=== PATIENT | female | born 1955 | race Caucasian/White ===

== ENCOUNTER → 2020-04-14 12:07 | Outpatient (BNVA) | payer MEDICAID, SELFPAY | PROVIDERS: PCP Internal Medicine; Visit Provider Physician Assistant ==

== ENCOUNTER → 2020-07-09 13:02 | Outpatient (BNVA) | payer MEDICARE, MEDICAID, SELFPAY | PROVIDERS: PCP Internal Medicine; Visit Provider Internal Medicine | DX: Z13.89 Encounter for screening for other disorder (principal) | CPT/HCPCS: Q3014 ==

== ENCOUNTER 2021-01-27 10:02 | Outpatient (REF) | payer MEDICARE, MEDICAID, SELFPAY ==
[2021-01-27 12:25] LABS: Alanine Aminotransferase 24 U/L (0-31); Albumin Level 4.4 g/dL (3.5-5.0); Alkaline Phosphatase 113 U/L (39-117); Anion Gap 15 (12-20); Aspartate Amino Transferase 24 U/L (5-31); Bilirubin Total 0.3 mg/dL (0.0-1.0); Blood Urea Nitrogen 36 mg/dL (9-16); Calcium 9.6 mg/dL (8.4-10.2); Carbon Dioxide 24 mmol/L (22-29); Chloride 108 mmol/L (96-108); Cholesterol 185 mg/dL; Estimated Glomerular Filt Rate 30; Gamma Glutamyl Transpeptidase 78 U/L (7-33); Glucose Random 281 mg/dL (60-115); HDL Cholesterol 47 mg/dL; LDL Cholesterol Calculated 108 mg/dl; Phosphorus 3.1 mg/dL (2.7-4.5); Potassium 4.8 mmol/L (3.3-5.1); Sodium 142 mmol/L (135-145); Total Protein 7.1 g/dL (6.5-8.0); Triglycerides 152 mg/dL
[2021-01-27 12:40] LABS: Estimated Average Glucose 146 mg/dL; Hemoglobin A1C 148.4518 umol/L; Hemoglobin A1c % 6.7 %
[2021-01-27 12:45] LABS: Vitamin D 25-OH Total 26.2 ng/mL (>30)
[2021-01-27 12:46] LABS: Ferritin 1089 ng/mL (10-250); Thyroid Stimulating Hormone 1.17 uIU/mL (0.32-4.0)
[2021-01-29 13:30] LABS: LDL Cholesterol Direct 119 mg/dL (<100)
[2021-01-29 13:41] LABS: Calcium (PTHI) 9.8 mg/dL (8.6-10.4); PTHI 146 pg/mL (14-64)
[2021-01-31 20:03] LABS: Prot Elec - Alpha1 0.3 g/dL (0.2-0.3); Prot Elec - Alpha2 0.9 g/dL (0.5-0.9); Prot Elec - Beta 1 0.4 g/dL (0.4-0.6); Prot Elec - Beta 2 0.4 g/dL (0.2-0.5); Prot Elec - Gamma 0.9 g/dL (0.8-1.7); Prot Elec - Total Protein 6.9 g/dL (6.1-8.1)
[2021-02-01 16:25] LABS: Transglutaminase IgA <1.0 U/mL
== END 2021-01-27 10:03 | disposition home or self-care (01) ==
LOC: HO.LAB 10:02
PROVIDERS: Physician Assistant; PCP Internal Medicine; Visit Provider Internal Medicine
DX: E11.65 Type 2 diabetes mellitus with hyperglycemia (principal); E78.5 Hyperlipidemia, unspecified; E83.52 Hypercalcemia; E55.9 Vitamin D deficiency, unspecified; D64.9 Anemia, unspecified; K59.09 Other constipation; I10 Essential (primary) hypertension; R19.7 Diarrhea, unspecified; Z79.899 Other long term (current) drug therapy; Z79.4 Long term (current) use of insulin
CPT/HCPCS: 36415; 80053; 80061; 82043; 82306; 82728; 82947; 82977; 83036; 83516; 83721; 83970; 84100; 84165; 84443; 99212

== ENCOUNTER 2021-01-29 10:08 | Outpatient (REF) | payer MEDICARE, MEDICAID, SELFPAY ==
--- NOTE | ~2021-01-29 | MM_ITS ---
EXAMINATION: MM SCREENING DIGITAL BREAST TOMOSYNTHESIS, BILATERAL CLINICAL INFORMATION: Screening. Asymptomatic. The lifetime risk of breast cancer based on the Tyrer-Cuzick Model is 4%. COMPARISON: Mammography: 01/08/2019, 12/26/2017, 11/18/2016 TECHNIQUE: Digital breast tomosynthesis is performed in both the craniocaudal and mediolateral oblique views along with computer-aided detection (CAD). Synthesized 2D images are generated from the tomosynthesis. Additional right CC view is provided. FINDINGS: There are scattered areas of fibroglandular density (ACR BI-RADS breast composition Category b). There are no significant masses, abnormal calcifications, or other abnormalities. Parenchymal pattern is similar to prior studies. No developing density. No significant changes. The axilla and skin contours are unremarkable. MM/MM tomosynthesis screening BI IMPRESSION: No mammographic evidence of malignancy. ASSESSMENT: BI-RADS 1: Negative RECOMMENDATION: Routine annual mammography screening. This patient's information was entered into a reminder system with a target due date for their next mammogram.
== END 2021-01-29 10:09 | disposition home or self-care (01) ==
LOC: HO.MAMMO 10:08
PROVIDERS: Visit Provider Internal Medicine
DX: Z12.31 Encounter for screening mammogram for malignant neoplasm of breast (principal)
CPT/HCPCS: 77063; 77067

== ENCOUNTER 2021-04-28 07:12 | Outpatient (REF) | payer MEDICARE, MEDICAID, SELFPAY ==
[2021-04-28 08:58] LABS: Estimated Average Glucose 137 mg/dL; Hemoglobin A1c % 6.4 %
[2021-04-28 09:06] LABS: Alanine Aminotransferase 14 U/L (0-31); Albumin Level 4.3 g/dL (3.5-5.0); Alkaline Phosphatase 120 U/L (39-117); Anion Gap 13 (12-20); Aspartate Amino Transferase 17 U/L (5-31); Blood Urea Nitrogen 36 mg/dL (9-16); Calcium 9.8 mg/dL (8.4-10.2); Carbon Dioxide 26 mmol/L (22-29); Chloride 109 mmol/L (96-108); Cholesterol 183 mg/dL; Estimated Glomerular Filt Rate 35; Glucose Random 148 mg/dL (60-115); HDL Cholesterol 42 mg/dL; LDL Cholesterol Calculated 105 mg/dl; Phosphorus 3.7 mg/dL (2.7-4.5); Potassium 5.2 mmol/L (3.3-5.1); Sodium 143 mmol/L (135-145); Total Protein 6.9 g/dL (6.5-8.0); Triglycerides 184 mg/dL
[2021-04-28 09:14] LABS: Bilirubin Total 0.4 mg/dL (0.0-1.0)
[2021-04-28 09:38] LABS: Vitamin D 25-OH Total 28.5 ng/mL (>30)
[2021-04-28 09:41] LABS: Microalbum/Creatinine Ratio Ur 74.3 ug/mg cr
[2021-04-29 15:07] LABS: Calcium (PTHI) 9.8 mg/dL (8.6-10.4); PTHI 172 pg/mL (14-64)
[2021-04-30 08:27] LABS: LDL Cholesterol Direct 109 mg/dL (<100)
== END 2021-04-28 07:13 | disposition home or self-care (01) ==
LOC: HO.LAB 07:12
PROVIDERS: PCP Internal Medicine; Visit Provider Internal Medicine
DX: E11.65 Type 2 diabetes mellitus with hyperglycemia (principal); E83.52 Hypercalcemia; Z79.4 Long term (current) use of insulin
CPT/HCPCS: 36415; 80053; 80061; 82043; 82306; 83036; 83721; 83970; 84100

== ENCOUNTER 2021-05-01 09:13 | Outpatient (REF) | payer MEDICARE, MEDICAID, SELFPAY ==
[2021-05-01 10:44] LABS: Creatinine Urine 72.48 mg/dL
[2021-05-01 10:45] LABS: Anion Gap 12 (12-20); Blood Urea Nitrogen 28 mg/dL (9-16); Calcium 10.3 mg/dL (8.4-10.2); Carbon Dioxide 29 mmol/L (22-29); Chloride 108 mmol/L (96-108); Estimated Glomerular Filt Rate 39; Glucose Random 142 mg/dL (60-115); Potassium 5.6 mmol/L (3.3-5.1); Sodium 143 mmol/L (135-145)
== END 2021-05-01 09:14 | disposition home or self-care (01) ==
LOC: HO.LAB 09:13
PROVIDERS: PCP Internal Medicine; Visit Provider Internal Medicine
DX: E11.65 Type 2 diabetes mellitus with hyperglycemia (principal); Z79.4 Long term (current) use of insulin
CPT/HCPCS: 36415; 80048

== ENCOUNTER 2021-05-06 12:01 | Emergency (ER) | payer MEDICARE, MEDICAID, SELFPAY ==
[2021-05-06 12:26] VITALS: BP 159/66; PULSE 85; RESP 17; TEMP 36.4; O2SAT 99; BMI 41.9
--- NOTE | 2021-05-06 12:33 | ECG_ITS ---
Test Reason : HIGH POTASSIUM Blood Pressure : / mmHG Vent. Rate : 078 BPM Atrial Rate : 078 BPM P-R Int : 158 ms QRS Dur : 072 ms QT Int : 364 ms P-R-T Axes : 025 054 027 degrees QTc Int : 414 ms Normal sinus rhythm Normal ECG When compared with ECG of 01-JUL-2018 11:43, No significant change was found Referred By: Generic ED Physician Electronically Signed By:VU MALLOY
[2021-05-06 13:02] LABS: Anion Gap 12 (12-20); Blood Urea Nitrogen 36 mg/dL (9-16); Calcium 9.8 mg/dL (8.4-10.2); Carbon Dioxide 26 mmol/L (22-29); Chloride 109 mmol/L (96-108); Creatinine Clr Calc Pharmacy 32.6; Estimated Glomerular Filt Rate 31; Glucose Random 152 mg/dL (60-115); Potassium 5.4 mmol/L (3.3-5.1); Sodium 142 mmol/L (135-145)
[2021-05-06 17:21] VITALS: BP 150/64; PULSE 72; RESP 16; O2SAT 96
--- NOTE | 2021-05-06 17:22 | ED_ITS ---
HPI - Recheck/Abnormal Lab/Rx General Chief Complaint: Recheck/Abnormal Lab/Rx Stated Complaint: abnormal labs Time Seen by Provider: 05/06/21 15:35 Source: patient Mode of arrival: ambulatory Limitations: no limitations History of Present Illness HPI narrative: Patient diabetic with CKD creatinine in the range of 1.5 been drinking lemon juice every day noticed to have potassium of 5.4 by diabetic specialist hence came to the ER patient denies any complain little constipated last bowel movement was 2 days ago Related Data Home Medications Medication Instructions Recorded Confirmed albuterol sulfate 90 mcg/actuation 2 puff INHALATION Q4-6H PRN 12/24/19 01/27/21 aerosol inhaler (Ventolin HFA) aspirin 81 mg tablet 81 mg PO DAILY 12/24/19 01/27/21 atorvastatin 80 mg tablet 80 mg PO BEDTIME 12/24/19 01/27/21 ferrous sulfate 325 mg (65 mg 325 mg PO TID 12/24/19 01/27/21 iron) tablet furosemide 20 mg tablet 20 mg PO QAM 12/24/19 01/27/21 metoprolol tartrate 25 mg tablet 25 mg PO BID 12/24/19 01/27/21 omeprazole 20 mg tablet,delayed 20 mg PO DAILY 12/24/19 01/27/21 release alcohol swabs 1 pad TOPICAL TID 07/09/20 01/27/21 fluticasone propionate 110 1 puff INHALATION BID PRN 07/09/20 01/27/21 mcg/actuation HFA aerosol inhaler (Flovent HFA) loratadine 10 mg tablet 10 mg PO QAM 07/09/20 01/27/21 pen needle, diabetic 32 gauge x #50 ea 07/09/20 01/27/21/32 sodium zirconium cyclosilicate 5 5 g PO 2XW 07/09/20 01/27/21 gram oral powder packet clopidogrel 75 mg tablet 75 mg PO DAILY 01/27/21 01/27/21 insulin glargine 100 unit/mL (3 60 unit SUBCUT DAILY 01/27/21 01/27/21 mL) subcutaneous pen (Lantus Solostar U-100 Insulin) insulin lispro 100 unit/mL See Rx Instructions SUBCUT 01/27/21 01/27/21 subcutaneous pen (Humalog KwikPen .COMPLEX ml (U-100) Insulin) Previous Rx's Medication Instructions Recorded bisacodyl 5 mg tablet,delayed 10 mg PO ONCE 1 Days #2 tab 04/14/20 release (Dulcolax (bisacodyl)) pioglitazone 15 mg tablet 15 mg PO DAILY 30 Days #30 tab 09/07/20 docusate sodium 100 mg capsule 200 mg PO BEDTIME #60 cap 10/08/20 (Colace) blood-glucose meter (FreeStyle #1 ea 01/04/21 Gifford Lite) cholecalciferol (vitamin D3) 25 25 mcg PO DAILY 30 Days #30 cap 02/01/21 mcg (1,000 unit) capsule dulaglutide 1.5 mg/0.5 mL 1.5 mg (0.5 mL) SUBCUT QWEEK 30 02/09/21 subcutaneous pen injector Days #2.5 ml (Trulicity) blood sugar diagnostic (FreeStyle #100 ea 02/16/21 Lite Strips) lancets 33 gauge (TRUEplus Lancets) #100 ea 02/16/21 Allergies Allergy/AdvReac Type Severity Reaction Status Date / Time morphine [Morphine] Allergy Intermediate TACHYCARDIA, Verified 01/27/21 10:12 ANXIETY oxycodone [Percocet] Allergy Intermediate Palpitation Verified 01/27/21 10:12 s prednisone [PREDNISONE] AdvReac Intermediate ANXIETY Verified 01/27/21 10:12 Review of Systems Review of Systems: Yes all other systems are reviewed and are negative [facility] Past Medical History Medical History Anemia Angina pectoris Asthma CAD (coronary artery disease) Chronic constipation Diabetes GERD (gastroesophageal reflux disease) HLD (hyperlipidemia) HTN (hypertension) HTN (hypertension) Hypercalcemia On beta anurag at home Sleep apnea T2DM (type 2 diabetes mellitus) Vitamin D deficiency Surgical History H/O colonoscopy History of esophagogastroduodenoscopy (EGD) Hx of cholecystectomy Hx of heart artery stent Family History Family History Father Liver problem Mother Diabetes Obesity Social History Social History Household Members Other:: With Alcohol intake: never Patient Tobacco Use Status: Never used Tobacco Advance Directives: No Advance Directives Information Provided: No Current occupational status: disabled Physical Exam Vital Signs: Vital Signs: Last Vital Signs Temp 97.6 F 05/06/21 12:26 Pulse 72 05/06/21 17:21 Resp 16 05/06/21 17:21 BP 150/64 H 05/06/21 17:21 Pulse Ox 96 05/06/21 17:21 BMI result Body Mass Index 41.9 Appearance: Alert. Oriented X3. No acute distress. ENT: Pharynx normal. Oral Mucosa moist Neck: Normal inspection. Neck supple. CVS: Normal heart rate and rhythm. Pulses normal. Respiratory: No respiratory distress. Equal air entry bilateral, no wheezing/rales/rhonchi Abdomen: Soft and nontender. Bowel sounds are present, no mass palpable, no CVA tenderness Skin: Skin warm and dry. Normal skin color. Normal skin turgor. Extremities: No lower extremity edema. No calf tenderness Neuro: Oriented X 3. No motor deficit. No sensory deficit.No cerebellar signs , cranial nerves II-XII intact MDM - Recheck/Abnormal Lab/Rx MDM Narrative Medical decision making narrative: Patient with CKD drinking lemon juice every day likely the cause of hyperkalemia without any EKG changes will give her Kayexalate advised not to eat or drink any food containing high potassium Lab Data Attestation: I reviewed the patient's lab results. Result diagrams: 05/06/21 12:36 Labs: Lab Results 05/06/21 Range/Units 12:36 Sodium 142 (135-145) mmol/L Potassium 5.4 H (3.3-5.1) mmol/L Chloride 109 H (96-108) mmol/L Carbon Dioxide 26 (22-29) mmol/L Anion Gap 12 (12-20) BUN 36 H (9-16) mg/dL Creatinine 1.65 H (0.5-1.4) mg/dL Estim Creat Clear Calc 32.6 Estimated GFR 31 Random Glucose 152 H (60-115) mg/dL Calcium 9.8 (8.4-10.2) mg/dL ECG Data Attestation: I personally reviewed and interpreted this ECG as follows: Interpretation: Normal sinus rhythm heart rate 78 beats per minute normal intervals normal axis impression normal EKG Discharge Plan Discharge Clinical Impression: Acute hyperkalemia Patient Disposition: Home, Self-Care Instructions: Potassium Content of Foods List (ED), Hyperkalemia (ED) Additional Instructions: Stop drinking Lemon juice and food containing high potassium And follow up with your PCP on 05/10 for repeat potassium check Prescriptions: No Action pioglitazone 15 mg tablet 15 mg PO DAILY 30 Days Qty: 30 11RF docusate sodium [Colace] 100 mg capsule 200 mg PO BEDTIME Qty: 60 5RF (DME) blood-glucose meter [FreeStyle Gifford Lite] Kit See Rx Instructions .Route Qty: 1 0RF Rx Instructions: As directed cholecalciferol (vitamin D3) 25 mcg (1,000 unit) capsule 25 mcg PO DAILY 30 Days Qty: 30 11RF Trulicity 1.5 mg/0.5 mL pen injector 1.5 mg subcut QWEEK 30 Days Qty: 2.5 11RF (DME) FreeStyle Lite Strips Strip See Rx Instructions .Route Qty: 100 11RF Rx Instructions: As directed to test blood sugar 3-4 times a day (DME) lancets [TRUEplus Lancets] 33 gauge misc See Rx Instructions .Route Qty: 100 11RF Rx Instructions: As directed to test blood sugar 3-4 times a day atorvastatin 80 mg Tablet 80 mg PO BEDTIME 0RF ferrous sulfate 325 mg (65 mg iron) Tablet 325 mg PO TID 0RF aspirin 81 mg Tablet 81 mg PO DAILY 0RF furosemide 20 mg Tablet 20 mg PO QAM 0RF albuterol sulfate [Ventolin HFA] 90 mcg/actuation Hfa Aerosol Inhaler 2 puff INHALATION Q4-6H PRN (Reason: Shortness Of Breath) 0RF metoprolol tartrate 25 mg Tablet 25 mg PO BID 0RF omeprazole 20 mg Tablet,Delayed Release (Dr/Ec) 20 mg PO DAILY 0RF Flovent HFA 110 mcg/actuation HFA aerosol inhaler 1 puff INHALATION BID PRN0RF (DME) pen needle, diabetic 32 gauge x 5/32 needle See Rx Instructions ea .ROUTE QID Qty: 50 0RF Rx Instructions: As directed alcohol swabs Pads, Medicated 1 pad topical TID 0RF Lokelma 5 gram powder in packet 5 g PO 2XW 0RF loratadine 10 mg tablet 10 mg PO QAM 0RF bisacodyl [Dulcolax (bisacodyl)] 5 mg tablet,delayed release (DR/EC) 10 mg PO ONCE 1 Days Qty: 2 0RF Rx Instructions: Take 2 tablets by mouth at 12:00pm the day before your procedure. clopidogrel 75 mg tablet 75 mg PO DAILY 0RF Lantus Solostar U-100 Insulin 100 unit/mL (3 mL) insulin pen 60 unit subcut DAILY 0RF insulin lispro [Humalog KwikPen Insulin] 100 unit/mL insulin pen See Rx Instructions subcut .COMPLEX 0RF Rx Instructions: 12 Units subcut before meals; Interventions: ED Discharge Assessment Last Done: 05/06/21 18:04 Discharge Date/Time: 05/06/21 18:04
--- NOTE | 2021-05-06 17:23 | PC.NURSE ---
20 ga iv est r ac pt is in nsr in lead 2
[2021-05-06] MEDS: Sodium Polystyrene Sulfon/Sorb 15 GM/60 ML ORAL.SUSP 30 GM PO (17:51)
== END 2021-05-06 18:04 | disposition home or self-care (01) ==
PROVIDERS: Emergency Provider Internal Medicine; PCP Internal Medicine
DX: E87.5 Hyperkalemia (principal); E11.22 Type 2 diabetes mellitus with diabetic chronic kidney disease; I12.9 Hypertensive chronic kidney disease with stage 1 through stage 4 chronic kidney disease, or unspecified chronic kidney disease; N18.9 Chronic kidney disease, unspecified; E78.5 Hyperlipidemia, unspecified; Z79.02 Long term (current) use of antithrombotics/antiplatelets; Z79.4 Long term (current) use of insulin
CPT/HCPCS: 36415; 80048; 93005; 99283; 99284

== ENCOUNTER 2021-08-19 14:34 | Outpatient (REF) | payer OTHER, MEDICAID, SELFPAY ==
[2021-08-19 15:24] LABS: Hematocrit 35.6 % (37.0-47.0); Hemoglobin 11.4 g/dl (12.0-16.0); Mean Corpuscular Hemoglobin 29.6 pg (27.0-33.0); Mean Corpuscular Volume 92.5 fL (80.0-98.0); Mean Platelet Volume 11.1 fL (9.4-12.3); Platelet Count 231 X10*3/uL (160-400); Red Blood Count 3.85 X10*6/uL (4.20-5.50); Red Cell Distribution Width 12.8 % (11.0-16.0); White Blood Count 7.1 X10*3/uL (4.8-10.8)
[2021-08-19 15:50] LABS: Alanine Aminotransferase 21 U/L (0-31); Albumin Level 4.3 g/dL (3.5-5.0); Alkaline Phosphatase 123 U/L (39-117); Anion Gap 14 (12-20); Aspartate Amino Transferase 22 U/L (5-31); Bilirubin Total 0.2 mg/dL (0.0-1.0); Blood Urea Nitrogen 38 mg/dL (9-16); Calcium 9.6 mg/dL (8.4-10.2); Carbon Dioxide 27 mmol/L (22-29); Chloride 109 mmol/L (96-108); Estimated Glomerular Filt Rate 29; Glucose Random 76 mg/dL (60-115); Potassium 4.7 mmol/L (3.3-5.1); Sodium 145 mmol/L (135-145)
[2021-08-19 15:51] LABS: Creatinine Urine 67.84 mg/dL; Total Protein Urine Random < 7 mg/dL (<12)
[2021-08-20 13:56] LABS: Calcium (PTHI) 9.9 mg/dL (8.6-10.4); PTHI 191 pg/mL (16-77)
== END 2021-08-19 14:35 | disposition home or self-care (01) ==
LOC: HO.LAB 14:34
PROVIDERS: PCP Internal Medicine; Visit Provider Internal Medicine Hypertension Specialist
DX: N18.32 Chronic kidney disease, stage 3b (principal); E11.22 Type 2 diabetes mellitus with diabetic chronic kidney disease
CPT/HCPCS: 36415; 80053; 83970; 84156; 85027

== ENCOUNTER → 2021-08-23 14:21 | Outpatient (BNVA) | payer MEDICARE, MEDICAID, SELFPAY | PROVIDERS: PCP Internal Medicine; Visit Provider Internal Medicine | DX: E11.65 Type 2 diabetes mellitus with hyperglycemia (principal); E78.5 Hyperlipidemia, unspecified; I10 Essential (primary) hypertension; E21.3 Hyperparathyroidism, unspecified; E55.9 Vitamin D deficiency, unspecified; Z79.4 Long term (current) use of insulin | CPT/HCPCS: Q3014 ==

== ENCOUNTER 2021-08-25 14:28 | Outpatient (REF) | payer MEDICARE, SELFPAY ==
[2021-08-25 15:48] LABS: Estimated Average Glucose 151 mg/dL; Hemoglobin A1c % 6.9 %
[2021-08-25 15:50] LABS: Alanine Aminotransferase 19 U/L (0-31); Albumin Level 4.6 g/dL (3.5-5.0); Alkaline Phosphatase 132 U/L (39-117); Anion Gap 11 (12-20); Aspartate Amino Transferase 20 U/L (5-31); Bilirubin Total 0.3 mg/dL (0.0-1.0); Blood Urea Nitrogen 43 mg/dL (9-16); Calcium 10.1 mg/dL (8.4-10.2); Carbon Dioxide 30 mmol/L (22-29); Chloride 109 mmol/L (96-108); Cholesterol 191 mg/dL; Estimated Glomerular Filt Rate 31; HDL Cholesterol 47 mg/dL; LDL Cholesterol Calculated 102 mg/dl; Phosphorus 3.7 mg/dL (2.7-4.5); Sodium 145 mmol/L (135-145); Total Protein 7.3 g/dL (6.5-8.0); Triglycerides 211 mg/dL
[2021-08-25 16:03] LABS: Microalbum/Creatinine Ratio Ur 61.6 ug/mg cr
[2021-08-25 16:04] LABS: Vitamin D 25-OH Total 32.5 ng/mL (>30)
[2021-08-25 16:06] LABS: Glucose Random 58 mg/dL (60-115)
[2021-08-26 15:36] LABS: Calcium (PTHI) 10.3 mg/dL (8.6-10.4); PTHI 136 pg/mL (16-77)
[2021-08-27 08:17] LABS: LDL Cholesterol Direct 108 mg/dL (<100)
[2021-08-31 05:47] LABS: Fructosamine 266 umol/L (205-285)
== END 2021-08-25 14:29 | disposition home or self-care (01) ==
LOC: HO.LAB 14:28
PROVIDERS: PCP Internal Medicine; Visit Provider Internal Medicine
DX: E21.3 Hyperparathyroidism, unspecified (principal); E11.65 Type 2 diabetes mellitus with hyperglycemia; E55.9 Vitamin D deficiency, unspecified; Z79.4 Long term (current) use of insulin
CPT/HCPCS: 36415; 80053; 80061; 82043; 82306; 82985; 83036; 83721; 83970; 84100

== ENCOUNTER 2021-08-30 17:42 | Outpatient (REF) | payer MEDICARE, SELFPAY ==
[2021-09-01 17:41] LABS: Calcium, 24 Hr Urine 7 mg/24 h; Calcium/Creatinine Ratio 13 mg/g creat (30-275); Creatinine 24Hr Urine 0.56 g/24 h (0.50-2.15)
== END 2021-08-30 17:43 | disposition home or self-care (01) ==
LOC: HO.LNP 17:42
PROVIDERS: Visit Provider Internal Medicine
DX: E21.3 Hyperparathyroidism, unspecified (principal)
CPT/HCPCS: 82340

== ENCOUNTER 2021-09-29 14:20 | Outpatient (REF) | payer MEDICARE, SELFPAY ==
--- NOTE | ~2021-09-29 | XR_ITS ---
EXAMINATION: XR SHOULDER, LEFT CLINICAL INFORMATION: Pain COMPARISON: None TECHNIQUE: AP external rotation, Grashey, scapular Y, and axillary views of the left shoulder. FINDINGS: There is no visible acute fracture or dislocation. The glenohumeral and AC joint space is maintained; however, there is periarticular spurring along the left AC joint. The soft tissues are normal. XR/XR shoulder LT min 2V IMPRESSION: Mild degenerative changes left AC joint. No visible acute fracture or dislocation seen.
== END 2021-09-29 14:21 | disposition home or self-care (01) ==
LOC: HO.XRAY 14:20
PROVIDERS: Absent Provider Internal Medicine; PCP Internal Medicine; Visit Provider Family Medicine
DX: M25.512 Pain in left shoulder (principal)
CPT/HCPCS: 73030

== ENCOUNTER → 2021-10-06 15:05 | Outpatient (BNVA) | payer MEDICARE, SELFPAY | PROVIDERS: PCP Internal Medicine; Visit Provider Registered Nurse Diabetes Educator | DX: E11.65 Type 2 diabetes mellitus with hyperglycemia (principal); Z79.4 Long term (current) use of insulin | CPT/HCPCS: 99211 ==

== ENCOUNTER → 2021-11-01 08:21 | Outpatient (BNVA) | payer MEDICARE, SELFPAY | PROVIDERS: PCP Internal Medicine; Referring Provider Internal Medicine; Visit Provider Physician Assistant | DX: K59.09 Other constipation (principal); R19.5 Other fecal abnormalities; K21.9 Gastro-esophageal reflux disease without esophagitis; E66.3 Overweight; I25.2 Old myocardial infarction; Z68.39 Body mass index [BMI] 39.0-39.9, adult; Z78.9 Other specified health status; Z90.49 Acquired absence of other specified parts of digestive tract; Z95.5 Presence of coronary angioplasty implant and graft | CPT/HCPCS: 99212; Q3014 ==

== ENCOUNTER → 2021-11-03 14:02 | Outpatient (BNVA) | payer MEDICARE, MEDICAID, SELFPAY | PROVIDERS: PCP Internal Medicine; Referring Provider Internal Medicine; Visit Provider Internal Medicine | DX: I25.10 Atherosclerotic heart disease of native coronary artery without angina pectoris (principal); I35.0 Nonrheumatic aortic (valve) stenosis; I10 Essential (primary) hypertension; E11.65 Type 2 diabetes mellitus with hyperglycemia; Z79.4 Long term (current) use of insulin | CPT/HCPCS: 93005; 99202 ==

== ENCOUNTER → 2021-11-29 14:05 | Outpatient (BNVA) | payer MEDICARE, MEDICAID, SELFPAY | PROVIDERS: PCP Internal Medicine; Visit Provider Internal Medicine | DX: E11.65 Type 2 diabetes mellitus with hyperglycemia (principal); Z79.4 Long term (current) use of insulin; E78.5 Hyperlipidemia, unspecified; I10 Essential (primary) hypertension; E21.3 Hyperparathyroidism, unspecified; E55.9 Vitamin D deficiency, unspecified | CPT/HCPCS: Q3014 ==

== ENCOUNTER → 2022-01-04 12:22 | Outpatient (REF) | payer OTHER, MEDICAID, SELFPAY ==
--- NOTE | 2022-01-04 12:35 | CA_ITS ---
Transthoracic Echocardiogram Patient (Last, First, Middle): Jayne Lane, Gender: Female Date of : 1955 Age: 66 Procedure Date: 01/04/2022 Procedure Type: Transthoracic Echocardiogram Location: OP Height: 152.4 cm Weight: 81.65 kg BSA: 1.78 m2 Heart Rate: bpm BP: 138 / 85 mmHg Well Treatment Offsider: TO Referring MD: Rohan Singh MD Industrial/Organizational Psychologist: Ger Anderson MD Symptoms: I35.0 - Nonrheumatic aortic (valve) stenosis Study Quality: Technically Difficult/Contrast ECG Rhythm: Sinus Conclusions: - 1. Normal LV systolic function with LVEF of 60-65%, with impaired relaxation pattern 2. Mild aortic stenosis Findings Procedure Information Contrast agent, definity, is being given per protocol without apparent complications. Left Ventricle Normal left ventricular size, thickness, and systolic function. The visually estimated ejection fraction is between 60-65%. Spectral Doppler is indicative of an impaired relaxation filling pattern. E/E prime ratio is between 8 and 15 consistent with indeterminate filling pressures. Right Ventricle The right ventricle was not well visualized. Atria The left atrium is normal in size. Interatrial shunt cannot be excluded. The right atrium was not well visualized. Aortic Valve The aortic valve was not well visualized. There is mild aortic valve stenosis. The peak aortic gradient is 18 mmHg.The mean gradient is 10 mmHg. The aortic valve area is 1.53 cm2. Mitral Valve The mitral valve was not well visualized. There is trace mitral valve regurgitation. There is no mitral valve stenosis. Pulmonic Valve The pulmonic valve was not well visualized. Tricuspid Valve The tricuspid valve was not well visualized. Normal right atrial pressure. Great Vessels The aorta was not well visualized. The pulmonary artery was not well visualized. Venous The inferior vena cava is normal in size and collapses greater than 50% with inspiration. Pericardium/Pleural The pericardium was not well visualized. Prior Study Comparison No significant change compared to prior study dated: 11/23/2018. Measurements 2D Linear Measurements IVSd: 1.05 0.6-0.9/0.6-1.0 cm LVIDd: 3.65 3.9-5.3/4.2-5.9 cm LVIDd Index: 2.05 2.4-3.2/2.2-3.1 cm/m2 LVIDs: 2.68 2.0-3.6 cm LVPWd: 0.93 0.7-1.1 cm LA Diam: 2.80 2.7-3.8/3.0-4.0 cm LAIDs Index: 1.57 1.5-2.3 cm/m2 LV Mass: 135.22 67-162/88-224 g LV Mass Index: 75.96 43-95/49-115 g/m2 LVOT Diam: 2.00 3.0+(-)1.3 cm 2D Systolic Function EF 4C: 65.90 >55% Mitral Valve MV Pk E: 0.84 MV PK A: 1.00 MV Decel Time: 248.00 E/A: 0.80 E'Lateral: 7.94 E'Medial: 4.46 E/E' Med: 18.90 E/E' Lat: 10.60 PHT: 73.00 MVA PHT: 3.01 Decel Runnels: 3.40 Aortic Valve AoV Pk Fausto: 2.14 AoV Mn Fausto: 1.44 AoV VTI: 0.46 AoV Pk Grad: 18.00 Aov Mn Grad: 10.00 DAV Cont.VTI: 1.53 LVOT LVOT Pk Fausto: 0.89 LVOT Mn Fausto: 0.65 LVOT VTI: 0.22 LVOT Pk Grad: 3.00 LVOT Mn Grad: 2.00 LVOT Diam: 2.00 LVOT Area: 3.14 Diastolic Function MV Pk E: 0.84 MV Pk A: 1.00 E/A: 0.80 E'Medial: 4.46 E/E' Med: 18.90 E' Laterial: 7.94 E/E' Lat: 10.60 Right Ventricle TAPSE (mm): 20.30 TVS' Fausto: 9.57 Tricuspid Valve RA Press: 3.00 Great Vessels Aorta Sinus of Valsalva: 2.78 2.0-3.5 cm Ao Asc: 2.50 2.1-3.4 cm Updated in Other Vendor System with Status of Final Ger Anderson MD electronically signed on 01/05/2022 9:04:21 AM with status of Final
== END ==
LOC: HO.CARD 12:22
PROVIDERS: PCP Internal Medicine; Visit Provider Internal Medicine
DX: I35.0 Nonrheumatic aortic (valve) stenosis (principal)
CPT/HCPCS: 93306; Q9957

== ENCOUNTER 2022-01-17 14:43 | Outpatient (REF) | payer OTHER, SELFPAY ==
[2022-01-17 16:00] LABS: Anion Gap 18 (12-20); Blood Urea Nitrogen 34 mg/dL (9-16); Calcium 10.1 mg/dL (8.4-10.2); Carbon Dioxide 25 mmol/L (22-29); Chloride 106 mmol/L (96-108); Estimated Glomerular Filt Rate 34; Glucose Random 61 mg/dL (60-115); Sodium 144 mmol/L (135-145)
[2022-01-17 18:43] LABS: CT PCR NOT DETECTED (Not Detect.); NG PCR NOT DETECTED (Not Detect.)
== END 2022-01-17 14:44 | disposition home or self-care (01) ==
LOC: HO.LAB 14:43
PROVIDERS: Advanced Practice Midwife; PCP Internal Medicine; Visit Provider Internal Medicine Hypertension Specialist
DX: E87.5 Hyperkalemia (principal); N18.30 Chronic kidney disease, stage 3 unspecified; Z11.3 Encounter for screening for infections with a predominantly sexual mode of transmission
CPT/HCPCS: 36415; 80048; 87491; 87591

== ENCOUNTER 2022-01-17 16:22 | Outpatient (REF) | payer OTHER, SELFPAY ==
[2022-01-20 07:31] LABS: HPV mRNA E6/E7 rflx Not Detected (Not Detected)
== END 2022-01-17 16:23 | disposition home or self-care (01) ==
LOC: HO.LNP 16:22
PROVIDERS: Visit Provider Advanced Practice Midwife
DX: Z01.419 Encounter for gynecological examination (general) (routine) without abnormal findings (principal)
CPT/HCPCS: 87624; 88142

== ENCOUNTER → 2022-01-27 14:27 | Outpatient (BNVA) | payer OTHER, SELFPAY | PROVIDERS: PCP Internal Medicine; Referring Provider Internal Medicine; Visit Provider Internal Medicine | DX: I25.10 Atherosclerotic heart disease of native coronary artery without angina pectoris (principal); I35.0 Nonrheumatic aortic (valve) stenosis; I10 Essential (primary) hypertension; E11.65 Type 2 diabetes mellitus with hyperglycemia; Z79.4 Long term (current) use of insulin | CPT/HCPCS: 99212 ==

== ENCOUNTER 2022-02-08 14:25 | Emergency (ER) | payer OTHER, SELFPAY ==
--- NOTE | ~2022-02-08 | XR_ITS ---
EXAMINATION: XR SHOULDER, LEFT CLINICAL INFORMATION: Pain. COMPARISON: None TECHNIQUE: Three views of the left shoulder. FINDINGS: The bones and soft tissues are normal. No fracture. Glenohumeral and acromioclavicular alignment is anatomic with normal joint space. No abnormal soft tissue calcifications. XR/XR shoulder LT min 2V IMPRESSION: Normal left shoulder.
[2022-02-08 16:22] VITALS: BP 182/92; PULSE 76; RESP 20; TEMP 35.8; O2SAT 98; BMI 42.2
--- NOTE | 2022-02-08 17:31 | ECG_ITS ---
Test Reason : CHEST PAIN Blood Pressure : / mmHG Vent. Rate : 077 BPM Atrial Rate : 077 BPM P-R Int : 146 ms QRS Dur : 070 ms QT Int : 366 ms P-R-T Axes : 055 048 023 degrees QTc Int : 414 ms Normal sinus rhythm Normal ECG When compared with ECG of 06-MAY-2021 12:38, No significant change was found Referred By: Megan Vora Electronically Signed By:MALORIE SIEGEL MD
[2022-02-08 18:13] LABS: MANUAL DIFF FLAG NO
[2022-02-08 18:30] LABS: Anion Gap 12 (12-20); Blood Urea Nitrogen 38 mg/dL (9-16); Calcium 10.6 mg/dL (8.4-10.2); Carbon Dioxide 29 mmol/L (22-29); Chloride 105 mmol/L (96-108); Creatinine Clr Calc Pharmacy 30.3; Estimated Glomerular Filt Rate 30; Glucose Random 130 mg/dL (60-115); Potassium 5.2 mmol/L (3.3-5.1); Sodium 141 mmol/L (135-145)
[2022-02-08 18:40] LABS: Troponin-I High Sensitivity < 3.5 ng/L (<3.5-17.0)
[2022-02-08 18:49] LABS: Basophils Percent Auto 0.4 % (0-2); Eosinophils Absolute Auto 0.1 X10*3/uL (0.0-0.4); Hemoglobin 12.3 g/dl (12.0-16.0); Imm Gran Abs Auto 0.02 X10*3/uL (0.00-0.03); Imm Gran Pct Auto 0.3 % (0.0-0.4); Lymphocytes Absolute Auto 2.9 X10*3/uL (1.2-4.9); Lymphocytes Percent Auto 41.2 % (20-40); Mean Corpuscular HGB Conc 32.4 g/dl (31.0-35.0); Mean Corpuscular Hemoglobin 29.9 pg (27.0-33.0); Mean Corpuscular Volume 92.2 fL (80.0-98.0); Monocytes Absolute Auto 0.4 X10*3/uL (0.1-1.2); Monocytes Percent Auto 5.7 % (2-11); Neutrophils Absolute Auto 3.5 x10*3/uL (2.0-8.3); Neutrophils Percent Auto 50.4 % (45-73); Platelet Count 250 X10*3/uL (160-400); Red Blood Count 4.12 X10*6/uL (4.20-5.50); Red Cell Distribution Width 12.4 % (11.0-16.0)
--- NOTE | 2022-02-08 20:38 | ED_ITS ---
HPI - Extremity Problem General Chief complaint: Extremity Injury, Upper Stated complaint: Back & Left Arm Pain No Injury Time Seen by Provider: 02/08/22 20:31 Source: patient Mode of arrival: ambulatory Limitations: no limitations History of Present Illness HPI Narrative: 66-year-old female with history of atherosclerotic cardiovascular disease, hypercalcemia, hyperparathyroidism, hypertension, type 2 diabetes, chronic constipation, presents to the emergency department today with a chief complaint of lower back pain and left arm pain X few days . No known triggering event or traumatic injury or blunt trauma. Patient describes as a lower lumbar back pain and pain to neck that radiates to left shoulder that radiates down her arm to her wrist. Denies numbness or tingling. She tells me she has been dealing with these complaints for years and tells me they come and go often. Has not taken any medications at home for this. This is never happened to her before. Denies chest pain, shortness breath, nausea, vomiting, diarrhea, dysuria, hematuria, headache, vision changes, weakness, imbalance, urinary or fecal incontinence, saddle paresthesia, numbness or tingling of the extremities. Has never seen a specialist for back pain before. No hx of back surgeries or IV drug use. Related Data Home Medications Medication Instructions Recorded Confirmed albuterol sulfate 90 mcg/actuation 2 puff inhalation Q4-6H PRN 12/24/19 01/27/22 aerosol inhaler (Ventolin HFA) Shortness Of Breath alcohol swabs 1 pad topical TID 07/09/20 01/27/22 fluticasone propionate 110 1 puff inhalation BID PRN 07/09/20 01/27/22 mcg/actuation HFA aerosol inhaler (Flovent HFA) loratadine 10 mg tablet 10 mg PO QAM 07/09/20 01/27/22 pen needle, diabetic 32 gauge x #50 ea 07/09/20 01/27/2232 sodium zirconium cyclosilicate 5 5 g PO 2XW 07/09/20 01/27/22 gram oral powder packet clopidogrel 75 mg tablet 75 mg PO DAILY 01/27/21 01/27/22 atorvastatin 80 mg tablet (Lipitor) 80 mg PO DAILY 11/01/21 01/27/22 amlodipine 5 mg tablet 5 mg PO DAILY 11/03/21 01/27/22 furosemide 20 mg tablet 20 mg PO DAILY 11/03/21 01/27/22 metoprolol tartrate 50 mg tablet 50 mg PO BID 11/03/21 01/27/22 omeprazole 20 mg capsule,delayed 20 mg PO DAILY 11/03/21 01/27/22 release insulin glargine 100 unit/mL (3 34 unit subcut DAILY 11/29/21 01/27/22 mL) subcutaneous pen (Lantus Solostar U-100 Insulin) insulin lispro 100 unit/mL 12 unit subcut TID 11/29/21 01/27/22 subcutaneous pen (Humalog KwikPen (U-100) Insulin) acetaminophen 500 mg tablet 500 mg PO Q12H PRN 01/28/22 budesonide 90 mcg/actuation breath 2 inh inhalation BID 01/28/22 activated powder inhaler (Pulmicort Flexhaler) cyclobenzaprine 5 mg tablet 5 mg PO TID PRN 01/28/22 ferrous sulfate 325 mg (65 mg 325 mg PO TID 01/28/22 iron) tablet Previous Rx's Medication Instructions Recorded pioglitazone 15 mg tablet 15 mg PO DAILY 30 days #30 tabs 09/07/20 lancets 33 gauge (TRUEplus Lancets) #100 ea 02/16/21 blood-glucose meter (OneTouch #1 ea 06/30/21 Verio Flex Meter) lancets (OneTouch UltraSoft #200 ea 06/30/21 Lancets) docusate sodium 100 mg capsule 200 mg PO BEDTIME #60 caps 11/01/21 (Colace) peg 3350 240 gram-electrolytes 240 ml PO Q10M #4,000 mL 11/01/21 22.72 gram-6.72 g-5.84 g powdr for soln polyethylene glycol 3350 17 17 g PO DAILY #510 grams 11/01/21 gram/dose oral powder (Miralax) blood sugar diagnostic (OneTouch #100 ea 01/05/22 Verio test strips) cholecalciferol (vitamin D3) 25 25 mcg PO DAILY 30 days #30 caps 01/12/22 mcg (1,000 unit) capsule ezetimibe 10 mg tablet (Zetia) 10 mg PO DAILY #90 tabs 01/30/22 dulaglutide 1.5 mg/0.5 mL 1.5 mg (0.5 mL) subcut QWEEK 30 02/07/22 subcutaneous pen injector days #2.5 mL (Trulicity) diclofenac sodium 1 % topical gel 2 g topical QID #100 grams 02/08/22 (Voltaren Arthritis Pain) lidocaine 5 % topical patch 1 patch topical DAILY PRN pain #15 02/08/22 ea Allergies Allergy/AdvReac Type Severity Reaction Status Date / Time morphine [Morphine] Allergy Intermediate TACHYCARDIA, Verified 01/27/22 14:30 ANXIETY oxycodone [Percocet] Allergy Intermediate Palpitation Verified 01/27/22 14:30 s prednisone [PREDNISONE] AdvReac Intermediate ANXIETY Verified 01/27/22 14:30 Review of Systems Review of Systems: Constitutional : No Weight loss, No Fever, No Chills, No Fatigue, No Malaise ENT/Mouth : No sore throat, No Rhinorrhea Eyes: No Eye Pain, No Swelling, No Redness Cardiovascular : No Chest Pain, No SOB, No Dyspnea on Exertion, No Orthopnea, No Edema, No Palpitations Respiratory : No Cough, No Sputum, No Wheezing Gastrointestinal : No Nausea, No Vomiting, No Diarrhea, No Constipation, No abdominal Pain, No Hematochezia, No Melena Genitourinary : No Dysuria, No Urinary Frequency, No Hematuria, Musculoskeletal : No joint pain, No Myalgias, No Joint Swelling + lumbar back pain + left shoulder pain, - parasethesias, - tingling Skin : No Skin Lesions, No rash Neuro : No Weakness, No Numbness, No Dizziness, No Headache Psych : No Anxiety/Panic, No Depression All other systems reviewed and are negative PMFSH Past Medical History Attestation statement: The following information was validated with the patient. Source: old records reviewed and nursing notes reviewed Medical History Anemia Angina pectoris Asthma CAD (coronary artery disease) Chronic constipation Diabetes GERD (gastroesophageal reflux disease) HLD (hyperlipidemia) HTN (hypertension) HTN (hypertension) Hypercalcemia Hyperparathyroidism On beta anurag at home Sleep apnea T2DM (type 2 diabetes mellitus) Vitamin D deficiency Surgical History H/O colonoscopy History of esophagogastroduodenoscopy (EGD) Hx of cholecystectomy Hx of heart artery stent Family History Family History Father Liver problem Mother Diabetes Obesity Social History Social History Household Members Other:: With Housing: House Alcohol intake: never Patient Tobacco Use Status: Never used Tobacco Advance Directives: No Current occupational status: disabled Sexual orientation: Straight/Heterosexual Gender identity: Female Physical Exam Vital Signs: Vital Signs: Last Vital Signs Temp 96.5 F L 02/08/22 16:22 Pulse 77 02/08/22 20:52 Resp 16 02/08/22 20:52 BP 150/89 H 02/08/22 20:52 Pulse Ox 98 02/08/22 20:52 O2 Del Method 02/08/22 20:52 BMI result Body Mass Index 42.2 vss Appearance: Alert.? Oriented X3.? No acute distress.? Head: Normocephalic, atraumatic, no step-offs or deformities Eyes: Pupils equal, round and reactive to light.? CVS: Normal heart rate and rhythm.? Pulses normal.? Respiratory: No respiratory distress.? Breath sounds normal.? Abdomen: Soft and nontender.? Active bowel sounds all 4 quadrants. Skin: Skin warm and dry.? Normal skin color.? Normal skin turgor.? Extremities: No lower extremity edema.? No calf ttp. 5/5 strength to bilateral upper and lower extremities. Full rom pain free to b/l shoulders no step offs or deformities. Normal handgrip b/l. Back: Bilateral lumbar paraspinous muscle tenderness. No midline tenderness, no C-spine tenderness, full range of motion, no CVA tenderness bilaterally. Neuro: Oriented X 3.? No motor deficit.? No sensory deficit. CN 2-12 intact. Heel to valente, nose to finger, intact. DTRs intact to patella b/l. No saddle paresthesias. Normal coordination. Gait with no abnormalities. NIHSS-0 Course Reevaluation(s) Reevaluation #1: CBC appears to be within normal limits. Chemistry with slightly elevated potassium, patient has had elevated potassium in the past, will give 5 mg of low, at this time. Ca high likely secondary to hyperparathyroidism. Patient also noted to have elevated BUN and creatinine however appears to be around her baseline. Troponin negative, EKG nonischemic unlikely that this is ACS. X-ray of the shoulder with no acute findings. No need for imaging of back as pain was atraumatic appears to be chronic in nature. Patient ambulating without difficulties around the room, appears well, tells me she feels fine and does wanted to come in to get checked out. Patient nontoxic appearing educated on worrisome signs and symptoms and when to return. Will give her Tylenol for pain, Lidoderm patches. Will discharge her home on prednisone for inflammatory arthritis. Advised to return with new or worsening symptoms educated on these comfortable discharge home with prompt PCP follow-up. Time: 21:11 Medications Administered Discontinued Medications Generic Name Dose Route Start Last Admin Trade Name Freq PRN Reason Stop Dose Admin Sodium Zirconium Cyclosilicate 5 gm 02/08/22 20:37 02/08/22 20:49 Sodium Zirconium Cyclosilicate 5 Gm Powd.Pack PO 02/08/22 20:38 5 gm ONCE ONE Administration MDM - Extremity (Nontraumatic) MDM Narrative Medical decision making narrative: 2042 66-year-old female presents with lower lumbar paraspinous back pain and left ne ck pain w/ radiation to left upper extremitiy x1 day however, patient has frequent episodes of this that come and go throughout the year. No known trauma or injury. PE remarkable for tenderness to lower lumbar paraspinous muscles bilaterally with, no midline tenderness. Normal B/l shoulders with painless ROM. Neurovascularly intact. Heel to valnete, nose to finger, intact. DTRs intact. NIHSS-0. Gait with no abnormalities. Likely strain, sprain, cervical radiculopathy or arthritis. Unlikely spinal abscess, epidural abscess, stroke, posterior stroke, nephrolithiasis, cord compression or cauda equina. No midline tenderness unlikely fractures or dislocations. Plan at this time is imaging, labs, urine. Medical Records Attestation: I reviewed the patient's medical records. Lab Data Attestation: I reviewed the patient's lab results. Result diagrams: 02/08/22 18:08 02/08/22 18:08 Labs: Lab Results 02/08/22 02/08/22 02/08/22 Range/Units 18:08 18:08 18:08 WBC 7.0 (4.8-10.8) X10*3/uL RBC 4.12 L (4.20-5.50) X10*6/uL Hgb 12.3 (12.0-16.0) g/dl Hct 38.0 (37.0-47.0) % MCV 92.2 (80.0-98.0) fL MCH 29.9 (27.0-33.0) pg MCHC 32.4 (31.0-35.0) g/dl RDW 12.4 (11.0-16.0) % Plt Count 250 (160-400) X10*3/uL MPV 11.0 (9.4-12.3) fL Immature Gran % (Auto) 0.3 (0.0-0.4) % Neut % (Auto) 50.4 (45-73) % Lymph % (Auto) 41.2 H (20-40) % [place] % (Auto) 5.7 (2-11) % Eos % (Auto) 2.0 (0-4) % Baso % (Auto) 0.4 (0-2) % Lymph # (Auto) 2.9 (1.2-4.9) X10*3/uL [place] # (Auto) 0.4 (0.1-1.2) X10*3/uL Eos # (Auto) 0.1 (0.0-0.4) X10*3/uL Baso # (Auto) 0.0 (0.0-0.2) X10*3/uL Abs Immat Gran (auto) 0.02 (0.00-0.03) X10*3/uL Absolute Neuts (auto) 3.5 (2.0-8.3) x10*3/uL Absolute Nucleated RBC 0.000 (0.0-0.012) X10*3/uL Nucleated RBC % (auto) 0.0 (0.0-0.2) /100WBC Sodium 141 (135-145) mmol/L Potassium 5.2 H (3.3-5.1) mmol/L Chloride 105 (96-108) mmol/L Carbon Dioxide 29 (22-29) mmol/L Anion Gap 12 (12-20) BUN 38 H (9-16) mg/dL Creatinine 1.69 H (0.5-1.4) mg/dL Estim Creat Clear Calc 30.3 Estimated GFR 30 Random Glucose 130 H (60-115) mg/dL Calcium 10.6 H (8.4-10.2) mg/dL Troponin I High Sens < 3.5 (<3.5-17.0) ng/L ECG Data Attestation EKG: I personally reviewed and interpreted this ECG as follows: ECG interpretation date: 02/08/22 ECG interpretation time: 21:27 Prior ECG tracings: available for review Interpretation: Ventricular rate of 77, RI normal, QRS normal, QT/QTC normal. EKG normal sinus rhythm no signs of ischemia. No significant changes from previous Critical Care Time Critical Care Time Critical Care Time: No Discharge Plan Discharge Clinical Impression: Back pain, Left shoulder pain, Acute hyperkalemia, BEBO (acute kidney injury) Patient Disposition: Home, Self-Care Instructions: Acute Kidney Injury (DC), Hyperkalemia (ED), Back Pain (ED), Shoulder Pain (ED) Additional Instructions: Take your medications as prescribed. If you were prescribed antibiotics today, it is important that you take your medication to their entirety, do not skip any doses, do not finish them early. Follow-up with your primary care provider this week. Follow-up with orthopedics if needed Return to the emergency department with new or worsening symptoms. Such as fevers, chills, chest pain, shortness of breath, nausea, vomiting, dizziness, headache, vision changes, lethargy, numbness or tingling of extremities, loss of control of urine or feces. In case of emergency call 911 Your potassium was noted to be high please follow up with your primary care doctor for reevaluation of potassium within 2-3 days. You can take ibuprofen every 6 hours, Tylenol every 4 as needed for pain or discomfort Kila jignesh medicamentos seg?n lo prescrito. Si le recetaron antibi?ticos hoy, es importante que tome riddle medicamento en riddle totalidad, no se salte ninguna dosis, no los termine antes de tiempo. Seguimiento con riddle proveedor de atenci?n primaria esta semana. Seguimiento con ortopedia si es necesario Regrese al departamento de emergencias con s?ntomas nuevos o que empeoran. Tales jany fiebre, escalofr?os, dolor en el pecho, dificultad para respirar, n?useas, v?mitos, mareos, dolor de ariadna, cambios en la visi?n, letargo, entumecimiento u hormigueo en las extremidades, p?rdida del control de la orina o las heces. En wil de emergencia llama al 911 Se not? que riddle nivel de potasio era alto, marcos un seguimiento con riddle m?dico de atenci?n primaria para stephany reevaluaci?n de potasio dentro de 2 a 3 d?as. Puede sara ibuprofeno cada 6 horas, Tylenol cada 4 seg?n sea necesario para el dolor o la incomodidad Prescriptions: New lidocaine 5 % adhesive patch,medicated 1 patch topical DAILY PRN (Reason: pain) Qty: 15 0RF Rx Instructions: leave on most painful area for up to 12 hrs diclofenac sodium [Voltaren Arthritis Pain] 1 % gel 2 g topical QID Qty: 100 0RF Rx Instructions: apply to single elbow, wrist or hand; for hand includes palm/fingers/back of hand No Action pioglitazone 15 mg tablet 15 mg PO DAILY 30 Days Qty: 30 11RF (DME) lancets [TRUEplus Lancets] 33 gauge misc See Rx Instructions .Route Qty: 100 11RF Rx Instructions: As directed to test blood sugar 3-4 times a day (DME) blood-glucose meter [OneTouch Verio Flex meter] Misc See Rx Instructions .Route Qty: 1 0RF Rx Instructions: As directed (DME) lancets [OneTouch UltraSoft Lancets] Misc See Rx Instructions .Route Qty: 200 5RF Rx Instructions: As directed (DME) OneTouch Verio test strips Strip See Rx Instructions .Route Qty: 100 11RF Rx Instructions: As directed cholecalciferol (vitamin D3) 25 mcg (1,000 unit) capsule 25 mcg PO DAILY 30 Days Qty: 30 6RF acetaminophen 500 mg tablet 500 mg PO Q12H PRN cyclobenzaprine 5 mg tablet 5 mg PO TID PRN ferrous sulfate 325 mg (65 mg iron) tablet 325 mg PO TID Pulmicort Flexhaler 90 mcg/actuation aerosol powdr breath activated 2 inh inhalation BID Trulicity 1.5 mg/0.5 mL pen injector 1.5 mg subcut QWEEK 30 Days Qty: 2.5 11RF albuterol sulfate [Ventolin HFA] 90 mcg/actuation Hfa Aerosol Inhaler 2 puff INHALATION Q4-6H PRN (Reason: Shortness Of Breath) Flovent HFA 110 mcg/actuation HFA aerosol inhaler 1 puff INHALATION BID PRN (DME) pen needle, diabetic 32 gauge x 5/32 needle See Rx Instructions .ROUTE QID Qty: 50 Rx Instructions: As directed alcohol swabs Pads, Medicated 1 pad topical TID Lokelma 5 gram powder in packet 5 g PO 2XW loratadine 10 mg tablet 10 mg PO QAM clopidogrel 75 mg tablet 75 mg PO DAILY Lantus Solostar U-100 Insulin 100 unit/mL (3 mL) insulin pen 34 unit subcut DAILY insulin lispro [Humalog KwikPen Insulin] 100 unit/mL insulin pen 12 unit subcut TID metoprolol tartrate 50 mg tablet 50 mg PO BID amlodipine 5 mg tablet 5 mg PO DAILY omeprazole 20 mg capsule,delayed release(DR/EC) 20 mg PO DAILY furosemide 20 mg tablet 20 mg PO DAILY atorvastatin [Lipitor] 80 mg tablet 80 mg PO DAILY docusate sodium [Colace] 100 mg capsule 200 mg PO BEDTIME Qty: 60 5RF polyethylene glycol 3350 [Miralax] 17 gram/dose powder 17 g PO DAILY Qty: 510 2RF peg 3350-electrolytes 240-22.72-6.72 -5.84 gram recon soln 240 ml PO Q10M Qty: 4000 0RF Rx Instructions: until fecal effluent is clear ezetimibe [Zetia] 10 mg tablet 10 mg PO DAILY Qty: 90 3RF Referrals: [facility] [Provider Group] - 2 weeks James Trimble MD [Primary Care Provider] - 2 days [facility] [Provider Group] - 2 weeks Stand Alone Forms: Work/School Release
[2022-02-08] MEDS: Sodium Zirconium Cyclosilicate 5 GM POWD.PACK PO (20:49)
[2022-02-08 20:52] VITALS: BP 150/89; PULSE 77; RESP 16; O2SAT 98
[2022-02-08] MEDS: Acetaminophen 325 MG TABLET 975 MG PO (21:26)
[2022-02-08] MEDS: Lidocaine 4 % Patch ADH..PATCH 2 PATCH TRANSDERMA (21:29)
== END 2022-02-08 21:52 | disposition home or self-care (01) ==
PROVIDERS: Emergency Provider Emergency Medicine; PCP Internal Medicine
DX: M54.50 Low back pain, unspecified (principal); M79.602 Pain in left arm; E87.5 Hyperkalemia; Z79.899 Other long term (current) drug therapy
CPT/HCPCS: 36415; 73030; 80048; 84484; 85025; 93005; 99283; 99284

== ENCOUNTER 2022-02-16 08:17 | Outpatient (REF) | payer OTHER, SELFPAY ==
--- NOTE | ~2022-02-16 | MM_ITS ---
EXAMINATION: MM SCREENING DIGITAL BREAST TOMOSYNTHESIS, BILATERAL CLINICAL INFORMATION: Screening. Asymptomatic. The lifetime risk of breast cancer based on the Tyrer-Cuzick Model is 4%. COMPARISON: Mammography: 01/29/2021, 01/08/2019, 12/26/2017 TECHNIQUE: Digital breast tomosynthesis is performed in both the craniocaudal and mediolateral oblique views along with computer-aided detection (CAD). Synthesized 2D images are generated from the tomosynthesis. Additional bilateral MLO views and right cleavage view are provided. FINDINGS: There are scattered areas of fibroglandular density (ACR BI-RADS breast composition Category b). There are no significant masses, abnormal calcifications, or other abnormalities. Parenchymal pattern is similar to prior studies. There is no developing density or architectural abnormality. The axilla and skin contours are unremarkable. No significant changes. MM/MM tomosynthesis screening BI IMPRESSION: No mammographic evidence of malignancy. ASSESSMENT: BI-RADS 1: Negative RECOMMENDATION: Routine annual mammography screening. This patient's information was entered into a reminder system with a target due date for their next mammogram.
== END 2022-02-16 08:18 | disposition home or self-care (01) ==
LOC: HO.MAMMO 08:17
PROVIDERS: PCP Internal Medicine; Visit Provider Advanced Practice Midwife
DX: Z12.31 Encounter for screening mammogram for malignant neoplasm of breast (principal)
CPT/HCPCS: 77063; 77067

== ENCOUNTER 2022-03-01 12:48 | Outpatient (REF) | payer OTHER, SELFPAY ==
--- NOTE | ~2022-03-01 | MM_ITS ---
EXAMINATION: BONE DENSITOMETRY CLINICAL INDICATION: Hyperparathyroidism, unspecified. COMPARISON: Previous BD dated 08/03/2018 and baseline BD dated 09/18/2008, spine and left hip; 08/03/2018, forearm radius 33%. TECHNIQUE: Using a [employer] DXA System (software version: 13.1) manufactured by [employer], dual-energy x-ray absorptiometry was performed of the lumbar spine, left hip and left forearm radius 33%. The images are of good technical quality. Summary results are attached. FINDINGS: AP SPINE L1-L4: Current: BMD 0.984 g/cm2, Z-score -0.8, T-score -1.6, osteopenia, 2.3% increase from previous, 2.9% decrease from baseline (<5% change is not significant). Prior: BMD 0.962 g/cm2. Baseline: BMD 1.013 g/cm2. LEFT FEMUR, NECK: Current: BMD 0.820 g/cm2, Z-score -0.5, T-score -1.6, osteopenia. Prior: BMD 0.779 g/cm2. Baseline: BMD 0.921 g/cm2. LEFT FEMUR, TOTAL: Current: BMD 0.839 g/cm2, Z-score -0.6, T-score -1.3, osteopenia, 3.1% decrease from previous, 17.5% decrease from baseline (<5% change is not significant). Prior: BMD 0.866 g/cm2. Baseline: BMD 1.017 g/cm2. LEFT FOREARM RADIUS 33%: BMD 0.618 g/cm2, Z-score -1.4, T-score -2.9, osteoporosis, 9.5% decrease from baseline (<5% change is not significant). IDENTIFIED RISK FACTORS: Hyperparathyroidism, low calcium intake, menopause, secondary osteoporosis. HISTORY OF FRACTURE: None listed. MEDICATIONS: Vitamin D. MM/XR DEXA appendicular skeleton IMPRESSION: 1. DIAGNOSIS: Osteoporosis based on the lowest T-score value of -2.9 in the left forearm radius 33% applying World Health Organization criteria. 2. 10-YEAR FRACTURE RISK PREDICTION, FRAX: According to the guidelines, FRAX calculation should only be performed on patients in the osteopenia bone density category. Therefore, FRAX was not performed on this patient. 3. Treatment Recommendations: NOF guidelines recommend consideration for treatment in postmenopausal women and men age 50 and older presenting with the following: -A hip or vertebral (clinical or morphometric) fracture. -T-score less than or equal to -2.5 at the femoral neck or spine after appropriate evaluation to exclude secondary causes. -Low bone mass at the hip or spine and a 10-year fracture probability by FRAX of greater than or equal to 3% for hip fracture or greater than or equal to 20% for major osteoporotic fracture based on the [place] adapted WHO algorithm. 4. Other Recommendations: All treatment decisions require clinical judgment and consideration of individual patient factors, including patient preferences, comorbidities, previous drug use, risk factors not captured in the FRAX model (e.g. frailty, falls, vitamin D deficiency, increased bone turnover, interval significant decline in bone density) and possible under or overestimation of fracture risk by FRAX. Additional medical evaluation for secondary cause of low bone mineral density may be appropriate. FUTURE SCAN RECOMMENDATION: People with diagnosed cases of osteoporosis or at high risk for fracture should have regular bone mineral density tests. For patients eligible for Medicare, routine testing is allowed once every 2 years. The testing frequency can be increased to one year for patients who have rapidly progressing disease, those who are receiving or discontinuing medical therapy to restore bone mass, or have additional risk factors.
== END 2022-03-01 12:49 | disposition home or self-care (01) ==
LOC: HO.MAMMO 12:48
PROVIDERS: PCP Internal Medicine; Visit Provider Internal Medicine
DX: Z13.820 Encounter for screening for osteoporosis (principal); E21.3 Hyperparathyroidism, unspecified; Z78.0 Asymptomatic menopausal state
CPT/HCPCS: 77081

== ENCOUNTER 2022-06-09 14:17 | Outpatient (REF) | payer OTHER, SELFPAY ==
[2022-06-09 15:05] LABS: Creatinine Urine 39.11 mg/dL; Microalbum/Creatinine Ratio Ur 17.8 ug/mg cr
[2022-06-09 15:09] LABS: Estimated Average Glucose 160 mg/dL; Hemoglobin A1c % 7.2 %
[2022-06-09 15:21] LABS: Alanine Aminotransferase 26 U/L (0-31); Albumin Level 4.4 g/dL (3.5-5.0); Alkaline Phosphatase 114 U/L (39-117); Anion Gap 14 (12-20); Aspartate Amino Transferase 25 U/L (5-31); Bilirubin Total 0.3 mg/dL (0.0-1.0); Blood Urea Nitrogen 38 mg/dL (9-16); Calcium 9.9 mg/dL (8.4-10.2); Carbon Dioxide 26 mmol/L (22-29); Chloride 110 mmol/L (96-108); Cholesterol 147 mg/dL; Estimated Glomerular Filt Rate 35; Glucose Random 100 mg/dL (60-115); HDL Cholesterol 44 mg/dL; LDL Cholesterol Calculated 68 mg/dl; Phosphorus 3.7 mg/dL (2.7-4.5); Sodium 145 mmol/L (135-145); Triglycerides 178 mg/dL
[2022-06-09 15:24] LABS: Vitamin D 25-OH Total 44.3 ng/mL (>30)
[2022-06-10 14:04] LABS: Calcium (PTHI) 9.9 mg/dL (8.6-10.4); PTHI 115 pg/mL (16-77)
[2022-06-10 15:34] LABS: LDL Cholesterol Direct 72 mg/dL (<100)
== END 2022-06-09 14:18 | disposition home or self-care (01) ==
LOC: HO.LAB 14:17
PROVIDERS: PCP Internal Medicine; Visit Provider Internal Medicine
DX: E55.9 Vitamin D deficiency, unspecified (principal); E21.3 Hyperparathyroidism, unspecified; E11.65 Type 2 diabetes mellitus with hyperglycemia; Z79.4 Long term (current) use of insulin
CPT/HCPCS: 36415; 80053; 80061; 82043; 82306; 83036; 83721; 83970; 84100

== ENCOUNTER → 2022-06-13 14:11 | Outpatient (BNVA) | payer OTHER, SELFPAY | PROVIDERS: PCP Internal Medicine; Visit Provider Internal Medicine | DX: E11.65 Type 2 diabetes mellitus with hyperglycemia (principal); E78.5 Hyperlipidemia, unspecified; I10 Essential (primary) hypertension; E21.3 Hyperparathyroidism, unspecified; E55.9 Vitamin D deficiency, unspecified; E04.9 Nontoxic goiter, unspecified; Z79.4 Long term (current) use of insulin | CPT/HCPCS: 82947; 99212 ==

== ENCOUNTER 2022-06-20 14:37 | Outpatient (REF) | payer OTHER, SELFPAY ==
[2022-06-20 17:39] LABS: Creatinine, mg/dL 71.18
[2022-06-20 18:00] LABS: Total Volume 24 Hour Urine 1350 mL
[2022-06-22 18:19] LABS: Calcium, 24 Hr Urine 18 mg/24 h; Calcium/Creatinine Ratio 20 mg/g creat (30-275); Creatinine 24Hr Urine 0.89 g/24 h (0.50-2.15)
== END 2022-06-20 14:38 | disposition home or self-care (01) ==
LOC: HO.LNP 14:37
PROVIDERS: Visit Provider Internal Medicine
DX: E21.3 Hyperparathyroidism, unspecified (principal)
CPT/HCPCS: 82340; 82570

== ENCOUNTER 2022-07-11 07:07 | Day surgery (SDC) | payer OTHER, SELFPAY ==
[2022-07-06 19:38] VITALS: BMI 39.0
[2022-07-07 10:51] VITALS: BMI 40.7
--- NOTE | 2022-07-08 11:52 | HO.ANESPROP2 ---
Documented by User: Christina Paitño NP 07/08/22 11:57 HPI - Anesthesia Eval Consult details Narrative: 67yo F for Upper Endoscopy and Colonoscopy Cardiac cleared CAD with stent 2005 - plavix PMFSH Active Problems Active Problems: All Active Problems (Updated 07/07/22 @ 10:28 by Adeola Hutchinson RN) Poor historian (Acute) Non-rheumatic aortic stenosis (Acute) Atherosclerotic cardiovascular disease (Acute) Osteoporosis (Acute) Goiter (Acute) Hyperparathyroidism (Acute) Hypercalcemia (Acute) Vitamin D deficiency (Acute) HLD (hyperlipidemia) (Acute) HTN (hypertension) (Acute) T2DM (type 2 diabetes mellitus) (Acute) Chronic constipation (Acute) Past Medical History Medical History Anemia Angina pectoris Asthma CAD (coronary artery disease) Chronic constipation Diabetes GERD (gastroesophageal reflux disease) Goiter HLD (hyperlipidemia) HTN (hypertension) HTN (hypertension) Hypercalcemia Hyperparathyroidism On beta anurag at home Osteoporosis Sleep apnea T2DM (type 2 diabetes mellitus) Vitamin D deficiency Family History Family History Father Liver problem Mother Diabetes Obesity Surgical History Surgical History H/O colonoscopy History of esophagogastroduodenoscopy (EGD) Hx of cholecystectomy Hx of heart artery stent Social History Social History Household Members Other:: With Housing: House Alcohol intake: never Patient Tobacco Use Status: Never used Tobacco Current occupational status: disabled Sexual orientation: Straight/Heterosexual Gender identity: Female Meds Allergies Allergy/AdvReac Type Severity Reaction Status Date / Time morphine [Morphine] Allergy Intermediate TACHYCARDIA, Verified 06/13/22 14:30 ANXIETY oxycodone [Percocet] Allergy Intermediate Palpitation Verified 06/13/22 14:30 s prednisone [PREDNISONE] AdvReac Intermediate ANXIETY Verified 06/13/22 14:30 Home Medications Medication Instructions Recorded Confirmed Last Taken Type albuterol sulfate 90 mcg/actuation 2 puff inhalation Q4-6H PRN 12/24/19 07/07/22 Unknown History aerosol inhaler (Ventolin HFA) Shortness Of Breath fluticasone propionate 110 1 puff inhalation BID 07/09/20 07/07/22 Unknown History mcg/actuation HFA aerosol inhaler (Flovent HFA) loratadine 10 mg tablet 10 mg PO QAM 07/09/20 07/07/22 Unknown History pen needle, diabetic 32 gauge x #50 ea 07/09/20 06/13/22 Unknown History sodium zirconium cyclosilicate 5 5 g PO 2XW 07/09/20 07/07/22 Unknown History gram oral powder packet clopidogrel 75 mg tablet 75 mg PO DAILY 01/27/21 07/07/22 Unknown History atorvastatin 80 mg tablet (Lipitor) 80 mg PO DAILY 11/01/21 07/07/22 Unknown History amlodipine 5 mg tablet 5 mg PO DAILY 11/03/21 07/07/22 Unknown History furosemide 20 mg tablet 20 mg PO DAILY 11/03/21 07/07/22 Unknown History metoprolol tartrate 50 mg tablet 50 mg PO BID 11/03/21 07/07/22 Unknown History omeprazole 20 mg capsule,delayed 20 mg PO DAILY 11/03/21 07/07/22 Unknown History release insulin glargine 100 unit/mL (3 34 unit subcut BEDTIME 11/29/21 07/07/22 Unknown History mL) subcutaneous pen (Lantus Solostar U-100 Insulin) insulin lispro 100 unit/mL 12 unit subcut TID 11/29/21 07/07/22 Unknown History subcutaneous pen (Humalog KwikPen (U-100) Insulin) acetaminophen 500 mg tablet 500 mg PO Q12H PRN Pain 01/28/22 07/07/22 Unknown History budesonide 90 mcg/actuation breath 2 inh inhalation BID 01/28/22 07/07/22 Unknown History activated powder inhaler (Pulmicort Flexhaler) cyclobenzaprine 5 mg tablet 5 mg PO TID PRN Pain 01/28/22 07/07/22 Unknown History ferrous sulfate 325 mg (65 mg 325 mg PO TID 01/28/22 07/07/22 Unknown History iron) tablet Exam Exam Date and Time: July 08, 2022 1152 Height,Weight and Vital Signs: Height 4 ft 9 in Weight 85.397 kg Pertinent Lab Results Pertinent Lab Results: Laboratory Tests 02/08/22 06/09/22 18:08 14:26 WBC 7.0 Hgb 12.3 Hct 38.0 Plt Count 250 Potassium 5.0 Chloride 110 H Carbon Dioxide 26 BUN 38 H Creatinine 1.49 H Narrative Narrative: EKG 01/2022 Vent. Rate : 077 BPM ? ? Atrial Rate : 077 BPM ?? P-R Int : 146 ms? QRS Dur : 070 ms ? ? QT Int : 366 ms ? ? ? P-R-T Axes : 055 048 023 degrees ?? QTc Int : 414 ms ? Normal sinus rhythm Normal ECG When compared with ECG of -APR-2021 12:38, No significant change was found ECHO 12/2021 Conclusions: - 1. Normal LV systolic function with LVEF of 60-65%, with ? ? ? impaired relaxation pattern? 2. Mild aortic stenosis? Assessment and Plan Assessment Anesthesia Assessment: Chart Reviewed Documented by User: Velma Brock MD 07/11/22 10:37 HPI - Anesthesia Eval Consult details Narrative: 67yo F for Upper Endoscopy and Colonoscopy Cardiac cleared CAD with stent 2005 - plavix. Last dose 07/09/22 PMFSH Active Problems Active Problems: All Active Problems (Updated 07/11/22 @ 08:28 by Velma Brock MD) Poor historian (Acute) Non-rheumatic aortic stenosis (Acute) Atherosclerotic cardiovascular disease (Acute) Osteoporosis (Acute) Goiter (Acute) Hyperparathyroidism (Acute) Hypercalcemia (Acute) Vitamin D deficiency (Acute) HLD (hyperlipidemia) (Acute) HTN (hypertension) (Acute) T2DM (type 2 diabetes mellitus) (Acute) Chronic constipation (Acute) CAD. Denies recent chest pain Past Medical History Medical History Anemia Angina pectoris Asthma CAD (coronary artery disease) Chronic constipation Diabetes GERD (gastroesophageal reflux disease) Goiter HLD (hyperlipidemia) HTN (hypertension) HTN (hypertension) Hypercalcemia Hyperparathyroidism On beta anurag at home Osteoporosis Sleep apnea T2DM (type 2 diabetes mellitus) Vitamin D deficiency Family History Family History Father Liver problem Mother Diabetes Obesity Family history of problems with anesthesia: No Surgical History Surgical History H/O colonoscopy History of esophagogastroduodenoscopy (EGD) Hx of cholecystectomy Hx of heart artery stent History of Problems with Anesthesia: No Social History Social History Household Members Other:: With Housing: House Alcohol intake: never Patient Tobacco Use Status: Never used Tobacco Current occupational status: disabled Sexual orientation: Straight/Heterosexual Gender identity: Female Meds Allergies Allergy/AdvReac Type Severity Reaction Status Date / Time morphine [Morphine] Allergy Intermediate TACHYCARDIA, Verified 06/13/22 14:30 ANXIETY oxycodone [Percocet] Allergy Intermediate Palpitation Verified 06/13/22 14:30 s prednisone [PREDNISONE] AdvReac Intermediate ANXIETY Verified 06/13/22 14:30 Home Medications Medication Instructions Recorded Confirmed Last Taken Type albuterol sulfate 90 mcg/actuation 2 puff inhalation Q4-6H PRN 12/24/19 07/07/22 Unknown History aerosol inhaler (Ventolin HFA) Shortness Of Breath fluticasone propionate 110 1 puff inhalation BID 07/09/20 07/07/22 Unknown History mcg/actuation HFA aerosol inhaler (Flovent HFA) loratadine 10 mg tablet 10 mg PO QAM 07/09/20 07/07/22 Unknown History pen needle, diabetic 32 gauge x #50 ea 07/09/20 06/13/22 Unknown History sodium zirconium cyclosilicate 5 5 g PO 2XW 07/09/20 07/07/22 Unknown History gram oral powder packet clopidogrel 75 mg tablet 75 mg PO DAILY 01/27/21 07/07/22 Unknown History atorvastatin 80 mg tablet (Lipitor) 80 mg PO DAILY 11/01/21 07/07/22 Unknown History amlodipine 5 mg tablet 5 mg PO DAILY 11/03/21 07/07/22 Unknown History furosemide 20 mg tablet 20 mg PO DAILY 11/03/21 07/07/22 Unknown History metoprolol tartrate 50 mg tablet 50 mg PO BID 11/03/21 07/07/22 Unknown History omeprazole 20 mg capsule,delayed 20 mg PO DAILY 11/03/21 07/07/22 Unknown History release insulin glargine 100 unit/mL (3 34 unit subcut BEDTIME 11/29/21 07/07/22 Unknown History mL) subcutaneous pen (Lantus Solostar U-100 Insulin) insulin lispro 100 unit/mL 12 unit subcut TID 11/29/21 07/07/22 Unknown History subcutaneous pen (Humalog KwikPen (U-100) Insulin) acetaminophen 500 mg tablet 500 mg PO Q12H PRN Pain 01/28/22 07/07/22 Unknown History budesonide 90 mcg/actuation breath 2 inh inhalation BID 01/28/22 07/07/22 Unknown History activated powder inhaler (Pulmicort Flexhaler) cyclobenzaprine 5 mg tablet 5 mg PO TID PRN Pain 01/28/22 07/07/22 Unknown History ferrous sulfate 325 mg (65 mg 325 mg PO TID 01/28/22 07/07/22 Unknown History iron) tablet Exam Height,Weight and Vital Signs: Height 4 ft 9 in Weight 85.397 kg Vital Signs Temp Pulse Resp BP Pulse Ox O2 Del Method 97.1 F 83 16 128/77 96 Room Air 07/11/22 08:25 07/11/22 08:25 07/11/22 08:25 07/11/22 08:25 07/11/22 08:25 07/11/22 08:25 Pertinent Lab Results Pertinent Lab Results: Laboratory Tests 02/08/22 06/09/22 18:08 14:26 WBC 7.0 Hgb 12.3 Hct 38.0 Plt Count 250 Potassium 5.0 Chloride 110 H Carbon Dioxide 26 BUN 38 H Creatinine 1.49 H Lab Results 07/11/22 Range/Units 08:02 POC Glucose 144 H (60-115) mg/dL Airway Mallampati Class: II TM Dist: >3cm Neck ROM: Full Loose/Missing/Broken Teeth: Yes (1 missing top left) Heart: RRR + systolic murmur Lungs: CTAB Assessment and Plan Assessment Anesthesia Assessment: Anesthesia Plan Discussed Final Anesthetic Review Family History of Problems with Anesthesia: No History of Problems with Anesthesia: No NPO: Yes ASA Class: III Final Preanesthetic Review: No Changes in Pt Med Stat, Meds/Allgs Chart Reviewed, Consent Obtained/Reviewed and Anes Risks/Benef Reviewed Patient Risk: Intermediate Procedure Risk: Low Assessment/Block/Sedation in SS: Assess/Block/Sedation-SS Anesthetic Plan Anesthetic Plan: MAC: Disposition: Standard PACU
[2022-07-11 08:06] LABS: Glucose, Whole Blood 144 mg/dL (60-115)
[2022-07-11 08:25] VITALS: BP 128/77; PULSE 83; RESP 16; TEMP 36.2; O2SAT 96
[2022-07-11] MEDS: Lactated Ringers 1,000 ML 100 ML IVCONT (08:34)
--- NOTE | 2022-07-11 09:30 | MHC.SHP ---
Pre-Procedural Eval Section A Date of Service: 07/11/22 The patient is an INPATIENT: No The History & Physical has been completed within 30 days and I have reviewed it.: No Section B Chief Complaint: screen, anemia, constipation,reflux disease Relevant Family History (Specify if Yes): No Relevant Social History: None Present Medications: see Short Stay Collaborative assessment Medical History: Significant History (Anemia Angina pectoris Asthma CAD (coronary artery disease) Chronic constipation Diabetes GERD (gastroesophageal reflux disease) HLD (hyperlipidemia) HTN (hypertension) HTN (hypertension) Hypercalcemia Hyperparathyroidism On beta anurag at home Sleep apnea T2DM (type 2 diabetes mellitus) Vitamin D ) History of Previous Operations: Relevant previous surgery/procedure and date(s) (H/O colonoscopy History of esophagogastroduodenoscopy (EGD) Hx of cholecystectomy Hx of heart artery stent) Allergies: Allergies Allergy/AdvReac Type Severity Reaction Status Date / Time morphine [Morphine] Allergy Intermediate TACHYCARDIA, Verified 06/13/22 14:30 ANXIETY oxycodone [Percocet] Allergy Intermediate Palpitation Verified 06/13/22 14:30 s prednisone [PREDNISONE] AdvReac Intermediate ANXIETY Verified 06/13/22 14:30 Review of Systems Sugical H&P ROS: Negative: Constitution, Cardiovascular, Respiratory and Gastrointestinal Exam Surgical H&P Exam: Normal: Heart, Normal: Lungs, Normal: Extremities and Normal: Abdomen Plan Diagnosis/Plan: Unchanged I have reviewed the history and physical and performed a pertinent physical examination on my patient. No changes have occurred unless specified. Time Spent With Patient Time: Total time managing care of this patient today ____ minutes.
--- NOTE | 2022-07-11 09:32 | W.PM.OPN ---
Operative Note Operative Note Date of Service: 07/11/22 Narrative: FLEXIBLE TRANSORAL UPPER GASTROINTESTINAL ENDOSCOPY WITH BIOPSIES AND COLONOSCOPY TILL CECUM WITH BIOPSIES, SNARE POLYPECTOMY AND HEMOCLIP PLACEMENT Pre-op diagnosis: Colon cancer screening, anemia, chronic constipation, GERD Post-op diagnosis:? GERD, GASTRITIS, GASTRIC POLYPS, COLON POLYPS, DIVERTICULOSIS, HEMORRHOIDS Endoscopist:? Jose Mazariegos MD Anesthesia:?MAC UPPER ENDOSCOPY Consent: Indications for the procedure and potential complications of bleeding, perforation, reaction to medications and missed diagnosis were discussed with the patient and informed consent was obtained. Instrument: Olympus GIF H 190 mid size upper endoscope Monitoring: Vital signs and clinical assessment, continuous EKG monitoring, Pulse oximetry, Carbon Dioxide monitoring and blood pressure monitoring were done throughout the procedure. Procedure: The patient was placed in the left lateral decubitis position and pre-procedure medications were administered and a bite block was placed. The endoscope was inserted into the mouth and advanced under direct vision to the third part of duodenum. A careful inspection was made as the upper endoscope was withdrawn including a retroflexed examination of the proximal stomach; Findings and interventions are described below. Findings: Larynx: Normal Esophagus: GE junction at 35 cms. No esophagitis or Landin's. Stomach: Mild gastric erythema with nodular appearing mucosa in the gastric body. Biopsies were obtained from the gastric body and antrum. A few 5-8 mm sessile polyps in the gastric body - biopsied. Grade 2 flap valve on retroflexed examination of the cardia. Duodenum: Normal bulb and descending duodenum. Biopsies were obtained from 3rd part of the duodenum to check for celiac sprue. Intervention: Biopsies as noted above COLONOSCOPY PROCEDURE NOTE Consent: Indications for the procedure and potential complications of bleeding, perforation, reaction to medications and missed diagnosis were discussed with the patient and informed consent was obtained. Instrument: Olympus PCF H 190 L variable stiffness pediatric colonoscope Monitoring: Vital signs and clinical assessment, intermittent blood pressure monitoring, continuous EKG monitoring, Pulse oximetry and Carbon Dioxide monitoring were done throughout the procedure. Colon withdrawl time was 15 minutes. Procedure: The patient was placed in the left lateral decubitis position and pre-procedure medications were administered. After a digital rectal examination of the ano-rectum, the video colonoscope was inserted into the rectum and advanced through the colon to the cecum. The colonoscope was slowly withdrawn in a retrograde panoramic fashion and the colon mucosa was carefully examined including a retroflexed view of the rectum. Findings and interventions are described below. Procedure Difficulty: : Without difficulty Findings: Terminal Ileum: Not evaluated Cecum: Normal Ascending Colon: A 7-8 mm sessile polyp in the proximal AC - removed with a cold snare. Two 3-5 mm sessile polyps - removed with a cold bx Transverse Colon: A 10-12 mm sessile polyp in the proximal TC - removed with a hot snare. A 12 to 15 mm sessile polyp in the distal TC at 50 cms. Polyp was removed with a hot snare and polypectomy site was closed with 1 hemoclip. Descending Colon: Moderate diverticulosis Sigmoid Colon: A 12- to 15 mm sessile polyp - removed with a hot snare. Moderate diverticulosis Rectum: Normal Ano-rectum: Large internal hemorrhoids Colon preparation: Excellent Impression and Post Procedure Diagnosis: Endoscopy Findings: STOMACH: Mild gastric erythema with nodular appearing mucosa in the gastric body. Biopsies were obtained from the gastric body and antrum. A few 5-8 mm sessile polyps in the gastric body - biopsied. DUODENUM: Normal - biopsied to check for celiac sprue Colonoscopy Findings: Three small and three medium sized polyps removed Moderate diverticulosis seen in the left colon Large hemorrhoids on retroflexed exam. Plan: Await pathology results Patient has an appointment on 07/25/22 in the [facility] with [facility]. Repeat Colonoscopy interval based on path results - in 2-3 years if multiple polyps are adenomatous and 10 years if polyps are hyperplastic. Gastric polyps, colon polyps and diverticulosis handouts were given in the discharge area
[2022-07-11 10:23] VITALS: BP 99/52; PULSE 79; RESP 19; TEMP 36.1; O2SAT 95
[2022-07-11 10:38] VITALS: BP 130/75; PULSE 75; RESP 19; O2SAT 98
[2022-07-11 10:50] VITALS: BP 139/72; PULSE 80; RESP 18; TEMP 36.7; O2SAT 98
== END 2022-07-11 11:35 ==
PROVIDERS: PCP Internal Medicine; Visit Provider Internal Medicine Gastroenterology
PROC: (CPT 45385; principal; 2022-07-11 09:20)
DX: Z12.11 Encounter for screening for malignant neoplasm of colon (principal); D12.2 Benign neoplasm of ascending colon; K63.5 Polyp of colon; K57.30 Diverticulosis of large intestine without perforation or abscess without bleeding; K64.8 Other hemorrhoids; K59.09 Other constipation; D64.9 Anemia, unspecified; K29.70 Gastritis, unspecified, without bleeding; K31.7 Polyp of stomach and duodenum; K21.9 Gastro-esophageal reflux disease without esophagitis; I10 Essential (primary) hypertension; E11.9 Type 2 diabetes mellitus without complications; I25.10 Atherosclerotic heart disease of native coronary artery without angina pectoris; Z79.02 Long term (current) use of antithrombotics/antiplatelets; Z79.4 Long term (current) use of insulin; Z79.899 Other long term (current) drug therapy
CPT/HCPCS: 45385; 45380; 43239; 82947; 88305; 88342

== ENCOUNTER → 2022-07-25 14:08 | Outpatient (BNVA) | payer MEDICARE, SELFPAY | PROVIDERS: PCP Internal Medicine; Referring Provider Internal Medicine; Visit Provider Physician Assistant | DX: K64.9 Unspecified hemorrhoids (principal); K57.30 Diverticulosis of large intestine without perforation or abscess without bleeding; K21.9 Gastro-esophageal reflux disease without esophagitis; D36.9 Benign neoplasm, unspecified site | CPT/HCPCS: 99212 ==

== ENCOUNTER → 2022-08-04 13:53 | Outpatient (BNVA) | payer MEDICARE, SELFPAY | PROVIDERS: PCP Internal Medicine; Referring Provider Internal Medicine; Visit Provider Internal Medicine | DX: I25.119 Atherosclerotic heart disease of native coronary artery with unspecified angina pectoris (principal); I35.0 Nonrheumatic aortic (valve) stenosis; I10 Essential (primary) hypertension; E11.65 Type 2 diabetes mellitus with hyperglycemia; E78.5 Hyperlipidemia, unspecified; Z95.5 Presence of coronary angioplasty implant and graft; Z79.4 Long term (current) use of insulin; Z79.899 Other long term (current) drug therapy | CPT/HCPCS: 99212 ==

== ENCOUNTER 2022-08-08 17:02 | Emergency (ER) | payer OTHER, SELFPAY ==
[2022-08-08 17:22] VITALS: BP 178/75; PULSE 65; RESP 18; TEMP 35.9; O2SAT 99; BMI 38.0
--- NOTE | 2022-08-08 18:55 | ED.GENADULT ---
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 She reports that she has this pain on all and was seen here in the past for similar. She states that on this occasion it has been present for at least the last 4 or 5 days She has not taken any medications to help alleviate her symptoms Denies any trauma to the head or neck pain Denies any dizziness, blurry vision or weakness Patient also states that for the last 3 days she has had ?some bumps in my mouth that are painful. ? No other complaints or concerns at this time Related Data Home Medications Medication Instructions Recorded Confirmed albuterol sulfate 90 mcg/actuation 2 puff inhalation Q4-6H PRN 12/24/19 08/04/22 aerosol inhaler (Ventolin HFA) Shortness Of Breath fluticasone propionate 110 1 puff inhalation BID 07/09/20 08/04/22 mcg/actuation HFA aerosol inhaler (Flovent HFA) loratadine 10 mg tablet 10 mg PO QAM 07/09/20 08/04/22 pen needle, diabetic 32 gauge x #50 ea 07/09/20 08/04/22 sodium zirconium cyclosilicate 5 5 g PO 2XW 07/09/20 08/04/22 gram oral powder packet clopidogrel 75 mg tablet 75 mg PO DAILY 01/27/21 08/04/22 atorvastatin 80 mg tablet (Lipitor) 80 mg PO DAILY 11/01/21 08/04/22 amlodipine 5 mg tablet 5 mg PO DAILY 11/03/21 08/04/22 furosemide 20 mg tablet 20 mg PO DAILY 11/03/21 08/04/22 metoprolol tartrate 50 mg tablet 50 mg PO BID 11/03/21 08/04/22 omeprazole 20 mg capsule,delayed 20 mg PO DAILY 11/03/21 08/04/22 release insulin glargine 100 unit/mL (3 34 unit subcut BEDTIME 11/29/21 08/04/22 mL) subcutaneous pen (Lantus Solostar U-100 Insulin) insulin lispro 100 unit/mL 12 unit subcut TID 11/29/21 08/04/22 subcutaneous pen (Humalog KwikPen (U-100) Insulin) acetaminophen 500 mg tablet 500 mg PO Q12H PRN Pain 01/28/22 08/04/22 budesonide 90 mcg/actuation breath 2 inh inhalation BID 01/28/22 08/04/22 activated powder inhaler (Pulmicort Flexhaler) cyclobenzaprine 5 mg tablet 5 mg PO TID PRN Pain 01/28/22 08/04/22 ferrous sulfate 325 mg (65 mg 325 mg PO TID 01/28/22 08/04/22 iron) tablet Previous Rx's Medication Instructions Recorded pioglitazone 15 mg tablet 15 mg PO DAILY 30 days #30 tabs 09/07/20 lancets 33 gauge (TRUEplus Lancets) #100 ea 02/16/21 blood-glucose meter (OneTouch #1 ea 06/30/21 Verio Flex Meter) lancets (OneTouch UltraSoft #200 ea 06/30/21 Lancets) cholecalciferol (vitamin D3) 25 25 mcg PO DAILY 30 days #30 caps 01/12/22 mcg (1,000 unit) capsule ezetimibe 10 mg tablet (Zetia) 10 mg PO DAILY #90 tabs 01/30/22 lidocaine 5 % topical patch 1 patch topical DAILY PRN pain #15 02/08/22 ea docusate sodium 100 mg capsule 200 mg PO BEDTIME #60 caps 05/12/22 (Colace) blood sugar diagnostic (OneTouch #100 ea 06/02/22 Verio test strips) semaglutide 0.25 mg or 0.5 mg (2 0.25 mg (0.4 mL) subcut QWEEK 30 06/13/22 mg/3 mL) subcutaneous pen injector days #2 mL (Ozempic) calcium citrate 200 mg 2 tab PO BID 30 days #120 tabs 07/07/22 calcium-vitamin D3 6.25 mcg (250 unit) tablet (Citracal-D3 Petites) baclofen 10 mg tablet 10 mg PO BID muscle spasms #10 tabs 08/08/22 penicillin V potassium 500 mg 500 mg PO TID #21 tabs 08/08/22 tablet Allergies Allergy/AdvReac Type Severity Reaction Status Date / Time morphine [Morphine] Allergy Intermediate TACHYCARDIA, Verified 05/29/23 17:22 ANXIETY oxycodone [Percocet] Allergy Intermediate Palpitation Verified 08/08/22 17:22 s prednisone [PREDNISONE] AdvReac Intermediate ANXIETY Verified 08/08/22 17:22 Review of Systems Constitutional: Constitutional: Denies body ache(s), Denies chills, Denies fever(s) and Denies headache(s) ENT: Denies headache(s), Reports mouth lesions, Reports mouth pain and Reports neck pain Cardiovascular: Cardiovascular: Denies chest pain, Denies chest pain at rest and Denies dyspnea Respiratory: Respiratory: Denies cough and Denies dyspnea Gastrointestinal: Gastrointestinal: Denies abdominal pain, Denies nausea and Denies vomiting Musculoskeletal: Musculoskeletal: Reports back pain, Reports neck pain and Denies numbness Integumentary/Breasts: Skin/Breast: Denies rash Neurologic: Denies headache(s) and Denies numbness PMFSH Past Medical History Medical History (Updated 08/08/22 @ 19:03 by Patrick Borrego) Anemia Angina pectoris Asthma CAD (coronary artery disease) Chronic constipation Diabetes GERD (gastroesophageal reflux disease) Goiter HLD (hyperlipidemia) HTN (hypertension) HTN (hypertension) Hypercalcemia Hyperparathyroidism On beta anurag at home Osteoporosis Sleep apnea T2DM (type 2 diabetes mellitus) Vitamin D deficiency Surgical History H/O colonoscopy History of esophagogastroduodenoscopy (EGD) Hx of cholecystectomy Hx of heart artery stent Family History Family History Father Liver problem Mother Diabetes Obesity Social History Social History Household Members Other:: With Housing: House Alcohol intake: never Patient Tobacco Use Status: Never used Tobacco Advance Directives: No Advance Directives Information Provided: Yes Current occupational status: disabled Sexual orientation: Straight/Heterosexual Gender identity: Female Physical Exam ED Vital Signs: Vital Signs - 24 hr 08/08/22 17:22 Temperature 96.7 F L Pulse Rate 65 Respiratory Rate 18 Blood Pressure 178/75 H Pulse Oximetry 99 Oxygen Delivery Method Room Air BMI result Body Mass Index 38.0 Const General: healthy appearing, comfortable, no acute distress, alert and awake Nutritional Appearance: well nourished Orientation/consciousness: patient oriented x3 HENMT Other: Patient has small amount of erythema with edema in the area where tooth no 10 would be, but this has been removed. No significant drainable abscess noted. No lesions of the time. Head: Yes normocephalic and Yes atraumatic Throat: Yes posterior oropharynx normal Eyes Eyelids: Yes eyelids normal Conjunctivae: conjunctivae normal Sclerae: sclerae normal Corneas: corneas normal Pupils: Equal, round and reactive pupils present EOM: EOMs intact bilaterally Neck Other: Patient has bilateral cervical paraspinous muscle tenderness that extends down to the thoracic and lumbar spine bilaterally. No vertebral step-offs or deformities. Patient to move bilateral upper and lower extremities without any difficulty Neck: Yes full ROM, Yes no meningeal signs and No anterior neck swelling Resp Effort & Inspection: normal respiratory effort, able to speak in complete sentences and not labored Skin General skin exam: no rashes or lesions noted and elasticity normal Neuro General: patient oriented x3 and no meningeal signs Cranial nerves: Yes CN's II-XII intact bilaterally, Yes Equal, round and reactive pupils present and Yes Bilaterally intact EOM present Cognition (Neuro): normal cognition Extrem Other: Moving all extremities well without any obvious deformities Medical Decision Making Medical Decision Making MDM Narrative: Patient has chronic neck and back pain which is reproducible on exam, she has no significant deformities, no trauma. Will treat with baclofen and she will continue using Tylenol. Patient has mild gingival edema along the area of a broken tooth. Will treat with penicillin and she will follow-up with her primary doctor Differential Diagnosis Muscle strain Chronic back pain Arthritis Muscle strain Gingivitis Dental infection Facial pain Discharge Plan Discharge Clinical Impression: Chronic neck and back pain, Atypical facial pain Patient Disposition: Home, Self-Care Instructions: Chronic Pain (ED) Additional Instructions: Take baclofen has needed for muscle spasms, neck and back pain Take penicillin 3 times daily for next 7 days to treat a likely developing infection in your mouth Follow-up with your primary doctor Prescriptions: New baclofen 10 mg tablet 10 mg PO BID Qty: 10 0RF penicillin V potassium 500 mg tablet 500 mg PO TID Qty: 21 0RF No Action pioglitazone 15 mg tablet 15 mg PO DAILY 30 Days Qty: 30 11RF (DME) lancets [TRUEplus Lancets] 33 gauge misc See Rx Instructions .Route Qty: 100 11RF Rx Instructions: As directed to test blood sugar 3-4 times a day (DME) blood-glucose meter [OneTouch Verio Flex meter] Mis See Rx Instructions .Route Qty: 1 0RF Rx Instructions: As directed (DME) lancets [OneTouch UltraSoft Lancets] [facility] [place] See Rx Instructions .Route Qty: 200 5RF Rx Instructions: As directed cholecalciferol (vitamin D3) 25 mcg (1,000 unit) capsule 25 mcg PO DAILY 30 Days Qty: 30 6RF acetaminophen 500 mg tablet 500 mg PO Q12H PRN (Reason: Pain) cyclobenzaprine 5 mg tablet 5 mg PO TID PRN (Reason: Pain) ferrous sulfate 325 mg (65 mg iron) tablet 325 mg PO TID Pulmicort Flexhaler 90 mcg/actuation aerosol powdr breath activated 2 inh inhalation BID docusate sodium [Colace] 100 mg capsule 200 mg PO BEDTIME Qty: 60 5RF (DME) OneTouch Verio test strips Strip See Rx Instructions .Route Qty: 100 11RF Rx Instructions: As directed calcium citrate-vitamin D3 [Citracal-D3 Petites] 200 mg-6.25 mcg (250 unit) tablet 2 tab PO BID 30 Days Qty: 120 3RF albuterol sulfate [Ventolin HFA] 90 mcg/actuation Hfa Aerosol Inhaler 2 puff INHALATION Q4-6H PRN (Reason: Shortness Of Breath) Flovent HFA 110 mcg/actuation HFA aerosol inhaler 1 puff INHALATION BID lidocaine 5 % adhesive patch,medicated 1 patch topical DAILY PRN (Reason: pain) Qty: 15 0RF Rx Instructions: leave on most painful area for up to 12 hrs (DME) pen needle, diabetic 32 gauge x 5/32 needle See Rx Instructions .ROUTE QID Qty: 50 Rx Instructions: As directed sodium zirconium cyclosilicate 5 gram powder in packet 5 g PO 2XW loratadine 10 mg tablet 10 mg PO QAM clopidogrel 75 mg tablet 75 mg PO DAILY Lantus Solostar U-100 Insulin 100 unit/mL (3 mL) insulin pen 34 unit subcut BEDTIME insulin lispro [Humalog KwikPen Insulin] 100 unit/mL insulin pen 12 unit subcut TID metoprolol tartrate 50 mg tablet 50 mg PO BID amlodipine 5 mg tablet 5 mg PO DAILY omeprazole 20 mg capsule,delayed release(DR/EC) 20 mg PO DAILY furosemide 20 mg tablet 20 mg PO DAILY atorvastatin [Lipitor] 80 mg tablet 80 mg PO DAILY ezetimibe [Zetia] 10 mg tablet 10 mg PO DAILY Qty: 90 3RF Ozempic 0.25 mg or 0.5 mg (2 mg/3 mL) pen injector 0.25 mg subcut QWEEK 30 Days Qty: 2 11RF Rx Instructions: for 4 weeks
== END 2022-08-08 19:33 | disposition home or self-care (01) ==
PROVIDERS: Emergency Provider Emergency Medicine; PCP Internal Medicine
DX: M54.2 Cervicalgia (principal); M54.50 Low back pain, unspecified; R51.9 Headache, unspecified
CPT/HCPCS: 99282; 99283

== ENCOUNTER 2022-10-24 13:56 | Outpatient (REF) | payer OTHER, SELFPAY ==
[2022-10-25 02:16] LABS: Alanine Aminotransferase 21 U/L (0-31); Albumin Level 4.3 g/dL (3.5-5.0); Alkaline Phosphatase 79 U/L (39-117); Anion Gap 12 (12-20); Aspartate Amino Transferase 20 U/L (5-31); Bilirubin Total 0.2 mg/dL (0.0-1.0); Blood Urea Nitrogen 36 mg/dL (9-16); Calcium 10.6 mg/dL (8.4-10.2); Carbon Dioxide 29 mmol/L (22-29); Chloride 108 mmol/L (96-108); Estimated Glomerular Filt Rate 32; Glucose Random 96 mg/dL (60-115); Phosphorus 3.4 mg/dL (2.7-4.5); Potassium 5.2 mmol/L (3.3-5.1); Sodium 144 mmol/L (135-145); Total Protein 7.4 g/dL (6.5-8.0); Vitamin D 25-OH Total 45.5 ng/mL (>30)
[2022-10-25 05:26] LABS: Estimated Average Glucose 197 mg/dL; Hemoglobin A1c % 8.5 %
[2022-10-25 13:59] LABS: Calcium (PTHI) 10.7 mg/dL (8.6-10.4); PTHI 49 pg/mL (16-77)
== END 2022-10-24 13:57 | disposition home or self-care (01) ==
LOC: HO.LAB 13:56
PROVIDERS: PCP Internal Medicine; Visit Provider Internal Medicine
DX: M81.0 Age-related osteoporosis without current pathological fracture (principal); E21.3 Hyperparathyroidism, unspecified; E55.9 Vitamin D deficiency, unspecified; E11.65 Type 2 diabetes mellitus with hyperglycemia; Z79.4 Long term (current) use of insulin
CPT/HCPCS: 36415; 80053; 82306; 83036; 83970; 84100

== ENCOUNTER 2022-10-26 12:05 | Outpatient (REF) | payer OTHER, SELFPAY ==
--- NOTE | ~2022-10-26 | US_ITS ---
EXAMINATION: US THYROID CLINICAL INFORMATION: Nontoxic goiter, unspecified. COMPARISON: None available. TECHNIQUE: Linear transducer grayscale and color Doppler examination with attention to the region of the thyroid. FINDINGS: SIZE: Measurements of the thyroid lobes and nodules are given in sagittal, anteroposterior and transverse dimensions respectively. Right Thyroid Lobe: 4.0 x 1.6 x 1.5 cm, volume 5.0 mL. Parenchyma: The gland echotexture is homogeneous. Thyroid vascularity is normal. Left Thyroid Lobe: 3.3 x 1.3 x 1.5 cm, volume 3.5 mL. Parenchyma: The gland echotexture is homogeneous. Thyroid vascularity is normal. Isthmus: 0.4 cm in maximum AP dimension. Estimated total number of nodules greater than or equal to 1 cm: 0. Pet Caretaker nodules are described as follows: 1. Location: Right inferior. Size: 0.3 x 0.2 x 0.2 cm, volume 0.006 mL. Nodule characteristics: Composition: Cystic(0). ACR TI-RADS total points: 0 ACR TI-RADS category: 1 NODES: No lymphadenopathy is seen in the tissue surrounding the thyroid gland. US/US thyroid IMPRESSION: Normal size homogeneous thyroid gland with a 0.3 cm cystic nodule in the lower pole of the right lobe, TR 1. Based on ACR TI-RADS recommendations, no further follow-up recommended. ACR TI-RADS RECOMMENDATION REFERENCE: Ultrasound-guided fine-needle aspiration, followup ultrasound, no further follow up. * TR1 (0 point) and TR2 (2 points): No FNA or follow up. * TR3 (3 points): FNA if more than or equal to 2.5 cm in maximum dimension, followup ultrasound in 1, 3 and 5 years if 1.5 to 2.4 cm in maximum dimension. * TR4 (4-6 points): FNA if more than or equal to 1.5 cm in maximum dimension, followup ultrasound in 1, 2, 3 and 5 years if 1 to 1.4 cm in maximum dimension. * TR5 (more than or equal to 7 points): FNA if more than or equal to 1 cm in maximum dimension, followup ultrasound every year for 5 years if 0.5 to 0.9 cm in maximum dimension. * TR3, TR4 or TR5 nodules that are below the size threshold for followup receive no follow up.
== END 2022-10-26 12:06 | disposition home or self-care (01) ==
LOC: HO.US 12:05
PROVIDERS: Visit Provider Internal Medicine
DX: E04.9 Nontoxic goiter, unspecified (principal)
CPT/HCPCS: 76536

== ENCOUNTER 2022-11-07 14:21 | Outpatient (REF) | payer OTHER, SELFPAY ==
[2022-11-07 16:32] LABS: Alanine Aminotransferase 20 U/L (0-31); Albumin Level 4.4 g/dL (3.5-5.0); Alkaline Phosphatase 80 U/L (39-117); Anion Gap 12 (12-20); Aspartate Amino Transferase 20 U/L (5-31); Bilirubin Total 0.2 mg/dL (0.0-1.0); Blood Urea Nitrogen 34 mg/dL (9-16); Calcium 10.5 mg/dL (8.4-10.2); Carbon Dioxide 29 mmol/L (22-29); Chloride 108 mmol/L (96-108); Estimated Glomerular Filt Rate 37; Glucose Random 134 mg/dL (60-115); Potassium 4.9 mmol/L (3.3-5.1); Sodium 144 mmol/L (135-145); Total Protein 7.4 g/dL (6.5-8.0)
== END 2022-11-07 14:22 | disposition home or self-care (01) ==
LOC: HO.HHCL 14:21
PROVIDERS: Visit Provider Internal Medicine
DX: E87.5 Hyperkalemia (principal)
CPT/HCPCS: 36415; 80053

== ENCOUNTER 2022-12-14 14:05 | Outpatient (AMB) | payer OTHER, MEDICAID, SELFPAY ==
--- NOTE | 2022-12-14 14:07 | A.OFFVIS_ITS ---
Intake Vital Signs 12/14/22 14:11 Height 4 ft 11 in Weight 191 lb 12.835 oz BMI 38.7 BP 110/62 Blood Pressure Location Rt brachial Position Sitting Pulse 78 Pulse Source Pulse Oximeter Intake Visit Reasons: DM/ CONFIRMED Intake Note: New patient to Dr. Phan present today for Diabetes Mellitus. Previously followed by Dr. Gaines. 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: Yes Gear Tooth Lapping Machine Operator Language: Business Analyst Sales Operations Name: Flora, Medical Staff Information Interpreted: non-clinical & clinical Accompanied by: Self / Same As Patient Allergies morphine [Morphine] Allergy (Intermediate, Verified 12/14/22 14:12) TACHYCARDIA, ANXIETY oxycodone [Percocet] Allergy (Intermediate, Verified 12/14/22 14:12) Palpitations prednisone [PREDNISONE] Adverse Reaction (Intermediate, Verified 12/14/22 14:12) ANXIETY Medication List - Last Reconciled 12/14/22 by Zev Phan MD acetaminophen 500 mg PO Q12H PRN albuterol sulfate 90 mcg/actuation (Ventolin HFA) 2 puffs inhalation Q4-6H PRN alcohol swabs (Easy Touch Alcohol Prep Pads) pad topical BID amlodipine 5 mg PO DAILY atorvastatin (Lipitor) 80 mg PO DAILY baclofen 10 mg PO BID blood sugar diagnostic (OneTouch Verio test strips) As directed blood-glucose meter (OneTouch Verio Flex Meter) As directed budesonide 90 mcg/actuation (Pulmicort Flexhaler) 2 inhalations inhalation BID calcium citrate-vitamin D3 200 mg-6.25 mcg (250 unit) (Citracal-D3 Petites) 2 tabs PO BID 30 days cholecalciferol (vitamin D3) (Vitamin D3) 25 mcg PO QAM clopidogrel 75 mg PO DAILY cyclobenzaprine 5 mg PO TID PRN docusate sodium (Colace) 200 mg (2 x 100 mg) PO BEDTIME ezetimibe (Zetia) 10 mg PO DAILY ferrous sulfate 325 mg PO TID fluticasone propionate 110 mcg/actuation (Flovent HFA) 1 puff inhalation BID furosemide 20 mg PO DAILY insulin glargine (Lantus Solostar U-100 Insulin) 45 units subcut BEDTIME insulin lispro (Humalog KwikPen (U-100) Insulin) 14 units subcut TID lancets (TRUEplus Lancets) As directed to test blood sugar 3-4 times a day lancets (OneTouch UltraSoft Lancets) As directed lidocaine 5% 1 patch topical DAILY PRN loratadine 10 mg PO QAM metoprolol tartrate 50 mg PO BID omeprazole 20 mg PO DAILY pen needle, diabetic As directed penicillin V potassium 500 mg PO TID pioglitazone 15 mg PO DAILY 30 days semaglutide (Ozempic) 0.25 mg (0.368 mL) subcut QWEEK 30 days sodium zirconium cyclosilicate 5 grams PO 2XW HPI HPI Comments History of Present Illness Details 67 YO F with PMHx T2DM, HTN, HLD, Vitamin D deficiency who is seen in F/U for T2DM and and Hypercalcemia. The patient last saw Dr. Gaines on 06/13/2022 1) T2DM: Initially diagnosed with T2DM in 1999 during a routine screening physical. Was initially started on treatment with orals, and has been requiring insulin since 2013. Current regimen Lantus 34 units qHS, Humalog 12 units AC, Actos 15 mg PO daily and Ozempic 0.25 mg mg once a week. She reports good compliance with this regimen. Checking sugars 1 times per day. Average sugar 180 with range 108-239. Most recent A1C: 8.5% 10/24/2022, up from 6.9% 08/25/2021. . Has not had any recent episodes of hypoglycemia. Treats lows with juice or a cookie, but does not check sugar after. Family history of T2DM in her mother, daughter and her siblings. Last eye exam , saw optho 1 yr ago needs to make appt Denies neuropathy, does not see podiatry. Has Nephropathy, not on ROMI/ARB. UAC 17.8 06/09/2022. Has CKD with GFR of 35. Sees nephro. Has HLD, on Atorvastatin 80 mg PO daily and Zetia 10 mg PO daily. LDL 72 06/09/2022. Has CAD. Has never had diabetes education. 2) Hypercalcemia: Has a history of hypercalcemia with elevated PTH. Did not complete full workup for this. 24 hour urine for calcium was low but collection was inadequate with low 24 hour urinary creatinine DXA: 03/01/2022 FINDINGS: AP SPINE L1-L4: Current: BMD 0.984 g/cm2, Z-score -0.8, T-score -1.6, osteopenia, 2.3% increase from previous, 2.9% decrease from baseline (<5% change is not significant). Prior: BMD 0.962 g/cm2. Baseline: BMD 1.013 g/cm2. LEFT FEMUR, NECK: Current: BMD 0.820 g/cm2, Z-score -0.5, T-score -1.6, osteopenia. Prior: BMD 0.779 g/cm2. Baseline: BMD 0.921 g/cm2. LEFT FEMUR, TOTAL: Current: BMD 0.839 g/cm2, Z-score -0.6, T-score -1.3, osteopenia, 3.1% decrease from previous, 17.5% decrease from baseline (<5% change is not significant). Prior: BMD 0.866 g/cm2. Baseline: BMD 1.017 g/cm2. LEFT FOREARM RADIUS 33%: BMD 0.618 g/cm2, Z-score -1.4, T-score -2.9, osteoporosis, 9.5% decrease from baseline (<5% change is not significant). Labs: Laboratory Tests 04/28/21 04/28/21 04/28/21 07:25 07:25 07:25 Sodium Potassium Creatinine Estimated GFR Hemoglobin A1c % 6.4 LDL Cholesterol Di rect 109 H 25-OH Vitamin D To benigno 28.5 PTH Intact Calcium (PTH Intac t) Microalb/Creat Rat io Ur Calcium 24 Hr 08/19/21 08/19/21 08/25/21 14:45 14:45 14:41 Sodium 145 Potassium 4.7 Creatinine 1.74 H 1.64 H Estimated GFR 29 31 Hemoglobin A1c % LDL Cholesterol Di rect 25-OH Vitamin D To benigno 32.5 PTH Intact 191 H Calcium (PTH Intac t) 9.9 Microalb/Creat Rat io Ur Calcium 24 Hr 08/25/21 08/25/21 08/30/21 14:41 14:41 06:00 Sodium Potassium Creatinine Estimated GFR Hemoglobin A1c % 6.9 LDL Cholesterol Di rect 108 H 25-OH Vitamin D To benigno PTH Intact 136 H Calcium (PTH Intac t) 10.3 Microalb/Creat Rat io Ur Calcium 24 Hr 7 L 06/09/22 06/09/22 06/09/22 14:26 14:26 14:26 Sodium 145 Potassium 5.0 Creatinine 1.49 H Estimated GFR 35 Hemoglobin A1c % 7.2 LDL Cholesterol Di rect 72 25-OH Vitamin D To benigno 44.3 PTH Intact 115 H Calcium (PTH Intac t) 9.9 Microalb/Creat Rat io Ur Calcium 24 Hr 06/09/22 14:28 Sodium Potassium Creatinine Estimated GFR Hemoglobin A1c % LDL Cholesterol Di rect 25-OH Vitamin D To benigno PTH Intact Calcium (PTH Intac t) Microalb/Creat Rat io 17.8 Ur Calcium 24 Hr PFSH Medical History (Updated 08/09/22 @ 00:01 by Derick Bartlett) Osteoporosis Goiter Hyperparathyroidism Hypercalcemia Vitamin D deficiency HLD (hyperlipidemia) HTN (hypertension) T2DM (type 2 diabetes mellitus) On beta anurag at home Chronic constipation Diabetes Anemia GERD (gastroesophageal reflux disease) Sleep apnea Asthma CAD (coronary artery disease) Angina pectoris HTN (hypertension) Surgical History Hx of heart artery stent Hx of cholecystectomy History of esophagogastroduodenoscopy (EGD) H/O colonoscopy Family History Father Liver problem Mother Diabetes Obesity Social History Household Members Other:: With Housing: House Alcohol intake: never Patient Tobacco Use Status: Never used Tobacco Current occupational status: disabled Sexual orientation: Straight/Heterosexual Gender identity: Female Physical Exam Vital Signs: Last Vital Signs Pulse 78 12/14/22 14:11 BP 110/62 12/14/22 14:11 BMI result Body Mass Index 38.7 Absence of Cushingoid features. Absence of acromegalic features. Neck exam reveals nl size thyroid about 15 gms. No thyroid nodules palpable. No carotid bruits present. Lungs CTA. Heart S1 S2, Reg R/R. No M/R/ G. Skin exam reveals absence of vitiligo or acanthosis nigricans. Abdominal exam reveals Soft NT/ND with NA BS. No organomegaly present. Neck Other: . Extrem Other: Visual exam of foot performed. No ulcerations or open lesions. No onchomycosis, no callouses.Pulses 2 + distally Sensation intact to monofilament exam. 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 Plan is that the patient check her point cares pre and post meals. Will offer to start sensor either Collin or Dexcom. Cannot make any changes the insulin regimen today because of lack of data. Will have patient follow up with lay out and detail drafter. One sensors in place, could consider switching Ozempic to Mounjaro for better glycemic control. Could also consider adding an SGlT 2 inhibitor like Farxiga or Jardiance for renal protection. (2) Hypercalcemia: Code(s): E83.52 - Hypercalcemia Plan: Most likely consistent with mild primary hyperparathyroidism will urine collection was inadequate to assess for FHH. No clear indication for surgery. Will get renal ultrasound to rule out nephrocalcinosis and nephrolithiasis Orders: Orders US renal BI 12/14/22 E83.52 - Hypercalcemia Coding Level of Care Code Est Pt Level 4 (07000) Diagnoses Type 2 diabetes mellitus with hyperglycemia, with long-term current use of insulin E11.65; Z79.4 Diabetes mellitus complication status: with hyperglycemia Diabetes mellitus nursing home insulin use: with predatory animal exterminator use Hypercalcemia E83.52
[2022-12-14 14:11] VITALS: BP 110/62; PULSE 78; BMI 38.7
[2022-12-14 14:24] LABS: Glucose, Whole Blood 82 mg/dL (60-115)
== END 2022-12-14 14:53 | disposition home or self-care (01) ==
PROVIDERS: PCP Internal Medicine; Referring Provider Internal Medicine; Visit Provider Internal Medicine Endocrinology, Diabetes & Metabolism
DX: E11.65 Type 2 diabetes mellitus with hyperglycemia (principal); Z79.4 Long term (current) use of insulin; E83.52 Hypercalcemia
CPT/HCPCS: 99214

== ENCOUNTER → 2022-12-14 14:05 | Outpatient (BNVA) | payer OTHER, MEDICAID, SELFPAY | PROVIDERS: Visit Provider Internal Medicine Endocrinology, Diabetes & Metabolism | DX: E11.65 Type 2 diabetes mellitus with hyperglycemia (principal); E83.52 Hypercalcemia; Z79.4 Long term (current) use of insulin | CPT/HCPCS: 82947; 99212 ==

== ENCOUNTER 2023-01-19 14:08 | Outpatient (REF) | payer OTHER, MEDICAID, SELFPAY ==
[2023-01-19 16:31] LABS: Alanine Aminotransferase 25 U/L (0-31); Albumin Level 4.3 g/dL (3.5-5.0); Alkaline Phosphatase 88 U/L (39-117); Anion Gap 14 (12-20); Aspartate Amino Transferase 26 U/L (5-31); Bilirubin Direct < 0.2 mg/dL (0.0-0.5); Bilirubin Total 0.2 mg/dL (0.0-1.0); Blood Urea Nitrogen 31 mg/dL (9-16); Calcium 10.6 mg/dL (8.4-10.2); Carbon Dioxide 30 mmol/L (22-29); Chloride 103 mmol/L (96-108); Estimated Glomerular Filt Rate 32; Glucose Random 265 mg/dL (60-115); Sodium 142 mmol/L (135-145); Total Protein 7.5 g/dL (6.5-8.0)
[2023-01-19 16:41] LABS: Cholesterol 152 mg/dL (<200); HDL Cholesterol 46 mg/dL (>40); LDL Cholesterol Calculated 71 mg/dL (<100); Triglycerides 178 mg/dL (<150)
[2023-01-19 16:56] LABS: Reflex LDLD? No
== END 2023-01-19 14:09 | disposition home or self-care (01) ==
LOC: HO.HHCL 14:08
PROVIDERS: Visit Provider Internal Medicine
DX: E11.22 Type 2 diabetes mellitus with diabetic chronic kidney disease (principal); N18.31 Chronic kidney disease, stage 3a; E78.2 Mixed hyperlipidemia; Z79.4 Long term (current) use of insulin
CPT/HCPCS: 36415; 80048; 80061; 80076

== ENCOUNTER 2023-02-22 07:42 | Outpatient (REF) | payer OTHER, SELFPAY | END 2023-02-22 07:43 | disposition home or self-care (01) | LOC: HO.MAMMO 07:42 | PROVIDERS: PCP Internal Medicine; Visit Provider Internal Medicine | DX: Z12.31 Encounter for screening mammogram for malignant neoplasm of breast (principal) | CPT/HCPCS: 77063; 77067 ==

== ENCOUNTER → 2023-02-22 08:15 | Outpatient (BNV) | payer OTHER, SELFPAY | PROVIDERS: PCP Internal Medicine; Visit Provider Radiology Diagnostic Radiology | DX: Z12.31 Encounter for screening mammogram for malignant neoplasm of breast (principal) | CPT/HCPCS: 77063; 77067 ==

== ENCOUNTER 2023-03-21 12:36 | Outpatient (AMB) | payer OTHER, SELFPAY ==
--- NOTE | 2023-03-21 12:44 | A.OFFVIS_ITS ---
Intake Vital Signs 03/21/23 12:45 Height 4 ft 11 in Weight 187 lb BMI 37.8 BP 148/71 H Blood Pressure Location Lt brachial Position Sitting Pulse 80 Intake Visit Reasons: follow up req by patient Intake Note: Patient follow up for constipation. Patient cc: constipation and acid reflex. Sap Basis Consultant Required: Yes Sap Basis Consultant Name: [facility] [place] [facility] Allergies morphine [Morphine] Allergy (Intermediate, Verified 03/21/23 12:43) TACHYCARDIA, ANXIETY oxycodone [Percocet] Allergy (Intermediate, Verified 03/21/23 12:43) Palpitations prednisone [PREDNISONE] Adverse Reaction (Intermediate, Verified 03/21/23 12:43) ANXIETY Medication List - Last Reconciled 03/21/23 by Deepti Moss PA-C acetaminophen 500 mg PO Q12H PRN albuterol sulfate 90 mcg/actuation (Ventolin HFA) 2 puffs inhalation Q4-6H PRN alcohol swabs (Easy Touch Alcohol Prep Pads) pad topical BID amlodipine 5 mg PO DAILY atorvastatin (Lipitor) 80 mg PO DAILY baclofen 10 mg PO BID blood sugar diagnostic (Nefsisuch Verio test strips) As directed blood-glucose meter (AppMyDayTouch Verio Flex Meter) As directed budesonide 90 mcg/actuation (Pulmicort Flexhaler) 2 inhalations inhalation BID calcium citrate-vitamin D3 200 mg-6.25 mcg (250 unit) ([place] Calcium-Vitamin D3) 2 tabs PO BID cholecalciferol (vitamin D3) (Vitamin D3) 25 mcg PO QAM clopidogrel 75 mg PO DAILY cyclobenzaprine 5 mg PO TID PRN docusate sodium 200 mg (2 x 100 mg) PO BEDTIME ezetimibe 10 mg PO QAM ferrous sulfate 325 mg PO TID fluticasone propionate 110 mcg/actuation (Flovent HFA) 1 puff inhalation BID furosemide 20 mg PO DAILY insulin glargine (Lantus Solostar U-100 Insulin) 45 units subcut BEDTIME insulin lispro (Humalog KwikPen (U-100) Insulin) 14 units subcut TID lancets (TRUEplus Lancets) As directed to test blood sugar 3-4 times a day lancets (AppMyDayTouch UltraSoft Lancets) As directed lidocaine 5% 1 patch topical DAILY PRN loratadine 10 mg PO QAM metoprolol tartrate 50 mg PO BID omeprazole 20 mg PO DAILY pen needle, diabetic As directed penicillin V potassium 500 mg PO TID pioglitazone 15 mg PO DAILY 30 days semaglutide (Ozempic) 0.25 mg (0.368 mL) subcut QWEEK 30 days sodium zirconium cyclosilicate 5 grams PO 2XW HPI HPI Comments History of Present Illness Details 67-year-old female here for [id number] patricia is unsure why she is here. She cannot name medications she is taking Last seen July of this year after EGD and colonoscopy She continues to have constipation however she does not follow a consistent bowel regimen-BM every couple days no rectal bleeding Appetite is very good she has acid reflux dependent on what she eats she does no t follow any specific elimination diet. She does not smoke or drink She is diabetic, her blood sugars fluctuate. She has no nausea, vomiting, abdominal pain, hematemesis, hematochezia fever or chills [facility] Medical History (Updated 03/21/23 @ 13:57 by Deepti Moss PA-C) Osteoporosis Goiter Hyperparathyroidism Hypercalcemia Vitamin D deficiency HLD (hyperlipidemia) HTN (hypertension) T2DM (type 2 diabetes mellitus) On beta anurag at home Chronic constipation Diabetes Anemia GERD (gastroesophageal reflux disease) Sleep apnea Asthma CAD (coronary artery disease) Angina pectoris HTN (hypertension) Surgical History Hx of heart artery stent Hx of cholecystectomy History of esophagogastroduodenoscopy (EGD) H/O colonoscopy Family History Father Liver problem Mother Diabetes Obesity Social History Household Members Other:: With Housing: House Alcohol intake: never Patient Tobacco Use Status: Never used Tobacco Current occupational status: disabled Sexual orientation: Straight/Heterosexual Gender identity: Female Review of Systems Const All systems reviewed & are unremarkable except as noted in HPI and below Card Denies chest pain and Denies dyspnea Resp Denies dyspnea GI Denies abdominal pain, Denies hematochezia, Reports constipation, Reports heartburn, Denies nausea and Denies vomiting Musc Reports back pain Physical Exam Vital Signs: Last Vital Signs Pulse 80 03/21/23 12:45 BP 148/71 H 03/21/23 12:45 BMI result Body Mass Index 37.8 Const General: comfortable and no acute distress Nutritional Appearance: overweight Orientation/consciousness: patient oriented x3 Limitations: language barrier Eyes Sclerae: sclerae normal Resp Effort & Inspection: normal respiratory effort and able to speak in complete sentences Auscultation: clear to auscultation bilaterally and no wheezes Cardio Rate: regular rate Rhythm: regular rhythm Heart sounds: S1 normal heart sound present and S2 normal heart sound present GI Palpation (GI): Soft to palpation and nontender Auscultation: normal bowel sounds Skin General skin exam: no rashes or lesions noted Neuro General: patient oriented x3 Extrem General: Yes full ROM Psych Speech and movement: Clear speech present Affect: normal affect Attitude: cooperative Thought process: Normal thought process present Thought content: Normal thought content present Assessment & Plan Assessment & Plan (1) Diverticulosis of colon: Comment: High-fiber, fiber supplement Code(s): K57.30 - Diverticulosis of large intestine without perforation or abscess without bleeding Plan: Maintain high-fiber diet (2) Chronic constipation: Comment: Reinforced importance of consistent bowel regimen Colace 200 mg and MiraLax q.h.s., maintain high-fiber diet. Likely due to iron supplement-as well as diabetes not well controlled per her report. Medication list reviewed Code(s): K59.09 - Other constipation Plan: Consistent bowel regimen Maintain high-fiber diet (3) Poor historian: Comment: She sees a telephone lineworker ( hx [place]- ) and a supervisor fabrication and assembly ( asthma) Code(s): Z78.9 - Other specified health status Plan: Reinforced importance accurate medication list (4) GERD (gastroesophageal reflux disease): Code(s): K21.9 - Gastro-esophageal reflux disease without esophagitis Plan: Reflux precautions reviewed Continue PPI Try to identify and avoid culprits Medications: New polyethylene glycol 3350 (Miralax) Take QHS 17 grams PO DAILY 30 days 510 grams 6RF docusate sodium (Colace) 200 mg (2 x 100 mg) PO BEDTIME 30 days 60 caps 5RF calcium polycarbophil (Fiber Laxative (calcium polycarbophil)) 1,250 mg (2 x 625 mg) PO DAILY 30 days 60 tabs 3RF bisacodyl (Dulcolax (bisacodyl)) 10 mg [place] DAILY PRN 20 ea 0RF constipation Patient Instructions: Pleasant 67-year-old female follows up -for progress chronic constipation and reflux. She is accompanied - reservations specialist Reinforced plan of care-importance of knowing medications and action HFD- literature given, avoid straining with hemorrhoids Diverticulosis/ Diverticulitis- ER protocol Encouraged to call questions or concerns Appreciate the opportunity assist in the care the patient Coding Level of Care Code Est Pt Level 3 (02731) Diagnoses Diverticulosis of colon K57.30 Chronic constipation K59.09 Poor historian Z78.9 GERD (gastroesophageal reflux disease) K21.9 Time Spent (min) 30 Comment Sap Basis Consultant,
[2023-03-21 12:45] VITALS: BP 148/71; PULSE 80; BMI 37.8
== END 2023-03-21 13:21 | disposition home or self-care (01) ==
PROVIDERS: PCP Internal Medicine; Visit Provider Physician Assistant
DX: K57.30 Diverticulosis of large intestine without perforation or abscess without bleeding (principal); K59.09 Other constipation; Z78.9 Other specified health status; K21.9 Gastro-esophageal reflux disease without esophagitis
CPT/HCPCS: 99213

== ENCOUNTER → 2023-03-21 12:36 | Outpatient (BNVA) | payer OTHER, SELFPAY | PROVIDERS: PCP Internal Medicine; Visit Provider Physician Assistant | DX: K57.30 Diverticulosis of large intestine without perforation or abscess without bleeding (principal); K59.09 Other constipation; K21.9 Gastro-esophageal reflux disease without esophagitis; Z78.9 Other specified health status | CPT/HCPCS: 99212 ==

== ENCOUNTER 2023-06-16 12:52 | Outpatient (REF) | payer OTHER, SELFPAY ==
--- NOTE | ~2023-06-16 | US_ITS ---
EXAMINATION: US RETROPERITONEAL LIMITED (RENAL ONLY) CLINICAL INFORMATION: Hypercalcemia. History of primary hyperparathyroidism. Rule out nephrolithiasis, nephrocalcinosis. COMPARISON: Renal ultrasound 01/18/2016. TECHNIQUE: Real-time imaging of the kidneys. FINDINGS: RIGHT KIDNEY: 9.8 x 3.9 x 4.3 cm (SAG x AP x TRV). The kidney is normal in size and echogenicity. Renal cortical thickness is normal with a lobulated contour. No renal calculi or hydronephrosis. Two benign Bosniak class I renal cysts are noted, the largest measuring 1.2 cm which require no additional imaging or follow-up. No solid renal masses are seen. LEFT KIDNEY: 10.4 x 4.4 x 3.9 cm (SAG x AP x TRV). The kidney is normal in size and echogenicity. Renal cortical thickness is normal with a lobulated contour. No calculi or focal parenchymal lesions. No hydronephrosis. US/US renal BI IMPRESSION: Negative exam.
== END 2023-06-16 12:53 | disposition home or self-care (01) ==
LOC: HO.US 12:52
PROVIDERS: PCP Internal Medicine; Visit Provider Internal Medicine Endocrinology, Diabetes & Metabolism
DX: E83.52 Hypercalcemia (principal); Z86.39 Personal history of other endocrine, nutritional and metabolic disease
CPT/HCPCS: 76775

== ENCOUNTER 2023-06-20 13:20 | Outpatient (AMB) | payer OTHER, SELFPAY ==
[2023-06-20 13:25] VITALS: BP 148/74; PULSE 76; BMI 38.6
--- NOTE | 2023-06-20 13:25 | MHC.OFFVIS ---
Intake Vital Signs 06/20/23 13:25 Height 4 ft 11 in Weight 191 lb 2.252 oz BMI 38.6 BP 148/74 H Blood Pressure Location Lt brachial Position Sitting Pulse 76 Pulse Source Pulse Oximeter Intake Visit Reasons: DM-confirmed Intake Note: Patient present today to follow up on Type 2 Diabetes Mellitus. Last Diabetic Eye exam: 2022 Last Podiatry Visit: Doesn't have Random Glucose: 156 mg/dl HgA1C: 7.4% Tipple Engineer Required: Yes Tipple Engineer Language: Laminator [employer] Boards Name: Carla staff Information Interpreted: non-clinical & clinical Accompanied by: Self / Same As Patient Allergies morphine [Morphine] Allergy (Intermediate, Verified 06/20/23 13:31) TACHYCARDIA, ANXIETY oxycodone [Percocet] Allergy (Intermediate, Verified 06/20/23 13:31) Palpitations prednisone [PREDNISONE] Adverse Reaction (Intermediate, Verified 06/20/23 13:31) ANXIETY HPI HPI Comments History of Present Illness Details 67 YO F with PMHx T2DM, HTN, HLD, Vitamin D deficiency who is seen in F/U for T2DM and and Hypercalcemia. 1) T2DM: Initially diagnosed with T2DM in 1999 during a routine screening physical. Was initially started on treatment with orals, and has been requiring insulin since 2014. Current regimen Lantus 34 units qHS, Humalog 12 units AC, Actos 15 mg PO daily and Ozempic 0.25 mg mg once a week. She reports good compliance with this regimen. Glucometer download shows POCs once a day. Average glucose is 210 with range of 114-325. 28% range with 72% hyperglycemia and no hypoglycemia Has, not had any recent episodes of hypoglycemia. Treats lows with juice or a cookie, but does not check sugar after. Family history of T2DM in her mother, daughter and her siblings. Last eye exam , saw optho last appt needs to make appt Denies neuropathy, does not see podiatry. Has Nephropathy, not on ROMI/ARB. UAC 17.8 06/09/2022. Has CKD with GFR of 35. Sees nephro. Has HLD, on Atorvastatin 80 mg PO daily and Zetia 10 mg PO daily. LDL 72 06/09/2022. Has CAD. Has never had diabetes education. 2) Hypercalcemia: Has a history of hypercalcemia with elevated PTH. Did not complete full workup for this. 24 hour urine for calcium was low but collection was inadequate with low 24 hour urinary creatinine DXA: 03/01/2022 FINDINGS: AP SPINE L1-L4: Current: BMD 0.984 g/cm2, Z-score -0.8, T-score -1.6, osteopenia, 2.3% increase from previous, 2.9% decrease from baseline (<5% change is not significant). Prior: BMD 0.962 g/cm2. Baseline: BMD 1.013 g/cm2. LEFT FEMUR, NECK: Current: BMD 0.820 g/cm2, Z-score -0.5, T-score -1.6, osteopenia. Prior: BMD 0.779 g/cm2. Baseline: BMD 0.921 g/cm2. LEFT FEMUR, TOTAL: Current: BMD 0.839 g/cm2, Z-score -0.6, T-score -1.3, osteopenia, 3.1% decrease from previous, 17.5% decrease from baseline (<5% change is not significant). Prior: BMD 0.866 g/cm2. Baseline: BMD 1.017 g/cm2. LEFT FOREARM RADIUS 33%: BMD 0.618 g/cm2, Z-score -1.4, T-score -2.9, osteoporosis, 9.5% decrease from baseline (<5% change is not significant). Labs: Laboratory Tests 04/28/21 04/28/21 04/28/21 07:25 07:25 07:25 Sodium Potassium Creatinine Estimated GFR Hemoglobin A1c % 6.4 LDL Cholesterol Di rect 109 H 25-OH Vitamin D To benigno 28.5 PTH Intact Calcium (PTH Intac t) Microalb/Creat Rat io Ur Calcium 24 Hr 08/19/21 08/19/21 08/25/21 14:45 14:45 14:41 Sodium 145 Potassium 4.7 Creatinine 1.74 H 1.64 H Estimated GFR 29 31 Hemoglobin A1c % LDL Cholesterol Di rect 25-OH Vitamin D To benigno 32.5 PTH Intact 191 H Calcium (PTH Intac t) 9.9 Microalb/Creat Rat io Ur Calcium 24 Hr 08/25/21 08/25/21 08/30/21 14:41 14:41 06:00 Sodium Potassium Creatinine Estimated GFR Hemoglobin A1c % 6.9 LDL Cholesterol Di rect 108 H 25-OH Vitamin D To benigno PTH Intact 136 H Calcium (PTH Intac t) 10.3 Microalb/Creat Rat io Ur Calcium 24 Hr 7 L 06/09/22 06/09/22 06/09/22 14:26 14:26 14:26 Sodium 145 Potassium 5.0 Creatinine 1.49 H Estimated GFR 35 Hemoglobin A1c % 7.2 LDL Cholesterol Di rect 72 25-OH Vitamin D To benigno 44.3 PTH Intact 115 H Calcium (PTH Intac t) 9.9 Microalb/Creat Rat io Ur Calcium 24 Hr 06/09/22 14:28 Sodium Potassium Creatinine Estimated GFR Hemoglobin A1c % LDL Cholesterol Di rect 25-OH Vitamin D To benigno PTH Intact Calcium (PTH Intac t) Microalb/Creat Rat io 17.8 Ur Calcium 24 Hr PFSH Medical History Osteoporosis Goiter Hyperparathyroidism Hypercalcemia Vitamin D deficiency HLD (hyperlipidemia) HTN (hypertension) T2DM (type 2 diabetes mellitus) On beta anurag at home Chronic constipation Diabetes Anemia GERD (gastroesophageal reflux disease) Sleep apnea Asthma CAD (coronary artery disease) Angina pectoris HTN (hypertension) Surgical History Hx of heart artery stent Hx of cholecystectomy History of esophagogastroduodenoscopy (EGD) H/O colonoscopy Family History Father Liver problem Mother Diabetes Obesity Social History Household Members Other:: With Housing: House Alcohol intake: never Patient Tobacco Use Status: Never used Tobacco Current occupational status: disabled Sexual orientation: Straight/Heterosexual Gender identity: Female Physical Exam Vital Signs: Last Vital Signs Pulse 76 06/20/23 13:25 BP 148/74 H 06/20/23 13:25 BMI result Body Mass Index 38.6 Absence of Cushingoid features. Absence of acromegalic features. Neck exam reveals nl size thyroid about 15 gms. No thyroid nodules palpable. No carotid bruits present. Lungs CTA. Heart S1 S2, Reg R/R. No M/R/ G. Skin exam reveals absence of vitiligo or acanthosis nigricans. Abdominal exam reveals Soft NT/ND with NA BS. No organomegaly present. Neck Other: . Extrem Other: Visual exam of foot performed. No ulcerations or open lesions. No onchomycosis, no callouses.Pulses 2 + distally Sensation intact to monofilament exam. Vibratory sensation sensed is intact with 128 Hz tuning fork Results AMB Hemoglobin A1c AMB Hemoglobin A1c 7.4 % Last Edit by SHAHEED Titus on 06/20/23 13:44 Results Reviewed Results Reviewed: Laboratory Last Values Glucose (Clinic) 156 mg/dL (60-115) H 06/20/23 13:33 Hgb A1c (Clinic) 7.4 % (4.0-6.0) H 06/20/23 13:39 Assessment & Plan Assessment & Plan (1) T2DM (type 2 diabetes mellitus): Code(s): E11.9 - Type 2 diabetes mellitus without complications Qualifiers: Diabetes mellitus complication status: with hyperglycemia Diabetes mellitus middle or intermediate school principal insulin use: with middle or intermediate school principal use Qualified Code(s): E11.65 - Type 2 diabetes mellitus with hyperglycemia; Z79.4 - middle or intermediate school principal (current) use of insulin Plan: 67-year-old female with history of type 2 diabetes being treated with Actos, Ozempic and basal-bolus insult with good but not optimal glycemic and known microvascular complications namely CKD stage IIIB. Plan is that the patient check her point cares pre and post meals. Will offer to start sensor either Collin or Dexcom. Prescribed Collin 3 with electrical installation inspector Cannot make any changes the insulin regimen today because of lack of data. Will have patient follow up with informatics educator to learn how to use the Collin. One sensors in place, could consider switching Ozempic to Mounjaro for better glycemic control. Could also consider adding an SGlT 2 inhibitor like Farxiga or Jardiance for renal protection. (2) Hypercalcemia: Code(s): E83.52 - Hypercalcemia Plan: Most likely consistent with mild primary hyperparathyroidism will urine collection was inadequate to assess for FHH. No clear indication for surgery. Renal ultrasound results are pending Orders: Orders AMB Hemoglobin A1c Today E11.65 - Type 2 diabetes mellitus with hyperglycemia, Z13.9 - Encounter for screening, unspecified, Z79.4 - penitentiary (current) use of insulin Microalbumin, Random (w Creat) Today E11.65 - Type 2 diabetes mellitus with hyperglycemia, Z79.4 - penitentiary (current) use of insulin Medications: New blood-glucose sensor (FreeStyle Collin 3 Sensor device) As directed- change every 14 days 2 ea 4RF blood-glucose meter,continuous (FreeStyle Collin 3 [place]) As directed 1 ea 0RF Coding Level of Care Code Est Pt Level 4 (74461) Diagnoses Type 2 diabetes mellitus with hyperglycemia, with long-term current use of insulin E11.65; Z79.4 Diabetes mellitus complication status: with hyperglycemia Diabetes mellitus middle or intermediate school principal insulin use: with group home use Hypercalcemia E83.52
[2023-06-20 13:38] LABS: Glucose, Whole Blood 156 mg/dL (60-115)
== END 2023-06-20 14:17 | disposition home or self-care (01) ==
PROVIDERS: PCP Internal Medicine; Visit Provider Internal Medicine Endocrinology, Diabetes & Metabolism
DX: Z13.9 Encounter for screening, unspecified (principal); E11.65 Type 2 diabetes mellitus with hyperglycemia; Z79.4 Long term (current) use of insulin; E83.52 Hypercalcemia
CPT/HCPCS: 99214

== ENCOUNTER → 2023-06-20 13:20 | Outpatient (BNVA) | payer OTHER, SELFPAY | PROVIDERS: PCP Internal Medicine; Visit Provider Internal Medicine Endocrinology, Diabetes & Metabolism | DX: E11.65 Type 2 diabetes mellitus with hyperglycemia (principal); E83.52 Hypercalcemia; Z79.4 Long term (current) use of insulin | CPT/HCPCS: 82947; 83036; 99212 ==

== ENCOUNTER 2023-06-21 14:33 | Outpatient (REF) | payer OTHER, SELFPAY ==
[2023-06-21 18:04] LABS: Creatinine Urine 131.64 mg/dL
== END 2023-06-21 14:34 | disposition home or self-care (01) ==
LOC: HO.LAB 14:33
PROVIDERS: PCP Internal Medicine; Visit Provider Internal Medicine Endocrinology, Diabetes & Metabolism
DX: E11.65 Type 2 diabetes mellitus with hyperglycemia (principal); Z79.4 Long term (current) use of insulin
CPT/HCPCS: 82043; 82570

== ENCOUNTER 2023-06-22 14:44 | Outpatient (REF) | payer OTHER, SELFPAY ==
[2023-06-29 23:29] LABS: HPV mRNA E6/E7 rflx Not Detected (Not Detected)
== END 2023-06-22 14:45 | disposition home or self-care (01) ==
LOC: HO.LNP 14:44
PROVIDERS: PCP Internal Medicine; Visit Provider Advanced Practice Midwife
DX: Z01.419 Encounter for gynecological examination (general) (routine) without abnormal findings (principal); R87.619 Unspecified abnormal cytological findings in specimens from cervix uteri
CPT/HCPCS: 87624; 88142

== ENCOUNTER 2023-06-22 14:44 | Outpatient (AMB) | payer OTHER, SELFPAY ==
--- NOTE | 2023-06-22 14:45 | MHC.OFFVIS ---
Intake Vital Signs 06/22/23 14:46 Height 4 ft 11 in Weight 190 lb BMI 38.4 BP 122/86 Intake Visit Reasons: CASE SUPERVISOR annual exam/30 mins Comic Writer Required: Yes Comic Writer Language: Business Services Tech Name: Raheel [id number] Information Interpreted: non-clinical & clinical Radar Operator: Radar Operator Present (Fanny) Allergies morphine [Morphine] Allergy (Intermediate, Verified 06/22/23 14:46) TACHYCARDIA, ANXIETY oxycodone [Percocet] Allergy (Intermediate, Verified 06/22/23 14:46) Palpitations prednisone [PREDNISONE] Adverse Reaction (Intermediate, Verified 06/22/23 14:46) ANXIETY HPI HPI Comments History of Present Illness Details She is a postmenopausal woman 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 She is doing well with no concerns. Attempting to eat a healthy diet with calcium and vitamin D and stays active with exercise. Currently sexually active. Denies any vaginal dryness or irritation. Last pap smear; Hx CINI/HPV+ 2017, Pap 2018 HPV+, 2021-neg/neg. Last mammogram; 2022. Colonoscopy is UTD. Denies any family history of breast, ovarian or colon cancer. [facility] Medical History (Updated 06/22/23 @ 15:23 by Opal Carranza CNM) Abnormal Pap smear of cervix Osteoporosis Goiter Hyperparathyroidism Hypercalcemia Vitamin D deficiency HLD (hyperlipidemia) HTN (hypertension) T2DM (type 2 diabetes mellitus) On beta anurag at home Chronic constipation Diabetes Anemia GERD (gastroesophageal reflux disease) Sleep apnea Asthma CAD (coronary artery disease) Angina pectoris HTN (hypertension) Surgical History Hx of heart artery stent Hx of cholecystectomy History of esophagogastroduodenoscopy (EGD) H/O colonoscopy Family History Father Liver problem Mother Diabetes Obesity Social History Household Members Other:: With Housing: House Alcohol intake: never Patient Tobacco Use Status: Never used Tobacco Current occupational status: disabled Sexual orientation: Straight/Heterosexual Gender identity: Female Female Reproductive History Menstrual Total pregnancies: 3 Full term: 3 Number of Living Children: 3 Date of last pap smear: 11/07/22 (neg pap and hpv) History of abnormal pap smear: Yes (2016 +hpv 2017 ascus 03/30 colpo cin1 07/29 +hpv) Date of Mammogram: 02/22/23 (Birad 1) Review of Systems Const All systems reviewed & are unremarkable except as noted in HPI and below Reports as per HPI Eyes Reports no additional complaints ENT Reports no additional complaints Card Reports no additional complaints Resp Reports no additional complaints GI Reports as per HPI and Reports no additional complaints Reports as per HPI Musc Reports no additional complaints Skin/Breast Reports as per HPI Neuro Reports no additional complaints Psych Reports no additional complaints Endo Reports no additional complaints Gal/Lymph Reports no additional complaints Aller/Immun Reports no additional complaints Physical Exam Vital Signs: Last Vital Signs BP 122/86 06/22/23 14:46 BMI result Body Mass Index 38.4 Const General: cooperative, healthy appearing, no acute distress, well developed and alert Orientation/consciousness: patient oriented x3 HEENT Head: Yes normal to inspection Eyes General: appearance normal, both eyes and all related structures Neck Neck: Yes normal visual inspection Thyroid: Thyroid normal Chest Chest palpation & inspection: normal inspection of the chest and other (no puckering, dimpling, peau de orange, retraction, discharge, masses) Breast/axilla inspection: normal inspection of the breasts Breast/axilla palpation: normal palpation of the breasts Resp Effort & Inspection: normal respiratory effort GI Inspection: Yes normal to inspection, Yes obesity and Yes scar Palpation (GI): Soft to palpation Rectal Exam - Female: deferred General: Yes bladder normal to palpation External Female Exam: normal external appearance and normal appearance of the urethra Speculum Exam - Vagina: normal appearance of the vagina, normal palpation, normal vaginal discharge and vagina atrophic Speculum Exam - Cervix: normal appearance of the cervix, normal palpation and Other cervical findings present (Slight capillary bleeding with Pap) Bimanual exam- vagina & uterus: normal bimanual exam, normal palpation, uterine size normal, bladder normal to palpation, normal palpation and non-tender Bimanual Exam- Adnexa, other: no masses Skin General skin exam: no rashes or lesions noted Rashes: no rashes Neuro General: patient oriented x3 Cognition (Neuro): normal cognition Extrem General: Yes normal to inspection Psych Attitude: cooperative Thought process: Normal thought process present Assessment & Plan Assessment & Plan (1) Encounter for well woman exam with routine gynecological exam: Code(s): Z01.419 - Encounter for gynecological examination (general) (routine) without abnormal findings (2) Abnormal Pap smear of cervix: Code(s): R87.619 - Unspecified abnormal cytological findings in specimens from cervix uteri Qualifiers: Abnormal Pap type: unspecified Qualified Code(s): R87.619 - Unspecified abnormal cytological findings in specimens from cervix uteri Plan Discussed: Current recommendations for pap smears per ASCCP guidelines. Pap obtained today wait for the results for plan of care. Breast awareness, periodic self breast exams and yearly mammogram. Maintain a healthy lifestyle, well balanced diet including Calcium 1,200 mg and Vitamin D 600 IU daily, and routine exercise. Contact the office with any postmenopausal bleeding. Patient verbalizes understanding and agrees to the plan of care. She was given opportunity to ask questions and all questions were answered to the best of my ability. RTO in 1 year for annual battery assembler plastic exam. This note is constructed using voice recognition software. While every effort has been made to ensure accuracy, records management coordinator errors may have been included. Coding Level of Care Code Est Pt Prev Care >65y(06527) Diagnoses Encounter for well woman exam with routine gynecological exam Z01.419 Abnormal cervical Papanicolaou smear, unspecified abnormal pap finding R87.619 Abnormal Pap type: unspecified
[2023-06-22 14:46] VITALS: BP 122/86; BMI 38.4
== END 2023-06-22 15:26 | disposition home or self-care (01) ==
LOC: HO.HWS 14:44
PROVIDERS: PCP Internal Medicine; Visit Provider Advanced Practice Midwife
DX: Z01.419 Encounter for gynecological examination (general) (routine) without abnormal findings (principal); R87.619 Unspecified abnormal cytological findings in specimens from cervix uteri
CPT/HCPCS: 99397

== ENCOUNTER 2023-06-29 14:24 | Outpatient (AMB) | payer OTHER, SELFPAY ==
--- NOTE | 2023-06-29 14:40 | MHC.OFFVIS ---
Vital Signs 06/29/23 14:42 Height 4 ft 11 in Weight 187 lb 6.287 oz BMI 37.8 BP 154/75 H Blood Pressure Location Lt brachial Position Sitting Pulse 79 Intake Visit Reasons: Follow up BA Swallow Intake Note: Jayne presents in the office as a follow up to her barium swallow. CC: She states that she is here today for the results to her recent test results. she is feeling so-so. Photogrammetric Compilation Specialist Required: Yes Photogrammetric Compilation Specialist Name: [id number] Carol Allergies morphine [Morphine] Allergy (Intermediate, Verified 06/29/23 14:43) TACHYCARDIA, ANXIETY oxycodone [Percocet] Allergy (Intermediate, Verified 06/29/23 14:43) Palpitations prednisone [PREDNISONE] Adverse Reaction (Intermediate, Verified 06/29/23 14:43) ANXIETY Medication List - Last Reconciled 06/29/23 by Deepti Moss PA-C acetaminophen 500 mg PO Q12H PRN albuterol sulfate 90 mcg/actuation (Ventolin HFA) 2 puffs inhalation Q4-6H PRN alcohol swabs (Easy Touch Alcohol Prep Pads) pad topical BID amlodipine 5 mg PO DAILY atorvastatin (Lipitor) 80 mg PO DAILY baclofen 10 mg PO BID bisacodyl (Dulcolax (bisacodyl)) 10 mg MT DAILY PRN blood sugar diagnostic (OneTouch Verio test strips) As directed blood-glucose meter (OneTouch Verio Flex Meter) As directed blood-glucose meter,continuous (FreeStyle [place] 3 [place]) As directed blood-glucose sensor (FreeStyle Collin 3 Sensor device) As directed- change every 14 days budesonide 90 mcg/actuation (Pulmicort Flexhaler) 2 inhalations inhalation BID calcium citrate-vitamin D3 200 mg-6.25 mcg (250 unit) ([place] Calcium-Vitamin D3) 2 tabs PO BID calcium polycarbophil (Fiber Laxative (calcium polycarbophil)) 1,250 mg (2 x 625 mg) PO DAILY 30 days cholecalciferol (vitamin D3) (Vitamin D3) 25 mcg PO QAM clopidogrel 75 mg PO DAILY cyclobenzaprine 5 mg PO TID PRN docusate sodium (Colace) 200 mg (2 x 100 mg) PO BEDTIME 30 days ezetimibe 10 mg PO QAM ferrous sulfate 325 mg PO TID fluticasone propionate 110 mcg/actuation (Flovent HFA) 1 puff inhalation BID furosemide 20 mg PO DAILY insulin glargine (Lantus Solostar U-100 Insulin) 45 units subcut BEDTIME insulin lispro (Humalog KwikPen (U-100) Insulin) 14 units subcut TID lancets (TRUEplus Lancets) As directed to test blood sugar 3-4 times a day lancets (OneTouch UltraSoft Lancets) As directed loratadine 10 mg PO QAM metoprolol tartrate 50 mg PO BID omeprazole 20 mg PO DAILY pen needle, diabetic As directed pioglitazone 15 mg PO DAILY 30 days polyethylene glycol 3350 (Miralax) 17 grams PO DAILY 30 days semaglutide (Ozempic) 0.25 mg (0.368 mL) subcut QWEEK 30 days sodium zirconium cyclosilicate 5 grams PO 2XW HPI Comments Details: A 60-year-old female follows up with chronic constipation. She has no specific complaints- She is not consistent bowel regimen Reviewed diet she does not improve fiber. BM to 3 days -she has her glucose is typically elevated Appetite is very good She has no nausea, vomiting hematemesis, hematochezia fever chills Colonoscopy 2022- repeat 3 years- 2025 [facility] Medical History Abnormal Pap smear of cervix Osteoporosis Goiter Hyperparathyroidism Hypercalcemia Vitamin D deficiency HLD (hyperlipidemia) HTN (hypertension) T2DM (type 2 diabetes mellitus) On beta anurag at home Chronic constipation Diabetes Anemia GERD (gastroesophageal reflux disease) Sleep apnea Asthma CAD (coronary artery disease) Angina pectoris HTN (hypertension) Surgical History Hx of heart artery stent Hx of cholecystectomy History of esophagogastroduodenoscopy (EGD) H/O colonoscopy Family History Father Liver problem Mother Diabetes Obesity Social History Household Members Other:: With Housing: House Alcohol intake: never Patient Tobacco Use Status: Never used Tobacco Current occupational status: disabled Sexual orientation: Straight/Heterosexual Gender identity: Female Review of Systems Const All systems reviewed & are unremarkable except as noted in HPI and below Card Denies chest pain, Denies rapid heart rate and Denies dyspnea Resp Denies dyspnea GI Denies abdominal pain, Denies hematochezia, Reports constipation and Denies heartburn Physical Exam Vital Signs: Last Vital Signs Pulse 79 06/29/23 14:42 BP 154/75 H 06/29/23 14:42 BMI result Body Mass Index 37.8 Const General: cooperative, comfortable and no acute distress Nutritional Appearance: overweight Orientation/consciousness: patient oriented x3 Limitations: language barrier Eyes Sclerae: sclerae normal Resp Effort & Inspection: normal respiratory effort and able to speak in complete sentences Auscultation: clear to auscultation bilaterally, no rhonchi and no wheezes Cardio Rate: regular rate Rhythm: regular rhythm GI Inspection: Yes obesity Palpation (GI): Soft to palpation and nontender Auscultation: normal bowel sounds Neuro General: patient oriented x3 Psych Mental Status: mental status grossly normal Speech and movement: Clear speech present Affect: normal affect Attitude: cooperative Thought content: Normal thought content present Results Reviewed Results Reviewed: Findings: Terminal Ileum: Not evaluated Cecum: Normal Ascending Colon: A 7-8 mm sessile polyp in the proximal AC - removed with a cold snare. Two 3-5 mm sessile polyps - removed with a cold bx Transverse Colon: A 10-12 mm sessile polyp in the proximal TC - removed with a hot snare. A 12 to 15 mm sessile polyp in the distal TC at 50 cms. Polyp was removed with a hot snare and polypectomy site was closed with 1 hemoclip. Descending Colon: Moderate diverticulosis Sigmoid Colon: A 12- to 15 mm sessile polyp - removed with a hot snare. Moderate diverticulosis Rectum: Normal Ano-rectum: Large internal hemorrhoids Colon preparation: Excellent Impression and Post Procedure Diagnosis: Endoscopy Findings: STOMACH: Mild gastric erythema with nodular appearing mucosa in the gastric body. Biopsies were obtained from the gastric body and antrum. A few 5-8 mm sessile polyps in the gastric body - biopsied. DUODENUM: Normal - biopsied to check for celiac sprue Colonoscopy Findings: Three small and three medium sized polyps removed Moderate diverticulosis seen in the left colon Large hemorrhoids on retroflexed exam. Plan: Await pathology results Patient has an appointment on 07/25/22 in the GI Clinic with EST[facility]. Repeat Colonoscopy interval based on path results - in 2-3 years if multiple polyps are adenomatous and 10 years if polyps are hyperplastic. Gastric polyps, colon polyps and diverticulosis handouts were given in the discharge area Name: Jayne Lane Age/Sex: 67/F Attending: Jose Mazariegos MD : 1955 Submitted by: Jose Mazariegos MD Copies to: James Trimble MD MR #: [id number] Status: [facility] Collected: 07/11/22 Location: [facility] Received: 07/11/22 Diagnosis A. Small bowel, biopsy: Small intestinal mucosa with lamina propria hemosiderin deposition and mildly increased intraepithelial lymphocytes; otherwise within normal limits. See comment. B. Stomach, antrum, biopsy: Antral-type mucosa with mild chronic inactive inflammation; no Helicobacter organisms seen. C. Stomach, body, biopsy: Oxyntic mucosa with mild chronic inactive inflammation; no Helicobacter organisms seen. D. Stomach, polyp: Hyperplastic mucosal polyp with background mild chronic inactive inflammation; no Helicobacter organisms seen. E. Colon, ascending, polypectomies (2): Tubular adenomata; negative for high-grade dysplasia or carcinoma. F. Colon, transverse, polypectomies (2): Hyperplastic mucosal polyps. G. Colon, sigmoid, polypectomy: Hyperplastic mucosal polyp. COMMENT: The hemosiderin is present in the superficial aspects of the mucosa and may represent sequelae from a prior bleed or secondary to iron pills (though no hemosiderin deposition is present in the stomach samples). The mildly increased intraepithelial lymphocytes are of uncertain significance; the differential is broad and includes both immune-mediated processes (for example celiac or other), drug and infection. Please correlate with clinical history. Clinical History Pre-Op Dx: Colon cancer screening, anemia, reflux disease, constipation Post-Op Dx: Gastritis, gastric polyp, colon polyps, diverticulosis, hemorrhoids, r/o celiac, r/o H. pylori Microscopic Description A-G. Microscopic sections reviewed. Special studies ordered and performed: immunostain for H. pylori on B-D. Material Received A. Small bowel bx's, r/o celiac B. Gastric antrum bx's, r/o H. pylori C. Gastric body bx's Patient: Jayne Lane Age/Sex: 67/F MR#: [id number] Page 1 of 3 Assessment & Plan Assessment & Plan (1) Chronic constipation: Comment: Reinforced importance of consistent bowel regimen Colace 200 mg and MiraLax q.h.s., maintain high-fiber diet. Likely due to iron supplement-as well as diabetes not well controlled per her report. Medication list reviewed Code(s): K59.09 - Other constipation Category: Medical (2) Hemorrhoids: Code(s): K64.9 - Unspecified hemorrhoids Category: Medical Plan: Maintain high-fiber diet Avoid straining (3) Diverticulosis of colon: Comment: High-fiber, fiber supplement Code(s): K57.30 - Diverticulosis of large intestine without perforation or abscess without bleeding Category: Medical Plan: foods to avoid er protocol (4) GERD (gastroesophageal reflux disease): Code(s): K21.9 - Gastro-esophageal reflux disease without esophagitis Category: Medical Plan: Continue to avoid culprits PPI Plan colonoscopy 2025 ER protocol- bowel regimen- consistent Medications: New sennosides (senna) 8.6 mg PO DAILY 30 days PRN 30 caps 1RF constipation Patient Instructions: Will add senna to bowel regimen continue with colace miralx hydrate HFD ER protocol reviewed diverticulosis/diverticulitis Avoid straining hemorrhoids Encouraged to call questions or concerns A follow-up PCP Repeat asymptomatic colonoscopy 2025
[2023-06-29 14:42] VITALS: BP 154/75; PULSE 79; BMI 37.8
== END 2023-06-29 15:11 | disposition home or self-care (01) ==
PROVIDERS: PCP Internal Medicine; Visit Provider Physician Assistant
DX: K59.09 Other constipation (principal); K64.9 Unspecified hemorrhoids; K57.30 Diverticulosis of large intestine without perforation or abscess without bleeding; K21.9 Gastro-esophageal reflux disease without esophagitis
CPT/HCPCS: 99213

== ENCOUNTER → 2023-06-29 14:24 | Outpatient (BNVA) | payer OTHER, SELFPAY | PROVIDERS: PCP Internal Medicine; Visit Provider Physician Assistant | DX: K59.09 Other constipation (principal); K64.9 Unspecified hemorrhoids; K57.30 Diverticulosis of large intestine without perforation or abscess without bleeding; K21.9 Gastro-esophageal reflux disease without esophagitis | CPT/HCPCS: 99212 ==

== ENCOUNTER 2023-07-05 14:59 | Emergency (ER) | payer OTHER, SELFPAY ==
[2023-07-05] VITALS (9 sets, daily range): BP systolic 123–161; BP diastolic 56–83; PULSE 77–98; RESP 14–24; TEMP 36.5–36.8; O2SAT 94–98; BMI 33.1
--- NOTE | 2023-07-05 15:24 | ECG_ITS ---
Test Reason : DIZZINESS Blood Pressure : / mmHG Vent. Rate : 077 BPM Atrial Rate : 077 BPM P-R Int : 140 ms QRS Dur : 076 ms QT Int : 370 ms P-R-T Axes : 054 050 019 degrees QTc Int : 418 ms Normal sinus rhythm Normal ECG When compared with ECG of 08-FEB-2022 18:02, No significant change was found Referred By: Megan Vora Electronically Signed By:KAVITA MANZO MD
[2023-07-05 15:30] LABS: Glucose, Whole Blood 478 mg/dL (60-115)
--- NOTE | 2023-07-05 15:37 | ED_ITS ---
HPI - General Adult General Chief complaint: General Medical Stated complaint: DIZZY,HIGH BS 670 PER EMS Time Seen by Provider: 07/05/23 15:22 Source: patient Mode of arrival: ambulatory Limitations: no limitations History of Present Illness HPI narrative: Patient comes to emergency room complaining of high blood sugar. Patient states that usually her blood sugar runs between 100 and 120. Today, it was greater than 570. Patient states that 3 days ago she was diagnosed with influenza, patient does have asthma and her primary care physician started her on prednisone. Patient states that today in the morning, patient woke up with a high blood sugar, called EMS because she was feeling a bit weird, EMS reported a blood glucose of 670. When patient came in, patient states that she has been feeling dizzy, described as feeling different. Denies chest pain or shortness of breath, no room spinning, no lightheadedness. Related Data Home Medications ?Medication ?Instructions ?Recorded ?Confirmed albuterol sulfate 90 mcg/actuation 2 puff inhalation Q4-6H PRN 12/24/19 03/21/23 aerosol inhaler (Ventolin HFA) Shortness Of Breath fluticasone propionate 110 1 puff inhalation BID 07/09/20 03/21/23 mcg/actuation HFA aerosol inhaler (Flovent HFA) loratadine 10 mg tablet 10 mg PO QAM 07/09/20 03/21/23 pen needle, diabetic 32 gauge x #50 ea 07/09/20 03/21/23 sodium zirconium cyclosilicate 5 5 g PO 2XW 07/09/20 03/21/23 gram oral powder packet clopidogrel 75 mg tablet 75 mg PO DAILY 01/27/21 03/21/23 atorvastatin 80 mg tablet (Lipitor) 80 mg PO DAILY 11/01/21 03/21/23 amlodipine 5 mg tablet 5 mg PO DAILY 11/03/21 03/21/23 furosemide 20 mg tablet 20 mg PO DAILY 11/03/21 03/21/23 metoprolol tartrate 50 mg tablet 50 mg PO BID 11/03/21 03/21/23 omeprazole 20 mg capsule,delayed 20 mg PO DAILY 11/03/21 03/21/23 release acetaminophen 500 mg tablet 500 mg PO Q12H PRN Pain 01/28/22 03/21/23 budesonide 90 mcg/actuation breath 2 inh inhalation BID 01/28/22 03/21/23 activated powder inhaler (Pulmicort Flexhaler) cyclobenzaprine 5 mg tablet 5 mg PO TID PRN Pain 01/28/22 03/21/23 ferrous sulfate 325 mg (65 mg 325 mg PO TID 01/28/22 03/21/23 iron) tablet alcohol swabs (Easy Touch Alcohol pad topical BID 12/14/22 03/21/23 Prep Pads) insulin glargine 100 unit/mL (3 45 unit subcut BEDTIME 12/14/22 03/21/23 mL) subcutaneous pen (Lantus Solostar U-100 Insulin) insulin lispro 100 unit/mL 14 unit subcut TID 12/14/22 03/21/23 subcutaneous pen (Humalog KwikPen (U-100) Insulin) Previous Rx's ?Medication ?Instructions ?Recorded pioglitazone 15 mg tablet 15 mg PO DAILY 30 days #30 tabs 09/07/20 lancets 33 gauge (TRUEplus Lancets) #100 ea 02/16/21 blood-glucose meter (OneTouch #1 ea 06/30/21 Verio Flex Meter) lancets (OneTouch UltraSoft #200 ea 06/30/21 Lancets) baclofen 10 mg tablet 10 mg PO BID muscle spasms #10 tabs 08/08/22 blood sugar diagnostic (OneTouch #100 ea 01/02/23 Verio test strips) ezetimibe 10 mg tablet 10 mg PO QAM #90 tabs 01/16/23 bisacodyl 10 mg rectal suppository 10 mg [place] DAILY PRN constipation 03/21/23 (Dulcolax (bisacodyl)) #20 ea calcium polycarbophil 625 mg 1,250 mg (2 x 625 mg) PO DAILY 30 03/21/23 tablet (Fiber Laxative (calcium days #60 tabs polycarbophil)) docusate sodium 100 mg capsule 200 mg (2 x 100 mg) PO BEDTIME 30 03/21/23 (Colace) days #60 caps polyethylene glycol 3350 17 17 g PO DAILY 30 days #510 grams 03/21/23 gram/dose oral powder (Miralax) semaglutide 0.25 mg or 0.5 mg (2 0.25 mg (0.368 mL) subcut QWEEK 30 05/31/23 mg/3 mL) subcutaneous pen injector days #2 mL (Ozempic) calcium citrate 200 mg 2 tab PO BID #120 tabs 06/10/23 calcium-vitamin D3 6.25 mcg (250 unit) tablet ([place] Calcium-Vitamin D3) cholecalciferol (vitamin D3) 25 25 mcg PO QAM #30 caps 06/10/23 mcg (1,000 unit) capsule (Vitamin D3) blood-glucose meter,continuous #1 ea 06/22/23 (FreeStyle [place] 3 [place]) blood-glucose sensor (FreeStyle #2 ea 06/22/23 Collin 3 Sensor device) sennosides 8.6 mg capsule (senna) 8.6 mg PO DAILY PRN constipation 06/29/23 30 days #30 caps Allergies Allergy/AdvReac Type Severity Reaction Status Date / Time morphine [Morphine] Allergy Intermediate TACHYCARDIA, Verified 07/05/23 15:10 ANXIETY oxycodone [Percocet] Allergy Intermediate Palpitation Verified 07/05/23 15:10 s prednisone [PREDNISONE] AdvReac Intermediate ANXIETY Verified 07/05/23 15:10 Review of Systems 2 Review of Systems: Constitutional : No Weight loss, No Fever, No Chills, No Night Sweats, No Fatigue, No Malaise ENT/Mouth : No Hearing loss, No Ear Pain, No Nasal Congestion, No Sinus Pain, No Hoarseness, No sore throat, No Rhinorrhea, No Swallowing Difficulty Eyes: No Eye Pain, No Swelling, No Redness, No Foreign Body, No Discharge, No Vision Changes Cardiovascular : No Chest Pain, No SOB, No Dyspnea on Exertion, No Orthopnea, No Edema, No Palpitations Respiratory : No Cough, No Sputum, No Wheezing, No Smoke Exposure, No Dyspnea Gastrointestinal : No Nausea, No Vomiting, No Diarrhea, No Constipation, No abdominal Pain, No Hematochezia, No Melena Genitourinary : no irregular bleeding, No Dysuria, No Urinary Frequency, No Hematuria, No Urinary Incontinence, No Urgency, No Flank Pain, No Urinary Flow Changes, No Hesitancy Musculoskeletal : No joint pain, No Myalgias, No Joint Swelling Skin : No Skin Lesions, No rash Neuro : No Weakness, No Numbness, No Paresthesias, No Loss of Consciousness, No Dizziness, No Headache Psych : No Anxiety/Panic, No Depression, No SI/HI/AH/VH, No Social Issues, Heme/Lymph: No Bruising, No Bleeding,No Lymphadenopathy Endocrine : No Polyuria, No Polydipsia, No Temperature Intolerance, complaining of high blood sugar. [facility] Past Medical History Medical History Abnormal Pap smear of cervix Osteoporosis Goiter Hyperparathyroidism Hypercalcemia Vitamin D deficiency HLD (hyperlipidemia) HTN (hypertension) T2DM (type 2 diabetes mellitus) On beta anurag at home Chronic constipation Diabetes Anemia GERD (gastroesophageal reflux disease) Sleep apnea Asthma CAD (coronary artery disease) Angina pectoris HTN (hypertension) Surgical History Hx of heart artery stent Hx of cholecystectomy History of esophagogastroduodenoscopy (EGD) H/O colonoscopy Family History Family History Father Liver problem Mother Diabetes Obesity Social History Social History Household Members Other:: With Housing: House Alcohol intake: never Patient Tobacco Use Status: Never used Tobacco Advance Directives: No Advance Directives Information Provided: No Current occupational status: disabled Sexual orientation: Straight/Heterosexual Gender identity: Female Physical Exam ED Vital Signs: Vital Signs - 24 hr 07/05/23 15:03 07/05/23 16:02 07/05/23 17:08 Temperature 98.2 F Pulse Rate 77 79 91 Respiratory Rate 17 24 H Blood Pressure 150/76 H 136/65 Pulse Oximetry 94 Oxygen Delivery Method Room Air 07/05/23 17:10 07/05/23 17:10 07/05/23 17:12 Temperature 98.0 F Pulse Rate 97 98 95 Respiratory Rate 16 Blood Pressure 134/77 127/74 135/73 Pulse Oximetry 97 Oxygen Delivery Method Room Air 07/05/23 18:35 07/05/23 20:22 Temperature 97.7 F 97.9 F Pulse Rate 89 90 Respiratory Rate 16 14 Blood Pressure 142/78 H 144/67 H Pulse Oximetry 96 94 Oxygen Delivery Method Room Air Room Air BMI result Body Mass Index 33.1 Const Other: Appearance: Alert. Oriented X3. No acute distress. Eyes: Pupils equal, round and reactive to light. ENT: Pharynx normal. Neck: Normal inspection. Neck supple. No lymph nodes noted. No crepitus CVS: Normal heart rate and rhythm. Pulses normal. Normal S1 and S2 Respiratory: No respiratory distress. Bilateral wheezing, No rales Abdomen: Soft and nontender. No rigidity. No distention. Skin: Skin warm and dry. Normal skin color. Normal skin turgor. Extremities: No lower extremity edema. No Lacerations. No Rash Neuro: Oriented X 3. No motor deficit. No sensory deficit. Moving all extremities. No slurred speech. CN 2 through 12 grossly intact Psych: calm, cooperative, normal affect Course Course Course Narrative: Point of care 478. All of patient's labs pending. -patient receiving IV fluids, insulin. Medications Administered Discontinued Medications Generic Name Dose Route Start Last Admin Trade Name Freq PRN Reason Stop Dose Admin Albuterol Sulfate 2.5 mg/ 0 mg 07/05/23 16:01 07/05/23 16:04 Albuterol/Ipratropium 3 ml INHALE 07/05/23 16:02 5 dose ONCE ONE Administration Sodium Chloride 1,000 mls @ 999 mls/hr 07/05/23 15:36 07/05/23 15:55 Ns IVCONT 07/05/23 16:36 999 mls/hr .Q1H1M ONE Administration Insulin Human Regular 10 unit 07/05/23 15:36 07/05/23 15:56 Insulin Regular, Human 100 Unit/Ml 3 Ml Vial IVPUSH 07/05/23 15:37 10 unit ONCE ONE Administration Insulin Human Regular 10 unit 07/05/23 20:41 07/05/23 20:49 Insulin Regular, Human 100 Unit/Ml 3 Ml Vial IVPUSH 07/05/23 20:42 10 unit ONCE ONE Administration Medical Decision Making Medical Decision Making [facility] Narrative: -my interpretation of labs, hematology and chemistry at baseline other than the glucose. Initial glucose 478, improved to 308. Beta hydroxybutyrate negative, creatinine 1.55 which is chronic, close anion gap -patient received IV fluids and IV insulin. -hyperglycemia likely secondary to prednisone use. -here in the ED on physical exam patient was a bit wheezy, patient received a nebulization treatment, patient is still testing positive for influenza Differential Diagnosis Differential Diagnoses: The differential diagnosis associated with the presentation includes (Hyperglycemia due to diabetes, due to prednisone, URI, asthma) Admission/Observation Consideration of admission/observation: Escalation of care including admission/observation considered (Given patient's presentation labs, admission considered) Lab Data MDM Lab Attestation statement: I reviewed the patient's lab results. 07/05/23 16:15 07/05/23 16:15 Labs: Lab Results 07/05/23 07/05/23 07/05/23 Range/Units 15:25 16:15 16:17 WBC 7.9 (4.8-10.8) X10*3/uL RBC 3.59 L (4.20-5.50) X10*6/uL Hgb 10.8 L (12.0-16.0) g/dl Hct 31.6 L (37.0-47.0) % MCV 88.0 (80.0-98.0) fL MCH 30.1 (27.0-33.0) pg MCHC 34.2 (31.0-35.0) g/dl RDW 12.1 (11.0-16.0) % Plt Count 203 (160-400) X10*3/uL MPV 11.0 (9.4-12.3) fL Immature Gran % (Auto) 0.4 (0.0-0.4) % Neut % (Auto) 91.6 H (45-73) % Lymph % (Auto) 7.5 L (20-40) % [place] % (Auto) 0.5 L (2-11) % Eos % (Auto) 0.0 (0-4) % Baso % (Auto) 0.0 (0-2) % Lymph # (Auto) 0.6 L (1.2-4.9) X10*3/uL [place] # (Auto) 0.0 L (0.1-1.2) X10*3/uL Eos # (Auto) 0.0 (0.0-0.4) X10*3/uL Baso # (Auto) 0.0 (0.0-0.2) X10*3/uL Abs Immat Gran (auto) 0.03 (0.00-0.03) X10*3/uL Absolute Neuts (auto) 7.2 (2.0-8.3) x10*3/uL Absolute Nucleated RBC 0.000 (0.0-0.012) X10*3/uL Nucleated RBC % (auto) 0.0 (0.0-0.2) /100WBC Smear Tech's Comments VERIFIED Sodium 136 (135-145) mmol/L Potassium 3.8 (3.3-5.1) mmol/L Chloride 103 (96-108) mmol/L Carbon Dioxide 22 (22-29) mmol/L Anion Gap 15 (12-20) BUN 28 H (9-16) mg/dL Creatinine 1.55 H (0.5-1.4) mg/dL Estim Creat Clear Calc 38.5 Estimated GFR 33 POC Glucose 478 H* (60-115) mg/dL Random Glucose 478 H* (60-115) mg/dL Calcium 9.1 D (8.4-10.2) mg/dL Magnesium 1.7 (1.6-2.6) mg/dL Total Bilirubin 0.2 (0.0-1.0) mg/dL AST 22 (5-31) U/L ALT 22 (0-31) U/L Alkaline Phosphatase 65 (39-117) U/L Troponin I High Sens < 2.7 (<3.5-17.0) ng/L Total Protein 6.9 (6.5-8.0) g/dL Albumin 3.8 (3.5-5.0) g/dL Beta-Hydroxybutyrate 0.12 (0.02-0.27) mmol/L Urine Color Yellow Urine Appearance Clear Urine pH 6.0 (5.0-9.0) Ur Specific [place] 1.015 (1.005-1.025) Urine Protein 30 (1+) H (Neg-Trace) mg/dL Urine Glucose (UA) >=1000 H (Negative) mg/dL Urine Ketones Negative (Negative) mg/dL Urine Blood Trace H (Negative) Urine Nitrite Negative (Negative) Ur Leukocyte Esterase Negative (Negative) Urine RBC 0-2 (0-2) /HPF Urine WBC 0-5 (0-5) /HPF Ur Squamous Epith Cells 0-2 (0-2) /HPF Urine Bacteria None Seen (None Seen) Hyaline Casts 0-2 (0-2) /LPF Urine Opiates Screen Not Detected (Not Detect) Ur Buprenorphine Scrn Not Detected (Not Detect) ng/mL Ur Oxycodone Screen Not Detected (Not Detect) ng/mL Urine Methadone Screen Not Detected (Not Detect) ng/mL Urine Fentanyl Screen Not Detected (Not Detect) Ur Barbiturates Screen Not Detected (Not Detect) Ur Phencyclidine Scrn Not Detected (Not Detect) Ur Amphetamines Screen Not Detected (Not Detect) U Benzodiazepines Scrn Not Detected (Not Detect) Urine Cocaine Screen Not Detected (Not Detect) U Marijuana (THC) Screen Not Detected (Not Detect) Ethyl Alcohol < 10 mg/dL COVID-19 ([place]) Negative (Negative) COVID-19 Clin Com See Note Influenza Type A ([facility]) Positive A (Negative) Influenza Type B ([place]) Negative (Negative) Influenza A & B Note See Note 07/05/23 07/05/23 07/05/23 Range/Units 19:08 20:39 21:06 WBC (4.8-10.8) X10*3/uL RBC (4.20-5.50) X10*6/uL Hgb (12.0-16.0) g/dl Hct (37.0-47.0) % MCV (80.0-98.0) fL MCH (27.0-33.0) pg MCHC (31.0-35.0) g/dl RDW (11.0-16.0) % Plt Count (160-400) X10*3/uL MPV (9.4-12.3) fL Immature Gran % (Auto) (0.0-0.4) % Neut % (Auto) (45-73) % Lymph % (Auto) (20-40) % [place] % (Auto) (2-11) % Eos % (Auto) (0-4) % Baso % (Auto) (0-2) % Lymph # (Auto) (1.2-4.9) X10*3/uL [place] # (Auto) (0.1-1.2) X10*3/uL Eos # (Auto) (0.0-0.4) X10*3/uL Baso # (Auto) (0.0-0.2) X10*3/uL Abs Immat Gran (auto) (0.00-0.03) X10*3/uL Absolute Neuts (auto) (2.0-8.3) x10*3/uL Absolute Nucleated RBC (0.0-0.012) X10*3/uL Nucleated RBC % (auto) (0.0-0.2) /100WBC Smear Tech's Comments Sodium (135-145) mmol/L Potassium (3.3-5.1) mmol/L Chloride (96-108) mmol/L Carbon Dioxide (22-29) mmol/L Anion Gap (12-20) BUN (9-16) mg/dL Creatinine (0.5-1.4) mg/dL Estim Creat Clear Calc Estimated GFR POC Glucose 413 H* 425 H* 382 H* (60-115) mg/dL Random Glucose (60-115) mg/dL Calcium (8.4-10.2) mg/dL Magnesium (1.6-2.6) mg/dL Total Bilirubin (0.0-1.0) mg/dL AST (5-31) U/L ALT (0-31) U/L Alkaline Phosphatase (39-117) U/L Troponin I High Sens (<3.5-17.0) ng/L Total Protein (6.5-8.0) g/dL Albumin (3.5-5.0) g/dL Beta-Hydroxybutyrate (0.02-0.27) mmol/L Urine Color Urine Appearance Urine pH (5.0-9.0) Ur Specific [place] (1.005-1.025) Urine Protein (Neg-Trace) mg/dL Urine Glucose (UA) (Negative) mg/dL Urine Ketones (Negative) mg/dL Urine Blood (Negative) Urine Nitrite (Negative) Ur Leukocyte Esterase (Negative) Urine RBC (0-2) /HPF Urine WBC (0-5) /HPF Ur Squamous Epith Cells (0-2) /HPF Urine Bacteria (None Seen) Hyaline Casts (0-2) /LPF Urine Opiates Screen (Not Detect) Ur Buprenorphine Scrn (Not Detect) ng/mL Ur Oxycodone Screen (Not Detect) ng/mL Urine Methadone Screen (Not Detect) ng/mL Urine Fentanyl Screen (Not Detect) Ur Barbiturates Screen (Not Detect) Ur Phencyclidine Scrn (Not Detect) Ur Amphetamines Screen (Not Detect) U Benzodiazepines Scrn (Not Detect) Urine Cocaine Screen (Not Detect) U Marijuana (THC) Screen (Not Detect) Ethyl Alcohol mg/dL COVID-19 ([place]) (Negative) COVID-19 Clin Com Influenza Type A ([facility]) (Negative) Influenza Type B ([place]) (Negative) Influenza A & B Note 07/05/23 07/05/23 07/05/23 Range/Units 21:25 21:46 22:03 WBC (4.8-10.8) X10*3/uL RBC (4.20-5.50) X10*6/uL Hgb (12.0-16.0) g/dl Hct (37.0-47.0) % MCV (80.0-98.0) fL MCH (27.0-33.0) pg MCHC (31.0-35.0) g/dl RDW (11.0-16.0) % Plt Count (160-400) X10*3/uL MPV (9.4-12.3) fL Immature Gran % (Auto) (0.0-0.4) % Neut % (Auto) (45-73) % Lymph % (Auto) (20-40) % [place] % (Auto) (2-11) % Eos % (Auto) (0-4) % Baso % (Auto) (0-2) % Lymph # (Auto) (1.2-4.9) X10*3/uL [place] # (Auto) (0.1-1.2) X10*3/uL Eos # (Auto) (0.0-0.4) X10*3/uL Baso # (Auto) (0.0-0.2) X10*3/uL Abs Immat Gran (auto) (0.00-0.03) X10*3/uL Absolute Neuts (auto) (2.0-8.3) x10*3/uL Absolute Nucleated RBC (0.0-0.012) X10*3/uL Nucleated RBC % (auto) (0.0-0.2) /100WBC Smear Tech's Comments Sodium (135-145) mmol/L Potassium (3.3-5.1) mmol/L Chloride (96-108) mmol/L Carbon Dioxide (22-29) mmol/L Anion Gap (12-20) BUN (9-16) mg/dL Creatinine (0.5-1.4) mg/dL Estim Creat Clear Calc Estimated GFR POC Glucose 374 H* 308 H 317 H (60-115) mg/dL Random Glucose (60-115) mg/dL Calcium (8.4-10.2) mg/dL Magnesium (1.6-2.6) mg/dL Total Bilirubin (0.0-1.0) mg/dL AST (5-31) U/L ALT (0-31) U/L Alkaline Phosphatase (39-117) U/L Troponin I High Sens (<3.5-17.0) ng/L Total Protein (6.5-8.0) g/dL Albumin (3.5-5.0) g/dL Beta-Hydroxybutyrate (0.02-0.27) mmol/L Urine Color Urine Appearance Urine pH (5.0-9.0) Ur Specific [place] (1.005-1.025) Urine Protein (Neg-Trace) mg/dL Urine Glucose (UA) (Negative) mg/dL Urine Ketones (Negative) mg/dL Urine Blood (Negative) Urine Nitrite (Negative) Ur Leukocyte Esterase (Negative) Urine RBC (0-2) /HPF Urine WBC (0-5) /HPF Ur Squamous Epith Cells (0-2) /HPF Urine Bacteria (None Seen) Hyaline Casts (0-2) /LPF Urine Opiates Screen (Not Detect) Ur Buprenorphine Scrn (Not Detect) ng/mL Ur Oxycodone Screen (Not Detect) ng/mL Urine Methadone Screen (Not Detect) ng/mL Urine Fentanyl Screen (Not Detect) Ur Barbiturates Screen (Not Detect) Ur Phencyclidine Scrn (Not Detect) Ur Amphetamines Screen (Not Detect) U Benzodiazepines Scrn (Not Detect) Urine Cocaine Screen (Not Detect) U Marijuana (THC) Screen (Not Detect) Ethyl Alcohol mg/dL COVID-19 ([place]) (Negative) COVID-19 Clin Com Influenza Type A ([place]) (Negative) Influenza Type B ([place]) (Negative) Influenza A & B Note Critical Care Time Critical Care Time Critical Care Time: Yes Total Critical Care Time: 75 Attestation: I have personally provided critical care time. Time includes review of lab data, radiology results, discussion with consultants, and monitoring for potential decompensation. Intervention performed as documented. Discharge Plan Discharge Clinical Impression: Asthma, Acute hyperglycemia Patient Disposition: Home, Self-Care Instructions: Asthma (ED), Diabetic Hyperglycemia (ED) Additional Instructions: Your glucose levels will be elevated for the next few days while urine prednisone. Please follow-up with your primary care physician tomorrow. If you have any worsening or new symptoms, please return to the emergency room or call 911 Prescriptions: No Action pioglitazone 15 mg tablet 15 mg PO DAILY 30 Days Qty: 30 11RF (DME) lancets [TRUEplus Lancets] 33 gauge misc See Rx Instructions .Route Qty: 100 11RF Rx Instructions: As directed to test blood sugar 3-4 times a day (DME) blood-glucose meter [OneTouch Verio Flex meter] Misc See Rx Instructions .Route Qty: 1 0RF Rx Instructions: As directed (DME) lancets [OneTouch UltraSoft Lancets] Misc See Rx Instructions .Route Qty: 200 5RF Rx Instructions: As directed acetaminophen 500 mg tablet 500 mg PO Q12H PRN (Reason: Pain) cyclobenzaprine 5 mg tablet 5 mg PO TID PRN (Reason: Pain) ferrous sulfate 325 mg (65 mg iron) tablet 325 mg PO TID Pulmicort Flexhaler 90 mcg/actuation aerosol powdr breath activated 2 inh inhalation BID (DME) OneTouch Verio test strips Strip See Rx Instructions .Route Qty: 100 11RF Rx Instructions: As directed ezetimibe 10 mg tablet 10 mg PO QAM Qty: 90 3RF Ozempic 0.25 mg or 0.5 mg (2 mg/3 mL) pen injector 0.25 mg subcut QWEEK 30 Days Qty: 2 5RF Rx Instructions: for 4 weeks cholecalciferol (vitamin D3) [Vitamin D3] 25 mcg (1,000 unit) capsule 25 mcg PO QAM Qty: 30 3RF calcium citrate-vitamin D3 [[place] Calcium-Vitamin D3] 200 mg-6.25 mcg (250 unit) tablet 2 tab PO BID Qty: 120 3RF albuterol sulfate [Ventolin HFA] 90 mcg/actuation Hfa Aerosol Inhaler 2 puff INHALATION Q4-6H PRN (Reason: Shortness Of Breath) Flovent HFA 110 mcg/actuation HFA aerosol inhaler 1 puff INHALATION BID baclofen 10 mg tablet 10 mg PO BID Qty: 10 0RF (DME) pen needle, diabetic 32 gauge x 5/32 needle See Rx Instructions .ROUTE QID Qty: 50 Rx Instructions: As directed sodium zirconium cyclosilicate 5 gram powder in packet 5 g PO 2XW loratadine 10 mg tablet 10 mg PO QAM clopidogrel 75 mg tablet 75 mg PO DAILY Lantus Solostar U-100 Insulin 100 unit/mL (3 mL) insulin pen 45 unit subcut BEDTIME insulin lispro [Humalog KwikPen Insulin] 100 unit/mL insulin pen 14 unit subcut TID metoprolol tartrate 50 mg tablet 50 mg PO BID amlodipine 5 mg tablet 5 mg PO DAILY omeprazole 20 mg capsule,delayed release(DR/EC) 20 mg PO DAILY furosemide 20 mg tablet 20 mg PO DAILY atorvastatin [Lipitor] 80 mg tablet 80 mg PO DAILY polyethylene glycol 3350 [Miralax] 17 gram/dose powder 17 g PO DAILY 30 Days Qty: 510 6RF Rx Instructions: Take QHS docusate sodium [Colace] 100 mg capsule 200 mg PO BEDTIME 30 Days Qty: 60 5RF bisacodyl [Dulcolax (bisacodyl)] 10 mg suppository 10 mg [place] DAILY PRN (Reason: constipation) Qty: 20 0RF calcium polycarbophil [Fiber Laxative (ca polycarbo)] 625 mg tablet 1,250 mg PO DAILY 30 Days Qty: 60 3RF (DME) FreeStyle Collin 3 [place] Misc See Rx Instructions .Route Qty: 1 0RF Rx Instructions: As directed (DME) FreeStyle Collin 3 Sensor Device See Rx Instructions .Route Qty: 2 4RF Rx Instructions: As directed- change every 14 days senna 8.6 mg capsule 8.6 mg PO DAILY PRN (Reason: constipation) 30 Days Qty: 30 1RF alcohol swabs [Easy Touch Alcohol Prep Pads] Pads, Medicated topical BID Print Language: Romansh
[2023-07-05] MEDS: 0.9 % Sodium Chloride 1,000 ML 999 ML IVCONT (15:55)
[2023-07-05] MEDS: Insulin Regular, Human 100 UNIT/ML 3 ML VIAL 10 UNIT IVPUSH ×2 (15:56→20:49)
[2023-07-05] MEDS: Albuterol Sulfate 2.5 MG, Albuterol/Iprat 2.5/0.5MG 3 ML 3 ML INHALE (16:04)
[2023-07-05 16:27] LABS: Appearance Urine Clear; Color Urine Yellow; Glucose Urine UA >=1000 mg/dL (Negative); Leukocyte Esterase Urine Negative (Negative); Nitrite Urine Negative (Negative); Specific Gravity - Urine 1.015 (1.005-1.025); UMIC TRIGGER UACC YES; Urine Blood Trace (Negative); Urine Ketones Negative (Negative); Urine Protein 30 (1+) mg/dL (Neg-Trace)
[2023-07-05 16:27] LABS: Hematocrit 31.6 % (37.0-47.0); Hemoglobin 10.8 g/dl (12.0-16.0); Imm Gran Abs Auto 0.03 X10*3/uL (0.00-0.03); Imm Gran Pct Auto 0.4 % (0.0-0.4); Lymphocytes Absolute Auto 0.6 X10*3/uL (1.2-4.9); Lymphocytes Percent Auto 7.5 % (20-40); MANUAL DIFF FLAG SCAN; Mean Corpuscular HGB Conc 34.2 g/dl (31.0-35.0); Mean Corpuscular Hemoglobin 30.1 pg (27.0-33.0); Monocytes Percent Auto 0.5 % (2-11); Neutrophils Absolute Auto 7.2 x10*3/uL (2.0-8.3); Neutrophils Percent Auto 91.6 % (45-73); Platelet Count 203 X10*3/uL (160-400); Red Blood Count 3.59 X10*6/uL (4.20-5.50); Red Cell Distribution Width 12.1 % (11.0-16.0); SCAN SMEAR FLAG 1; White Blood Count 7.9 X10*3/uL (4.8-10.8)
[2023-07-05 16:30] LABS: Bacteria Urine None Seen (None Seen); Hyaline Casts Urine 0-2 /LPF (0-2); RBC Urine 0-2 /HPF (0-2); Squamous Epithelial Cell Urine 0-2 /HPF (0-2); WBC Urine 0-5 /HPF (0-5)
[2023-07-05 16:36] LABS: Amphetamine Screen Urine Not Detected (Not Detect); Barbiturates, Urine Not Detected (Not Detect); Benzodiazepines Screen Urine Not Detected (Not Detect); Buprenorphine Scr Not Detected (Not Detect); Cannabinoid Screen Urine Not Detected (Not Detect); Cocaine Screen Urine Not Detected (Not Detect); Fentanyl, urine Not Detected (Not Detect); Methadone Screen, Urine Not Detected (Not Detect); Opiate Screen Urine Not Detected (Not Detect); Oxycodone Screen Urine Not Detected (Not Detect); Phencyclidine Screen Urine Not Detected (Not Detect)
[2023-07-05 16:39] LABS: Beta-Hydroxybutyrate 0.12 mmol/L (0.02-0.27)
[2023-07-05 16:46] LABS: Troponin-I High Sensitivity < 2.7 ng/L (<3.5-17.0)
[2023-07-05 16:49] LABS: COVID-19 Test Negative (Negative); IDNOW Serial# 152EDE1D
[2023-07-05 16:50] LABS: IDNOW Serial# 08D9AD1C; Influenza A Positive (Negative); Influenza B2 Negative (Negative)
[2023-07-05 17:30] LABS: SLIDE REVIEW VERIFIED
[2023-07-05 18:21] LABS: Ethanol < 10 mg/dL
[2023-07-05 18:32] LABS: Alanine Aminotransferase 22 U/L (0-31); Albumin Level 3.8 g/dL (3.5-5.0); Alkaline Phosphatase 65 U/L (39-117); Anion Gap 15 (12-20); Aspartate Amino Transferase 22 U/L (5-31); Bilirubin Total 0.2 mg/dL (0.0-1.0); Blood Urea Nitrogen 28 mg/dL (9-16); Calcium 9.1 mg/dL (8.4-10.2); Carbon Dioxide 22 mmol/L (22-29); Chloride 103 mmol/L (96-108); Creatinine Clr Calc Pharmacy 38.5; Estimated Glomerular Filt Rate 33; Glucose Random 478 mg/dL (60-115); Magnesium 1.7 mg/dL (1.6-2.6); Potassium 3.8 mmol/L (3.3-5.1); Sodium 136 mmol/L (135-145); Total Protein 6.9 g/dL (6.5-8.0)
[2023-07-05 19:12] LABS: Glucose, Whole Blood 413 mg/dL (60-115)
[2023-07-05 20:42] LABS: Glucose, Whole Blood 425 mg/dL (60-115)
[2023-07-05 21:11] LABS: Glucose, Whole Blood 382 mg/dL (60-115)
[2023-07-05 21:29] LABS: Glucose, Whole Blood 374 mg/dL (60-115)
[2023-07-05 21:52] LABS: Glucose, Whole Blood 308 mg/dL (60-115)
[2023-07-05 22:08] LABS: Glucose, Whole Blood 317 mg/dL (60-115)
--- NOTE | 2023-07-05 23:09 | PC.NURSE ---
this rn assumed care of pt @ [address]. per dr schneider poc checked q15 mins goal of 300 dr schneider made aware of poc 308 dr schneider made aware of poc [address] schneider discontinue poc checks plan to discharge
== END 2023-07-05 23:18 | disposition home or self-care (01) ==
PROVIDERS: Physician Assistant Medical; Emergency Provider Emergency Medicine; PCP Internal Medicine
DX: E11.65 Type 2 diabetes mellitus with hyperglycemia (principal); J45.909 Unspecified asthma, uncomplicated; I10 Essential (primary) hypertension; Z11.52 Encounter for screening for COVID-19
CPT/HCPCS: 36415; 80053; 80307; 81001; 82010; 82947; 83735; 84484; 85025; 87502; 87635; 93005; 94640; 96374; 96376; 99284; 99285

== ENCOUNTER → 2023-07-05 15:24 | Outpatient (BNV) | payer OTHER, SELFPAY | PROVIDERS: Emergency Provider Emergency Medicine; PCP Internal Medicine; Visit Provider Internal Medicine Cardiovascular Disease | DX: R42 Dizziness and giddiness (principal) | CPT/HCPCS: 93010 ==

== ENCOUNTER 2023-07-10 13:50 | Outpatient (AMB) | payer OTHER, SELFPAY ==
--- NOTE | 2023-07-10 14:20 | A.OFFVIS_ITS ---
Intake Intake Visit Reasons: T2DM World Geography Teacher Required: Yes World Geography Teacher Language: Deburrer Machine Name: Valeri [facility] [place] Information Interpreted: non-clinical & clinical Accompanied by: Daughter Allergies morphine [Morphine] Allergy (Intermediate, Verified 07/05/23 15:10) TACHYCARDIA, ANXIETY oxycodone [Percocet] Allergy (Intermediate, Verified 07/05/23 15:10) Palpitations prednisone [PREDNISONE] Adverse Reaction (Intermediate, Verified 07/05/23 15:10) ANXIETY HPI Comprehensive Diabetes Asmnt Most Recent Diabetes Results: Microalb/Creat Ratio 164.0 ug/mg cr (<30) H 06/21/23 Creatinine 1.55 mg/dL (0.5-1.4) H 07/05/23 Blood Urea Nitrogen 28 mg/dL (9-16) H 07/05/23 Sodium 136 mmol/L (135-145) 07/05/23 Potassium 3.8 mmol/L (3.3-5.1) 07/05/23 Chloride 103 mmol/L (96-108) 07/05/23 Carbon Dioxide 22 mmol/L (22-29) 07/05/23 Calcium 9.1 mg/dL (8.4-10.2) 07/05/23 AST 22 U/L (5-31) 07/05/23 ALT 22 U/L (0-31) 07/05/23 Total Protein 6.9 g/dL (6.5-8.0) 07/05/23 Albumin 3.8 g/dL (3.5-5.0) 07/05/23 [facility] Medical History Abnormal Pap smear of cervix Osteoporosis Goiter Hyperparathyroidism Hypercalcemia Vitamin D deficiency HLD (hyperlipidemia) HTN (hypertension) T2DM (type 2 diabetes mellitus) On beta anurag at home Chronic constipation Diabetes Anemia GERD (gastroesophageal reflux disease) Sleep apnea Asthma CAD (coronary artery disease) Angina pectoris HTN (hypertension) Surgical History Hx of heart artery stent Hx of cholecystectomy History of esophagogastroduodenoscopy (EGD) H/O colonoscopy Family History Father Liver problem Mother Diabetes Obesity Social History Household Members Other:: With Housing: House Alcohol intake: never Patient Tobacco Use Status: Never used Tobacco Current occupational status: disabled Sexual orientation: Straight/Heterosexual Gender identity: Female Assessment & Plan Assessment & Plan (1) T2DM (type 2 diabetes mellitus): Code(s): E11.9 - Type 2 diabetes mellitus without complications Qualifiers: Diabetes mellitus penitentiary insulin use: with penitentiary use Diabetes mellitus complication status: with hyperglycemia Qualified Code(s): E11.65 - Type 2 diabetes mellitus with hyperglycemia; Z79.4 - detention (current) use of insulin Plan: Learning objectives: The patient was provided with verbal and written education on the following topics as outlined below. The patient met all learning objectives and was able to verbalize understanding and provide teach back of education topics discussed . The patient was provided with the opportunity to ask questions and all questions were answered. Patient Assessment Assess patient education level/literacy/barriers Patient questions/concerns, patient waiting on prescription for Collin 3 sensors, and reader patient's last A1c on 06/20/23 was 7.4% Instructed patient when she picks up Collin 3 sensors to bring to Diabetes Education for set up What is Diabetes? Pathophysiology How the body produces and uses insulin Identify type of DM Risk factors Signs of Diabetes Brief overview of Diabetes Management Monitoring blood sugar Following a meal plan Regular exercise Maintaining a healthy weight Taking medication as needed Members of the care team (PCP, RN, MA, RD, CDE, electrical transmission engineer) Blood glucose monitoring When/how often to test Target blood sugar ranges Patient using OneTouch Verio meter, time in meter was incorrect Patient's upload was not attached patient's chart Introduction to Nutrition Importance of healthy diet in managing DM Diet is personalized to individual preference Review patient?s regular diet/food preferences Who prepares meals/does food shopping/ Dining out?/ Barriers? How diet effects glucose Eating 3 balanced meals a day with small, healthy snacks between meals Review food groups Carbohydrates: What is a carbohydrate/Which food/food groups are considered carbohydrates Effect of carbohydrates on blood glucose Portion sizes Reading food labels Basic carb counting (if applicable per nursing assessment) Plate method Meal planning Recommendations: Follow plate method, consistent carbs and read nutritional labels. Smart Goal: Patient will keep meals to 45 g of carbohydrate Educational Materials: The patient was provided with the following written educational materials: Planning Healthy Meals Handout Patient Response to instructions: Comprehension of Instructions: Fair Readiness to make changes: Contemplation How confident they feel about making changes: Fair Patient Instructions: Incluir actividad diaria regular. ADA recomienda 30 minutos de ejercicio 5 d?as a la semana. P?rdida de peso, hable con el PCP o el cardi?logo antes de comenzar un nuevo plan. Mida el nivel de az?car en la jc seg?n las indicaciones; Ayuno y comida m?s savita de 2hpp. Observe las tendencias en los resultados. Utilice los resultados y eval?e c?mo los alimentos, la actividad f?beth y los medicamentos afectan los resultados de az?car en la jc. Lleve el gluc?metro o CGM a la pr?xima visita. Conocer los medicamentos para la diabetes, riddle acci?n, los efectos secundarios, la eficacia, la toxicidad, la dosis prescrita, el momento y la frecuencia de administraci?n apropiados, el efecto de las dosis olvidadas y retrasadas y las instrucciones de almacenamiento, viaje y seguridad. T?cnicas de resoluci?n de problemas para el seguimiento de episodios de hipo/hiperglucemia y tratamientos. Reducir los comportamientos de reducci?n de riesgos, dejar de fumar, ex?menes regulares de ojos, pies y dentales. Coding Level of Care Code Est Pt Level 1 (62446) Diagnoses Type 2 diabetes mellitus with hyperglycemia, with long-term current use of insulin E11.65; Z79.4 Diabetes mellitus terminal operator insulin use: with terminal operator use Diabetes mellitus complication status: with hyperglycemia
== END 2023-07-10 14:23 | disposition home or self-care (01) ==
PROVIDERS: PCP Internal Medicine; Visit Provider Registered Nurse Diabetes Educator
DX: E11.65 Type 2 diabetes mellitus with hyperglycemia (principal); Z79.4 Long term (current) use of insulin

== ENCOUNTER → 2023-07-10 13:50 | Outpatient (BNVA) | payer OTHER, SELFPAY | PROVIDERS: PCP Internal Medicine; Visit Provider Registered Nurse Diabetes Educator | DX: E11.65 Type 2 diabetes mellitus with hyperglycemia (principal); Z79.4 Long term (current) use of insulin; Z71.89 Other specified counseling | CPT/HCPCS: 99211 ==

== ENCOUNTER 2023-07-18 16:34 | Emergency (ER) | payer OTHER, SELFPAY ==
--- NOTE | ~2023-07-18 | XR_ITS ---
EXAMINATION: XR CHEST 2 VIEWS CLINICAL INFORMATION: Rib pain. COMPARISON: Chest radiograph dated 06/13/2018. TECHNIQUE: Frontal and lateral views of the chest were obtained. FINDINGS: The heart, great vessels, pulmonary vasculature and mediastinum are normal. The lungs show no focal infiltrate, effusion or pneumothorax. There is no acute osseous abnormality. There is a mild thoracic dextroscoliosis. XR/XR chest 2V IMPRESSION: No active cardiopulmonary disease.
[2023-07-18 17:18] VITALS: BP 150/90; BP 153/78; PULSE 77; PULSE 88; RESP 16; TEMP 36.9; O2SAT 92; O2SAT 97; BMI 48.4
--- NOTE | 2023-07-18 17:25 | ED_ITS ---
HPI - Abdominal Pain General Chief Complaint: Abdominal Pain Stated Complaint: abd pain,constipation Time Seen by Provider: 07/18/23 17:17 Source: patient and EMS Mode of arrival: EMS Limitations: no limitations History of Present Illness HPI narrative: Patient is a 68-year-old female who presents emergency department via EMS for evaluation of abdominal pain. Patient reports that she was recently diagnosed with influenza over the past week and she has been coughing. Last night after an episode of coughing she began experiencing pain diffusely across the upper abdomen, pointing primarily to the left upper quadrant and along the left lateral ribs. She reports having very mild pain when not coughing 1/10, but exacerbates with deep inspiration or cough. Admits to mild shortness of breath with exertion. She denies fevers, chills, nasal congestion, sore throat, neck pain, chest pain, nausea, vomiting, diarrhea, genitourinary symptoms, numbness or tingling of the extremities. Related Data Home Medications ?Medication ?Instructions ?Recorded ?Confirmed albuterol sulfate 90 mcg/actuation 2 puff inhalation Q4-6H PRN 12/24/19 03/21/23 aerosol inhaler (Ventolin HFA) Shortness Of Breath fluticasone propionate 110 1 puff inhalation BID 07/09/20 03/21/23 mcg/actuation HFA aerosol inhaler (Flovent HFA) loratadine 10 mg tablet 10 mg PO QAM 07/09/20 03/21/23 pen needle, diabetic 32 gauge x #50 ea 07/09/20 03/21/23/32 sodium zirconium cyclosilicate 5 5 g PO 2XW 07/09/20 03/21/23 gram oral powder packet clopidogrel 75 mg tablet 75 mg PO DAILY 01/27/21 03/21/23 atorvastatin 80 mg tablet (Lipitor) 80 mg PO DAILY 11/01/21 03/21/23 amlodipine 5 mg tablet 5 mg PO DAILY 11/03/21 03/21/23 furosemide 20 mg tablet 20 mg PO DAILY 11/03/21 03/21/23 metoprolol tartrate 50 mg tablet 50 mg PO BID 11/03/21 03/21/23 omeprazole 20 mg capsule,delayed 20 mg PO DAILY 11/03/21 03/21/23 release acetaminophen 500 mg tablet 500 mg PO Q12H PRN Pain 01/28/22 03/21/23 budesonide 90 mcg/actuation breath 2 inh inhalation BID 01/28/22 03/21/23 activated powder inhaler (Pulmicort Flexhaler) cyclobenzaprine 5 mg tablet 5 mg PO TID PRN Pain 01/28/22 03/21/23 ferrous sulfate 325 mg (65 mg 325 mg PO TID 01/28/22 03/21/23 iron) tablet alcohol swabs (Easy Touch Alcohol pad topical BID 12/14/22 03/21/23 Prep Pads) insulin glargine 100 unit/mL (3 45 unit subcut BEDTIME 12/14/22 03/21/23 mL) subcutaneous pen (Lantus Solostar U-100 Insulin) insulin lispro 100 unit/mL 14 unit subcut TID 12/14/22 03/21/23 subcutaneous pen (Humalog KwikPen (U-100) Insulin) Previous Rx's ?Medication ?Instructions ?Recorded pioglitazone 15 mg tablet 15 mg PO DAILY 30 days #30 tabs 09/07/20 lancets 33 gauge (TRUEplus Lancets) #100 ea 02/16/21 blood-glucose meter (OneTouch #1 ea 06/30/21 Verio Flex Meter) lancets (OneTouch UltraSoft #200 ea 06/30/21 Lancets) baclofen 10 mg tablet 10 mg PO BID muscle spasms #10 tabs 08/08/22 blood sugar diagnostic (OneTouch #100 ea 01/02/23 Verio test strips) ezetimibe 10 mg tablet 10 mg PO QAM #90 tabs 01/16/23 bisacodyl 10 mg rectal suppository 10 mg UT DAILY PRN constipation 03/21/23 (Dulcolax (bisacodyl)) #20 ea docusate sodium 100 mg capsule 200 mg (2 x 100 mg) PO BEDTIME 30 03/21/23 (Colace) days #60 caps polyethylene glycol 3350 17 17 g PO DAILY 30 days #510 grams 03/21/23 gram/dose oral powder (Miralax) semaglutide 0.25 mg or 0.5 mg (2 0.25 mg (0.368 mL) subcut QWEEK 30 05/31/23 mg/3 mL) subcutaneous pen injector days #2 mL (Ozempic) calcium citrate 200 mg 2 tab PO BID #120 tabs 06/10/23 calcium-vitamin D3 6.25 mcg (250 unit) tablet ([place] Calcium-Vitamin D3) cholecalciferol (vitamin D3) 25 25 mcg PO QAM #30 caps 06/10/23 mcg (1,000 unit) capsule (Vitamin D3) sennosides 8.6 mg capsule (senna) 8.6 mg PO DAILY PRN constipation 06/29/23 30 days #30 caps calcium polycarbophil 625 mg 1,250 mg (2 x 625 mg) PO QAM #60 07/07/23 tablet (Fiber-Lax) tabs blood-glucose meter,continuous #1 ea 07/10/23 (FreeStyle Collin 3 [place]) blood-glucose sensor (FreeStyle #2 ea 07/10/23 Collin 3 Sensor device) Allergies Allergy/AdvReac Type Severity Reaction Status Date / Time morphine [Morphine] Allergy Intermediate TACHYCARDIA, Verified 07/18/23 17:21 ANXIETY oxycodone [Percocet] Allergy Intermediate Palpitation Verified 07/18/23 17:21 s prednisone [PREDNISONE] AdvReac Intermediate ANXIETY Verified 07/18/23 17:21 Review of Systems Review of Systems Yes all other systems are reviewed and are negative PMFSH Past Medical History Attestation statement: The following information was validated with the patient. Source: old records reviewed Medical History Abnormal Pap smear of cervix Osteoporosis Goiter Hyperparathyroidism Hypercalcemia Vitamin D deficiency HLD (hyperlipidemia) HTN (hypertension) T2DM (type 2 diabetes mellitus) On beta anurag at home Chronic constipation Diabetes Anemia GERD (gastroesophageal reflux disease) Sleep apnea Asthma CAD (coronary artery disease) Angina pectoris HTN (hypertension) Surgical History Hx of heart artery stent Hx of cholecystectomy History of esophagogastroduodenoscopy (EGD) H/O colonoscopy Family History Family History Father Liver problem Mother Diabetes Obesity Social History Social History Household Members Other:: With Housing: House Alcohol intake: never Patient Tobacco Use Status: Never used Tobacco Advance Directives: No Advance Directives Information Provided: No Do you have a plan to hurt others: No Plan Current occupational status: disabled Sexual orientation: Straight/Heterosexual Gender identity: Female Physical Exam ED Vital Signs: Vital Signs - 24 hr 07/18/23 17:18 07/18/23 17:55 07/18/23 19:36 Temperature 98.5 F 98.6 F Pulse Rate 77 87 Respiratory Rate 16 16 Blood Pressure 153/78 H 151/67 H Pulse Oximetry 92 96 Oxygen Delivery Method Room Air Room Air Oxygen Flow Rate 100 07/18/23 22:09 Temperature Pulse Rate 81 Respiratory Rate 16 Blood Pressure 167/86 H Pulse Oximetry 94 Oxygen Delivery Method Room Air Oxygen Flow Rate BMI result Body Mass Index 48.4 Appearance: Alert.?Oriented to person, place and time. No acute distress.?Normal affect. Eyes: Pupils equal, round and reactive to light.? ENT: Pharynx normal.?? Neck: Normal inspection.? Neck supple.?? CVS: Heart sounds normal. Normal heart rate and rhythm.? Pulses normal.?? Respiratory: No respiratory distress.? Lung sounds clear to auscultation bilateral upper lobes and right lower lobe, left lower lobe with mild rhonchi?? Abdomen: Soft with mild tenderness upon palpation in the upper quadrants just below costal margin, predominantly on the left. Normoactive bowel sounds. Skin: Skin warm and dry.? Normal skin color.? Extremities: No lower extremity edema.? No calf ttp? Neuro: Moves all extremities spontaneously. Sensation intact bilaterally. Ambulates with normal steady gait. Course Reevaluation(s) Reevaluation #1: Viral panel is negative. CBC is without leukocytosis, normocytic anemia that does not meet transfusion criteria, no thrombocytopenia. No electrolyte derangement. No BEBO, in fact renal function is improved when compared to prior. Hypercalcemia as seen in prior labs. Very mild elevation of AST/ALT, prior cholecystectomy, lipase within normal range, suspect likely fatty liver disease versus acute hepatic pathology or CBD stone. High sensitive troponin is in normal range, EKG is without acute ischemic findings, given duration of symptoms do not suspect pain secondary to ACS. Medical Decision Making Medical Decision Making MDM Narrative: Patient is a 68-year-old female with past medical history of osteoporosis, hyperparathyroidism, hypercalcemia, vitamin-D deficiency, hyperlipidemia, hypertension, CKD, type 2 diabetes, CAD with stenting in 2005, chronic constipation, anemia, GERD, asthma, history of cholecystectomy presenting to emergency department for evaluation of reproducible upper abdominal pain with cough and deep inspiration with onset last night. Admits to recent diagnosis of influenza and persistent nonproductive cough since then. No additional gastrointestinal symptoms related to this aside from constipation which is chronic for her in nature, reports a very small bowel movement last night without hematochezia or melena. On exam she does have mild tenderness across the upper abdomen predominantly along the left costal margin, made worse when attempting to sit up on the stretcher and with deep inspiration. I suspect that this is likely muscular/pleuritic pain in the setting of recent viral illness with cough. However, Will obtain CBC to evaluate for leukocytosis/ anemia, CMP and lipase to evaluate for abnormal electrolytes /abnormal renal function/ abnormal hepatic/biliary function, EKG and troponin to evaluate for ischemia/ACS. Chest x-ray to evaluate for consolidation/ infiltrate/ mass/ pulmonary congestion. Will trial acetaminophen for pain management as she has history of CKD would avoid NSAIDs. Improvement in pain with acetaminophen, serum labs EKG troponin CXR overall unremarkable as noted below. Stable for discharge home. Outpatient follow-up with primary care provider. Discussed strict return precautions. Differential Diagnosis Differential Diagnoses: The differential diagnosis associated with the presentation includes (See narrative above) Admission/Observation Consideration of admission/observation: Escalation of care including admission/observation considered (See narrative above and course narrative for further detail) Lab Data MDM Lab Attestation statement: I reviewed the patient's lab results. (See course narrative) 07/18/23 19:12 07/18/23 19:12 Labs: Lab Results 07/18/23 Range/Units 19:12 WBC 8.1 (4.8-10.8) X10*3/uL RBC 3.86 L (4.20-5.50) X10*6/uL Hgb 11.6 L (12.0-16.0) g/dl Hct 35.3 L (37.0-47.0) % MCV 91.5 (80.0-98.0) fL MCH 30.1 (27.0-33.0) pg MCHC 32.9 (31.0-35.0) g/dl RDW 12.7 (11.0-16.0) % Plt Count 301 D (160-400) X10*3/uL MPV 9.8 (9.4-12.3) fL Immature Gran % (Auto) 0.7 H (0.0-0.4) % Neut % (Auto) 67.5 (45-73) % Lymph % (Auto) 24.7 (20-40) % [place] % (Auto) 5.4 (2-11) % Eos % (Auto) 1.7 (0-4) % Baso % (Auto) 0.0 (0-2) % Lymph # (Auto) 2.0 (1.2-4.9) X10*3/uL [place] # (Auto) 0.4 (0.1-1.2) X10*3/uL Eos # (Auto) 0.1 (0.0-0.4) X10*3/uL Baso # (Auto) 0.0 (0.0-0.2) X10*3/uL Abs Immat Gran (auto) 0.06 H (0.00-0.03) X10*3/uL Absolute Neuts (auto) 5.5 (2.0-8.3) x10*3/uL Absolute Nucleated RBC 0.000 (0.0-0.012) X10*3/uL Nucleated RBC % (auto) 0.0 (0.0-0.2) /100WBC Sodium 143 (135-145) mmol/L Potassium 4.8 D (3.3-5.1) mmol/L Chloride 102 (96-108) mmol/L Carbon Dioxide 29 (22-29) mmol/L Anion Gap 17 (12-20) BUN 21 H (9-16) mg/dL Creatinine 1.24 (0.5-1.4) mg/dL Estim Creat Clear Calc 32.5 Estimated GFR 43 Random Glucose 220 H (60-115) mg/dL Calcium 11.0 H D (8.4-10.2) mg/dL Total Bilirubin 0.3 (0.0-1.0) mg/dL AST 34 H (5-31) U/L ALT 50 H (0-31) U/L Alkaline Phosphatase 71 (39-117) U/L Troponin I High Sens 10.1 D (<3.5-17.0) ng/L Total Protein 7.0 (6.5-8.0) g/dL Albumin 3.6 (3.5-5.0) g/dL Lipase 37 (8-78) U/L Influenza Type A (PCR) NEGATIVE (Negative) Influenza Type B (PCR) NEGATIVE (Negative) RSV RNA Qual (PCR) NEGATIVE (Negative) SARS-CoV-2 RNA (RT-PCR) NEGATIVE (Negative) Independent Interpretation I performed an independent interpretation of an: EKG and Plain X-Ray (No infiltrates or pleural effusions) Interpretation: Rate: 81 Rhythm:? Normal sinus rhythm Normal P waves.? Normal ANNMARIE.?? Normal QRS complex.?? ST T wave :??No ST elevation, no ST depression, qTC: 418 prior studies:? June 2023 The study has been interpreted contemporaneously by me. Radiology Impression Discussion of test interpretation with radiology: I have reviewed the radiologist's reading. Radiologist Impression: XR/XR chest 2V IMPRESSION: No active cardiopulmonary disease. Independent Historian Clinical information obtained from an independent historian. History obtained from or confirmed by: EMS External Record Review External record reviewed: Outpatient record Prescription Management I considered prescription management with: Pain Medication Chronic Conditions Patient?s care impacted by: Diabetes, Hypertension and Other (CKD) Medications Administered Discontinued Medications Generic Name Dose Route Start Last Admin Trade Name Freq PRN Reason Stop Dose Admin Acetaminophen 975 mg 07/18/23 17:40 07/18/23 17:54 Acetaminophen 325 Mg Tablet PO 07/18/23 17:41 975 mg ONCE ONE Administration Discharge Plan Discharge Clinical Impression: Abdominal pain Patient Disposition: Home, Self-Care Instructions: Abdominal Pain (ED) Additional Instructions: The pain that you are experiencing is likely due to inflammation in the setting of cough with recently being ill. Your x-ray today does not show any evidence of pneumonia. Your EKG looking at your heart and blood work does not show any evidence of a heart attack. You can take Tylenol 500 mg, 2 tablets (1,000mg) every 4-6 hours as needed for pain, but not to exceed 3 doses daily (3,000mg).? Please contact your primary care provider to arrange for a follow-up visit. You can return back to emergency department with any new or worsening symptoms or concerns. Prescriptions: No Action pioglitazone 15 mg tablet 15 mg PO DAILY 30 Days Qty: 30 11RF (DME) lancets [TRUEplus Lancets] 33 gauge misc See Rx Instructions .Route Qty: 100 11RF Rx Instructions: As directed to test blood sugar 3-4 times a day (DME) blood-glucose meter [OneTouch Verio Flex meter] Misc See Rx Instructions .Route Qty: 1 0RF Rx Instructions: As directed (DME) lancets [OneTouch UltraSoft Lancets] Misc See Rx Instructions .Route Qty: 200 5RF Rx Instructions: As directed acetaminophen 500 mg tablet 500 mg PO Q12H PRN (Reason: Pain) cyclobenzaprine 5 mg tablet 5 mg PO TID PRN (Reason: Pain) ferrous sulfate 325 mg (65 mg iron) tablet 325 mg PO TID Pulmicort Flexhaler 90 mcg/actuation aerosol powdr breath activated 2 inh inhalation BID (DME) OneTouch Verio test strips Strip See Rx Instructions .Route Qty: 100 11RF Rx Instructions: As directed ezetimibe 10 mg tablet 10 mg PO QAM Qty: 90 3RF Ozempic 0.25 mg or 0.5 mg (2 mg/3 mL) pen injector 0.25 mg subcut QWEEK 30 Days Qty: 2 5RF Rx Instructions: for 4 weeks cholecalciferol (vitamin D3) [Vitamin D3] 25 mcg (1,000 unit) capsule 25 mcg PO QAM Qty: 30 3RF calcium citrate-vitamin D3 [[place] Calcium-Vitamin D3] 200 mg-6.25 mcg (250 unit) tablet 2 tab PO BID Qty: 120 3RF Fiber-Lax 625 mg tablet 1,250 mg PO QAM Qty: 60 3RF (DME) FreeStyle Collin 3 Sensor Device See Rx Instructions .Route Qty: 2 4RF Rx Instructions: As directed- change every 14 days (DME) FreeStyle Collin 3 [place] Misc See Rx Instructions .Route Qty: 1 0RF Rx Instructions: As directed albuterol sulfate [Ventolin HFA] 90 mcg/actuation Hfa Aerosol Inhaler 2 puff INHALATION Q4-6H PRN (Reason: Shortness Of Breath) Flovent HFA 110 mcg/actuation HFA aerosol inhaler 1 puff INHALATION BID baclofen 10 mg tablet 10 mg PO BID Qty: 10 0RF (DME) pen needle, diabetic 32 gauge x 5/32 needle See Rx Instructions .ROUTE QID Qty: 50 Rx Instructions: As directed sodium zirconium cyclosilicate 5 gram powder in packet 5 g PO 2XW loratadine 10 mg tablet 10 mg PO QAM clopidogrel 75 mg tablet 75 mg PO DAILY Lantus Solostar U-100 Insulin 100 unit/mL (3 mL) insulin pen 45 unit subcut BEDTIME insulin lispro [Humalog KwikPen Insulin] 100 unit/mL insulin pen 14 unit subcut TID metoprolol tartrate 50 mg tablet 50 mg PO BID amlodipine 5 mg tablet 5 mg PO DAILY omeprazole 20 mg capsule,delayed release(DR/EC) 20 mg PO DAILY furosemide 20 mg tablet 20 mg PO DAILY atorvastatin [Lipitor] 80 mg tablet 80 mg PO DAILY polyethylene glycol 3350 [Miralax] 17 gram/dose powder 17 g PO DAILY 30 Days Qty: 510 6RF Rx Instructions: Take QHS docusate sodium [Colace] 100 mg capsule 200 mg PO BEDTIME 30 Days Qty: 60 5RF bisacodyl [Dulcolax (bisacodyl)] 10 mg suppository 10 mg UT DAILY PRN (Reason: constipation) Qty: 20 0RF senna 8.6 mg capsule 8.6 mg PO DAILY PRN (Reason: constipation) 30 Days Qty: 30 1RF alcohol swabs [Easy Touch Alcohol Prep Pads] Pads, Medicated topical BID Referrals: James Trimble MD [Primary Care Provider] - Print Language: Bengali
--- NOTE | 2023-07-18 17:39 | ECG_ITS ---
Test Reason : ABD PAIN Blood Pressure : / mmHG Vent. Rate : 081 BPM Atrial Rate : 081 BPM P-R Int : 126 ms QRS Dur : 072 ms QT Int : 360 ms P-R-T Axes : 054 055 008 degrees QTc Int : 418 ms Normal sinus rhythm Nonspecific T wave abnormality Abnormal ECG When compared with ECG of 05-JUL-2023 15:36, Nonspecific T wave abnormality now evident in Anterior leads Referred By: Renee Regan Electronically Signed By:Lenny Carrillo
[2023-07-18] MEDS: Acetaminophen 325 MG TABLET 975 MG PO (17:54)
[2023-07-18 19:16] LABS: MANUAL DIFF FLAG NO
[2023-07-18 19:18] LABS: Eosinophils Absolute Auto 0.1 X10*3/uL (0.0-0.4); Eosinophils Percent Auto 1.7 % (0-4); Hematocrit 35.3 % (37.0-47.0); Hemoglobin 11.6 g/dl (12.0-16.0); Imm Gran Abs Auto 0.06 X10*3/uL (0.00-0.03); Imm Gran Pct Auto 0.7 % (0.0-0.4); Lymphocytes Percent Auto 24.7 % (20-40); Mean Corpuscular HGB Conc 32.9 g/dl (31.0-35.0); Mean Corpuscular Hemoglobin 30.1 pg (27.0-33.0); Mean Corpuscular Volume 91.5 fL (80.0-98.0); Mean Platelet Volume 9.8 fL (9.4-12.3); Monocytes Absolute Auto 0.4 X10*3/uL (0.1-1.2); Monocytes Percent Auto 5.4 % (2-11); Neutrophils Absolute Auto 5.5 x10*3/uL (2.0-8.3); Neutrophils Percent Auto 67.5 % (45-73); Platelet Count 301 X10*3/uL (160-400); Red Blood Count 3.86 X10*6/uL (4.20-5.50); Red Cell Distribution Width 12.7 % (11.0-16.0); White Blood Count 8.1 X10*3/uL (4.8-10.8)
[2023-07-18 19:36] VITALS: BP 151/67; PULSE 87; RESP 16; TEMP 37; O2SAT 96
[2023-07-18 19:36] LABS: Alanine Aminotransferase 50 U/L (0-31); Albumin Level 3.6 g/dL (3.5-5.0); Alkaline Phosphatase 71 U/L (39-117); Anion Gap 17 (12-20); Aspartate Amino Transferase 34 U/L (5-31); Bilirubin Total 0.3 mg/dL (0.0-1.0); Blood Urea Nitrogen 21 mg/dL (9-16); Carbon Dioxide 29 mmol/L (22-29); Chloride 102 mmol/L (96-108); Creatinine Clr Calc Pharmacy 32.5; Estimated Glomerular Filt Rate 43; Glucose Random 220 mg/dL (60-115); Lipase 37 U/L (8-78); Potassium 4.8 mmol/L (3.3-5.1); Sodium 143 mmol/L (135-145)
[2023-07-18 19:41] LABS: Troponin-I High Sensitivity 10.1 ng/L (<3.5-17.0)
[2023-07-18 19:58] LABS: Influenza A PCR NEGATIVE (Negative); Influenza B PCR NEGATIVE (Negative); Resp Syncy Virus RNA Qual PCR NEGATIVE (Negative); SARS COV2 PCR INHOUSE NEGATIVE (Negative)
[2023-07-18 22:09] VITALS: BP 167/86; PULSE 81; RESP 16; O2SAT 94
--- NOTE | 2023-07-18 23:09 | PC.NURSE ---
at bedside to d/c pt with staff certified nurse midwife pt denies questions/concerns regarding discharge however pt states she thinks she has pink eye to R. 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
[2023-07-18 23:30] VITALS: BP 167/85; PULSE 83; RESP 16; TEMP 36.6; O2SAT 95
== END 2023-07-19 | disposition home or self-care (01) ==
PROVIDERS: Nurse Practitioner Family; Emergency Provider Emergency Medicine; PCP Internal Medicine
DX: R10.9 Unspecified abdominal pain (principal); E11.22 Type 2 diabetes mellitus with diabetic chronic kidney disease; I12.9 Hypertensive chronic kidney disease with stage 1 through stage 4 chronic kidney disease, or unspecified chronic kidney disease; N18.9 Chronic kidney disease, unspecified; Z90.49 Acquired absence of other specified parts of digestive tract; Z03.818 Encounter for observation for suspected exposure to other biological agents ruled out
CPT/HCPCS: 0241U; 71046; 80053; 83690; 84484; 85025; 93005; 99283; 99284

== ENCOUNTER → 2023-07-18 17:39 | Outpatient (BNV) | payer OTHER, SELFPAY | PROVIDERS: Emergency Provider Emergency Medicine; PCP Internal Medicine; Visit Provider Internal Medicine Cardiovascular Disease | DX: R94.31 Abnormal electrocardiogram [ECG] [EKG] (principal) | CPT/HCPCS: 93010 ==

== ENCOUNTER 2023-08-08 13:33 | Outpatient (AMB) | payer MEDICARE, SELFPAY ==
[2023-08-08 14:02] VITALS: BP 126/70; PULSE 71; BMI 47.7
--- NOTE | 2023-08-08 14:02 | MHC.OFFVIS ---
Vital Signs 08/08/23 14:02 Height 4 ft 3 in Weight 176 lb 5.917 oz BMI 47.7 BP 126/70 Blood Pressure Location Lt brachial Position Sitting Pulse 71 Intake Visit Reasons: 1 yr f/u Intake Note: 1 year follow-up patient had ekg 07/18/23 was having chest pain Security Police Officer Required: Yes Security Police Officer Name: [facility] – [place] Desk Top Publisher: Desk Top Publisher Present Accompanied by: Daughter Allergies morphine [Morphine] Allergy (Intermediate, Verified 07/18/23 17:21) TACHYCARDIA, ANXIETY oxycodone [Percocet] Allergy (Intermediate, Verified 07/18/23 17:21) Palpitations prednisone [PREDNISONE] Adverse Reaction (Intermediate, Verified 07/18/23 17:21) ANXIETY Medication List - Last Reconciled 08/08/23 by Rohan Singh MD acetaminophen 500 mg PO Q12H PRN albuterol sulfate 90 mcg/actuation (Ventolin HFA) 2 puffs inhalation Q4-6H PRN alcohol swabs (Easy Touch Alcohol Prep Pads) pad topical BID amlodipine 5 mg PO DAILY atorvastatin (Lipitor) 80 mg PO DAILY baclofen 10 mg PO BID bisacodyl (Dulcolax (bisacodyl)) 10 mg [place] DAILY PRN blood sugar diagnostic (OneTouch Verio test strips) As directed blood-glucose meter (OneTouch Verio Flex Meter) As directed blood-glucose meter,continuous (FreeStyle Collin 3 [place]) As directed blood-glucose sensor (FreeStyle [place] 3 Sensor device) As directed- change every 14 days budesonide 90 mcg/actuation (Pulmicort Flexhaler) 2 inhalations inhalation BID calcium citrate-vitamin D3 200 mg-6.25 mcg (250 unit) ([place] Calcium-Vitamin D3) 2 tabs PO BID calcium polycarbophil (Fiber-Lax) 1,250 mg (2 x 625 mg) PO QAM cholecalciferol (vitamin D3) (Vitamin D3) 25 mcg PO QAM clopidogrel 75 mg PO DAILY cyclobenzaprine 5 mg PO TID PRN docusate sodium (Col[place]) 200 mg (2 x 100 mg) PO BEDTIME 30 days ezetimibe 10 mg PO QAM ferrous sulfate 325 mg PO TID fluticasone propionate 110 mcg/actuation (Flovent HFA) 1 puff inhalation BID furosemide 20 mg PO DAILY insulin glargine (Lantus Solostar U-100 Insulin) 45 units subcut BEDTIME insulin lispro (Humalog KwikPen (U-100) Insulin) 14 units subcut TID lancets (TRUEplus Lancets) As directed to test blood sugar 3-4 times a day lancets (OneTouch UltraSoft Lancets) As directed loratadine 10 mg PO QAM metoprolol tartrate 50 mg PO BID omeprazole 20 mg PO DAILY pen needle, diabetic As directed pioglitazone 15 mg PO DAILY 30 days polyethylene glycol 3350 (Miralax) 17 grams PO DAILY 30 days semaglutide (Ozempic) 0.25 mg (0.368 mL) subcut QWEEK 30 days sennosides (senna) 8.6 mg PO DAILY PRN 30 days sodium zirconium cyclosilicate 5 grams PO 2XW HPI Comments Details: Jayne returns for follow up regarding coronary artery disease. Previously going to [place]. She had PTCA/stenting of the mid LAD in 2005. At that time, she had 90% stenosis of small OM and otherwise noncritical diffuse disease of large OM; 60-70% stenosis in the mid right coronary artery. Subsequently, had a nuclear stress test in 2010 which was apparently unremarkable. Multiple cardiovascular risk factors including diabetes, hypertension, dyslipidemia, among others. She states that she is mostly doing well. Recent with some chest pain on ER presentation but that was following influenza infection. Seems possible pleuritic in nature. Otherwise, no clear exertional pattern since she is mostly doing well. She does get some shortness of breath at times when she is extremely active but otherwise for the most part she is okay. They do not know the medications as apparently they come in a pillbox. Discussed with patient using spanish interpreter/translator. Daughter was also present. [facility] Medical History Abnormal Pap smear of cervix Osteoporosis Goiter Hyperparathyroidism Hypercalcemia Vitamin D deficiency HLD (hyperlipidemia) HTN (hypertension) T2DM (type 2 diabetes mellitus) On beta anurag at home Chronic constipation Diabetes Anemia GERD (gastroesophageal reflux disease) Sleep apnea Asthma CAD (coronary artery disease) Angina pectoris HTN (hypertension) Surgical History Hx of heart artery stent Hx of cholecystectomy History of esophagogastroduodenoscopy (EGD) H/O colonoscopy Family History Father Liver problem Mother Diabetes Obesity Social History Household Members Other:: With Housing: House Alcohol intake: never Patient Tobacco Use Status: Never used Tobacco Current occupational status: disabled Sexual orientation: Straight/Heterosexual Gender identity: Female Review of Systems Const Denies chills, Denies fatigue, Denies fever(s), Denies frequent falls, Denies weakness, Denies weight gain and Denies weight loss ENT Denies dizziness Card Denies chest pain, Denies leg edema, Denies lightheadedness, Denies palpitations, Denies dyspnea, Denies dyspnea on exertion, Denies orthopnea and Denies other (loss of consciousness) Resp Denies cough, Denies dyspnea and Denies dyspnea on exertion GI Denies hematochezia and Denies change in stool character Musc Denies abnormal gait, Denies muscle weakness, Denies numbness, Denies radiating pain into limb and Denies tingling Neuro Denies abnormal gait, Denies dizziness, Denies frequent falls, Denies numbness, Denies tingling and Denies weakness Endo Denies fatigue and Denies palpitations Physical Exam Vital Signs: Last Vital Signs Pulse 71 08/08/23 14:02 BP 126/70 08/08/23 14:02 BMI result Body Mass Index 47.7 Const General: comfortable and no acute distress Orientation/consciousness: patient oriented x3 HEENT Other: Unremarkable Head: Yes normal to inspection Neck Neck: Yes normal visual inspection Chest Chest palpation & inspection: normal inspection of the chest Resp Auscultation: clear to auscultation bilaterally Cardio Palpation: normal PMI Heart sounds: S1 normal heart sound present, S2 normal heart sound present, no gallops, no murmurs and no rubs GI Palpation (GI): Soft to palpation Back/Spine/Pelvis Other: unremarkable Skin General skin exam: no rashes or lesions noted Neuro General: patient oriented x3 Extrem General: Yes normal to inspection Psych Mental Status: mental status grossly normal Assessment & Plan Assessment & Plan (1) Atherosclerotic cardiovascular disease: Code(s): I25.10 - Atherosclerotic heart disease of [place] coronary artery without angina pectoris Category: Medical Plan: In the recent EKG, underlying rhythm is sinus with nonspecific ST-T changes. Based on review of prior records, PTCA/stenting mid LAD 2005; other findings at that time include 90% stenosis of small OM branch and noncritical diffuse disease in the large OM; intermediate grade disease in mid RCA. Nuclear stress from 2011 unremarkable. Based on our extensive risk factor profile, repeat myocardial perfusion imaging study. (2) Non-rheumatic aortic stenosis: Code(s): I35.0 - Nonrheumatic aortic (valve) stenosis Category: Medical Plan: Mild aortic stenosis on prior echocardiogram. Can be followed on echos. (3) HTN (hypertension): Code(s): I10 - Essential (primary) hypertension Category: Medical Qualifiers: Hypertension type: unspecified Qualified Code(s): I10 - Essential (primary) hypertension Plan: Stable. 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 On insulin, pioglitazone, Ozempic. Orders: Orders NM cardiolite stress test Today I25.10 - Atherosclerotic heart disease of [place] coronary artery without angina pectoris, R07.2 - Precordial pain CA echo transthoracic complete Today I25.10 - Atherosclerotic heart disease of [place] coronary artery without angina pectoris, I35.0 - Nonrheumatic aortic (valve) stenosis CA lexiscan stress w mata Today I20.9 - Angina pectoris, unspecified, I25.10 - Atherosclerotic heart disease of [place] coronary artery without angina pectoris Coding Level of Care Code Est Pt Level 4 (60217) Diagnoses Atherosclerotic cardiovascular disease I25.10 Non-rheumatic aortic stenosis I35.0 Hypertension, unspecified type I10 Hypertension type: unspecified Type 2 diabetes mellitus with hyperglycemia, with long-term current use of insulin E11.65; Z79.4 Diabetes mellitus complication status: with hyperglycemia Diabetes mellitus halfway insulin use: with halfway use
== END 2023-08-08 14:53 | disposition home or self-care (01) ==
PROVIDERS: Visit Provider Internal Medicine
DX: I25.10 Atherosclerotic heart disease of native coronary artery without angina pectoris (principal); I35.0 Nonrheumatic aortic (valve) stenosis; I10 Essential (primary) hypertension; E11.65 Type 2 diabetes mellitus with hyperglycemia; Z79.4 Long term (current) use of insulin
CPT/HCPCS: 99214

== ENCOUNTER → 2023-08-08 13:33 | Outpatient (BNVA) | payer MEDICARE, SELFPAY | PROVIDERS: Visit Provider Internal Medicine | DX: I25.10 Atherosclerotic heart disease of native coronary artery without angina pectoris (principal); I35.0 Nonrheumatic aortic (valve) stenosis; I10 Essential (primary) hypertension; E11.65 Type 2 diabetes mellitus with hyperglycemia; Z79.4 Long term (current) use of insulin | CPT/HCPCS: 99212 ==

== ENCOUNTER 2023-10-19 14:24 | Outpatient (AMB) | payer MEDICARE, SELFPAY ==
--- NOTE | 2023-10-19 14:30 | A.OFFVIS_ITS ---
Vital Signs 10/19/23 14:35 Height 4 ft 3 in Weight 174 lb 2.643 oz BMI 47.1 BP 138/84 Blood Pressure Location Rt brachial Position Sitting Pulse 77 Pulse Source Pulse Oximeter Intake Visit Reasons: DM/CONFIRMED Intake Note: New Patient presents today to establish treatment for Type 2 Diabetes Mellitus: Last Diabetic Eye exam: 10/2023, HAS Cataracts, needs surgery Last Podiatry Exam: Does not see a Surgical Garment Inspector Most recent HbA1c: 9.8% Random Glucose- 392 mg/dL, Today Rolfer Required: Yes Rolfer Language: It Application Administrator Services: Rolfer Offered & Declined (Pt signed the the refusal form) Accompanied by: Self / Same As Patient Allergies morphine [Morphine] Allergy (Intermediate, Verified 10/19/23 14:32) TACHYCARDIA, ANXIETY oxycodone [Percocet] Allergy (Intermediate, Verified 10/19/23 14:32) Palpitations prednisone [PREDNISONE] Adverse Reaction (Intermediate, Verified 10/19/23 14:32) ANXIETY Medication List - Last Reconciled 10/19/23 by Lina Jason MD acetaminophen 500 mg PO Q12H PRN albuterol sulfate 90 mcg/actuation (Ventolin HFA) 2 puffs inhalation Q4-6H PRN alcohol swabs (Easy Touch Alcohol Prep Pads) pad topical BID amlodipine 5 mg PO DAILY atorvastatin (Lipitor) 80 mg PO DAILY baclofen 10 mg PO BID bisacodyl (Dulcolax (bisacodyl)) 10 mg [place] DAILY PRN blood sugar diagnostic (OneTouch Verio test strips) As directed blood-glucose meter (OneTouch Verio Flex Meter) As directed blood-glucose meter,continuous (FreeStyle Collin 3 [place]) As directed blood-glucose sensor (FreeStyle Collin 3 Sensor device) As directed- change every 14 days budesonide 90 mcg/actuation (Pulmicort Flexhaler) 2 inhalations inhalation BID calcium citrate-vitamin D3 200 mg-6.25 mcg (250 unit) ([place] Calcium) 2 tabs PO BID calcium polycarbophil (Fiber-Lax) 1,250 mg (2 x 625 mg) PO QAM cholecalciferol (vitamin D3) (Vitamin D3) 25 mcg PO QAM clopidogrel 75 mg PO DAILY cyclobenzaprine 5 mg PO TID PRN docusate sodium (Stool Softener) 200 mg (2 x 100 mg) PO BEDTIME ezetimibe 10 mg PO QAM ferrous sulfate 325 mg PO TID fluticasone propionate 110 mcg/actuation (Flovent HFA) 1 puff inhalation BID furosemide 20 mg PO DAILY insulin glargine (Lantus Solostar U-100 Insulin) 35 units subcut BEDTIME insulin lispro (Humalog KwikPen (U-100) Insulin) Sliding Scale 6-16 subcutaneously 3 times a day; lancets (TRUEplus Lancets) As directed to test blood sugar 3-4 times a day lancets As directed loratadine 10 mg PO QAM metoprolol tartrate 50 mg PO BID omeprazole 20 mg PO DAILY pen needle, diabetic As directed pioglitazone 15 mg PO DAILY 30 days polyethylene glycol 3350 (Miralax) 17 grams PO DAILY 30 days semaglutide (Ozempic) 0.25 mg (0.368 mL) subcut QWEEK 30 days sennosides (senna) 8.6 mg PO DAILY PRN sodium zirconium cyclosilicate 5 grams PO 2XW HPI Comments Details: 68 year old female presenting for diabetic follow up Medical history: HTN, HLD, Vitamin D deficiency, hypercalcemia T2DM: Initially diagnosed with T2DM in 1999 during a routine screening physical. Was initially started on treatment with orals, and has been requiring insulin since 2014. Current regimen Lantus 34 units qHS, Humalog 12 units AC, Actos 15 mg PO daily and Ozempic 0.25 mg mg once a week. She reports missing doses of insulin Glucometer download shows POCs once a day. Average glucose is 246 with range of 135-334. A1C 07/04 7.4% however A1C today 9.8% no recent hypoglycemia Family history of T2DM in her mother, daughter and her siblings. Last eye exam 10/2023, cataracts Denies neuropathy, does not see podiatry. Has Nephropathy, CKD-follows with renal Has HLD, on Atorvastatin 80 mg PO daily and Zetia 10 mg PO daily. Has CAD-follows with cardiology 2) Hypercalcemia:Has a history of hypercalcemia with elevated PTH. Did not complete full workup for this. 24 hour urine for calcium was low but collection was inadequate with low 24 hour urinary creatinine DXA: 03/01/2022 FINDINGS: AP SPINE L1-L4: Current: BMD 0.984 g/cm2, Z-score -0.8, T-score -1.6, osteopenia, 2.3% increase from previous, 2.9% decrease from baseline (<5% change is not significant). Prior: BMD 0.962 g/cm2. Baseline: BMD 1.013 g/cm2. LEFT FEMUR, NECK: Current: BMD 0.820 g/cm2, Z-score -0.5, T-score -1.6, osteopenia. Prior: BMD 0.779 g/cm2. Baseline: BMD 0.921 g/cm2. LEFT FEMUR, TOTAL: Current: BMD 0.839 g/cm2, Z-score -0.6, T-score -1.3, osteopenia, 3.1% decrease from previous, 17.5% decrease from baseline (<5% change is not significant). Prior: BMD 0.866 g/cm2. Baseline: BMD 1.017 g/cm2. LEFT FOREARM RADIUS 33%: BMD 0.618 g/cm2, Z-score -1.4, T-score -2.9, osteoporosis, 9.5% decrease from baseline (<5% change is not significant). [facility] Medical History Abnormal Pap smear of cervix Osteoporosis Goiter Hyperparathyroidism Hypercalcemia Vitamin D deficiency HLD (hyperlipidemia) HTN (hypertension) T2DM (type 2 diabetes mellitus) On beta anurag at home Chronic constipation Diabetes Anemia GERD (gastroesophageal reflux disease) Sleep apnea Asthma CAD (coronary artery disease) Angina pectoris HTN (hypertension) Surgical History Hx of heart artery stent Hx of cholecystectomy History of esophagogastroduodenoscopy (EGD) H/O colonoscopy Family History Father Liver problem Mother Diabetes Obesity Social History Household Members Other:: With Housing: House Alcohol intake: never Patient Tobacco Use Status: Never used Tobacco Current occupational status: disabled Sexual orientation: Straight/Heterosexual Gender identity: Female Physical Exam Vital Signs: Last Vital Signs Pulse 77 10/19/23 14:35 BP 138/84 10/19/23 14:35 BMI result Body Mass Index 47.1 Results AMB Hemoglobin A1c AMB Hemoglobin A1c 9.8 % Last Edit by SHAHEED Titus on 10/19/23 14:56 Results Reviewed Results Reviewed: Laboratory Last Values Glucose (Clinic) 392 mg/dL (60-115) H* 10/19/23 14:46 Hgb A1c (Clinic) 9.8 % (4.0-6.0) H 10/19/23 14:34 Assessment & Plan Assessment & Plan (1) Hyperparathyroidism: Code(s): E21.3 - Hyperparathyroidism, unspecified Category: Medical Plan: Do labs as ordered. 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 Poor glycemic control at present. compliance discussed As such increase Actos to 30 units, increase ozempic to 0.5mg weekly consumer educator for CGM training (3) Atherosclerotic cardiovascular disease: Code(s): I25.10 - Atherosclerotic heart disease of [place] coronary artery without angina pectoris Category: Medical Plan: continue cardiology follow up Orders: Orders 2 AMB Hemoglobin A1c 10/19/23 E11.9 - Type 2 diabetes mellitus without complications Medications: New pioglitazone (Actos) 30 mg PO DAILY 90 tabs 3RF Changed From semaglutide for 4 weeks 0.25 mg (0.368 mL) subcut QWEEK 30 days 2 mL 5RF To semaglutide (Ozempic) for 4 weeks 0.5 mg (0.736 mL) subcut QWEEK 3 mL 5RF 4 weeks Discontinued pioglitazone Discontinued Reason: Doctor's Order 15 mg PO DAILY 30 days 30 tabs 11RF Coding Level of Care Code Est Pt Level 5 (97176) Diagnoses Hyperparathyroidism E21.3 Type 2 diabetes mellitus with hyperglycemia, with long-term current use of insulin E11.65; Z79.4 Diabetes mellitus complication status: with hyperglycemia Diabetes mellitus fci insulin use: with long term care pharmacist use Atherosclerotic cardiovascular disease I25.10
[2023-10-19 14:35] VITALS: BP 138/84; PULSE 77; BMI 47.1
[2023-10-19 14:56] LABS: Glucose, Whole Blood 392 mg/dL (60-115)
== END 2023-10-19 15:22 | disposition home or self-care (01) ==
PROVIDERS: PCP Internal Medicine; Visit Provider Internal Medicine
DX: E21.3 Hyperparathyroidism, unspecified (principal); E11.65 Type 2 diabetes mellitus with hyperglycemia; Z79.4 Long term (current) use of insulin; I25.10 Atherosclerotic heart disease of native coronary artery without angina pectoris
CPT/HCPCS: 99214

== ENCOUNTER → 2023-10-19 14:24 | Outpatient (BNVA) | payer MEDICARE, SELFPAY | PROVIDERS: PCP Internal Medicine; Visit Provider Internal Medicine | DX: E21.3 Hyperparathyroidism, unspecified (principal); E11.65 Type 2 diabetes mellitus with hyperglycemia; I25.10 Atherosclerotic heart disease of native coronary artery without angina pectoris; Z79.4 Long term (current) use of insulin | CPT/HCPCS: 82947; 83036; 99212 ==

== ENCOUNTER 2023-11-22 14:29 | Outpatient (AMB) | payer MEDICARE, SELFPAY ==
--- NOTE | 2023-11-22 14:34 | A.OFFVIS_ITS ---
Vital Signs 11/22/23 14:41 Height 4 ft 3 in Weight 176 lb 5.917 oz BMI 47.7 BP 120/70 Blood Pressure Location Rt brachial Position Sitting Pulse 79 Pulse Source Pulse Oximeter Intake Visit Reasons: DM/CONFIRMED Intake Note: Patient presents today for a follow-up for Type 2 Diabetes Mellitus: Last Diabetic Eye exam: 10/2023, Pt has cataracts, pending surgery. Last Podiatry Exam: Does not see a Crew Leader Most recent HbA1c: 9.8%, 10/19/2023 Random Glucose- 135mg/dL, Today Narcotics And Vice Detective Required: Yes Narcotics And Vice Detective Language: Quality Assistant Services: Narcotics And Vice Detective Offered & Declined Accompanied by: Self / Same As Patient Allergies morphine [Morphine] Allergy (Intermediate, Verified 10/19/23 14:32) TACHYCARDIA, ANXIETY oxycodone [Percocet] Allergy (Intermediate, Verified 10/19/23 14:32) Palpitations prednisone [PREDNISONE] Adverse Reaction (Intermediate, Verified 10/19/23 14:32) ANXIETY Medication List - Last Reconciled 11/22/23 by Lina Jason MD acetaminophen 500 mg PO Q12H PRN albuterol sulfate 90 mcg/actuation (Ventolin HFA) 2 puffs inhalation Q4-6H PRN alcohol swabs (Easy Touch Alcohol Prep Pads) pad topical BID amlodipine 5 mg PO DAILY atorvastatin (Lipitor) 80 mg PO DAILY baclofen 10 mg PO BID bisacodyl (Dulcolax (bisacodyl)) 10 mg ND DAILY PRN blood sugar diagnostic (OneTouch Verio test strips) TEST BLOOD SUGAR THREE OR FOUR TIMES DAILY blood-glucose meter (OneTouch Verio Flex Meter) As directed blood-glucose meter,continuous (FreeStyle Collin 3 Needles) As directed blood-glucose sensor (FreeStyle Collin 3 Sensor device) As directed- change every 14 days budesonide 90 mcg/actuation (Pulmicort Flexhaler) 2 inhalations inhalation BID calcium citrate-vitamin D3 200 mg-6.25 mcg (250 unit) ([place] Calcium) 2 tabs PO BID calcium polycarbophil (Fiber-Lax) 1,250 mg (2 x 625 mg) PO QAM cholecalciferol (vitamin D3) (Vitamin D3) 25 mcg PO QAM clopidogrel 75 mg PO DAILY cyclobenzaprine 5 mg PO TID PRN docusate sodium (Stool Softener) 200 mg (2 x 100 mg) PO BEDTIME ezetimibe 10 mg PO QAM ferrous sulfate 325 mg PO TID fluticasone propionate 110 mcg/actuation (Flovent HFA) 1 puff inhalation BID furosemide 20 mg PO DAILY insulin glargine (Lantus Solostar U-100 Insulin) 35 units subcut BEDTIME insulin lispro (Humalog KwikPen (U-100) Insulin) Sliding Scale 6-16 subcutaneously 3 times a day; lancets As directed lancets (TRUEplus Lancets) As directed to test blood sugar 3-4 times a day loratadine 10 mg PO QAM metoprolol tartrate 50 mg PO BID omeprazole 20 mg PO DAILY pen needle, diabetic As directed pioglitazone (Actos) 30 mg PO DAILY polyethylene glycol 3350 (Miralax) 17 grams PO DAILY 30 days semaglutide (Ozempic) 0.5 mg (0.736 mL) subcut QWEEK 4 weeks sennosides (senna) 8.6 mg PO DAILY PRN sodium zirconium cyclosilicate 5 grams PO 2XW HPI Comments Details: 68 year old female presenting for diabetic follow up Medical history: HTN, HLD, Vitamin D deficiency, hypercalcemia T2DM: Initially diagnosed with T2DM in 1999 during a routine screening physical. Was initially started on treatment with orals, and has been requiring insulin since 2014. Current regimen Lantus 34 units qHS, Humalog 12 units AC, Actos 30 mg PO daily (increased from 15mg daily wks ago) and Ozempic 0.5 mg ( increase 4wks ago to 0.25 mg mg once a week). She reports missing doses of insulin Glucometer download shows POCs once a day. Average glucose is 170 from 246 with range of 119-227 (from 135-334). A1C four weeks ago 9.8% no recent hypoglycemia Family history of T2DM in her mother, daughter and her siblings. Last eye exam 10/2023, cataracts Denies neuropathy, does not see podiatry. Has Nephropathy, CKD-follows with renal Has HLD, on Atorvastatin 80 mg PO daily and Zetia 10 mg PO daily. Has CAD-follows with cardiology 2) Hypercalcemia:Has a history of hypercalcemia with elevated PTH. Did not complete full workup for this. 24 hour urine for calcium was low but collection was inadequate with low 24 hour urinary creatinine DXA: 03/01/2022 FINDINGS: AP SPINE L1-L4: Current: BMD 0.984 g/cm2, Z-score -0.8, T-score -1.6, osteopenia, 2.3% increase from previous, 2.9% decrease from baseline (<5% change is not significant). Prior: BMD 0.962 g/cm2. Baseline: BMD 1.013 g/cm2. LEFT FEMUR, NECK: Current: BMD 0.820 g/cm2, Z-score -0.5, T-score -1.6, osteopenia. Prior: BMD 0.779 g/cm2. Baseline: BMD 0.921 g/cm2. LEFT FEMUR, TOTAL: Current: BMD 0.839 g/cm2, Z-score -0.6, T-score -1.3, osteopenia, 3.1% decrease from previous, 17.5% decrease from baseline (<5% change is not significant). Prior: BMD 0.866 g/cm2. Baseline: BMD 1.017 g/cm2. LEFT FOREARM RADIUS 33%: BMD 0.618 g/cm2, Z-score -1.4, T-score -2.9, osteoporosis, 9.5% decrease from baseline (<5% change is not significant). ROS CONSTITUTIONAL: Denies weight loss, fever and chills. HEENT: Denies changes in vision and hearing. RESPIRATORY: Denies SOB and cough. CV: Denies palpitations and CP GI: Denies abdominal pain, nausea, vomiting and diarrhea. : Denies dysuria and urinary frequency. MSK: Denies new myalgia and joint pain. SKIN: Denies rash and pruritus. NEUROLOGICAL: Denies headache PSYCHIATRIC: Denies recent changes in mood. PHYSICAL EXAM: GENERAL: Alert and oriented x 3. NAD EYES: EOMI. Anicteric. HENT: Moist mucous membranes. No scleral icterus. No cervical lymphadenopathy. LUNGS: Clear to auscultation bilaterally. CARDIOVASCULAR: Regular rate and rhythm. No murmur. No JVD. ABDOMEN: Soft, non-tender +bs EXTREMITIES: No edema. Non-tender. SKIN: No rashes or lesions. Warm. NEUROLOGIC: No focal neurological deficits. CN II-XII grossly intact PSYCHIATRIC: Cooperative. Appropriate mood and affect [facility] Medical History Abnormal Pap smear of cervix Osteoporosis Goiter Hyperparathyroidism Hypercalcemia Vitamin D deficiency HLD (hyperlipidemia) HTN (hypertension) T2DM (type 2 diabetes mellitus) On beta anurag at home Chronic constipation Diabetes Anemia GERD (gastroesophageal reflux disease) Sleep apnea Asthma CAD (coronary artery disease) Angina pectoris HTN (hypertension) Surgical History Hx of heart artery stent Hx of cholecystectomy History of esophagogastroduodenoscopy (EGD) H/O colonoscopy Family History Father Liver problem Mother Diabetes Obesity Social History Household Members Other:: With Housing: House Alcohol intake: never Patient Tobacco Use Status: Never used Tobacco Current occupational status: disabled Sexual orientation: Straight/Heterosexual Gender identity: Female Physical Exam Vital Signs: Last Vital Signs Pulse 79 11/22/23 14:41 BP 120/70 11/22/23 14:41 BMI result Body Mass Index 47.7 Results Reviewed Results Reviewed: Laboratory Last Values Glucose (Clinic) 135 mg/dL (60-115) H 11/22/23 14:45 Assessment & Plan Assessment & Plan (1) T2DM (type 2 diabetes mellitus): Code(s): E11.9 - Type 2 diabetes mellitus without complications Category: Medical Qualifiers: Diabetes mellitus complication status: with hyperglycemia Diabetes mellitus correction insulin use: with terminal operations manager use Qualified Code(s): E11.65 - Type 2 diabetes mellitus with hyperglycemia; Z79.4 - long term care administrator (current) use of insulin Plan: Improving but still suboptimal control Will increase lantus slightly to 38 units continue current humalog and actos dose She is still adjust to the new ozempic dose hopefuly we can up to 1mg at next visit (2) Osteoporosis: Code(s): M81.0 - Age-related osteoporosis without current pathological fracture Category: Medical Qualifiers: Osteoporosis type: age-related Presence of current pathological fracture: without current pathological fracture Qualified Code(s): M81.0 - Age- related osteoporosis without current pathological fracture Plan: She will schedule follow up for hypercalcemia, osteoporosis in 5-6 months Medications: Changed From semaglutide (Ozempic) for 4 weeks 0.5 mg (0.736 mL) subcut QWEEK 4 weeks 3 mL 5RF To semaglutide (Ozempic) 0.5 mg (0.736 mL) subcut QWEEK 3 mL 5RF 4 weeks From insulin glargine (Lantus Solostar U-100 Insulin) 35 units subcut BEDTIME To insulin glargine (Lantus Solostar U-100 Insulin) 38 units subcut BEDTIME Coding Level of Care Code Est Pt Level 5 (82583) Diagnoses Type 2 diabetes mellitus with hyperglycemia, with long-term current use of insulin E11.65; Z79.4 Diabetes mellitus complication status: with hyperglycemia Diabetes mellitus terminal operations manager insulin use: with correction use Age-related osteoporosis without current pathological fracture M81.0 Osteoporosis type: age-related Presence of current pathological fracture: without current pathological fracture Time Spent (min) 43
[2023-11-22 14:41] VITALS: BP 120/70; PULSE 79; BMI 47.7
[2023-11-22 14:49] LABS: Glucose, Whole Blood 135 mg/dL (60-115)
== END 2023-11-22 15:10 | disposition home or self-care (01) ==
PROVIDERS: PCP Internal Medicine; Visit Provider Internal Medicine
DX: E11.65 Type 2 diabetes mellitus with hyperglycemia (principal); Z79.4 Long term (current) use of insulin; M81.0 Age-related osteoporosis without current pathological fracture
CPT/HCPCS: 99215

== ENCOUNTER → 2023-11-22 14:29 | Outpatient (BNVA) | payer MEDICARE, SELFPAY | PROVIDERS: PCP Internal Medicine; Visit Provider Internal Medicine | DX: E11.65 Type 2 diabetes mellitus with hyperglycemia (principal); M81.0 Age-related osteoporosis without current pathological fracture; Z79.4 Long term (current) use of insulin | CPT/HCPCS: 82947; 99212 ==

== ENCOUNTER 2024-01-24 10:24 | Outpatient (AMB) | payer MEDICARE, SELFPAY ==
[2024-01-24 10:33] VITALS: BP 124/66; PULSE 74; BMI 48.9
--- NOTE | 2024-01-24 10:33 | A.OFFVIS_ITS ---
Vital Signs 01/24/24 10:33 Height 4 ft 3 in Weight 180 lb 12.465 oz BMI 48.9 BP 124/66 Blood Pressure Location Rt brachial Position Sitting Pulse 74 Pulse Source Pulse Oximeter Intake Visit Reasons: DM/CONFIRMED Intake Note: Patient presents today for a follow-up for Type 2 Diabetes Mellitus: Last Diabetic Eye exam: 10/2023, Pt has cataracts, pending surgery. Last Podiatry Exam: Does not see a Basin Cleaner Most recent HbA1c: 8.3%, 01/24/2024 Random Glucose- 192 mg/dL, Today Rf Engineer Required: Yes Rf Engineer Language: Combustion Analyst Services: Rf Engineer Offered & Declined Accompanied by: INDUSTRIAL SPRAYPAINTER Allergies morphine [Morphine] Allergy (Intermediate, Verified 01/24/24 10:40) TACHYCARDIA, ANXIETY oxycodone [Percocet] Allergy (Intermediate, Verified 01/24/24 10:40) Palpitations prednisone [PREDNISONE] Adverse Reaction (Intermediate, Verified 01/24/24 10:40) ANXIETY HPI Comments Details: 68 year old female presenting for diabetic follow up Medical history: HTN, HLD, Vitamin D deficiency, hypercalcemia T2DM: Initially diagnosed with T2DM in 1999 during a routine screening physical. Was initially started on treatment with orals, and has been requiring insulin since 2014. Current regimen Lantus 38 units qHS, Humalog 12 units AC, Actos 30 mg PO daily and Ozempic 0.5 mg. POC A1C today is 8.2%. Last A1C was 9.8%. Glucometer download shows POCs once a day. Average glucose is 114 with range of 72-165. No recent hypoglycemia Family history of T2DM in her mother, daughter and her siblings. Last eye exam 10/2023, cataracts Denies neuropathy, does not see podiatry. Has nephropathy, CKD-follows with renal Has HLD, on Atorvastatin 80 mg PO daily and Zetia 10 mg PO daily. Has CAD-follows with cardiology 2) Hypercalcemia:Has a history of hypercalcemia with elevated PTH. Did not complete full workup for this. 24 hour urine for calcium was low but collection was inadequate with low 24 hour urinary creatinine DXA: 03/01/2022-repeat ordered FINDINGS: AP SPINE L1-L4: Current: BMD 0.984 g/cm2, Z-score -0.8, T-score -1.6, osteopenia, 2.3% increase from previous, 2.9% decrease from baseline (<5% change is not significant). Prior: BMD 0.962 g/cm2. Baseline: BMD 1.013 g/cm2. LEFT FEMUR, NECK: Current: BMD 0.820 g/cm2, Z-score -0.5, T-score -1.6, osteopenia. Prior: BMD 0.779 g/cm2. Baseline: BMD 0.921 g/cm2. LEFT FEMUR, TOTAL: Current: BMD 0.839 g/cm2, Z-score -0.6, T-score -1.3, osteopenia, 3.1% decrease from previous, 17.5% decrease from baseline (<5% change is not significant). Prior: BMD 0.866 g/cm2. Baseline: BMD 1.017 g/cm2. LEFT FOREARM RADIUS 33%: BMD 0.618 g/cm2, Z-score -1.4, T-score -2.9, osteoporosis, 9.5% decrease from baseline (<5% change is not significant). ROS CONSTITUTIONAL: Denies weight loss, fever and chills. HEENT: Denies changes in vision and hearing. RESPIRATORY: Denies SOB and cough. CV: Denies palpitations and CP GI: Denies abdominal pain, nausea, vomiting and diarrhea. : Denies dysuria and urinary frequency. MSK: Denies new myalgia and joint pain. SKIN: Denies rash and pruritus. NEUROLOGICAL: Denies headache PSYCHIATRIC: Denies recent changes in mood. PHYSICAL EXAM: GENERAL: Alert and oriented x 3. NAD EYES: EOMI. Anicteric. HENT: Moist mucous membranes. No scleral icterus. No cervical lymphadenopathy. LUNGS: Clear to auscultation bilaterally. CARDIOVASCULAR: Regular rate and rhythm. No murmur. No JVD. ABDOMEN: Soft, non-tender +bs EXTREMITIES: No edema. Non-tender. SKIN: No rashes or lesions. Warm. NEUROLOGIC: No focal neurological deficits. CN II-XII grossly intact PSYCHIATRIC: Cooperative. Appropriate mood and affect [facility] Medical History Abnormal Pap smear of cervix Osteoporosis Goiter Hyperparathyroidism Hypercalcemia Vitamin D deficiency HLD (hyperlipidemia) HTN (hypertension) T2DM (type 2 diabetes mellitus) On beta anurag at home Chronic constipation Diabetes Anemia GERD (gastroesophageal reflux disease) Sleep apnea Asthma CAD (coronary artery disease) Angina pectoris HTN (hypertension) Surgical History Hx of heart artery stent Hx of cholecystectomy History of esophagogastroduodenoscopy (EGD) H/O colonoscopy Family History Father Liver problem Mother Diabetes Obesity Social History Household Members Other:: With Housing: House Alcohol intake: never Patient Tobacco Use Status: Never used Tobacco Current occupational status: disabled Sexual orientation: Straight/Heterosexual Gender identity: Female Physical Exam Vital Signs: Last Vital Signs Pulse 74 01/24/24 10:33 BP 124/66 01/24/24 10:33 BMI result Body Mass Index 48.9 Results AMB Hemoglobin A1c AMB Hemoglobin A1c 8.3 % Last Edit by SHAHEED Dalton on 01/24/24 10:46 Results Reviewed Results Reviewed: Laboratory Last Values Glucose (Clinic) 192 mg/dL (60-115) H 01/24/24 10:36 Hgb A1c (Clinic) 8.3 % (4.0-6.0) H 01/24/24 10:44 Assessment & Plan Assessment & Plan (1) T2DM (type 2 diabetes mellitus): Code(s): E11.9 - Type 2 diabetes mellitus without complications Category: Medical Qualifiers: Diabetes mellitus care home insulin use: with long term care administrator use Diabetes mellitus complication status: with hyperglycemia Qualified Code(s): E11.65 - Type 2 diabetes mellitus with hyperglycemia; Z79.4 - long term care administrator (current) use of insulin Plan: Improving glycemic control, within goal over past two weeks Will follow up 3 months or sooner as needed Orders: Orders AMB Hemoglobin A1c Today E11.65 - Type 2 diabetes mellitus with hyperglycemia, Z79.4 - snf (current) use of insulin XR DEXA axial skeleton Today E21.3 - Hyperparathyroidism, unspecified, M81.0 - Age-related osteoporosis without current pathological fracture Coding Level of Care Code Est Pt Level 4 (33934) Diagnoses Type 2 diabetes mellitus with hyperglycemia, with long-term current use of insulin E11.65; Z79.4 Diabetes mellitus long term care administrator insulin use: with long term care administrator use Diabetes mellitus complication status: with hyperglycemia
[2024-01-24 10:42] LABS: Glucose, Whole Blood 192 mg/dL (60-115)
== END 2024-01-24 10:57 | disposition home or self-care (01) ==
PROVIDERS: PCP Internal Medicine; Visit Provider Internal Medicine
DX: E11.65 Type 2 diabetes mellitus with hyperglycemia (principal); Z79.4 Long term (current) use of insulin

== ENCOUNTER → 2024-01-24 10:24 | Outpatient (BNVA) | payer MEDICARE, SELFPAY | PROVIDERS: PCP Internal Medicine; Visit Provider Internal Medicine | DX: E11.65 Type 2 diabetes mellitus with hyperglycemia (principal); E11.21 Type 2 diabetes mellitus with diabetic nephropathy; E78.5 Hyperlipidemia, unspecified; E83.52 Hypercalcemia; Z83.3 Family history of diabetes mellitus; Z79.4 Long term (current) use of insulin; Z79.84 Long term (current) use of oral hypoglycemic drugs | CPT/HCPCS: 82947; 83036; 99212 ==

== ENCOUNTER 2024-02-01 08:30 | Outpatient (AMB) | payer MEDICARE, SELFPAY ==
--- NOTE | 2024-02-01 08:38 | A.OFFVIS_ITS ---
Vital Signs 02/01/24 08:42 Height 4 ft 11 in Weight 180 lb BMI 36.4 BP 146/72 H Blood Pressure Location Lt brachial Position Sitting Pulse 76 Intake Visit Reasons: chronic constipation Intake Note: Patient follow up for chronic Constipation/Deepti former pt. Patient cc: Airport Operations Coordinator Required: No Accompanied by: Daughter Allergies morphine [Morphine] Allergy (Intermediate, Verified 01/24/24 10:40) TACHYCARDIA, ANXIETY oxycodone [Percocet] Allergy (Intermediate, Verified 01/24/24 10:40) Palpitations prednisone [PREDNISONE] Adverse Reaction (Intermediate, Verified 01/24/24 10:40) ANXIETY Medication List - Last Reconciled 02/01/24 by Jose Mazariegos MD acetaminophen 500 mg PO Q12H PRN albuterol sulfate 90 mcg/actuation (Ventolin HFA) 2 puffs inhalation Q4-6H PRN alcohol swabs (Easy Touch Alcohol Prep Pads) pad topical BID amlodipine 5 mg PO DAILY atorvastatin (Lipitor) 80 mg PO DAILY baclofen 10 mg PO BID bisacodyl (Dulcolax (bisacodyl)) 10 mg OR DAILY PRN blood sugar diagnostic (OneTouch Verio test strips) TEST BLOOD SUGAR THREE OR FOUR TIMES DAILY blood-glucose meter ([place] Verio Flex Meter) As directed blood-glucose meter,continuous (FreeStyle Collin 3 [place]) As directed blood-glucose sensor (FreeStyle Collin 3 Sensor device) USE DIRECTED. CHANGE EVERY 14 DAYS budesonide 90 mcg/actuation (Pulmicort Flexhaler) 2 inhalations inhalation BID calcium citrate-vitamin D3 200 mg-6.25 mcg (250 unit) 2 tabs PO DAILY calcium polycarbophil (Fiber-Lax) 1,250 mg (2 x 625 mg) PO QAM cholecalciferol (vitamin D3) (Vitamin D3) 25 mcg PO QAM clopidogrel 75 mg PO DAILY cyclobenzaprine 5 mg PO TID PRN docusate sodium (Stool Softener) 200 mg (2 x 100 mg) PO BEDTIME ezetimibe 10 mg PO QAM ferrous sulfate 325 mg PO TID fluticasone propionate 110 mcg/actuation (Flovent HFA) 1 puff inhalation BID furosemide 20 mg PO DAILY insulin glargine (Lantus Solostar U-100 Insulin) 38 units subcut BEDTIME insulin lispro (Humalog KwikPen (U-100) Insulin) Sliding Scale 6-16 subcutaneously 3 times a day; lancets As directed lancets (TRUEplus Lancets) As directed to test blood sugar 3-4 times a day loratadine 10 mg PO QAM metoprolol tartrate 50 mg PO BID omeprazole 20 mg PO DAILY pen needle, diabetic As directed pioglitazone (Actos) 30 mg PO DAILY polyethylene glycol 3350 (Miralax) 17 grams PO DAILY 30 days semaglutide (Ozempic) 0.5 mg (0.736 mL) subcut QWEEK 4 weeks sennosides (senna) 8.6 mg PO DAILY PRN sodium zirconium cyclosilicate 5 grams PO 2XW HPI HPI chronic constipation: Details: GI clinic visit for this 68 year old Kiswahili speaking female for FU of GERD, constipation and gastric and colon polyps. TODAY'S VISIT: Pt is accompanied by Joyce, her daughter and FILLER SPREADER Per daughter, pt is not having any abd pain and going to the bathroom OK - 1-2 times a day. Takes Senna only when she is constipated - gets diarrhea if not constipated. Patient denies symptoms of heartburn, dysphagia, nausea, vomiting, change in appetite or weight. Denies recent change in bowel habits, black stools or rectal bleeding. Patient denies major cardiac or pulmonary problems, loud snoring or sleep apnea Denies problems with anesthesia in the past. Pt is on Plavix. Patient denies known family history of colon polyps, colon cancer or other GI malignancies. LABS IN [facility] : REVIEWED IMAGING STUDIES: REVIEWED ENDOSCOPIC STUDIES: 07/2022 EGD AND COLON SHOWED: Endoscopy Findings: STOMACH: Mild gastric erythema with nodular appearing mucosa in the gastric body. Biopsies were obtained from the gastric body and antrum. A few 5-8 mm sessile polyps in the gastric body - biopsied. DUODENUM: Normal - biopsied to check for celiac sprue Colonoscopy Findings: Three small and three medium sized polyps removed Moderate diverticulosis seen in the left colon Large hemorrhoids on retroflexed exam. Plan: Repeat Colonoscopy interval based on path results - in 2-3 years if multiple polyps are adenomatous and 10 years if polyps are hyperplastic. BIOPSIES SHOWED: A. Small bowel, biopsy: Small intestinal mucosa with lamina propria hemosiderin deposition and mildly increased intraepithelial lymphocytes; otherwise within normal limits. See comment. B. Stomach, antrum, biopsy: Antral-type mucosa with mild chronic inactive inflammation; no Helicobacter organisms seen. C. Stomach, body, biopsy: Oxyntic mucosa with mild chronic inactive inflammation; no Helicobacter organisms seen. D. Stomach, polyp: Hyperplastic mucosal polyp with background mild chronic inactive inflammation; no Helicobacter organisms seen. E. Colon, ascending, polypectomies (2): Tubular adenomata; negative for high- grade dysplasia or carcinoma. F. Colon, transverse, polypectomies (2): Hyperplastic mucosal polyps. G. Colon, sigmoid, polypectomy: Hyperplastic mucosal polyp PAST GI HISTORY BY REVIEW OF MEDICAL RECORDS: 06/2023 PT WAS SEEN BY DEEPTI Palacios: A 60-year-old female follows up with chronic constipation. She has no specific complaints- She is not consistent bowel regimen Reviewed diet she does not improve fiber. BM to 3 days -she has her glucose is typically elevated Appetite is very good She has no nausea, vomiting hematemesis, hematochezia fever chills Colonoscopy 2022- repeat 3 years- 2025 Plan colonoscopy 2025 ER protocol- bowel regimen- consistent Medications: New sennosides (senna) 8.6 mg PO DAILY 30 days PRN 30 caps 1RF constipation Patient Instructions: Will add senna to bowel regimen continue with colace miralx hydrate HFD ER protocol reviewed diverticulosis/diverticulitis Avoid straining hemorrhoids Encouraged to call questions or concerns A follow-up PCP Repeat asymptomatic colonoscopy 2025 [facility] Medical History Abnormal Pap smear of cervix Osteoporosis Goiter Hyperparathyroidism Hypercalcemia Vitamin D deficiency HLD (hyperlipidemia) HTN (hypertension) T2DM (type 2 diabetes mellitus) On beta anurag at home Chronic constipation Diabetes Anemia GERD (gastroesophageal reflux disease) Sleep apnea Asthma CAD (coronary artery disease) Angina pectoris HTN (hypertension) Surgical History Hx of heart artery stent Hx of cholecystectomy History of esophagogastroduodenoscopy (EGD) H/O colonoscopy Family History Father Liver problem Mother Diabetes Obesity Social History Household Members Other:: With Housing: House Alcohol intake: never Patient Tobacco Use Status: Never used Tobacco Current occupational status: disabled Sexual orientation: Straight/Heterosexual Gender identity: Female Review of Systems Const All systems reviewed & are unremarkable except as noted in HPI and below Physical Exam Vital Signs: Last Vital Signs Pulse 76 02/01/24 08:42 BP 146/72 H 02/01/24 08:42 BMI result Body Mass Index 36.4 Const General: healthy appearing and no acute distress Nutritional Appearance: obese Orientation/consciousness: patient oriented x3 Limitations: language barrier HEENT Head: Yes normal to inspection Ears: hearing grossly normal bilaterally Eyes Sclerae: sclerae normal Pupils: Equal, round and reactive pupils present Neck Neck: Yes normal visual inspection Chest Chest palpation & inspection: normal inspection of the chest Resp Effort & Inspection: normal respiratory effort Auscultation: clear to auscultation bilaterally Cardio Palpation: normal PMI Rate: regular rate Rhythm: regular rhythm Heart sounds: S1 normal heart sound present, S2 normal heart sound present and no murmurs GI Inspection: Yes scar (RUQ scar of past cholecystectomy) Palpation (GI): Soft to palpation, nontender and No hepatosplenomegaly present Auscultation: normal bowel sounds Rectal Exam - Female: deferred Skin General skin exam: no rashes or lesions noted Neuro General: patient oriented x3, gait normal and moves all extremities Cranial nerves: Yes Equal, round and reactive pupils present Psych Appearance: grossly normal Mental Status: mental status grossly normal Assessment & Plan Assessment & Plan (1) GERD (gastroesophageal reflux disease): Code(s): K21.9 - Gastro-esophageal reflux disease without esophagitis Category: Medical (2) Chronic constipation: Comment: Reinforced importance of consistent bowel regimen Colace 200 mg and MiraLax q.h.s., maintain high-fiber diet. Likely due to iron supplement-as well as diabetes not well controlled per her report. Medication list reviewed Code(s): K59.09 - Other constipation Category: Medical (3) Tubular adenoma: Code(s): D36.9 - Benign neoplasm, unspecified site Category: Medical (4) Hemorrhoids: Code(s): K64.9 - Unspecified hemorrhoids Category: Medical (5) Diverticulosis of colon: Comment: High-fiber, fiber supplement Code(s): K57.30 - Diverticulosis of large intestine without perforation or abscess without bleeding Category: Medical (6) History of colon polyps: Comment: Colonoscopy Findings: Three small and three medium sized polyps removed Moderate diverticulosis seen in the left colon Large hemorrhoids on retroflexed exam. Plan: Repeat Colonoscopy interval based on path results - in 2-3 years if multiple polyps are adenomatous (Due 07/2025) Code(s): Z86.0100 - Personal history of colon polyps, unspecified Category: Medical Plan 68 year old Kiswahili speaking female with GERD, constipation and gastric and colon polyps. Pt takes Senna prn when she is constipated Patient denies major cardiac or pulmonary problems, loud snoring or sleep apnea Denies problems with anesthesia in the past. Pt is on Plavix. Patient denies known family history of colon polyps, colon cancer or other GI malignancies. ENDOSCOPIC STUDIES: 07/2022 EGD AND COLON SHOWED: Endoscopy Findings: STOMACH: Mild gastric erythema with nodular appearing mucosa in the gastric body. Biopsies were obtained from the gastric body and antrum. A few 5-8 mm sessile polyps in the gastric body - biopsied. DUODENUM: Normal - biopsied to check for celiac sprue Colonoscopy Findings: Three small and three medium sized polyps removed Moderate diverticulosis seen in the left colon Large hemorrhoids on retroflexed exam. Plan: Repeat Colonoscopy interval based on path results - in 2-3 years if multiple polyps are adenomatous Pt will be scheduled for an EGD (FU of hyperplastic gastric polyps) and a colon in 07/2025 (surveillance for colon polyps) FU in 6 months - scheduled 08/01/24 Coding Level of Care Code Est Pt Level 4 (34956) Diagnoses GERD (gastroesophageal reflux disease) K21.9 Chronic constipation K59.09 Tubular adenoma D36.9 Hemorrhoids K64.9 Diverticulosis of colon K57.30 History of colon polyps Z86.0100 Time Spent (min) 19
[2024-02-01 08:42] VITALS: BP 146/72; PULSE 76; BMI 36.4
== END 2024-02-01 09:18 | disposition home or self-care (01) ==
PROVIDERS: PCP Internal Medicine; Visit Provider Internal Medicine Gastroenterology
DX: K21.9 Gastro-esophageal reflux disease without esophagitis (principal); K59.09 Other constipation; D36.9 Benign neoplasm, unspecified site; K64.9 Unspecified hemorrhoids; K57.30 Diverticulosis of large intestine without perforation or abscess without bleeding; Z86.0100 Personal history of colon polyps, unspecified
CPT/HCPCS: 99214

== ENCOUNTER → 2024-02-01 08:30 | Outpatient (BNVA) | payer MEDICARE, SELFPAY | PROVIDERS: PCP Internal Medicine; Visit Provider Internal Medicine Gastroenterology | DX: K59.09 Other constipation (principal); K21.9 Gastro-esophageal reflux disease without esophagitis; K64.9 Unspecified hemorrhoids; K57.30 Diverticulosis of large intestine without perforation or abscess without bleeding; D36.9 Benign neoplasm, unspecified site; Z86.0100 Personal history of colon polyps, unspecified | CPT/HCPCS: 99212 ==

== ENCOUNTER 2024-02-05 07:50 | Outpatient (REF) | payer MEDICARE, SELFPAY ==
[2024-02-05 11:15] LABS: MANUAL DIFF FLAG NO
[2024-02-05 11:41] LABS: Basophils Percent Auto 0.3 % (0-2); Eosinophils Absolute Auto 0.1 X10*3/uL (0.0-0.4); Eosinophils Percent Auto 2.2 % (0-4); Hematocrit 34.4 % (37.0-47.0); Hemoglobin 11.1 g/dl (12.0-16.0); Imm Gran Abs Auto 0.02 X10*3/uL (0.00-0.03); Imm Gran Pct Auto 0.3 % (0.0-0.4); Lymphocytes Absolute Auto 2.7 X10*3/uL (1.2-4.9); Lymphocytes Percent Auto 46.6 % (20-40); Mean Corpuscular HGB Conc 32.3 g/dl (31.0-35.0); Mean Corpuscular Hemoglobin 30.9 pg (27.0-33.0); Mean Corpuscular Volume 95.8 fL (80.0-98.0); Mean Platelet Volume 11.1 fL (9.4-12.3); Monocytes Absolute Auto 0.4 X10*3/uL (0.1-1.2); Monocytes Percent Auto 7.1 % (2-11); Neutrophils Absolute Auto 2.6 x10*3/uL (2.0-8.3); Neutrophils Percent Auto 43.5 % (45-73); Platelet Count 220 X10*3/uL (160-400); Red Blood Count 3.59 X10*6/uL (4.20-5.50); Red Cell Distribution Width 13.1 % (11.0-16.0); White Blood Count 5.9 X10*3/uL (4.8-10.8)
[2024-02-05 12:11] LABS: Alanine Aminotransferase 21 U/L (0-31); Albumin Level 3.9 g/dL (3.5-5.0); Alkaline Phosphatase 54 U/L (39-117); Anion Gap 14 (12-20); Aspartate Amino Transferase 34 U/L (5-31); Bilirubin Total 0.3 mg/dL (0.0-1.0); Blood Urea Nitrogen 33 mg/dL (9-16); Calcium 10.2 mg/dL (8.4-10.2); Carbon Dioxide 27 mmol/L (22-29); Chloride 105 mmol/L (96-108); Cholesterol 123 mg/dL (<200); Estimated Glomerular Filt Rate 32; Glucose Random 93 mg/dL (60-115); HDL Cholesterol 41 mg/dL (>40); LDL Cholesterol Calculated 62 mg/dL (<100); Potassium 4.7 mmol/L (3.3-5.1); Sodium 141 mmol/L (135-145); Total Protein 6.7 g/dL (6.5-8.0); Triglycerides 104 mg/dL (<150)
== END 2024-02-05 07:51 | disposition home or self-care (01) ==
LOC: HO.HHCL 07:50
PROVIDERS: Visit Provider Internal Medicine
DX: E11.22 Type 2 diabetes mellitus with diabetic chronic kidney disease (principal); N18.31 Chronic kidney disease, stage 3a; Z79.4 Long term (current) use of insulin; D64.9 Anemia, unspecified
CPT/HCPCS: 36415; 80053; 80061; 85025

== ENCOUNTER 2024-05-01 09:01 | Outpatient (AMB) | payer MEDICARE, SELFPAY ==
--- NOTE | 2024-05-01 09:03 | A.OFFVIS_ITS ---
Vital Signs 05/01/24 09:05 Height 4 ft 11 in Weight 183 lb BMI 37.0 BP 122/72 Blood Pressure Location Rt brachial Position Sitting Pulse 73 Pulse Source Pulse Oximeter Intake Visit Reasons: DM Intake Note: Patient presents today for a follow-up for Type 2 Diabetes Mellitus: Last Diabetic Eye exam: 10/2023, Pt has cataracts, pending surgery. Last Podiatry Exam: Does not see a Data Processing Supervisor Most recent HbA1c: 9.1%, 05/01/2024 Random Glucose- 150 mg/dL, Today Test Hole Driller Required: Yes Test Hole Driller Language: Aitchbone Breaker Services: Test Hole Driller Offered & Declined Accompanied by: SPRAY GUNNER Allergies morphine [Morphine] Allergy (Intermediate, Verified 05/01/24 09:04) TACHYCARDIA, ANXIETY oxycodone [Percocet] Allergy (Intermediate, Verified 05/01/24 09:04) Palpitations prednisone [PREDNISONE] Adverse Reaction (Intermediate, Verified 05/01/24 09:04) ANXIETY Medication List - Last Reconciled 05/01/24 by Lina Jason MD acetaminophen 500 mg PO Q12H PRN albuterol sulfate 90 mcg/actuation (Ventolin HFA) 2 puffs inhalation Q4-6H PRN alcohol swabs (Easy Touch Alcohol Prep Pads) pad topical BID amlodipine 5 mg PO DAILY atorvastatin (Lipitor) 80 mg PO DAILY baclofen 10 mg PO BID bisacodyl (Dulcolax (bisacodyl)) 10 mg [place] DAILY PRN blood sugar diagnostic (OneTouch Verio test strips) TEST BLOOD SUGAR THREE OR FOUR TIMES DAILY blood-glucose meter (OneTouch Verio Flex Meter) As directed blood-glucose meter,continuous (FreeStyle Collin 3 [place]) As directed blood-glucose sensor (FreeStyle Collin 3 Sensor device) USE DIRECTED. CHANGE EVERY 14 DAYS budesonide 90 mcg/actuation (Pulmicort Flexhaler) 2 inhalations inhalation BID calcium citrate-vitamin D3 200 mg-6.25 mcg (250 unit) 2 tabs PO DAILY calcium polycarbophil (Fiber-Lax) 1,250 mg (2 x 625 mg) PO QAM cholecalciferol (vitamin D3) (Vitamin D3) 25 mcg PO QAM clopidogrel 75 mg PO DAILY cyclobenzaprine 5 mg PO TID PRN docusate sodium 200 mg (2 x 100 mg) PO BEDTIME ezetimibe 10 mg PO QAM ferrous sulfate 325 mg PO TID fluticasone propionate 110 mcg/actuation (Flovent HFA) 1 puff inhalation BID furosemide 20 mg PO DAILY insulin glargine (Lantus Solostar U-100 Insulin) 38 units subcut BEDTIME insulin lispro (Humalog KwikPen (U-100) Insulin) Sliding Scale 6-16 subcutaneously 3 times a day; lancets As directed lancets (TRUEplus Lancets) As directed to test blood sugar 3-4 times a day loratadine 10 mg PO QAM metoprolol tartrate 50 mg PO BID omeprazole 20 mg PO DAILY pen needle, diabetic As directed pioglitazone (Actos) 30 mg PO DAILY polyethylene glycol 3350 (Miralax) 17 grams PO DAILY 30 days semaglutide (Ozempic) 0.5 mg (0.736 mL) subcut QWEEK 4 weeks sennosides (senna) 8.6 mg PO DAILY PRN sodium zirconium cyclosilicate 5 grams PO 2XW HPI Comments Details: 68 year old female presenting for diabetic follow up Medical history: HTN, HLD, Vitamin D deficiency, hypercalcemia T2DM: Initially diagnosed with T2DM in 1999 during a routine screening physical. Was initially started on treatment with orals, and has been requiring insulin since 2014. Current regimen Lantus 38 units qHS, Humalog 12 units AC, Actos 30 mg PO daily and Ozempic 0.5 mg-she has been mistakenly only taking 0.25. POC A1C today is 9.1 which seems incongruent with her one touch meter. Glucometer download shows POCs once a day. Average glucose is 125 with range 77-199 TGT 93%. No recent hypoglycemia Family history of T2DM in her mother, daughter and her siblings. Last eye exam 10/2023, cataracts Denies neuropathy, does not see podiatry. Has nephropathy, CKD-follows with renal Has HLD, on Atorvastatin 80 mg PO daily and Zetia 10 mg PO daily. Has CAD-follows with cardiology 2) Hypercalcemia:Has a history of hypercalcemia with elevated PTH. Did not complete full workup for this. 24 hour urine for calcium was low but collection was inadequate with low 24 hour urinary creatinine DXA: 03/01/2022-repeat ordered FINDINGS: AP SPINE L1-L4: Current: BMD 0.984 g/cm2, Z-score -0.8, T-score -1.6, osteopenia, 2.3% increase from previous, 2.9% decrease from baseline (<5% change is not significant). Prior: BMD 0.962 g/cm2. Baseline: BMD 1.013 g/cm2. LEFT FEMUR, NECK: Current: BMD 0.820 g/cm2, Z-score -0.5, T-score -1.6, osteopenia. Prior: BMD 0.779 g/cm2. Baseline: BMD 0.921 g/cm2. LEFT FEMUR, TOTAL: Current: BMD 0.839 g/cm2, Z-score -0.6, T-score -1.3, osteopenia, 3.1% decrease from previous, 17.5% decrease from baseline (<5% change is not significant). Prior: BMD 0.866 g/cm2. Baseline: BMD 1.017 g/cm2. LEFT FOREARM RADIUS 33%: BMD 0.618 g/cm2, Z-score -1.4, T-score -2.9, osteoporosis, 9.5% decrease from baseline (<5% change is not significant). ROS CONSTITUTIONAL: Denies weight loss, fever and chills. HEENT: Denies changes in vision and hearing. RESPIRATORY: Denies SOB and cough. CV: Denies palpitations and CP GI: Denies abdominal pain, nausea, vomiting and diarrhea. : Denies dysuria and urinary frequency. MSK: Denies new myalgia and joint pain. SKIN: Denies rash and pruritus. NEUROLOGICAL: Denies headache PSYCHIATRIC: Denies recent changes in mood. PHYSICAL EXAM: GENERAL: Alert and oriented x 3. NAD EYES: EOMI. Anicteric. HENT: Moist mucous membranes. No scleral icterus. No cervical lymphadenopathy. LUNGS: Clear to auscultation bilaterally. CARDIOVASCULAR: Regular rate and rhythm. No murmur. No JVD. ABDOMEN: Soft, non-tender +bs EXTREMITIES: No edema. Non-tender. SKIN: No rashes or lesions. Warm. NEUROLOGIC: No focal neurological deficits. CN II-XII grossly intact PSYCHIATRIC: Cooperative. Appropriate mood and affect [facility] Medical History Abnormal Pap smear of cervix Osteoporosis Goiter Hyperparathyroidism Hypercalcemia Vitamin D deficiency HLD (hyperlipidemia) HTN (hypertension) T2DM (type 2 diabetes mellitus) On beta anurag at home Chronic constipation Diabetes Anemia GERD (gastroesophageal reflux disease) Sleep apnea Asthma CAD (coronary artery disease) Angina pectoris HTN (hypertension) Surgical History Hx of heart artery stent Hx of cholecystectomy History of esophagogastroduodenoscopy (EGD) H/O colonoscopy Family History Father Liver problem Mother Diabetes Obesity Social History Household Members Other:: With Housing: House Alcohol intake: never Patient Tobacco Use Status: Never used Tobacco Current occupational status: disabled Sexual orientation: Straight/Heterosexual Gender identity: Female Physical Exam Vital Signs: Last Vital Signs Pulse 73 05/01/24 09:05 BP 122/72 05/01/24 09:05 BMI result Body Mass Index 37.0 Results AMB Hemoglobin A1c AMB Hemoglobin A1c 9.1 % Last Edit by SHAHEED Dalton on 05/01/24 09:24 Results Reviewed Results Reviewed: Laboratory Last Values Glucose (Clinic) 150 mg/dL (60-115) H 05/01/24 09:11 Assessment & Plan Assessment & Plan (1) T2DM (type 2 diabetes mellitus): Code(s): E11.9 - Type 2 diabetes mellitus without complications Category: Medical Qualifiers: Diabetes mellitus correction insulin use: with correction use Diabetes mellitus complication status: with hyperglycemia Qualified Code(s): E11.65 - Type 2 diabetes mellitus with hyperglycemia; Z79.4 - [facility] (current) use of insulin Plan: suboptimal control, some small interval weight gain. Increase to 0.5 weekly on ozempic. continue doses of other diabetic medications Check serum A1C Orders: Orders Hemoglobin A1c Today E11.65 - Type 2 diabetes mellitus with hyperglycemia, Z79.4 - [facility] (current) use of insulin AMB Hemoglobin A1c Today E11.65 - Type 2 diabetes mellitus with hyperglycemia, Z79.4 - [facility] (current) use of insulin Medications: Refilled semaglutide (Ozempic) 0.5 mg (0.736 mL) subcut QWEEK 4 weeks 3 mL 5RF Coding Level of Care Code Est Pt Level 4 (81733) Diagnoses Type 2 diabetes mellitus with hyperglycemia, with long-term current use of insulin E11.65; Z79.4 Diabetes mellitus correction insulin use: with correction use Diabetes mellitus complication status: with hyperglycemia
[2024-05-01 09:05] VITALS: BP 122/72; PULSE 73; BMI 37.0
--- OUTSIDE RECORDS SUMMARY | 2024-05-01 09:12 | XMS_ITS | Encounter Summary ---
Author Organization [id number] Address [address] [facility] [address] [place] [address] Care Team Providers Care Chief Substation Operator Name Role Phone James Flores MD Primary Care Provide r Encounter Details Date Type Department Care Team (Late st Contact Info) Description 04/13/2022 Orders Only [facility] [address] [place] [address] [phone] April Olsen LPN Social History Tobacco Use Types Packs/Day Years Used Date Smoking Tobacco: Never Assessed Depression Answer Date Recorded Patient Health Questionnaire-2 Score 0 02/21/2022 Comments Unknown Sex and Gender Information Value Date Recorded Sex Assigned at Female 01/10/2022 10:14 AM EDT Legal Sex Female 10:14 AM EDT Gender Identity Female 01/10/2022 10:14 AM EDT Sexual Orientation Straight 01/10/2022 10 :14 AM EDT COVID-19 Exposure Response Date Recorded In the last 10 days, have yo u been in contact with someone who was confirmed or suspected to have Coronavirus/COVID-19? No / Unsure 03/17/2022 3:37 PM EST documented as of this encounter Plan of Treatment Upcoming Encounters Date Type Department Care Team (Late st Contact Info) Description 05/30/2024 9:15 AM EDT Office Visit [facility] [address] [place], [place] [phone] James Flores MD [address] [place], [place] [phone] documented as of this encounter Visit Diagnoses Not on filedocumented in this encounter Care Teams Chief Substation Operator Relationship Specialty Start Date End Date James Flores MD [address] [place] [id number] PCP - General Internal Medicine 02/04/14 documented as of this encounter
--- OUTSIDE RECORDS SUMMARY | 2024-05-01 09:12 | XMS_ITS | Encounter Summary ---
Author Organization [employer] Address [address] [facility] [address] [place] [address] Care Team Providers Care Field Attendant Name Role Phone James Flores MD Primary Care Provide r Encounter Details Date Type Department Care Team ([facility] st Contact Info) Description 01/09/2023 Orders Only [facility] [address] [place], [place] [phone] Jaja Hammond LPN Social History Tobacco Use Types Packs/Day Years Used Date Smoking Tobacco: Never Assessed Housing Stability Answer Date Recorded What is your housing situation today? Not on dnaiel e 12/28/[address] you li ve. Do you have problems with any of the following? None of the above 12/28/2022 Food Insecurity Answer Date Recorded Within the past 12 months, y ou worried that your food would run out before you got money to buy more: Never True 12/28/2022 Within the past 12 months,th e food you bought just didn't last and you didn't have enough money to get more: Never True Transportation Answer Date Recorded In the past 12 months, has l ack of transportation kept you from medical appts, meetings, work or from getting things needed for daily living? No 12/28/2022 Utilities Answer Date Recorded In the past 12 months, has t he electric, gas,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 threatened to shut off services in your home? No 12/28/2022 Depression Answer Date Recorded Patient Health Questionnaire-2 Score 0 02/21/2022 Comments Unknown Sex and Gender Information Value Date Recorded Sex Assigned at Female 01/10/2022 10:14 AM EDT Legal Sex Female 10:14 AM EDT Gender Identity Female 01/10/2022 10:14 AM EDT Sexual Orientation Straight 01/10/2022 10 :14 AM EDT documented as of this encounter Plan of Treatment Upcoming Encounters Date Type Department Care Team (Late st Contact Info) Description 05/30/2024 9:15 AM EDT Office Visit [facility] [address] [place] [address] James Flores MD [address] [place] [address] documented as of this encounter Visit Diagnoses Not on filedocumented in this encounter Care Teams Field Attendant Relationship Specialty Start Date End Date James Flores MD [address] [place] [id number] PCP - General Internal Medicine 02/04/14 documented as of this encounter
--- OUTSIDE RECORDS SUMMARY | 2024-05-01 09:12 | XMS_ITS | Encounter Summary ---
Author Organization [employer] Address [address] [facility] [address] [place] [address] Care Team Providers Care Network Designer Name Role Phone James Flores MD Primary Care Provide r Encounter Details Date Type Department Care Team (Late st Contact Info) Description 06/14/2022 Orders Only [facility] PEDS [address] [place], [place] [phone] Jaja Hammond LPN Social History Tobacco Use [...] Description 05/30/2024 9:15 AM EDT Office Visit [facility] [address] [place], [place] [phone] James Flores MD [address] [place], [place] [phone] documented as of this encounter Visit Diagnoses Not on filedocumented in this encounter Care Teams Network Designer Relationship Specialty Start Date End Date James Flores MD [address] [place], [place] [phone] PCP - General Internal Medicine 02/04/14 documented as of this encounter
--- OUTSIDE RECORDS SUMMARY | 2024-05-01 09:12 | XMS_ITS | Encounter Summary ---
Author Organization [facility] Address [address] [place] [address] Phone Care Team Providers Care Upstream Biomanufacturing Technician Name Role Phone James Grant MD Primary Care Provider Unav ailable Reason for Visit * Reason Comments Med Refill Encounter Details Date Type Department Care Team (Late st Contact Info) Description 12/14/2022 Refill [facility] [address] [place] [address] Osmany Leung MD Social History Tobacco Use Types Packs/Day Years Used Date Smoking Tobacco: Never Smokeless Tobacco: Never Alcohol Use Standard Drinks/Week Comments No 0 (1 standard drink = 0.6 oz pur e alcohol) Comments Unknown Sex and Gender Information Value Date Recorded Sex Assigned at Not on file Legal Sex Female 4:39 PM EST Gender Identity Not on file Sexual Orientation Not on file documented as of this encounter Plan of Treatment Not on file documented as of this encounter Visit Diagnoses Not on filedocumented in this encounter Care Teams Upstream Biomanufacturing Technician Relationship Specialty Start Date End Date James Grant MD PCP - General 03/23/20 documented as of this encounter
--- OUTSIDE RECORDS SUMMARY | 2024-05-01 09:12 | XMS_ITS | Encounter Summary ---
Author Organization [employer] Address [address] [facility] 7t [place] [address] Care Team Providers Care Slabbing Machine Operator Name Role Phone James Flores MD Primary Care Provide r Encounter Details Date Type Department Care Team (Late Contact Info) Description 02/21/[address] [facility] MEDICINE [address] [place] [address] [phone] James Flores MD [address] [place] [address] [phone] Social History Tobacco Use Types Packs/Day Years [...] suspected to have Coronavirus/COVID-19? No / Unsure 02/21/2022 10:46 AM EST documented as of this encounter Plan of Treatment Upcoming Encounters Date Type Department Care Team (Late Contact Info) Description 05/30/2024 9:15 AM EDT Office Visit [facility] MEDICINE [address] [place] [address] [phone] James Flores MD [address] [place] [address] documented as of this encounter Procedures Procedure Name Priority Date/Time Associated Diagnosis Comments PAP/HPV Routine 01/17/2022 MAMMOGRAPHY Routine 01/29/2021 documented in this encounter Results * Pap Smear (01/17/2022) Pap smear NIL HPV mRNA E6/E7 not detected Comment:Opal NOONAN Historical Provider HEALTH MAINTENANCE Final Result * Mammography (01/29/2021) Mammogram BI-RADS 1 Anatomical Region Laterality Modality Other us Historical Provider HEALTH MAINTENANCE Final Result documented in this encounter Visit Diagnoses Not on filedocumented in this encounter Care Teams Slabbing Machine Operator Relationship Specialty Start Date End Date James Flores MD [address] [place] [id number] PCP - General Internal Medicine 02/04/14 documented as of this encounter
--- OUTSIDE RECORDS SUMMARY | 2024-05-01 09:12 | XMS_ITS | Encounter Summary ---
Author Organization [employer] Address [address] [facility] 7t [place] [address] Care Team Providers Care Forex Trader Name Role Phone James Flores MD Primary Care Provide r Encounter Details Date Type Department Care Team ([facility] st Contact Info) Description 01/11/2024 Telephone [facility] MEDICINE [address] [place], [place] [phone] James Flores MD [address] [place], [place] [phone] Social History Tobacco Use Types Packs/Day Years Used Date Smoking Tobacco: Never Passive Smoke Exposure: Never Smokeless Tobacco: Never Housing Stability Answer Date Recorded What is your housing situation today? I have maríatania noriega 01/19/[address] you li ve. Do you have problems with any of the following? None of the above 01/19/2023 Food Insecurity Answer Date Recorded Within the [...] Description 05/30/2024 9:15 AM EDT Office Visit [facility] [address] [place] [address] James Flores MD [address] [place] [address] documented as of this encounter Visit Diagnoses Not on filedocumented in this encounter Care Teams Forex Trader Relationship Specialty Start Date End Date James Flores MD [address] [place] [address] PCP - General Internal Medicine 02/04/14 documented as of this encounter
--- OUTSIDE RECORDS SUMMARY | 2024-05-01 09:12 | XMS_ITS | Encounter Summary ---
Author Organization [employer] Address [address] [facility] 7t [place] [address] Care Team Providers Care Cd Storage And Materials Make Up Helper Name Role Phone James Flores MD Primary Care Provide r Reason for Visit * Reason Onset Date Comments Nurse Triage 03/18/2024 Encounter Details Date Type Department Care Team ([facility] st Contact Info) Description 03/18/2024 Telephone [facility] MEDICINE [address] [place], [place] [phone] James Flores MD [address] [place], [place] [phone] Nurse Triage Social History Tobacco Use Types Packs/Day Years Used Date Smoking Tobacco: Never Passive Smoke Exposure: Never Smokeless Tobacco: Never Depression Answer Date Recorded Patient Health Questionnaire-9 Score 0 01/30/2024 Patient Health Questionnaire-9 Score 0 01/30/2024 Last PHQ-9: Questionnaire Data Not on file 1 03/31/2023 Housing Stability Answer Date Recorded What is your housing situation today? I have maría noriega 01/19/[address] you [...] Date Recorded Patient Health Questionnaire-2 Score 0 01/30/2024 Internet Access Answer Date Recorded Internet Access Q1 No 01/19/2024 Internet Access Q2 I do not want or need it 10/2023 Comments Unknown Sex and Gender Information Value Date Recorded Sex Assigned at Female 01/10/2022 10:14 AM EDT Legal Sex Female 10:14 AM EDT Gender Identity Female 01/10/2022 10:14 AM EDT Sexual Orientation Straight 01/10/2022 10 :14 AM EDT documented as of this encounter Miscellaneous Notes * Telephone Encounter - Meghan Chandler RN - 03/18/2024 11:50 AM EST Triage call with [facility] [place] [id number]. Pt reports continual coughing with cold symptoms. Pt was seen in [facility] 02/29/24 for cough and exacerbation of asthma. Pt reports has been using inhaler and nebulizer as prescribed though not every day.Pt denies having difficulty breathing. Pt requests to see provider again due to continuation of cough and cold symptoms neg for fever. Pt is advised to return to [facility] today open till 8pm and Pt agreeswith this disposition. Pt is requesting what medication could be taken for cough , Pt is taking BP medications and is advised to ask provider when seen in [facility] and Pt agrees. Insurance is verified as active. Protocol Used: Cough (Adult) Protocol-Based Disposition: See in Office or Video Visit Today or Tomorrow Video visit not offered Positive Triage Questions: * Continuous (nonstop) coughing interferes with work or school and no improvement using cough treatment per Care Advice * Patient wants to be seen * All higher-acuity triage questions were negative Care Advice Discussed: * Reassurance and Education - Cough * Cough Medicines * Coughing Spells * Prevent Dehydration * Reasons To Call Back - Difficulty breathing - Cough lasts more than 3 weeks - Fever lasts more than 3 days - You become worse * Telephone Encounter - Ya Sam - 03/18/2024 9:55 AM EST Symptom: Cough Outcome: Schedule an appointment to be seen within 24 hours Reason: Caller denied all higher acuity questions The caller accepted this outcome. documented in this encounter Plan of Treatment Upcoming Encounters Date Type Department Care Team (Late st Contact Info) Description 05/30/2024 9:15 AM EDT Office Visit [facility] MEDICINE [address] [place] [address] James Flores MD [address] [place] [address] documented as of this encounter Visit Diagnoses Not on filedocumented in this encounter Additional Health Concerns Assessment Noted Time PHQ-9 Depression Total Score: 0 01/30/20 24 10:37 AM EST documented as of this encounter Care Teams Cd Storage And Materials Make Up Helper Relationship Specialty Start Date End Date James Flores MD [address] [place] [address] PCP - General Internal Medicine 02/04/14 documented as of this encounter
--- OUTSIDE RECORDS SUMMARY | 2024-05-01 09:12 | XMS_ITS | Encounter Summary ---
Author Organization [employer] Address [address] [facility] 7t [place] [address] Care Team Providers Care Counter Top Assembler Name Role Phone James Flores MD Primary Care Provide r Reason for Visit * Reason Onset Date Comments Durable Medical Equipment 09/27/2023 Encounter Details Date Type Department Care Team ([facility] st Contact Info) Description 09/27/2023 Telephone [facility] MEDICINE [address] [place] [address] James Flores MD [address] [place], [place] [phone] Durable Medical Equipment Social History Tobacco Use Types Packs/Day Years [...] t he electric, gas, oil or water [employer] threatened to shut off services in your [...] encounter Miscellaneous Notes * Telephone Encounter - Charis Kwon - 10/05/2023 3:48 PM EDT Tc from Jayne and daughter requesting status on message below, about 10 in 1 flip pillow DME Please contact at [phone] * Telephone Encounter - Fernando Christie - 09/27/2023 2:40 PM EDT Tc from pt 10 in 1 flip pillow due to issues sleeping. Pt would like script to be faxed to [facility]. If any questions you can contact pt at [phone]. documented in this encounter Plan of Treatment Upcoming Encounters Date Type Department Care Team (Late st Contact Info) Description 05/30/2024 9:15 AM EDT Office Visit [facility] MEDICINE [address] [place] [address] James Flores MD [address] [place] [address] documented as of this encounter Visit Diagnoses Not on filedocumented in this encounter Care Teams Counter Top Assembler Relationship Specialty Start Date End Date James Flores MD [address] [place] [id number] PCP - General Internal Medicine 02/04/14 documented as of this encounter
--- OUTSIDE RECORDS SUMMARY | 2024-05-01 09:12 | XMS_ITS ---
Author Name Mr. Arlen Márquez Address [address] [place] [address] Phone [phone] [facility] Care Team Providers Care School Superintendent Name Role Phone Micah Judge Unavailable [phone] Unavailable Unavailable Unavailable Reason for Referral Not Available Allergies, adverse reactions, alerts Allergen Type Reaction Severity Status Onset Date Percocet Allergy to substance (disorder) palpitations Sever e Active N/A Morphine Allergy to substance (disorder) Unknown Active N/A History of medication use Medication Class Instructions Start Date End Date Alcohol Prep 70 % Pad USE DIRECTED 2021-12-31 No Data Available Loratadine 10 mg Tab TAKE 1 TABLET BY MO UTH EVERY MORNING 2021-12-13 No Data Available amLODIPine Besylate 5 mg Tab TAKE 1 TABL ET BY MOUTH EVERY EVENING 2022-01-11 No Data Available Atorvastatin Calcium 80 mg Tab TAKE 1 TABLET BY MOUTH EVERY EVENING 2021-09-15 No Data Available Clopidogrel Bisulfate 75 mg Tab TAKE 1 TABLET BY MOUTH EVERY EVENING 2021-08-25 No Data Available Docusate Sodium 100 mg Cap TAKE 2 CAPSUL ES BY MOUTH EVERY DAY AT BEDTIME 2021-11-01 No Data Available FeroSul 325 (65 Fe) MG Tab TAKE 1 TABLET BY MOUTH THREE TIMES DAILY IN THE MORNING, AT NOON, AND IN THE EVENING 2021-12-13 No Data Available Furosemide 20 mg Tab TAKE 1 TABLET BY MO UTH EVERY MORNING 2021-09-14 No Data Available HumaLOG KwikPen 100 UNIT/ML Solution Pen-injector INJECT 4 TO 12 UNITS SUBCUTANEOUSLY DIRECTED PER SLIDING SCALE (150-200 = 6 UNITS, 201-250 = 10 UNITS, 251-300 = 12 UNITS, 301-350 = 14 UNITS, >351 = 16 UNITS 2021-11-03 No Data Available Omeprazole 20 mg Cap delayed rel TAKE 1 CAPSULE BY MOUTH EVERY MORNING 2021-09-15 No Data Available OneTouch Verio Strip USE THREE OR FOUR T IMES DAILY 2022-01-05 No Data Available Trulicity 1.5 mg/0.5ML Solution Pen-injector INJECT ONE PEN (=1.5MG) SUBCUTANEOUSLY ONCE A WEEK DIRECTED 2021-02-07 2022-07-12 UltiCare Pen Needle 32 gauge x 5/32 USE FOUR TIMES DAILY 2021-08-06 No Data Available Vitamin D3 25 mcg (1,000 unit) capsule TAKE 1 CAPSULE BY MOUTH EVERY MORNING 2022-01-12 No Data Available Metoprolol Tartrate 50 mg Tab TAKE 1 TABLET BY MOUTH TWICE DAILY IN THE MORNING AND IN THE EVENING WITH FOOD 2022-01-21 No Data Available Ezetimibe 10 mg Tab TAKE 1 TABLET BY LISA TH EVERY MORNING 2022-01-30 No Data Available Acetaminophen Extra Strength 500 mg Tab TAKE 2 TABLETS BY MOUTH EVERY 8 HOURS NEEDED FOR PAIN. NO MORE THAN 6 TABLETS PER 24 HOURS 2021-12-07 No Data Available Albuterol Sulfate HFA 108 (90 Base) MCG/ACT Aerosol Solution INHALE 2 PUFFS BY MOUTH EVERY 4 TO 6 HOURS NEEDED 2021-07-20 No Data Available Diclofenac Sodium 1 % Gel APPLY 2 GRAMS TOPICALLY FOUR TIMES DAILY TO ELBOW, WRIST, OR HAND (PALM/FINGERS/BACK OF HAND) 2022-02-08 No Data Available Lantus SoloStar 100 UNIT/ML Solution Pen-injector INJECT 35 UNITS SUBCUTANEOUSLY SUBCUTANEOUSLY ONCE DAILY 2021-11-04 No Data Available OneTouch Delica Plus [id number] Miscellaneous TEST BLOOD SUGAR THREE OR FOUR TIMES DAILY 2021-06-30 No Data Available Pentips 32 gauge x 5/32 needle USE DIRECTED FOUR TIMES DAILY 2022-03-15 No Data Available Medbox Status USE DIRECTED 2022-02-22 No Data Swathi ilable Ozempic (0.25 or 0.5 mg/DOSE) 2 mg/1.5ML Solution Pen-injector INJECT 0.25 MG SUBCUTANEOUSLY ONCE PER WEEK FOR 28 DAYS 2022-06-13 No Data Available Bisacodyl EC 5 mg Tab delayed rel TAKE 2 TABLETS BY MOUTH FOR 1 DAY DIRECTED 2022-07-07 2022-07-12 Polyethylene Glycol 3350 17 GM/SCOOP Powder MIX 17 GRAMS WITH WATER ONCE DAILY AND DRINK DIRECTED 2022-07-07 2022-07-12 Problem List Problem Status Onset Date Resolved Date Type 2 diabetes mellitus wit h stage 3b chronic kidney disease Active 2022-07-15 N/A Severe obesity (BMI >= 40) Active 2022-07-15 N /A Poor historian Active 2022-07-15 N/A History of CVA (cerebrovascular accident) Active 2022-07-15 N/A Constipation Active 2022-07-12 N/A Difficulty demonstrating health literacy Active 2022-07-12 N/A Encounters Encounters Type Facility Date of Service Diagnosis/Co mplaint No Data Available [facility]/2022 Type 2 diabetes mellitus wit h diabetic chronic kidney diseaseChronic kidney disease, stage 3bLong term (current) use of insulinMorbid (severe) obesity due to excess caloriesBody mass index (BMI) 40.0-44.9, adultOther specified health statusConstipation, unspecifiedProblems related to health literacyPrsnl hx of TIA (TIA), and cereb infrc w/o resid deficits No Data Available [facility], [facility]) 07/12/2022 No Data Available [facility], [facility]) 07/12/2022 No Data Available [facility], [facility]) 07/12/2022 No Data Available [facility] [place] 07/12/2022 No Data Available [facility] [place] 07/[place]/2022 No Data Available [facility] [place] 07/[place]/2022 Morbid (severe) obesity due to excess caloriesBody mass index (BMI) 40.0-44.9, adultType 2 diabetes mellitus with diabetic chronic kidney diseaseChronic kidney disease, stage 3bPrsnl hx of TIA (TIA), and cereb infrc w/o resid deficitsOther specified health status No Data Available [facility] [place] 07/22/2022 Vital Signs Date of Collection Vitals 2022-07-12 11:38:39 Height - 147.32 cmWe ight - 87.09 kgBody Mass Index (BMI) - 40.13 kg/m2 Social History Sex Female History of Procedures Procedures Service Procedure code Service date Servicing provider Phone# No Data Available [id number] 2022-07-12 No Data Available No Data Available Medication List Documented (1159F) 1159F 2022-07-12 No Data Available No Data Swathi ilable Medication Review by prescribing provider or pharmacist documented (1160F) 1160F 2022-07-12 No Data Available No Data Swathi ilable Pain Assessment - NO pain present (1126F) 1126F 2022-07-12 No Data Available No Data A vailable Advance Care Directive Advance care planning discussion documented in the medical record (1158F) 1158F 2022-07-12 No Data Available No Data Availa ble BMI obtained (3008F) 3008F 2022-07-12 No Data Availab le No Data Available No Data Available [id number] 2022-07-22 No Data Available No Data Available Medication List Documented (1159F) 1159F 2022-07-22 No Data Available No Data Swathi ilable Functional Status Functional Category Effective Dates ADL: Bathing: Needs assistan ceDressing: Needs assistanceEating: IndependentAmbulation: Needs assistanceTransferring: Needs assistanceToileting: Needs assistanceIADL: Medication: Needs AssistanceMeal Prep: Needs AssistanceShopping: Needs AssistanceHousekeeping: Needs AssistanceFalls in last 6 Months: No 2022-07-12 Mental Status No Information Assessments Date of Service Assessments 2022-07-12 11:38:39 ConstipationDifficul ty demonstrating health literacyType 2 diabetes mellitus with stage 3b chronic kidney diseaseSevere obesity (BMI >= 40)Poor historianHistory of CVA (cerebrovascular accident)It was difficult to get a good idea of patient's situation due to her health illitracy and ?low register. We will FU w a caregiver present and get a better sense. 2022-07-22 11:03:57 <Fully document all Diagnosis>Poor historianSevere obesity (BMI >= 40)History of CVA (cerebrovascular accident)Poor historianType 2 diabetes mellitus with stage 3b chronic kidney disease Plan of Care Date of Service Plans 2022-07-12 11:38:39 Pain Assessment - NO pain documented (1126F)Medication Review by prescribing provider or pharmacist documented (1160F)Medication List Documented (1159F)Functional Status Assessed (1170F)BMI obtained (3008F)Televideo new patient,40-59min; chronic exacerbation, 2 stable chronic or 1 acute illness add modifier 95Continue to see PCP. Follow-up with [facility] as needed for any acute or disease education needs that may arise.2/2 ironOn docusateOnFU will suggest use every other day.does not know what her medications are forGFR 35 on 06/09/2022HumalogLantusOzempicEd on healthy diet, activity. Avoid nephrotoxic drugs, but patient cannot handle this request due toher health illiteracy.BMI 40.13Ed re weight reduction.Will have to focus more on this at future FU appt as pt was not understanding much of the conversation.Member not able to accurately describe her medical situation, and seemed to have a very poor understanding of it.Sequelae unclearPt unable to describe though unclear if tis was an intellectual problem or 2/2 stroke.Will discuss further 2022-07-22 11:03:57 Televideo 20-29min; 1 stable chronic or 2 minor; add modifier 95Phone (patient, parent, or guardian); 5-10 minutes of medical discussion (no modifier 95)Continue to see PCP. Follow-up with [facility] as needed for any acute or disease education needs that may arise 03/10.Member not able to accurately describe her medical situation, and seemed to have a very poor understanding of it.BMI 40.13Ed re weight reduction.Will have to focus more on this at future FU appt as pt was not understanding much of the conversation.Sequelae unclearPt unable to describe though unclear if tis was an intellectual problem or 2/2 stroke.Will discuss furtherMember not able to accurately describe her medical situation, and seemed to have a very poor understanding of it.GFR 35 on 06/09/2022HumalogLantusOzempicEd on healthy diet, activity. Avoid nephrotoxic drugs, but patient cannot handle this request due toher health illiteracy. Health Concerns Date Concern 2022-07-22 HEDIS review: 2022-07-22 Visit completed via audio by telephone. Patient/Guardian agreed to visit via telehealth.Time spent: 0:26:00 2022-07-22 HEDIS review: 2022-07-22 TRIED TO DO VIDEOCAL L AGAIN - despite deliberate plans to have someone there to help her, she did o and we could notall well, stable, no changes
--- OUTSIDE RECORDS SUMMARY | 2024-05-01 09:12 | XMS_ITS | Clinical Summary ---
Author Organization [facility] Address [address] [place] [address] Phone Care Team Providers Care Home Health Caregiver Name Role Phone James Grant MD Primary Care Provider Unav ailable Allergies Active Allergy Reactions Criticality Noted Date Comments Morphine Other (see comments) 07/09/2017 Oxycodone-Acetaminophen Other (see comments) Medications ALBUTEROL SULFATE IN Active amLODIPine (NORVASC) 5 MG tablet Take 5 mg by mouth at bed time 2 Active Pulmicort Flexhaler 90 MCG/ACT inhaler INHALE 2 PUFFS BY MOUTH TWICE DAILY RINSE MOUTH AFTER USING. 2 Active atorvastatin (LIPITOR) 80 MG tablet Take 80 mg by mouth at bed time 2 Active Vitamin D High Potency 25 MCG (1000 UT) capsule Take 1,000 Units by mouth 2 Active Trulicity 1.5 MG/0.5ML solution pen-injector INJECT ONE PEN (=1.5MG) SUBCUTANEOUSLY ONCE A WEEK DIRECTED 2 Active FeroSul 325 (65 Fe) MG tablet TAKE 1 TABLET BY MOUTH THREE TIMES DAILY IN THE MORNING, AT NOON, AND IN THE EVENING 2 Active loratadine (CLARITIN) 10 MG tablet Take 10 mg by mouth 2 Active metoprolol tartrate 25 MG tablet Take 25 mg by mouth every morning and evening 2 Active omeprazole (PriLOSEC) [address] capsule Take 20 mg by mouth 2 Active fluticasone (FLONASE) 50 MCG/ACT nasal spray Administer 2 sprays into affected nostril(s) daily 2 Active Lokelma 5 g pack MIX 1 PACKET WITH WATER AND DRINK TWICE A WEEK DIRECTED 30 each 1 2 Active clopidogrel (PLAVIX) 75 MG tablet Take 75 mg by mouth at bed time 2 Active furosemide (LASIX) 20 MG tablet TAKE 1 TABLET BY MOUTH EVERY MORNING 30 tablet 4 3 Active Active Problems Problem Noted Date Diagnosed Date Asthma 07/08/2020 Chronic anemia 07/08/2020 Chronic kidney disease stage 3 07/08/2020 Diabetes mellitus 07/08/2020 Essential hypertension 07/08/2020 Hyperkalemia 07/08/2020 Obstructive sleep apnea syndrome 07/08/2020 Family History Medical History Relation Comments Diabetes Sibling 1 brothers Hypertension Sibling 2 brothers Heart disease Sibling 3 brothers Relation Status Comments Father Mother Sibling 1 Sibling 2 Sibling 3 Social History Tobacco Use Types Packs/Day Years Used Date Smoking Tobacco: Never Smokeless Tobacco: Never Tobacco Cessation:Counseling Given: Not Answered Alcohol Use Standard Drinks/Week Comments No 0 (1 standard drink = 0.6 oz pur e alcohol) Comments Unknown Sex and Gender Information Value Date Recorded Sex Assigned at Not on file Legal Sex Female 4:39 PM EST Gender Identity Not on file Sexual Orientation Not on file Last Filed Vital Signs Vital Sign Reading Time Taken Comments Blood Pressure 118/62 12/30/2021 2:09 PM EDT Pulse 80 12/30/2021 2:09 PM EDT Temperature - - Respiratory Rate - - Oxygen Saturation 96% 12/30/2021 2:09 PM EDT Inhaled Oxygen Concentration - - Weight 90.4 kg (199 lb 3.2 oz) 12/30/2021 2:09 P M EDT Height 160 cm (5' 3 ) 05/13/2019 12:00 PM EST Body Mass Index 35.29 05/13/2019 12:00 PM EST Plan of Treatment Health Maintenance Due Date Last Done Comments Breast Cancer Screening 1955 Pneumococcal Vaccine: 65+ Years (1 of 2 - PCV) 05/18/1961 Colorectal Cancer Screening: Annual FOBT 05/18/2004 Colorectal Cancer Screening: Colonoscopy 05/18/2004 Colorectal Cancer Screening: Sigmoidoscopy 05/18/2004 Diabetes: Ophthalmology Exam 04/13/2020 Diabetes: Pedal Pulse Checked 04/13/2020 Diabetes: Sensory Foot Exam 04/13/2020 Diabetes: Visual Foot Exam 04/13/2020 Diabetes: Hemoglobin A1C 05/01/2024 01/30/2024 Influenza Vaccine Completed 01/30/2024, , 12/09/2021, Additional history exists Hepatitis B Vaccine Aged Out No longe r eligible based on patient's age to complete this topic Insurance [employer] [place] [id number] [employer] Care Teams Home Health Caregiver Relationship Specialty Start Date End Date James Grant MD PCP - General 03/23/20
--- OUTSIDE RECORDS SUMMARY | 2024-05-01 09:12 | XMS_ITS | Clinical Summary ---
Author Organization [employer] Address [address] [facility] [address] [place] [address] Care Team Providers Care Manager Nuclear Name Role Phone James Flores MD Primary Care Provide r Allergies Active Allergy Reactions Criticality Noted Date Comments Acetaminophen 04/12/2013 Amoxicillin 05/10/2012 Chlorothiazide 05/10/2012 Ciprofloxacin 05/10/2012 Codeine 05/10/2012 Diphenhydramine 05/10/2012 Fosinopril Other reaction(s): elevated potassium Morphine Palpitations Low 04/12/2013 Nitrofurantoin 05/10/2012 Oxycodone 04/12/2013 Oxycodone-Acetaminophen 02/07/2024 Prednisone Anxiety High 06/13/2022 Sulfa Antibiotics 05/10/2012 Vancomycin 05/10/2012 Medications Lancets mis Active Ozempic, 0.25 or 0.5 MG/DOSE, 2 MG/3ML solution pen-injector INJECT 0.25 MG SUBCUTANEOUSLY ONCE PER WEEK FOR 28 DAYS 12/30/19 23 Active OneTouch Verio test strip USE DIRECTED 01/20/20 23 Active ezetimibe (Zetia) 10 MG tablet Take 10 mg by mouth in the morning. 01/20/20 23 Active docusate sodium (Colace) 100 MG capsule TAKE 2 CAPSULES BY MOUTH EVERY DAY AT BEDTIME 01/20/20 23 Active Vitamin D High Potency 25 MCG (1000 UT) capsule Take 25 mcg by mouth in the morning. 01/20/20 23 Active Calcium Citrate-Vitamin D (Cochran Calcium/Vitamin D) 200-6.25 MG-MCG tablet TAKE 2 TABLETS BY MOUTH TWICE DAILY IN THE MORNING AND EVENING 01/20/20 23 Active clopidogrel (Plavix) 75 MG tablet TAKE 1 TABLET BY MOUTH EVERY EVENING 90 tablet 3 08/03/19 24 Active Pentips 32G X 4 MM miscIndications:Ty pe 2 diabetes mellitus without complication, with long-term current use of insulin (CMS/[facility]) USE DIRECTED FOUR TIMES DAILY 100 each 6 11/24/19 24 Active metoprolol tartrate (Lopressor) 50 MG tablet TAKE 1 TABLET BY MOUTH TWICE DAILY IN THE MORNING AND IN THE EVENING WITH FOOD 180 tablet 1 11/28/19 24 Active Alcohol Swabs (Alcohol Prep) 70 % pads USE DIRECTED 100 each 11 12/26/19 24 Active amLODIPine (Norvasc) 5 MG tablet TAKE 1 TABLET BY MOUTH EVERY EVENING 30 tablet 5 01/02/20 24 Active loratadine (Claritin) 10 MG tabletIndications: Seasonal allergies TAKE 1 TABLET BY MOUTH EVERY MORNING 30 tablet 5 01/02/20 24 Active polycarbophil (Fiber-Lax) 625 MG tablet Take 1,250 mg by mouth. 07/11/19 24 Active pioglitazone (Actos) 30 MG tablet Take 30 mg by mouth in the morning. 01/04/20 24 Active senna (Senokot) 8.6 MG tablet Take 1 tablet by mouth if needed at bedtime. 01/04/20 24 Active sodium zirconium cyclosilicate (Lokelma) 5 g packet MIX 1 PACKET WITH WATER AND DRINK TWICE A WEEK DIRECTED 06/20/19 Active predniSONE (Deltasone) 20 MG tablet Take 40 mg by mouth at bedtime. 07/03/19 24 Active polyethylene glycol, PEG, 3350 (Glycolax) 17 GM/SCOOP powder TAKE 17 GM MIXED IN 8 OUNCES OF WATER, COFFEE OR TEA ONCE DAILY TAKE AT BEDTIME 09/04/19 24 Active ketorolac (Acular) 0.5 % ophthalmic solution INSTILL 1 DROP TO AFFECTED EYE(S) TWICE DAILY START 2 DAYS BEFORE SURGERY 01/08/20 24 Active Continuous Glucose Sensor (FreeStyle Collin 3 Sensor) misc USE DIRECTED. CHANGE EVERY 14 DAYS 01/04/20 24 Active Continuous Glucose Project Safety Manager (FreeStyle Collin 3 [place]) device USE DIRECTED 09/11/19 24 Active bisacodyl (Dulcolax) 10 MG suppository INSERT 1 SUPPOSITORY RECTALLY ONCE DAILY NEEDED FOR CONSTIPATION 03/21/19 24 Active atorvastatin (Lipitor) 80 MG tabletIndications: Mixed hyperlipidemia TAKE 1 TABLET BY MOUTH AT BEDTIME 30 tablet 5 02/27/20 24 Active Albuterol Sulfate 108 (90 Base) MCG/ACT aerosol powderIndications: Mild intermittent asthma without complication Inhale 2 puffs by mouth every 4 to 6 hours as needed 8.5 each 3 02/29/20 24 Active albuterol (2.5 MG/3ML) 0.083% nebulizer solutionIndication s:Mild intermittent asthma without complication Take 3 mL by nebulization if needed in the morning, at noon, in the evening, and at bedtime (use 4-6 times a day as needed). 90 mL 3 02/29/20 24 Active insulin glargine (Lantus SoloStar) 100 UNIT/ML penIndications:Typ e 2 diabetes mellitus without complication, with long-term current use of insulin (CMS/HCC) INJECT 35 UNITS SUBCUTANEOUSLY ONCE DAILY 15 mL 2 03/12/20 24 Active HumaLOG KWIKPEN 100 UNIT/ML injectionIndicatio ns:Type 2 diabetes mellitus without complication, with long-term current use of insulin (CMS/HCC) INJECT 6 TO 16 UNITS SUBCUTANEOUSLY DIRECTED PER SLIDING SCALE BLOOD SUGAR 150-200 = 6 UNITS, 201-250 = 10U, 251-300 = 12U, 301-350 = 14U, > 351 = 16U 15 mL 3 03/19/19 25 Active Ferrous Sulfate (iron) 325 (65 Fe) MG tabletIndications: Chronic anemia TAKE 1 TABLET BY MOUTH THREE TIMES DAILY IN THE MORNING, AT NOON, AND IN THE EVENING 90 tablet 1 03/21/19 25 Active nystatin (Mycostatin) 886416 UNIT/GM powderIndications: Tinea corporis Apply topically 2 times daily. 30 g 3 03/21/19 25 026 Active Active Problems Problem Noted Date Diagnosed Date Cough in adult patient 03/26/2024 Tinea corporis 03/21/2024 Assessment & Plan (03/21/2024 9:28 AM EST): Erythematous pruritic rash underneath her breast x 2 weeks Plan: keep area dry at all times, Nystatin powder Acute cough 03/21/2024 Assessment & Plan (03/21/2024 9:39 AM EST): Patient with mild cough, worse at night, non productive, lungs CTA B Rapid Covid and Flu: neg Plan: supportive measures , Guaifenesin PRN ER precautions discussed Follow up if worsening or no improvement Diverticulosis of colon 02/07/2024 GERD (gastroesophageal reflux disease) Goiter 02/07/2024 Hemorrhoids 02/07/2024 Hypercalcemia 02/07/2024 Hyperparathyroidism 02/07/2024 Non-rheumatic aortic stenosis 02/07/2024 Osteoporosis 02/07/2024 Poor historian 02/07/2024 Tubular adenoma 02/07/2024 Vitamin D deficiency 02/07/2024 Pre-op exam 02/07/2024 Sore throat 01/31/2023 Assessment & Plan (01/31/2023 3:40 PM EST): Likely viral pharyngitis, neg strep, neg covid, neg flu. Nothing to suggest [place] infection Prescribed conservative measures and chloraseptic lozenges for symptomatic relief, asked to come back if symptoms do not improve or worsen Chronic constipation 01/31/2023 Assessment & Plan (01/30/2024 10:42 AM EST): Pt with chronic constipation that is not responding to high dose stool softners, laxatives and dietary modification Under the care of Gastroenterology, last seen 06/2023 Last colonoscopy 07/2022 showed tubular adenomas Assessment & Plan (01/31/2023 3:48 PM EST): Pt with chronic constipation that is not responding to high dose stool softners, laxatives and dietary modification Will refer to Gastroenterology for further evaluation Last colonoscopy 07/2022 showed tubular adenomas Preventative health care 06/21/2022 Assessment & Plan (03/21/2024 9:20 AM EST): Routine physical exam today: within normal limits Mammogram: NL : 02/22/2023 Pap Smear: 06/27/2023: Normal In 11/24/2016 ASCUS with positive HPV. Pt underwent Colpo with biopsies & ECC per [facility] notes from 04/2017 Colonoscopy: 07/2022 Tubular adenoma repeat 3 years Vaccines: Flu shot: tdap: 05/31/2013 Dexa scan:. 04/28/2015 showed osteopenia Assessment & Plan (01/30/2024 11:02 AM EST): Routine physical exam today: within normal limits Mammogram: NL : 02/22/2023 Pap Smear: 06/27/2023: Normal In 11/24/2016 ASCUS with positive HPV. Pt underwent Colpo with biopsies & ECC per [facility] notes from 04/2017 Colonoscopy: 07/2022 Tubular adenoma repeat 3-5 years Vaccines: Flu shot: tdap: 05/31/2013 Dexa scan:. 04/28/2015 showed osteopenia Assessment & Plan (01/19/2023 1:43 PM EST): Mammogram: NL : 01/29/2021 Pap Smear: 11/24/2016 ASCUS with positive HPV. Pt underwent Colpo with biopsies & ECC per [facility] [employer] notes from 04/2017 she was supposed to have a repeat with co test 04/2018 and if both neg then would f/u in 3 years records requested Colonoscopy: 07/2022 Tubular adenoma repeat 3-5 years Vaccines: Flu shot: tdap: 05/31/2013 Dexa scan:. 04/28/2015 showed osteopenia History of CVA (cerebrovascular accident) 2021 Assessment & Plan (01/19/2023 1:44 PM EST): Hx of this Pt was admitted to [facility] from 10:12/31-12/22/2020 Patient presented to ED with 2 weeks of intermittent left arm paresthesias, associated with headache and dizziness. Patient did not have focal neurologic deficits on exam. At admission patient had only residual minor sensory loss of the fingertips on the left hand. No motor deficit. MRI showed a thalamic/ capsular stroke on the right. Echo was negative. Labs were significant for SCr 1.7 mg/dL and potassium 5.4 mEq/L on 12.22.20. Recommendations were patient to be treated with dual antiplatelet therapy for 21 days followed by continuation of clopidogrel and d/c of aspirin ( Aspirin to be discontinue in January 11, per d/c docs). Sshe still has some residual numbness on her left hand. Patient was d/c with a 30-day event monitor and had a f/u with Cardiology ( Dr Dhaliwal) 01/26/2021 She was seen by Neurology 02/08/2021 he did not address her recent CVA on his note other than on the Chief complaint for the visit Asthma exacerbation 07/08/2020 Hyperkalemia 07/08/2020 Type 2 diabetes mellitus wit h stage 3a chronic kidney disease 01/31/2017 Assessment & Plan (03/21/2024 9:40 AM EST): Pt here for follow up in terms of her Diabetes Under the care of endocrinology, last seen 01/24/2024 She is on a regimen of: Lantus 38 units sc q pm, Humalog Kwik pen and Ozempic 02 mg q week She is off Actos due to interaction with medications and off Victoza Pt off Metformin due to CKD. Hgb A1c 03/21/2024 : 8.4 Eye exam was last done 10/11/2019 at our eye care program Microalbumin checked on:06/21/2023 was: 216 Pt not on an ROMI inhibitor due to Hx of hyperkalemia associated with ROMI inhibitors. Plan: continue to follow with Endocrinology. Foot check risk of zero Pt reports compliance with Plavix 4 months f/u with me Pt advised to: adhere to diabetic diet check your blood sugars regularly check your feet on a daily basis Assessment & Plan (01/30/2024 10:44 AM EST): Pt here for follow up in terms of her Diabetes Under the care of endocrinology, last seen 01/2024 She is on a regimen of: Lantus 38 units sc q pm, Humalog Kwik pen and Ozempic 02 mg q week She is off Actos due to interaction with medications and off Victoza Pt off Metformin due to CKD. Hgb A1c 01/30/2024 : 8.2 Eye exam was last done 10/11/2019 at our eye care program Microalbumin checked on:06/21/2023 was: 216 Pt not on an ROMI inhibitor due to Hx of hyperkalemia associated with ROMI inhibitors. Plan: continue to follow with Endocrinology. Foot check risk of zero Pt reports compliance with Plavix 4 months f/u with me Pt advised to: adhere to diabetic diet check your blood sugars regularly check your feet on a daily basis Assessment & Plan (01/31/2023 11:36 AM EST): Pt here for follow up in terms of her Diabetes She is on a regimen of: Lantus 34 units sc q pm, Humalog Kwik pen and Ozempic 02 mg q week She is off Actos due to interaction with medications and off Victoza Pt off Metformin due to CKD. Hgb A1c 01/19/2023: 8.2 Eye exam was last done 10/11/2019 at our eye care program Microalbumin checked on:01/11/2021 0 was: 8.6 Pt not on an ROMI inhibitor due to Hx of hyperkalemia associated with ROMI inhibitors. Plan: continue to follow with Endocrinology, Dr. Phan I stressed the need to adhere to a diabetic diet Foot check risk of zero Pt reports compliance with Plavix 4 months f/u with me Pt advised to: adhere to diabetic diet check your blood sugars regularly check your feet on a daily basis Assessment & Plan (01/19/2023 1:45 PM EST): Pt here for follow up in terms of her Diabetes She is on a regimen of: Lantus 34 units sc q pm and Humalog Kwik pen and Trulicity 1.5 q week She is off Actos due to interaction with medications and off Victoza Pt off Metformin due to CKD. Hgb A1c 01/19/2023: 8.2 Eye exam was last done 10/11/2019 at our eye care program Microalbumin checked on:01/11/2021 0 was: 8.6 Pt not on an ROMI inhibitor due to Hx of hyperkalemia associated with ROMI inhibitors. Plan: continue to follow with Endocrinology, last seen 10/06/2021 I stressed the need to adhere to a diabetic diet Foot check risk of zero Pt reports compliance with Plavix 4 months f/u with me Pt advised to: adhere to diabetic diet check your blood sugars regularly check your feet on a daily basis Mild persistent asthma 10/20/2016 Assessment & Plan (01/31/2023 11:27 AM EST): Seen at [facility] 01/28/2023 with an asthma exacerbation Doing better now CKD stage 3 secondary to diabetes 11/26/2015 Assessment & Plan (01/30/2024 10:42 AM EST): Under the care of Nephrology, Avoid nephrotoxic agents, On Lokelma and lasix Assessment & Plan (01/19/2023 1:43 PM EST): Under the care of Nephrology, Avoid nephrotoxic agents, On Lokelma and lasix Cobalamin deficiency 05/31/2013 Chronic anemia 11/24/2011 Assessment & Plan (01/19/2023 1:36 PM EST): Used to be under the care of Dr Muna Buenrostro (hematology). Her assessment was that pt had B12 deficiency anemia, Repeat CBC 08/19/2021 showed Hgb 11.4 Will repeat Hyperlipidemia 11/24/2011 Assessment & Plan (01/31/2023 11:25 AM EST): Patient with elevated lipids. Most recent lipid profile from: 01/19/2023 showed: Component Ref Range & Units 12 d ago 7 mo ago 2 yr ago Triglycerides <150 mg/dL 178??High?? 178 R, CM 200??High?? CM Comment: Desirable Triglyceride: ? less than 150 mg/dLBorderline High Triglyceride ??150-199 mg/dLHigh Triglyceride: ?200-499 mg/dLVery High Triglyceride: ? greater than or equal to ?5OO mg/dL Cholesterol <200 mg/dL 152 147 R, CM Comment: Desirable Cholesterol: ?less than 200 mg/dLBorderline High Cholesterol: ??200-239 mg/dLHigh Cholesterol: ? greater than 239 mg/dL LDL Cholesterol Calculated <100 mg/dL 71 68 R, CM Comment: Desirable LDL: ? less than 100 mg/dLNear Optimal/Above Optimal LDL: ??110-129 mg/dLBorderline High LDL: ? 130-159 mg/dLHigh LDL: ?160-189 mg/dLVery High LDL: ? greater than or equal to ? 190 mg/dL HDL Cholesterol >40 mg/dL 46 44 R, CM 46??Low?? R Currently on a regimen of: Lipitor 80 mg po daily. For now will continue with current regimen. advised to try to adhere to a low cholesterol diet, counseled and educated about diet and exercise, Patient encouraged to come up with a personal goal for weight loss. Assessment & Plan (01/19/2023 1:37 PM EST): Patient with elevated lipids. Most recent lipid profile from: 08/25/2021 shows a total cholesterol of: 191 triglycerides of: 211 HDL of: 47 and LDL of: 102 Currently on a regimen of: Lipitor 80 mg po daily. For now will continue with current regimen. advised to try to adhere to a low cholesterol diet, counseled and educated about diet and exercise, Patient encouraged to come up with a personal goal for weight loss. Repeat Lipid profile Hypertension 11/24/2011 Assessment & Plan (03/21/2024 9:27 AM EST): Patient with Hypertension currently controlled on a regimen of: Metoprolol 50 mg. BID and Amlodipine 5 mg po daily Unable to tolerate ACEs due to hyperkalemia Most recent electrolytes, Bun and Creatinine done on: Lab Results Component Value Date NA 141 02/05/2024 NA 142 01/19/2023 K 4.7 02/05/2024 K 5.0 01/19/2023 CL 105 02/05/2024 CL 103 01/19/2023 BUN 33 (H) 02/05/2024 BUN 31 (H) 01/19/2023 CREATININE 1.62 (H) 02/05/2024 CREATININE 1.59 (H) 01/19/2023 Plan: Continue current regimen Pt followed by Nephrology, although she has not been seen in a while, will schedule a follow up patient advised to adhere to a low sodium diet, encouraged about medication compliance, counseled about weight loss 4 month f/u Assessment & Plan (01/30/2024 11:03 AM EST): Patient with Hypertension currently controlled on a regimen of: Metoprolol 50 mg. BID and Amlodipine 5 mg po daily Unable to tolerate ACEs due to hyperkalemia Most recent electrolytes, Bun and Creatinine done on: Lab Results Component Value Date NA 142 01/19/2023 NA 144 11/07/2022 K 5.0 01/19/2023 K 4.9 11/07/2022 CL 103 01/19/2023 CL 108 11/07/2022 BUN 31 (H) 01/19/2023 BUN 34 (H) 11/07/2022 CREATININE 1.59 (H) 01/19/2023 CREATININE 1.43 (H) 11/07/2022 Pt followed by Nephrology patient advised to adhere to a low sodium diet, encouraged about medication compliance, counseled about weight loss 4 month f/u Assessment & Plan (01/19/2023 1:39 PM EST): Patient with Hypertension currently controlled on a regimen of: Metoprolol 50 mg. BIDFurosemide 20 mg po daily and Amlodipine 5 mg po daily Unable to tolerate ACEs due to hyperkalemia Most recent electrolytes, Bun and Creatinine done on: 11/07/2022 showed Cr up to 1.43. Pt followed by Nephrology patient advised to adhere to a low sodium diet, encouraged about medication compliance, counseled about weight loss 4 month f/u Severe obesity 11/24/2011 Assessment & Plan (03/21/2024 9:15 AM EST): Patient has been counseled and educated about diet and exercise. Personal goal of weight loss discussedPatient has comorbidity of: DM Dietary Recommendations: Fruits, vegetables, whole grains, protein foods, and fat-free or low-fat dairy products are healthy choices. Eat different types of protein foods in your diet. This can include seafood, lean meats, poultry, beans, peas, lentils, nuts, seeds, soy products, and eggs. Limit foods and beverages higher in added sugars, saturated fat, and sodium. Exercise Recommendations: At least 150 minutes of moderate-intensity physical activity per week, or an equivalent combination of moderate- and vigorous-intensity activity Assessment & Plan (01/30/2024 10:45 AM EST): Patient has been counseled and educated about diet and exercise. Personal goal of weight loss discussedPatient has comorbidity of: DM Obstructive sleep apnea syndrome 11/24/2011 Assessment & Plan (01/19/2023 1:38 PM EST): Pt unfortunately was unable to tolerate Cpap machine she was seen by ENT specialist Dr Ambriz who diagnosed her with septal deviation, at some point he had entertained the idea of surgical intervention. Pt did not f/u with him. Pt was referred to Dr Burgess Coronary artery disease 03/13/2005 Overview (02/07/2024): s/p myocardial infarction as well as stent placement 2005 Assessment & Plan (03/21/2024 9:13 AM EST): Pt is here for a f/u Known Hx of CAD s/p cardiac cath 02/21/2006 E.F 60 % [address] Melchor Weber put a ESTEPHANIE. she was under the care of Dr Dhaliwal, last seen on: 03/25/2015 His impression was that pt had CAD with 3 vessel disease and negative nuclear stress test at [facility] . Due to her recent CVA she is now back on Plavix, she is now being followed by Dr Singh last seen 07/2022 Assessment & Plan (01/19/2023 1:40 PM EST): Pt is here for a f/u Known Hx of CAD s/p cardiac cath 02/21/2006 E.F 60 % [address] Melchor Weber put a ESTEPHANIE. she is was under the care of Dr Dhaliwal, last seen on: 03/25/2015 His impression was that pt had CAD with 3 vessel disease and negative nuclear stress test at [facility] . Due to her recent CVA she is now back on Plavix, she is now being followed by Dr Singh last seen 07/2022 Encounters Date Type Department Care Team Description 03/26/2024 1:40 PM EST Office Visit [facility] [address] [place] [address] Sarah Mehta MD Acute URI (Primary Dx); Cough in adult patient 03/21/2024 9:15 AM EST Office Visit [facility] [address] [place] [address] James Flores MD Acute cough (Primary Dx); Primary hypertension; Coronary artery disease involving [place] coronary artery of [place] heart without angina pectoris; Type 2 diabetes mellitus with stage 3a chronic kidney disease, with long-term current use of insulin (CMS/[facility]); Severe obesity (CMS/[facility]); Tinea corporis; Preventative health care 03/21/2024 Travel 03/21/2024 Refill [facility] [address] [place] [address] James Flores MD Chronic anemia 03/19/2024 Refill [facility] [address] [place] [address] James Flores MD Type 2 diabetes mellitus without complication, with long-term current use of insulin (CMS/HCC) 03/18/2024 Telephone [facility] [address] [place] [address] James Flores MD Nurse Triage 03/10/2024 Refill [facility] [address] [place], [place] [phone] Ruchi Nolan MD Type 2 diabetes mellitus without complication, with long-term current use of insulin (CMS/HCC) 03/04/2024 Telephone [facility] [address] [place] [id number] Coco Montiel NP 02/29/2024 3:20 PM EST Office Visit [facility] [address] [place] [address] [id number] Coco Montiel NP Cough in adult patient (Primary Dx); Mild intermittent asthma without complication; Heart murmur, systolic; Elevated blood pressure reading in office with diagnosis of hypertension 02/29/2024 Telephone [facility] [address] [place] [address] James Flores MD Nurse Triage 02/23/2024 Refill [facility] [address] [place], [place] [phone] James Flores MD Mixed hyperlipidemia 02/12/2024 Telephone [facility] [address] [place] [address] Meghan Bailey, LISA 02/07/2024 10:30 AM EST Office Visit [facility] [address] [place] [address] Jaye Montana NP Type 2 diabetes mellitus with stage 3a chronic kidney disease, with long-term current use of insulin ([facility]) (Primary Dx); Mixed hyperlipidemia; Primary hypertension; Obstructive sleep apnea syndrome; Mild persistent asthma with acute exacerbation; Pre-op exam 02/02/2024 Telephone [facility] [address] [place] [address] James Flores MD DME Orthotics & Prosthetics 01/30/2024 10:30 AM EST Office Visit [facility] [address] [place] [address] James Flores MD Primary hypertension (Primary Dx); Type 2 diabetes mellitus with stage 3a chronic kidney disease, with long-term current use of insulin ([facility]); Chronic constipation; CKD stage 3 secondary to diabetes ([facility]); Class 2 severe obesity due to excess calories with serious comorbidity and body mass index (BMI) of 36.0 to 36.9 in adult ([facility]); Preventative health care; Chronic anemia; Encounter for immunization 01/30/2024 Travel from Last 3 Months Immunizations Name Administration Dates Next Due Influenza Injectable Quadriv alant Preservative Free IIV4 MDCK 01/13/2021 Influenza Quadrivalent Adjuvanted 11/23/2022, Influenza injectable quadriv alent IIV4 with preservative 12/19/2017,12/01/2016,12/08/2014 Influenza injectable quadriv alent preservative free 12/04/2019 Influenza, High Dose Seasona l, Preservative Free 01/30/2024 Influenza, IIV3, injectable 11/23/2022,0 12/09/2021,01/13/2021,2019,12/19/2017,12/01/2016,12/08/2014,1 ,03/15/2012,01/12/2011 Influenza, Split (incl. christina fied surface antigen) 12/07/2012 Influenza, seasonal, injecta ble, preservative free 12/25/2017,03/15/2012 Influenza, trivalent, adjuvanted 03/15/2012 Moderna Covid-19 Vaccine 12+ 08/31/2020,08/02/19 21 TD (adult), 2 Lf tetanus tox oid, preservative free, adsorbed 11/27/2002 Td (adult), unspecified 11/27/2002 Tdap 05/31/2013 Zoster, Recombinant 07/20/2021 Zoster, live 10/20/2015 Social History Tobacco Use Types Packs/Day Years Used Date Smoking Tobacco: Never Passive Smoke Exposure: Never Smokeless Tobacco: Never Tobacco Cessation:Counseling Given: Not Answered Depression Answer Date Recorded Patient Health Questionnaire-9 [...] Orientation Straight 01/10/2022 10 :14 AM EDT Last Filed Vital Signs Vital Sign Reading Time Taken Comments Blood Pressure 157/87 03/26/2024 1:34 PM EST Pulse 76 03/26/2024 1:34 PM EST Temperature 36.7 ??C (98 ??F) 03/26/2024 1:34 PM EST Respiratory Rate 16 03/26/2024 1:34 PM EST Oxygen Saturation 97% 03/26/2024 1:34 PM EST Inhaled Oxygen Concentration - - Weight 80.3 kg (177 lb) 03/26/2024 1:34 PM EST Height 147.8 cm (4' 10.19 ) 02/07/2024 10:26 AM EST Body Mass Index 36.75 02/07/2024 10:26 AM EST Plan of Treatment Upcoming Encounters Date Type Department Care Team (Late st Contact Info) Description 05/30/2024 9:15 AM EDT [facility] Visit [facility] [facility] [address] [place] [address] James Flores MD [address] [place] [address] Health Maintenance Due Date Last Done Comments CT Colonography 1955 FIT DNA/Cologuard 1955 FIT 1955 FOBT 1955 Sigmoidoscopy 1955 Eye Exam 05/18/1965 Hepatitis C Screening 05/18/1973 Pneumococcal Vaccine: 50+ Years (1 of 2 - PCV) 05/18/1974 RSV Patients and Patients Aged 60 years or older (1 - Risk 60-74 years 1-dose series) 2015 Zoster Vaccines (3 of 3) 09/14/2021 07/20/2021, 11/2015 DTaP/Tdap/Td Vaccines (2 - Td or Tdap) 06/01/2023 05/31/2013, 11/27/2002, 11/27/2002 COVID-19 Vaccine (3 - season) 2023 08/31/2020, 08/01/2020 SDOH Screening 05/29/2024 05/30/2023 Diabetes: Hemoglobin A1C 06/19/2024 025, 01/30/2024, 01/19/2023, Additional history exists Alcohol/Substance Use Screening 01/29/2025 01/30/2024 Depression Screening 01/29/2025 01/30/2024, 01/30/20 24 Tobacco Screening 01/29/2025 01/30/2024 Lipid Panel 02/04/2025 02/05/2024, 11/2022, 06/09/2022, Additional history exists Diabetes: Foot Exam 02/06/2025 02/07/2024, 02/07/2024, 02/07/2024, Additional history exists Mammogram 02/22/2025 02/22/2023, 01/11, 01/29/2021, Additional history exists Colonoscopy 07/11/2025 07/11/2022 Colorectal Cancer Screening 07/11/2025 HPV/Cotest 01/17/2027 01/17/2022, 09/2021, 11/24/2016 Pap Smear 06/21/2028 06/22/2023, 01/17/2022 Influenza Vaccine Completed 01/30/2024, , 11/23/2022, Additional history exists HIB Vaccines Aged Out No longer eligi ble based on patient's age to complete this topic HPV Vaccines Aged Out No longer eligi ble based on patient's age to complete this topic Hepatitis A Vaccines Aged Out No long er eligible based on patient's age to complete this topic Hepatitis B Vaccines Aged Out No long er eligible based on patient's age to complete this topic IPV Vaccines Aged Out No longer eligi ble based on patient's age to complete this topic Meningococcal Vaccine Aged Out No nneka dori eligible based on patient's age to complete this topic RSV under 20 months Aged Out No longe r eligible based on patient's age to complete this topic Rotavirus Vaccines Aged Out No longer eligible based on patient's age to complete this topic Procedures Procedure Name Priority Date/Time Associated Diagnosis Comments POCT INFLUENZA B (ID NOW RAPID MOLECULAR) Routine 03/26/2024 1:48 PM EST Cough in adult patient POCT INFLUENZA A (ID NOW RAPID MOLECULAR) Routine 03/26/2024 1:47 PM EST Cough in adult patient POCT RAPID COVID ANTIGEN Routine 03/26/2024 1:39 PM EST Cough in adult patient POCT INFLUENZA B (ID NOW RAPID MOLECULAR) Routine 03/21/2024 10:00 AM EST Acute cough POCT INFLUENZA A (ID NOW RAPID MOLECULAR) Routine 03/21/2024 10:00 AM EST Acute cough POCT RAPID COVID ANTIGEN Routine 03/21/2024 10:00 AM EST Acute cough POCT GLYCATED HEMOGLOBIN, TOTAL Routine 03/21/2024 9:51 AM EST Type 2 diabetes mellitus with stage 3a chronic kidney disease, with long-term current use of insulin ([facility]) POCT GLUCOSE Routine 03/21/2024 9:50 AM EST Type 2 diabetes mellitus with stage 3a chronic kidney disease, with long-term current use of insulin ([facility]) POCT INFLUENZA B (ID NOW RAPID MOLECULAR) Routine 02/29/2024 3:30 PM EST Cough in adult patient POCT INFLUENZA A (ID NOW RAPID MOLECULAR) Routine 02/29/2024 3:30 PM EST Cough in adult patient POCT RAPID COVID ANTIGEN Routine 02/29/2024 3:06 PM EST Cough in adult patient POCT GLUCOSE Routine 02/07/2024 10:38 AM EST Type 2 diabetes mellitus with stage 3a chronic kidney disease, with long-term current use of insulin ([facility]) CBC WITH AUTO DIFFERENTIAL Routine 02/05/2024 7:55 AM EST Chronic anemia LIPID PANEL, STANDARD Routine 02/05/2024 7:55 AM EST Type 2 diabetes mellitus with stage 3a chronic kidney disease, with long-term current use of insulin ([facility]) COMPREHENSIVE METABOLIC PANEL Routine 02/05/2024 7:55 AM EST Type 2 diabetes mellitus with stage 3a chronic kidney disease, with long-term current use of insulin ([facility]) POCT GLYCATED HEMOGLOBIN, TOTAL Routine 01/30/2024 10:41 AM EST Type 2 diabetes mellitus with stage 3a chronic kidney disease, with long-term current use of insulin ([facility]) POCT GLUCOSE Routine 01/30/2024 10:37 AM EST Type 2 diabetes mellitus with stage 3a chronic kidney disease, with long-term current use of insulin ([facility]) PAP SMEAR Routine 06/22/2023 3:20 PM EDT BI MAMMOGRAM SCREENING TOMOSYNTHESIS BILATERAL Routine 02/22/2023 8:20 AM EST HM COLONOSCOPY Routine 07/11/2022 3:53 PM EDT ZZZ HISTORICAL HPV E6/E7 RFLX DANIAL 16 18/45 Routine 01/17/2022 4:22 PM EST from Last 3 Months or Most Recently Relevant to Health Maintenance Results * Influenza B (ID NOW Rapid Molecular) (03/26/2024 1:48 PM EST) Only the most recent of3 resultswithin the time period is included. Influenza B Negative Negative, Indeterminate [facility] Swab 03/26/2024 1:48 PM EST Sarah Mehta MD POINT OF CARE TEST ENTER/E DIT ORDERABLES Final Result Performing Organization Address City/[facility]/ZIP Co de Phone Number [facility] [address] [place] [phone] * Influenza A (ID NOW Rapid Molecular) (03/26/2024 1:47 PM EST) Only the most recent of3 resultswithin the time period is included. Influenza A Negative Negative, Indeterminate [facility] Swab 03/26/2024 1:47 PM EST Sarah Mehta MD POINT OF CARE TEST ENTER/E DIT ORDERABLES Final Result Performing Organization Address [facility]/ZIP Co de Phone Number [facility] [address] [place] [phone] * POCT Rapid COVID Ag (03/26/2024 1:39 PM EST) Only the most recent of3 resultswithin the time period is included. Rapid COVID Ag Negative Swab 03/26/2024 1:39 PM EST Result [facility] Sarah Mehta MD POINT OF CARE TEST ENTER/E DIT ORDERABLES Final Result * (ABNORMAL) POCT HGB A1C (03/21/2024 9:51 AM EST) Only the most recent of2 resultswithin the time period is included. Hemoglobin A1C 8.4(A) 4.0 - 6.0 % QC Media Lot # [id number] Lot# Expiration Date Blood 03/21/2024 9:51 AM EST James Ashraf MD POINT OF CARE TEST EN TER/EDIT ORDERABLES Final Result * POCT Glucose (03/21/2024 9:50 AM EST) Only the most recent of3 resultswithin the time period is included. Pathologist [facility] Glucose Blood, POC 118 60 - 200 mg/dL QC Media Lot # [id number] Lot# Expiration Date [id number] Blood Capillary blood specimen / Unknown 03/21/2024 9:50 AM EST James Ashraf MD POINT OF CARE TEST EN TER/EDIT ORDERABLES Final Result * (ABNORMAL) CBC auto differential (02/05/2024 7:55 AM EST) [facility] White Blood Count 5.9 4.8 - 10.8 X10*3/uL [facility] Red Blood Count 3.59(L) 4.20 - 5.50 X10*6/uL [facility] Hemoglobin 11.1(L) 12.0 - 16.0 g/dl [facility] Hematocrit 34.4(L) 37.0 - 47.0 % [facility] Mean Corpuscular Volume 95.8 80.0 - 98.0 fL [facility] Mean Corpuscular Hemoglobin 30.9 27.0 - 33.0 pg [facility] Mean Corpuscular HGB Conc 32.3 31.0 - 35.0 g/dl [facility] Red Cell Distribution Width 13.1 11.0 - 16.0 % [facility] Platelet Count 220 160 - 400 X10*3/uL [facility] Mean Platelet Volume 11.1 9.4 - 12.3 fL [facility] Neutrophils Percent Auto 43.5(L) 45 - 73 % [facility] Imm Gran Pct Auto 0.3 0.0 - 0.4 % [facility] Lymphocytes Percent Auto 46.6(H) 20 - 40 % [facility] Monocytes Percent Auto 7.1 2 - 11 % [facility] Eosinophils Percent Auto 2.2 0 - 4 % [facility] Basophils Percent Auto 0.3 0 - 2 % [facility] NRBC Pct Auto 0.0 0.0 - 0.2 /100WBC [facility] Neutrophils Absolute Auto 2.6 2.0 - 8.3 x10*3/uL [facility] Imm Gran Abs Auto 0.02 0.00 - 0.03 X10*3/uL [facility] Lymphocytes Absolute Auto 2.7 1.2 - 4.9 X10*3/uL [facility] Monocytes Absolute Auto 0.4 0.1 - 1.2 X10*3/uL [facility] Eosinophils Absolute Auto 0.1 0.0 - 0.4 X10*3/uL [facility] Basophils Absolute Auto 0.0 0.0 - 0.2 X10*3/uL [facility] NRBC Abs Auto 0.000 0.0 - 0.012 X10*3/uL [facility] Blood Venous blood specimen / Unknown 02/05/2024 7:55 AM EST 02/05/2024 11:12 AM EST us James Ashraf MD LAB BLOOD ORDERABLES Final Result [facility] [address] [place] [phone] * Lipid Panel, Standard (02/05/2024 7:55 AM EST) Triglycerides 104 <150 mg/dL [facility] Comment:Desirable Triglyceri de: less than 150 mg/dLBorderline High Triglyceride 150-199 mg/dLHigh Triglyceride: 200-499 mg/dLVery High Triglyceride: greater than or equal to 5OO mg/dL Cholesterol 123 <200 mg/dL [facility] Comment:Desirable Cholestero l: less than 200 mg/dLBorderline High Cholesterol: 200-239 mg/dLHigh Cholesterol: greater than 239 mg/dL LDL Cholesterol Calculated 62 <100 mg/dL [facility] Comment:Desirable LDL: less than 100 mg/dLNear Optimal/Above Optimal LDL: 110- 129 mg/dLBorderline High LDL: 130-159 mg/dLHigh LDL: 160-189 mg/dLVery High LDL: greater than or equal to 190 mg/dL HDL Cholesterol 41 >40 mg/dL [facility] Comment:Desirable HDL: great er than 40 mg/dL Note: This HDL assay may give artificially low results in patients with liver disease. Blood Venous blood specimen / Unknown 02/05/2024 7:55 AM EST 02/05/2024 11:17 AM EST us James Ashraf MD LAB BLOOD ORDERABLES Final Result [facility] [address] [place], [place] [phone] * (ABNORMAL) Comprehensive Metabolic Panel (02/05/2024 7:55 AM EST) Sodium 141 135 - 145 mmol/L [facility] Potassium 4.7 3.3 - 5.1 mmol/L [facility] Chloride 105 96 - 108 mmol/L [facility] Carbon Dioxide 27 22 - 29 mmol/L [facility] Anion Gap 14 12 - 20 [facility] Urea Nitrogen (BUN) 33(H) 9 - 16 mg/dL [facility] Creatinine, Serum 1.62(H) 0.5 - 1.4 mg/dL [facility] Estimated Glomerular Filt Rate 32 [facility] Comment:Chronic Kidney Disea se: Estimated GFR < 60 mL/min/1.08n1Dpbsgv Kidney Disease: Estimated GFR < 15 mL/min/1.73m2 Glucose 93 60 - 115 mg/dL [facility] Calcium 10.2 8.4 - 10.2 mg/dL [facility] Bilirubin, Total 0.3 0.0 - 1.0 mg/dL [facility] Aspartate Amino Transferase 34(H) 5 - 31 U/L [facility] Alanine Aminotransferase 21 0 - 31 U/L [facility] Total Protein 6.7 6.5 - 8.0 g/dL [facility] Albumin Level 3.9 3.5 - 5.0 g/dL [facility] Alkaline Phosphatase 54 39 - 117 U/L [facility] Blood Venous blood specimen / Unknown 02/05/2024 7:55 AM EST 02/05/2024 11:17 AM EST us James Ashraf MD LAB BLOOD ORDERABLES Final Result Performing Organization Address City/State/[facility] Co de Phone Number [facility] [address] [place] [phone] * Pap Smear (06/22/2023 3:20 PM EDT) 06/22/2023 3:20 PM EDT 06/27/2023 11:15 AM EDT Narrative [facility] - 07/11/2023 2:16 PM EDT ----- ------- Name: Jayne Lane ?Age/Sex: 68/F ? : 1955 Unit#: [id number] ?? Attend Dr: Opal Carranza CNM ?Re06/22/23 ?Status: DEP REF ? Location: HO.LNP ?Disch: ? ----- ------- SPEC : [id number] ? RECD: 06/27/23-1115 ? STATUS: ??SOUT ? REQ NUM: [id number] ? CYRUS: 06/22/23-1520 ? SUBM DR: Opal Carranza CNM ? ENTERED: ??06/27/23-2 ?SP TYPE: Pap Smr ?OTHR DR: James Trimble MD ?? ORDERED: ??Pap Smear, PAP path review ? Interpretation ?? General Category: ? Negative for intraepithelial lesion/malignancy. ?? Adequacy: ? Endocervical component present. ?? Interpretation: ? Inflammation, atrophy and reactive cellular changes. ? HPV mRNA E6/E7: ?Not Detected ? This assay detects E6/E7 viral messenger RNA (mRNA) from 14 high-risk HPV types (16, 18, ?? 31, 33, 35, 39, 45, 51, 52, 56, 58, 59, 66, 68) ? HPV testing performed by [facility], [place], [place]. ??See reference laboratory ?? portion of the EMR for entire report. 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 Material Received ?? ThinPrep-Cervical Copies To: ?? James Trimble MD ?? [address] ?? [place] [address] ?? [phone] ?? Opal Carranza CNM ?? [address] [facility] ?? [place] [address] ?? [phone] ----- ------- Signed (signature on file) Ev Chatham 07/11/23 1416 ? ----- ------- ? END OF REPORT ? us Generic External Data Provider LAB CYTOLOGY RELL SALAZAR Final Result [facility] [address] [place] [phone] * BI Mammogram Screening Tomosynthesis Bilateral (02/22/2023 8:20 AM EST) Anatomical Region Laterality Modality Breast Bilateral Mammography 02/22/2023 8:20 AM EST Narrative 03/07/2023 9:08 PM EST ? [facility] ? [address] ?[place] [address] ? Mammography Report ? Signed ? Patient: Cappa,Jayne ?MR#: [id number] ? : 1955 ?Acct:[id number] ? Age/Sex: 67 / F ?ADM Date: 02/22/23 ? Loc: HO.MAMMO ? Attending Dr: James Trimble MD ? Ordering Physician: Loraine Yadav MD ?Results: 1Ne ?? gative ? Date of Service: 02/22/23 ?Follow Up: 1 Year From Orig ?? inal Mammogram ? Procedure(s): MM tomosynthesis screening BI ?? Accession Number(s): [id number] ? cc: James Trimble MD; Loraine Yadav MD ? EXAMINATION: ?? MM SCREENING DIGITAL BREAST TOMOSYNTHESIS, BILATERAL ? CLINICAL INFORMATION: ? Screening. Asymptomatic. ? COMPARISON: ?? Mammography: This study is compared with prior exams dating back to ?? 2018. ? TECHNIQUE: ?? Digital breast tomosynthesis is performed in both the craniocaudal and ?? mediolateral oblique views along with computer-aided detection (CAD). ?? Synthesized 2D images are generated from the tomosynthesis. ? FINDINGS: ?? There are scattered areas of fibroglandular density (ACR BI-RADS breast ?? composition Category b). ? There are no significant masses, abnormal calcifications, or other ?? abnormalities. ? MM/MM tomosynthesis screening BI ?? IMPRESSION: ?? No mammographic evidence of malignancy. ? ASSESSMENT: ? BI-RADS BI-RADS 1 - Negative ? RECOMMENDATION: ?? Routine annual mammography screening. ? 1 year F/U ? This examination should not preclude the clinical evaluation of a ?? suspicious palpable abnormality. ? This patient's information was entered into a reminder system with a ?? target due date for their next mammogram. ? Dictated By: ?Nakita Matthew MD ? Signed By: ?<Electronically signed by Nakita Matthew MD in OV> ? 03/07/232103 ? DD/ 0820 ? TD/TT: ? Cake Batter Mixer: ? Procedure Note Ofelia, Image - 03/07/2023 [facility] [address] [place] [address] Mammography Report Signed Patient: Jayne LaneMR#: [id number] : 6Acct:[id number] Age/Sex: 67 / FADM Date: 02/22/23 Loc: HO.MAMMO Attending Dr: James Trimble MD Ordering Physician: Loraine Yadav MDResults: 1Ne gative Date of Service: 02/22/23Follow Up: 1 Year From Orig inal Mammogram Procedure(s): MM tomosynthesis screening BI Accession Number(s): [id number] cc: James Trimble MD; Loraine Yadav MD EXAMINATION: MM SCREENING DIGITAL BREAST TOMOSYNTHESIS, BILATERAL CLINICAL INFORMATION: Screening. Asymptomatic. COMPARISON: Mammography: This study is compared with prior exams dating back to 2018. TECHNIQUE: Digital breast tomosynthesis is performed in both the craniocaudal and mediolateral oblique views along with computer-aided detection (CAD). Synthesized 2D images are generated from the tomosynthesis. FINDINGS: There are scattered areas of fibroglandular density (ACR BI-RADS breast composition Category b). There are no significant masses, abnormal calcifications, or other abnormalities. MM/MM tomosynthesis screening BI IMPRESSION: No mammographic evidence of malignancy. ASSESSMENT: BI-RADS BI-RADS 1 - Negative RECOMMENDATION: Routine annual mammography screening. 1 year F/U This examination should not preclude the clinical evaluation of a suspicious palpable abnormality. This patient's information was entered into a reminder system with a target due date for their next mammogram. Dictated By: Nakita Matthew MD Signed By: <Electronically signed by Nakita Matthew MD in OV> 03/07/232103 DD/ 9 TD/TT: Cake Batter Mixer: [facility] External Provider IMG BI PROCEDURES Final Result * Colonoscopy (07/11/2022 3:53 PM EDT) Colonoscopy Normal Normal Comment:Tubular adenoma Historical Provider HEALTH MAINTENANCE Final Result * HPV E6/E7 RFLX DANIAL 16 18/45 (01/17/2022 4:22 PM EST) HPV 16 RNA TNP CONVERTED [facility] HPV 18/45 RNA TNP CONVER [email or web address] HPV E6 E7 ADD TNP [facility]VER [email or web address] HPV mRNA E6/E7 rflx Not Detected Not Detected CONVERTED [facility] Comment: Methodology: Cafe Team Member-Mediated Amplification This assay detects E6/E7 viral messenger RNA (mRNA) from 14 high-risk HPV types (16,18,31,33,35,39,45,51,52,56,58,59,66,68). Cervical sources are required for HPV testing. If a vaginal source from a patient who has had a total hysterectomy with removal of cervix was submitted, please contact the testing laboratory for alternative testing options. For additional information, please refer to http://education.Musicane/faq/ZDP463j4 (This link if provided for information/ educational purposes only.) THIS TEST WAS PERFORMED AT: [facility] [address] [place] [address],[address] [place], [place] ??[phone] KEVEN CHAND MD 01/17/2022 4:22 PM EST Opal Carranza HISTORICAL/NON ORDERABLE LABS Fi nal Result [facility] from Last 3 Months or Most Recently Relevant to Health Maintenance Insurance [facility] Care Teams Manager Nuclear Relationship Specialty Start Date End Date James Flores MD [address] [place] [phone] PCP - General Internal Medicine 02/04/14
--- OUTSIDE RECORDS SUMMARY | 2024-05-01 09:12 | XMS_ITS | Patient Health Record ---
Author Organization [facility] Address [address] [place] [address] Care Team Providers Care Tooth Cutter Spur Name Role Phone Rudy Ashraf MD, Jamse Primary Care Provide r Unavailable Moris Duron Jr Unavailable REASON FOR REFERRAL No Information SOCIAL HISTORY Sex Assigned At : Social History Observation Description Sex Assigned At Unknown PLAN OF TREATMENT No Information Insurance Providers Payer Name Payer Address Payer Phone Subscriber Number Group Number Insured Name Patient Relationship to Insured Coverage Start Date Coverage End Date MED[place]ARE OF [place] [address] [place] [address] [phone] [id number] STEPHANI JOE Self - patient is the insured [facility] OF [facility] [address] [place] [address] [id number] STEPHANI JOE Self - patient is the insured
--- OUTSIDE RECORDS SUMMARY | 2024-05-01 09:12 | XMS_ITS | Encounter Summary ---
Author Organization [employer] Address [address] [facility] [address] [place] [address] Care Team Providers Care Publication Manager Name Role Phone James Flores MD Primary Care Provide r Reason for Visit * Reason Onset Date Comments Pre op 01/11/2024 Encounter Details Date Type Department Care Team ([facility] st Contact Info) Description 01/11/2024 Telephone [facility] [address] [place], [place] [phone] James Flores MD [address] [place], [place] [phone] Pre op Social History Tobacco Use Types Packs/Day Years [...] encounter Miscellaneous Notes * Telephone Encounter - Ping Brady - 01/11/2024 10:17 AM EDT Date of Surgery: 02/13/24 Surgical procedure being done: Cataract right eye 02/12 left eye 02/25 Type of anesthesia: IV sedation Lab needed: No EKG: No Surgeon's name: Dr. Berger Facility name[facility] Surgeon's office number: [phone] Surgeon's office fax number: [phone] Contact name (person you spoke with): Marcelo Last office note from surgeon requested: No Pt scheduled for Pre op on 02/07/24 with [place] documented in this encounter Plan of Treatment Upcoming Encounters Date Type Department Care Team (Late st Contact Info) Description 05/30/2024 9:15 AM EDT Office Visit [facility] [address] [place] [phone] James Flores MD [address] [place] [phone] documented as of this encounter Visit Diagnoses Not on filedocumented in this encounter Care Teams Publication Manager Relationship Specialty Start Date End Date James Floers MD [address] [place] [phone] PCP - General Internal Medicine 02/04/14 documented as of this encounter
--- OUTSIDE RECORDS SUMMARY | 2024-05-01 09:12 | XMS_ITS | Encounter Summary ---
Author Organization [employer] [facility] Address [address] [place] [address] [address]t [place] [address] Care Team Providers Care Surgical Nurse Name Role Phone James Flores MD Primary Care Provide r Reason for Visit * Reason Comments Med Refill Encounter Details Date Type Department Care Team (Late st Contact Info) Description 08/21/2022 Refill [facility] [address] [place], [place] [phone] James Flores MD [address] [place], [place] [phone] Social History Tobacco Use Types Packs/Day Years [...] Description 05/30/2024 9:15 AM EDT Office Visit [facility] [address] [place], [place] [phone] James Flores MD [address] [place], [place] [phone] documented as of this encounter Visit Diagnoses Not on filedocumented in this encounter Care Teams Surgical Nurse Relationship Specialty Start Date End Date James Flores MD [address] [place] [address] PCP - General Internal Medicine 02/04/14 documented as of this encounter
--- OUTSIDE RECORDS SUMMARY | 2024-05-01 09:12 | XMS_ITS | Encounter Summary ---
Author Organization [employer] Address [address] [facility] [address] [place] [address] Care Team Providers Care Packaging Designer Name Role Phone James Flores MD Primary Care Provide r Encounter Details Date Type Department Care Team ([facility] Contact Info) Description 03/14/2023 Telephone [facility] [address] [place], [place] [phone] Adriana Odell [place] Social History Tobacco Use Types Packs/Day Years [...] Description 05/30/2024 9:15 AM EDT Office Visit [facility] [address] [place] [phone] James Flores MD [address] [place] [address] documented as of this encounter Visit Diagnoses Not on filedocumented in this encounter Care Teams Packaging Designer Relationship Specialty Start Date End Date James Flores MD [address] [place] [address] PCP - General Internal Medicine 02/04/14 documented as of this encounter
--- OUTSIDE RECORDS SUMMARY | 2024-05-01 09:12 | XMS_ITS | Encounter Summary ---
Author Organization [employer] Address [address] [facility] 7t [place] [address] Care Team Providers Care Legal Administrative Assistant Name Role Phone James Flores MD Primary Care Provide r Reason for Visit * Reason Comments Med Refill Encounter Details Date Type Department Care Team ([facility] st Contact Info) Description 03/12/2023 Refill [facility] MEDICINE 230 [place], [place] [phone] James Flores MD [address] [place], [place] [phone] Chronic anemia Social History Tobacco Use Types Packs/Day Years [...] Description 05/30/2024 9:15 AM EDT Office Visit [facility] MED[facility]INE 230 [place] [address] James Flores MD [address] [place] [address] documented as of this encounter Visit Diagnoses Diagnosis Chronic anemia Unspecified anemia documented in this encounter Care Teams Legal Administrative Assistant Relationship Specialty Start Date End Date James Flores MD [address] [place] [address] PCP - General Internal Medicine 02/04/14 documented as of this encounter
--- OUTSIDE RECORDS SUMMARY | 2024-05-01 09:12 | XMS_ITS | Encounter Summary ---
Author Organization [employer] Address [address] [facility] 7t [place] [address] Care Team Providers Care Credit Administration Officer Name Role Phone James Flores MD Primary Care Provide r Reason for Visit * Reason Comments Med Refill Encounter Details Date Type Department Care Team ([facility] st Contact Info) Description 09/04/[address] [facility] MEDICINE 230 [place], [place] [phone] Name, MD Loki 230 [place] [address] Gastroesophageal reflux disease without esophagitis Social History Tobacco Use Types Packs/Day Years [...] Description 05/30/2024 9:15 AM EDT Office [facility] MEDICINE 230 [place] [address] James Flores MD [address] [place] [address] documented as of this encounter Visit Diagnoses Diagnosis Gastroesophageal reflux disease without esophagitis Esophageal reflux documented in this encounter Care Teams Credit Administration Officer Relationship Specialty Start Date End Date James Flores MD [address] [place] [address] PCP - General Internal Medicine 02/04/14 documented as of this encounter
--- OUTSIDE RECORDS SUMMARY | 2024-05-01 09:12 | XMS_ITS | Encounter Summary ---
Author Organization [employer] Address [address] [facility] 7t [place] [address] Care Team Providers Care Weed Inspector Name Role Phone James Flores MD Primary Care Provide r Encounter Details Date Type Department Care Team (Late st Contact Info) Description 05/11/2022 Telephone [facility] MEDICINE 230 [place], [place] [phone] James Flores MD 230 [place], [place] [phone] Social History Tobacco Use Types Packs/Day Years [...] 05/30/2024 9:15 AM EDT Office Visit [facility] MEDICINE [address] [place] [address] [phone] James Flores MD 230 [place], [place] [phone] documented as of this encounter Visit Diagnoses Not on filedocumented in this encounter Care Teams Weed Inspector Relationship Specialty Start Date End Date James Flores MD 230 [place] [address] PCP - General Internal Medicine 02/04/14 documented as of this encounter
--- OUTSIDE RECORDS SUMMARY | 2024-05-01 09:12 | XMS_ITS | Encounter Summary ---
Author Organization [employer] Address 75 [facility] 7t [place] [address] Care Team Providers Care M1A1 Tank Crewman Name Role Phone James Flores MD Primary Care Provide r Encounter Details Date Type Department Care Team (Late Contact Info) Description 03/17/2022 Orders Only [facility] MED & PEDS [address] [place], [place] [phone] Jaja Hammond LPN Social History Tobacco Use [...] Description 05/30/2024 9:15 AM EDT Office Visit [facility] MEDICINE 230 [place], [place] [phone] James Flores MD 230 [place], [place] [phone] documented as of this encounter Visit Diagnoses Not on filedocumented in this encounter Care Teams M1A1 Tank Crewman Relationship Specialty Start Date End Date James Flores MD [address] [place] [address] PCP - General Internal Medicine 02/04/14 documented as of this encounter
--- OUTSIDE RECORDS SUMMARY | 2024-05-01 09:12 | XMS_ITS | Encounter Summary ---
Author Organization [employer] Address [address] [facility] 7t [place] [address] Care Team Providers Care Intermediate Accountant Name Role Phone James Flores MD Primary Care Provide r Encounter Details Date Type Department Care Team (Late st Contact Info) Description 08/22/2022 Orders Only [facility] CHC MED & PEDS 505 [place], [place] [phone] Jaja Hammond LPN Social History Tobacco Use [...] Description 05/30/2024 9:15 AM EDT Office Visit [facility] MEDICINE 230 [place] [address] James Flores MD 230 [place], [place] [phone] documented as of this encounter Visit Diagnoses Not on filedocumented in this encounter Care Teams Intermediate Accountant Relationship Specialty Start Date End Date James Flores MD 230 [place], [place] [phone] PCP - General Internal Medicine 02/04/14 documented as of this encounter
--- OUTSIDE RECORDS SUMMARY | 2024-05-01 09:12 | XMS_ITS | Encounter Summary ---
Author Organization [employer] Address 75 [facility] 7t [place] [address] Care Team Providers Care Plant Breeder Scientist Name Role Phone James Flores MD Primary Care Provide r Reason for Visit * Reason Comments Med Refill Encounter Details Date Type Department Care Team ([facility] st Contact Info) Description 08/27/2023 Refill [facility] MEDICINE 230 [place], [place] [phone] Name, MD Loki 230 [place] [address] Gastroesophageal reflux disease without esophagitis Social History [...] Description 05/30/2024 9:15 AM EDT Office Visit [facility] MEDICINE 230 [place] [address] James Flores MD [address] [place] [address] documented as of this encounter Visit Diagnoses Diagnosis Gastroesophageal reflux disease without esophagitis Esophageal reflux documented in this encounter Care Teams Plant Breeder Scientist Relationship Specialty Start Date End Date James Flores MD [address] [place] [address] PCP - General Internal Medicine 02/04/14 documented as of this encounter
[2024-05-01 09:15] LABS: Glucose, Whole Blood 150 mg/dL (60-115)
== END 2024-05-01 09:29 | disposition home or self-care (01) ==
PROVIDERS: PCP Internal Medicine; Visit Provider Internal Medicine
DX: E11.65 Type 2 diabetes mellitus with hyperglycemia (principal); Z79.4 Long term (current) use of insulin

== ENCOUNTER 2024-05-01 09:40 | Outpatient (REF) | payer MEDICARE, SELFPAY ==
--- OUTSIDE RECORDS SUMMARY | 2024-05-01 09:59 | XMS_ITS | Encounter Summary ---
Author Organization [employer] Address 75 [facility] 7t [place] [address] Care Team Providers Care Diabetes Trainer Name Role Phone James Flores MD Primary Care Provide r Encounter Details Date Type Department Care Team (Late st Contact Info) Description 08/22/2022 Orders Only [facility] CHC MED & PEDS 505 [place], [place] [phone] Jaja Hammond LPN Social History Tobacco Use [...] Description 05/30/2024 9:15 AM EDT Office Visit [facility] MEDICINE 230 [place] [address] James Flores MD 230 [place], [place] [phone] documented as of this encounter Visit Diagnoses Not on filedocumented in this encounter Care Teams Diabetes Trainer Relationship Specialty Start Date End Date James Flores MD 230 [place], [place] [phone] PCP - General Internal Medicine 02/04/14 documented as of this encounter
--- OUTSIDE RECORDS SUMMARY | 2024-05-01 10:00 | XMS_ITS | Encounter Summary ---
Author Organization [employer] Address 75 [facility] 7t [place] [address] Care Team Providers Care Manager Facility Name Role Phone James Flores MD Primary Care Provide r Reason for Visit * Reason Onset Date Comments Nurse Triage 03/18/2024 Encounter Details Date Type Department Care Team ([facility] st Contact Info) Description 03/18/[address] [facility] MEDICINE 230 [place], [place] [phone] James Flores MD 230 [place], [place] [phone] Nurse Triage Social History Tobacco Use Types [...] 03/18/2024 11:50 AM EST Triage call with [facility] [place] [id number]. Pt reports continual coughing with cold symptoms. Pt was seen in [facility] 02/29/24 for cough and exacerbation of asthma. Pt reports has been using inhaler and nebulizer as prescribed though not every day.Pt denies having difficulty breathing. Pt requests to see provider again due to continuation of cough and cold symptoms neg for fever. Pt is advised to return to [facility] today open till 8pm and Pt agreeswith this disposition. Pt is requesting what medication could be taken for cough , Pt is taking BP medications and is advised to ask provider when seen in [facility] and Pt agrees. Insurance is verified [...] AM EDT Office Visit [facility] MEDICINE 230 [place] [address] James Flores MD 230 [place] [address] documented as of this encounter Visit Diagnoses Not on filedocumented in this encounter Additional Health Concerns Assessment Noted Time PHQ-9 Depression Total Score: 0 01/30/20 24 10:37 AM EST documented as of this encounter Care Teams Manager Facility Relationship Specialty Start Date End Date James Flores MD 230 [place] [address] PCP - General Internal Medicine 02/04/14 documented as of this encounter
--- OUTSIDE RECORDS SUMMARY | 2024-05-01 10:00 | XMS_ITS | Encounter Summary ---
Author Organization [employer] Address 75 [facility] 7t [place] [address] Care Team Providers Care Buncher Hand Name Role Phone James Flores MD Primary Care Provide r Encounter Details Date Type Department Care Team ([facility] Contact Info) Description 03/14/2023 Telephone [facility] 230 [place], [place] [phone] Adriana Odell [place] Social History Tobacco Use [...] Description 05/30/2024 9:15 AM EDT Office Visit [facility] MEDICINE 230 [place] [address] James Flores MD 230 [place] [address] documented as of this encounter Visit Diagnoses Not on filedocumented in this encounter Care Teams Buncher Hand Relationship Specialty Start Date End Date James Flores MD 230 [place] [address] PCP - General Internal Medicine 02/04/14 documented as of this encounter
--- OUTSIDE RECORDS SUMMARY | 2024-05-01 10:00 | XMS_ITS | Encounter Summary ---
Author Organization [employer] Address [address] [facility] 7t [place] [address] Care Team Providers Care Critical Care Physician Assistant Name Role Phone James Flores MD Primary Care Provide r Encounter Details Date Type Department Care Team ([facility] st Contact Info) Description 01/11/2024 Telephone [facility] MEDICINE 230 [place], [place] [phone] James Flores MD 230 [place], [place] [phone] Social History Tobacco Use Types Packs/Day Years [...] Description 05/30/2024 9:15 AM EDT Office Visit [facility] MEDICINE 230 [place] [address] James Flores MD 230 [place] [address] documented as of this encounter Visit Diagnoses Not on filedocumented in this encounter Care Teams Critical Care Physician Assistant Relationship Specialty Start Date End Date James Flores MD 230 [place] [address] PCP - General Internal Medicine 02/04/14 documented as of this encounter
--- OUTSIDE RECORDS SUMMARY | 2024-05-01 10:00 | XMS_ITS | Encounter Summary ---
Author Organization [employer] Address [address] [facility] 7t [place] [address] Care Team Providers Care License Inspector Name Role Phone James Flores MD Primary Care Provide r Encounter Details Date Type Department Care Team ([facility] st Contact Info) Description 01/09/2023 Orders Only [facility] CHC MED & PEDS 505 [place], [place] [phone] Jaja Hammond LPN Social History Tobacco Use Types Packs/Day Years Used Date Smoking Tobacco: Never Assessed Housing Stability Answer Date Recorded What is your housing situation today? Not on daniel e 12/28/[address] you [...] EDT Office Visit [facility] MEDICINE 230 [place] [address] James Flores MD 230 [place] [address] documented as of this encounter Visit Diagnoses Not on filedocumented in this encounter Care Teams License Inspector Relationship Specialty Start Date End Date James Flores MD [address] [place] [address] PCP - General Internal Medicine 02/04/14 documented as of this encounter
--- OUTSIDE RECORDS SUMMARY | 2024-05-01 10:00 | XMS_ITS | Encounter Summary ---
Author Organization [employer] Address 75 [facility] 7t [place] [address] Care Team Providers Care Novelty Worker Name Role Phone James Flores MD Primary Care Provide r Reason for Visit * Reason Onset Date Comments Pre op 01/11/2024 Encounter Details Date Type Department Care Team ([facility] st Contact Info) Description 01/11/2024 Telephone [facility] MEDICINE 230 [place], [place] [phone] James Flores MD 230 [place], [place] [phone] Pre op Social History Tobacco Use Types [...] [facility] Surgeon's office number: [phone] Surgeon's office fax number: [phone] Contact name (person you spoke with): Marcelo Last office note from surgeon requested: No Pt scheduled for Pre op on 02/07/24 with [place] documented in this encounter Plan of Treatment Upcoming Encounters Date Type Department Care Team (Late st Contact Info) Description 05/30/2024 9:15 AM EDT Office Visit [facility] MEDICINE [address] [place] [address] James Flores MD [address] [place] [address] documented as of this encounter Visit Diagnoses Not on filedocumented in this encounter Care Teams Novelty Worker Relationship Specialty Start Date End Date James Flores MD [address] [place] [address] PCP - General Internal Medicine 02/04/14 documented as of this encounter
--- OUTSIDE RECORDS SUMMARY | 2024-05-01 10:00 | XMS_ITS | Encounter Summary ---
Author Organization [employer] Address [address] [facility] 7t [place] [address] Care Team Providers Care Field Clerk Name Role Phone James Flores MD Primary Care Provide r Encounter Details Date Type Department Care Team (Late st Contact Info) Description 05/11/2022 Telephone [facility] MEDICINE 230 [place], [place] [phone] James Flores MD 230 [place], [place] [phone] Social History Tobacco Use Types Packs/Day Years [...] 9:15 AM EDT Office Visit [facility] MEDICINE [address] [place] [address] [phone] James Flores MD 230 [place], [place] [phone] documented as of this encounter Visit Diagnoses Not on filedocumented in this encounter Care Teams Field Clerk Relationship Specialty Start Date End Date James Flores MD 230 [place] [address] PCP - General Internal Medicine 02/04/14 documented as of this encounter
--- OUTSIDE RECORDS SUMMARY | 2024-05-01 10:00 | XMS_ITS | Encounter Summary ---
Author Organization [employer] Address 75 [facility] 7t [place] [address] Care Team Providers Care Regional Sales Consultant Name Role Phone James Flores MD Primary Care Provide r Encounter Details Date Type Department Care Team (Late st Contact Info) Description 04/13/2022 Orders Only [facility] MEDICINE [address] [place] [address] [phone] April Olsen LPN Social History Tobacco Use [...] Description 05/30/2024 9:15 AM EDT Office Visit [facility] MEDICINE 230 [place], [place] [phone] James Flores MD 230 [place], [place] [phone] documented as of this encounter Visit Diagnoses Not on filedocumented in this encounter Care Teams Regional Sales Consultant Relationship Specialty Start Date End Date James Flores MD [address] [place] [address] PCP - General Internal Medicine 02/04/14 documented as of this encounter
--- OUTSIDE RECORDS SUMMARY | 2024-05-01 10:00 | XMS_ITS | Encounter Summary ---
Author Organization [employer] Address [address] [facility] 7t [place] [address] Care Team Providers Care Steel Chipper Name Role Phone James Flores MD Primary Care Provide r Reason for Visit * Reason Onset Date Comments Durable Medical Equipment 09/27/2023 Encounter Details Date Type Department Care Team ([facility] st Contact Info) Description 09/27/2023 Telephone [facility] MEDICINE 230 [place] [address] James Flores MD 230 [place], [place] [phone] Durable Medical Equipment Social History Tobacco Use [...] t he electric, gas, oil or water Urban Gentleman threatened to shut off services in your [...] 1 flip pillow DME Please contact at [phone] * Telephone Encounter - Fernando Christie - 09/27/2023 2:40 PM EDT Tc from pt 10 in 1 flip pillow due to issues sleeping. Pt would like script to be faxed to [facility] If any questions you can contact pt at [phone]. documented in this encounter Plan of Treatment Upcoming Encounters Date Type Department Care Team (Late st Contact Info) Description 05/30/2024 9:15 AM EDT Office Visit [facility] MEDICINE 230 [place] [address] James Flores MD 230 [place] [address] documented as of this encounter Visit Diagnoses Not on filedocumented in this encounter Care Teams Steel Chipper Relationship Specialty Start Date End Date James Flores MD [address] [place] [address] PCP - General Internal Medicine 02/04/14 documented as of this encounter
--- OUTSIDE RECORDS SUMMARY | 2024-05-01 10:00 | XMS_ITS | Encounter Summary ---
Author Organization [employer] Address [address] [facility] 7t [place] [address] Care Team Providers Care Level Designer Name Role Phone James Flores MD Primary Care Provide r Encounter Details Date Type Department Care Team (Late st Contact Info) Description 05/01/2024 Orders Only GENERIC EXTERNAL DATA DEPARTMENT Provider, Generic External Data Social History Tobacco Use Types Packs/Day Years [...] Description 05/30/2024 9:15 AM EDT Office Visit [facility] MEDICINE 230 [place] [address] James Flores MD 230 [place] [address] documented as of this encounter Procedures Procedure Name Priority Date/Time Associated Diagnosis Comments GLUCOSE, WHOLE BLOOD Routine 05/01/2024 9:11 AM EST documented in this encounter Results * (ABNORMAL) Glucose, Whole Blood (05/01/2024 9:11 AM EST) Glucose, Whole Blood 150(H) 60 - 115 mg/dL [facility] Comment:METER #: [id number] 5Testing performed in the Endocrinology Department [address], [address], [facility]. 05/01/2024 9:11 AM EST 05/01/2024 9:15 AM EST us Generic External Data Provider LAB BLOOD ORDERAB LES Final Result [facility] [address] [place] [phone] documented in this encounter Visit Diagnoses Not on filedocumented in this encounter Additional Health Concerns Assessment Noted Time PHQ-9 Depression Total Score: 0 01/30/20 24 10:37 AM EST documented as of this encounter Care Teams Level Designer Relationship Specialty Start Date End Date James Flores MD 230 [place] [address] PCP - General Internal Medicine 02/04/14 documented as of this encounter
--- OUTSIDE RECORDS SUMMARY | 2024-05-01 10:00 | XMS_ITS | Encounter Summary ---
Author Organization [employer] [facility] Address [address] [place] [address] 7t [place] [address] Care Team Providers Care Leach Cell Operator Name Role Phone James Flores MD Primary Care Provide r Reason for Visit * Reason Comments Med Refill Encounter Details Date Type Department Care Team (Late st Contact Info) Description 08/21/2022 Refill [facility] MEDICINE 230 [place], [place] [phone] James Flores MD 230 [place], [place] [phone] Social History Tobacco Use Types Packs/Day Years [...] Description 05/30/2024 9:15 AM EDT Office Visit [facility] MEDICINE 230 [place], [place] [phone] James Flores MD 230 [place], [place] [phone] documented as of this encounter Visit Diagnoses Not on filedocumented in this encounter Care Teams Leach Cell Operator Relationship Specialty Start Date End Date James Flores MD 230 [place] [address] PCP - General Internal Medicine 02/04/14 documented as of this encounter
--- OUTSIDE RECORDS SUMMARY | 2024-05-01 10:00 | XMS_ITS | Encounter Summary ---
Author Organization [employer] Address 75 [facility] 7t [place] [address] Care Team Providers Care Mission Planner Name Role Phone James Flores MD Primary Care Provide r Encounter Details Date Type Department Care Team (Late st Contact Info) Description 06/14/2022 Orders Only [facility] MED & PEDS 505 [place], [place] [phone] Jaja Hammond LPN Social History Tobacco Use [...] 9:15 AM EDT Office Visit [facility] MEDICINE 230 [place], [place] [phone] James Flores MD 230 [place], [place] [phone] documented as of this encounter Visit Diagnoses Not on filedocumented in this encounter Care Teams Mission Planner Relationship Specialty Start Date End Date James Flores MD 230 [place], [place] [phone] PCP - General Internal Medicine 02/04/14 documented as of this encounter
--- OUTSIDE RECORDS SUMMARY | 2024-05-01 10:00 | XMS_ITS | Clinical Summary ---
Author Organization [employer] Address [address] [place] [address] Care Team Providers Care Process Architect Name Role Phone James Floers MD Primary Care Provide r Allergies Active [...] morning. 01/20/20 23 Active Calcium Citrate-Vitamin D (Adair Calcium/Vitamin D) 200-6.25 MG-MCG tablet TAKE 2 TABLETS BY MOUTH TWICE DAILY IN THE MORNING AND EVENING 01/20/20 23 Active clopidogrel (Plavix) 75 MG tablet TAKE 1 TABLET BY MOUTH EVERY EVENING 90 tablet 3 08/03/19 24 Active Pentips 32G X 4 MM miscIndications:Ty pe 2 diabetes mellitus without complication, with long-term current use of insulin (CMS/[facility]) USE DIRECTED FOUR TIMES DAILY [...] 14 DAYS 01/04/20 24 Active Continuous Glucose Coal Sampler (FreeStyle Collin 3 [place]) device USE DIRECTED 09/11/19 24 Active bisacodyl [...] tablet 1 03/21/19 25 Active nystatin (Mycostatin) 092700 UNIT/GM powderIndications: Tinea corporis Apply topically 2 [...] underwent Colpo with biopsies & ECC per REPAIRER GENERAL notes from 04/2017 Colonoscopy: 07/2022 Tubular adenoma repeat 3 years Vaccines: Flu shot: tdap: 05/31/2013 Dexa scan:. 04/28/2015 showed osteopenia Assessment & Plan (01/30/2024 11:02 AM EST): Routine physical exam today: within normal limits Mammogram: NL : 02/22/2023 Pap Smear: 06/27/2023: Normal In 11/24/2016 ASCUS with positive HPV. Pt underwent Colpo with biopsies & ECC per REPAIRER GENERAL notes from 04/2017 Colonoscopy: 07/2022 Tubular adenoma repeat 3-5 years Vaccines: Flu shot: tdap: 05/31/2013 Dexa scan:. 04/28/2015 showed osteopenia Assessment & Plan (01/19/2023 1:43 PM EST): Mammogram: NL : 01/29/2021 Pap Smear: 11/24/2016 ASCUS with positive HPV. Pt underwent Colpo with biopsies & ECC per REPAIRER GENERAL notes from 04/2017 she was supposed to have a repeat with co test 04/2018 and if both neg then would f/u in 3 years records requested Colonoscopy: 07/2022 Tubular adenoma repeat 3-5 years Vaccines: Flu shot: tdap: 05/31/2013 Dexa scan:. 04/28/2015 showed osteopenia History of CVA (cerebrovascular accident) 2021 Assessment & Plan (01/19/2023 1:44 PM EST): Hx of this Pt was admitted to [facility] from 10:12/31-12/22/2020 Patient presented to ED with [...] Plan (01/31/2023 11:27 AM EST): Seen at [facility] 01/28/2023 with an asthma exacerbation Doing better [...] disease and negative nuclear stress test at [facility] . Due to her recent CVA she [...] disease and negative nuclear stress test at [facility] . Due to her recent CVA she is now back on Plavix, she is now being followed by Dr Singh last seen 07/2022 Encounters Date Type Department Care Team Description 05/01/2024 Orders Only GENERIC EXTERNAL DATA DEPARTMENT Provider, Generic External Data 03/26/2024 1:40 PM EST Office Visit [facility] [address] [place] [address] Sarah Mehta MD Acute URI (Primary Dx); Cough in adult patient 03/21/2024 9:15 AM EST Office Visit [facility] [address] [place] [address] James Flores MD Acute cough (Primary Dx); Primary hypertension; Coronary artery disease involving [place] coronary artery of [place] heart without angina pectoris; Type 2 diabetes mellitus with stage 3a chronic kidney disease, with long-term current use of insulin ([facility]); Severe obesity (CMS/[facility]); Tinea corporis; Preventative health care 03/21/2024 Travel 03/21/2024 Refill [facility] [address] [place] [address] James Flores MD Chronic anemia 03/19/2024 Refill [facility] [address] [place] [address] James Flores MD Type 2 diabetes mellitus without complication, with long-term current use of insulin (CMS/[facility]) 03/18/2024 Telephone [facility] [address] [place] [address] James Flores MD Nurse Triage 03/10/2024 Refill [facility] [address] [place], [place] [phone] Ruchi Nolan MD Type 2 diabetes mellitus without complication, with long-term current use of insulin (CMS/HCC) 03/04/2024 Telephone [facility] [address] [place], [place] [phone] Coco Montiel NP 02/29/2024 3:20 PM EST Office Visit [facility] [address] [place] [phone] Coco Montiel NP Cough in adult patient (Primary Dx); Mild intermittent asthma without complication; Heart murmur, systolic; Elevated blood pressure reading in office with diagnosis of hypertension 02/29/2024 Telephone [facility] [address] [place] [address] James Flores MD Nurse Triage 02/23/2024 Refill [facility] [address] [place], [place] [phone] James Flores MD Mixed hyperlipidemia 02/12/2024 Telephone [facility] [address] [place] [address] Meghan Bailey RN 02/07/2024 10:30 AM EST Office Visit [facility] [address] [place] [phone] Jaye Montana NP Type 2 diabetes mellitus with stage 3a chronic kidney disease, with long-term current use of insulin ([facility]) (Primary Dx); Mixed hyperlipidemia; Primary hypertension; Obstructive sleep apnea syndrome; Mild persistent asthma with acute exacerbation; Pre-op exam 02/02/[address] [address] James Flores MD DME Orthotics & Prosthetics 01/30/2024 10:30 AM EST Office Visit [address] [address] James Flores MD Primary hypertension (Primary Dx); Type 2 diabetes mellitus with stage 3a chronic kidney disease, with long-term current use of insulin ([facility]/HCC); Chronic constipation; CKD stage 3 secondary to diabetes ([facility]); Class 2 severe obesity due to excess calories with serious comorbidity and body mass index (BMI) of 36.0 to 36.9 in adult ([facility]); Preventative health care; Chronic anemia; [...] [facility] [address] [place] [address] James Flores MD [address] [place] [address] Health Maintenance Due Date Last Done Comments [...] WHOLE BLOOD Routine 05/01/2024 9:11 AM EST POCT INFLUENZA B (ID NOW RAPID MOLECULAR) [...] disease, with long-term current use of insulin ([facility]) POCT GLUCOSE Routine 03/21/2024 9:50 AM EST Type 2 diabetes mellitus with stage 3a chronic kidney disease, with long-term current use of insulin ([facility]) POCT INFLUENZA B (ID NOW [...] disease, with long-term current use of insulin ([facility]/HCC) CBC WITH AUTO DIFFERENTIAL Routine 02/05/2024 7:55 AM EST Chronic anemia LIPID PANEL, STANDARD Routine 02/05/2024 7:55 AM EST Type 2 diabetes mellitus with stage 3a chronic kidney disease, with long-term current use of insulin ([facility]/HCC) COMPREHENSIVE METABOLIC PANEL Routine 02/05/2024 7:55 AM EST Type 2 diabetes mellitus with stage 3a chronic kidney disease, with long-term current use of insulin ([facility]/HCC) POCT GLYCATED HEMOGLOBIN, TOTAL Routine 01/30/2024 10:41 AM EST Type 2 diabetes mellitus with stage 3a chronic kidney disease, with long-term current use of insulin ([facility]/HCC) POCT GLUCOSE Routine 01/30/2024 10:37 AM EST Type 2 diabetes mellitus with stage 3a chronic kidney disease, with long-term current use of insulin ([facility]/HCC) PAP SMEAR Routine 06/22/2023 3:20 PM EDT BI MAMMOGRAM SCREENING TOMOSYNTHESIS BILATERAL Routine 02/22/2023 8:20 AM EST HM COLONOSCOPY Routine 07/11/2022 3:53 PM EDT ZZZ HISTORICAL HPV E6/E7 RFLX DANIAL 16 18/45 Routine 01/17/2022 4:22 PM EST from Last 3 Months or Most Recently Relevant to Health Maintenance Results * (ABNORMAL) Glucose, Whole Blood (05/01/2024 9:11 AM EST) Glucose, Whole Blood 150(H) 60 - 115 mg/dL [facility] Comment:METER #: [id number] 5Testing performed in the Endocrinology Department [address] , [address], [facility]. 05/01/2024 9:11 AM EST 05/01/2024 9:15 AM EST Generic External Data Provider LAB BLOOD ORDERAB LES Final Result Performing Organization Address [facility]/ZIP Co de Phone Number [facility] [address] [place] [phone] * Influenza B (ID NOW Rapid Molecular) (03/26/2024 1:48 PM EST) Only the most recent of3 resultswithin the time period is included. Influenza B Negative Negative, Indeterminate [facility] Swab 03/26/2024 1:48 PM EST Sarah Mehta MD POINT OF CARE TEST ENTER/E DIT ORDERABLES Final Result Performing Organization Address [facility] Co de Phone Number [facility] [address] [place] [phone] * Influenza A (ID NOW Rapid Molecular) (03/26/2024 1:47 PM EST) Only the most recent of3 resultswithin the time period is included. Influenza A Negative Negative, Indeterminate [facility] Swab 03/26/2024 1:47 PM EST Sarah Mehta MD POINT OF CARE TEST ENTER/E DIT ORDERABLES Final Result Performing Organization Address [facility] Co de Phone Number [facility] [address] [place] [phone] * POCT Rapid COVID Ag (03/26/2024 1:39 PM EST) Only the most recent of3 resultswithin the time period is included. Pathologist [facility] Rapid COVID Ag Negative Swab 03/26/2024 1:39 PM EST Sarah Mehta MD POINT OF CARE TEST ENTER/E DIT ORDERABLES Final Result * (ABNORMAL) POCT HGB A1C (03/21/2024 9:51 AM EST) Only the most recent of2 resultswithin the time period is included. Pathologist [facility] Hemoglobin A1C 8.4(A) 4.0 - 6.0 % QC Media Lot # [id number] Lot# Expiration Date Blood 03/21/2024 9:51 AM EST James Ashraf MD POINT OF CARE TEST EN TER/EDIT ORDERABLES Final Result * POCT Glucose (03/21/2024 9:50 AM EST) Only the most recent of3 resultswithin the time period is included. Pathologist [facility] Glucose Blood, POC 118 60 - 200 mg/dL QC Media Lot # [id number] Lot# Expiration Date Blood Capillary blood specimen / Unknown 03/21/2024 9:50 AM EST James Ashraf MD POINT OF CARE TEST EN TER/EDIT ORDERABLES Final Result * (ABNORMAL) CBC auto differential (02/05/2024 7:55 AM EST) Pathologist [facility] White Blood Count 5.9 4.8 - 10.8 X10*3/uL [facility] Red Blood Count 3.59(L) 4.20 - 5.50 X10*6/uL [facility] Hemoglobin 11.1(L) 12.0 - 16.0 g/dl [facility] Hematocrit 34.4(L) 37.0 - 47.0 % [facility] Mean Corpuscular Volume 95.8 80.0 - 98.0 fL [facility] Mean Corpuscular Hemoglobin 30.9 27.0 - 33.0 pg [facility] Mean Corpuscular HGB Conc 32.3 31.0 - 35.0 g/dl [facility] Red Cell Distribution Width 13.1 11.0 - 16.0 % [facility] Platelet Count 220 160 - 400 X10*3/uL [facility] Mean Platelet Volume 11.1 9.4 - 12.3 fL [facility] Neutrophils Percent Auto 43.5(L) 45 - 73 % [facility] Imm Gran Pct Auto 0.3 0.0 - 0.4 % [facility] Lymphocytes Percent Auto 46.6(H) 20 - 40 % [facility] Monocytes Percent Auto 7.1 2 - 11 % [facility] Eosinophils Percent Auto 2.2 0 - 4 % [facility] Basophils Percent Auto 0.3 0 - 2 % [facility] NRBC Pct Auto 0.0 0.0 - 0.2 /100WBC [facility] Neutrophils Absolute Auto 2.6 2.0 - 8.3 x10*3/uL [facility] Imm Gran Abs Auto 0.02 0.00 - 0.03 X10*3/uL [facility] Lymphocytes Absolute Auto 2.7 1.2 - 4.9 X10*3/uL [facility] Monocytes Absolute Auto 0.4 0.1 - 1.2 X10*3/uL [facility] Eosinophils Absolute Auto 0.1 0.0 - 0.4 X10*3/uL [facility] Basophils Absolute Auto 0.0 0.0 - 0.2 X10*3/uL [facility] NRBC Abs Auto 0.000 0.0 - 0.012 X10*3/uL [facility] Blood Venous blood specimen / Unknown 02/05/2024 7:55 AM EST 02/05/2024 11:12 AM EST us James Ashraf MD LAB BLOOD ORDERABLES Final Result Performing Organization Address [facility]/ZIP Co de Phone Number [facility] [address] [place] [phone] * Lipid Panel, Standard (02/05/2024 7:55 AM EST) Triglycerides 104 <150 mg/dL [facility] Comment:Desirable Triglyceri de: less than 150 mg/dLBorderline High Triglyceride 150-199 mg/dLHigh Triglyceride: 200-499 mg/dLVery High Triglyceride: greater than or equal to 5OO mg/dL Cholesterol 123 <200 mg/dL [facility] Comment:Desirable Cholestero l: less than 200 mg/dLBorderline High Cholesterol: 200-239 mg/dLHigh Cholesterol: greater than 239 mg/dL LDL Cholesterol Calculated 62 <100 mg/dL [facility] Comment:Desirable LDL: less than 100 mg/dLNear Optimal/Above Optimal LDL: 110- 129 mg/dLBorderline High LDL: 130-159 mg/dLHigh LDL: 160-189 mg/dLVery High LDL: greater than or equal to 190 mg/dL HDL Cholesterol 41 >40 mg/dL [facility] Comment:Desirable HDL: great er than 40 mg/dL Note: This HDL assay may give artificially low results in patients with liver disease. Blood Venous blood specimen / Unknown 02/05/2024 7:55 AM EST 02/05/2024 11:17 AM EST us James Ashraf MD LAB BLOOD ORDERABLES Final Result Performing Organization Address City/[facility]/ZIP Co de Phone Number [facility] [address] [place] [phone] * (ABNORMAL) Comprehensive Metabolic Panel (02/05/2024 7:55 AM EST) Sodium 141 135 - 145 mmol/L [facility] Potassium 4.7 3.3 - 5.1 mmol/L [facility] Chloride 105 96 - 108 mmol/L [facility] Carbon Dioxide 27 22 - 29 mmol/L [facility] Anion Gap 14 12 - 20 [facility] Urea Nitrogen (BUN) 33(H) 9 - 16 mg/dL [facility] Creatinine, Serum 1.62(H) 0.5 - 1.4 mg/dL [facility] Estimated Glomerular Filt Rate 32 [facility] Comment:Chronic Kidney Disea se: Estimated GFR < 60 mL/min/1.15b8Vkgrbz Kidney Disease: Estimated GFR < 15 mL/min/1.73m2 Glucose 93 60 - 115 mg/dL [facility] Calcium 10.2 8.4 - 10.2 mg/dL [facility] Bilirubin, Total 0.3 0.0 - 1.0 mg/dL [facility] Aspartate Amino Transferase 34(H) 5 - 31 U/L [facility] Alanine Aminotransferase 21 0 - 31 U/L [facility] Total Protein 6.7 6.5 - 8.0 g/dL [facility] Albumin Level 3.9 3.5 - 5.0 g/dL [facility] Alkaline Phosphatase 54 39 - 117 U/L [facility] Blood Venous blood specimen / Unknown 02/05/2024 7:55 AM EST 02/05/2024 11:17 AM EST us James Ashraf MD LAB BLOOD ORDERABLES Final Result [facility] [address] [place] [phone] * Pap Smear (06/22/2023 3:20 PM EDT) 06/22/2023 3:20 PM EDT 06/27/2023 11:15 AM EDT Narrative [facility] - 07/11/2023 2:16 PM EDT ----- ------- Name: Jayne Lane ?Age/Sex: 68/F ? : 1955 Unit#: [id number] ?? Attend Dr: Opal Carranza CNTwan ?Re06/22/23 ?Status: DEP REF ? Location: HO.LNP ?Disch: ? ----- ------- SPEC : [id number] ? RECD: 06/27/23-1115 ? STATUS: ??SOUT ? REQ NUM: [id number] ? CYRUS: 06/22/23-1520 ? SUBM DR: Opal Carranza CNM ? ENTERED: ??06/27/23-1232 ?SP TYPE: Pap Smr ?OTHR DR: James [...] 66, 68) ? HPV testing performed by [facility], [place], [place]. ??See reference laboratory ?? portion of the EMR for entire report. 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 Material Received ?? ThinPrep-Cervical Copies To: ?? James Trimble MD ?? [address] ?? [place] [address] ?? [phone] ?? Opal Carranza CNM ?? [address] [facility] ?? [place] [address] ?? [phone] ----- ------- Signed (signature on file) Ev Lumberton 07/11/23 1416 ? ----- ------- ? END OF REPORT ? us Generic External Data Provider LAB CYTOLOGY ORDE RABLES Final Result [facility] [address] [place] [address] [phone] * BI Mammogram Screening Tomosynthesis Bilateral (02/22/2023 8:20 AM EST) Anatomical Region Laterality Modality Breast Bilateral Mammography 02/22/2023 8:20 AM EST Narrative 03/07/2023 9:08 PM EST ? [facility] ? [address] ?[place] [address] ? Mammography Report ? Signed ? Patient: Cappa,Jayne ?MR#: [id number] ? : 1955 ?Acct:[id number] ? Age/Sex: 67 / F ?ADM Date: 12/13/23 ? Loc: HO.MAMMO ? Attending Dr: James Trimble MD ? Ordering Physician: Loraine Yadav MD ?Results: 1Ne ?? gative ? Date of Service: 02/22/ ?Follow Up: 1 Year From Orig ?? inal Mammogram ? Procedure(s): MM tomosynthesis screening BI ?? Accession Number(s): [id number] ? cc: James Trimble MD; Loraine Yadav [...] MD in OV> ? 03/07/232103 ? DD/ 1120 ? TD/TT: ? Hand Rug Cleaner: ? Procedure Note Ofelia, Image - 03/07/2023 [facility] [address] [place] [address] Dr. [place], [place] [address] Mammography Report Signed Patient: Jayne LaneMR#: [id number] : 6Acct:[id number] Age/Sex: 67 / FADM Date: 02/22/23 Loc: DURGACarlosMAMMO Attending Dr: James Trimble MD Ordering Physician: Loraine Yadav MDResults: 1Ne gative Date of Service: 02/22/23Follow Up: 1 Year From Orig inal Mammogram Procedure(s): MM tomosynthesis screening BI Accession Number(s): [id number] cc: James Trimble MD; oLraine Yadav MD EXAMINATION: MM SCREENING DIGITAL BREAST [...] Nakita Matthew MD in OV> 03/07/232103 DD/ 0820 TD/TT: Hand Rug Cleaner: [facility] External Provider IMG BI PROCEDURES Final Result * Hm Colonoscopy (07/11/2022 3:53 PM EDT) Colonoscopy Normal Normal Comment:Tubular adenoma Historical Provider HEALTH MAINTENANCE Final Result * HPV E6/E7 RFLX DANIAL 16 18/45 (01/17/2022 4:22 PM EST) HPV 16 RNA TNP [facility] HPV 18/45 RNA TNP [facility] HPV E6 E7 ADD TNP [facility] HPV mRNA E6/E7 rflx Not Detected Not Detected [facility] Comment: Methodology: Correctional Lieutenant-Mediated Amplification This assay detects E6/E7 viral messenger RNA (mRNA) from 14 high-risk HPV types (16,18,31,33,35,39,45,51,52,56,58,59,66,68). Cervical sources are required for HPV testing. If a vaginal source from a patient who has had a total hysterectomy with removal of cervix was submitted, please contact the testing laboratory for alternative testing options. For additional information, please refer to http://education.ReplyBuy/faq/VAA147f3 (This link if provided for information/ educational purposes only.) THIS TEST WAS PERFORMED AT: [facility] [address] [place] [address],[address] [place], [place] ??[phone] KEVEN CHAND MD 01/17/2022 4:22 PM EST us Opal Carranza HISTORICAL/NON ORDERABLE LABS Fi nal Result [facility] from Last 3 Months or Most Recently Relevant to Health Maintenance Insurance [facility] Care Teams Process Architect Relationship Specialty Start Date End Date James Flores MD [address] [place] [phone] PCP - General Internal Medicine 02/04/14
--- OUTSIDE RECORDS SUMMARY | 2024-05-01 10:00 | XMS_ITS | Encounter Summary ---
Author Organization [employer] Address [address] [facility] 7t [place] [address] Care Team Providers Care Head Men'S Golf Coach Name Role Phone James Flores MD Primary Care Provide r Reason for Visit * Reason Comments Med Refill Encounter Details Date Type Department Care Team ([facility] st Contact Info) Description 03/12/2023 Refill [facility] [address] [place], [place] [phone] James Flores MD [address] [place], [place] [phone] Chronic anemia Social History Tobacco Use Types [...] Description 05/30/2024 9:15 AM EDT Office Visit [facility] [address] [place] [address] James Flores MD [address] [place] [address] documented as of this encounter Visit Diagnoses Diagnosis Chronic anemia Unspecified anemia documented in this encounter Care Teams Head Men'S Golf Coach Relationship Specialty Start Date End Date James Flores MD [address] [place] [address] PCP - General Internal Medicine 02/04/14 documented as of this encounter
--- OUTSIDE RECORDS SUMMARY | 2024-05-01 10:00 | XMS_ITS | Clinical Summary ---
Author Organization [facility] Address [address] [place] [address] Phone Care Team Providers Care Rn Case Management Name Role Phone James Grant MD Primary [...] patient's age to complete this topic Insurance [employer] [place] [id number] [employer] Care Teams Rn Case Management Relationship Specialty Start Date End Date aJmes Grant MD PCP - General 03/23/20
--- OUTSIDE RECORDS SUMMARY | 2024-05-01 10:00 | XMS_ITS | Encounter Summary ---
Author Organization [employer] Address [address] [facility] 7t [place] [address] Care Team Providers Care Job Molder Name Role Phone James Flores MD Primary Care Provide r Encounter Details Date Type Department Care Team (Late Contact Info) Description 02/21/2022 Abstract [facility] [address] [place] [address] [phone] James Flores MD [address] [place] [address] [phone] Social History Tobacco Use Types Packs/Day Years [...] 9:15 AM EDT Office Visit [facility] [address] [place] [address] [phone] James Flores MD [address] [place] [phone] documented as of this encounter Procedures Procedure [...] on filedocumented in this encounter Care Teams Job Molder Relationship Specialty Start Date End Date James Flores MD [address] [place] [phone] PCP - General Internal Medicine 02/04/14 documented as of this encounter
--- OUTSIDE RECORDS SUMMARY | 2024-05-01 10:00 | XMS_ITS | Encounter Summary ---
Author Organization [employer] Address [address] [facility] 7t [place] [address] Care Team Providers Care Clinical Team Manager Name Role Phone James Flores MD Primary Care Provide r Reason for Visit * Reason Comments Med Refill Encounter Details Date Type Department Care Team ([facility] st Contact Info) Description 09/04/2023 Refill [facility] [address] [place], [place] [phone] Name, MD Loki [address] [place] [address] Gastroesophageal reflux disease without esophagitis Social History [...] 9:15 AM EDT Office Visit [facility] [address] [place] [address] James Flores MD [address] [place] [phone] documented as of this encounter Visit Diagnoses Diagnosis Gastroesophageal reflux disease without esophagitis Esophageal reflux documented in this encounter Care Teams Clinical Team Manager Relationship Specialty Start Date End Date James Flores MD [address] [place] [phone] PCP - General Internal Medicine 02/04/14 documented as of this encounter
--- OUTSIDE RECORDS SUMMARY | 2024-05-01 10:00 | XMS_ITS | Encounter Summary ---
Author Organization [facility] Address [address] [place] [address] Phone Care Team Providers Care Speech Language Pathology Assistant Name Role Phone James Grant MD Primary Care Provider Unav ailable Reason for Visit * Reason Comments Med Refill Encounter Details Date Type Department Care Team (Late st Contact Info) Description 12/14/2022 Refill [facility] [address] [place] [address] Osmany Leung MD Social History [...] on filedocumented in this encounter Care Teams Speech Language Pathology Assistant Relationship Specialty Start Date End Date James Grant MD PCP - General 03/23/20 documented as of this encounter
--- OUTSIDE RECORDS SUMMARY | 2024-05-01 10:00 | XMS_ITS | Encounter Summary ---
Author Organization [employer] Address [address] [facility] 7t [place] [address] Care Team Providers Care Clay Plant Treater Name Role Phone James Flores MD Primary Care Provide r Reason for Visit * Reason Comments Med Refill Encounter Details Date Type Department Care Team ([facility] st Contact Info) Description 08/27/2023 Refill [facility] [address] [place], [place] [phone] Name, MD Loki [address] [place] [address] Gastroesophageal reflux disease without esophagitis Social History [...] 9:15 AM EDT Office Visit [facility] [address] [place] [address] James Flores MD [address] [place] [phone] documented as of this encounter Visit Diagnoses Diagnosis Gastroesophageal reflux disease without esophagitis Esophageal reflux documented in this encounter Care Teams Clay Plant Treater Relationship Specialty Start Date End Date James Flores MD [address] [place] [address] PCP - General Internal Medicine 02/04/14 documented as of this encounter
--- OUTSIDE RECORDS SUMMARY | 2024-05-01 10:00 | XMS_ITS | Encounter Summary ---
Author Organization [employer] Address [address] [facility] 7[address] [place] [address] Care Team Providers Care Mathematics Teacher Name Role Phone James Flores MD Primary Care Provide r Encounter Details Date Type Department Care Team (Late Contact Info) Description 03/17/2022 Orders Only [facility] [address] [place], [place] [phone] Jaja Hammond LPN Social History Tobacco Use [...] Description 05/30/2024 9:15 AM EDT Office Visit [facility] [address] [place], [place] [phone] James Flores MD [address] [place], [place] [phone] documented as of this encounter Visit Diagnoses Not on filedocumented in this encounter Care Teams Mathematics Teacher Relationship Specialty Start Date End Date James Flores MD [address] [place] [id number] PCP - General Internal Medicine 02/04/14 documented as of this encounter
--- OUTSIDE RECORDS SUMMARY | 2024-05-01 10:00 | XMS_ITS ---
Author Name Mr. Arlen Márquez Address [address] [place] [address] Phone [phone] [facility] Care Team Providers Care Diplomatic Interpreter Name Role Phone Micah Judge Unavailable [phone] Unavailable Unavailable Unavailable Reason for Referral Not [...] 2021-11-04 No Data Available OneTouch Delica Plus [id number] Miscellaneous TEST BLOOD SUGAR THREE OR FOUR [...] of Service Diagnosis/Co mplaint No Data Available [facility], ([place]) 07/12/2022 Type 2 diabetes mellitus wit h diabetic chronic kidney diseaseChronic kidney disease, stage 3bLong term (current) use of insulinMorbid (severe) obesity due to excess caloriesBody mass index (BMI) 40.0-44.9, adultOther specified health statusConstipation, unspecifiedProblems related to health literacyPrsnl hx of TIA (TIA), and cereb infrc w/o resid deficits No Data Available [facility], [facility]) 07/12/2022 No Data Available [facility], [facility]) 07/12/2022 No Data Available [facility], [facility]) 07/12/2022 No Data Available [facility] [place] 07/[place]/2022 No Data Available [facility] [place]20[place] No Data Available [facility] 07/[place]/2022 Morbid (severe) obesity due to excess caloriesBody mass index (BMI) 40.0-44.9, adultType 2 diabetes mellitus with diabetic chronic kidney diseaseChronic kidney disease, stage 3bPrsnl hx of TIA (TIA), and cereb infrc w/o resid deficitsOther specified health status No Data Available [facility] 07/22/2022 Vital Signs Date of Collection Vitals 2022-07-12 11:38:39 Height - 147.32 cmWe ight - 87.09 kgBody Mass Index (BMI) - 40.13 kg/m2 Social History Sex Female History of Procedures Procedures Service Procedure code Service date Servicing provider Phone# No Data Available [id number] 2022-07-12 No Data Available No Data Available [...] le No Data Available No Data Available [id number] 2022-07-22 No Data Available No Data Available [...] modifier 95Continue to see PCP. Follow-up with [facility] as needed for any acute or disease [...] modifier 95)Continue to see PCP. Follow-up with [facility] as needed for any acute or disease [...]
[2024-05-01 10:27] LABS: Estimated Average Glucose 203 mg/dL; Hemoglobin A1C 195.9372 umol/L; Hemoglobin A1c % 8.7 % (<6.0); Total Hemoglobin (HGBA1C) 2742.9903 umol/L
== END 2024-05-01 09:41 | disposition home or self-care (01) ==
LOC: HO.10HDL 09:40
PROVIDERS: Visit Provider Internal Medicine
DX: E11.65 Type 2 diabetes mellitus with hyperglycemia (principal); Z79.4 Long term (current) use of insulin
CPT/HCPCS: 36415; 82947; 83036; 99212

== ENCOUNTER 2024-05-15 08:02 | Outpatient (REF) | payer OTHER, SELFPAY ==
--- NOTE | ~2024-05-15 | MM_ITS ---
EXAMINATION: DXA BONE DENSITY EXTREMITY HISTORY: Estrogen deficiency TECHNIQUE: MoPals Dual energy absorptiometry (DEXA) of the lumbar spine, total left hip, femoral neck, and distal radius was performed. COMPARISON: Comparison is made with the prior examination dated 03/01/2022. FINDINGS: The bone mineral density of the lumbar spine is 0.957 with a T-score of -1.9, and a Z-score of -1.0. This represents a BMD change of -27% compared to the prior exam. This is not statistically significant. The bone mineral density of the left total hip is 0.871 with a T-score of -1.1, and a Z-score of -0.2. This represents BMD change of 3.8% compared to the prior exam. This is not statistically significant. The bone mineral density of the left femoral neck is 0.809 with a T-score of -1.6, and a Z-score of -0.5. This represents BMD change of -1.3% compared to the prior exam. The bone mineral density of the distal radius is 0.604 with a T-score of -3.1, and a Z-score of -1.4. This represents BMD change of -2.3% compared to the prior exam. This is not statistically significant. MM/XR DEXA appendicular skeleton IMPRESSION: Based on bone mineral density, and according to World Health Organization (WHO) criteria, the diagnosis is consistent with osteoporosis. All bone density values are in grams per centimeter squared (g/cm2). Statistically, 68% of repeat scans fall within 1 SD (+/- 0.010 g/cm2 for AP spine L1-L4) and 1 SD (+/- 0.012 g/cm2 for femur total) FRAX is a trademark of the [employer]'s [place] [facility] Met[employer] Disease, a World Health Organization (WHO) Collaborating Center. Electronically signed by: Zev Mukherjee MD 05/17/2024 07:34 AM [facility]
--- OUTSIDE RECORDS SUMMARY | 2024-05-15 08:11 | XMS_ITS | Patient Health Record ---
Author Organization [facility] Address [address] [place] [address] Care Team Providers Care Weigh And Charge Worker Name Role Phone Rudy Ashraf MD, James Primary Care Provide r Unavailable Moris Duron Jr Unavailable Reason For Referral No Information Plan Of Treatment No Information Insurance Providers Payer Name Payer Address Payer Phone Subscriber Number Group Number Insured Name Patient Relationship to Insured Coverage Start Date Coverage End Date MEDICARE OF [place] [address] [place] [id number] STEPHANI JOE Self - patient is the insured MEDICAID OF [facility] [address] [place] [address] [id number] STEPHANI JOE Self - patient is the insured
--- OUTSIDE RECORDS SUMMARY | 2024-05-15 08:11 | XMS_ITS | Encounter Summary ---
Author Organization [facility] Address [address] [place] [address] Phone Care Team Providers Care Plant Specialist Name Role Phone James Grant MD Primary Care Provider Unav ailable Reason for Visit * Reason Comments Med Refill Encounter Details Date Type Department Care Team (Late st Contact Info) Description 12/14/2022 Refill [facility] [address] [place] [address] Osmany Leung MD Social History [...] on filedocumented in this encounter Care Teams Plant Specialist Relationship Specialty Start Date End Date James Grant MD PCP - General 03/23/20 documented as of this encounter
--- OUTSIDE RECORDS SUMMARY | 2024-05-15 08:11 | XMS_ITS ---
Author Name Mr. Arlen Márquez Address [address] [place] [address] Phone [phone] [facility] Care Team Providers Care Golf Instructor Name Role Phone Micah Judge Unavailable [phone] Reason for Referral Not Available Allergies, adverse [...] 2021-11-04 No Data Available OneTouch Delica Plus [id number] Miscellaneous TEST BLOOD SUGAR THREE OR FOUR [...] of Service Diagnosis/Co mplaint No Data Available [facility], ([place]) 07/12/2022 Type 2 diabetes mellitus wit h diabetic chronic kidney diseaseChronic kidney disease, stage 3bLong term (current) use of insulinMorbid (severe) obesity due to excess caloriesBody mass index (BMI) 40.0-44.9, adultOther specified health statusConstipation, unspecifiedProblems related to health literacyPrsnl hx of TIA (TIA), and cereb infrc w/o resid deficits No Data Available [facility], [facility]) 07/12/2022 No Data Available [facility], [facility]) 07/12/2022 No Data Available [facility], [facility]) 07/12/2022 No Data Available [facility], [facility]) 07/12/2022 No Data Available [facility] 07/[place]20[place] No Data Available [facility] [place] 07[place]2022 Morbid (severe) obesity due to excess caloriesBody mass index (BMI) 40.0-44.9, adultType 2 diabetes mellitus with diabetic chronic kidney diseaseChronic kidney disease, stage 3bPrsnl hx of TIA (TIA), and cereb infrc w/o resid deficitsOther specified health status No Data Available [facility] 07/[place]2022 Vital Signs Date of Collection Vitals 2022-07-12 11:38:39 Height - 147.32 cmWe ight - 87.09 kgBody Mass Index (BMI) - 40.13 kg/m2 Social History Sex Female History of Procedures Procedures Service Procedure code Service date Servicing provider Phone# No Data Available [id number] 2022-07-12 No Data Available No Data Available [...] le No Data Available No Data Available [id number] 2022-07-22 No Data Available No Data Available [...] modifier 95Continue to see PCP. Follow-up with [facility] as needed for any acute or disease [...] modifier 95)Continue to see PCP. Follow-up with [facility] as needed for any acute or [...]
--- OUTSIDE RECORDS SUMMARY | 2024-05-15 08:12 | XMS_ITS | Clinical Summary ---
Author Organization [facility] Address [address] [place] [address] Phone Care Team Providers Care Catering Driver Name Role Phone James Grant MD Primary [...] patient's age to complete this topic Insurance [employer] [place] [id number] [employer] Care Teams Catering Driver Relationship Specialty Start Date End Date James Grant MD PCP - General 03/23/20
== END 2024-05-15 08:03 | disposition home or self-care (01) ==
LOC: HO.MAMMO 08:02
PROVIDERS: PCP Internal Medicine; Visit Provider Internal Medicine
DX: M81.0 Age-related osteoporosis without current pathological fracture (principal); E21.3 Hyperparathyroidism, unspecified; I25.10 Atherosclerotic heart disease of native coronary artery without angina pectoris; I35.0 Nonrheumatic aortic (valve) stenosis; I10 Essential (primary) hypertension; E11.65 Type 2 diabetes mellitus with hyperglycemia; Z79.4 Long term (current) use of insulin
CPT/HCPCS: 77081; 93005; 99212

== ENCOUNTER → 2024-05-15 08:15 | Outpatient (BNV) | payer OTHER, SELFPAY | PROVIDERS: PCP Internal Medicine; Visit Provider Radiology Diagnostic Radiology | DX: E28.39 Other primary ovarian failure (principal) | CPT/HCPCS: 77081 ==

== ENCOUNTER 2024-05-15 10:47 | Outpatient (AMB) | payer MEDICARE, SELFPAY ==
--- NOTE | 2024-05-15 11:13 | A.OFFVIS_ITS ---
Vital Signs 05/15/24 11:14 Height 4 ft 11 in Weight 176 lb 5.917 oz BMI 35.6 BP 126/68 Blood Pressure Location Lt brachial Position Sitting Pulse 77 Pulse Source Monitor Intake Visit Reasons: followup req by dr. turner Leaf Conditioner Required: Yes Leaf Conditioner Services: Leaf Conditioner Offered & Declined Accompanied by: Daughter Allergies morphine [Morphine] Allergy (Intermediate, Verified 05/01/24 09:04) TACHYCARDIA, ANXIETY oxycodone [Percocet] Allergy (Intermediate, Verified 05/01/24 09:04) Palpitations prednisone [PREDNISONE] Adverse Reaction (Intermediate, Verified 05/01/24 09:04) ANXIETY Medication List - Last Reconciled 05/15/24 by Rohan Singh MD acetaminophen 500 mg PO Q12H PRN albuterol sulfate 90 mcg/actuation (Ventolin HFA) 2 puffs inhalation Q4-6H PRN amlodipine 5 mg PO DAILY atorvastatin (Lipitor) 80 mg PO DAILY baclofen 10 mg PO BID bisacodyl (Dulcolax (bisacodyl)) 10 mg ID DAILY PRN blood sugar diagnostic (OneTouch Verio test strips) TEST BLOOD SUGAR THREE OR FOUR TIMES DAILY blood-glucose meter (OneTouch Verio Flex Meter) As directed blood-glucose meter,continuous (FreeStyle Collin 3 Theresa) As directed blood-glucose sensor (FreeStyle Collin 3 Sensor device) USE DIRECTED. CHANGE EVERY 14 DAYS budesonide 90 mcg/actuation (Pulmicort Flexhaler) 2 inhalations inhalation BID calcium citrate-vitamin D3 200 mg-6.25 mcg (250 unit) 2 tabs PO DAILY calcium polycarbophil (Fiber-Lax) 1,250 mg (2 x 625 mg) PO QAM cholecalciferol (vitamin D3) (Vitamin D3) 25 mcg PO QAM clopidogrel 75 mg PO DAILY cyclobenzaprine 5 mg PO TID PRN docusate sodium 200 mg (2 x 100 mg) PO BEDTIME ezetimibe 10 mg PO QAM ferrous sulfate 325 mg PO TID fluticasone propionate 110 mcg/actuation (Flovent HFA) 1 puff inhalation BID furosemide 20 mg PO DAILY insulin glargine (Lantus Solostar U-100 Insulin) 38 units subcut BEDTIME insulin lispro (Humalog KwikPen (U-100) Insulin) Sliding Scale 6-16 subcutaneously 3 times a day; lancets As directed lancets (TRUEplus Lancets) As directed to test blood sugar 3-4 times a day loratadine 10 mg PO QAM metoprolol tartrate 50 mg PO BID omeprazole 20 mg PO DAILY pen needle, diabetic As directed pioglitazone (Actos) 30 mg PO DAILY polyethylene glycol 3350 (Miralax) 17 grams PO DAILY 30 days semaglutide (Ozempic) 0.5 mg (0.736 mL) subcut QWEEK 4 weeks sennosides (senna) 8.6 mg PO DAILY PRN HPI Comments Details: Jayne returns for follow up regarding coronary artery disease. Previously going to [place]. She had PTCA/stenting of the mid LAD in 2005. At that time, she had 90% stenosis of small OM and otherwise noncritical diffuse disease of large OM; 60- 70% stenosis in the mid right coronary artery. Subsequently, had a nuclear stress test in 2010 which was apparently unremarkable. Multiple cardiovascular risk factors including diabetes, hypertension, dyslipidemia, among others. If said she is doing well. No new concerns. No cardiac symptoms. They do not know the medications as apparently they come in a pillbox. [facility] Medical History Abnormal Pap smear of cervix Osteoporosis Goiter Hyperparathyroidism Hypercalcemia Vitamin D deficiency HLD (hyperlipidemia) HTN (hypertension) T2DM (type 2 diabetes mellitus) On beta anurag at home Chronic constipation Diabetes Anemia GERD (gastroesophageal reflux disease) Sleep apnea Asthma CAD (coronary artery disease) Angina pectoris HTN (hypertension) Surgical History Hx of heart artery stent Hx of cholecystectomy History of esophagogastroduodenoscopy (EGD) H/O colonoscopy Family History Father Liver problem Mother Diabetes Obesity Social History Household Members Other:: With Housing: House Alcohol intake: never Patient Tobacco Use Status: Never used Tobacco Current occupational status: disabled Sexual orientation: Straight/Heterosexual Gender identity: Female Review of Systems Const Denies weakness ENT Denies dizziness Card Denies chest pain, Denies chest pain with activity, Denies syncope, Denies rapid heart rate, Denies pedal edema, Denies edema, Denies leg edema, Denies lightheadedness, Denies palpitations, Denies dyspnea, Denies dyspnea on exertion and Denies orthopnea Resp Denies cough, Denies dyspnea and Denies dyspnea on exertion GI Denies hematochezia and Denies change in stool character Musc Denies abnormal gait, Denies muscle cramps, Denies muscle weakness, Denies numbness, Denies radiating pain into limb and Denies tingling Neuro Denies abnormal gait, Denies dizziness, Denies syncope, Denies numbness, Denies tingling and Denies weakness Endo Denies palpitations Physical Exam Vital Signs: Last Vital Signs Pulse 77 05/15/24 11:14 BP 126/68 05/15/24 11:14 BMI result Body Mass Index 35.6 Const General: comfortable and no acute distress Orientation/consciousness: patient oriented x3 HEENT Other: Unremarkable Head: Yes normal to inspection Neck Neck: Yes normal visual inspection Chest Chest palpation & inspection: normal inspection of the chest Resp Auscultation: clear to auscultation bilaterally Cardio Palpation: normal PMI Heart sounds: S1 normal heart sound present, S2 normal heart sound present, no gallops, Murmur heart sound present systolic III/ and at the right sternal border and no rubs GI Palpation (GI): Soft to palpation Back/Spine/Pelvis Other: unremarkable Skin General skin exam: no rashes or lesions noted Neuro General: patient oriented x3 Extrem General: Yes normal to inspection Psych Mental Status: mental status grossly normal Office Procedures EKG Details: EKG with underlying sinus rhythm at 77/Min; no significant ST-[place]. [id number], Complete Assessment & Plan Assessment & Plan (1) Atherosclerotic cardiovascular disease: Code(s): I25.10 - Atherosclerotic heart disease of [place] coronary artery without angina pectoris Category: Medical Plan: Based on review of prior records, PTCA/stenting mid LAD 2005; other findings at that time include 90% stenosis of small OM branch and noncritical diffuse disease in the large OM; intermediate grade disease in mid RCA. Nuclear stress from 2010 unremarkable. Based on the extensive risk factor profile, myocardial perfusion imaging study ordered last year but not completed. Clinically however, she has got no symptom s at this time. Continue optimal medical therapy for stable coronary disease. (2) Non-rheumatic aortic stenosis: Code(s): I35.0 - Nonrheumatic aortic (valve) stenosis Category: Medical Plan: Mild aortic stenosis on last echocardiogram. We can repeat an echocardiogram to look for progression. (3) HTN (hypertension): Code(s): I10 - Essential (primary) hypertension Category: Medical Qualifiers: Hypertension type: unspecified Qualified Code(s): I10 - Essential (primary) hypertension Plan: Stable. (4) T2DM (type 2 diabetes mellitus): Code(s): E11.9 - Type 2 diabetes mellitus without complications Category: Medical Qualifiers: Diabetes mellitus complication status: with hyperglycemia Diabetes mellitus intermediate frame tender insulin use: with intermediate frame tender use Qualified Code(s): E11.65 - Type 2 diabetes mellitus with hyperglycemia; Z79.4 - intermediate (current) use of insulin Plan: Last hemoglobin A1c is 9.1 %. On insulin, pioglitazone, Ozempic. Coding Level of Care Code Est Pt Level 4 (38409) Complex EM visit Add On G2211 Diagnoses Atherosclerotic cardiovascular disease I25.10 Non-rheumatic aortic stenosis I35.0 Hypertension, unspecified type I10 Hypertension type: unspecified Type 2 diabetes mellitus with hyperglycemia, with long-term current use of insulin E11.65; Z79.4 Diabetes mellitus complication status: with hyperglycemia Diabetes mellitus intermediate frame tender insulin use: with intermediate frame tender use CPT Codes EKG - CPT: 92185-[id number], Complete ([id number])
[2024-05-15 11:14] VITALS: BP 126/68; PULSE 77; BMI 35.6
--- OUTSIDE RECORDS SUMMARY | 2024-05-15 12:55 | XMS_ITS ---
Author Name Mr. Arlen Márquez Address [address] [place] [address] Phone [phone] [facility] Care Team Providers Care Clinical Staff Rn Name Role Phone Micah Judge Unavailable [phone] Reason for Referral Not Available Allergies, adverse [...] 2021-11-04 No Data Available OneTouch Delica Plus [id number] Miscellaneous TEST BLOOD SUGAR THREE OR FOUR [...] of Service Diagnosis/Co mplaint No Data Available [facility], ([place]) 07/12/2022 Type 2 diabetes mellitus wit h diabetic chronic kidney diseaseChronic kidney disease, stage 3bLong term (current) use of insulinMorbid (severe) obesity due to excess caloriesBody mass index (BMI) 40.0-44.9, adultOther specified health statusConstipation, unspecifiedProblems related to health literacyPrsnl hx of TIA (TIA), and cereb infrc w/o resid deficits No Data Available [facility], [facility]) 07/12/2022 No Data Available [facility], [facility]) 07/12/2022 No Data Available [facility], [facility]) 07/12/2022 No Data Available [facility], [facility]) 07/12/2022 No Data Available [facility] [place] 07/12/2022 No Data Available [facility] [place] 07/[place]/2022 Morbid (severe) obesity due to excess caloriesBody mass index (BMI) 40.0-44.9, adultType 2 diabetes mellitus with diabetic chronic kidney diseaseChronic kidney disease, stage 3bPrsnl hx of TIA (TIA), and cereb infrc w/o resid deficitsOther specified health status No Data Available [facility] [place] 07/22/2022 Vital Signs Date of Collection Vitals 2022-07-12 11:38:39 Height - 147.32 cmWe ight - 87.09 kgBody Mass Index (BMI) - 40.13 kg/m2 Social History Sex Female History of Procedures Procedures Service Procedure code Service date Servicing provider Phone# No Data Available [id number] 2022-07-12 No Data Available No Data Available [...] le No Data Available No Data Available [id number] 2022-07-22 No Data Available No Data Available [...] modifier 95)Continue to see PCP. Follow-up with [facility] as needed for any acute [...]
--- OUTSIDE RECORDS SUMMARY | 2024-05-15 12:55 | XMS_ITS | Encounter Summary ---
Author Organization [facility] Address [address] [place] [address] Phone Care Team Providers Care Traffic Court Referee Name Role Phone James Grant MD Primary Care Provider Unav ailable Reason for Visit * Reason Comments Med Refill Encounter Details Date Type Department Care Team (Late st Contact Info) Description 12/14/2022 Refill [facility] [address] [place] [address] Osmany Leung MD Social History [...] on filedocumented in this encounter Care Teams Traffic Court Referee Relationship Specialty Start Date End Date James Grant MD PCP - General 03/23/20 documented as of this encounter
--- OUTSIDE RECORDS SUMMARY | 2024-05-15 12:56 | XMS_ITS | Clinical Summary ---
Author Organization [facility] Address [address] [place] [address] Phone Care Team Providers Care Veteran Appeals Reviewer Name Role Phone James Grant MD Primary [...] patient's age to complete this topic Insurance [employer] [place] [id number] [employer] Care Teams Veteran Appeals Reviewer Relationship Specialty Start Date End Date James Grant MD PCP - General 03/23/20
== END 2024-05-15 11:47 | disposition home or self-care (01) ==
PROVIDERS: PCP Internal Medicine; Visit Provider Internal Medicine
DX: I25.10 Atherosclerotic heart disease of native coronary artery without angina pectoris (principal); I35.0 Nonrheumatic aortic (valve) stenosis; I10 Essential (primary) hypertension; E11.65 Type 2 diabetes mellitus with hyperglycemia; Z79.4 Long term (current) use of insulin
CPT/HCPCS: 93010; 99214; G2211

== ENCOUNTER 2024-05-30 10:25 | Outpatient (REF) | payer OTHER, SELFPAY ==
--- NOTE | ~2024-05-30 | XR_ITS ---
EXAMINATION: XR KNEE, LEFT CLINICAL INFORMATION: knee pain COMPARISON: None available. TECHNIQUE: Four views of the left knee. FINDINGS: Is mild loss of medial and patellofemoral compartment joint space. There is superior patellar spurring. No visible acute fracture, dislocation seen. There is no abnormal joint effusion. No loose bodies. The soft tissues are normal. XR/XR knee LT 4V IMPRESSION: Degenerative arthritic changes medial and patellar compartments. No visible acute fracture or dislocation seen Electronically signed by: Winston Villagran MD 05/30/2024 12:30 PM EDT
--- NOTE | ~2024-05-30 | XR_ITS ---
EXAMINATION: XR KNEE, RIGHT CLINICAL INFORMATION: knee pain COMPARISON: None available. TECHNIQUE: Four views of the right knee. FINDINGS: Joint space narrowing involving the lateral compartment. Marginal osteophyte formation and lateral tibial plateau. Mild sclerosis of the articular surface in the lateral tibial plateau. No acute cortical disruption or malalignment. No suprapatellar bursa joint effusion. Vascular complications. XR/XR knee RT 4V IMPRESSION: Moderate lateral compartment osteoarthrosis. Atherosclerosis disease, peripheral Electronically signed by: Brian Witt MD 05/30/2024 12:29 PM EDT
--- OUTSIDE RECORDS SUMMARY | 2024-05-30 11:54 | XMS_ITS | Patient Health Record ---
Author Organization [facility] Address [address] [place] [address] Care Team Providers Care Physical Testing Supervisor Name Role Phone Rudy Ashraf MD, James Primary Care Provide r Unavailable Moris Duron Jr Unavailable Reason For Referral No Information Plan Of Treatment No Information Insurance Providers Payer Name Payer Address Payer Phone Subscriber Number Group Number Insured Name Patient Relationship to Insured Coverage Start Date Coverage End Date MEDICARE OF [place] [address] [place] [id number] STEPHANI JOE Self - patient is the insured MEDICAID OF [facility] [address] [place] [address] [id number] STEPHANI JOE Self - patient is the insured
--- OUTSIDE RECORDS SUMMARY | 2024-05-30 11:54 | XMS_ITS | Clinical Summary ---
Author Organization [facility] Address [address] [place] [address] Phone Care Team Providers Care Testboard Operator Name Role Phone James Grant MD Primary [...] patient's age to complete this topic Insurance [employer] [place] [id number] [employer] Care Teams Testboard Operator Relationship Specialty Start Date End Date James Grant MD PCP - General 03/23/20
--- OUTSIDE RECORDS SUMMARY | 2024-05-30 11:54 | XMS_ITS ---
Author Name Mr. Arlen Márquez Address [address] [place] [address] Phone [phone] [facility] Care Team Providers Care [employer] Name Role Phone Micah Judge Unavailable [phone] Reason for Referral Not Available Allergies, adverse [...] 2021-11-04 No Data Available OneTouch Delica Plus [id number] Miscellaneous TEST BLOOD SUGAR THREE OR FOUR [...] of Service Diagnosis/Co mplaint No Data Available [facility], [place] 07/12/2022 Type 2 diabetes mellitus wit h diabetic chronic kidney diseaseChronic kidney disease, stage 3bLong term (current) use of insulinMorbid (severe) obesity due to excess caloriesBody mass index (BMI) 40.0-44.9, adultOther specified health statusConstipation, unspecifiedProblems related to health literacyPrsnl hx of TIA (TIA), and cereb infrc w/o resid deficits No Data Available [facility], [facility]) 07/12/2022 No Data Available [facility], [facility]) 07/12/2022 No Data Available [facility], [facility]) 07/12/2022 No Data Available [facility], [facility]) 07/12/2022 No Data Available [facility] [place] 07/12/2022 No Data Available [facility] [place] 07/22/2022 Morbid (severe) obesity due to excess caloriesBody mass index (BMI) 40.0-44.9, adultType 2 diabetes mellitus with diabetic chronic kidney diseaseChronic kidney disease, stage 3bPrsnl hx of TIA (TIA), and cereb infrc w/o resid deficitsOther specified health status No Data Available [facility], [place] 07/22/2022 Vital Signs Date of Collection Vitals 2022-07-12 11:38:39 Height - 147.32 cmWe ight - 87.09 kgBody Mass Index (BMI) - 40.13 kg/m2 Social History Sex Female History of Procedures Procedures Service Procedure code Service date Servicing provider Phone# No Data Available [id number] 2022-07-12 No Data Available No Data Available [...] le No Data Available No Data Available [id number] 2022-07-22 No Data Available No Data Available [...] modifier 95)Continue to see PCP. Follow-up with [facility] as needed for any acute or disease [...]
--- OUTSIDE RECORDS SUMMARY | 2024-05-30 11:54 | XMS_ITS | Encounter Summary ---
Author Organization [facility] Address [address] [place] [address] Phone Care Team Providers Care Director Of Restaurant Operations Name Role Phone James Grant MD Primary Care Provider Unav ailable Reason for Visit * Reason Comments Med Refill Encounter Details Date Type Department Care Team (Late st Contact Info) Description 12/14/2022 Refill [facility] [address] [place] [address] Osmany Leung MD Social History [...] on filedocumented in this encounter Care Teams Director Of Restaurant Operations Relationship Specialty Start Date End Date James Grant MD PCP - General 03/23/20 documented as of this encounter
== END 2024-05-30 10:26 | disposition home or self-care (01) ==
LOC: HO.HHCX 10:25
PROVIDERS: Visit Provider Internal Medicine
DX: M25.562 Pain in left knee (principal); M25.561 Pain in right knee
CPT/HCPCS: 73564

== ENCOUNTER → 2024-05-30 10:25 | Outpatient (BNV) | payer OTHER, SELFPAY | PROVIDERS: Visit Provider Radiology Diagnostic Radiology | DX: M25.562 Pain in left knee (principal); M25.561 Pain in right knee | CPT/HCPCS: 73564 ==

== ENCOUNTER 2024-06-05 10:19 | Outpatient (AMB) | payer OTHER, SELFPAY ==
--- NOTE | 2024-06-05 10:25 | A.OFFVIS_ITS ---
Vital Signs 06/05/24 10:27 Height 4 ft 11.06 in Weight 178 lb 9.191 oz BMI 36.0 BP 124/58 L Blood Pressure Location Lt brachial Position Sitting Pulse 75 Pulse Source Pulse Oximeter Pulse Oximetry (%) 97 Oxygen Delivery Method Room Air Intake Visit Reasons: Osteoporosis Intake Note: Patient present today for Osteoporosis follow up Blind Installer Required: Yes Blind Installer Language: Vp Of [employer] Marketing Services: Blind Installer Offered & Declined Accompanied by: Daughter Allergies morphine [Morphine] Allergy (Intermediate, Verified 06/05/24 10:28) TACHYCARDIA, ANXIETY oxycodone [Percocet] Allergy (Intermediate, Verified 06/05/24 10:28) Palpitations prednisone [PREDNISONE] Adverse Reaction (Intermediate, Verified 06/05/24 10:28) ANXIETY Medication List - Last Reconciled 06/05/24 by Zev Phan MD acetaminophen 500 mg PO Q12H PRN albuterol sulfate 90 mcg/actuation (Ventolin HFA) 2 puffs inhalation Q4-6H PRN amlodipine 5 mg PO DAILY atorvastatin (Lipitor) 80 mg PO DAILY baclofen 10 mg PO BID bisacodyl (Dulcolax (bisacodyl)) 10 mg MS DAILY PRN blood sugar diagnostic (OneTouch Verio test strips) TEST BLOOD SUGAR THREE OR FOUR TIMES DAILY blood-glucose meter (OneTouch Verio Flex Meter) As directed blood-glucose meter,continuous (FreeStyle Collin 3 [place]) As directed blood-glucose sensor (FreeStyle Collin 3 Sensor device) USE DIRECTED. CHANGE EVERY 14 DAYS budesonide 90 mcg/actuation (Pulmicort Flexhaler) 2 inhalations inhalation BID calcium citrate-vitamin D3 200 mg-6.25 mcg (250 unit) 2 tabs PO DAILY calcium polycarbophil (Fiber-Lax) 1,250 mg (2 x 625 mg) PO QAM cholecalciferol (vitamin D3) (Vitamin D3) 25 mcg PO QAM clopidogrel 75 mg PO DAILY cyclobenzaprine 5 mg PO TID PRN docusate sodium 200 mg (2 x 100 mg) PO BEDTIME ezetimibe 10 mg PO QAM ferrous sulfate 325 mg PO TID fluticasone propionate 110 mcg/actuation (Flovent HFA) 1 puff inhalation BID furosemide 20 mg PO DAILY insulin glargine (Lantus Solostar U-100 Insulin) 38 units subcut BEDTIME insulin lispro (Humalog KwikPen (U-100) Insulin) Sliding Scale 6-16 subc utaneously 3 times a day; lancets As directed lancets (TRUEplus Lancets) As directed to test blood sugar 3-4 times a day loratadine 10 mg PO QAM metoprolol tartrate 50 mg PO BID omeprazole 20 mg PO DAILY pen needle, diabetic As directed pioglitazone (Actos) 30 mg PO DAILY polyethylene glycol 3350 (Miralax) 17 grams PO DAILY 30 days semaglutide (Ozempic) 0.5 mg (0.736 mL) subcut QWEEK 4 weeks sennosides (senna) 8.6 mg PO DAILY PRN HPI Comments Details: This is a 69-year-old female followed by endocrinology for management of diabetes. Today's visit focus is around hypercalcemia. In the past, patient had elevated calcium levels with elevation in PTH. Further workup revealed low bone mass but isolated forearm osteoporosis which has been stable. 24 hour urine collection was quite low suggesting the possibility of FHH. However, there is no family history and calcium levels have fluctuated from normal since 2021 making the diagnosis of FHH unlikely No additional symptoms linked to hyperparathyroidism, such as kidney stones or neuropsychiatric changes, have been reported. PFSH Medical History Abnormal Pap smear of cervix Osteoporosis Goiter Hyperparathyroidism Hypercalcemia Vitamin D deficiency HLD (hyperlipidemia) HTN (hypertension) T2DM (type 2 diabetes mellitus) On beta anurag at home Chronic constipation Diabetes Anemia GERD (gastroesophageal reflux disease) Sleep apnea Asthma CAD (coronary artery disease) Angina pectoris HTN (hypertension) Surgical History Hx of heart artery stent Hx of cholecystectomy History of esophagogastroduodenoscopy (EGD) H/O colonoscopy Family History Father Liver problem Mother Diabetes Obesity Social History Household Members Other:: With Housing: House Alcohol intake: never Patient Tobacco Use Status: Never used Tobacco Current occupational status: disabled Sexual orientation: Straight/Heterosexual Gender identity: Female Physical Exam Vital Signs: Last Vital Signs Pulse 75 06/05/24 10:27 BP 124/58 L 06/05/24 10:27 Pulse Ox 97 06/05/24 10:27 Oxygen Delivery Method Room Air 06/05/24 10:27 BMI result Body Mass Index 36.0 Assessment & Plan Assessment & Plan (1) Hypercalcemia: Code(s): E83.52 - Hypercalcemia Category: Medical Plan: This 69-year-old female with chronically elevated mild hypercalcemia as well as intermittently elevated PTH levels. Possible etiologies include spurious elevation due to lab error, mild primary hyperparathyroidism with cortical bone involvement in the wrist or less likely FHH. Plan is to repeat calcium, albumin, 25 hydroxy vitamin-D, PTH at lab [facility] ( [facility] ) to verify. If results continue to show PTH mediated hypercalcemia, may repeat 24 hour urine for calcium and creatinine. If results are consistent with primary hyperparathyroidism, patient may be a candidate for surgical exploration considering the very low bone density in the forearm 1. Primary Hyperparathyroidism: The elevation in calcium and parathyroid hormone levels points towards primary hyperparathyroidism. The plan includes repeating tests in a more controlled setting to verify these findings. Continuous monitoring will ensue, with potential surgical intervention discussed should levels remain elevated. Genetic implications were considered, and the need for further testing will depend on subsequent lab outcomes. The patient had an opportunity to ask questions regarding treatment plan. The patient expressed understanding and agreement with the above treatment plan. I discussed with the patient the possibility of primary hyperparathyroidism and its implications. We reviewed the physiological role of the parathyroid glands and how abnormalities may affect calcium levels. I explained the potential necessity and benefits of parathyroid surgery if the elevated levels persist to prevent bone density complications. Genetic testing was mentioned but determined to be non-urgent owing to financial considerations. We considered [facility] reference labs for repeat tests and reviewed procedures related to specimen collection. The timeline for follow-up was established, and instructions for lab visits were provided. Patient was informed and verbally consented to the use of an ambient scribe for clinic note documentation during this visit. Orders: Orders Vitamin D 25-OH Total Today E83.52 - Hypercalcemia Parathyroid Hormone Intact Today E83.52 - Hypercalcemia Calcium Today E83.52 - Hypercalcemia Albumin Level Today E83.52 - Hypercalcemia Coding Level of Care Code Est Pt Level 3 (93915) Diagnoses Hypercalcemia E83.52
[2024-06-05 10:27] VITALS: BP 124/58; PULSE 75; O2SAT 97; BMI 36.0
--- OUTSIDE RECORDS SUMMARY | 2024-06-05 12:03 | XMS_ITS | Encounter Summary ---
Author Organization [employer] [facility] Address [address] [place] [address] Care Team Providers Care Bung Remover Name Role Phone James Flores MD Primary Care Provide r Reason for Visit * Reason Comments Med Refill Encounter Details Date Type Department Care Team (Late st Contact Info) Description 05/20/2024 Refill [facility] MEDICINE [address] [place] [address] James Flores MD [address] [place] [address] Social History Tobacco Use Types Packs/Day Years [...] Care Team (Late st Contact Info) Description 09/03/2024 11:15 AM EDT Office Visit [facility] MEDICINE [address] [place] [address] James Flores MD [address] [place] [address] documented as of this encounter Visit Diagnoses Not on filedocumented in this encounter Additional Health Concerns Assessment Noted Time PHQ-9 Depression Total Score: 0 01/30/20 24 10:37 AM EST documented as of this encounter Care Teams Bung Remover Relationship Specialty Start Date End Date James Flores MD [address] [place] [address] PCP - General Internal Medicine 02/04/14 documented as of this encounter
--- OUTSIDE RECORDS SUMMARY | 2024-06-05 12:03 | XMS_ITS | Encounter Summary ---
Author Organization [employer] Address [address] [place] [address] Care Team Providers Care Cooking Teacher Name Role Phone James Flores MD Primary Care Provide r Encounter Details Date Type Department Care Team (Late st Contact Info) Description 01/09/2023 Orders Only [facility] MED & PEDS [address] [place] [address] Jaja Hammond LPN Social History Tobacco Use [...] Description 09/03/2024 11:15 AM EDT Office Visit [facility] MEDICINE [address] [place] [address] James Flores MD [address] [place] [address] documented as of this encounter Visit Diagnoses Not on filedocumented in this encounter Care Teams Cooking Teacher Relationship Specialty Start Date End Date James Flores MD [address] [place], [place] [phone] PCP - General Internal Medicine 02/04/14 documented as of this encounter
--- OUTSIDE RECORDS SUMMARY | 2024-06-05 12:03 | XMS_ITS | Encounter Summary ---
Author Organization [employer] [facility] Address [address] [facility] [address] 7t [place] [address] Care Team Providers Care Tallier Name Role Phone James Flores MD Primary Care Provide r Reason for Visit * Reason Onset Date Comments Durable Medical Equipment 09/27/2023 Encounter Details Date Type Department Care Team (Late st Contact Info) Description 09/27/2023 Telephone [facility] MEDICINE [address] [place] [address] James Flores MD [address] [place], [place] [phone] Durable Medical Equipment Social History Tobacco Use [...] 1 flip pillow DME Please contact at [phone] * Telephone Encounter - Fernando Christie - 09/27/2023 2:40 PM EDT Tc from pt 10 in 1 flip pillow due to issues sleeping. Pt would like script to be faxed to [facility]. If any questions you can contact pt at [phone]. documented in this encounter Plan of Treatment Upcoming Encounters Date Type Department Care Team (Late st Contact Info) Description 09/03/2024 11:15 AM EDT Office Visit [facility] MEDICINE [address] [place] [phone] James Flores MD [address] [place] [address] documented as of this encounter Visit Diagnoses Not on filedocumented in this encounter Care Teams Tallier Relationship Specialty Start Date End Date James Flores MD [address] [place] [address] PCP - General Internal Medicine 02/04/14 documented as of this encounter
--- OUTSIDE RECORDS SUMMARY | 2024-06-05 12:03 | XMS_ITS | Encounter Summary ---
Author Organization [employer] [facility] Address [address] [place] [address] 7t [place] [address] Care Team Providers Care Optometric Technician Name Role Phone James Flores MD Primary Care Provide r Reason for Visit * Reason Comments Med Refill Encounter Details Date Type Department Care Team (Late st Contact Info) Description 08/21/2022 Refill [facility] MEDICINE [address] [place] [address] James lFores MD [address] [place], [place] [phone] Social History Tobacco Use Types Packs/Day Years [...] Description 09/03/2024 11:15 AM EDT Office Visit [facility] MEDICINE [address] [place], [place] [phone] James Flores MD [address] [place], [place] [phone] documented as of this encounter Visit Diagnoses Not on filedocumented in this encounter Care Teams Optometric Technician Relationship Specialty Start Date End Date James Flores MD [address] [place] [address] PCP - General Internal Medicine 02/04/14 documented as of this encounter
--- OUTSIDE RECORDS SUMMARY | 2024-06-05 12:03 | XMS_ITS | Encounter Summary ---
Author Organization [facility] Address [address] [facility] [address] 7t [place] [address] Care Team Providers Care Eligibility Counselor Name Role Phone James Flores MD Primary Care Provide r Reason for Visit * Reason Onset Date Comments Nurse Triage 03/18/2024 Encounter Details Date Type Department Care Team (Late st Contact Info) Description 03/18/2024 Telephone [facility] MEDICINE [address] [place] [address] James Flores MD [address] [place] [address] Nurse Triage Social History Tobacco Use Types [...] 03/18/2024 11:50 AM EST Triage call with [facility] [place] [id number]. Pt reports continual coughing with cold symptoms. Pt was seen in [facility] 02/29/24 for cough and exacerbation of asthma. Pt reports has been using inhaler and nebulizer as prescribed though not every day.Pt denies having difficulty breathing. Pt requests to see provider again due to continuation of cough and cold symptoms neg for fever. Pt is advised to return to [facility] today open till 8pm and Pt agreeswith this disposition. Pt is requesting what medication could be taken for cough , Pt is taking BP medications and is advised to ask provider when seen in [facility] and Pt agrees. Insurance is verified [...] 11:15 AM EDT Office Visit [facility] MEDICINE [address] [place] [address] James Flores MD [address] [place] [address] documented as of this encounter Visit Diagnoses Not on filedocumented in this encounter Additional Health Concerns Assessment Noted Time PHQ-9 Depression Total Score: 0 01/30/20 24 10:37 AM EST documented as of this encounter Care Teams Eligibility Counselor Relationship Specialty Start Date End Date James Flores MD [address] [place] [address] PCP - General Internal Medicine 02/04/14 documented as of this encounter
--- OUTSIDE RECORDS SUMMARY | 2024-06-05 12:03 | XMS_ITS | Encounter Summary ---
Author Organization [employer] [facility] Address [address] [facility] [address]t [place] [address] Care Team Providers Care Manuscript Reader Name Role Phone James Flores MD Primary Care Provide r Reason for Visit * Reason Comments Med Refill Encounter Details Date Type Department Care Team (Late st Contact Info) Description 09/04/2023 Refill [facility] MEDICINE [address] [place] [address] Name, MD Loki [address] [place] [address] Gastroesophageal reflux disease without esophagitis Social History [...] Description 09/03/2024 11:15 AM EDT Office Visit [facility] MEDICINE [address] [place] [address] James Flores MD [address] [place] [address] documented as of this encounter Visit Diagnoses Diagnosis Gastroesophageal reflux disease without esophagitis Esophageal reflux documented in this encounter Care Teams Manuscript Reader Relationship Specialty Start Date End Date James Flores MD [address] [place] [address] PCP - General Internal Medicine 02/04/14 documented as of this encounter
--- OUTSIDE RECORDS SUMMARY | 2024-06-05 12:03 | XMS_ITS | Encounter Summary ---
Author Organization [employer] Address [address] [facility] [address]t [place] [address] Care Team Providers Care Sales Support Representative Name Role Phone James Flores MD Primary Care Provide r Reason for Visit * Reason Comments Med Refill Encounter Details Date Type Department Care Team (Late st Contact Info) Description 05/10/2024 Refill [facility] [address] [place] [address] Coco Montiel NP [address] [place] [address] Mild intermittent asthma without complication Social History Tobacco Use Types Packs/Day Years [...] Description 09/03/2024 11:15 AM EDT Office Visit [facility] [address] [place] [address] James Flores MD [address] [place] [address] documented as of this encounter Visit Diagnoses Diagnosis Mild intermittent asthma without complication documented in this encounter Additional Health Concerns Assessment Noted Time PHQ-9 Depression Total Score: 0 01/30/20 24 10:37 AM EST documented as of this encounter Care Teams Sales Support Representative Relationship Specialty Start Date End Date James Flores MD [address] [place] [address] PCP - General Internal Medicine 02/04/14 documented as of this encounter
--- OUTSIDE RECORDS SUMMARY | 2024-06-05 12:03 | XMS_ITS | Encounter Summary ---
Author Organization [employer] [facility] Address [address] [place] [address] Care Team Providers Care Leaf Tier Name Role Phone James Flores MD Primary Care Provide r Encounter Details Date Type Department Care Team (Latest Contact Info) Description 05/30/2024 Travel Social History Tobacco Use Types Packs/Day Years Used Date Smoking Tobacco: Never Passive Smoke Exposure: Never Smokeless Tobacco: Never Depression Answer Date Recorded Patient Health Questionnaire-9 Score 0 01/30/2024 Patient Health Questionnaire-9 Score 0 01/30/2024 Last PHQ-9: Questionnaire Data Not on file 1 03/31/2023 Housing Stability Answer Date Recorded What is your housing situation today? I have maría noriega 05/30/[address] you li ve. Do you have problems with any of the following? Oven or stove not working 05/30/2024 Food Insecurity Answer Date Recorded Within the past 12 months, y ou worried that your food would run out before you got money to buy more: Never True 05/30/2024 Within the past 12 months,th e food you bought just didn't last and you didn't have enough money to get more: Never True Transportation Answer Date Recorded In the past 12 months, has l ack of transportation kept you from medical appts, meetings, work or from getting things needed for daily living? No 05/30/2024 Utilities Answer Date Recorded In the past 12 months, has t he electric, gas,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 threatened to shut off services in your home? No 05/30/2024 Depression Answer Date Recorded Patient Health Questionnaire-2 Score 0 01/30/2024 Internet Access Answer Date Recorded Internet Access Q1 Yes 05/30/2024 Internet Access Q2 I do not want or need it 05/12 Comments Unknown Sex and Gender Information Value [...] Description 09/03/2024 11:15 AM EDT Office Visit [facility] MEDICINE [address] [place] [address] James Flores MD [address] [place] [address] documented as of this encounter Visit Diagnoses Not on filedocumented in this encounter Additional Health Concerns Assessment Noted Time PHQ-9 Depression Total Score: 0 01/30/20 24 10:37 AM EST documented as of this encounter Care Teams Leaf Tier Relationship Specialty Start Date End Date James Flores MD [address] [place] [address] PCP - General Internal Medicine 02/04/14 documented as of this encounter
--- OUTSIDE RECORDS SUMMARY | 2024-06-05 12:03 | XMS_ITS | Encounter Summary ---
Author Organization [facility] Address [address] [facility] 7t [place] [address] Care Team Providers Care Greenhouse Staff Name Role Phone James Flores MD Primary Care Provide r Encounter Details Date Type Department Care Team ([facility] st Contact Info) Description 01/11/2024 Telephone [facility] [address] [place], [place] [phone] James Flores MD [address] [place], [place] [phone] Social History Tobacco Use Types Packs/Day Years [...] Description 09/03/2024 11:15 AM EDT Office Visit [facility] [address] [place] [address] James Flores MD [address] [place] [address] documented as of this encounter Visit Diagnoses Not on filedocumented in this encounter Care Teams Greenhouse Staff Relationship Specialty Start Date End Date James Flores MD [address] [place] [id number] PCP - General Internal Medicine 02/04/14 documented as of this encounter
--- OUTSIDE RECORDS SUMMARY | 2024-06-05 12:03 | XMS_ITS | Encounter Summary ---
Author Organization [facility] Address [address] [facility] 7t [place] [address] Care Team Providers Care Crank Hand Name Role Phone James Flores MD Primary Care Provide r Reason for Visit * Reason Comments Med Refill Encounter Details Date Type Department Care Team (Late st Contact Info) Description 08/27/2023 Refill [facility] [address] [place] [address] Name, MD Loki [address] [place] [address] Gastroesophageal reflux disease without esophagitis Social History [...] Description 09/03/2024 11:15 AM EDT Office Visit [facility] [address] [place] [address] James Flores MD [address] [place] [address] documented as of this encounter Visit Diagnoses Diagnosis Gastroesophageal reflux disease without esophagitis Esophageal reflux documented in this encounter Care Teams Crank Hand Relationship Specialty Start Date End Date James Flores MD [address] [place] [id number] PCP - General Internal Medicine 02/04/14 documented as of this encounter
--- OUTSIDE RECORDS SUMMARY | 2024-06-05 12:03 | XMS_ITS | Encounter Summary ---
Author Organization [facility] Address [address] [facility] 7t [place] [address] Care Team Providers Care Scientific Process Operator Name Role Phone James Flores MD Primary Care Provide r Reason for Visit * Reason Onset Date Comments Chart Prep 05/22/2024 Encounter Details Date Type Department Care Team (Late st Contact Info) Description 05/22/2024 Telephone [facility]INE [address] [place] [address] James Flores MD [address] [place] [address] Chart Prep Social History Tobacco Use Types Packs/Day Years [...] encounter Miscellaneous Notes * Telephone Encounter - Tierra Mckay [place] - 05/22/2024 11:49 AM EDT Chart Prep Labs: not applicable Images: not applicable Vaccines due: Covid Due, Tdap Due, PCV20 Due, RSV in Pharmacy Due, and Shingles in pharmacy Due Referrals: Not Applicable Screenings: Eye Exam Overdue care gaps: Glucose and SDOH Chart prep for upcoming appt with Dr.Esparza jamil. LB documented in this encounter Plan of Treatment Upcoming Encounters Date Type Department Care Team (Late st Contact Info) Description 09/03/2024 11:15 AM EDT Office Visit [facility] [address] [place] [address] James Flores MD [address] [place] [address] documented as of this encounter Visit Diagnoses Not on filedocumented in this encounter Additional Health Concerns Assessment Noted Time PHQ-9 Depression Total Score: 0 01/30/20 10:37 AM EST documented as of this encounter Care Teams Scientific Process Operator Relationship Specialty Start Date End Date James Flores MD [address] [place] [address] PCP - General Internal Medicine 02/04/14 documented as of this encounter
--- OUTSIDE RECORDS SUMMARY | 2024-06-05 12:03 | XMS_ITS | Encounter Summary ---
Author Organization [facility] Address [address] [facility] 7t [place] [address] Care Team Providers Care Waiter/Waitress Cabin Class Name Role Phone James Flores MD Primary Care Provide r Reason for Visit * Reason Comments Med Refill Encounter Details Date Type Department Care Team (Late st Contact Info) Description 05/23/2024 Refill [facility] MED[facility]INE [address] [place] [address] James Flores MD [address] [place], [place] [phone] Chronic anemia Social History Tobacco Use Types [...] Description 09/03/2024 11:15 AM EDT Office Visit [facility] MED[facility]INE [address] [place] [address] James Flores MD [address] [place] [address] documented as of this encounter Visit Diagnoses Diagnosis Chronic anemia Unspecified anemia documented in this encounter Additional Health Concerns Assessment Noted Time PHQ-9 Depression Total Score: 0 01/30/20 24 10:37 AM EST documented as of this encounter Care Teams Waiter/Waitress Cabin Class Relationship Specialty Start Date End Date James Flores MD [address] [place] [address] PCP - General Internal Medicine 02/04/14 documented as of this encounter
--- OUTSIDE RECORDS SUMMARY | 2024-06-05 12:03 | XMS_ITS | Encounter Summary ---
Author Organization [facility] Address [address] [facility] 7[address] [place] [address] Care Team Providers Care Bean Picker Machine Operator Name Role Phone James Flores MD Primary Care Provide r Encounter Details Date Type Department Care Team (Late st Contact Info) Description 06/14/2022 Orders Only [facility] [address] [place], [place] [phone] Jaja Hammond LPN Social History Tobacco Use [...] Visit [facility] MEDICINE [address] [place], [place] [phone] James Flores MD [address] [place] [address] documented as of this encounter Visit Diagnoses Not on filedocumented in this encounter Care Teams Bean Picker Machine Operator Relationship Specialty Start Date End Date James Flores MD [address] [place] [id number] PCP - General Internal Medicine 02/04/14 documented as of this encounter
--- OUTSIDE RECORDS SUMMARY | 2024-06-05 12:03 | XMS_ITS | Encounter Summary ---
Author Organization [employer] [facility] Address [address] [facility] 7t [place] [address] Care Team Providers Care Credit Review Officer Name Role Phone James Flores MD Primary Care Provide r Reason for Visit * Reason Comments Care Coordination CHW outreach for SDO H housing search-referral completed Encounter Details Date Type Department Care Team (Latest Contact Info) Description 05/30/2024 Patient Outreach [facility] MEDICINE [address] [place] [address] James Flores MD [address] [place] [address] Care Coordination ([facility] outreach for SDOH housing search-referral completed ) Social History Tobacco Use Types Packs/Day Years Used Date Smoking Tobacco: Never Passive Smoke Exposure: Never Smokeless Tobacco: Never Depression Answer Date Recorded Patient Health Questionnaire-9 Score 0 01/30/2024 Patient Health Questionnaire-9 Score 0 01/30/2024 Last PHQ-9: Questionnaire Data Not on file 1 03/31/2023 Housing Stability Answer Date Recorded What is your housing situation today? I have maría sing 05/30/[address] you li [...] AM EDT documented as of this encounter Progress Notes * Henrry Rush - 05/30/2024 11:27 AM EDT CHW Henrry Rush, placed outbound call to patient for assistance with SDOH as a referral was received by the provider. Patient's name and were confirmed. Patient screened positive for the following [facility] housing insecurities. Patient states is staying with her friend but is searching for her own apartment. CHW referral patient to the list of application mail out to her address on file. Patient verbalizes understanding, and able to agree with plan to follow up herself. Patient educated on extended clinic hours on Mondays through Wednesdays, and Walk-In Urgent Care Located in [facility]. Patient provided with after-hours line for [facility], , which offer night time triage service and option to transfer to nutritionalist provider if needed. documented in this encounter Plan of Treatment Upcoming Encounters Date Type Department Care Team ([facility] st Contact Info) Description 09/03/2024 11:15 AM EDT Office Visit [facility] MEDICINE [address] [place] [phone] James Flores MD [address] [place] [address] documented as of this encounter Visit Diagnoses Not on filedocumented in this encounter Additional Health Concerns Assessment Noted Time PHQ-9 Depression Total Score: 0 01/30/20 24 10:37 AM EST documented as of this encounter Care Teams Credit Review Officer Relationship Specialty Start Date End Date James Flores MD [address] [place] [address] PCP - General Internal Medicine 02/04/14 documented as of this encounter
--- OUTSIDE RECORDS SUMMARY | 2024-06-05 12:03 | XMS_ITS | Encounter Summary ---
Author Organization [facility], Formerly [facility] Address [address] [facility] [address] [place] [address] Care Team Providers Care Coil Connector Name Role Phone James Flores MD Primary Care Provide r Reason for Referral * Consultation (Routine) - Authorized Specialty Diagnoses / Procedures Referred By Contac t Referred To Contact Orthopaedic Surgery Diagnoses Acute pain of both knees James Flores MD [address] [place] [address] Phone: tel: fax: [facility] [address] [place] [address] Phone: tel: Referral ID Status Reason Start Date Expiration Date Visits Requested Visits Authorized [id number] Authorized Specialty Services Required 05/30/2024 05/30/2025 1 1 Reason for Visit * Reason Comments Diabetes Hypertension Knee Pain Encounter Details Date Type Department Care Team (Late st Contact Info) Description 05/30/2024 9:15 AM EDT Office Visit [facility] [address] [place] [address] James Flores MD [address] [place] [address] Type 2 diabetes mellitus with stage 3a chronic kidney disease, with long-term current use of insulin ([facility]) (Primary Dx); Primary hypertension; Mixed hyperlipidemia; Coronary artery disease involving sun'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; Severe obesity (CMS/HCC); Dietary counseling; Exercise counseling; History of CVA (cerebrovascular accident); Age-related osteoporosis without current pathological fracture; Acute pain of both knees; Encounter for immunization Social History Tobacco Use Types Packs/Day Years [...] AM EDT documented as of this encounter Last Filed Vital Signs Vital Sign Reading Time Taken Comments Blood Pressure 138/82 05/30/2024 9:46 AM EDT Pulse 75 05/30/2024 9:20 AM EDT Temperature 36 ??C (96.8 ??F) 05/30/2024 9:20 AM EDT Respiratory Rate 20 05/30/2024 9:20 AM EDT Oxygen Saturation 97% 05/30/2024 9:20 AM EDT Inhaled Oxygen Concentration - - Weight 80.6 kg (177 lb 12.8 oz) 05/30/2024 9:20 AM EDT Height 147.3 cm (4' 10 ) 05/30/2024 9:20 AM EDT Body Mass Index 37.16 05/30/2024 9:20 AM EDT documented in this encounter Progress Notes * James Ashraf MD - 05/30/2024 9:15 AM EDT SUBJECTIVE Jayne Lane is a 69 y.o. female who presents for Diabetes, Hypertension, and Knee Pain. Diabetes She presents for her follow-up diabetic visit. She has type 2 diabetes mellitus. There are no hypoglycemic associated symptoms. Pertinent negatives for hypoglycemia include no headaches. Pertinent negatives for diabetes include no chest pain. Risk factors for coronary artery disease include diabetes mellitus, dyslipidemia, hypertension, obesity and sedentary lifestyle. Current diabetic treatment includes insulin injections. Hypertension This is a chronic problem. Pertinent negatives include no chest pain, headaches or shortness of breath. Hyperlipidemia This is a chronic problem. Pertinent negatives include no chest pain or shortness of breath. Review of Systems Constitutional: Negative for fever. HENT: Negative for sore throat. Respiratory: Negative for cough and shortness of breath. Cardiovascular: Negative for chest pain. Gastrointestinal: Negative for abdominal pain. Neurological: Negative for headaches. Allergies Allergen Reactions Prednisone Anxiety Amoxicillin Chlorothiazide Ciprofloxacin Codeine Diphenhydramine Fosinopril Other reaction(s): elevated potassium Nitrofurantoin Oxycodone Oxycodone-Acetaminophen Sulfa Antibiotics Vancomycin Morphine Palpitations OBJECTIVE Vitals: 05/30/24 0920 05/30/24 0946 BP: (!) 144/74 138/82 BP Location: Left arm Left arm Patient Position: Sitting Sitting BP Cuff Size: Adult Pulse: 75 Resp: 20 Temp: 96.8 ??F (36 ??C) TempSrc: Temporal SpO2: 97% Weight: 177 lb 12.8 oz (80.6 kg) Height: 4' 10 (1.473 m) Physical Exam Vitals reviewed. Constitutional: Appearance: Normal appearance. HENT: Head: Normocephalic and atraumatic. Right Ear: External ear normal. Left Ear: External ear normal. Nose: Nose normal. Mouth/Throat: Mouth: Mucous membranes are moist. Eyes: Conjunctiva/sclera: Conjunctivae normal. Cardiovascular: Rate and Rhythm: Normal rate and regular rhythm. Pulmonary: Effort: Pulmonary effort is normal. Breath sounds: Normal breath sounds. Skin: General: Skin is warm. Neurological: Mental Status: She is alert. Mental status is at baseline. Assessment/Plan Problem List Items Addressed This Visit Type 2 diabetes mellitus with stage 3a chronic kidney disease (CMS/HCC) - Primary Pt here for follow up in terms of her Diabetes DM improving Under the care of endocrinology, last seen 05/01/2024 She is on a regimen of: Lantus 38 units sc q pm, Humalog Kwik pen and Ozempic 0.5 mg q week She is off Actos due to interaction with medications and off Victoza. Pt off Metformin due to CKD. Lab Results Component Value Date HGBA1C 8.4 (A) 03/21/2024 from previous of 8.4 Eye exam per Endocrinology Note: 10/2023, Pt has cataracts, pending surgery Microalbumin checked on:06/21/2023 was: 216 Pt not on an ROMI inhibitor due to Hx of hyperkalemia associated with ROMI inhibitors. Plan: continue to follow with Endocrinology. Foot check risk of zero Pt reports compliance with Plavix 4 months f/u with me Pt advised to: adhere to diabetic diet check your blood sugars regularly check your feet on a daily basis Relevant Orders POCT Glucose (Completed) Hypertension Patient with Hypertension currently controlled on a [...] counseled about weight loss 4 month f/u Hyperlipidemia Patient with elevated lipids. Most recent lipid profile from: Lab Results Component Value Date TRIG 104 02/05/2024 TRIG 178 (H) 01/19/2023 CHOL 123 02/05/2024 CHOL 152 01/19/2023 LDLCHOLCAL 62 02/05/2024 LDLCHOLCAL 71 01/19/2023 HDL 41 02/05/2024 HDL 46 01/19/2023 Currently on a regimen of: Lipitor 80 mg po daily. For now will continue with current regimen. advised to try to adhere to a low cholesterol diet, counseled and educated about diet and exercise,Patient encouraged to come up with a personal goal for weight loss. Coronary artery disease Pt is here for a f/u Known Hx of CAD s/p cardiac cath 02/21/2006 E.F 60 % [address] Melchor Weber put a ESTEPHANIE. she was under the care of Dr Dhaliwal, last seen on: 03/25/2015 His impression was that pt had CAD with 3 vessel disease and negative nuclear stress test at [facility] . Due to her Hx of CVA she is back on Plavix. Followed by Cardiology Dr Singh last seen 05/15/2024 Severe obesity (CMS/HCC) Patient has been counseled and educated about diet and exercise. Personal goal of weight loss discussedPatient has comorbidity of: DM Dietary Recommendations: Fruits, vegetables, whole grains, protein foods, and fat-free or low-fat dairy products are healthychoices. Eat different types of protein foods in your diet. This can include seafood, lean meats, poultry, beans, peas, lentils, nuts, seeds, soy products, and eggs. Limit foods and beverages higher in added sugars, saturated fat, and sodium. Exercise Recommendations: At least 150 minutes of moderate-intensity physical activity per week, or an equivalent combinationof moderate- and vigorous-intensity activity History of CVA (cerebrovascular accident) Hx of this Pt was admitted to [facility] from 10:12/31-12/22/2020 Patient presented to ED with 2 weeks of intermittent left arm paresthesias, associated with headache and dizziness. Patient did not have focal neurologic deficits on exam. At admission patient had only residual minor sensory loss of the fingertips on the left hand. No motor deficit. MRI showed a thalamic/ capsular stroke on the right. Echo was negative. Recommendations were patient to be treated with dual antiplatelet therapy for 21 days followed by continuation of clopidogrel and d/c of aspirin. She has some residual numbness on her left hand. Osteoporosis DEXA appendicular skeleton 05/17/2024 IMPRESSION: Based on bone mineral density, and according to World Health Organization (WHO) criteria, the diagnosis is consistent with osteoporosis. Being followed by Endocrinology Acute pain of both knees Pt with c/o bilateral knee pain Right > Left x 3 weeks. Intensity 12/20 Plan: Obtain plain films both knees Ortho referral Relevant Orders XR Knee 4+ Views Left XR Knee 4+ Views Right Referral to Orthopaedic Surgery Other Visit Diagnoses Dietary counseling Exercise counseling documented in this encounter Miscellaneous Notes * Assessment & Plan Note - James Ashraf MD - 05/30/2024 9:39 AM EDT Associated Problem(s): Acute pain of both knees Pt with c/o bilateral knee pain Right > Left x 3 weeks. Intensity 12/20 Plan: Obtain plain films both knees Ortho referral * Assessment & Plan Note - James Ashraf MD - 05/30/2024 9:24 AM EDT Associated Problem(s): Hypertension Patient with Hypertension currently controlled on a [...] counseled about weight loss 4 month f/u * Addendum Note - Tierra Mckay MA - 05/30/2024 9:15 AM EDTAddended by: TIRERA MCKAY on: 05/30/2024 09:55 AM Modules accepted: Orders * Assessment & Plan Note - James Ashraf MD - 05/30/2024 9:09 AM EDT Associated Problem(s): Osteoporosis DEXA appendicular skeleton 05/17/2024 IMPRESSION: Based on bone mineral density, and according to World Health Organization (WHO) criteria, the diagnosis is consistent with osteoporosis. Being followed by Endocrinology * Assessment & Plan Note - James Ashraf MD - 05/30/2024 9:07 AM EDT Associated Problem(s): History of CVA (cerebrovascular accident) Hx of this Pt was admitted to [facility] from 10:12/31-12/22/2020 Patient presented to ED with 2 weeks of intermittent left arm paresthesias, associated with headache and dizziness. Patient did not have focal neurologic deficits on exam. At admission patient had only residual minor sensory loss of the fingertips on the left hand. No motor deficit. MRI showed a thalamic/ capsular stroke on the right. Echo was negative. Recommendations were patient to be treated with dual antiplatelet therapy for 21 days followed by continuation of clopidogrel and d/c of aspirin. She has some residual numbness on her left hand. * Assessment & Plan Note - James Ashraf MD - 05/30/2024 9:05 AM EDT Associated Problem(s): Hyperlipidemia Patient with elevated lipids. Most recent lipid profile from: Lab Results Component Value Date TRIG 104 02/05/2024 TRIG 178 (H) 01/19/2023 CHOL 123 02/05/2024 CHOL 152 01/19/2023 LDLCHOLCAL 62 02/05/2024 LDLCHOLCAL 71 01/19/2023 HDL 41 02/05/2024 HDL 46 01/19/2023 Currently on a regimen of: Lipitor 80 mg po daily. For now will continue with current regimen. advised to try to adhere to a low cholesterol diet, counseled and educated about diet and exercise,Patient encouraged to come up with a personal goal for weight loss. * Assessment & Plan Note - James Ashraf MD - 05/30/2024 9:04 AM EDT Associated Problem(s): Severe obesity (CMS/HCC) Patient has been counseled and educated about diet and exercise. Personal goal of weight loss discussedPatient has comorbidity of: DM Dietary Recommendations: Fruits, vegetables, whole grains, protein foods, and fat-free or low-fat dairy products are healthychoices. Eat different types of protein foods in your diet. This can include seafood, lean meats, poultry, beans, peas, lentils, nuts, seeds, soy products, and eggs. Limit foods and beverages higher in added sugars, saturated fat, and sodium. Exercise Recommendations: At least 150 minutes of moderate-intensity physical activity per week, or an equivalent combinationof moderate- and vigorous-intensity activity * Assessment & Plan Note - James Ashraf MD - 05/30/2024 9:01 AM EDT Associated Problem(s): Coronary artery disease Pt is here for a f/u Known Hx of CAD s/p cardiac cath 02/21/2006 E.F 60 % [address] Melchor Weber put a ESTEPHANIE. she was under the care of Dr Dhaliwal, last seen on: 03/25/2015 His impression was that pt had CAD with 3 vessel disease and negative nuclear stress test at [facility] . Due to her Hx of CVA she is back on Plavix. Followed by Cardiology Dr Singh last seen 05/15/2024 * Assessment & Plan Note - James Ashraf MD - 05/30/2024 8:58 AM EDT Associated Problem(s): Type 2 diabetes mellitus with stage 3a chronic kidney disease (CMS/HCC) Pt here for follow up in terms of her Diabetes DM improving Under the care of endocrinology, last seen 05/01/2024 She is on a regimen of: Lantus 38 units sc q pm, Humalog Kwik pen and Ozempic 0.5 mg q week She is off Actos due to interaction with medications and off Victoza. Pt off Metformin due to CKD. Lab Results Component Value Date HGBA1C 8.4 (A) 03/21/2024 from previous of 8.4 Eye exam per Endocrinology Note: 10/2023, Pt has cataracts, pending surgery Microalbumin checked on:06/21/2023 was: 216 Pt not on an ROMI inhibitor due to Hx of hyperkalemia associated with ROMI inhibitors. Plan: continue to follow with Endocrinology. Foot check risk of zero Pt reports compliance with Plavix 4 months f/u with me Pt advised to: adhere to diabetic diet check your blood sugars regularly check your feet on a daily basis documented in this encounter Plan of Treatment Upcoming Encounters Date Type Department Care Team (Late st Contact Info) Description 09/03/2024 11:15 AM EDT Office Visit [facility] [address] [place] [address] James Flores MD [address] [place] [address] Scheduled Referrals Name Type Priority Associated Diagnoses Order Schedule Referral to Orthopaedic Surgery Outpatient Referral Routine Acute pain of both knees Expected: 05/30/2024 (Approximate), Expires: 05/30/2025 documented as of this encounter Procedures Procedure Name Priority Date/Time Associated Diagnosis Comments XR KNEE 4+ VIEWS RIGHT Routine 05/30/2024 10:25 AM EDT Acute pain of both knees XR KNEE 4+ VIEWS LEFT Routine 05/30/2024 10:25 AM EDT Acute pain of both knees POCT GLUCOSE Routine 05/30/2024 9:25 AM EDT Type 2 diabetes mellitus with stage 3a chronic kidney disease, with long-term current use of insulin ([facility]) documented in this encounter Results * XR Knee 4+ Views Right (05/30/2024 10:25 AM EDT) Anatomical Region Laterality Modality Lower Extremities, Knee Right Radiogra [facility] 05/30/2024 10:2 5 AM EDT Narrative 05/30/2024 12:32 PM EDT ?[facility] ?[address] ?[place] [address] ?XRay Report ? Signed ? Patient: Cappa,Jayne ?MR#: [id number] ? : 1955 ?Acct:[id number] ? Age/Sex: 69 / F ?ADM Date: 03/20/25 ? Loc: HO.HHCX ? Attending Dr: James Trimble MD ? Ordering Physician: James Trimble MD ?? Date of Service: 05/30/24 ?? Procedure(s): XR knee RT 4V ?? Accession Number(s): [id number] ? cc: James Trimble MD ? EXAMINATION: ?? XR KNEE, RIGHT ? CLINICAL INFORMATION: ?? knee pain ? COMPARISON: ?? None available. ? TECHNIQUE: ?? Four views of the right knee. ? FINDINGS: ?? Joint space narrowing involving the lateral compartment. Marginal ?? osteophyte formation and lateral tibial plateau. ?? Mild sclerosis of the articular surface in the lateral tibial plateau. ?? No acute cortical disruption or malalignment. ?? No suprapatellar bursa joint effusion. ?? Vascular complications. ? XR/XR knee RT 4V ?? IMPRESSION: ?? Moderate lateral compartment osteoarthrosis. ?? Atherosclerosis disease, peripheral ? Electronically signed by: ??Brian Witt MD ??05/30/2024 12:29 PM ?? EDT RP ? Dictated By: ?Brian Silva MD ? Signed By: ?<Electronically signed by Brian Andrews MD in OV> ? 05/30/24 1229 ? DD/ 1025 ? TD/TT: 05/30/24 1030 ? Manager Of Patient: ? Procedure Note Donjaelyn, Image - 05/30/[address] [address] XRay Report Signed Patient: Jayne LaneMR#: [id number] : 6Acct:[id number] Age/Sex: 69 / FADM Date: 05/30/24 Loc: HO.HHCX Attending Dr: James Trimble MD Ordering Physician: James Trimble MD Date of Service: 05/30/24 Procedure(s): XR knee RT 4V Accession Number(s): [id number] cc: James Trimble MD EXAMINATION: XR KNEE, RIGHT CLINICAL INFORMATION: knee pain COMPARISON: None available. TECHNIQUE: Four views of the right knee. FINDINGS: Joint space narrowing involving the lateral compartment. Marginal osteophyte formation and lateral tibial plateau. Mild sclerosis of the articular surface in the lateral tibial plateau. No acute cortical disruption or malalignment. No suprapatellar bursa joint effusion. Vascular complications. XR/XR knee RT 4V IMPRESSION: Moderate lateral compartment osteoarthrosis. Atherosclerosis disease, peripheral Electronically signed by: Brian Witt MD 05/30/2024 12:29 PM EDT RP Dictated By: Brian Silva MD Signed By: <Electronically signed by Brian Andrews MDin OV> 05/30/24 1229 DD/ 1025 TD/TT: 05/30/24 1030 Manager Of Patient: us James Ashraf MD IMG XR PROCEDURES Fin al Result * XR Knee 4+ Views Left (05/30/2024 10:25 AM EDT) Anatomical Region Laterality Modality Lower Extremities, Knee Left Radiogra phic Imaging 05/30/2024 10:2 5 AM EDT Narrative 05/30/2024 12:33 PM EDT ?[facility] ?[address] ?[place] [address] ?XRay Report ? Signed ? Patient: Cappa,Jayne ?MR#: [id number] ? : 1955 ?Acct:[id number] ? Age/Sex: 69 / F ?ADM Date: 05/30/24 ? Loc: HO.HHCX ? Attending Dr: James Trimble MD ? Ordering Physician: James Trimble MD ?? Date of Service: 05/30/24 ?? Procedure(s): XR knee LT 4V ?? Accession Number(s): [id number] ? cc: James Trimble MD ? EXAMINATION: ?? XR KNEE, LEFT ? CLINICAL INFORMATION: ?? knee pain ? COMPARISON: ?? None available. ? TECHNIQUE: ?? Four views of the left knee. ? FINDINGS: ?? Is mild loss of medial and patellofemoral compartment joint space. ?? There is superior patellar spurring. No visible acute fracture, ?? dislocation seen. There is no abnormal joint effusion. No loose bodies. ?? The soft tissues are normal. ? XR/XR knee LT 4V ?? IMPRESSION: ?? Degenerative arthritic changes medial and patellar compartments. No ?? visible acute fracture or dislocation seen ? Electronically signed by: ??Winston Villagran MD ??05/30/2024 12:30 PM EDT RP ? Dictated By: ?Sparkle,Winston Zaman MD ? Signed By: ?<Electronically signed by Winston Villagran MD in OV> ?05/30/24 1230 ? DD/ 1025 ? TD/TT: 05/30/24 1030 ? Manager Of Patient: MSM ? Procedure Note Donkhalifter, Image - 05/30/[address] [address] XRay Report Signed Patient: Jayne LaneMR#: [id number] : 6Acct:[id number] Age/Sex: 69 / FADM Date: 05/30/24 Loc: .HHX Attending Dr: James Trimble MD Ordering Physician: James Trimble MD Date of Service: 05/30/24 Procedure(s): XR knee LT 4V Accession Number(s): [id number] cc: James Trimble MD EXAMINATION: XR KNEE, LEFT CLINICAL INFORMATION: knee pain COMPARISON: None available. TECHNIQUE: Four views of the left knee. FINDINGS: Is mild loss of medial and patellofemoral compartment joint space. There is superior patellar spurring. No visible acute fracture, dislocation seen. There is no abnormal joint effusion. No loose bodies. The soft tissues are normal. XR/XR knee LT 4V IMPRESSION: Degenerative arthritic changes medial and patellar compartments. No visible acute fracture or dislocation seen Electronically signed by: Winston Villagran MD 05/30/2024 12:30 PM EDT Dictated By: Winston Villagran MD Signed By: <Electronically signed by Winston Villagran MD in OV> 05/30/24 1230 DD/ 1025 TD/TT: 05/30/24 1030 Manager Of Patient: MSM James Ashraf MD IMG XR PROCEDURES Fin al Result * (ABNORMAL) POCT Glucose (05/30/2024 9:25 AM EDT) Glucose Blood, POC 202(A) 60 - 200 mg/dL QC Media Lot # [id number] Lot# Expiration Date [id number] Blood Capillary blood specimen / Unknown 05/30/2024 9:25 AM EDT James Ashraf MD POINT OF CARE TEST EN TER/EDIT ORDERABLES Final Result documented in this encounter Visit Diagnoses Diagnosis Type 2 diabetes mellitus with stage 3a chronic kidney disease, with long-term current use of insulin ([facility])- Primary Primary hypertension Unspecified essential hypertension Mixed hyperlipidemia Coronary artery disease involving sun'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 Severe obesity ([facility]) Morbid obesity Dietary counseling Dietary surveillance and counseling Exercise counseling History of CVA (cerebrovascular accident) Transient ischemic attack (TIA), and cerebral infarction without residual deficits Age-related osteoporosis without current pathological fracture Acute pain of both knees Encounter for immunization documented in this encounter Additional Health Concerns Assessment Noted Time PHQ-9 Depression Total Score: 0 01/30/20 24 10:37 AM EST documented as of this encounter Care Teams Coil Connector Relationship Specialty Start Date End Date James Flores MD [address] [place] [address] PCP - General Internal Medicine 02/04/14 documented as of this encounter
--- OUTSIDE RECORDS SUMMARY | 2024-06-05 12:03 | XMS_ITS | Encounter Summary ---
Author Organization [email or web address] Address [address] 7t [place] [address] Care Team Providers Care Color Technician Name Role Phone James Flores MD Primary Care Provide r Encounter Details Date Type Department Care Team (Late st Contact Info) Description 08/22/2022 Orders Only [facility] [address] [place], [place] [phone] Jaja Hammodn LPN Social History Tobacco Use Types Packs/Day [...] Department Care Team (Late Contact Info) Description 09/03/2024 11:15 AM EDT Office Visit [facility] [address] [place], [place] [phone] James Flores MD [address] [place] [address] documented as of this encounter Visit Diagnoses Not on filedocumented in this encounter Care Teams Color Technician Relationship Specialty Start Date End Date James Flores MD [address] [place] [id number] PCP - General Internal Medicine 02/04/14 documented as of this encounter
--- OUTSIDE RECORDS SUMMARY | 2024-06-05 12:03 | XMS_ITS | Patient Health Record ---
Author Organization [facility] Address [address] [place] [address] Care Team Providers Care Continuous Improvement Coordinator Name Role Phone Rudy Ashraf MD, James Primary Care Provide r Unavailable Moris Duron Jr Unavailable Reason For Referral No Information Plan Of Treatment No Information Insurance Providers Payer Name Payer Address Payer Phone Subscriber Number Group Number Insured Name Patient Relationship to Insured Coverage Start Date Coverage End Date MEDICARE OF [place] [address] [place] [id number] STEPHANI JOE Self - patient is the insured MEDICAID OF [facility] [address] [place] [address] [id number] STEPHANI JOE Self - patient is the insured
--- OUTSIDE RECORDS SUMMARY | 2024-06-05 12:04 | XMS_ITS | Encounter Summary ---
Author Organization [facility] Address [address] [facility] [facility] [address] 7t [place] [address] Care Team Providers Care Construction Site Manager Name Role Phone James Flores MD Primary Care Provide r Encounter Details Date Type Department Care Team ([facility] Contact Info) Description 03/17/2022 Orders Only [facility] [address] [place], [place] [phone] Jaja Hammond LPN Social History Tobacco Use [...] Recorded In the last 10 days, have nick marin been in contact with someone who was confirmed or suspected to have Coronavirus/COVID-19? No / Unsure 03/17/2022 3:37 PM EST documented as of this encounter Plan of Treatment Upcoming Encounters Date Type Department Care Team ([facility] Contact Info) Description 09/03/2024 11:15 AM EDT Office Visit [facility] [address] [place], [place] [phone] James Flores MD [address] [place], [place] [phone] documented as of this encounter Visit Diagnoses Not on filedocumented in this encounter Care Teams Construction Site Manager Relationship Specialty Start Date End Date James Flores MD [address] [place] [phone] PCP - General Internal Medicine 02/04/14 documented as of this encounter
--- OUTSIDE RECORDS SUMMARY | 2024-06-05 12:04 | XMS_ITS | Encounter Summary ---
Author Organization [employer] [facility] Address [address] [facility] [address] [place] [address] Care Team Providers Care Mechanical Oxidizer Name Role Phone James Flores MD Primary Care Provide r Encounter Details Date Type Department Care Team (Late st Contact Info) Description 05/11/2022 Telephone [facility] MED[facility]INE [address] [place] [address] [phone] James Flores MD [address] [place] [address] [phone] Social History Tobacco Use Types Packs/Day Years [...] Description 09/03/2024 11:15 AM EDT Office Visit [facility] [address] [place] [address] [phone] James Flores MD [address] [place] [address] [phone] documented as of this encounter Visit Diagnoses Not on filedocumented in this encounter Care Teams Mechanical Oxidizer Relationship Specialty Start Date End Date James Flores MD [address] [place] [address] PCP - General Internal Medicine 02/04/14 documented as of this encounter
--- OUTSIDE RECORDS SUMMARY | 2024-06-05 12:04 | XMS_ITS | Encounter Summary ---
Author Organization [employer] Address [address] [facility] [address] [place] [address] Care Team Providers Care Aircraft Stress Analyst Name Role Phone James Flores MD Primary Care Provide r Encounter Details Date Type Department Care Team ([facility] st Contact Info) Description 03/14/2023 Telephone [facility] [address] [place], [place] [phone] Adriana Odell MA Social History Tobacco Use [...] Description 09/03/2024 11:15 AM EDT Office Visit [facility] [address] [place] [phone] James Flores MD [address] [place] [address] documented as of this encounter Visit Diagnoses Not on filedocumented in this encounter Care Teams Aircraft Stress Analyst Relationship Specialty Start Date End Date James Flores MD [address] [place] [address] PCP - General Internal Medicine 02/04/14 documented as of this encounter
--- OUTSIDE RECORDS SUMMARY | 2024-06-05 12:04 | XMS_ITS | Encounter Summary ---
Author Organization [facility] Address [address] [place] [address] Phone Care Team Providers Care Summer Camp Counselor Name Role Phone James Grant MD Primary Care Provider Unav ailable Reason for Visit * Reason Comments Med Refill Encounter Details Date Type Department Care Team (Late st Contact Info) Description 12/14/2022 Refill [facility] [address] [place] [address] Osmany Leung MD Social History [...] on filedocumented in this encounter Care Teams Summer Camp Counselor Relationship Specialty Start Date End Date James Grant MD PCP - General 03/23/20 documented as of this encounter
--- OUTSIDE RECORDS SUMMARY | 2024-06-05 12:04 | XMS_ITS | Clinical Summary ---
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 Name Role Phone James Flores MD Primary Care Provide r Allergies Active Allergy Reactions Criticality Noted Date Comments Amoxicillin 05/10/2012 Chlorothiazide 05/10/2012 Ciprofloxacin 05/10/2012 Codeine 05/10/2012 Diphenhydramine 05/10/2012 Fosinopril Other reaction(s): elevated potassium Morphine Palpitations Low 04/12/2013 Nitrofurantoin 05/10/2012 Oxycodone 04/12/2013 Oxycodone-Acetaminophen 02/07/2024 Prednisone Anxiety High 06/13/2022 Sulfa Antibiotics 05/10/2012 Vancomycin 05/10/2012 Medications Lancets misc Active Ozempic, 0.25 or 0.5 MG/DOSE, 2 MG/3ML solution pen-injector INJECT 0.25 MG SUBCUTANEOUSLY ONCE PER WEEK FOR 28 DAYS 023 Active OneTouch Verio test strip USE DIRECTED 023 Active ezetimibe (Zetia) 10 MG tablet Take 10 mg by mouth in the morning. 023 Active docusate sodium (Colace) 100 MG capsule TAKE 2 CAPSULES BY MOUTH EVERY DAY AT BEDTIME 023 Active Vitamin D High Potency 25 MCG (1000 UT) capsule Take 25 mcg by mouth in the morning. 023 Active Calcium Citrate-Vitamin D (Barnwell Calcium/Vitamin D) 200-6.25 MG-MCG tablet TAKE 2 TABLETS BY MOUTH TWICE DAILY IN THE MORNING AND EVENING Active clopidogrel (Plavix) 75 MG tablet TAKE 1 TABLET BY MOUTH EVERY EVENING 90 tablet 3 Active Pentips 32G X 4 MM miscIndications:T ype 2 diabetes mellitus without complication, with long-term current use of insulin (CMS/HCC) USE DIRECTED FOUR TIMES DAILY 100 each 6 024 Active Alcohol Swabs (Alcohol Prep) 70 % pads USE DIRECTED 100 each 11 024 Active amLODIPine (Norvasc) 5 MG tablet TAKE 1 TABLET BY MOUTH EVERY EVENING 30 tablet 5 Active loratadine (Claritin) 10 MG tabletIndications :Seasonal allergies TAKE 1 TABLET BY MOUTH EVERY MORNING 30 tablet 5 Active polycarbophil (Fiber-Lax) 625 MG tablet Take 1,250 mg by mouth. Active pioglitazone (Actos) 30 MG tablet Take 30 mg by mouth in the morning. Active senna (Senokot) 8.6 MG tablet Take 1 tablet by mouth if needed at bedtime. Active sodium zirconium cyclosilicate (Lokelma) 5 g packet MIX 1 PACKET WITH WATER AND DRINK TWICE A WEEK DIRECTED Active predniSONE (Deltasone) 20 MG tablet Take 40 mg by mouth at bedtime. Active polyethylene glycol, PEG, 3350 (Glycolax) 17 GM/SCOOP powder TAKE 17 GM MIXED IN 8 OUNCES OF WATER, COFFEE OR TEA ONCE DAILY TAKE AT BEDTIME Active ketorolac (Acular) 0.5 % ophthalmic solution INSTILL 1 DROP TO AFFECTED EYE(S) TWICE DAILY START 2 DAYS BEFORE SURGERY Active Continuous Glucose Sensor (FreeStyle Collin 3 Sensor) misc USE DIRECTED. CHANGE EVERY 14 DAYS Active Continuous Glucose Operational Risk Consultant (FreeStyle Collin 3 [place]) device USE DIRECTED Active bisacodyl (Dulcolax) 10 MG suppository INSERT 1 SUPPOSITORY RECTALLY ONCE DAILY NEEDED FOR CONSTIPATION Active atorvastatin (Lipitor) 80 MG tabletIndications :Mixed hyperlipidemia TAKE 1 TABLET BY MOUTH AT BEDTIME 30 tablet 5 024 Active Albuterol Sulfate 108 (90 Base) MCG/ACT aerosol powderIndications :Mild intermittent asthma without complication Inhale 2 puffs by mouth every 4 to 6 hours as needed 8.5 each 3 024 Active albuterol (2.5 MG/3ML) 0.083% nebulizer solutionIndicatio ns:Mild intermittent asthma without complication Take 3 mL by nebulization if needed in the morning, at noon, in the evening, and at bedtime (use 4-6 times a day as needed). 90 mL 3 024 Active insulin glargine (Lantus SoloStar) 100 UNIT/ML penIndications:Ty pe 2 diabetes mellitus without complication, with long-term current use of insulin (CMS/HCC) INJECT 35 UNITS SUBCUTANEOUSLY ONCE DAILY 15 mL 2 024 Active HumaLOG KWIKPEN 100 UNIT/ML injectionIndicati ons:Type 2 diabetes mellitus without complication, with long-term current use of insulin (CMS/HCC) INJECT 6 TO 16 UNITS SUBCUTANEOUSLY DIRECTED PER SLIDING SCALE BLOOD SUGAR 150-200 = 6 UNITS, 201-250 = 10U, 251-300 = 12U, 301-350 = 14U, > 351 = 16U 15 mL 3 025 Active nystatin (Mycostatin) 869604 UNIT/GM powderIndications :Tinea corporis Apply topically 2 times daily. 30 g 3 025 2025 Active metoprolol tartrate (Lopressor) 50 MG tablet TAKE 1 TABLET BY MOUTH TWICE DAILY IN THE MORNING AND IN THE EVENING WITH FOOD 180 tablet 1 025 Active Ferrous Sulfate (iron) 325 (65 Fe) MG tabletIndications :Chronic anemia TAKE 1 TABLET BY MOUTH THREE TIMES DAILY IN THE MORNING, AT NOON, AND IN THE EVENING 90 tablet 1 025 Active acetaminophen (Tylenol Extra Strength) 500 MG tabletIndications :Acute pain of both knees Take 1 tablet (500 mg) by mouth every 8 (eight) hours if needed for mild pain for up to 10 days. 30 tablet 025 2024 Active metoprolol tartrate (Lopressor) 50 MG tablet TAKE 1 TABLET BY MOUTH TWICE DAILY IN THE MORNING AND IN THE EVENING WITH FOOD 180 tablet 1 024 2024 Discontinued Ferrous Sulfate (iron) 325 (65 Fe) MG tabletIndications :Chronic anemia TAKE 1 TABLET BY MOUTH THREE TIMES DAILY IN THE MORNING, AT NOON, AND IN THE EVENING 90 tablet 1 025 2024 Discontinued Active Problems Problem Noted Date Diagnosed Date Acute pain of both knees 05/30/2024 Assessment & Plan (05/30/2024 9:39 AM EDT): Pt with c/o bilateral knee pain Right > Left x 3 weeks. Intensity 12/20 Plan: Obtain plain films both knees Ortho referral Tinea corporis 03/21/2024 Assessment & Plan (03/21/2024 9:28 AM EST): Erythematous pruritic rash underneath her breast x 2 weeks Plan: keep area dry at all times, Nystatin powder Diverticulosis of colon 02/07/2024 GERD (gastroesophageal reflux disease) Goiter 02/07/2024 Hemorrhoids 02/07/2024 Hypercalcemia 02/07/2024 Non-rheumatic aortic stenosis 02/07/2024 Osteoporosis 02/07/2024 Assessment & Plan (05/30/2024 9:11 AM EDT): DEXA appendicular skeleton 05/17/2024 IMPRESSION: Based on bone mineral density, and according to World Health Organization (WHO) criteria, the diagnosis is consistent with osteoporosis. Being followed by Endocrinology Poor historian 02/07/2024 Tubular adenoma 02/07/2024 Vitamin D deficiency 02/07/2024 Chronic constipation 01/31/2023 Assessment & Plan (01/30/2024 [...] underwent Colpo with biopsies & ECC per STUDIO CONTROL OPERATOR notes from 04/2017 Colonoscopy: 07/2022 Tubular adenoma repeat 3 years Vaccines: Flu shot: tdap: 05/31/2013 Dexa scan:. 04/28/2015 showed osteopenia Assessment & Plan (01/30/2024 11:02 AM EST): Routine physical exam today: within normal limits Mammogram: NL : 02/22/2023 Pap Smear: 06/27/2023: Normal In 11/24/2016 ASCUS with positive HPV. Pt underwent Colpo with biopsies & ECC per STUDIO CONTROL OPERATOR notes from 04/2017 Colonoscopy: 07/2022 Tubular adenoma repeat 3-5 years Vaccines: Flu shot: tdap: 05/31/2013 Dexa scan:. 04/28/2015 showed osteopenia Assessment & Plan (01/19/2023 1:43 PM EST): Mammogram: NL : 01/29/2021 Pap Smear: 11/24/2016 ASCUS with positive HPV. Pt underwent Colpo with biopsies & ECC per STUDIO CONTROL OPERATOR notes from 04/2017 she was supposed to have a repeat with co test 04/2018 and if both neg then would f/u in 3 years records requested Colonoscopy: 07/2022 Tubular adenoma repeat 3-5 years Vaccines: Flu shot: tdap: 05/31/2013 Dexa scan:. 04/28/2015 showed osteopenia History of CVA (cerebrovascular accident) 2021 Assessment & Plan (05/30/2024 9:07 AM EDT): Hx of this Pt was admitted to [facility] from 10:12/31-12/22/2020 Patient presented to ED with [...] some residual numbness on her left hand. Assessment & Plan (01/19/2023 1:44 PM EST): Hx of this Pt was admitted to [facility] from :12/31-12/22/2020 Patient presented to ED with 2 weeks [...] on the Chief complaint for the visit Hyperkalemia 07/08/2020 Type 2 diabetes mellitus wit h stage 3a chronic kidney disease 01/31/2017 Assessment & Plan (05/30/2024 9:46 AM EDT): Pt here for follow up in terms [...] on a daily basis Assessment & Plan (03/21/2024 9:40 AM EST): [...] Plan (01/31/2023 11:27 AM EST): Seen at [facility] 01/28/2023 with an asthma exacerbation Doing [...] Will repeat Hyperlipidemia 11/24/2011 Assessment & Plan (05/30/2024 9:05 AM EDT): Patient with elevated lipids. Most recent lipid [...] goal for weight loss. Assessment & Plan (01/31/2023 11:25 AM EST): [...] Lipid profile Hypertension 11/24/2011 Assessment & Plan (05/30/2024 9:24 AM EDT): Patient with Hypertension currently controlled on a [...] loss 4 month f/u Assessment & Plan (03/21/2024 9:27 AM EST): [...] f/u Severe obesity 11/24/2011 Assessment & Plan (05/30/2024 9:04 AM EDT): Patient has been counseled and educated about [...] moderate- and vigorous-intensity activity Assessment & Plan (03/21/2024 9:15 AM EST): [...] as stent placement 2005 Assessment & Plan (05/30/2024 9:01 AM EDT): Pt is here for a f/u Known Hx of CAD s/p cardiac cath 02/21/2006 E.F 60 % [address] Melchor Weber put a ESTEPHANIE. she was under the care of Dr Dhaliwal, last seen on: 03/25/2015 His impression was that pt had CAD with 3 vessel disease and negative nuclear stress test at [facility] . Due to her Hx of CVA she is back on Plavix. Followed by Cardiology Dr Singh last seen 05/15/2024 Assessment & Plan (03/21/2024 9:13 AM EST): Pt is here for a f/u Known Hx of CAD s/p cardiac cath 02/21/2006 E.F 60 % [address] Melchor Weber put a ESTEPHANIE. she was under the care of Dr Dhaliwal, last seen on: 03/25/2015 His impression was that pt had CAD with 3 vessel disease and negative nuclear stress test at [facility] . Due to her recent CVA [...] disease and negative nuclear stress test at [facility] . Due to her recent CVA she is now back on Plavix, she is now being followed by Dr Singh last seen 07/2022 Resolved Problems Problem Noted Date Diagnosed Date Resolved Date Acute cough 03/21/2024 05/30/2024 Assessment & Plan (03/21/2024 9:39 AM EST): Patient with mild cough, worse at night, non productive, lungs CTA B Rapid Covid and Flu: neg Plan: supportive measures , Guaifenesin PRN ER precautions discussed Follow up if worsening or no improvement Sore throat 01/31/2023 05/30/2024 Assessment & Plan (01/31/2023 3:40 PM EST): Likely viral pharyngitis, neg strep, neg covid, neg flu. Nothing to suggest [place] infection Prescribed conservative measures and chloraseptic lozenges for symptomatic relief, asked to come back if symptoms do not improve or worsen Asthma exacerbation 07/08/2020 05/31/19 25 Encounters Date Type Department Care Team Description 05/30/2024 9:15 AM EDT Office Visit [address] [address] James Flores MD Type 2 diabetes mellitus with stage 3a chronic kidney disease, with long-term current use of insulin (CMS/HCC) (Primary Dx); Primary hypertension; Mixed hyperlipidemia; Coronary artery disease involving lime coronary artery of lime heart without angina pectoris; Severe obesity (CMS/HCC); Dietary counseling; Exercise counseling; History of CVA (cerebrovascular accident); Age-related osteoporosis without current pathological fracture; Acute pain of both knees; Encounter for immunization 05/30/2024 Patient Outreach [facility] [address] [place] [address] James Flores MD Care Coordination (CHW outreach for SDOH housing search-referral completed ) 05/30/2024 Travel 05/23/2024 Refill [facility] [address] [place] [address] James Flores MD Chronic anemia 05/22/2024 Telephone [facility] [address] [place] [address] James Flores MD Chart Prep 05/20/2024 Refill [facility] [address] [place] [address] James Flores MD 05/10/2024 Refill [facility] [address] [place] [address] Coco Montiel NP Mild intermittent asthma without complication 05/01/2024 Orders Only GENERIC EXTERNAL DATA DEPARTMENT Provider, Generic External Data 03/26/2024 1:40 PM EST Office Visit [facility] [address] [place] [address] Sarah Mehta MD Acute URI (Primary Dx); Cough in adult patient 03/21/2024 9:15 AM EST Office Visit [facility] [address] [place] [address] James Flores MD Acute cough (Primary Dx); Primary hypertension; Coronary artery disease involving lime coronary artery of lime heart without angina pectoris; Type 2 diabetes mellitus with stage 3a chronic kidney disease, with long-term current use of insulin (CMS/HCC); Severe obesity (CMS/HCC); Tinea corporis; Preventative health care 03/21/2024 Travel 03/21/2024 Refill [facility] [address] [place] [address] James Flores MD Chronic anemia 03/19/2024 Refill [facility] [address] [place] [address] James Flores MD Type 2 diabetes mellitus without complication, with long-term current use of insulin ([facility]) 03/18/2024 Telephone [facility] [address] [place] [address] James Flores MD Nurse Triage 03/10/2024 Refill [facility] [address] [place], [place] [phone] Ruchi Nolan MD Type 2 diabetes mellitus without complication, with long-term current use of insulin ([facility]) from Last 3 Months Immunizations Name Administration [...] adsorbed 11/27/2002 Td (adult), unspecified 11/27/2002 Tdap 05/30/2024,05/31/2013 Zoster, Recombinant 07/20/2021 Zoster, live 10/20/2015 Social [...] Mass Index 37.16 05/30/2024 9:20 AM EDT Plan of Treatment Upcoming Encounters Date Type Department Care Team (Late st Contact Info) Description 09/03/2024 11:15 AM EDT Office Visit [facility] [address] [place], [place] [phone] James Flores MD [address] [place] [address] Health Maintenance Due Date Last Done Comments CT Colonography 1955 FIT DNA/Cologuard 1955 FIT 1955 FOBT 1955 Sigmoidoscopy 1955 Eye Exam 05/18/1965 Hepatitis C Screening 05/18/1973 Pneumococcal Vaccine: 50+ Years (1 of 2 - PCV) 05/18/1974 RSV Patients and Patients Aged 60 years or older (1 - Risk 60-74 years 1-dose series) 2015 Zoster Vaccines (3 of 3) 09/14/2021 07/20/2021, 08/11/2015 COVID-19 Vaccine ( - season) 2023 08/31/2020, 08/01/2020 Diabetes: Hemoglobin A1C 06/19/2024 025, 01/30/2024, 01/19/2023, Additional history exists Alcohol/Substance Use Screening 01/29/2025 01/30/2024 Depression Screening 01/29/2025 01/30/2024, 01/30/20 24 Lipid Panel 02/04/2025 02/05/2024, 1111/2022, 06/09/2022, Additional history exists Diabetes: Foot Exam 02/06/2025 02/07/2024, 02/07/2024, 02/07/2024, Additional history exists Mammogram 02/22/2025 02/22/2023, 01/11, 01/29/2021, Additional history exists SDOH Screening 05/30/2025 05/30/2024 Tobacco Screening 05/30/2025 05/30/2024 Colonoscopy 07/11/2025 07/11/2022 Colorectal Cancer Screening 07/11/2025 HPV/Cotest 01/17/2027 01/17/2022, 11/0 09/2021, 11/24/2016 Pap Smear 06/21/2028 06/22/2023, 01/17/2022 DTaP/Tdap/Td Vaccines (3 - Td or Tdap) 05/30/2034 05/30/2024, 05/31/2013, 11/27/2002, Additional history exists Influenza Vaccine Completed 01/30/2024, , 11/23/2022, Additional [...] Comments XR KNEE 4+ VIEWS RIGHT Routine 10:25 AM EDT Acute pain of both knees XR KNEE 4+ VIEWS LEFT Routine 05/30/2024 10:25 AM EDT Acute pain of both knees POCT GLUCOSE Routine 05/30/2024 9:25 AM EDT Type 2 diabetes mellitus with stage 3a chronic kidney disease, with long-term current use of insulin ([facility]) XR DEXA APPENDICULAR SKELETON Routine 05/15/2024 8:15 AM EST GLUCOSE, WHOLE BLOOD Routine 05/01/2024 9:11 AM [...] disease, with long-term current use of insulin ([facility]) POCT GLUCOSE Routine 03/21/2024 9:50 AM EST Type 2 diabetes mellitus with stage 3a chronic kidney disease, with long-term current use of insulin ([facility]/HCC) LIPID PANEL, STANDARD Routine 02/05/2024 7:55 AM EST Type 2 diabetes mellitus with stage 3a chronic kidney disease, with long-term current use of insulin (CMS/HCC) PAP SMEAR Routine 06/22/2023 3:20 PM EDT BI MAMMOGRAM SCREENING TOMOSYNTHESIS BILATERAL Routine 02/22/2023 8:20 AM EST HM COLONOSCOPY Routine 07/11/2022 3:53 PM EDT ZZZ HISTORICAL HPV E6/E7 RFLX DANIAL 16 18/45 Routine 01/17/2022 4:22 PM EST from Last 3 Months or Most Recently Relevant to Health Maintenance Results * XR Knee 4+ Views Right (05/30/2024 10:25 AM EDT) Anatomical Region Laterality Modality Lower Extremities, Knee Right Radiogra phic Imaging 05/30/2024 10:2 5 AM EDT Narrative 05/30/2024 12:32 PM EDT ?[facility] ?[address] ?[place] [address] ?XRay Report ? Signed ? Patient: Cappa,Jayne ?MR#: [id number] ? : 1955 ?Acct:[id number] ? Age/Sex: 69 / F ?ADM Date: 05/30/24 ? Loc: HO.HHCX ? Attending Dr: James Trimble MD ? Ordering Physician: James Trimble MD ?? Date of Service: 05/30/24 ?? Procedure(s): XR knee RT 4V ?? Accession Number(s): [id number] ? cc: James Trimble MD ? EXAMINATION: [...] DD/ 1025 ? TD/TT: 05/30/24 1030 ? Gynaecological Oncologist: ? Procedure Note Donotleeter, Image - 05/30/[address] [address] XRay Report Signed Patient: Jayne LaneMR#: [id number] : 6Acct:[id number] Age/Sex: 69 / FADM Date: 05/30/24 Loc: HO.HHCX Attending Dr: James Trimble MD Ordering Physician: James Trimble MD Date of Service: 05/30/24 Procedure(s): XR knee RT 4V Accession Number(s): [id number] cc: James Trimble MD EXAMINATION: XR KNEE, [...] Brian Witt MD 05/30/2024 12:29 PM EDT Dictated By: Brian Silva MD Signed By: <Electronically signed by Brian Andrews MDin OV> 05/30/24 1229 DD/ 1025 TD/TT: 05/30/24 1030 Gynaecological Oncologist: us James Ashraf MD IMG XR PROCEDURES Fin al Result * XR Knee 4+ Views Left (05/30/2024 10:25 AM EDT) Anatomical Region Laterality Modality Lower Extremities, Knee Left Radiogra phic Imaging 05/30/2024 10:2 5 AM EDT Narrative 05/30/2024 12:33 PM EDT ?[facility] ?[address] ?[place] [address] ?XRay Report ? Signed ? Patient: Cappa,Jayne ?MR#: [id number] ? : 1955 ?Acct:[id number] ? Age/Sex: 69 / F ?ADM Date: 05/30/24 ? Loc: HO.HHCX ? Attending Dr: James Trimble MD ? Ordering Physician: James Trimble MD ?? Date of Service: 05/30/24 ?? Procedure(s): XR knee LT 4V ?? Accession Number(s): [id number] ? cc: James Trimble MD ? EXAMINATION: [...] PM EDT RP ? Dictated By: ?Sparkle,Winston S MD ? Signed By: ?<Electronically signed by Winston S Sparkle, MD in OV> ?05/30/24 1230 ? DD/ 1025 ? TD/TT: 05/30/24 1030 ? Gynaecological Oncologist: MSM ? Procedure Note Ofelia, Image - 05/30/2024 [facility] [address] [place] [address] XRay Report Signed Patient: Jayne LaneMR#: [id number] : 6Acct:[id number] Age/Sex: 69 / FADM Date: 05/30/24 Loc: HO.HHCX Attending Dr: James Trimble MD Ordering Physician: James Trimble MD Date of Service: 05/30/24 Procedure(s): XR knee LT 4V Accession Number(s): [id number] cc: James Trimble MD EXAMINATION: XR KNEE, [...] 05/30/24 1230 DD/ 1025 TD/TT: 05/30/24 1030 Gynaecological Oncologist: EDWARD James Ashraf MD IMG XR PROCEDURES Fin al Result * (ABNORMAL) POCT Glucose (05/30/2024 9:25 AM EDT) Only the most recent of2 resultswithin the time period is included. [facility] Glucose Blood, POC 202(A) 60 - 200 mg/dL QC Media Lot # [id number] Lot# Expiration Date [id number] Blood Capillary blood specimen / Unknown 05/30/2024 9:25 AM EDT James Ashraf MD POINT OF CARE TEST EN TER/EDIT ORDERABLES Final Result * XR DEXA APPENDICULAR SKELETON (05/15/2024 8:15 AM EST) Anatomical Region Laterality Modality Abdomen Radiographic Rena ging 05/15/2024 8:15 AM EST Narrative 05/17/2024 7:37 AM EST ? [facility] ? [address] ?[place] [address] ? Mammography Report ? Signed ? Patient: Cappa,Jayne ?MR#: [id number] ? : 1955 ?Acct:[id number] ? Age/Sex: 68 / F ?ADM Date: 05/15/24 ? Loc: HO.MAMMO ? Attending Dr: Lina Jason MD ? Ordering Physician: Lina Jason MD ?Results: ? Date of Service: 05/15/24 ?Follow Up: ? Procedure(s): XR DEXA appendicular skeleton ?? Accession Number(s): [id number] ? cc: James Trimble MD; Lina Jason MD ? EXAMINATION: ??DXA BONE DENSITY EXTREMITY ? HISTORY: ??Estrogen deficiency ? TECHNIQUE: Sermo Dual energy absorptiometry (DEXA) ?? of the lumbar spine, total left hip, femoral neck, and distal radius ?? was performed. ? COMPARISON: Comparison is made with the prior examination dated ?? 03/01/2022. ? FINDINGS: ? The bone mineral density of the lumbar spine is 0.957 with a T-score of ?? -1.9, and a Z-score of -1.0. ? This represents a BMD change of -27% compared to the prior exam. ??This ?? is not statistically significant. ? The bone mineral density of the left total hip is 0.871 with a T-score ?? of -1.1, and a Z-score of -0.2. ? This represents BMD change of 3.8% compared to the prior exam. ??This is ?? not statistically significant. ? The bone mineral density of the left femoral neck is 0.809 with a ?? T-score of -1.6, and a Z-score of -0.5. ? This represents BMD change of -1.3% compared to the prior exam. ? The bone mineral density of the distal radius is 0.604 with a T-score ?? of -3.1, and a Z-score of -1.4. ? This represents BMD change of -2.3% compared to the prior exam. This is ?? not statistically significant. ? MM/XR DEXA appendicular skeleton ?? IMPRESSION: ?? Based on bone mineral density, and according to World Health ?? Organization (WHO) criteria, the diagnosis is consistent with ?? osteoporosis. ? All bone density values are in grams per centimeter squared (g/cm2). ?? Statistically, 68% of repeat scans fall within 1 SD (+/- 0.010 g/cm2 ?? for AP spine L1-L4) and 1 SD (+/- 0.012 g/cm2 for femur total) ?? FRAX is a trademark of the [employer]'s ?? [place] for Metabolic Bone Disease, a World Health Organization (WHO) ?? Collaborating Center. ? Electronically signed by: ??Zev Mukherjee MD ??05/17/2024 07:34 AM EST ?? RP ? Dictated By: ?Zev Mukherjee MD ? Signed By: ?<Electronically signed by Zev Mukherjee MD in OV> ?05/17/24 0734 ? DD/ 0815 ? TD/TT: 05/15/24 0840 ? Gynaecological Oncologist: ? Procedure Note Donotuseinterpreter, Image - 05/17/2024 [facility] [address] [place] [address] Mammography Report Signed Patient: Jayne LaneMR#: [id number] : 6Acct:[id number] Age/Sex: 68 / FADM Date: 05/15/24 Loc: HO.MAMMO Attending Dr: Lina Jason MD Ordering Physician: Lina Jasonesults: Date of Service: 05/15/24Follow Up: Procedure(s): XR DEXA appendicular skeleton Accession Number(s): [id number] cc: James Trimble MD; Lina Jason MD EXAMINATION: DXA BONE DENSITY EXTREMITY HISTORY: Estrogen deficiency TECHNIQUE: Sermo Dual energy absorptiometry (DEXA) of the lumbar spine, total left hip, femoral neck, and distal radius was performed. COMPARISON: Comparison is made with the prior examination dated 03/01/2022. FINDINGS: The bone mineral density of the lumbar spine is 0.957 with a T-score of -1.9, and a Z-score of -1.0. This represents a BMD change of -27% compared to the prior exam. This is not statistically significant. The bone mineral density of the left total hip is 0.871 with a T-score of -1.1, and a Z-score of -0.2. This represents BMD change of 3.8% compared to the prior exam. This is not statistically significant. The bone mineral density of the left femoral neck is 0.809 with a T-score of -1.6, and a Z-score of -0.5. This represents BMD change of -1.3% compared to the prior exam. The bone mineral density of the distal radius is 0.604 with a T-score of -3.1, and a Z-score of -1.4. This represents BMD change of -2.3% compared to the prior exam. This is not statistically significant. MM/XR DEXA appendicular skeleton IMPRESSION: Based on bone mineral density, and according to World Health Organization (WHO) criteria, the diagnosis is consistent with osteoporosis. All bone density values are in grams per centimeter squared (g/cm2). Statistically, 68% of repeat scans fall within 1 SD (+/- 0.010 g/cm2 for AP spine L1-L4) and 1 SD (+/- 0.012 g/cm2 for femur total) FRAX is a trademark of the [employer]'s [place] for Metabolic Bone Disease, a World Health Organization (WHO) Collaborating Center. Electronically signed by: Zev Mukherjee MD 05/17/2024 07:34 AM EST RP Dictated By: Zev Mukherjee MD Signed By: <Electronically signed by Zev Mukherjee MD in OV> 05/17/24 0734 DD/ 0815 TD/TT: 05/15/24 0840 Gynaecological Oncologist: [facility] External Provider IMG XR PROCEDURES Final Result * (ABNORMAL) Glucose, Whole Blood (05/01/2024 9:11 AM EST) Glucose, Whole Blood 150(H) 60 - 115 mg/dL [facility] Comment:METER #: [id number] 5Testing performed in the Endocrinology Department [address] , [address], [facility]. 05/01/2024 9:11 AM EST 05/01/2024 9:15 AM EST Generic External Data Provider LAB BLOOD ORDERAB LES Final Result [facility] [address] [place] [address] [phone] * Influenza B (ID NOW Rapid Molecular) (03/26/2024 1:48 PM EST) Only the most recent of2 resultswithin the time period is included. Influenza B Negative Negative, Indeterminate [facility] Swab 03/26/2024 1:48 PM EST Sarah Mehta MD POINT OF CARE TEST ENTER/E DIT ORDERABLES Final Result Performing Organization Address [facility] Co de Phone Number [facility] [address] [place] [phone] * Influenza A (ID NOW Rapid Molecular) (03/26/2024 1:47 PM EST) Only the most recent of2 resultswithin the time period is included. Pathologist [facility] Influenza A Negative Negative, Indeterminate [facility] Swab 03/26/2024 1:47 PM EST Sarah Mehta MD POINT OF CARE TEST ENTER/E DIT ORDERABLES Final Result Performing Organization Address [facility] de Phone Number [facility] [address] [place] [phone] * POCT Rapid COVID Ag (03/26/2024 1:39 PM EST) Only the most recent of2 resultswithin the time period is included. Pathologist [facility] Rapid COVID Ag Negative Swab 03/26/2024 1:39 PM EST Sarah Mehta MD POINT OF CARE TEST ENTER/E DIT ORDERABLES Final Result * (ABNORMAL) POCT HGB A1C (03/21/2024 9:51 AM EST) Pathologist [facility] Hemoglobin A1C 8.4(A) 4.0 - 6.0 % QC Media Lot # [id number] Lot# Expiration Date ,268 Blood 03/21/2024 9:51 AM EST James Ashraf MD POINT OF CARE TEST EN TER/EDIT ORDERABLES Final Result * Lipid Panel, Standard (02/05/2024 7:55 AM EST) Triglycerides 104 <150 mg/dL [facility] Comment:Desirable Triglyceri de: less than 150 mg/dLBorderline High Triglyceride 150-199 mg/dLHigh Triglyceride: 200-499 mg/dLVery High Triglyceride: greater than or equal to 5OO mg/dL Cholesterol 123 <200 mg/dL [facility] Comment:Desirable Cholestero l: less than 200 mg/dLBorderline High Cholesterol: 200-239 mg/dLHigh Cholesterol: greater than 239 mg/dL LDL Cholesterol Calculated 62 <100 mg/dL [facility] Comment:Desirable LDL: less than 100 mg/dLNear Optimal/Above Optimal LDL: 110- 129 mg/dLBorderline High LDL: 130-159 mg/dLHigh LDL: 160-189 mg/dLVery High LDL: greater than or equal to 190 mg/dL HDL Cholesterol 41 >40 mg/dL [facility] Comment:Desirable HDL: great er than 40 mg/dL Note: This HDL assay may give artificially low results in patients with liver disease. Blood Venous blood specimen / Unknown 02/05/2024 7:55 AM EST 02/05/2024 11:17 AM EST James Ashraf MD LAB BLOOD ORDERABLES Final Result [facility] [address] [place] [phone] * Pap Smear (06/22/2023 3:20 PM EDT) 06/22/2023 3:20 PM EDT 06/27/2023 11:15 AM EDT Narrative [facility] - 07/11/2023 2:16 PM EDT ----- ------- Name: ArianaJayne ?Age/Sex: 68/F ? : 1955 Unit#: [id number] ?? Attend Dr: Opal Carranza CNM ?Re06/22/23 ?Status: DEP REF ? Location: HO.LNP ?Disch: ? ----- ------- SPEC : [id number] ? RECD: 06/27/23-1115 ? STATUS: ??SOUT ? REQ NUM: [id number] ? CYRUS: 06/22/23-1520 ? SUBM DR: Opal [...] 66, 68) ? HPV testing performed by [employer], [place], [place]. ??See reference laboratory ?? portion of the EMR for entire report. 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 Material Received ?? ThinPrep-Cervical Copies To: ?? James Trimble MD ?? [address] ?? [place] [address] ?? [phone] ?? Opal Carranza CNM ?? [address] [place] [address] Dr. Rodriguez [facility] [place] ?? [place] [address] ?? [phone] ----- ------- Signed (signature on file) Ev Preciado 07/11/23 1416 ? ----- ------- ? END OF REPORT ? us Generic External Data Provider LAB CYTOLOGY RAINERE MARTIN Final Result [facility] [address] [facility] [place] [address] [phone] * BI Mammogram Screening Tomosynthesis Bilateral (02/22/2023 8:20 AM EST) Anatomical Region Laterality Modality Breast Bilateral Mammography 02/22/2023 8:20 AM EST Narrative 03/07/2023 9:08 PM EST ? [facility] ? [address] [facility] ?[place] [address] ? Mammography Report ? Signed ? Patient: Cappa,Jayne ?MR#: [id number] ? : 1955 ?Acct:[id number] ? Age/Sex: 67 / F ?ADM Date: 12/13/23 ? Loc: HO.MAMMO ? Attending Dr: James Trimble MD ? Ordering Physician: Loraine Yadav MD ?Results: 1Ne ?? gative ? Date of Service: 02/22/23 ?Follow Up: 1 Year From Orig ?? inal Mammogram ? Procedure(s): MM tomosynthesis screening BI ?? Accession Number(s): [id number] ? cc: James Trimble MD; Loraine Yadav MD ? EXAMINATION: ?? MM SCREENING DIGITAL BREAST TOMOSYNTHESIS, BILATERAL ? CLINICAL INFORMATION: ? Screening. Asymptomatic. ? COMPARISON: ?? Mammography: This study is compared with prior exams dating back to ?? 2017. ? TECHNIQUE: ?? Digital breast tomosynthesis is [...] MD in OV> ? 03/07/232103 ? DD/ 9 ? TD/TT: ? Gynaecological Oncologist: ? Procedure Note Ofelia, Image - 03/07/2023 [facility] [address] [place], [place] [address] Mammography Report Signed Patient: Jayne LaneMR#: [id number] : 6Acct:[id number] Age/Sex: 67 / FADM Date: 02/22/23 Loc: HO.MAMMO Attending Dr: James Trimble MD Ordering Physician: Loraine Yadav MDResults: 1Ne gative Date of Service: 02/22/23Follow Up: 1 Year From Orig inal Mammogram Procedure(s): MM tomosynthesis screening BI Accession Number(s): [id number] cc: James Trimble MD; Loraine Yadav MD [...] Nakita Matthew MD in OV> 03/07/232103 DD/ 08 TD/TT: Gynaecological Oncologist: [facility] External Provider IMG BI PROCEDURES Final Result * Hm Colonoscopy (07/11/2022 3:53 PM EDT) Colonoscopy Normal Normal Comment:Tubular adenoma Historical Provider MD HEALTH MAINTENANCE Final Result * HPV E6/E7 RFLX DANIAL 16 18/45 (01/17/2022 4:22 PM EST) HPV 16 RNA TNP [facility] HPV 18/45 RNA TNP [facility] HPV E6 E7 ADD TNP [facility] HPV mRNA E6/E7 rflx Not Detected Not Detected [facility] Comment: Methodology: [employer]-Mediated Amplification This assay detects E6/E7 viral messenger RNA (mRNA) from 14 high-risk HPV types (16,18,31,33,35,39,45,51,52,56,58,59,66,68). Cervical sources are required for HPV testing. If a vaginal source from a patient who has had a total hysterectomy with removal of cervix was submitted, please contact the testing laboratory for alternative testing options. For additional information, please refer to http://education.AppLift/faq/RYU400j9 (This link if provided for information/ educational purposes only.) THIS TEST WAS PERFORMED AT: [facility] [address] [place] [address],[address] [place], [place] ??[phone] KVEEN CHAND MD 01/17/2022 4:22 PM EST Opal Carranza HISTORICAL/NON ORDERABLE LABS Fi nal Result [facility] from Last 3 Months or Most Recently Relevant to Health Maintenance Insurance [facility] Care Teams Cotton Machine Operator Relationship Specialty Start Date End Date James Flores MD [address] [place] [phone] PCP - General Internal Medicine 02/04/14
--- OUTSIDE RECORDS SUMMARY | 2024-06-05 12:04 | XMS_ITS ---
Author Name Mr. Arlen Márquez Address [address] [place] [address] Phone [phone] [facility] Care Team Providers Care Remelt Furnace Expediter Name Role Phone Micah Judge Unavailable [phone] Reason for Referral Not Available Allergies, adverse [...] 2021-11-04 No Data Available [employer] [employer] [facility] [id number] Miscellaneous TEST BLOOD SUGAR THREE OR FOUR [...] of Service Diagnosis/Co mplaint No Data Available [facility], [place] 07/12/2022 Type 2 diabetes mellitus wit h diabetic chronic kidney diseaseChronic kidney disease, stage 3bLong term (current) use of insulinMorbid (severe) obesity due to excess caloriesBody mass index (BMI) 40.0-44.9, adultOther specified health statusConstipation, unspecifiedProblems related to health literacyPrsnl hx of TIA (TIA), and cereb infrc w/o resid deficits No Data Available [facility], [facility]) 07/12/2022 No Data Available [facility], [facility]) 07/12/2022 No Data Available [facility], [facility]) 07/12/2022 No Data Available [facility], [facility]) 07/12/2022 No Data Available [facility] 07/12/2022 No Data Available [facility] 07/22/2022 Morbid (severe) obesity due to excess caloriesBody mass index (BMI) 40.0-44.9, adultType 2 diabetes mellitus with diabetic chronic kidney diseaseChronic kidney disease, stage 3bPrsnl hx of TIA (TIA), and cereb infrc w/o resid deficitsOther specified health status No Data Available [facility] 07/22/2022 Vital Signs Date of Collection Vitals 2022-07-12 11:38:39 Height - 147.32 cmWe ight - 87.09 kgBody Mass Index (BMI) - 40.13 kg/m2 Social History Sex Female History of Procedures Procedures Service Procedure code Service date Servicing provider Phone# No Data Available [id number] 2022-07-12 No Data Available No Data Available [...] le No Data Available No Data Available [id number] 2022-07-22 No Data Available No Data Available [...] modifier 95)Continue to see PCP. Follow-up with [facility] as needed for any acute or [...]
--- OUTSIDE RECORDS SUMMARY | 2024-06-05 12:04 | XMS_ITS | Encounter Summary ---
Author Organization [facility] Address [address] [facility] 7[address] [place] [address] Care Team Providers Care De Icer Kit Assembler Name Role Phone James Flores MD Primary Care Provide r Encounter Details Date Type Department Care Team (Late Contact Info) Description 04/13/2022 Orders Only [facility] [address] [place] [address] [phone] April Olsen LPN Social History Tobacco Use [...] In the last 10 days, have nick u been in contact with someone who was confirmed or suspected to have Coronavirus/COVID-19? No / Unsure 03/17/2022 3:37 PM EST documented as of this encounter Plan of Treatment Upcoming Encounters Date Type Department Care Team (Late Contact Info) Description 09/03/2024 11:15 AM EDT Office Visit [facility] [address] [place], [place] [phone] James Flores MD [address] [place], [place] [phone] documented as of this encounter Visit Diagnoses Not on filedocumented in this encounter Care Teams De Icer Kit Assembler Relationship Specialty Start Date End Date James Flores MD [address] [place] [address] PCP - General Internal Medicine 02/04/14 documented as of this encounter
--- OUTSIDE RECORDS SUMMARY | 2024-06-05 12:04 | XMS_ITS | Encounter Summary ---
Author Organization [employer] [facility] Address [address] [facility] 7t [place] [address] Care Team Providers Care Dobie Worker Name Role Phone James Flores MD Primary Care Provide r Reason for Visit * Reason Comments Med Refill Encounter Details Date Type Department Care Team ([facility] st Contact Info) Description 03/12/2023 Refill [facility] [address] [place] [address] James Flores MD [address] [place], [place] [phone] Chronic anemia Social History Tobacco Use Types [...] Description 09/03/2024 11:15 AM EDT Office Visit [facility] [address] [place] [phone] James Flores MD [address] [place] [phone] documented as of this encounter Visit Diagnoses Diagnosis Chronic anemia Unspecified anemia documented in this encounter Care Teams Dobie Worker Relationship Specialty Start Date End Date James Flores MD [address] [place] [phone] PCP - General Internal Medicine 02/04/14 documented as of this encounter
--- OUTSIDE RECORDS SUMMARY | 2024-06-05 12:04 | XMS_ITS | Encounter Summary ---
Author Organization [facility] Address [address] [facility] 7t [place] [address] Care Team Providers Care Abatement Worker Name Role Phone James Flores MD Primary Care Provide r Encounter Details Date Type Department Care Team ([facility] Contact Info) Description 02/21/2022 Abstract [facility] [address] [place] [phone] James Flores MD [address] [place] [phone] Social History Tobacco Use Types Packs/Day Years [...] Description 09/03/2024 11:15 AM EDT Office Visit [facility] [address] [place] [address] [phone] James Flores MD [address] [place] [phone] documented as of this encounter Procedures Procedure Name Priority Date/Time Associated Diagnosis Comments PAP/HPV Routine 01/17/2022 MAMMOGRAPHY Routine 01/29/2021 documented in this encounter Results * Pap Smear (01/17/2022) Pap smear NIL HPV mRNA E6/E7 not detected Comment:Opal Carranza CN us Historical Provider HEALTH MAINTENANCE Final Result * Mammography (01/29/2021) Mammogram BI-RADS 1 Anatomical Region Laterality Modality Other us Historical Provider HEALTH MAINTENANCE Final Result documented in this encounter Visit Diagnoses Not on filedocumented in this encounter Care Teams Abatement Worker Relationship Specialty Start Date End Date James Flores MD [address] [place] [address] PCP - General Internal Medicine 02/04/14 documented as of this encounter
--- OUTSIDE RECORDS SUMMARY | 2024-06-05 12:04 | XMS_ITS | Encounter Summary ---
Author Organization [employer] [facility] Address [address] [facility] 7[address] [place] [address] Care Team Providers Care Patient Svcs Mgr Name Role Phone James Flores MD Primary Care Provide r Reason for Visit * Reason Onset Date Comments Pre op 01/11/2024 Encounter Details Date Type Department Care Team (Late st Contact Info) Description 01/11/2024 Telephone [facility] [address] [place] [address] James Flores MD [address] [place], [place] [phone] Pre op Social History Tobacco Use Types [...] [facility] Surgeon's office number: [phone] Surgeon's office fax number: [phone] Contact name (person you spoke with): Marcelo Last office note from surgeon requested: No Pt scheduled for Pre op on 02/07/24 with Pro documented in this encounter Plan of Treatment Upcoming Encounters Date Type Department Care Team (Late st Contact Info) Description 09/03/2024 11:15 AM EDT Office Visit [facility] [address] [place] [address] James Flores MD [address] [place] [phone] documented as of this encounter Visit Diagnoses Not on filedocumented in this encounter Care Teams Patient Svcs Mgr Relationship Specialty Start Date End Date James Flores MD [address] [place] [phone] PCP - General Internal Medicine 02/04/14 documented as of this encounter
--- OUTSIDE RECORDS SUMMARY | 2024-06-05 12:04 | XMS_ITS | Clinical Summary ---
Author Organization [facility] Address [address] [place] [phone] Phone Care Team Providers Care Drain Cleaner Name Role Phone James Grant MD Primary [...] patient's age to complete this topic Insurance [employer] [place] [id number] [employer] Care Teams Drain Cleaner Relationship Specialty Start Date End Date James Grant MD PCP - General 03/23/20
== END 2024-06-05 10:47 | disposition home or self-care (01) ==
LOC: HO.ENCR 10:20
PROVIDERS: Visit Provider Internal Medicine Endocrinology, Diabetes & Metabolism
DX: E83.52 Hypercalcemia (principal)
CPT/HCPCS: 99213

== ENCOUNTER → 2024-06-05 10:19 | Outpatient (BNVA) | payer OTHER, SELFPAY | PROVIDERS: Visit Provider Internal Medicine Endocrinology, Diabetes & Metabolism | DX: E83.52 Hypercalcemia (principal); M81.0 Age-related osteoporosis without current pathological fracture | CPT/HCPCS: 99212 ==

== ENCOUNTER 2024-06-08 15:24 | Emergency (ER) | payer OTHER, SELFPAY ==
--- NOTE | ~2024-06-08 | XR_ITS ---
CLINICAL HISTORY: posterior knee pain Four views of the right knee. COMPARISON: XR right knee dated 05/30/24 at 10:52 EDT FINDINGS: No suprapatellar joint effusion. Atherosclerotic vascular disease. Lateral compartment joint space narrowing. Osteophytes present along the lateral compartment. Tibial spine spurring. Visualized portions of the distal femur, patella, and proximal tibia and fibula appear intact. IMPRESSION: 1. No radiographic evidence of acute injury to the right knee. 2. Swag-jl-vdartntj lateral compartment degenerative changes. This document has been electronically signed by: Reginaldo Lowry MD on 06/08/2024 18:30:46
--- NOTE | ~2024-06-08 | XR_ITS ---
CLINICAL HISTORY: posterior knee pain Four views of the left knee. COMPARISON: XR left knee dated 05/30/24 at 10:50 EDT FINDINGS: No appreciable suprapatellar joint effusion. Atherosclerotic vascular disease. Medial joint space narrowing. Small osteophytes present along the medial and patellofemoral compartments. Tibial spine spurring. Visualized portions of the distal femur, patella, and proximal tibia and fibula appear intact. IMPRESSION: 1. No radiographic evidence of acute injury to the left knee. 2. Mild degenerative changes of the left knee most pronounced within the medial compartment. This document has been electronically signed by: Reginaldo Lowry MD on 06/08/2024 18:29:13
--- NOTE | ~2024-06-08 | CT_ITS ---
CLINICAL HISTORY: R sided VALENCIA, neck pain, hearing changes CT head without contrast. CT angiography head and neck with contrast. 3D Postprocessing. COMPARISON: None FINDINGS: HEAD CT: No intra-axial mass, midline shift, hydrocephalus, or acute hemorrhage. Periventricular areas of hypoattenuation consistent with mild white-matter small-vessel disease. Chronic lacunar infarcts present within the left basal ganglia. The visualized paranasal sinuses and mastoid air cells are normal. The orbits are unremarkable. Atherosclerotic intracranial vasculature. No calvarial fracture. HEAD AND NECK CTA: Aortic arch and cervical great vessels are patent. Minimal calcified plaque present at the carotid bulb on the left without significant stenosis. Calcified plaque present at the cavernous portion of the internal carotid arteries bilaterally with a significant stenosis. Otherwise the intracranial arteries are patent. No aneurysm, dissection, or occlusion. No abnormal intracranial enhancement. Thyroid nodule along the isthmus measuring 1.7 cm. No cervical mass or fluid collection. Visualized lung apices are clear. No acute fracture. IMPRESSION: 1. Unremarkable head CT. 2. Patent head and neck CTA. This document has been electronically signed by: Reginaldo Lowry MD on 06/08/2024 19:19:32
--- NOTE | 2024-06-08 16:00 | ED.GENADULT ---
HPI - General Adult General Chief complaint: Headache Stated complaint: headache dizzy knee pain Time Seen by Provider: 06/08/24 16:09 Source: patient and spanish interpreter/translator (citizen of [place]) Mode of arrival: ambulatory Limitations: language barrier (citizen of [place]) History of Present Illness ED Provider: irma marie pa-c HPI narrative: 69 year old female with pmhx HLD, HTN, T2DM, aortic stenosis, hyperparathyroidism, OA, GERD, diverticulosis presents to the ED today for evaluation of headache x2 days. Headache is located along the right side of her head with radiation down her right neck. She describes this as a throbbing sensation. She states sounds appear louder in her right ear. She has been taking tylenol at home which temporarily relieves her headache. States this feels like her typical headache. Denies vision changes. Denies photophobia/phonophobia. Denies fever, chills, dizziness, N/V, chest pain, palpitations, sob, difficulty ambulating. denies trauma/injury/falls. Also endorses atrauamtic bilateral knee pain. Reports OA in both knees. No injury/ trauma/ falls. Denies numbness/weakness/tingling of the LEs. spanish interpreter/translator utilized throughout the visit to communicate with patient. Related Data Home Medications ?Medication ?Instructions ?Recorded ?Confirmed albuterol sulfate 90 mcg/actuation 2 puff inhalation Q4-6H PRN 12/24/19 05/15/24 aerosol inhaler (Ventolin HFA) Shortness Of Breath fluticasone propionate 110 1 puff inhalation BID 07/09/20 05/15/24 mcg/actuation HFA aerosol inhaler (Flovent HFA) loratadine 10 mg tablet 10 mg PO QAM 07/09/20 05/15/24 pen needle, diabetic 32 gauge x #50 ea 07/09/20 05/15/2432 clopidogrel 75 mg tablet 75 mg PO DAILY 01/27/21 05/15/24 atorvastatin 80 mg tablet (Lipitor) 80 mg PO DAILY 11/01/21 05/15/24 amlodipine 5 mg tablet 5 mg PO DAILY 11/03/21 05/15/24 furosemide 20 mg tablet 20 mg PO DAILY 11/03/21 05/15/24 metoprolol tartrate 50 mg tablet 50 mg PO BID 11/03/21 05/15/24 omeprazole 20 mg capsule,delayed 20 mg PO DAILY 11/03/21 05/15/24 release acetaminophen 500 mg tablet 500 mg PO Q12H PRN Pain 01/28/22 05/15/24 budesonide 90 mcg/actuation breath 2 inh inhalation BID 01/28/22 05/15/24 activated powder inhaler (Pulmicort Flexhaler) cyclobenzaprine 5 mg tablet 5 mg PO TID PRN Pain 01/28/22 05/15/24 ferrous sulfate 325 mg (65 mg 325 mg PO TID 01/28/22 05/15/24 iron) tablet insulin lispro 100 unit/mL See Rx Instructions subcut TID 10/19/23 05/15/24 subcutaneous pen (Humalog KwikPen (U-100) Insulin) insulin glargine 100 unit/mL (3 38 unit subcut BEDTIME 11/22/23 05/15/24 mL) subcutaneous pen (Lantus Solostar U-100 Insulin) Previous Rx's ?Medication ?Instructions ?Recorded blood-glucose meter (OneTouch #1 ea 06/30/21 Verio Flex Meter) baclofen 10 mg tablet 10 mg PO BID muscle spasms #10 tabs 08/08/22 bisacodyl 10 mg rectal suppository 10 mg MT DAILY PRN constipation 03/21/23 (Dulcolax (bisacodyl)) #20 ea polyethylene glycol 3350 17 17 g PO DAILY 30 days #510 grams 03/21/23 gram/dose oral powder (Miralax) blood-glucose meter,continuous #1 ea 07/10/23 (FreeStyle Collin 3 Blackduck) lancets #200 ea 08/28/23 pioglitazone 30 mg tablet (Actos) 30 mg PO DAILY #90 tabs 10/19/23 blood sugar diagnostic (OneTouch #100 strips 11/15/23 Verio test strips) lancets 33 gauge (TRUEplus Lancets) #100 ea 11/20/23 ezetimibe 10 mg tablet 10 mg PO QAM #90 tabs 12/20/23 blood-glucose sensor (FreeStyle #2 kits 01/25/24 Collin 3 Sensor device) calcium 200 mg (as 2 tab PO DAILY #120 tabs 01/29/24 citrate)-vitamin D3 6.25 mcg (250 unit) tablet calcium polycarbophil 625 mg 1,250 mg (2 x 625 mg) PO QAM #60 02/23/24 tablet (Fiber-Lax) tabs docusate sodium 100 mg capsule 200 mg (2 x 100 mg) PO BEDTIME #60 03/21/24 caps semaglutide 0.25 mg or 0.5 mg (2 0.5 mg (0.736 mL) subcut QWEEK 4 05/01/24 mg/3 mL) subcutaneous pen injector weeks #3 mL (Ozempic) cholecalciferol (vitamin D3) 25 25 mcg PO QAM #90 caps 05/23/24 mcg (1,000 unit) capsule (Vitamin D3) sennosides 8.6 mg tablet (senna) 8.6 mg PO DAILY PRN for 05/23/24 constipation #30 tabs acetaminophen 650 mg 650 mg PO Q12H PRN pain (scale 06/08/24 tablet,extended release (Tylenol score 1-3) #20 tabs Arthritis Pain) Allergies Allergy/AdvReac Type Severity Reaction Status Date / Time morphine [Morphine] Allergy Intermediate TACHYCARDIA, Verified 06/08/24 16:05 ANXIETY oxycodone [Percocet] Allergy Intermediate Palpitation Verified 06/08/24 16:05 s prednisone [PREDNISONE] AdvReac Intermediate ANXIETY Verified 06/08/24 16:05 Review of Systems Review of Systems: Yes all other systems are reviewed and are negative [facility] Past Medical History Attestation statement: The following information was validated with the patient. Source: old records reviewed and nursing notes reviewed Medical History Abnormal Pap smear of cervix Osteoporosis Goiter Hyperparathyroidism Hypercalcemia Vitamin D deficiency HLD (hyperlipidemia) HTN (hypertension) T2DM (type 2 diabetes mellitus) On beta anurag at home Chronic constipation Diabetes Anemia GERD (gastroesophageal reflux disease) Sleep apnea Asthma CAD (coronary artery disease) Angina pectoris HTN (hypertension) Surgical History Hx of heart artery stent Hx of cholecystectomy History of esophagogastroduodenoscopy (EGD) H/O colonoscopy Family History Family History Father Liver problem Mother Diabetes Obesity Social History Social History Household Members Other:: With Housing: House Alcohol intake: never Patient Tobacco Use Status: Never used Tobacco Current occupational status: disabled Sexual orientation: Straight/Heterosexual Gender identity: Female Physical Exam ED Vital Signs: Vital Signs - 24 hr 06/08/24 19:48 Temperature 97.7 F Pulse Rate 84 Respiratory Rate 16 Blood Pressure 144/70 H Pulse Oximetry 97 Oxygen Delivery Method Room Air BMI result Body Mass Index 35.5 hypertensive, vitals otherwise wnl General: Well appearing, in no acute distress. Skin: Warm, dry, intact. No rashes or lesions. Head: Normocephalic, atraumatic. no scalp tenderness. no palpable temporal aa. EENT: Hearing is intact b/l. Conjunctiva clear. EOM intact. Moist mucous membranes.? Cardiac: Chest wall symmetric. RRR. Lungs: Normal respiratory effort without accessory muscle use. CTA bilaterally. Back: No midline spinous or paraspinal tenderness. No step off deformity. Ext: Upper and lower extremities atraumatic, without tenderness, deformity, swelling or erythema. Full ROM throughout. no peripheral edema. no calf tenderness. Pulses 2+ equal and bilateral. Neuro: AOx3. NIH 0. Normal speech. Strength 5/5 intact throughout. Sensation intact to light touch. normal finger to nose, heel to valente. Ambulating with steady gait. Course Course Course Narrative: Medical screening exam performed. Please refer to detailed history, exam, evaluation, and management by primary provider. 69-year-old Argentine-speaking female, 2 day history of headache, throbbing and bilateral tenderness. Afebrile and hemodynamically stable. Reevaluation(s) Reevaluation #1: CBC without leukocytosis or left shift. normocytic anemia, h&h around baseline when compared to priors. BMP without electrolyte abnormality requiring intervention. renal function around baseline. glucose 227. no anion gap. negative covid/flu/rsv. CT head wihtout bleed or mass. CTA head/neck without significant stenosis. xr b/l knees shows arthritic changes. no acute fracture or effusion. > fioricet and 1L IVF given > on re-evaluation, patient reports significant improvement in VALENCIA with fioricet. rates VALENCIA 2/10. advised tylenol/motrin at home. Patient has remained stable throughout ED visit today. Discussed worrisome signs and symptoms and when to return to the ED. All questions answered at this time. Patient is agreeable with disposition and stable for discharge. Medications Administered Discontinued Medications Generic Name Dose Route Start Last Admin Trade Name Jennifer PRN Reason Stop Dose Admin Acetaminophen/Butalbital/Caffeine 1 tab 06/08/24 17:07 06/08/24 17:15 Butalb/Acetamin/Caff 50/325/40 Tablet PO 06/08/24 17:08 1 tab ONCE ONE Administration Sodium Chloride 1,000 mls @ 999 mls/hr 06/08/24 17:15 06/08/24 19:31 Ns IV 06/08/24 18:15 Infused .Q1H1M GELACIO Infusion Iohexol 100 ml 06/08/24 17:56 06/08/24 17:57 Iohexol 350 Mg/Ml 100 Ml Infus..Btl IV 06/08/24 17:57 65 ml ONCE ONE Administration Medical Decision Making Medical Decision Making [facility] Narrative: 69 year old female with pmhx HLD, HTN, T2DM, aortic stenosis, hyperparathyroidism, OA, GERD, diverticulosis presents to the ED today for evaluation of headache x2 days. Differential diagnosis includes anemia, electrolyte abnormality, dehydration, viral syndrome, migraine vs tension type headache. No headache red flags. Neurologic exam without evidence of meningismus. No focal neurologic findings. Presentation not consistent with acute intracranial bleed including SAH. Presentation not consistent with acute RECEIVER STOCKER infection including meningitis or brain abscess. Temporal arteritis unlikely, as is acute angle closure glaucoma given history and physical findings. Presentation not consistent with other acute, emergent causes of headache at this time. Plan to treat symptomatically with pain medication. No indication for LP at this time. Concern for knee arthritis, bursitis, tendonitis. Lower suspicion for fracture, dislocation, contusion. unlikely nv compromise, threat to limb, compartment syndrome, graves's cyst, dvt. Plan: labs, viral swabs, pain control +IVF, CT brain, knee xrs, reassessment Differential Diagnosis Differential Diagnoses: The differential diagnosis associated with the presentation includes as above. Admission/Observation not indicated. Lab Data [facility] Lab Attestation statement: I reviewed the patient's lab results. as above. 06/08/24 16:18 06/08/24 16:18 Labs: Lab Results 06/08/24 Range/Units 16:18 WBC 6.4 (4.8-10.8) X10*3/uL RBC 3.75 L (4.20-5.50) X10*6/uL Hgb 11.5 L (12.0-16.0) g/dl Hct 35.0 L (37.0-47.0) % MCV 93.3 (80.0-98.0) fL MCH 30.7 (27.0-33.0) pg MCHC 32.9 (31.0-35.0) g/dl RDW 13.0 (11.0-16.0) % Plt Count 236 (160-400) X10*3/uL MPV 9.8 (9.4-12.3) fL Immature Gran % (Auto) 0.5 H (0.0-0.4) % Neut % (Auto) 62.4 (45-73) % Lymph % (Auto) 29.3 (20-40) % [place] % (Auto) 6.3 (2-11) % Eos % (Auto) 1.3 (0-4) % Baso % (Auto) 0.2 (0-2) % Lymph # (Auto) 1.9 (1.2-4.9) X10*3/uL [place] # (Auto) 0.4 (0.1-1.2) X10*3/uL Eos # (Auto) 0.1 (0.0-0.4) X10*3/uL Baso # (Auto) 0.0 (0.0-0.2) X10*3/uL Abs Immat Gran (auto) 0.03 (0.00-0.03) X10*3/uL Absolute Neuts (auto) 4.0 (2.0-8.3) x10*3/uL Absolute Nucleated RBC 0.000 (0.0-0.012) X10*3/uL Nucleated RBC % (auto) 0.0 (0.0-0.2) /100WBC Sodium 142 (135-145) mmol/L Potassium 4.8 (3.3-5.1) mmol/L Chloride 107 (96-108) mmol/L Carbon Dioxide 28 (22-29) mmol/L Anion Gap 12 (12-20) BUN 33 H (9-16) mg/dL Creatinine 1.41 H (0.5-1.4) mg/dL Estim Creat Clear Calc 34.3 Estimated GFR 37 Random Glucose 227 H (60-115) mg/dL Calcium 10.1 (8.4-10.2) mg/dL Influenza Type A (PCR) NEGATIVE (Negative) Influenza Type B (PCR) NEGATIVE (Negative) RSV RNA Qual (PCR) NEGATIVE (Negative) SARS-CoV-2 RNA (RT-PCR) NEGATIVE (Negative) Independent Interpretation I performed an independent interpretation of an: Plain X-Ray and CT Scan Interpretation: CT head/ brain without bleed or mass CTA head/neck without stenosis XR right/ left knees without fracture or effusion Radiology Impression Discussion of test interpretation with radiology: I have reviewed the radiologist's reading. Radiologist Impression: Date of Service: 06/08/24 Procedure(s): CT angio head neck Accession Number(s): [id number] cc: James Trimble MD; Irma Marie~ Report Number: [id number]: Total DLP = 1370.00 mGy-cm CLINICAL HISTORY: R sided VALENCIA, neck pain, hearing changes CT head without contrast. CT angiography head and neck with contrast. 3D Postprocessing. COMPARISON: None FINDINGS: HEAD CT: No intra-axial mass, midline shift, hydrocephalus, or acute hemorrhage. Periventricular areas of hypoattenuation consistent with mild white-matter small-vessel disease. Chronic lacunar infarcts present within the left basal ganglia. The visualized paranasal sinuses and mastoid air cells are normal. The orbits are unremarkable. Atherosclerotic intracranial vasculature. No calvarial fracture. HEAD AND NECK CTA: Aortic arch and cervical great vessels are patent. Minimal calcified plaque present at the carotid bulb on the left without significant stenosis. Calcified plaque present at the cavernous portion of the internal carotid arteries bilaterally with a significant stenosis. Otherwise the intracranial arteries are patent. No aneurysm, dissection, or occlusion. No abnormal intracranial enhancement. Thyroid nodule along the isthmus measuring 1.7 cm. No cervical mass or fluid collection. Visualized lung apices are clear. No acute fracture. IMPRESSION: 1. Unremarkable head CT. 2. Patent head and neck CTA. This document has been electronically signed by: Reginaldo Lowry MD on 06/08/2024 19:19:32 Date of Service: 06/08/24 Procedure(s): XR knee RT 4V Accession Number(s): [id number] cc: James Trimble MD; Irma Marie~ CLINICAL HISTORY: posterior knee pain Four views of the right knee. COMPARISON: XR right knee dated 05/30/24 at 10:52 EDT FINDINGS: No suprapatellar joint effusion. Atherosclerotic vascular disease. Lateral compartment joint space narrowing. Osteophytes present along the lateral compartment. Tibial spine spurring. Visualized portions of the distal femur, patella, and proximal tibia and fibula appear intact. IMPRESSION: 1. No radiographic evidence of acute injury to the right knee. 2. Hyyh-yh-inatvnbi lateral compartment degenerative changes. This document has been electronically signed by: Reginaldo Lowry MD on 06/08/2024 18:30:46 Date of Service: 06/08/24 Procedure(s): XR knee LT 4V Accession Number(s): [id number] cc: James Trimble MD; Irma Marie~ CLINICAL HISTORY: posterior knee pain Four views of the left knee. COMPARISON: XR left knee dated 05/30/24 at 10:50 EDT FINDINGS: No appreciable suprapatellar joint effusion. Atherosclerotic vascular disease. Medial joint space narrowing. Small osteophytes present along the medial and patellofemoral compartments. Tibial spine spurring. Visualized portions of the distal femur, patella, and proximal tibia and fibula appear intact. IMPRESSION: 1. No radiographic evidence of acute injury to the left knee. 2. Mild degenerative changes of the left knee most pronounced within the medial compartment. This document has been electronically signed by: Reginaldo Lowry MD on 06/08/2024 18:29:13 External Record Review External record reviewed: Inpatient record Prescription Management I considered prescription management with: Pain Medication Chronic Conditions Patient?s care impacted by: Diabetes and Hypertension Social Determinants Patient?s care significantly limited by Social Determinants of Health including: Other Social Determinant of Health Critical Care Time Critical Care Time Critical Care Time: No Discharge Plan Discharge Clinical Impression: Headache, Arthritis Patient Disposition: Home, Self-Care Instructions: Osteoarthritis (ED), General Headache (ED) Additional Instructions: You have been evaluated in the Emergency Department today for headache. Your evaluation did not show evidence of medical conditions requiring emergent intervention at this time, and your pain improved with medication in the ED. Sometimes it is difficult to explain the cause of headache but the negative workup today is reassuring. The xrays of your knees show degenerative arthritic changes. You may take motrin at home for pain. The CT scan of your head/ neck does not demonstrate bleed or significant arterial stenosis There is an incidental finding of thyroid nodule. Please follow up with your primary care physician for this. Return to the Emergency Department if you experience worsening or uncontrolled pain, vision changes, recurrent vomiting, difficulty with normal activities, abnormal behavior, difficulty walking, numbness, weakness, or any other concerning symptoms. Prescriptions: New acetaminophen [Tylenol Arthritis Pain] 650 mg tablet extended release 650 mg PO Q12H PRN (Reason: pain (scale score 1-3)) Qty: 20 0RF No Action (DME) blood-glucose meter [OneTouch Verio Flex meter] Misc See Rx Instructions .Route Qty: 1 0RF Rx Instructions: As directed acetaminophen 500 mg tablet 500 mg PO Q12H PRN (Reason: Pain) cyclobenzaprine 5 mg tablet 5 mg PO TID PRN (Reason: Pain) ferrous sulfate 325 mg (65 mg iron) tablet 325 mg PO TID Pulmicort Flexhaler 90 mcg/actuation aerosol powdr breath activated 2 inh inhalation BID (DME) FreeStyle Collin 3 Blackduck Misc See Rx Instructions .Route Qty: 1 0RF Rx Instructions: As directed (DME) lancets Misc See Rx Instructions .Route Qty: 200 5RF Rx Instructions: As directed (DME) OneTouch Verio test strips Strip See Rx Instructions .ROUTE .COMPLEX Qty: 100 11RF Dose Instruction: TEST BLOOD SUGAR THREE OR FOUR TIMES DAILY Rx Instructions: TEST BLOOD SUGAR THREE OR FOUR TIMES DAILY (DME) lancets [TRUEplus Lancets] 33 gauge misc See Rx Instructions .Route Qty: 100 11RF Rx Instructions: As directed to test blood sugar 3-4 times a day ezetimibe 10 mg tablet 10 mg PO QAM Qty: 90 3RF (DME) FreeStyle Collin 3 Sensor Device See Rx Instructions .ROUTE .COMPLEX Qty: 2 4RF Dose Instruction: USE DIRECTED. CHANGE EVERY 14 DAYS Rx Instructions: USE DIRECTED. CHANGE EVERY 14 DAYS calcium citrate-vitamin D3 200 mg-6.25 mcg (250 unit) tablet 2 tab PO DAILY Qty: 120 3RF Fiber-Lax 625 mg tablet 1,250 mg PO QAM Qty: 60 3RF docusate sodium 100 mg capsule 200 mg PO BEDTIME Qty: 60 5RF sennosides [senna] 8.6 mg tablet 8.6 mg PO DAILY PRN (Reason: for constipation) Qty: 30 1RF cholecalciferol (vitamin D3) [Vitamin D3] 25 mcg (1,000 unit) capsule 25 mcg PO QAM Qty: 90 3RF albuterol sulfate [Ventolin HFA] 90 mcg/actuation Hfa Aerosol Inhaler 2 puff INHALATION Q4-6H PRN (Reason: Shortness Of Breath) Flovent HFA 110 mcg/actuation HFA aerosol inhaler 1 puff INHALATION BID baclofen 10 mg tablet 10 mg PO BID Qty: 10 0RF (DME) pen needle, diabetic 32 gauge x 5/32 needle See Rx Instructions .ROUTE QID Qty: 50 Rx Instructions: As directed loratadine 10 mg tablet 10 mg PO QAM clopidogrel 75 mg tablet 75 mg PO DAILY insulin lispro [Humalog KwikPen Insulin] 100 unit/mL insulin pen See Rx Instructions subcut TID Rx Instructions: Sliding Scale 6-16 subcutaneously 3 times a day; metoprolol tartrate 50 mg tablet 50 mg PO BID amlodipine 5 mg tablet 5 mg PO DAILY omeprazole 20 mg capsule,delayed release(DR/EC) 20 mg PO DAILY furosemide 20 mg tablet 20 mg PO DAILY atorvastatin [Lipitor] 80 mg tablet 80 mg PO DAILY polyethylene glycol 3350 [Miralax] 17 gram/dose powder 17 g PO DAILY 30 Days Qty: 510 6RF Rx Instructions: Take QHS bisacodyl [Dulcolax (bisacodyl)] 10 mg suppository 10 mg MT DAILY PRN (Reason: constipation) Qty: 20 0RF Lantus Solostar U-100 Insulin 100 unit/mL (3 mL) insulin pen 38 unit subcut BEDTIME pioglitazone [Actos] 30 mg tablet 30 mg PO DAILY Qty: 90 3RF Ozempic 0.25 mg or 0.5 mg (2 mg/3 mL) pen injector 0.5 mg subcut QWEEK 28 Days Qty: 3 5RF Referrals: James Trimble MD [Primary Care Provider] - Interventions: ED Discharge Assessment Last Done: 06/08/24 19:48 Discharge Date/Time: 06/08/24 19:53 Print Language: Argentine
[2024-06-08 16:02] VITALS: BP 113/72; PULSE 83; RESP 18; TEMP 36.8; O2SAT 97; BMI 35.5
[2024-06-08 16:22] LABS: MANUAL DIFF FLAG NO
[2024-06-08 16:23] VITALS: BP 130/68; PULSE 79; RESP 16; O2SAT 98
[2024-06-08 16:24] LABS: Basophils Percent Auto 0.2 % (0-2); Eosinophils Absolute Auto 0.1 X10*3/uL (0.0-0.4); Eosinophils Percent Auto 1.3 % (0-4); Hemoglobin 11.5 g/dl (12.0-16.0); Imm Gran Abs Auto 0.03 X10*3/uL (0.00-0.03); Imm Gran Pct Auto 0.5 % (0.0-0.4); Lymphocytes Absolute Auto 1.9 X10*3/uL (1.2-4.9); Lymphocytes Percent Auto 29.3 % (20-40); Mean Corpuscular HGB Conc 32.9 g/dl (31.0-35.0); Mean Corpuscular Hemoglobin 30.7 pg (27.0-33.0); Mean Corpuscular Volume 93.3 fL (80.0-98.0); Mean Platelet Volume 9.8 fL (9.4-12.3); Monocytes Absolute Auto 0.4 X10*3/uL (0.1-1.2); Monocytes Percent Auto 6.3 % (2-11); Neutrophils Percent Auto 62.4 % (45-73); Platelet Count 236 X10*3/uL (160-400); Red Blood Count 3.75 X10*6/uL (4.20-5.50); White Blood Count 6.4 X10*3/uL (4.8-10.8)
[2024-06-08 16:35] LABS: Anion Gap 12 (12-20); Blood Urea Nitrogen 33 mg/dL (9-16); Calcium 10.1 mg/dL (8.4-10.2); Carbon Dioxide 28 mmol/L (22-29); Chloride 107 mmol/L (96-108); Creatinine Clr Calc Pharmacy 34.3; Estimated Glomerular Filt Rate 37; Glucose Random 227 mg/dL (60-115); Potassium 4.8 mmol/L (3.3-5.1); Sodium 142 mmol/L (135-145)
[2024-06-08 17:00] LABS: Influenza A PCR NEGATIVE (Negative); Influenza B PCR NEGATIVE (Negative); Resp Syncy Virus RNA Qual PCR NEGATIVE (Negative); SARS COV2 PCR INHOUSE NEGATIVE (Negative)
[2024-06-08] MEDS: 0.9 % Sodium Chloride 1,000 ML 999 ML IV (17:12)
[2024-06-08] MEDS: Butalb/Acetamin/Caff 50/325/40 TABLET 1 TAB PO (17:15)
[2024-06-08] MEDS: iohexoL 350 MG/ML 100 ML INFUS..BTL IV (17:57)
[2024-06-08 19:48] VITALS: BP 144/70; PULSE 84; RESP 16; TEMP 36.5; O2SAT 97
== END 2024-06-08 19:53 | disposition home or self-care (01) ==
PROVIDERS: Physician Assistant; Emergency Provider Internal Medicine; PCP Internal Medicine
DX: R51.9 Headache, unspecified (principal); R42 Dizziness and giddiness; M54.2 Cervicalgia; M17.0 Bilateral primary osteoarthritis of knee; H92.01 Otalgia, right ear; M25.562 Pain in left knee; M25.561 Pain in right knee; R11.0 Nausea; Z79.899 Other long term (current) drug therapy; Z03.818 Encounter for observation for suspected exposure to other biological agents ruled out
CPT/HCPCS: 0241U; 70496; 70498; 73564; 80048; 85025; 96360; 96361; 99284; 99285; Q9967

== ENCOUNTER → 2024-06-08 17:01 | Outpatient (BNV) | payer OTHER, SELFPAY | PROVIDERS: Emergency Provider Internal Medicine; PCP Internal Medicine; Visit Provider Radiology Diagnostic Radiology | DX: R51.9 Headache, unspecified (principal); M54.2 Cervicalgia; M25.562 Pain in left knee; M17.11 Unilateral primary osteoarthritis, right knee | CPT/HCPCS: 70496; 70498; 73564 ==

== ENCOUNTER → 2024-06-10 08:03 | Outpatient (REF) | payer OTHER, SELFPAY ==
--- NOTE | 2024-06-10 08:05 | CA_ITS ---
Transthoracic Echocardiogram Patient (Last, First, Middle): Jayne Lane, Gender: Female Date of : 1955 Age: 69 Procedure Date: 06/10/2024 Procedure Type: Transthoracic Echocardiogram Location: OP Height: 149. cm Weight: 80.74 kg BSA: 1.75 m2 Heart Rate: 70 bpm BP: 130 / 70 mmHg In Mold Coater: GUS Referring MD: Rohan Singh MD Symptoms: I25.10 - Atherosclerotic heart disease of [place] coronary artery without... Study Quality: Fair, Adequate ECG Rhythm: Sinus Conclusions: - The left ventricular systolic function is normal. The calculated ejection fraction is 58% by biplane method. - The basal inferior segment is akinetic. - There is moderate calcification of the aortic valve. There is mild aortic valve stenosis. Findings Left Ventricle Normal left ventricular cavity size. The left ventricular systolic function is normal. The calculated ejection fraction is 58% by biplane method. There is no evidence of regional wall motion abnormalities. Evidence suggests grade I (mild) diastolic dysfunction. There is mild septal asymmetric hypertrophy. Wall Motion Rest Echo Findings The basal inferior segment is akinetic. Right Ventricle Normal right ventricular cavity size and systolic function. Atria Both atria are normal in size. Aortic Valve There is moderate calcification of the aortic valve. There is mild aortic valve stenosis. There is no aortic valve regurgitation. Mitral Valve The mitral valve appears normal. There is no mitral valve regurgitation. There is no mitral valve stenosis. Pulmonic Valve The pulmonic valve is likely normal. Tricuspid Valve There is trace tricuspid valve regurgitation. Tricuspid regurgitation envelope is inadequate for calculation of right ventricular systolic pressure. Great Vessels The asc aorta is normal in size. Venous The inferior vena cava is normal in size and collapses greater than 50% with inspiration. Pericardium/Pleural There is no evidence of pericardial effusion. Prior Study Comparison Changes noted compared to prior study dated: 01/04/2022. See comment on basal inferior wall. Possibly present in prior images, but difficult to assess due to image quality. Measurements 2D Linear Measurements IVSd: 1.03 0.6-0.9/0.6-1.0 cm LVIDd: 3.41 3.9-5.3/4.2-5.9 cm LVIDd Index: 1.95 2.4-3.2/2.2-3.1 cm/m2 LVIDs: 2.32 2.0-3.6 cm LVPWd: 0.88 0.7-1.1 cm LA Diam: 2.90 2.7-3.8/3.0-4.0 cm LAIDs Index: 1.66 1.5-2.3 cm/m2 LV Mass: 115.71 67-162/88-224 g LV Mass Index: 66.12 43-95/49-115 g/m2 LVOT Diam: 2.00 3.0+(-)1.3 cm 2D Systolic Function EF 4C: 61.80 >55% EF 2C: 53.70 >55% EF BiP: 58.20 >55% Mitral Valve MV Pk E: 1.19 MV PK A: 1.42 MV Decel Time: 231.00 E/A: 0.80 E'Lateral: 7.07 E'Medial: 5.33 E/E' Med: 22.30 E/E' Lat: 16.80 PHT: 68.00 MVA PHT: 3.24 Decel Bell: 5.17 Aortic Valve AoV Pk Fausto: 2.22 AoV Mn Fausto: 1.59 AoV VTI: 0.54 AoV Pk Grad: 20.00 Aov Mn Grad: 12.00 DAV Cont.VTI: 1.24 LVOT LVOT Pk Fausto: 0.87 LVOT Mn Fausto: 0.68 LVOT VTI: 0.21 LVOT Pk Grad: 3.00 LVOT Mn Grad: 2.00 LVOT Diam: 2.00 LVOT Area: 3.14 Diastolic Function MV Pk E: 1.19 MV Pk A: 1.42 E/A: 0.80 E'Medial: 5.33 E/E' Med: 22.30 E' Laterial: 7.07 E/E' Lat: 16.80 Right Ventricle TAPSE (mm): 17.90 TVS' Fausto: 11.30 Tricuspid Valve RA Press: 3.00 Great Vessels Aorta Sinus of Valsalva: 2.70 2.0-3.5 cm Ao Asc: 2.70 2.1-3.4 cm Pulmonary Valve PV Pk Fausto: 0.79 Peak PV Grad: 2.00 Updated in Other Vendor System with Status of Final Rohan Singh MD electronically signed on 06/10/2024 10:40:16 AM with status of Final
== END ==
LOC: HO.CARD 08:03
PROVIDERS: PCP Internal Medicine; Visit Provider Internal Medicine
DX: I25.10 Atherosclerotic heart disease of native coronary artery without angina pectoris (principal); I35.0 Nonrheumatic aortic (valve) stenosis
CPT/HCPCS: 93306

== ENCOUNTER → 2024-06-10 08:05 | Outpatient (BNV) | payer OTHER, SELFPAY | PROVIDERS: PCP Internal Medicine; Visit Provider Internal Medicine | DX: I42.2 Other hypertrophic cardiomyopathy (principal); I25.10 Atherosclerotic heart disease of native coronary artery without angina pectoris; I35.0 Nonrheumatic aortic (valve) stenosis | CPT/HCPCS: 93306 ==

== ENCOUNTER 2024-06-19 10:53 | Outpatient (REF) | payer OTHER, SELFPAY ==
[2024-06-19 12:10] LABS: Albumin Level 4.1 g/dL (3.5-5.0); Calcium 10.6 mg/dL (8.4-10.2)
[2024-06-19 12:32] LABS: Parathyroid Hormone Intact 60.9 pg/mL (8.7-77.1)
--- OUTSIDE RECORDS SUMMARY | 2024-06-19 12:44 | XMS_ITS | Encounter Summary ---
Author Organization [employer] [facility] Address [address] [facility] 7t [place] [address] Care Team Providers Care Senior Financial Reporting Analyst Name Role Phone James Flores MD Primary Care Provide r Reason for Visit * Reason Comments Med Refill Encounter Details Date Type Department Care Team (Late Contact Info) Description 08/21/2022 Refill [facility] [address] [place] [address] James Flores MD [address] [place] [address] [phone] Social History Tobacco Use Types Packs/Day Years [...] Department Care Team (Late Contact Info) Description 07/23/2024 11:00 AM EDT Office Visit [facility] [address] [place], [place] [phone] James Flores MD [address] [place] [address] [phone] 09/03/2024 11:15 AM EDT Office Visit [facility] [address] [place] [address] James Flores MD [address] [place] [address] documented as of this encounter Visit Diagnoses Not on filedocumented in this encounter Care Teams Senior Financial Reporting Analyst Relationship Specialty Start Date End Date James Flores MD [facility] [place] [address] PCP - General Internal Medicine 02/04/14 documented as of this encounter
--- OUTSIDE RECORDS SUMMARY | 2024-06-19 12:44 | XMS_ITS | Encounter Summary ---
Author Organization [employer] Address [address] [facility] 7t [place] [address] Care Team Providers Care Mold Press Operator Name Role Phone James Flores MD Primary Care Provide r Encounter Details Date Type Department Care Team ([facility] st Contact Info) Description 01/11/2024 Telephone [facility] [address] [place], [place] [phone] Jaems Flores MD [address] [place], [place] [phone] Social History Tobacco Use Types Packs/Day Years [...] Care Team (Late st Contact Info) Description 07/23/2024 11:00 AM EDT Office Visit [facility] [address] [place] [address] James Flores MD [address] [place] [phone] 09/03/2024 11:15 AM EDT Office Visit [facility] [address] [place] [address] James Flores MD [address] [place] [phone] documented as of this encounter Visit Diagnoses Not on filedocumented in this encounter Care Teams Mold Press Operator Relationship Specialty Start Date End Date James Flores MD [address] [place] [address] PCP - General Internal Medicine 02/04/14 documented as of this encounter
--- OUTSIDE RECORDS SUMMARY | 2024-06-19 12:44 | XMS_ITS | Encounter Summary ---
Author Organization [employer] [facility] Address [address] [facility] 7t [place] [address] Care Team Providers Care Machine Stuffer Automatic Name Role Phone James Flores MD Primary Care Provide r Reason for Visit * Reason Comments Med Refill Encounter Details Date Type Department Care Team (Late st Contact Info) Description 08/27/2023 Refill [facility] [address] [place] [address] Name, MD Loki [address] [place] [address] Gastroesophageal reflux disease without esophagitis Social History [...] Description 07/23/2024 11:00 AM EDT Office Visit [facility] [address] [place] [phone] James Flores MD [address] [place] [phone] 09/03/2024 11:15 AM EDT Office Visit [facility] [address] [place] [address] James Flores MD [address] [place] [phone] documented as of this encounter Visit Diagnoses Diagnosis Gastroesophageal reflux disease without esophagitis Esophageal reflux documented in this encounter Care Teams Machine Stuffer Automatic Relationship Specialty Start Date End Date James Flores MD [address] [place] [phone] PCP - General Internal Medicine 02/04/14 documented as of this encounter
--- OUTSIDE RECORDS SUMMARY | 2024-06-19 12:44 | XMS_ITS | Encounter Summary ---
Author Organization [facility] [facility] Address [address] [facility] 7t [place] [address] Care Team Providers Care Neurology Physician Assistant Name Role Phone James Flores MD Primary Care Provide r Reason for Visit * Reason Onset Date Comments Durable Medical Equipment 09/27/2023 Encounter Details Date Type Department Care Team (Late st Contact Info) Description 09/27/2023 Telephone [facility] [address] [place] [address] James Flores MD [address] [place], [place] [phone] Durable Medical Equipment Social History Tobacco Use [...] 1 flip pillow DME Please contact at [phone] * Telephone Encounter - Fernando Christie - 09/27/2023 2:40 PM EDT Tc from pt 10 in 1 flip pillow due to issues sleeping. Pt would like script to be faxed to [facility]. If any questions you can contact pt at [phone]. documented in this encounter Plan of Treatment Upcoming Encounters Date Type Department Care Team ([facility] st Contact Info) Description 07/23/2024 11:00 AM EDT Office Visit [facility] [address] [place] [phone] James Flores MD [address] [place] [phone] 09/03/2024 11:15 AM EDT Office Visit [facility] [address] [place] [phone] James Flores MD [address] [place] [phone] documented as of this encounter Visit Diagnoses Not on filedocumented in this encounter Care Teams Neurology Physician Assistant Relationship Specialty Start Date End Date James Flores MD [address] [place] [address] PCP - General Internal Medicine 02/04/14 documented as of this encounter
--- OUTSIDE RECORDS SUMMARY | 2024-06-19 12:44 | XMS_ITS | Encounter Summary ---
Author Organization [employer] Address [address] [facility] 7t [place] [address] Care Team Providers Care Claim Investigator Name Role Phone James Flores MD Primary Care Provide r Reason for Visit * Reason Comments Med Refill Encounter Details Date Type Department Care Team (Late st Contact Info) Description 05/10/2024 Refill [facility] [address] [place] [address] Coco Montiel NP [address] [place] [address] Mild intermittent asthma without complication Social History [...] Description 07/23/2024 11:00 AM EDT Office Visit [facility] [address] [place] [phone] James Flores MD [address] [place] [phone] 09/03/2024 11:15 AM EDT Office Visit [facility] [address] [place] [phone] James Flores MD [address] [place] [phone] documented as of this encounter Visit Diagnoses Diagnosis Mild intermittent asthma without complication documented in this encounter Additional Health Concerns Assessment Noted Time PHQ-9 Depression Total Score: 0 01/30/20 24 10:37 AM EST documented as of this encounter Care Teams Claim Investigator Relationship Specialty Start Date End Date James Flores MD [address] [place] [phone] PCP - General Internal Medicine 02/04/14 documented as of this encounter
--- OUTSIDE RECORDS SUMMARY | 2024-06-19 12:44 | XMS_ITS | Patient Health Record ---
Author Organization [facility] Address [address] [place] [address] Care Team Providers Care Deck Specialist Name Role Phone Rudy Ashraf MD, James Primary Care Provide r Unavailable Moris Duron Jr Unavailable Reason For Referral No Information Plan Of Treatment No Information Insurance Providers Payer Name Payer Address Payer Phone Subscriber Number Group Number Insured Name Patient Relationship to Insured Coverage Start Date Coverage End Date MEDICARE OF [place] [address] [place] [id number] [phone] [id number] STEPHANI JOE Self - patient is the insured MEDICAID OF [facility] [address] [place] [address] [id number] STEPHANI JOE Self - patient is the insured
--- OUTSIDE RECORDS SUMMARY | 2024-06-19 12:44 | XMS_ITS | Encounter Summary ---
Author Organization [employer] [facility] Address [address] [facility] 7t [place] [address] Care Team Providers Care Screening Tech Name Role Phone James Flores MD Primary Care Provide r Encounter Details Date Type Department Care Team (Late st Contact Info) Description 06/19/2024 Orders Only GENERIC EXTERNAL DATA DEPARTMENT Provider, [...] housing situation today? I have maríatania noriega 05/30/[address] you [...] Description 07/23/2024 11:00 AM EDT Office Visit [facility] [address] [place] [address] James Flores MD [address] [place] [address] 09/03/2024 11:15 AM EDT Office Visit [facility] [address] [place] [address] James Flores MD [address] [place], [place] [phone] documented as of this encounter Procedures Procedure Name Priority Date/Time Associated Diagnosis Comments PTH, INTACT WITHOUT CALCIUM Routine 06/19/2024 10:56 AM EDT VITAMIN D,25-OH,TOTAL,IA Routine 06/19/2024 10:26 AM EDT CALCIUM Routine 06/19/2024 10:26 AM EDT ALBUMIN Routine 06/19/2024 10:26 AM EDT documented in this encounter Results * PTH, Intact Without Calcium (06/19/2024 10:56 AM EDT) Parathyroid Hormone, Intact 60.9 8.7 - 77.1 pg/mL [facility] 06/19/2024 10:5 6 AM EDT 06/19/2024 11:40 AM EDT Generic External Data Provider LAB BLOOD ORDERAB LES Final Result Performing Organization Address [facility]/ZIP Co de Phone Number [facility] [address] [place] [address] [phone] * Vitamin D, 25-Hydroxy, Total, Immunoassay (06/19/2024 10:26 AM EDT) [facility] Vitamin D 25-OH Total 41.0 >30 ng/mL [facility] Comment: Health Based Reference Values*< 20 ??ng/mL ??Qjaotcoov83-00 ng/mL ??Insufficient> 30 ??ng/mL ??Sufficient*Altagracia GOODWIN. N Engl J Med. 2007;357:266-280There is no well-established upper level of normal vitamin Dlevels. Some laboratories use 50 ng/mL as an upper limit ofnormal. However, toxicity is patient-dependent and may occurat any level. Careful correlation with the patient'spresentation is necessary and, if there is concern forvitamin D toxicity, treatment should be consideredirrespective of the serum level.Care must be taken in interpreting Vitamin D results fromdifferent laboratories and methodologies. ??Published datademonstrated that results from patients undergoinghemodialysis may show a negative bias when tested withvarious automated 25-OH vitamin D assays when compared toLC- MS/MS.When testing samples from patients whose predominant form ofVitamin D is Vitamin D2, such as patients receiving VitaminD2 supplementation, results that are subtherapeutic shouldbe confirmed with another method such as LC-MS/MS. 06/19/2024 10:2 6 AM EDT 06/19/2024 11:49 AM EDT Generic External Data Provider LAB BLOOD ORDERAB LES Final Result Performing Organization Address [facility] Co de Phone Number [facility] [address] [place] [address] [phone] * Albumin (06/19/2024 10:26 AM EDT) Albumin Level 4.1 3.5 - 5.0 g/dL [facility] 06/19/2024 10:2 6 AM EDT 06/19/2024 11:49 AM EDT us Generic External Data Provider LAB BLOOD ORDERAB LES Final Result Performing Organization Address [facility] Co de Phone Number [facility] [address] [place] [address] [phone] * (ABNORMAL) Calcium (06/19/2024 10:26 AM EDT) Calcium 10.6(H) 8.4 - 10.2 mg/dL [facility] 06/19/2024 10:2 6 AM EDT 06/19/2024 11:49 AM EDT Generic External Data Provider LAB BLOOD ORDERAB LES Final Result Performing Organization Address [facility] de Phone Number [facility] [address] [place] [phone] documented in this encounter Visit Diagnoses Not on filedocumented in this encounter Additional Health Concerns Assessment Noted Time PHQ-9 Depression Total Score: 0 01/30/20 24 10:37 AM EST documented as of this encounter Care Teams Screening Tech Relationship Specialty Start Date End Date James Flores MD [address] [place] [phone] PCP - General Internal Medicine 02/04/14 documented as of this encounter
--- OUTSIDE RECORDS SUMMARY | 2024-06-19 12:44 | XMS_ITS | Clinical Summary ---
Author Organization [employer] Address [address] [facility] [address] [place] [address] Care Team Providers Care Supervisor Fruit Grading Name Role Phone James Flores MD Primary [...] the morning. 023 Active Calcium Citrate-Vitamin D ([place]trim Calcium/Vitamin D) 200-6.25 MG-MCG tablet TAKE 2 TABLETS BY MOUTH TWICE DAILY IN THE MORNING AND EVENING Active clopidogrel (Plavix) 75 MG tablet TAKE 1 TABLET BY MOUTH EVERY EVENING 90 tablet 3 Active Pentips 32G X 4 MM miscIndications: Type 2 diabetes mellitus without complication, with long-term current use of insulin (CMS/HCC) USE DIRECTED FOUR TIMES DAILY 100 each 6 024 Active Alcohol Swabs (Alcohol Prep) 70 % pads USE DIRECTED 100 each 11 024 Active amLODIPine (Norvasc) 5 MG tablet TAKE 1 TABLET BY MOUTH EVERY EVENING 30 tablet 5 Active loratadine (Claritin) 10 MG tabletIndication s:Seasonal allergies TAKE 1 TABLET BY MOUTH EVERY MORNING 30 tablet 5 Active polycarbophil (Fiber-Lax) 625 MG tablet Take 1,250 mg by mouth. Active pioglitazone (Actos) 30 MG tablet Take 30 mg by mouth in the morning. Active sodium zirconium cyclosilicate (Lokelma) 5 g [...] CHANGE EVERY 14 DAYS Active Continuous Glucose Central Office Worker (FreeStyle Collin 3 Ferris) device USE DIRECTED Active bisacodyl (Dulcolax) 10 MG suppository INSERT 1 SUPPOSITORY RECTALLY ONCE DAILY NEEDED FOR CONSTIPATION Active atorvastatin (Lipitor) 80 MG tabletIndication s:Mixed hyperlipidemia TAKE 1 TABLET BY MOUTH AT BEDTIME 30 tablet 5 Active Albuterol Sulfate 108 (90 Base) MCG/ACT aerosol powderIndication s:Mild intermittent asthma without complication Inhale 2 puffs by mouth every 4 to 6 hours as needed 8.5 each 3 024 Active albuterol (2.5 MG/3ML) 0.083% nebulizer solutionIndicati ons:Mild intermittent asthma without complication Take 3 mL by nebulization if needed in the morning, at noon, in the evening, and at bedtime (use 4-6 times a day as needed). 90 mL 3 024 Active insulin glargine (Lantus SoloStar) 100 UNIT/ML penIndications:T ype 2 diabetes mellitus without complication, with long-term current use of insulin (CMS/[facility]) INJECT 35 UNITS SUBCUTANEOUSLY ONCE DAILY 15 mL 2 024 Active HumaLOG KWIKPEN 100 UNIT/ML injectionIndicat ions:Type 2 diabetes mellitus without complication, with long-term current use of insulin (CMS/HCC) INJECT 6 TO 16 UNITS SUBCUTANEOUSLY DIRECTED PER SLIDING SCALE BLOOD SUGAR 150-200 = 6 UNITS, 201-250 = 10U, 251-300 = 12U, 301-350 = 14U, > 351 = 16U 15 mL 3 025 Active nystatin (Mycostatin) 050137 UNIT/GM powderIndication s:Tinea corporis Apply topically 2 times daily. 30 g 3 025 2025 Active metoprolol tartrate (Lopressor) 50 MG tablet TAKE 1 TABLET BY MOUTH TWICE DAILY IN THE MORNING AND IN THE EVENING WITH FOOD 180 tablet 1 025 Active Ferrous Sulfate (iron) 325 (65 Fe) MG tabletIndication s:Chronic anemia TAKE 1 TABLET BY MOUTH THREE TIMES DAILY IN THE MORNING, AT NOON, AND IN THE EVENING 90 tablet 1 025 Active Diclofenac Sodium 1 % gel Apply 4 g topically if needed in the morning, at noon, in the evening, and at bedtime (pain). 100 g 025 Active senna (Senokot) 8.6 MG tablet Take 1 tablet (8.6 mg) by mouth if needed at bedtime for constipation. 120 tablet 025 Active Blood Pressure kit 1 each 2 times daily. 1 kit 025 04/09/ 2026 Active metoprolol tartrate (Lopressor) 50 MG tablet TAKE 1 TABLET BY MOUTH TWICE DAILY IN THE MORNING AND IN THE EVENING WITH FOOD 180 tablet 1 024 2024 Discontinued senna (Senokot) 8.6 MG tablet Take 1 tablet by mouth if needed at bedtime. 024 2024 Discontinued(R eorder (will not trigger notification to Pharmacy)) Ferrous Sulfate (iron) 325 (65 Fe) MG tabletIndication s:Chronic anemia TAKE 1 TABLET BY MOUTH THREE TIMES DAILY IN THE MORNING, AT NOON, AND IN THE EVENING 90 tablet 1 025 2024 Discontinued acetaminophen (Tylenol Extra Strength) 500 MG tabletIndication s:Acute pain of both knees Take 1 tablet (500 mg) by mouth every 8 (eight) hours if needed for mild pain for up to 10 days. 30 tablet 025 2024 Active Problems Problem Noted Date Diagnosed Date [...] Last colonoscopy 07/2022 showed tubular adenomas Preventative [facility] care 06/21/2022 Assessment & Plan (03/21/2024 9:20 AM EST): Routine physical exam today: within normal limits Mammogram: NL : 02/22/2023 Pap Smear: 06/27/2023: Normal In 11/24/2016 ASCUS with positive HPV. Pt underwent Colpo with biopsies & ECC per CARDIOLOGY NURSE PRACTITIONER notes from 04/2017 Colonoscopy: 07/2022 Tubular adenoma repeat 3 years Vaccines: Flu shot: tdap: 05/31/2013 Dexa scan:. 04/28/2015 showed osteopenia Assessment & Plan (01/30/2024 11:02 AM EST): Routine physical exam today: within normal limits Mammogram: NL : 02/22/2023 Pap Smear: 06/27/2023: Normal In 11/24/2016 ASCUS with positive HPV. Pt underwent Colpo with biopsies & ECC per CARDIOLOGY NURSE PRACTITIONER notes from 04/2017 Colonoscopy: 07/2022 Tubular adenoma repeat 3-5 years Vaccines: Flu shot: tdap: 05/31/2013 Dexa scan:. 04/28/2015 showed osteopenia Assessment & Plan (01/19/2023 1:43 PM EST): Mammogram: NL : 01/29/2021 Pap Smear: 11/24/2016 ASCUS with positive HPV. Pt underwent Colpo with biopsies & ECC per CARDIOLOGY NURSE PRACTITIONER notes from 04/2017 she was supposed to have a repeat with co test 04/2018 and if both neg then would f/u in 3 years records requested Colonoscopy: 07/2022 Tubular adenoma repeat 3-5 years Vaccines: Flu shot: tdap: 05/31/2013 Dexa scan:. 04/28/2015 showed osteopenia History of CVA (cerebrovascular accident) 2021 Assessment & Plan (05/30/2024 9:07 AM EDT): Hx of this Pt was admitted to [facility] from :12/31-12/22/2020 Patient presented to ED with [...] Hx of this Pt was admitted to [facility] from :12/31-12/22/2020 Patient presented to ED with [...] Plan (01/31/2023 11:27 AM EST): Seen at [facility] 01/28/2023 with an asthma exacerbation Doing [...] disease and negative nuclear stress test at [facility] . Due to her Hx of [...] disease and negative nuclear stress test at [facility] . Due to her recent CVA [...] disease and negative nuclear stress test at [facility] . Due to her recent CVA [...] improve or worsen Asthma exacerbation 07/08/2020 05/31/19 Encounters Date Type Department Care Team Description 06/19/2024 10:20 AM EDT Office Visit [facility] [address] Neck pain (Primary Dx); Acute intractable headache, unspecified headache type; Acute pain of both knees; Hypertension, unspecified type 06/19/2024 Orders Only GENERIC EXTERNAL DATA DEPARTMENT Provider, Generic External Data 06/12/[address] [address] Diana Coates RN Results 06/12/2024 Orders Only [address] [address] James Flores MD Thyroid nodule (Primary Dx) 06/08/2024 Orders Only GENERIC EXTERNAL DATA DEPARTMENT Provider, Generic External Data 05/30/2024 9:15 AM EDT Office Visit [address] [address] James Flores MD Type 2 diabetes mellitus with stage 3a chronic kidney disease, with long-term current use of insulin ([facility]) (Primary Dx); Primary hypertension; Mixed hyperlipidemia; Coronary artery disease involving [place] coronary artery of [place] heart without angina pectoris; Severe obesity ([facility]/HCC); Dietary counseling; Exercise counseling; History of CVA (cerebrovascular accident); Age-related osteoporosis without current pathological fracture; Acute pain of both knees; Encounter for immunization 05/30/2024 Patient Outreach [facility] [place] [place] [address] James Flores MD Care Coordination (CHW outreach for SDOH housing search-referral completed ) 05/30/2024 Travel 05/23/2024 Refill [facility] [address] [place], [place] [phone] James Flores MD Chronic anemia 05/22/2024 Telephone [facility] [address] [place] [address] James Flores MD Chart Prep 05/20/2024 Refill [facility] [address] [place] [address] James Flores MD 05/10/2024 Refill [facility] [address] [place] [address] Coco Montiel NP Mild intermittent asthma without complication 05/01/2024 Orders Only GENERIC EXTERNAL DATA DEPARTMENT Provider, Generic External Data 03/26/2024 1:40 PM EST Office Visit [facility] [address] [place] [phone] Sarah Mehta MD Acute URI (Primary Dx); Cough in adult patient 03/21/2024 9:15 AM EST Office Visit [facility] [address] [place] [address] James Flores MD Acute cough (Primary Dx); Primary hypertension; Coronary artery disease involving [place] coronary artery of [place] heart without angina pectoris; Type 2 diabetes mellitus with stage 3a chronic kidney disease, with long-term current use of insulin ([facility]); Severe obesity ([facility]); Tinea corporis; Preventative health care 03/21/2024 Travel 03/21/2024 Refill [facility] [address] [place] [address] James Flores MD Chronic anemia from Last 3 Months Immunizations Name Administration [...] Sign Reading Time Taken Comments Blood Pressure 157/92 06/19/2024 10:12 AM EDT Pulse 76 06/19/2024 10:12 AM EDT Temperature 36.3 ??C (97.3 ??F) 06/19/2024 10:12 AM E DT Respiratory Rate 16 06/19/2024 10:12 AM EDT Oxygen Saturation 97% 06/19/2024 10:12 AM EDT Inhaled Oxygen Concentration - - Weight 78.5 kg (173 lb) 06/19/2024 10:12 AM EDT Height 147.3 cm (4' 10 ) 05/30/2024 9:20 AM EDT Body Mass Index 36.16 05/30/2024 9:20 AM EDT Plan of Treatment Upcoming Encounters Date Type Department Care Team (Late st Contact Info) Description 07/23/2024 11:00 AM EDT Office Visit [facility] [address] [place] [phone] James Flores MD [address] [place] [phone] 09/03/2024 11:15 AM EDT Office Visit [facility] [address] [place] [phone] James Flores MD [address] [place] [phone] Health Maintenance Due Date Last Done Comments CT Colonography 1955 FIT DNA/Cologuard 1955 FIT 1955 FOBT 1955 Sigmoidoscopy 1955 Eye Exam 05/18/1965 Hepatitis C Screening 05/18/1973 Pneumococcal Vaccine: 50+ Years (1 of 2 - PCV) 05/18/1974 RSV Patients and Patients Aged 60 years or older (1 - Risk 60-74 years 1-dose series) 2015 Zoster Vaccines (3 of 3) 09/14/2021 07/20/2021, 11/2015 COVID-19 Vaccine (3 - season) 2023 08/31/2020, 08/01/2020 Diabetes: Hemoglobin A1C 06/19/2024 025, 01/30/2024, 01/19/2023, Additional history exists Alcohol/Substance Use Screening 01/29/2025 01/30/2024 Depression Screening 01/29/2025 01/30/2024, 01/30/20 24 Lipid Panel 02/04/2025 02/05/2024, 11/2022, 06/09/2022, Additional history exists Diabetes: Foot Exam 02/06/2025 02/07/2024, 02/07/2024, 02/07/2024, Additional history exists Mammogram 02/22/2025 02/22/2023, 01/11, 01/29/2021, Additional history exists SDOH Screening 05/30/2025 05/30/2024 Tobacco Screening 06/19/2025 06/19/2024 Colonoscopy 07/11/2025 07/11/2022 Colorectal Cancer Screening 07/11/2025 [...] VITAMIN D,25-OH,TOTAL,IA Routine 06/19/2024 10:26 AM EDT ALBUMIN Routine 06/19/2024 10:26 AM EDT CALCIUM Routine 06/19/2024 10:26 AM EDT CTA HEAD NECK W AND WO CONTRAST Routine 06/08/2024 7:19 PM EDT XR KNEE 4+ VIEWS RIGHT Routine 6:30 PM EDT XR KNEE 4+ VIEWS LEFT Routine 06/08/2024 6:29 PM EDT BASIC METABOLIC PANEL Routine 06/08/2024 4:18 PM EDT CBC WITH AUTO DIFFERENTIAL Routine 06/08/2024 4:18 PM EDT SARS COV2/INFLUENZA A/B AND RSV RNA QL NAAT Routine 06/08/2024 4:18 PM EDT XR KNEE 4+ VIEWS RIGHT Routine 10:25 AM EDT Acute pain of both knees XR KNEE 4+ VIEWS LEFT Routine 05/30/2024 10:25 AM EDT Acute pain of both knees POCT GLUCOSE Routine 05/30/2024 9:25 AM EDT Type 2 diabetes mellitus with stage 3a chronic kidney disease, with long-term current use of insulin (CMS/HCC) XR DEXA APPENDICULAR SKELETON Routine 05/15/2024 8:15 [...] with long-term current use of insulin (CMS/HCC) POCT GLUCOSE Routine 03/21/2024 9:50 AM EST Type 2 diabetes mellitus with stage 3a chronic kidney disease, with long-term current use of insulin (CMS/HCC) LIPID PANEL, STANDARD Routine 02/05/2024 7:55 AM EST Type 2 diabetes mellitus with stage 3a chronic kidney disease, with long-term current use of insulin (CMS/HCC) PAP SMEAR Routine 06/22/2023 3:20 PM EDT BI MAMMOGRAM SCREENING TOMOSYNTHESIS BILATERAL Routine 02/22/2023 8:20 AM EST HM COLONOSCOPY Routine 07/11/2022 3:53 PM EDT ZZZ HISTORICAL HPV E6/E7 RFLX DANIAL 16 18 Routine 01/17/2022 4:22 PM EST from Last 3 Months or Most Recently Relevant to Health Maintenance Results * PTH, Intact Without Calcium (06/19/2024 10:56 AM EDT) Parathyroid Hormone, Intact 60.9 8.7 - 77.1 pg/mL [facility] 06/19/2024 10:5 6 AM EDT 06/19/2024 11:40 AM EDT us Generic External Data Provider LAB BLOOD ORDERAB LES Final Result Performing Organization Address City/State/[facility] Co de Phone Number [facility] [address] [place] [phone] * Vitamin D, 25-Hydroxy, Total, Immunoassay (06/19/2024 10:26 AM EDT) Vitamin D 25-OH Total 41.0 >30 ng/mL [facility] Comment: Health Based Reference Values*< 20 ??ng/mL ??[id number] ng/mL ??Insufficient> 30 ??ng/mL ??Sufficient*Altagracia GOODWIN. N [...] ORDERAB LES Final Result Performing Organization Address [facility] Co de Phone Number [facility] [address] [place] [phone] * (ABNORMAL) Calcium (06/19/2024 10:26 AM EDT) Calcium 10.6(H) 8.4 - 10.2 mg/dL [facility] 06/19/2024 10:2 6 AM EDT 06/19/2024 11:49 AM EDT us Generic External Data Provider LAB BLOOD ORDERAB LES Final Result Performing Organization Address [place] de Phone Number [facility] [address] [place] [phone] * Albumin (06/19/2024 10:26 AM EDT) Albumin Level 4.1 3.5 - 5.0 g/dL [facility] 06/19/2024 10:2 6 AM EDT 06/19/2024 11:49 AM EDT Generic External Data Provider LAB BLOOD ORDERAB LES Final Result Performing Organization Address [place] de Phone Number [facility] [address] [place] [phone] * CTA Head Neck w/ and w/o Contrast (06/08/2024 7:19 PM EDT) Anatomical Region Laterality Modality Head, Neck Computed Tomogra phy 06/08/2024 7:19 PM EDT Narrative 06/08/2024 7:20 PM EDT ? [facility] ?[address] ?[place] [address] ? CT Scan Report ? Signed ? Patient: Cappa,Jayne ?MR#: [id number] ? : 1955 ?Acct:[id number] ? Age/Sex: 69 / F ?ADM Date: 06/08/24 ? Loc: HO.ED ? Attending Dr: ? Ordering Physician: Ligia Marie ?? Date of Service: 06/08/24 ?? Procedure(s): CT angio head neck ?? Accession Number(s): [id number] ? cc: James Trimble MD; Ligia Marie ? Report Number: ?? [id number]: Total DLP = 1370.00 mGy-cm ? CLINICAL HISTORY: R sided VALENCIA, neck pain, hearing changes ? CT head without contrast. ?? CT angiography head and neck with contrast. 3D Postprocessing. ? COMPARISON: None ? FINDINGS: ?? HEAD CT: ?? No intra-axial mass, midline shift, hydrocephalus, or acute hemorrhage. ?? Periventricular areas of hypoattenuation consistent with mild white-matter ?? small-vessel disease. ?? Chronic lacunar infarcts present within the left basal ganglia. ? The visualized paranasal sinuses and mastoid air cells are normal. ?? The orbits are unremarkable. Atherosclerotic intracranial vasculature. ?? No calvarial fracture. ? HEAD AND NECK CTA: ?? Aortic arch and cervical great vessels are patent. Minimal calcified ?? plaque present at the carotid bulb on the left without significant ?? stenosis. ?? Calcified plaque present at the cavernous portion of the internal carotid ?? arteries bilaterally with a significant stenosis. Otherwise the ?? intracranial arteries are patent. No aneurysm, dissection, or occlusion. ?? No abnormal intracranial enhancement. ? Thyroid nodule along the isthmus measuring 1.7 cm. No cervical mass or ?? fluid collection. ?? Visualized lung apices are clear. ?? No acute fracture. ? IMPRESSION: ?? 1. Unremarkable head CT. ?? 2. Patent head and neck CTA. ? This document has been electronically signed by: Reginaldo Lowry MD on ?? 06/08/2024 19:19:32 ? Dictated By: ?Reginaldo Lowry MD ? Signed By: ?<Electronically signed by Reginaldo Lowry MD in OV> ?06/08/241919 ? DD/ 18 ? TD/TT: 06/08/24 1919 ? Numerical Control Nesting Operator: ? Procedure Note Donotuseinterpreter, Image - 06/08/[address] [address] [address] Scan Report Signed Patient: Jayne LaneMR#: [id number] : 1955cct:[id number] Age/Sex: 69 / FADM Date: 06/08/24 Loc: HO.ED Attending Dr: Ordering Physician: Ligia Marie Date of Service: 06/08/24 Procedure(s): CT angio head neck Accession Number(s): [id number] cc: James Trimble MD; Ligia Marie Report Number: [id number]: Total DLP = 1370.00 mGy-cm CLINICAL HISTORY: R sided VALENCIA, neck pain, hearing changes CT head without contrast. CT angiography head and neck with contrast. 3D Postprocessing. COMPARISON: None FINDINGS: HEAD CT: No intra-axial mass, midline shift, hydrocephalus, or acute hemorrhage. Periventricular areas of hypoattenuation consistent with mild white-matter small-vessel disease. Chronic lacunar infarcts present within the left basal ganglia. The visualized paranasal sinuses and mastoid air cells are normal. The orbits are unremarkable. Atherosclerotic intracranial vasculature. No calvarial fracture. HEAD AND NECK CTA: Aortic arch and cervical great vessels are patent. Minimal calcified plaque present at the carotid bulb on the left without significant stenosis. Calcified plaque present at the cavernous portion of the internal carotid arteries bilaterally with a significant stenosis. Otherwise the intracranial arteries are patent. No aneurysm, dissection, or occlusion. No abnormal intracranial enhancement. Thyroid nodule along the isthmus measuring 1.7 cm. No cervical mass or fluid collection. Visualized lung apices are clear. No acute fracture. IMPRESSION: 1. Unremarkable head CT. 2. Patent head and neck CTA. This document has been electronically signed by: Reginaldo Lowry MD on 06/08/2024 19:19:32 Dictated By: Reginaldo Lowry MD Signed By: <Electronically signed by Reginaldo Lowry MD in OV> 06/08/241919 DD/ 18 TD/TT: 06/08/241918 Numerical Control Nesting Operator: us [facility] External Provider IMG CT PROCEDURES Edited Result - Final * XR Knee 4+ Views Right (06/08/2024 6:30 PM EDT) Only the most recent of2 resultswithin the time period is included. Anatomical Region Laterality Modality Lower Extremities, Knee Right Radiogra phic Imaging 06/08/2024 6:30 PM EDT Narrative 06/08/2024 6:32 PM EDT ? [facility] ?[address] ?[place] [address] ?XRay Report ? Signed ? Patient: Cappa,Jayne ?MR#: [id number] ? : 1955 ?Acct:[id number] ? Age/Sex: 69 / F ?ADM Date: 06/08/24 ? Loc: HO.ED ? Attending Dr: ? Ordering Physician: Ligia Marie ?? Date of Service: 06/08/24 ?? Procedure(s): XR knee RT 4V ?? Accession Number(s): [id number] ? cc: James Trimble MD; Ligia Marie ? CLINICAL HISTORY: posterior knee pain ? Four views of the right knee. ? COMPARISON: XR right knee dated 05/30/24 at 10:52 EDT ? FINDINGS: ?? No suprapatellar joint effusion. Atherosclerotic vascular disease. ?? Lateral compartment joint space narrowing. Osteophytes present along the ?? lateral compartment. Tibial spine spurring. ?? Visualized portions of the distal femur, patella, and proximal tibia and ?? fibula appear intact. ? IMPRESSION: ?? 1. No radiographic evidence of acute injury to the right knee. ?? 2. Pfcq-qw-znuwwkeb lateral compartment degenerative changes. ? This document has been electronically signed by: Reginaldo Lowry MD on ?? 06/08/2024 18:30:46 ? Dictated By: ?Reginaldo Lowry MD ? Signed By: ?<Electronically signed by Reginaldo Lowry MD in OV> ?06/08/24 183 ? DD/ 1830 ? TD/TT: 06/08/24 1830 ? Numerical Control Nesting Operator: ? Procedure Note Donotuseinterpreter, Image - 06/08/[address] [address] XRay Report Signed Patient: Jayne LaneMR#: [id number] : 6Acct:[id number] Age/Sex: 69 / FADM Date: 06/08/24 Loc: HO.ED Attending Dr: Ordering Physician: Ligia Marie Date of Service: 06/08/24 Procedure(s): XR knee RT 4V Accession Number(s): [id number] cc: James Trimble MD; Ligia Marie CLINICAL HISTORY: posterior knee pain Four views of the right knee. COMPARISON: XR right knee dated 05/30/24 at 10:52 EDT FINDINGS: No suprapatellar joint effusion. Atherosclerotic vascular disease. Lateral compartment joint space narrowing. Osteophytes present along the lateral compartment. Tibial spine spurring. Visualized portions of the distal femur, patella, and proximal tibia and fibula appear intact. IMPRESSION: 1. No radiographic evidence of acute injury to the right knee. 2. Anlr-sp-jmvqtejz lateral compartment degenerative changes. This document has been electronically signed by: Reginaldo Lowry MD on 06/08/2024 18:30:46 Dictated By: Reginaldo Lowry MD Signed By: <Electronically signed by Reginaldo Lowry MD in OV> 06/08/241830 DD/ 29 TD/TT: 06/08/241829 Numerical Control Nesting Operator: [facility] External Provider IMG XR PROCEDURES Edited Result - Final * XR Knee 4+ Views Left (06/08/2024 6:29 PM EDT) Only the most recent of2 resultswithin the time period is included. Anatomical Region Laterality Modality Lower Extremities, Knee Left Radiogra phic Imaging 06/08/2024 6:29 PM EDT Narrative 06/08/2024 6:30 PM EDT ? [facility] ?[address] ?[place] [address] ?XRay Report ? Signed ? Patient: Cappa,Jayne ?MR#: [id number] ? : 1955 ?Acct:[id number] ? Age/Sex: 69 / F ?ADM Date: 06/08/24 ? Loc: HO.ED ? Attending Dr: ? Ordering Physician: Ligia Marie ?? Date of Service: 06/08/24 ?? Procedure(s): XR knee LT 4V ?? Accession Number(s): [id number] ? cc: James Trimble MD; Ligia Marie ? CLINICAL HISTORY: posterior knee pain ? Four views of the left knee. ? COMPARISON: XR left knee dated 05/30/24 at 10:50 EDT ? FINDINGS: ?? No appreciable suprapatellar joint effusion. Atherosclerotic vascular ?? disease. ?? Medial joint space narrowing. Small osteophytes present along the medial ?? and patellofemoral compartments. Tibial spine spurring. ?? Visualized portions of the distal femur, patella, and proximal tibia and ?? fibula appear intact. ? IMPRESSION: ?? 1. No radiographic evidence of acute injury to the left knee. ?? 2. Mild degenerative changes of the left knee most pronounced within the ?? medial compartment. ? This document has been electronically signed by: Reginaldo Lowry MD on ?? 06/08/2024 18:29:13 ? Dictated By: ?Reginaldo Lowry MD ? Signed By: ?<Electronically signed by Reginaldo Lowry MD in OV> ?06/08/24 182 ? DD/ 1829 ? TD/TT: 06/08/24 1829 ? Numerical Control Nesting Operator: ? Procedure Note Viridiana Gilbert - 06/08/[address] [place] [address] XRay Report Signed Patient: Jayne LaneMR#: [id number] : 6Acct:[id number] Age/Sex: 69 / FADM Date: 06/08/24 Loc: HO.ED Attending Dr: Ordering Physician: Ligia Marie Date of Service: 06/08/24 Procedure(s): XR knee LT 4V Accession Number(s): [id number] cc: James Trimble MD; Ligia Marie CLINICAL HISTORY: posterior knee pain Four views of the left knee. COMPARISON: XR left knee dated 05/30/24 at 10:50 EDT FINDINGS: No appreciable suprapatellar joint effusion. Atherosclerotic vascular disease. Medial joint space narrowing. Small osteophytes present along the medial and patellofemoral compartments. Tibial spine spurring. Visualized portions of the distal femur, patella, and proximal tibia and fibula appear intact. IMPRESSION: 1. No radiographic evidence of acute injury to the left knee. 2. Mild degenerative changes of the left knee most pronounced within the medial compartment. This document has been electronically signed by: Reginaldo Lowry MD on 06/08/2024 18:29:13 Dictated By: Reginaldo Lowry MD Signed By: <Electronically signed by Reginaldo Lowry MD in OV> 06/08/241828 DD/ 28 TD/TT: 06/08/241828 Numerical Control Nesting Operator: [facility] External Provider IMG XR PROCEDURES Edited Result - Final * SARS-CoV-2 RNA, Influenza A/B, and RSV RNA, Ql NAAT (06/08/2024 4:18 PM EDT) Influenza A PCR NEGATIVE Negative [facility] Influenza B PCR NEGATIVE Negative [facility] Resp Syncy Virus RNA Qual PCR NEGATIVE Negative [facility] SARS COV2 PCR NEGATIVE Negative [facility] Comment:All test results mus t be correlated with clinical findings.Negative results do not preclude SARS-CoV2, influenza Avirus, influenza B virus and/or RSV infectionand should not be used as the sole basis for treatment orother patient management decisions. Negative results must becombined with clinical observations, patient history, andepidemiological information.This test has not been evaluated for monitoring treatment ofinfection.This test has been authorized by the FDA under an EmergencyUse Authorization (EUA) for use by authorized laboratories.Testing performed on the [employer] GeneXpert utilizingreal-time RT-PCR.All SARS CoV2 and positive influenza A/B results arereported to [facility]. 06/08/2024 4:18 PM EDT 06/08/2024 4:21 PM EDT us Generic External Data Provider LAB MICROBIOLOGY - GENERAL ORDERABLES Final Result [facility] [address] [place] [phone] [phone] * (ABNORMAL) CBC auto differential (06/08/2024 4:18 PM EDT) White Blood Count 6.4 4.8 - 10.8 X10*3/uL [facility] Red Blood Count 3.75(L) 4.20 - 5.50 X10*6/uL [facility] Hemoglobin 11.5(L) 12.0 - 16.0 g/dl [facility] Hematocrit 35.0(L) 37.0 - 47.0 % [facility] Mean Corpuscular Volume 93.3 80.0 - 98.0 fL [facility] Mean Corpuscular Hemoglobin 30.7 27.0 - 33.0 pg [facility] Mean Corpuscular HGB Conc 32.9 31.0 - 35.0 g/dl [facility] Red Cell Distribution Width 13.0 11.0 - 16.0 % [facility] Platelet Count 236 160 - 400 X10*3/uL [facility] Mean Platelet Volume 9.8 9.4 - 12.3 fL [facility] Neutrophils Percent Auto 62.4 45 - 73 % [facility] Imm Gran Pct Auto 0.5(H) 0.0 - 0.4 % [facility] Lymphocytes Percent Auto 29.3 20 - 40 % [facility] Monocytes Percent Auto 6.3 2 - 11 % [facility] Eosinophils Percent Auto 1.3 0 - 4 % [facility] Basophils Percent Auto 0.2 0 - 2 % [facility] NRBC Pct Auto 0.0 0.0 - 0.2 /100WBC [facility] Neutrophils Absolute Auto 4.0 2.0 - 8.3 x10*3/uL [facility] Imm Gran Abs Auto 0.03 0.00 - 0.03 X10*3/uL [facility] Lymphocytes Absolute Auto 1.9 1.2 - 4.9 X10*3/uL [facility] Monocytes Absolute Auto 0.4 0.1 - 1.2 X10*3/uL [facility] Eosinophils Absolute Auto 0.1 0.0 - 0.4 X10*3/uL [facility] Basophils Absolute Auto 0.0 0.0 - 0.2 X10*3/uL [facility] NRBC Abs Auto 0.000 0.0 - 0.012 X10*3/uL [facility] 06/08/2024 4:18 PM EDT 06/08/2024 4:21 PM EDT us Generic External Data Provider LAB BLOOD ORDERAB LES Final Result [facility] [address] [place] [phone] * (ABNORMAL) Basic Metabolic Panel (06/08/2024 4:18 PM EDT) Sodium 142 135 - 145 mmol/L [facility] Potassium 4.8 3.3 - 5.1 mmol/L [facility] Chloride 107 96 - 108 mmol/L [facility] Carbon Dioxide 28 22 - 29 mmol/L [facility] Anion Gap 12 12 - 20 [facility] Urea Nitrogen (BUN) 33(H) 9 - 16 mg/dL [facility] Creatinine, Serum 1.41(H) 0.5 - 1.4 mg/dL [facility] Creatinine Clr Calc Pharmacy 34.3 [facility] Comment:Provided height and weight: 149.86 cm,79.7 kg.eGFR (calculated from the MDRD study equation) and eCrCl(calculated from the Cockcroft-Gault equation) are based ondifferent parameters and may not yield comparable results.If eCrCl result is absurd, please check patient'sheight/weight. Estimated Glomerular Filt Rate 37 [facility] Comment:Chronic Kidney Disea se: Estimated GFR < 60 mL/min/[id number] Kidney Disease: Estimated GFR < 15 mL/min/1.73m2 Glucose 227(H) 60 - 115 mg/dL [facility] Calcium 10.1 8.4 - 10.2 mg/dL [facility] 06/08/2024 4:18 PM EDT 06/08/2024 4:21 PM EDT us Generic External Data Provider LAB BLOOD ORDERAB LES Final Result Performing Organization Address City/State/[facility] Co de Phone Number [facility] [address] [place] [phone] * (ABNORMAL) POCT Glucose (05/30/2024 9:25 AM EDT) Only the most recent of2 resultswithin the time period is included. Glucose Blood, POC 202(A) 60 - 200 mg/dL QC Media Lot # [id number] Lot# Expiration Date [id number] Blood Capillary blood specimen / Unknown 05/30/2024 9:25 AM EDT us James Ashraf MD POINT OF CARE TEST EN TER/EDIT ORDERABLES Final Result * XR DEXA APPENDICULAR SKELETON (05/15/2024 8:15 AM EST) Anatomical Region Laterality Modality Abdomen Radiographic Rena ging 05/15/2024 8:15 AM EST Narrative 05/17/2024 7:37 AM EST ? [facility] ? [address] ?[place] [address] ? Mammography Report ? Signed ? Patient: Cappa,Jayne ?MR#: [id number] ? : 1955 ?Acct:[id number] ? Age/Sex: 68 / F ?ADM Date: 05/15/24 ? Loc: HO.MAMMO ? Attending Dr: Lina Jason MD ? Ordering Physician: Lina Jason MD ?Results: ? Date of Service: 05/15/24 ?Follow Up: ? Procedure(s): XR DEXA appendicular skeleton ?? Accession Number(s): [id number] ? cc: James Trimble MD; Lina Jason MD ? EXAMINATION: ??DXA BONE DENSITY EXTREMITY ? HISTORY: ??Estrogen deficiency ? TECHNIQUE: CyberHeart Dual energy absorptiometry (DEXA) ?? of the [...] the [employer]'s ?? [place] for Metabolic Bone Disease, a World Health Organization (WHO) ?? Collaborating Center. ? Electronically signed by: ??Zev Mukherjee MD ??05/17/2024 07:34 AM EST ?? RP ? Dictated By: ?Zev Mukherjee MD ? Signed By: ?<Electronically signed by Zev Mukherjee MD in OV> ?05/17/24 0734 ? DD/ 0815 ? TD/TT: 05/15/24 0840 ? Numerical Control Nesting Operator: ? Procedure Note Ofelia, Viridiana - 05/17/2024 [facility] [facility] [address] [place] [address] Dr. Tena, [place] [address] Mammography Report Signed Patient: Jayne LaneMR#: [id number] : 6Acct:[id number] Age/Sex: 68 / FADM Date: 05/15/24 Loc: [facility] Attending Dr: Lina Jason MD Ordering Physician: Lina Jason MDResults: Date of Service: 05/15/24Follow Up: Procedure(s): XR DEXA appendicular skeleton Accession Number(s): [id number] cc: James Trimble MD; Lina Jason MD EXAMINATION: DXA BONE DENSITY EXTREMITY HISTORY: Estrogen deficiency TECHNIQUE: CyberHeart Dual energy absorptiometry (DEXA) of the lumbar [...] of the [employer]'s [place] for Metabolic Bone Disease, a World Health Organization (WHO) Collaborating Center. Electronically signed by: Zev Mukherjee MD 05/17/2024 07:34 AM EST RP Dictated By: Zev Mukherjee MD Signed By: <Electronically signed by Zev Mukherjee MD in OV> 05/17/24 0734 DD/ TD/TT: 05/15/24 0840 Numerical Control Nesting Operator: [facility] External Provider IMG XR PROCEDURES Final Result * (ABNORMAL) Glucose, Whole Blood (05/01/2024 9:11 AM EST) [facility] Glucose, Whole Blood 150(H) 60 - 115 mg/dL [facility] Comment:METER #: [id number] 5Testing performed in the Endocrinology Department [address] , [address], [facility]. 05/01/2024 9:11 AM EST 05/01/2024 9:15 AM EST Generic External Data Provider LAB BLOOD ORDERAB LES Final Result [facility] [address] [place] [address] [phone] * Influenza B (ID NOW Rapid Molecular) (03/26/2024 1:48 PM EST) Only the most recent of2 resultswithin the time period is included. [facility] Influenza B Negative Negative, Indeterminate [facility] Swab 03/26/2024 1:48 PM EST Sarah Mehta MD POINT OF CARE TEST ENTER/E DIT ORDERABLES Final Result [facility] [address] [place] [phone] * Influenza A (ID NOW Rapid Molecular) (03/26/2024 1:47 PM EST) Only the most recent of2 resultswithin the time period is included. Pathologist [facility] Influenza A Negative Negative, Indeterminate [facility] Swab 03/26/2024 1:47 PM EST Result [facility] Sarah Mehta MD POINT OF CARE TEST ENTER/E DIT ORDERABLES Final Result Performing Organization Address City/[facility]/ZIP Co de Phone Number [facility] [address] [place] [phone] * POCT Rapid COVID Ag (03/26/2024 1:39 PM EST) Only the most recent of2 resultswithin the time period is included. [facility] Rapid COVID Ag Negative Swab 03/26/2024 1:39 PM EST Result [facility] Sarah Mehta MD POINT OF CARE TEST ENTER/E DIT ORDERABLES Final Result * (ABNORMAL) POCT HGB A1C (03/21/2024 9:51 AM EST) [facility] Hemoglobin A1C 8.4(A) 4.0 - 6.0 % QC Media Lot # [id number] Lot# Expiration Date 536 Blood 03/21/2024 9:51 AM EST Result [facility] James Ashraf MD POINT OF CARE TEST EN TER/EDIT ORDERABLES Final Result * Lipid Panel, Standard (02/05/2024 7:55 AM EST) [facility] Triglycerides 104 <150 mg/dL [facility] Comment:Desirable Triglyceri de: less than 150 mg/dLBorderline High Triglyceride 150-199 mg/dLHigh Triglyceride: 200-499 mg/dLVery High Triglyceride: greater than or equal to 5OO mg/dL Cholesterol 123 <200 mg/dL [facility] Comment:Desirable Cholestero l: less than 200 mg/dLBorderline High Cholesterol: 200-239 mg/dLHigh Cholesterol: greater than 239 mg/dL LDL Cholesterol Calculated 62 <100 mg/dL [facility] Comment:Desirable LDL: less than 100 mg/dLNear Optimal/Above Optimal LDL: 110- 129 mg/dLBorderline High LDL: 130-159 mg/dLHigh LDL: 160-189 mg/dLVery High LDL: greater than or equal to 190 mg/dL HDL Cholesterol 41 >40 mg/dL [facility] Comment:Desirable HDL: great er than 40 mg/dL Note: This HDL assay may give artificially low results in patients with liver disease. Blood Venous blood specimen / Unknown 02/05/2024 7:55 AM EST 02/05/2024 11:17 AM EST us James Ashraf MD LAB BLOOD ORDERABLES Final Result Performing Organization Address City/State/[facility] Co de Phone Number [facility] [address] [place] [phone] * Pap Smear (06/22/2023 3:20 PM EDT) 06/22/2023 3:20 PM EDT 06/27/2023 11:15 AM EDT Narrative [facility] - 07/11/2023 2:16 PM EDT ----- ------- Name: Cappa,Jayne ?Age/Sex: 68/F ? : 1955 Unit#: [id number] ?? Attend Dr: Opal Carranza CNM ?Re06/22/23 ?Status: DEP REF ? Location: HO.LNP ?Disch: ? ----- ------- SPEC : [id number] ? RECD: 06/27/23-1115 ? STATUS: ??SOUT ? REQ NUM: [id number] ? CYRUS: 06/22/23-1520 ? SUBM DR: Opal [...] 66, 68) ? HPV testing performed by [employer], [place], [place]. ??See reference laboratory ?? portion of the EMR for entire report. 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 Material Received ?? ThinPrep-Cervical Copies To: ?? James Trimble MD ?? [address] ?? [place] [address] ?? [phone] ?? Opal Carranza CNM ?? [address] [place] [address] [address] ?? [place] [address] ?? [phone] ----- ------- Signed (signature on file) Ev Preciado 07/11/23 1416 ? ----- ------- ? END OF REPORT ? us Generic External Data Provider LAB CYTOLOGY RAINERE MARTIN Final Result [facility] [address] [facility] [place] [phone] [phone] * BI Mammogram Screening Tomosynthesis Bilateral (02/22/2023 8:20 AM EST) Anatomical Region Laterality Modality Breast Bilateral Mammography 02/22/2023 8:20 AM EST Narrative 03/07/2023 9:08 PM EST ? [facility] ? [address] ?[place] [address] ? Mammography Report ? Signed ? Patient: Cappa,Jayne ?MR#: [id number] ? : 1955 ?Acct:[id number] ? Age/Sex: 67 / F ?ADM Date: 12/13/23 ? Loc: HO.MAMMO ? Attending Dr: James Trimble MD ? Ordering Physician: Loraine Yadav MD ?Results: 1Ne ?? gative ? Date of Service: 12/13/23 ?Follow Up: 1 Year From Orig ?? inal Mammogram ? Procedure(s): MM tomosynthesis screening BI ?? Accession Number(s): [id number] ? cc: James Trimble MD; Loraine Yadav [...] 03/07/232103 ? DD/ 9 ? TD/TT: ? Numerical Control Nesting Operator: ? Procedure Note Ofelia, Viridiana - 03/07/2023 [facility] [address] [place] [address] Dr. Tena, [place]HENDRA [address] Mammography Report Signed Patient: Jayne LaneMR#: [id number] : 6Acct:[id number] Age/Sex: 67 / FADM Date: 02/22/23 Loc: HO.MAMMO Attending Dr: James Trimble MD Ordering Physician: Loraine Yadav MDResults: 1Ne gative Date of Service: 02/22/23Follow Up: 1 Year From Orig inal Mammogram Procedure(s): MM tomosynthesis screening BI Accession Number(s): [id number] cc: James Trimble MD; Loraine Yadav MD [...] MD in OV> 03/07/232103 DD/ 0820 TD/TT: Numerical Control Nesting Operator: [facility] External Provider IMG BI PROCEDURES Final Result * Hm Colonoscopy (07/11/2022 3:53 PM EDT) Colonoscopy Normal Normal Comment:Tubular adenoma Historical Provider HEALTH MAINTENANCE Final Result * HPV E6/E7 RFLX DANIAL 16 18/45 (01/17/2022 4:22 PM EST) HPV 16 RNA TNP [facility] HPV 18/45 RNA TNP [facility] HPV E6 E7 ADD TNP [facility] [employer] HPV mRNA E6/E7 rflx Not Detected Not Detected [facility] Comment: Methodology: Rate Supervisor-Mediated Amplification This assay detects E6/E7 viral messenger RNA (mRNA) from 14 high-risk HPV types (16,18,31,33,35,39,45,51,52,56,58,59,66,68). Cervical sources are required for HPV testing. If a vaginal source from a patient who has had a total hysterectomy with removal of cervix was submitted, please contact the testing laboratory for alternative testing options. For additional information, please refer to http://education.[employer]/faq/UJK464k8 (This link if provided for information/ educational purposes only.) THIS TEST WAS PERFORMED AT: [facility] [address] [place] [address],[address] [place], [place] ??[phone] KEVEN CHAND MD 01/17/2022 4:22 PM EST Opal Carranza HISTORICAL/NON ORDERABLE LABS Fi nal Result [facility] from Last 3 Months or Most Recently Relevant to Health Maintenance Insurance [facility] Care Teams Supervisor Fruit Grading Relationship Specialty Start Date End Date James Flores MD [address] [place] [phone] PCP - General Internal Medicine 02/04/14
--- OUTSIDE RECORDS SUMMARY | 2024-06-19 12:44 | XMS_ITS | Encounter Summary ---
Author Organization [employer] [facility] Address [address] [facility] 7t [place] [address] Care Team Providers Care Sales And Marketing Intern Name Role Phone James Flores MD Primary Care Provide r Reason for Visit * Reason Comments Med Refill Encounter Details Date Type Department Care Team (Late st Contact Info) Description 09/04/2023 Refill [facility] [address] [place] [address] Name, MD Loki [address] [place] [address] Gastroesophageal reflux disease without esophagitis Social History [...] Office Visit [facility] [address] [place] [phone] James Flores MD [address] [place] [phone] 09/03/2024 11:15 AM EDT Office Visit [facility] [address] [place] [phone] James Flores MD [address] [place] [phone] documented as of this encounter Visit Diagnoses Diagnosis Gastroesophageal reflux disease without esophagitis Esophageal reflux documented in this encounter Care Teams Sales And Marketing Intern Relationship Specialty Start Date End Date James Flores MD [address] [place] [phone] PCP - General Internal Medicine 02/04/14 documented as of this encounter
--- OUTSIDE RECORDS SUMMARY | 2024-06-19 12:44 | XMS_ITS | Encounter Summary ---
Author Organization [employer] [facility] Address [address] [facility] 7t [place] [address] Care Team Providers Care Assembly Hand Name Role Phone James Flores MD Primary Care Provide r Encounter Details Date Type Department Care Team (Late st Contact Info) Description 08/22/2022 Orders Only [facility] [address] [place] [address] Jaja Hammond LPN Social History Tobacco Use [...] Description 07/23/2024 11:00 AM EDT Office Visit [facility] [address] [place] [phone] James Flores MD [address] [place] [phone] 09/03/2024 11:15 AM EDT Office Visit [facility] [address] [place] [phone] James Flores MD [address] [place] [address] documented as of this encounter Visit Diagnoses Not on filedocumented in this encounter Care Teams Assembly Hand Relationship Specialty Start Date End Date James Flores MD [address] [place] [phone] PCP - General Internal Medicine 02/04/14 documented as of this encounter
--- OUTSIDE RECORDS SUMMARY | 2024-06-19 12:44 | XMS_ITS | Encounter Summary ---
Author Organization [employer] [facility] Address [address] [facility] 7t [place] [address] Care Team Providers Care Tube Puller Name Role Phone James Flores MD Primary Care Provide r Reason for Referral * Consultation (Routine) - Pending Review Specialty Diagnoses / Procedures Referred By Miguel t Referred To Contact Neurology Diagnoses Acute intractable headache, unspecified headache type Ludwin Sylvester MD [address] [place] [address] Phone: tel: fax: Referral ID Status Reason Start Date Expiration Date Visits Requested Visits Authorized [id number] Pending Review Specialty Services Required 06/19/2024 06/19/2025 1 1 * Consultation (Routine) - Pending Review Specialty Diagnoses / Procedures Referred By Miguel t Referred To Contact Orthopaedic Surgery Diagnoses Neck pain Acute pain of both knees Ludwin Sylvester MD [address] [place] [address] Phone: tel: fax: Referral ID Status Reason Start Date Expiration Date Visits Requested Visits Authorized [id number] Pending Review Specialty Services Required 06/19/2024 06/19/2025 1 1 Encounter Details Date Type Department Care Team (Late st Contact Info) Description 06/19/2024 10:20 AM EDT Office Visit [facility] [address] [place] [address] Neck pain (Primary Dx); Acute intractable headache, unspecified headache type; Acute pain of both knees; Hypertension, unspecified type Social History Tobacco Use Types Packs/Day Years [...] (173 lb) 06/19/2024 10:12 AM EDT Height - - Body Mass Index 36.16 05/30/2024 9:20 AM EDT documented in this encounter Plan of Treatment Upcoming Encounters Date Type Department Care Team (Late st Contact Info) Description 07/23/2024 11:00 AM EDT Office Visit [facility] [address] [place] [address] [phone] James Flores MD [address] [place] [address] [phone] 09/03/2024 11:15 AM EDT Office Visit [address] [phone] James Flores MD [address] [place] [address] [phone] Scheduled Orders Name Type Priority Associated Diagnoses Orde r Schedule RPR (Monitor) with Reflex to??Titer Lab Routine Neck pain Acute intractable headache, unspecified headache type Expected: 06/19/2024 (Approximate), Expires: 06/19/2025 Sed Rate by Modified [facility] Lab Routine Neck pain Acute intractable headache, unspecified headache type Expected: 06/19/2024 (Approximate), Expires: 06/19/2025 Lyme Disease Ab with Reflex to Blot (IgG, IgM) Lab Routine Neck pain Acute intractable headache, unspecified headache type Expected: 06/19/2024, Expires: 06/19/2025 Scheduled Referrals Name Type Priority Associated Diagnoses Orde r Schedule Referral to Orthopaedic Surgery Outpatient Referral Routine Neck pain Acute pain of both knees Expected: 06/19/2024 (Approximate), Expires: 06/19/2025 Referral to Neurology Outpatient Referral Routine Acute intractable headache, unspecified headache type Expected: 06/19/2024 (Approximate), Expires: 06/19/2025 documented as of this encounter Visit Diagnoses Diagnosis Neck pain- Primary Cervicalgia Acute intractable headache, unspecified headache type Acute pain of both knees Hypertension, unspecified type documented in this encounter Additional Health Concerns Assessment Noted Time PHQ-9 Depression Total Score: 0 01/30/20 24 10:37 AM EST documented as of this encounter Care Teams Tube Puller Relationship Specialty Start Date End Date James Flores MD [address] [place] [address] PCP - General Internal Medicine 02/04/14 documented as of this encounter
--- OUTSIDE RECORDS SUMMARY | 2024-06-19 12:44 | XMS_ITS | Encounter Summary ---
Author Organization [employer] Address [address] [place] [address] Care Team Providers Care Secret Code Expert Name Role Phone James Flores MD Primary Care Provide r Encounter Details Date Type Department Care Team (Late st Contact Info) Description 01/09/2023 Orders Only [facility] [address] [place] [address] Jaja Hammond LPN Social History Tobacco Use [...] Description 07/23/2024 11:00 AM EDT Office Visit [facility] [address] [place] [phone] James Flores MD [address] [place] [address] 09/03/2024 11:15 AM EDT Office Visit [facility] [address] [place] [address] James Flores MD [address] [place] [address] documented as of this encounter Visit Diagnoses Not on filedocumented in this encounter Care Teams Secret Code Expert Relationship Specialty Start Date End Date James Flores MD [address] [place] [phone] PCP - General Internal Medicine 02/04/14 documented as of this encounter
--- OUTSIDE RECORDS SUMMARY | 2024-06-19 12:44 | XMS_ITS | Encounter Summary ---
Author Organization [employer] [facility] Address [address] [facility] 7t [place] [address] Care Team Providers Care Music Specialist Name Role Phone James Flores MD Primary Care Provide r Encounter Details Date Type Department Care Team (Late st Contact Info) Description 06/14/2022 Orders Only [facility] [address] [place] [address] Jaja Hammond LPN Social History Tobacco Use [...] Description 07/23/2024 11:00 AM EDT Office Visit [facility] [address] [place] [phone] James Flores MD [address] [place] [phone] 09/03/2024 11:15 AM EDT Office Visit [facility] [address] [place] [phone] James Flores MD [address] [place] [address] documented as of this encounter Visit Diagnoses Not on filedocumented in this encounter Care Teams Music Specialist Relationship Specialty Start Date End Date James Flores MD [address] [place] [phone] PCP - General Internal Medicine 02/04/14 documented as of this encounter
--- OUTSIDE RECORDS SUMMARY | 2024-06-19 12:44 | XMS_ITS | Encounter Summary ---
Author Organization [employer] [facility] Address [address] [facility] 7t [place] [address] Care Team Providers Care Certified Genetic Counselor Name Role Phone James Flores MD Primary Care Provide r Reason for Visit * Reason Onset Date Comments Nurse Triage 03/18/2024 Encounter Details Date Type Department Care Team (Late st Contact Info) Description 03/18/2024 Telephone [facility] [address] [place] [address] James Flores MD 230 [place] [address] Nurse Triage Social History Tobacco Use Types [...] 03/18/2024 11:50 AM EST Triage call with [facility] [place] [id number]. Pt reports continual coughing with cold symptoms. Pt was seen in [facility] 02/29/24 for cough and exacerbation of asthma. Pt reports has been using inhaler and nebulizer as prescribed though not every day.Pt denies having difficulty breathing. Pt requests to see provider again due to continuation of cough and cold symptoms neg for fever. Pt is advised to return to [facility] today open till 8pm and Pt agreeswith this disposition. Pt is requesting what medication could be taken for cough , Pt is taking BP medications and is advised to ask provider when seen in [facility] and Pt agrees. Insurance is verified as [...] 11:00 AM EDT Office Visit [facility] [address] [place] [address] James Flores MD [address] [place] [address] 09/03/2024 11:15 AM EDT Office Visit [facility] [address] [place] [address] James Flores MD [address] [place] [address] documented as of this encounter Visit Diagnoses Not on filedocumented in this encounter Additional Health Concerns Assessment Noted Time PHQ-9 Depression Total Score: 0 01/30/20 24 10:37 AM EST documented as of this encounter Care Teams Certified Genetic Counselor Relationship Specialty Start Date End Date James Flores MD [address] [place] [address] PCP - General Internal Medicine 02/04/14 documented as of this encounter
--- OUTSIDE RECORDS SUMMARY | 2024-06-19 12:45 | XMS_ITS | Encounter Summary ---
Author Organization [employer] [facility] Address [address] [facility] 7t [place] [address] Care Team Providers Care Natural Foods Clerk Name Role Phone James Flores MD Primary Care Provide r Encounter Details Date Type Department Care Team (Late Contact Info) Description 04/13/2022 Orders Only [facility] [address] [place] [address] [phone] April Olsen LPN Social History Tobacco Use [...] Description 07/23/2024 11:00 AM EDT Office Visit [facility] 230 [place], [place] [phone] James Flores MD 230 [place], [place] [phone] 09/03/2024 11:15 AM EDT Office Visit [facility] [address] [place] [address] James Flores MD 230 [place] [address] documented as of this encounter Visit Diagnoses Not on filedocumented in this encounter Care Teams Natural Foods Clerk Relationship Specialty Start Date End Date James Flores MD [address] [place] [address] PCP - General Internal Medicine 02/04/14 documented as of this encounter
--- OUTSIDE RECORDS SUMMARY | 2024-06-19 12:45 | XMS_ITS | Clinical Summary ---
Author Organization [facility] Address [address] [address] [place] [address] Phone Care Team Providers Care Mechanical Intern Name Role Phone James Grant MD Primary [...] patient's age to complete this topic Insurance [employer] [place] [id number] [employer] Care Teams Mechanical Intern Relationship Specialty Start Date End Date James Grant MD PCP - General 03/23/20
--- OUTSIDE RECORDS SUMMARY | 2024-06-19 12:45 | XMS_ITS | Encounter Summary ---
Author Organization [employer] Address 75 [facility] 7t [place] [address] Care Team Providers Care Pricing Consultant Name Role Phone James Flores MD Primary Care Provide r Encounter Details Date Type Department Care Team ([facility] st Contact Info) Description 03/14/2023 Telephone [facility] 230 [place], [place] [phone] Adriana Odell MA Social History Tobacco Use [...] Description 07/23/2024 11:00 AM EDT Office Visit [facility] 230 [place] [address] James Flores MD 230 [place] [address] 09/03/2024 11:15 AM EDT Office Visit [facility] [address] [place] [address] James Flores MD [address] [place] [address] documented as of this encounter Visit Diagnoses Not on filedocumented in this encounter Care Teams Pricing Consultant Relationship Specialty Start Date End Date James Flores MD [address] [place] [address] PCP - General Internal Medicine 02/04/14 documented as of this encounter
--- OUTSIDE RECORDS SUMMARY | 2024-06-19 12:45 | XMS_ITS | Encounter Summary ---
Author Organization [employer] [facility] Address [address] [facility] 7t [place] [address] Care Team Providers Care Aquarium Tank Attendant Name Role Phone James Flores MD Primary Care Provide r Reason for Visit * Reason Onset Date Comments Pre op 01/11/2024 Encounter Details Date Type Department Care Team (Late st Contact Info) Description 01/11/2024 Telephone [facility] 230 [place] [address] James Flores MD 230 [place], [place] [phone] Pre op Social History Tobacco Use Types [...] [facility] Surgeon's office number: [phone] Surgeon's office fax number: [phone] Contact name (person you spoke with): Marcelo Last office note from surgeon requested: No Pt scheduled for Pre op on 02/07/24 with Pro documented in this encounter Plan of Treatment Upcoming Encounters Date Type Department Care Team ([facility] st Contact Info) Description 07/23/2024 11:00 AM EDT Office Visit [facility] MEDICINE [address] [place] [address] James Flores MD [address] [place] [address] 09/03/2024 11:15 AM EDT Office Visit [facility]INE [address] [place] [address] James Flores MD [address] [place] [address] documented as of this encounter Visit Diagnoses Not on filedocumented in this encounter Care Teams Aquarium Tank Attendant Relationship Specialty Start Date End Date James Flores MD [address] [place] [address] PCP - General Internal Medicine 02/04/14 documented as of this encounter
--- OUTSIDE RECORDS SUMMARY | 2024-06-19 12:45 | XMS_ITS | Encounter Summary ---
Author Organization [employer] [facility] Address [address] [facility] 7t [place] [address] Care Team Providers Care Bit Tripoler Name Role Phone James Flores MD Primary Care Provide r Encounter Details Date Type Department Care Team ([facility] Contact Info) Description 02/21/2022 Abstract [facility] MEDICINE [address] [place] [address] James Flores MD [address] [place] [address] Social History Tobacco Use Types Packs/Day Years [...] Description 07/23/2024 11:00 AM EDT Office Visit [facility] MEDICINE [address] [place] [address] [phone] James Flores MD [address] [place] [address] 09/03/2024 11:15 AM EDT Office Visit [facility] [address] [place] [phone] James Flores MD [address] [facility] [place] [phone] documented as of this encounter Procedures Procedure Name Priority Date/Time Associated Diagnosis Comments PAP/HPV Routine 01/17/2022 MAMMOGRAPHY Routine 01/29/2021 documented in this encounter Results * Pap Smear (01/17/2022) Pap smear NIL HPV mRNA E6/E7 not detected Comment:Opal NOONAN Historical Provider HEALTH MAINTENANCE Final Result * Mammography (01/29/2021) Mammogram BI-RADS 1 Anatomical Region Laterality Modality Other Historical Provider HEALTH MAINTENANCE Final Result documented in this encounter Visit Diagnoses Not on filedocumented in this encounter Care Teams Bit Tripoler Relationship Specialty Start Date End Date James Flores MD [facility] [place], [place] [phone] PCP - General Internal Medicine 02/04/14 documented as of this encounter
--- OUTSIDE RECORDS SUMMARY | 2024-06-19 12:45 | XMS_ITS | Encounter Summary ---
Author Organization [employer] [facility] Address [address] [facility] 7t [place] [address] Care Team Providers Care Central Office Associate Name Role Phone James Flores MD Primary Care Provide r Encounter Details Date Type Department Care Team ([facility] Contact Info) Description 03/17/2022 Orders Only [facility] [address] [place], [place] [phone] Jaja Hammond LPN Social History Tobacco Use [...] Upcoming Encounters Date Type Department Care Team ([facility] Contact Info) Description 07/23/2024 11:00 AM EDT [facility] 230 [place], [place] [phone] James Flores MD 230 [place], [place] [phone] 09/03/2024 11:15 AM EDT [facility] [address] [place] [address] James Flores MD 230 [place] [address] documented as of this encounter Visit Diagnoses Not on filedocumented in this encounter Care Teams Central Office Associate Relationship Specialty Start Date End Date James Flores MD [address] [place] [address] PCP - General Internal Medicine 02/04/14 documented as of this encounter
--- OUTSIDE RECORDS SUMMARY | 2024-06-19 12:45 | XMS_ITS | Encounter Summary ---
Author Organization [facility] Address [address] [place] [address] Phone Care Team Providers Care Active Directory Architect Name Role Phone James Grant MD Primary Care Provider Unav ailable Reason for Visit * Reason Comments Med Refill Encounter Details Date Type Department Care Team (Late st Contact Info) Description 12/14/2022 Refill [facility] [address] [place] [address] Osmany Leung MD Social History [...] on filedocumented in this encounter Care Teams Active Directory Architect Relationship Specialty Start Date End Date James Grant MD PCP - General 03/23/20 documented as of this encounter
--- OUTSIDE RECORDS SUMMARY | 2024-06-19 12:45 | XMS_ITS | Encounter Summary ---
Author Organization [employer] [facility] Address [address] [facility] 7t [place] [address] Care Team Providers Care Solid Waste Technician Name Role Phone James Flores MD Primary Care Provide r Encounter Details Date Type Department Care Team (Late st Contact Info) Description 05/11/2022 Telephone [facility] MEDICINE [address] [place] [address] [phone] James Flores MD [address] [place] [address] [phone] Social History Tobacco Use Types Packs/Day Years [...] Description 07/23/2024 11:00 AM EDT Office Visit [facility] MEDICINE [address] [place] [address] [phone] James Flores MD [address] [place] [address] [phone] 09/03/2024 11:15 AM EDT Office Visit [facility] MEDICINE [address] [place] [address], [place] [address] James Flores MD [address] [place] [address] documented as of this encounter Visit Diagnoses Not on filedocumented in this encounter Care Teams Solid Waste Technician Relationship Specialty Start Date End Date James Flores MD [address] [facility] [place] [address] PCP - General Internal Medicine 02/04/14 documented as of this encounter
--- OUTSIDE RECORDS SUMMARY | 2024-06-19 12:45 | XMS_ITS ---
Author Name Mr. Arlen Márquez Address [address] [place] [address] Phone [phone] [facility] Care Team Providers Care Licensed Professional Counselor Name Role Phone Micah Judge Unavailable [phone] Reason for Referral Not Available Allergies, adverse [...] 2021-11-04 No Data Available [employer] [facility] Kowqlp44D Miscellaneous TEST BLOOD SUGAR THREE OR FOUR [...] of Service Diagnosis/Co mplaint No Data Available [facility] [place]/2022 Type 2 diabetes mellitus wit h diabetic chronic kidney diseaseChronic kidney disease, stage 3bLong term (current) use of insulinMorbid (severe) obesity due to excess caloriesBody mass index (BMI) 40.0-44.9, adultOther specified health statusConstipation, unspecifiedProblems related to health literacyPrsnl hx of TIA (TIA), and cereb infrc w/o resid deficits No Data Available [facility], [facility]) 07/12/[address] [facility], [facility]) 07/12/[address] [facility], [facility]) 07/12/[address] [facility], [facility]) 07/12/[address] [facility] [place] 07/12/[address] [facility] [place] 07/22/2022 Morbid (severe) obesity due to excess caloriesBody mass index (BMI) 40.0-44.9, adultType 2 diabetes mellitus with diabetic chronic kidney diseaseChronic kidney disease, stage 3bPrsnl hx of TIA (TIA), and cereb infrc w/o resid deficitsOther specified health status No Data Available [facility] [place] 07/22/2022 Vital Signs Date of Collection Vitals 2022-07-12 11:38:39 Height - 147.32 cmWe ight - 87.09 kgBody Mass Index (BMI) - 40.13 kg/m2 Social History Sex Female History of Procedures Procedures Service Procedure code Service date Servicing provider Phone# No Data Available [id number] 2022-07-12 No Data Available No Data Available [...] le No Data Available No Data Available [id number] 2022-07-22 No Data Available No Data Available [...] modifier 95)Continue to see PCP. Follow-up with [facility] as needed for any acute or [...]
--- OUTSIDE RECORDS SUMMARY | 2024-06-19 12:45 | XMS_ITS | Encounter Summary ---
Author Organization [facility] Address [address] [facility] 7t [place] [address] Care Team Providers Care Gravity Meter Observer Name Role Phone James Flores MD Primary Care Provide r Reason for Visit * Reason Comments Med Refill Encounter Details Date Type Department Care Team ([facility] st Contact Info) Description 03/12/2023 Refill [facility] 230 [place] [address] James Flores MD 230 [place] [address] Chronic anemia Social History Tobacco Use Types [...] 07/23/2024 11:00 AM EDT Office Visit [facility] MEDICINE [address] [place] [address] James Flores MD [address] [place] [address] 09/03/2024 11:15 AM EDT Office Visit [facility]INE [address] [place] [address] James Flores MD 230 [place] [address] documented as of this encounter Visit Diagnoses Diagnosis Chronic anemia Unspecified anemia documented in this encounter Care Teams Gravity Meter Observer Relationship Specialty Start Date End Date James Flores MD [address] [place] [address] PCP - General Internal Medicine 02/04/14 documented as of this encounter
[2024-06-19 13:03] LABS: Erythrocyte Sedimentation Rate 98 MM/HR (0-20)
[2024-06-19 14:20] LABS: C Reactive Protein 2.44 mg/dL (< or = 0.50)
[2024-06-20 06:22] LABS: Lyme Abs Screen <0.90 index
[2024-06-20 10:04] LABS: RPR Rapid Plasma Reagin NON-REACTIVE (NON-REACTIVE)
== END 2024-06-19 10:54 | disposition home or self-care (01) ==
LOC: HO.HHCL 10:53
PROVIDERS: Internal Medicine Endocrinology, Diabetes & Metabolism; Visit Provider Emergency Medicine
DX: R51.9 Headache, unspecified (principal); M54.2 Cervicalgia; E83.52 Hypercalcemia
CPT/HCPCS: 36415; 82040; 82306; 82310; 83970; 85652; 86140; 86592; 86617; 86618

== ENCOUNTER 2024-06-28 08:11 | Outpatient (REF) | payer OTHER, SELFPAY ==
--- NOTE | ~2024-06-28 | US_ITS ---
CLINICAL HISTORY: Bitemporal headache, presumptive diagnosis of temporal artery arteritis .Temporal A rtery evaluation US Bilateral temporal artery Duplex Comparison: None Findings: On the right, the common temporal artery velocity is 50 cm/sec with no halo or stenosis identified. The frontal ramus artery velocity is 63 cm/second with no halo or stenosis. On the left, common temporal artery velocity is 131 cm/second with no halo or stenosis and tortuous vessel as possible etiology of the velocity measured. Frontal ramus artery is 34 cm/second with no halo or stenosis. IMPRESSION: Normal temporal arteries, no significant stenosis. Tortuous left temporal artery. This document has been electronically signed by: David Poole MD on 06/29/2024 09:18:29
--- OUTSIDE RECORDS SUMMARY | 2024-06-28 08:31 | XMS_ITS | Encounter Summary ---
Author Organization [facility] Address [address] [facility] 7t [place] [address] Care Team Providers Care Machine Loader Name Role Phone James Flores MD Primary Care Provide r Encounter Details Date Type Department Care Team (Late st Contact Info) Description 06/14/2022 Orders Only [facility]S [address] [place] [address] Jaja Hammond LPN Social History Tobacco Use [...] [facility] MEDICINE [address] [place] [address] James Flores MD [address] [place] [address] 09/03/2024 11:15 AM EDT Office Visit [facility] MEDICINE [address] [place] [address] James Flores MD 230 [place] [address] documented as of this encounter Visit Diagnoses Not on filedocumented in this encounter Care Teams Machine Loader Relationship Specialty Start Date End Date James Flores MD [address] [place] [address] PCP - General Internal Medicine 02/04/14 documented as of this encounter
--- OUTSIDE RECORDS SUMMARY | 2024-06-28 08:31 | XMS_ITS | Encounter Summary ---
Author Organization [employer] [facility] Address [address] [facility] 7t [place] [address] Care Team Providers Care Iron Miner Blasting Name Role Phone James Flores MD Primary Care Provide r Encounter Details Date Type Department Care Team (Late st Contact Info) Description 08/22/2022 Orders Only [facility]S 505 [place] [address] Jaja Hammond LPN Social History Tobacco Use [...] Description 07/23/2024 11:00 AM EDT Office Visit [facility] MEDICINE [address] [place] [address] James Flores MD [address] [place] [address] 09/03/2024 11:15 AM EDT Office Visit [facility] MEDICINE [address] [place] [address] James Flores MD 230 [place] [address] documented as of this encounter Visit Diagnoses Not on filedocumented in this encounter Care Teams Iron Miner Blasting Relationship Specialty Start Date End Date James Flores MD [address] [place] [address] PCP - General Internal Medicine 02/04/14 documented as of this encounter
--- OUTSIDE RECORDS SUMMARY | 2024-06-28 08:32 | XMS_ITS | Encounter Summary ---
Author Organization [employer] [facility] Address [address] [facility] 7t [place] [address] Care Team Providers Care Mastic Sprayer Name Role Phone James Flores MD Primary Care Provide r Reason for Visit * Reason Onset Date Comments Nurse Triage 03/18/2024 Encounter Details Date Type Department Care Team (Late st Contact Info) Description 03/18/2024 Telephone [facility] MEDICINE 230 [place] [address] James Flores MD 230 [place] [address] Nurse Triage Social History Tobacco Use Types [...] 03/18/2024 11:50 AM EST Triage call [place] [facility] [place] [id number]. Pt reports continual coughing with cold symptoms. Pt was seen in [facility] 02/29/24 for cough and exacerbation of asthma. Pt reports has been using inhaler and nebulizer as prescribed though not every day.Pt denies having difficulty breathing. Pt requests to see provider again due to continuation of cough and cold symptoms neg for fever. Pt is advised to return to [facility] today open till 8pm and Pt agreeswith this disposition. Pt is requesting what medication could be taken for cough , Pt is taking BP medications and is advised to ask provider when seen in [facility] and Pt agrees. Insurance is verified [...] Description 07/23/2024 11:00 AM EDT Office Visit [facility] MEDICINE 230 [place] [address] James Flores MD 230 [place] [address] 09/03/2024 11:15 AM EDT Office Visit [facility] MEDICINE [address] [place] [address] James Flores MD 230 [place] [address] documented as of this encounter Visit Diagnoses Not on filedocumented in this encounter Additional Health Concerns Assessment Noted Time PHQ-9 Depression Total Score: 0 01/30/20 24 10:37 AM EST documented as of this encounter Care Teams Mastic Sprayer Relationship Specialty Start Date End Date James Flores MD [address] [place] [address] PCP - General Internal Medicine 02/04/14 documented as of this encounter
--- OUTSIDE RECORDS SUMMARY | 2024-06-28 08:32 | XMS_ITS | Encounter Summary ---
Author Organization [employer] [facility] Address [address] [facility] 7t [place] [address] Care Team Providers Care Fiber Optic Assembler Name Role Phone James Flores MD Primary Care Provide r Reason for Visit * Reason Comments Med Refill Encounter Details Date Type Department Care Team (Late st Contact Info) Description 06/22/2024 Refill [facility] MEDICINE 230 [place] [address] James Flores MD [address] [place] [address] Seasonal allergies Social History Tobacco Use Types Packs/Day Years [...] Description 07/23/2024 11:00 AM EDT Office Visit [facility] MEDICINE [address] [place] [address] James Flores MD [address] [place] [address] 09/03/2024 11:15 AM EDT Office Visit [facility] MEDICINE [address] [place] [address] James Flores MD [address] [place] [address] documented as of this encounter Visit Diagnoses Diagnosis Seasonal allergies Allergic rhinitis, cause unspecified documented in this encounter Additional Health Concerns Assessment Noted Time PHQ-9 Depression Total Score: 0 01/30/20 10:37 AM EST documented as of this encounter Care Teams Fiber Optic Assembler Relationship Specialty Start Date End Date James Flores MD [address] [place] [address] PCP - General Internal Medicine 02/04/14 documented as of this encounter
--- OUTSIDE RECORDS SUMMARY | 2024-06-28 08:32 | XMS_ITS | Encounter Summary ---
Author Organization [employer] [facility] Address [address] [facility] 7t [place] [address] Care Team Providers Care Repair Miller Name Role Phone James Flores MD Primary Care Provide r Reason for Visit * Reason Onset Date Comments Pre op 01/11/2024 Encounter Details Date Type Department Care Team (Late st Contact Info) Description 01/11/2024 Telephone [facility] MEDICINE 230 [place] [address] James Flores MD 230 [place], [place] [phone] Pre op Social History Tobacco Use Types [...] [facility] Surgeon's office number: [phone] Surgeon's office fax number: [phone] Contact name (person you spoke with): Marcelo Last office note from surgeon requested: No Pt scheduled for Pre op on 02/07/24 with Pro documented in this encounter Plan of Treatment Upcoming Encounters Date Type Department Care Team ([facility] st Contact Info) Description 07/23/2024 11:00 AM EDT Office Visit [facility] MEDICINE [address] [place] [address] James Flores MD [address] [place] [address] 09/03/2024 11:15 AM EDT Office Visit [facility] MEDICINE [address] [place] [address] James Flores MD [address] [place] [address] documented as of this encounter Visit Diagnoses Not on filedocumented in this encounter Care Teams Repair Miller Relationship Specialty Start Date End Date James Flores MD 230 [place] [address] PCP - General Internal Medicine 02/04/14 documented as of this encounter
--- OUTSIDE RECORDS SUMMARY | 2024-06-28 08:32 | XMS_ITS | Encounter Summary ---
Author Organization [employer] Address [address] [facility] [address] [place] [address] Care Team Providers Care Engineer Sergeant Name Role Phone aJmes Flores MD Primary Care Provide r Encounter Details Date Type Department Care Team ([facility] st Contact Info) Description 03/14/[address] [facility] [address] [place], [place] [phone] Adriana Odell MA Social History Tobacco Use [...] 11:00 AM EDT Office Visit [facility] [address] [place] [address] James Flores MD [address] [place] [address] 09/03/2024 11:15 AM EDT Office Visit [facility] [address] [place] [address] James Flores MD [address] [place] [phone] documented as of this encounter Visit Diagnoses Not on filedocumented in this encounter Care Teams Engineer Sergeant Relationship Specialty Start Date End Date James Flores MD [address] [place] [phone] PCP - General Internal Medicine 02/04/14 documented as of this encounter
--- OUTSIDE RECORDS SUMMARY | 2024-06-28 08:32 | XMS_ITS | Encounter Summary ---
Author Organization [employer] Address [address] [facility] [address]t [place] [address] Care Team Providers Care Tool And Die Maker Name Role Phone James Flores MD Primary Care Provide r Encounter Details Date Type Department Care Team ([facility] st Contact Info) Description 01/11/2024 Telephone [facility] [address] [place], [place] [phone] James Flores MD [address] [place], [place] [phone] Social History Tobacco Use Types Packs/Day Years [...] Description 07/23/2024 11:00 AM EDT Office Visit [facility] [address] [place] [address] James Flores MD [address] [place] [phone] 09/03/2024 11:15 AM EDT Office Visit [facility] [address] [place] [address] James Flores MD [address] [place] [phone] documented as of this encounter Visit Diagnoses Not on filedocumented in this encounter Care Teams Tool And Die Maker Relationship Specialty Start Date End Date James Flores MD [address] [place] [phone] PCP - General Internal Medicine 02/04/14 documented as of this encounter
--- OUTSIDE RECORDS SUMMARY | 2024-06-28 08:32 | XMS_ITS | Encounter Summary ---
Author Organization [facility] Address [address] [facility] [address] [place] [address] Care Team Providers Care Wage Analyst Name Role Phone James Flores MD Primary Care Provide r Reason for Visit * Reason Comments Med Refill Encounter Details Date Type Department Care Team (Late st Contact Info) Description 08/27/2023 Refill [facility] [address] [place] [address] Name, MD Loki [address] [place] [address] Gastroesophageal reflux disease without esophagitis Social History [...] Description 07/23/2024 11:00 AM EDT Office Visit [facility] [address] [place] [phone] James Flores MD [address] [place] [phone] 09/03/2024 11:15 AM EDT Office Visit [facility] [address] [place] [phone] James Flores MD [address] [place] [phone] documented as of this encounter Visit Diagnoses Diagnosis Gastroesophageal reflux disease without esophagitis Esophageal reflux documented in this encounter Care Teams Wage Analyst Relationship Specialty Start Date End Date James Flores MD [address] [place] [id number] PCP - General Internal Medicine 02/04/14 documented as of this encounter
--- OUTSIDE RECORDS SUMMARY | 2024-06-28 08:32 | XMS_ITS | Clinical Summary ---
Author Organization [employer] Address [address] [facility] [address] [place] [address] Care Team Providers Care Lightning Rod Erector Name Role Phone James Flores MD Primary Care Provide r Allergies Active Allergy Reactions Criticality Noted Date Comments Amoxicillin 05/10/2012 Chlorothiazide 05/10/2012 Ciprofloxacin 05/10/2012 Codeine 05/10/2012 Diphenhydramine 05/10/2012 Fosinopril Other reaction(s): elevated potassium Morphine Palpitations Low 04/12/2013 Nitrofurantoin 05/10/2012 Oxycodone 04/12/2013 Oxycodone-Acetaminophen 02/07/2024 Sulfa Antibiotics 05/10/2012 Vancomycin 05/10/2012 Medications Lancets mis Active Ozempic, 0.25 or 0.5 MG/DOSE, 2 MG/3ML solution pen-injector INJECT 0.25 MG SUBCUTANEOUSLY ONCE PER WEEK FOR 28 DAYS Active OneTouch Verio test strip USE DIRECTED 023 Active ezetimibe (Zetia) 10 MG tablet Take 10 mg by mouth in the morning. 023 Active docusate sodium (Colace) 100 MG capsule TAKE 2 CAPSULES BY MOUTH EVERY DAY AT BEDTIME Active Vitamin D High Potency 25 MCG (1000 UT) capsule Take 25 mcg by mouth in the morning. 023 Active Calcium Citrate-Vitamin D (Harlan Calcium/Vitamin D) 200-6.25 MG-MCG tablet TAKE 2 [...] USE DIRECTED 100 each 11 024 Active polycarbophil (Fiber-Lax) 625 MG tablet Take [...] CHANGE EVERY 14 DAYS Active Continuous Glucose Photocomposition Keyboard Operator (FreeStyle Collin 3 Russell) device USE DIRECTED Active bisacodyl (Dulcolax) 10 [...] complication, with long-term current use of insulin ([facility]) INJECT 35 UNITS SUBCUTANEOUSLY ONCE DAILY 15 mL 2 024 Active HumaLOG KWIKPEN 100 UNIT/ML injectionIndicat ions:Type 2 diabetes mellitus without complication, with long-term current use of insulin ([facility]) INJECT 6 TO 16 UNITS SUBCUTANEOUSLY DIRECTED PER SLIDING SCALE BLOOD SUGAR 150-200 = 6 UNITS, 201-250 = 10U, 251-300 = 12U, 301-350 = 14U, > 351 = 16U 15 mL 3 025 Active nystatin (Mycostatin) 271540 UNIT/GM powderIndication s:Tinea corporis Apply topically 2 [...] each 2 times daily. 1 kit 025 2025 Active hydrOXYzine HCl (Atarax) 25 MG tabletIndication s:Anxiety Take 0.5 tablets (12.5 mg) by mouth every 8 (eight) hours if needed for anxiety. May take 1/2 to 1 tablet every 8 hours prn 30 tablet 025 Active amLODIPine (Norvasc) 5 MG tablet TAKE 1 TABLET BY MOUTH EVERY EVENING 30 tablet 5 Active loratadine (Claritin) 10 MG tabletIndication s:Seasonal allergies TAKE 1 TABLET BY MOUTH EVERY MORNING 30 tablet 5 Active acetaminophen (Tylenol) 500 MG tablet Take 2 tablets (1,000 mg) by mouth every 6 (six) hours if needed for moderate pain or fever for up to 25 doses. 50 tablet Active predniSONE (Deltasone) 10 MG tablet Take 3 tablets (30 mg) by mouth Once per day for 7 days. 21 tablet 025 2024 Active amLODIPine (Norvasc) 5 MG tablet TAKE 1 TABLET BY MOUTH EVERY EVENING 30 tablet 5 024 2024 Discontinued loratadine (Claritin) 10 MG tabletIndication s:Seasonal allergies TAKE 1 TABLET BY MOUTH EVERY MORNING 30 tablet 5 024 2024 Discontinued senna (Senokot) 8.6 MG tablet Take 1 tablet by mouth if needed at bedtime. 2024 Discontinued(R eorder (will not trigger notification to Pharmacy)) acetaminophen (Tylenol Extra Strength) 500 MG tabletIndication s:Acute pain of both knees Take 1 tablet (500 mg) by mouth every 8 (eight) hours if needed for mild pain for up to 10 days. 30 tablet 025 2024 predniSONE (Deltasone) 20 MG tablet Take 2 tablets (40 mg) by mouth Once per day for 7 days. Monitor blood glucose levels while taking prednisone. 14 tablet 025 2024 Active Problems Problem Noted [...] underwent Colpo with biopsies & ECC per [employer] notes from 04/2017 Colonoscopy: 07/2022 Tubular adenoma repeat 3 years Vaccines: Flu shot: tdap: 05/31/2013 Dexa scan:. 04/28/2015 showed osteopenia Assessment & Plan (01/30/2024 11:02 AM EST): Routine physical exam today: within normal limits Mammogram: NL : 02/22/2023 Pap Smear: 06/27/2023: Normal In 11/24/2016 ASCUS with positive HPV. Pt underwent Colpo with biopsies & ECC per [employer] notes from 04/2017 Colonoscopy: 07/2022 Tubular adenoma repeat 3-5 years Vaccines: Flu shot: tdap: 05/31/2013 Dexa scan:. 04/28/2015 showed osteopenia Assessment & Plan (01/19/2023 1:43 PM EST): Mammogram: NL : 01/29/2021 Pap Smear: 11/24/2016 ASCUS with positive HPV. Pt underwent Colpo with biopsies & ECC per [employer] notes from 04/2017 she was supposed to have a repeat with co test 04/2018 and if both neg then would f/u in 3 years records requested Colonoscopy: 07/2022 Tubular adenoma repeat 3-5 years Vaccines: Flu shot: tdap: 05/31/2013 Dexa scan:. 04/28/2015 showed osteopenia History of CVA (cerebrovascular accident) 2021 Assessment & Plan (05/30/2024 9:07 AM EDT): Hx of this Pt was admitted to [facility] from 10:12/31-12/22/2020 Patient presented to ED [...] Hx of this Pt was admitted to [facility] from 10:12/31-12/22/2020 Patient presented to ED [...] compliance with Plavix 4 months f/u with ms Pt advised to: adhere to diabetic diet [...] Plan (01/31/2023 11:27 AM EST): Seen at [facility] 01/28/2023 with an asthma exacerbation Doing [...] disease and negative nuclear stress test at [facility] . Due to her Hx of [...] disease and negative nuclear stress test at [facility] . Due to her recent CVA she is now back on Plavix, she is now being followed by Dr Singh last seen 07/2022 Assessment & Plan (01/19/2023 1:40 PM EST): Pt is here for a f/u Known Hx of CAD s/p cardiac cath 02/21/2006 E.F 60 % [address] Melchor Weber put a ESTEHPANIE. she is was under the care of Dr Dhaliwal, last seen on: 03/25/2015 His impression was that pt had CAD with 3 vessel disease and negative nuclear stress test at [facility] . Due to her recent CVA [...] Encounters Date Type Department Care Team Description 06/26/2024 10:00 AM EDT Office Visit [facility] [address] [place] [phone] Ludwin Sylvester MD Temporal headache (Primary Dx); Hypertension, unspecified type 06/22/2024 Refill [facility] [address] [place] [phone] James Flores MD Seasonal allergies 06/20/2024 Telephone [facility] [address] [place] [phone] Ludwin Sylvester MD 06/20/2024 Telephone [facility] [address] [place] [phone] Sarah Mark, LISA Plan of care 06/20/2024 Orders Only [facility] [address] [place] [phone] Ludwin Sylvester MD Giant cell arteritis (CMS/HCC) (Primary Dx); Anxiety 06/20/2024 Telephone [facility] [address] [place] [phone] Sarah Mark, LISA Plan of care 06/19/2024 10:20 AM EDT Office Visit [facility] [address] Ludwin Sylvester MD Neck pain (Primary Dx); Acute intractable headache, unspecified headache type; Acute pain of both knees; Hypertension, unspecified type 06/19/2024 Orders Only GENERIC EXTERNAL DATA DEPARTMENT Provider, Generic External Data 06/12/2024 Telephone [facility] [address] [place] [phone] Diana Coates, LISA Results 06/12/2024 Orders Only [address] [address] James Flores MD Thyroid nodule (Primary Dx) 06/08/2024 Orders Only GENERIC EXTERNAL DATA DEPARTMENT Provider, Generic External Data 05/30/2024 9:15 AM EDT Office Visit [address] [address] James Flores MD Type 2 diabetes mellitus with stage 3a chronic kidney disease, with long-term current use of insulin ([facility]) (Primary Dx); Primary hypertension; Mixed hyperlipidemia; Coronary artery disease involving [place] coronary artery of [place] heart without angina pectoris; Severe obesity (CMS/[facility]); Dietary counseling; Exercise counseling; History of CVA (cerebrovascular accident); Age-related osteoporosis without current pathological fracture; Acute pain of both knees; Encounter for immunization 05/30/2024 Patient Outreach [facility] [address] [place] [phone] James Flores MD Care Coordination (CHW outreach for SDOH housing search-referral completed ) 05/30/2024 Travel 05/23/2024 Refill [facility] [place] [address] James Flores MD Chronic anemia 05/22/2024 Telephone [facility] [address] [place] [phone] James Flores MD Chart Prep 05/20/2024 Refill [facility] [address] [place] [phone] James Flores MD 05/10/2024 Refill [facility] [address] [place] [address] Coco Montiel NP Mild intermittent asthma without complication 05/01/2024 Orders Only GENERIC EXTERNAL DATA DEPARTMENT Provider, Generic External Data from Last 3 Months Immunizations Name Administration [...] Sign Reading Time Taken Comments Blood Pressure 153/79 06/26/2024 10:23 AM EDT Pulse 77 06/26/2024 10:23 AM EDT Temperature 35.9 ??C (96.7 ??F) 06/26/2024 10:23 AM E DT Respiratory Rate 18 06/26/2024 10:23 AM EDT Oxygen Saturation 98% 06/26/2024 10:23 AM EDT Inhaled Oxygen Concentration - - Weight 78.5 kg (173 lb) 06/26/2024 10:23 AM EDT Height 147.3 cm (4' 10 ) 05/30/2024 9:20 AM EDT Body Mass Index 36.16 05/30/2024 9:20 AM EDT Plan of Treatment Upcoming Encounters Date Type Department Care Team (Late st Contact Info) Description 07/23/2024 11:00 AM EDT Office Visit [facility] [address] [place] [address] James Flores MD [address] [place] [phone] 09/03/2024 11:15 AM EDT Office Visit [facility] [address] [place] [phone] James Flores MD [address] [place] [phone] Health Maintenance Due Date Last Done Comments [...] exists SDOH Screening 05/30/2025 05/30/2024 Tobacco Screening 06/26/2025 06/26/2024 Colonoscopy 07/11/2025 07/11/2022 Colorectal Cancer Screening 07/11/2025 HPV/Cotest 01/17/2027 01/17/2022, 110 09/2021, 11/24/2016 Pap Smear 06/21/2028 06/22/2023, 01/17/2022 [...] WITHOUT CALCIUM Routine 06/19/2024 10:56 AM EDT LYME DISEASE AB W/REFL TO BLOT (IGG, IGM) Routine 06/19/2024 10:56 AM EDT Neck pain Acute intractable headache, unspecified headache type SED RATE BY MODIFIED WESTERGREN Routine 06/19/2024 10:56 AM EDT Neck pain Acute intractable headache, unspecified headache type RPR (MONITOR) W/REFL TITER Routine 06/19/2024 10:56 AM EDT Neck pain Acute intractable headache, unspecified headache type C-REACTIVE PROTEIN Routine 06/19/2024 10 :26 AM EDT VITAMIN D,25-OH,TOTAL,IA Routine 06/19/2024 10:26 [...] disease, with long-term current use of insulin ([facility]) XR DEXA APPENDICULAR SKELETON Routine 05/15/2024 8:15 AM EST GLUCOSE, WHOLE BLOOD Routine 05/01/2024 9:11 AM EST POCT GLYCATED HEMOGLOBIN, TOTAL Routine 03/21/2024 9:51 [...] Recently Relevant to Health Maintenance Results * Lyme Disease Ab with Reflex to Blot (IgG, IgM) (06/19/2024 10:56 AM EDT) Lyme Antibody Screen <0.90 index [facility] Comment:Index Interpretation ----- < 0.90 Negative 0.90-1.09 Equivocal > 1.09 PositiveAs recommended by the Food and Drug Administration(FDA), all samples with positive or equivocalresults in a Borrelia burgdorferi antibody screenwill be tested using a blot method. Positive orequivocal screening test results should not beinterpreted as truly positive until verified as suchusing a supplemental assay (e.g., B. burgdorferi blot).The screening test and/or blot for B. burgdorferiantibodies may be falsely negative in early stagesof Lyme disease, including the period when erythemamigrans is apparent.THIS TEST WAS PERFORMED AT:[facility] [place] [phone] CHAND MD Lyme Blot TNP [facility] 06/19/2024 10:5 6 AM EDT 06/19/2024 11:51 AM EDT us Ludwin Sylvester MD LAB BLOOD ORDERABLES Final Resul t Performing Organization Address [facility] Co de Phone Number [facility] [address] [place] [address] [phone] * RPR (Monitor) with Reflex to??Titer (06/19/2024 10:56 AM EDT) RPR (Monitor) w/Refl Titer NON-REACTI VE NON-REACT [facility] Comment:THIS TEST WAS PERFOR MED AT:[facility] [place] [phone] CHAND MD Rapid Plasma Reagin Ab Titer TNP [facility] Blood Venous blood specimen / Unknown 06/19/2024 10:56 AM EDT 06/19/2024 11:40 AM EDT us Ludwin Sylvester MD LAB BLOOD ORDERABLES Final Resul t Performing Organization Address [facility] Co de Phone Number [facility] [address] [place] [phone] * (ABNORMAL) Sed Rate by Modified Sudharen (06/19/2024 10:56 AM EDT) Erythrocyte Sedimentation Rate 98(H) 0 - 20 MM/HR [facility] Comment:Patients with polycy themia and many hemoglobin abnormalitiesmay have depressed sed rates whereas patients with anemiamay have elevated sed rates. Blood Venous blood specimen / Unknown 06/19/2024 10:56 AM EDT 06/19/2024 11:40 AM EDT us Ludwin Sylvester MD LAB BLOOD ORDERABLES Final Resul t Performing Organization Address [facility] Co de Phone Number [facility] [address] [place] [phone] [phone] * PTH, Intact Without Calcium (06/19/2024 10:56 AM EDT) Parathyroid Hormone, Intact 60.9 8.7 - 77.1 pg/mL [facility] 06/19/2024 10:5 6 AM EDT 06/19/2024 11:40 AM EDT us Generic External Data Provider LAB BLOOD ORDERAB LES Final Result Performing Organization Address [facility]ZIP Co de Phone Number [facility] [address] [place] [phone] * Vitamin D, 25-Hydroxy, Total, Immunoassay (06/19/2024 10:26 AM EDT) Vitamin D 25-OH Total 41.0 >30 ng/mL [facility] Comment: Health Based Reference Values*< 20 ??ng/mL ??Glixssjxl49-50 ng/mL ??Insufficient> 30 ??ng/mL ??Sufficient*Altagracia GOODWIN. N [...] ORDERAB LES Final Result Performing Organization Address [facility] Co de Phone Number [facility] [address] [place] [phone] * (ABNORMAL) C-reactive Protein (06/19/2024 10:26 AM EDT) C Reactive Protein 2.44(H) < or = 0.50 mg/dL [facility] 06/19/2024 10:2 6 AM EDT 06/19/2024 11:49 AM EDT us Generic External Data Provider LAB BLOOD ORDERAB LES Final Result Performing Organization Address [facility] Co de Phone Number [facility] [address] [place] [phone] * (ABNORMAL) Calcium (06/19/2024 10:26 AM EDT) Calcium 10.6(H) 8.4 - 10.2 mg/dL [facility] 06/19/2024 10:2 6 AM EDT 06/19/2024 11:49 AM EDT us Generic External Data Provider LAB BLOOD ORDERAB LES Final Result Performing Organization Address [facility] Co de Phone Number [facility] [address] [place] [phone] * Albumin (06/19/2024 10:26 AM EDT) Albumin Level 4.1 3.5 - 5.0 g/dL [facility] 06/19/2024 10:2 6 AM EDT 06/19/2024 11:49 AM EDT Generic External Data Provider LAB BLOOD ORDERAB LES Final Result Performing Organization Address [facility] Co de Phone Number [facility] [address] [place] [phone] * CTA Head Neck w/ and w/o Contrast (06/08/2024 7:19 PM EDT) Anatomical Region Laterality Modality Head, Neck Computed Tomogra phy 06/08/2024 7:19 PM EDT Narrative 06/08/2024 7:20 PM EDT ? [facility] ?[address] ?[place] [address] ? CT Scan Report ? Signed ? Patient: Cappa,Jayne ?MR#: [id number] ? : 1955 ?Acct:[id number] ? Age/Sex: 69 / F ?ADM Date: 06/08/24 ? Loc: HO.ED ? Attending Dr: ? Ordering Physician: Ligia Marie ?? Date of Service: 06/08/24 ?? Procedure(s): CT angio head neck ?? Accession Number(s): [id number] ? cc: James Trimble MD; Ligia Marie ? Report Number: ?? [id number]: Total DLP = 1370.00 mGy-cm ? CLINICAL [...] OV> ?06/08/241919 ? DD/ 18 ? TD/TT: 06/08/241918 ? Air Control Electronics Operator: ? Procedure Note Donotuseinterpreter, Image - 06/08/[address] [address] [address] Scan Report Signed Patient: Olivia Lane#: [id number] : 6Acct:[id number] Age/Sex: 69 / FADM Date: 06/08/24 Loc: HO.ED Attending Dr: Ordering Physician: Ligia Marie Date of Service: 06/08/24 Procedure(s): CT angio head neck Accession Number(s): [id number] cc: James Trimble MD; Ligia Marie Report Number: [id number]: Total DLP = 1370.00 mGy-cm CLINICAL HISTORY: [...] in OV> 06/08/241919 DD/ 18 TD/TT: 06/08/241918 [employer] Control Electronics Operator: us [facility] External Provider IMG CT PROCEDURES Edited Result - Final * XR Knee 4+ Views Right (06/08/2024 6:30 PM EDT) Only the most recent of2 resultswithin the time period is included. Anatomical Region Laterality Modality Lower Extremities, Knee Right Radiogra phic Imaging 06/08/2024 6:30 PM EDT Narrative 06/08/2024 6:32 PM EDT ? [facility] ?[address] ?[place] [address] ?XRay Report ? Signed ? Patient: Cappa,Jayne ?MR#: [id number] ? : 1955 ?Acct:[id number] ? Age/Sex: 69 / F ?ADM Date: 06/08/24 ? Loc: HO.ED ? Attending Dr: ? Ordering Physician: Ligia Marie ?? Date of Service: 06/08/24 ?? Procedure(s): XR knee RT 4V ?? Accession Number(s): [id number] ? cc: James Trimble MD; Ligia Marie [...] injury to the right knee. ?? 2. Nmmk-fr-ftouxebx lateral compartment degenerative changes. ? This document has been electronically signed by: Reginaldo Lowry MD on ?? 06/08/2024 18:30:46 ? Dictated By: ?Reginaldo Lowry MD ? Signed By: ?<Electronically signed by Reginaldo Lowry MD in OV> ?06/08/24 183 ? DD/ 1830 ? TD/TT: 06/08/241829 ? Air Control Electronics Operator: ? Procedure Note Donjaelyn, Viridiana - 06/08/[address] [address] XRay Report Signed Patient: Jayne LaneMR#: [id number] : 1955cct:[id number] Age/Sex: 69 / FADM Date: 06/08/24 Loc: HO.ED Attending Dr: Ordering Physician: Ligia Marie Date of Service: 06/08/24 Procedure(s): XR knee RT 4V Accession Number(s): [id number] cc: James Trimble MD; Ligia Marie CLINICAL [...] acute injury to the right knee. 2. Uhpz-at-ahnoznth lateral compartment degenerative changes. This document has been electronically signed by: Reginaldo Lowry MD on 06/08/2024 18:30:46 Dictated By: Reginaldo Lowry MD Signed By: <Electronically signed by Reginaldo Lowry MD in OV> 06/08/241830 DD/ 29 TD/TT: 06/08/241829 Air Control Electronics Operator: [facility] External Provider IMG XR PROCEDURES Edited Result - Final * XR Knee 4+ Views Left (06/08/2024 6:29 PM EDT) Only the most recent of2 resultswithin the time period is included. Anatomical Region Laterality Modality Lower Extremities, Knee Left Rad[facility]ogra [facility] 06/08/2024 6:29 PM EDT Narrative 06/08/2024 6:30 PM EDT ? [facility] ?[address] ?[place] [address] ?XRay Report ? Signed ? Patient: Cappa,Jayne ?MR#: [id number] ? : 1955 ?Acct:[id number] ? Age/Sex: 69 / F ?ADM Date: 06/08/24 ? Loc: HO.ED ? Attending Dr: ? Ordering Physician: Ligia Marie ?? Date of Service: 06/08/24 ?? Procedure(s): XR knee LT 4V ?? Accession Number(s): [id number] ? cc: James Trimble MD; Ligia Marie [...] MD in OV> ?06/08/24 182 ? DD/ 182 ? TD/TT: 06/08/24 182 ? Air Control Electronics Operator: ? Procedure Note Ofelia, Viridiana - 06/08/[address] [place] [address] XRay Report Signed Patient: Jayne LaneMR#: [id number] : 6Acct:[id number] Age/Sex: 69 / FADM Date: 06/08/24 Loc: HO.ED Attending Dr: Ordering Physician: Ligia Marie Date of Service: 06/08/24 Procedure(s): XR knee LT 4V Accession Number(s): [id number] cc: James Trimble MD; Ligia Marie CLINICAL [...] in OV> 06/08/241828 DD/ 28 TD/TT: 06/08/241828 Air Control Electronics Operator: [facility] External Provider IMG XR PROCEDURES Edited Result - Final * SARS-CoV-2 RNA, Influenza A/B, and RSV RNA, Ql NAAT (06/08/2024 4:18 PM EDT) Influenza A PCR NEGATIVE Negative [facility] Influenza B PCR NEGATIVE Negative [facility] Resp Syncy Virus RNA Qual PCR NEGATIVE Negative [facility] SARS COV2 PCR NEGATIVE Negative [facility] Comment:All test results mus t be [...] use by authorized laboratories.Testing performed on the [employer] GeneXpert utilizingreal-time RT-PCR.All SARS CoV2 and positive influenza A/B results arereported to [facility]. 06/08/2024 4:18 PM EDT 06/08/2024 4:21 PM EDT us Generic External Data Provider LAB MICROBIOLOGY - GENERAL ORDERABLES Final Result [facility] [address] [place] [phone] * (ABNORMAL) CBC auto differential (06/08/2024 4:18 PM EDT) White Blood Count 6.4 4.8 - 10.8 X10*3/uL [facility] Red Blood Count 3.75(L) 4.20 - 5.50 X10*6/uL [facility] Hemoglobin 11.5(L) 12.0 - 16.0 g/dl [facility] Hematocrit 35.0(L) 37.0 - 47.0 % [facility] Mean Corpuscular Volume 93.3 80.0 - 98.0 fL [facility] Mean Corpuscular Hemoglobin 30.7 27.0 - 33.0 pg [facility] Mean Corpuscular HGB Conc 32.9 31.0 - 35.0 g/dl [facility] Red Cell Distribution Width 13.0 11.0 - 16.0 % [facility] Platelet Count 236 160 - 400 X10*3/uL [facility] Mean Platelet Volume 9.8 9.4 - 12.3 fL [facility] Neutrophils Percent Auto 62.4 45 - 73 % [facility] Imm Gran Pct Auto 0.5(H) 0.0 - 0.4 % [facility] Lymphocytes Percent Auto 29.3 20 - 40 % [facility] Monocytes Percent Auto 6.3 2 - 11 % [facility] Eosinophils Percent Auto 1.3 0 - 4 % [facility] Basophils Percent Auto 0.2 0 - 2 % [facility] NRBC Pct Auto 0.0 0.0 - 0.2 /100WBC [facility] Neutrophils Absolute Auto 4.0 2.0 - 8.3 x10*3/uL [facility] Imm Gran Abs Auto 0.03 0.00 - 0.03 X10*3/uL [facility] Lymphocytes Absolute Auto 1.9 1.2 - 4.9 X10*3/uL [facility] Monocytes Absolute Auto 0.4 0.1 - 1.2 X10*3/uL [facility] Eosinophils Absolute Auto 0.1 0.0 - 0.4 X10*3/uL [facility] Basophils Absolute Auto 0.0 0.0 - 0.2 X10*3/uL [facility] NRBC Abs Auto 0.000 0.0 - 0.012 X10*3/uL [facility] 06/08/2024 4:18 PM EDT 06/08/2024 4:21 PM EDT us Generic External Data Provider LAB BLOOD ORDERAB LES Final Result [facility] [address] [place] [phone] * (ABNORMAL) Basic Metabolic Panel (06/08/2024 4:18 PM EDT) Sodium 142 135 - 145 mmol/L [facility] Potassium 4.8 3.3 - 5.1 mmol/L [facility] Chloride 107 96 - 108 mmol/L [facility] Carbon Dioxide 28 22 - 29 mmol/L [facility] Anion Gap 12 12 - 20 [facility] Urea Nitrogen (BUN) 33(H) 9 - 16 mg/dL [facility] Creatinine, Serum 1.41(H) 0.5 - 1.4 mg/dL [facility] Creatinine Clr Calc Pharmacy 34.3 [facility] MEDICINE LABS Comment:Provided height and weight: 149.86 cm,79.7 kg.eGFR (calculated from the MDRD study equation) and eCrCl(calculated from the Cockcroft-Gault equation) are based ondifferent parameters and may not yield comparable results.If eCrCl result is absurd, please check patient'sheight/weight. Estimated Glomerular Filt Rate 37 [facility] Comment:Chronic Kidney Disea se: Estimated GFR < 60 mL/min/1.53f0Gfyywy Kidney Disease: Estimated GFR < 15 mL/min/1.73m2 Glucose 227(H) 60 - 115 mg/dL [facility] Calcium 10.1 8.4 - 10.2 mg/dL [facility] 06/08/2024 4:18 PM EDT 06/08/2024 4:21 PM EDT us Generic External Data Provider LAB BLOOD ORDERAB LES Final Result [facility] [address] [place] [phone] * (ABNORMAL) POCT Glucose (05/30/2024 9:25 AM EDT) Glucose Blood, POC 202(A) 60 - 200 mg/dL QC Media Lot # [id number] Lot# Expiration Date [id number] Blood Capillary blood specimen / Unknown 05/30/2024 9:25 AM EDT us James Ashraf MD POINT OF CARE TEST EN TER/EDIT ORDERABLES Final Result * XR DEXA APPENDICULAR SKELETON (05/15/2024 8:15 AM EST) Anatomical Region Laterality Modality Abdomen Radiographic Rena ging 05/15/2024 8:15 AM EST Narrative 05/17/2024 7:37 AM EST ? [facility] ? [address] ?[place] [address] ? Mammography Report ? Signed ? Patient: Cappa,Jayne ?MR#: [id number] ? : 1955 ?Acct:[id number] ? Age/Sex: 68 / F ?ADM Date: 05/15/24 ? Loc: HO.MAMMO ? Attending Dr: Lina Jason MD ? Ordering Physician: Lina Jason MD ?Results: ? Date of Service: 05/15/24 ?Follow Up: ? Procedure(s): XR DEXA appendicular skeleton ?? Accession Number(s): [id number] ? cc: James Trimble MD; Lina Jason MD ? EXAMINATION: ??DXA BONE DENSITY EXTREMITY ? HISTORY: ??Estrogen deficiency ? TECHNIQUE: Rasmussen Reports Dual energy absorptiometry (DEXA) ?? of the [...] the [employer]'s ?? [place] [facility] Metabolic Bone Disease, a World Health Organization (WHO) ?? Collaborating Center. ? Electronically signed by: ??Zev Mukherjee MD ??05/17/2024 07:34 AM EST ?? RP ? Dictated By: ?Zev Mukherjee MD ? Signed By: ?<Electronically signed by Zev Mukherjee MD in OV> ?05/17/24 0734 ? DD/ 0815 ? TD/TT: 05/15/24 0840 ? Air Control Electronics Operator: ? Procedure Note Donotuseinterpreter, Image - 05/17/[address] [facility] [address] [place], [place] [address] Mammography Report Signed Patient: Jayne LaneMR#: [id number] : 6Acct:[id number] Age/Sex: 68 / FADM Date: 05/15/24 Loc: JOCYO Attending Dr: Lina Jason MD Ordering Physician: Lina Jason MDResults: Date of Service: 05/15/24Follow Up: Procedure(s): XR DEXA appendicular skeleton Accession Number(s): [id number] cc: James Trimble MD; Lina Jason MD EXAMINATION: DXA BONE DENSITY EXTREMITY HISTORY: Estrogen deficiency TECHNIQUE: Rasmussen Reports Dual energy absorptiometry (DEXA) of the lumbar [...] is a trademark of the [employer]'s [place] [facility] Metabolic Bone Disease, a World Health Organization (WHO) Collaborating Center. Electronically signed by: Zev Mukherjee MD 05/17/2024 07:34 AM EST RP Dictated By: Zev Mukherjee MD Signed By: <Electronically signed by Zev Mukherjee MD in OV> 05/17/24 0734 DD/ 0815 TD/TT: 05/15/24 0840 [employer] Control Electronics Operator: [facility] External Provider IMG XR PROCEDURES Final Result * (ABNORMAL) Glucose, Whole Blood (05/01/2024 9:11 AM EST) Glucose, Whole Blood 150(H) 60 - 115 mg/dL [facility] Comment:METER #: [id number] 5Testing performed in the Endocrinology Department [address], [address], [facility]. 05/01/2024 9:11 AM EST 05/01/2024 9:15 AM EST Generic External Data Provider LAB BLOOD ORDERAB LES Final Result [facility] [address] [place] [address] [phone] * (ABNORMAL) POCT HGB A1C (03/21/2024 9:51 AM EST) Hemoglobin A1C 8.4(A) 4.0 - 6.0 % QC Media Lot # [id number] Lot# Expiration Date [id number] Blood 03/21/2024 9:51 AM EST James Ashraf MD POINT OF CARE TEST EN TER/EDIT ORDERABLES Final Result * Lipid Panel, Standard (02/05/2024 7:55 AM EST) Triglycerides 104 <150 mg/dL [facility] Comment:Desirable Triglyceri de: less than 150 mg/dLBorderline High Triglyceride 150-199 mg/dLHigh Triglyceride: 200-499 mg/dLVery High Triglyceride: greater than or equal to 5OO mg/dL Cholesterol 123 <200 mg/dL [facility] Comment:Desirable Cholestero l: less than 200 mg/dLBorderline High Cholesterol: 200-239 mg/dLHigh Cholesterol: greater than 239 mg/dL LDL Cholesterol Calculated 62 <100 mg/dL [facility] Comment:Desirable LDL: less than 100 mg/dLNear Optimal/Above Optimal LDL: 110- 129 mg/dLBorderline High LDL: 130-159 mg/dLHigh LDL: 160-189 mg/dLVery High LDL: greater than or equal to 190 mg/dL HDL Cholesterol 41 >40 mg/dL [facility] Comment:Desirable HDL: great er than 40 mg/dL Note: This HDL assay may give artificially low results in patients with liver disease. Blood Venous blood specimen / Unknown 02/05/2024 7:55 AM EST 02/05/2024 11:17 AM EST James Ashraf MD LAB BLOOD ORDERABLES Final Result [facility] [address] [place] [phone] * Pap Smear (06/22/2023 3:20 PM EDT) 06/22/2023 3:20 PM EDT 06/27/2023 11:15 AM EDT Narrative [facility] - 07/11/2023 2:16 PM EDT ----- ------- Name: Jayne Lane ?Age/Sex: 68/F ? : 1955 Unit#: [id number] ?? Attend Dr: Opal Carranza CNM ?Re06/22/23 ?Status: DEP REF ? Location: HO.LNP ?Disch: ? ----- ------- SPEC : [id number] ? RECD: 06/27/23-1115 ? STATUS: ??SOUT ? REQ NUM: [id number] ? CYRUS: 06/22/23-1520 ? SUBM DR: Opal [...] 66, 68) ? HPV testing performed by [facility], [place], [place]. ??See reference laboratory ?? portion of the EMR for entire report. 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 Material Received ?? ThinPrep-Cervical Copies To: ?? James Trimble MD ?? [address] ?? [place] [address] ?? [phone] ?? Opal Carranza CNM ?? [address] [place] [address] [address] ?? [place] [address] ?? [phone] ----- ------- Signed (signature on file) Ev Preciado 07/11/23 1416 ? ----- ------- ? END OF REPORT ? us Generic External Data Provider LAB CYTOLOGY RAINERE MARTIN Final Result Performing Organization Address [facility]/State/ZIP Co de Phone Number [facility] [address] [place] [address] [phone] * BI Mammogram Screening Tomosynthesis Bilateral (02/22/2023 8:20 AM EST) Anatomical Region Laterality Modality Breast Bilateral Mammography 02/22/2023 8:20 AM EST Narrative 03/07/2023 9:08 PM EST ? [facility] ? [address] [facility] ?[place] [address] ? Mammography Report ? Signed ? Patient: Cappa,Jayne ?MR#: [id number] ? : 1955 ?Acct:[id number] ? Age/Sex: 67 / F ?ADM Date: 12/13/23 ? Loc: HO.MAMMO ? Attending Dr: James Trimble MD ? Ordering Physician: Loraine Yadav MD ?Results: 1Ne ?? gative ? Date of Service: 02/22/23 ?Follow Up: 1 Year From Orig ?? inal Mammogram ? Procedure(s): MM tomosynthesis screening BI ?? Accession Number(s): [id number] ? cc: James Trimble MD; Loraine Yadav [...] by Nakita Matthew MD in OV> ? 12/26/23 2104 ? DD/DT: 02/22/ 0820 ? TD/TT: ? Air Control Electronics Operator: ? Procedure Note Ofelia, Image - 03/07/2023 [facility] [address] [place], [place] [address] Mammography Report Signed Patient: Jayne LaneMR#: [id number] : 6Acct:[id number] Age/Sex: 67 / FADM Date: 02/22/23 Loc: HO.MAMMO Attending Dr: James Trimble MD Ordering Physician: Loraine Yadav MDResults: 1Ne gative Date of Service: 02/22/23Follow Up: 1 Year From Orig inal Mammogram Procedure(s): MM tomosynthesis screening BI Accession Number(s): [id number] cc: James Trimble MD; Loraine Yadav MD [...] MD in OV> 03/07/232103 DD/ 9 TD/TT: Air Control Electronics Operator: [facility] External Provider IMG BI PROCEDURES Final Result * Hm Colonoscopy (07/11/2022 3:53 PM EDT) Colonoscopy Normal Normal Comment:Tubular adenoma us Historical Provider HEALTH MAINTENANCE Final Result * HPV E6/E7 RFLX DANIAL 16 18/45 (01/17/2022 4:22 PM EST) HPV 16 RNA TNP [facility] HPV 18/45 RNA TNP [facility] HPV E6 E7 ADD TNP [facility] HPV mRNA E6/E7 rflx Not Detected Not Detected [facility] Comment: Methodology: Executive Sales Manager-Mediated Amplification This assay detects E6/E7 viral messenger RNA (mRNA) from 14 high-risk HPV types (16,18,31,33,35,39,45,51,52,56,58,59,66,68). Cervical sources are required for HPV testing. If a vaginal source from a patient who has had a total hysterectomy with removal of cervix was submitted, please contact the testing laboratory for alternative testing options. For additional information, please refer to http://education.iPeen/faq/FPG729i3 (This link if provided for information/ educational purposes only.) THIS TEST WAS PERFORMED AT: [facility] [address] [place] [address],[address] [place], [place] ??[phone] KEVEN CHAND MD 01/17/2022 4:22 PM EST Opal Carranza HISTORICAL/NON ORDERABLE LABS Fi nal Result [facility] from Last 3 Months or Most Recently Relevant to Health Maintenance Insurance [facility] [employer] OPT[employer] (HMO D-SNP) Care Teams Lightning Rod Erector Relationship Specialty Start Date End Date James Flores MD [address] [place] [phone] PCP - General Internal Medicine 02/04/14
--- OUTSIDE RECORDS SUMMARY | 2024-06-28 08:32 | XMS_ITS | Encounter Summary ---
Author Organization [employer] [facility] Address [address] [facility] 7t [place] [address] Care Team Providers Care Adjunct Mathematics Instructor Name Role Phone James Flores MD Primary Care Provide r Reason for Visit * Reason Comments Med Refill Encounter Details Date Type Department Care Team ([facility] st Contact Info) Description 03/12/2023 Refill [facility] [address] [place] [address] James Flores MD [address] [place] [address] Chronic anemia Social History Tobacco Use Types [...] Description 07/23/2024 11:00 AM EDT Office Visit [facility] [address] [place] [phone] James Flores MD [address] [place] [phone] 09/03/2024 11:15 AM EDT Office Visit [facility] [address] [place] [phone] James Flores MD [address] [place] [address] documented as of this encounter Visit Diagnoses Diagnosis Chronic anemia Unspecified anemia documented in this encounter Care Teams Adjunct Mathematics Instructor Relationship Specialty Start Date End Date James Flores MD [address] [place] [phone] PCP - General Internal Medicine 02/04/14 documented as of this encounter
--- OUTSIDE RECORDS SUMMARY | 2024-06-28 08:32 | XMS_ITS | Encounter Summary ---
Author Organization [employer] [facility] Address [address] [place] [address] 7t [place] [address] Care Team Providers Care Pleating Machine Operator Name Role Phone James Flores MD Primary Care Provide r Reason for Visit * Reason Comments Med Refill Encounter Details Date Type Department Care Team (Late Contact Info) Description 08/21/2022 Refill [facility] [address] [place] [address] James Flores MD [address] [place] [address] [phone] Social History Tobacco Use Types Packs/Day Years [...] Description 07/23/2024 11:00 AM EDT Office Visit [facility] [address] [place], [place] [phone] James Flores MD [address] [place] [address] [phone] 09/03/2024 11:15 AM EDT Office Visit [facility] [address] [address] James Flores MD [address] [place] [place] [address] documented as of this encounter Visit Diagnoses Not on filedocumented in this encounter Care Teams Pleating Machine Operator Relationship Specialty Start Date End Date James Flores MD [address] [address] PCP - General Internal Medicine 02/04/14 documented as of this encounter
--- OUTSIDE RECORDS SUMMARY | 2024-06-28 08:32 | XMS_ITS | Encounter Summary ---
Author Organization [employer] [facility] Address [address] [facility] 7t [place] [address] Care Team Providers Care Director Veterinary Name Role Phone James Flores MD Primary Care Provide r Reason for Visit * Reason Comments Med Refill Encounter Details Date Type Department Care Team (Late st Contact Info) Description 09/04/2023 Refill [facility] [address] [place] [address] Name, MD Loki [address] [place] [address] Gastroesophageal reflux disease without esophagitis Social History [...] EDT Office Visit [facility] [address] [place] [phone] James Flores MD [address] [place] [address] 09/03/2024 11:15 AM EDT Office Visit [facility] [address] [place] [phone] James Flores MD [address] [place] [phone] documented as of this encounter Visit Diagnoses Diagnosis Gastroesophageal reflux disease without esophagitis Esophageal reflux documented in this encounter Care Teams Director Veterinary Relationship Specialty Start Date End Date James Flores MD [address] [place] [phone] PCP - General Internal Medicine 02/04/14 documented as of this encounter
--- OUTSIDE RECORDS SUMMARY | 2024-06-28 08:32 | XMS_ITS ---
Author Name Mr. Arlen Márquez Address [address] [place] [address] Phone [phone] Organization [facility] Care Team Providers Care Vp Of Global Marketing Name Role Phone Micah Judge Unavailable [phone] Reason for Referral Not Available Allergies, adverse [...] 2021-11-04 No Data Available [employer] [facility] Cfrgef14K Miscellaneous TEST BLOOD SUGAR THREE OR FOUR [...] of Service Diagnosis/Co mplaint No Data Available [facility], [place] 07/12/2022 Type 2 diabetes mellitus wit h diabetic chronic kidney diseaseChronic kidney disease, stage 3bLong term (current) use of insulinMorbid (severe) obesity due to excess caloriesBody mass index (BMI) 40.0-44.9, adultOther specified health statusConstipation, unspecifiedProblems related to health literacyPrsnl hx of TIA (TIA), and cereb infrc w/o resid deficits No Data Available [facility], [facility]) 07/12/2022 No Data Available [facility], [facility]) 07/12/2022 No Data Available [facility], [facility]) 07/12/2022 No Data Available [facility], [facility]) 07/12/2022 No Data Available [facility] 07/12/2022 No Data Available [facility] 07/22/2022 Morbid (severe) obesity due to excess caloriesBody mass index (BMI) 40.0-44.9, adultType 2 diabetes mellitus with diabetic chronic kidney diseaseChronic kidney disease, stage 3bPrsnl hx of TIA (TIA), and cereb infrc w/o resid deficitsOther specified health status No Data Available [facility] 07/22/2022 Vital Signs Date of Collection Vitals 2022-07-12 11:38:39 Height - 147.32 cmWe ight - 87.09 kgBody Mass Index (BMI) - 40.13 kg/m2 Social History Sex Female History of Procedures Procedures Service Procedure code Service date Servicing provider Phone# No Data Available [id number] 2022-07-12 No Data Available No Data Available [...] le No Data Available No Data Available [id number] 2022-07-22 No Data Available No Data Available [...] modifier 95)Continue to see PCP. Follow-up with [facility] as needed for any acute [...]
--- OUTSIDE RECORDS SUMMARY | 2024-06-28 08:32 | XMS_ITS | Encounter Summary ---
Author Organization [facility] Address [address] [facility] 7t [place] [address] Care Team Providers Care Director Of Contracts Name Role Phone James Flores MD Primary Care Provide r Reason for Referral * Imaging (STAT) - Authorized Specialty Diagnoses / Procedures Referred By Contac t Referred To Contact Cardiology Diagnoses Temporal headache Procedures Vascular US temporal artery duplex bilateral Ludwin Sylvester MD [address] [place] [address] Phone: tel: fax: [address] Phone: tel: fax: Referral ID Status Reason Start Date Expiration Date Visits Requested Visits Authorized [id number] Authorized Perform Procedure 06/26/2024 06/26/2025 1 1 Reason for Visit * Reason Comments Follow-up Encounter Details Date Type Department Care Team ([facility] st Contact Info) Description 06/26/2024 10:00 AM EDT Office Visit [facility] [address] [place] [address] [phone] Ludwin Sylvester MD [address] [place] [address] [phone] Temporal headache (Primary Dx); Hypertension, unspecified type Social History Tobacco Use [...] (173 lb) 06/26/2024 10:23 AM EDT Height - - Body Mass Index 36.16 05/30/2024 9:20 AM EDT documented in this encounter Progress Notes * Ludwin Sylvester MD - 06/26/2024 10:00 AM EDT Subjective Patient ID: Jayne Lane is a 69 y.o. female. Customer Servicer: Daughter La Nena. HPI Jayne was seen in walk-in clinic on 06/19/2024 because of 3 week h/o constant bitemporal headache, posterior neck pain, and bilat knee pain. No n/v/d, fever, vision change, or photosensitivity. Tylenol helps a little. Hasn't tried ice or heat. She had been seen in [facility] emergency department on 06/08 for the same symptoms. Rapid flu, COVID, and RSV tests were negative. CBC, BMP were baseline. CT scan of the head and neck with contrast was read as: 1. unremarkable head CT , 2. patent head and neck CTA. 1.7 cm thyroid nodule was noted. Her PCP has already scheduled a thyroid ultrasound. Bilat knee x-rays was done which was read as mild degenerative changes. Impression: Headache, arthritis. Prescribed acetaminophen. At the walk-in clinic visit on 06/19, for bilateral knee pain diclofenac gel was prescribed, she was advised to avoid oral NSAIDs due to CKD. Was referred to orthopedic surgery. To further assess the headache, lab tests were ordered. RPR, Lyme disease antibodies were negative. Sed rate was elevated at 98, and CRP was elevated at 2.44. When these results were available 06/20, I prescribed prednisone 40 mg daily, and made a stat referral to rheumatology, urgent referral to ophthalmology, and urgent vascular ultrasound of bilateral temporal arteries because of possibility of giant cell arteritis. So far, she has not seen the case management specialist, sawsmith, or had the ultrasound done. I asked her to return to [facility] today to be reevaluated as today is the last day of the 40 mg dose of prednisone. She is here with her daughter La Nena, who is interpreting. Jayne had resolution of the bitemporal headache the 1-2 days after she started prednisone. Denies any vision changes. Her blood sugar was usually in the 100s but has been in the mid 200s since starting prednisone. Sheis taking Lantus 35 units at night and is on a sliding scale of Humalog, but she was unaware of thesliding scale. We called the [facility] environmental resource specialist, who said that the rheumatology and ophthalmology offices received the referrals and will contact the patient with an appointment. Patient Active Problem List Diagnosis Coronary artery disease History of CVA (cerebrovascular accident) Chronic anemia CKD stage 3 secondary to diabetes ([facility]) Cobalamin deficiency Hyperlipidemia Hypertension Mild persistent asthma Severe obesity ([facility]) Obstructive sleep apnea syndrome Type 2 diabetes mellitus with stage 3a chronic kidney disease ([facility]) Preventative health care Chronic constipation Diverticulosis of colon GERD (gastroesophageal reflux disease) Goiter Hemorrhoids Hypercalcemia Hyperkalemia Non-rheumatic aortic stenosis Osteoporosis Poor historian Tubular adenoma Vitamin D deficiency Tinea corporis Acute pain of both knees The following portions of the chart were reviewed this encounter and updated as appropriate: Review of Systems Constitutional: Negative for fever. Respiratory: Negative for shortness of breath. Cardiovascular: Negative for chest pain. Gastrointestinal: Negative for abdominal pain. Skin: Negative for rash. Neurological: Negative for headaches. Objective Physical Exam Vitals and nursing note reviewed. Constitutional: Appearance: Normal appearance. HENT: Head: Normocephalic and atraumatic. Nose: Nose normal. Eyes: Conjunctiva/sclera: Conjunctivae normal. Pupils: Pupils are equal, round, and reactive to light. Pulmonary: Effort: Pulmonary effort is normal. Skin: General: Skin is warm and dry. Neurological: Mental Status: She is alert. Gait: Gait is intact. Psychiatric: Mood and Affect: Mood and affect normal. Behavior: Behavior normal. Procedures Assessment/Plan Diagnoses and all orders for this visit: Temporal headache I tried to contact case management specialist to discuss Jayne, but was unsuccessful. Because of her symptoms, markedly sed rate, and symptomatic response to prednisone, will continue to treat for presumptive giant cell arteritis pending rheumatology and ophthalmology consults, and vascular ultrasound of bilateral temporal arteries. It appears that [facility] has not received the order for vascular US of bilat temporal arteries, which I will send stat now. Advised increasing Lantus to 40 mg nightly for blood sugars over 200, and she was given a copy of the Humalog sliding scale to adjust her dose as needed. I sent a prescription for prednisone 30 mg daily for the next week, and will call her next week to see how she is feeling, discuss ultrasound findings if she has had the test done, pending consultantappointments if they have been scheduled. Rtc for concerns. Hypertension, unspecified type From last [facility] visit: Prescribed home BP monitor. Reviewed BP parameters, given written BP log that includes BP parameters, to keep daily. Bring blood pressure log to previously scheduled PCP appointment on 07/25. Other orders - acetaminophen (Tylenol) 500 MG tablet; Take 2 tablets (1,000 mg) by mouth every 6 (six) hours if needed for moderate pain or fever for up to 25 doses. - predniSONE (Deltasone) 10 MG tablet; Take 3 tablets (30 mg) by mouth Once per day for 7 days. documented in this encounter Miscellaneous Notes * Patient Education Note - Ludwin Sylvester MD - 06/26/2024 3:05 PM EDT Images from the original note were not included. Patient Education Table of Contents Arteritis temporal (Temporal Arteritis) To view videos and all your education online visit, [email or web address] or scan this QR code with your smartphone. Access to this content will in one year. Arteritis temporal Temporal Arteritis La arteritis temporal es stephany afecci?n que hace que las arterias se inflamen. Puede presentarse en cualquier parte del cuerpo. En la mayor?a de los casos, afecta la ariadna y la susan. Tambi?n se la conoce jany arteritis de c?lulas gigantes. Esta afecci?n puede causar problemas graves, jany ceguera. El tratamiento temprano puede ayudar a evitar esos problemas. ?Cu?les son las causas? Se desconoce la causa de esta afecci?n. ?Qu?? incrementa el riesgo? Es m?s probable que tenga esta afecci?n si: Es mayor de 50?a?os. Es santiago. Es cauc?sico. Es de ascendencia danesa, suiza, finlandesa, noruega o islandesa. Tiene antecedentes familiares de la afecci?n. Tiene polimialgia reum?casandra (PMR). Esta es stephany afecci?n que causa dolor y rigidez muscular. ?Cu?les son los signos o s?ntomas? Algunas personas con esta afecci?n tienen un solo s?ntoma. Otras tienen m?s de un s?ntoma. La mayor?a de los s?ntomas se relacionan con la ariadna y la susan. Pueden incluir: Dolor de ariadna. Sienes duras, hinchadas o sensibles. Las sienes son las ?reas que est?n a ambos lados de la frente. Dolor cuando se peina o cuando apoya la ariadna al recostarse. Dolor en la sandra?bula al masticar. Dolor en la garganta o la lengua. Problemas visuales. Estos pueden incluir la p?rdida repentina de la visi?n en un paris o visi?n doble. Otros s?ntomas pueden incluir: Fiebre. Sensaci?n de cansancio (fatiga). Tos seca. Dolor en las caderas y los hombros. Dolor en los brazos cuando hace ejercicio. Depresi?n. P?rdida de peso. ?C?mo se diagnostica? Esta afecci?n se puede diagnosticar en funci?n de los s?ntomas, los antecedentes m?dicos y un examen f?sico. Tambi?n pueden hacerle pruebas. Pueden incluir: An?lisis de jc. Biopsia. Gotha es cuando se extrae stephany stanley?a porci?n de tejido para analizarla. Pruebas de diagn?stico por im?genes, jany stephany ecograf?a o stephany resonancia magn?casandra (RM). ?C?mo se trata? Esta afecci?n se puede tratar con medicamentos para: Reducir la inflamaci?n (corticoesteroides). Debilitar el sistema inmunitario (inmunosupresores). Maharaj sistema inmunitario es el sistema de defensa de maharaj cuerpo. Tratar los problemas de visi?n. Siga estas instrucciones en maharaj casa: Medicamentos Use los medicamentos de venta dioni y los recetados solamente jany se lo haya indicado el m?dico. [place] las vitaminas o los suplementos que le recomiende el m?dico. Estos pueden incluir vitamina?D ycalcio para ayudar a evitar que los huesos se debiliten. Comida y bebida Consuma alimentos que linda buenos para el coraz?n. Pueden incluir: ? Alimentos ricos en fibra, jany frutas y verduras frescas, cereales integrales y frijoles. ? Alimentos que contienen grasas saludables (grasas omega?3), jany pescado, linaza y aceite de linaza. Limite los alimentos ricos en grasa saturada y colesterol. Estos incluyen alimentos procesados y fritos, lila grasas y l?cteos enteros. Limite la cantidad de davonte (sodio) que consume. Incluya calcio y vitamina D en maharaj dieta. Entre las [place] adecuadas, se incluyen: ? Productos l?cteos con bajo contenido de grasa, jany leche, yogur y queso. ? Ciertos pescados, jany el salm?n, el at?n y las dima, frescos o enlatados. ? Productos fortificados. Gotha significa que se les puckett agregado calcio y vitamina D. Estos incluyencereales fortificados y jugos. Instrucciones generales Actividad f?beth. Consulte al m?dico cu?les son ejercicios seguros para usted. Es posible que le indiquen que marcos ejercicios que le leeanne latir m?s r?pido el coraz?n (ejercicio aer?bico). Estos pueden ayudar a controlar la presi?n arterial y prevenir la p?rdida ?sea. Est?? al d?a con todas las vacunas seg?n se lo haya indicado el m?dico. Concurra a todas las visitas de seguimiento. Los medicamentos que se usan para tratar esta afecci?npueden hacerlo m?s propenso a tener problemas jany p?rdida ?sea o diabetes. Maharaj m?dico verificar?? si hay problemas oneida tasneem visitas de seguimiento. Comun?quese con un m?dico si: Tasneem s?ntomas empeoran. Tiene signos de infecci?n. Estos pueden incluir fiebre, hinchaz?n, enrojecimiento, calor o sensibilidad. Solicite ayuda de inmediato si: Pierde la visi?n. El dolor no desaparece, incluso despu?s de sara medicamentos. Siente dolor en el pecho. Tiene dificultad para respirar. Siente adormecimiento o debilidad en un lado del adam o del cuerpo de manera repentina. Estos s?ntomas pueden indicar stephany emergencia. Solicite ayuda de inmediato. Llame al 911. No espere a nataly si los s?ntomas desaparecen. No conduzca por tasneem propios medios hasta el hospital. Esta informaci?n no tiene jany fin reemplazar el consejo del m?dico. Aseg?rese de hacerle al m?dicocualquier trevon tanner. Document Released: 2013-12-18 Document Updated: 2023-01-07 Document Reviewed: 2023-01-07 Elsevier Patient Education ? 2024 [employer] documented in this encounter Plan of Treatment Upcoming Encounters Date Type Department Care Team (Late st Contact Info) Description 07/23/2024 11:00 AM EDT Office Visit [facility] [address] [place] [address] James Flores MD [address] [place] [address] 09/03/2024 11:15 AM EDT Office Visit [facility] [address] [facility] [place] [address] James Flores MD [address] [place] [address] documented as of this encounter Visit Diagnoses Diagnosis Temporal headache- Primary Hypertension, unspecified type documented in this encounter Additional Health Concerns Assessment Noted Time PHQ-9 Depression Total Score: 0 01/30/20 24 10:37 AM EST documented as of this encounter Care Teams Director Of Contracts Relationship Specialty Start Date End Date James Flores MD [address] [place] [address] PCP - General Internal Medicine 02/04/14 documented as of this encounter
--- OUTSIDE RECORDS SUMMARY | 2024-06-28 08:32 | XMS_ITS | Encounter Summary ---
Author Organization [facility] Address [address] [facility] 7t [place] [address] Care Team Providers Care Tank House Operator Helper Name Role Phone James Flores MD Primary Care Provide r Encounter Details Date Type Department Care Team ([facility] Contact Info) Description 03/17/2022 Orders Only [facility] MED & PEDS [address] [place], [place] [phone] Jaja Hammond LPN Social History Tobacco Use [...] Upcoming Encounters Date Type Department Care Team ([facility] Contact Info) Description 07/23/2024 11:00 AM EDT Office Visit [facility] MEDICINE [address] [place], [place] [phone] James Flores MD [address] [place], [place] [phone] 09/03/2024 11:15 AM EDT Office Visit [facility] MEDICINE [address] [place] [address] James Flores MD [address] [place] [address] documented as of this encounter Visit Diagnoses Not on filedocumented in this encounter Care Teams Tank House Operator Helper Relationship Specialty Start Date End Date James Flores MD [address] [place] [phone] PCP - General Internal Medicine 02/04/14 documented as of this encounter
--- OUTSIDE RECORDS SUMMARY | 2024-06-28 08:32 | XMS_ITS | Patient Health Record ---
Author Organization [facility] Address [address] [place] [address] Care Team Providers Care Precision Printing Worker Name Role Phone Rudy Ashraf MD, James Primary Care Provide r Unavailable Moris Duron Jr Unavailable Reason For Referral No Information Plan Of Treatment No Information Insurance Providers Payer Name Payer Address Payer Phone Subscriber Number Group Number Insured Name Patient Relationship to Insured Coverage Start Date Coverage End Date MEDICARE OF [place] [address] [place] [id number] STEPHANI JOE Self - patient is the insured MEDICAID OF [facility] [address] [place] [address] [id number] STEPHANI JOE Self - patient is the insured
--- OUTSIDE RECORDS SUMMARY | 2024-06-28 08:32 | XMS_ITS | Encounter Summary ---
Author Organization [employer] Address [address] 7t [place] [address] Care Team Providers Care Casino Shift Manager Name Role Phone Jmaes Flores MD Primary Care Provide r Encounter Details Date Type Department Care Team (Late st Contact Info) Description 01/09/2023 Orders Only [facility] MED & PEDS [address] [place] [address] Jaja Hammond LPN Social History Tobacco Use [...] Description 07/23/2024 11:00 AM EDT Office Visit [facility] [address] [place] [phone] James Flores MD [address] [place] [phone] 09/03/2024 11:15 AM EDT Office Visit [facility] MEDICINE [address] [place] [address] James Flores MD [address] [place] [phone] documented as of this encounter Visit Diagnoses Not on filedocumented in this encounter Care Teams Casino Shift Manager Relationship Specialty Start Date End Date James Flores MD [address] [place] [phone] PCP - General Internal Medicine 02/04/14 documented as of this encounter
--- OUTSIDE RECORDS SUMMARY | 2024-06-28 08:32 | XMS_ITS | Encounter Summary ---
Author Organization [facility] Address [address] [facility] 7t [place] [address] Care Team Providers Care Program Project Manager Name Role Phone James Flores MD Primary Care Provide r Reason for Visit * Reason Onset Date Comments Durable Medical Equipment 09/27/2023 Encounter Details Date Type Department Care Team (Late st Contact Info) Description 09/27/2023 Telephone [facility] MEDICINE [address] [place] [address] James Flores MD [address] [place], [place] [phone] Durable Medical Equipment Social History Tobacco Use [...] 1 flip pillow DME Please contact at [phone] * Telephone Encounter - Fernando Christie - 09/27/2023 2:40 PM EDT Tc from pt 10 in 1 flip pillow due to issues sleeping. Pt would like script to be faxed to [facility]. If any questions you can contact pt at [phone]. documented in this encounter Plan of Treatment Upcoming Encounters Date Type Department Care Team ([facility] st Contact Info) Description 07/23/2024 11:00 AM EDT Office Visit [facility] MEDICINE [address] [place] [phone] James Flores MD [address] [place] [phone] 09/03/2024 11:15 AM EDT Office Visit [facility]INE [address] [place] [phone] James Flores MD [address] [place] [phone] documented as of this encounter Visit Diagnoses Not on filedocumented in this encounter Care Teams Program Project Manager Relationship Specialty Start Date End Date James Flores MD [address] [place] [address] PCP - General Internal Medicine 02/04/14 documented as of this encounter
--- OUTSIDE RECORDS SUMMARY | 2024-06-28 08:32 | XMS_ITS | Encounter Summary ---
Author Organization [facility] Address [address] [facility] 7t [place] [address] Care Team Providers Care Nail Feeder Name Role Phone James Flores MD Primary Care Provide r Reason for Visit * Reason Comments Med Refill Encounter Details Date Type Department Care Team (Late st Contact Info) Description 05/10/2024 Refill [facility] [address] [place] [address] Coco Montiel NP [address] [place] [address] Mild intermittent asthma without complication Social History [...] Description 07/23/2024 11:00 AM EDT Office Visit [facility] [address] [place] [phone] James Flores MD [address] [place] [phone] 09/03/2024 11:15 AM EDT Office Visit [facility] [address] [place] [phone] James Flores MD [address] [place] [phone] documented as of this encounter Visit Diagnoses Diagnosis Mild intermittent asthma without complication documented in this encounter Additional Health Concerns Assessment Noted Time PHQ-9 Depression Total Score: 0 01/30/20 24 10:37 AM EST documented as of this encounter Care Teams Nail Feeder Relationship Specialty Start Date End Date James Flores MD [address] [place] [phone] PCP - General Internal Medicine 02/04/14 documented as of this encounter
--- OUTSIDE RECORDS SUMMARY | 2024-06-28 08:33 | XMS_ITS | Encounter Summary ---
Author Organization [facility] Address [address] [facility] 7t [place] [address] Care Team Providers Care Block Mechanic Name Role Phone James Flores MD Primary Care Provide r Encounter Details Date Type Department Care Team ([facility] Contact Info) Description 02/21/2022 Abstract [facility] MEDICINE [address] [place] [phone] James Flores MD [address] [place] [phone] Social History Tobacco Use Types Packs/Day Years [...] Description 07/23/2024 11:00 AM EDT Office Visit [facility] [address] [place] [address] [phone] James Flores MD [address] [place] [address] 09/03/2024 11:15 AM EDT Office Visit [facility] MEDICINE [address] [place] [phone] James Flores MD [address] [facility] [place] [phone] documented as of this encounter Procedures Procedure [...] on filedocumented in this encounter Care Teams Block Mechanic Relationship Specialty Start Date End Date James Flores MD [facility] [place], [place] [phone] PCP - General Internal Medicine 02/04/14 documented as of this encounter
--- OUTSIDE RECORDS SUMMARY | 2024-06-28 08:33 | XMS_ITS | Clinical Summary ---
Author Organization [facility] Address [address] [place] [address] Phone Care Team Providers Care Liquid Chlorine Operator Name Role Phone James Grant MD [...] Comments Breast Cancer Screening 1955 Pneumococcal Vaccine: 50+ Years (1 of 2 - PCV) 05/18/1974 Colorectal Cancer Screening: Annual FOBT 05/18/2004 Colorectal [...] patient's age to complete this topic Insurance [employer] [place] [id number] [employer] Care Teams Liquid Chlorine Operator Relationship Specialty Start Date End Date James Grant MD PCP - General 03/23/20
--- OUTSIDE RECORDS SUMMARY | 2024-06-28 08:33 | XMS_ITS | Encounter Summary ---
Author Organization [facility] Address [address] [facility] 7t [place] [address] Care Team Providers Care Tankman Name Role Phone James Flores MD Primary Care Provide r Encounter Details Date Type Department Care Team (Late Contact Info) Description 04/13/2022 Orders Only [facility] MEDICINE [address] [place] [address] [phone] April Olsen LPN Social History Tobacco Use [...] Description 07/23/2024 11:00 AM EDT Office Visit [facility] [address] [place], [place] [phone] James Flores MD [address] [place], [place] [phone] 09/03/2024 11:15 AM EDT Office Visit [facility] [address] [place] [address] James Flores MD [address] [place] [address] documented as of this encounter Visit Diagnoses Not on filedocumented in this encounter Care Teams Tankman Relationship Specialty Start Date End Date James Flores MD [address] [place] [phone] PCP - General Internal Medicine 02/04/14 documented as of this encounter
--- OUTSIDE RECORDS SUMMARY | 2024-06-28 08:33 | XMS_ITS | Encounter Summary ---
Author Organization [employer] [facility] Address [address] [facility] 7t [place] [address] Care Team Providers Care Signal Tower Director Name Role Phone James Flores MD Primary Care Provide r Encounter Details Date Type Department Care Team (Late st Contact Info) Description 05/11/2022 Telephone [facility] [address] [place] [address] [phone] James Flores MD [address] [place] [address] [phone] Social History Tobacco Use Types Packs/Day Years [...] Description 07/23/2024 11:00 AM EDT Office Visit [facility] [address] [place] [address] [phone] James Flores MD [address] [place] [address] [phone] 09/03/2024 11:15 AM EDT Office Visit [facility] [address] [place] [address], [place] [address] James Flores MD [address] [place] [address] documented as of this encounter Visit Diagnoses Not on filedocumented in this encounter Care Teams Signal Tower Director Relationship Specialty Start Date End Date James Flores MD [address] [facility] [place] [address] PCP - General Internal Medicine 02/04/14 documented as of this encounter
--- OUTSIDE RECORDS SUMMARY | 2024-06-28 08:33 | XMS_ITS | Encounter Summary ---
Author Organization [facility] Address [address] [place] [address] Phone Care Team Providers Care Cutter Head Sharpener Name Role Phone James Grant MD Primary Care Provider Unav ailable Reason for Visit * Reason Comments Med Refill Encounter Details Date Type Department Care Team (Late st Contact Info) Description 12/14/2022 Refill [facility] [address] [place] [address] Osmany Leung MD Social History [...] on filedocumented in this encounter Care Teams Cutter Head Sharpener Relationship Specialty Start Date End Date James Grant MD PCP - General 03/23/20 documented as of this encounter
== END 2024-06-28 08:12 | disposition home or self-care (01) ==
LOC: HO.US 08:11
PROVIDERS: PCP Internal Medicine; Visit Provider Emergency Medicine
DX: R51.9 Headache, unspecified (principal); M31.6 Other giant cell arteritis
CPT/HCPCS: 93975

== ENCOUNTER → 2024-06-28 08:27 | Outpatient (BNV) | payer OTHER, SELFPAY | PROVIDERS: PCP Internal Medicine; Visit Provider Specialist | DX: I77.9 Disorder of arteries and arterioles, unspecified (principal) | CPT/HCPCS: 93975 ==

== ENCOUNTER 2024-07-11 12:49 | Outpatient (REF) | payer OTHER, SELFPAY ==
--- NOTE | ~2024-07-11 | US_ITS ---
EXAMINATION: US THYROID HISTORY: 1.7 cm thyroid nodule US TECHNIQUE: Real-time grayscale ultrasound imaging was performed and images were reviewed. COMPARISON: Comparison is made with the prior examination dated 10/26/2022. FINDINGS: SIZE: The right thyroid lobe measures 3.9 x 1.5 x 1.4 cm. The left thyroid lobe measures 3.9 x 1.4 x 1.5 cm. The isthmus measures 4 mm. FLOW: Flow to the gland is normal. ECHOGENICITY: The echotexture of the gland is homogeneous. NODULES: Again seen is a 3 mm cystic nodule at the lower pole of the right thyroid lobe. US/US thyroid IMPRESSION: Stable 3 mm cystic nodule at the lower pole of the right thyroid lobe. This represents a TR1 nodule and no follow-up is required. Otherwise unremarkable thyroid ultrasound. ACR TI-RADS Guidelines TR1 (0 points): Benign, No follow-up or biopsy required TR2 (2 points): Not Suspicious, No biopsy or follow up indicated TR3 (3 points): Mildly Suspicious, FNA if >= 2.5 cm, Follow if >= 1.5 cm TR4 (4-6 points): Moderately Suspicious, FNA if >= 1.5 cm, Follow if >= 1.0 cm TR5 (>=7 points): Highly Suspicious, FNA if >= 1.0 cm, Follow if >= 0.5 cm Electronically signed by: Zev Mukherjee MD 07/12/2024 07:10 AM EDT
--- OUTSIDE RECORDS SUMMARY | 2024-07-11 15:24 | XMS_ITS ---
Author Name Mr. Arlen Márquez Address [address] [place] [address] Phone [phone] [facility] Care Team Providers Care Public Health Epidemiologist Name Role Phone Micah Judge Unavailable [phone] Reason for Referral Not Available Allergies, adverse [...] 2021-11-04 No Data Available OneTouch Delica Plus [id number] Miscellaneous TEST BLOOD SUGAR THREE OR FOUR [...] Diagnosis/Co mplaint No Data Available [facility], ([place]) 07/12/2022 Type 2 diabetes mellitus wit h diabetic chronic kidney diseaseChronic kidney disease, stage 3bLong term (current) use of insulinMorbid (severe) obesity due to excess caloriesBody mass index (BMI) 40.0-44.9, adultOther specified health statusConstipation, unspecifiedProblems related to health literacyPrsnl hx of TIA (TIA), and cereb infrc w/o resid deficits No Data Available [facility], [facility]) 07/12/2022 No Data Available [facility], [facility]) 07/12/2022 No Data Available [facility], [facility]) 07/12/2022 No Data Available [facility], [facility]) 07/12/2022 No Data Available [facility] 07/12/2022 No Data Available [facility] 07/[place]/2022 Morbid (severe) obesity due to excess caloriesBody mass index (BMI) 40.0-44.9, adultType 2 diabetes mellitus with diabetic chronic kidney diseaseChronic kidney disease, stage 3bPrsnl hx of TIA (TIA), and cereb infrc w/o resid deficitsOther specified health status No Data Available [facility] 07/22/2022 Vital Signs Date of Collection Vitals 2022-07-12 11:38:39 Height - 147.32 cmWe ight - 87.09 kgBody Mass Index (BMI) - 40.13 kg/m2 Social History Sex Female History of Procedures Procedures Service Procedure code Service date Servicing provider Phone# No Data Available [id number] 2022-07-12 No Data Available No Data Available [...] le No Data Available No Data Available [id number] 2022-07-22 No Data Available No Data Available [...] modifier 95)Continue to see PCP. Follow-up with [facility] as needed for any acute or [...]
== END 2024-07-11 12:50 | disposition home or self-care (01) ==
LOC: HO.US 12:49
PROVIDERS: Visit Provider Internal Medicine
DX: E04.1 Nontoxic single thyroid nodule (principal)
CPT/HCPCS: 76536

== ENCOUNTER → 2024-07-11 12:51 | Outpatient (BNV) | payer OTHER, SELFPAY | PROVIDERS: Visit Provider Radiology Diagnostic Radiology | DX: E04.1 Nontoxic single thyroid nodule (principal) | CPT/HCPCS: 76536 ==

== ENCOUNTER 2024-07-24 14:50 | Outpatient (REF) | payer OTHER, SELFPAY ==
--- NOTE | ~2024-07-24 | XR_ITS ---
EXAMINATION: XR KNEE 3 VIEWS RIGHT HISTORY: right knee pain/effusion COMPARISON: Comparison is made with the prior examination dated 06/08/2024. FINDINGS: Five views of the right knee are submitted. Osseous mineralization is normal. Again seen is an exostosis of the distal lateral femoral metaphysis. There is no fracture or dislocation. There is moderate degenerative change of the lateral compartment with joint space narrowing and osteophyte formation. There are vascular calcifications. There is a small joint effusion. XR/XR knee RT 3V IMPRESSION: Small joint effusion. Moderate degenerative change of the lateral. Electronically signed by: Zev Mukherjee MD 07/24/2024 03:32 PM EDT
--- OUTSIDE RECORDS SUMMARY | 2024-07-24 14:53 | XMS_ITS ---
Author Name Mr. Arlen Márquez Address [address] [place] [address] Phone [phone] [facility] Care Team Providers Care Teleservices Representative Name Role Phone Micah Judge Unavailable [phone] Reason for Referral Not Available Allergies, adverse [...] 2021-11-04 No Data Available OneTouch Delica Plus [id number] Miscellaneous TEST BLOOD SUGAR THREE OR FOUR [...] of Service Diagnosis/Co mplaint No Data Available [facility], ([place]) 07/12/2022 Type 2 diabetes mellitus wit h diabetic chronic kidney diseaseChronic kidney disease, stage 3bLong term (current) use of insulinMorbid (severe) obesity due to excess caloriesBody mass index (BMI) 40.0-44.9, adultOther specified health statusConstipation, unspecifiedProblems related to health literacyPrsnl hx of TIA (TIA), and cereb infrc w/o resid deficits No Data Available [facility], [facility]) 07/12/2022 No Data Available [facility], [facility]) 07/12/2022 No Data Available [facility], [facility]) 07/12/2022 No Data Available [facility], [facility]) 07/12/2022 No Data Available [facility] 07/12/2022 No Data Available [facility] 07/22/2022 Morbid (severe) obesity due to excess caloriesBody mass index (BMI) 40.0-44.9, adultType 2 diabetes mellitus with diabetic chronic kidney diseaseChronic kidney disease, stage 3bPrsnl hx of TIA (TIA), and cereb infrc w/o resid deficitsOther specified health status No Data Available [facility], ([place]) 07/22/2022 Vital Signs Date of Collection Vitals 2022-07-12 11:38:39 Height - 147.32 cmWe ight - 87.09 kgBody Mass Index (BMI) - 40.13 kg/m2 Social History Sex Female History of Procedures Procedures Service Procedure code Service date Servicing provider Phone# No Data Available [id number] 2022-07-12 No Data Available No Data Available [...] le No Data Available No Data Available [id number] 2022-07-22 No Data Available No Data Available [...] modifier 95)Continue to see PCP. Follow-up with [facility] as needed for any acute or [...]
--- OUTSIDE RECORDS SUMMARY | 2024-07-24 14:53 | XMS_ITS | Clinical Summary ---
Author Organization [facility] Address [address] [place] [address] Phone Care Team Providers Care Jewel Hole Gauger Name Role Phone James Grant MD Primary [...] complete this topic Insurance [employer] [place] [id number] [employer] Care Teams Jewel Hole Gauger Relationship Specialty Start Date End Date James Grant MD PCP - General 03/23/20
--- OUTSIDE RECORDS SUMMARY | 2024-07-24 14:53 | XMS_ITS | Patient Health Record ---
Author Organization [facility] Address [address] [place] [address] Care Team Providers Care Clinical Lab Scientist Name Role Phone Rudy Ashraf MD, James Primary Care Provide r Unavailable Moris Duron Jr Unavailable [phone] Reason For Referral No Information Plan Of Treatment No Information Insurance Providers Payer Name Payer Address Payer Phone Subscriber Number Group Number Insured Name Patient Relationship to Insured Coverage Start Date Coverage End Date MEDICARE OF [place] [address] [place] [id number] STEPHANI JOE Self - patient is the insured MEDICAID OF [facility] [address] [place] [address] [id number] STEPHANI JOE Self - patient is the insured
--- OUTSIDE RECORDS SUMMARY | 2024-07-24 14:53 | XMS_ITS | Encounter Summary ---
Author Organization [facility] Address [address] [place] [address] Phone Care Team Providers Care Syrup Mixer Assistant Name Role Phone James Grant MD Primary Care Provider Unav ailable Reason for Visit * Reason Comments Med Refill Encounter Details Date Type Department Care Team (Late st Contact Info) Description 12/14/2022 Refill [facility] [address] [place] [address] Osmany Leung MD Social History [...] on filedocumented in this encounter Care Teams Syrup Mixer Assistant Relationship Specialty Start Date End Date James Grant MD PCP - General 03/23/20 documented as of this encounter
== END 2024-07-24 14:51 | disposition home or self-care (01) ==
LOC: HO.HHCX 14:50
PROVIDERS: Visit Provider Internal Medicine
DX: M25.561 Pain in right knee (principal)
CPT/HCPCS: 73562

== ENCOUNTER → 2024-07-24 14:51 | Outpatient (BNV) | payer OTHER, SELFPAY | PROVIDERS: Visit Provider Radiology Diagnostic Radiology | DX: M25.561 Pain in right knee (principal) | CPT/HCPCS: 73562 ==

== ENCOUNTER 2024-07-25 07:51 | Emergency (ER) | payer OTHER, SELFPAY ==
--- NOTE | ~2024-07-25 | XR_ITS ---
EXAMINATION: XR KNEE, RIGHT CLINICAL INFORMATION: trauma COMPARISON: Prior day. TECHNIQUE: Four views of the right knee. FINDINGS: No fracture, dislocation, or suspicious bone lesion. There is normal alignment. There is mild to moderate medial compartment degenerative arthrosis, with mild marginal osteophytic spurs. There is chondrocalcinosis in the medial and lateral compartments. There is spurring of the tibial spines. There is no evidence of significant joint effusion. Soft tissues appear normal aside from vascular calcifications. XR/XR knee RT 3V IMPRESSION: 1. No acute bony abnormalities right knee. No joint effusion. 2. Chondrocalcinosis 3. degenerative changes medial compartment. Electronically signed by: Terry Ray MD 07/25/2024 09:46 AM EDT
--- NOTE | ~2024-07-25 | XR_ITS ---
EXAMINATION: XR FEMUR, RIGHT CLINICAL INFORMATION: trauma COMPARISON: None available. TECHNIQUE: AP and lateral views of the right femur were obtained. FINDINGS: No fracture, dislocation, or suspicious bone lesion. Mild to moderate degenerative changes right hip joint. Degenerative changes medial compartment right knee joint. Soft tissues normal aside from vascular calcifications. XR/XR femur RT 2V IMPRESSION: No acute bony abnormalities right femur. Electronically signed by: Terry Ray MD 07/25/2024 09:54 AM EDT
[2024-07-25 08:03] VITALS: BP 137/54; BP 192/90; PULSE 78; PULSE 80; RESP 16; TEMP 36.6; O2SAT 97; O2SAT 98; BMI 32.3
--- OUTSIDE RECORDS SUMMARY | 2024-07-25 08:31 | XMS_ITS | Encounter Summary ---
Author Organization [employer] Address [address] [facility] 7t [place] [address] Care Team Providers Care Histopathology Technician Name Role Phone James Flores MD Primary Care Provide r Encounter Details Date Type Department Care Team (Late st Contact Info) Description 08/22/2022 Orders Only [facility] CHC MED & PEDS [address] [place] [address] Jaja Hammond LPN Social History Tobacco Use [...] Care Team (Late st Contact Info) Description 07/26/2024 9:30 AM EDT Clinical Support [facility] MEDICINE [address] [place] [address] [phone] 09/03/2024 11:15 AM EDT Office Visit [facility]INE [address] [place] [address] [phone] James Flores MD [address] [place] [phone] documented as of this encounter Visit Diagnoses Not on filedocumented in this encounter Care Teams Histopathology Technician Relationship Specialty Start Date End Date James Flores MD [address] [place] [address] PCP - General Internal Medicine 02/04/14 documented as of this encounter
--- OUTSIDE RECORDS SUMMARY | 2024-07-25 08:31 | XMS_ITS | Encounter Summary ---
Author Organization [employer] Address [address] [facility] 7t [place] [address] Care Team Providers Care Operations Architect Name Role Phone James Flores MD Primary Care Provide r Reason for Visit * Reason Comments Med Refill Encounter Details Date Type Department Care Team ([facility] st Contact Info) Description 03/12/2023 Refill [facility] [address] [place] [address] James Flores MD [address] [place] [address] Chronic anemia Social History Tobacco Use Types [...] t he electric, gas, oil or water [employer] threatened to shut off services in your [...] Description 07/26/2024 9:30 AM EDT Clinical Support [facility] [address] [place] [phone] 09/03/2024 11:15 AM EDT Office Visit [facility] [address] [place] [phone] James Flores MD [address] [place] [phone] documented as of this encounter Visit Diagnoses Diagnosis Chronic anemia Unspecified anemia documented in this encounter Care Teams Operations Architect Relationship Specialty Start Date End Date James Flores MD [address] [place] [address] PCP - General Internal Medicine 02/04/14 documented as of this encounter
--- OUTSIDE RECORDS SUMMARY | 2024-07-25 08:31 | XMS_ITS | Encounter Summary ---
Author Organization [employer] Address [address] [facility] 7t [place] [address] Care Team Providers Care Card Setter Name Role Phone James Flores MD Primary Care Provide r Reason for Visit * Reason Comments Med Refill Encounter Details Date Type Department Care Team (Late st Contact Info) Description 08/21/2022 Refill [facility] [address] [place] [phone] James Flores MD [address] [place] [address] Social History Tobacco Use Types Packs/Day Years [...] Description 07/26/2024 9:30 AM EDT Clinical Support [facility] [address] [place] [address] [phone] 09/03/2024 11:15 AM EDT Office Visit [facility] [address] [place] [address] [phone] James Flores MD [address] [place] [address] documented as of this encounter Visit Diagnoses Not on filedocumented in this encounter Care Teams Card Setter Relationship Specialty Start Date End Date James Flores MD [address] [place] [address] PCP - General Internal Medicine 02/04/14 documented as of this encounter
--- OUTSIDE RECORDS SUMMARY | 2024-07-25 08:31 | XMS_ITS | Patient Health Record ---
Author Organization [facility] Address [address] [place] [address] Care Team Providers Care Php Architect Name Role Phone Rudy Ashraf MD, James Primary Care Provide r Unavailable Moris Duron Jr Unavailable Reason For Referral No Information Plan Of Treatment No Information Insurance Providers Payer Name Payer Address Payer Phone Subscriber Number Group Number Insured Name Patient Relationship to Insured Coverage Start Date Coverage End Date MEDICARE OF [place] [address] [place] [id number] STEPHANI JOE Self - patient is the insured MEDICAID OF [facility] [address] [place] [address] [id number] STEPHANI JOE Self - patient is the insured
--- OUTSIDE RECORDS SUMMARY | 2024-07-25 08:31 | XMS_ITS | Encounter Summary ---
Author Organization [employer] Address [address] 7t [place] [address] Care Team Providers Care Direct Support Staff Name Role Phone James Flores MD Primary Care Provide r Encounter Details Date Type Department Care Team ([facility] st Contact Info) Description 01/09/2023 Orders Only [facility] CHC MED & PEDS [address] [place] [address] Jaja Hammond LPN Social History Tobacco Use [...] Description 07/26/2024 9:30 AM EDT Clinical Support [facility] MEDICINE [address] [place] [phone] 09/03/2024 11:15 AM EDT Office Visit [facility] MEDICINE [address] [place] [phone] James Flores MD [address] [place] [phone] documented as of this encounter Visit Diagnoses Not on filedocumented in this encounter Care Teams Direct Support Staff Relationship Specialty Start Date End Date James Flores MD [address] [place] [address] PCP - General Internal Medicine 02/04/14 documented as of this encounter
--- OUTSIDE RECORDS SUMMARY | 2024-07-25 08:31 | XMS_ITS | Encounter Summary ---
Author Organization [employer] Address [address] [facility] 7t [place] [address] Care Team Providers Care Tire Buster Name Role Phone James Flores MD Primary Care Provide r Encounter Details Date Type Department Care Team ([facility] st Contact Info) Description 03/14/2023 Telephone [employer] [facility] [address] [place] [address] Adriana Odell MA Social History Tobacco Use [...] Description 07/26/2024 9:30 AM EDT Clinical Support [facility]INE [address] [place] [phone] 09/03/2024 11:15 AM EDT Office Visit [facility] [address] [place] [phone] James Flores MD [address] [place] [address] documented as of this encounter Visit Diagnoses Not on filedocumented in this encounter Care Teams Tire Buster Relationship Specialty Start Date End Date James Flores MD [address] [place] [address] PCP - General Internal Medicine 02/04/14 documented as of this encounter
--- OUTSIDE RECORDS SUMMARY | 2024-07-25 08:31 | XMS_ITS | Encounter Summary ---
Author Organization [employer] Address [address] [facility] 7t [place] [address] Care Team Providers Care Grain Cleaner Name Role Phone James Flores MD Primary Care Provide r Encounter Details Date Type Department Care Team (Late st Contact Info) Description 06/14/2022 Orders Only [facility] CHC MED & PEDS [address] [place] [address] Jaja Hammond LPN Social History Tobacco Use [...] Description 07/26/2024 9:30 AM EDT Clinical Support [facility] MEDICINE [address] [place] [address] [phone] 09/03/2024 11:15 AM EDT Office Visit [facility] MEDICINE [address] [place] [address] [phone] James Flores MD [address] [place] [address] documented as of this encounter Visit Diagnoses Not on filedocumented in this encounter Care Teams Grain Cleaner Relationship Specialty Start Date End Date James Flores MD [address] [place] [address] PCP - General Internal Medicine 02/04/14 documented as of this encounter
--- OUTSIDE RECORDS SUMMARY | 2024-07-25 08:32 | XMS_ITS | Encounter Summary ---
Author Organization [employer] Address [address] [facility] 7t [place] [address] Care Team Providers Care Photography Editor Name Role Phone James Flores MD Primary Care Provide r Encounter Details Date Type Department Care Team (Late st Contact Info) Description 04/13/[address] [facility] MEDICINE [address] [place] [phone] April Olsen LPN Social History Tobacco Use [...] Description 07/26/2024 9:30 AM EDT Clinical Support [address] [phone] 09/03/2024 11:15 AM EDT Office Visit [address] [phone] James Flores MD [address] [place] [address] documented as of this encounter Visit Diagnoses Not on filedocumented in this encounter Care Teams Photography Editor Relationship Specialty Start Date End Date James Flores MD [address] [place] [address] PCP - General Internal Medicine 02/04/14 documented as of this encounter
--- OUTSIDE RECORDS SUMMARY | 2024-07-25 08:32 | XMS_ITS ---
Author Name Mr. Arlen Márquez Address [address] [place] [address] Phone [phone] [facility] Care Team Providers Care Nougat Candy Maker Helper Name Role Phone Micah Judge Unavailable [phone] Reason for Referral Not Available Allergies, adverse [...] 2021-11-04 No Data Available OneTouch Delica Plus [id number] Miscellaneous TEST BLOOD SUGAR THREE OR FOUR [...] of Service Diagnosis/Co mplaint No Data Available [facility], ([place]) 07/12/2022 Type 2 diabetes mellitus wit h diabetic chronic kidney diseaseChronic kidney disease, stage 3bLong term (current) use of insulinMorbid (severe) obesity due to excess caloriesBody mass index (BMI) 40.0-44.9, adultOther specified health statusConstipation, unspecifiedProblems related to health literacyPrsnl hx of TIA (TIA), and cereb infrc w/o resid deficits No Data Available [facility], [facility]) 07/12/2022 No Data Available [facility], [facility]) 07/12/2022 No Data Available [facility], [facility]) 07/12/2022 No Data Available [facility], [facility]) 07/12/2022 No Data Available [facility] [place] 07/12/2022 No Data Available [facility] [place] 07/22/2022 Morbid (severe) obesity due to excess caloriesBody mass index (BMI) 40.0-44.9, adultType 2 diabetes mellitus with diabetic chronic kidney diseaseChronic kidney disease, stage 3bPrsnl hx of TIA (TIA), and cereb infrc w/o resid deficitsOther specified health status No Data Available [facility], ([place]) 07/22/2022 Vital Signs Date of Collection Vitals 2022-07-12 11:38:39 Height - 147.32 cmWe ight - 87.09 kgBody Mass Index (BMI) - 40.13 kg/m2 Social History Sex Female History of Procedures Procedures Service Procedure code Service date Servicing provider Phone# No Data Available [id number] 2022-07-12 No Data Available No Data Available [...] le No Data Available No Data Available [id number] 2022-07-22 No Data Available No Data Available [...] modifier 95)Continue to see PCP. Follow-up with [facility] as needed for any acute or disease [...]
--- OUTSIDE RECORDS SUMMARY | 2024-07-25 08:32 | XMS_ITS | Clinical Summary ---
Author Organization [facility] Address [address] [place] [address] Phone Care Team Providers Care Product Marketing Director Name Role Phone James Grant MD Primary [...] complete this topic Insurance [employer] [place] [id number] [employer] Care Teams Product Marketing Director Relationship Specialty Start Date End Date James Grant MD PCP - General 03/23/20
--- OUTSIDE RECORDS SUMMARY | 2024-07-25 08:32 | XMS_ITS | Encounter Summary ---
Author Organization [employer] Address [address] 7[address] [place] [address] Care Team Providers Care Background Check Coordinator Name Role Phone James Flores MD Primary Care Provide r Encounter Details Date Type Department Care Team (Latest Contact Info) Description 07/23/2024 Travel Social History Tobacco Use Types Packs/Day [...] 07/26/2024 9:30 AM EDT Clinical Support [facility] MEDICINE [address] [place] [phone] 09/03/2024 11:15 AM EDT Office Visit [facility] [address] [place] [phone] James Flores MD [address] [place] [address] documented as of this encounter Visit Diagnoses Not on filedocumented in this encounter Additional Health Concerns Assessment Noted Time PHQ-9 Depression Total Score: 0 01/30/20 10:37 AM EST documented as of this encounter Care Teams Background Check Coordinator Relationship Specialty Start Date End Date James Flores MD [address] [place] [address] PCP - General Internal Medicine 02/04/14 documented as of this encounter
--- OUTSIDE RECORDS SUMMARY | 2024-07-25 08:32 | XMS_ITS | Encounter Summary ---
Author Organization [employer] Address [address] [place] [address] Care Team Providers Care Family And Marriage Counsellor Name Role Phone James Flores MD Primary Care Provide r Encounter Details Date Type Department Care Team ([facility] st Contact Info) Description 01/11/2024 Telephone [facility] [address] [place], [place] [phone] James Flores MD [address] [place], [place] [phone] Social History Tobacco Use Types Packs/Day Years [...] Clinical Support [facility] [address] [place] [phone] 09/03/2024 11:15 AM EDT Office Visit [facility] [address] [place] [phone] James Flores MD [address] [place] [phone] documented as of this encounter Visit Diagnoses Not on filedocumented in this encounter Care Teams Family And Marriage Counsellor Relationship Specialty Start Date End Date James Flores MD [address] [place] [address] PCP - General Internal Medicine 02/04/14 documented as of this encounter
--- OUTSIDE RECORDS SUMMARY | 2024-07-25 08:32 | XMS_ITS | Clinical Summary ---
Author Organization [employer] Address [address] [facility] [facility] [address] [place] [address] Care Team Providers Care Director Of Public Works Name Role Phone James Flores MD Primary [...] Active OneTouch Verio test strip USE DIRECTED Active ezetimibe (Zetia) 10 MG tablet Take 10 mg by mouth in the morning. Active docusate sodium (Colace) 100 MG capsule TAKE 2 CAPSULES BY MOUTH EVERY DAY AT BEDTIME Active Vitamin D High Potency 25 MCG (1000 UT) capsule Take 25 mcg by mouth in the morning. 023 Active Calcium Citrate-Vitamin D ([place] Calcium/Vitamin D) 200-6.25 MG-MCG tablet TAKE 2 TABLETS BY MOUTH TWICE DAILY IN THE MORNING AND EVENING Active clopidogrel (Plavix) 75 MG tablet TAKE 1 TABLET BY MOUTH EVERY EVENING 90 tablet 3 Active Alcohol Swabs (Alcohol Prep) 70 % pads USE DIRECTED 100 each 11 Active polycarbophil (Fiber-Lax) 625 MG tablet Take [...] CHANGE EVERY 14 DAYS Active Continuous Glucose Marketing Admin (FreeStyle [place] 3 [place]) device USE DIRECTED Active bisacodyl (Dulcolax) 10 [...] complication, with long-term current use of insulin ([facility]) INJECT 35 UNITS SUBCUTANEOUSLY ONCE DAILY 15 mL 2 024 Active nystatin (Mycostatin) 838435 UNIT/GM powderIndication s:Tinea corporis Apply topically 2 [...] AND IN THE EVENING 90 tablet 1 Active Diclofenac Sodium 1 % gel Apply 4 g topically if needed in the morning, at noon, in the evening, and at bedtime (pain). 100 g 025 Active senna (Senokot) 8.6 MG tablet Take 1 tablet (8.6 mg) by mouth if needed at bedtime for constipation. 120 tablet Active Blood Pressure kit 1 each 2 times daily. 1 kit 025 2025 Active hydrOXYzine HCl (Atarax) 25 MG tabletIndication s:Anxiety Take 0.5 tablets (12.5 mg) by mouth every 8 (eight) hours if needed for anxiety. May take 1/2 to 1 tablet every 8 hours prn 30 tablet Active amLODIPine (Norvasc) 5 MG tablet TAKE 1 TABLET BY MOUTH EVERY EVENING 30 tablet 5 025 Active loratadine (Claritin) 10 MG tabletIndication s:Seasonal allergies TAKE 1 TABLET BY MOUTH EVERY MORNING 30 tablet 5 Active BD Pen Needle Nneka U/F 32G X 4 MM miscIndications: Type 2 diabetes mellitus without complication, with long-term current use of insulin ([facility]) USE DIRECTED FOUR TIMES DAILY 100 each 6 025 Active carbamide peroxide (Debrox) 6.5 % otic solution Administer 5 drops into each ear 2 times daily for 4 days. 15 mL 025 2024 Active HumaLOG KWIKPEN 100 UNIT/ML injectionIndicat ions:Type 2 diabetes mellitus without complication, with long-term current use of insulin ([facility]) INJECT 6 TO 16 UNITS SUBCUTANEOUSLY DIRECTED PER SLIDING SCALE BLOOD SUGAR 150-200 = 6 UNITS, 201-250 = 10U, 251-300 = 12U, 301-350 = 14U, > 351 = 16U 15 mL 3 Active meloxicam (Mobic) 15 MG tablet Take 1 tablet p.o./day x 2 weeks then 1 tablet/day as needed pain thereafter 30 tablet Active acetaminophen (Tylenol) 500 MG tablet 31-2 tablets p.o. 3 times daily as needed pain- 60 tablet Active Pentips 32G X 4 MM miscIndications: Type 2 diabetes mellitus without complication, with long-term current use of insulin ([facility]) USE DIRECTED FOUR TIMES DAILY 100 each 6 024 2024 Discontinued HumaLOG KWIKPEN 100 UNIT/ML injectionIndicat ions:Type 2 diabetes mellitus without complication, with long-term current use of insulin ([facility]) INJECT 6 TO 16 UNITS SUBCUTANEOUSLY DIRECTED PER SLIDING SCALE BLOOD SUGAR 150-200 = 6 UNITS, 201-250 = 10U, 251-300 = 12U, 301-350 = 14U, > 351 = 16U 15 mL 3 025 2024 Discontinued predniSONE (Deltasone) 20 MG tablet Take 2 tablets (40 mg) by mouth Once per day for 7 days. Monitor blood glucose levels while taking prednisone. 14 tablet 025 2024 acetaminophen (Tylenol) 500 MG tablet Take 2 tablets (1,000 mg) by mouth every 6 (six) hours if needed for moderate pain or fever for up to 25 doses. 50 tablet 025 2024 Discontinued(R eorder (will not trigger notification to Pharmacy)) predniSONE (Deltasone) 10 MG tablet Take 3 tablets (30 mg) by mouth Once per day for 7 days. 21 tablet 025 2024 Discontinued(R eorder (will not trigger notification to Pharmacy)) predniSONE (Deltasone) 10 MG tablet Take 2 tablets (20 mg) by mouth Once per day for 7 days. 14 tablet 025 2024 Hospital, Clinic, or Other Facility Administered Medication Ordered Dose Route Frequency Start Date End Date Status ketorolac (Toradol) injection 30 mgIndications:Primary osteoarthritis of left knee 30 mg IM Once 07/24/2024 07/25/19 25 Ended Active Problems Problem Noted Date Diagnosed Date Primary osteoarthritis of left knee 07/24/2024 Assessment & Plan (07/24/2024 2:35 PM EDT): Patient has an effusion, recommended rest, ice to affected area 2-3 times per day, compression with a knee brace, and elevation of the leg 2 or 3 times per day. I gave her cane for ambulation to prevent falls and to decrease weightbearing on affected knee. Toradol injection today, can use Tylenol twice daily as needed breakthrough pain and start meloxicam daily tomorrow x 1 to 2 weeks Refer to PT Order x-rays of the right knee Temporal arteritis 07/23/2024 Assessment & Plan (07/23/2024 11:29 AM EDT): Patient seen by Dr Tyree sylvester on: C/o intractable headache, TA was in his differential, Pt's ESR came back high at: Pt was treated with Prednisone and referred for a TA biopsy that patient declined and Rheumatology ( pt has not been seen due to appointments being to far out. Pt did see an Regional Recruiter that did not see any abnormalitites and Neurology Dr. Sandoval who's assessment was temporal arteritis. He prescribed prednisone 2.5 mg daily, and mentioned follow-up office visit in 4 weeks. Patient today has been reminded to not miss appointment. Discussed with daughter who told me she would make sure pt does not miss appointment I asked that she repeat her ESR and CRP Pt already has appointment with me 09/03/2024 Acute pain of both knees 05/30/2024 Assessment & Plan (07/23/2024 11:31 AM EDT): Pt with c/o bilateral knee pain Right > Left x 3 weeks. Intensity 10/10 plain films both knees Right knee: IMPRESSION: 1. No radiographic evidence of acute injury to the right knee. 2. [id number] lateral compartment degenerative changes. Left: IMPRESSION: 1. No radiographic evidence of acute injury to the left knee. 2. Mild degenerative changes of the left knee most pronounced within the medial compartment. Ortho referral placed back in may, pt's daughter tells me its already scheduled in a couple of weeks Assessment & Plan (05/30/2024 9:39 AM EDT): [...] 02/07/2024 GERD (gastroesophageal reflux disease) Goiter 02/07/2024 Assessment & Plan (07/23/2024 11:13 AM EDT): Pt had a HEAD AND NECK CTA done on 06/10/2024 That showed a Thyroid nodule along the isthmus measuring 1.7 cm. No cervical mass or fluid collection. Thyroid US done 07/12/2024 that showed: Stable 3 mm cystic nodule at the lower pole of the right thyroid lobe. This represents a TR1 nodule and no follow-up is required. Otherwise unremarkable thyroid ultrasound. Hemorrhoids 02/07/2024 Hypercalcemia 02/07/2024 Non-rheumatic aortic stenosis [...] evaluation Last colonoscopy 07/2022 showed tubular adenomas [facility] care 06/21/2022 Assessment & Plan (03/21/2024 9:20 AM EST): Routine physical exam today: within normal limits Mammogram: NL : 02/22/2023 Pap Smear: 06/27/2023: Normal In 11/24/2016 ASCUS with positive HPV. Pt underwent Colpo with biopsies & ECC per TRIM ATTACHER notes from 04/2017 Colonoscopy: 07/2022 Tubular adenoma repeat 3 years Vaccines: Flu shot: tdap: 05/31/2013 Dexa scan:. 04/28/2015 showed osteopenia Assessment & Plan (01/30/2024 11:02 AM EST): Routine physical exam today: within normal limits Mammogram: NL : 02/22/2023 Pap Smear: 06/27/2023: Normal In 11/24/2016 ASCUS with positive HPV. Pt underwent Colpo with biopsies & ECC per TRIM ATTACHER notes from 04/2017 Colonoscopy: 07/2022 Tubular adenoma repeat 3-5 years Vaccines: Flu shot: tdap: 05/31/2013 Dexa scan:. 04/28/2015 showed osteopenia Assessment & Plan (01/19/2023 1:43 PM EST): Mammogram: NL : 01/29/2021 Pap Smear: 11/24/2016 ASCUS with positive HPV. Pt underwent Colpo with biopsies & ECC per TRIM ATTACHER notes from 04/2017 she was supposed to have a repeat with co test 04/2018 and if both neg then would f/u in 3 years records requested Colonoscopy: 07/2022 Tubular adenoma repeat 3-5 years Vaccines: Flu shot: tdap: 05/31/2013 Dexa scan:. 04/28/2015 showed osteopenia History of CVA (cerebrovascular accident) 2021 Assessment & Plan (05/30/2024 9:07 AM EDT): Hx of this Pt was admitted to [facility] from :12/31-12/22/2020 Patient presented to ED with [...] Hx of this Pt was admitted to [facility] from :12/31-12/22/2020 Patient presented to ED with [...] Plan (01/31/2023 11:27 AM EST): Seen at [facility] 01/28/2023 with an asthma exacerbation Doing better [...] she was seen by ENT specialist Dr mAbriz who diagnosed her with septal deviation, at [...] she was under the care of Dr Dipillo, last seen on: 03/25/2015 His impression was that pt had CAD with 3 vessel disease and negative nuclear stress test at [facility] . Due to her Hx of [...] disease and negative nuclear stress test at [facility] . Due to her recent CVA [...] disease and negative nuclear stress test at [facility] . Due to her recent CVA [...] Encounters Date Type Department Care Team Description 07/25/2024 Refill [facility] [address] [place] [address] James Flores MD Chronic anemia 07/24/2024 2:40 PM EDT Office Visit [facility] [address] [place] [phone] Lidya Pinedo MD Primary osteoarthritis of left knee (Primary Dx) 07/23/2024 11:00 AM EDT Telemedicine [facility] [address] [place] [phone] James Flores MD Goiter (Primary Dx); Temporal arteritis ([facility]); Acute pain of both knees 07/23/2024 Travel 07/23/2024 Refill [facility] [address] [place] [phone] James Flores MD Type 2 diabetes mellitus without complication, with long-term current use of insulin (CMS/HCC) 07/22/2024 Telephone [facility] [address] [place] [phone] Ludwin Sylvester MD 07/22/[address] [phone] James Flores MD chartprep 07/22/2024 Telephone [facility] [address] [place] [phone] Ludwin Sylvester MD Appointment Request 07/22/2024 Orders Only [facility] [address] [place] [phone] Ludwin Sylvester MD 07/20/2024 Refill [facility] [address] [place], [place] [phone] Ruchi Nolan MD Type 2 diabetes mellitus without complication, with long-term current use of insulin (CMS/HCC) 07/15/2024 Telephone [facility] [address] [place] [phone] James Flores MD Results 07/11/2024 Telephone [facility] [address] [place] [phone] Ludwin Sylvester MD 07/09/2024 Telephone [facility] [address] [place] [phone] Ludwin Sylvester MD 07/04/2024 Telephone [facility] [address] [place] [phone] James Flores MD Lab order question 07/03/2024 Telephone [facility] [address] [place] [phone] Ludwin Sylvester MD 07/02/2024 Telephone [facility] [address] [place] [address] [phone] Ludwin Sylvester MD 07/02/2024 Orders Only [facility] [address] [place] [phone] Ludwin Sylvester MD 06/28/2024 Orders Only [facility] [address] [place] [phone] Ludwin Sylvester MD 06/26/2024 10:00 AM EDT Office Visit [facility] [address] [place] [phone] Ludwin Sylvester MD Temporal headache (Primary Dx); Hypertension, unspecified type 06/22/2024 Refill [facility] [address] [place] [phone] James Flores MD Seasonal allergies 06/20/2024 Telephone [facility] [address] [place] [phone] Ludwin Sylvester MD 06/20/2024 Telephone [facility] [address] [place] [phone] Sarah Mark, LISA Plan of care 06/20/2024 Orders Only [facility] [address] [place] [phone] Ludwin Sylvester MD Giant cell arteritis (CMS/HCC) (Primary Dx); Anxiety 06/20/2024 Telephone [facility] [address] [place] [phone] Sarah Mark, LISA Plan of care 06/19/2024 10:20 AM EDT Office Visit [facility] [address] [phone] Ludwin Sylvester MD Neck pain (Primary Dx); Acute intractable headache, unspecified headache type; Acute pain of both knees; Hypertension, unspecified type 06/19/2024 Orders Only GENERIC EXTERNAL DATA DEPARTMENT Provider, Generic External Data 06/12/[address] [phone] Diana Coates RN Results 06/12/2024 Orders Only [address] [phone] James Flores MD Thyroid nodule (Primary Dx) 06/08/2024 Orders Only GENERIC EXTERNAL DATA DEPARTMENT Provider, Generic External Data 05/30/2024 9:15 AM EDT Office Visit [address] [phone] James Flores MD Type 2 diabetes mellitus with stage 3a chronic kidney disease, with long-term current use of insulin ([facility]) (Primary Dx); Primary hypertension; Mixed hyperlipidemia; Coronary artery disease involving beaver coronary artery of beaver heart without angina pectoris; Severe obesity ([facility]); Dietary counseling; Exercise counseling; History of CVA (cerebrovascular accident); Age-related osteoporosis without current pathological fracture; Acute pain of both knees; Encounter for immunization 05/30/2024 Patient Outreach [address] [phone] James Flores MD Care Coordination (CHW outreach for SDOH housing search-referral completed ) 05/30/2024 Travel 05/23/[address] [address] James Flores MD Chronic anemia 05/22/[address] [phone] James Flores MD Chart Prep 05/20/2024 Refill [facility] [address] [place] [address] James Flores MD 05/10/2024 Refill [facility] [address] [place] [address] Tiana MELVIN Sepulveda Mild intermittent asthma without complication 05/01/2024 Orders Only GENERIC EXTERNAL DATA DEPARTMENT Provider, Generic External Data from Last 3 Months Immunizations Immunization Administration Dates Next Due Influenza Injectable Quadriv [...] Sign Reading Time Taken Comments Blood Pressure 140/70 07/24/2024 2:08 PM EDT Pulse 77 07/24/2024 2:08 PM EDT Temperature 35.9 ??C (96.6 ??F) 07/24/2024 2:08 PM ED T Respiratory Rate 16 07/24/2024 2:08 PM EDT Oxygen Saturation 98% 07/24/2024 2:08 PM EDT Inhaled Oxygen Concentration - - Weight 80.7 kg (178 lb) 07/24/2024 2:08 PM EDT Height 147.3 cm (4' 10 ) 07/24/2024 2:08 PM EDT Body Mass Index 37.2 07/24/2024 2:08 PM EDT Plan of Treatment Upcoming Encounters Date Type Department Care Team (Late st Contact Info) Description 07/26/2024 9:30 AM EDT Clinical Support [facility] [address] [place] [address] 09/03/2024 11:15 AM EDT Office Visit [facility] [address] [place] [address] James Flores MD [address] [place] [address] Health Maintenance Due Date Last Done Comments CT Colonography 1955 FIT DNA/Cologuard 1955 FIT 1955 FOBT 1955 Sigmoidoscopy 1955 Hepatitis C Screening 05/18/1973 Pneumococcal Vaccine: 50+ Years (1 of 2 - PCV) 05/18/1974 RSV Patients and Patients Aged 60 years or older (1 - Risk 60-74 years 1-dose series) 2015 Zoster Vaccines (3 of 3) 09/14/2021 07/20/2021, 0811/2015 COVID-19 Vaccine (3 - season) 2023 08/31/2020, 08/01/2020 Diabetes: Hemoglobin A1C 06/19/2024 025, 01/30/2024, 01/19/2023, Additional history exists Alcohol/Substance Use Screening 01/29/2025 01/30/2024 Depression Screening 01/29/2025 01/30/2024, 01/30/20 24 Lipid Panel 02/04/2025 02/05/2024, 11/2022, 06/09/2022, Additional history exists Diabetes: Foot Exam 02/06/2025 02/07/2024, 02/07/2024, 02/07/2024, Additional history exists Mammogram 02/22/2025 02/22/2023, 01/11, 01/29/2021, Additional history exists SDOH Screening 05/30/2025 05/30/2024 Colonoscopy 07/11/2025 07/11/2022 Colorectal Cancer Screening 07/11/2025 Tobacco Screening 07/24/2025 07/24/2024 Eye Exam 06/20/2026 06/20/2024 HPV/Cotest 01/17/2027 01/17/2022, 1109/2021, 11/24/2016 Pap Smear 06/21/2028 06/22/2023, 01/17/2022 DTaP/Tdap/Td [...] patient's age to complete this topic Meningococcal B Vaccine Aged Out No l onger eligible based on patient's age to complete [...] Priority Date/Time Associated Diagnosis Comments XR KNEE 3 VIEWS RIGHT Routine 07/24/2024 2:51 PM EDT Primary osteoarthritis of left knee US THYROID Routine 07/11/2024 12:58 PM EDT Thyroid nodule US DUPLEX ARTERIAL VENOUS COMP Routine 06/29/2024 9:18 AM EDT AMB REFERRAL TO OPHTHALMOLOGY Urgent 06/20/2024 Giant cell arteritis (CMS/HCC) PTH, INTACT WITHOUT CALCIUM Routine 06/19/2024 10:56 [...] EDT XR KNEE 4+ VIEWS RIGHT Routine 06/08/2024 6:30 PM EDT XR KNEE 4+ VIEWS LEFT Routine 06/08/2024 6:29 PM EDT BASIC METABOLIC PANEL Routine 06/08/2024 4:18 PM EDT CBC WITH AUTO DIFFERENTIAL Routine 06/08/2024 4:18 PM EDT SARS COV2/INFLUENZA A/B AND RSV RNA QL NAAT Routine 06/08/2024 4:18 PM EDT XR KNEE 4+ VIEWS RIGHT Routine 05/30/2024 10:25 AM EDT Acute pain of both knees XR KNEE 4+ VIEWS LEFT Routine 05/30/2024 10:25 AM EDT Acute pain of both knees POCT GLUCOSE Routine 05/30/2024 9:25 AM EDT Type 2 diabetes mellitus with stage 3a chronic kidney disease, with long-term current use of insulin ([facility]) XR DEXA APPENDICULAR SKELETON Routine 05/15/2024 8:15 AM EST GLUCOSE, WHOLE BLOOD Routine 05/01/2024 9:11 AM EST POCT GLYCATED HEMOGLOBIN, TOTAL Routine 03/21/2024 9:51 AM EST Type 2 diabetes mellitus with stage 3a chronic kidney disease, with long-term current use of insulin ([facility]) LIPID PANEL, STANDARD Routine 02/05/2024 7:55 AM EST Type 2 diabetes mellitus with stage 3a chronic kidney disease, with long-term current use of insulin ([facility]) PAP SMEAR Routine 06/22/2023 3:20 PM EDT BI MAMMOGRAM SCREENING TOMOSYNTHESIS BILATERAL Routine 02/22/2023 8:20 AM EST HM COLONOSCOPY Routine 07/11/2022 3:53 PM EDT ZZZ HISTORICAL HPV E6/E7 RFLX DANIAL 16 18/45 Routine 01/17/2022 4:22 PM EST from Last 3 Months or Most Recently Relevant to Health Maintenance Results * XR Knee 3 Views Right (07/24/2024 2:51 PM EDT) Anatomical Region Laterality Modality Lower Extremities, Knee Right Radiogra [facility] 07/24/2024 2:51 PM EDT Narrative 07/24/2024 3:34 PM EDT ?[facility] ?[address] ?[place] [address] ?XRay Report ? Signed ? Patient: Cappa,Jayne ?MR#: [id number] ? : 1955 ?Acct:[id number] ? Age/Sex: 69 / F ?ADM Date: 05/14/25 ? Loc: HO.HHCX ? Attending Dr: Lidya Pinedo MD ? Ordering Physician: Lidya Pinedo MD ?? Date of Service: 07/24/24 ?? Procedure(s): XR knee RT 3V ?? Accession Number(s): [id number] ? cc: Lidya Pinedo MD ? EXAMINATION: ??XR KNEE 3 VIEWS RIGHT ? HISTORY: right knee pain/effusion ? COMPARISON: Comparison is made with the prior examination dated ?? 06/08/2024. ? FINDINGS: ? Five views of the right knee are submitted. ??Osseous mineralization is ?? normal. Again seen is an exostosis of the distal lateral femoral ?? metaphysis. ??There is no fracture or dislocation. ??There is moderate ?? degenerative change of the lateral compartment with joint space ?? narrowing and osteophyte formation. ??There are vascular calcifications. ?? There is a small joint effusion. ? XR/XR knee RT 3V ?? IMPRESSION: ? Small joint effusion. Moderate degenerative change of the lateral. ? Electronically signed by: ??Zev Mukherjee MD ??07/24/2024 03:32 PM EDT ? Dictated By: ?Zve Mukherjee MD ? Signed By: ?<Electronically signed by Zev Mukherjee MD in OV> ?07/24/24 1532 ? DD/ 1451 ? TD/TT: 07/24/24 1500 ? Receiver Stocker: ? Procedure Note Ofelia, Image - 07/24/[address] [address] XRay Report Signed Patient: Jayne LaneMR#: [id number] : 6Acct:[id number] Age/Sex: 69 / FADM Date: 07/24/24 Loc: HO.HHCX Attending Dr: Lidya Pinedo MD Ordering Physician: Lidya Pinedo MD Date of Service: 07/24/24 Procedure(s): XR knee RT 3V Accession Number(s): [id number] cc: Khris,Citlaly. MD EXAMINATION: XR KNEE 3 VIEWS RIGHT HISTORY: right knee pain/effusion COMPARISON: Comparison is made with the prior examination dated 06/08/2024. FINDINGS: Five views of the right knee are submitted. Osseous mineralization is normal. Again seen is an exostosis of the distal lateral femoral metaphysis. There is no fracture or dislocation. There is moderate degenerative change of the lateral compartment with joint space narrowing and osteophyte formation. There are vascular calcifications. There is a small joint effusion. XR/XR knee RT 3V IMPRESSION: Small joint effusion. Moderate degenerative change of the lateral. Electronically signed by: Zev Mukherjee MD 07/24/2024 03:32 PM EDT RP Dictated By: Zev Mukherjee MD Signed By: <Electronically signed by Zev Mukherjee MD in OV> 07/24/24 1532 DD/ 1451 TD/TT: 07/24/24 1500 Receiver Stocker: us Lidya Pinedo MD IMG XR PROCEDURES Final Result * US Thyroid (07/11/2024 12:58 PM EDT) Anatomical Region Laterality Modality Head, Neck Ultrasound 07/11/2024 12:5 8 PM EDT Narrative 07/12/2024 7:13 AM EDT ? [facility] ?[address] ?[place] [address] ? Ultrasound Report ? Signed ? Patient: Cappa,Jayne ?MR#: [id number] ? : 1955 ?Acct:[id number] ? Age/Sex: 69 / F ?ADM Date: 07/11/ ? Loc: HO.US ? Attending Dr: James Trimble MD ? Ordering Physician: James Trimble MD ?? Date of Service: 07/11/24 ?? Procedure(s): US thyroid ?? Accession Number(s): [id number] ? cc: James Trimble MD ? EXAMINATION: ??US THYROID ? HISTORY: 1.7 cm thyroid nodule US ? TECHNIQUE: Real-time grayscale ultrasound imaging was performed and ?? images were reviewed. ? COMPARISON: Comparison is made with the prior examination dated ?? 10/26/2022. ? FINDINGS: ?? SIZE: The right thyroid lobe measures 3.9 x 1.5 x 1.4 cm. ??The left ?? thyroid lobe measures 3.9 x 1.4 x 1.5 cm. ?? The isthmus measures 4 mm. ? FLOW: ??Flow to the gland is normal. ? ECHOGENICITY: ??The echotexture of the gland is homogeneous. ? NODULES: ?? Again seen is a 3 mm cystic nodule at the lower pole of the right ?? thyroid lobe. ? US/US thyroid ?? IMPRESSION: ?? Stable 3 mm cystic nodule at the lower pole of the right thyroid lobe. ?? This represents a TR1 nodule and no follow-up is required. Otherwise ?? unremarkable thyroid ultrasound. ? ACR TI-RADS Guidelines ? TR1 (0 points): Benign, ??No follow-up or biopsy required ?? TR2 (2 points): Not Suspicious, ??No biopsy or follow up indicated ?? TR3 (3 points): Mildly Suspicious, ??FNA if >= 2.5 cm, Follow if >= 1.5 ?? cm ?? TR4 (4-6 points): Moderately Suspicious, FNA if >= 1.5 cm, Follow if >= ?? 1.0 cm ?? TR5 (>=7 points): Highly Suspicious, ??FNA if >= 1.0 cm, Follow if >= ?? 0.5 cm ? Electronically signed by: ??Zev Mukherjee MD ??07/12/2024 07:10 AM EDT ?? RP ? Dictated By: ?Zev Mukherjee MD ? Signed By: ?<Electronically signed by Zev Mukherjee MD in OV> ?07/12/24 0710 ? DD/ 1258 ? TD/TT: 07/11/24 1302 ? Receiver Stocker: ? Procedure Ash Gilbert, Viridiana - 07/12/[address] [address] Ultrasound Report Signed Patient: Jayne LaneMR#: [id number] : 6Acct:[id number] Age/Sex: 69 / FADM Date: 07/11/24 Loc: HO.US Attending Dr: James Trimble MD Ordering Physician: James Trimble MD Date of Service: 07/11/24 Procedure(s): US thyroid Accession Number(s): [id number] cc: James Trimble MD EXAMINATION: US THYROID HISTORY: 1.7 cm thyroid nodule US TECHNIQUE: Real-time grayscale ultrasound imaging was performed and images were reviewed. COMPARISON: Comparison is made with the prior examination dated 10/26/2022. FINDINGS: SIZE: The right thyroid lobe measures 3.9 x 1.5 x 1.4 cm. The left thyroid lobe measures 3.9 x 1.4 x 1.5 cm. The isthmus measures 4 mm. FLOW: Flow to the gland is normal. ECHOGENICITY: The echotexture of the gland is homogeneous. NODULES: Again seen is a 3 mm cystic nodule at the lower pole of the right thyroid lobe. US/US thyroid IMPRESSION: Stable 3 mm cystic nodule at the lower pole of the right thyroid lobe. This represents a TR1 nodule and no follow-up is required. Otherwise unremarkable thyroid ultrasound. ACR TI-RADS Guidelines TR1 (0 points): Benign, No follow-up or biopsy required TR2 (2 points): Not Suspicious, No biopsy or follow up indicated TR3 (3 points): Mildly Suspicious, FNA if >= 2.5 cm, Follow if >= 1.5 cm TR4 (4-6 points): Moderately Suspicious, FNA if >= 1.5 cm, Follow if >= 1.0 cm TR5 (>=7 points): Highly Suspicious, FNA if >= 1.0 cm, Follow if >= 0.5 cm Electronically signed by: Zev Mukherjee MD 07/12/2024 07:10 AM EDT RP Dictated By: Zev Mukherjee MD Signed By: <Electronically signed by Zev Mukherjee MD in OV> 07/12/24 0710 DD/ 1258 TD/TT: 07/11/24 1302 Receiver Stocker: us James Ashraf MD IMG US PROCEDURES Fin al Result * US DUPLEX ARTERIAL VENOUS COMP (06/29/2024 9:18 AM EDT) Anatomical Region Laterality Modality Abdomen Ultrasound 06/29/2024 9:18 AM EDT Narrative 06/29/2024 9:19 AM EDT ? [facility] ?[address] ?[place] [address] ? Ultrasound Report ? Signed ? Patient: Cappa,Jayne ?MR#: [id number] ? : 1955 ?Acct:[id number] ? Age/Sex: 69 / F ?ADM Date: 06/28/24 ? Loc: HO.US ? Attending Dr: Ludwin Sylvester MD ? Ordering Physician: LUDWIN SYLVESTER MD ?? Date of Service: 06/28/24 ?? Procedure(s): US duplex arterial venous comp ?? Accession Number(s): [id number] ? cc: LUDWIN SYLVESTER MD; James Trimble MD ? CLINICAL HISTORY: Bitemporal headache, presumptive diagnosis of temporal artery arteritis .Temporal Artery evaluation ? US Bilateral temporal artery Duplex ? Comparison: None ? Findings: ?? On the right, the common temporal artery velocity is 50 cm/sec with no ?? halo or stenosis identified. ?? The frontal ramus artery velocity is 63 cm/second with no halo or stenosis. ? On the left, common temporal artery velocity is 131 cm/second with no halo ?? or stenosis and tortuous vessel as possible etiology of the velocity ?? measured. ?? Frontal ramus artery is 34 cm/second with no halo or stenosis. ? IMPRESSION: ?? Normal temporal arteries, no significant stenosis. Tortuous left temporal ?? artery. ? This document has been electronically signed by: David Poole MD on ?? 06/29/2024 09:18:29 ? Dictated By: ?David Poole MD ? Signed By: ?<Electronically signed by David Poole MD in OV> ?06/29/24918 ? DD/ 7 ? TD/TT: 06/29/24917 ? Receiver Stocker: ? Procedure Note Donotuseinterpreter, Image - 06/29/2024 [place] [address] Ultrasound Report Signed Patient: Jayne LaneMR#: [id number] : 6Acct:[id number] Age/Sex: 69 / FADM Date: 06/28/24 Loc: HO.US Attending Dr: Ludwin Sylvester MD Ordering Physician: LUDWIN SYLVESTER MD Date of Service: 06/28/24 Procedure(s): US duplex arterial venous comp Accession Number(s): [id number] cc: LUDWIN SYLVESTER MD; James Trimble MD CLINICAL HISTORY: Bitemporal headache, presumptive diagnosis of temporalartery arteritis .Temporal Artery evaluation US Bilateral temporal artery Duplex Comparison: None Findings: On the right, the common temporal artery velocity is 50 cm/sec with no halo or stenosis identified. The frontal ramus artery velocity is 63 cm/second with no halo orstenosis. On the left, common temporal artery velocity is 131 cm/second with no halo or stenosis and tortuous vessel as possible etiology of the velocity measured. Frontal ramus artery is 34 cm/second with no halo or stenosis. IMPRESSION: Normal temporal arteries, no significant stenosis. Tortuous left temporal artery. This document has been electronically signed by: David Poole MD on 06/29/2024 09:18:29 Dictated By: David Poole MD Signed By: <Electronically signed by David Poole MD in OV> 06/29/24918 DD/ 7 TD/TT: 06/29/24917 Receiver Stocker: Ludwin Sylvester MD IMG US PROCEDURES Final Result * Referral to Ophthalmology (06/20/2024) Ludwin Sylvester MD OUTPATIENT REFERRAL ORDERABLES F inal Result * Lyme Disease Ab with Reflex to Blot (IgG, IgM) (06/19/2024 10:56 AM EDT) Pathologist [facility] Lyme Antibody Screen <0.90 index [facility] Comment:Index Interpretation ----- < 0.90 Negative [...] when erythemamigrans is apparent.THIS TEST WAS PERFORMED AT:[facility] [place] [phone] CHAND MD Lyme Blot [facility] 06/19/2024 10:5 6 AM EDT 06/19/2024 11:51 AM EDT Ludwin Sylvester MD LAB BLOOD ORDERABLES Final Resul t [facility] [address] [place] [address] [phone] * RPR (Monitor) with Reflex to??Titer (06/19/2024 10:56 AM EDT) Pathologist [facility] RPR (Monitor) w/Refl Titer NON-REACTI VE NON-REACT DANNY [facility] Comment:THIS TEST WAS PERFOR MED AT:[facility] [place] [phone] CHAND MD Rapid Plasma Reagin Ab Titer [facility] Blood Venous blood specimen / Unknown 06/19/2024 10:56 AM EDT 06/19/2024 11:40 AM EDT Ludwin Sylvester MD LAB BLOOD ORDERABLES Final Resul t Performing Organization Address [facility] de Phone Number [facility] [address] [place] [phone] * (ABNORMAL) Sed Rate by Modified Sudharen (06/19/2024 10:56 AM EDT) Erythrocyte Sedimentation Rate 98(H) 0 - 20 MM/HR [facility] Comment:Patients with polycy themia and many hemoglobin abnormalitiesmay have depressed sed rates whereas patients with anemiamay have elevated sed rates. Blood Venous blood specimen / Unknown 06/19/2024 10:56 AM EDT 06/19/2024 11:40 AM EDT Ludwin Sylvester MD LAB BLOOD ORDERABLES Final Resul t Performing Organization Address [facility] de Phone Number [facility] [address] [place] [phone] * PTH, Intact Without Calcium (06/19/2024 10:56 AM EDT) Parathyroid Hormone, Intact 60.9 8.7 - 77.1 pg/mL [facility] 06/19/2024 10:5 6 AM EDT 06/19/2024 11:40 AM EDT Generic External Data Provider LAB BLOOD ORDERAB LES Final Result Performing Organization Address [facility] Co de Phone Number [facility] [address] [place] [phone] * Vitamin D, 25-Hydroxy, Total, Immunoassay (06/19/2024 10:26 AM EDT) Vitamin D 25-OH Total 41.0 >30 ng/mL [facility] Comment: Health Based Reference Values*< 20 ??ng/mL ??Tfvxsrowc57-51 ng/mL ??Insufficient> 30 ??ng/mL ??Sufficient*Altagracia GOODWIN. N [...] ORDERAB LES Final Result Performing Organization Address [facility]/ZIP Co de Phone Number [facility] [address] [place] [address] [phone] * (ABNORMAL) C-reactive Protein (06/19/2024 10:26 AM EDT) C Reactive Protein 2.44(H) < or = 0.50 mg/dL [facility] 06/19/2024 10:2 6 AM EDT 06/19/2024 11:49 AM EDT Generic External Data Provider LAB BLOOD ORDERAB LES Final Result Performing Organization Address [facility]/ZIP Co de Phone Number [facility] [address] [place], [place] [phone] * (ABNORMAL) Calcium (06/19/2024 10:26 AM EDT) Calcium 10.6(H) 8.4 - 10.2 mg/dL [facility] 06/19/2024 10:2 6 AM EDT 06/19/2024 11:49 AM EDT us Generic External Data Provider LAB BLOOD ORDERAB LES Final Result Performing Organization Address [facility] Co de Phone Number [facility] [address] [place] [phone] * Albumin (06/19/2024 10:26 AM EDT) Albumin Level 4.1 3.5 - 5.0 g/dL [facility] 06/19/2024 10:2 6 AM EDT 06/19/2024 11:49 AM EDT us Generic External Data Provider LAB BLOOD ORDERAB LES Final Result Performing Organization Address [facility] de Phone Number [facility] [address] [place] [phone] * CTA Head Neck w/ and w/o Contrast (06/08/2024 7:19 PM EDT) Anatomical Region Laterality Modality Head, Neck Computed Tomogra phy 06/08/2024 7:19 PM EDT Narrative 06/08/2024 7:20 PM EDT ? [facility] ?[address] ?[place] [address] ? CT Scan Report ? Signed ? Patient: Cappa,Jayne ?MR#: [id number] ? : 1955 ?Acct:[id number] ? Age/Sex: 69 / F ?ADM Date: 03/29/25 ? Loc: HO.ED ? Attending Dr: ? Ordering Physician: Ligia Marie ?? Date of Service: 06/08/24 ?? Procedure(s): CT angio head neck ?? Accession Number(s): [id number] ? cc: James Trimble MD; Ligia Marie ? Report Number: ?? [id number]: Total DLP = 1370.00 mGy-cm ? CLINICAL [...] ? DD/ 18 ? TD/TT: 06/08/241918 ? Receiver Stocker: ? Procedure Note Ofelia, Image - 06/08/[address] [address] [address] Scan Report Signed Patient: Olivia Lane#: [id number] : 6Acct:[id number] Age/Sex: 69 / FADM Date: 06/08/24 Loc: HO.ED Attending Dr: Ordering Physician: Ligia Marie Date of Service: 06/08/24 Procedure(s): CT angio head neck Accession Number(s): [id number] cc: James Trimble MD; Ligia Marie Report Number: [id number]: Total DLP = 1370.00 mGy-cm CLINICAL HISTORY: [...] in OV> 06/08/241919 DD/ 18 TD/TT: 06/08/241918 Receiver Stocker: [facility] External Provider IMG CT PROCEDURES Edited Result - Final * XR Knee 4+ Views Right (06/08/2024 6:30 PM EDT) Only the most recent of2 resultswithin the time period is included. Anatomical Region Laterality Modality Lower Extremities, Knee Right Radiogra phic Imaging 06/08/2024 6:30 PM EDT Narrative 06/08/2024 6:32 PM EDT ? [facility] ?[address] ?[place] [address] ?XRay Report ? Signed ? Patient: Cappa,Jayne ?MR#: [id number] ? : 1955 ?Acct:[id number] ? Age/Sex: 69 / F ?ADM Date: 06/08/24 ? Loc: HO.ED ? Attending Dr: ? Ordering Physician: Ligia Marie ?? Date of Service: 06/08/24 ?? Procedure(s): XR knee RT 4V ?? Accession Number(s): [id number] ? cc: James Trimble MD; Ligia Marie [...] injury to the right knee. ?? 2. Ueuo-yc-hlvzvnib lateral compartment degenerative changes. ? This document has been electronically signed by: Reginaldo Lowry MD on ?? 06/08/2024 18:30:46 ? Dictated By: ?Reginaldo Lowry MD ? Signed By: ?<Electronically signed by Reginaldo Lowry MD in OV> ?06/08/24 1831 ? DD/ 1830 ? TD/TT: 06/08/24 1830 ? Receiver Stocker: ? Procedure Note Ofelia, Image - 06/08/[address] [address] XRay Report Signed Patient: Olivia Lane#: [id number] : 6Acct:[id number] Age/Sex: 69 / FADM Date: 06/08/24 Loc: HO.ED Attending Dr: Ordering Physician: Ligia Marie Date of Service: 06/08/24 Procedure(s): XR knee RT 4V Accession Number(s): [id number] cc: James Trimble MD; Ligia Marie CLINICAL [...] acute injury to the right knee. 2. Uirv-bl-wuyphlsa lateral compartment degenerative changes. This document has been electronically signed by: Reginaldo Lowry MD on 06/08/2024 18:30:46 Dictated By: Reginaldo Lowry MD Signed By: <Electronically signed by Reginaldo Lowry MD in OV> 06/08/24 183 DD/ 29 TD/TT: 06/08/24 1830 Receiver Stocker: [facility] External Provider IMG XR PROCEDURES Edited Result - Final * XR Knee 4+ Views Left (06/08/2024 6:29 PM EDT) Only the most recent of2 resultswithin the time period is included. Anatomical Region Laterality Modality Lower Extremities, Knee Left [facility] 06/08/2024 6:29 PM EDT Narrative 06/08/2024 6:30 PM EDT ? [facility] ?[address] ?[place] [address] ?XRay Report ? Signed ? Patient: Cappa,Jayne ?MR#: [id number] ? : 1955 ?Acct:[id number] ? Age/Sex: 69 / F ?ADM Date: 03/29/25 ? Loc: HO.ED ? Attending Dr: ? Ordering Physician: Ligia Marie ?? Date of Service: 06/08/24 ?? Procedure(s): XR knee LT 4V ?? Accession Number(s): [id number] ? cc: James Trimble MD; Ligia Marie [...] by Reginaldo Lowry MD in OV> ?06/08/24 1829 ? DD/ 28 ? TD/TT: 06/08/241828 ? Receiver Stocker: ? Procedure Note Nishaveronica, Image - 06/08/[address] [address] XRay Report Signed Patient: Jayne LaneMR#: [id number] : 6Acct:[id number] Age/Sex: 69 / FADM Date: 06/08/24 Loc: HO.ED Attending Dr: Ordering Physician: Ligia Marie Date of Service: 06/08/24 Procedure(s): XR knee LT 4V Accession Number(s): [id number] cc: James Trimble MD; Ligia Marie CLINICAL [...] in OV> 06/08/241828 DD/ 28 TD/TT: 06/08/241828 Receiver Stocker: [facility] External Provider IMG XR PROCEDURES Edited Result - Final * SARS-CoV-2 RNA, Influenza A/B, and RSV RNA, Ql NAAT (06/08/2024 4:18 PM EDT) Influenza A PCR NEGATIVE Negative [facility] Influenza B PCR NEGATIVE Negative [facility] Resp Syncy Virus RNA Qual PCR NEGATIVE Negative [facility] SARS COV2 PCR NEGATIVE Negative [facility] Comment:All test results mus t [...] use by authorized laboratories.Testing performed on the [employer] GeneXpert utilizingreal-time RT-PCR.All SARS CoV2 and positive influenza A/B results arereported to [facility]. 06/08/2024 4:18 PM EDT 06/08/2024 4:21 PM EDT Generic External Data Provider LAB MICROBIOLOGY - GENERAL ORDERABLES Final Result [facility] [address] [place] [phone] [phone] * (ABNORMAL) CBC auto differential (06/08/2024 4:18 PM EDT) White Blood Count 6.4 4.8 - 10.8 X10*3/uL [facility] Red Blood Count 3.75(L) 4.20 - 5.50 X10*6/uL [facility] Hemoglobin 11.5(L) 12.0 - 16.0 g/dl [facility] Hematocrit 35.0(L) 37.0 - 47.0 % [facility] Mean Corpuscular Volume 93.3 80.0 - 98.0 fL [facility] Mean Corpuscular Hemoglobin 30.7 27.0 - 33.0 pg [facility] Mean Corpuscular HGB Conc 32.9 31.0 - 35.0 g/dl [facility] Red Cell Distribution Width 13.0 11.0 - 16.0 % [facility] Platelet Count 236 160 - 400 X10*3/uL [facility] Mean Platelet Volume 9.8 9.4 - 12.3 fL [facility] Neutrophils Percent Auto 62.4 45 - 73 % [facility] Imm Gran Pct Auto 0.5(H) 0.0 - 0.4 % [facility] Lymphocytes Percent Auto 29.3 20 - 40 % [facility] Monocytes Percent Auto 6.3 2 - 11 % [facility] Eosinophils Percent Auto 1.3 0 - 4 % [facility] Basophils Percent Auto 0.2 0 - 2 % [facility] NRBC Pct Auto 0.0 0.0 - 0.2 /100WBC [facility] Neutrophils Absolute Auto 4.0 2.0 - 8.3 x10*3/uL [facility] Imm Gran Abs Auto 0.03 0.00 - 0.03 X10*3/uL [facility] Lymphocytes Absolute Auto 1.9 1.2 - 4.9 X10*3/uL [facility] Monocytes Absolute Auto 0.4 0.1 - 1.2 X10*3/uL [facility] Eosinophils Absolute Auto 0.1 0.0 - 0.4 X10*3/uL [facility] Basophils Absolute Auto 0.0 0.0 - 0.2 X10*3/uL [facility] NRBC Abs Auto 0.000 0.0 - 0.012 X10*3/uL [facility] 06/08/2024 4:18 PM EDT 06/08/2024 4:21 PM EDT us Generic External Data Provider LAB BLOOD ORDERAB LES Final Result [facility] [address] [place] [address] [phone] * (ABNORMAL) Basic Metabolic Panel (06/08/2024 4:18 PM EDT) Sodium 142 135 - 145 mmol/L [facility] Potassium 4.8 3.3 - 5.1 mmol/L [facility] Chloride 107 96 - 108 mmol/L [facility] Carbon Dioxide 28 22 - 29 mmol/L [facility] Anion Gap 12 12 - 20 [facility] Urea Nitrogen (BUN) 33(H) 9 - 16 mg/dL [facility] Creatinine, Serum 1.41(H) 0.5 - 1.4 mg/dL [facility] Creatinine Clr Calc Pharmacy 34.3 [facility] Comment:Provided height and weight: 149.86 cm,79.7 kg.eGFR (calculated from the MDRD study equation) and eCrCl(calculated from the Cockcroft-Gault equation) are based ondifferent parameters and may not yield comparable results.If eCrCl result is absurd, please check patient'sheight/weight. Estimated Glomerular Filt Rate 37 [facility] Comment:Chronic Kidney Disea se: Estimated GFR < 60 mL/min/1.04l7Jtqobh Kidney Disease: Estimated GFR < 15 mL/min/1.73m2 Glucose 227(H) 60 - 115 mg/dL [facility] Calcium 10.1 8.4 - 10.2 mg/dL [facility] 06/08/2024 4:18 PM EDT 06/08/2024 4:21 PM EDT us Generic External Data Provider LAB BLOOD ORDERAB LES Final Result [facility] [address] [facility] [place] [address] [phone] * (ABNORMAL) POCT Glucose (05/30/2024 9:25 AM EDT) Glucose Blood, POC 202(A) 60 - 200 mg/dL QC Media Lot # [id number] Lot# Expiration Date [id number] Blood Capillary blood specimen / Unknown 05/30/2024 9:25 AM EDT us James Ashraf MD POINT OF CARE TEST EN TER/EDIT ORDERABLES Final Result * XR DEXA APPENDICULAR SKELETON (05/15/2024 8:15 AM EST) Anatomical Region Laterality Modality Abdomen Radiographic Rena ging 05/15/2024 8:15 AM EST Narrative 05/17/2024 7:37 AM EST ? [facility] ? [address] ?[place] [address] ? Mammography Report ? Signed ? Patient: Cappa,Jayne ?MR#: [id number] ? : 1955 ?Acct:[id number] ? Age/Sex: 68 / F ?ADM Date: 03/05/25 ? Loc: HO.MAMMO ? Attending Dr: Lina Jason MD ? Ordering Physician: Lina Jason MD ?Results: ? Date of Service: 05/15/24 ?Follow Up: ? Procedure(s): XR DEXA appendicular skeleton ?? Accession Number(s): [id number] ? cc: James Trimble MD; Lina Jason MD ? EXAMINATION: ??DXA BONE DENSITY EXTREMITY ? HISTORY: ??Estrogen deficiency ? TECHNIQUE: [employer] Dual energy absorptiometry (DEXA) ?? of the [...] the [employer] ?? [facility] Metabolic [employer] Disease, a World Health Organization (WHO) ?? Collaborating Center. ? Electronically signed by: ??Zev Mukherjee MD ??05/17/2024 07:34 AM EST ?? RP ? Dictated By: ?Zev Mukehrjee MD ? Signed By: ?<Electronically signed by Zev Mukherjee MD in OV> ?05/17/24 0734 ? DD/ 0815 ? TD/TT: 05/15/24 0840 ? Receiver Stocker: ? Procedure Note Viridiana Gilbert - 05/17/2024 [facility] [address] [place] [address] Mammography Report Signed Patient: Jayne LaneMR#: [id number] : 6Acct:[id number] Age/Sex: 68 / FADM Date: 05/15/24 Loc: ROSARIO Attending Dr: Lina Jason MD Ordering Physician: Lina Jasonesults: Date of Service: 05/15/24Follow Up: Procedure(s): XR DEXA appendicular skeleton Accession Number(s): [id number] cc: James Trimble MD; Lina Jason MD EXAMINATION: DXA BONE DENSITY EXTREMITY HISTORY: Estrogen deficiency TECHNIQUE: DoYouBuzz Dual energy absorptiometry (DEXA) of the lumbar [...] is a trademark of the [employer]'s [facility] Disease, a World Health Organization (WHO) Collaborating Center. Electronically signed by: Zev Mukherjee MD 05/17/2024 07:34 AM EST Dictated By: Zev Mukherjee MD Signed By: <Electronically signed by Zev Mukherjee MD in OV> 05/17/24 0734 DD/ 0815 TD/TT: 05/15/24 0840 Receiver Stocker: [facility] External Provider IMG XR PROCEDURES Final Result * (ABNORMAL) Glucose, Whole Blood (05/01/2024 9:11 AM EST) Pathologist [facility] Glucose, Whole Blood 150(H) 60 - 115 mg/dL [facility] Comment:METER #: [id number] 5Testing performed in the Endocrinology Department [address] , [address], [facility]. 05/01/2024 9:11 AM EST 05/01/2024 9:15 AM EST Generic External Data Provider LAB BLOOD ORDERAB LES Final Result [facility] [address] [place] [phone] * (ABNORMAL) POCT HGB A1C (03/21/2024 9:51 AM EST) [facility] Hemoglobin A1C 8.4(A) 4.0 - 6.0 % QC Media Lot # [id number] Lot# Expiration Date ,266 Blood 03/21/2024 9:51 AM EST James Ashraf MD POINT OF CARE TEST EN TER/EDIT ORDERABLES Final Result * Lipid Panel, Standard (02/05/2024 7:55 AM EST) Pathologist [facility] Triglycerides 104 <150 mg/dL [facility] Comment:Desirable Triglyceri de: less than 150 mg/dLBorderline High Triglyceride 150-199 mg/dLHigh Triglyceride: 200-499 mg/dLVery High Triglyceride: greater than or equal to 5OO mg/dL Cholesterol 123 <200 mg/dL [facility] Comment:Desirable Cholestero l: less than 200 mg/dLBorderline High Cholesterol: 200-239 mg/dLHigh Cholesterol: greater than 239 mg/dL LDL Cholesterol Calculated 62 <100 mg/dL [facility] Comment:Desirable LDL: less than 100 mg/dLNear Optimal/Above Optimal LDL: 110- 129 mg/dLBorderline High LDL: 130-159 mg/dLHigh LDL: 160-189 mg/dLVery High LDL: greater than or equal to 190 mg/dL HDL Cholesterol 41 >40 mg/dL [facility] Comment:Desirable HDL: great er than 40 mg/dL Note: This HDL assay may give artificially low results in patients with liver disease. Blood Venous blood specimen / Unknown 02/05/2024 7:55 AM EST 02/05/2024 11:17 AM EST us James Ashraf MD LAB BLOOD ORDERABLES Final Result Performing Organization Address City/State/[facility] Co de Phone Number [facility] [address] [place] [phone] * Pap Smear (06/22/2023 3:20 PM EDT) 06/22/2023 3:20 PM EDT 06/27/2023 11:15 AM EDT Narrative [facility] - 07/11/2023 2:16 PM EDT ----- ------- Name: Jayne Lane ?Age/Sex: 68/F ? : 1955 Unit#: [id number] ?? Attend Dr: Opal Carranza CNM ?Re06/22/23 ?Status: DEP REF ? Location: HO.LNP ?Disch: ? ----- ------- SPEC : [id number] ? RECD: 06/27/235 ? STATUS: ??SOUT ? REQ NUM: [id number] ? CYRUS: 06/22/23-1520 ? SUBM DR: Opal [...] 66, 68) ? HPV testing performed by [facility] [place]. ??See reference laboratory ?? portion of the EMR for entire report. 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 Material Received ?? ThinPrep-Cervical Copies To: ?? James Trimble MD ?? [address] ?? [place] [address] ?? [phone] ?? Opal Carranza CNM ?? [address] [facility] ?? [place] [address] ?? [phone] ----- ------- Signed (signature on file) Ev Ilana 07/11/23 1416 ? ----- ------- ? END OF REPORT ? us Generic External Data Provider LAB CYTOLOGY RELL SALAZAR Final Result [facility] [address] [place] [address] [phone] * BI Mammogram Screening Tomosynthesis Bilateral (02/22/2023 8:20 AM EST) Anatomical Region Laterality Modality Breast Bilateral Mammography 02/22/2023 8:20 AM EST Narrative 03/07/2023 9:08 PM EST ? [facility] ? [address] ?[place], [place] [address] ? Mammography Report ? Signed ? Patient: Cappa,Jayne ?MR#: [id number] ? : 1955 ?Acct:[id number] ? Age/Sex: 67 / F ?ADM Date: 02/22/ ? Loc: HO.MAMMO ? Attending Dr: James Trimble MD ? Ordering Physician: Loraine Yadav MD ?Results: 1Ne ?? gative ? Date of Service: 02/22/ ?Follow Up: 1 Year From Orig ?? inal Mammogram ? Procedure(s): MM tomosynthesis screening BI ?? Accession Number(s): [id number] ? cc: James Trimble MD; Loraine Yadav [...] 03/07/232103 ? DD/ 0820 ? TD/TT: ? Receiver Stocker: ? Procedure Note Ofelia, Viridiana - 03/07/2023 [facility] [address] [place] [address] Mammography Report Signed Patient: Jayne LaneMR#: [id number] : 6Acct:[id number] Age/Sex: 67 / FADM Date: 02/22/23 Loc: HO.CAROLINEO Attending Dr: James Trimble MD Ordering Physician: Loraine Yadavesults: 1Ne gative Date of Service: 02/22/23Follow Up: 1 Year From Orig inal Mammogram Procedure(s): MM tomosynthesis screening BI Accession Number(s): [id number] cc: James Trimble MD; Loraine Yadav MD [...] Nakita Matthew MD in OV> 03/07/232103 DD/ TD/TT: Receiver Stocker: [facility] External Provider IMG BI PROCEDURES Final Result * Hm Colonoscopy (07/11/2022 3:53 PM EDT) Colonoscopy Normal Normal Comment:Tubular adenoma Historical Provider HEALTH MAINTENANCE Final Result * HPV E6/E7 RFLX DANIAL 16 18/45 (01/17/2022 4:22 PM EST) HPV 16 RNA TNP CONVERTED [facility] HPV 18/45 RNA TNP CONVER [employer] HPV E6 E7 ADD TNP CONVER [employer] HPV mRNA E6/E7 rflx Not Detected Not Detected CONVERTED [employer] Comment: Methodology: Rag Cutting Machine Feeder-Mediated Amplification This assay detects E6/E7 viral messenger RNA (mRNA) from 14 high-risk HPV types (16,18,31,33,35,39,45,51,52,56,58,59,66,68). Cervical sources are required for HPV testing. If a vaginal source from a patient who has had a total hysterectomy with removal of cervix was submitted, please contact the testing laboratory for alternative testing options. For additional information, please refer to http://education.[employer]/faq/MFV387f5 (This link if provided for information/ educational purposes only.) THIS TEST WAS PERFORMED AT: [facility] [address] [place] [address] [address] [place], [place] ??[phone] KEVEN CHAND MD 01/17/2022 4:22 PM EST us Opal Carranza HISTORICAL/NON ORDERABLE LABS Fi nal Result CONVERTED [facility] from Last 3 Months or Most Recently Relevant to Health Maintenance Insurance [facility] STANDARD FORMERLY [facility] OPTIONS (HMO D-SNP) Care Teams Director Of Public Works Relationship Specialty Start Date End Date James Flores MD [address] [place] [address] PCP - General Internal Medicine 02/04/14
--- OUTSIDE RECORDS SUMMARY | 2024-07-25 08:32 | XMS_ITS | Encounter Summary ---
Author Organization [employer] Address [address] [facility] [facility] [address] 7[address] [place] [address] Care Team Providers Care Multimedia Engineer Name Role Phone James Flores MD Primary Care Provide r Reason for Visit * Reason Comments Med Refill Encounter Details Date Type Department Care Team ([facility] st Contact Info) Description 05/10/2024 Refill [facility] [address] [place] [address] Coco Montiel NP [address] [place] [address] Mild intermittent asthma without complication Social History [...] Description 07/26/2024 9:30 AM EDT Clinical Support [facility] [address] [place] [phone] 09/03/2024 11:15 AM EDT Office Visit [facility] [address] [place] [phone] James Flores MD [address] [place] [phone] documented as of this encounter Visit Diagnoses Diagnosis Mild intermittent asthma without complication documented in this encounter Additional Health Concerns Assessment Noted Time PHQ-9 Depression Total Score: 0 01/30/20 24 10:37 AM EST documented as of this encounter Care Teams Multimedia Engineer Relationship Specialty Start Date End Date James Flores MD [address] [place] [phone] PCP - General Internal Medicine 02/04/14 documented as of this encounter
--- OUTSIDE RECORDS SUMMARY | 2024-07-25 08:32 | XMS_ITS | Encounter Summary ---
Author Organization [employer] Address [address] [facility] 7t [place] [address] Care Team Providers Care Human Factors Scientist Name Role Phone James Flores MD Primary Care Provide r Encounter Details Date Type Department Care Team (Late st Contact Info) Description 05/11/2022 Telephone [facility] [address] [place] [address] [phone] James Flores MD [address] [place] [address] [phone] Social History Tobacco Use Types Packs/Day Years [...] Description 07/26/2024 9:30 AM EDT Clinical Support [address] [phone] 09/03/2024 11:15 AM EDT Office Visit [facility] [address] [place] [address] [phone] James Flores MD [address] [place] [address] [phone] documented as of this encounter Visit Diagnoses Not on filedocumented in this encounter Care Teams Human Factors Scientist Relationship Specialty Start Date End Date James Flores MD [address] [place] [phone] PCP - General Internal Medicine 02/04/14 documented as of this encounter
--- OUTSIDE RECORDS SUMMARY | 2024-07-25 08:32 | XMS_ITS | Encounter Summary ---
Author Organization [employer] Address [address] [facility] 7t [place] [address] Care Team Providers Care Director Financial Systems Name Role Phone James Flores MD Primary Care Provide r Reason for Visit * Reason Comments Med Refill Encounter Details Date Type Department Care Team ([facility] st Contact Info) Description 07/23/2024 Refill [facility] [address] [place] [address] James Flores MD [address] [place] [address] Type 2 diabetes mellitus without complication, with long-term current use of insulin ([facility]) Social History Tobacco Use Types Packs/Day Years [...] Description 07/26/2024 9:30 AM EDT Clinical Support [facility] [address] [place] [phone] 09/03/2024 11:15 AM EDT Office Visit [facility] [address] [place] [phone] James Flores MD [address] [place] [phone] documented as of this encounter Visit Diagnoses Diagnosis Type 2 diabetes mellitus without complication, with long-term current use of insulin ([facility]) documented in this encounter Additional Health Concerns Assessment Noted Time PHQ-9 Depression Total Score: 0 01/30/20 24 10:37 AM EST documented as of this encounter Care Teams Director Financial Systems Relationship Specialty Start Date End Date James Flores MD [address] [place] [phone] PCP - General Internal Medicine 02/04/14 documented as of this encounter
--- OUTSIDE RECORDS SUMMARY | 2024-07-25 08:32 | XMS_ITS | Encounter Summary ---
Author Organization [employer] Address [address] 7[address] [place] [address] Care Team Providers Care Manager Technical Support Name Role Phone James Flores MD Primary Care Provide r Encounter Details Date Type Department Care Team ([facility] st Contact Info) Description 07/22/2024 Orders Only [facility] [address] [place] [address] Ludwin Sylvester MD [address] [place] [address] Social History Tobacco Use Types Packs/Day Years [...] Description 07/26/2024 9:30 AM EDT Clinical Support [facility] [address] [place] [phone] 09/03/2024 11:15 AM EDT Office Visit [facility] [address] [place] [address] James Flores MD [address] [place] [phone] documented as of this encounter Visit Diagnoses Not on filedocumented in this encounter Additional Health Concerns Assessment Noted Time PHQ-9 Depression Total Score: 0 01/30/20 10:37 AM EST documented as of this encounter Care Teams Manager Technical Support Relationship Specialty Start Date End Date James Flores MD [address] [place] [phone] PCP - General Internal Medicine 02/04/14 documented as of this encounter
--- OUTSIDE RECORDS SUMMARY | 2024-07-25 08:32 | XMS_ITS | Encounter Summary ---
Author Organization [employer] Address [address] [facility] 7t [place] [address] Care Team Providers Care Aircraft Engine Dismantler Name Role Phone James Flores MD Primary Care Provide r Reason for Referral * Consultation (Routine) - Pending Review Specialty Diagnoses / Procedures Referred By Contac t Referred To Contact Physical Therapy Diagnoses Primary osteoarthritis of left knee Lidya Pinedo MD [address] [place] [phone] Phone: tel: fax: Referral ID Status Reason Start Date Expiration Date Visits Requested Visits Authorized [id number] Pending Review Specialty Services Required 07/24/2024 07/24/2025 1 1 Reason for Visit * Reason Comments Leg Pain Encounter Details Date Type Department Care Team (Latest Contact Info) Description 07/24/2024 2:40 PM EDT Office Visit [facility] [address] [place] [address] [phone] Lidya Pinedo MD [address] [place], [place] [phone] Primary osteoarthritis of left knee (Primary Dx) Social History Tobacco Use Types Packs/Day Years [...] Mass Index 37.2 07/24/2024 2:08 PM EDT documented in this encounter Progress Notes * Lidya Pinedo MD - 07/24/2024 2:40 PM EDT SUBJECTIVE: Jayne Lane is a 69 y.o. year old female who presents for Walk In Center/leg pain. Denies recent illness, injury, or hospitalization. Acute Concerns: Patient complaining of worsening right knee edema, pain and limited ambulation x 4 days. No history of recent falls or accidents. She has history of recurrent bilateral knee pain that resolves within 1-2 days, last time was more than 5 years ago. She does not have any fever, shortness of breath, rash and she is taking all her medications. She lives on two-story house and the bedrooms are on the second floor Social History Social History Narrative Not on file Patient Active Problem List Diagnosis Coronary artery disease History of CVA (cerebrovascular accident) Chronic anemia CKD stage 3 secondary to diabetes ([facility]) Cobalamin deficiency Hyperlipidemia Hypertension Mild persistent asthma Severe obesity ([facility]) Obstructive sleep apnea syndrome Type 2 diabetes mellitus with stage 3a chronic kidney disease ([facility]) Preventative health care Chronic constipation Diverticulosis of colon GERD (gastroesophageal reflux disease) Goiter Hemorrhoids Hypercalcemia Hyperkalemia Non-rheumatic aortic stenosis Osteoporosis Poor historian Tubular adenoma Vitamin D deficiency Tinea corporis Acute pain of both knees Temporal arteritis ([facility]) Primary osteoarthritis of left knee No family history on file. Review of Systems Constitutional: Negative for chills, fatigue and fever. HENT: Negative for congestion, ear pain, nosebleeds, rhinorrhea, sinus pressure, sore throat and trouble swallowing. Eyes: Negative for pain and discharge. Respiratory: Negative for cough, chest tightness and shortness of breath. Cardiovascular: Negative for chest pain, palpitations and leg swelling. Gastrointestinal: Negative for abdominal pain, blood in stool, constipation, diarrhea and nausea. Endocrine: Negative for polydipsia and polyuria. Genitourinary: Negative for dysuria, frequency, genital sores, pelvic pain and vaginal discharge. Musculoskeletal: Positive for arthralgias and gait problem. Negative for back pain and neck pain. Skin: Negative for rash. Allergic/Immunologic: Negative for environmental allergies. Neurological: Negative for dizziness, seizures, weakness, light-headedness and headaches. Hematological: Negative for adenopathy. Psychiatric/Behavioral: Negative for agitation, behavioral problems, self-injury and suicidal ideas. OBJECTIVE: Vitals: 07/24/24 1408 BP: (!) 140/70 Pulse: 77 Resp: 16 Temp: 96.6 ??F (35.9 ??C) SpO2: 98% Physical Exam HENT: Right Ear: Tympanic membrane and ear canal normal. Left Ear: Tympanic membrane and ear canal normal. Mouth/Throat: Mouth: Mucous membranes are moist. Pharynx: No oropharyngeal exudate or posterior oropharyngeal erythema. Eyes: Pupils: Pupils are equal, round, and reactive to light. Cardiovascular: Rate and Rhythm: Regular rhythm. Pulses: Normal pulses. Heart sounds: Normal heart sounds. No murmur heard. Pulmonary: Breath sounds: Normal breath sounds. Abdominal: General: Bowel sounds are normal. Palpations: Abdomen is soft. Tenderness: There is no abdominal tenderness. Musculoskeletal: Cervical back: Neck supple. Lumbar back: Tenderness present. Right hip: Tenderness present. Left hip: Tenderness present. Right knee: Effusion (Medial aspect), bony tenderness and crepitus present. Decreased range of motion. Tenderness present over the medial joint line, ACL, PCL and patellar tendon. Left knee: Crepitus present. Skin: General: Skin is warm. Neurological: General: No focal deficit present. Mental Status: She is alert and oriented to person, place, and time. Psychiatric: Mood and Affect: Mood normal. Behavior: Behavior normal. Problem List Items Addressed This Visit Primary osteoarthritis of left knee - Primary Patient has an effusion, recommended rest, ice to affected area 2-3 times per day, compression witha knee brace, and elevation of the leg 2 or 3 times per day. I gave her cane for ambulation to prevent falls and to decrease weightbearing on affected knee. Toradol injection today, can use Tylenol twice daily as needed breakthrough pain and start meloxicam daily tomorrow x 1 to 2 weeks Refer to PT Order x-rays of the right knee Relevant Medications ketorolac (Toradol) injection 30 mg (Completed) meloxicam (Mobic) 15 MG tablet acetaminophen (Tylenol) 500 MG tablet Other Relevant Orders XR Knee 3 Views Right (Completed) Referral to Physical Therapy Follow Up: Current Outpatient Medications on File Prior to Visit Medication Sig Dispense Refill albuterol (2.5 MG/3ML) 0.083% nebulizer solution Take 3 mL by nebulization if needed in the morning, at noon, in the evening, and at bedtime (use 4-6 times a day as needed). 90 mL 3 Albuterol Sulfate 108 (90 Base) MCG/ACT aerosol powder Inhale 2 puffs by mouth every 4 to 6 hours as needed 8.5 each 3 Alcohol Swabs (Alcohol Prep) 70 % pads USE DIRECTED 100 each 11 amLODIPine (Norvasc) 5 MG tablet TAKE 1 TABLET BY MOUTH EVERY EVENING 30 tablet 5 atorvastatin (Lipitor) 80 MG tablet TAKE 1 TABLET BY MOUTH AT BEDTIME 30 tablet 5 BD Pen Needle Nneka U/F 32G X 4 MM misc USE DIRECTED FOUR TIMES DAILY 100 each 6 bisacodyl (Dulcolax) 10 MG suppository INSERT 1 SUPPOSITORY RECTALLY ONCE DAILY NEEDED FOR CONSTIPATION Blood Pressure kit 1 each 2 times daily. 1 kit 0 Calcium Citrate-Vitamin D (Mineral Calcium/Vitamin D) 200-6.25 MG-MCG tablet TAKE 2 TABLETS BY MOUTHTWICE DAILY IN THE MORNING AND EVENING carbamide peroxide (Debrox) 6.5 % otic solution Administer 5 drops into each ear 2 times daily for 4 days. 15 mL 0 clopidogrel (Plavix) 75 MG tablet TAKE 1 TABLET BY MOUTH EVERY EVENING 90 tablet 3 Continuous Glucose Labor Standards Director (FreeStyle Collin 3 Empire) device USE DIRECTED Continuous Glucose Sensor (FreeStyle Collin 3 Sensor) misc USE DIRECTED. CHANGE EVERY 14 DAYS Diclofenac Sodium 1 % gel Apply 4 g topically if needed in the morning, at noon, in the evening, and at bedtime (pain). 100 g 0 docusate sodium (Colace) 100 MG capsule TAKE 2 CAPSULES BY MOUTH EVERY DAY AT BEDTIME ezetimibe (Zetia) 10 MG tablet Take 10 mg by mouth in the morning. Ferrous Sulfate (iron) 325 (65 Fe) MG tablet TAKE 1 TABLET BY MOUTH THREE TIMES DAILY IN THE MORNING, AT NOON, AND IN THE EVENING 90 tablet 1 HumaLOG KWIKPEN 100 UNIT/ML injection INJECT 6 TO 16 UNITS SUBCUTANEOUSLY DIRECTED PER SLIDING SCALE BLOOD SUGAR 150-200 = 6 UNITS, 201-250 = 10U, 251-300 = 12U, 301-350 = 14U, > 351 = 16U 15 mL 3 hydrOXYzine HCl (Atarax) 25 MG tablet Take 0.5 tablets (12.5 mg) by mouth every 8 (eight) hours if needed for anxiety. May take 1/2 to 1 tablet every 8 hours prn 30 tablet 0 insulin glargine (Lantus SoloStar) 100 UNIT/ML pen INJECT 35 UNITS SUBCUTANEOUSLY ONCE DAILY 15 mL 2 ketorolac (Acular) 0.5 % ophthalmic solution INSTILL 1 DROP TO AFFECTED EYE(S) TWICE DAILY START 2 DAYS BEFORE SURGERY Lancets misc loratadine (Claritin) 10 MG tablet TAKE 1 TABLET BY MOUTH EVERY MORNING 30 tablet 5 metoprolol tartrate (Lopressor) 50 MG tablet TAKE 1 TABLET BY MOUTH TWICE DAILY IN THE MORNING AND IN THE EVENING WITH FOOD 180 tablet 1 nystatin (Mycostatin) 418423 UNIT/GM powder Apply topically 2 times daily. 30 g 3 Natrix SeparationsTouch Verio test strip USE DIRECTED Ozempic, 0.25 or 0.5 MG/DOSE, 2 MG/3ML solution pen-injector INJECT 0.25 MG SUBCUTANEOUSLY ONCE PERWEEK FOR 28 DAYS pioglitazone (Actos) 30 MG tablet Take 30 mg by mouth in the morning. polycarbophil (Fiber-Lax) 625 MG tablet Take 1,250 mg by mouth. polyethylene glycol, PEG, 3350 (Glycolax) 17 GM/SCOOP powder TAKE 17 GM MIXED IN 8 OUNCES OF WATER,COFFEE OR TEA ONCE DAILY TAKE AT BEDTIME predniSONE (Deltasone) 20 MG tablet Take 40 mg by mouth at bedtime. senna (Senokot) 8.6 MG tablet Take 1 tablet (8.6 mg) by mouth if needed at bedtime for constipation. 120 tablet 0 sodium zirconium cyclosilicate (Lokelma) 5 g packet MIX 1 PACKET WITH WATER AND DRINK TWICE A WEEK DIRECTED Vitamin D High Potency 25 MCG (1000 UT) capsule Take 25 mcg by mouth in the morning. [DISCONTINUED] acetaminophen (Tylenol) 500 MG tablet Take 2 tablets (1,000 mg) by mouth every 6 (six) hours if needed for moderate pain or fever for up to 25 doses. 50 tablet 0 [DISCONTINUED] HumaLOG KWIKPEN 100 UNIT/ML injection INJECT 6 TO 16 UNITS SUBCUTANEOUSLY DIRECTED PER SLIDING SCALE BLOOD SUGAR 150-200 = 6 UNITS, 201- 250 = 10U, 251-300 = 12U, 301-350 = 14U, >351 = 16U 15 mL 3 [DISCONTINUED] Pentips 32G X 4 MM misc USE DIRECTED FOUR TIMES DAILY 100 each 6 No current facility-administered medications on file prior to visit. documented in this encounter Miscellaneous Notes * Assessment & Plan Note - Lidya Pinedo MD - 07/24/2024 2:35 PM EDT Associated Problem(s): Primary osteoarthritis of left knee Patient has an effusion, recommended rest, ice to affected area 2-3 times per day, compression witha knee brace, and elevation of the leg 2 or 3 times per day. I gave her cane for ambulation to prevent falls and to decrease weightbearing on affected knee. Toradol injection today, can use Tylenol twice daily as needed breakthrough pain and start meloxicam daily tomorrow x 1 to 2 weeks Refer to PT Order x-rays of the right knee documented in this encounter Plan of Treatment Upcoming Encounters Date Type Department Care Team (Late st Contact Info) Description 07/26/2024 9:30 AM EDT Clinical Support [address] [address] 09/03/2024 11:15 AM EDT Office Visit [facility] [address] [place] [phone] James Flores MD [address] [place] [phone] Scheduled Referrals Name Type Priority Associated Diagnoses Orde r Schedule Referral to Physical Therapy Outpatient Referral Routine Primary osteoarthritis of left knee Expected: 07/24/2024 (Approximate), Expires: 07/24/2025 documented as of this encounter Procedures Procedure Name Priority Date/Time Associated Diagnosis Comments XR KNEE 3 VIEWS RIGHT Routine 07/24/2024 2:51 PM EDT Primary osteoarthritis of left knee documented in this encounter Results * XR Knee 3 Views Right (07/24/2024 2:51 PM EDT) Anatomical Region Laterality Modality Lower Extremities, Knee Right Radiogra phic Imaging 07/24/2024 2:51 PM EDT Narrative 07/24/2024 3:34 PM EDT ?[facility] ?[address] ?[place] [address] ?XRay Report ? Signed ? Patient: Cappa,Jayne ?MR#: [id number] ? : 1955 ?Acct:[id number] ? Age/Sex: 69 / F ?ADM Date: 07/24/24 ? Loc: HO.HHCX ? Attending Dr: Lidya Pinedo MD ? Ordering Physician: Lidya Pinedo MD ?? Date of Service: 07/24/24 ?? Procedure(s): XR knee RT 3V ?? Accession Number(s): [id number] ? cc: Lidya Pinedo MD ? EXAMINATION: [...] ??Zev Mukherjee MD ??07/24/2024 03:32 PM EDT ?? RP ? Dictated By: ?Zev Mukherjee MD ? Signed By: ?<Electronically signed by Zev Mukherjee MD in OV> ?07/24/24 1532 ? DD/ 1451 ? TD/TT: 07/24/24 1500 ? Passenger Solicitor: ? Procedure Note Viridiana Gilbert - 07/24/[address] [place] [address] XRay Report Signed Patient: Jayne LaneMR#: [id number] : 6Acct:[id number] Age/Sex: 69 / FADM Date: 07/24/24 Loc: HO.HHCX Attending Dr: Lidya Pinedo MD Ordering Physician: Lidya Pinedo MD Date of Service: 07/24/24 Procedure(s): XR knee RT 3V Accession Number(s): [id number] cc: Lidya Pinedo MD EXAMINATION: XR KNEE 3 VIEWS RIGHT [...] Zev Mukherjee MD 07/24/2024 03:32 PM EDT Dictated By: Zev Mukherjee MD Signed By: <Electronically signed by Zev Mukherjee MD in OV> 07/24/24 1532 DD/ 1451 TD/TT: 07/24/24 1500 Passenger Solicitor: Lidya Pinedo MD IMG XR PROCEDURES Final Result documented in this encounter Visit Diagnoses Diagnosis Primary osteoarthritis of left knee- Primary documented in this encounter Administered Medications Inactive Administered Medications - up to 3 most recent administrations Medication Order MAR Action Action Date Dose Rate Site ketorolac (Toradol) injection 30 mg 30 mg, Intramuscular, Once, On Mon07/24/24 at 1430, For 1 doseIndications:Primary osteoarthritis of left knee Given 07/24/2024 2:30 PM EDT 30 mg Right Upper Buttock documented in this encounter Additional Health Concerns Assessment Noted Time PHQ-9 Depression Total Score: 0 01/30/20 24 10:37 AM EST documented as of this encounter Care Teams Aircraft Engine Dismantler Relationship Specialty Start Date End Date James Flores MD [address] [place] [address] PCP - General Internal Medicine 02/04/14 documented as of this encounter
--- OUTSIDE RECORDS SUMMARY | 2024-07-25 08:32 | XMS_ITS | Encounter Summary ---
Author Organization [employer] Address [address] [facility] 7t [place] [address] Care Team Providers Care Traveling Representative Name Role Phone James Flores MD Primary Care Provide r Reason for Visit * Reason Comments Med Refill Encounter Details Date Type Department Care Team ([facility] st Contact Info) Description 08/27/2023 Refill [facility] [address] [place] [address] Name, MD Loki [address] [place] [address] Gastroesophageal reflux disease without esophagitis Social History [...] the past 12 months, has t he [employer],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 threatened to shut [...] Description 07/26/2024 9:30 AM EDT Clinical Support [facility] [address] [place] [phone] 09/03/2024 11:15 AM EDT Office Visit [facility] [address] [place] [phone] James Flores MD [address] [place] [phone] documented as of this encounter Visit Diagnoses Diagnosis Gastroesophageal reflux disease without esophagitis Esophageal reflux documented in this encounter Care Teams Traveling Representative Relationship Specialty Start Date End Date James Flores MD [address] [place] [phone] PCP - General Internal Medicine 02/04/14 documented as of this encounter
--- OUTSIDE RECORDS SUMMARY | 2024-07-25 08:32 | XMS_ITS | Encounter Summary ---
Author Organization [employer] Address [address] [facility] 7t [place] [address] Care Team Providers Care Director Global Name Role Phone James Flores MD Primary Care Provide r Reason for Visit * Reason Onset Date Comments Pre op 01/11/2024 Encounter Details Date Type Department Care Team ([facility] st Contact Info) Description 01/11/2024 Telephone [facility] [address] [place] [address] James Flores MD [address] [place], [place] [phone] Pre op Social History Tobacco Use Types [...] [facility] Surgeon's office number: [phone] Surgeon's office fax number: [phone] Contact name (person you spoke with): Marcelo Last office note from surgeon requested: No Pt scheduled for Pre op on 02/07/24 with Pro documented in this encounter Plan of Treatment Upcoming Encounters Date Type Department Care Team (Late st Contact Info) Description 07/26/2024 9:30 AM EDT Clinical Support [facility] [address] [place] [address] 09/03/2024 11:15 AM EDT Office Visit [facility] [address] [place] [address] James Flores MD [address] [place] [address] documented as of this encounter Visit Diagnoses Not on filedocumented in this encounter Care Teams Director Global Relationship Specialty Start Date End Date James Flores MD [address] [place] [address] PCP - General Internal Medicine 02/04/14 documented as of this encounter
--- OUTSIDE RECORDS SUMMARY | 2024-07-25 08:32 | XMS_ITS | Encounter Summary ---
Author Organization [employer] Address 75 [facility] 7t [place] [address] Care Team Providers Care Tennis Director Name Role Phone James Flores MD Primary Care Provide r Encounter Details Date Type Department Care Team ([facility] Contact Info) Description 03/17/2022 Orders Only [facility] MED & PEDS [address] [place] [address] Jaja Hammond LPN Social History Tobacco Use [...] Upcoming Encounters Date Type Department Care Team ([facility] Contact Info) Description 07/26/2024 9:30 AM EDT Clinical Support [facility] MEDICINE [address] [place] [address] [phone] 09/03/2024 11:15 AM EDT Office Visit [address] [phone] James Flores MD [address] [place] [address] documented as of this encounter Visit Diagnoses Not on filedocumented in this encounter Care Teams Tennis Director Relationship Specialty Start Date End Date James Flores MD [address] [place] [address] PCP - General Internal Medicine 02/04/14 documented as of this encounter
--- OUTSIDE RECORDS SUMMARY | 2024-07-25 08:32 | XMS_ITS | Encounter Summary ---
Author Organization [employer] Address 75 [facility] 7t [place] [address] Care Team Providers Care Children'S Author Name Role Phone James Flores MD Primary Care Provide r Reason for Visit * Reason Onset Date Comments Durable Medical Equipment 09/27/2023 Encounter Details Date Type Department Care Team (Late st Contact Info) Description 09/27/2023 Telephone [facility] [address] [place] [address] James Flores MD [address] [place] [address] Durable Medical Equipment Social History Tobacco Use [...] 1 flip pillow DME Please contact at [phone] * Telephone Encounter - Fernando Christie - 09/27/2023 2:40 PM EDT Tc from pt 10 in 1 flip pillow due to issues sleeping. Pt would like script to be faxed to [facility]. If any questions you can contact pt at [phone]. documented in this encounter Plan of Treatment Upcoming Encounters Date Type Department Care Team ([facility] st Contact Info) Description 07/26/2024 9:30 AM EDT Clinical Support [facility] [address] [place] [address] 09/03/2024 11:15 AM EDT Office Visit [facility] [address] [place] [address] James Flores MD [address] [place] [address] documented as of this encounter Visit Diagnoses Not on filedocumented in this encounter Care Teams Children'S Author Relationship Specialty Start Date End Date James Flores MD [address] [place] [address] PCP - General Internal Medicine 02/04/14 documented as of this encounter
--- OUTSIDE RECORDS SUMMARY | 2024-07-25 08:32 | XMS_ITS | Encounter Summary ---
Author Organization [employer] Address 75 [facility] 7t [place] [address] Care Team Providers Care Wind Turbine Mechanical Engineer Name Role Phone James Flores MD Primary Care Provide r Reason for Visit * Reason Onset Date Comments Nurse Triage 03/18/2024 Encounter Details Date Type Department Care Team ([facility] st Contact Info) Description 03/18/2024 Telephone [facility] MED[facility]INE [address] [place] [address] James Flores MD [address] [place], [place] [phone] Nurse Triage Social History Tobacco Use Types [...] 03/18/2024 11:50 AM EST Triage call with [facility] [place] [id number]. Pt reports continual coughing with cold symptoms. Pt was seen in [facility] 02/29/24 for cough and exacerbation of [...] 9:30 AM EDT Clinical Support [facility] MED[facility]INE [address] [place] [address] 09/03/2024 11:15 AM EDT Office Visit [facility] [address] [place] [address] James Flores MD [address] [place] [address] documented as of this encounter Visit Diagnoses Not on filedocumented in this encounter Additional Health Concerns Assessment Noted Time PHQ-9 Depression Total Score: 0 01/30/20 24 10:37 AM EST documented as of this encounter Care Teams Wind Turbine Mechanical Engineer Relationship Specialty Start Date End Date James Flores MD [address] [place] [address] PCP - General Internal Medicine 02/04/14 documented as of this encounter
--- OUTSIDE RECORDS SUMMARY | 2024-07-25 08:32 | XMS_ITS | Encounter Summary ---
Author Organization [employer] Address [address] [facility] [address] 7t [place] [address] Care Team Providers Care Hot Dimpling Machine Operator Name Role Phone James Flores MD Primary Care Provide r Encounter Details Date Type Department Care Team ([facility] st Contact Info) Description 07/23/2024 11:00 AM EDT Telemedicine [facility] MEDICINE [address] [place] [address] James Flores MD 230 [place], [place] [phone] Goiter (Primary Dx); Temporal arteritis (CMS/HCC); Acute pain of both knees Social History Tobacco Use Types Packs/Day Years [...] as of this encounter Progress Notes * James Ashraf MD - 07/23/2024 11:00 AM EDT SUBJECTIVE Jayne Lane is a 69 y.o. female who presents for No chief complaint on file.. Pt here for a televisit regarding recent diagnosis of Temporal arteritis Review of Systems Constitutional: Negative for fever. HENT: Negative for sore throat. Respiratory: Negative for cough and shortness of breath. Cardiovascular: Negative for chest pain. Gastrointestinal: Negative for abdominal pain. Neurological: Negative for headaches. Allergies Allergen Reactions Amoxicillin Chlorothiazide Ciprofloxacin Codeine Diphenhydramine Fosinopril Other reaction(s): elevated potassium Nitrofurantoin Oxycodone Oxycodone-Acetaminophen Sulfa Antibiotics Vancomycin Morphine Palpitations OBJECTIVE There were no vitals filed for this visit. Physical Exam Vitals reviewed. Constitutional: Appearance: Normal [...] Assessment/Plan Problem List Items Addressed This Visit Goiter - Primary Pt had a HEAD AND NECK CTA done on 06/10/2024 That showed a Thyroid nodule along the isthmus measuring 1.7 cm. No cervical mass or fluid collection. Thyroid US done 07/12/2024 that showed: Stable 3 mm cystic nodule at the lower pole of the right thyroid lobe. This represents a TR1 noduleand no follow-up is required. Otherwise unremarkable thyroid ultrasound. Temporal arteritis (CMS/HCC) Patient seen by Dr Tyree rivera on: C/o intractable headache, TA was in his differential, Pt's ESR came back high at: Pt was treated with Prednisone and referred for a TA biopsy that patient declined and Rheumatology ( pt has not been seen due to appointments being to far out. Pt did see an Jewelry Mold Maker that did not see any abnormalitites and [...] Pt already has appointment with me 09/03/2024 Relevant Orders Sed Rate by Modified Westergren C-reactive Protein Acute pain of both knees Pt with c/o bilateral knee pain Right > Left x 3 weeks. Intensity 10/10 plain films both knees Right knee: IMPRESSION: 1. No radiographic evidence of acute injury to the right knee. 2. Vlsp-re-chxukxwo lateral compartment degenerative changes. Left: IMPRESSION: 1. No radiographic evidence of acute injury to the left knee. 2. Mild degenerative changes of the left knee most pronounced within the medial compartment. Ortho referral placed back in may, pt's daughter tells me its already scheduled in a couple of weeks Future Appointments Date Time Provider Department Center 07/26/2024 9:30 AM [facility] GREEN TEAM NURSE MEDICINE [facility] 09/03/2024 11:15 AM James Ashraf MD MEDICINE [facility] documented in this encounter Miscellaneous Notes * Assessment & Plan Note - James Ashraf MD - 07/23/2024 11:31 AM EDT Associated Problem(s): Acute pain of both knees Pt with c/o bilateral knee pain Right > Left x 3 weeks. Intensity 12/20 plain films both knees Right knee: IMPRESSION: 1. No radiographic evidence of acute injury to the right knee. 2. Lraz-je-jhdpdyti lateral compartment degenerative changes. Left: IMPRESSION: 1. No radiographic evidence of acute injury to the left knee. 2. Mild degenerative changes of the left knee most pronounced within the medial compartment. Ortho referral placed back in may, pt's daughter tells me its already scheduled in a couple of weeks * Assessment & Plan Note - James Ashraf MD - 07/23/2024 11:18 AM EDT Associated Problem(s): Temporal arteritis (CMS/HCC) Patient seen by Dr Tyree rivera on: C/o intractable headache, TA was in his differential, Pt's ESR came back high at: Pt was treated with Prednisone and referred for a TA biopsy that patient declined and Rheumatology ( pt has not been seen due to appointments being to far out. Pt did see an Jewelry Mold Maker that did not see any abnormalitites and [...] Pt already has appointment with me 09/03/2024 * Assessment & Plan Note - James Ashraf MD - 07/23/2024 11:13 AM EDT Associated Problem(s): Goiter Pt had a HEAD AND NECK CTA done on 06/10/2024 That showed a Thyroid nodule along the isthmus measuring 1.7 cm. No cervical mass or fluid collection. Thyroid US done 07/12/2024 that showed: Stable 3 mm cystic nodule at the lower pole of the right thyroid lobe. This represents a TR1 noduleand no follow-up is required. Otherwise unremarkable thyroid ultrasound. documented in this encounter Plan of Treatment Upcoming Encounters Date Type Department Care Team (Late st Contact Info) Description 07/26/2024 9:30 AM EDT Clinical Support [address] [address] 09/03/2024 11:15 AM EDT Office Visit [facility] MEDICINE [address] [place] [address] James Flores MD [address] [place] [address] Scheduled Orders Name Type Priority Associated Diagnoses Orde r Schedule Sed Rate by Modified Westergren Lab Routine Temporal arteritis ([facility]/HCC) Expected: 07/23/2024, Expires: 07/23/2025 C-reactive Protein Lab Routine Temporal arteritis ([facility]/HCC) Expected: 07/23/2024 (Approximate), Expires: 07/23/2025 documented as of this encounter Visit Diagnoses Diagnosis Goiter- Primary Goiter, unspecified Temporal arteritis (CMS/HCC) Giant cell arteritis Acute pain of both knees documented in this encounter Additional Health Concerns Assessment Noted Time PHQ-9 Depression Total Score: 0 01/30/20 24 10:37 AM EST documented as of this encounter Care Teams Hot Dimpling Machine Operator Relationship Specialty Start Date End Date James Flores MD [address] [place] [phone] PCP - General Internal Medicine 02/04/14 documented as of this encounter
--- OUTSIDE RECORDS SUMMARY | 2024-07-25 08:32 | XMS_ITS | Encounter Summary ---
Author Organization [employer] Address 75 [facility] 7t [place] [address] Care Team Providers Care Clinical Studies Specialist Name Role Phone James Flores MD Primary Care Provide r Reason for Visit * Reason Comments Med Refill Encounter Details Date Type Department Care Team ([facility] st Contact Info) Description 07/25/[address] [facility] MEDICINE [address] [place] [address] James Flores MD [address] [place] [address] Chronic anemia Social History Tobacco Use Types [...] 9:30 AM EDT Clinical Support [facility] MEDICINE [address] [place] [address] 09/03/2024 11:15 AM EDT Office Visit [facility] MEDICINE [address] [place] [address] James Flores MD [address] [place] [address] documented as of this encounter Visit Diagnoses Diagnosis Chronic anemia Unspecified anemia documented in this encounter Additional Health Concerns Assessment Noted Time PHQ-9 Depression Total Score: 0 01/30/20 10:37 AM EST documented as of this encounter Care Teams Clinical Studies Specialist Relationship Specialty Start Date End Date James Flores MD [address] [place] [address] PCP - General Internal Medicine 02/04/14 documented as of this encounter
--- OUTSIDE RECORDS SUMMARY | 2024-07-25 08:32 | XMS_ITS | Encounter Summary ---
Author Organization [employer] Address 75 [facility] 7t [place] [address] Care Team Providers Care Movie Critic Name Role Phone James Flores MD Primary Care Provide r Reason for Visit * Reason Comments Med Refill Encounter Details Date Type Department Care Team ([facility] st Contact Info) Description 07/20/2024 Refill [facility] CHC MED & PEDS [address] [place] [address] Ruchi Nolan MD 230 [place] [address] Type 2 diabetes mellitus without complication, with long-term current use of insulin ([facility]) Social History Tobacco Use Types Packs/Day Years [...] Description 07/26/2024 9:30 AM EDT Clinical Support [facility] MEDICINE [address] [place] [address] 09/03/2024 11:15 AM EDT Office Visit [facility] MEDICINE [address] [place] [address] James Flores MD [address] [place] [address] documented as of this encounter Visit Diagnoses Diagnosis Type 2 diabetes mellitus without complication, with long-term current use of insulin ([facility]) documented in this encounter Additional Health Concerns Assessment Noted Time PHQ-9 Depression Total Score: 0 01/30/20 24 10:37 AM EST documented as of this encounter Care Teams Movie Critic Relationship Specialty Start Date End Date James Flores MD [address] [place] [address] PCP - General Internal Medicine 02/04/14 documented as of this encounter
--- OUTSIDE RECORDS SUMMARY | 2024-07-25 08:32 | XMS_ITS | Encounter Summary ---
Author Organization [employer] Address 75 [facility] 7t [place] [address] Care Team Providers Care Food Specialist Name Role Phone James Flores MD Primary Care Provide r Reason for Visit * Reason Comments Med Refill Encounter Details Date Type Department Care Team ([facility] st Contact Info) Description 09/04/2023 Refill [facility] MEDICINE [address] [place] [address] Name, MD Loki [address] [place] [address] Gastroesophageal reflux disease without esophagitis Social History [...] the past 12 months, has t he [employer]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 threatened to shut [...] Description 07/26/2024 9:30 AM EDT Clinical Support [facility] MEDICINE [address] [place] [address] 09/03/2024 11:15 AM EDT Office Visit [facility] MEDICINE [address] [place] [address] James Flores MD [address] [place] [address] documented as of this encounter Visit Diagnoses Diagnosis Gastroesophageal reflux disease without esophagitis Esophageal reflux documented in this encounter Care Teams Food Specialist Relationship Specialty Start Date End Date James Flores MD [address] [place] [address] PCP - General Internal Medicine 02/04/14 documented as of this encounter
--- OUTSIDE RECORDS SUMMARY | 2024-07-25 08:32 | XMS_ITS | Encounter Summary ---
Author Organization [employer] Address [address] [facility] 7t [place] [address] Care Team Providers Care Advertiser Name Role Phone James Flores MD Primary Care Provide r Reason for Visit * Reason Onset Date Comments chartprep 07/22/2024 Encounter Details Date Type Department Care Team (Late st Contact Info) Description 07/22/2024 Telephone [facility] MEDICINE [address] [place] [address] James Flores MD [address] [place] [address] chartprep Social History Tobacco Use Types Packs/Day Years [...] encounter Miscellaneous Notes * Telephone Encounter - Yazmin Ashraf MA - 07/22/2024 2:34 PM EDT ..Chart Prep Labs: done Images: done Vaccines due: Covid Due, RSV in Pharmacy Due, and Shingles in pharmacy Due Referrals: Not Applicable Screenings: Colonoscopy Overdue care gaps: A1C, Glucose, Disability , and Oral Health documented in this encounter Plan of Treatment Upcoming Encounters Date Type Department Care Team (Late st Contact Info) Description 07/26/2024 9:30 AM EDT Clinical Support [facility] MEDICINE [address] [place] [address] 09/03/2024 11:15 AM EDT Office Visit [facility] MED[facility]INE [address] [place] [address] James Flores MD [address] [place] [address] documented as of this encounter Visit Diagnoses Not on filedocumented in this encounter Additional Health Concerns Assessment Noted Time PHQ-9 Depression Total Score: 0 01/30/20 10:37 AM EST documented as of this encounter Care Teams Advertiser Relationship Specialty Start Date End Date James Flores MD [address] [place] [address] PCP - General Internal Medicine 02/04/14 documented as of this encounter
--- OUTSIDE RECORDS SUMMARY | 2024-07-25 08:32 | XMS_ITS | Encounter Summary ---
Author Organization [facility] Address [address] [place] [address] Phone Care Team Providers Care Dumping Machine Operator Name Role Phone James [place] MD Primary Care Provider Unav ailable Reason for Visit * Reason Comments Med Refill Encounter Details Date Type Department Care Team (Late st Contact Info) Description 12/14/2022 Refill [facility] [address] [place] [address] Osmany Leung MD Social History [...] on filedocumented in this encounter Care Teams Dumping Machine Operator Relationship Specialty Start Date End Date James [place] MD PCP - General 03/23/20 documented as of this encounter
--- OUTSIDE RECORDS SUMMARY | 2024-07-25 08:32 | XMS_ITS | Encounter Summary ---
Author Organization [employer] Address [address] [facility] [address] 7t [place] [address] Care Team Providers Care Spa Director/Finance Name Role Phone James Flores MD Primary Care Provide r Reason for Visit * Reason Onset Date Comments Appointment Request 07/22/2024 Encounter Details Date Type Department Care Team ([facility] st Contact Info) Description 07/22/2024 Telephone [facility] MEDICINE [address] [place] [address] Ludwin Sylvester MD 230 [place] [address] Appointment Request Social History Tobacco Use Types Packs/Day Years [...] encounter Miscellaneous Notes * Telephone Encounter - Rneee Nix RN - 07/22/2024 2:30 PM EDT Telephone call to pt's daughter, La Nena who was with the patient. Scheduled pt for bilateral nurse lavage for 07/26/24. Reviewed importance of using ear drops as prescribed before appt. Pt and daughter verbalized understanding, no further questions. * Telephone Encounter - Renee Nix RN - 07/22/2024 2:24 PM EDT ----- Message from Ludwin Sylvester MD sent at 07/22/2024 1:56 PM EDT ----- Please call Jayne or her daughter La Nena to schedule appointment for bilateral ear irrigation. I prescribed Debrox drops today because Joyce said that at 07/10 neurology appointment they were told that Jayne has bilateral cerumen impactions. Scott Clements documented in this encounter Plan of Treatment Upcoming Encounters Date Type Department Care Team (Late st Contact Info) Description 07/26/2024 9:30 AM EDT Clinical Support [address] [address] 09/03/2024 11:15 AM EDT Office Visit [facility] MEDICINE [address] [place] [address] James Flores MD 230 [facility] [place] [address] documented as of this encounter Visit Diagnoses Not on filedocumented in this encounter Additional Health Concerns Assessment Noted Time PHQ-9 Depression Total Score: 0 01/30/20 24 10:37 AM EST documented as of this encounter Care Teams Spa Director/Finance Relationship Specialty Start Date End Date James Flores MD [address] [place] [address] PCP - General Internal Medicine 02/04/14 documented as of this encounter
--- OUTSIDE RECORDS SUMMARY | 2024-07-25 08:32 | XMS_ITS | Encounter Summary ---
Author Organization [employer] Address [address] [facility] [address] 7t [place] [address] Care Team Providers Care Sales And Service Associate Name Role Phone James Flores MD Primary Care Provide r Encounter Details Date Type Department Care Team ([facility] st Contact Info) Description 07/22/2024 Telephone [facility] [address] [place] [address] Ludwin Sylvester MD [address] [place] [address] Social History Tobacco Use Types Packs/Day Years [...] encounter Miscellaneous Notes * Telephone Encounter - Ludwin Sylvester MD - 07/22/2024 3:49 PM EDT I spoke with Jayne's daughter La Nena today about [facility] office visit note. Dr. Castillo's assessment was temporal arteritis. He prescribed prednisone 2.5 mg daily, and mentioned follow-up officevisit in 4 weeks. I gave La Nena their office phone number to schedule the next appointment. States her mother is feeling well, has no headache, and blood glucose levels have been mostly controlled while taking prednisone 2.5 mg daily. Jayne has PCP visit tomorrow. documented in this encounter Plan of Treatment Upcoming Encounters Date Type Department Care Team (Late st Contact Info) Description 07/26/2024 9:30 AM EDT Clinical Support [facility] [address] [place] [address] 09/03/2024 11:15 AM EDT Office Visit [facility] [address] [place] [address] James Flores MD [address] [place] [address] documented as of this encounter Visit Diagnoses Not on filedocumented in this encounter Additional Health Concerns Assessment Noted Time PHQ-9 Depression Total Score: 0 01/30/20 24 10:37 AM EST documented as of this encounter Care Teams Sales And Service Associate Relationship Specialty Start Date End Date James Flores MD [address] [place] [address] PCP - General Internal Medicine 02/04/14 documented as of this encounter
--- OUTSIDE RECORDS SUMMARY | 2024-07-25 08:33 | XMS_ITS | Encounter Summary ---
Author Organization [employer] Address [address] [facility] [address] [place] [address] Care Team Providers Care Slicing Machine Operator Name Role Phone James Flores MD Primary Care Provide r Encounter Details Date Type Department Care Team ([facility] st Contact Info) Description 02/21/2022 Abstract [facility] [address] [place] [address] James Flores MD [address] [place] [address] Social History Tobacco Use Types Packs/Day Years [...] AM EST documented as of this encounter Functional Status * Over the past 2 weeks, how often have you been bothered by any of the following problems? Question Answer Date of Assessment Author Little interest or pleasure in doing things Not at all 02/21/2022 11:08 AM EST Yazmin Ashraf M A Feeling down, depressed, or hopeless Not at all 02/21/2022 11:08 AM Yazmin Whaley M A Patient Health Questionnaire -2 Score 0 02/21/2022 11:08 AM Yazmin Whaley M A documented as of this encounter Plan of Treatment Upcoming Encounters Date Type Department Care Team (Late st Contact Info) Description 07/26/2024 9:30 AM EDT Clinical Support [address] [address] 09/03/2024 11:15 AM EDT Office Visit [address] [address] James Flores MD [address] [place] [id number] documented as of this encounter Procedures Procedure [...] on filedocumented in this encounter Care Teams Slicing Machine Operator Relationship Specialty Start Date End Date James Flores MD [address] [place] [id number] PCP - General Internal Medicine 02/04/14 documented as of this encounter
--- NOTE | 2024-07-25 08:57 | ED_ITS ---
HPI - Fall General Chief Complaint: Fall Stated Complaint: FALL LAST NIGHT KNEE PAIN Time Seen by Provider: 07/25/24 08:38 Source: patient Mode of arrival: EMS Limitations: no limitations History of Present Illness HPI Narrative: This is 69 years old female presented to the emergency department complaining of right in knee pain she stated she fell last night since then she has been unable to ambulate pain is localized in the right knee no other injury MD complaint: fall Onset (ago): day(s) (1) Fall from: standing Fall witnessed: no Place fall occurred: home Loss of consciousness: none Related Data Home Medications ?Medication ?Instructions ?Recorded ?Confirmed albuterol sulfate 90 mcg/actuation 2 puff inhalation Q4-6H PRN 12/24/19 05/15/24 aerosol inhaler (Ventolin HFA) Shortness Of Breath fluticasone propionate 110 1 puff inhalation BID 07/09/20 05/15/24 mcg/actuation HFA aerosol inhaler (Flovent HFA) loratadine 10 mg tablet 10 mg PO QAM 07/09/20 05/15/24 pen needle, diabetic 32 gauge x #50 ea 07/09/20 05/15/24 clopidogrel 75 mg tablet 75 mg PO DAILY 01/27/21 05/15/24 atorvastatin 80 mg tablet (Lipitor) 80 mg PO DAILY 11/01/21 05/15/24 amlodipine 5 mg tablet 5 mg PO DAILY 11/03/21 05/15/24 furosemide 20 mg tablet 20 mg PO DAILY 11/03/21 05/15/24 metoprolol tartrate 50 mg tablet 50 mg PO BID 11/03/21 05/15/24 omeprazole 20 mg capsule,delayed 20 mg PO DAILY 11/03/21 05/15/24 release acetaminophen 500 mg tablet 500 mg PO Q12H PRN Pain 01/28/22 05/15/24 budesonide 90 mcg/actuation breath 2 inh inhalation BID 01/28/22 05/15/24 activated powder inhaler (Pulmicort Flexhaler) cyclobenzaprine 5 mg tablet 5 mg PO TID PRN Pain 01/28/22 05/15/24 ferrous sulfate 325 mg (65 mg 325 mg PO TID 01/28/22 05/15/24 iron) tablet insulin lispro 100 unit/mL See Rx Instructions subcut TID 10/19/23 05/15/24 subcutaneous pen (Humalog KwikPen (U-100) Insulin) insulin glargine 100 unit/mL (3 38 unit subcut BEDTIME 11/22/23 05/15/24 mL) subcutaneous pen (Lantus Solostar U-100 Insulin) Previous Rx's ?Medication ?Instructions ?Recorded blood-glucose meter (OneTouch #1 ea 06/30/21 Verio Flex Meter) baclofen 10 mg tablet 10 mg PO BID muscle spasms #10 tabs 08/08/22 bisacodyl 10 mg rectal suppository 10 mg RI DAILY PRN constipation 03/21/23 (Dulcolax (bisacodyl)) #20 ea polyethylene glycol 3350 17 17 g PO DAILY 30 days #510 grams 03/21/23 gram/dose oral powder (Miralax) blood-glucose,assistant director of admissions,cont #1 ea 07/10/23 (FreeStyle Collin 3 Greenwood) lancets #200 ea 08/28/23 pioglitazone 30 mg tablet (Actos) 30 mg PO DAILY #90 tabs 10/19/23 blood sugar diagnostic (OneTouch #100 strips 11/15/23 Verio test strips) lancets 33 gauge (TRUEplus Lancets) #100 ea 11/20/23 ezetimibe 10 mg tablet 10 mg PO QAM #90 tabs 12/20/23 blood-glucose sensor (FreeStyle #2 kits 01/25/24 Collin 3 Sensor device) calcium 200 mg (as 2 tab PO DAILY #120 tabs 01/29/24 citrate)-vitamin D3 6.25 mcg (250 unit) tablet docusate sodium 100 mg capsule 200 mg (2 x 100 mg) PO BEDTIME #60 03/21/24 caps semaglutide 0.25 mg or 0.5 mg (2 0.5 mg (0.736 mL) subcut QWEEK 4 05/01/24 mg/3 mL) subcutaneous pen injector weeks #3 mL (Ozempic) cholecalciferol (vitamin D3) 25 25 mcg PO QAM #90 caps 05/23/24 mcg (1,000 unit) capsule (Vitamin D3) sennosides 8.6 mg tablet (senna) 8.6 mg PO DAILY PRN for 05/23/24 constipation #30 tabs acetaminophen 650 mg 650 mg PO Q12H PRN pain (scale 06/08/24 tablet,extended release (Tylenol score 1-3) #20 tabs Arthritis Pain) calcium polycarbophil 625 mg 1,250 mg (2 x 625 mg) PO QAM #60 06/24/24 tablet (Fiber-Lax) tabs Allergies Allergy/AdvReac Type Severity Reaction Status Date / Time morphine [Morphine] Allergy Intermediate TACHYCARDIA, Verified 07/25/24 08:07 ANXIETY oxycodone [Percocet] Allergy Intermediate Palpitation Verified 07/25/24 08:07 s prednisone [PREDNISONE] AdvReac Intermediate ANXIETY Verified 07/25/24 08:07 Review of Systems 2 Constitutional: Constitutional: Reports no additional constitutional complaints ENT: Reports system reviewed and no additional complaints, except as documented Cardiovascular: Cardiovascular: Reports no additional cardiovascular complaints PMFSH Past Medical History Attestation statement: The following information was validated with the patient. Medical History Abnormal Pap smear of cervix Osteoporosis Goiter Hyperparathyroidism Hypercalcemia Vitamin D deficiency HLD (hyperlipidemia) HTN (hypertension) T2DM (type 2 diabetes mellitus) On beta anurag at home Chronic constipation Diabetes Anemia GERD (gastroesophageal reflux disease) Sleep apnea Asthma CAD (coronary artery disease) Angina pectoris HTN (hypertension) Surgical History Hx of heart artery stent Hx of cholecystectomy History of esophagogastroduodenoscopy (EGD) H/O colonoscopy Family History Family History Father Liver problem Mother Diabetes Obesity Social History Social History Household Members Other:: With Housing: House Alcohol intake: never Patient Tobacco Use Status: Never used Tobacco Advance Directives: No Advance Directives Information Provided: Yes Do you have a plan to hurt others: No Plan Current occupational status: disabled Sexual orientation: Straight/Heterosexual Gender identity: Female Physical Exam 2 Vital Signs: Vital Signs: Last Vital Signs Temp 99.9 F 07/25/24 11:14 Pulse 87 07/25/24 11:14 Resp 16 07/25/24 11:14 BP 140/69 H 07/25/24 11:14 Pulse Ox 99 07/25/24 11:14 O2 Del Method Room Air 07/25/24 11:14 BMI result Body Mass Index 32.3 No acute distress comfortable in the stretcher Const: General: cooperative Nutritional Appearance: well nourished O rientation/consciousness: patient oriented x3 Limitations: no limitations HEENT: Head: Yes normal to inspection Ears: hearing grossly normal bilaterally General nose exam: Normal external nose present Mouth: Normal oral and palatal mucosa present Throat: Yes posterior oropharynx normal Neck: Neck: Yes normal visual inspection and Yes full ROM Chest: Chest palpation & inspection: normal inspection of the chest Resp: Effort & Inspection: normal respiratory effort Auscultation: clear to auscultation bilaterally Cardio: Jugular venous distension: no JVD Rate: regular rate Rhythm: r egular rhythm GI: Inspection: Yes normal to inspection Palpation (GI): Soft to palpation, not firm and nontender : General: Yes no CVA tenderness Back/Spine/Pelvis: Back: no CVA tenderness Skin: General skin exam: no rashes or lesions noted and elasticity normal R ashes: no rashes Neuro: General: patient oriented x3 Extrem: Other: Examination of the right lower extremity shows tenderness and swelling in the right knee Course Reevaluation(s) Reevaluation #1: X-ray negative the patient was seen by the physical therapist she refused to go to rehab she wants to go home, the daughter agree with that so at this point we will discharge the patient home she understands she is a fall risk Time: 12:14 Medications Administered Discontinued Medications Generic Name Dose Route Start Last Admin Trade Name Freq PRN Reason Stop Dose Admin Acetaminophen 1,000 mg in 100 mls @ 400 mls/hr 07/25/24 08:57 07/25/24 11:16 Ofirmev IV 07/25/24 09:11 Infused ONCE ONE Infusion Ketorolac Tromethamine 15 mg 07/25/24 08:56 07/25/24 09:31 Ketorolac Tromethamine 15 Mg/Ml Vial IVPUSH 07/25/24 08:57 15 mg ONCE ONE Administration Medical Decision Making Medical Decision Making [facility] Narrative: Patient is here after fall main complaint is right knee pain we will obtain imaging Differential Diagnosis Differential Diagnoses: The differential diagnosis associated with the presentation includes Fracture/dislocation/sprain Admission/Observation Consideration of admission/observation: Escalation of care including admission/observation considered Consult Healthcare Provider Management of the patient was discussed with: Hospitalist Lab Data MDM Lab Attestation statement: I reviewed the patient's lab results. 07/25/24 09:31 07/25/24 09:30 Labs: Lab Results 07/25/24 07/25/24 Range/Units 09:30 09:31 WBC 6.4 (4.8-10.8) X10*3/uL RBC 3.43 L (4.20-5.50) X10*6/uL Hgb 10.7 L (12.0-16.0) g/dl Hct 32.8 L (37.0-47.0) % MCV 95.6 (80.0-98.0) fL MCH 31.2 (27.0-33.0) pg MCHC 32.6 (31.0-35.0) g/dl RDW 13.4 (11.0-16.0) % Plt Count 198 (160-400) X10*3/uL MPV 10.3 (9.4-12.3) fL Immature Gran % (Auto) 0.5 H (0.0-0.4) % Neut % (Auto) 67.3 (45-73) % Lymph % (Auto) 25.0 (20-40) % Parmer % (Auto) 5.8 (2-11) % Eos % (Auto) 1.1 (0-4) % Baso % (Auto) 0.3 (0-2) % Lymph # (Auto) 1.6 (1.2-4.9) X10*3/uL Parmer # (Auto) 0.4 (0.1-1.2) X10*3/uL Eos # (Auto) 0.1 (0.0-0.4) X10*3/uL Baso # (Auto) 0.0 (0.0-0.2) X10*3/uL Abs Immat Gran (auto) 0.03 (0.00-0.03) X10*3/uL Absolute Neuts (auto) 4.3 (2.0-8.3) x10*3/uL Absolute Nucleated RBC 0.000 (0.0-0.012) X10*3/uL Nucleated RBC % (auto) 0.0 (0.0-0.2) /100WBC Sodium 144 (135-145) mmol/L Potassium 4.4 (3.3-5.1) mmol/L Chloride 111 H (96-108) mmol/L Carbon Dioxide 26 (22-29) mmol/L Anion Gap 11 L (12-20) BUN 34 H (9-16) mg/dL Creatinine 1.47 H (0.5-1.4) mg/dL Estim Creat Clear Calc 35.4 Estimated GFR 35 Random Glucose 144 H (60-115) mg/dL Calcium 9.8 D (8.4-10.2) mg/dL Total Bilirubin 0.2 (0.0-1.0) mg/dL AST 26 (5-31) U/L ALT 15 (0-31) U/L Alkaline Phosphatase 56 (39-117) U/L Total Protein 6.5 (6.5-8.0) g/dL Albumin 3.8 (3.5-5.0) g/dL Independent Interpretation I performed an independent interpretation of an: Plain X-Ray Interpretation: No fracture Radiology Impression Discussion of test interpretation with radiology: I have reviewed the radiologist's reading. Radiologist Impression: No fracture no dislocation Independent Historian daughter Discharge Plan Discharge Clinical Impression: Acute knee pain Qualifiers: Laterality: right Qualified Code(s): M25.561 - Pain in right knee Patient Disposition: Home, Self-Care Instructions: Knee Pain (ED) Additional Instructions: Follow-up with your primary care physician you declined rehab, take Tylenol 2 tablets extra-strength every 6 hour also continue the meloxicam prescribed to you by the primary care physician Prescriptions: No Action (DME) blood-glucose meter [OneTouch Verio Flex meter] Misc See Rx Instructions .Route Qty: 1 0RF Rx Instructions: As directed acetaminophen 500 mg tablet 500 mg PO Q12H PRN (Reason: Pain) cyclobenzaprine 5 mg tablet 5 mg PO TID PRN (Reason: Pain) ferrous sulfate 325 mg (65 mg iron) tablet 325 mg PO TID Pulmicort Flexhaler 90 mcg/actuation aerosol powdr breath activated 2 inh inhalation BID (DME) FreeStyle Collin 3 Greenwood Misc See Rx Instructions .Route Qty: 1 0RF Rx Instructions: As directed (DME) lancets Misc See Rx Instructions .Route Qty: 200 5RF Rx Instructions: As directed (DME) OneTouch Verio test strips Strip See Rx Instructions .ROUTE .COMPLEX Qty: 100 11RF Dose Instruction: TEST BLOOD SUGAR THREE OR FOUR TIMES DAILY Rx Instructions: TEST BLOOD SUGAR THREE OR FOUR TIMES DAILY (DME) lancets [TRUEplus Lancets] 33 gauge misc See Rx Instructions .Route Qty: 100 11RF Rx Instructions: As directed to test blood sugar 3-4 times a day ezetimibe 10 mg tablet 10 mg PO QAM Qty: 90 3RF (DME) FreeStyle Collin 3 Sensor Device See Rx Instructions .ROUTE .COMPLEX Qty: 2 4RF Dose Instruction: USE DIRECTED. CHANGE EVERY 14 DAYS Rx Instructions: USE DIRECTED. CHANGE EVERY 14 DAYS calcium citrate-vitamin D3 200 mg-6.25 mcg (250 unit) tablet 2 tab PO DAILY Qty: 120 3RF docusate sodium 100 mg capsule 200 mg PO BEDTIME Qty: 60 5RF sennosides [senna] 8.6 mg tablet 8.6 mg PO DAILY PRN (Reason: for constipation) Qty: 30 1RF cholecalciferol (vitamin D3) [Vitamin D3] 25 mcg (1,000 unit) capsule 25 mcg PO QAM Qty: 90 3RF Fiber-Lax 625 mg tablet 1,250 mg PO QAM Qty: 60 3RF albuterol sulfate [Ventolin HFA] 90 mcg/actuation Hfa Aerosol Inhaler 2 puff INHALATION Q4-6H PRN (Reason: Shortness Of Breath) Flovent HFA 110 mcg/actuation HFA aerosol inhaler 1 puff INHALATION BID baclofen 10 mg tablet 10 mg PO BID Qty: 10 0RF acetaminophen [Tylenol Arthritis Pain] 650 mg tablet extended release 650 mg PO Q12H PRN (Reason: pain (scale score 1-3)) Qty: 20 0RF (DME) pen needle, diabetic 32 gauge x /32 needle See Rx Instructions .ROUTE QID Qty: 50 Rx Instructions: As directed loratadine 10 mg tablet 10 mg PO QAM clopidogrel 75 mg tablet 75 mg PO DAILY insulin lispro [Humalog KwikPen Insulin] 100 unit/mL insulin pen See Rx Instructions subcut TID Rx Instructions: Sliding Scale 6-16 subcutaneously 3 times a day; metoprolol tartrate 50 mg tablet 50 mg PO BID amlodipine 5 mg tablet 5 mg PO DAILY omeprazole 20 mg capsule,delayed release(DR/EC) 20 mg PO DAILY furosemide 20 mg tablet 20 mg PO DAILY atorvastatin [Lipitor] 80 mg tablet 80 mg PO DAILY polyethylene glycol 3350 [Miralax] 17 gram/dose powder 17 g PO DAILY 30 Days Qty: 510 6RF Rx Instructions: Take QHS bisacodyl [Dulcolax (bisacodyl)] 10 mg suppository 10 mg RI DAILY PRN (Reason: constipation) Qty: 20 0RF Lantus Solostar U-100 Insulin 100 unit/mL (3 mL) insulin pen 38 unit subcut BEDTIME pioglitazone [Actos] 30 mg tablet 30 mg PO DAILY Qty: 90 3RF Ozempic 0.25 mg or 0.5 mg (2 mg/3 mL) pen injector 0.5 mg subcut QWEEK 28 Days Qty: 3 5RF Referrals: Henrique Jernigan MD [Physician] - 07/29/24 Print Language: Sinhala
[2024-07-25] MEDS: Ketorolac Tromethamine 15 MG/ML VIAL IVPUSH (09:31)
[2024-07-25] MEDS: Acetaminophen 1,000 MG/100 ML PIGGYBACK 400 MG IV (09:32)
[2024-07-25 09:34] VITALS: BP 127/55; PULSE 84; RESP 16; TEMP 36.7; O2SAT 99
[2024-07-25 09:37] LABS: MANUAL DIFF FLAG NO
[2024-07-25 09:39] LABS: Basophils Percent Auto 0.3 % (0-2); Eosinophils Absolute Auto 0.1 X10*3/uL (0.0-0.4); Eosinophils Percent Auto 1.1 % (0-4); Hematocrit 32.8 % (37.0-47.0); Hemoglobin 10.7 g/dl (12.0-16.0); Imm Gran Abs Auto 0.03 X10*3/uL (0.00-0.03); Imm Gran Pct Auto 0.5 % (0.0-0.4); Lymphocytes Absolute Auto 1.6 X10*3/uL (1.2-4.9); Mean Corpuscular HGB Conc 32.6 g/dl (31.0-35.0); Mean Corpuscular Hemoglobin 31.2 pg (27.0-33.0); Mean Corpuscular Volume 95.6 fL (80.0-98.0); Mean Platelet Volume 10.3 fL (9.4-12.3); Monocytes Absolute Auto 0.4 X10*3/uL (0.1-1.2); Monocytes Percent Auto 5.8 % (2-11); Neutrophils Absolute Auto 4.3 x10*3/uL (2.0-8.3); Neutrophils Percent Auto 67.3 % (45-73); Platelet Count 198 X10*3/uL (160-400); Red Blood Count 3.43 X10*6/uL (4.20-5.50); Red Cell Distribution Width 13.4 % (11.0-16.0); White Blood Count 6.4 X10*3/uL (4.8-10.8)
[2024-07-25 09:55] LABS: Alanine Aminotransferase 15 U/L (0-31); Albumin Level 3.8 g/dL (3.5-5.0); Alkaline Phosphatase 56 U/L (39-117); Anion Gap 11 (12-20); Aspartate Amino Transferase 26 U/L (5-31); Bilirubin Total 0.2 mg/dL (0.0-1.0); Blood Urea Nitrogen 34 mg/dL (9-16); Calcium 9.8 mg/dL (8.4-10.2); Carbon Dioxide 26 mmol/L (22-29); Chloride 111 mmol/L (96-108); Creatinine Clr Calc Pharmacy 35.4; Estimated Glomerular Filt Rate 35; Glucose Random 144 mg/dL (60-115); Potassium 4.4 mmol/L (3.3-5.1); Sodium 144 mmol/L (135-145); Total Protein 6.5 g/dL (6.5-8.0)
[2024-07-25 11:14] VITALS: BP 140/69; PULSE 87; RESP 16; TEMP 37.7; O2SAT 99
[2024-07-25 12:36] LABS: Influenza A PCR NEGATIVE (Negative); Influenza B PCR NEGATIVE (Negative); Resp Syncy Virus RNA Qual PCR NEGATIVE (Negative); SARS COV2 PCR INHOUSE NEGATIVE (Negative)
[2024-07-25 12:38] VITALS: BP 143/66; PULSE 81; RESP 16; TEMP 36.8; O2SAT 100
[2024-07-25 12:39] VITALS: BP 143/66; PULSE 81; RESP 16; TEMP 36.8; O2SAT 100
== END 2024-07-25 12:40 | disposition home or self-care (01) ==
PROVIDERS: Emergency Provider Emergency Medicine; PCP Internal Medicine
DX: M25.561 Pain in right knee (principal); Z03.818 Encounter for observation for suspected exposure to other biological agents ruled out
CPT/HCPCS: 0241U; 36415; 73552; 73562; 80053; 85025; 96365; 96366; 96375; 97162; 99285; J0131; J1885

== ENCOUNTER → 2024-07-25 08:55 | Outpatient (BNV) | payer OTHER, SELFPAY | PROVIDERS: Emergency Provider Emergency Medicine; PCP Internal Medicine; Visit Provider Radiology Diagnostic Radiology | DX: M25.561 Pain in right knee (principal); M79.651 Pain in right thigh | CPT/HCPCS: 73552; 73562 ==

== ENCOUNTER 2024-07-28 11:38 | Emergency (ER) | payer OTHER, SELFPAY ==
--- NOTE | ~2024-07-28 | CT_ITS ---
CLINICAL HISTORY: fall off bed CT cervical spine without contrast Comparison: None Findings: Normal vertebral body alignment. Multilevel disc space narrowing and endplate osteophyte formation, as well as facet hypertrophy. No acute fractures or dislocations. Visualized intracranial contents are unremarkable. No cervical fluid collections or masses. No consolidation or effusion at the lung apices. IMPRESSION: No acute findings. This document has been electronically signed by: Xochitl Santiago MD on 07/28/2024 13:27:34
--- NOTE | ~2024-07-28 | XR_ITS ---
CLINICAL HISTORY: fall, L great toe pain 4 view [id number] toe Comparison: None Findings: Bones intact. No dislocations. Periarticular osteophyte formation at the tibiotalar, talonavicular, naviculocuneiform, and subtalar joints. Calcaneal spurring. No erosions. No radiopaque foreign body. IMPRESSION: 1. No acute findings This document has been electronically signed by: Xochitl Santiago MD on 07/28/2024 13:06:15
--- NOTE | ~2024-07-28 | CT_ITS ---
CLINICAL HISTORY: fall on thinners CT head without contrast Comparison: None Findings: No intra-axial mass, midline shift, hydrocephalus, or acute hemorrhage. Mild diffuse cerebral volume loss. Mild degree of patchy low-density within the periventricular and subcortical white matter. The visualized paranasal sinuses and mastoid air cells are normal. The orbits are unremarkable. There is no acute fracture. IMPRESSION: 1. No acute intracranial findings. This document has been electronically signed by: Xochitl Santiago MD on 07/28/2024 13:19:31
--- NOTE | ~2024-07-28 | XR_ITS ---
CLINICAL HISTORY: fall onto L shoulder 3 view left shoulder Comparison: CR/SR - XR SHOULDER LT MIN 2V - 02/08/22 16:42 EST CR/SR - XR SHOULDER LT MIN 2V - 09/29/21 14:39 EDT Findings: No fractures or dislocations. Periarticular osteophyte formation at the acromioclavicular and glenohumeral joints, indicating osteoarthritis. No erosions. No radiopaque foreign body. IMPRESSION: 1. No acute findings This document has been electronically signed by: Xochitl Santiago MD on 07/28/2024 13:20:07
--- NOTE | ~2024-07-28 | XR_ITS ---
CLINICAL HISTORY: swelling ?gout v arthritis 4 view right knee Comparison: CR/SR - XR KNEE RT 3V - 07/24/24 15:23 EDT Findings: Bones intact. No dislocations. Tricompartmental periarticular osteophyte formation, indicating osteoarthritis. No joint effusion. No radiopaque foreign body. Arterial vascular calcifications are present. IMPRESSION: 1. No acute findings. This document has been electronically signed by: Xochitl Santiago MD on 07/28/2024 13:04:58
--- NOTE | 2024-07-28 11:43 | ED.GENADULT ---
HPI - General Adult General Chief complaint: Fall Stated complaint: fall Time Seen by Provider: 07/28/24 12:31 Source: patient, RN notes reviewed, old records reviewed and conversion developer Mode of arrival: ambulatory Limitations: language barrier History of Present Illness ED Provider: Anny HPI narrative: Patient is a 69-year-old Bangladeshi-speaking female with history of T2 DM, HTN, HLD, hyperparathyroidism presenting to the emergency department with a complaint of left shoulder and left great toe pain after falling out of bed this morning while sleeping. She fell onto her left side. Denies head strike or loss of consciousness, is on Plavix. Able to ambulate after the fall. Did not take any OTC pain medication prior to arrival. Also reports right knee pain but states this has been for a few weeks, feels similar to prior episodes of gout. Related Data Home Medications ?Medication ?Instructions ?Recorded ?Confirmed albuterol sulfate 90 mcg/actuation 2 puff inhalation Q4-6H PRN 12/24/19 05/15/24 aerosol inhaler (Ventolin HFA) Shortness Of Breath fluticasone propionate 110 1 puff inhalation BID 07/09/20 05/15/24 mcg/actuation HFA aerosol inhaler (Flovent HFA) loratadine 10 mg tablet 10 mg PO QAM 07/09/20 05/15/24 pen needle, diabetic 32 gauge x #50 ea 07/09/20 05/15/24 clopidogrel 75 mg tablet 75 mg PO DAILY 01/27/21 05/15/24 atorvastatin 80 mg tablet (Lipitor) 80 mg PO DAILY 11/01/21 05/15/24 amlodipine 5 mg tablet 5 mg PO DAILY 11/03/21 05/15/24 furosemide 20 mg tablet 20 mg PO DAILY 11/03/21 05/15/24 metoprolol tartrate 50 mg tablet 50 mg PO BID 11/03/21 05/15/24 omeprazole 20 mg capsule,delayed 20 mg PO DAILY 11/03/21 05/15/24 release acetaminophen 500 mg tablet 500 mg PO Q12H PRN Pain 01/28/22 05/15/24 budesonide 90 mcg/actuation breath 2 inh inhalation BID 01/28/22 05/15/24 activated powder inhaler (Pulmicort Flexhaler) cyclobenzaprine 5 mg tablet 5 mg PO TID PRN Pain 01/28/22 05/15/24 ferrous sulfate 325 mg (65 mg 325 mg PO TID 01/28/22 05/15/24 iron) tablet insulin lispro 100 unit/mL See Rx Instructions subcut TID 10/19/23 05/15/24 subcutaneous pen (Humalog KwikPen (U-100) Insulin) insulin glargine 100 unit/mL (3 38 unit subcut BEDTIME 11/22/23 05/15/24 mL) subcutaneous pen (Lantus Solostar U-100 Insulin) Previous Rx's ?Medication ?Instructions ?Recorded blood-glucose meter (OneTouch #1 ea 06/30/21 Verio Flex Meter) baclofen 10 mg tablet 10 mg PO BID muscle spasms #10 tabs 08/08/22 bisacodyl 10 mg rectal suppository 10 mg MN DAILY PRN constipation 03/21/23 (Dulcolax (bisacodyl)) #20 ea polyethylene glycol 3350 17 17 g PO DAILY 30 days #510 grams 03/21/23 gram/dose oral powder (Miralax) blood-glucose,tunnel form 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,cont #1 ea 07/10/23 (FreeStyle Collin 3 [place]) lancets #200 ea 08/28/23 pioglitazone 30 mg tablet (Actos) 30 mg PO DAILY #90 tabs 10/19/23 blood sugar diagnostic (OneTouch #100 strips 11/15/23 Verio test strips) lancets 33 gauge (TRUEplus Lancets) #100 ea 11/20/23 ezetimibe 10 mg tablet 10 mg PO QAM #90 tabs 12/20/23 blood-glucose sensor (FreeStyle #2 kits 01/25/24 Collin 3 Sensor device) calcium 200 mg (as 2 tab PO DAILY #120 tabs 01/29/24 citrate)-vitamin D3 6.25 mcg (250 unit) tablet docusate sodium 100 mg capsule 200 mg (2 x 100 mg) PO BEDTIME #60 03/21/24 caps semaglutide 0.25 mg or 0.5 mg (2 0.5 mg (0.736 mL) subcut QWEEK 4 05/01/24 mg/3 mL) subcutaneous pen injector weeks #3 mL (Ozempic) cholecalciferol (vitamin D3) 25 25 mcg PO QAM #90 caps 05/23/24 mcg (1,000 unit) capsule (Vitamin D3) sennosides 8.6 mg tablet (senna) 8.6 mg PO DAILY PRN for 05/23/24 constipation #30 tabs acetaminophen 650 mg 650 mg PO Q12H PRN pain (scale 06/08/24 tablet,extended release (Tylenol score 1-3) #20 tabs Arthritis Pain) calcium polycarbophil 625 mg 1,250 mg (2 x 625 mg) PO QAM #60 06/24/24 tablet (Fiber-Lax) tabs diclofenac sodium 1 % topical gel 2 g topical QID #50 grams 07/28/24 lidocaine 5 % topical patch 1 patch topical DAILY #15 ea 07/28/24 Allergies Allergy/AdvReac Type Severity Reaction Status Date / Time morphine [Morphine] Allergy Intermediate TACHYCARDIA, Verified 07/28/24 11:49 ANXIETY oxycodone [Percocet] Allergy Intermediate Palpitation Verified 07/28/24 11:49 s acetaminophen [From Percocet] Allergy Palpitation Verified 07/28/24 11:49 s prednisone [PREDNISONE] AdvReac Intermediate ANXIETY Verified 07/28/24 11:49 Review of Systems Review of Systems: As per HPI Yes all other systems are reviewed and are negative Constitutional: Constitutional: Reports as per HPI PMFSH Past Medical History Medical History Abnormal Pap smear of cervix Osteoporosis Goiter Hyperparathyroidism Hypercalcemia Vitamin D deficiency HLD (hyperlipidemia) HTN (hypertension) T2DM (type 2 diabetes mellitus) On beta anurag at home Chronic constipation Diabetes Anemia GERD (gastroesophageal reflux disease) Sleep apnea Asthma CAD (coronary artery disease) Angina pectoris HTN (hypertension) Surgical History Hx of heart artery stent Hx of cholecystectomy History of esophagogastroduodenoscopy (EGD) H/O colonoscopy Family History Family History Father Liver problem Mother Diabetes Obesity Social History Social History Household Members Other:: With Housing: House Alcohol intake: never Patient Tobacco Use Status: Never used Tobacco Advance Directives: No Advance Directives Information Provided: Yes Current occupational status: disabled Sexual orientation: Straight/Heterosexual Gender identity: Female Physical Exam ED Vital Signs: Vital Signs - 24 hr 07/28/24 11:47 07/28/24 13:17 Temperature 97.3 F 95.7 F L Pulse Rate 76 76 Respiratory Rate 16 19 Blood Pressure 110/68 149/62 H Pulse Oximetry 98 100 Oxygen Delivery Method Room Air Room Air BMI result Body Mass Index 35.9 Vital signs have been reviewed and appear to be correct. Blood pressure normal. Heart rate normal. Respiratory rate normal. Temperature normal. Oxygen saturation normal. Const General: cooperative, healthy appearing and no acute distress Orientation/consciousness: oriented to person, oriented to place, oriented to time and patient oriented x3 Limitations: no limitations HENMT Head: Yes normocephalic and Yes atraumatic Ears: external ears normal General nose exam: Normal external nose present Face and sinus: Yes face symmetric Mouth: oropharynx normal and moist mucous membranes Throat: Yes uvula midline Eyes Pupils: Equal, round and reactive pupils present Neck Neck: Yes normal visual inspection and Yes supple Resp Effort & Inspection: normal respiratory effort and able to speak in complete sentences Auscultation: clear to auscultation bilaterally Cardio Rate: regular rate Rhythm: regular rhythm Heart sounds: S1 normal heart sound present and S2 normal heart sound present GI Palpation (GI): Soft to palpation and nontender Auscultation: normoactive bowel sounds General: Yes no CVA tenderness Back/Spine/Pelvis Back: no CVA tenderness Skin General skin exam: elasticity normal and turgor normal Neuro General: oriented to person, oriented to place, oriented to time, patient oriented x3, moves all extremities, no focal motor deficits and CN's II-XI intact bilaterally Cranial nerves: Yes Equal, round and reactive pupils present Cognition (Neuro): normal cognition Extrem General: Yes full ROM, Yes no pedal edema and Yes no calf tenderness Left upper extremity: shoulder/upper arm Details: inspection abnormal, tenderness Location: of the A-C joint and normal ROM (pain with ROM); no ecchymosis Right lower extremity: knee Details: swelling (mild diffuse), normal ROM and knee ligament exam normal Left lower extremity: foot Details: normal capillary refill, tenderness Location: of the great toe, toes with normal ROM and vascular exam Details: dorsalis pedis pulse present, posterior tibial pulse present and normal capillary refill Psych Mental Status: mental status grossly normal Affect: normal affect Thought process: Normal thought process present Course Course Course Narrative: 07/28/24 1143 ESTIVEN Cantu This is a Rapid Medical Examination (RME) performed by Mayda Marie PA-C in triage. Full HPI, ROS, assessment and treatment plan per primary provider in the Main ED. Hx: 69 yo f hx of HLD, HTN, T2DM, aortic stenosis, hyperparathyroidism, OA, GERD, diverticulosis here for eval of L shoulder pain, L great toe pain s/p fall out of bed this morning. she reports rolling over off of the bed onto her left side. denies head strike or LOC however is on plavix. she also endorses gout in her right knee x2-3 weeks. reports hx of injection in that knee with resolution until pain returned over the last few weeks. PE/vitals: noted swelling to right knee when compared to left. using wheelchair to ambulate. Plan: imaging Medical Decision Making Medical Decision Making [facility] Narrative: Patient is a 69-year-old Bangladeshi-speaking female with history of T2 DM, HTN, HLD, hyperparathyroidism presenting to the emergency department with a complaint of left shoulder and left great toe pain after falling out of bed this morning while sleeping. On exam patient is awake, A+Ox3, VS WNL, afebrile, normal neurological exam without focal deficits, physical exam findings as above. Given reported symptoms and physical exam findings, initial differential includes but is not limited to ICH, skull or cervical vertebral fracture subluxation, of shoulder strain, sprain, fracture, left great toe contusion versus fracture. X-ray left shoulder and left great toe without evidence of acute fracture. CT head and C-spine notable for no acute ICH, skull or cervical vertebral fracture subluxation. My interpretation is in agreement with the radiologist's interpretation. Patient updated on results and all questions answered. Medicated with Toradol in the ED for pain. Will discharge home with lidocaine patches and diclofenac gel. Follow up with PCP. Return precautions discussed at bedside. Patient verbalized understanding of and agreement with plan. In-person geotechnical engineer was utilized for all interactions, assessments, and discussions. Differential Diagnosis Differential Diagnoses: The differential diagnosis associated with the presentation includes as per mdm Admission/Observation Consideration of admission/observation: Escalation of care including admission/observation considered Patient would have been admitted to the hospital had their work up had any findings where hospital admission was appropriate and their clinical presentation warranted hospital admission. Independent Interpretation I performed an independent interpretation of an: Plain X-Ray and CT Scan Interpretation: X-ray left shoulder and left great toe without evidence of acute fracture. CT head and C-spine notable for no acute ICH, skull or cervical vertebral fracture subluxation. Radiology Impression Discussion of test interpretation with radiology: I have reviewed the radiologist's reading. Radiologist Impression: CT cervical spine without contrast Comparison: None Findings: Normal vertebral body alignment. Multilevel disc space narrowing and endplate osteophyte formation, as well as facet hypertrophy. No acute fractures or dislocations. Visualized intracranial contents are unremarkable. No cervical fluid collections or masses. No consolidation or effusion at the lung apices. IMPRESSION: No acute findings.. CLINICAL HISTORY: fall onto L shoulder 3 view left shoulder Comparison: CR/SR - XR SHOULDER LT MIN 2V - 02/08/22 16:42 EST CR/SR - XR SHOULDER LT MIN 2V - 09/29/21 14:39 EDT Findings: No fractures or dislocations. Periarticular osteophyte formation at the acromioclavicular and glenohumeral joints, indicating osteoarthritis. No erosions. No radiopaque foreign body. IMPRESSION: 1. No acute findings CLINICAL HISTORY: fall on thinners CT head without contrast Comparison: None Findings: No intra-axial mass, midline shift, hydrocephalus, or acute hemorrhage. Mild diffuse cerebral volume loss. Mild degree of patchy low-density within the periventricular and subcortical white matter. The visualized paranasal sinuses and mastoid air cells are normal. The orbits are unremarkable. There is no acute fracture. IMPRESSION: 1. No acute intracranial findings. LINICAL HISTORY: fall, L great toe pain 4 view keon3iv toe Comparison: None Findings: Bones intact. No dislocations. Periarticular osteophyte formation at the tibiotalar, talonavicular, naviculocuneiform, and subtalar joints. Calcaneal spurring. No erosions. No radiopaque foreign body. IMPRESSION: 1. No acute findings External Record Review External record reviewed: Inpatient record, Office record and Outpatient record Prescription Management I considered prescription management with: Pain Medication Discharge Plan Discharge Clinical Impression: Left shoulder strain, Contusion of great toe, left Patient Disposition: Home, Self-Care Instructions: Muscle Strain (DC), Contusion in Adults (ED) Additional Instructions: You were evaluated in the emergency department today for left shoulder and left great toe pain after a fall out of bed. Your x-rays did not show any evidence of fractures. Your CT scans of your brain and neck did not show evidence of any bleeding in your brain or fractures in your cervical spine. You are being prescribed topical lidocaine patches which you can apply to painful areas for up to 12 hours in a 24 hour period. Do not apply heat directly over the patches. You are also being prescribed diclofenac gel which you can apply to painful areas as prescribed. Do not use the gel and the patches in the same area. You can apply ice to affected areas for 10-15 minutes at a time using caution not to apply ice directly to your skin. Follow up with your primary care provider. Return to the emergency department with new or concerning symptoms. Prescriptions: New diclofenac sodium 1 % gel 2 g topical QID Qty: 50 0RF Rx Instructions: apply to single elbow, wrist or hand; for hand includes palm/fingers/back of hand lidocaine 5 % adhesive patch,medicated 1 patch topical DAILY Qty: 15 0RF Rx Instructions: leave on most painful area for up to 12 hrs No Action (DME) blood-glucose meter [OneTouch Verio Flex meter] [facility] [place] Instructions .Route Qty: 1 0RF Rx Instructions: As directed acetaminophen 500 mg tablet 500 mg PO Q12H PRN (Reason: Pain) cyclobenzaprine 5 mg tablet 5 mg PO TID PRN (Reason: Pain) ferrous sulfate 325 mg (65 mg iron) tablet 325 mg PO TID Pulmicort Flexhaler 90 mcg/actuation aerosol powdr breath activated 2 inh inhalation BID (DME) FreeStyle Collin 3 [place] Mis See Rx Instructions .Route Qty: 1 0RF Rx Instructions: As directed (DME) lancets Misc See Rx Instructions .Route Qty: 200 5RF Rx Instructions: As directed (DME) OneTouch Verio test strips Strip See Rx Instructions .ROUTE .COMPLEX Qty: 100 11RF Dose Instruction: TEST BLOOD SUGAR THREE OR FOUR TIMES DAILY Rx Instructions: TEST BLOOD SUGAR THREE OR FOUR TIMES DAILY (DME) lancets [TRUEplus Lancets] 33 gauge misc See Rx Instructions .Route Qty: 100 11RF Rx Instructions: As directed to test blood sugar 3-4 times a day ezetimibe 10 mg tablet 10 mg PO QAM Qty: 90 3RF (DME) FreeStyle Collin 3 Sensor Device See Rx Instructions .ROUTE .COMPLEX Qty: 2 4RF Dose Instruction: USE DIRECTED. CHANGE EVERY 14 DAYS Rx Instructions: USE DIRECTED. CHANGE EVERY 14 DAYS calcium citrate-vitamin D3 200 mg-6.25 mcg (250 unit) tablet 2 tab PO DAILY Qty: 120 3RF docusate sodium 100 mg capsule 200 mg PO BEDTIME Qty: 60 5RF sennosides [senna] 8.6 mg tablet 8.6 mg PO DAILY PRN (Reason: for constipation) Qty: 30 1RF cholecalciferol (vitamin D3) [Vitamin D3] 25 mcg (1,000 unit) capsule 25 mcg PO QAM Qty: 90 3RF Fiber-Lax 625 mg tablet 1,250 mg PO QAM Qty: 60 3RF albuterol sulfate [Ventolin HFA] 90 mcg/actuation Hfa Aerosol Inhaler 2 puff INHALATION Q4-6H PRN (Reason: Shortness Of Breath) Flovent HFA 110 mcg/actuation HFA aerosol inhaler 1 puff INHALATION BID baclofen 10 mg tablet 10 mg PO BID Qty: 10 0RF acetaminophen [Tylenol Arthritis Pain] 650 mg tablet extended release 650 mg PO Q12H PRN (Reason: pain (scale score 1-3)) Qty: 20 0RF (DME) pen needle, diabetic 32 gauge x 5/32 needle See Rx Instructions .ROUTE QID Qty: 50 Rx Instructions: As directed loratadine 10 mg tablet 10 mg PO QAM clopidogrel 75 mg tablet 75 mg PO DAILY insulin lispro [Humalog KwikPen Insulin] 100 unit/mL insulin pen See Rx Instructions subcut TID Rx Instructions: Sliding Scale 6-16 subcutaneously 3 times a day; metoprolol tartrate 50 mg tablet 50 mg PO BID amlodipine 5 mg tablet 5 mg PO DAILY omeprazole 20 mg capsule,delayed release(DR/EC) 20 mg PO DAILY furosemide 20 mg tablet 20 mg PO DAILY atorvastatin [Lipitor] 80 mg tablet 80 mg PO DAILY polyethylene glycol 3350 [Miralax] 17 gram/dose powder 17 g PO DAILY 30 Days Qty: 510 6RF Rx Instructions: Take QHS bisacodyl [Dulcolax (bisacodyl)] 10 mg suppository 10 mg MN DAILY PRN (Reason: constipation) Qty: 20 0RF Lantus Solostar U-100 Insulin 100 unit/mL (3 mL) insulin pen 38 unit subcut BEDTIME pioglitazone [Actos] 30 mg tablet 30 mg PO DAILY Qty: 90 3RF Ozempic 0.25 mg or 0.5 mg (2 mg/3 mL) pen injector 0.5 mg subcut QWEEK 28 Days Qty: 3 5RF Print Language: Bangladeshi
[2024-07-28 11:47] VITALS: BP 110/68; PULSE 76; RESP 16; TEMP 36.3; O2SAT 98; BMI 35.9
--- OUTSIDE RECORDS SUMMARY | 2024-07-28 12:40 | XMS_ITS | Encounter Summary ---
Author Organization [employer] Address [address] [facility] [address] [place] [address] Care Team Providers Care Care Taker Name Role Phone James Flores MD Primary Care Provide r Encounter Details Date Type Department Care Team (Late st Contact Info) Description 06/14/2022 Orders Only [facility] [address] [place], [place] [phone] Jaja Hammond LPN Social History Tobacco Use [...] Description 09/03/2024 11:15 AM EDT Office Visit [facility] [address] [place] [address] James Flores MD [address] [place], [place] [phone] documented as of this encounter Visit Diagnoses Not on filedocumented in this encounter Care Teams Care Taker Relationship Specialty Start Date End Date James Flores MD [address] [place] [address] PCP - General Internal Medicine 02/04/14 documented as of this encounter
--- OUTSIDE RECORDS SUMMARY | 2024-07-28 12:41 | XMS_ITS | Encounter Summary ---
Author Organization [employer] Address [address] [facility] [address] [place] [address] Care Team Providers Care Adjunct Mathematics Instructor Name Role Phone James Flores MD Primary Care Provide r Reason for Visit * Reason Comments Med Refill Encounter Details Date Type Department Care Team (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
--- OUTSIDE RECORDS SUMMARY | 2024-07-28 12:41 | XMS_ITS | Encounter Summary ---
Author Organization [employer] Address [address] [facility] [address] [place] [address] Care Team Providers Care Freight Manager Name Role Phone James Flores MD Primary Care Provide r Reason for Referral * Consultation (Routine) - Closed Specialty Diagnoses / Procedures Referred By Contac t Referred To Contact Physical Therapy Diagnoses Primary osteoarthritis of left knee Lidya Pinedo MD [address] [place] [phone] Phone: tel: fax: [facility] [place] [address] [place] [address] Phone: tel: fax: Referral ID Status Reason Start Date Expiration Date V isits Requested Visits Authorized [id number] Closed Specialty Services Required 07/24/2024 07/24/2025 1 1 Reason for Visit * Reason Comments Leg Pain Encounter Details Date Type Department Care Team (Latest Contact Info) Description 07/24/2024 2:40 PM EDT Office Visit [facility] [address] [place] [address] [phone] Lidya Pinedo MD [address] [place] [address] [phone] Primary osteoarthritis of left knee (Primary Dx) [...] and limited ambulation x 4 days. No historyof recent falls or accidents. She has history of recurrent bilateral knee pain that resolves within1-2 days, last time was more than 5 [...] anemia CKD stage 3 secondary to diabetes ([facility]) Cobalamin deficiency Hyperlipidemia Hypertension Mild persistent asthma Severe obesity ([facility]) Obstructive sleep apnea syndrome Type 2 diabetes mellitus with stage 3a chronic kidney disease ([facility]) Preventative health care Chronic constipation Diverticulosis of colon GERD (gastroesophageal reflux disease) Goiter Hemorrhoids Hypercalcemia Hyperkalemia Non-rheumatic aortic stenosis Osteoporosis Poor historian Tubular adenoma Vitamin D deficiency Tinea corporis Acute pain of both knees Temporal arteritis ([facility]) Primary osteoarthritis of left knee No family [...] daily. 1 kit 0 Calcium Citrate-Vitamin D ([place] Calcium/Vitamin D) 200-6.25 MG-MCG tablet TAKE 2 TABLETS BY MOUTHTWICE DAILY IN THE MORNING AND EVENING carbamide peroxide (Debrox) 6.5 % otic solution Administer 5 drops into each ear 2 times daily for 4 days. 15 mL 0 clopidogrel (Plavix) 75 MG tablet TAKE 1 TABLET BY MOUTH EVERY EVENING 90 tablet 3 Continuous Glucose Design Painter (FreeStyle Collin 3 [place]) device USE DIRECTED Continuous Glucose Sensor (FreeStyle [...] WITH FOOD 180 tablet 1 nystatin (Mycostatin) 308303 UNIT/GM powder Apply topically 2 times daily. 30 g 3 [place] Verio test strip USE DIRECTED Ozempic, 0.25 [...] Description 09/03/2024 11:15 AM EDT Office Visit [facility] [address] [place] [address] James Flores MD [address] [place] [address] Scheduled Referrals Name Type Priority Associated Diagnoses [...] PM EDT Narrative 07/24/2024 3:34 PM EDT ?[facility] ?[address] ?[place] [address] ?XRay Report ? Signed ? Patient: Cappa,Jayne ?MR#: [id number] ? : 1955 ?Acct:[id number] ? Age/Sex: 69 / F ?ADM Date: 07/24/24 ? Loc: HO.HHCX ? Attending Dr: Lidya Pinedo MD ? Ordering Physician: Lidya Pinedo MD ?? Date of Service: 07/24/24 ?? Procedure(s): XR knee RT 3V ?? Accession Number(s): [id number] ? cc: Lidya Pinedo MD ? EXAMINATION: [...] DD/ 1451 ? TD/TT: 07/24/24 1500 ? Wage Analyst: ? Procedure Note Ofelia, Viridiana - 07/24/[address] [address] XRay Report Signed Patient: Jayne LaneMR#: [id number] : 6Acct:[id number] Age/Sex: 69 / FADM Date: 07/24/24 Loc: HO.HHCX Attending Dr: Lidya Pinedo MD Ordering Physician: Lidya Pinedo MD Date of Service: 07/24/24 Procedure(s): XR knee RT 3V Accession Number(s): [id number] cc: Lidya Pinedo MD EXAMINATION: XR KNEE [...] 07/24/24 1532 DD/ 1451 TD/TT: 07/24/24 1500 Wage Analyst: Lidya Pinedo MD IMG XR PROCEDURES Final [...] documented as of this encounter Care Teams Freight Manager Relationship Specialty Start Date End Date James Flores MD [address] [place] [id number] PCP - General Internal Medicine 02/04/14 documented as of this encounter
--- OUTSIDE RECORDS SUMMARY | 2024-07-28 12:41 | XMS_ITS | Encounter Summary ---
Author Organization [employer] Address [address] [facility] [address] 7[address] [place] [address] Care Team Providers Care Youth Advocate Name Role Phone James Flores MD Primary Care Provide r Encounter Details Date Type Department Care Team ([facility] st Contact Info) Description 01/09/2023 Orders Only [facility] MED & PEDS [address] [place] [address] Jaja Hammond LPN Social History Tobacco Use [...] Description 09/03/2024 11:15 AM EDT Office Visit [facility] MEDICINE [address] [place] [address] James Flores MD 230 [place] [address] documented as of this encounter Visit Diagnoses Not on filedocumented in this encounter Care Teams Youth Advocate Relationship Specialty Start Date End Date James Flores MD [address] [place] [address] PCP - General Internal Medicine 02/04/14 documented as of this encounter
--- OUTSIDE RECORDS SUMMARY | 2024-07-28 12:41 | XMS_ITS | Encounter Summary ---
Author Organization [employer] Address [address] [facility] [address] 7[address] [place] [address] Care Team Providers Care Brainer Name Role Phone James Flores MD Primary Care Provide r Reason for Visit * Reason Comments Med Refill Encounter Details Date Type Department Care Team ([facility] st Contact Info) Description 05/10/2024 Refill [facility] [address] [place] [address] Coco Montiel NP 230 [place] [address] Mild intermittent asthma without complication Social History [...] Visit [facility] MEDICINE [address] [place] [address] James Flores MD [address] [place] [address] documented as of this encounter Visit Diagnoses Diagnosis Mild intermittent asthma without complication documented in this encounter Additional Health Concerns Assessment Noted Time PHQ-9 Depression Total Score: 0 01/30/20 24 10:37 AM EST documented as of this encounter Care Teams Brainer Relationship Specialty Start Date End Date James Flores MD [address] [place] [address] PCP - General Internal Medicine 02/04/14 documented as of this encounter
--- OUTSIDE RECORDS SUMMARY | 2024-07-28 12:41 | XMS_ITS | Encounter Summary ---
Author Organization [employer] Address [address] [facility] 7t [place] [address] Care Team Providers Care Assembler Wire Mesh Gate Name Role Phone James Flores MD Primary Care Provide r Reason for Visit * Reason Comments Med Refill Encounter Details Date Type Department Care Team ([facility] st Contact Info) Description 09/04/2023 Refill [facility] MEDICINE [address] [place] [address] Name, MD Loki [address] [place] [address] Gastroesophageal reflux disease without esophagitis Social History [...] the past 12 months, has t he [employer], [employer],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 threatened to shut [...] Description 09/03/2024 11:15 AM EDT Office Visit [facility] MEDICINE [address] [place] [address] James Flores MD [address] [place] [address] documented as of this encounter Visit Diagnoses Diagnosis Gastroesophageal reflux disease without esophagitis Esophageal reflux documented in this encounter Care Teams Assembler Wire Mesh Gate Relationship Specialty Start Date End Date James Flores MD [address] [place] [address] PCP - General Internal Medicine 02/04/14 documented as of this encounter
--- OUTSIDE RECORDS SUMMARY | 2024-07-28 12:41 | XMS_ITS | Encounter Summary ---
Author Organization [employer] Address [address] [facility] [address] 7[address] [place] [address] Care Team Providers Care Tie Layer Name Role Phone James Flores MD Primary Care Provide r Encounter Details Date Type Department Care Team (Late st Contact Info) Description 07/25/2024 Orders Only GENERIC EXTERNAL DATA DEPARTMENT Provider, [...] Description 09/03/2024 11:15 AM EDT Office Visit [facility] MEDICINE 230 [place] [address] James Flores MD 230 [place] [address] documented as of this encounter Procedures Procedure Name Priority Date/Time Associated Diagnosis Comments SARS COV2/INFLUENZA A/B AND RSV RNA QL NAAT Routine 07/25/2024 11:47 AM EDT CBC WITH AUTO DIFFERENTIAL Routine 07/25/2024 9:31 AM EDT COMPREHENSIVE METABOLIC PANEL Routine 07/25/2024 9:30 AM EDT XR FEMUR 2+ VIEWS RIGHT Routine 07/25/2024 8:56 AM EDT XR KNEE 3 VIEWS RIGHT Routine 07/25/2024 8:55 AM EDT documented in this encounter Results * SARS-CoV-2 RNA, Influenza A/B, and RSV RNA, Ql NAAT (07/25/2024 11:47 AM EDT) Influenza A PCR NEGATIVE Negative [facility] Influenza B PCR NEGATIVE Negative [facility] Resp Syncy Virus RNA Qual PCR NEGATIVE Negative [facility] SARS COV2 PCR NEGATIVE Negative [facility] Comment:All test results mus t [...] use by authorized laboratories.Testing performed on the [employer] GeneXpert utilizingreal-time RT-PCR.All SARS CoV2 and positive influenza A/B results arereported to [facility]. 07/25/2024 11:4 7 AM EDT 07/25/2024 11:58 AM EDT us Generic External Data Provider LAB MICROBIOLOGY - GENERAL ORDERABLES Final Result [facility] [address] [place] [phone] * (ABNORMAL) CBC auto differential (07/25/2024 9:31 AM EDT) White Blood Count 6.4 4.8 - 10.8 X10*3/uL [facility] Red Blood Count 3.43(L) 4.20 - 5.50 X10*6/uL [facility] Hemoglobin 10.7(L) 12.0 - 16.0 g/dl [facility] Hematocrit 32.8(L) 37.0 - 47.0 % [facility] Mean Corpuscular Volume 95.6 80.0 - 98.0 fL [facility] Mean Corpuscular Hemoglobin 31.2 27.0 - 33.0 pg [facility] Mean Corpuscular HGB Conc 32.6 31.0 - 35.0 g/dl [facility] Red Cell Distribution Width 13.4 11.0 - 16.0 % [facility] Platelet Count 198 160 - 400 X10*3/uL [facility] Mean Platelet Volume 10.3 9.4 - 12.3 fL [facility] Neutrophils Percent Auto 67.3 45 - 73 % [facility] Imm Gran Pct Auto 0.5(H) 0.0 - 0.4 % [facility] Lymphocytes Percent Auto 25.0 20 - 40 % [facility] Monocytes Percent Auto 5.8 2 - 11 % [facility] Eosinophils Percent Auto 1.1 0 - 4 % [facility] Basophils Percent Auto 0.3 0 - 2 % [facility] NRBC Pct Auto 0.0 0.0 - 0.2 /100WBC [facility] Neutrophils Absolute Auto 4.3 2.0 - 8.3 x10*3/uL [facility] Imm Gran Abs Auto 0.03 0.00 - 0.03 X10*3/uL [facility] Lymphocytes Absolute Auto 1.6 1.2 - 4.9 X10*3/uL [facility] Monocytes Absolute Auto 0.4 0.1 - 1.2 X10*3/uL [facility] Eosinophils Absolute Auto 0.1 0.0 - 0.4 X10*3/uL [facility] Basophils Absolute Auto 0.0 0.0 - 0.2 X10*3/uL [facility] NRBC Abs Auto 0.000 0.0 - 0.012 X10*3/uL [facility] 07/25/2024 9:31 AM EDT 07/25/2024 9:36 AM EDT us Generic External Data Provider LAB BLOOD ORDERAB LES Final Result [facility] [address] [place] [phone] * (ABNORMAL) Comprehensive Metabolic Panel (07/25/2024 9:30 AM EDT) Sodium 144 135 - 145 mmol/L [facility] Potassium 4.4 3.3 - 5.1 mmol/L [facility] Chloride 111(H) 96 - 108 mmol/L [facility] Carbon Dioxide 26 22 - 29 mmol/L [facility] Anion Gap 11(L) 12 - 20 [facility] Urea Nitrogen (BUN) 34(H) 9 - 16 mg/dL [facility] Creatinine, Serum 1.47(H) 0.5 - 1.4 mg/dL [facility] Creatinine Clr Calc Pharmacy 35.4 [facility] Comment:Provided height and weight: 157.48 cm,80 kg.eGFR (calculated from the MDRD study equation) and eCrCl(calculated from the Cockcroft-Gault equation) are based ondifferent parameters and may not yield comparable results.If eCrCl result is absurd, please check patient'sheight/weight. Estimated Glomerular Filt Rate 35 [facility] Comment:Chronic Kidney Disea se: Estimated GFR < 60 mL/min/1.76f8Aimzxj Kidney Disease: Estimated GFR < 15 mL/min/1.73m2 Glucose 144(H) 60 - 115 mg/dL [facility] Calcium 9.8 8.4 - 10.2 mg/dL [facility] Bilirubin, Total 0.2 0.0 - 1.0 mg/dL [facility] Aspartate Amino Transferase 26 5 - 31 U/L [facility] Alanine Aminotransferase 15 0 - 31 U/L [facility] Total Protein 6.5 6.5 - 8.0 g/dL [facility] Albumin Level 3.8 3.5 - 5.0 g/dL [facility] Alkaline Phosphatase 56 39 - 117 U/L [facility] 07/25/2024 9:30 AM EDT 07/25/2024 9:36 AM EDT us Generic External Data Provider LAB BLOOD ORDERAB LES Final Result [facility] [address] [place] [phone] * XR Femur 2+ Views Right (07/25/2024 8:56 AM EDT) Anatomical Region Laterality Modality Lower Extremities, Femur Right Radiogr aphic Imaging 07/25/2024 8:56 AM EDT Narrative 07/25/2024 9:57 AM EDT ? [facility] ?[address] ?[place] [address] ?XRay Report ? Signed ? Patient: Cappa,Jayne ?MR#: [id number] ? : 1955 ?Acct:[id number] ? Age/Sex: 69 / F ?ADM Date: 07/25/24 ? Loc: HO.ED ? Attending Dr: ? Ordering Physician: Shreyas Arrieta MD ?? Date of Service: 07/25/24 ?? Procedure(s): XR femur RT 2V ?? Accession Number(s): [id number] ? cc: Shreyas Arrieta MD; James Trimble MD ? EXAMINATION: ?? XR FEMUR, RIGHT ? CLINICAL INFORMATION: ?? trauma ? COMPARISON: ?? None available. ? TECHNIQUE: ?? AP and lateral views of the right femur were obtained. ? FINDINGS: ?? No fracture, dislocation, or suspicious bone lesion. ?? Mild to moderate degenerative changes right hip joint. ?? Degenerative changes medial compartment right knee joint. ? Soft tissues normal aside from vascular calcifications. ? XR/XR femur RT 2V ?? IMPRESSION: ?? No acute bony abnormalities right femur. ? Electronically signed by: ??Terry Ray MD ??07/25/2024 09:54 AM EDT RP ? Dictated By: ?Terry Ray MD ? Signed By: ?<Electronically signed by Terry Ray MD in OV> ?07/25/24 0954 ? DD/ 0856 ? TD/TT: 07/25/24 0921 ? Water Reuse Program Manager: ? Procedure Note Viridiana [facility] - 07/25/[address] [address] XRay Report Signed Patient: Jayne LaneMR#: [id number] : 6Acct:[id number] Age/Sex: 69 / FADM Date: 07/25/24 Loc: HO.ED Attending Dr: Ordering Physician: Shreyas Arrieta MD Date of Service: 07/25/24 Procedure(s): XR femur RT 2V Accession Number(s): [id number] cc: Shreyas Arrieta MD; James Trimble MD EXAMINATION: XR FEMUR, RIGHT CLINICAL INFORMATION: trauma COMPARISON: None available. TECHNIQUE: AP and lateral views of the right femur were obtained. FINDINGS: No fracture, dislocation, or suspicious bone lesion. Mild to moderate degenerative changes right hip joint. Degenerative changes medial compartment right knee joint. Soft tissues normal aside from vascular calcifications. XR/XR femur RT 2V IMPRESSION: No acute bony abnormalities right femur. Electronically signed by: Terry Ray MD 07/25/2024 09:54 AM EDT RP Dictated By: Terry Ray MD Signed By: <Electronically signed by Terry Ray MD in OV> 07/25/24 0954 DD/ 0856 TD/TT: 07/25/24 0921 Water Reuse Program Manager: [facility] External Provider IMG XR PROCEDURES Final Result * XR Knee 3 Views Right (07/25/2024 8:55 AM EDT) Anatomical Region Laterality Modality Lower Extremities, Knee Right Radiogra phic Imaging 07/25/2024 8:55 AM EDT Narrative 07/25/2024 9:49 AM EDT ? [facility] ?[address] ?[place] [address] ?XRay Report ? Signed ? Patient: Cappa,Jayne ?MR#: [id number] ? : 1955 ?Acct:[id number] ? Age/Sex: 69 / F ?ADM Date: 05/15/25 ? Loc: HO.ED ? Attending Dr: ? Ordering Physician: Corvi,Shreyas MD ?? Date of Service: 07/25/24 ?? Procedure(s): XR knee RT 3V ?? Accession Number(s): [id number] ? cc: Shreyas Arrieta MD; James Trimble MD ? EXAMINATION: ?? XR KNEE, RIGHT ? CLINICAL INFORMATION: ?? trauma ? COMPARISON: ?? Prior day. ? TECHNIQUE: ?? Four views of the right knee. ? FINDINGS: ?? No fracture, dislocation, or suspicious bone lesion. There is normal ?? alignment. ?? There is mild to moderate medial compartment degenerative arthrosis, ?? with mild marginal osteophytic spurs. ?? There is chondrocalcinosis in the medial and lateral compartments. ?? There is spurring of the tibial spines. ?? There is no evidence of significant joint effusion. ?? Soft tissues appear normal aside from vascular calcifications. ? XR/XR knee RT 3V ?? IMPRESSION: ? 1. No acute bony abnormalities right knee. No joint effusion. ?? 2. Chondrocalcinosis ?? 3. degenerative changes medial compartment. ? Electronically signed by: ??Terry Ray MD ??07/25/2024 09:46 AM EDT RP ? Dictated By: ?Terry Ray MD ? Signed By: ?<Electronically signed by Terry Ray MD in OV> ?07/25/24 0946 ? DD/ 0855 ? TD/TT: 07/25/24 0921 ? Water Reuse Program Manager: ? Procedure Note Ofelia, Image - 07/25/2024 [place] [address] XRay Report Signed Patient: Olivia Lane#: [id number] : 6Acct:[id number] Age/Sex: 69 / FADM Date: 07/25/24 Loc: HO.ED Attending Dr: Ordering Physician: Shreyas Arrieta MD Date of Service: 07/25/24 Procedure(s): XR knee RT 3V Accession Number(s): [id number] cc: Shreyas Arrieta MD; James Trimble MD EXAMINATION: XR KNEE, RIGHT CLINICAL INFORMATION: trauma COMPARISON: Prior day. TECHNIQUE: Four views of the right knee. FINDINGS: No fracture, dislocation, or suspicious bone lesion. There is normal alignment. There is mild to moderate medial compartment degenerative arthrosis, with mild marginal osteophytic spurs. There is chondrocalcinosis in the medial and lateral compartments. There is spurring of the tibial spines. There is no evidence of significant joint effusion. Soft tissues appear normal aside from vascular calcifications. XR/XR knee RT 3V IMPRESSION: 1. No acute bony abnormalities right knee. No joint effusion. 2. Chondrocalcinosis 3. degenerative changes medial compartment. Electronically signed by: Terry Ray MD 07/25/2024 09:46 AM EDT Dictated By: Terry Ray MD Signed By: <Electronically signed by Terry Ray MD in OV> 07/25/24 0946 DD/ 0855 TD/TT: 07/25/24 0921 Water Reuse Program Manager: [facility] External Provider IMG XR PROCEDURES Final Result documented in this encounter Visit Diagnoses Not on filedocumented in this encounter Additional Health Concerns Assessment Noted Time PHQ-9 Depression Total Score: 0 01/30/20 24 10:37 AM EST documented as of this encounter Care Teams Tie Layer Relationship Specialty Start Date End Date James Flores MD [address] [place] [address] PCP - General Internal Medicine 02/04/14 documented as of this encounter
--- OUTSIDE RECORDS SUMMARY | 2024-07-28 12:41 | XMS_ITS | Encounter Summary ---
Author Organization [employer] Address [address] [facility] 7t [place] [address] Care Team Providers Care Construction Craft Laborer Name Role Phone James Flores MD Primary Care Provide r Reason for Visit * Reason Comments Med Refill Encounter Details Date Type Department Care Team ([facility] st Contact Info) Description 07/25/2024 Refill [facility] MEDICINE [address] [place] [address] James Flores MD [address] [place] [address] Chronic anemia Social History Tobacco Use Types [...] Office Visit [facility] MEDICINE [address] [place] [address] James Flores MD [address] [place] [address] documented as of this encounter Visit Diagnoses Diagnosis Chronic anemia Unspecified anemia documented in this encounter Additional Health Concerns Assessment Noted Time PHQ-9 Depression Total Score: 0 01/30/20 10:37 AM EST documented as of this encounter Care Teams Construction Craft Laborer Relationship Specialty Start Date End Date James Flores MD [address] [place] [address] PCP - General Internal Medicine 02/04/14 documented as of this encounter
--- OUTSIDE RECORDS SUMMARY | 2024-07-28 12:41 | XMS_ITS | Encounter Summary ---
Author Organization [employer] Address [address] [facility] 7t [place] [address] Care Team Providers Care Report Clerk Name Role Phone James Flores MD Primary Care Provide r Reason for Visit * Reason Onset Date Comments Durable Medical Equipment 07/25/2024 Encounter Details Date Type Department Care Team (Late st Contact Info) Description 07/25/2024 Telephone [facility] MEDICINE [address] [place] [address] James Flores MD [address] [place] [address] Durable Medical Equipment Social History Tobacco Use [...] encounter Miscellaneous Notes * Telephone Encounter - Nery Lyon MA - 07/25/2024 2:49 PM EDT DME script generated. Will place on Provider's desk. * Telephone Encounter - Nery Lyon MA - 07/25/2024 2:40 PM EDT ----- Message from Lidya Pinedo MD sent at 07/24/2024 4:58 PM EDT ----- Please write a prescription for right knee hinged brace documented in this encounter Plan of Treatment Upcoming Encounters Date Type Department Care Team (Late st Contact Info) Description 09/03/2024 11:15 AM EDT Office Visit [facility] MEDICINE [address] [place] [address] James Flores MD [address] [place] [address] documented as of this encounter Visit Diagnoses Not on filedocumented in this encounter Additional Health Concerns Assessment Noted Time PHQ-9 Depression Total Score: 0 01/30/20 24 10:37 AM EST documented as of this encounter Care Teams Report Clerk Relationship Specialty Start Date End Date James Flores MD [address] [place] [address] PCP - General Internal Medicine 02/04/14 documented as of this encounter
--- OUTSIDE RECORDS SUMMARY | 2024-07-28 12:41 | XMS_ITS | Encounter Summary ---
Author Organization [employer] Address [address] [facility] 7t [place] [address] Care Team Providers Care Rotary Adjuster Name Role Phone James Flores MD Primary Care Provide r Reason for Visit * Reason Comments Med Refill Encounter Details Date Type Department Care Team ([facility] st Contact Info) Description 03/12/2023 Refill [facility] MEDICINE [address] [place] [address] James Flores MD [address] [place] [address] Chronic anemia Social History Tobacco Use Types [...] t he electric, gas, oil or water [employer] threatened to shut off services in your [...] Description 09/03/2024 11:15 AM EDT Office Visit [facility] MEDICINE [address] [place] [address] James Flores MD [address] [place] [address] documented as of this encounter Visit Diagnoses Diagnosis Chronic anemia Unspecified anemia documented in this encounter Care Teams Rotary Adjuster Relationship Specialty Start Date End Date James Flores MD [address] [place] [address] PCP - General Internal Medicine 02/04/14 documented as of this encounter
--- OUTSIDE RECORDS SUMMARY | 2024-07-28 12:41 | XMS_ITS | Encounter Summary ---
Author Organization [employer] Address [address] [facility] [address] [place] [address] Care Team Providers Care Pediatric Physician Assistant Name Role Phone James Flores MD Primary Care Provide r Encounter Details Date Type Department Care Team ([facility] st Contact Info) Description 07/23/2024 11:00 AM EDT Telemedicine [facility] MEDICINE [address] [place] [address] James Flores MD [address] [place], [place] [phone] Goiter (Primary Dx); Temporal arteritis (CMS/HCC); Acute [...] to far out. Pt did see an Jet Man that did not see any abnormalitites and [...] acute injury to the right knee. 2. Vwgz-ed-[id number] lateral compartment degenerative changes. Left: IMPRESSION: 1. No radiographic evidence of acute injury to the left knee. 2. Mild degenerative changes of the left knee most pronounced within the medial compartment. Ortho referral placed back in may, pt's daughter tells me its already scheduled in a couple of weeks Future Appointments Date Time Provider Department Center 07/26/2024 9:30 AM [facility] GREEN TEAM NURSE MEDICINE [facility] 09/03/2024 11:15 AM James Ashraf MD MEDICINE [facility] documented in this encounter Miscellaneous Notes * Assessment & Plan Note - James Ashraf MD - 07/23/2024 11:31 AM EDT Associated Problem(s): Acute pain of both knees Pt with c/o bilateral knee pain Right > Left x 3 weeks. Intensity 12/20 plain films both knees Right knee: IMPRESSION: 1. No radiographic evidence of acute injury to the right knee. 2. [id number] lateral compartment degenerative changes. Left: IMPRESSION: 1. [...] to far out. Pt did see an Jet Man that did not see any abnormalitites and [...] 09/03/2024 11:15 AM EDT Office Visit [facility] MEDICINE [address] [place] [address] James Flores MD [address] [place] [address] Scheduled Orders Name Type Priority Associated Diagnoses Orde r Schedule Sed Rate by Modified [facility] Routine Temporal arteritis (CMS/HCC) Expected: 07/23/2024, Expires: 07/23/2025 C-reactive Protein Lab Routine Temporal arteritis (CMS/HCC) Expected: 07/23/2024 (Approximate), Expires: 07/23/2025 documented as of this encounter Visit Diagnoses Diagnosis Goiter- Primary Goiter, unspecified Temporal arteritis (CMS/HCC) Giant cell arteritis Acute pain of both knees documented in this encounter Additional Health Concerns Assessment Noted Time PHQ-9 Depression Total Score: 0 01/30/20 24 10:37 AM EST documented as of this encounter Care Teams Pediatric Physician Assistant Relationship Specialty Start Date End Date James Flores MD [address] [place] [address] PCP - General Internal Medicine 02/04/14 documented as of this encounter
--- OUTSIDE RECORDS SUMMARY | 2024-07-28 12:41 | XMS_ITS | Encounter Summary ---
Author Organization [employer] Address 75 [facility] 7t [place] [address] Care Team Providers Care Recycling Crew Supervisor Name Role Phone James Flores MD Primary Care Provide r Reason for Visit * Reason Onset Date Comments Durable Medical Equipment 09/27/2023 Encounter Details Date Type Department Care Team (Late st Contact Info) Description 09/27/2023 Telephone [facility] MEDICINE [address] [place] [address] James Flores MD [address] [place] [address] Durable Medical Equipment Social History Tobacco Use [...] 1 flip pillow DME Please contact at [phone] * Telephone Encounter - Fernando Christie - 09/27/2023 2:40 PM EDT Tc from pt 10 in 1 flip pillow due to issues sleeping. Pt would like script to be faxed to [facility] If any questions you can contact pt at [phone]. documented in this encounter Plan of Treatment Upcoming Encounters Date Type Department Care Team (Late st Contact Info) Description 09/03/2024 11:15 AM EDT Office Visit [facility] MEDICINE [address] [place] [address] James Flores MD [address] [place] [address] documented as of this encounter Visit Diagnoses Not on filedocumented in this encounter Care Teams Recycling Crew Supervisor Relationship Specialty Start Date End Date James Flores MD [address] [place] [address] PCP - General Internal Medicine 02/04/14 documented as of this encounter
--- OUTSIDE RECORDS SUMMARY | 2024-07-28 12:41 | XMS_ITS | Encounter Summary ---
Author Organization [employer] Address [address] [facility] 7t [place] [address] Care Team Providers Care Systems Coordinator Name Role Phone James Flores MD Primary Care Provide r Reason for Visit * Reason Comments Med Refill Encounter Details Date Type Department Care Team ([facility] st Contact Info) Description 07/20/2024 Refill [facility] CHC MED & PEDS [address] [place] [address] Ruchi Nolan MD [address] [place] [address] Type 2 diabetes mellitus without complication, with long-term current use of insulin ([facility]) Social History Tobacco Use Types [...] Description 09/03/2024 11:15 AM EDT Office Visit [facility] MEDICINE [address] [place] [address] James Flores MD [address] [place] [address] documented as of this encounter Visit Diagnoses Diagnosis Type 2 diabetes mellitus without complication, with long-term current use of insulin ([facility]) documented in this encounter Additional Health Concerns Assessment Noted Time PHQ-9 Depression Total Score: 0 01/30/20 24 10:37 AM EST documented as of this encounter Care Teams Systems Coordinator Relationship Specialty Start Date End Date James Flores MD [address] [place] [address] PCP - General Internal Medicine 02/04/14 documented as of this encounter
--- OUTSIDE RECORDS SUMMARY | 2024-07-28 12:41 | XMS_ITS | Encounter Summary ---
Author Organization [employer] Address [address] [facility] [address] 7t [place] [address] Care Team Providers Care Fast Food Shift Lead Name Role Phone James Flores MD Primary Care Provide r Encounter Details Date Type Department Care Team ([facility] st Contact Info) Description 01/11/[address] [facility] MEDICINE [address] [place], [place] [phone] James Flores MD [address] [place], [place] [phone] Social History Tobacco Use Types Packs/Day Years [...] Description 09/03/2024 11:15 AM EDT Office Visit [facility] MEDICINE [address] [place] [address] James Flores MD [address] [place] [address] documented as of this encounter Visit Diagnoses Not on filedocumented in this encounter Care Teams Fast Food Shift Lead Relationship Specialty Start Date End Date James Flores MD [address] [place] [address] PCP - General Internal Medicine 02/04/14 documented as of this encounter
--- OUTSIDE RECORDS SUMMARY | 2024-07-28 12:41 | XMS_ITS | Encounter Summary ---
Author Organization [employer] Address [address] [facility] 7t [place] [address] Care Team Providers Care Disbursement Clerk Name Role Phone James Flores MD Primary Care Provide r Reason for Visit * Reason Onset Date Comments Nurse Triage 03/18/2024 Encounter Details Date Type Department Care Team ([facility] st Contact Info) Description 03/18/2024 Telephone [facility] MEDICINE [address] [place] [address] James Flores MD [address] [place], [place] [phone] Nurse Triage Social History Tobacco Use Types [...] 03/18/2024 11:50 AM EST Triage call with [facility] [place] [id number]. Pt reports continual coughing with cold symptoms. Pt was seen in [facility] 02/29/24 for cough and exacerbation of asthma. Pt reports has been using inhaler and nebulizer as prescribed though not every day.Pt denies having difficulty breathing. Pt requests to see provider again due to continuation of cough and cold symptoms neg for fever. Pt is advised to return to [facility] today open till 8pm and Pt agreeswith this disposition. Pt is requesting what medication could be taken for cough , Pt is taking BP medications and is advised to ask provider when seen in [facility] and Pt agrees. Insurance is verified as [...] Description 09/03/2024 11:15 AM EDT Office Visit [facility] MEDICINE [address] [place] [address] James Flores MD [address] [place] [address] documented as of this encounter Visit Diagnoses Not on filedocumented in this encounter Additional Health Concerns Assessment Noted Time PHQ-9 Depression Total Score: 0 01/30/20 24 10:37 AM EST documented as of this encounter Care Teams Disbursement Clerk Relationship Specialty Start Date End Date James Flores MD [address] [place] [id number] PCP - General Internal Medicine 02/04/14 documented as of this encounter
--- OUTSIDE RECORDS SUMMARY | 2024-07-28 12:41 | XMS_ITS | Encounter Summary ---
Author Organization [employer] Address [address] [facility] 7[address] [place] [address] Care Team Providers Care Supervisor Cabinetmaker Name Role Phone James Flores MD Primary [...] Description 09/03/2024 11:15 AM EDT Office Visit [facility] MEDICINE 230 [place] [address] James Flores MD [address] [place] [phone] documented as of this encounter Visit Diagnoses Not on filedocumented in this encounter Additional Health Concerns Assessment Noted Time PHQ-9 Depression Total Score: 0 01/30/20 24 10:37 AM EST documented as of this encounter Care Teams Supervisor Cabinetmaker Relationship Specialty Start Date End Date aJmes Flores MD [address] [place] [id number] PCP - General Internal Medicine 02/04/14 documented as of this encounter
--- OUTSIDE RECORDS SUMMARY | 2024-07-28 12:41 | XMS_ITS | Encounter Summary ---
Author Organization [employer] [facility] Address [address] [facility] 7t [place] [address] Care Team Providers Care Scratcher Name Role Phone James Flores MD Primary Care Provide r Reason for Visit * Reason Comments Med Refill Encounter Details Date Type Department Care Team (Late st Contact Info) Description 08/21/2022 Refill [facility] MEDICINE [address] [place], [place] [phone] James Flores MD [address] [place], [place] [phone] Social History Tobacco Use Types Packs/Day Years [...] Description 09/03/2024 11:15 AM EDT Office Visit [facility] MEDICINE [address] [place], [place] [phone] James Flores MD [address] [place], [place] [phone] documented as of this encounter Visit Diagnoses Not on filedocumented in this encounter Care Teams Scratcher Relationship Specialty Start Date End Date James Flores MD [address] [place] [id number] PCP - General Internal Medicine 02/04/14 documented as of this encounter
--- OUTSIDE RECORDS SUMMARY | 2024-07-28 12:41 | XMS_ITS | Encounter Summary ---
Author Organization [employer] Address [address] [facility] 7t [place] [address] Care Team Providers Care Transfer And Pumphouse Operator Name Role Phone James Flores MD Primary Care Provide r Reason for Visit * Reason Comments Med Refill Encounter Details Date Type Department Care Team ([facility] st Contact Info) Description 07/23/2024 Refill [facility] MEDICINE [address] [place] [address] James Flores MD [address] [place] [address] Type 2 diabetes mellitus without complication, with long-term current use of insulin ([facility]) Social History Tobacco Use Types Packs/Day Years [...] 11:15 AM EDT Office Visit [facility] MEDICINE [address] [place] [address] James Flores MD [address] [place] [address] documented as of this encounter Visit Diagnoses Diagnosis Type 2 diabetes mellitus without complication, with long-term current use of insulin ([facility]) documented in this encounter Additional Health Concerns Assessment Noted Time PHQ-9 Depression Total Score: 0 01/30/20 24 10:37 AM EST documented as of this encounter Care Teams Transfer And Pumphouse Operator Relationship Specialty Start Date End Date James Flores MD [address] [place] [address] PCP - General Internal Medicine 02/04/14 documented as of this encounter
--- OUTSIDE RECORDS SUMMARY | 2024-07-28 12:41 | XMS_ITS | Patient Health Record ---
Author Organization [employer] Address [address] [place] [address] Care Team Providers Care Shuttlecock Feather Trimmer Name Role Phone Rudy Ashraf MD, James Primary Care Provide r Unavailable Moris Duron Jr Unavailable Reason For Referral No Information Plan Of Treatment No Information Insurance Providers Payer Name Payer Address Payer Phone Subscriber Number Group Number Insured Name Patient Relationship to Insured Coverage Start Date Coverage End Date MEDICARE OF [place] [address] [place] [address] [phone] [id number] STEPHANI JOE Self - patient is the insured MEDICAID OF [facility] [address] [place] [address] [id number] STEPHANI JOE Self - patient is the insured
--- OUTSIDE RECORDS SUMMARY | 2024-07-28 12:41 | XMS_ITS | Encounter Summary ---
Author Organization [employer] Address [address] [facility] 7t [place] [address] Care Team Providers Care Rn Dermatology Name Role Phone James Flores MD Primary Care Provide r Encounter Details Date Type Department Care Team ([facility] st Contact Info) Description 03/14/2023 Telephone [facility] [address] [place] [address] Adriana Odell [place] Social History Tobacco Use [...] Office Visit [facility] MEDICINE [address] [place] [address] James Flores MD [address] [place] [address] documented as of this encounter Visit Diagnoses Not on filedocumented in this encounter Care Teams Rn Dermatology Relationship Specialty Start Date End Date James Flores MD [address] [place] [address] PCP - General Internal Medicine 02/04/14 documented as of this encounter
--- OUTSIDE RECORDS SUMMARY | 2024-07-28 12:42 | XMS_ITS | Encounter Summary ---
Author Organization [employer] Address [address] [facility] 7t [place] [address] Care Team Providers Care Cloth Desizing Range Tender Name Role Phone James Flores MD Primary Care Provide r Encounter Details Date Type Department Care Team ([facility] Contact Info) Description 03/17/2022 Orders Only [facility] CHC MED & PEDS [address] [place], [place] [phone] Jaja Hammond LPN Social History Tobacco Use [...] Upcoming Encounters Date Type Department Care Team ([facility] Contact Info) Description 09/03/2024 11:15 AM EDT Office Visit [facility] MEDICINE [address] [place], [place] [phone] James Flores MD [address] [place], [place] [phone] documented as of this encounter Visit Diagnoses Not on filedocumented in this encounter Care Teams Cloth Desizing Range Tender Relationship Specialty Start Date End Date James Flores MD [address] [place] [phone] PCP - General Internal Medicine 02/04/14 documented as of this encounter
--- OUTSIDE RECORDS SUMMARY | 2024-07-28 12:42 | XMS_ITS | Encounter Summary ---
Author Organization [employer] Address [address] [facility] 7t [place] [address] Care Team Providers Care Marketing Communications Associate Name Role Phone James Flores MD Primary Care Provide r Encounter Details Date Type Department Care Team (Late st Contact Info) Description 05/11/2022 Telephone [facility] MEDICINE [address] [place] [phone] James Flores MD [address] [place] [address] [phone] Social History Tobacco Use Types Packs/Day Years [...] 09/03/2024 11:15 AM EDT Office Visit [facility] MEDICINE [address] [place] [address] [phone] James Flores MD 230 [place], [place] [phone] documented as of this encounter Visit Diagnoses Not on filedocumented in this encounter Care Teams Marketing Communications Associate Relationship Specialty Start Date End Date James Flores MD [address] [place] [phone] PCP - General Internal Medicine 02/04/14 documented as of this encounter
--- OUTSIDE RECORDS SUMMARY | 2024-07-28 12:42 | XMS_ITS | Encounter Summary ---
Author Organization [employer] Address [address] [facility] 7t [place] [address] Care Team Providers Care Precast Concrete Ironworker Name Role Phone James Flores MD Primary Care Provide r Reason for Visit * Reason Onset Date Comments Pre op 01/11/2024 Encounter Details Date Type Department Care Team ([facility] st Contact Info) Description 01/11/2024 Telephone [facility] MEDICINE [address] [place] [address] James Flores MD [address] [place], [place] [phone] Pre op Social History Tobacco Use Types [...] [facility] Surgeon's office number: [phone] Surgeon's office fax number: [phone] Contact name (person you spoke with): Marcelo Last office note from surgeon requested: No Pt scheduled for Pre op on 02/07/24 with Pro documented in this encounter Plan of Treatment Upcoming Encounters Date Type Department Care Team (Late st Contact Info) Description 09/03/2024 11:15 AM EDT Office Visit [facility] MEDICINE [address] [place] [address] James Flores MD [address] [place] [address] documented as of this encounter Visit Diagnoses Not on filedocumented in this encounter Care Teams Precast Concrete Ironworker Relationship Specialty Start Date End Date James Flores MD [address] [place] [address] PCP - General Internal Medicine 02/04/14 documented as of this encounter
--- OUTSIDE RECORDS SUMMARY | 2024-07-28 12:42 | XMS_ITS | Clinical Summary ---
Author Organization [employer] Address [address] [place] [address] Care Team Providers Care Wafer Polisher Name Role Phone James Flores MD Primary [...] the morning. 023 Active Calcium Citrate-Vitamin D (Loup Calcium/Vitamin D) 200-6.25 MG-MCG tablet TAKE 2 TABLETS BY MOUTH TWICE DAILY IN THE MORNING AND EVENING Active Alcohol Swabs (Alcohol Prep) 70 % [...] CHANGE EVERY 14 DAYS Active Continuous Glucose Car Builder (FreeStyle Collin 3 [place]) device USE DIRECTED Active bisacodyl (Dulcolax) 10 [...] 6 hours as needed 8.5 each 3 Active albuterol (2.5 MG/3ML) 0.083% nebulizer solutionIndicati ons:Mild intermittent asthma without complication Take 3 mL by nebulization if needed in the morning, at noon, in the evening, and at bedtime (use 4-6 times a day as needed). 90 mL 3 Active insulin glargine (Lantus SoloStar) 100 UNIT/ML penIndications:T ype 2 diabetes mellitus without complication, with long-term current use of insulin ([facility]) INJECT 35 UNITS SUBCUTANEOUSLY ONCE DAILY 15 mL 2 024 Active nystatin (Mycostatin) 287004 UNIT/GM powderIndication s:Tinea corporis Apply topically 2 times daily. 30 g 3 025 2025 Active metoprolol tartrate (Lopressor) 50 MG tablet TAKE 1 TABLET BY MOUTH TWICE DAILY IN THE MORNING AND IN THE EVENING WITH FOOD 180 tablet 1 025 Active Diclofenac Sodium 1 [...] BY MOUTH EVERY MORNING 30 tablet 5 025 Active BD Pen Needle Nneka U/F 32G X 4 MM miscIndications: Type 2 diabetes mellitus without complication, with long-term current use of insulin ([facility]) USE DIRECTED FOUR TIMES DAILY 100 each 6 025 Active HumaLOG KWIKPEN 100 UNIT/ML injectionIndicat ions:Type 2 diabetes mellitus without complication, with long-term current use of insulin ([facility]) INJECT 6 TO 16 UNITS SUBCUTANEOUSLY DIRECTED PER SLIDING SCALE BLOOD SUGAR 150-200 = 6 UNITS, 201-250 = 10U, 251-300 = 12U, 301-350 = 14U, > 351 = 16U 15 mL 3 025 Active meloxicam (Mobic) 15 MG tablet Take 1 tablet p.o./day x 2 weeks then 1 tablet/day as needed pain thereafter 30 tablet Active acetaminophen (Tylenol) 500 MG tablet 31-2 tablets p.o. 3 times daily as needed pain- 60 tablet Active Ferrous Sulfate (iron) 325 (65 Fe) MG tabletIndication s:Chronic anemia TAKE 1 TABLET BY MOUTH THREE TIMES DAILY IN THE MORNING, AT NOON, AND IN THE EVENING 90 tablet 1 Active clopidogrel (Plavix) 75 MG tablet TAKE 1 TABLET BY MOUTH EVERY EVENING 90 tablet 3 025 Active clopidogrel (Plavix) 75 MG tablet TAKE 1 TABLET BY MOUTH EVERY EVENING 90 tablet 3 024 2024 Discontinued Pentips 32G X 4 MM miscIndications: Type 2 diabetes mellitus without complication, with long-term current use of insulin ([facility]) USE DIRECTED FOUR TIMES DAILY 100 each 6 024 2024 Discontinued HumaLOG KWIKPEN 100 UNIT/ML injectionIndicat ions:Type 2 diabetes mellitus without complication, with long-term current use of insulin ([facility]) INJECT 6 TO 16 UNITS SUBCUTANEOUSLY DIRECTED PER SLIDING SCALE BLOOD SUGAR 150-200 = 6 UNITS, 201-250 = 10U, 251-300 = 12U, 301-350 = 14U, > 351 = 16U 15 mL 3 025 2024 Discontinued Ferrous Sulfate (iron) 325 (65 Fe) MG tabletIndication s:Chronic anemia TAKE 1 TABLET BY MOUTH THREE TIMES DAILY IN THE MORNING, AT NOON, AND IN THE EVENING 90 tablet 1 025 2024 Discontinued acetaminophen (Tylenol) 500 MG tablet Take 2 [...] for 7 days. 14 tablet 025 2024 carbamide peroxide (Debrox) 6.5 % otic solution Administer 5 drops into each ear 2 times daily for 4 days. 15 mL 025 2024 Hospital, Clinic, or Other Facility [...] to far out. Pt did see an Mall Manager that did not see any abnormalitites and [...] Right > Left x 3 weeks. Intensity 10 plain films both knees Right knee: IMPRESSION: 1. No radiographic evidence of acute injury to the right knee. 2. Xxmg-vr-jlvuicvm lateral compartment degenerative changes. Left: IMPRESSION: 1. [...] Right > Left x 3 weeks. Intensity 1010 Plan: Obtain plain films both knees Ortho [...] underwent Colpo with biopsies & ECC per REFERENCE LIBRARIAN notes from 04/2017 Colonoscopy: 07/2022 Tubular adenoma repeat 3 years Vaccines: Flu shot: tdap: 05/31/2013 Dexa scan:. 04/28/2015 showed osteopenia Assessment & Plan (01/30/2024 11:02 AM EST): Routine physical exam today: within normal limits Mammogram: NL : 02/22/2023 Pap Smear: 06/27/2023: Normal In 11/24/2016 ASCUS with positive HPV. Pt underwent Colpo with biopsies & ECC per REFERENCE LIBRARIAN notes from 04/2017 Colonoscopy: 07/2022 Tubular adenoma repeat 3-5 years Vaccines: Flu shot: tdap: 05/31/2013 Dexa scan:. 04/28/2015 showed osteopenia Assessment & Plan (01/19/2023 1:43 PM EST): Mammogram: NL : 01/29/2021 Pap Smear: 11/24/2016 ASCUS with positive HPV. Pt underwent Colpo with biopsies & ECC per REFERENCE LIBRARIAN notes from 04/2017 she was supposed to have a repeat with co test 04/2018 and if both neg then would f/u in 3 years records requested Colonoscopy: 07/2022 Tubular adenoma repeat 3-5 years Vaccines: Flu shot: tdap: 05/31/2013 Dexa scan:. 04/28/2015 showed osteopenia History of CVA (cerebrovascular accident) 2021 Assessment & Plan (05/30/2024 9:07 AM EDT): Hx of this Pt was admitted to [facility] from :12/31-12/22/2020 Patient presented to ED [...] Hx of this Pt was admitted to [facility] from :12/31-12/22/2020 Patient presented to ED [...] due to Hx of hyperkalemia associated with ROIM inhibitors. Plan: continue to follow with Endocrinology, [...] Plan (01/31/2023 11:27 AM EST): Seen at [facility] 01/28/2023 with an asthma exacerbation Doing [...] disease and negative nuclear stress test at [facility] . Due to her Hx of [...] disease and negative nuclear stress test at [facility] . Due to her recent CVA [...] disease and negative nuclear stress test at [facility] . Due to her recent CVA [...] Date Type Department Care Team Description 07/25/2024 Telephone [facility] [address] [place] [phone] James Flores MD Durable Medical Equipment 07/25/2024 Orders Only GENERIC EXTERNAL DATA DEPARTMENT Provider, Generic External Data 07/25/2024 Refill [facility] [address] [place] [phone] James Flores MD Chronic anemia 07/24/2024 2:40 PM EDT Office Visit [facility] [address] [place] [phone] Lidya Pinedo MD Primary osteoarthritis of left knee (Primary Dx) 07/23/2024 11:00 AM EDT Telemedicine [facility] [address] [place] [address] [phone] James Flores MD Goiter (Primary Dx); Temporal arteritis ([facility]); Acute pain of both knees 07/23/2024 Travel 07/23/2024 Refill [facility] [address] [place] [phone] James Flores MD Type 2 diabetes mellitus without complication, with long-term current use of insulin (CMS/HCC) 07/22/2024 Telephone [facility] [address] [place] [phone] Ludwin Sylvester MD 07/22/2024 Telephone [facility] [address] [place] [phone] James Flores MD chartprep 07/22/[address] [address] Ludwin Sylvester MD Appointment Request 07/22/2024 Orders Only [facility] [address] [place] [phone] Ludwin Sylvester MD 07/20/2024 Refill [facility] [address] [place] [address] Ruchi Nolan MD Type 2 diabetes mellitus without complication, with long-term current use of insulin ([facility]) 07/15/2024 Telephone [facility] [address] [place] [phone] James Flores MD Results 07/11/2024 Telephone [facility] [address] [place] [phone] Ludwin Sylvester MD 07/09/2024 Telephone [facility] [address] [place] [phone] Ludwin Sylvester MD 07/04/[address] [address] James Flores MD Lab order question 07/03/2024 Telephone [facility] [address] [place] [phone] Ludwin Sylvester MD 07/02/2024 Telephone [facility] [address] [place] [phone] Ludwin Sylvester MD 07/02/2024 Orders Only [facility] [address] [address] Ludwin Sylvester MD 06/28/2024 Orders Only [facility] [address] [place] [phone] Ludwin Sylvester MD 06/26/2024 10:00 AM EDT Office Visit [facility] [address] [place] [address] [phone] Ludwin Sylvester MD Temporal headache (Primary Dx); Hypertension, unspecified type 06/22/2024 Refill [facility] [address] [place] [phone] James Flores MD Seasonal allergies 06/20/2024 Telephone [facility] [address] [place] [address] [phone] Ludwin Sylvester MD 06/20/2024 Telephone [facility] [address] [place] [address] [phone] Sarah Mark, LISA Plan of care 06/20/2024 Orders Only [facility] [address] [address] Ludwin Sylvester MD Giant cell arteritis ([facility]) (Primary Dx); Anxiety 06/20/2024 Telephone [facility] [address] [place] [address] [phone] Sarah Mark RN Plan of care 06/19/2024 10:20 AM EDT Office Visit [facility] [address] [address] Ludwin Sylvester MD Neck pain (Primary Dx); Acute intractable headache, unspecified headache type; Acute pain of both knees; Hypertension, unspecified type 06/19/2024 Orders Only GENERIC EXTERNAL DATA DEPARTMENT Provider, Generic External Data 06/12/[address] [address] Diana Coates RN Results 06/12/2024 Orders Only [address] [address] James Flores MD Thyroid nodule (Primary Dx) 06/08/2024 Orders Only GENERIC EXTERNAL DATA DEPARTMENT Provider, Generic External Data 05/30/2024 9:15 AM EDT Office Visit [address] [address] James Flores MD Type 2 diabetes mellitus with stage 3a chronic kidney disease, with long-term current use of insulin (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); Dietary counseling; Exercise counseling; History of CVA (cerebrovascular accident); Age-related osteoporosis without current pathological fracture; Acute pain of both knees; Encounter for immunization 05/30/2024 Patient Outreach [address] [address] James Flores MD Care Coordination (CHW outreach for SDOH housing search-referral completed ) 05/30/2024 Travel 05/23/2024 Refill [facility] [address] [place] [address] James Flores MD Chronic anemia 05/22/2024 Telephone [facility] [address] [place], [place] [phone] James Flores MD Chart Prep 05/20/2024 Refill [facility] [address] [place], [place] [phone] James Flores MD 05/10/2024 Refill [facility] [address] [place], [place] [phone] Coco Montiel NP Mild intermittent asthma without [...] [facility] [address] [place] [address] James Flores MD [address] [place], [place] [phone] Health Maintenance Due Date Last Done Comments [...] Eye Exam 06/20/2026 06/20/2024 HPV/Cotest 01/17/2027 01/17/2022, 11/0 09/2021, 11/24/2016 Pap [...] VIEWS RIGHT Routine 07/25/2024 8:55 AM EDT XR KNEE 3 VIEWS RIGHT Routine 07/24/2024 [...] disease, with long-term current use of insulin ([facility]) XR DEXA APPENDICULAR SKELETON Routine 05/15/2024 8:15 AM EST GLUCOSE, WHOLE BLOOD Routine 05/01/2024 9:11 AM EST POCT GLYCATED HEMOGLOBIN, TOTAL Routine 03/21/2024 9:51 AM EST Type 2 diabetes mellitus with stage 3a chronic kidney disease, with long-term current use of insulin ([facility]) LIPID PANEL, STANDARD Routine 02/05/2024 7:55 AM EST Type 2 diabetes mellitus with stage 3a chronic kidney disease, with long-term current use of insulin ([facility]) PAP SMEAR Routine 06/22/2023 3:20 PM EDT BI MAMMOGRAM SCREENING TOMOSYNTHESIS BILATERAL Routine 02/22/2023 8:20 AM EST HM COLONOSCOPY Routine 07/11/2022 3:53 PM EDT ZZZ HISTORICAL HPV E6/E7 RFLX DANIAL 16 18/45 Routine 01/17/2022 4:22 PM EST from Last 3 Months or Most Recently Relevant to Health Maintenance Results * SARS-CoV-2 RNA, Influenza A/B, and RSV RNA, Ql NAAT (07/25/2024 11:47 AM EDT) Only the most recent of2 resultswithin the time period is included. Influenza A PCR NEGATIVE Negative [facility] Influenza B PCR NEGATIVE Negative [facility] Resp Syncy Virus RNA Qual PCR NEGATIVE Negative [facility] SARS COV2 PCR NEGATIVE Negative [facility] Comment:All test results mus [...] use by authorized laboratories.Testing performed on the [employer] GeneXpert utilizingreal-time RT-PCR.All SARS CoV2 and positive influenza A/B results arereported to [facility]. 07/25/2024 11:4 7 AM EDT 07/25/2024 11:58 AM EDT us Generic External Data Provider LAB MICROBIOLOGY - GENERAL ORDERABLES Final Result [facility] [address] [place] [phone] * (ABNORMAL) CBC auto differential (07/25/2024 9:31 AM EDT) Only the most recent of2 resultswithin the time period is included. White Blood Count 6.4 4.8 - 10.8 X10*3/uL [facility] Red Blood Count 3.43(L) 4.20 - 5.50 X10*6/uL [facility] Hemoglobin 10.7(L) 12.0 - 16.0 g/dl [facility] Hematocrit 32.8(L) 37.0 - 47.0 % [facility] Mean Corpuscular Volume 95.6 80.0 - 98.0 fL [facility] Mean Corpuscular Hemoglobin 31.2 27.0 - 33.0 pg [facility] Mean Corpuscular HGB Conc 32.6 31.0 - 35.0 g/dl [facility] Red Cell Distribution Width 13.4 11.0 - 16.0 % [facility] Platelet Count 198 160 - 400 X10*3/uL [facility] Mean Platelet Volume 10.3 9.4 - 12.3 fL [facility] Neutrophils Percent Auto 67.3 45 - 73 % [facility] Imm Gran Pct Auto 0.5(H) 0.0 - 0.4 % [facility] Lymphocytes Percent Auto 25.0 20 - 40 % [facility] Monocytes Percent Auto 5.8 2 - 11 % [facility] Eosinophils Percent Auto 1.1 0 - 4 % [facility] Basophils Percent Auto 0.3 0 - 2 % [facility] NRBC Pct Auto 0.0 0.0 - 0.2 /100WBC [facility] Neutrophils Absolute Auto 4.3 2.0 - 8.3 x10*3/uL [facility] Imm Gran Abs Auto 0.03 0.00 - 0.03 X10*3/uL [facility] Lymphocytes Absolute Auto 1.6 1.2 - 4.9 X10*3/uL [facility] Monocytes Absolute Auto 0.4 0.1 - 1.2 X10*3/uL [facility] Eosinophils Absolute Auto 0.1 0.0 - 0.4 X10*3/uL [facility] Basophils Absolute Auto 0.0 0.0 - 0.2 X10*3/uL [facility] NRBC Abs Auto 0.000 0.0 - 0.012 X10*3/uL [facility] 07/25/2024 9:31 AM EDT 07/25/2024 9:36 AM EDT us Generic External Data Provider LAB BLOOD ORDERAB LES Final Result [facility] [address] [place] [phone] * (ABNORMAL) Comprehensive Metabolic Panel (07/25/2024 9:30 AM EDT) Sodium 144 135 - 145 mmol/L [facility] Potassium 4.4 3.3 - 5.1 mmol/L [facility] Chloride 111(H) 96 - 108 mmol/L [facility] Carbon Dioxide 26 22 - 29 mmol/L [facility] Anion Gap 11(L) 12 - 20 [facility] Urea Nitrogen (BUN) 34(H) 9 - 16 mg/dL [facility] Creatinine, Serum 1.47(H) 0.5 - 1.4 mg/dL [facility] Creatinine Clr Calc Pharmacy 35.4 [facility] Comment:Provided height and weight: 157.48 cm,80 kg.eGFR (calculated from the MDRD study equation) and eCrCl(calculated from the Cockcroft-Gault equation) are based ondifferent parameters and may not yield comparable results.If eCrCl result is absurd, please check patient'sheight/weight. Estimated Glomerular Filt Rate 35 [facility] Comment:Chronic Kidney Disea se: Estimated GFR < 60 mL/min/1.74e4Tqvbbc Kidney Disease: Estimated GFR < 15 mL/min/1.73m2 Glucose 144(H) 60 - 115 mg/dL [facility] Calcium 9.8 8.4 - 10.2 mg/dL [facility] Bilirubin, Total 0.2 0.0 - 1.0 mg/dL [facility] Aspartate Amino Transferase 26 5 - 31 U/L [facility] Alanine Aminotransferase 15 0 - 31 U/L [facility] Total Protein 6.5 6.5 - 8.0 g/dL [facility] Albumin Level 3.8 3.5 - 5.0 g/dL [facility] Alkaline Phosphatase 56 39 - 117 U/L [facility] 07/25/2024 9:30 AM EDT 07/25/2024 9:36 AM EDT us Generic External Data Provider LAB BLOOD ORDERAB LES Final Result [facility] [address] [place] [phone] * XR Femur 2+ Views Right (07/25/2024 8:56 AM EDT) Anatomical Region Laterality Modality Lower Extremities, Femur Right Radiogr aphic Imaging 07/25/2024 8:56 AM EDT Narrative 07/25/2024 9:57 AM EDT ? [facility] ?[address] ?[place] [address] ?XRay Report ? Signed ? Patient: Cappa,Jayne ?MR#: [id number] ? : 1955 ?Acct:[id number] ? Age/Sex: 69 / F ?ADM Date: 07/25/24 ? Loc: HO.ED ? Attending Dr: ? Ordering Physician: Shreyas Arrieta MD ?? Date of Service: 07/25/24 ?? Procedure(s): XR femur RT 2V ?? Accession Number(s): [id number] ? cc: Shreyas Arrieta MD; James Trimble [...] ?07/25/24 0954 ? DD/ 0856 ? TD/TT: 07/25/24920 ? Automotive General Sales Manager: ? Procedure Note Donotuseinterpreter, Image - 07/25/[address] [address] XRay Report Signed Patient: Jayne LaneMR#: [id number] : 6Acct:[id number] Age/Sex: 69 / FADM Date: 07/25/24 Loc: HO.ED Attending Dr: Ordering Physician: Shreyas Arrieta MD Date of Service: 07/25/24 Procedure(s): XR femur RT 2V Accession Number(s): [id number] cc: Shreyas Arrieta MD; James Trimble MD [...] Terry Ray MD 07/25/2024 09:54 AM EDT Dictated By: Terry Ray MD Signed By: <Electronically signed by Terry Ray MD in OV> 07/25/24 0954 DD/ 5 TD/TT: 07/25/24920 Automotive General Sales Manager: [facility] External Provider IMG XR PROCEDURES Final Result * XR Knee 3 Views Right (07/25/2024 8:55 AM EDT) Only the most recent of2 resultswithin the time period is included. Anatomical Region Laterality Modality Lower Extremities, Knee Right [facility] 07/25/2024 8:55 AM EDT Narrative 07/25/2024 9:49 AM EDT ? [facility] ?[address] ?[place] [address] ?XRay Report ? Signed ? Patient: Cappa,Jayne ?MR#: [id number] ? : 1955 ?Acct:[id number] ? Age/Sex: 69 / F ?ADM Date: 07/25/24 ? Loc: HO.ED ? Attending Dr: ? Ordering Physician: Shreyas Arrieta MD ?? Date of Service: 07/25/24 ?? Procedure(s): XR knee RT 3V ?? Accession Number(s): [id number] ? cc: Shreyas Arrieta MD; James Trimble [...] DD/ 0855 ? TD/TT: 07/25/24 0921 ? Automotive General Sales Manager: ? Procedure Note Ofelia, Viridiana - 07/25/[address] [address] XRay Report Signed Patient: Jayne LaneMR#: [id number] : 6Acct:[id number] Age/Sex: 69 / FADM Date: 07/25/24 Loc: HO.ED Attending Dr: Ordering Physician: Shreyas Arrieta MD Date of Service: 07/25/24 Procedure(s): XR knee RT 3V Accession Number(s): [id number] cc: Shreyas Arrieta MD; James Trimble MD [...] 07/25/24 0946 DD/ 0855 TD/TT: 07/25/24 0921 Automotive General Sales Manager: us [facility] External Provider IMG XR PROCEDURES Final Result * US Thyroid (07/11/2024 12:58 PM EDT) Anatomical Region Laterality Modality Head, Neck Ultrasound 07/11/2024 12:5 8 PM EDT Narrative 07/12/2024 7:13 AM EDT ? [facility] [place] [facility] ?[address] ?[place] [address] ? Ultrasound Report ? Signed ? Patient: Cappa,Jayne ?MR#: [id number] ? : 1955 ?Acct:[id number] ? Age/Sex: 69 / F ?ADM Date: 07/11/24 ? Loc: HO.US ? Attending Dr: James Trimble MD ? Ordering Physician: James Trimble MD ?? Date of Service: 07/11/24 ?? Procedure(s): US thyroid ?? Accession Number(s): [id number] ? cc: James Trimble MD ? EXAMINATION: [...] signed by Zev Mukherjee MD in OV> ?07/12/24709 ? DD/ 1258 ? TD/TT: 07/11/24 1302 ? Automotive General Sales Manager: ? Procedure Note Donjaelyn, Image - 07/12/2024 [place] [address] Ultrasound Report Signed Patient: Jayne LaneMR#: [id number] : 6Acct:[id number] Age/Sex: 69 / FADM Date: 07/11/24 Loc: HO.US Attending Dr: James Trimble MD Ordering Physician: James Trimble MD Date of Service: 07/11/24 Procedure(s): US thyroid Accession Number(s): [id number] cc: James Trimble MD EXAMINATION: US THYROID [...] 07/12/24 0710 DD/ 1258 TD/TT: 07/11/24 1302 Automotive General Sales Manager: us James Ashraf MD IMG US PROCEDURES Fin al Result * US DUPLEX ARTERIAL VENOUS COMP (06/29/2024 9:18 AM EDT) Anatomical Region Laterality Modality Abdomen Ultrasound 06/29/2024 9:18 AM EDT Narrative 06/29/2024 9:19 AM EDT ? [facility] ?[address] ?[place] [address] ? Ultrasound Report ? Signed ? Patient: Cappa,Jayne ?MR#: [id number] ? : 1955 ?Acct:[id number] ? Age/Sex: 69 / F ?ADM Date: 04/18/25 ? Loc: HO.US ? Attending Ronnie Sylvester MD ? Ordering Physician: LUDWIN SYLVESTER MD ?? Date of Service: 06/28/24 ?? Procedure(s): US duplex arterial venous comp ?? Accession Number(s): [id number] ? cc: LUDWIN SYLVESTER MD; James Trimble [...] signed by David Poole MD in OV> ?06/29/24 0919 ? DD/ 7 ? TD/TT: 06/29/24917 ? Automotive General Sales Manager: ? Procedure Note Viridiana Gilbert - 06/29/[address] [address] Ultrasound Report Signed Patient: Jayne LaneMR#: [id number] : 6Acct:[id number] Age/Sex: 69 / FADM Date: 06/28/24 Loc: HO.US Attending Dr: Ludwin Sylvester MD Ordering Physician: LUDWIN SYLVESTER MD Date of Service: 06/28/24 Procedure(s): US duplex arterial venous comp Accession Number(s): [id number] cc: LUDWIN SYLVESTER MD; James Trimble MD [...] in OV> 06/29/24918 DD/ 7 TD/TT: 06/29/24917 Automotive General Sales Manager: us Ludwin Sylvester MD IMG US PROCEDURES Final Result * Referral to Ophthalmology (06/20/2024) us Ludwin Sylvester MD OUTPATIENT REFERRAL ORDERABLES F inal Result * Lyme Disease Ab with Reflex to Blot (IgG, IgM) (06/19/2024 10:56 AM EDT) Lyme Antibody Screen <0.90 index [facility] Comment:Index Interpretation ----- < 0.90 Negative [...] when erythemamigrans is apparent.THIS TEST WAS PERFORMED AT:[employer] [place] [id number] CHAND MD Lyme Blot TNP [facility] 06/19/2024 10:5 6 AM EDT 06/19/2024 11:51 AM EDT us Ludwin Sylvester MD LAB BLOOD ORDERABLES Final Resul t [facility] [address] [place] [address] [phone] * RPR (Monitor) with Reflex to??Titer (06/19/2024 10:56 AM EDT) RPR (Monitor) w/Refl Titer NON-REACTI VE NON-REACT DANNY [facility] Comment:THIS TEST WAS PERFOR MED AT:[employer] [place] [phone] CHAND MD Rapid Plasma Reagin Ab Titer TNP [facility] Blood Venous blood specimen / Unknown 06/19/2024 10:56 AM EDT 06/19/2024 11:40 AM EDT us Ludwin Sylvester MD LAB BLOOD ORDERABLES Final Resul t [facility] [address] [place] [phone] * (ABNORMAL) Sed Rate by Modified Sudharen (06/19/2024 10:56 AM EDT) Erythrocyte Sedimentation Rate 98(H) 0 - 20 MM/HR [facility] Comment:Patients with polycy themia and many hemoglobin abnormalitiesmay have depressed sed rates whereas patients with anemiamay have elevated sed rates. Blood Venous blood specimen / Unknown 06/19/2024 10:56 AM EDT 06/19/2024 11:40 AM EDT us Ludwin Sylvester MD LAB BLOOD ORDERABLES Final Resul t [facility] [address] [place] [address] [phone] * PTH, Intact Without Calcium (06/19/2024 10:56 AM EDT) Parathyroid Hormone, Intact 60.9 8.7 - 77.1 pg/mL [facility] 06/19/2024 10:5 6 AM EDT 06/19/2024 11:40 AM EDT Generic External Data Provider LAB BLOOD ORDERAB LES Final Result Performing Organization Address City/[facility]/ZIP Co de Phone Number [facility] [address] [place] [phone] * Vitamin D, 25-Hydroxy, Total, Immunoassay (06/19/2024 10:26 AM EDT) Vitamin D 25-OH Total 41.0 >30 ng/mL [facility] Comment: Health Based Reference Values*< 20 ??ng/mL ??Mwrexnklc56-74 ng/mL ??Insufficient> 30 ??ng/mL ??Sufficient*Altagracia GOODWIN. N [...] ORDERAB LES Final Result Performing Organization Address [facility]/ZIP Co de Phone Number [facility] [address] [place] [phone] * (ABNORMAL) C-reactive Protein (06/19/2024 10:26 AM EDT) C Reactive Protein 2.44(H) < or = 0.50 mg/dL [facility] 06/19/2024 10:2 6 AM EDT 06/19/2024 11:49 AM EDT Generic External Data Provider LAB BLOOD ORDERAB LES Final Result Performing Organization Address [facility] Co de Phone Number [facility] [address] [place] [phone] * (ABNORMAL) Calcium (06/19/2024 10:26 AM EDT) Calcium 10.6(H) 8.4 - 10.2 mg/dL [facility] 06/19/2024 10:2 6 AM EDT 06/19/2024 11:49 AM EDT us Generic External Data Provider LAB BLOOD ORDERAB LES Final Result Performing Organization Address [facility] Co de Phone Number [facility] [address] [place] [phone] * Albumin (06/19/2024 10:26 AM EDT) Albumin Level 4.1 3.5 - 5.0 g/dL [facility] 06/19/2024 10:2 6 AM EDT 06/19/2024 11:49 AM EDT us Generic External Data Provider LAB BLOOD ORDERAB LES Final Result Performing Organization Address [facility] de Phone Number [facility] [address] [place] [phone] * CTA Head Neck w/ and w/o Contrast (06/08/2024 7:19 PM EDT) Anatomical Region Laterality Modality Head, Neck Computed Tomogra phy 06/08/2024 7:19 PM EDT Narrative 06/08/2024 7:20 PM EDT ? [facility] ?[address] ?[place] [address] ? CT Scan Report ? Signed ? Patient: Cappa,Jayne ?MR#: [id number] ? : 1955 ?Acct:[id number] ? Age/Sex: 69 / F ?ADM Date: 06/08/24 ? Loc: HO.ED ? Attending Dr: ? Ordering Physician: Ligia Marie ?? Date of Service: 06/08/24 ?? Procedure(s): CT angio head neck ?? Accession Number(s): [id number] ? cc: James Trimble MD; Ligia Marie ? Report Number: ?? [id number]: Total DLP = 1370.00 mGy-cm ? CLINICAL [...] signed by Reginaldo Lowry MD in OV> ?06/08/240 ? DD/ ? TD/TT: 06/08/24 1919 ? Automotive General Sales Manager: ? Procedure Note Donotuseinterpreter, Image - 06/08/[address] [place] [address] [address] Scan Report Signed Patient: Jayne LaneMR#: [id number] : 6Acct:[id number] Age/Sex: 69 / FADM Date: 06/08/24 Loc: HO.ED Attending Dr: Ordering Physician: Ligia Marie Date of Service: 06/08/24 Procedure(s): CT angio head neck Accession Number(s): [id number] cc: James Trimble MD; Ligia Marie Report Number: [id number]: Total DLP = 1370.00 mGy-cm CLINICAL HISTORY: [...] in OV> 06/08/241919 DD/ 18 TD/TT: 06/08/241918 Automotive General Sales Manager: [facility] External Provider IMG CT PROCEDURES Edited Result - Final * XR Knee 4+ Views Right (06/08/2024 6:30 PM EDT) Only the most recent of2 resultswithin the time period is included. Anatomical Region Laterality Modality Lower Extremities, Knee Right Radiogra phic Imaging 06/08/2024 6:30 PM EDT Narrative 06/08/2024 6:32 PM EDT ? [facility] ?[address] ?[place] [address] ?XRay Report ? Signed ? Patient: Cappa,Jayne ?MR#: [id number] ? : 1955 ?Acct:[id number] ? Age/Sex: 69 / F ?ADM Date: 06/08/24 ? Loc: HO.ED ? Attending Dr: ? Ordering Physician: Ligia Marie ?? Date of Service: 06/08/24 ?? Procedure(s): XR knee RT 4V ?? Accession Number(s): [id number] ? cc: James Trimble MD; Ligia Marie [...] injury to the right knee. ?? 2. Fsmq-vf-ddzsopum lateral compartment degenerative changes. ? This document has been electronically signed by: Reginaldo Lowry MD on ?? 06/08/2024 18:30:46 ? Dictated By: ?Reginaldo Lowry MD ? Signed By: ?<Electronically signed by Reginaldo Lowry MD in OV> ?06/08/24 183 ? DD/ 183 ? TD/TT: 06/08/24 183 ? Automotive General Sales Manager: ? Procedure Note Donotuseinterpreter, Image - 06/08/[address] [address] XRay Report Signed Patient: Jayne LaneMR#: [id number] : 6Acct:[id number] Age/Sex: 69 / FADM Date: 06/08/24 Loc: HO.ED Attending Dr: Ordering Physician: Ligia Marie Date of Service: 06/08/24 Procedure(s): XR knee RT 4V Accession Number(s): [id number] cc: James Trimble MD; Ligia Marie CLINICAL [...] acute injury to the right knee. 2. Nteo-od-utliwrqe lateral compartment degenerative changes. This document has been electronically signed by: Reginaldo Lwory MD on 06/08/2024 18:30:46 Dictated By: Reginaldo Lowry MD Signed By: <Electronically signed by Reginaldo Lowry MD in OV> 06/08/24 1831 DD/ 1830 TD/TT: 06/08/24 1830 Automotive General Sales Manager: [facility] External Provider IMG XR PROCEDURES Edited Result - Final * XR Knee 4+ Views Left (06/08/2024 6:29 PM EDT) Only the most recent of2 resultswithin the time period is included. Anatomical Region Laterality Modality Lower Extremities, Knee Left Radiogra phic Imaging 06/08/2024 6:29 PM EDT Narrative 06/08/2024 6:30 PM EDT ? [facility] ?[address] ?[place] [address] ?XRay Report ? Signed ? Patient: Cappa,Jayne ?MR#: [id number] ? : 1955 ?Acct:[id number] ? Age/Sex: 69 / F ?ADM Date: 06/08/24 ? Loc: HO.ED ? Attending Dr: ? Ordering Physician: Ligia Marie ?? Date of Service: 06/08/24 ?? Procedure(s): XR knee LT 4V ?? Accession Number(s): [id number] ? cc: James Trimble MD; Ligia Marie [...] signed by Reginaldo Lowry MD in OV> ?06/08/241828 ? DD/ 28 ? TD/TT: 06/08/241828 ? Automotive General Sales Manager: ? Procedure Note Viridiana Gilbert - 06/08/[address] [address] XRay Report Signed Patient: Jayne LaneMR#: [id number] : 6Acct:[id number] Age/Sex: 69 / FADM Date: 06/08/24 Loc: HO.ED Attending Dr: Ordering Physician: Ligia Marie Date of Service: 06/08/24 Procedure(s): XR knee LT 4V Accession Number(s): [id number] cc: James Trimble MD; Ligia Marie CLINICAL [...] in OV> 06/08/241828 DD/ 28 TD/TT: 06/08/241828 Automotive General Sales Manager: [facility] External Provider IMG XR PROCEDURES Edited Result - Final * (ABNORMAL) Basic Metabolic Panel (06/08/2024 4:18 PM EDT) Sodium 142 135 - 145 mmol/L [facility] Potassium 4.8 3.3 - 5.1 mmol/L [facility] Chloride 107 96 - 108 mmol/L [facility] Carbon Dioxide 28 22 - 29 mmol/L [facility] Anion Gap 12 12 - 20 [facility] Urea Nitrogen (BUN) 33(H) 9 - 16 mg/dL [facility] Creatinine, Serum 1.41(H) 0.5 - 1.4 mg/dL [facility] Creatinine Clr Calc Pharmacy 34.3 [facility] Comment:Provided height and weight: 149.86 cm,79.7 kg.eGFR (calculated from the MDRD study equation) and eCrCl(calculated from the Cockcroft-Gault equation) are based ondifferent parameters and may not yield comparable results.If eCrCl result is absurd, please check patient'sheight/weight. Estimated Glomerular Filt Rate 37 [facility] Comment:Chronic Kidney Disea se: Estimated GFR < 60 mL/min/1.73v6Lwzvtw Kidney Disease: Estimated GFR < 15 mL/min/1.73m2 Glucose 227(H) 60 - 115 mg/dL [facility] Calcium 10.1 8.4 - 10.2 mg/dL [facility] 06/08/2024 4:18 PM EDT 06/08/2024 4:21 PM EDT us Generic External Data Provider LAB BLOOD ORDERAB LES Final Result [facility] [address] [place] [address] [phone] * (ABNORMAL) POCT Glucose (05/30/2024 9:25 AM EDT) Glucose Blood, POC 202(A) 60 - 200 mg/dL QC Media Lot # [id number] Lot# Expiration Date 601 Blood Capillary blood specimen / Unknown 05/30/2024 9:25 AM EDT us James Ashraf MD POINT OF CARE TEST EN TER/EDIT ORDERABLES Final Result * XR DEXA APPENDICULAR SKELETON (05/15/2024 8:15 AM EST) Anatomical Region Laterality Modality Abdomen Radiographic Rena ging 05/15/2024 8:15 AM EST Narrative 05/17/2024 7:37 AM EST ? [facility] ? [address] ?[place] [address] ? Mammography Report ? Signed ? Patient: Cappa,Jayne ?MR#: [id number] ? : 1955 ?Acct:[id number] ? Age/Sex: 68 / F ?ADM Date: 03/05/25 ? Loc: HO.MAMMO ? Attending Dr: Lina Jason MD ? Ordering Physician: Lina Jason MD ?Results: ? Date of Service: 05/15/24 ?Follow Up: ? Procedure(s): XR DEXA appendicular skeleton ?? Accession Number(s): [id number] ? cc: James Trimble MD; Lina Jason MD ? EXAMINATION: ??DXA BONE DENSITY EXTREMITY ? HISTORY: ??Estrogen deficiency ? TECHNIQUE: [employer] Dual energy absorptiometry (DEXA) ?? of the [...] the [employer]'s ?? [place] for Metabolic Bone Disease, a World Health Organization (WHO) ?? Collaborating Center. ? Electronically signed by: ??Zev Mukherjee MD ??05/17/2024 07:34 AM EST ?? RP ? Dictated By: ?Zev Mukherjee MD ? Signed By: ?<Electronically signed by Zev Mukherjee MD in OV> ?05/17/24 0734 ? DD/ 0815 ? TD/TT: 05/15/24 0840 ? Automotive General Sales Manager: ? Procedure Note Viridiana Gilbert - 05/17/2024 [place] [facility] [place] [facility] [address] [place] [address] Mammography Report Signed Patient: Jayne LaneMR#: [id number] : 6Acct:[id number] Age/Sex: 68 / FADM Date: 05/15/24 Loc: ROSARIO Attending Dr: Lina Jason MD Ordering Physician: Lina Jasonults: Date of Service: 05/15/24Follow Up: Procedure(s): XR DEXA appendicular skeleton Accession Number(s): [id number] cc: James Trimble MD; Lina Jason MD EXAMINATION: DXA BONE DENSITY EXTREMITY HISTORY: Estrogen deficiency TECHNIQUE: [employer] Dual energy absorptiometry (DEXA) of the lumbar [...] is a trademark of the [employer]'s [place] for Metabolic Bone Disease, a World Health Organization (WHO) Collaborating Center. Electronically signed by: Zev Mukherjee MD 05/17/2024 07:34 AM EST RP Dictated By: Zev Mukherjee MD Signed By: <Electronically signed by Zev Mukherjee MD in OV> 05/17/24 0734 DD/ 0815 TD/TT: 05/15/24 0840 Automotive General Sales Manager: [facility] External Provider IMG XR PROCEDURES Final Result * (ABNORMAL) Glucose, Whole Blood (05/01/2024 9:11 AM EST) Glucose, Whole Blood 150(H) 60 - 115 mg/dL [facility] Comment:METER #: [id number] 5Testing performed in the Endocrinology Department [address], [address], [facility]. 05/01/2024 9:11 AM EST 05/01/2024 9:15 AM EST Generic External Data Provider LAB BLOOD ORDERAB LES Final Result [facility] [address] [place] [phone] * (ABNORMAL) POCT HGB A1C (03/21/2024 9:51 AM EST) Hemoglobin A1C 8.4(A) 4.0 - 6.0 % QC Media Lot # [id number] Lot# Expiration Date ,500 Blood 03/21/2024 9:51 AM EST James Ashraf MD POINT OF CARE TEST EN TER/EDIT ORDERABLES Final Result * Lipid Panel, Standard (02/05/2024 7:55 AM EST) Triglycerides 104 <150 mg/dL [facility] Comment:Desirable Triglyceri de: less than 150 mg/dLBorderline High Triglyceride 150-199 mg/dLHigh Triglyceride: 200-499 mg/dLVery High Triglyceride: greater than or equal to 5OO mg/dL Cholesterol 123 <200 mg/dL [facility] Comment:Desirable Cholestero l: less than 200 mg/dLBorderline High Cholesterol: 200-239 mg/dLHigh Cholesterol: greater than 239 mg/dL LDL Cholesterol Calculated 62 <100 mg/dL [facility] Comment:Desirable LDL: less than 100 mg/dLNear Optimal/Above Optimal LDL: 110- 129 mg/dLBorderline High LDL: 130-159 mg/dLHigh LDL: 160-189 mg/dLVery High LDL: greater than or equal to 190 mg/dL HDL Cholesterol 41 >40 mg/dL [facility] Comment:Desirable HDL: great er than 40 mg/dL Note: This HDL assay may give artificially low results in patients with liver disease. Blood Venous blood specimen / Unknown 02/05/2024 7:55 AM EST 02/05/2024 11:17 AM EST us James Ashraf MD LAB BLOOD ORDERABLES Final Result [facility] [address] [place] [phone] * Pap Smear (06/22/2023 3:20 PM EDT) 06/22/2023 3:20 PM EDT 06/27/2023 11:15 AM EDT Narrative [facility] - 07/11/2023 2:16 PM EDT ----- ------- Name: ArianaJayne ?Age/Sex: 68/F ? : 1955 Unit#: [id number] ?? Attend Dr: Opal Carranza CNM ?Re06/22/23 ?Status: DEP REF ? Location: HO.LNP ?Disch: ? ----- ------- SPEC : [id number] ? RECD: 06/27/23-1115 ? STATUS: ??SOUT ? REQ NUM: [id number] ? CYRUS: 06/22/23-1520 ? SUBM DR: Opal [...] 66, 68) ? HPV testing performed by [facility], [place], [place]. ??See reference laboratory ?? portion of the EMR for entire report. 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 Material Received ?? ThinPrep-Cervical Copies To: ?? James Trimble MD ?? [address] ?? [place] [address] ?? [phone] ?? Opal Carranza CNM ?? [address] [facility] ?? [place] [address] ?? [phone] ----- ------- Signed (signature on file) Ev Preciado 07/11/23 1416 ? ----- ------- ? END OF REPORT ? us Generic External Data Provider LAB CYTOLOGY RANIERE MARTIN Final Result [facility] [address] [facility] [place] [phone] * BI Mammogram Screening Tomosynthesis Bilateral (02/22/2023 8:20 AM EST) Anatomical Region Laterality Modality Breast Bilateral Mammography 02/22/2023 8:20 AM EST Narrative 03/07/2023 9:08 PM EST ? [facility] [place] ? [address] ?[place] [address] ? Mammography Report ? Signed ? Patient: Cappa,Jayne ?MR#: [id number] ? : 1955 ?Acct:[id number] ? Age/Sex: 67 / F ?ADM Date: /13/23 ? Loc: HO.MAMMO ? Attending Dr: James Trimble MD ? Ordering Physician: Loraine Yadav MD ?Results: 1Ne ?? gative ? Date of Service: //23 ?Follow Up: 1 Year From Orig ?? inal Mammogram ? Procedure(s): MM tomosynthesis screening BI ?? Accession Number(s): [id number] ? cc: James Trimble MD; Loraine Yadav [...] 03/07/232103 ? DD/ 9 ? TD/TT: ? Automotive General Sales Manager: ? Procedure Note Ofelia, Image - 03/07/2023 [facility] [address] [place] [address] Mammography Report Signed Patient: Jayne LaneMR#: [id number] : 6Acct:[id number] Age/Sex: 67 / FADM Date: 02/22/23 Loc: HO.MAMMO Attending Dr: James Trimble MD Ordering Physician: Loraine Yadav MDResults: 1Ne gative Date of Service: 02/22/23Follow Up: 1 Year From Orig inal Mammogram Procedure(s): MM tomosynthesis screening BI Accession Number(s): [id number] cc: James Trimble MD; Loraine Yadav MD [...] MD in OV> 03/07/232103 DD/ 9 TD/TT: Automotive General Sales Manager: [facility] External Provider IMG BI PROCEDURES Final Result [...] Not Detected [facility] Comment: Methodology: Reading Coach-Mediated Amplification This assay detects E6/E7 viral messenger RNA (mRNA) from 14 high-risk HPV types (16,18,31,33,35,39,45,51,52,56,58,59,66,68). Cervical sources are required for HPV testing. If a vaginal source from a patient who has had a total hysterectomy with removal of cervix was submitted, please contact the testing laboratory for alternative testing options. For additional information, please refer to http://education.Pinguo/faq/LYX811g3 (This link if provided for information/ educational purposes only.) THIS TEST WAS PERFORMED AT: [employer] [address] [place] [address],[address] [place], [place] ??[phone] KEVEN CHAND MD 01/17/2022 4:22 PM EST us Opal Carranza HISTORICAL/NON ORDERABLE LABS Fi nal Result [facility] from Last 3 Months or Most Recently Relevant to Health Maintenance Insurance [facility] [employer] (O D-SNP) [place] [id number] Care Teams Wafer Polisher Relationship Specialty Start Date End Date James Flores MD [address] [place] [address] PCP - General Internal Medicine 02/04/14
--- OUTSIDE RECORDS SUMMARY | 2024-07-28 12:42 | XMS_ITS | Encounter Summary ---
Author Organization [employer] Address [address] [facility] 7t [place] [address] Care Team Providers Care Public Relations Officer Name Role Phone James Flores MD Primary Care Provide r Encounter Details Date Type Department Care Team ([facility] st Contact Info) Description 02/21/[address] [facility] [address] [place] [address] James Flores MD [address] [place] [address] Social History Tobacco Use Types Packs/Day Years [...] Description 09/03/2024 11:15 AM EDT Office Visit [facility] [address] [place] [address] James Flores MD [address] [place] [address] documented as of this encounter Procedures Procedure [...] on filedocumented in this encounter Care Teams Public Relations Officer Relationship Specialty Start Date End Date James Flores MD [address] [place] [address] PCP - General Internal Medicine 02/04/14 documented as of this encounter
--- OUTSIDE RECORDS SUMMARY | 2024-07-28 12:42 | XMS_ITS | Clinical Summary ---
Author Organization [facility] Address [address] [place] [address] Phone Care Team Providers Care Heating And Refrigeration Inspector Name Role Phone James Grant MD Primary [...] complete this topic Insurance [employer] [place] [id number] [employer] Care Teams Heating And Refrigeration Inspector Relationship Specialty Start Date End Date James Grant MD PCP - General 03/23/20
--- OUTSIDE RECORDS SUMMARY | 2024-07-28 12:42 | XMS_ITS ---
Author Name Mr. Arlen Márquez Address [address] [place] [address] Phone [phone] [facility] Care Team Providers Care Bench Molder Apprentice Name Role Phone Micah Judge Unavailable [phone] Reason for Referral Not Available Allergies, adverse [...] 2021-11-04 No Data Available [employer] Miscellaneous TEST BLOOD SUGAR THREE OR FOUR [...] of Service Diagnosis/Co mplaint No Data Available [facility], ([place]) 07/12/2022 Type 2 diabetes mellitus wit h diabetic chronic kidney diseaseChronic kidney disease, stage 3bLong term (current) use of insulinMorbid (severe) obesity due to excess caloriesBody mass index (BMI) 40.0-44.9, adultOther specified health statusConstipation, unspecifiedProblems related to health literacyPrsnl hx of TIA (TIA), and cereb infrc w/o resid deficits No Data Available [facility], [facility]) 07/12/2022 No Data Available [facility], [facility]) 07/12/2022 No Data Available [facility], [facility]) 07/12/2022 No Data Available [facility], [facility]) 07/12/2022 No Data Available [facility], [place] 07/12/2022 No Data Available [facility] 07/22/2022 Morbid (severe) obesity due to excess caloriesBody mass index (BMI) 40.0-44.9, adultType 2 diabetes mellitus with diabetic chronic kidney diseaseChronic kidney disease, stage 3bPrsnl hx of TIA (TIA), and cereb infrc w/o resid deficitsOther specified health status No Data Available [facility], [place] 07/22/2022 Vital Signs Date of Collection Vitals 2022-07-12 11:38:39 Height - 147.32 cmWe ight - 87.09 kgBody Mass Index (BMI) - 40.13 kg/m2 Social History Sex Female History of Procedures Procedures Service Procedure code Service date Servicing provider Phone# No Data Available [id number] 2022-07-12 No Data Available No Data Available [...] le No Data Available No Data Available [id number] 2022-07-22 No Data Available No Data Available [...] modifier 95)Continue to see PCP. Follow-up with [facility] as needed for any acute [...]
--- OUTSIDE RECORDS SUMMARY | 2024-07-28 12:42 | XMS_ITS | Encounter Summary ---
Author Organization [facility] Address [address] [place] [address] Phone Care Team Providers Care Crm Dynamics Developer Name Role Phone James Grant MD Primary Care Provider Unav ailable Reason for Visit * Reason Comments Med Refill Encounter Details Date Type Department Care Team (Late st Contact Info) Description 12/14/2022 Refill [facility] [address] [place] [address] Osmany Leung MD Social History [...] on filedocumented in this encounter Care Teams Crm Dynamics Developer Relationship Specialty Start Date End Date James Grant MD PCP - General 03/23/20 documented as of this encounter
--- OUTSIDE RECORDS SUMMARY | 2024-07-28 12:42 | XMS_ITS | Encounter Summary ---
Author Organization [employer] Address [address] [facility] [address] [place] [address] Care Team Providers Care Ehs Teacher Name Role Phone James Flores MD Primary Care Provide r Encounter Details Date Type Department Care Team (Late st Contact Info) Description 04/13/2022 Orders Only [facility] MEDICINE [address] [place] [address] [phone] April Olsen LPN Social History Tobacco Use [...] Description 09/03/2024 11:15 AM EDT Office Visit [facility] [address] [place], [place] [phone] James Flores MD [address] [place] [address] [phone] documented as of this encounter Visit Diagnoses Not on filedocumented in this encounter Care Teams Ehs Teacher Relationship Specialty Start Date End Date James Flores MD [address] [place] [address] PCP - General Internal Medicine 02/04/14 documented as of this encounter
[2024-07-28 13:17] VITALS: BP 149/62; PULSE 76; RESP 19; TEMP 35.4; O2SAT 100
[2024-07-28] MEDS: Ketorolac Tromethamine 30 MG/ML VIAL IM (14:19)
[2024-07-28 14:24] VITALS: BP 149/62; PULSE 76; RESP 19; TEMP 35.4; O2SAT 100
== END 2024-07-28 14:25 | disposition home or self-care (01) ==
PROVIDERS: Emergency Provider Emergency Medicine; PCP Internal Medicine
DX: S46.912A Strain of unspecified muscle, fascia and tendon at shoulder and upper arm level, left arm, initial encounter (principal); S90.112A Contusion of left great toe without damage to nail, initial encounter; W06.XXXA Fall from bed, initial encounter; M25.512 Pain in left shoulder; M79.675 Pain in left toe(s); E11.9 Type 2 diabetes mellitus without complications; I10 Essential (primary) hypertension; E78.5 Hyperlipidemia, unspecified; Y93.84 Activity, sleeping; Y92.003 Bedroom of unspecified non-institutional (private) residence as the place of occurrence of the external cause; Y99.9 Unspecified external cause status
CPT/HCPCS: 70450; 72125; 73030; 73564; 73660; 96372; 99284; J1885

== ENCOUNTER → 2024-07-28 11:46 | Outpatient (BNV) | payer OTHER, SELFPAY | PROVIDERS: Emergency Provider Emergency Medicine; PCP Internal Medicine; Visit Provider Radiology Diagnostic Radiology | DX: M25.78 Osteophyte, vertebrae (principal); R90.82 White matter disease, unspecified; M25.561 Pain in right knee; S40.912A Unspecified superficial injury of left shoulder, initial encounter; M79.675 Pain in left toe(s) | CPT/HCPCS: 70450; 72125; 73030; 73564; 73660 ==

== ENCOUNTER 2024-07-29 08:42 | Outpatient (REF) | payer OTHER, SELFPAY ==
--- NOTE | ~2024-07-29 | XR_ITS ---
EXAMINATION: XR KNEE 1-2 VIEWS RIGHT, XR KNEE 1 VIEW LEFT HISTORY: M25.569 - Pain in unspecified knee COMPARISON: Comparison is made with the prior examination of the right knee dated 07/28/2024 and the prior examination of the left knee dated 06/08/2024. FINDINGS: Standing AP views of both knees and additional sunrise patellar views of the bilateral knees are submitted. Osseous mineralization is normal. There is no fracture or dislocation. There is mild osteoarthritis of the lateral and patellofemoral compartments of the right knee and the medial and patellofemoral compartments of the left knee, with joint space narrowing and osteophyte formation. Evaluation for joint effusion is limited without a lateral views. The soft tissues are unremarkable. XR/XR knee LT 1V IMPRESSION: Osteoarthritis of the bilateral knees as described. Electronically signed by: Zev Mukherjee MD 07/29/2024 10:55 AM EDT
--- NOTE | ~2024-07-29 | XR_ITS ---
EXAMINATION: XR KNEE 1-2 VIEWS RIGHT, XR KNEE 1 VIEW LEFT HISTORY: M25.569 - Pain in unspecified knee COMPARISON: Comparison is made with the prior examination of the right knee dated 07/28/2024 and the prior examination of the left knee dated 06/08/2024. FINDINGS: Standing AP views of both knees and additional sunrise patellar views of the bilateral knees are submitted. Osseous mineralization is normal. There is no fracture or dislocation. There is mild osteoarthritis of the lateral and patellofemoral compartments of the right knee and the medial and patellofemoral compartments of the left knee, with joint space narrowing and osteophyte formation. Evaluation for joint effusion is limited without a lateral views. The soft tissues are unremarkable. XR/XR knee RT 2V IMPRESSION: Osteoarthritis of the bilateral knees as described. Electronically signed by: Zev Mukherjee MD 07/29/2024 10:55 AM EDT
== END 2024-07-29 08:43 | disposition home or self-care (01) ==
LOC: HO.HOSX 08:42
PROVIDERS: Visit Provider Physician Assistant
DX: M25.561 Pain in right knee (principal); M25.562 Pain in left knee; M17.0 Bilateral primary osteoarthritis of knee
CPT/HCPCS: 20610; 73560; 99202; J1010; J2003

== ENCOUNTER 2024-07-29 10:33 | Outpatient (AMB) | payer OTHER, SELFPAY ==
--- NOTE | 2024-07-29 10:45 | MHC.OFFVIS ---
Vital Signs 07/29/24 10:54 Height 4 ft 11 in Weight 178 lb BMI 35.9 Intake Visit Reasons: New patient Severe bilateral knee pain right>left Intake Note: Jayne is a 69 year old female who presents today with her LINE [employer]OL[employer] for an evaluation of bilateral knee pain. Patient was most recently seen at [facility] on 07/25/24 for right knee pain after a fall the night before. Patient reports ongoing pain for about 2 - 3 months. She expresses that her right knee is worse than the left. Patient was seen at the [facility] twice for increase of pain in her knee. Patient had a aspiration/injection many years ago which gave her relief but is unsure which knee she had that done. She mentions that her pain is on the posterior aspect of the right knee. Patient is having mild pain in her left knee. She has tried 3+ months Tylenol with mild relief. Allergies morphine [Morphine] Allergy (Intermediate, Verified 07/29/24 10:53) TACHYCARDIA, ANXIETY oxycodone [Percocet] Allergy (Intermediate, Verified 07/29/24 10:53) Palpitations acetaminophen [From Percocet] Allergy (Verified 07/29/24 10:53) Palpitations prednisone [PREDNISONE] Adverse Reaction (Intermediate, Verified 07/29/24 10:53) ANXIETY Medication List - Last Reconciled 07/29/24 by Zac Su PA-C acetaminophen 500 mg PO Q12H PRN acetaminophen ER (Tylenol Arthritis Pain) 650 mg PO Q12H PRN albuterol sulfate 90 mcg/actuation (Ventolin HFA) 2 puffs inhalation Q4-6H PRN amlodipine 5 mg PO DAILY atorvastatin (Lipitor) 80 mg PO DAILY baclofen 10 mg PO BID bisacodyl (Dulcolax (bisacodyl)) 10 mg LA DAILY PRN blood sugar diagnostic (OneTouch Verio test strips) TEST BLOOD SUGAR THREE OR FOUR TIMES DAILY blood-glucose meter (Breeze TechnologyTouch Verio Flex Meter) As directed blood-glucose sensor (FreeStyle Collin 3 Sensor device) USE DIRECTED. CHANGE EVERY 14 DAYS blood-glucose,diesel service journeyman,cont (FreeStyle Collin 3 [place]) As directed budesonide 90 mcg/actuation (Pulmicort Flexhaler) 2 inhalations inhalation BID calcium citrate-vitamin D3 200 mg-6.25 mcg (250 unit) 2 tabs PO DAILY calcium polycarbophil (Fiber-Lax) 1,250 mg (2 x 625 mg) PO QAM cholecalciferol (vitamin D3) (Vitamin D3) 25 mcg PO QAM clopidogrel 75 mg PO DAILY cyclobenzaprine 5 mg PO TID PRN diclofenac sodium 1% 2 grams topical QID docusate sodium 200 mg (2 x 100 mg) PO BEDTIME ezetimibe 10 mg PO QAM ferrous sulfate 325 mg PO TID fluticasone propionate 110 mcg/actuation (Flovent HFA) 1 puff inhalation BID furosemide 20 mg PO DAILY insulin glargine (Lantus Solostar U-100 Insulin) 38 units subcut BEDTIME insulin lispro (Humalog KwikPen (U-100) Insulin) Sliding Scale 6-16 subcutaneously 3 times a day; lancets As directed lancets (TRUEplus Lancets) As directed to test blood sugar 3-4 times a day lidocaine 5% 1 patch topical DAILY loratadine 10 mg PO QAM metoprolol tartrate 50 mg PO BID omeprazole 20 mg PO DAILY pen needle, diabetic As directed pioglitazone (Actos) 30 mg PO DAILY polyethylene glycol 3350 (Miralax) 17 grams PO DAILY 30 days semaglutide (Ozempic) 0.5 mg (0.736 mL) subcut QWEEK 4 weeks sennosides (senna) 8.6 mg PO DAILY PRN HPI HPI New patient Severe bilateral knee pain right>left: Details: 69-year-old female presents to the office today accompanied by her daughter for bilateral knee pain. She denies specific injury however she does have pain with activities such as walking stairs and bending. Her right is worse than the left. She has been in the emergency department on 2 separate occasions for her knee pain. She is taking prednisone. She has had no further treatment to date. [facility] Medical History Abnormal Pap smear of cervix Osteoporosis Goiter Hyperparathyroidism Hypercalcemia Vitamin D deficiency HLD (hyperlipidemia) HTN (hypertension) T2DM (type 2 diabetes mellitus) On beta anurag at home Chronic constipation Diabetes Anemia GERD (gastroesophageal reflux disease) Sleep apnea Asthma CAD (coronary artery disease) Angina pectoris HTN (hypertension) Surgical History Hx of heart artery stent Hx of cholecystectomy History of esophagogastroduodenoscopy (EGD) H/O colonoscopy Family History Father Liver problem Mother Diabetes Obesity Social History Household Members Other:: With Housing: House Alcohol intake: never Patient Tobacco Use Status: Never used Tobacco Current occupational status: disabled Sexual orientation: Straight/Heterosexual Gender identity: Female Review of Systems Const All systems reviewed & are unremarkable except as noted in HPI and below Physical Exam Vital Signs: BMI result Body Mass Index 35.9 Const General: cooperative and no acute distress Orientation/consciousness: patient oriented x3 Resp Effort & Inspection: normal respiratory effort and able to speak in complete sentences Cardio Peripheral pulses: Peripheral pulses 2+ throughout Neuro General: patient oriented x3 Extrem Other: Bilateral knee normal to inspection. Right knee tenderness to palpation along the medial and lateral joint. She has moderate size Hernandez's cyst posteriorly. Left knee full range of motion with mild discomfort. Calf supple and nontender neurovascularly intact. Office Procedures AMB Joint Injection/Aspiration Joint Injection/Aspiration Primary Site: right knee Prep: site was prepped using aseptic technique, ethochloride spray was applied and injection warnings given Injected: 40 mg of, DepoMedrol, with 8 mL of, 1% plain lidocaine and in the joint Approach Used: anterolateral Procedure: The patient tolerated the procedure well and there was some relief with the local anesthesia Coding 65212 - Glenohumeral/Tronchanteric Bursa/Intraarticular Procedure code (CPT) selection complete Results Reviewed Results Reviewed: X-rays obtained in the office today and reviewed by me of both knee show mild to moderate osteoarthritis with patellofemoral arthritis. Assessment & Plan Assessment & Plan (1) Osteoarthritis of knees, bilateral: Code(s): M17.0 - Bilateral primary osteoarthritis of knee Category: Medical Plan We discussed options today which include corticosteroid injection today. Because she is a diabetic and also on steroid prednisone we will inject only the right knee. Patient tolerated procedure well. I did stress the importance of monitoring her sugars over the next several days to be sure there are not too elevated. If there is any concern she will present to the emergency department. If she would like her left knee injected she can make an appointment with me in the next couple of weeks to have this done. I also placed an order for physical therapy. Orders: Orders XR knee LT 1V Today M25.562 - Pain in left knee XR knee RT 2V Today M25.569 - Pain in unspecified knee Coding Level of Care Code New Pt Level 3 (81739) Complex EM visit Add On G2211 Diagnoses Osteoarthritis of knees, bilateral M17.0 CPT Codes Coding - Joint 7: 55275 - Glenohumeral/Tronchanteric Bursa/Intraarticular ([id number])
[2024-07-29 10:54] VITALS: BMI 35.9
--- OUTSIDE RECORDS SUMMARY | 2024-07-29 11:11 | XMS_ITS | Encounter Summary ---
Author Organization [employer] Address [address] [facility] 7t [place] [address] Care Team Providers Care Mediator Name Role Phone James Flores MD Primary Care Provide r Encounter Details Date Type Department Care Team (Late st Contact Info) Description 08/22/2022 Orders Only [facility] CHC MED & PEDS [address] [place], [place] [phone] Jaja Hammond LPN Social History Tobacco Use [...] 11:15 AM EDT Office Visit [facility] MEDICINE [address] [place] [address] James Flores MD [address] [place], [place] [phone] documented as of this encounter Visit Diagnoses Not on filedocumented in this encounter Care Teams Mediator Relationship Specialty Start Date End Date James Flores MD [address] [place] [address] PCP - General Internal Medicine 02/04/14 documented as of this encounter
--- OUTSIDE RECORDS SUMMARY | 2024-07-29 11:12 | XMS_ITS | Encounter Summary ---
Author Organization [employer] Address [address] [facility] 7t [place] [address] Care Team Providers Care Supply Chain Intern Name Role Phone James Flores MD Primary Care Provide r Reason for Visit * Reason Onset Date Comments Nurse Triage 03/18/2024 Encounter Details Date Type Department Care Team ([facility] st Contact Info) Description 03/18/[address] [facility] MEDICINE [address] [place] [address] James Flores MD [address] [place], [place] [phone] Nurse Triage Social History Tobacco Use Types [...] EST Triage call with [facility] [place] [id number]. Pt reports continual coughing with cold symptoms. Pt was seen in [facility] 02/29/24 for cough and exacerbation of asthma. Pt reports has been using inhaler and nebulizer as prescribed though not every day.Pt denies having difficulty breathing. Pt requests to see provider again due to continuation of cough and cold symptoms neg for fever. Pt is advised to return to [facility] today open till 8pm and Pt agreeswith this disposition. Pt is requesting what medication could be taken for cough , Pt is taking BP medications and is advised to ask provider when seen in [facility] and Pt agrees. Insurance is verified [...] Description 09/03/2024 11:15 AM EDT Office Visit [facility] MEDICINE [address] [place] [address] James Flores MD [address] [place] [address] documented as of this encounter Visit Diagnoses Not on filedocumented in this encounter Additional Health Concerns Assessment Noted Time PHQ-9 Depression Total Score: 0 01/30/20 24 10:37 AM EST documented as of this encounter Care Teams Supply Chain Intern Relationship Specialty Start Date End Date James Flores MD [address] [place] [id number] PCP - General Internal Medicine 02/04/14 documented as of this encounter
--- OUTSIDE RECORDS SUMMARY | 2024-07-29 11:12 | XMS_ITS | Encounter Summary ---
Author Organization [employer] Address [address] [facility] [address] 7[address] [place] [address] Care Team Providers Care Assistant Professor Of Music Name Role Phone James Flores MD Primary Care Provide r Encounter Details Date Type Department Care Team ([facility] st Contact Info) Description 01/09/2023 Orders Only [facility] CHC MED & PEDS [address] [place] [address] Jaja Hammond LPN Social History Tobacco Use [...] 09/03/2024 11:15 AM EDT Office Visit [facility] MEDICINE [address] [place] [address] James Flores MD [address] [place] [address] documented as of this encounter Visit Diagnoses Not on filedocumented in this encounter Care Teams Assistant Professor Of Music Relationship Specialty Start Date End Date James Flores MD [address] [place] [id number] PCP - General Internal Medicine 02/04/14 documented as of this encounter
--- OUTSIDE RECORDS SUMMARY | 2024-07-29 11:12 | XMS_ITS | Encounter Summary ---
Author Organization [employer] Address [address] [facility] 7t [place] [address] Care Team Providers Care Trim Master Operator Name Role Phone James Flores MD Primary Care Provide r Encounter Details Date Type Department Care Team (Late st Contact Info) Description 04/13/2022 Orders Only [facility] MEDICINE [address] [place] [address] [phone] April Olsen LPN Social History Tobacco Use [...] Description 09/03/2024 11:15 AM EDT Office Visit [facility] MEDICINE [address] [place], [place] [phone] James Flores MD [address] [place] [address] [phone] documented as of this encounter Visit Diagnoses Not on filedocumented in this encounter Care Teams Trim Master Operator Relationship Specialty Start Date End Date James Flores MD [address] [place] [address] PCP - General Internal Medicine 02/04/14 documented as of this encounter
--- OUTSIDE RECORDS SUMMARY | 2024-07-29 11:12 | XMS_ITS | Encounter Summary ---
Author Organization [employer] Address [address] [facility] 7t [place] [address] Care Team Providers Care Video Surveillance Technician Name Role Phone James Flores MD Primary Care Provide r Reason for Visit * Reason Comments Med Refill Encounter Details Date Type Department Care Team ([facility] st Contact Info) Description 03/12/2023 Refill [facility] MEDICINE [address] [place] [address] James Flores MD [address] [place] [address] Chronic anemia Social History Tobacco Use Types [...] t he electric, gas, oil or water [employer] threatened to shut off services in your [...] 11:15 AM EDT Office Visit [facility] MEDICINE [address] [place] [address] James Flores MD [address] [place] [address] documented as of this encounter Visit Diagnoses Diagnosis Chronic anemia Unspecified anemia documented in this encounter Care Teams Video Surveillance Technician Relationship Specialty Start Date End Date James Flores MD [address] [place] [id number] PCP - General Internal Medicine 02/04/14 documented as of this encounter
--- OUTSIDE RECORDS SUMMARY | 2024-07-29 11:12 | XMS_ITS ---
Author Name Mr. Arlen Márquez Address [address] [place] [address] Phone [phone] [facility] Care Team Providers Care Hyperion Developer Name Role Phone Micah Judge Unavailable [phone] Reason for Referral Not Available Allergies, adverse [...] 10 mg Tab TAKE 1 TABLET BY LSIA TH EVERY MORNING 2022-01-30 No Data Available [...] 2021-11-04 No Data Available OneTouch Delica Plus [id number] Miscellaneous TEST BLOOD SUGAR THREE OR FOUR [...] of Service Diagnosis/Co mplaint No Data Available [facility], ([place]) 07/12/2022 Type 2 diabetes mellitus wit h diabetic chronic kidney diseaseChronic kidney disease, stage 3bLong term (current) use of insulinMorbid (severe) obesity due to excess caloriesBody mass index (BMI) 40.0-44.9, adultOther specified health statusConstipation, unspecifiedProblems related to health literacyPrsnl hx of TIA (TIA), and cereb infrc w/o resid deficits No Data Available [facility], [facility]) 07/12/2022 No Data Available [facility], [facility]) 07/12/2022 No Data Available [facility], [facility]) 07/12/2022 No Data Available [facility], [facility]) 07/12/2022 No Data Available [facility], ([place]) 07/12/2022 No Data Available [facility], ([place] 07/22/2022 Morbid (severe) obesity due to excess caloriesBody mass index (BMI) 40.0-44.9, adultType 2 diabetes mellitus with diabetic chronic kidney diseaseChronic kidney disease, stage 3bPrsnl hx of TIA (TIA), and cereb infrc w/o resid deficitsOther specified health status No Data Available [facility], ([place]) 07/22/2022 Vital Signs Date of Collection Vitals 2022-07-12 11:38:39 Height - 147.32 cmWe ight - 87.09 kgBody Mass Index (BMI) - 40.13 kg/m2 Social History Sex Female History of Procedures Procedures Service Procedure code Service date Servicing provider Phone# No Data Available [id number] 2022-07-12 No Data Available No Data Available [...] le No Data Available No Data Available [id number] 2022-07-22 No Data Available No Data Available [...] modifier 95)Continue to see PCP. Follow-up with [facility] as needed for any acute or disease [...]
--- OUTSIDE RECORDS SUMMARY | 2024-07-29 11:12 | XMS_ITS | Encounter Summary ---
Author Organization [employer] Address [address] [facility] 7t [place] [address] Care Team Providers Care Make Up Editor Name Role Phone James Flores MD Primary Care Provide r Reason for Visit * Reason Comments Med Refill Encounter Details Date Type Department Care Team ([facility] st Contact Info) Description 09/04/2023 Refill [facility] MEDICINE [address] [place] [address] Name, MD Loki [address] [place] [address] Gastroesophageal reflux disease without esophagitis Social History [...] the past 12 months, has t he [employer],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 threatened to shut [...] Office Visit [facility]ICINE [address] [place] [address] James Flores MD [address] [place] [phone] documented as of this encounter Visit Diagnoses Diagnosis Gastroesophageal reflux disease without esophagitis Esophageal reflux documented in this encounter Care Teams Make Up Editor Relationship Specialty Start Date End Date James Flores MD [address] [place] [id number] PCP - General Internal Medicine 02/04/14 documented as of this encounter
--- OUTSIDE RECORDS SUMMARY | 2024-07-29 11:12 | XMS_ITS | Encounter Summary ---
Author Organization [facility] Address [address] [place] [address] Phone Care Team Providers Care Chicken Tender Name Role Phone James Grant MD Primary Care Provider Unav ailable Reason for Visit * Reason Comments Med Refill Encounter Details Date Type Department Care Team (Late st Contact Info) Description 12/14/2022 Refill [facility] [address] [place] [address] Osmany Leung MD Social History [...] on filedocumented in this encounter Care Teams Chicken Tender Relationship Specialty Start Date End Date James Grant MD PCP - General 03/23/20 documented as of this encounter
--- OUTSIDE RECORDS SUMMARY | 2024-07-29 11:12 | XMS_ITS | Encounter Summary ---
Author Organization [employer] Address [address] [facility] 7t [place] [address] Care Team Providers Care Director Specialty Name Role Phone James Flores MD Primary Care Provide r Encounter Details Date Type Department Care Team (Late st Contact Info) Description 06/14/2022 Orders Only [facility] CHC MED & PEDS [address] [place], [place] [phone] Jaja Hammond LPN Social History Tobacco Use [...] Visit [facility] MEDICINE [address] [place] [address] James Flores MD [address] [place], [place] [phone] documented as of this encounter Visit Diagnoses Not on filedocumented in this encounter Care Teams Director Specialty Relationship Specialty Start Date End Date James Flores MD [address] [place] [address] PCP - General Internal Medicine 02/04/14 documented as of this encounter
--- OUTSIDE RECORDS SUMMARY | 2024-07-29 11:12 | XMS_ITS | Encounter Summary ---
Author Organization [employer] Address [address] [facility] [address] [place] [address] Care Team Providers Care Cancer Program Director Name Role Phone James Flores MD Primary Care Provide r Reason for Visit * Reason Comments Med Refill Encounter Details Date Type Department Care Team ([facility] st Contact Info) Description 05/10/2024 Refill [facility] [address] [place] [address] Coco Montiel NP [address] [place] [address] Mild intermittent asthma without complication Social History [...] EDT Office Visit [facility] MEDICINE [address] [place] [address] James Flores MD [address] [place] [address] documented as of this encounter Visit Diagnoses Diagnosis Mild intermittent asthma without complication documented in this encounter Additional Health Concerns Assessment Noted Time PHQ-9 Depression Total Score: 0 01/30/20 24 10:37 AM EST documented as of this encounter Care Teams Cancer Program Director Relationship Specialty Start Date End Date James Flores MD [address] [place] [address] PCP - General Internal Medicine 02/04/14 documented as of this encounter
--- OUTSIDE RECORDS SUMMARY | 2024-07-29 11:12 | XMS_ITS | Encounter Summary ---
Author Organization [employer] Address [address] [facility] 7t [place] [address] Care Team Providers Care Envelope Machine Operator Name Role Phone James Flores MD Primary Care Provide r Reason for Visit * Reason Comments Med Refill Encounter Details Date Type Department Care Team ([facility] st Contact Info) Description 08/27/2023 Refill [facility] MEDICINE [address] [place] [address] Name, MD Loki [address] [place] [address] Gastroesophageal reflux disease without esophagitis Social History [...] the past 12 months, has t he [employer], [employer],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 threatened to shut [...] EDT Office Visit [facility] MEDICINE [address] [place] [address] James Flores MD [address] [place] [phone] documented as of this encounter Visit Diagnoses Diagnosis Gastroesophageal reflux disease without esophagitis Esophageal reflux documented in this encounter Care Teams Envelope Machine Operator Relationship Specialty Start Date End Date James Flores MD [address] [place] [phone] PCP - General Internal Medicine 02/04/14 documented as of this encounter
--- OUTSIDE RECORDS SUMMARY | 2024-07-29 11:12 | XMS_ITS | Encounter Summary ---
Author Organization [employer] Address [address] [facility] 7t [place] [address] Care Team Providers Care Lube Attendant Name Role Phone James Flores MD Primary Care Provide r Reason for Visit * Reason Onset Date Comments Pre op 01/11/2024 Encounter Details Date Type Department Care Team ([facility] st Contact Info) Description 01/11/2024 Telephone [facility] [address] [place] [address] James Flores MD [address] [place], [place] [phone] Pre op Social History Tobacco Use Types [...] [facility] Surgeon's office number: [phone] Surgeon's office fax number: [phone] Contact name (person you spoke with): Marcelo Last office note from surgeon requested: No Pt scheduled for Pre op on 02/07/24 with Pro documented in this encounter Plan of Treatment Upcoming Encounters Date Type Department Care Team (Late st Contact Info) Description 09/03/2024 11:15 AM EDT Office Visit [facility] [address] [place] [address] James Flores MD [address] [place] [address] documented as of this encounter Visit Diagnoses Not on filedocumented in this encounter Care Teams Lube Attendant Relationship Specialty Start Date End Date James Flores MD [address] [place] [address] PCP - General Internal Medicine 02/04/14 documented as of this encounter
--- OUTSIDE RECORDS SUMMARY | 2024-07-29 11:12 | XMS_ITS | Encounter Summary ---
Author Organization [employer] Address [address] [facility] 7t [place] [address] Care Team Providers Care Spray Dry Operator Name Role Phone James Flores MD Primary Care Provide r Reason for Visit * Reason Onset Date Comments Durable Medical Equipment 07/25/2024 Encounter Details Date Type Department Care Team (Late st Contact Info) Description 07/25/2024 Telephone [facility] MEDICINE [address] [place] [address] James Flores MD [address] [place] [address] Durable Medical Equipment Social History Tobacco Use [...] Office Visit [facility] MEDICINE [address] [place] [address] James Flores MD [address] [place] [address] documented as of this encounter Visit Diagnoses Not on filedocumented in this encounter Additional Health Concerns Assessment Noted Time PHQ-9 Depression Total Score: 0 01/30/20 24 10:37 AM EST documented as of this encounter Care Teams Spray Dry Operator Relationship Specialty Start Date End Date James Flores MD [address] [place] [address] PCP - General Internal Medicine 02/04/14 documented as of this encounter
--- OUTSIDE RECORDS SUMMARY | 2024-07-29 11:12 | XMS_ITS | Encounter Summary ---
Author Organization [employer] Address [address] [facility] [address] [address] 7t [place] [address] Care Team Providers Care Product Info Specialist Name Role Phone James Flores MD [...] Office Visit [facility] MEDICINE [address] [place] [address] James Flores MD [address] [place] [address] documented as of this encounter Procedures Procedure [...] AM EDT) Influenza A PCR NEGATIVE Negative [facility] Influenza B PCR NEGATIVE Negative [facility] Resp Syncy Virus RNA Qual PCR NEGATIVE Negative [facility] SARS COV2 PCR NEGATIVE Negative [facility] Comment:All test results mus t [...] use by authorized laboratories.Testing performed on the [employer] GeneXpert utilizingreal-time RT-PCR.All SARS CoV2 and positive influenza A/B results arereported to [facility]. 07/25/2024 11:4 7 AM EDT 07/25/2024 11:58 AM EDT us Generic External Data Provider LAB MICROBIOLOGY - GENERAL ORDERABLES Final Result [facility] [address] [place] [phone] * (ABNORMAL) CBC auto differential (07/25/2024 9:31 AM EDT) White Blood Count 6.4 4.8 - 10.8 X10*3/uL [facility] Red Blood Count 3.43(L) 4.20 - 5.50 X10*6/uL [facility] Hemoglobin 10.7(L) 12.0 - 16.0 g/dl [facility] Hematocrit 32.8(L) 37.0 - 47.0 % [facility] Mean Corpuscular Volume 95.6 80.0 - 98.0 fL [facility] Mean Corpuscular Hemoglobin 31.2 27.0 - 33.0 pg [facility] Mean Corpuscular HGB Conc 32.6 31.0 - 35.0 g/dl [facility] Red Cell Distribution Width 13.4 11.0 - 16.0 % [facility] Platelet Count 198 160 - 400 X10*3/uL [facility] Mean Platelet Volume 10.3 9.4 - 12.3 fL [facility] Neutrophils Percent Auto 67.3 45 - 73 % [facility] Imm Gran Pct Auto 0.5(H) 0.0 - 0.4 % [facility] Lymphocytes Percent Auto 25.0 20 - 40 % [facility] Monocytes Percent Auto 5.8 2 - 11 % [facility] Eosinophils Percent Auto 1.1 0 - 4 % [facility] Basophils Percent Auto 0.3 0 - 2 % [facility] NRBC Pct Auto 0.0 0.0 - 0.2 /100WBC [facility] Neutrophils Absolute Auto 4.3 2.0 - 8.3 x10*3/uL [facility] Imm Gran Abs Auto 0.03 0.00 - 0.03 X10*3/uL [facility] Lymphocytes Absolute Auto 1.6 1.2 - 4.9 X10*3/uL [facility] Monocytes Absolute Auto 0.4 0.1 - 1.2 X10*3/uL [facility] Eosinophils Absolute Auto 0.1 0.0 - 0.4 X10*3/uL [facility] Basophils Absolute Auto 0.0 0.0 - 0.2 X10*3/uL [facility] NRBC Abs Auto 0.000 0.0 - 0.012 X10*3/uL [facility] 07/25/2024 9:31 AM EDT 07/25/2024 9:36 AM EDT us Generic External Data Provider LAB BLOOD ORDERAB LES Final Result [facility] [address] [place] [phone] [phone] * (ABNORMAL) Comprehensive Metabolic Panel (07/25/2024 9:30 AM EDT) Sodium 144 135 - 145 mmol/L [facility] Potassium 4.4 3.3 - 5.1 mmol/L [facility] Chloride 111(H) 96 - 108 mmol/L [facility] Carbon Dioxide 26 22 - 29 mmol/L [facility] Anion Gap 11(L) 12 - 20 [facility] Urea Nitrogen (BUN) 34(H) 9 - 16 mg/dL [facility] Creatinine, Serum 1.47(H) 0.5 - 1.4 mg/dL [facility] Creatinine Clr Calc Pharmacy 35.4 [facility] Comment:Provided height and weight: 157.48 cm,80 kg.eGFR (calculated from the MDRD study equation) and eCrCl(calculated from the Cockcroft-Gault equation) are based ondifferent parameters and may not yield comparable results.If eCrCl result is absurd, please check patient'sheight/weight. Estimated Glomerular Filt Rate 35 [facility] Comment:Chronic Kidney Disea se: Estimated GFR < 60 mL/min/[id number] Kidney Disease: Estimated GFR < 15 mL/min/1.73m2 Glucose 144(H) 60 - 115 mg/dL [facility] Calcium 9.8 8.4 - 10.2 mg/dL [facility] Bilirubin, Total 0.2 0.0 - 1.0 mg/dL [facility] Aspartate Amino Transferase 26 5 - 31 U/L [facility] Alanine Aminotransferase 15 0 - 31 U/L [facility] Total Protein 6.5 6.5 - 8.0 g/dL [facility] Albumin Level 3.8 3.5 - 5.0 g/dL [facility] Alkaline Phosphatase 56 39 - 117 U/L [facility] 07/25/2024 9:30 AM EDT 07/25/2024 9:36 AM EDT us Generic External Data Provider LAB BLOOD ORDERAB LES Final Result [facility] [address] [place] [phone] * XR Femur 2+ Views Right (07/25/2024 8:56 AM EDT) Anatomical Region Laterality Modality Lower Extremities, Femur Right Radiogr aphic Imaging 07/25/2024 8:56 AM EDT Narrative 07/25/2024 9:57 AM EDT ? [facility] ?[address] ?[place] [address] ?XRay Report ? Signed ? Patient: Cappa,Jayne ?MR#: [id number] ? : 1955 ?Acct:[id number] ? Age/Sex: 69 / F ?ADM Date: 07/25/24 ? Loc: HO.ED ? Attending Dr: ? Ordering Physician: Shreyas Arrieta MD ?? Date of Service: 07/25/24 ?? Procedure(s): XR femur RT 2V ?? Accession Number(s): [id number] ? cc: Shreyas Arrieta MD; James Trimble [...] DD/ 0856 ? TD/TT: 07/25/24 0921 ? Social Media Intern: ? Procedure Note Viridiana Gilbert - 07/25/[address] [address] XRay Report Signed Patient: Jayne LaneMR#: [id number] : 6Acct:[id number] Age/Sex: 69 / FADM Date: 07/25/24 Loc: HO.ED Attending Dr: Ordering Physician: Shreyas Arrieta MD Date of Service: 07/25/24 Procedure(s): XR femur RT 2V Accession Number(s): [id number] cc: Shreyas Arrieta MD; James Trimble MD [...] 07/25/24 0954 DD/ 0856 TD/TT: 07/25/24 0921 Social Media Intern: [facility] External Provider IMG XR PROCEDURES Final Result * XR Knee 3 Views Right (07/25/2024 8:55 AM EDT) Anatomical Region Laterality Modality Lower Extremities, Knee Right Radiogra phic Imaging 07/25/2024 8:55 AM EDT Narrative 07/25/2024 9:49 AM EDT ? [facility] ?[address] ?[place] [address] ?XRay Report ? Signed ? Patient: Cappa,Jayne ?MR#: [id number] ? : 1955 ?Acct:[id number] ? Age/Sex: 69 / F ?ADM Date: 05/15/25 ? Loc: HO.ED ? Attending Dr: ? Ordering Physician: Corvi,Shreyas MD ?? Date of Service: 07/25/24 ?? Procedure(s): XR knee RT 3V ?? Accession Number(s): [id number] ? cc: Shreyas Arrieta MD; James Trimble [...] DD/ 0855 ? TD/TT: 07/25/24 0921 ? Social Media Intern: ? Procedure Note Ofelia, Image - 07/25/2024 [place] [address] XRay Report Signed Patient: Olivia Lane#: [id number] : 6Acct:[id number] Age/Sex: 69 / FADM Date: 07/25/24 Loc: HO.ED Attending Dr: Ordering Physician: Shreyas Arrieta MD Date of Service: 07/25/24 Procedure(s): XR knee RT 3V Accession Number(s): [id number] cc: Shreyas Arrieta MD; James Trimble MD [...] 07/25/24 0946 DD/ 0855 TD/TT: 07/25/24 0921 Social Media Intern: [facility] External Provider IMG XR PROCEDURES Final Result documented in this encounter Visit Diagnoses Not on filedocumented in this encounter Additional Health Concerns Assessment Noted Time PHQ-9 Depression Total Score: 0 01/30/20 24 10:37 AM EST documented as of this encounter Care Teams Product Info Specialist Relationship Specialty Start Date End Date James Flores MD [address] [place] [address] PCP - General Internal Medicine 02/04/14 documented as of this encounter
--- OUTSIDE RECORDS SUMMARY | 2024-07-29 11:12 | XMS_ITS | Encounter Summary ---
Author Organization [employer] Address [address] [facility] 7t [place] [address] Care Team Providers Care District Extension Service Agent Name Role Phone James Flores MD Primary Care Provide r Reason for Visit * Reason Onset Date Comments Durable Medical Equipment 09/27/2023 Encounter Details Date Type Department Care Team (Late st Contact Info) Description 09/27/2023 Telephone [facility] MEDICINE [address] [place] [address] James Flores MD [address] [place] [phone] Durable Medical Equipment Social History Tobacco Use [...] 1 flip pillow DME Please contact at [phone] * Telephone Encounter - Fernando Christie - 09/27/2023 2:40 PM EDT Tc from pt 10 in 1 flip pillow due to issues sleeping. Pt would like script to be faxed to [facility]. If any questions you can contact pt at [phone]. documented in this encounter Plan of Treatment Upcoming Encounters Date Type Department Care Team (Late st Contact Info) Description 09/03/2024 11:15 AM EDT Office Visit [facility] MEDICINE [address] [place] [address] James Flores MD [address] [place] [address] documented as of this encounter Visit Diagnoses Not on filedocumented in this encounter Care Teams District Extension Service Agent Relationship Specialty Start Date End Date James Flores MD [address] [place] [phone] PCP - General Internal Medicine 02/04/14 documented as of this encounter
--- OUTSIDE RECORDS SUMMARY | 2024-07-29 11:12 | XMS_ITS | Patient Health Record ---
Author Organization [employer] [facility] Address [address] [place] [address] Care Team Providers Care Circulation Clerk Name Role Phone Rudy Ashraf MD, James Primary Care Provide r Unavailable Moris Duron Jr Unavailable Reason For Referral No Information Plan Of Treatment No Information Insurance Providers Payer Name Payer Address Payer Phone Subscriber Number Group Number Insured Name Patient Relationship to Insured Coverage Start Date Coverage End Date MEDICARE OF [place] [address] [place] [id number] STEPHANI JOE Self - patient is the insured MEDICAID OF [facility] [address] [place] [address] [id number] STEPHANI JOE Self - patient is the insured
--- OUTSIDE RECORDS SUMMARY | 2024-07-29 11:12 | XMS_ITS | Encounter Summary ---
Author Organization [employer] Address [address] [facility] 7t [place] [address] Care Team Providers Care Ferryboat Ticket Taker Name Role Phone James Flores MD Primary Care Provide r Reason for Visit * Reason Comments Med Refill Encounter Details Date Type Department Care Team ([facility] st Contact Info) Description 07/25/2024 Refill [facility] MEDICINE [address] [place] [address] James Flores MD [address] [place] [address] Chronic anemia Social History Tobacco Use Types [...] Description 09/03/2024 11:15 AM EDT Office Visit [facility] MEDICINE [address] [place] [address] James Flores MD [address] [place] [address] documented as of this encounter Visit Diagnoses Diagnosis Chronic anemia Unspecified anemia documented in this encounter Additional Health Concerns Assessment Noted Time PHQ-9 Depression Total Score: 0 01/30/20 10:37 AM EST documented as of this encounter Care Teams Ferryboat Ticket Taker Relationship Specialty Start Date End Date James Flores MD [address] [place] [address] PCP - General Internal Medicine 02/04/14 documented as of this encounter
--- OUTSIDE RECORDS SUMMARY | 2024-07-29 11:12 | XMS_ITS | Encounter Summary ---
Author Organization [employer] Address [address] 7[address] [place] [address] Care Team Providers Care Help Desk Specialist Name Role Phone James Flores MD Primary Care Provide r Encounter Details Date Type Department Care Team ([facility] st Contact Info) Description 01/11/2024 Telephone [facility] MEDICINE [address] [place], [place] [phone] James Flores MD [address] [place], [place] [phone] Social History Tobacco Use Types Packs/Day Years [...] Office Visit [facility] MEDICINE [address] [place] [address] James Flores MD [address] [place] [address] documented as of this encounter Visit Diagnoses Not on filedocumented in this encounter Care Teams Help Desk Specialist Relationship Specialty Start Date End Date James Flores MD [address] [place] [address] PCP - General Internal Medicine 02/04/14 documented as of this encounter
--- OUTSIDE RECORDS SUMMARY | 2024-07-29 11:12 | XMS_ITS | Encounter Summary ---
Author Organization [employer] Address [address] [facility] 7t [place] [address] Care Team Providers Care Compressor Mechanic Bus Name Role Phone James Flores MD Primary Care Provide r Encounter Details Date Type Department Care Team ([facility] st Contact Info) Description 03/14/2023 Telephone [facility] [address] [place] [address] Adriana Odell [place] Social History Tobacco Use [...] [facility] MEDICINE [address] [place] [address] James Flores MD [address] [place] [address] documented as of this encounter Visit Diagnoses Not on filedocumented in this encounter Care Teams Compressor Mechanic Bus Relationship Specialty Start Date End Date James Flores MD [address] [place] [address] PCP - General Internal Medicine 02/04/14 documented as of this encounter
--- OUTSIDE RECORDS SUMMARY | 2024-07-29 11:12 | XMS_ITS | Encounter Summary ---
Author Organization [employer] [facility] Address [address] [facility] 7t [place] [address] Care Team Providers Care Commercial Roofer Name Role Phone James Flores MD Primary Care Provide r Reason for Visit * Reason Comments Med Refill Encounter Details Date Type Department Care Team (Late st Contact Info) Description 08/21/2022 Refill [facility] MEDICINE [address] [place], [place] [phone] James Flores MD [address] [place], [place] [phone] Social History Tobacco Use Types Packs/Day Years [...] Description 09/03/2024 11:15 AM EDT Office Visit [facility] MEDICINE [address] [place], [place] [phone] James Flores MD [address] [place], [place] [phone] documented as of this encounter Visit Diagnoses Not on filedocumented in this encounter Care Teams Commercial Roofer Relationship Specialty Start Date End Date James Flores MD [address] [place] [address] PCP - General Internal Medicine 02/04/14 documented as of this encounter
--- OUTSIDE RECORDS SUMMARY | 2024-07-29 11:12 | XMS_ITS | Clinical Summary ---
Author Organization [facility] Address [address] [place] [address] Phone Care Team Providers Care Teacher Industrial Arts Name Role Phone James Grant MD Primary [...] complete this topic Insurance [place] [id number] [place] Care Teams Teacher Industrial Arts Relationship Specialty Start Date End Date James Grant MD PCP - General 03/23/20
--- OUTSIDE RECORDS SUMMARY | 2024-07-29 11:12 | XMS_ITS | Clinical Summary ---
Author Organization [employer] Address [address] [place] [address] Care Team Providers Care Poultry Packer Name Role Phone James Flores MD Primary [...] the morning. 023 Active Calcium Citrate-Vitamin D ([place] Calcium/Vitamin D) 200-6.25 MG-MCG tablet TAKE 2 [...] CHANGE EVERY 14 DAYS Active Continuous Glucose Customer Counter Representative (FreeStyle [place]) device USE DIRECTED Active bisacodyl (Dulcolax) 10 [...] complication, with long-term current use of insulin ([facility]) INJECT 35 UNITS SUBCUTANEOUSLY ONCE DAILY 15 mL 2 024 Active nystatin (Mycostatin) 790784 UNIT/GM powderIndication s:Tinea corporis Apply topically 2 [...] complication, with long-term current use of insulin ([facility]) USE DIRECTED FOUR TIMES DAILY 100 each 6 025 Active HumaLOG KWIKPEN 100 UNIT/ML injectionIndicat ions:Type 2 diabetes mellitus without complication, with long-term current use of insulin ([facility]) INJECT 6 TO 16 UNITS [...] complication, with long-term current use of insulin ([facility]) USE DIRECTED FOUR TIMES DAILY 100 each 6 024 2024 Discontinued HumaLOG KWIKPEN 100 UNIT/ML injectionIndicat ions:Type 2 diabetes mellitus without complication, with long-term current use of insulin ([facility]) INJECT 6 TO 16 UNITS [...] to far out. Pt did see an Assistant Counsel that did not see any abnormalitites and [...] acute injury to the right knee. 2. Wiqj-lc-ufnfjmbr lateral compartment degenerative changes. Left: IMPRESSION: 1. [...] underwent Colpo with biopsies & ECC per MITER GRINDER OPERATOR notes from 04/2017 Colonoscopy: 07/2022 Tubular adenoma repeat 3 years Vaccines: Flu shot: tdap: 05/31/2013 Dexa scan:. 04/28/2015 showed osteopenia Assessment & Plan (01/30/2024 11:02 AM EST): Routine physical exam today: within normal limits Mammogram: NL : 02/22/2023 Pap Smear: 06/27/2023: Normal In 11/24/2016 ASCUS with positive HPV. Pt underwent Colpo with biopsies & ECC per MITER GRINDER OPERATOR notes from 04/2017 Colonoscopy: 07/2022 Tubular adenoma repeat 3-5 years Vaccines: Flu shot: tdap: 05/31/2013 Dexa scan:. 04/28/2015 showed osteopenia Assessment & Plan (01/19/2023 1:43 PM EST): Mammogram: NL : 01/29/2021 Pap Smear: 11/24/2016 ASCUS with positive HPV. Pt underwent Colpo with biopsies & ECC per MITER GRINDER OPERATOR notes from 04/2017 she was supposed [...] Hx of this Pt was admitted to [facility] from :12/31-12/22/2020 Patient presented to ED with [...] Hx of this Pt was admitted to [facility] from :12/31-12/22/2020 Patient presented to ED with [...] Plan (01/31/2023 11:27 AM EST): Seen at [facility] 01/28/2023 with an asthma exacerbation Doing better [...] disease and negative nuclear stress test at [facility] . Due to her Hx of [...] disease and negative nuclear stress test at [facility] . Due to her recent CVA [...] disease and negative nuclear stress test at [facility] . Due to her recent CVA [...] Encounters Date Type Department Care Team Description 07/28/2024 Orders Only [facility] External Provider, [facility] 07/25/2024 Telephone [facility] [address] [place] [phone] James Flores MD Durable Medical Equipment 07/25/2024 Orders Only GENERIC EXTERNAL DATA DEPARTMENT Provider, Generic External Data 07/25/[address] [address] James Flores MD Chronic anemia 07/24/2024 2:40 PM EDT Office Visit [facility] [address] [address] Lidya Pinedo MD Primary osteoarthritis of left knee (Primary Dx) 07/23/2024 11:00 AM EDT Telemedicine [facility] [address] [place] [address] James Flores MD Goiter (Primary Dx); Temporal arteritis ([facility]); Acute pain of both knees 07/23/2024 Travel 07/23/2024 Refill [facility] [address] [place] [address] James Flores MD Type 2 diabetes mellitus without complication, with long-term current use of insulin (CMS/HCC) 07/22/2024 [facility] [address] [address] Ludwin Sylvester MD 07/22/2024 Telephone [facility] [address] [place] [phone] James Flores MD chartprep 07/22/[address] [address] Ludwin Sylvester MD Appointment Request 07/22/2024 Orders Only [facility] [address] [place] [address] Ludwin Sylvester MD 07/20/2024 Refill [facility] [address] [place] [address] Ruchi Nolan MD Type 2 diabetes mellitus without complication, with long-term current use of insulin ([facility]) 07/15/2024 Telephone [facility] [address] [place] [address] James Flores MD Results 07/11/2024 Telephone [facility] [address] [place] [address] Ludwin Sylvester MD 07/09/2024 Telephone [facility] [address] [place] [address] Ludwin Sylvester MD 07/04/2024 Telephone [facility] [address] [place] [address] James Flores MD Lab order question 07/03/2024 Telephone [facility] [address] [place] [address] Ludwin Sylvester MD 07/02/2024 Telephone [facility] [address] [place] [address] Ludwin Sylvester MD 07/02/2024 Orders Only [facility] [address] [place] [address] Ludwin Sylvester MD 06/28/2024 Orders Only [facility] [address] [place] [address] Ludwin Sylvester MD 06/26/2024 10:00 AM EDT Office Visit [facility] [address] [place] [phone] Ludwin Sylvester MD Temporal headache (Primary Dx); Hypertension, unspecified type 06/22/2024 Refill [facility] [address] [place] [address] James Flores MD Seasonal allergies 06/20/2024 Telephone [facility] [address] [place] [address] Ludwin Sylvester MD 06/20/2024 Telephone [facility] [address] [place] [address] Sarah Mark RN Plan of care 06/20/2024 Orders Only [facility] [address] [address] Ludwin Sylvester MD Giant cell arteritis ([facility]) (Primary Dx); Anxiety 06/20/2024 Telephone [facility] [address] [place] [address] Sarah Mark RN Plan of care 06/19/2024 10:20 AM EDT Office Visit [facility] [address] [address] Ludwin Sylvester MD Neck pain (Primary Dx); Acute intractable headache, unspecified headache type; Acute pain of both knees; Hypertension, unspecified type 06/19/2024 Orders Only GENERIC EXTERNAL DATA DEPARTMENT Provider, Generic External Data 06/12/[address] [address] Diana Coates, LISA Results 06/12/2024 Orders Only [address] [address] James Flores MD Thyroid nodule (Primary Dx) 06/08/2024 Orders Only GENERIC EXTERNAL DATA DEPARTMENT Provider, Generic External Data 05/30/2024 9:15 AM EDT Office Visit [address] [address] James Flores MD Type 2 diabetes mellitus with stage 3a chronic kidney disease, with long-term current use of insulin ([facility]) (Primary Dx); Primary hypertension; Mixed hyperlipidemia; Coronary artery disease involving elim ira coronary artery of elim ira heart without angina pectoris; Severe obesity ([facility]); Dietary counseling; Exercise counseling; History of CVA (cerebrovascular accident); Age-related osteoporosis without current pathological fracture; Acute pain of both knees; Encounter for immunization 05/30/2024 Patient Outreach [address] [address] James Flores MD Care Coordination (CHW outreach for SDOH housing search-referral completed ) 05/30/2024 Travel 05/23/2024 Refill [facility] [address] [facility] [address] [facility] [place] [address] James Flores MD Chronic anemia 05/22/2024 Telephone [facility] [address] [facility] [place] [address] James Flores MD Chart Prep 05/20/2024 Refill [facility] [address] [place] [address] James Flores MD 05/10/2024 Refill [facility] [address] [facility] [place] [address] Coco Montiel NP Mild intermittent asthma without [...] Description 09/03/2024 11:15 AM EDT Office Visit [facility] [address] [place], [place] [phone] James Flores MD [address] [place], [place] [phone] Health Maintenance Due Date Last Done Comments CT Colonography 1955 FIT DNA/Cologuard 1955 FIT 1955 FOBT 1955 Sigmoidoscopy 1955 Hepatitis C Screening 05/18/1973 Pneumococcal Vaccine: 50+ Years (1 of 2 - PCV) 05/18/1974 RSV Patients and Patients Aged 60 years or older (1 - Risk 60-74 years 1-dose series) 2015 Zoster Vaccines (3 of 3) 09/14/2021 07/20/2021, 11/2015 COVID-19 Vaccine ( - season) 2023 08/31/2020, [...] Procedure Name Priority Date/Time Associated Diagnosis Comments CT CERVICAL SPINE WO CONTRAST Routine 07/28/2024 1:27 PM EDT XR SHOULDER 2+ VIEWS LEFT Routine 07/28/2024 1:[address] HEAD WO CONTRAST Routine 07/28/2024 1 :19 PM EDT XR TOES 2+ VIEWS LEFT Routine 07/28/2024 1:06 PM EDT XR KNEE 4+ VIEWS RIGHT Routine 07/28/2024 1:04 PM EDT SARS COV2/INFLUENZA A/B AND RSV [...] disease, with long-term current use of insulin ([facility]) XR DEXA APPENDICULAR SKELETON Routine [...] Recently Relevant to Health Maintenance Results * CT Cervical Spine w/o Contrast (07/28/2024 1:27 PM EDT) Anatomical Region Laterality Modality Spine, C-spine Computed Tomogra phy 07/28/2024 1:27 PM EDT Narrative 07/28/2024 1:29 PM EDT ? [facility] ?[address] ?[place] [address] ? CT Scan Report ? Signed ? Patient: Cappa,Jayne ?MR#: [id number] ? : 1955 ?Acct:[id number] ? Age/Sex: 69 / F ?ADM Date: 05/18/25 ? Loc: HO.ED ? Attending Dr: ? Ordering Physician: Ligia Marie ?? Date of Service: 07/28/24 ?? Procedure(s): CT cervical spine wo IV con ?? Accession Number(s): [id number] ? cc: James Trimble MD; Ligia Marie ? Report Number: ?? [id number]: Total DLP = 1119.00 mGy-cm ? CLINICAL HISTORY: fall off bed ? CT cervical spine without contrast ? Comparison: None ? Findings: ?? Normal vertebral body alignment. ?? Multilevel disc space narrowing and endplate osteophyte formation, as well ?? as facet hypertrophy. ?? No acute fractures or dislocations. ? Visualized intracranial contents are unremarkable. ?? No cervical fluid collections or masses. ?? No consolidation or effusion at the lung apices. ? IMPRESSION: ?? No acute findings. ? This document has been electronically signed by: Xochitl Santiago MD on ?? 07/28/2024 13:27:34 ? Dictated By: ?Xochitl Santiago MD ? Signed By: ?<Electronically signed by Xochitl Santiago MD in OV> ? 07/28/24 1328 ? DD/ 1327 ? TD/TT: 07/28/24 1327 ? Weigh And Charge Worker: ? Procedure Note Ofelia, Image - 07/28/[address] [place] [address] [address] Scan Report Signed Patient: Jayne LaneMR#: [id number] : 1955cct:[id number] Age/Sex: 69 / FADM Date: 07/28/24 Loc: HO.ED Attending Dr: Ordering Physician: Ligia Marie Date of Service: 07/28/24 Procedure(s): CT cervical spine wo IV con Accession Number(s): [id number] cc: James Trimble MD; Ligia Marie Report Number: [id number]: Total DLP = 1119.00 mGy-cm CLINICAL HISTORY: fall off bed CT cervical spine without contrast Comparison: None Findings: Normal vertebral body alignment. Multilevel disc space narrowing and endplate osteophyte formation, as well as facet hypertrophy. No acute fractures or dislocations. Visualized intracranial contents are unremarkable. No cervical fluid collections or masses. No consolidation or effusion at the lung apices. IMPRESSION: No acute findings. This document has been electronically signed by: Xochitl Santiago MD on 07/28/2024 13:27:34 Dictated By: Xochitl Santiago MD Signed By: <Electronically signed by Xochitl Santiago MD in OV> 07/28/24 1328 DD/ 1327 TD/TT: 07/28/24 1327 Weigh And Charge Worker: [facility] External Provider IMG CT PROCEDURES Edited Result - Final * XR Shoulder 2+ Views Left (07/28/2024 1:20 PM EDT) Anatomical Region Laterality Modality Upper Extremities, Shoulder Left Radi ographic Imaging 07/28/2024 1:20 PM EDT Narrative 07/28/2024 1:21 PM EDT ? [facility] ?[address] ?[place], [place] [address] ?XRay Report ? Signed ? Patient: Cappa,Jayne ?MR#: [id number] ? : 1955 ?Acct:[id number] ? Age/Sex: 69 / F ?ADM Date: 07/28/24 ? Loc: HO.ED ? Attending Dr: ? Ordering Physician: Ligia Marie ?? Date of Service: 07/28/24 ?? Procedure(s): XR shoulder LT min 2V ?? Accession Number(s): [id number] ? cc: James Trimble MD; Ligia Marie ? CLINICAL HISTORY: fall onto L shoulder ? 3 view left shoulder ? Comparison: CR/SR - XR SHOULDER LT MIN 2V - 02/08/22 16:42 EST ?? CR/SR - XR SHOULDER LT MIN 2V - 09/29/21 14:39 EDT ? Findings: ?? No fractures or dislocations. ?? Periarticular osteophyte formation at the acromioclavicular and ?? glenohumeral joints, indicating osteoarthritis. ?? No erosions. No radiopaque foreign body. ? IMPRESSION: ?? 1. No acute findings ? This document has been electronically signed by: Xochitl Santiago MD on ?? 07/28/2024 13:20:07 ? Dictated By: ?Xochitl Santiago MD ? Signed By: ?<Electronically signed by Xochitl Santiago MD in OV> ? 07/28/24 1321 ? DD/ 1320 ? TD/TT: 07/28/24 1320 ? Weigh And Charge Worker: ? Procedure Note Ofelia, Image - 07/28/[address] [address] XRay Report Signed Patient: Jayne LaneMR#: [id number] : 6Acct:[id number] Age/Sex: 69 / FADM Date: 07/28/24 Loc: HO.ED Attending Dr: Ordering Physician: Ligia Marie Date of Service: 07/28/24 Procedure(s): XR shoulder LT min 2V Accession Number(s): [id number] cc: James Trimble MD; Ligia Marie CLINICAL HISTORY: fall onto L shoulder 3 view left shoulder Comparison: CR/SR - XR SHOULDER LT MIN 2V - 02/08/22 16:42 EST CR/SR - XR SHOULDER LT MIN 2V - 09/29/21 14:39 EDT Findings: No fractures or dislocations. Periarticular osteophyte formation at the acromioclavicular and glenohumeral joints, indicating osteoarthritis. No erosions. No radiopaque foreign body. IMPRESSION: 1. No acute findings This document has been electronically signed by: Xochitl Santiago MD on 07/28/2024 13:20:07 Dictated By: Xochitl Santiago MD Signed By: <Electronically signed by Xochitl Santiago MD in OV> 07/28/24 1321 DD/ 1320 TD/TT: 07/28/24 1320 Weigh And Charge Worker: [facility] External Provider IMG XR PROCEDURES Edited Result - Final * CT Head w/o Contrast (07/28/2024 1:19 PM EDT) Anatomical Region Laterality Modality Head, Neck Computed Tomogra phy 07/28/2024 1:19 PM EDT Narrative 07/28/2024 1:20 PM EDT ? [place] [facility] ?[address] ?[place] [address] ? CT Scan Report ? Signed ? Patient: Cappa,Jayne ?MR#: [id number] ? : 1955 ?Acct:[id number] ? Age/Sex: 69 / F ?ADM Date: 07/28/24 ? Loc: HO.ED ? Attending Dr: ? Ordering Physician: Ligia Marie ?? Date of Service: 07/28/24 ?? Procedure(s): CT head/brain wo IV con ?? Accession Number(s): [id number] ? cc: James Trimble MD; Ligia Marie ? Report Number: ?? [id number]: Total DLP = ?0.00 mGy-cm ? CLINICAL HISTORY: fall on thinners ? CT head without contrast ? Comparison: None ? Findings: ?? No intra-axial mass, midline shift, hydrocephalus, or acute hemorrhage. ?? Mild diffuse cerebral volume loss. Mild degree of patchy low-density ?? within the periventricular and subcortical white matter. ? The visualized paranasal sinuses and mastoid air cells are normal. ?? The orbits are unremarkable. ?? There is no acute fracture. ? IMPRESSION: ?? 1. No acute intracranial findings. ? This document has been electronically signed by: Xochitl Santiago MD on ?? 07/28/2024 13:19:31 ? Dictated By: ?Xochitl Santiago MD ? Signed By: ?<Electronically signed by Xochitl Santiago MD in OV> ? 07/28/24 1320 ? DD/ 1319 ? TD/TT: 07/28/24 1319 ? Weigh And Charge Worker: ? Procedure Note Ofelia, Viridiana - 07/28/[address] [place] [address] [address] Scan Report Signed Patient: Jayne LaneMR#: [id number] : 6Acct:[id number] Age/Sex: 69 / FADM Date: 07/28/24 Loc: HO.ED Attending Dr: Ordering Physician: Ligia Marie Date of Service: 07/28/24 Procedure(s): CT head/brain wo IV con Accession Number(s): [id number] cc: James Trimble MD; Ligia Marie Report Number: [id number]: Total DLP = 0.00 mGy-cm CLINICAL HISTORY: fall on thinners CT head without contrast Comparison: None Findings: No intra-axial mass, midline shift, hydrocephalus, or acute hemorrhage. Mild diffuse cerebral volume loss. Mild degree of patchy low-density within the periventricular and subcortical white matter. The visualized paranasal sinuses and mastoid air cells are normal. The orbits are unremarkable. There is no acute fracture. IMPRESSION: 1. No acute intracranial findings. This document has been electronically signed by: Xochitl Santiago MD on 07/28/2024 13:19:31 Dictated By: Xochitl Santiago MD Signed By: <Electronically signed by Xochitl Santiago MD in OV> 07/28/24 1320 DD/ 1319 TD/TT: 07/28/24 1319 Weigh And Charge Worker: [facility] External Provider IMG CT PROCEDURES Edited Result - Final * XR Toes 2+ Left (07/28/2024 1:06 PM EDT) Anatomical Region Laterality Modality Lower Extremities, Toes Left Radiogra phic Imaging 07/28/2024 1:06 PM EDT Narrative 07/28/2024 1:07 PM EDT ? [facility] ?[address] ?[place] [address] ?XRay Report ? Signed ? Patient: Cappa,Jayne ?MR#: [id number] ? : 1955 ?Acct:[id number] ? Age/Sex: 69 / F ?ADM Date: 07/28/24 ? Loc: HO.ED ? Attending Dr: ? Ordering Physician: Ligia Marie ?? Date of Service: 07/28/24 ?? Procedure(s): XR toe LT min 2V ?? Accession Number(s): [id number] ? cc: James Trimble MD; iLgia Marie ? CLINICAL HISTORY: fall, L great toe pain ? 4 view [id number] toe ? Comparison: None ? Findings: ?? Bones intact. No dislocations. ?? Periarticular osteophyte formation at the tibiotalar, talonavicular, ?? naviculocuneiform, and subtalar joints. Calcaneal spurring. ?? No erosions. No radiopaque foreign body. ? IMPRESSION: ?? 1. No acute findings ? This document has been electronically signed by: Xochitl Santiago MD on ?? 07/28/2024 13:06:15 ? Dictated By: ?Xochitl Santiago MD ? Signed By: ?<Electronically signed by Xochitl Santiago MD in OV> ? 07/28/24 1307 ? DD/ 1306 ? TD/TT: 07/28/24 1306 ? Weigh And Charge Worker: ? Procedure Note Donotuseinterpreter, Image - 07/28/2024 [place] [address] XRay Report Signed Patient: Jayne LaneMR#: [id number] : 6Acct:[id number] Age/Sex: 69 / FADM Date: 07/28/24 Loc: HO.ED Attending Dr: Ordering Physician: Ligia Marie Date of Service: 07/28/24 Procedure(s): XR toe LT min 2V Accession Number(s): [id number] cc: James Trimble MD; Ligia Marie CLINICAL HISTORY: fall, L great toe pain 4 view qgqc7ky toe Comparison: None Findings: Bones intact. No dislocations. Periarticular osteophyte formation at the tibiotalar, talonavicular, naviculocuneiform, and subtalar joints. Calcaneal spurring. No erosions. No radiopaque foreign body. IMPRESSION: 1. No acute findings This document has been electronically signed by: Xochitl Santiago MD on 07/28/2024 13:06:15 Dictated By: Xochitl Santiago MD Signed By: <Electronically signed by Xochitl Santiago MD in OV> 07/28/24 1307 DD/ 1306 TD/TT: 07/28/24 1306 Weigh And Charge Worker: [facility] External Provider IMG XR PROCEDURES Edited Result - Final * XR Knee 4+ Views Right (07/28/2024 1:04 PM EDT) Only the most recent of3 resultswithin the time period is included. Anatomical Region Laterality Modality Lower Extremities, Knee Right Radiogra phic Imaging 07/28/2024 1:04 PM EDT Narrative 07/28/2024 1:07 PM EDT ? [facility] ?[address] ?[place] [address] ?XRay Report ? Signed ? Patient: Cappa,Jayne ?MR#: [id number] ? : 1955 ?Acct:[id number] ? Age/Sex: 69 / F ?ADM Date: 07/28/24 ? Loc: HO.ED ? Attending Dr: ? Ordering Physician: Ligia Marie ?? Date of Service: 07/28/24 ?? Procedure(s): XR knee RT 4V ?? Accession Number(s): [id number] ? cc: James Trimble MD; Ligia Marie ? CLINICAL HISTORY: swelling ?gout v arthritis ? 4 view right knee ? Comparison: CR/SR - XR KNEE RT 3V - 07/24/24 15:23 EDT ? Findings: ?? Bones intact. No dislocations. ?? Tricompartmental periarticular osteophyte formation, indicating ?? osteoarthritis. ?? No joint effusion. ?? No radiopaque foreign body. Arterial vascular calcifications are present. ? IMPRESSION: ?? 1. No acute findings. ? This document has been electronically signed by: Xochitl Santiago MD on ?? 07/28/2024 13:04:58 ? Dictated By: ?Xochitl Santiago MD ? Signed By: ?<Electronically signed by Xochitl Santiago MD in OV> ? 07/28/24 1306 ? DD/ 1304 ? TD/TT: 07/28/24 1304 ? Weigh And Charge Worker: ? Procedure Note Viridiana Gilbert - 07/28/[address] [address] XRay Report Signed Patient: Jayne LaneMR#: [id number] : 6Acct:[id number] Age/Sex: 69 / FADM Date: 07/28/24 Loc: HO.ED Attending Dr: Ordering Physician: Ligia Marie Date of Service: 07/28/24 Procedure(s): XR knee RT 4V Accession Number(s): [id number] cc: James Trimble MD; Ligia Marie CLINICAL HISTORY: swelling ?gout v arthritis 4 view right knee Comparison: CR/SR - XR KNEE RT 3V - 07/24/24 15:23 EDT Findings: Bones intact. No dislocations. Tricompartmental periarticular osteophyte formation, indicating osteoarthritis. No joint effusion. No radiopaque foreign body. Arterial vascular calcifications are present. IMPRESSION: 1. No acute findings. This document has been electronically signed by: Xochitl Santiago MD on 07/28/2024 13:04:58 Dictated By: Xochitl Santiago MD Signed By: <Electronically signed by Xochitl Santiago MD in OV> 07/28/24 1306 DD/ 1304 TD/TT: 07/28/24 1304 Weigh And Charge Worker: [facility] External Provider IMG XR PROCEDURES Edited Result - Final * SARS-CoV-2 RNA, Influenza A/B, and RSV RNA, Ql NAAT (07/25/2024 11:47 AM EDT) Only the most recent of2 resultswithin the time period is included. Influenza A PCR NEGATIVE Negative [facility] Influenza B PCR NEGATIVE Negative [facility] Resp Syncy Virus RNA Qual PCR NEGATIVE Negative [facility] SARS COV2 PCR NEGATIVE Negative [facility] Comment:All test results mus t [...] use by authorized laboratories.Testing performed on the Cepheid GeneXpert utilizingreal-time RT-PCR.All SARS CoV2 and positive influenza A/B results arereported to [facility]. 07/25/2024 11:4 7 AM EDT 07/25/2024 11:58 AM EDT us Generic External Data Provider LAB MICROBIOLOGY - GENERAL ORDERABLES Final Result [facility] [address] [place] [address] [phone] * (ABNORMAL) CBC auto differential (07/25/2024 9:31 AM EDT) Only the most recent of2 resultswithin the time period is included. White Blood Count 6.4 4.8 - 10.8 X10*3/uL [facility] Red Blood Count 3.43(L) 4.20 - 5.50 X10*6/uL [facility] Hemoglobin 10.7(L) 12.0 - 16.0 g/dl [facility] Hematocrit 32.8(L) 37.0 - 47.0 % [facility] Mean Corpuscular Volume 95.6 80.0 - 98.0 fL [facility] Mean Corpuscular Hemoglobin 31.2 27.0 - 33.0 pg [facility] Mean Corpuscular HGB Conc 32.6 31.0 - 35.0 g/dl [facility] Red Cell Distribution Width 13.4 11.0 - 16.0 % [facility] Platelet Count 198 160 - 400 X10*3/uL [facility] Mean Platelet Volume 10.3 9.4 - 12.3 fL [facility] Neutrophils Percent Auto 67.3 45 - 73 % [facility] Imm Gran Pct Auto 0.5(H) 0.0 - 0.4 % [facility] Lymphocytes Percent Auto 25.0 20 - 40 % [facility] Monocytes Percent Auto 5.8 2 - 11 % [facility] Eosinophils Percent Auto 1.1 0 - 4 % [facility] Basophils Percent Auto 0.3 0 - 2 % [facility] NRBC Pct Auto 0.0 0.0 - 0.2 /100WBC [facility] Neutrophils Absolute Auto 4.3 2.0 - 8.3 x10*3/uL [facility] Imm Gran Abs Auto 0.03 0.00 - 0.03 X10*3/uL [facility] Lymphocytes Absolute Auto 1.6 1.2 - 4.9 X10*3/uL [facility] Monocytes Absolute Auto 0.4 0.1 - 1.2 X10*3/uL [facility] Eosinophils Absolute Auto 0.1 0.0 - 0.4 X10*3/uL [facility] Basophils Absolute Auto 0.0 0.0 - 0.2 X10*3/uL [facility] NRBC Abs Auto 0.000 0.0 - 0.012 X10*3/uL [facility] 07/25/2024 9:31 AM EDT 07/25/2024 9:36 AM EDT us Generic External Data Provider LAB BLOOD ORDERAB LES Final Result [facility] [address] [place] [address] [phone] * (ABNORMAL) Comprehensive Metabolic Panel (07/25/2024 9:30 AM EDT) Sodium 144 135 - 145 mmol/L [facility] Potassium 4.4 3.3 - 5.1 mmol/L [facility] Chloride 111(H) 96 - 108 mmol/L [facility] Carbon Dioxide 26 22 - 29 mmol/L [facility] Anion Gap 11(L) 12 - 20 [facility] Urea Nitrogen (BUN) 34(H) 9 - 16 mg/dL [facility] Creatinine, Serum 1.47(H) 0.5 - 1.4 mg/dL [facility] Creatinine Clr Calc Pharmacy 35.4 [facility] Comment:Provided height and weight: 157.48 cm,80 kg.eGFR (calculated from the MDRD study equation) and eCrCl(calculated from the Cockcroft-Gault equation) are based ondifferent parameters and may not yield comparable results.If eCrCl result is absurd, please check patient'sheight/weight. Estimated Glomerular Filt Rate 35 [facility] Comment:Chronic Kidney Disea se: Estimated GFR < 60 mL/min/1.02f8Qlzpiz Kidney Disease: Estimated GFR < 15 mL/min/1.73m2 Glucose 144(H) 60 - 115 mg/dL [facility] Calcium 9.8 8.4 - 10.2 mg/dL [facility] Bilirubin, Total 0.2 0.0 - 1.0 mg/dL [facility] Aspartate Amino Transferase 26 5 - 31 U/L [facility] Alanine Aminotransferase 15 0 - 31 U/L [facility] Total Protein 6.5 6.5 - 8.0 g/dL [facility] Albumin Level 3.8 3.5 - 5.0 g/dL [facility] Alkaline Phosphatase 56 39 - 117 U/L [facility] 07/25/2024 9:30 AM EDT 07/25/2024 9:36 AM EDT us Generic External Data Provider LAB BLOOD ORDERAB LES Final Result Performing Organization Address City/State/[facility] Co de Phone Number [facility] [address] [place] [address] [phone] * XR Femur 2+ Views Right (07/25/2024 8:56 AM EDT) Anatomical Region Laterality Modality Lower Extremities, Femur Right Radiogr aphic Imaging 07/25/2024 8:56 AM EDT Narrative 07/25/2024 9:57 AM EDT ? [facility] ?[address] ?[place] [address] ?XRay Report ? Signed ? Patient: Cappa,Jayne ?MR#: [id number] ? : 1955 ?Acct:[id number] ? Age/Sex: 69 / F ?ADM Date: 05/15/25 ? Loc: HO.ED ? Attending Dr: ? Ordering Physician: Shreyas Arrieta MD ?? Date of Service: 07/25/24 ?? Procedure(s): XR femur RT 2V ?? Accession Number(s): [id number] ? cc: Shreyas Arrieta MD; James Trimble [...] DD/ 0856 ? TD/TT: 07/25/24 0921 ? Weigh And Charge Worker: ? Procedure Note Viridiana Gilbert - 07/25/2024 [place] [address] XRay Report Signed Patient: Jayne LaneMR#: [id number] : 6Acct:[id number] Age/Sex: 69 / FADM Date: 07/25/24 Loc: HO.ED Attending Dr: Ordering Physician: Shreyas Arrieta MD Date of Service: 07/25/24 Procedure(s): XR femur RT 2V Accession Number(s): [id number] cc: Shreyas Arrieta MD; James Trimble MD [...] 07/25/24 0954 DD/ 0856 TD/TT: 07/25/24 0921 Weigh And Charge Worker: [facility] External Provider IMG XR PROCEDURES Final Result * XR Knee 3 Views Right (07/25/2024 8:55 AM EDT) Only the most recent of2 resultswithin the time period is included. Anatomical Region Laterality Modality Lower Extremities, Knee Right Radiogra phic Imaging 07/25/2024 8:55 AM EDT Narrative 07/25/2024 9:49 AM EDT ? [facility] ?[address] ?[place] [address] ?XRay Report ? Signed ? Patient: Jayne Lane ?MR#: [id number] ? : 1955 ?Acct:[id number] ? Age/Sex: 69 / F ?ADM Date: 07/25/24 ? Loc: HO.ED ? Attending Dr: ? Ordering Physician: Shreyas Arrieta MD ?? Date of Service: 07/25/24 ?? Procedure(s): XR knee RT 3V ?? Accession Number(s): [id number] ? cc: Shreyas Arrieta MD; James Trimble [...] DD/ 0855 ? TD/TT: 07/25/24 0921 ? Weigh And Charge Worker: ? Procedure Note Ofelia, Image - 07/25/2024 [place] [address] XRay Report Signed Patient: Jayne LaneMR#: [id number] : 6Acct:[id number] Age/Sex: 69 / FADM Date: 07/25/24 Loc: HO.ED Attending Dr: Ordering Physician: Srheyas Arrieta MD Date of Service: 07/25/24 Procedure(s): XR knee RT 3V Accession Number(s): [id number] cc: Shreyas Arrieta MD; James Trimble MD [...] Terry Ray MD 07/25/2024 09:46 AM EDT RP Dictated By: Terry Ray MD Signed By: <Electronically signed by Terry Ray MD in OV> 07/25/2446 DD/ TD/TT: 07/25/24920 Weigh And Charge Worker: us [facility] External Provider IMG XR PROCEDURES Final Result * US Thyroid (07/11/2024 12:58 PM EDT) Anatomical Region Laterality Modality Head, Neck Ultrasound 07/11/2024 12:5 8 PM EDT Narrative 07/12/2024 7:13 AM EDT ? [facility] ?[address] ?[place] [address] ? Ultrasound Report ? Signed ? Patient: Cappa,Jayne ?MR#: [id number] ? : 1955 ?Acct:[id number] ? Age/Sex: 69 / F ?ADM Date: 07/11/24 ? Loc: HO.US ? Attending Dr: James Trimble MD ? Ordering Physician: James Trimble MD ?? Date of Service: 07/11/24 ?? Procedure(s): US thyroid ?? Accession Number(s): [id number] ? cc: James Trimble MD ? EXAMINATION: [...] of the right ?? thyroid lobe. ? US/ thyroid ?? IMPRESSION: ?? Stable 3 mm [...] ??Zev Mukherjee MD ??07/12/2024 07:10 AM EDT ? Dictated By: ?Zev Mukherjee MD ? Signed By: ?<Electronically signed by Zev Mukherjee MD in OV> ?07/12/24 0710 ? DD/ 1258 ? TD/TT: 07/11/24 1302 ? Weigh And Charge Worker: ? Procedure Note Viridiana Gilbert - 07/12/[address] [address] Ultrasound Report Signed Patient: Jayne LaneMR#: [id number] : 6Acct:[id number] Age/Sex: 69 / FADM Date: 07/11/24 Loc: HO.US Attending Dr: James Trimble MD Ordering Physician: James Trimble MD Date of Service: 07/11/24 Procedure(s): US thyroid Accession Number(s): [id number] cc: James Trimble MD EXAMINATION: US THYROID [...] Zev Mukherjee MD 07/12/2024 07:10 AM EDT Dictated By: Zev Mukherjee MD Signed By: <Electronically signed by Zev Mukherjee MD in OV> 07/12/24 0710 DD/ 1258 TD/TT: 07/11/24 1302 Weigh And Charge Worker: us James Ashraf MD IMG US PROCEDURES Fin al Result * US DUPLEX ARTERIAL VENOUS COMP (06/29/2024 9:18 AM EDT) Anatomical Region Laterality Modality Abdomen Ultrasound 06/29/2024 9:18 AM EDT Narrative 06/29/2024 9:19 AM EDT ? [facility] ?[address] ?[place] [address] ? Ultrasound Report ? Signed ? Patient: Cappa,Jayne ?MR#: [id number] ? : 1955 ?Acct:[id number] ? Age/Sex: 69 / F ?ADM Date: 06/28/24 ? Loc: HO.US ? Attending Dr: Ludwin Sylvester MD ? Ordering Physician: LUDWIN SYLVESTER MD ?? Date of Service: 06/28/24 ?? Procedure(s): US duplex arterial venous comp ?? Accession Number(s): [id number] ? cc: LUDWIN SYLVESTER MD; James Trimble [...] MD in OV> ?06/29/24 0919 ? DD/ 0918 ? TD/TT: 06/29/24 0918 ? Weigh And Charge Worker: ? Procedure Note Viridiana Gilbert - 06/29/[address] [address] Ultrasound Report Signed Patient: Jayne Lane#: [id number] : 6Acct:[id number] Age/Sex: 69 / FADM Date: 06/28/24 Loc: HO.US Attending Dr: Ludwin Sylvester MD Ordering Physician: LUDWIN SYLVESTER MD Date of Service: 06/28/24 Procedure(s): US duplex arterial venous comp Accession Number(s): [id number] cc: LUDWIN SYLVESTER MD; James Trimble MD [...] in OV> 06/29/24918 DD/ 7 TD/TT: 06/29/24917 Weigh And Charge Worker: us Ludwin Sylvester MD IMG US PROCEDURES Final Result * Referral to Ophthalmology (06/20/2024) us Ludwin Sylvester MD OUTPATIENT REFERRAL ORDERABLES F inal Result * Lyme Disease Ab with Reflex to Blot (IgG, IgM) (06/19/2024 10:56 AM EDT) Lyme Antibody Screen <0.90 index [facility] Comment:Index Interpretation ----- < 0.90 [...] when erythemamigrans is apparent.THIS TEST WAS PERFORMED AT:[facility] [place] [phone] CHAND MD Lyme Blot [facility] 06/19/2024 10:5 6 AM EDT 06/19/2024 11:51 AM EDT us Ludwin Sylvester MD LAB BLOOD ORDERABLES Final Resul t Performing Organization Address [facility] Co de Phone Number [facility] [address] [place] [address] [phone] * RPR (Monitor) with Reflex to??Titer (06/19/2024 10:56 AM EDT) RPR (Monitor) w/Refl Titer NON-REACTI VE NON-REACT DANNY [facility] Comment:THIS TEST WAS PERFOR MED AT:[facility] [id number] CHAND MD Rapid Plasma Reagin Ab Titer [facility] Blood Venous blood specimen / Unknown 06/19/2024 10:56 AM EDT 06/19/2024 11:40 AM EDT us Ludwin Sylvester MD LAB BLOOD ORDERABLES Final Resul t Performing Organization Address [facility]/ZIP Co de Phone Number [facility] [address] [place] [address] [phone] * (ABNORMAL) Sed Rate by Modified Sudharen (06/19/2024 10:56 AM EDT) Erythrocyte Sedimentation Rate 98(H) 0 - 20 MM/HR [facility] Comment:Patients with polycy themia and many hemoglobin abnormalitiesmay have depressed sed rates whereas patients with anemiamay have elevated sed rates. Blood Venous blood specimen / Unknown 06/19/2024 10:56 AM EDT 06/19/2024 11:40 AM EDT us Ludwin Sylvester MD LAB BLOOD ORDERABLES Final Resul t Performing Organization Address [facility]/ZIP Co de Phone Number [facility] [address] [place] [phone] * PTH, Intact Without Calcium (06/19/2024 10:56 AM EDT) Parathyroid Hormone, Intact 60.9 8.7 - 77.1 pg/mL [facility] 06/19/2024 10:5 6 AM EDT 06/19/2024 11:40 AM EDT us Generic External Data Provider LAB BLOOD ORDERAB LES Final Result Performing Organization Address [facility] Co de Phone Number [facility] [address] [place] [phone] * Vitamin D, 25-Hydroxy, Total, Immunoassay (06/19/2024 10:26 AM EDT) Vitamin D 25-OH Total 41.0 >30 ng/mL [facility] Comment: Health Based Reference Values*< 20 ??ng/mL ??Dfuafqqhn63-74 ng/mL ??Insufficient> 30 ??ng/mL ??Sufficient*Altagracia GOODWIN. N [...] ORDERAB LES Final Result Performing Organization Address [facility] Co de Phone Number [facility] [address] [place] [phone] * (ABNORMAL) C-reactive Protein (06/19/2024 10:26 AM EDT) C Reactive Protein 2.44(H) < or = 0.50 mg/dL [facility] 06/19/2024 10:2 6 AM EDT 06/19/2024 11:49 AM EDT Generic External Data Provider LAB BLOOD ORDERAB LES Final Result Performing Organization Address [facility] Co de Phone Number [facility] [address] [place] [address] [phone] * (ABNORMAL) Calcium (06/19/2024 10:26 AM EDT) Calcium 10.6(H) 8.4 - 10.2 mg/dL [facility] 06/19/2024 10:2 6 AM EDT 06/19/2024 11:49 AM EDT Generic External Data Provider LAB BLOOD ORDERAB LES Final Result Performing Organization Address [facility] de Phone Number [facility] [address] [place] [address] [phone] * Albumin (06/19/2024 10:26 AM EDT) Albumin Level 4.1 3.5 - 5.0 g/dL [facility] 06/19/2024 10:2 6 AM EDT 06/19/2024 11:49 AM EDT us Generic External Data Provider LAB BLOOD ORDERAB LES Final Result [facility] [address] [place] [address] [phone] * CTA Head Neck w/ and w/o Contrast (06/08/2024 7:19 PM EDT) Anatomical Region Laterality Modality Head, Neck Computed Tomogra phy 06/08/2024 7:19 PM EDT Narrative 06/08/2024 7:20 PM EDT ? [facility] ?[address] ?[place] [address] ? [address] Scan Report ? Signed ? Patient: Cappa,Jayne ?MR#: [id number] ? : 1955 ?Acct:[id number] ? Age/Sex: 69 / F ?ADM Date: 06/08/24 ? Loc: HO.ED ? Attending Dr: ? Ordering Physician: Ligia Marie ?? Date of Service: 06/08/24 ?? Procedure(s): CT angio head neck ?? Accession Number(s): [id number] ? cc: James Trimble MD; Ligia Marie ? Report Number: ?? [id number]: Total DLP = 1370.00 mGy-cm ? CLINICAL [...] by Reginaldo Lowry MD in OV> ?06/08/24 1920 ? DD/ 18 ? TD/TT: 06/08/241918 ? Weigh And Charge Worker: ? Procedure Note Donabdielcolekurtter, Image - 06/08/[address] [place] [address] [address] Scan Report Signed Patient: Jayne LaneMR#: [id number] : 6Acct:[id number] Age/Sex: 69 / FADM Date: 06/08/24 Loc: HO.ED Attending Dr: Ordering Physician: Ligia Marie Date of Service: 06/08/24 Procedure(s): CT angio head neck Accession Number(s): [id number] cc: James Trimble MD; Ligia Marie Report Number: [id number]: Total DLP = 1370.00 mGy-cm CLINICAL HISTORY: [...] in OV> 06/08/241919 DD/ 18 TD/TT: 06/08/241918 Weigh And Charge Worker: [facility] External Provider IMG CT PROCEDURES Edited Result - Final * XR Knee 4+ Views Left (06/08/2024 6:29 PM EDT) Only the most recent of2 resultswithin the time period is included. Anatomical Region Laterality Modality Lower Extremities, Knee Left Radiogra [facility] Imaging 06/08/2024 6:29 PM EDT Narrative 06/08/2024 6:30 PM EDT ? [facility] ?[address] ?[place] [address] ?XRay Report ? Signed ? Patient: Cappa,Jayne ?MR#: [id number] ? : 1955 ?Acct:[id number] ? Age/Sex: 69 / F ?ADM Date: 03/29/25 ? Loc: HO.ED ? Attending Dr: ? Ordering Physician: Ligia Marie ?? Date of Service: 06/08/24 ?? Procedure(s): XR knee LT 4V ?? Accession Number(s): [id number] ? cc: James Trimble MD; Ligia Marie [...] ? DD/ 28 ? TD/TT: 06/08/241828 ? Weigh And Charge Worker: ? Procedure Note Donjukurtter, Image - 06/08/2024 [place] [address] XRay Report Signed Patient: Jayne LaneMR#: [id number] : 6Acct:[id number] Age/Sex: 69 / FADM Date: 06/08/24 Loc: HO.ED Attending Dr: Ordering Physician: Ligia Marie Date of Service: 06/08/24 Procedure(s): XR knee LT 4V Accession Number(s): [id number] cc: James Trimble MD; Ligia Marie CLINICAL [...] in OV> 06/08/241828 DD/ 28 TD/TT: 06/08/241828 Weigh And Charge Worker: [facility] External Provider IMG XR PROCEDURES Edited Result - Final * (ABNORMAL) Basic Metabolic Panel (06/08/2024 4:18 PM EDT) Sodium 142 135 - 145 mmol/L [facility] Potassium 4.8 3.3 - 5.1 mmol/L [facility] Chloride 107 96 - 108 mmol/L [facility] Carbon Dioxide 28 22 - 29 mmol/L [facility] Anion Gap 12 12 - 20 [facility] Urea Nitrogen (BUN) 33(H) 9 - 16 mg/dL [facility] Creatinine, Serum 1.41(H) 0.5 - 1.4 mg/dL [facility] Creatinine Clr Calc Pharmacy 34.3 [facility] Comment:Provided height and weight: 149.86 cm,79.7 kg.eGFR (calculated from the MDRD study equation) and eCrCl(calculated from the Cockcroft-Gault equation) are based ondifferent parameters and may not yield comparable results.If eCrCl result is absurd, please check patient'sheight/weight. Estimated Glomerular Filt Rate 37 [facility] Comment:Chronic Kidney Disea se: Estimated GFR < 60 mL/min/1.00m7Fudrla Kidney Disease: Estimated GFR < 15 mL/min/1.73m2 Glucose 227(H) 60 - 115 mg/dL [facility] Calcium 10.1 8.4 - 10.2 mg/dL [facility] 06/08/2024 4:18 PM EDT 06/08/2024 4:21 PM EDT us Generic External Data Provider LAB BLOOD ORDERAB LES Final Result [facility] [address] [facility] [place] [address] [phone] * (ABNORMAL) POCT Glucose (05/30/2024 9:25 AM EDT) Glucose Blood, POC 202(A) 60 - 200 mg/dL QC Media Lot # [id number] Lot# Expiration Date 779,494 Blood Capillary blood specimen / Unknown 05/30/2024 9:25 AM EDT us James Ashraf MD POINT OF CARE TEST EN TER/EDIT ORDERABLES Final Result * XR DEXA APPENDICULAR SKELETON (05/15/2024 8:15 AM EST) Anatomical Region Laterality Modality Abdomen Radiographic Rena ging 05/15/2024 8:15 AM EST Narrative 05/17/2024 7:37 AM EST ? [facility] [place] ? [address] ?[place] [address] ? Mammography Report ? Signed ? Patient: Cappa,Jayne ?MR#: [id number] ? : 1955 ?Acct:[id number] ? Age/Sex: 68 / F ?ADM Date: 03/05/25 ? Loc: HO.MAMMO ? Attending Dr: Lina Jason MD ? Ordering Physician: Lina Jason MD ?Results: ? Date of Service: 05/15/24 ?Follow Up: ? Procedure(s): XR DEXA appendicular skeleton ?? Accession Number(s): [id number] ? cc: James Trimble MD; Lina Jason MD ? EXAMINATION: ??DXA BONE DENSITY EXTREMITY ? HISTORY: ??Estrogen deficiency ? TECHNIQUE: Verdezyne Dual energy absorptiometry (DEXA) ?? of the [...] is a trademark of the [employer]'s ?? [place] for Metabolic Bone Disease, a World Health Organization (WHO) ?? Collaborating Center. ? Electronically signed by: ??Zev Mukherjee MD ??05/17/2024 07:34 AM EST ? Dictated By: ?Zev Mukherjee MD ? Signed By: ?<Electronically signed by Zev Mukherjee MD in OV> ?03/07/25 0734 ? DD/ 0815 ? TD/TT: 05/15/24 0840 ? Weigh And Charge Worker: ? Procedure Note Ofelia, Viridiana - 05/17/2024 [place] [facility] [address] [place] [address] Mammography Report Signed Patient: Jayne LaneMR#: [id number] : 6Acct:[id number] Age/Sex: 68 / FADM Date: 05/15/24 Loc: ROSARIO Attending Dr: Lina Jason MD Ordering Physician: Lian Jasonults: Date of Service: 05/15/24Follow Up: Procedure(s): XR DEXA appendicular skeleton Accession Number(s): [id number] cc: James Trimble MD; Lina Jason MD EXAMINATION: DXA BONE DENSITY EXTREMITY HISTORY: Estrogen deficiency TECHNIQUE: Verdezyne Dual energy absorptiometry (DEXA) of the lumbar [...] of the [employer]'s [place] for Metabolic Bone Disease, a World Health Organization (WHO) Collaborating Center. Electronically signed by: Zev Mukherjee MD 05/17/2024 07:34 AM EST Dictated By: Zev Mukherjee MD Signed By: <Electronically signed by Zev Mukherjee MD in OV> 05/17/24 0734 DD/ 0815 TD/TT: 05/15/24 0840 Weigh And Charge Worker: [facility] External Provider IMG XR PROCEDURES Final Result * (ABNORMAL) Glucose, Whole Blood (05/01/2024 9:11 AM EST) Glucose, Whole Blood 150(H) 60 - 115 mg/dL [facility] Comment:METER #: [id number] 5Testing performed in the Endocrinology Department [address] , [address], [facility]. 05/01/2024 9:11 AM EST 05/01/2024 9:15 AM EST Generic External Data Provider LAB BLOOD ORDERAB LES Final Result [facility] [address] [place] [phone] * (ABNORMAL) POCT HGB A1C (03/21/2024 9:51 AM EST) Pathologist [facility] Hemoglobin A1C 8.4(A) 4.0 - 6.0 % QC Media Lot # [id number] Lot# Expiration Date ,065 Blood 03/21/2024 9:51 AM EST James Ashraf MD POINT OF CARE TEST EN TER/EDIT ORDERABLES Final Result * Lipid Panel, Standard (02/05/2024 7:55 AM EST) Triglycerides 104 <150 mg/dL [facility] Comment:Desirable Triglyceri de: less than 150 mg/dLBorderline High Triglyceride 150-199 mg/dLHigh Triglyceride: 200-499 mg/dLVery High Triglyceride: greater than or equal to 5OO mg/dL Cholesterol 123 <200 mg/dL [facility] Comment:Desirable Cholestero l: less than 200 mg/dLBorderline High Cholesterol: 200-239 mg/dLHigh Cholesterol: greater than 239 mg/dL LDL Cholesterol Calculated 62 <100 mg/dL [facility] Comment:Desirable LDL: less than 100 mg/dLNear Optimal/Above Optimal LDL: 110- 129 mg/dLBorderline High LDL: 130-159 mg/dLHigh LDL: 160-189 mg/dLVery High LDL: greater than or equal to 190 mg/dL HDL Cholesterol 41 >40 mg/dL [facility] Comment:Desirable HDL: great er than 40 mg/dL Note: This HDL assay may give artificially low results in patients with liver disease. Blood Venous blood specimen / Unknown 02/05/2024 7:55 AM EST 02/05/2024 11:17 AM EST us James Ashraf MD LAB BLOOD ORDERABLES Final Result Performing Organization Address City/State/[facility] Co de Phone Number [facility] [address] [place] [phone] * Pap Smear (06/22/2023 3:20 PM EDT) 06/22/2023 3:20 PM EDT 06/27/2023 11:15 AM EDT Narrative [facility] - 07/11/2023 2:16 PM EDT ----- ------- Name: Jayne Lane ?Age/Sex: 68/F ? : 1955 Unit#: [id number] ?? Attend Dr: Opal Carranza CNM ?Re06/22/23 ?Status: DEP REF ? Location: HO.LNP ?Disch: ? ----- ------- SPEC : [id number] ? RECD: 06/27/23 ? STATUS: ??SOUT ? REQ NUM: [id number] ? CYRUS: 06/22/23-1520 ? SUBM DR: Opal [...] 66, 68) ? HPV testing performed by [place], [place], [place]. ??See reference laboratory ?? portion of the EMR for entire report. 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 Material Received ?? ThinPrep-Cervical Copies To: ?? James Trimble MD ?? [address] ?? [place] [address] ?? [phone] ?? Opal Carranza CNM ?? [address] [facility] ?? [place] [address] ?? [phone] ----- ------- Signed (signature on file) Ev Preciado 07/11/23 1416 ? ----- ------- ? END OF REPORT ? us Generic External Data Provider LAB CYTOLOGY RELL SALAZAR Final Result [facility] [address] [place] [address] [phone] * BI Mammogram Screening Tomosynthesis Bilateral (02/22/2023 8:20 AM EST) Anatomical Region Laterality Modality Breast Bilateral Mammography 02/22/2023 8:20 AM EST Narrative 03/07/2023 9:08 PM EST ? [place] [facility] [place] ? [address] ?[place] [address] ? Mammography Report ? Signed ? Patient: Cappa,Jayne ?MR#: [id number] ? : 1955 ?Acct:[id number] ? Age/Sex: 67 / F ?ADM Date: 02/22/ ? Loc: HO.MAMMO ? Attending Dr: James Trimble MD ? Ordering Physician: Loraine Yadav MD ?Results: 1Ne ?? gative ? Date of Service: 02/22/ ?Follow Up: 1 Year From Orig ?? inal Mammogram ? Procedure(s): MM tomosynthesis screening BI ?? Accession Number(s): [id number] ? cc: James Trimble MD; Loraine Yadav [...] MD in OV> ? 12/26/23 2104 ? DD/ 9 ? TD/TT: ? Weigh And Charge Worker: ? Procedure Note Ofelia, Viridiana - 03/07/2023 [place] [facility] [address] [place] [address] Mammography Report Signed Patient: Jayne LaneMR#: [id number] : 6Acct:[id number] Age/Sex: 67 / FADM Date: 02/22/23 Loc: HO.MAMMO Attending Dr: James Trimble MD Ordering Physician: Loraine Yadavesults: 1Ne gative Date of Service: 02/22/23Follow Up: 1 Year From Orig inal Mammogram Procedure(s): MM tomosynthesis screening BI Accession Number(s): [id number] cc: James Trimble MD; Loraine Yadav MD [...] Matthew MD in OV> 03/07/232103 DD/ TD/TT: Weigh And Charge Worker: [facility] External Provider IMG BI PROCEDURES Final Result * Colonoscopy (07/11/2022 3:53 PM EDT) Pathologist [facility] Colonoscopy Normal Normal Comment:Tubular adenoma Historical Provider HEALTH MAINTENANCE Final Result * HPV E6/E7 RFLX DANIAL 16 18/45 (01/17/2022 4:22 PM EST) HPV 16 RNA TNP CONVERTED Astley Clarke HPV 18/45 RNA TNP CONVER Shoutlet HPV E6 E7 ADD TNP CONVER Shoutlet HPV mRNA E6/E7 rflx Not Detected Not Detected CONVERTED Astley Clarke Comment: Methodology: Window Glass Cutter Off-Mediated Amplification This assay detects E6/E7 viral messenger RNA (mRNA) from 14 high-risk HPV types (16,18,31,33,35,39,45,51,52,56,58,59,66,68). Cervical sources are required for HPV testing. If a vaginal source from a patient who has had a total hysterectomy with removal of cervix was submitted, please contact the testing laboratory for alternative testing options. For additional information, please refer to http://education.Get10/faq/TMA782n5 (This link if provided for information/ educational purposes only.) THIS TEST WAS PERFORMED AT: [facility] [address] [place] [address] [address]LO[address] [place], [place] ??[id number] KEVEN CHAND MD 01/17/2022 4:22 PM EST us Opal Carranza HISTORICAL/NON ORDERABLE LABS Fi nal Result CONVERTED LEGACY LABS from Last 3 Months or Most Recently Relevant to Health Maintenance Insurance [facility] STANDARD FOR[facility]LY [facility] FDC OPTIONS (O D-SNP) Care Teams Poultry Packer Relationship Specialty Start Date End Date James Flores MD [address] [place] [phone] PCP - General Internal Medicine 02/04/14
--- OUTSIDE RECORDS SUMMARY | 2024-07-29 11:12 | XMS_ITS | Encounter Summary ---
Author Organization [employer] Address [address] 7[address] [place] [address] Care Team Providers Care Delivery Driver/Customer Service Name Role Phone James Flores MD Primary Care Provide r Encounter Details Date Type Department Care Team (Late st Contact Info) Description 07/28/2024 Orders Only [facility] External Provider, [facility] Social History Tobacco Use Types Packs/Day Years [...] Description 09/03/2024 11:15 AM EDT Office Visit [facility] [address] [place] [address] James Flores MD [address] [place] [address] documented as of this encounter Procedures Procedure Name Priority Date/Time Associated Diagnosis Comments CT CERVICAL SPINE WO CONTRAST Routine 07/28/2024 1:27 PM EDT XR SHOULDER 2+ VIEWS LEFT Routine 07/28/2024 1:[address] HEAD WO CONTRAST Routine 07/28/2024 1 :19 PM EDT XR TOES 2+ VIEWS LEFT Routine 07/28/2024 1:06 PM EDT XR KNEE 4+ VIEWS RIGHT Routine 07/28/2024 1:04 PM EDT documented in this encounter Results * CT Cervical Spine w/o Contrast (07/28/2024 1:27 PM EDT) Anatomical Region Laterality Modality Spine, C-spine Computed Tomogra phy 07/28/2024 1:27 PM EDT Narrative 07/28/2024 1:29 PM EDT ? [facility] [facility] ?[address] ?[place] [address] ? CT Scan Report ? Signed ? Patient: Cappa,Jayne ?MR#: [id number] ? : 1955 ?Acct:[id number] ? Age/Sex: 69 / F ?ADM Date: 07/28/24 ? Loc: HO.ED ? Attending Dr: ? Ordering Physician: Ligia Marie ?? Date of Service: 07/28/24 ?? Procedure(s): CT cervical spine wo IV con ?? Accession Number(s): [id number] ? cc: James Trimble MD; Ligia Marie ? Report Number: ?? [id number]: Total DLP = 1119.00 mGy-cm ? CLINICAL [...] DD/ 1327 ? TD/TT: 07/28/24 1327 ? Sap Payroll Consultant: ? Procedure Note Viridiana Gilbert - 07/28/[address] [place] [address] [address] Scan Report Signed Patient: Jayne LaneMR#: [id number] : 6Acct:[id number] Age/Sex: 69 / FADM Date: 07/28/24 Loc: HO.ED Attending Dr: Ordering Physician: Ligia Marie Date of Service: 07/28/24 Procedure(s): CT cervical spine wo IV con Accession Number(s): [id number] cc: James Trimble MD; Ligia Marie Report Number: [id number]: Total DLP = 1119.00 mGy-cm CLINICAL HISTORY: [...] Santiago MD in OV> 07/28/24 1328 DD/ 132 TD/TT: 07/28/24 132 Sap Payroll Consultant: [facility] External Provider IMG CT PROCEDURES Edited Result - Final * XR Shoulder 2+ Views Left (07/28/2024 1:20 PM EDT) Anatomical Region Laterality Modality Upper Extremities, Shoulder Left Radi ographic Imaging 07/28/2024 1:20 PM EDT Narrative 07/28/2024 1:21 PM EDT ? [facility] ?[address] ?[place] [address] ?XRay Report ? Signed ? Patient: Cappa,Jayne ?MR#: [id number] ? : 1955 ?Acct:[id number] ? Age/Sex: 69 / F ?ADM Date: 07/28/24 ? Loc: HO.ED ? Attending Dr: ? Ordering Physician: Ligia Marie ?? Date of Service: 07/28/24 ?? Procedure(s): XR shoulder LT min 2V ?? Accession Number(s): [id number] ? cc: James Trimble MD; Ligia Marie [...] DD/ 1320 ? TD/TT: 07/28/24 1320 ? Sap Payroll Consultant: ? Procedure Note Donkhalifter, Image - 07/28/[address] [address] XRay Report Signed Patient: Jayne LaneMR#: [id number] : 1955cct:[id number] Age/Sex: 69 / FADM Date: 07/28/24 Loc: HO.ED Attending Dr: Ordering Physician: Ligia Marie Date of Service: 07/28/24 Procedure(s): XR shoulder LT min 2V Accession Number(s): [id number] cc: James Trimble MD; Ligia Marie CLINICAL [...] 07/28/24 1321 DD/ 1320 TD/TT: 07/28/24 1320 Sap Payroll Consultant: us [facility] External Provider IMG XR PROCEDURES Edited Result - Final * CT Head w/o Contrast (07/28/2024 1:19 PM EDT) Anatomical Region Laterality Modality Head, Neck Computed Tomogra phy 07/28/2024 1:19 PM EDT Narrative 07/28/2024 1:20 PM EDT ? [facility] ?[address] ?[place], [place] [address] ? CT Scan Report ? Signed ? Patient: Cappa,Jayne ?MR#: [id number] ? : 1955 ?Acct:[id number] ? Age/Sex: 69 / F ?ADM Date: 07/28/24 ? Loc: HO.ED ? Attending Dr: ? Ordering Physician: Ligia Marie ?? Date of Service: 07/28/24 ?? Procedure(s): CT head/brain wo IV con ?? Accession Number(s): [id number] ? cc: James Trimble MD; Ligia Marie ? Report Number: ?? [id number]: Total DLP = ?0.00 mGy-cm ? CLINICAL [...] DD/ 1319 ? TD/TT: 07/28/24 1319 ? Sap Payroll Consultant: ? Procedure Note Ofelia, Image - 07/28/[address] [address] [address] Scan Report Signed Patient: Jayne LaneMR#: [id number] : 6Acct:[id number] Age/Sex: 69 / FADM Date: 07/28/24 Loc: HO.ED Attending Dr: Ordering Physician: Ligia Marie Date of Service: 07/28/24 Procedure(s): CT head/brain wo IV con Accession Number(s): [id number] cc: James Trimble MD; Ligia Marie Report Number: [id number]: Total DLP = 0.00 mGy-cm CLINICAL HISTORY: [...] 07/28/24 1320 DD/ 1319 TD/TT: 07/28/24 1319 Sap Payroll Consultant: [facility] External Provider IMG CT PROCEDURES Edited Result - Final * XR Toes 2+ Left (07/28/2024 1:06 PM EDT) Anatomical Region Laterality Modality Lower Extremities, Toes Left Radiogra phic Imaging 07/28/2024 1:06 PM EDT Narrative 07/28/2024 1:07 PM EDT ? [facility] ?[address] ?[place] [address] ?XRay Report ? Signed ? Patient: Cappa,Jayne ?MR#: [id number] ? : 1955 ?Acct:[id number] ? Age/Sex: 69 / F ?ADM Date: 07/28/24 ? Loc: HO.ED ? Attending Dr: ? Ordering Physician: Ligia Marie ?? Date of Service: 07/28/24 ?? Procedure(s): XR toe LT min 2V ?? Accession Number(s): [id number] ? cc: James Trimble MD; Ligia Marie ? CLINICAL HISTORY: fall, L great toe pain ? 4 view [id number] toe ? Comparison: None ? Findings: ?? [...] DD/ 1306 ? TD/TT: 07/28/24 1306 ? Sap Payroll Consultant: ? Procedure Note Viridiana Gilbert - 07/28/2024 [place] [address] XRay Report Signed Patient: Jayne LaneMR#: [id number] : 6Acct:[id number] Age/Sex: 69 / FADM Date: 07/28/24 Loc: HO.ED Attending Dr: Ordering Physician: Ligia Marie Date of Service: 07/28/24 Procedure(s): XR toe LT min 2V Accession Number(s): [id number] cc: James Trimble MD; Ligia Marie CLINICAL HISTORY: fall, L great toe pain 4 view [id number] toe Comparison: None Findings: Bones intact. No [...] 07/28/24 1307 DD/ 1306 TD/TT: 07/28/24 1306 Sap Payroll Consultant: us [facility] External Provider IMG XR PROCEDURES Edited Result - Final * XR Knee 4+ Views Right (07/28/2024 1:04 PM EDT) Anatomical Region Laterality Modality Lower Extremities, Knee Right Radiogra phic Imaging 07/28/2024 1:04 PM EDT Narrative 07/28/2024 1:07 PM EDT ? [facility] ?[address] ?[place] [address] ?XRay Report ? Signed ? Patient: Cappa,Jayne ?MR#: [id number] ? : 1955 ?Acct:[id number] ? Age/Sex: 69 / F ?ADM Date: 07/28/24 ? Loc: HO.ED ? Attending Dr: ? Ordering Physician: Ligia Marie ?? Date of Service: 07/28/24 ?? Procedure(s): XR knee RT 4V ?? Accession Number(s): [id number] ? cc: James rTimble MD; Ligia Marie ? CLINICAL HISTORY: swelling [...] DD/ 1304 ? TD/TT: 07/28/24 1304 ? Sap Payroll Consultant: ? Procedure Note Ofelia, Image - 07/28/2024 [facility] [address] [place] [address] XRay Report Signed Patient: Jayne LaneMR#: [id number] : 6Acct:[id number] Age/Sex: 69 / FADM Date: 07/28/24 Loc: HO.ED Attending Dr: Ordering Physician: Ligia Marie Date of Service: 07/28/24 Procedure(s): XR knee RT 4V Accession Number(s): [id number] cc: James Trimble MD; Ligia Marie CLINICAL [...] 07/28/24 1306 DD/ 1304 TD/TT: 07/28/24 1304 Sap Payroll Consultant: [facility] External Provider IMG XR PROCEDURES Edited Result - Final documented in this encounter Visit Diagnoses Not on filedocumented in this encounter Additional Health Concerns Assessment Noted Time PHQ-9 Depression Total Score: 0 01/30/20 24 10:37 AM EST documented as of this encounter Care Teams Delivery Driver/Customer Service Relationship Specialty Start Date End Date James Flores MD [address] [place] [address] PCP - General Internal Medicine 02/04/14 documented as of this encounter
--- OUTSIDE RECORDS SUMMARY | 2024-07-29 11:12 | XMS_ITS | Encounter Summary ---
Author Organization [employer] Address [address] [facility] 7t [place] [address] Care Team Providers Care Ophthalmic Technician Apprentice Name Role Phone James Flores MD Primary Care Provide r Encounter Details Date Type Department Care Team ([facility] Contact Info) Description 03/17/[address] [facility] [address] [place], [place] [phone] Jaja Hammond LPN Social History Tobacco Use [...] Visit [facility] [address] [place], [place] [phone] James Flores MD [address] [place], [place] [phone] documented as of this encounter Visit Diagnoses Not on filedocumented in this encounter Care Teams Ophthalmic Technician Apprentice Relationship Specialty Start Date End Date James Flores MD [address] [place] [address] PCP - General Internal Medicine 02/04/14 documented as of this encounter
--- OUTSIDE RECORDS SUMMARY | 2024-07-29 11:12 | XMS_ITS | Encounter Summary ---
Author Organization [employer] Address [address] [facility] 7t [place] [address] Care Team Providers Care Senior J2Ee Developer Name Role Phone James Flores MD Primary Care Provide r Reason for Referral * Consultation (Routine) - Closed Specialty Diagnoses / Procedures Referred By Contac t Referred To Contact Physical Therapy Diagnoses Primary osteoarthritis of left knee Lidya Pinedo MD [address] [place] [address] Phone: tel: fax: [facility] [address] [place] [address] Phone: tel: fax: Referral ID Status Reason Start Date Expiration Date V isits Requested Visits Authorized [id number] Closed Specialty Services Required 07/24/2024 07/24/2025 1 1 Reason for Visit * Reason Comments Leg Pain Encounter Details Date Type Department Care Team (Latest Contact Info) Description 07/24/2024 2:40 PM EDT Office Visit [facility] [address] [place] [address] [phone] Lidya Pinedo MD [address] [place] [address] [phone] Primary osteoarthritis of left knee (Primary Dx) [...] anemia CKD stage 3 secondary to diabetes ([facility]) Cobalamin deficiency Hyperlipidemia Hypertension Mild persistent asthma Severe obesity ([facility]) Obstructive sleep apnea syndrome Type 2 diabetes mellitus with stage 3a chronic kidney disease ([facility]) Preventative health care Chronic constipation Diverticulosis of colon GERD (gastroesophageal reflux disease) Goiter Hemorrhoids Hypercalcemia Hyperkalemia Non-rheumatic aortic stenosis Osteoporosis Poor historian Tubular adenoma Vitamin D deficiency Tinea corporis Acute pain of both knees Temporal arteritis ([facility]) Primary osteoarthritis of left knee [...] daily. 1 kit 0 Calcium Citrate-Vitamin D (Santiago Calcium/Vitamin D) 200-6.25 MG-MCG tablet TAKE 2 TABLETS BY MOUTHTWICE DAILY IN THE MORNING AND EVENING carbamide peroxide (Debrox) 6.5 % otic solution Administer 5 drops into each ear 2 times daily for 4 days. 15 mL 0 clopidogrel (Plavix) 75 MG tablet TAKE 1 TABLET BY MOUTH EVERY EVENING 90 tablet 3 Continuous Glucose Fish Machine Feeder (FreeStyle [place] 3 [place]) device USE DIRECTED Continuous Glucose Sensor (FreeStyle [...] WITH FOOD 180 tablet 1 nystatin (Mycostatin) 675968 UNIT/GM powder Apply topically 2 times daily. 30 g 3 Mashableuch Verio test strip USE DIRECTED Ozempic, 0.25 [...] 11:15 AM EDT Office Visit [facility] [address] [place] [address] James Flores MD [address] [place] [address] Scheduled Referrals Name Type Priority Associated Diagnoses [...] PM EDT Narrative 07/24/2024 3:34 PM EDT ?[facility] ?[address] ?[place] [address] ?XRay Report ? Signed ? Patient: Cappa,Jayne ?MR#: [id number] ? : 1955 ?Acct:[id number] ? Age/Sex: 69 / F ?ADM Date: 07/24/24 ? Loc: HO.HHCX ? Attending Dr: Lidya Pinedo MD ? Ordering Physician: Lidya Pinedo MD ?? Date of Service: 07/24/24 ?? Procedure(s): XR knee RT 3V ?? Accession Number(s): [id number] ? cc: Lidya Pinedo MD ? EXAMINATION: [...] DD/ 1451 ? TD/TT: 07/24/24 1500 ? Trucking Contractor: ? Procedure Note Ofelia, Viridiana - 07/24/[address] [address] XRay Report Signed Patient: Jayne LaneMR#: [id number] : 6Acct:[id number] Age/Sex: 69 / FADM Date: 07/24/24 Loc: HO.HHCX Attending Dr: Lidya Pinedo MD Ordering Physician: Lidya Pinedo MD Date of Service: 07/24/24 Procedure(s): XR knee RT 3V Accession Number(s): [id number] cc: Lidya Pinedo MD EXAMINATION: XR KNEE [...] 07/24/24 1532 DD/ 1451 TD/TT: 07/24/24 1500 Trucking Contractor: Lidya Pinedo MD IMG XR PROCEDURES Final [...] documented as of this encounter Care Teams Senior J2Ee Developer Relationship Specialty Start Date End Date James Flores MD [address] [place] [phone] PCP - General Internal Medicine 02/04/14 documented as of this encounter
--- OUTSIDE RECORDS SUMMARY | 2024-07-29 11:13 | XMS_ITS | Encounter Summary ---
Author Organization [employer] Address [address] [facility] 7t [place] [address] Care Team Providers Care Chain Link Fence Installer Name Role Phone James Flores MD Primary Care Provide r Encounter Details Date Type Department Care Team ([facility] st Contact Info) Description 02/21/2022 Abstract [facility] [address] [place] [address] James Flores MD [address] [place] [address] Social History Tobacco Use Types Packs/Day Years [...] Office Visit [facility] [address] [place] [address] James Flores MD [address] [place] [address] documented as of this encounter Procedures Procedure [...] on filedocumented in this encounter Care Teams Chain Link Fence Installer Relationship Specialty Start Date End Date James Flores MD [address] [place] [address] PCP - General Internal Medicine 02/04/14 documented as of this encounter
--- OUTSIDE RECORDS SUMMARY | 2024-07-29 11:13 | XMS_ITS | Encounter Summary ---
Author Organization [employer] Address [address] [facility] 7t [place] [address] Care Team Providers Care Labor Standards Director Name Role Phone James Flores MD Primary Care Provide r Encounter Details Date Type Department Care Team (Late st Contact Info) Description 05/11/2022 Telephone [facility] MED[facility]INE [address] [place] [address] [phone] James Flores MD [address] [place] [address] [phone] Social History Tobacco Use Types Packs/Day Years [...] 09/03/2024 11:15 AM EDT Office Visit [facility] [address] [place] [address] [phone] James Flores MD [address] [place], [place] [phone] documented as of this encounter Visit Diagnoses Not on filedocumented in this encounter Care Teams Labor Standards Director Relationship Specialty Start Date End Date James Flores MD [address] [place] [address] PCP - General Internal Medicine 02/04/14 documented as of this encounter
== END 2024-07-29 11:23 | disposition home or self-care (01) ==
LOC: HO.HOS 10:33
PROVIDERS: PCP Internal Medicine; Visit Provider Physician Assistant
DX: M17.0 Bilateral primary osteoarthritis of knee (principal); E11.9 Type 2 diabetes mellitus without complications
CPT/HCPCS: 20610; 99203

== ENCOUNTER → 2024-07-29 10:37 | Outpatient (BNV) | payer OTHER, SELFPAY | PROVIDERS: Visit Provider Radiology Diagnostic Radiology | DX: M25.561 Pain in right knee (principal); M25.562 Pain in left knee | CPT/HCPCS: 73560 ==

== ENCOUNTER 2024-07-31 10:25 | Outpatient (AMB) | payer MEDICARE, SELFPAY ==
--- NOTE | 2024-07-31 10:27 | A.OFFVIS_ITS ---
Vital Signs 07/31/24 10:28 Height 4 ft 11 in Weight 176 lb 5.917 oz BMI 35.6 BP 150/74 H Blood Pressure Location Rt brachial Position Sitting Pulse 72 Pulse Source Pulse Oximeter Pulse Oximetry (%) 96 Oxygen Delivery Method Room Air Intake Visit Reasons: DM Intake Note: Patient presents today for a follow-up for Type 2 Diabetes Mellitus: Last Diabetic Eye exam: 10/2023, Pt has cataracts, pending surgery. Last Podiatry Exam: Does not see a Resource Protection Specialist Most recent HbA1c: 8.5%, 07/31/2024 Random Glucose- 86 mg/dL, Today Flower Pot Press Operator Required: Yes Flower Pot Press Operator Language: Switchboard Wirer Services: Flower Pot Press Operator Offered & Declined Accompanied by: INDUSTRIAL X RAY OPERATOR Allergies morphine [Morphine] Allergy (Intermediate, Verified 07/31/24 10:50) TACHYCARDIA, ANXIETY oxycodone [Percocet] Allergy (Intermediate, Verified 07/31/24 10:50) Palpitations acetaminophen [From Percocet] Allergy (Verified 07/31/24 10:50) Palpitations prednisone [PREDNISONE] Adverse Reaction (Intermediate, Verified 07/31/24 10:50) ANXIETY HPI Comments Details: 68 year old female presenting for diabetic follow up Medical history: HTN, HLD, Vitamin D deficiency, hypercalcemia T2DM: Initially diagnosed with T2DM in 1999 during a routine screening physical. Was initially started on treatment with orals, and has been requiring insulin since 2014. Current regimen Lantus 38 units qHS, Humalog 12 SS Actos 30 mg PO daily Ozempic 0.5 mg-increased last visit from 0.25. POC A1C today is 8.5% from 9.1. She has been on daily prednisone for concern for GCA. This dose is currently at 2.5mg and plan is to taper off No recent hypoglycemia Family history of T2DM in her mother, daughter and her siblings. Last eye exam 10/2023, cataracts Denies neuropathy, does not see podiatry. Has nephropathy, CKD-follows with renal Has HLD, on Atorvastatin 80 mg PO daily and Zetia 10 mg PO daily. Has CAD-follows with cardiology 2) Hypercalcemia: Following with Dr Sylvester BALDERRAMA CONSTITUTIONAL: Denies weight loss, fever and chills. HEENT: Denies changes in vision and hearing. RESPIRATORY: Denies SOB and cough. CV: Denies palpitations and CP GI: Denies abdominal pain, nausea, vomiting and diarrhea. : Denies dysuria and urinary frequency. MSK: Denies new myalgia and joint pain. SKIN: Denies rash and pruritus. NEUROLOGICAL: Denies headache PSYCHIATRIC: Denies recent changes in mood. PHYSICAL EXAM: GENERAL: Alert and oriented x 3. NAD EYES: EOMI. Anicteric. HENT: Moist mucous membranes. No scleral icterus. No cervical lymphadenopathy. LUNGS: Clear to auscultation bilaterally. CARDIOVASCULAR: Regular rate and rhythm. Systolic murmur. No JVD. ABDOMEN: Soft, non-tender +bs EXTREMITIES: No edema. Non-tender. SKIN: No rashes or lesions. Warm. NEUROLOGIC: No focal neurological deficits. CN II-XII grossly intact PSYCHIATRIC: Cooperative. Appropriate mood and affect [facility] Medical History Abnormal Pap smear of cervix Osteoporosis Goiter Hyperparathyroidism Hypercalcemia Vitamin D deficiency HLD (hyperlipidemia) HTN (hypertension) T2DM (type 2 diabetes mellitus) On beta anurag at home Chronic constipation Diabetes Anemia GERD (gastroesophageal reflux disease) Sleep apnea Asthma CAD (coronary artery disease) Angina pectoris HTN (hypertension) Surgical History Hx of heart artery stent Hx of cholecystectomy History of esophagogastroduodenoscopy (EGD) H/O colonoscopy Family History Father Liver problem Mother Diabetes Obesity Social History Household Members Other:: With Housing: House Alcohol intake: never Patient Tobacco Use Status: Never used Tobacco Current occupational status: disabled Sexual orientation: Straight/Heterosexual Gender identity: Female Physical Exam Vital Signs: Last Vital Signs Pulse 72 07/31/24 10:28 BP 150/74 H 07/31/24 10:28 Pulse Ox 96 07/31/24 10:28 Oxygen Delivery Method Room Air 07/31/24 10:28 BMI result Body Mass Index 35.6 Results AMB Hemoglobin A1c AMB Hemoglobin A1c 8.5 % Last Edit by SHAHEED Dalton on 07/31/24 10:50 Results Reviewed Results Reviewed: Laboratory Last Values Glucose (Clinic) 86 mg/dL (60-115) 07/31/24 10:35 Assessment & Plan Assessment & Plan (1) T2DM (type 2 diabetes mellitus): Code(s): E11.9 - Type 2 diabetes mellitus without complications Category: Medical Qualifiers: Diabetes mellitus jail insulin use: with rn long term care use Diabetes mellitus complication status: with hyperglycemia Qualified Code(s): E11.65 - Type 2 diabetes mellitus with hyperglycemia; Z79.4 - MCC (current) use of insulin Plan 69 year old female with improving glycemic control despite recent daily prednisone use Prednisone dose decreasing. Will increase ozempic to 1mg weekly Do not want to make any additional changes given that she is doing well and steroid dose is decreasing Return in six weeks or sooner as needed for blood glucose review Orders: Orders AMB Hemoglobin A1c Today E11.65 - Type 2 diabetes mellitus with hyperglycemia, Z79.4 - terminal makeup operator (current) use of insulin Medications: New Ozempic (semaglutide) 1 mg (0.75 mL) subcut QWEEK 3 mL 3RF NS E11.65 - Type 2 diabetes mellitus with hyperglycemia, Z79.4 - terminal makeup operator (current) use of insulin Discontinued semaglutide (Ozempic) Discontinued Reason: Doctor's Order 0.5 mg (0.736 mL) subcut QWEEK 4 weeks 3 mL 5RF Coding Level of Care Code Est Pt Level 4 (68518) Diagnoses Type 2 diabetes mellitus with hyperglycemia, with long-term current use of insulin E11.65; Z79.4 Diabetes mellitus jail insulin use: with jail use Diabetes mellitus complication status: with hyperglycemia
[2024-07-31 10:28] VITALS: BP 150/74; PULSE 72; O2SAT 96; BMI 35.6
[2024-07-31 10:40] LABS: Glucose, Whole Blood 86 mg/dL (60-115)
--- OUTSIDE RECORDS SUMMARY | 2024-07-31 11:55 | XMS_ITS | Encounter Summary ---
Author Organization [facility] Address [address] [place] [address] Phone Care Team Providers Care Spreading Machine Operator Name Role Phone James Grant MD Primary Care Provider Unav ailable Reason for Visit * Reason Comments Med Refill Encounter Details Date Type Department Care Team (Late st Contact Info) Description 12/14/2022 Refill [facility] [address] [place] [address] Osmany Leung MD Social History [...] on filedocumented in this encounter Care Teams Spreading Machine Operator Relationship Specialty Start Date End Date James Grant MD PCP - General 03/23/20 documented as of this encounter
--- OUTSIDE RECORDS SUMMARY | 2024-07-31 11:55 | XMS_ITS | Patient Health Record ---
Author Organization [facility] Address [address] [place] [address] Care Team Providers Care Hoop Flaring Machine Operator Helper Name Role Phone Rudy Ashraf MD, James Primary Care Provide r Unavailable Moris Duron Jr Unavailable [phone] Reason For Referral No Information Plan Of Treatment No Information Insurance Providers Payer Name Payer Address Payer Phone Subscriber Number Group Number Insured Name Patient Relationship to Insured Coverage Start Date Coverage End Date MEDICARE OF [place] [address] [place] [id number] STEPHANI JOE Self - patient is the insured MEDICAID OF [facility] [address] [place] [address] [id number] STEPHANI JOE Self - patient is the insured
--- OUTSIDE RECORDS SUMMARY | 2024-07-31 11:55 | XMS_ITS | Clinical Summary ---
Author Organization [facility] Address [address] [place] [address] Phone Care Team Providers Care Used Car Make Ready Worker Name Role Phone James Grant MD Primary [...] complete this topic Insurance [place] [id number] [place] Care Teams Used Car Make Ready Worker Relationship Specialty Start Date End Date James Grant MD PCP - General 03/23/20
--- OUTSIDE RECORDS SUMMARY | 2024-07-31 11:55 | XMS_ITS ---
Author Name Mr. Arlen Márquez Address [address] [place] [address] Phone [phone] [facility] Care Team Providers Care Gas Producer Name Role Phone Micah Judge Unavailable [phone] Reason for Referral Not Available Allergies, adverse [...] 2021-11-04 No Data Available OneTouch Delica Plus Oxinfd30Q Miscellaneous TEST BLOOD SUGAR THREE OR FOUR [...] of Service Diagnosis/Co mplaint No Data Available [facility], ([place]) 07/12/2022 Type 2 diabetes mellitus wit h diabetic chronic kidney diseaseChronic kidney disease, stage 3bLong term (current) use of insulinMorbid (severe) obesity due to excess caloriesBody mass index (BMI) 40.0-44.9, adultOther specified health statusConstipation, unspecifiedProblems related to health literacyPrsnl hx of TIA (TIA), and cereb infrc w/o resid deficits No Data Available [facility], [facility]) 07/12/2022 No Data Available [facility], [facility]) 07/12/2022 No Data Available [facility], [facility]) 07/12/2022 No Data Available [facility], [facility]) 07/12/2022 No Data Available [facility] 07/12/2022 No Data Available [facility] 07/22/2022 Morbid (severe) obesity due to excess caloriesBody mass index (BMI) 40.0-44.9, adultType 2 diabetes mellitus with diabetic chronic kidney diseaseChronic kidney disease, stage 3bPrsnl hx of TIA (TIA), and cereb infrc w/o resid deficitsOther specified health status No Data Available [facility] 07/22/2022 Vital Signs Date of Collection Vitals 2022-07-12 11:38:39 Height - 147.32 cmWe ight - 87.09 kgBody Mass Index (BMI) - 40.13 kg/m2 Social History Sex Female History of Procedures Procedures Service Procedure code Service date Servicing provider Phone# No Data Available [id number] 2022-07-12 No Data Available No Data Available [...] le No Data Available No Data Available [id number] 2022-07-22 No Data Available No Data Available [...] modifier 95)Continue to see PCP. Follow-up with [facility] as needed for any acute or [...]
== END 2024-07-31 11:04 | disposition home or self-care (01) ==
LOC: HO.ENCR 10:26
PROVIDERS: PCP Internal Medicine; Visit Provider Internal Medicine
DX: E11.65 Type 2 diabetes mellitus with hyperglycemia (principal); Z79.4 Long term (current) use of insulin

== ENCOUNTER → 2024-07-31 10:25 | Outpatient (BNVA) | payer MEDICARE, SELFPAY | PROVIDERS: PCP Internal Medicine; Visit Provider Internal Medicine | DX: E11.65 Type 2 diabetes mellitus with hyperglycemia (principal); Z79.4 Long term (current) use of insulin | CPT/HCPCS: 82947; 83036; 99212 ==

== ENCOUNTER 2024-08-01 10:40 | Outpatient (AMB) | payer MEDICARE, SELFPAY ==
--- NOTE | 2024-08-01 10:42 | A.OFFVIS_ITS ---
Intake Visit Reasons: Telehealth 6 mo follow up Intake Note: Patient 6 month telehealth follow up for constipation. Patient denies any GI issues for today telehealth visit. Patient daughter La Nena would autocad technician for her mom, Jayne. Adapted Physical Education Specialist Required: No Accompanied by: Daughter Allergies morphine [Morphine] Allergy (Intermediate, Verified 08/01/24 10:41) TACHYCARDIA, ANXIETY oxycodone [Percocet] Allergy (Intermediate, Verified 08/01/24 10:41) Palpitations acetaminophen [From Percocet] Allergy (Verified 08/01/24 10:41) Palpitations prednisone [PREDNISONE] Adverse Reaction (Intermediate, Verified 08/01/24 10:41) ANXIETY Medication List - Last Reconciled 08/01/24 by Jose Mazariegos MD acetaminophen 500 mg PO Q12H PRN acetaminophen ER (Tylenol Arthritis Pain) 650 mg PO Q12H PRN albuterol sulfate 90 mcg/actuation (Ventolin HFA) 2 puffs inhalation Q4-6H PRN amlodipine 5 mg PO DAILY atorvastatin (Lipitor) 80 mg PO DAILY baclofen 10 mg PO BID bisacodyl (Dulcolax (bisacodyl)) 10 mg AR DAILY PRN blood sugar diagnostic (OneTouch Verio test strips) TEST BLOOD SUGAR THREE OR FOUR TIMES DAILY blood-glucose meter (Silver Lining Solutionsuch Verio Flex Meter) As directed blood-glucose sensor (Performance TechnologyStyle Collin 3 Sensor device) USE DIRECTED. CHANGE EVERY 14 DAYS blood-glucose,turn supervisor,cont (FreeStyle Collin 3 Benton) As directed budesonide 90 mcg/actuation (Pulmicort Flexhaler) 2 inhalations inhalation BID calcium citrate-vitamin D3 200 mg-6.25 mcg (250 unit) 2 tabs PO DAILY calcium polycarbophil (Fiber-Lax) 1,250 mg (2 x 625 mg) PO QAM cholecalciferol (vitamin D3) (Vitamin D3) 25 mcg PO QAM clopidogrel 75 mg PO DAILY cyclobenzaprine 5 mg PO TID PRN diclofenac sodium 1% 2 grams topical QID docusate sodium 200 mg (2 x 100 mg) PO BEDTIME ezetimibe 10 mg PO QAM ferrous sulfate 325 mg PO TID fluticasone propionate 110 mcg/actuation (Flovent HFA) 1 puff inhalation BID FreeStyle Collin 3 Plus Sensor (blood-glucose sensor) every 15 days NS furosemide 20 mg PO DAILY insulin glargine (Lantus Solostar U-100 Insulin) 38 units subcut BEDTIME insulin lispro (Humalog KwikPen (U-100) Insulin) Sliding Scale 6-16 subcutaneously 3 times a day; lancets As directed lancets (TRUEplus Lancets) As directed to test blood sugar 3-4 times a day lidocaine 5% 1 patch topical DAILY loratadine 10 mg PO QAM metoprolol tartrate 50 mg PO BID omeprazole 20 mg PO DAILY Ozempic (semaglutide) 1 mg (0.75 mL) subcut QWEEK NS pen needle, diabetic As directed pioglitazone (Actos) 30 mg PO DAILY polyethylene glycol 3350 (Miralax) 17 grams PO DAILY 30 days sennosides (senna) 8.6 mg PO DAILY PRN HPI HPI Telehealth 6 mo follow up: Details: Telemedicine visit for this 69 year old Scottish speaking female for FU of GERD, constipation and gastric and colon polyps. TODAY'S VISIT: Patient denies any GI issues for today telehealth visit. Patient daughter Joyce would autocad technician for her mom, Jayne. Jayne is doing well and denies any GI problems Sometimes she is unable to use the bathroom - takes the medication and is able to go. Having problems with her knees PAST VISITS: Pt is accompanied by Joyce, her daughter and FINISHER OPERATOR Per daughter, pt is not having any abd pain and going to the bathroom OK - 1-2 times a day. Takes Senna only when she is constipated - gets diarrhea if not constipated. Patient denies symptoms of heartburn, dysphagia, nausea, vomiting, change in appetite or weight. Denies recent change in bowel habits, black stools or rectal bleeding. Patient denies major cardiac or pulmonary problems, loud snoring or sleep apnea Denies problems with anesthesia in the past. Pt is on Plavix. Patient denies known family history of colon polyps, colon cancer or other GI malignancies. LABS IN [employer] : REVIEWED IMAGING STUDIES: REVIEWED ENDOSCOPIC STUDIES: 07/2022 EGD AND COLON SHOWED: Endoscopy Findings: STOMACH: Mild gastric erythema with nodular appearing mucosa in the gastric body. Biopsies were obtained from the gastric body and antrum. A few 5-8 mm sessile polyps in the gastric body - biopsied. DUODENUM: Normal - biopsied to check for celiac sprue Colonoscopy Findings: Three small and three medium sized polyps removed Moderate diverticulosis seen in the left colon Large hemorrhoids on retroflexed exam. Plan: Repeat Colonoscopy interval based on path results - in 2-3 years if multiple polyps are adenomatous and 10 years if polyps are hyperplastic. BIOPSIES SHOWED: A. Small bowel, biopsy: Small intestinal mucosa with lamina propria hemosiderin deposition and mildly increased intraepithelial lymphocytes; otherwise within normal limits. See comment. B. Stomach, antrum, biopsy: Antral-type mucosa with mild chronic inactive inflammation; no Helicobacter organisms seen. C. Stomach, body, biopsy: Oxyntic mucosa with mild chronic inactive inflammation; no Helicobacter organisms seen. D. Stomach, polyp: Hyperplastic mucosal polyp with background mild chronic inactive inflammation; no Helicobacter organisms seen. E. Colon, ascending, polypectomies (2): Tubular adenomata; negative for high- grade dysplasia or carcinoma. F. Colon, transverse, polypectomies (2): Hyperplastic mucosal polyps. G. Colon, sigmoid, polypectomy: Hyperplastic mucosal polyp PAST GI HISTORY BY REVIEW OF MEDICAL RECORDS: 06/2023 PT WAS SEEN BY CATIA Palacios: A 60-year-old female follows up with chronic constipation. She has no specific complaints- She is not consistent bowel regimen Reviewed diet she does not improve fiber. BM to 3 days -she has her glucose is typically elevated Appetite is very good She has no nausea, vomiting hematemesis, hematochezia fever chills Colonoscopy 2022- repeat 3 years- 2025 Plan colonoscopy 2025 ER protocol- bowel regimen- consistent Medications: New sennosides (senna) 8.6 mg PO DAILY 30 days PRN 30 caps 1RF constipation Patient Instructions: Will add senna to bowel regimen continue with colace miralx hydrate HFD ER protocol reviewed diverticulosis/diverticulitis Avoid straining hemorrhoids Encouraged to call questions or concerns A follow-up PCP Repeat asymptomatic colonoscopy 2025 [facility] Medical History Abnormal Pap smear of cervix Osteoporosis Goiter Hyperparathyroidism Hypercalcemia Vitamin D deficiency HLD (hyperlipidemia) HTN (hypertension) T2DM (type 2 diabetes mellitus) On beta anurag at home Chronic constipation Diabetes Anemia GERD (gastroesophageal reflux disease) Sleep apnea Asthma CAD (coronary artery disease) Angina pectoris HTN (hypertension) Surgical History Hx of heart artery stent Hx of cholecystectomy History of esophagogastroduodenoscopy (EGD) H/O colonoscopy Family History Father Liver problem Mother Diabetes Obesity Social History Household Members Other:: With Housing: House Alcohol intake: never Patient Tobacco Use Status: Never used Tobacco Current occupational status: disabled Sexual orientation: Straight/Heterosexual Gender identity: Female Telehealth Telehealth Telehealth Platform: Telephone Location of provider rendering services: practice address Location of patient: address on file Patient Identification confirmed using: Name, : Yes Telehealth method: voice only Patient verbally consented to treatment: Yes Patient verbally consented to billing insurance company: Yes Patient informed of any privacy concerns related to visit: Yes Minutes spent on Phone/Video with Pt.: 12 Assessment & Plan Assessment & Plan (1) History of colon polyps: Comment: Colonoscopy Findings: Three small and three medium sized polyps removed Moderate diverticulosis seen in the left colon Large hemorrhoids on retroflexed exam. Plan: Repeat Colonoscopy interval based on path results - in 2-3 years if multiple polyps are adenomatous (Due 07/2025) Code(s): Z86.0100 - Personal history of colon polyps, unspecified Category: Medical (2) Hemorrhoids: Code(s): K64.9 - Unspecified hemorrhoids Category: Medical (3) GERD (gastroesophageal reflux disease): Code(s): K21.9 - Gastro-esophageal reflux disease without esophagitis Category: Medical (4) Chronic constipation: Comment: Reinforced importance of consistent bowel regimen Colace 200 mg and MiraLax q.h.s., maintain high-fiber diet. Likely due to iron supplement-as well as diabetes not well controlled per her report. Medication list reviewed Code(s): K59.09 - Other constipation Category: Medical Plan 69 year old Scottish speaking female with GERD, constipation and gastric and colon polyps. Pt takes Senna prn when she is constipated Patient denies major cardiac or pulmonary problems, loud snoring or sleep apnea Denies problems with anesthesia in the past. Pt is on Plavix. Patient denies known family history of colon polyps, colon cancer or other GI malignancies. ENDOSCOPIC STUDIES: 07/2022 EGD AND COLON SHOWED: Endoscopy Findings: STOMACH: Mild gastric erythema with nodular appearing mucosa in the gastric body. Biopsies were obtained from the gastric body and antrum. A few 5-8 mm sessile polyps in the gastric body - biopsied. DUODENUM: Normal - biopsied to check for celiac sprue Colonoscopy Findings: Three small and three medium sized polyps removed Moderate diverticulosis seen in the left colon Large hemorrhoids on retroflexed exam. Plan: Repeat Colonoscopy interval based on path results - in 2-3 years if multiple polyps are adenomatous Pt will be scheduled for an EGD (FU of hyperplastic gastric polyps) and a colon in 07/2025 (surveillance for colon polyps) FU in 6 months Coding Level of Care Code Tele Est Pt Level 3 (05589) Diagnoses History of colon polyps Z86.0100 Hemorrhoids K64.9 GERD (gastroesophageal reflux disease) K21.9 Chronic constipation K59.09 Time Spent (min) 12
--- OUTSIDE RECORDS SUMMARY | 2024-08-01 11:18 | XMS_ITS | Encounter Summary ---
Author Organization [facility] Address [address] [facility] [address] [place] [address] Care Team Providers Care Last Cleaner Name Role Phone James Flores MD Primary Care Provide r Reason for Visit * Reason Comments Med Refill Encounter Details Date Type Department Care Team (Late st Contact Info) Description 08/27/2023 Refill [facility] MEDICINE [address] [place] [address] Name, MD Loki [address] [place] [address] Gastroesophageal reflux disease without esophagitis Social History [...] t he electric, gas, oil or water [employer] threatened to shut off services in your [...] 11:15 AM EDT Office Visit [facility] MEDICINE [address] [place] [address] James Flores MD [address] [place] [address] documented as of this encounter Visit Diagnoses Diagnosis Gastroesophageal reflux disease without esophagitis Esophageal reflux documented in this encounter Care Teams Last Cleaner Relationship Specialty Start Date End Date James Flores MD [address] [place] [id number] PCP - General Internal Medicine 02/04/14 documented as of this encounter
--- OUTSIDE RECORDS SUMMARY | 2024-08-01 11:18 | XMS_ITS | Encounter Summary ---
Author Organization [employer] Address [address] [facility] [address] [place] [address] Care Team Providers Care Management Intern Name Role Phone James Flores MD Primary Care Provide r Encounter Details Date Type Department Care Team (Late st Contact Info) Description 08/22/2022 Orders Only [facility] CHC MED & PEDS [address] [place], [place] [phone] Jaja Hammond LPN Social History Tobacco Use [...] 09/03/2024 11:15 AM EDT Office Visit [facility] MEDICINE [address] [place], [place] [phone] James Flores MD [address] [place] [address] documented as of this encounter Visit Diagnoses Not on filedocumented in this encounter Care Teams Management Intern Relationship Specialty Start Date End Date James Flores MD [address] [place] [id number] PCP - General Internal Medicine 02/04/14 documented as of this encounter
--- OUTSIDE RECORDS SUMMARY | 2024-08-01 11:18 | XMS_ITS | Encounter Summary ---
Author Organization [employer] Address [address] [facility] [address] [place] [address] Care Team Providers Care Environmental Monitoring Technician Name Role Phone James Flores MD Primary Care Provide r Encounter Details Date Type Department Care Team ([facility] st Contact Info) Description 03/14/2023 Telephone [facility] [address] [place] [address] Adriana Odell MA Social History Tobacco Use [...] Description 09/03/2024 11:15 AM EDT Office Visit [facility] MEDICINE [address] [place] [address] James Flores MD [address] [place] [address] documented as of this encounter Visit Diagnoses Not on filedocumented in this encounter Care Teams Environmental Monitoring Technician Relationship Specialty Start Date End Date James Flores MD [address] [place] [address] PCP - General Internal Medicine 02/04/14 documented as of this encounter
--- OUTSIDE RECORDS SUMMARY | 2024-08-01 11:18 | XMS_ITS | Encounter Summary ---
Author Organization [employer] Address [address] [facility] [address] [place] [address] Care Team Providers Care Desktop Analyst Name Role Phone James Flores MD Primary Care Provide r Encounter Details Date Type Department Care Team (Late st Contact Info) Description 06/14/2022 Orders Only [facility] CHC MED & PEDS [address] [place], [place] [phone] Jaja Hammond LPN Social History Tobacco Use [...] Office Visit [facility] MEDICINE [address] [place], [place] [phone] James Flores MD [address] [place] [address] documented as of this encounter Visit Diagnoses Not on filedocumented in this encounter Care Teams Desktop Analyst Relationship Specialty Start Date End Date James Flores MD [address] [place] [id number] PCP - General Internal Medicine 02/04/14 documented as of this encounter
--- OUTSIDE RECORDS SUMMARY | 2024-08-01 11:18 | XMS_ITS | Encounter Summary ---
Author Organization [employer] Address [address] 7t [place] [address] Care Team Providers Care System Safety Manager Name Role Phone James Flores MD Primary Care Provide r Reason for Visit * Reason Comments Med Refill Encounter Details Date Type Department Care Team (Late st Contact Info) Description 05/10/2024 Refill [facility] [address] [place] [address] Coco Montiel NP 230 [place] [address] Mild intermittent asthma without complication Social History [...] Description 09/03/2024 11:15 AM EDT Office Visit [facility] [address] [place] [address] James Flores MD 230 [place] [address] documented as of this encounter Visit Diagnoses Diagnosis Mild intermittent asthma without complication documented in this encounter Additional Health Concerns Assessment Noted Time PHQ-9 Depression Total Score: 0 01/30/20 24 10:37 AM EST documented as of this encounter Care Teams System Safety Manager Relationship Specialty Start Date End Date James Flores MD 230 [place] [address] PCP - General Internal Medicine 02/04/14 documented as of this encounter
--- OUTSIDE RECORDS SUMMARY | 2024-08-01 11:18 | XMS_ITS | Encounter Summary ---
Author Organization [employer] Address [address] 7t [place] [address] Care Team Providers Care Chief Financial Officer Name Role Phone James Flores MD Primary Care Provide r Encounter Details Date Type Department Care Team (Late st Contact Info) Description 01/09/2023 Orders Only [facility] [address] [place] [address] Jaja Hammond LPN Social History Tobacco Use [...] Description 09/03/2024 11:15 AM EDT Office Visit [facility] 230 [place] [address] James Flores MD [address] [place] [address] documented as of this encounter Visit Diagnoses Not on filedocumented in this encounter Care Teams Chief Financial Officer Relationship Specialty Start Date End Date James Flores MD [address] [place], [place] [phone] PCP - General Internal Medicine 02/04/14 documented as of this encounter
--- OUTSIDE RECORDS SUMMARY | 2024-08-01 11:18 | XMS_ITS | Encounter Summary ---
Author Organization [employer] Address [address] [facility] 7t [place] [address] Care Team Providers Care Rn Office Name Role Phone James Flores MD Primary Care Provide r Reason for Visit * Reason Comments Med Refill Encounter Details Date Type Department Care Team ([facility] st Contact Info) Description 03/12/2023 Refill [facility] [address] [place] [address] James Flores MD [address] [place] [address] Chronic anemia Social History Tobacco Use Types [...] t he electric, gas, oil or water [employer] threatened to shut off services in your [...] Office Visit [facility] [address] [place] [address] James Flores MD [address] [place] [address] documented as of this encounter Visit Diagnoses Diagnosis Chronic anemia Unspecified anemia documented in this encounter Care Teams Rn Office Relationship Specialty Start Date End Date James Flores MD [address] [place] [address] PCP - General Internal Medicine 02/04/14 documented as of this encounter
--- OUTSIDE RECORDS SUMMARY | 2024-08-01 11:18 | XMS_ITS | Encounter Summary ---
Author Organization [employer] Address [address] [facility] 7t [place] [address] Care Team Providers Care Mental Telepathist Name Role Phone James Flores MD Primary Care Provide r Encounter Details Date Type Department Care Team (Late st Contact Info) Description 07/31/2024 Orders Only GENERIC EXTERNAL DATA DEPARTMENT Provider, [...] Description 09/03/2024 11:15 AM EDT Office Visit [facility] [address] [place] [address] James Flores MD [address] [place] [address] documented as of this encounter Procedures Procedure Name Priority Date/Time Associated Diagnosis Comments GLUCOSE, WHOLE BLOOD Routine 07/31/2024 10:35 AM EDT documented in this encounter Results * Glucose, Whole Blood (07/31/2024 10:35 AM EDT) Glucose, Whole Blood 86 60 - 115 mg/dL [facility] Comment:METER #: [id number] Testing performed in the Endocrinology Department [address] , [address], [facility]. 07/31/2024 10:3 5 AM EDT 07/31/2024 10:39 AM EDT us Generic External Data Provider LAB BLOOD ORDERAB LES Final Result [facility] [address] [place] [address] [phone] documented in this encounter Visit Diagnoses Not on filedocumented in this encounter Additional Health Concerns Assessment Noted Time PHQ-9 Depression Total Score: 0 01/30/20 10:37 AM EST documented as of this encounter Care Teams Mental Telepathist Relationship Specialty Start Date End Date James Flores MD [address] [place] [address] PCP - General Internal Medicine 02/04/14 documented as of this encounter
--- OUTSIDE RECORDS SUMMARY | 2024-08-01 11:18 | XMS_ITS | Encounter Summary ---
Author Organization [employer] [facility] Address [address] [facility] [address] [address] Care Team Providers Care Central Office Trouble Shooter Name Role Phone James Flores MD Primary Care Provide r Reason for Visit * Reason Comments Med Refill Encounter Details Date Type Department Care Team (Late st Contact Info) Description 08/21/2022 Refill [facility] [address] [place] [address] James Flores MD [address] [place], [place] [phone] Social History Tobacco Use Types Packs/Day Years [...] Visit [facility] [address] [place], [place] [phone] James Flores MD [address] [place], [place] [phone] documented as of this encounter Visit Diagnoses Not on filedocumented in this encounter Care Teams Central Office Trouble Shooter Relationship Specialty Start Date End Date James Flores MD [address] [place] [address] PCP - General Internal Medicine 02/04/14 documented as of this encounter
--- OUTSIDE RECORDS SUMMARY | 2024-08-01 11:18 | XMS_ITS | Encounter Summary ---
Author Organization [employer] Address [address] [facility] 7t [place] [address] Care Team Providers Care Jet Pilot Name Role Phone James Flores MD Primary Care Provide r Encounter Details Date Type Department Care Team ([facility] st Contact Info) Description 01/11/2024 Telephone [facility] [address] [place], [place] [phone] James Flores MD [address] [place], [place] [phone] Social History Tobacco Use Types Packs/Day Years [...] Description 09/03/2024 11:15 AM EDT Office Visit [facility] [address] [place] [address] James Flores MD [address] [place] [address] documented as of this encounter Visit Diagnoses Not on filedocumented in this encounter Care Teams Jet Pilot Relationship Specialty Start Date End Date James Flores MD [address] [place] [address] PCP - General Internal Medicine 02/04/14 documented as of this encounter
--- OUTSIDE RECORDS SUMMARY | 2024-08-01 11:18 | XMS_ITS | Encounter Summary ---
Author Organization [employer] Address [address] 7t [place] [address] Care Team Providers Care Research And Evaluation Analyst Name Role Phone James Flores MD Primary Care Provide r Encounter Details Date Type Department Care Team (Late st Contact Info) Description 07/28/2024 Orders Only [facility] External Provider, [facility] Social History Tobacco Use Types Packs/Day Years [...] Description 09/03/2024 11:15 AM EDT Office Visit [facility] 230 [place] [address] James Flores MD 230 [place] [address] documented as of this encounter Procedures Procedure [...] EDT Narrative 07/28/2024 1:29 PM EDT ? [facility] ?[address] ?[place] [address] ? CT Scan Report ? Signed ? Patient: Cappa,Jayne ?MR#: [id number] ? : 1955 ?Acct:[id number] ? Age/Sex: 69 / F ?ADM Date: 07/28/24 ? Loc: HO.ED ? Attending Dr: ? Ordering Physician: Ligia Marie ?? Date of Service: 07/28/24 ?? Procedure(s): CT cervical spine wo IV con ?? Accession Number(s): [id number] ? cc: James Trimble MD; Ligia Marie ? Report Number: ?? [id number]: Total DLP = 1119.00 mGy-cm ? CLINICAL [...] DD/ 1327 ? TD/TT: 07/28/24 1327 ? Physician Chief Of Pathology: ? Procedure Note Viridiana Gilbert - 07/29/[address] [address] [address] Scan Report Signed Patient: Jayne LaneMR#: [id number] : 6Acct:[id number] Age/Sex: 69 / FADM Date: 07/28/24 Loc: HO.ED Attending Dr: Ordering Physician: Ligia Marie Date of Service: 07/28/24 Procedure(s): CT cervical spine wo IV con Accession Number(s): [id number] cc: James Trimble MD; Ligia Marie Report Number: [id number]: Total DLP = 1119.00 mGy-cm CLINICAL HISTORY: [...] OV> 07/28/24 1328 DD/ 1327 TD/TT: 07/28/24 132 Physician Chief Of Pathology: [facility] External Provider IMG CT PROCEDURES Edited Result - Final * XR Shoulder 2+ Views Left (07/28/2024 1:20 PM EDT) Anatomical Region Laterality Modality Upper Extremities, Shoulder Left Radi ographic Imaging 07/28/2024 1:20 PM EDT Narrative 07/28/2024 1:21 PM EDT ? [facility] ?[address] ?[place] [address] ?XRay Report ? Signed ? Patient: Cappa,Jayne ?MR#: [id number] ? : 1955 ?Acct:[id number] ? Age/Sex: 69 / F ?ADM Date: 07/28/24 ? Loc: HO.ED ? Attending Dr: ? Ordering Physician: Ligia Marie ?? Date of Service: 07/28/24 ?? Procedure(s): XR shoulder LT min 2V ?? Accession Number(s): [id number] ? cc: James Trimble MD; Ligia Marie [...] DD/ 1320 ? TD/TT: 07/28/24 1320 ? Physician Chief Of Pathology: ? Procedure Note Ofelia, Viridiana - 07/29/[address] [address] XRay Report Signed Patient: Jayne LaneMR#: [id number] : 1955cct:[id number] Age/Sex: 69 / FADM Date: 07/28/24 Loc: HO.ED Attending Dr: Ordering Physician: Ligia Marie Date of Service: 07/28/24 Procedure(s): XR shoulder LT min 2V Accession Number(s): [id number] cc: James Trimble MD; Ligia Marie CLINICAL [...] 07/28/24 1321 DD/ 1320 TD/TT: 07/28/24 1320 Physician Chief Of Pathology: us [facility] External Provider IMG XR PROCEDURES Edited Result - Final * CT Head w/o Contrast (07/28/2024 1:19 PM EDT) Anatomical Region Laterality Modality Head, Neck Computed Tomogra phy 07/28/2024 1:19 PM EDT Narrative 07/28/2024 1:20 PM EDT ? [facility] ?[address] ?[place], [place] [address] ? CT Scan Report ? Signed ? Patient: Cappa,Jayne ?MR#: [id number] ? : 1955 ?Acct:[id number] ? Age/Sex: 69 / F ?ADM Date: 07/28/24 ? Loc: HO.ED ? Attending Dr: ? Ordering Physician: Ligia Marie ?? Date of Service: 07/28/24 ?? Procedure(s): CT head/brain wo IV con ?? Accession Number(s): [id number] ? cc: James Trimble MD; Ligia Marie ? Report Number: ?? [id number]: Total DLP = ?0.00 mGy-cm ? CLINICAL [...] DD/ 1319 ? TD/TT: 07/28/24 1319 ? Physician Chief Of Pathology: ? Procedure Note Ofelia, Image - 07/29/[address] [address] [address] Scan Report Signed Patient: Jayne LaneMR#: [id number] : 6Acct:[id number] Age/Sex: 69 / FADM Date: 07/28/24 Loc: HO.ED Attending Dr: Ordering Physician: Ligia Marie Date of Service: 07/28/24 Procedure(s): CT head/brain wo IV con Accession Number(s): [id number] cc: James Trimble MD; Ligia Marie Report Number: [id number]: Total DLP = 0.00 mGy-cm CLINICAL HISTORY: [...] 07/28/24 1320 DD/ 1319 TD/TT: 07/28/24 1319 Physician Chief Of Pathology: [facility] External Provider IMG CT PROCEDURES Edited Result - Final * XR Toes 2+ Left (07/28/2024 1:06 PM EDT) Anatomical Region Laterality Modality Lower Extremities, Toes Left Radiogra phic Imaging 07/28/2024 1:06 PM EDT Narrative 07/28/2024 1:07 PM EDT ? [facility] [place] [facility] ?[address] ?[place] [address] ?XRay Report ? Signed ? Patient: Cappa,Jayne ?MR#: [id number] ? : 1955 ?Acct:[id number] ? Age/Sex: 69 / F ?ADM Date: 07/28/24 ? Loc: HO.ED ? Attending Dr: ? Ordering Physician: Ligia Marie ?? Date of Service: 07/28/24 ?? Procedure(s): XR toe LT min 2V ?? Accession Number(s): [id number] ? cc: James Trimble MD; Ligia Marie ? CLINICAL HISTORY: fall, L great toe pain ? 4 view soco2tr toe ? Comparison: None ? Findings: ?? [...] DD/ 1306 ? TD/TT: 07/28/24 1306 ? Physician Chief Of Pathology: ? Procedure Note Viridiana Gilbert - 07/29/2024 [place] [address] XRay Report Signed Patient: Jayne LaneMR#: [id number] : 6Acct:[id number] Age/Sex: 69 / FADM Date: 07/28/24 Loc: HO.ED Attending Dr: Ordering Physician: Ligia Marie Date of Service: 07/28/24 Procedure(s): XR toe LT min 2V Accession Number(s): [id number] cc: James Trimble MD; Ligia Marie CLINICAL HISTORY: fall, L great toe pain 4 view ktzi6jj toe Comparison: None Findings: Bones intact. No [...] 07/28/24 1307 DD/ 1306 TD/TT: 07/28/24 1306 Physician Chief Of Pathology: us [facility] External Provider IMG XR PROCEDURES Edited Result - Final * XR Knee 4+ Views Right (07/28/2024 1:04 PM EDT) Anatomical Region Laterality Modality Lower Extremities, Knee Right Radiogra phic Imaging 07/28/2024 1:04 PM EDT Narrative 07/28/2024 1:07 PM EDT ? [facility] ?[address] ?[place] [address] ?XRay Report ? Signed ? Patient: Cappa,Jayne ?MR#: [id number] ? : 1955 ?Acct:[id number] ? Age/Sex: 69 / F ?ADM Date: 07/28/24 ? Loc: HO.ED ? Attending Dr: ? Ordering Physician: Ligia Marie ?? Date of Service: 07/28/24 ?? Procedure(s): XR knee RT 4V ?? Accession Number(s): [id number] ? cc: James Trimble MD; Ligia Marie [...] DD/ 1304 ? TD/TT: 07/28/24 1304 ? Physician Chief Of Pathology: ? Procedure Note Ofelia, Image - 07/29/2024 [facility] [address] [place] [address] XRay Report Signed Patient: Jayne LaneMR#: [id number] : 6Acct:[id number] Age/Sex: 69 / FADM Date: 07/28/24 Loc: HO.ED Attending Dr: Ordering Physician: Ligia Marie Date of Service: 07/28/24 Procedure(s): XR knee RT 4V Accession Number(s): [id number] cc: James Trimble MD; Ligia Marie CLINICAL [...] 07/28/24 1306 DD/ 1304 TD/TT: 07/28/24 1304 Physician Chief Of Pathology: [facility] External Provider IMG XR PROCEDURES Edited Result - Final documented in this encounter Visit Diagnoses Not on filedocumented in this encounter Additional Health Concerns Assessment Noted Time PHQ-9 Depression Total Score: 0 01/30/20 24 10:37 AM EST documented as of this encounter Care Teams Research And Evaluation Analyst Relationship Specialty Start Date End Date James Flores MD [address] [place] [address] PCP - General Internal Medicine 02/04/14 documented as of this encounter
--- OUTSIDE RECORDS SUMMARY | 2024-08-01 11:18 | XMS_ITS | Patient Health Record ---
Author Organization [employer] Address [address] [place] [address] Care Team Providers Care Motorboat Operator Name Role Phone Rudy Ashraf MD, James Primary Care Provide r Unavailable Moris Duron Jr Unavailable Reason For Referral No Information Plan Of Treatment No Information Insurance Providers Payer Name Payer Address Payer Phone Subscriber Number Group Number Insured Name Patient Relationship to Insured Coverage Start Date Coverage End Date MEDICARE OF [place] [address] [place] [id number] [phone] [id number] STEPHANI JOE Self - patient is the insured MEDICAID OF [facility] [address] [place] [address] [id number] STEPHANI JOE Self - patient is the insured
--- OUTSIDE RECORDS SUMMARY | 2024-08-01 11:18 | XMS_ITS | Encounter Summary ---
Author Organization [employer] Address [address] [facility] 7t [place] [address] Care Team Providers Care Engineering Production Liaison Name Role Phone James Flores MD Primary Care Provide r Reason for Visit * Reason Comments Med Refill Encounter Details Date Type Department Care Team (Late st Contact Info) Description 09/04/2023 Refill [facility] [address] [place] [address] Name, MD Loki [address] [place] [address] Gastroesophageal reflux disease without esophagitis Social History [...] t he electric, gas, oil or water [employer] threatened to shut off services in your [...] Description 09/03/2024 11:15 AM EDT Office Visit [facility] [address] [place] [address] James Flores MD [address] [place] [address] documented as of this encounter Visit Diagnoses Diagnosis Gastroesophageal reflux disease without esophagitis Esophageal reflux documented in this encounter Care Teams Engineering Production Liaison Relationship Specialty Start Date End Date James Flores MD [address] [place] [address] PCP - General Internal Medicine 02/04/14 documented as of this encounter
--- OUTSIDE RECORDS SUMMARY | 2024-08-01 11:18 | XMS_ITS | Encounter Summary ---
Author Organization [employer] Address [address] [facility] 7t [place] [address] Care Team Providers Care Check Inspector Name Role Phone James Flores MD Primary Care Provide r Reason for Visit * Reason Onset Date Comments Durable Medical Equipment 09/27/2023 Encounter Details Date Type Department Care Team (Late st Contact Info) Description 09/27/2023 Telephone [facility] [address] [place] [address] James Flores MD 230 [place], [place] [phone] Durable Medical Equipment Social History Tobacco Use [...] 1 flip pillow DME Please contact at [phone] * Telephone Encounter - Fernando Christie - 09/27/2023 2:40 PM EDT Tc from pt 10 in 1 flip pillow due to issues sleeping. Pt would like script to be faxed to [facility] If any questions you can contact pt at [phone]. documented in this encounter Plan of Treatment Upcoming Encounters Date Type Department Care Team (Late st Contact Info) Description 09/03/2024 11:15 AM EDT Office Visit [facility] [address] [place] [phone] James Flores MD 230 [place] [address] documented as of this encounter Visit Diagnoses Not on filedocumented in this encounter Care Teams Check Inspector Relationship Specialty Start Date End Date James Flores MD [address] [place] [address] PCP - General Internal Medicine 02/04/14 documented as of this encounter
--- OUTSIDE RECORDS SUMMARY | 2024-08-01 11:19 | XMS_ITS | Encounter Summary ---
Author Organization [employer] [facility] Address [address] [facility] 7t [place] [address] Care Team Providers Care Coin Dealer Name Role Phone James Flores MD Primary Care Provide r Encounter Details Date Type Department Care Team (Late st Contact Info) Description 05/11/2022 Telephone [facility] MEDICINE [address] [place] [address] [phone] James Flores MD [address] [place] [address] [phone] Social History Tobacco Use Types Packs/Day Years [...] 11:15 AM EDT Office Visit [facility] MED[facility]INE [address] [place] [address] [phone] James Flores MD [address] [place] [address] [phone] documented as of this encounter Visit Diagnoses Not on filedocumented in this encounter Care Teams Coin Dealer Relationship Specialty Start Date End Date James Flores MD [address] [place] [address] PCP - General Internal Medicine 02/04/14 documented as of this encounter
--- OUTSIDE RECORDS SUMMARY | 2024-08-01 11:19 | XMS_ITS | Encounter Summary ---
Author Organization [employer] Address [address] [facility] 7t [place] [address] Care Team Providers Care Steam Service Inspector Name Role Phone James Flores MD Primary Care Provide r Reason for Visit * Reason Onset Date Comments Durable Medical Equipment 07/30/2024 Encounter Details Date Type Department Care Team (Late st Contact Info) Description 07/30/2024 Telephone [facility] [address] [place] [address] James Flores MD [address] [place] [address] Durable Medical Equipment Social History Tobacco Use [...] encounter Miscellaneous Notes * Telephone Encounter - Heather Robb - 07/31/2024 2:55 PM EDT Please see message below and advise. If agree with DME, please provide dx and addend note to include incontinence to support the need. Thank you * Telephone Encounter - Ping Brady - 07/30/2024 4:35 PM EDT Tc from pt daughter Joyce requesting DME -Bed pads -Wipes -Commode bags documented in this encounter Plan of Treatment Upcoming Encounters Date Type Department Care Team (Late st Contact Info) Description 09/03/2024 11:15 AM EDT Office Visit [facility] [address] [place] [address] James Flores MD [address] [place] [address] documented as of this encounter Visit Diagnoses Not on filedocumented in this encounter Additional Health Concerns Assessment Noted Time PHQ-9 Depression Total Score: 0 11/19/20 24 10:37 AM EST documented as of this encounter Care Teams Steam Service Inspector Relationship Specialty Start Date End Date James Flores MD [address] [place] [address] PCP - General Internal Medicine 02/04/14 documented as of this encounter
--- OUTSIDE RECORDS SUMMARY | 2024-08-01 11:19 | XMS_ITS | Encounter Summary ---
Author Organization [employer] Address [address] [facility] 7t [place] [address] Care Team Providers Care Truck Bench Mechanic Name Role Phone James Flores MD Primary Care Provide r Encounter Details Date Type Department Care Team ([facility] st Contact Info) Description 02/21/2022 Abstract [facility] MEDICINE [address] [place] [address] James Flores MD [address] [place] [address] Social History Tobacco Use Types Packs/Day Years [...] Description 09/03/2024 11:15 AM EDT Office Visit [facility] [address] [place] [address] James Flores MD [address] [place] [address] documented as of this encounter Procedures Procedure Name Priority Date/Time Associated Diagnosis Comments PAP/HPV Routine 01/17/2022 MAMMOGRAPHY Routine 01/29/2021 documented in this encounter Results * Pap Smear (01/17/2022) Pap smear NIL HPV mRNA E6/E7 not detected Comment:Opal NOONAN us Historical Provider HEALTH MAINTENANCE Final Result * Mammography (01/29/2021) Mammogram BI-RADS 1 Anatomical Region Laterality Modality Other Historical Provider HEALTH MAINTENANCE Final Result documented in this encounter Visit Diagnoses Not on filedocumented in this encounter Care Teams Truck Bench Mechanic Relationship Specialty Start Date End Date James Flores MD [address] [place] [address] PCP - General Internal Medicine 02/04/14 documented as of this encounter
--- OUTSIDE RECORDS SUMMARY | 2024-08-01 11:19 | XMS_ITS | Encounter Summary ---
Author Organization [facility] Address [address] [place] [address] Phone Care Team Providers Care Nutrition Program Instructor Name Role Phone James Grant MD Primary Care Provider Unav ailable Reason for Visit * Reason Comments Med Refill Encounter Details Date Type Department Care Team (Late st Contact Info) Description 12/14/2022 Refill [facility] [address] [place] [address] Osmany Leung MD Social History [...] on filedocumented in this encounter Care Teams Nutrition Program Instructor Relationship Specialty Start Date End Date James Grant MD PCP - General 03/23/20 documented as of this encounter
--- OUTSIDE RECORDS SUMMARY | 2024-08-01 11:19 | XMS_ITS | Encounter Summary ---
Author Organization [employer] Address [address] [facility] 7t [place] [address] Care Team Providers Care Core Sucker Name Role Phone James Flores MD Primary Care Provide r Encounter Details Date Type Department Care Team (Late Contact Info) Description 04/13/2022 Orders Only [facility] MEDICINE [address] [place] [address] [phone] April Olsen LPN Social History Tobacco Use [...] Description 09/03/2024 11:15 AM EDT Office Visit [facility] MED[facility] 230 [place], [place] [phone] James Flores MD 230 [place], [place] [phone] documented as of this encounter Visit Diagnoses Not on filedocumented in this encounter Care Teams Core Sucker Relationship Specialty Start Date End Date James Flores MD [address] [place] [address] PCP - General Internal Medicine 02/04/14 documented as of this encounter
--- OUTSIDE RECORDS SUMMARY | 2024-08-01 11:19 | XMS_ITS ---
Author Name Mr. Arlen Márquez Address [address] [place] [address] Phone [phone] [facility] Care Team Providers Care Supervisor Shipping Room Name Role Phone Micah Judge Unavailable [phone] Reason for Referral Not Available Allergies, adverse [...] 2021-11-04 No Data Available [employer] [employer] [id number] Miscellaneous TEST BLOOD SUGAR THREE OR FOUR [...] of Service Diagnosis/Co mplaint No Data Available [facility], ([place]) 07/12/2022 Type 2 diabetes mellitus wit h diabetic chronic kidney diseaseChronic kidney disease, stage 3bLong term (current) use of insulinMorbid (severe) obesity due to excess caloriesBody mass index (BMI) 40.0-44.9, adultOther specified health statusConstipation, unspecifiedProblems related to health literacyPrsnl hx of TIA (TIA), and cereb infrc w/o resid deficits No Data Available [facility], [facility]) 07/12/2022 No Data Available [facility], [facility]) 07/12/2022 No Data Available [facility], [facility]) 07/12/2022 No Data Available [facility], [facility]) 07/12/2022 No Data Available [facility] 07/12/2022 No Data Available [facility] 07/22/2022 Morbid (severe) obesity due to excess caloriesBody mass index (BMI) 40.0-44.9, adultType 2 diabetes mellitus with diabetic chronic kidney diseaseChronic kidney disease, stage 3bPrsnl hx of TIA (TIA), and cereb infrc w/o resid deficitsOther specified health status No Data Available [facility], [place] 07/22/2022 Vital Signs Date of Collection Vitals 2022-07-12 11:38:39 Height - 147.32 cmWe ight - 87.09 kgBody Mass Index (BMI) - 40.13 kg/m2 Social History Sex Female History of Procedures Procedures Service Procedure code Service date Servicing provider Phone# No Data Available [id number] 2022-07-12 No Data Available No Data Available [...] le No Data Available No Data Available [id number] 2022-07-22 No Data Available No Data Available [...] modifier 95)Continue to see PCP. Follow-up with [facility] as needed for any acute or [...]
--- OUTSIDE RECORDS SUMMARY | 2024-08-01 11:19 | XMS_ITS | Encounter Summary ---
Author Organization [employer] Address [address] [place] [address] Care Team Providers Care Car Checker Name Role Phone James Flores MD Primary Care Provide r Reason for Visit * Reason Onset Date Comments Pre op 01/11/2024 Encounter Details Date Type Department Care Team (Late st Contact Info) Description 01/11/2024 Telephone [facility] [address] [place] [address] James Flores MD [address] [place], [place] [id number] Pre op Social History Tobacco Use Types [...] [facility] Surgeon's office number: [phone] Surgeon's office fax number: [phone] Contact name (person you spoke with): Marcelo Last office note from surgeon requested: No Pt scheduled for Pre op on 02/07/24 with Pro documented in this encounter Plan of Treatment Upcoming Encounters Date Type Department Care Team (Late st Contact Info) Description 09/03/2024 11:15 AM EDT Office Visit [facility] [address] [place] [address] James Flores MD [address] [place] [address] documented as of this encounter Visit Diagnoses Not on filedocumented in this encounter Care Teams Car Checker Relationship Specialty Start Date End Date James Flores MD [address] [place] [id number] PCP - General Internal Medicine 02/04/14 documented as of this encounter
--- OUTSIDE RECORDS SUMMARY | 2024-08-01 11:19 | XMS_ITS | Clinical Summary ---
Author Organization [employer] Address [address] [facility] [address] [place] [address] Care Team Providers Care Transcription Specialist Name Role Phone James Flores MD Primary Care Provide r Allergies Active Allergy Reactions Criticality Noted Date Comments Amoxicillin 05/10/2012 Chlorothiazide 05/10/2012 Ciprofloxacin 05/10/2012 Codeine 05/10/2012 Diphenhydramine 05/10/2012 Fosinopril Other reaction(s): elevated potassium Morphine Palpitations Low 04/12/2013 Nitrofurantoin 05/10/2012 Oxycodone 04/12/2013 Oxycodone-Acetaminophen 02/07/2024 Sulfa Antibiotics 05/10/2012 Vancomycin 05/10/2012 [facility]ations [facility] Active Ozempic, 0.25 or 0.5 MG/DOSE, [...] the morning. 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 (FreeStyle [place] 3 [place]) device USE DIRECTED Active bisacodyl (Dulcolax) 10 [...] complication, with long-term current use of insulin ([facility]) INJECT 35 UNITS SUBCUTANEOUSLY ONCE DAILY 15 mL 2 024 Active nystatin (Mycostatin) 174166 UNIT/GM powderIndication s:Tinea corporis Apply topically 2 [...] complication, with long-term current use of insulin ([facility]) USE DIRECTED FOUR TIMES DAILY 100 each 6 025 Active HumaLOG KWIKPEN 100 UNIT/ML injectionIndicat ions:Type 2 diabetes mellitus without complication, with long-term current use of insulin ([facility]) INJECT 6 TO 16 UNITS SUBCUTANEOUSLY [...] complication, with long-term current use of insulin ([facility]) USE DIRECTED FOUR TIMES DAILY 100 each 6 024 2024 Discontinued HumaLOG KWIKPEN 100 UNIT/ML injectionIndicat ions:Type 2 diabetes mellitus without complication, with long-term current use of insulin ([facility]) INJECT 6 TO 16 UNITS SUBCUTANEOUSLY [...] to 25 doses. 50 tablet 025 2024 Discontinued(Elvie torres (will not trigger notification to Pharmacy)) predniSONE [...] to far out. Pt did see an Chief Clinical Dietitian that did not see any abnormalitites and [...] acute injury to the right knee. 2. Ugiy-qi-oupvtnqj lateral compartment degenerative changes. Left: IMPRESSION: 1. [...] evaluation Last colonoscopy 07/2022 showed tubular adenomas [facility] care 06/21/2022 Assessment & Plan (03/21/2024 9:20 AM EST): Routine physical exam today: within normal limits Mammogram: NL : 02/22/2023 Pap Smear: 06/27/2023: Normal In 11/24/2016 ASCUS with positive HPV. Pt underwent Colpo with biopsies & ECC per [employer] notes from 04/2017 Colonoscopy: 07/2022 Tubular adenoma repeat 3 years Vaccines: Flu shot: tdap: 05/31/2013 Dexa scan:. 04/28/2015 showed osteopenia Assessment & Plan (01/30/2024 11:02 AM EST): Routine physical exam today: within normal limits Mammogram: NL : 02/22/2023 Pap Smear: 06/27/2023: Normal In 11/24/2016 ASCUS with positive HPV. Pt underwent Colpo with biopsies & ECC per [employer] notes from 04/2017 Colonoscopy: 07/2022 Tubular adenoma repeat 3-5 years Vaccines: Flu shot: tdap: 05/31/2013 Dexa scan:. 04/28/2015 showed osteopenia Assessment & Plan (01/19/2023 1:43 PM EST): Mammogram: NL : 01/29/2021 Pap Smear: 11/24/2016 ASCUS with positive HPV. Pt underwent Colpo with biopsies & ECC per [employer] notes from 04/2017 she was supposed to have a repeat with co test 04/2018 and if both neg then would f/u in 3 years records requested Colonoscopy: 07/2022 Tubular adenoma repeat 3-5 years Vaccines: Flu shot: tdap: 05/31/2013 Dexa scan:. 04/28/2015 showed osteopenia History of CVA (cerebrovascular accident) 2021 Assessment & Plan (05/30/2024 9:07 AM EDT): Hx of this Pt was admitted to [facility] from :12/31-12/22/2020 Patient presented to ED [...] Hx of this Pt was admitted to [facility] from :12/31-12/22/2020 Patient presented to ED [...] 11:27 AM EST): Seen at [facility] 01/28/2023 with an asthma exacerbation Doing better [...] disease and negative nuclear stress test at [facility] . Due to her Hx of CVA [...] disease and negative nuclear stress test at [facility] . Due to her recent CVA [...] disease and negative nuclear stress test at [facility] . Due to her recent CVA [...] neg covid, neg flu. Nothing to suggest broolkyn infection Prescribed conservative measures and chloraseptic lozenges for symptomatic relief, asked to come back if symptoms do not improve or worsen Asthma exacerbation 07/08/2020 05/31/19 25 Encounters Date Type Department Care Team Description 07/31/2024 Orders Only GENERIC EXTERNAL DATA DEPARTMENT Provider, Generic External Data 07/30/2024 Telephone [facility] [address] [place] [phone] James Flores MD Durable Medical Equipment 07/28/2024 Orders Only [facility] External Provider, [facility] 07/25/2024 Telephone [facility] [address] [place] [address] James Flores MD Durable Medical Equipment 07/25/2024 Orders Only GENERIC EXTERNAL DATA DEPARTMENT Provider, Generic External Data 07/25/[address] [address] James Flores MD Chronic anemia 07/24/2024 2:40 PM EDT Office Visit [facility] [address] [place] [phone] Lidya Pinedo MD Primary osteoarthritis of left knee (Primary Dx) 07/23/2024 11:00 AM EDT Telemedicine [address] [address] James Flores MD Goiter (Primary Dx); Temporal arteritis ([facility]); Acute pain of both knees 07/23/2024 Travel 07/23/2024 Refill [facility] [address] [place] [phone] James Flores MD Type 2 diabetes mellitus without complication, with long-term current use of insulin (CMS/HCC) 07/22/2024 Telephone [facility] [address] [place] [address] Ludwin Sylvester MD 07/22/2024 Telephone [facility] [address] [place] [address] [phone] James Flores MD chartprep 07/22/2024 Telephone [facility] [address] [place] [address] [phone] Ludwin Sylvester MD Appointment Request 07/22/2024 Orders Only [facility] [address] [place] [phone] Ludwin Sylvester MD 07/20/2024 Refill [facility] [address] [place] [address] Ruchi Nolan MD Type 2 diabetes mellitus without complication, with long-term current use of insulin ([facility]) 07/15/2024 Telephone [facility] [address] [place] [address] 269[address] James Flores MD Results 07/11/2024 Telephone [facility] [address] [place] [phone] Ludwin Sylvester MD 07/09/2024 Telephone [facility] [address] [place] [address] 228[address] Ludwin Sylvester MD 07/04/[address] [address] James Flores MD Lab order question 07/03/2024 Telephone [facility] [address] [place] [phone] Ludwin Sylvester MD 07/02/2024 Telephone [facility] [address] [place] [address] Ludwin Sylvester MD 07/02/2024 Orders Only [facility] [address] [place] [address] Ludwin Sylvester MD 06/28/2024 Orders Only [facility] [address] [place] [phone] Ludwin Sylvester MD 06/26/2024 10:00 AM EDT Office Visit [facility] [address] [place] [address]188 Ludwin Sylvester MD Temporal headache (Primary Dx); Hypertension, unspecified type 06/22/2024 Refill [facility] [address] [place] [address] James Flores MD Seasonal allergies 06/20/2024 Telephone [facility] [address] [place] [address] 26[address] Ludwin Sylvester MD 06/20/2024 Telephone [facility] [address] [place] [address] [phone] Sarah Mark RN Plan of care 06/20/2024 Orders Only [facility] [address] [address] Ludwin Sylvester MD Giant cell arteritis ([facility]) (Primary Dx); Anxiety 06/20/2024 Telephone [facility] [address] [place] [address] [phone] Sarah Mark RN Plan of care 06/19/2024 10:20 AM EDT Office Visit [facility] [address] [address] Ludwin Slyvester MD Neck pain (Primary Dx); Acute intractable headache, unspecified headache type; Acute pain of both knees; Hypertension, unspecified type 06/19/2024 Orders Only GENERIC EXTERNAL DATA DEPARTMENT Provider, Generic External Data 06/12/[address] [address] Diana Coates, LISA Results 06/12/2024 Orders Only [address] [address] James Flores MD Thyroid nodule (Primary Dx) 06/08/2024 Orders Only GENERIC EXTERNAL DATA DEPARTMENT Provider, Generic External Data 05/30/2024 9:15 AM EDT Office Visit [address] [address] James Flores MD Type 2 diabetes mellitus with stage 3a chronic kidney disease, with long-term current use of insulin ([facility]) (Primary Dx); Primary hypertension; Mixed hyperlipidemia; Coronary artery disease involving [place] coronary artery of [place] heart without angina pectoris; Severe obesity ([facility]/HCC); Dietary counseling; Exercise counseling; History of CVA (cerebrovascular accident); Age-related osteoporosis without current pathological fracture; Acute pain of both knees; Encounter for immunization 05/30/2024 Patient Outreach [address] [address] James Flores MD Care Coordination (CHW outreach for SDOH housing search-referral completed ) 05/30/2024 Travel 05/23/2024 Refill [facility] [address] [place] [address] James Flores MD Chronic anemia 05/22/2024 Telephone [facility] [address] [place] [address] James Flores MD Chart Prep 05/20/2024 Refill [facility] [address] [place] [address] James Flores MD 05/10/2024 Refill [facility] [address] [place] [address] Coco Montiel, MELVIN Mild intermittent asthma without complication from Last 3 Months Immunizations Immunization Administration [...] Office Visit [facility] [address] [place], [place] [phone] James Flores MD [address] [place] [address] Health Maintenance Due Date Last Done Comments [...] WHOLE BLOOD Routine 07/31/2024 10:[address] CERVICAL SPINE WO CONTRAST Routine 07/28/2024 [...] disease, with long-term current use of insulin ([facility]) XR DEXA APPENDICULAR SKELETON Routine 05/15/2024 8:15 AM EST POCT GLYCATED HEMOGLOBIN, TOTAL Routine [...] ZZZ HISTORICAL HPV E6/E7 RFLX DANIAL 16 Routine 01/17/2022 4:22 PM EST from Last 3 Months or Most Recently Relevant to Health Maintenance Results * Glucose, Whole Blood (07/31/2024 10:35 AM EDT) Glucose, Whole Blood 86 60 - 115 mg/dL [facility] Comment:METER #: [id number] Testing performed in the Endocrinology Department [address] , [address], [facility]. 07/31/2024 10:3 5 AM EDT 07/31/2024 10:39 AM EDT us Generic External Data Provider LAB BLOOD ORDERAB LES Final Result [facility] [address] [place] [address] [phone] * CT Cervical Spine w/o Contrast (07/28/2024 1:27 PM EDT) Anatomical Region Laterality Modality Spine, C-spine Computed Tomogra phy 07/28/2024 1:27 PM EDT Narrative 07/28/2024 1:29 PM EDT ? [facility] ?[address] ?[place] [address] ? CT Scan Report ? Signed ? Patient: Cappa,Jayne ?MR#: [id number] ? : 1955 ?Acct:[id number] ? Age/Sex: 69 / F ?ADM Date: 07/28/24 ? Loc: HO.ED ? Attending Dr: ? Ordering Physician: Ligia Marie ?? Date of Service: 07/28/24 ?? Procedure(s): CT cervical spine wo IV con ?? Accession Number(s): [id number] ? cc: James Trimble MD; Ligia Marie ? Report Number: ?? [id number]: Total DLP = 1119.00 mGy-cm ? CLINICAL [...] DD/ 1327 ? TD/TT: 07/28/24 1327 ? Condenser Winder: ? Procedure Note Viridiana Gilbert - 07/29/[address] [address] [address] Scan Report Signed Patient: Jayne LaneMR#: [id number] : 6Acct:[id number] Age/Sex: 69 / FADM Date: 07/28/24 Loc: HO.ED Attending Dr: Ordering Physician: Ligia Marie Date of Service: 07/28/24 Procedure(s): CT cervical spine wo IV con Accession Number(s): [id number] cc: James Trimble MD; Ligia Marie Report Number: [id number]: Total DLP = 1119.00 mGy-cm CLINICAL HISTORY: [...] 07/28/24 1328 DD/ 1327 TD/TT: 07/28/24 1327 Condenser Winder: [facility] External Provider IMG CT PROCEDURES Edited Result - Final * XR Shoulder 2+ Views Left (07/28/2024 1:20 PM EDT) Anatomical Region Laterality Modality Upper Extremities, Shoulder Left Radi ographic Imaging 07/28/2024 1:20 PM EDT Narrative 07/28/2024 1:21 PM EDT ? [facility] ?[address] ?[place] [address] ?XRay Report ? Signed ? Patient: Cappa,Jayne ?MR#: [id number] ? : 1955 ?Acct:[id number] ? Age/Sex: 69 / F ?ADM Date: 07/28/24 ? Loc: HO.ED ? Attending Dr: ? Ordering Physician: Ligia Marie ?? Date of Service: 07/28/24 ?? Procedure(s): XR shoulder LT min 2V ?? Accession Number(s): [id number] ? cc: James Trimble MD; Ligia Marie [...] DD/ 1320 ? TD/TT: 07/28/24 1320 ? Condenser Winder: ? Procedure Note Donkhalifter, Image - 07/29/[address] [address] XRay Report Signed Patient: Jayne LaneMR#: [id number] : 1955cct:[id number] Age/Sex: 69 / FADM Date: 07/28/24 Loc: HO.ED Attending Dr: Ordering Physician: Ligia Marie Date of Service: 07/28/24 Procedure(s): XR shoulder LT min 2V Accession Number(s): [id number] cc: James Trimble MD; Ligia Marie CLINICAL [...] 07/28/24 1321 DD/ 1320 TD/TT: 07/28/24 1320 Condenser Winder: us [facility] External Provider IMG XR PROCEDURES Edited Result - Final * CT Head w/o Contrast (07/28/2024 1:19 PM EDT) Anatomical Region Laterality Modality Head, Neck Computed Tomogra phy 07/28/2024 1:19 PM EDT Narrative 07/28/2024 1:20 PM EDT ? [facility] ?[address] ?[place], [place] [address] ? CT Scan Report ? Signed ? Patient: Cappa,Jayne ?MR#: [id number] ? : 1955 ?Acct:[id number] ? Age/Sex: 69 / F ?ADM Date: 07/28/24 ? Loc: HO.ED ? Attending Dr: ? Ordering Physician: Ligia Marie ?? Date of Service: 07/28/24 ?? Procedure(s): CT head/brain wo IV con ?? Accession Number(s): [id number] ? cc: James Trimble MD; Ligia Marie ? Report Number: ?? [id number]: Total DLP = ?0.00 mGy-cm ? CLINICAL [...] DD/ 1319 ? TD/TT: 07/28/24 1319 ? Condenser Winder: ? Procedure Note Ofelia Image - 07/29/[address] [address] [address] Scan Report Signed Patient: Jayne LaneMR#: [id number] : 6Acct:[id number] Age/Sex: 69 / FADM Date: 07/28/24 Loc: HO.ED Attending Dr: Ordering Physician: Ligia Marie Date of Service: 07/28/24 Procedure(s): CT head/brain wo IV con Accession Number(s): [id number] cc: James Trimble MD; Ligia Marie Report Number: [id number]: Total DLP = 0.00 mGy-cm CLINICAL HISTORY: [...] 07/28/24 1320 DD/ 1319 TD/TT: 07/28/24 1319 Condenser Winder: [facility] External Provider IMG CT PROCEDURES Edited Result - Final * XR Toes 2+ Left (07/28/2024 1:06 PM EDT) Anatomical Region Laterality Modality Lower Extremities, Toes Left Radiogra phic Imaging 07/28/2024 1:06 PM EDT Narrative 07/28/2024 1:07 PM EDT ? [facility] ?[address] ?[place] [address] ?XRay Report ? Signed ? Patient: Cappa,Jayne ?MR#: [id number] ? : 1955 ?Acct:[id number] ? Age/Sex: 69 / F ?ADM Date: 07/28/24 ? Loc: HO.ED ? Attending Dr: ? Ordering Physician: Ligia Marie ?? Date of Service: 07/28/24 ?? Procedure(s): XR toe LT min 2V ?? Accession Number(s): [id number] ? cc: James Trimble MD; Ligia Marie ? CLINICAL HISTORY: fall, L great toe pain ? 4 view [id number] toe ? Comparison: None ? Findings: ?? [...] DD/ 1306 ? TD/TT: 07/28/24 1306 ? Condenser Winder: ? Procedure Note Viridiana Gilbert - 07/29/2024 [place] [address] XRay Report Signed Patient: Jayne LaneMR#: [id number] : 6Acct:[id number] Age/Sex: 69 / FADM Date: 07/28/24 Loc: HO.ED Attending Dr: Ordering Physician: Ligia Marie Date of Service: 07/28/24 Procedure(s): XR toe LT min 2V Accession Number(s): [id number] cc: James Trimble MD; Ligia Marie CLINICAL HISTORY: fall, L great toe pain 4 view aids1bg toe Comparison: None Findings: Bones intact. No [...] 07/28/24 1307 DD/ 1306 TD/TT: 07/28/24 1306 Condenser Winder: [facility] External Provider IMG XR PROCEDURES Edited Result - Final * XR Knee 4+ Views Right (07/28/2024 1:04 PM EDT) Only the most recent of3 resultswithin the time period is included. Anatomical Region Laterality Modality Lower Extremities, Knee Right Radiogra phic Imaging 07/28/2024 1:04 PM EDT Narrative 07/28/2024 1:07 PM EDT ? [facility] ?[address] ?[place] [address] ?XRay Report ? Signed ? Patient: Cappa,Jayne ?MR#: [id number] ? : 1955 ?Acct:[id number] ? Age/Sex: 69 / F ?ADM Date: 07/28/24 ? Loc: HO.ED ? Attending Dr: ? Ordering Physician: Ligia Marie ?? Date of Service: 07/28/24 ?? Procedure(s): XR knee RT 4V ?? Accession Number(s): [id number] ? cc: James Trimble MD; Ligia Marie ? CLINICAL HISTORY: swelling ?gout v arthritis ? 4 view right knee ? Comparison: CR/SR - XR KNEE RT 3 - 07/24/24 15:23 EDT ? Findings: ?? [...] DD/ 1304 ? TD/TT: 07/28/24 1304 ? Condenser Winder: ? Procedure Note Donotuseinterpreter, Image - 07/29/[address] [address] XRay Report Signed Patient: Jayne LaneMR#: [id number] : 1955cct:[id number] Age/Sex: 69 / FADM Date: 07/28/24 Loc: HO.ED Attending Dr: Ordering Physician: Ligia Marie Date of Service: 07/28/24 Procedure(s): XR knee RT 4V Accession Number(s): [id number] cc: James Trimble MD; Ligia Marie CLINICAL [...] 07/28/24 1306 DD/ 1304 TD/TT: 07/28/24 1304 Condenser Winder: [facility] External Provider IMG XR PROCEDURES Edited Result - Final * SARS-CoV-2 RNA, Influenza A/B, and RSV RNA, Ql NAAT (07/25/2024 11:47 AM EDT) Only the most recent of2 resultswithin the time period is included. [facility] Influenza A PCR NEGATIVE Negative [facility] Influenza B PCR NEGATIVE Negative [facility] Resp Syncy Virus RNA Qual PCR NEGATIVE Negative [facility] SARS COV2 PCR NEGATIVE Negative [facility] Comment:All test results mus t [...] use by authorized laboratories.Testing performed on the [employer] GeneXpert utilizingreal-time RT-PCR.All SARS CoV2 and positive influenza A/B results arereported to [facility]. 07/25/2024 11:4 7 AM EDT 07/25/2024 11:58 AM EDT us Generic External Data Provider LAB MICROBIOLOGY - GENERAL ORDERABLES Final Result [facility] [address] [place] [phone] * (ABNORMAL) CBC auto differential (07/25/2024 9:31 AM EDT) Only the most recent of2 resultswithin the time period is included. [facility] White Blood Count 6.4 4.8 - 10.8 X10*3/uL [facility] Red Blood Count 3.43(L) 4.20 - 5.50 X10*6/uL [facility] Hemoglobin 10.7(L) 12.0 - 16.0 g/dl [facility] Hematocrit 32.8(L) 37.0 - 47.0 % [facility] Mean Corpuscular Volume 95.6 80.0 - 98.0 fL [facility] Mean Corpuscular Hemoglobin 31.2 27.0 - 33.0 pg [facility] Mean Corpuscular HGB Conc 32.6 31.0 - 35.0 g/dl [facility] Red Cell Distribution Width 13.4 11.0 - 16.0 % [facility] Platelet Count 198 160 - 400 X10*3/uL [facility] Mean Platelet Volume 10.3 9.4 - 12.3 fL [facility] Neutrophils Percent Auto 67.3 45 - 73 % [facility] Imm Gran Pct Auto 0.5(H) 0.0 - 0.4 % [facility] Lymphocytes Percent Auto 25.0 20 - 40 % [facility] Monocytes Percent Auto 5.8 2 - 11 % [facility] Eosinophils Percent Auto 1.1 0 - 4 % [facility] Basophils Percent Auto 0.3 0 - 2 % [facility] NRBC Pct Auto 0.0 0.0 - 0.2 /100WBC [facility] Neutrophils Absolute Auto 4.3 2.0 - 8.3 x10*3/uL [facility] Imm Gran Abs Auto 0.03 0.00 - 0.03 X10*3/uL [facility] Lymphocytes Absolute Auto 1.6 1.2 - 4.9 X10*3/uL [facility] Monocytes Absolute Auto 0.4 0.1 - 1.2 X10*3/uL [facility] Eosinophils Absolute Auto 0.1 0.0 - 0.4 X10*3/uL [facility] Basophils Absolute Auto 0.0 0.0 - 0.2 X10*3/uL [facility] NRBC Abs Auto 0.000 0.0 - 0.012 X10*3/uL [facility] 07/25/2024 9:31 AM EDT 07/25/2024 9:36 AM EDT us Generic External Data Provider LAB BLOOD ORDERAB LES Final Result [facility] [address] [place] [address] [phone] * (ABNORMAL) Comprehensive Metabolic Panel (07/25/2024 9:30 AM EDT) Sodium 144 135 - 145 mmol/L [facility] Potassium 4.4 3.3 - 5.1 mmol/L [facility] Chloride 111(H) 96 - 108 mmol/L [facility] Carbon Dioxide 26 22 - 29 mmol/L [facility] Anion Gap 11(L) 12 - 20 [facility] Urea Nitrogen (BUN) 34(H) 9 - 16 mg/dL [facility] Creatinine, Serum 1.47(H) 0.5 - 1.4 mg/dL [facility] Creatinine Clr Calc Pharmacy 35.4 [facility] Comment:Provided height and weight: 157.48 cm,80 kg.eGFR (calculated from the MDRD study equation) and eCrCl(calculated from the Cockcroft-Gault equation) are based ondifferent parameters and may not yield comparable results.If eCrCl result is absurd, please check patient'sheight/weight. Estimated Glomerular Filt Rate 35 [facility] Comment:Chronic Kidney Disea se: Estimated GFR < 60 mL/min/1.37b5Hsmeps Kidney Disease: Estimated GFR < 15 mL/min/1.73m2 Glucose 144(H) 60 - 115 mg/dL [facility] Calcium 9.8 8.4 - 10.2 mg/dL [facility] Bilirubin, Total 0.2 0.0 - 1.0 mg/dL [facility] Aspartate Amino Transferase 26 5 - 31 U/L [facility] Alanine Aminotransferase 15 0 - 31 U/L [facility] Total Protein 6.5 6.5 - 8.0 g/dL [facility] Albumin Level 3.8 3.5 - 5.0 g/dL [facility] Alkaline Phosphatase 56 39 - 117 U/L [facility] 07/25/2024 9:30 AM EDT 07/25/2024 9:36 AM EDT us Generic External Data Provider LAB BLOOD ORDERAB LES Final Result [facility] [address] [place] [address] [phone] * XR Femur 2+ Views Right (07/25/2024 8:56 AM EDT) Anatomical Region Laterality Modality Lower Extremities, Femur Right Radiogr aphic Imaging 07/25/2024 8:56 AM EDT Narrative 07/25/2024 9:57 AM EDT ? [facility] ?[address] ?[place] [address] ?XRay Report ? Signed ? Patient: Cappa,Jayne ?MR#: [id number] ? : 1955 ?Acct:[id number] ? Age/Sex: 69 / F ?ADM Date: 07/25/24 ? Loc: HO.ED ? Attending Dr: ? Ordering Physician: Shreyas Arrieta MD ?? Date of Service: 07/25/24 ?? Procedure(s): XR femur RT 2V ?? Accession Number(s): [id number] ? cc: Shreyas Arrieta MD; James Trimble [...] DD/ 0856 ? TD/TT: 07/25/24 0921 ? Condenser Winder: ? Procedure Note Viridiana Gilbert - 07/29/[address] [address] XRay Report Signed Patient: Jayne LaneMR#: [id number] : 6Acct:[id number] Age/Sex: 69 / FADM Date: 07/25/24 Loc: HO.ED Attending Dr: Ordering Physician: Shreyas Arrieta MD Date of Service: 07/25/24 Procedure(s): XR femur RT 2V Accession Number(s): [id number] cc: Shreyas Arrieta MD; James Trimble MD [...] 07/25/24 0954 DD/ 0856 TD/TT: 07/25/24 0921 Condenser Winder: [facility] [facility] External Provider IMG XR PROCEDURES Edited Result - Final * XR Knee 3 Views Right (07/25/2024 8:55 AM EDT) Only the most recent of2 resultswithin the time period is included. Anatomical Region Laterality Modality Lower Extremities, Knee Right Radiogra phic Imaging 07/25/2024 8:55 AM EDT Narrative 07/25/2024 9:49 AM EDT ? [facility] ?[address] ?[place] [address] ?XRay Report ? Signed ? Patient: Cappa,Jayne ?MR#: [id number] ? : 1955 ?Acct:[id number] ? Age/Sex: 69 / F ?ADM Date: 05/15/25 ? Loc: HO.ED ? Attending Dr: ? Ordering Physician: Shreyas Arrieta MD ?? Date of Service: 07/25/24 ?? Procedure(s): XR knee RT 3V ?? Accession Number(s): [id number] ? cc: Shreyas Arrieta MD; James Trimble [...] DD/ 0855 ? TD/TT: 07/25/24 0921 ? Condenser Winder: ? Procedure Note Viridiana Gilbert - 07/29/[address] [address] XRay Report Signed Patient: Jayne LaneMR#: [id number] : 6Acct:[id number] Age/Sex: 69 / FADM Date: 07/25/24 Loc: HO.ED Attending Dr: Ordering Physician: Shreyas Arrieta MD Date of Service: 07/25/24 Procedure(s): XR knee RT 3V Accession Number(s): [id number] cc: Shreyas Arrieta MD; James Trimble MD [...] 07/25/24 0946 DD/ 0855 TD/TT: 07/25/24 0921 Condenser Winder: [facility] External Provider IMG XR PROCEDURES Edited Result - Final * US Thyroid (07/11/2024 12:58 PM EDT) Anatomical Region Laterality Modality Head, Neck Ultrasound 07/11/2024 12:5 8 PM EDT Narrative 07/12/2024 7:13 AM EDT ? [facility] ?[address] ?[place] [address] ? Ultrasound Report ? Signed ? Patient: Cappa,Jayne ?MR#: [id number] ? : 1955 ?Acct:[id number] ? Age/Sex: 69 / F ?ADM Date: 05/01/25 ? Loc: HO.US ? Attending Dr: James Trimble MD ? Ordering Physician: James Trimble MD ?? Date of Service: 07/11/24 ?? Procedure(s): US thyroid ?? Accession Number(s): [id number] ? cc: James Trimble MD ? EXAMINATION: [...] DD/ 1258 ? TD/TT: 07/11/24 1302 ? Condenser Winder: ? Procedure Note Donotuseinterpreter, Image - 07/12/[address] [address] Ultrasound Report Signed Patient: Jayne LaneMR#: [id number] : 1955cct:[id number] Age/Sex: 69 / FADM Date: 07/11/24 Loc: HO.US Attending Dr: James rTimble MD Ordering Physician: James Trimble MD Date of Service: 07/11/24 Procedure(s): US thyroid Accession Number(s): [id number] cc: James Trimble MD EXAMINATION: US THYROID [...] 07/12/24 0710 DD/ 1258 TD/TT: 07/11/24 1302 Condenser Winder: us James Ashraf MD IMG US PROCEDURES Fin al Result * US DUPLEX ARTERIAL VENOUS COMP (06/29/2024 9:18 AM EDT) Anatomical Region Laterality Modality Abdomen Ultrasound 06/29/2024 9:18 AM EDT Narrative 06/29/2024 9:19 AM EDT ? [facility] ?[address] ?[place] [address] ? Ultrasound Report ? Signed ? Patient: Cappa,Jayne ?MR#: [id number] ? : 1955 ?Acct:[id number] ? Age/Sex: 69 / F ?ADM Date: 06/28/24 ? Loc: HO.US ? Attending Dr: Ludwin Sylvester MD ? Ordering Physician: LUDWIN SYLVESTER MD ?? Date of Service: 06/28/24 ?? Procedure(s): US duplex arterial venous comp ?? Accession Number(s): [id number] ? cc: LUDWIN SYLVESTER MD; James Trimble [...] ? DD/ 7 ? TD/TT: 06/29/[address] ? Condenser Winder: ? Procedure Note Donkhalifter, Image - 06/29/[address] [address] Ultrasound Report Signed Patient: Olivia Lane#: [id number] : 6Acct:[id number] Age/Sex: 69 / FADM Date: 06/28/24 Loc: HO.US Attending Dr: Ludwin Sylvester MD Ordering Physician: LUDWIN SYLVESTER MD Date of Service: 06/28/24 Procedure(s): US duplex arterial venous comp Accession Number(s): [id number] cc: LUDWIN SYLVESTER MD; James Trimble MD [...] in OV> 06/29/24918 DD/ 7 TD/TT: 06/29/24917 Condenser Winder: us Ludwin Sylvester MD IMG US PROCEDURES Final Result * Referral to Ophthalmology (06/20/2024) us Ludwin Sylvester MD OUTPATIENT REFERRAL ORDERABLES F inal Result * Lyme Disease Ab with Reflex to Blot (IgG, IgM) (06/19/2024 10:56 AM EDT) Pathologist [facility] Lyme Antibody Screen <0.90 index [facility] Comment:Index Interpretation ----- < 0.90 [...] when erythemamigrans is apparent.THIS TEST WAS PERFORMED AT:[email or web address] [place] [phone] CHAND MD Lyme Blot [facility] 06/19/2024 10:5 6 AM EDT 06/19/2024 11:51 AM EDT us Ludwin Sylvester MD LAB BLOOD ORDERABLES Final Resul t [facility] [address] [place] [address] [phone] * RPR (Monitor) with Reflex to??Titer (06/19/2024 10:56 AM EDT) Pathologist [facility] RPR (Monitor) w/Refl Titer NON-REACTI VE NON-REACT DANNY [facility] Comment:THIS TEST WAS PERFOR MED AT:[email or web address] [place] [phone] CHAND MD Rapid Plasma Reagin Ab Titer TNP [facility] Blood Venous blood specimen / Unknown 06/19/2024 10:56 AM EDT 06/19/2024 11:40 AM EDT Ludwin Sylvester MD LAB BLOOD ORDERABLES Final Resul t Performing Organization Address [facility] Co de Phone Number [facility] [address] [place] [phone] * (ABNORMAL) Sed Rate by Modified Westergren (06/19/2024 10:56 AM EDT) Erythrocyte Sedimentation Rate 98(H) 0 - 20 MM/HR [facility] Comment:Patients with polycy themia and many hemoglobin abnormalitiesmay have depressed sed rates whereas patients with anemiamay have elevated sed rates. Blood Venous blood specimen / Unknown 06/19/2024 10:56 AM EDT 06/19/2024 11:40 AM EDT Ludwin Sylvester MD LAB BLOOD ORDERABLES Final Resul t Performing Organization Address [facility] Co de Phone Number [facility] [address] [place] [phone] * PTH, Intact Without Calcium (06/19/2024 10:56 AM EDT) Parathyroid Hormone, Intact 60.9 8.7 - 77.1 pg/mL [facility] 06/19/2024 10:5 6 AM EDT 06/19/2024 11:40 AM EDT Generic External Data Provider LAB BLOOD ORDERAB LES Final Result Performing Organization Address [facility] Co de Phone Number [facility] [address] [place] [phone] * Vitamin D, 25-Hydroxy, Total, Immunoassay (06/19/2024 10:26 AM EDT) Vitamin D 25-OH Total 41.0 >30 ng/mL [facility] Comment: Health Based Reference Values*< 20 ??ng/mL ??Ftewwkelr92-85 ng/mL ??Insufficient> 30 ??ng/mL ??Sufficient*Altagracia GOODWIN. N [...] ORDERAB LES Final Result Performing Organization Address [facility]/ZIP Co de Phone Number [facility] [address] [place] [phone] * (ABNORMAL) C-reactive Protein (06/19/2024 10:26 AM EDT) C Reactive Protein 2.44(H) < or = 0.50 mg/dL [facility] 06/19/2024 10:2 6 AM EDT 06/19/2024 11:49 AM EDT us Generic External Data Provider LAB BLOOD ORDERAB LES Final Result Performing Organization Address City/[facility]/ZIP Co de Phone Number [facility] [address] [place] [phone] * (ABNORMAL) Calcium (06/19/2024 10:26 AM EDT) Calcium 10.6(H) 8.4 - 10.2 mg/dL [facility] 06/19/2024 10:2 6 AM EDT 06/19/2024 11:49 AM EDT Generic External Data Provider LAB BLOOD ORDERAB LES Final Result Performing Organization Address [facility] de Phone Number [facility] [address] [place] [phone] [phone] * Albumin (06/19/2024 10:26 AM EDT) Albumin Level 4.1 3.5 - 5.0 g/dL [facility] 06/19/2024 10:2 6 AM EDT 06/19/2024 11:49 AM EDT Generic External Data Provider LAB BLOOD ORDERAB LES Final Result Performing Organization Address [facility] de Phone Number [facility] [address] [place] [phone] * CTA Head Neck w/ and w/o Contrast (06/08/2024 7:19 PM EDT) Anatomical Region Laterality Modality Head, Neck Computed Tomogra phy 06/08/2024 7:19 PM EDT Narrative 06/08/2024 7:20 PM EDT ? [facility] ?[address] ?[place] [address] ? CT Scan Report ? Signed ? Patient: Cappa,Jayne ?MR#: [id number] ? : 1955 ?Acct:[id number] ? Age/Sex: 69 / F ?ADM Date: 03/29/25 ? Loc: HO.ED ? Attending Dr: ? Ordering Physician: Ligia Marie ?? Date of Service: 06/08/24 ?? Procedure(s): CT angio head neck ?? Accession Number(s): [id number] ? cc: James Trimble MD; Ligia Marie ? Report Number: ?? [id number]: Total DLP = 1370.00 mGy-cm ? CLINICAL [...] ? DD/ 18 ? TD/TT: 06/08/241918 ? Condenser Winder: ? Procedure Note Ofelia, Image - 06/08/[address] [address] [address] Scan Report Signed Patient: Jayne LaneMR#: [id number] : 6Acct:[id number] Age/Sex: 69 / FADM Date: 06/08/24 Loc: HO.ED Attending Dr: Ordering Physician: Ligia Marie Date of Service: 06/08/24 Procedure(s): CT angio head neck Accession Number(s): [id number] cc: James Trimble MD; Ligia Marie Report Number: [id number]: Total DLP = 1370.00 mGy-cm CLINICAL HISTORY: [...] in OV> 06/08/241919 DD/ 18 TD/TT: 06/08/241918 Condenser Winder: [facility] External Provider IMG CT PROCEDURES Edited Result - Final * XR Knee 4+ Views Left (06/08/2024 6:29 PM EDT) Only the most recent of2 resultswithin the time period is included. Anatomical Region Laterality Modality Lower Extremities, Knee Left Radiogra phic Imaging 06/08/2024 6:29 PM EDT Narrative 06/08/2024 6:30 PM EDT ? [facility] ?[address] ?[place] [address] ?XRay Report ? Signed ? Patient: Cappa,Jayne ?MR#: [id number] ? : 1955 ?Acct:[id number] ? Age/Sex: 69 / F ?ADM Date: 06/08/24 ? Loc: HO.ED ? Attending Dr: ? Ordering Physician: Ligia Marie ?? Date of Service: 06/08/24 ?? Procedure(s): XR knee LT 4V ?? Accession Number(s): [id number] ? cc: James Trimble MD; Ligia Marie [...] MD in OV> ?06/08/24 1829 ? DD/ 1829 ? TD/TT: 06/08/24 1829 ? Condenser Winder: ? Procedure Note Ofelia, Viridiana - 06/08/2024 [place] [address] [facility] [place] [address] XRay Report Signed Patient: Jayne LaneMR#: [id number] : 6Acct:[id number] Age/Sex: 69 / FADM Date: 06/08/24 Loc: HO.ED Attending Dr: Ordering Physician: Ligia Marie Date of Service: 06/08/24 Procedure(s): XR knee LT 4V Accession Number(s): [id number] cc: James Trimble MD; Ligia Marie CLINICAL [...] in OV> 06/08/241828 DD/ 28 TD/TT: 06/08/241828 Condenser Winder: [facility] External Provider IMG XR PROCEDURES Edited Result - Final * (ABNORMAL) Basic Metabolic Panel (06/08/2024 4:18 PM EDT) Sodium 142 135 - 145 mmol/L [facility] Potassium 4.8 3.3 - 5.1 mmol/L [facility] Chloride 107 96 - 108 mmol/L [facility] Carbon Dioxide 28 22 - 29 mmol/L [facility] Anion Gap 12 12 - 20 [facility] Urea Nitrogen (BUN) 33(H) 9 - 16 mg/dL [facility] Creatinine, Serum 1.41(H) 0.5 - 1.4 mg/dL [facility] Creatinine Clr Calc Pharmacy 34.3 [facility] Comment:Provided height and weight: 149.86 cm,79.7 kg.eGFR (calculated from the MDRD study equation) and eCrCl(calculated from the Cockcroft-Gault equation) are based ondifferent parameters and may not yield comparable results.If eCrCl result is absurd, please check patient'sheight/weight. Estimated Glomerular Filt Rate 37 [facility] Comment:Chronic Kidney Disea se: Estimated GFR < 60 mL/min/1.58w2Gnyllf Kidney Disease: Estimated GFR < 15 mL/min/1.73m2 Glucose 227(H) 60 - 115 mg/dL [facility] Calcium 10.1 8.4 - 10.2 mg/dL [facility] 06/08/2024 4:18 PM EDT 06/08/2024 4:21 PM EDT us Generic External Data Provider LAB BLOOD ORDERAB LES Final Result Performing Organization Address City/State/[facility] Co de Phone Number [facility] [address] [place] [phone] * (ABNORMAL) POCT Glucose (05/30/2024 9:25 AM EDT) Pathologist [facility] Glucose Blood, POC 202(A) 60 - 200 mg/dL QC Media Lot # [id number] Lot# Expiration Date Blood Capillary blood specimen / Unknown 05/30/2024 9:25 AM EDT us James Ashraf MD POINT OF CARE TEST EN TER/EDIT ORDERABLES Final Result * XR DEXA APPENDICULAR SKELETON (05/15/2024 8:15 AM EST) Anatomical Region Laterality Modality Abdomen Radiographic Rena ging 05/15/2024 8:15 AM EST Narrative 05/17/2024 7:37 AM EST ? [facility] ? [address] ?[place] [address] ? Mammography Report ? Signed ? Patient: Cappa,Jayne ?MR#: [id number] ? : 1955 ?Acct:[id number] ? Age/Sex: 68 / F ?ADM Date: 05/15/24 ? Loc: HO.MAMMO ? Attending Dr: Lina Jason MD ? Ordering Physician: Lina Jason MD ?Results: ? Date of Service: 05/15/24 ?Follow Up: ? Procedure(s): XR DEXA appendicular skeleton ?? Accession Number(s): [id number] ? cc: James Trimble MD; Lina Jason MD ? EXAMINATION: ??DXA BONE DENSITY EXTREMITY ? HISTORY: ??Estrogen deficiency ? TECHNIQUE: Gone! Dual energy absorptiometry (DEXA) ?? of the [...] the [employer] ?? [place] [facility] Metabolic [facility] Disease, a World Health Organization (WHO) ?? Collaborating Center. ? Electronically signed by: ??Zev Mukherjee MD ??05/17/2024 07:34 AM EST ?? RP ? Dictated By: ?Zev Mukherjee MD ? Signed By: ?<Electronically signed by Zev Mukherjee MD in OV> ?05/17/24 0734 ? DD/ 0815 ? TD/TT: 05/15/24 0840 ? Condenser Winder: ? Procedure Note Ofelia, Image - 05/17/[address] [facility]'[address] [place], [place] [address] Mammography Report Signed Patient: Jayne LaneMR#: [id number] : 6Acct:[id number] Age/Sex: 68 / FADM Date: 05/15/24 Loc: ROSARIO Attending Dr: Lina Jason MD Ordering Physician: Lina Jasonesults: Date of Service: 05/15/24Follow Up: Procedure(s): XR DEXA appendicular skeleton Accession Number(s): [id number] cc: James Trimble MD; Lina Jason MD EXAMINATION: DXA BONE DENSITY EXTREMITY HISTORY: Estrogen deficiency TECHNIQUE: Gone! Dual energy absorptiometry (DEXA) of the lumbar [...] of the [employer] [place] [facility] Disease, a World Health Organization (WHO) Collaborating Center. Electronically signed by: Zev Mukherjee MD 05/17/2024 07:34 AM EST RP Dictated By: Zev Mukherjee MD Signed By: <Electronically signed by Zev Mukherjee MD in OV> 05/17/2434 DD/ 4 TD/TT: 05/15/24 0840 Condenser Winder: [facility] External Provider IMG XR PROCEDURES Final Result * (ABNORMAL) POCT HGB A1C (03/21/2024 9:51 AM EST) Pathologist [facility] Hemoglobin A1C 8.4(A) 4.0 - 6.0 % QC Media Lot # [id number] Lot# Expiration Date ,342,165 Blood 03/21/2024 9:51 AM EST James Ashraf MD POINT OF CARE TEST EN TER/EDIT ORDERABLES Final Result * Lipid Panel, Standard (02/05/2024 7:55 AM EST) Triglycerides 104 <150 mg/dL [facility] Comment:Desirable Triglyceri de: less than 150 mg/dLBorderline High Triglyceride 150-199 mg/dLHigh Triglyceride: 200-499 mg/dLVery High Triglyceride: greater than or equal to 5OO mg/dL Cholesterol 123 <200 mg/dL [facility] Comment:Desirable Cholestero l: less than 200 mg/dLBorderline High Cholesterol: 200-239 mg/dLHigh Cholesterol: greater than 239 mg/dL LDL Cholesterol Calculated 62 <100 mg/dL [facility] Comment:Desirable LDL: less than 100 mg/dLNear Optimal/Above Optimal LDL: 110- 129 mg/dLBorderline High LDL: 130-159 mg/dLHigh LDL: 160-189 mg/dLVery High LDL: greater than or equal to 190 mg/dL HDL Cholesterol 41 >40 mg/dL [facility] Comment:Desirable HDL: great er than 40 mg/dL Note: This HDL assay may give artificially low results in patients with liver disease. Blood Venous blood specimen / Unknown 02/05/2024 7:55 AM EST 02/05/2024 11:17 AM EST us James Ashraf MD LAB BLOOD ORDERABLES Final Result Performing Organization Address City/State/[facility] Co de Phone Number [facility] [address] [place] [phone] * Pap Smear (06/22/2023 3:20 PM EDT) 06/22/2023 3:20 PM EDT 06/27/2023 11:15 AM EDT Narrative [facility] - 07/11/2023 2:16 PM EDT ----- ------- Name: Jayne Lane ?Age/Sex: 68/F ? : 1955 Unit#: [id number] ?? Attend Dr: Opal Carranza CNM ?Re06/22/23 ?Status: DEP REF ? Location: HO.LNP ?Disch: ? ----- ------- SPEC : [id number] ? RECD: 06/27/23 ? STATUS: ??SOUT ? REQ NUM: [id number] ? CYRUS: 06/22/23-1520 ? SUBM DR: Opal CarranzaM ? ENTERED: ??06/27/23-1232 ?SP TYPE: Pap Smr [...] 66, 68) ? HPV testing performed by [facility], [place], [place]. ??See reference laboratory ?? portion of the EMR for entire report. 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 Material Received ?? ThinPrep-Cervical Copies To: ?? James Trimble MD ?? [address] ?? [place] [address] ?? [phone] ?? Opal Carranza CNM ?? [address] [facility][note 3] ?? [place] [address] ?? [phone] ----- ------- Signed (signature on file) Ev Ilana 07/11/23 1416 ? ----- ------- ? END OF REPORT ? us Generic External Data Provider LAB CYTOLOGY RELL SALAZAR Final Result [facility] [address] [place], [place] [phone] * BI Mammogram Screening Tomosynthesis Bilateral (02/22/2023 8:20 AM EST) Anatomical Region Laterality Modality Breast Bilateral Mammography 02/22/2023 8:20 AM EST Narrative 03/07/2023 9:08 PM EST ? [facility] ? [address] ?[place] [address] ? Mammography Report ? Signed ? Patient: Cappa,Jayne ?MR#: [id number] ? : 1955 ?Acct:[id number] ? Age/Sex: 67 / F ?ADM Date: 02/22/ ? Loc: HO.MAMMO ? Attending Dr: James Trimble MD ? Ordering Physician: Loraine Yadav MD ?Results: 1Ne ?? gative ? Date of Service: 02/22/23 ?Follow Up: 1 Year From Orig ?? inal Mammogram ? Procedure(s): MM tomosynthesis screening BI ?? Accession Number(s): [id number] ? cc: James Trimble MD; Loraine Yadav [...] 03/07/232103 ? DD/ 0820 ? TD/TT: ? Condenser Winder: ? Procedure Note Ofelia, Viridiana - 03/07/2023 [facility] [address] [place] [address] Mammography Report Signed Patient: Jayne LaneMR#: [id number] : 6Acct:[id number] Age/Sex: 67 / FADM Date: 02/22/23 Loc: HO.MAMMO Attending Dr: James Trimble MD Ordering Physician: Loraine Yadavesults: 1Ne gative Date of Service: 02/22/23Follow Up: 1 Year From Orig inal Mammogram Procedure(s): MM tomosynthesis screening BI Accession Number(s): [id number] cc: James Trimble MD; Loraine Yadav MD [...] MD in OV> 03/07/232103 DD/ 0820 TD/TT: Condenser Winder: [facility] External Provider IMG BI PROCEDURES Final Result * Colonoscopy (07/11/2022 3:53 PM EDT) Colonoscopy Normal Normal Comment:Tubular adenoma Historical Provider HEALTH MAINTENANCE Final Result * HPV E6/E7 RFLX DANIAL 16 18/45 (01/17/2022 4:22 PM EST) HPV 16 RNA TNP CONVERTED [facility] HPV 18/45 RNA TNP CONVER LEONIDAS [facility] HPV E6 E7 ADD TNP CONVER 404 Found! HPV mRNA E6/E7 rflx Not Detected Not Detected CONVERTED [facility] Comment: Methodology: Pst Supervisor-Mediated Amplification This assay detects E6/E7 viral messenger RNA (mRNA) from 14 high-risk HPV types (16,18,31,33,35,39,45,51,52,56,58,59,66,68). Cervical sources are required for HPV testing. If a vaginal source from a patient who has had a total hysterectomy with removal of cervix was submitted, please contact the testing laboratory for alternative testing options. For additional information, please refer to http://education.[employer]/faq/SUY079l2 (This link if provided for information/ educational purposes only.) THIS TEST WAS PERFORMED AT: [email or web address] [address] [place] [address] [address] [place], [place] ??[phone] KEVEN CHAND MD 01/17/2022 4:22 PM EST us Opal Carranza HISTORICAL/NON ORDERABLE LABS Fi nal Result CONVERTED LEGACY LABS from Last 3 Months or Most Recently Relevant to Health Maintenance Insurance [facility] [employer] (HMO D-SNP) Care Teams Transcription Specialist Relationship Specialty Start Date End Date James Flores MD [address] [place] [address] PCP - General Internal Medicine 02/04/14
--- OUTSIDE RECORDS SUMMARY | 2024-08-01 11:19 | XMS_ITS | Clinical Summary ---
Author Organization [facility] Address [address] [place] [address] Phone Care Team Providers Care Palliative Care Nurse Name Role Phone James Grant MD Primary [...] complete this topic Insurance [employer] [place] [id number] [employer] Care Teams Palliative Care Nurse Relationship Specialty Start Date End Date James Grant MD PCP - General 03/23/20
--- OUTSIDE RECORDS SUMMARY | 2024-08-01 11:19 | XMS_ITS | Encounter Summary ---
Author Organization [facility] Address [address] [facility] [address] [place] [address] Care Team Providers Care Application Developer Manager Name Role Phone James Flores MD Primary Care Provide r Reason for Visit * Reason Onset Date Comments Nurse Triage 03/18/2024 Encounter Details Date Type Department Care Team (Late st Contact Info) Description 03/18/2024 Telephone [facility] [address] [place] [address] James Flores MD [address] [place] [address] Nurse Triage Social History Tobacco Use Types [...] 03/18/2024 11:50 AM EST Triage call with [facility] [place] [id number]. Pt reports continual coughing with cold symptoms. Pt was seen in [facility] 02/29/24 for cough and exacerbation of asthma. Pt reports has been using inhaler and nebulizer as prescribed though not every day.Pt denies having difficulty breathing. Pt requests to see provider again due to continuation of cough and cold symptoms neg for fever. Pt is advised to return to [facility] today open till 8pm and Pt agreeswith this disposition. Pt is requesting what medication could be taken for cough , Pt is taking BP medications and is advised to ask provider when seen in [facility] and Pt agrees. Insurance is verified [...] Description 09/03/2024 11:15 AM EDT Office Visit [facility] [address] [place] [address] James Flores MD [address] [place] [phone] documented as of this encounter Visit Diagnoses Not on filedocumented in this encounter Additional Health Concerns Assessment Noted Time PHQ-9 Depression Total Score: 0 01/30/20 24 10:37 AM EST documented as of this encounter Care Teams Application Developer Manager Relationship Specialty Start Date End Date James Flores MD [address] [place] [phone] PCP - General Internal Medicine 02/04/14 documented as of this encounter
--- OUTSIDE RECORDS SUMMARY | 2024-08-01 11:19 | XMS_ITS | Encounter Summary ---
Author Organization [employer] Address [address] [facility] [address] [place] [address] Care Team Providers Care Video Photographer Name Role Phone James Flores MD Primary Care Provide r Encounter Details Date Type Department Care Team ([facility] Contact Info) Description 03/17/2022 Orders Only [facility] [address] [place], [place] [phone] Jaja Hammond LPN Social History Tobacco Use [...] Upcoming Encounters Date Type Department Care Team ([facility] Contact Info) Description 09/03/2024 11:15 AM EDT Office Visit [facility] [address] [place], [place] [phone] James Flores MD [address] [place], [place] [phone] documented as of this encounter Visit Diagnoses Not on filedocumented in this encounter Care Teams Video Photographer Relationship Specialty Start Date End Date James Flores MD [address] [place] [phone] PCP - General Internal Medicine 02/04/14 documented as of this encounter
== END 2024-08-02 13:58 | disposition home or self-care (01) ==
PROVIDERS: PCP Internal Medicine; Visit Provider Internal Medicine Gastroenterology
DX: Z86.0100 Personal history of colon polyps, unspecified (principal); K64.9 Unspecified hemorrhoids; K21.9 Gastro-esophageal reflux disease without esophagitis; K59.09 Other constipation
CPT/HCPCS: 99213

== ENCOUNTER → 2024-08-01 10:40 | Outpatient (BNVA) | payer MEDICARE, SELFPAY | PROVIDERS: PCP Internal Medicine; Visit Provider Internal Medicine Gastroenterology ==

== ENCOUNTER 2024-08-07 10:54 | Outpatient (REF) | payer OTHER, SELFPAY ==
--- OUTSIDE RECORDS SUMMARY | 2024-08-07 11:59 | XMS_ITS | Encounter Summary ---
Author Organization [email or web address] Address [address] [facility] 7t [place] [address] Care Team Providers Care Office Technology Professor Name Role Phone James Flores MD Primary Care Provide r Encounter Details Date Type Department Care Team (Late st Contact Info) Description 08/22/2022 Orders Only [facility] CHC MED & PEDS [address] [place], [place] [phone] Jaja Hammond LPN Social History Tobacco Use [...] 09/03/2024 11:15 AM EDT Office Visit [facility] MEDICINE [address] [place], [place] [phone] James Flores MD [address] [place] [address] documented as of this encounter Visit Diagnoses Not on filedocumented in this encounter Care Teams Office Technology Professor Relationship Specialty Start Date End Date James Flores MD [address] [place] [id number] PCP - General Internal Medicine 02/04/14 documented as of this encounter
[2024-08-07 12:38] LABS: Erythrocyte Sedimentation Rate 45 MM/HR (0-20)
[2024-08-07 12:49] LABS: C Reactive Protein < 0.10 mg/dL (< or = 0.50); Calcium 10.3 mg/dL (8.4-10.2)
[2024-08-07 12:59] LABS: Vitamin D 25-OH Total 40.7 ng/mL (>30)
[2024-08-07 14:45] LABS: Parathyroid Hormone Intact 52.7 pg/mL (8.7-77.1)
== END 2024-08-07 10:55 | disposition home or self-care (01) ==
LOC: HO.LAB 10:54
PROVIDERS: Internal Medicine Endocrinology, Diabetes & Metabolism; PCP Internal Medicine; Visit Provider Psychiatry & Neurology Neurology
DX: M31.6 Other giant cell arteritis (principal); E83.52 Hypercalcemia
CPT/HCPCS: 36415; 82040; 82306; 82310; 83970; 85652; 86140

== ENCOUNTER 2024-08-25 22:05 | Emergency (ER) | payer OTHER, SELFPAY ==
[2024-08-25 22:47] VITALS: BP 132/54; PULSE 80; RESP 16; TEMP 36.8; O2SAT 100; BMI 33.0
[2024-08-25 23:09] LABS: Hematocrit 33.6 % (37.0-47.0); Mean Corpuscular HGB Conc 32.7 g/dl (31.0-35.0); Mean Corpuscular Hemoglobin 30.9 pg (27.0-33.0); Mean Corpuscular Volume 94.4 fL (80.0-98.0); Mean Platelet Volume 10.2 fL (9.4-12.3); Platelet Count 197 X10*3/uL (160-400); Red Blood Count 3.56 X10*6/uL (4.20-5.50); Red Cell Distribution Width 13.2 % (11.0-16.0); White Blood Count 7.6 X10*3/uL (4.8-10.8)
[2024-08-25 23:10] LABS: Appearance Urine Cloudy; Glucose Urine UA Negative (Negative); Leukocyte Esterase Urine Large (3+) (Negative); Nitrite Urine Negative (Negative); Specific Gravity - Urine 1.015 (1.005-1.025); UMIC TRIGGER UACC YES; Urine Blood Large (3+) (Negative); Urine Ketones Trace mg/dL (Negative); Urine Protein 100 (2+) mg/dL (Neg-Trace)
[2024-08-25 23:11] LABS: Color Urine Red
[2024-08-25 23:16] LABS: Bacteria Urine 1+ (None Seen); Hyaline Casts Urine 0-2 /LPF (0-2); RBC Urine >20 /HPF (0-2); Squamous Epithelial Cell Urine 0-2 /HPF (0-2); UACC Culture Trigger YES; WBC Urine >50 /HPF (0-5)
--- OUTSIDE RECORDS SUMMARY | 2024-08-25 23:20 | XMS_ITS | Encounter Summary ---
Author Organization [employer] Address [address] [facility] 7t [place] [address] Care Team Providers Care Archaeology Professor Name Role Phone James Flores MD Primary Care Provide r Encounter Details Date Type Department Care Team (Late st Contact Info) Description 08/22/2022 Orders Only [facility] CHC MED & PEDS [address] [place], [place] [phone] Jaja Hammond LPN Social History Tobacco Use [...] 09/03/2024 11:15 AM EDT Office Visit [facility] MEDICINE [address] [place], [place] [phone] James Flores MD [address] [place] [address] documented as of this encounter Visit Diagnoses Not on filedocumented in this encounter Care Teams Archaeology Professor Relationship Specialty Start Date End Date James Flores MD [address] [place] [phone] PCP - General Internal Medicine 02/04/14 documented as of this encounter
[2024-08-25 23:24] LABS: Alanine Aminotransferase 21 U/L (0-31); Albumin Level 4.4 g/dL (3.5-5.0); Alkaline Phosphatase 68 U/L (39-117); Anion Gap 13 (12-20); Aspartate Amino Transferase 28 U/L (5-31); Bilirubin Total 0.2 mg/dL (0.0-1.0); Blood Urea Nitrogen 36 mg/dL (9-16); Calcium 10.2 mg/dL (8.4-10.2); Carbon Dioxide 29 mmol/L (22-29); Chloride 106 mmol/L (96-108); Creatinine Clr Calc Pharmacy 33.2; Estimated Glomerular Filt Rate 34; Glucose Random 163 mg/dL (60-115); Potassium 4.8 mmol/L (3.3-5.1); Sodium 143 mmol/L (135-145); Total Protein 7.2 g/dL (6.5-8.0)
--- NOTE | 2024-08-25 23:40 | ED_ITS ---
HPI - Female Genitourinary General Chief complaint: Urogenital-Female Stated complaint: painful when urinating/blood in urine Time Seen by Provider: 08/25/24 23:15 Source: patient Mode of arrival: ambulatory Limitations: no limitations History of Present Illness ED Provider: HPI Narrative: Patient diabetic with no history of kidney stone or frequent urinary tract infection noticed dysuria and frequency for last 24 hours when she wiped she noticed some blood on the tissue paper no flank pain no fever no chills no nausea no vomiting no abdominal pain Related Data Home Medications ?Medication ?Instructions ?Recorded ?Confirmed albuterol sulfate 90 mcg/actuation 2 puff inhalation Q4-6H PRN 12/24/19 08/01/24 aerosol inhaler (Ventolin HFA) Shortness Of Breath fluticasone propionate 110 1 puff inhalation BID 07/09/20 08/01/24 mcg/actuation HFA aerosol inhaler (Flovent HFA) loratadine 10 mg tablet 10 mg PO QAM 07/09/20 08/01/24 pen needle, diabetic 32 gauge x #50 ea 07/09/20 08/01/24 clopidogrel 75 mg tablet 75 mg PO DAILY 01/27/21 08/01/24 atorvastatin 80 mg tablet (Lipitor) 80 mg PO DAILY 11/01/21 08/01/24 amlodipine 5 mg tablet 5 mg PO DAILY 11/03/21 08/01/24 furosemide 20 mg tablet 20 mg PO DAILY 11/03/21 08/01/24 metoprolol tartrate 50 mg tablet 50 mg PO BID 11/03/21 08/01/24 omeprazole 20 mg capsule,delayed 20 mg PO DAILY 11/03/21 08/01/24 release acetaminophen 500 mg tablet 500 mg PO Q12H PRN Pain 01/28/22 08/01/24 budesonide 90 mcg/actuation breath 2 inh inhalation BID 01/28/22 08/01/24 activated powder inhaler (Pulmicort Flexhaler) cyclobenzaprine 5 mg tablet 5 mg PO TID PRN Pain 01/28/22 08/01/24 ferrous sulfate 325 mg (65 mg 325 mg PO TID 01/28/22 08/01/24 iron) tablet insulin lispro 100 unit/mL See Rx Instructions subcut TID 10/19/23 08/01/24 subcutaneous pen (Humalog KwikPen (U-100) Insulin) insulin glargine 100 unit/mL (3 38 unit subcut BEDTIME 11/22/23 08/01/24 mL) subcutaneous pen (Lantus Solostar U-100 Insulin) Previous Rx's ?Medication ?Instructions ?Recorded blood-glucose meter (OneTouch #1 ea 06/30/21 Verio Flex Meter) baclofen 10 mg tablet 10 mg PO BID muscle spasms #10 tabs 08/08/22 bisacodyl 10 mg rectal suppository 10 mg MT DAILY PRN constipation 03/21/23 (Dulcolax (bisacodyl)) #20 ea polyethylene glycol 3350 17 17 g PO DAILY 30 days #510 grams 03/21/23 gram/dose oral powder (Miralax) lancets #200 ea 08/28/23 pioglitazone 30 mg tablet (Actos) 30 mg PO DAILY #90 tabs 10/19/23 blood sugar diagnostic (OneTouch #100 strips 11/15/23 Verio test strips) lancets 33 gauge (TRUEplus Lancets) #100 ea 11/20/23 ezetimibe 10 mg tablet 10 mg PO QAM #90 tabs 12/20/23 calcium 200 mg (as 2 tab PO DAILY #120 tabs 01/29/24 citrate)-vitamin D3 6.25 mcg (250 unit) tablet docusate sodium 100 mg capsule 200 mg (2 x 100 mg) PO BEDTIME #60 03/21/24 caps cholecalciferol (vitamin D3) 25 25 mcg PO QAM #90 caps 05/23/24 mcg (1,000 unit) capsule (Vitamin D3) sennosides 8.6 mg tablet (senna) 8.6 mg PO DAILY PRN for 05/23/24 constipation #30 tabs acetaminophen 650 mg 650 mg PO Q12H PRN pain (scale 06/08/24 tablet,extended release (Tylenol score 1-3) #20 tabs Arthritis Pain) calcium polycarbophil 625 mg 1,250 mg (2 x 625 mg) PO QAM #60 06/24/24 tablet (Fiber-Lax) tabs diclofenac sodium 1 % topical gel 2 g topical QID #50 grams 07/28/24 lidocaine 5 % topical patch 1 patch topical DAILY #15 ea 07/28/24 Ozempic 1 mg/dose (4 mg/3 mL) 1 mg (0.75 mL) subcut QWEEK #3 mL 07/31/24 subcutaneous pen injector (semaglutide) FreeStyle Collin 3 Plus Sensor #6 ea 08/01/24 (blood-glucose sensor) FreeStyle Collin 3 Plus Sensor #6 ea 08/07/24 (blood-glucose sensor) blood-glucose,paper pattern inspector,cont #1 ea 08/07/24 (FreeStyle Collin 3 [place]) cefuroxime axetil 500 mg tablet 500 mg PO BID 7 days #14 tabs 08/25/24 phenazopyridine 200 mg tablet 200 mg PO TID 2 days #6 tabs 08/25/24 (Pyridium) Allergies Allergy/AdvReac Type Severity Reaction Status Date / Time morphine [Morphine] Allergy Intermediate TACHYCARDIA, Verified 08/25/24 22:53 ANXIETY oxycodone [Percocet] Allergy Intermediate Palpitation Verified 08/25/24 22:53 s acetaminophen [From Percocet] Allergy Palpitation Verified 08/25/24 22:53 s prednisone [PREDNISONE] AdvReac Intermediate ANXIETY Verified 08/25/24 22:53 Review of Systems 2 Review of Systems: Yes all other systems are reviewed and are negative PMFSH Past Medical History Medical History Abnormal Pap smear of cervix Osteoporosis Goiter Hyperparathyroidism Hypercalcemia Vitamin D deficiency HLD (hyperlipidemia) HTN (hypertension) T2DM (type 2 diabetes mellitus) On beta anurag at home Chronic constipation Diabetes Anemia GERD (gastroesophageal reflux disease) Sleep apnea Asthma CAD (coronary artery disease) Angina pectoris HTN (hypertension) Surgical History Hx of heart artery stent Hx of cholecystectomy History of esophagogastroduodenoscopy (EGD) H/O colonoscopy Family History Family History Father Liver problem Mother Diabetes Obesity Social History Social History Household Members Other:: With Housing: House Alcohol intake: never Patient Tobacco Use Status: Never used Tobacco Advance Directives: No Advance Directives Information Provided: No Current occupational status: disabled Sexual orientation: Straight/Heterosexual Gender identity: Female Physical Exam 2 Vital Signs: Vital Signs: Last Vital Signs Temp 98.2 F 08/25/24 22:47 Pulse 80 08/25/24 22:47 Resp 16 08/25/24 22:47 BP 132/54 L 08/25/24 22:47 Pulse Ox 100 08/25/24 22:47 O2 Del Method Room Air 08/25/24 22:47 BMI result Body Mass Index 33.0 Appearance: Alert. Oriented X3. No acute distress. Eyes: PERRLA, No Nystagmus ENT: Pharynx normal. Oral Mucosa moist Neck: Normal inspection. Neck supple. CVS: Normal heart rate and rhythm. Pulses normal. Respiratory: No respiratory distress. Equal air entry bilateral, no wheezing/rales/rhonchi Abdomen: Soft and nontender. Bowel sounds are present, no mass palpable, no CVA tenderness Skin: Skin warm and dry. Normal skin color. Normal skin turgor. Extremities: No lower extremity edema. No calf tenderness Neuro: Oriented X 3. No motor deficit. No sensory deficit.No cerebellar signs , cranial nerves II-XII intact Medical Decision Making Medical Decision Making [facility] Narrative: Patient's UTI/hemorrhagic cystitis will give Macrobid and cefuroxime uncomplicated advised to follow up as outpatient Differential Diagnosis Differential Diagnoses: The differential diagnosis associated with the presentation includes UTI/hemorrhagic cystitis/kidney stone Lab Data [facility] Lab Attestation statement: I reviewed the patient's lab results. 08/25/24 23:00 08/25/24 23:00 Labs: Lab Results 08/25/24 Range/Units 23:00 WBC 7.6 (4.8-10.8) X10*3/uL RBC 3.56 L (4.20-5.50) X10*6/uL Hgb 11.0 L (12.0-16.0) g/dl Hct 33.6 L (37.0-47.0) % MCV 94.4 (80.0-98.0) fL MCH 30.9 (27.0-33.0) pg MCHC 32.7 (31.0-35.0) g/dl RDW 13.2 (11.0-16.0) % Plt Count 197 (160-400) X10*3/uL MPV 10.2 (9.4-12.3) fL Absolute Nucleated RBC 0.000 (0.0-0.012) X10*3/uL Nucleated RBC % (auto) 0.0 (0.0-0.2) /100WBC Sodium 143 (135-145) mmol/L Potassium 4.8 (3.3-5.1) mmol/L Chloride 106 (96-108) mmol/L Carbon Dioxide 29 (22-29) mmol/L Anion Gap 13 (12-20) BUN 36 H (9-16) mg/dL Creatinine 1.52 H (0.5-1.4) mg/dL Estim Creat Clear Calc 33.2 Estimated GFR 34 Random Glucose 163 H (60-115) mg/dL Calcium 10.2 (8.4-10.2) mg/dL Total Bilirubin 0.2 (0.0-1.0) mg/dL AST 28 (5-31) U/L ALT 21 (0-31) U/L Alkaline Phosphatase 68 (39-117) U/L Total Protein 7.2 (6.5-8.0) g/dL Albumin 4.4 (3.5-5.0) g/dL Urine Color Red A Urine Appearance Cloudy Urine pH 6.0 (5.0-9.0) Ur Specific [place] 1.015 (1.005-1.025) Urine Protein 100 (2+) H (Neg-Trace) mg/dL Urine Glucose (UA) Negative (Negative) mg/dL Urine Ketones Trace (Negative) mg/dL Urine Blood Large (3+) H (Negative) Urine Nitrite Negative (Negative) Ur Leukocyte Esterase Large (3+) H (Negative) Urine RBC >20 H (0-2) /HPF Urine WBC >50 H (0-5) /HPF Ur Squamous Epith Cells 0-2 (0-2) /HPF Urine Bacteria 1+ (None Seen) Hyaline Casts 0-2 (0-2) /LPF Discharge Plan Discharge Clinical Impression: Urinary tract infection Patient Disposition: Home, Self-Care Instructions: Urinary Tract Infection in Women (ED) Additional Instructions: Drink plenty of fluids Take antibiotics as prescribed Pyridium 3 times a day as needed for discomfort Report to the ER if not better/high fever/vomiting Prescriptions: New cefuroxime axetil 500 mg tablet 500 mg PO BID 7 Days Qty: 14 0RF phenazopyridine [Pyridium] 200 mg tablet 200 mg PO TID 2 Days Qty: 6 0RF No Action (DME) blood-glucose meter [OneTouch Verio Flex meter] Misc See Rx Instructions .Route Qty: 1 0RF Rx Instructions: As directed acetaminophen 500 mg tablet 500 mg PO Q12H PRN (Reason: Pain) cyclobenzaprine 5 mg tablet 5 mg PO TID PRN (Reason: Pain) ferrous sulfate 325 mg (65 mg iron) tablet 325 mg PO TID Pulmicort Flexhaler 90 mcg/actuation aerosol powdr breath activated 2 inh inhalation BID (DME) lancets Misc See Rx Instructions .Route Qty: 200 5RF Rx Instructions: As directed (DME) OneTouch Verio test strips Strip See Rx Instructions .ROUTE .COMPLEX Qty: 100 11RF Dose Instruction: TEST BLOOD SUGAR THREE OR FOUR TIMES DAILY Rx Instructions: TEST BLOOD SUGAR THREE OR FOUR TIMES DAILY (DME) lancets [TRUEplus Lancets] 33 gauge misc See Rx Instructions .Route Qty: 100 11RF Rx Instructions: As directed to test blood sugar 3-4 times a day ezetimibe 10 mg tablet 10 mg PO QAM Qty: 90 3RF calcium citrate-vitamin D3 200 mg-6.25 mcg (250 unit) tablet 2 tab PO DAILY Qty: 120 3RF docusate sodium 100 mg capsule 200 mg PO BEDTIME Qty: 60 5RF sennosides [senna] 8.6 mg tablet 8.6 mg PO DAILY PRN (Reason: for constipation) Qty: 30 1RF cholecalciferol (vitamin D3) [Vitamin D3] 25 mcg (1,000 unit) capsule 25 mcg PO QAM Qty: 90 3RF Fiber-Lax 625 mg tablet 1,250 mg PO QAM Qty: 60 3RF (DME) FreeStyle Collin 3 Plus Sensor Device See Rx Instructions .Route Qty: 6 3RF Rx Instructions: every 15 days (DME) FreeStyle Collin 3 Plus Sensor Device See Rx Instructions .Route Qty: 6 3RF Rx Instructions: every 15 days (DME) FreeStyle Collin 3 [place] Misc See Rx Instructions .Route Qty: 1 0RF Rx Instructions: As directed albuterol sulfate [Ventolin HFA] 90 mcg/actuation Hfa Aerosol Inhaler 2 puff INHALATION Q4-6H PRN (Reason: Shortness Of Breath) Flovent HFA 110 mcg/actuation HFA aerosol inhaler 1 puff INHALATION BID baclofen 10 mg tablet 10 mg PO BID Qty: 10 0RF acetaminophen [Tylenol Arthritis Pain] 650 mg tablet extended release 650 mg PO Q12H PRN (Reason: pain (scale score 1-3)) Qty: 20 0RF diclofenac sodium 1 % gel 2 g topical QID Qty: 50 0RF Rx Instructions: apply to single elbow, wrist or hand; for hand includes palm/fingers/back of hand lidocaine 5 % adhesive patch,medicated 1 patch topical DAILY Qty: 15 0RF Rx Instructions: leave on most painful area for up to 12 hrs (DME) pen needle, diabetic 32 gauge x 5/32 needle See Rx Instructions .ROUTE QID Qty: 50 Rx Instructions: As directed loratadine 10 mg tablet 10 mg PO QAM clopidogrel 75 mg tablet 75 mg PO DAILY insulin lispro [Humalog KwikPen Insulin] 100 unit/mL insulin pen See Rx Instructions subcut TID Rx Instructions: Sliding Scale 6-16 subcutaneously 3 times a day; metoprolol tartrate 50 mg tablet 50 mg PO BID amlodipine 5 mg tablet 5 mg PO DAILY omeprazole 20 mg capsule,delayed release(DR/EC) 20 mg PO DAILY furosemide 20 mg tablet 20 mg PO DAILY atorvastatin [Lipitor] 80 mg tablet 80 mg PO DAILY polyethylene glycol 3350 [Miralax] 17 gram/dose powder 17 g PO DAILY 30 Days Qty: 510 6RF Rx Instructions: Take QHS bisacodyl [Dulcolax (bisacodyl)] 10 mg suppository 10 mg MT DAILY PRN (Reason: constipation) Qty: 20 0RF Lantus Solostar U-100 Insulin 100 unit/mL (3 mL) insulin pen 38 unit subcut BEDTIME Ozempic 1 mg/dose (4 mg/3 mL) pen injector 1 mg subcut QWEEK Qty: 3 3RF pioglitazone [Actos] 30 mg tablet 30 mg PO DAILY Qty: 90 3RF Print Language: [place]
[2024-08-25] MEDS: cefuroxime axetiL 500 MG TABLET PO (23:50)
[2024-08-25] MEDS: Phenazopyridine HCL 200 MG TABLET PO (23:50)
[2024-08-25 23:52] VITALS: BP 134/52; PULSE 83; RESP 16; TEMP 35.9; O2SAT 99
[2024-08-26 00:06] VITALS: BP 134/52; PULSE 83; RESP 16; TEMP 35.9; O2SAT 99
== END 2024-08-26 00:07 | disposition home or self-care (01) ==
PROVIDERS: Emergency Provider Internal Medicine; PCP Internal Medicine
DX: N39.0 Urinary tract infection, site not specified (principal); R30.0 Dysuria; E11.9 Type 2 diabetes mellitus without complications; I10 Essential (primary) hypertension; E78.5 Hyperlipidemia, unspecified; J45.909 Unspecified asthma, uncomplicated; Z79.02 Long term (current) use of antithrombotics/antiplatelets; Z79.899 Other long term (current) drug therapy
CPT/HCPCS: 36415; 80053; 81001; 85027; 87086; 87088; 87186; 99283; 99284

== ENCOUNTER 2024-08-26 11:47 | Outpatient (AMB) | payer OTHER, SELFPAY ==
--- NOTE | 2024-08-26 11:53 | A.OFFVIS_ITS ---
Vital Signs 08/26/24 11:55 Height 5 ft 1 in Weight 174 lb BMI 32.9 Intake Visit Reasons: Inj-Left knee cortisone injection Intake Note: Jayne is a 69 year old female who presents today for a left knee cortisone injection. Patient is having second thoughts about getting the injection since she is having pain in her right knee from her injection. Allergies morphine [Morphine] Allergy (Intermediate, Verified 08/26/24 11:54) TACHYCARDIA, ANXIETY oxycodone [Percocet] Allergy (Intermediate, Verified 08/26/24 11:54) Palpitations acetaminophen [From Percocet] Allergy (Verified 08/26/24 11:54) Palpitations prednisone [PREDNISONE] Adverse Reaction (Intermediate, Verified 08/26/24 11:54) ANXIETY Medication List - Last Reconciled 08/26/24 by Zac Su PA-C acetaminophen 500 mg PO Q12H PRN acetaminophen ER (Tylenol Arthritis Pain) 650 mg PO Q12H PRN albuterol sulfate 90 mcg/actuation (Ventolin HFA) 2 puffs inhalation Q4-6H PRN amlodipine 5 mg PO DAILY atorvastatin (Lipitor) 80 mg PO DAILY baclofen 10 mg PO BID bisacodyl (Dulcolax (bisacodyl)) 10 mg UT DAILY PRN blood sugar diagnostic (OneTouch Verio test strips) TEST BLOOD SUGAR THREE OR FOUR TIMES DAILY blood-glucose meter (OneTouch Verio Flex Meter) As directed blood-glucose,potato loader,cont (FreeStyle Collin 3 [place]) As directed budesonide 90 mcg/actuation (Pulmicort Flexhaler) 2 inhalations inhalation BID calcium citrate-vitamin D3 200 mg-6.25 mcg (250 unit) 2 tabs PO DAILY calcium polycarbophil (Fiber-Lax) 1,250 mg (2 x 625 mg) PO QAM cefuroxime axetil 500 mg PO BID 7 days celecoxib (Celebrex) 200 mg PO BID 30 days cholecalciferol (vitamin D3) (Vitamin D3) 25 mcg PO QAM clopidogrel 75 mg PO DAILY cyclobenzaprine 5 mg PO TID PRN diclofenac sodium 1% 2 grams topical QID docusate sodium 200 mg (2 x 100 mg) PO BEDTIME ezetimibe 10 mg PO QAM ferrous sulfate 325 mg PO TID fluticasone propionate 110 mcg/actuation (Flovent HFA) 1 puff inhalation BID FreeStyle Collin 3 Plus Sensor (blood-glucose sensor) every 15 days NS FreeStyle Collin 3 Plus Sensor (blood-glucose sensor) every 15 days NS furosemide 20 mg PO DAILY insulin glargine (Lantus Solostar U-100 Insulin) 38 units subcut BEDTIME insulin lispro (Humalog KwikPen (U-100) Insulin) Sliding Scale 6-16 subcutaneously 3 times a day; lancets As directed lancets (TRUEplus Lancets) As directed to test blood sugar 3-4 times a day lidocaine 5% 1 patch topical DAILY loratadine 10 mg PO QAM metoprolol tartrate 50 mg PO BID omeprazole 20 mg PO DAILY Ozempic (semaglutide) 1 mg (0.75 mL) subcut QWEEK NS pen needle, diabetic As directed phenazopyridine (Pyridium) 200 mg PO TID 2 days pioglitazone (Actos) 30 mg PO DAILY polyethylene glycol 3350 (Miralax) 17 grams PO DAILY 30 days sennosides (senna) 8.6 mg PO DAILY PRN HPI HPI Inj-Left knee cortisone injection: Details: 69 yo female returns to the office today for f/u left knee pain . She had an injection in the right knee which he states was not entirely helpful. Unsure if she wants injection in the left. She has started PT. [facility] Medical History Abnormal Pap smear of cervix Osteoporosis Goiter Hyperparathyroidism Hypercalcemia Vitamin D deficiency HLD (hyperlipidemia) HTN (hypertension) T2DM (type 2 diabetes mellitus) On beta anurag at home Chronic constipation Diabetes Anemia GERD (gastroesophageal reflux disease) Sleep apnea Asthma CAD (coronary artery disease) Angina pectoris HTN (hypertension) Surgical History Hx of heart artery stent Hx of cholecystectomy History of esophagogastroduodenoscopy (EGD) H/O colonoscopy Family History Father Liver problem Mother Diabetes Obesity Social History Household Members Other:: With Housing: House Alcohol intake: never Patient Tobacco Use Status: Never used Tobacco Current occupational status: disabled Sexual orientation: Straight/Heterosexual Gender identity: Female Review of Systems Const All systems reviewed & are unremarkable except as noted in HPI and below Physical Exam Vital Signs: BMI result Body Mass Index 32.9 Const General: cooperative and no acute distress Orientation/consciousness: patient oriented x3 Resp Effort & Inspection: normal respiratory effort and able to speak in complete sentences Cardio Peripheral pulses: Peripheral pulses 2+ throughout Neuro General: patient oriented x3 Extrem Other: Left knee skin intact, no erythema or joint effusion. Tenderness along the medial joint line. ROM full with crepitus. Negative steinmans. No ligamentous laxity. NVI. Assessment & Plan Assessment & Plan (1) Osteoarthritis of knees, bilateral: Code(s): M17.0 - Bilateral primary osteoarthritis of knee Category: Medical Plan: We discussed options today which include injection in the left knee which she would like to hold off on at this time. I did give her a prescription for Celebrex to take twice a day. She will continue working with physical therapy. If she changes her mind about the left knee injection she can contact me to make an appointment otherwise she will follow up as needed. Medications: New celecoxib (Celebrex) 200 mg PO BID 60 caps 3RF 30 days Coding Level of Care Code Est Pt Level 3 (75578) Complex EM visit Add On G2211 Diagnoses Osteoarthritis of knees, bilateral M17.0
[2024-08-26 11:55] VITALS: BMI 32.9
--- OUTSIDE RECORDS SUMMARY | 2024-08-26 13:21 | XMS_ITS | Encounter Summary ---
Author Organization [employer] Address [address] [facility] [address] [place] [address] Care Team Providers Care Weaver [employer]oom Name Role Phone James Flores MD Primary Care Provide r Encounter Details Date Type Department Care Team (Late st Contact Info) Description 08/22/2022 Orders Only [facility] CHC MED & PEDS [address] [place], [place] [phone] Jaja Hammond LPN Social History Tobacco Use [...] Description 09/03/2024 11:15 AM EDT Office Visit [facility] MEDICINE [address] [place], [place] [phone] James Flores MD [address] [place] [address] documented as of this encounter Visit Diagnoses Not on filedocumented in this encounter Care Teams [employer]oom Relationship Specialty Start Date End Date James Flores MD [address] [place] [id number] PCP - General Internal Medicine 02/04/14 documented as of this encounter
== END 2024-08-26 11:59 | disposition home or self-care (01) ==
LOC: HO.HOS 11:48
PROVIDERS: Visit Provider Physician Assistant
DX: M17.0 Bilateral primary osteoarthritis of knee (principal)
CPT/HCPCS: 99213; G2211

== ENCOUNTER → 2024-08-26 11:47 | Outpatient (BNVA) | payer OTHER, SELFPAY | PROVIDERS: Visit Provider Physician Assistant | DX: M17.0 Bilateral primary osteoarthritis of knee (principal); M25.561 Pain in right knee | CPT/HCPCS: 99212 ==

== ENCOUNTER 2024-09-11 09:27 | Outpatient (AMB) | payer MEDICARE, SELFPAY ==
[2024-09-11 09:29] VITALS: BP 122/60; PULSE 78; O2SAT 98; BMI 32.9
--- NOTE | 2024-09-11 09:29 | A.OFFVIS_ITS ---
Vital Signs 09/11/24 09:29 Height 5 ft 1 in Weight 174 lb 2.643 oz BMI 32.9 BP 122/60 Blood Pressure Location Rt brachial Position Sitting Pulse 78 Pulse Source Pulse Oximeter Pulse Oximetry (%) 98 Oxygen Delivery Method Room Air Intake Visit Reasons: DM Intake Note: Patient presents today for a follow-up for Type 2 Diabetes Mellitus: Last Diabetic Eye exam: 10/2023, Pt has cataracts, pending surgery. Last Podiatry Exam: Does not see a Hi Low Truck Driver Most recent HbA1c: 8.5%, 07/31/2024 Random Glucose- 195 mg/dL, Today Senior Trainer Required: Yes Senior Trainer Language: Delinquent Notice Machine Operator Services: Senior Trainer Offered & Declined Senior Trainer Name: BUZZLE BUFFER Accompanied by: BUZZLE BUFFER Allergies morphine (Morphine) Allergy (Intermediate, Verified 09/11/24 09:30) TACHYCARDIA, ANXIETY oxycodone (Percocet) Allergy (Intermediate, Verified 09/11/24 09:30) Palpitations acetaminophen (From Percocet) Allergy (Verified 09/11/24 09:30) Palpitations prednisone (PREDNISONE) Adverse Reaction (Intermediate, Verified 09/11/24 09:30) ANXIETY HPI Comments Details: 68 year old female presenting for diabetic follow up Medical history: HTN, HLD, Vitamin D deficiency, hypercalcemia T2DM: Initially diagnosed with T2DM in 1999 during a routine screening physical. Was initially started on treatment with orals, and has been requiring insulin since 2014. Current regimen Lantus 38 units qHS, Humalog 12 SS Actos 30 mg PO daily Ozempic 1mg (increased 6 weeks ago) Fasting blood glucose 90-160 generally 100-140 POC A1C May was 8.5% from 9.1. She has been on daily prednisone for concern for GCA. This dose is 1mg No recent hypoglycemia Family history of T2DM in her mother, daughter and her siblings. Last eye exam 10/2023, cataracts Denies neuropathy, does not see podiatry. Has nephropathy, CKD-follows with renal Has HLD, on Atorvastatin 80 mg PO daily and Zetia 10 mg PO daily. Has CAD-follows with cardiology 2) Hypercalcemia: Following with Dr Sylvester BALDERRAMA CONSTITUTIONAL: Denies weight loss, fever and chills. HEENT: Denies changes in vision and hearing. RESPIRATORY: Denies SOB and cough. CV: Denies palpitations and CP GI: Denies abdominal pain, nausea, vomiting and diarrhea. : Denies dysuria and urinary frequency. MSK: Denies new myalgia and joint pain. SKIN: Denies rash and pruritus. NEUROLOGICAL: Denies headache PSYCHIATRIC: Denies recent changes in mood. PHYSICAL EXAM: GENERAL: Alert and oriented x 3. NAD EYES: EOMI. Anicteric. HENT: Moist mucous membranes. No scleral icterus. No cervical lymphadenopathy. LUNGS: Clear to auscultation bilaterally. CARDIOVASCULAR: Regular rate and rhythm. Systolic murmur. No JVD. ABDOMEN: Soft, non-tender +bs EXTREMITIES: No edema. Non-tender. SKIN: No rashes or lesions. Warm. NEUROLOGIC: No focal neurological deficits. CN II-XII grossly intact PSYCHIATRIC: Cooperative. Appropriate mood and affect [facility] Medical History Abnormal Pap smear of cervix Osteoporosis Goiter Hyperparathyroidism Hypercalcemia Vitamin D deficiency HLD (hyperlipidemia) HTN (hypertension) T2DM (type 2 diabetes mellitus) On beta anurag at home Chronic constipation Diabetes Anemia GERD (gastroesophageal reflux disease) Sleep apnea Asthma CAD (coronary artery disease) Angina pectoris HTN (hypertension) Surgical History Hx of heart artery stent Hx of cholecystectomy History of esophagogastroduodenoscopy (EGD) H/O colonoscopy Family History Father Liver problem Mother Diabetes Obesity Social History Household Members Other:: With Housing: House Alcohol intake: never Patient Tobacco Use Status: Never used Tobacco Current occupational status: disabled Sexual orientation: Straight/Heterosexual Gender identity: Female Physical Exam Vital Signs: Last Vital Signs Pulse 78 09/11/24 09:29 BP 122/60 09/11/24 09:29 Pulse Ox 98 09/11/24 09:29 Oxygen Delivery Method Room Air 09/11/24 09:29 BMI result Body Mass Index 32.9 Assessment & Plan Assessment & Plan (1) T2DM (type 2 diabetes mellitus): Code(s): E11.9 - Type 2 diabetes mellitus without complications Category: Medical Qualifiers: Diabetes mellitus penitentiary insulin use: with penitentiary use Diabetes mellitus complication status: with hyperglycemia Qualified Code(s): E11.65 - Type 2 diabetes mellitus with hyperglycemia; Z79.4 - residential (current) use of insulin (2) Insulin use (long-term) in type 2 diabetes: Code(s): E11.9 - Type 2 diabetes mellitus without complications; Z79.4 - long term acute care registered nurse (current) use of insulin Category: Medical Qualifiers: Diabetes mellitus complication status: with hyperglycemia Qualified Code(s): E11.65 - Type 2 diabetes mellitus with hyperglycemia; Z79.4 - residential (current) use of insulin Plan Diabetes-fasting glucose mostly at goal She is due for A1C /october She will return then or sooner as needed, labs prior Orders: Orders Hemoglobin A1c 6 Weeks E11.65 - Type 2 diabetes mellitus with hyperglycemia, Z79.4 - long term acute care registered nurse (current) use of insulin Comprehensive Met. Panel 6 Weeks E11.65 - Type 2 diabetes mellitus with hyperglycemia, Z79.4 - residential (current) use of insulin Lipid Panel 6 Weeks E11.65 - Type 2 diabetes mellitus with hyperglycemia, Z79.4 - long term acute care registered nurse (current) use of insulin Coding Level of Care Code Est Pt Level 3 (46969) Diagnoses Type 2 diabetes mellitus with hyperglycemia, with long-term current use of insulin E11.65; Z79.4 Diabetes mellitus buttermaker helper insulin use: with buttermaker helper use Diabetes mellitus complication status: with hyperglycemia Type 2 diabetes mellitus with hyperglycemia, with long-term current use of insulin E11.65; Z79.4 Diabetes mellitus complication status: with hyperglycemia
[2024-09-11 09:42] LABS: Glucose, Whole Blood 195 mg/dL (60-115)
--- OUTSIDE RECORDS SUMMARY | 2024-09-11 09:42 | XMS_ITS | Encounter Summary ---
Author Organization [facility] Address [address] [place] [address] Phone Care Team Providers Care Medical Billing Representative Name Role Phone James Grant MD Primary Care Provider Unav ailable Reason for Visit * Reason Comments Med Refill Encounter Details Date Type Department Care Team (Late st Contact Info) Description 12/14/2022 Refill [facility] [address] [place] [address] Osmany Leung MD Social History [...] on filedocumented in this encounter Care Teams Medical Billing Representative Relationship Specialty Start Date End Date James Grant MD PCP - General 03/23/20 documented as of this encounter
--- OUTSIDE RECORDS SUMMARY | 2024-09-11 09:42 | XMS_ITS | Encounter Summary ---
Author Organization [employer] [employer] [facility] Address [address] [place] [address] Care Team Providers Care Supervisor Fertilizer Processing Name Role Phone James Flores MD Primary Care Provide r Encounter Details Date Type Department Care Team (Late st Contact Info) Description 08/22/2022 Orders Only [facility] [address] [place], [place] [phone] Jaja Hammond LPN Social History Tobacco Use [...] Department Care Team (Late Contact Info) Description 12/10/2024 9:15 AM EDT Office Visit [facility] [address] [place], [place] [phone] James Flores MD [address] [place] [address] documented as of this encounter Visit Diagnoses Not on filedocumented in this encounter Care Teams Supervisor Fertilizer Processing Relationship Specialty Start Date End Date James Flores MD [address] [place] [id number] PCP - General Internal Medicine 02/04/14 documented as of this encounter
--- OUTSIDE RECORDS SUMMARY | 2024-09-11 09:42 | XMS_ITS | Patient Health Record ---
Author Organization [facility] Address [address] [place] [address] Care Team Providers Care Personnel Scheduler Name Role Phone Rudy Ashraf MD, James Primary Care Provide r Unavailable Moris Duron Jr Unavailable Reason For Referral No Information Plan Of Treatment No Information Insurance Providers Payer Name Payer Address Payer Phone Subscriber Number Group Number Insured Name Patient Relationship to Insured Coverage Start Date Coverage End Date MEDICARE OF [place] [address] [place] [id number] [phone] [id number] STEPHANI JOE Self - patient is the insured MEDICAID OF [facility] [address] [place] [address] [id number] STEPHANI JOE Self - patient is the insured
--- OUTSIDE RECORDS SUMMARY | 2024-09-11 09:42 | XMS_ITS ---
Author Name Mr. Arlen Márquez Address [address] [place] [address] Phone [phone] [facility] Care Team Providers Care Scientific Editor Name Role Phone Micah Judge Unavailable [phone] Reason for Referral Not Available Allergies, adverse [...] 2021-11-04 No Data Available OneTouch Delica Plus [id number] Miscellaneous TEST BLOOD SUGAR THREE OR FOUR [...] List Problem Status Onset Date Resolved Date Synopsis Type 2 diabetes mellitus with stage 3b chronic kidney disease Active 2022-07-15 N/A GFR 35 on 06/09/2022HumalogLantusOzem picEd on healthy diet, activity. Avoid nephrotoxic drugs, but patient cannot handle this request due toher health illiteracy. Severe obesity (BMI >= 40) Active 2022-07-15 N/A BMI 40.13Ed re weight reduction.Will have to focus more on this at future FU appt as pt was not understanding much of the conversation. Poor historian Active 2022-07-15 N/A Member not able to accurately describe her medical situation, and seemed to have a very poor understanding of it. History of CVA (cerebrovascular accident) Active 2022-07-15 N/A Seque lae unclearPt unable to describe though unclear if tis was an intellectual problem or 2/2 stroke.Will discuss further Constipation Active 2022-07-12 N/A 2/2 ironOn d ocusateOnFU will suggest use every other day. Difficulty demonstrating health literacy Active 2022-07-12 N/A does not know wh at her medications are for.Will FU when a son or partner or opther caregiver is there in order to make sure she is fully compliant. Encounters Encounters Type Facility Date of Service Diagnosis/Co mplaint No Data Available [facility]2022 Type 2 diabetes mellitus wit h diabetic chronic kidney diseaseChronic kidney disease, stage 3bLong term (current) use of insulinMorbid (severe) obesity due to excess caloriesBody mass index (BMI) 40.0-44.9, adultOther specified health statusConstipation, unspecifiedProblems related to health literacyPrsnl hx of TIA (TIA), and cereb infrc w/o resid deficits No Data Available [facility] [place] 07/12/2022 No Data Available [facility] [place] 07/12/2022 No Data Available [facility] [place] 07/12/2022 No Data Available [facility] [place] 07/12/2022 No Data Available [facility] [place] 07/12/2022 No Data Available [facility] [place] 07/22/2022 Morbid (severe) obesity due to excess caloriesBody mass index (BMI) 40.0-44.9, adultType 2 diabetes mellitus with diabetic chronic kidney diseaseChronic kidney disease, stage 3bPrsnl hx of TIA (TIA), and cereb infrc w/o resid deficitsOther specified health status No Data Available [facility] [place] 07/22/2022 Vital Signs Date of Collection Vitals 2022-07-12 11:38:39 Height - 147.32 cmWe ight - 87.09 kgBody Mass Index (BMI) - 40.13 kg/m2 Social History Sex Female History of Procedures Procedures Service Procedure code Service date Servicing provider Phone# No Data Available [id number] 2022-07-12 No Data Available No Data Available [...] le No Data Available No Data Available [id number] 2022-07-22 No Data Available No Data Available [...] acute or disease education needs that may arise.04/14 ironOn docusateOnFU will suggest use every other [...] modifier 95)Continue to see PCP. Follow-up with [facility] as [...]
== END 2024-09-11 10:00 | disposition home or self-care (01) ==
LOC: HO.ENCR 09:28
PROVIDERS: PCP Internal Medicine; Visit Provider Internal Medicine
DX: E11.65 Type 2 diabetes mellitus with hyperglycemia (principal); Z79.4 Long term (current) use of insulin

== ENCOUNTER → 2024-09-11 09:27 | Outpatient (BNVA) | payer OTHER, SELFPAY | PROVIDERS: PCP Internal Medicine; Visit Provider Internal Medicine | DX: E11.65 Type 2 diabetes mellitus with hyperglycemia (principal); Z79.4 Long term (current) use of insulin | CPT/HCPCS: 82947; 99212 ==

== ENCOUNTER 2024-10-09 10:24 | Outpatient (AMB) | payer OTHER, SELFPAY ==
--- NOTE | 2024-10-09 10:55 | HO.NEPHOV_ITS ---
Vital Signs 10/09/24 11:02 Height 5 ft 1 in Weight 174 lb 8 oz BMI 33.0 BP 110/70 Blood Pressure Location Lt brachial Position Sitting Pulse 75 Pulse Source Pulse Oximeter Pulse Oximetry (%) 98 Oxygen Delivery Method Room Air Intake Visit Reasons: ENP: CKD STG3-Conf w/daughter Manufacturing Quality Manager Required: Yes Manufacturing Quality Manager Language: Computer Analyst Supervisor Services: Manufacturing Quality Manager Offered & Declined ([facility] Manufacturing Quality Manager services refused ) Accompanied by: Daughter Allergies morphine (Morphine) Allergy (Intermediate, Verified 10/09/24 11:01) TACHYCARDIA, ANXIETY oxycodone (Percocet) Allergy (Intermediate, Verified 10/09/24 11:01) Palpitations acetaminophen (From Percocet) Allergy (Verified 10/09/24 11:01) Palpitations prednisone (PREDNISONE) Adverse Reaction (Intermediate, Verified 10/09/24 11:01) ANXIETY HPI Comments Details: I had the privilege of seeing Jayne in consultation for CKD and hypertension. She is 69 years of age who has longstanding diabetes mellitus with neuropathy, hypertension who also had CAD needing PCI and CVA. She is known to have aortic stenosis. She denies any chest pain, shortness of breath or pedal edema. Her hemoglobin A1c has been on the high side. Her BMI is high. She denies any hepatitis, drug use, excessive nonsteroidal anti-inflammatory medication intake, renal calculus, new bone or back pain. Her recent serum creatinine has been 1.52 [facility] Medical History (Updated 10/12/24 @ 15:48 by Matthias Nguyen MD) Primary osteoarthritis of left knee Acute pain of both knees Tinea corporis Tubular adenoma Non-rheumatic aortic stenosis Hemorrhoids Diverticulosis of colon History of CVA (cerebrovascular accident) Hyperkalemia Cobalamin deficiency CKD (chronic kidney disease) Iron deficiency anemia Temporal arteritis Idiopathic peripheral neuropathy Arthritis ELLIE (obstructive sleep apnea) Obesity Abnormal Pap smear of cervix Osteoporosis Goiter Hyperparathyroidism Hypercalcemia Vitamin D deficiency HLD (hyperlipidemia) HTN (hypertension) T2DM (type 2 diabetes mellitus) On beta anurag at home Chronic constipation Diabetes Anemia GERD (gastroesophageal reflux disease) Sleep apnea Asthma CAD (coronary artery disease) Angina pectoris HTN (hypertension) Surgical History Hx of heart artery stent Hx of cholecystectomy History of esophagogastroduodenoscopy (EGD) H/O colonoscopy Family History Father Liver problem Mother Diabetes Obesity Social History Household Members Other:: With Housing: House Alcohol intake: never Patient Tobacco Use Status: Never used Tobacco Current occupational status: disabled Sexual orientation: Straight/Heterosexual Gender identity: Female Review of Systems Const All systems reviewed & are unremarkable except as noted in HPI and below Physical Exam Vital Signs: Last Vital Signs Pulse 75 10/09/24 11:02 BP 110/70 10/09/24 11:02 Pulse Ox 98 10/09/24 11:02 Oxygen Delivery Method Room Air 10/09/24 11:02 BMI result Body Mass Index 33.0 Const General: comfortable and no acute distress Orientation/consciousness: patient oriented x3 HEENT Head: Yes normocephalic Mouth: Normal oral and palatal mucosa present Eyes EOM: EOMs intact bilaterally Neck Neck: Yes supple Resp Auscultation: clear to auscultation bilaterally Cardio Jugular venous distension: no JVD Rate: regular rate Heart sounds: Murmur heart sound present GI Palpation (GI): Soft to palpation Auscultation: normal bowel sounds General: Yes no CVA tenderness Back/Spine/Pelvis Back: no CVA tenderness Skin General skin exam: no rashes or lesions noted Neuro General: patient oriented x3 and moves all extremities Extrem General: Yes no pedal edema Results Reviewed Nephrology Results: Hgb, (12.0-16.0) 11.0 g/dl L 08/25/24 WBC, (4.8-10.8) 7.6 X10*3/uL 08/25/24 Plt Count, (160-400) 197 X10*3/uL 08/25/24 Sodium, (135-145) 143 mmol/L 08/25/24 Potassium, (3.3-5.1) 4.8 mmol/L 08/25/24 Chloride, (96-108) 106 mmol/L 08/25/24 Carbon Dioxide, (22-29) 29 mmol/L 08/25/24 BUN, (9-16) 36 mg/dL H 08/25/24 Creatinine, (0.5-1.4) 1.52 mg/dL H 08/25/24 Calcium, (8.4-10.2) 10.2 mg/dL 08/25/24 PTH Intact, (8.7-77.1) 52.7 pg/mL 08/07/24 Urine Protein, (Neg-Trace) 100 (2+) mg/dL H 08/25/24 Renal US 06/16/23 Assessment & Plan Assessment & Plan (1) CKD stage 3a, GFR 45-59 ml/min: Code(s): N18.31 - Chronic kidney disease, stage 3a Category: Medical (2) HTN (hypertension): Code(s): I10 - Essential (primary) hypertension Category: Medical Qualifiers: Hypertension type: unspecified Qualified Code(s): I10 - Essential (primary) hypertension (3) Diabetic nephropathy: Code(s): E11.21 - Type 2 diabetes mellitus with diabetic nephropathy Category: Medical Qualifiers: Diabetes mellitus type: type 2 Qualified Code(s): E11.21 - Type 2 diabetes mellitus with diabetic nephropathy Plan Jayne has CKD 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 She has high BMI. She has proteinuria. Her blood sugar needs to be better controlled. Her blood pressure needs to be maintained at less than 130/80 mmHg. I have ordered detailed workup including imaging studies. Depending on evolving data she may need a renal biopsy. I plan to add SGLT2 inhibitor and maximize the dose of it along with introduction of ROMI inhibitor. She should avoid nonsteroidal anti-inflammatories and maintain good hydration. She is on Ozempic. She needs to lose more weight. Further management is pending evolving data. Answered all questions and follow-up was given. Orders: Orders Anti DNA DS Antibody 1 Month E11.21 - Type 2 diabetes mellitus with diabetic nephropathy, I10 - Essential (primary) hypertension, N18.31 - Chronic kidney disease, stage 3a Myeloperoxidase Antibody 1 Month E11.21 - Type 2 diabetes mellitus with diabetic nephropathy, I10 - Essential (primary) hypertension, N18.31 - Chronic kidney disease, stage 3a Proteinase 3 PR3 Antibodies 1 Month E11.21 - Type 2 diabetes mellitus with diabetic nephropathy, I10 - Essential (primary) hypertension, N18.31 - Chronic kidney disease, stage 3a Immunofixation Pnl, Serum 1 Month E11.21 - Type 2 diabetes mellitus with diabetic nephropathy, I10 - Essential (primary) hypertension, N18.31 - Chronic kidney disease, stage 3a Complement C3 1 Month E11.21 - Type 2 diabetes mellitus with diabetic nephropathy, I10 - Essential (primary) hypertension, N18.31 - Chronic kidney disease, stage 3a Complement C4 1 Month E11.21 - Type 2 diabetes mellitus with diabetic nephropathy, I10 - Essential (primary) hypertension, N18.31 - Chronic kidney disease, stage 3a Hepatitis B Core Antibody 1 Month E11.21 - Type 2 diabetes mellitus with diabetic nephropathy, I10 - Essential (primary) hypertension, N18.31 - Chronic kidney disease, stage 3a Calcium 1 Month E11.21 - Type 2 diabetes mellitus with diabetic nephropathy, I10 - Essential (primary) hypertension, N18.31 - Chronic kidney disease, stage 3a US renal doppler 1 Month E11.21 - Type 2 diabetes mellitus with diabetic nephropathy, I10 - Essential (primary) hypertension, N18.31 - Chronic kidney disease, stage 3a Protein Creatinine Ratio, Ur 1 Month E11.21 - Type 2 diabetes mellitus with diabetic nephropathy, I10 - Essential (primary) hypertension, N18.31 - Chronic kidney disease, stage 3a Anti Glomerular Basement Memb 1 Month E11.21 - Type 2 diabetes mellitus with diabetic nephropathy, I10 - Essential (primary) hypertension, N18.31 - Chronic kidney disease, stage 3a Phospholipase A2 Receptor Pnl 1 Month E11.21 - Type 2 diabetes mellitus with diabetic nephropathy, I10 - Essential (primary) hypertension, N18.31 - Chronic kidney disease, stage 3a Hepatitis B Surface Antigen 1 Month E11.21 - Type 2 diabetes mellitus with diabetic nephropathy, I10 - Essential (primary) hypertension, N18.31 - Chronic kidney disease, stage 3a Electrolytes 1 Month E11.21 - Type 2 diabetes mellitus with diabetic nephropathy, I10 - Essential (primary) hypertension, N18.31 - Chronic kidney disease, stage 3a Blood Urea Nitrogen 1 Month E11.21 - Type 2 diabetes mellitus with diabetic nephropathy, I10 - Essential (primary) hypertension, N18.31 - Chronic kidney disease, stage 3a Creatinine 1 Month E11.21 - Type 2 diabetes mellitus with diabetic nephropathy, I10 - Essential (primary) hypertension, N18.31 - Chronic kidney disease, stage 3a Immunofixation, Random Urine 1 Month E11.21 - Type 2 diabetes mellitus with diabetic nephropathy, I10 - Essential (primary) hypertension, N18.31 - Chronic kidney disease, stage 3a US renal BI 1 Month E11.21 - Type 2 diabetes mellitus with diabetic nephropathy, I10 - Essential (primary) hypertension, N18.31 - Chronic kidney disease, stage 3a Coding Level of Care Code New Pt Level 4 (40827) Diagnoses CKD stage 3a, GFR 45-59 ml/min N18.31 Hypertension, unspecified type I10 Hypertension type: unspecified Diabetic nephropathy associated with type 2 diabetes mellitus E11.21 Diabetes mellitus type: type 2
[2024-10-09 11:02] VITALS: BP 110/70; PULSE 75; O2SAT 98; BMI 33.0
--- OUTSIDE RECORDS SUMMARY | 2024-10-09 11:16 | XMS_ITS | Encounter Summary ---
Author Organization [facility] Address [address] [place] [address] Phone Care Team Providers Care Pressure Tank Operator Name Role Phone James Trimble MD Primary Care Provide r Encounter Details Date Type Department Care Team (Late st Contact Info) Description 01/25/2021 Procedure Pass [facility], Ct Scan - [address] [address] Social History Tobacco Use Types Packs/Day Years Used Date Smoking Tobacco: Never Smokeless Tobacco: Never Alcohol Use Standard Drinks/Week Comments No 0 (1 standard drink = 0.6 oz pur e alcohol) Comments No Sex and Gender Information Value Date Recorded Sex Assigned at Female 07/09/2017 11:56 AM EDT Legal Sex Female 9:55 PM EDT Gender Identity Female 07/09/2017 11:56 AM EDT Sexual Orientation Straight 09/09/2017 5: 47 PM EDT documented as of this encounter Functional Status * Calculated C-SSRS Risk Score (Lifetime/Recent) Answer Date of Assessment Author No Risk Indicated 01/25/2021 12:53 PM Corinne Rodriguez, LISA * [place] Suicide Severity Rating Scale (Screener/Recent Self-Report) Question Answer Date of Assessment Author 1. Wish to be (Past 1 Month) No 021 12:53 PM Corinne Rodriguez, RN 2. Non-Specific Active Suici taylor Thoughts (Past 1 Month) No 01/25/2021 12:53 PM Malathi Rodriguez RN 6. Suicidal Behavior (Lifetime) No 12:53 PM Corinne Rodriguez, RN documented as of this encounter Plan of Treatment Not on file documented as of this encounter Visit Diagnoses Not on filedocumented in this encounter Additional Health Concerns Infection Onset Date Last Indicated Resolved Time CoV-Risk 05/22/2021 05/22/2021 06/02/2021 1:23 AM EDT CoV-Risk Comment:Per note documentation 06/26/2021 06/26/2021 1:48 PM EDT CoV-Risk 12/17/2022 12/17/2022 12/28/2022 1:23 AM EDT CoV-Risk 01/28/2023 01/28/2023 02/08/2023 1:22 AM EST CoV-Risk 07/01/2023 07/03/2023 07/14/2023 1:21 AM EDT Influenza A 07/03/2023 07/03/2023 07/10/2023 1:22 AM EDT documented as of this encounter Care Teams Pressure Tank Operator Relationship Specialty Start Date End Date James Trimble MD [address] [place] [address] [place] [phone] PCP - General 03/16/17 documented as of this encounter Additional Source Comments The information contained in this document represents components of the legal health record. It is not the complete legal health record.[facility]
--- OUTSIDE RECORDS SUMMARY | 2024-10-09 11:16 | XMS_ITS ---
Author Name Mr. Arlen Márquez Address [address] [place] [address] Phone [phone] [facility] Care Team Providers Care Solid Tire Finisher Name Role Phone Micah Judge Unavailable [phone] Reason for Referral Not Available Allergies, adverse [...] 2021-11-04 No Data Available OneTouch Delica Plus [id number] Miscellaneous TEST BLOOD SUGAR THREE OR FOUR [...] mplaint No Data Available [facility], ([place]) 07/12/2022 Type 2 diabetes mellitus wit h diabetic chronic kidney diseaseChronic kidney disease, stage 3bLong term (current) use of insulinMorbid (severe) obesity due to excess caloriesBody mass index (BMI) 40.0-44.9, adultOther specified health statusConstipation, unspecifiedProblems related to health literacyPrsnl hx of TIA (TIA), and cereb infrc w/o resid deficits No Data Available [facility]20[place] No Data Available [facility] No Data Available [facility] No Data Available [facility] No Data Available [facility] No Data Available [facility]20[place] Morbid (severe) obesity due to excess caloriesBody mass index (BMI) 40.0-44.9, adultType 2 diabetes mellitus with diabetic chronic kidney diseaseChronic kidney disease, stage 3bPrsnl hx of TIA (TIA), and cereb infrc w/o resid deficitsOther specified health status No Data Available [facility] 07/[place]20[place] Vital Signs Date of Collection Vitals 2022-07-12 11:38:39 Height - 147.32 cmWe ight - 87.09 kgBody Mass Index (BMI) - 40.13 kg/m2 Social History Sex Female History of Procedures Procedures Service Procedure code Service date Servicing provider Phone# No Data Available [id number] 2022-07-12 No Data Available No Data Available [...] le No Data Available No Data Available [id number] 2022-07-22 No Data Available No Data Available [...]
--- OUTSIDE RECORDS SUMMARY | 2024-10-09 11:17 | XMS_ITS | Patient Health Record ---
Author Organization [facility] Address [address] [place] [address] Care Team Providers Care Paradichlorobenzene Machine Operator Name Role Phone Rudy Ashraf MD, James Primary Care Provide r Unavailable Moris Duron Jr Unavailable Reason For Referral No Information Plan Of Treatment No Information Insurance Providers Payer Name Payer Address Payer Phone Subscriber Number Group Number Insured Name Patient Relationship to Insured Coverage Start Date Coverage End Date MEDICARE OF [place] [address] [place] [id number] STEPHANI JOE Self - patient is the insured MEDICAID OF [facility] [address] [place] [address] [id number] STEPHANI JOE Self - patient is the insured
--- OUTSIDE RECORDS SUMMARY | 2024-10-09 11:17 | XMS_ITS | Encounter Summary ---
Author Organization [facility] Address [address] [place] [address] Phone Care Team Providers Care Char Conveyor Tender Cellar Name Role Phone James Grant MD Primary Care Provider Unav ailable Reason for Visit * Reason Comments Med Refill Encounter Details Date Type Department Care Team (Late st Contact Info) Description 12/14/2022 Refill [facility] [address] [place] [address] Osmany Leung MD Social History [...] on filedocumented in this encounter Care Teams Char Conveyor Tender Cellar Relationship Specialty Start Date End Date James Grant MD PCP - General 03/23/20 documented as of this encounter
== END 2024-10-09 11:25 | disposition home or self-care (01) ==
LOC: HO.HKA 10:25
PROVIDERS: PCP Internal Medicine; Visit Provider Internal Medicine Nephrology
DX: N18.31 Chronic kidney disease, stage 3a (principal); I10 Essential (primary) hypertension; E11.21 Type 2 diabetes mellitus with diabetic nephropathy
CPT/HCPCS: 99204

== ENCOUNTER → 2024-10-09 10:24 | Outpatient (BNVA) | payer OTHER, SELFPAY | PROVIDERS: PCP Internal Medicine; Visit Provider Internal Medicine Nephrology | DX: N18.31 Chronic kidney disease, stage 3a (principal); I10 Essential (primary) hypertension; E11.21 Type 2 diabetes mellitus with diabetic nephropathy | CPT/HCPCS: 99202 ==

== ENCOUNTER 2024-10-21 10:12 | Outpatient (RCR) | payer OTHER, SELFPAY ==
--- NOTE | 2024-08-22 14:13 | MHC.PT.EP ---
[facility] [place] Office [place] Office [place] Office [address] Yazmin Cutler [address] [phone] F: [phone] F: [phone] F: [phone] F: [phone] Physical Therapy Plan of Care Date of Evaluation: 08/21/24 Date of Surgery: Diagnosis: bilateral knee osteoarthritis (RS) Assessment: Jayne is a pleasant 69 y.o. Luxembourgish speaking female, attends with her daughter, who is referred to PT by Zac Su PA-C with Dx of BILATERAL knee osteoparthritis. Patient impairments include poor, impaired, antalgic gait pattern, limited knee ROM, weakness in bilateral hips, knees, and ankles, swelling with pitting edema in LEs. Patient current functional limitations are difficulty with ascend/descend stairs, ambulating long distances, standing prolonged time, bending. Patient will benefit from skilled PT to address aforementioned impairments and functional limitations to meet established goals. Frequency and Duration: The patient will be seen 2x/week for 4 weeks Short Term Goals: 2 weeks Patient demonstrates consistency and independence with HEP to self manage symptoms. Value Stream Leader Goals: 4 weeks Patient presents with increased R knee flexion to 115 degrees to perform sit to stand from low surfaces in home. Patient presents with increased R quad strength 4/5 to be able to ascend/descend stairs with railing to get to bathroom/bedroom in home. Treatment Plan: Modalities to reduce pain, spasms and effusion. Manual therapy to restore motion and function. Therapeutic exercise to improve strength and flexibility. Neuromuscular re-education for posture and balance. Therapeutic activities to return to functional activities of daily living. Electronically signed by: Serge Gardner, PT, DPT Please sign and return to therapist. Thank you for your referral.
--- NOTE | 2024-11-29 10:07 | MHC.PT.DC ---
[facility] [place] Office [place] Office [place] Office [address] Jace Cutler [address] [phone] F: [phone] F: [phone] F: [phone] F: [phone] Physical Therapy Discharge Report Diagnosis: bilateral knee osteoarthritis (RS) Date of Surgery: Date of Evaluation: 08/21/24 Date of Discharge: 11/29/24 Treatments to Date: 12 Cancellations to Date: 2 No Shows to Date: 1 Discharge Status: Improved Function Independent with HEP Patient Elected to Stop Discharge Summary: Jayne Lane did well with PT interventions focused on knee ROM, strengthening of LE, gait training and working on functional mobility, use of modalities as needed. She showed independence with HEP. She did not show to her last scheduled visit and is therefore discharged from PT. Electronically signed by: Serge Gardner, PT, DPT Please sign and return to therapist. Thank you for your referral.
== END 2024-11-29 10:07 | disposition home or self-care (01) ==
LOC: HO.PT 10:12
PROVIDERS: PCP Internal Medicine; Visit Provider Physician Assistant
DX: M17.0 Bilateral primary osteoarthritis of knee (principal)
CPT/HCPCS: 97110; 97116; 97162; 97530

== ENCOUNTER 2024-10-23 10:02 | Outpatient (AMB) | payer MEDICARE, SELFPAY ==
[2024-10-23 10:03] VITALS: BP 132/70; PULSE 75; O2SAT 96; BMI 32.9
--- NOTE | 2024-10-23 10:03 | A.OFFVIS_ITS ---
Vital Signs 10/23/24 10:03 Height 5 ft 1 in Weight 174 lb 2.643 oz BMI 32.9 BP 132/70 Blood Pressure Location Rt brachial Position Sitting Pulse 75 Pulse Source Pulse Oximeter Pulse Oximetry (%) 96 Oxygen Delivery Method Room Air Intake Visit Reasons: Osteoporosis/Hyperparathyroidism Intake Note: Patient present today for Osteoporosis and Hyperparathyroidism follow up. L Fundraising Director Required: Yes Fundraising Director Language: Cartoon Animator Services: Fundraising Director Offered & Declined Accompanied by: Self / Same As Patient Allergies morphine (Morphine) Allergy (Intermediate, Verified 10/23/24 10:04) TACHYCARDIA, ANXIETY oxycodone (Percocet) Allergy (Intermediate, Verified 10/23/24 10:04) Palpitations acetaminophen (From Percocet) Allergy (Verified 10/23/24 10:04) Palpitations prednisone (PREDNISONE) Adverse Reaction (Intermediate, Verified 10/23/24 10:04) ANXIETY Medication List - Last Reconciled 10/23/24 by Zev Phan MD acetaminophen ER (Tylenol Arthritis Pain) 650 mg PO Q12H PRN albuterol sulfate 90 mcg/actuation (Ventolin HFA) 2 puffs inhalation Q4-6H PRN amlodipine 5 mg PO DAILY blood-glucose,cranberry grower,cont (FreeStyle Collin 3 [place]) As directed calcium citrate-vitamin D3 200 mg-6.25 mcg (250 unit) 2 tabs PO DAILY calcium polycarbophil (Fiber-Lax) 1,250 mg (2 x 625 mg) PO QAM celecoxib (Celebrex) 200 mg PO BID 30 days cholecalciferol (vitamin D3) (Vitamin D3) 25 mcg PO QAM clopidogrel 75 mg PO DAILY docusate sodium (Stool Softener) 200 mg (2 x 100 mg) PO BEDTIME ezetimibe 10 mg PO QAM ferrous sulfate 325 mg PO TID FreeStyle Collin 3 Plus Sensor (blood-glucose sensor) every 15 days NS FreeStyle Collin 3 Plus Sensor (blood-glucose sensor) every 15 days NS insulin glargine (Lantus Solostar U-100 Insulin) 38 units subcut BEDTIME insulin lispro (Humalog KwikPen (U-100) Insulin) Sliding Scale 6-16 subcutaneously 3 times a day; lancets As directed lancets (TRUEplus Lancets) As directed to test blood sugar 3-4 times a day loratadine 10 mg PO QAM metoprolol tartrate 50 mg PO BID OneTouch Verio Flex meter (blood-glucose meter) As directed NS OneTouch Verio test strips (blood sugar diagnostic) TEST BLOOD SUGAR FOUR TIMES DAILY NS Ozempic (semaglutide) 1 mg (0.75 mL) subcut QWEEK NS pen needle, diabetic As directed pioglitazone 30 mg PO QAM HPI Comments Details: This is a 69-year-old female followed by endocrinology for management of hypercalcemia . Today's visit focus is around hypercalcemia. In the past, patient had elevated calcium levels with elevation in PTH. Further workup revealed low bone mass but isolated forearm osteoporosis which has been stable. 24 hour urine collection was quite low suggesting the possibility of FHH. However, there is no family history and calcium levels have fluctuated from normal since 2021 making the diagnosis of FHH unlikely No additional symptoms linked to hyperparathyroidism, such as kidney stones or neuropsychiatric changes, have been reported. Recent labs showed high normal calcium with normal PTH. DEXA bone density has shown isolated osteoporosis in the forearm. No Fx or kidney stones since last visit PFSH Medical History Primary osteoarthritis of left knee Acute pain of both knees Tinea corporis Tubular adenoma Non-rheumatic aortic stenosis Hemorrhoids Diverticulosis of colon History of CVA (cerebrovascular accident) Hyperkalemia Cobalamin deficiency CKD (chronic kidney disease) Iron deficiency anemia Temporal arteritis Idiopathic peripheral neuropathy Arthritis ELLIE (obstructive sleep apnea) Obesity Abnormal Pap smear of cervix Osteoporosis Goiter Hyperparathyroidism Hypercalcemia Vitamin D deficiency HLD (hyperlipidemia) HTN (hypertension) T2DM (type 2 diabetes mellitus) On beta anurag at home Chronic constipation Diabetes Anemia GERD (gastroesophageal reflux disease) Sleep apnea Asthma CAD (coronary artery disease) Angina pectoris HTN (hypertension) Surgical History Hx of heart artery stent Hx of cholecystectomy History of esophagogastroduodenoscopy (EGD) H/O colonoscopy Family History Father Liver problem Mother Diabetes Obesity Social History Household Members Other:: With Housing: House Alcohol intake: never Patient Tobacco Use Status: Never used Tobacco Current occupational status: disabled Sexual orientation: Straight/Heterosexual Gender identity: Female Physical Exam Vital Signs: Last Vital Signs Pulse 75 10/23/24 10:03 BP 132/70 10/23/24 10:03 Pulse Ox 96 10/23/24 10:03 Oxygen Delivery Method Room Air 10/23/24 10:03 BMI result Body Mass Index 32.9 Assessment & Plan Assessment & Plan (1) Hypercalcemia: Code(s): E83.52 - Hypercalcemia Category: Medical Plan: This 69-year-old female with chronically elevated mild hypercalcemia as well as intermittently elevated PTH levels. Possible etiologies include spurious elevation due to lab error, mild primary hyperparathyroidism with cortical bone involvement in the wrist or less likely FHH. More recently, calcium was high normal with normal PTH. At this point, there is no need for any further endocrine workup or follow up with the patient returned back to the care of her primary care provider. Primary care provider should measure the repeat bone density in 2 years. If there was progression to osteoporosis in the hip or spine or recurrence of significant hypercalcemia with Ca>10.5 , the patient returned back to endocrinology. If calcium is significantly elevated, it should be repeated on an outside lab ie [facility] ( [facility]) to ensure it is not a laboratory error Coding Level of Care Code Est Pt Level 3 (60007) Diagnoses Hypercalcemia E83.52
--- OUTSIDE RECORDS SUMMARY | 2024-10-23 10:40 | XMS_ITS | Encounter Summary ---
Author Organization [facility] Address [address] [place] [address] Phone Care Team Providers Care Railroad Shop Inspector Name Role Phone James Grant MD Primary Care Provider Unav ailable Reason for Visit * Reason Comments Med Refill Encounter Details Date Type Department Care Team (Late st Contact Info) Description 12/14/2022 Refill [facility] [address] [place] [address] Osmany Leung MD Social History [...] on filedocumented in this encounter Care Teams Railroad Shop Inspector Relationship Specialty Start Date End Date James Grant MD PCP - General 03/23/20 documented as of this encounter
--- OUTSIDE RECORDS SUMMARY | 2024-10-23 10:40 | XMS_ITS | Encounter Summary ---
Author Organization [facility] Address [address] [facility] 7t [place] [address] Care Team Providers Care Recorder Of Deeds Name Role Phone James Flores MD Primary Care Provide r Encounter Details Date Type Department Care Team (Late st Contact Info) Description 08/22/2022 Orders Only [facility] CHC MED & PEDS [address] [place], [place] [phone] Jaja Hammond LPN Social History Tobacco Use [...] Description 12/10/2024 9:15 AM EDT Office Visit [facility] MEDICINE [address] [place], [place] [phone] James Flores MD [address] [place] [address] documented as of this encounter Visit Diagnoses Not on filedocumented in this encounter Care Teams Recorder Of Deeds Relationship Specialty Start Date End Date James Flores MD [address] [place] [address] PCP - General Internal Medicine 02/04/14 documented as of this encounter
--- OUTSIDE RECORDS SUMMARY | 2024-10-23 10:40 | XMS_ITS | Patient Health Record ---
Author Organization [facility] Address [address] [place] [address] Care Team Providers Care Industrial Rehabilitation Consultant Name Role Phone Rudy Ashraf MD, James Primary Care Provide r Unavailable Moris Duron Jr Unavailable Reason For Referral No Information Plan Of Treatment No Information Insurance Providers Payer Name Payer Address Payer Phone Subscriber Number Group Number Insured Name Patient Relationship to Insured Coverage Start Date Coverage End Date MEDICARE OF [place] [address] [place] [id number] STEPHANI JOE Self - patient is the insured MEDICAID OF [facility] [address] [place] [address] [id number] STEPHANI JOE Self - patient is the insured
--- OUTSIDE RECORDS SUMMARY | 2024-10-23 10:40 | XMS_ITS ---
Author Name Mr. Arlen Márquez Address [address] [place] [address] Phone [phone] [facility] Care Team Providers Care Business Education Professor Name Role Phone Micah Judge Unavailable [phone] Reason for Referral Not Available Allergies, adverse [...] 2021-11-04 No Data Available OneTouch Delica Plus [id number] Miscellaneous TEST BLOOD SUGAR THREE OR FOUR [...] of Service Diagnosis/Co mplaint No Data Available [facility], ([place]) 07/12/2022 Type 2 diabetes mellitus wit h diabetic chronic kidney diseaseChronic kidney disease, stage 3bLong term (current) use of insulinMorbid (severe) obesity due to excess caloriesBody mass index (BMI) 40.0-44.9, adultOther specified health statusConstipation, unspecifiedProblems related to health literacyPrsnl hx of TIA (TIA), and cereb infrc w/o resid deficits No Data Available [facility] 07[place]2022 No Data Available [facility]20[place] No Data Available [facility]20[place] No Data Available [facility]20[place] No Data Available [facility]2022 No Data Available [facility] 07[place]2022 Morbid (severe) obesity due to excess caloriesBody mass index (BMI) 40.0-44.9, adultType 2 diabetes mellitus with diabetic chronic kidney diseaseChronic kidney disease, stage 3bPrsnl hx of TIA (TIA), and cereb infrc w/o resid deficitsOther specified health status No Data Available [facility] 07/[place]/2022 Vital Signs Date of Collection Vitals 2022-07-12 11:38:39 Height - 147.32 cmWe ight - 87.09 kgBody Mass Index (BMI) - 40.13 kg/m2 Social History Sex Female History of Procedures Procedures Service Procedure code Service date Servicing provider Phone# No Data Available [id number] 2022-07-12 No Data Available No Data Available [...] le No Data Available No Data Available [id number] 2022-07-22 No Data Available No Data Available [...]
== END 2024-10-23 11:04 | disposition home or self-care (01) ==
LOC: HO.ENCR 10:02
PROVIDERS: PCP Internal Medicine; Visit Provider Internal Medicine Endocrinology, Diabetes & Metabolism
DX: E83.52 Hypercalcemia (principal)
CPT/HCPCS: 99213

== ENCOUNTER → 2024-10-23 10:02 | Outpatient (BNVA) | payer OTHER, SELFPAY | PROVIDERS: PCP Internal Medicine; Visit Provider Internal Medicine Endocrinology, Diabetes & Metabolism | DX: E83.52 Hypercalcemia (principal); M81.0 Age-related osteoporosis without current pathological fracture | CPT/HCPCS: 99212 ==

== ENCOUNTER 2024-10-31 10:04 | Outpatient (REF) | payer MEDICARE, SELFPAY ==
--- NOTE | ~2024-10-31 | XR_ITS ---
EXAMINATION: XR FOOT, LEFT CLINICAL INFORMATION: pain after near fall COMPARISON: None available. TECHNIQUE: AP, lateral, and oblique views of the left foot. FINDINGS: There is osteopenia. There is hallux valgus deformity. There are marginal sites along the lateral first MTP joint. The joint spaces preserved. There is a cortical step-off involving the lateral metadiaphysis of the fifth proximal phalanx. There is soft tissue swelling in the same region. There are moderate enthesophytes involving the plantar fascia and Achilles attachment onto calcaneus. Atherosclerotic calcifications are present. XR/XR foot LT min 3V IMPRESSION: Hallux valgus deformity with mild osteoarthritis of the first MTP joint. Age-indeterminate fracture of the central diaphysis of the fifth proximal phalanx. Calcaneal spurs. Electronically signed by: Carlos Macias MD 10/31/2024 10:25 AM EDT
--- OUTSIDE RECORDS SUMMARY | 2024-10-31 11:30 | XMS_ITS | Encounter Summary ---
Author Organization [facility] Address [address] [facility] 7[address] [place] [address] Care Team Providers Care Plumber Supervisor Name Role Phone James Flores MD Primary Care Provide r Encounter Details Date Type Department Care Team (Late st Contact Info) Description 08/22/2022 Orders Only [facility] CHC MED & PEDS [address] [place], [place] [phone] Jaja Hammond LPN Social History Tobacco Use [...] Description 12/10/2024 9:15 AM EDT Office Visit [facility] MED[facility]INE [address] [place], [place] [phone] James Flores MD [address] [place] [address] documented as of this encounter Visit Diagnoses Not on filedocumented in this encounter Care Teams Plumber Supervisor Relationship Specialty Start Date End Date James Flores MD [address] [place] [address] PCP - General Internal Medicine 02/04/14 documented as of this encounter
--- OUTSIDE RECORDS SUMMARY | 2024-10-31 11:30 | XMS_ITS ---
Author Name Mr. Arlen Márquez Address [address] [place] [address] Phone [phone] [facility] Care Team Providers Care Defense Travel Administrator Name Role Phone Micah Judge Unavailable [phone] Reason for Referral Not Available Allergies, adverse [...] 2021-11-04 No Data Available OneTouch Delica Plus [id number] Miscellaneous TEST BLOOD SUGAR THREE OR FOUR [...] of Service Diagnosis/Co mplaint No Data Available [facility], ([place]) 07/12/2022 Type 2 diabetes mellitus wit h diabetic chronic kidney diseaseChronic kidney disease, stage 3bLong term (current) use of insulinMorbid (severe) obesity due to excess caloriesBody mass index (BMI) 40.0-44.9, adultOther specified health statusConstipation, unspecifiedProblems related to health literacyPrsnl hx of TIA (TIA), and cereb infrc w/o resid deficits No Data Available [facility] 07[place]20[place] No Data Available [facility] No Data Available [facility] No Data Available [facility] No Data Available [facility]20[place] No Data Available [facility]2022 Morbid (severe) obesity due to excess caloriesBody mass index (BMI) 40.0-44.9, adultType 2 diabetes mellitus with diabetic chronic kidney diseaseChronic kidney disease, stage 3bPrsnl hx of TIA (TIA), and cereb infrc w/o resid deficitsOther specified health status No Data Available [facility] 07[place]20[place] Vital Signs Date of Collection Vitals 2022-07-12 11:38:39 Height - 147.32 cmWe ight - 87.09 kgBody Mass Index (BMI) - 40.13 kg/m2 Social History Sex Female History of Procedures Procedures Service Procedure code Service date Servicing provider Phone# No Data Available [id number] 2022-07-12 No Data Available No Data Available [...] le No Data Available No Data Available [id number] 2022-07-22 No Data Available No Data Available [...]
--- OUTSIDE RECORDS SUMMARY | 2024-10-31 11:30 | XMS_ITS | Encounter Summary ---
Author Organization [facility] Address [address] [facility] [address] [place] [address] Phone Care Team Providers Care Screen Printing Equipment Setter Name Role Phone James Trimble MD Primary Care Provide r Encounter Details Date Type Department Care Team (Late st Contact Info) Description 01/25/2021 Procedure Pass [facility], Ct Scan - [address] [address] Social History Tobacco Use Types Packs/Day Years [...] 01/25/2021 12:53 PM Corinne Rodriguez, LISA * [place] Suicide Severity Rating Scale (Screener/Recent Self-Report) Question [...] documented as of this encounter Care Teams Screen Printing Equipment Setter Relationship Specialty Start Date End Date James Trimble MD [address] [place] [address] [place] [phone] PCP - General 03/16/17 documented as of this encounter Additional Source Comments The information contained in this document represents components of the legal health record. It is not the complete legal health record.[facility]
--- OUTSIDE RECORDS SUMMARY | 2024-10-31 11:31 | XMS_ITS | Encounter Summary ---
Author Organization [facility] Address [address] [place] [address] Phone Care Team Providers Care Vector Control Assistant Name Role Phone James Grant MD Primary Care Provider Unav ailable Reason for Visit * Reason Comments Med Refill Encounter Details Date Type Department Care Team (Late st Contact Info) Description 12/14/2022 Refill [facility] [address] [place] [address] Osmany Leung MD Social History [...] on filedocumented in this encounter Care Teams Vector Control Assistant Relationship Specialty Start Date End Date James Grant MD PCP - General 03/23/20 documented as of this encounter
--- OUTSIDE RECORDS SUMMARY | 2024-10-31 11:31 | XMS_ITS | Patient Health Record ---
Author Organization [facility] Address [address] [place] [address] Care Team Providers Care Counseling Aide Name Role Phone Rudy Ashraf MD, James Primary Care Provide r Unavailable Moris Duron Jr Unavailable Reason For Referral No Information Plan Of Treatment No Information Insurance Providers Payer Name Payer Address Payer Phone Subscriber Number Group Number Insured Name Patient Relationship to Insured Coverage Start Date Coverage End Date MEDICARE OF [place] [address] [place] [id number] STEPHANI JOE Self - patient is the insured MEDICAID OF [facility] [address] [place] [address] [id number] STEPHANI JOE Self - patient is the insured
[2024-10-31 11:45] LABS: Hemoglobin A1C 175.4245 umol/L; Total Hemoglobin (HGBA1C) 2901.9392 umol/L
[2024-10-31 12:03] LABS: Alanine Aminotransferase 17 U/L (0-31); Albumin Level 4.4 g/dL (3.5-5.0); Alkaline Phosphatase 57 U/L (39-117); Anion Gap 12 (12-20); Aspartate Amino Transferase 29 U/L (5-31); Blood Urea Nitrogen 26 mg/dL (9-16); Calcium 10.0 mg/dL (8.4-10.2); Carbon Dioxide 29 mmol/L (22-29); Chloride 106 mmol/L (96-108); Cholesterol 139 mg/dL (<200); Estimated Glomerular Filt Rate 38; HDL Cholesterol 43 mg/dL (>40); Potassium 4.2 mmol/L (3.3-5.1); Sodium 143 mmol/L (135-145); Total Protein 7.1 g/dL (6.5-8.0); Triglycerides 126 mg/dL (<150)
[2024-10-31 12:09] LABS: Protein/Creatinine Ratio, Ur 0.43 (<0.2); Total Protein Urine Random 58 mg/dL (<12)
[2024-10-31 13:43] LABS: HBc Num1 0.19 S/CO (0.00-0.79); HBsAGNum1 0.50 S/CO (0.00-0.99); Hepatitis B Surface Antigen Negative (Negative)
[2024-11-01 13:53] LABS: Anti Glomerular Basement Memb <1.0 AI; Proteinase 3 PR3 Antibodies <1.0 AI
[2024-11-07 22:04] LABS: Phospholipase A2 IgG ELISA <4 RU/mL; Phospholipase A2 IgG IFA NEGATIVE (NEGATIVE)
== END 2024-10-31 10:05 | disposition home or self-care (01) ==
LOC: HO.HHCX 10:04
PROVIDERS: Emergency Medicine; Internal Medicine; Internal Medicine Nephrology; PCP Internal Medicine; Visit Provider Internal Medicine
DX: M79.675 Pain in left toe(s) (principal); I12.9 Hypertensive chronic kidney disease with stage 1 through stage 4 chronic kidney disease, or unspecified chronic kidney disease; N18.31 Chronic kidney disease, stage 3a; E11.65 Type 2 diabetes mellitus with hyperglycemia; R51.9 Headache, unspecified; Z79.4 Long term (current) use of insulin; E11.22 Type 2 diabetes mellitus with diabetic chronic kidney disease; Z01.84 Encounter for antibody response examination; Z11.59 Encounter for screening for other viral diseases
CPT/HCPCS: 36415; 73630; 80053; 80061; 82570; 82784; 83036; 83520; 84156; 86021; 86140; 86160; 86225; 86255; 86334; 86335; 86704; 87340

== ENCOUNTER → 2024-10-31 10:10 | Outpatient (BNV) | payer MEDICARE, SELFPAY | PROVIDERS: PCP Internal Medicine; Visit Provider Radiology Diagnostic Radiology | DX: M20.12 Hallux valgus (acquired), left foot (principal); M77.32 Calcaneal spur, left foot | CPT/HCPCS: 73630 ==

== ENCOUNTER 2024-11-04 11:04 | Outpatient (REF) | payer MEDICARE, SELFPAY ==
--- OUTSIDE RECORDS SUMMARY | 2024-11-04 12:26 | XMS_ITS | Encounter Summary ---
Author Organization [employer] [facility] Address [address] [facility] 7[address] [place] [address] Care Team Providers Care Rat Trapper Name Role Phone James Flores MD Primary Care Provide r Encounter Details Date Type Department Care Team (Late st Contact Info) Description 08/22/2022 Orders Only [facility] CHC MED & PEDS [address] [place], [place] [phone] Jaja Hammond LPN Social History Tobacco Use [...] Description 12/10/2024 9:15 AM EDT Office Visit [facility] MEDICINE [address] [place], [place] [phone] James Flores MD [address] [place] [address] documented as of this encounter Visit Diagnoses Not on filedocumented in this encounter Care Teams Rat Trapper Relationship Specialty Start Date End Date James Flores MD [address] [place] [address] PCP - General Internal Medicine 02/04/14 documented as of this encounter
--- OUTSIDE RECORDS SUMMARY | 2024-11-04 12:27 | XMS_ITS | Encounter Summary ---
Author Organization [facility] Address [address] [facility] [address] [place] [address] Phone Care Team Providers Care Insole Rounder Name Role Phone James Trimble MD Primary Care Provide r Encounter Details Date Type Department Care Team (Late st Contact Info) Description 01/25/2021 Procedure Pass [facility], Ct Scan - [address] [address] Social History Tobacco Use Types Packs/Day Years [...] 01/25/2021 12:53 PM Corinne Rodriguez, LISA * [place] Suicide Severity Rating Scale (Screener/Recent Self-Report) Question [...] documented as of this encounter Care Teams Insole Rounder Relationship Specialty Start Date End Date James Trimble MD [address] [place] [address] [place] [phone] PCP - General 03/16/17 documented as of this encounter Additional Source Comments The information contained in this document represents components of the legal health record. It is not the complete legal health record.[facility]
--- OUTSIDE RECORDS SUMMARY | 2024-11-04 12:28 | XMS_ITS | Patient Health Record ---
Author Organization [facility] Address [address] [place] [address] Care Team Providers Care Financial Management Consultant Name Role Phone Rudy Ashraf MD, James Primary Care Provide r Unavailable Moris Duron Jr Unavailable Reason For Referral No Information Plan Of Treatment No Information Insurance Providers Payer Name Payer Address Payer Phone Subscriber Number Group Number Insured Name Patient Relationship to Insured Coverage Start Date Coverage End Date MEDICARE OF [place] [address] [place] [id number] STEPHANI JOE Self - patient is the insured MEDICAID OF [facility] [address] [place] [address] [id number] STEPHANI JOE Self - patient is the insured
--- OUTSIDE RECORDS SUMMARY | 2024-11-04 12:28 | XMS_ITS ---
Author Name Mr. Arlen Márquez Address [address] [place] [address] Phone [phone] [facility] Care Team Providers Care Field Artillery Basic Name Role Phone Micah Judge Unavailable [phone] Reason for Referral Not Available Allergies, adverse [...] 2021-11-04 No Data Available OneTouch Delica Plus [id number] Miscellaneous TEST BLOOD SUGAR THREE OR FOUR [...] of Service Diagnosis/Co mplaint No Data Available [facility] 07/12/2022 Type 2 diabetes mellitus wit h diabetic chronic kidney diseaseChronic kidney disease, stage 3bLong term (current) use of insulinMorbid (severe) obesity due to excess caloriesBody mass index (BMI) 40.0-44.9, adultOther specified health statusConstipation, unspecifiedProblems related to health literacyPrsnl hx of TIA (TIA), and cereb infrc w/o resid deficits No Data Available [facility] 07/12/2022 No Data Available [facility] [place] 07/12/2022 No Data Available [facility] [place] 07/12/2022 No Data Available [facility] [place] 07/12/2022 No Data Available [facility] [place] 07[place]12/2022 No Data Available [facility] [place] 07/22/2022 Morbid (severe) obesity due to excess caloriesBody mass index (BMI) 40.0-44.9, adultType 2 diabetes mellitus with diabetic chronic kidney diseaseChronic kidney disease, stage 3bPrsnl hx of TIA (TIA), and cereb infrc w/o resid deficitsOther specified health status No Data Available [facility] [place] 07/22/2022 Vital Signs Date of Collection Vitals 2022-07-12 11:38:39 Height - 147.32 cmWe ight - 87.09 kgBody Mass Index (BMI) - 40.13 kg/m2 Social History Sex Female History of Procedures Procedures Service Procedure code Service date Servicing provider Phone# No Data Available [id number] 2022-07-12 No Data Available No Data Available [...] le No Data Available No Data Available [id number] 2022-07-22 No Data Available No Data Available [...]
--- OUTSIDE RECORDS SUMMARY | 2024-11-04 12:28 | XMS_ITS | Encounter Summary ---
Author Organization [facility] Address [address] [place] [address] Phone Care Team Providers Care Supervisor Maintenance Name Role Phone James Grant MD Primary Care Provider Unav ailable Reason for Visit * Reason Comments Med Refill Encounter Details Date Type Department Care Team (Late st Contact Info) Description 12/14/2022 Refill [facility] [address] [place] [address] Omsany Leung MD Social History Tobacco Use Types [...] filedocumented in this encounter Care Teams Supervisor Maintenance Relationship Specialty Start Date End Date James Grant MD PCP - General 03/23/20 documented as of this encounter
== END 2024-11-04 11:05 | disposition home or self-care (01) ==
LOC: HO.MAMMO 11:04
PROVIDERS: PCP Internal Medicine; Visit Provider Internal Medicine
DX: Z12.31 Encounter for screening mammogram for malignant neoplasm of breast (principal)
CPT/HCPCS: 77063; 77067

== ENCOUNTER → 2024-11-04 11:15 | Outpatient (BNV) | payer MEDICARE, SELFPAY | PROVIDERS: PCP Internal Medicine; Visit Provider Radiology Body Imaging | DX: Z12.31 Encounter for screening mammogram for malignant neoplasm of breast (principal) | CPT/HCPCS: 77063; 77067 ==

== ENCOUNTER 2024-11-05 08:46 | Outpatient (AMB) | payer OTHER, SELFPAY ==
--- NOTE | 2024-11-05 08:48 | A.OFFVIS_ITS ---
Intake Visit Reasons: urinary incontinence Intake Note: pt presents for: new pt urinary incontinence urology medications: none blood thinners: none today's pvr: 55 mls Voip Technician Required: Yes Voip Technician Services: Voip Technician Present Accompanied by: Daughter Allergies morphine (Morphine) Allergy (Intermediate, Verified 11/05/24 08:49) TACHYCARDIA, ANXIETY oxycodone (Percocet) Allergy (Intermediate, Verified 11/05/24 08:49) Palpitations acetaminophen (From Percocet) Allergy (Verified 11/05/24 08:49) Palpitations prednisone (PREDNISONE) Adverse Reaction (Intermediate, Verified 11/05/24 08:49) ANXIETY HPI Comments Details: Jayne is a pleasant Kinyarwanda-speaking female. She is a patient of Dr. Hernandez. She is seen for the following urologic conditions - UTI Translation provided by daughter who was comfortable in role Presented to emergency room with urinary tract infection Insulin-dependent diabetic HbA1c 7.7 Primary issue constipation Does have leukocytes in urine on dipstick today Discussed importance of bladder emptying Does have occasional urgency and frequency P.r.n. follow-up [facility] Medical History Primary osteoarthritis of left knee Acute pain of both knees Tinea corporis Tubular adenoma Non-rheumatic aortic stenosis Hemorrhoids Diverticulosis of colon History of CVA (cerebrovascular accident) Hyperkalemia Cobalamin deficiency CKD (chronic kidney disease) Iron deficiency anemia Temporal arteritis Idiopathic peripheral neuropathy Arthritis ELLIE (obstructive sleep apnea) Obesity Abnormal Pap smear of cervix Osteoporosis Goiter Hyperparathyroidism Hypercalcemia Vitamin D deficiency HLD (hyperlipidemia) HTN (hypertension) T2DM (type 2 diabetes mellitus) On beta anurag at home Chronic constipation Diabetes Anemia GERD (gastroesophageal reflux disease) Sleep apnea Asthma CAD (coronary artery disease) Angina pectoris HTN (hypertension) Surgical History Hx of heart artery stent Hx of cholecystectomy History of esophagogastroduodenoscopy (EGD) H/O colonoscopy Family History Father Liver problem Mother Diabetes Obesity Social History Household Members Other:: With Housing: House Alcohol intake: never Patient Tobacco Use Status: Never used Tobacco Current occupational status: disabled Sexual orientation: Straight/Heterosexual Gender identity: Female Review of Systems Const Denies chills and Denies fever(s) Card Reports no additional complaints and Denies syncope Resp Denies cough GI Denies abdominal pain and Denies heartburn Reports as per HPI and Denies change in libido Neuro Denies syncope Psych Denies change in libido Endo Denies change in libido Physical Exam Const General: cooperative, healthy appearing, comfortable and no acute distress Orientation/consciousness: patient oriented x3 HEENT Face and sinus: Yes normal facial exam Mouth: moist mucous membranes Neck Neck: Yes normal visual inspection, Yes full ROM and Yes trachea midline Chest Chest palpation & inspection: normal inspection of the chest Resp Effort & Inspection: normal respiratory effort, able to speak in complete sentences and no respiratory distress GI Inspection: Yes normal to inspection Back/Spine/Pelvis Cervical Spine: normal cervical lordosis Thoracic/Lumbar Spine: thoracic and lumbar spine normal to inspection Skin General skin exam: no rashes or lesions noted Neuro General: patient oriented x3, gait normal, tone normal and moves all extremities Extrem General: Yes normal to inspection and Yes capillary refill normal Office Procedures Post Void Residual Post Residual Void Post Void Residual (PVR): 55 [id number] Void Residual by ultrasound Results AMB Urinalysis, Automated UA Leukoctes 125 Renetta/uL Last Edit by SHIRLENE Driver on 11/05/24 09:03 UA Nitrite Negative Last Edit by SHIRLENE Driver on 11/05/24 09:03 UA Urobilinogen 0.2 mg/dL Last Edit by SHIRLENE Driver on 11/05/24 09:0 3 UA Protein 15 mg/dL Last Edit by SHIRLENE Driver on 11/05/24 09:03 UA pH 6.0 Last Edit by SHIRLENE Driver on 11/05/24 09:03 UA Blood 0 Anam/uL Last Edit by SHIRLENE Driver on 11/05/24 09:03 UA Specific [place] 1.015 Last Edit by SHIRLENE Driver on 11/05/24 09: 03 UA Ketone Negative Last Edit by SHIRLENE Driver on 11/05/24 09:03 UA Bilirubin 0 mg/dL Last Edit by SHIRLENE Driver on 11/05/24 09:03 UA Glucose 0 mg/dL Last Edit by SHIRLENE Driver on 11/05/24 09:03 Results Reviewed Results Reviewed: Laboratory Last Values Urine pH (Auto) 6.0 11/05/24 09:03 Specific [place] (Auto) 1.015 11/05/24 09:03 Urine Protein (Auto) 15 mg/dL 11/05/24 09:03 Glucose (UA)(Auto) 0 mg/dL 11/05/24 09:03 Urine Ketones (Auto) Negative 11/05/24 09:03 Urine Blood (Auto) 0 Anam/uL 11/05/24 09:03 Urine Nitrite (Auto) Negative 11/05/24 09:03 Urine Bilirubin (Auto) 0 mg/dL 11/05/24 09:03 Urine Urobilinogen (Auto) 0.2 mg/dL 11/05/24 09:03 Leukocyte Esterase (Auto) 125 Renetta/uL 11/05/24 09:03 Assessment & Plan Assessment & Plan (1) Complicated urinary tract infection: Code(s): N39.0 - Urinary tract infection, site not specified Category: Medical Plan P.r.n. follow-up Orders: Orders AMB Post Void Residual by ultrasound Today R32 - Unspecified urinary incontinence AMB Urinalysis Automated Today Z13.9 - Encounter for screening, unspecified Patient Instructions: This note is constructed using voice recognition software. While every effort has been made to ensure accuracy slackline operator errors may have been included. Imaging studies, laboratory and physical exam results were discussed and reviewed in detail. No major barriers to patient understanding were identified. An opportunity to ask questions regarding the treatment plan was provided. All questions were answered. The patient expressed understanding and agreement with the above treatment plan. The patient is aware they should contact our office by phone for worsening of their current condition or the appearance of new urologic symptoms. Compliance is encouraged with any medications and followup testing that is ordered. It is a privilege to participate in the urologic care of your patient. If you have any questions or concerns regarding treatment for the above conditions, or other urologic issues, please do not hesitate to contact me. The office telephone contact is [phone]. Sincerely, Dr Spencer Dacosta MD, [facility] - Urology Compassionate Specialist Care for the Genitourinary System Coding Level of Care Code New Pt Level 3 (15462) Diagnoses Complicated urinary tract infection N39.0 CPT Codes Post Residual Void - PVR CPT Code: 02570-Cpjb Void Residual by ultrasound ([id number])
--- OUTSIDE RECORDS SUMMARY | 2024-11-05 09:03 | XMS_ITS | Patient Health Record ---
Author Organization [facility] Address [address] [place] [address] Care Team Providers Care Swahili Teacher Name Role Phone Rudy Ashraf MD, James Primary Care Provide r Unavailable Moris Duron Jr Unavailable Reason For Referral No Information Plan Of Treatment No Information Insurance Providers Payer Name Payer Address Payer Phone Subscriber Number Group Number Insured Name Patient Relationship to Insured Coverage Start Date Coverage End Date MEDICARE OF [place] [address] [place] [id number] STEPHANI JOE Self - patient is the insured MEDICAID OF [facility] [address] [place] [address] [id number] STEPHANI JOE Self - patient is the insured
--- OUTSIDE RECORDS SUMMARY | 2024-11-05 09:03 | XMS_ITS ---
Author Name Mr. Arlen Márquez Address [address] [place] [address] Phone [phone] [facility] Care Team Providers Care Medical Clerk Name Role Phone Micah Judge Unavailable [phone] Reason for Referral Not Available Allergies, adverse [...] 2021-11-04 No Data Available OneTouch Delica Plus [id number] Miscellaneous TEST BLOOD SUGAR THREE OR FOUR [...] of Service Diagnosis/Co mplaint No Data Available [facility] ([place] 07/12/2022 Type 2 diabetes mellitus wit h diabetic chronic kidney diseaseChronic kidney disease, stage 3bLong term (current) use of insulinMorbid (severe) obesity due to excess caloriesBody mass index (BMI) 40.0-44.9, adultOther specified health statusConstipation, unspecifiedProblems related to health literacyPrsnl hx of TIA (TIA), and cereb infrc w/o resid deficits No Data Available [facility] [place] 07/12/2022 No Data Available [facility] [place] 07/12/2022 No Data Available [facility] [place] 07/12/2022 No Data Available [facility] [place] 07/12/2022 No Data Available [facility] [place] 07/12/2022 No Data Available [facility] [place] 07/22/2022 Morbid (severe) obesity due to excess caloriesBody mass index (BMI) 40.0-44.9, adultType 2 diabetes mellitus with diabetic chronic kidney diseaseChronic kidney disease, stage 3bPrsnl hx of TIA (TIA), and cereb infrc w/o resid deficitsOther specified health status No Data Available [facility] [place] 07/22/2022 Vital Signs Date of Collection Vitals 2022-07-12 11:38:39 Height - 147.32 cmWe ight - 87.09 kgBody Mass Index (BMI) - 40.13 kg/m2 Social History Sex Female History of Procedures Procedures Service Procedure code Service date Servicing provider Phone# No Data Available [id number] 2022-07-12 No Data Available No Data Available [...] le No Data Available No Data Available [id number] 2022-07-22 No Data Available No Data Available [...]
--- OUTSIDE RECORDS SUMMARY | 2024-11-05 09:03 | XMS_ITS | Encounter Summary ---
Author Organization [facility] Address [address] [place] [address] Phone Care Team Providers Care College Sports Assistant Name Role Phone James Trimble MD Primary Care Provide r Encounter Details Date Type Department Care Team (Late st Contact Info) Description 01/25/2021 Procedure Pass [facility], Ct Scan - [address] [address] Social History Tobacco Use Types Packs/Day Years [...] 01/25/2021 12:53 PM Corinne Rodriguez, LISA * [place] Suicide Severity Rating Scale (Screener/Recent Self-Report) Question [...] documented as of this encounter Care Teams College Sports Assistant Relationship Specialty Start Date End Date James Trimble MD [address] [place] [address] [place] [phone] PCP - General 03/16/17 documented as of this encounter Additional Source Comments The information contained in this document represents components of the legal health record. It is not the complete legal health record.[facility]
--- OUTSIDE RECORDS SUMMARY | 2024-11-05 09:04 | XMS_ITS | Encounter Summary ---
Author Organization [facility] Address [address] [place] [address] Phone Care Team Providers Care Clinical Research Manager Name Role Phone James Trimble MD Primary Care Provide r Encounter Details Date Type Department Care Team (Late st Contact Info) Description 12/20/2020 Procedure Pass [facility], Ct Scan - [address] [address] Social History Tobacco Use Types Packs/Day Years [...] Date of Assessment Author No Risk Indicated 12/21/2020 5:00 AM EDT Trey Cardona i, RN * [place] Suicide Severity Rating Scale (Screener/Recent Self-Report) Question Answer Date of Assessment Author 1. Wish to be (Past 1 Month) No 12/21/2020 5:00 AM EDT Trey Alonso RN 2. Non-Specific Active Suicidal Thoughts (Past 1 Month) No 12/21/2020 5:00 AM EDT Trey Alonso RN 6. Suicidal Behavior (Lifetime) No 12/21/2020 5:00 AM EDT Trey Alonso RN documented as of this encounter Plan of Treatment Not on file documented as of this encounter Visit Diagnoses Not on filedocumented in this encounter Additional Health Concerns Infection Onset Date Last Indicated Resolved Time CoV-Risk 05/22/2021 05/22/2021 06/02/2021 1:23 AM EDT CoV-Risk Comment:Per note documentation 06/26/2021 06/26/2021 1:48 PM EDT CoV-Risk 12/17/2022 12/17/2022 12/28/2022 1:2 3 AM EDT CoV-Risk 01/28/2023 01/28/2023 02/08/2023 1:22 AM EST CoV-Risk 07/01/2023 07/03/2023 07/14/2023 1:21 AM EDT Influenza A 07/03/2023 07/03/2023 07/10/2023 1:22 AM EDT documented as of this encounter Care Teams Clinical Research Manager Relationship Specialty Start Date End Date James Trimble MD [address] [place] [address] [address] [place] [address] [email or web address] PCP - General 03/16/17 documented as of this encounter Additional Source Comments The information contained in this document represents components of the legal health record. It is not the complete legal health record.[facility]
--- OUTSIDE RECORDS SUMMARY | 2024-11-05 09:04 | XMS_ITS | Encounter Summary ---
Author Organization [facility] Address [address] [place] [address] Phone Care Team Providers Care Scalper Operator Name Role Phone James Trimble MD Primary Care Provide r Encounter Details Date Type Department Care Team (Late st Contact Info) Description 12/21/2020 Procedure Pass [facility] [address] [place] [address] Social History Tobacco Use Types Packs/Day Years [...] AM EDT Trey Cardona i, RN * [place] Suicide Severity Rating Scale (Screener/Recent Self-Report) Question [...] documented as of this encounter Care Teams Scalper Operator Relationship Specialty Start Date End Date James Trimble MD [address] [place] [address] [address] [place] [address] [email or web address] PCP - General 03/16/17 documented as of this encounter Additional Source Comments The information contained in this document represents components of the legal health record. It is not the complete legal health record.[facility]
--- OUTSIDE RECORDS SUMMARY | 2024-11-05 09:04 | XMS_ITS | Clinical Summary ---
Author Organization [facility] Address [address] [place] [address] Phone Care Team Providers Care Aircraft Rigging And Controls Mechanic Name Role Phone James Grant MD Primary [...] Diabetes: Hemoglobin A1C 05/01/2024 01/30/2024 Influenza Vaccine (#1) 2024 , 11/23/2022, 12/09/2021, Additional history exists Hepatitis B Vaccine Aged Out No longe r eligible based on patient's age to complete this topic Insurance [employer] Care Teams Aircraft Rigging And Controls Mechanic Relationship Specialty Start Date End Date James Grant MD PCP - General 03/23/20
--- OUTSIDE RECORDS SUMMARY | 2024-11-05 09:04 | XMS_ITS | Encounter Summary ---
Author Organization [facility] Address [address] [place] [address] Phone Care Team Providers Care Product Safety Lead Name Role Phone James Trimble MD Primary Care Provide r Encounter Details Date Type Department Care Team (Late st Contact Info) Description 12/20/2020 Procedure Pass [employer] [employer], [address] [address] Social History Tobacco Use Types Packs/Day Years [...] AM EDT Trey Cardona i, RN * [place] Suicide Severity Rating Scale (Screener/Recent Self-Report) Question [...] as of this encounter Care Teams Product Safety Lead Relationship Specialty Start Date End Date James Trimble MD [address] [place] [address] [address] [place] [address] [email or web address] PCP - General 03/16/17 documented as of this encounter Additional Source Comments The information contained in this document represents components of the legal health record. It is not the complete legal health record.[facility]
--- OUTSIDE RECORDS SUMMARY | 2024-11-05 09:04 | XMS_ITS | Encounter Summary ---
Author Organization [facility] Address [address] [place] [address] Phone Care Team Providers Care Commercial Intern Name Role Phone James Trimble MD Primary Care Provide r Encounter Details Date Type Department Care Team (Late st Contact Info) Description 12/21/2020 Procedure Pass [facility]-In[facility] Cardiology [address] [place] [address] Social History Tobacco Use Types Packs/Day Years [...] AM EDT Trey Cardona i, RN * [place] Suicide Severity Rating Scale (Screener/Recent Self-Report) Question [...] documented as of this encounter Care Teams Commercial Intern Relationship Specialty Start Date End Date James Trimble MD [address] [place] [address] [address] [place] [address] [email or web address] PCP - General 03/16/17 documented as of this encounter Additional Source Comments The information contained in this document represents components of the legal health record. It is not the complete legal health record.[facility]
--- OUTSIDE RECORDS SUMMARY | 2024-11-05 09:04 | XMS_ITS | Clinical Summary ---
Author Organization [facility] Address [address] [facility] [address] [place] [address] Phone Care Team Providers Care Welder Production Line Arc Name Role Phone James Trimble MD Primary Care Provide r Allergies Active Allergy Reactions Criticality Noted Date Comments Acetaminophen 04/12/2013 Amoxicillin 05/10/2012 Chlorothiazide 05/10/2012 Ciprofloxacin 05/10/2012 Codeine 05/10/2012 Diphenhydramine 05/10/2012 Fosinopril Other reaction(s): elevated potassium Morphine Palpitations Low 07/09/2017 Nitrofurantoin 05/10/2012 Oxycodone Palpitations Low 07/01/2023 Listed previously as Percocet allergy but takes Tylenol regularly Sulfa (Sulfonamide Antibiotics) 05/10/2012 Vancomycin 05/10/2012 Medications ATORVASTATIN CALCIUM (LIPITOR ORAL) Take 80 mg by mouth nightly at bedtime. Active cyanocobalamin (VITAMIN B-12) 1,000 mcg/mL injection 1 ml Injection 05/25/19 13 Active LORATADINE ORAL Take 10 mg by mouth daily. Active metoprolol tartrate (LOPRESSOR) 25 MG tablet Take 25 mg by mouth 2 (two) times a day. Active ferrous sulfate 325 mg (65 mg [place] iron) tablet Take 325 mg by mouth 3 (three) times a day with meals. Active lancets Misc Active insulin pen needles, disposable, 31 gauge x 516 Ndle Active omeprazole (PRILOSEC) 20 MG capsule Take 20 mg by mouth daily. Active furosemide (LASIX) 20 MG tablet Take 20 mg by mouth daily. Active budesonide (PULMICORT FLEXHALER) 90 mcg/actuation inhaler Inhale 1 puff into the lungs 2 (two) times a day. Active insulin lispro (HUMALOG BELLO KWIKPEN U-100) 100 unit/mL half-unit injection pen Inject under the skin 3 (three) times a day with meals. Active docusate sodium (COLACE) 100 MG capsule Take 100 mg by mouth 2 (two) times a day. Active clopidogrel (PLAVIX) 75 mg tablet Take 1 tablet (75 mg total) by mouth daily. 30 tablet 1 12/23/19 21 Active fluticasone propionate (FLONASE) 50 mcg/actuation nasal spray 2 sprays by Nasal route daily for 14 days. 16 g 05/23/19 22 Active amLODIPine (NORVASC) 5 MG tablet Take 5 mg by mouth every evening. Active insulin glargine (LANTUS) 100 unit/mL injection vial Inject 46 Units under the skin nightly at bedtime. Active cholecalciferol, vitamin D3, 25 mcg (1,000 unit) capsule Take 1,000 Units by mouth. 06/01/19 22 Active dulaglutide (TRULICITY) 1.5 mg/0.5 mL subcutaneous injection 1.5 mg every 7 days. On Mondays06/01/19 Active sodium zirconium cyclosilicate (LOKELMA) 5 gram MIX 1 PACKET WITH WATER AND DRINK TWICE A WEEK DIRECTED 06/20/19 22 Active lactulose bulk (CONSTULOSE) 10 gram/15 mL solution TAKE 15 mls BY MOUTH TWICE DAILY NEEDED FOR CONSTIPATION 06/09/19 22 Active predniSONE (DELTASONE) 10 MG tablet [The details of the medication are not available because there are pending changes by a home health clinician.] 30 tablet 06/30/19 22 Active Additional Information Patient not taking.Reason: Therapy complete, Reported on 07/14/2021 albuterol 2.5 mg /3 mL (0.083 %) nebulizer solution Take 3 mL (2.5 mg total) by nebulization every 6 (six) hours. When you are feeling better, you can use as needed. 180 mL 1 06/30/19 Active albuterol 90 mcg/actuation inhaler Inhale 2 puffs into the lungs every 6 (six) hours as needed for wheezing. 06/30/19 22 Active albuterol 90 mcg/actuation inhaler [The details of the medication are not available because there are pending changes by a home health clinician.] 8 g 06/30/19 22 Active Additional Information Patient not taking.Reason: Other (duplicate order), Reported on 07/01/2021 acetaminophen (TYLENOL) 500 MG tablet Take 2 tablets (1,000 mg total) by mouth every 8 (eight) hours as needed for pain (specific location in comments). 60 tablet 09/15/19 Active cyclobenzaprine (FLEXERIL) 5 MG tablet 5-10 mg every 6-8 hours as needed for skeletal muscle relaxation/muscl e spasm 20 tablet 01/06/20 22 Active albuterol 2.5 mg /3 mL (0.083 %) nebulizer solution Take 3 mL (2.5 mg total) by nebulization every 6 (six) hours as needed. 30 mL 01/29/20 23 Active ONETOUCH VERIO Strp strips as directed. 01/20/20 23 Active ALCOHOL PREP PADS PadM as directed. Active ezetimibe (ZETIA) 10 mg tablet Take 10 mg by mouth daily. Active oseltamivir (TAMIFLU) 30 mg capsule Take 1 capsule (30 mg total) by mouth 2 (two) times a day. 9 capsule 07/03/19 24 Active predniSONE (DELTASONE) 20 MG tablet Take 2 tablets (40 mg total) by mouth nightly at bedtime. 8 tablet 07/03/19 24 Active Active Problems Problem Noted Date Diagnosed Date Asthma exacerbation 06/26/2021 Assessment & Plan (06/28/2021 2:16 PM EDT): The patient had significant bronchospasm on exam presentation Chest x-ray negative as well as Covid. Not hypoxic Treating for asthma exacerbation with nebulizer treatment steroids Exam improved with just a few wheezes Patient reports she does not have a nebulizer at home does not see a glass loading equipment tender. Considering home neb. ? Having difficulty using Pulmicort at home. Asked RT to educate patient. Likely home 06/29 Right thalamic stroke 12/20/2020 Assessment & Plan (12/21/2020 5:24 PM EDT): Low probability of stroke. The patient agreed to try again with the MRI with a higher dose of parenteral lorazepam Coronary artery disease 03/13/2005 Overview (12/20/2020): s/p myocardial infarction as well as stent placement 2005 Assessment & Plan (06/27/2021 4:49 PM EDT): History CAD, hypertension, stroke the patient denies chest pain and appears euvolemic on exam, blood pressure good. Continue usual Plavix, metoprolol, furosemide, Norvasc and atorvastatin Assessment & Plan (12/21/2020 5:25 PM EDT): She denies any chest pain. No ischemic EKG changes. Continue aspirin, atorvastatin, and metoprolol as prescribed. She appears euvolemic on exam and remains on furosemide.. H/O insulin dependent diabetes mellitus Assessment & Plan (06/28/2021 2:17 PM EDT): Last hemoglobin A1c 6.8 in December 2020. Initially placed on usual Lantus insulin 46 units at bedtime with diabetic Diet. Glucose levels high with prednisone. Increase Lantus, add mealtime Humalog. Pt using lantus 46 and 14 of a short acting with meals and trulicity at home. BS were very high 06/27, better now. The patient takes Trulicity on Mondays which is nonformulary here. Assessment & Plan (12/20/2020 6:01 PM EDT): The patient is prescribed pioglitazone orally. I tried to reconcile her medications with the patient's granddaughter, but it is still not clear if she is taking glyburide or Metformin at this point. Also, the patient is taking insulin but is unable to tell me which types or dosages. Hold pioglitazone. Monitor POC's with insulin sliding scale coverage. Check hemoglobin A1c as outlined. Reconcile insulin type and dosing with pharmacy tomorrow and restart basal insulin. CKD (chronic kidney disease), stage III Assessment & Plan (06/27/2021 4:48 PM EDT): Creatinine currently at baseline. The patient has had issues with chronic hyperkalemia . Continue usual Lokelma 5 g twice weekly. The patient has chronic anemia likely related to chronic kidney disease and possible iron deficiency; she remains on iron 3 times daily. Assessment & Plan (12/21/2020 5:25 PM EDT): Brief bump in creatinine from contrast Plan check tomorrow Hypertension Resolved Problems Problem Noted Date Diagnosed Date Resolved Date Asthma 12/22/2020 Assessment & Plan (12/20/2020 5:58 PM EDT): No current hypoxia or bronchospasm. Continue Pulmicort Flexhaler as prescribed. Albuterol MDI will be ordered as needed. Immunizations No known immunizations Family History Medical History Relation Comments No Known Problems Father No Known Problems Mother Asthma Neg Hx Relation Status Comments Father Mother Social History Tobacco Use Types Packs/Day Years Used Date Smoking Tobacco: Never Smokeless Tobacco: Never Tobacco Cessation:Counseling Given: No Alcohol Use Standard Drinks/Week Comments No 0 (1 standard drink = 0.6 oz pur e alcohol) Education Answer Date Recorded Are you interested in more education? Not on daniel e 07/08/2022 Are you concerned about learning? Not on file 07/08/2022 No 07/08/2022 No 07/08/2022 Digital Access Answer Date Recorded No 08/06/2022 No 08/06/2022 Reliable internet access at home? Not on file 08/06/2022 Device with a working camera? Not on file Intimate Partner Violence Answer Date R ecorded Are you denied basic needs s uch as food, clothing, or medical care? No 07/03/2023 In the past 12 months have y ou been in a relationship with a person who hurts, threatens, or tries to control you? No 07/03/2023 Are you denied basic needs s uch as food, clothing, or medical care? No 07/03/2023 In the past 12 months have y ou been in a relationship with a person who hurts, threatens, or tries to control you? No 07/03/2023 Comments No Sex and Gender Information Value Date Recorded Sex Assigned at Female 07/09/2017 11:56 AM EDT Legal Sex Female 9:55 PM EDT Gender Identity Female 07/09/2017 11:56 AM EDT Sexual Orientation Straight 09/09/2017 5: 47 PM EDT Last Filed Vital Signs Vital Sign Reading Time Taken Comments Blood Pressure 127/71 07/03/2023 10:43 PM EDT Pulse 76 07/03/2023 10:43 PM EDT Temperature 37.1 C (98.8 F) 07/03/2023 10:43 PM EDT Respiratory Rate 18 07/03/2023 10:43 PM EDT Oxygen Saturation 97% 07/03/2023 10:43 PM EDT Inhaled Oxygen Concentration - - Weight 81.6 kg (180 lb) 07/03/2023 8:03 PM EDT Height 157.5 cm (5' 2 ) 07/03/2023 8:03 PM EDT Body Mass Index 32.92 07/03/2023 8:03 PM EDT Plan of Treatment Health Maintenance Due Date Last Done Comments BLOOD PRESSURE 1955 DEPRESSION SCREENING 1967 HEPATITIS C SCREENING 05/18/1973 PNEUMOCOCCAL VACCINES (50+ years) (1 of 2 - PCV) 05/18/1974 COLOGUARD 05/18/2000 COLONOSCOPY 05/18/2000 COLORECTAL CANCER SCREENING 05/18/2000 FIT TEST 05/18/2000 FOBT 05/18/2000 SIGMOIDOSCOPY 05/18/2000 VIRTUAL COLONOSCOPY 05/18/2000 RSV VACCINE (1 - Risk 60-74 years 1-dose series) 2015 ZOSTER VACCINES (2 of 3) 12/15/2015 10/20/2015 OSTEOPOROSIS SCREENING INITIAL (ONE-TIME) 05/18/2020 MAMMOGRAM 01/09/2021 01/09/2019, 12/27/2017 COVID-19 VACCINE ( season) 2023 08/31/2020, 08/01/2020 LIPID PANEL 02/04/2025 02/05/2024, 12/21/2020 SCREENING FOR DIABETES 05/31/2027 , 01/31/2023, 01/19/2023, Additional history exists Adult Td,Tdap Booster 05/30/2034 05/30/2024 , 05/31/2013, 11/27/2002 SMOKING STATUS SCREENING (Once After 26 Yrs) Completed 07/01/2023 HEPATITIS A VACCINES Aged Out No long er eligible based on patient's age to complete this topic HIB VACCINES Aged Out No longer eligi ble based on patient's age to complete this topic MENINGOCOCCAL VACCINES (ACWY) Aged Out No longer eligible based on patient's age to complete this topic MENINGOCOCCAL VACCINES (B) Aged Out N o longer eligible based on patient's age to complete this topic Medical Devices Not on file Procedures Procedure Name Priority Date/Time Associated Diagnosis Comments LIPID PANEL Routine 12/21/2020 6:13 AM EDT from Last 3 Months or Most Recently Relevant to Health Maintenance Results * Lipid panel (12/21/2020 6:13 AM EDT) HDL 49 mg/dL [facility] Comment: Interpretation <40 mg/dL: Low HDL cholesterol (major risk factor for CHD) Greater than or equal to 60 mg/dL: High HDL cholesterol ( negative risk factor for CHD) HDL - cholesterol is affected by a number of factors, e.g. smoking, excerise, hormones, sex and age. CHOLESTEROL 160 0 - 240 mg/dL [facility] TRIGLYCERIDES 109 30 - 160 mg/dL [facility] LDL 89 50 - 129 mg/dL [facility] Comment: LDL levels in terms of risk for coronary heart disease: <100 mg/dL: Optimal 100-129 mg/dL: Near or above optimal 130-159 mg/dL: Borderline high 160-189 mg/dL: High >190 mg/dL: Very High CARDIAC RISK RATIO 3.3 3.3 - 4.4 [facility] Blood 12/21/2020 6:13 AM EDT 12/21/2020 6:36 AM EDT us Avni Bernard MD LAB BLOOD ORDERABLES Fin al Result [facility] [address] [place] [address] from Last 3 Months or Most Recently Relevant to Health Maintenance Insurance MEDICARE REPLACEMENT MEDICARE REPLACEMENT MEDICARE REPLACEMENT MEDICARE REPLACEMENT MEDICARE REPLACEMENT Advance Directives For more information, please contact: [phone] (9AM - 5PM [facility], Monday-Monday) * Full Code (Latest Code Status on File) Date Activated Date Inactivated Comments 06/26/2021 2:17 PM Question Answer Comments Code Status Confirmed With: Patient * Full Code Date Activated Date Inactivated Comments 12/20/2020 7:48 PM 06/26/2021 2:17 PM Question Answer Comments Code Status Confirmed With: Patient Care Teams Welder Production Line Arc Relationship Specialty Start Date End Date James Trimble MD [address] [place] [address] [address] [place] [id number] PCP - General 03/16/17 Additional Source Comments The information contained in this document represents components of the legal health record. It is not the complete legal health record.[facility]
--- OUTSIDE RECORDS SUMMARY | 2024-11-05 09:04 | XMS_ITS | Encounter Summary ---
Author Organization [facility] Address [address] [place] [address] Phone Care Team Providers Care Certified Nurse Midwife Name Role Phone James Grant MD Primary Care Provider Unav ailable Reason for Visit * Reason Comments Med Refill Encounter Details Date Type Department Care Team (Late st Contact Info) Description 12/14/2022 Refill [facility] [address] [place] [address] Osmany Leung MD Social History [...] on filedocumented in this encounter Care Teams Certified Nurse Midwife Relationship Specialty Start Date End Date James Grant MD PCP - General 03/23/20 documented as of this encounter
== END 2024-11-05 16:37 | disposition home or self-care (01) ==
LOC: HO.HUSH 08:47
PROVIDERS: PCP Internal Medicine; Visit Provider Urology
DX: N39.0 Urinary tract infection, site not specified (principal); Z13.9 Encounter for screening, unspecified
CPT/HCPCS: 99203

== ENCOUNTER → 2024-11-05 08:46 | Outpatient (BNVA) | payer OTHER, SELFPAY | PROVIDERS: PCP Internal Medicine; Visit Provider Urology | DX: N39.0 Urinary tract infection, site not specified (principal); R32 Unspecified urinary incontinence; Z13.9 Encounter for screening, unspecified | CPT/HCPCS: 51798; 81003; 99202 ==

== ENCOUNTER 2024-11-13 09:47 | Outpatient (AMB) | payer MEDICARE, SELFPAY ==
--- OUTSIDE RECORDS SUMMARY | 2024-11-08 09:45 | XMS_ITS | Encounter Summary ---
Author Organization [facility] Address [address] [place] [address] Care Team Providers Care Aerodynamics Teacher Name Role Phone Ruchi Ayala MD Primary Care Provide r Reason for Visit * Reason Comments Foot/ankle Fracture Non displaced fractu re left lesser toe * Consultation (Urgent) - Closed Specialty Diagnoses / Procedures Referred By Miguel ritter Referred To Contact Podiatry / Orthopaedic Surgery Diagnoses Nondisplaced fracture of proximal phalanx of left lesser toe(s), initial encounter for closed fracture Ruchi Ayala MD [address] [address] Phone: tel: fax: Nii Frias DPM [address] [address] Phone: tel: fax: Referral ID Status Reason Start Date Expiration Date V isits Requested Visits Authorized [id number] Closed Specialty Services Required 11/05/2024 11/05/2025 1 1 Encounter Details Date Type Department Care Team (Late st Contact Info) Description 11/08/2024 9:45 AM EDT Consult Orthopedic Surgery - [place] [id number] [address] Nii Frias DPM [address] [address] Nondisplaced fracture of proximal phalanx of left lesser toe(s), initial encounter for closed fracture Social History Tobacco Use Types Packs/Day Years Used Date Smoking Tobacco: Never Assessed Comments Unknown Sex and Gender Information Value Date Recorded Sex Assigned at Not on file Legal Sex Female 12:51 PM EST Gender Identity Not on file Sexual Orientation Not on file documented as of this encounter Progress Notes * Nii Frias DPM - 11/08/2024 9:45 AM EDT Referring MD: Ruchi Ayala * Last PCP visit: 10/30/2024 IDENTIFIER: Ariana is a 69 y.o. year old female who presents for consultation. CC: Left foot pain HPI: 69-year-old female presents office with chief complaint of left fifth toe pain. Patient notes that she excellently bumped her toe a couple of weeks ago causing severe swelling and redness. Patient notes she recently had an x-ray and was found that it was broken. Patient would like to evaluate her options for healing ROS: GENERAL: Pt denies nausea, fever, vomiting, chills, or shortness of breath. Pt in NAD. CARDIOLOGY: pt denies chest pain, palpitations LUNGS: pt denies shortness of breath MUSCULOSKELETAL: See HPI, otherwise no joint pain or swelling, back pain, or muscle pain. SKIN: see HPI, otherwise no lesions, rash or itching NEURO: No persistent headache, weakness or numbness The remainder of the review of systems is noncontributory PAST MEDICAL HISTORY: There is no problem list on file for this patient. SOCIAL HISTORY: Social History Tobacco Use Smoking status: Not on file Smokeless tobacco: Not on file Substance Use Topics Alcohol use: Not on file ACTIVE MEDICATIONS: No outpatient medications have been marked as taking for the 11/08/24 encounter (Consult) with Nii Frias DPM. ALLERGIES: Acetaminophen, Amoxicillin, Chlorothiazide, Ciprofloxacin, Codeine, Diphenhydramine, Nitrofurantoin, Other, Oxycodone-acetaminophen, Sulfa (sulfonamide antibiotics), Vancomycin, Morphine, and Oxycodone PHYSICAL EXAM: There were no vitals taken for this visit. PODIATRIC EXAMINATION: GENERAL: Patient appears well nourished, with NAD. VASCULAR: Dorsalis pedis pulses are 2/4 bilaterally and Posterior tibial pulses are 2/4 bilaterally. Capillary filling time within normal limits the digits. No pallor on elevation or rubor on dependency. Positive hair growth. No varicosities. Denies rest pain or claudication pain. NEUROLOGICAL: Sharp/dull sensation intact, protective sensation intact 10/10 with 5.07 semmes aisha bilaterally, vibratory sensation with tuning fork intact to the tibial tuberosity. ORTHOPEDIC: Good muscle strength 5/5 of all flexors and extensors. Dorsi flexion of ankle ,10 degrees, plantar flexion WNL. No muscle atrophy. Pain and swelling with ecchymosis over the base of the fifth toe on the left foot DERMATOLOGICAL:.No masses or skin lesions noted. Normal skin temperature, normal skin turgor. BIOMECHANICS: STJ ROM wnl, MTJ ROM wnl, 1st MPJ ROM wnl. IMAGING: Notable fracture with slight displacement of the proximal phalanx of the left fifth toe. Notable osteoporosis throughout the foot. Rectus alignment of the digit within normal limits IMPRESSION: 1. Nondisplaced fracture of proximal phalanx of left lesser toe(s), initial encounter for closed fracture PLAN: Pt was seen and examined, history reviewed. Patient found to have a fracture of the left fifth proximal phalanx Patient at this time would benefit from immobilization of the fracture to aid in healing of the area. Patient given surgical shoe Patient understands that they will be in surgical shoe for 4-6 weeks pending serial radiographs andfracture healing. Patient is to be PWB with the boot. Patient to use julissa bandage to help manage swelling. Ice and elevate while at rest. Oral analgesics such as Tylenol and Aleve can help with pain. All questions answered. RTC 3-4 weeks. Nii Frias DPM documented in this encounter Plan of Treatment Upcoming Encounters Date Type Department Care Team (Late st Contact Info) Description 12/24/2024 9:30 AM EDT Office Visit Orthopedic Surgery - [place] [address] [facility] [address] [place] [phone] Nii Frias DPM [address] [facility] [address] [place] [address] documented as of this encounter Visit Diagnoses Diagnosis Nondisplaced fracture of proximal phalanx of left lesser toe(s), initial encounter for closed fracture documented in this encounter Orders Outpatient Referral Count Last Ordered Date Fir st Ordered Date AMB REFERRAL TO PODIATRY 1 11/08/2024 documented in this encounter Care Teams Aerodynamics Teacher Relationship Specialty Start Date End Date Ruchi Ayala MD [address] [phone] PCP - General Internal Medicine 11/05/24 documented as of this encounter
[2024-11-13 09:49] VITALS: BP 144/72; PULSE 82; O2SAT 97; BMI 32.2
--- NOTE | 2024-11-13 09:49 | MHC.OFFVIS ---
Vital Signs 11/13/24 09:49 Height 5 ft 1 in Weight 170 lb 10.205 oz BMI 32.2 BP 144/72 H Blood Pressure Location Lt brachial Position Sitting Pulse 82 Pulse Source Pulse Oximeter Pulse Oximetry (%) 97 Oxygen Delivery Method Room Air Intake Visit Reasons: DM Intake Note: Patient presents today for a follow-up for Type 2 Diabetes Mellitus: Last Diabetic Eye exam: 10/2023, Pt has cataracts, pending surgery.??? Last Podiatry Exam: Does not see a Geospatial Program Management Officer Most recent HbA1c: 7.7%, 10/31/2024 Random Glucose- 102 mg/dL Heating And Blending Supervisor Required: Yes Heating And Blending Supervisor Language: Cigarette Paper Tester Services: Heating And Blending Supervisor Offered & Declined Accompanied by: Daughter Allergies morphine (Morphine) Allergy (Intermediate, Verified 11/13/24 09:55) TACHYCARDIA, ANXIETY oxycodone (Percocet) Allergy (Intermediate, Verified 11/13/24 09:55) Palpitations acetaminophen (From Percocet) Allergy (Verified 11/13/24 09:55) Palpitations prednisone (PREDNISONE) Adverse Reaction (Intermediate, Verified 11/13/24 09:55) ANXIETY HPI Comments Details: 68 year old female presenting for diabetic follow up Medical history: HTN, HLD, Vitamin D deficiency, hypercalcemia T2DM: Initially diagnosed with T2DM in 1999 Was initially started on treatment with orals, and has been requiring insulin since 2013. Current regimen Lantus 38 units qHS, Humalog 6-16 SS TID Actos 30 mg PO daily Ozempic 1mg Meter download -3% low, 71% target 16% high 10% very high POC A1C 7.7% from8.5% from 9.1. She had been on daily prednisone for concern for GCA. Family history of T2DM in her mother, daughter and her siblings. Last eye exam 10/2023, cataracts Denies neuropathy, does not see podiatry. Has nephropathy, CKD-follows with renal Has HLD, on Atorvastatin 80 mg PO daily and Zetia 10 mg PO daily. Has CAD-follows with cardiology 2) Hypercalcemia: Following with Dr Sylvester BALDERRAMA CONSTITUTIONAL: Denies weight loss, fever and chills. HEENT: Denies changes in vision and hearing. RESPIRATORY: Denies SOB and cough. CV: Denies palpitations and CP GI: Denies abdominal pain, nausea, vomiting and diarrhea. : Denies dysuria and urinary frequency. MSK: Denies new myalgia and joint pain. SKIN: Denies rash and pruritus. NEUROLOGICAL: Denies headache PSYCHIATRIC: Denies recent changes in mood. PHYSICAL EXAM: GENERAL: Alert and oriented x 3. NAD EYES: EOMI. Anicteric. HENT: Moist mucous membranes. No scleral icterus. No cervical lymphadenopathy. LUNGS: Clear to auscultation bilaterally. CARDIOVASCULAR: Regular rate and rhythm. Systolic murmur. No JVD. ABDOMEN: Soft, non-tender +bs EXTREMITIES: No edema. Non-tender. SKIN: No rashes or lesions. Warm. NEUROLOGIC: No focal neurological deficits. CN II-XII grossly intact PSYCHIATRIC: Cooperative. Appropriate mood and affect [facility] Medical History Primary osteoarthritis of left knee Acute pain of both knees Tinea corporis Tubular adenoma Non-rheumatic aortic stenosis Hemorrhoids Diverticulosis of colon History of CVA (cerebrovascular accident) Hyperkalemia Cobalamin deficiency CKD (chronic kidney disease) Iron deficiency anemia Temporal arteritis Idiopathic peripheral neuropathy Arthritis ELLIE (obstructive sleep apnea) Obesity Abnormal Pap smear of cervix Osteoporosis Goiter Hyperparathyroidism Hypercalcemia Vitamin D deficiency HLD (hyperlipidemia) HTN (hypertension) T2DM (type 2 diabetes mellitus) On beta anurag at home Chronic constipation Diabetes Anemia GERD (gastroesophageal reflux disease) Sleep apnea Asthma CAD (coronary artery disease) Angina pectoris HTN (hypertension) Surgical History Hx of heart artery stent Hx of cholecystectomy History of esophagogastroduodenoscopy (EGD) H/O colonoscopy Family History Father Liver problem Mother Diabetes Obesity Social History Household Members Other:: With Housing: House Alcohol intake: never Patient Tobacco Use Status: Never used Tobacco Current occupational status: disabled Sexual orientation: Straight/Heterosexual Gender identity: Female Physical Exam Vital Signs: Last Vital Signs Pulse 82 11/13/24 09:49 BP 144/72 H 11/13/24 09:49 Pulse Ox 97 11/13/24 09:49 Oxygen Delivery Method Room Air 11/13/24 09:49 BMI result Body Mass Index 32.2 Results Reviewed Results Reviewed: Laboratory Last Values Glucose (Clinic) 102 mg/dL (60-115) 11/13/24 09:56 Assessment & Plan Assessment & Plan (1) T2DM (type 2 diabetes mellitus): Code(s): E11.9 - Type 2 diabetes mellitus without complications Category: Medical Qualifiers: Diabetes mellitus residential insulin use: with long term care social worker use Diabetes mellitus complication status: with hyperglycemia Qualified Code(s): E11.65 - Type 2 diabetes mellitus with hyperglycemia; Z79.4 - buttermaker (current) use of insulin (2) Insulin use (long-term) in type 2 diabetes: Code(s): E11.9 - Type 2 diabetes mellitus without complications; Z79.4 - longterm (current) use of insulin Category: Medical Qualifiers: Diabetes mellitus complication status: with hyperglycemia Qualified Code(s): E11.65 - Type 2 diabetes mellitus with hyperglycemia; Z79.4 - longterm (current) use of insulin Plan Type 2 diabetes-improving control however is experiencing some dental laboratory manager hypoglycemia Will adjust her sliding scale at dinner down, continue current SS breakfast and lunch If hypoglycemia resolves will increase ozempic to 2mg before or at next visit She will return in 3 months or sooner as needed Treat hypoglycemia by rules of 15s Medications: Changed From insulin lispro (Humalog KwikPen (U-100) Insulin) Sliding Scale 6-16 subcutaneously 3 times a day; To insulin lispro (Humalog KwikPen (U-100) Insulin) Sliding Scale 6-16 subcutaneously with breakfast and lunch 150-200 take 6 units 201-250 take 10 units 251-300 take 12 units 301-350 take 14 units >350 take 16 units Take 2-10 units subcutaneous sliding scale with dinner 150-200 take 2 units 201-250 take 4 units 251-300 take 6 units 301-350 take 8 units >350 take 10 units 15 mL 3RF Coding Level of Care Code Est Pt Level 4 (23910) Diagnoses Type 2 diabetes mellitus with hyperglycemia, with long-term current use of insulin E11.65; Z79.4 Diabetes mellitus residential insulin use: with residential use Diabetes mellitus complication status: with hyperglycemia Type 2 diabetes mellitus with hyperglycemia, with long-term current use of insulin E11.65; Z79.4 Diabetes mellitus complication status: with hyperglycemia
[2024-11-13 10:00] LABS: Glucose, Whole Blood 102 mg/dL (60-115)
--- OUTSIDE RECORDS SUMMARY | 2024-11-13 10:53 | XMS_ITS | Encounter Summary ---
Author Organization [facility] Address [address] [place] [address] Phone Care Team Providers Care Candlemaking Laborer Name Role Phone James Trimble MD Primary Care Provide r Encounter Details Date Type Department Care Team (Late st Contact Info) Description 01/25/2021 Procedure Pass [facility], Ct Scan - [address] [address] Social History Tobacco Use Types Packs/Day Years [...] 01/25/2021 12:53 PM Corinne Rodriguez, LISA * [place] Suicide Severity Rating Scale (Screener/Recent Self-Report) Question [...] documented as of this encounter Care Teams Candlemaking Laborer Relationship Specialty Start Date End Date James Trimble MD [address] [place] [address] [place] [id number] PCP - General 03/16/17 documented as of this encounter Additional Source Comments The information contained in this document represents components of the legal health record. It is not the complete legal health record.[facility]
--- OUTSIDE RECORDS SUMMARY | 2024-11-13 10:53 | XMS_ITS | Encounter Summary ---
Author Organization [employer] [facility] Address [address] [place] [address] Care Team Providers Care Manager Traffic Name Role Phone James Flores MD Primary Care Provide r Reason for Visit * Reason Comments Med Refill Encounter Details Date Type Department Care Team (Late st Contact Info) Description 08/21/[address] [facility] [address] [place] [address] James Flores MD [address] [place], [place] [phone] Social History Tobacco Use Types Packs/Day Years [...] Care Team (Late st Contact Info) Description 12/10/2024 9:15 AM EDT Office Visit [facility] [address], [place] [phone] James Flores MD [address] [place], [place] [phone] documented as of this encounter Visit Diagnoses Not on filedocumented in this encounter Care Teams Manager Traffic Relationship Specialty Start Date End Date James Flores MD [address] [place] [id number] PCP - General Internal Medicine 02/04/14 documented as of this encounter
--- OUTSIDE RECORDS SUMMARY | 2024-11-13 10:53 | XMS_ITS | Patient Health Record ---
Author Organization [facility] Address [address] [place] [address] Care Team Providers Care Missile Control Pilot Name Role Phone Rudy Ashraf MD, James Primary Care Provide r Unavailable Moris Duron Jr Unavailable [phone] Reason For Referral No Information Plan Of Treatment No Information Insurance Providers Payer Name Payer Address Payer Phone Subscriber Number Group Number Insured Name Patient Relationship to Insured Coverage Start Date Coverage End Date MEDICARE OF [place] [address] [place] [id number] STEPHANI JOE Self - patient is the insured MEDICAID OF [facility] [address] [place] [address] [id number] STEPHANI JOE Self - patient is the insured
--- OUTSIDE RECORDS SUMMARY | 2024-11-13 10:53 | XMS_ITS | Encounter Summary ---
Author Organization [employer] Address [address] [place] [address] Care Team Providers Care Char Conveyor Tender Name Role Phone James Flores MD Primary Care Provide r Encounter Details Date Type Department Care Team (Late st Contact Info) Description 06/14/2022 Orders Only [facility] [address] [place], [place] [phone] Jaja Hammond LPN Social History Tobacco Use [...] Description 12/10/2024 9:15 AM EDT Office Visit [facility] [address] [place], [place] [phone] James Flores MD [address] [place] [address] documented as of this encounter Visit Diagnoses Not on filedocumented in this encounter Care Teams Char Conveyor Tender Relationship Specialty Start Date End Date James Flores MD [address] [place] [id number] PCP - General Internal Medicine 02/04/14 documented as of this encounter
--- OUTSIDE RECORDS SUMMARY | 2024-11-13 10:53 | XMS_ITS | Encounter Summary ---
Author Organization [id number] Address [address] [place] [address] Care Team Providers Care Physical Medicine Teacher Name Role Phone James Flores MD Primary Care Provide r Encounter Details Date Type Department Care Team (Late st Contact Info) Description 08/22/2022 Orders Only [facility] [address] [place], [place] [phone] Jaja Hammond LPN Social History Tobacco Use [...] Description 12/10/2024 9:15 AM EDT Office Visit [facility] [address] [place], [place] [phone] James Flores MD [address] [place] [address] documented as of this encounter Visit Diagnoses Not on filedocumented in this encounter Care Teams Physical Medicine Teacher Relationship Specialty Start Date End Date James Flores MD [address] [place] [id number] PCP - General Internal Medicine 02/04/14 documented as of this encounter
--- OUTSIDE RECORDS SUMMARY | 2024-11-13 10:54 | XMS_ITS | Encounter Summary ---
Author Organization [employer] Address [address] [facility] [place] [address] Care Team Providers Care Medical Fee Clerk Name Role Phone James Flores MD Primary Care Provide r Reason for Visit * Reason Comments Med Refill Encounter Details Date Type Department Care Team (Late st Contact Info) Description 05/10/2024 Refill [facility] [address] [place] [address] Coco Montiel NP [address] [place] [address] Mild intermittent asthma without complication Social History [...] Description 12/10/2024 9:15 AM EDT Office Visit [facility] [address] [place] [address] James Flores MD [address] [place] [address] documented as of this encounter Visit Diagnoses Diagnosis Mild intermittent asthma without complication documented in this encounter Additional Health Concerns Assessment Noted Time PHQ-9 Depression Total Score: 0 01/30/20 24 10:37 AM EST documented as of this encounter Care Teams Medical Fee Clerk Relationship Specialty Start Date End Date James Flores MD [address] [place] [address] PCP - General Internal Medicine 02/04/14 documented as of this encounter
--- OUTSIDE RECORDS SUMMARY | 2024-11-13 10:54 | XMS_ITS | Clinical Summary ---
Author Organization [employer] Address [address] [facility] [place] [address] [place] [address] Care Team Providers Care Wig Stylist Name Role Phone James Flores MD Primary [...] morning. 01/20/20 23 Active Calcium Citrate-Vitamin D (Nickerson Calcium/Vitamin D) 200-6.25 MG-MCG tablet TAKE 2 TABLETS BY MOUTH TWICE DAILY IN THE MORNING AND EVENING 01/20/20 23 Active Alcohol Swabs (Alcohol Prep) 70 % pads USE DIRECTED 100 each 11 12/26/19 24 Active polycarbophil (Fiber-Lax) 625 MG tablet Take 1,250 mg by mouth. 07/11/19 24 Active pioglitazone (Actos) 30 MG tablet Take 30 mg by mouth in the morning. 01/04/20 24 Active sodium zirconium cyclosilicate (Lokelma) 5 g packet MIX 1 PACKET WITH WATER AND DRINK TWICE A WEEK DIRECTED 06/20/19 22 Active predniSONE (Deltasone) 20 MG tablet Take [...] 14 DAYS 01/04/20 24 Active Continuous Glucose Energy Director (FreeStyle [place] 3 [place]) device USE DIRECTED 09/11/19 24 Active bisacodyl (Dulcolax) 10 MG suppository INSERT 1 SUPPOSITORY RECTALLY ONCE DAILY NEEDED FOR CONSTIPATION 03/21/19 24 Active Albuterol Sulfate 108 (90 Base) MCG/ACT aerosol powderIndications :Mild intermittent asthma without complication Inhale 2 puffs by mouth every 4 to 6 hours as needed 8.5 each 3 02/29/20 24 Active albuterol (2.5 MG/3ML) 0.083% nebulizer solutionIndicatio ns:Mild intermittent asthma without complication Take 3 mL by nebulization if needed in the morning, at noon, in the evening, and at bedtime (use 4-6 times a day as needed). 90 mL 3 02/29/20 24 Active nystatin (Mycostatin) 111753 UNIT/GM powderIndications :Tinea corporis Apply topically 2 times daily. 30 g 3 03/21/19 25 026 Active metoprolol tartrate (Lopressor) 50 MG tablet TAKE 1 TABLET BY MOUTH TWICE DAILY IN THE MORNING AND IN THE EVENING WITH FOOD 180 tablet 1 05/22/19 25 Active Diclofenac Sodium 1 % gel Apply 4 g topically if needed in the morning, at noon, in the evening, and at bedtime (pain). 100 g 06/20/19 25 Active senna (Senokot) 8.6 MG tablet Take 1 tablet (8.6 mg) by mouth if needed at bedtime for constipation. 120 tablet 06/20/19 25 Active Blood Pressure kit 1 each 2 times daily. 1 kit 06/20/19 25 026 Active hydrOXYzine HCl (Atarax) 25 MG tabletIndications :Anxiety Take 0.5 tablets (12.5 mg) by mouth every 8 (eight) hours if needed for anxiety. May take 1/2 to 1 tablet every 8 hours prn 30 tablet 06/21/19 25 Active amLODIPine (Norvasc) 5 MG tablet TAKE 1 TABLET BY MOUTH EVERY EVENING 30 tablet 5 06/26/19 25 Active loratadine (Claritin) 10 MG tabletIndications :Seasonal allergies TAKE 1 TABLET BY MOUTH EVERY MORNING 30 tablet 5 06/26/19 25 Active BD Pen Needle Nneka U/F 32G X 4 MM miscIndications:T ype 2 diabetes mellitus without complication, with long-term current use of insulin (CMS/HCC) USE DIRECTED FOUR TIMES DAILY 100 each 6 07/24/19 25 Active HumaLOG KWIKPEN 100 UNIT/ML injectionIndicati ons:Type 2 diabetes mellitus without complication, with long-term current use of insulin (CMS/HCC) INJECT 6 TO 16 UNITS SUBCUTANEOUSLY DIRECTED PER SLIDING SCALE BLOOD SUGAR 150-200 = 6 UNITS, 201-250 = 10U, 251-300 = 12U, 301-350 = 14U, > 351 = 16U 15 mL 3 07/24/19 25 Active meloxicam (Mobic) 15 MG tablet Take 1 tablet p.o./day x 2 weeks then 1 tablet/day as needed pain thereafter 30 tablet 07/25/19 25 Active acetaminophen (Tylenol) 500 MG tablet 31-2 tablets p.o. 3 times daily as needed pain- 60 tablet 07/25/19 25 Active clopidogrel (Plavix) 75 MG tablet TAKE 1 TABLET BY MOUTH EVERY EVENING 90 tablet 3 07/27/19 25 Active insulin glargine (Lantus SoloStar) 100 UNIT/ML penIndications:Ty pe 2 diabetes mellitus without complication, with long-term current use of insulin ([facility]) INJECT 35 UNITS SUBCUTANEOUSLY EVERY DAY 15 mL 2 08/14/19 25 Active atorvastatin (Lipitor) 80 MG tabletIndications :Mixed hyperlipidemia TAKE 1 TABLET BY MOUTH AT BEDTIME 30 tablet 5 08/23/19 25 Active Ferrous Sulfate (iron) 325 (65 Fe) MG tabletIndications :Chronic anemia TAKE 1 TABLET BY MOUTH THREE TIMES DAILY IN THE MORNING, AT NOON, AND IN THE EVENING 90 tablet 1 09/24/19 25 Active lidocaine (Lidoderm) 5 % patchIndications: Acute left-sided low back pain without sciatica Apply 1 patch topically Once per day. Remove & discard patch within 12 hours or as directed by MD. 30 patch 10/31/19 25 Active acetaminophen (Tylenol Extra Strength) 500 MG tabletIndications :Pain of toe of left foot,Acute left-sided low back pain without sciatica Take 2 tablets (1,000 mg) by mouth every 8 (eight) hours if needed for moderate pain for up to 10 days. 30 tablet 10/31/19 25 025 cyclobenzaprine (Flexeril) 5 MG tabletIndications :Acute left-sided low back pain without sciatica Take 1 tablet (5 mg) by mouth at bedtime for 10 days. 10 tablet 10/31/19 25 025 Active Problems Problem Noted Date Diagnosed Date Pain of toe of left foot 10/30/2024 Assessment & Plan (10/30/2024 7:47 PM EDT): X-ray ordered patient will be contacted with results Acute left-sided low back pain without sciatica 10/30/2024 Urinary incontinence 09/03/2024 Assessment & Plan (09/03/2024 3:07 PM EDT): Needs DME Will refer to Urology Primary osteoarthritis of left knee 07/24/2024 Assessment & Plan (09/03/2024 11:38 AM EDT): Under the care of Rheumatology Assessment & Plan (07/24/2024 2:35 PM EDT): [...] knee Temporal arteritis 07/23/2024 Assessment & Plan (09/03/2024 11:37 AM EDT): Patient seen by Dr Tyree sylvester on: C/o intractable headache, TA was in his differential, Pt's ESR came back high at: Pt was treated with Prednisone and referred for a TA biopsy that patient declined and Rheumatology ( pt has not been seen due to appointments being to far out. Pt did see an Mechanical Engineering Intern that did not see any abnormalitites and Neurology Dr. Sandoval who's assessment was temporal arteritis. He prescribed prednisone 2.5 mg daily, and mentioned follow-up office visit in 4 weeks. Pt tells me she was seen at the end of July apparently the dose of the prednisone was lowered ESR down to 45 from 98 in 07/2024 Assessment & Plan (07/23/2024 11:29 AM EDT): Patient seen by Dr Tyree sylvester on: C/o intractable headache, TA was in his differential, Pt's ESR came back high at: Pt was treated with Prednisone and referred for a TA biopsy that patient declined and Rheumatology ( pt has not been seen due to appointments being to far out. Pt did see an Mechanical Engineering Intern that did not see any abnormalitites and [...] of both knees 05/30/2024 Assessment & Plan (09/03/2024 11:39 AM EDT): Pt with c/o bilateral knee pain Right > Left Right knee: IMPRESSION: 1. No radiographic evidence of acute injury to the right knee. 2. Azjo-fy-poukjppy lateral compartment degenerative changes. Left: IMPRESSION: 1. No radiographic evidence of acute injury to the left knee. 2. Mild degenerative changes of the left knee most pronounced within the medial compartment. Seen by Ortho received injection right knee, declined one in the left Assessment & Plan (07/23/2024 11:31 AM EDT): Pt with c/o bilateral knee pain Right > Left x 3 weeks. Intensity 10/10 plain films both knees Right knee: IMPRESSION: 1. No radiographic evidence of acute injury to the right knee. 2. Qxml-rs-thclyyse lateral compartment degenerative changes. Left: IMPRESSION: 1. [...] > Left x 3 weeks. Intensity 10/10 Plan: Obtain plain films both knees Ortho [...] underwent Colpo with biopsies & ECC per [employer] notes from 04/2017 Colonoscopy: 07/2022 Tubular adenoma repeat 3 years Vaccines: Flu shot: tdap: 05/31/2013 Dexa scan:. 04/28/2015 showed osteopenia Assessment & Plan (01/30/2024 11:02 AM EST): Routine physical exam today: within normal limits Mammogram: NL : 02/22/2023 Pap Smear: 06/27/2023: Normal In 11/24/2016 ASCUS with positive HPV. Pt underwent Colpo with biopsies & ECC per [employer] notes from 04/2017 Colonoscopy: 07/2022 Tubular adenoma repeat 3-5 years Vaccines: Flu shot: tdap: 05/31/2013 Dexa scan:. 04/28/2015 showed osteopenia Assessment & Plan (01/19/2023 1:43 PM EST): Mammogram: NL : 01/29/2021 Pap Smear: 11/24/2016 ASCUS with positive HPV. Pt underwent Colpo with biopsies & ECC per [employer] notes from 04/2017 she was supposed to have a repeat with co test 04/2018 and if both neg then would f/u in 3 years records requested Colonoscopy: 07/2022 Tubular adenoma repeat 3-5 years Vaccines: Flu shot: tdap: 05/31/2013 Dexa scan:. 04/28/2015 showed osteopenia History of CVA (cerebrovascular accident) 2021 Assessment & Plan (05/30/2024 9:07 AM EDT): Hx of this Pt was admitted to [facility] from :12/31-12/22/2020 Patient presented to ED [...] Hx of this Pt was admitted to [facility] from 10:12/31-12/22/2020 Patient presented to ED [...] chronic kidney disease 01/31/2017 Assessment & Plan (09/03/2024 11:43 AM EDT): Pt here for follow up in terms of her Diabetes DM improving Under the care of endocrinology, last seen 07/31/2024 She is on a regimen of: Lantus 38 units sc q pm, Humalog Kwik pen and Ozempic 0.5 mg q week She is off Actos due to interaction with medications and off Victoza. Pt off Metformin due to CKD. A1c: 8.2 09/03/2024 Eye exam per Endocrinology Note: 10/2023, Pt [...] on a daily basis Assessment & Plan (05/30/2024 9:46 AM EDT): [...] Plan (01/31/2023 11:27 AM EST): Seen at [facility] 01/28/2023 with an asthma exacerbation Doing better now CKD stage 3 secondary to diabetes 11/26/2015 Assessment & Plan (09/03/2024 11:41 AM EDT): Under the care of Nephrology, Avoid nephrotoxic agents, On Lokelma and lasix Assessment & Plan (01/30/2024 10:42 AM EST): [...] ago 2 yr ago Triglycerides <150 mg/dL 178 High 178 R, CM 200 High CM Comment: Desirable Triglyceride: less than 150 mg/dLBorderline High Triglyceride 150-199 mg/dLHigh Triglyceride: 200-499 mg/dLVery High Triglyceride: greater than or equal to 5OO mg/dL Cholesterol <200 mg/dL 152 147 R, CM Comment: Desirable Cholesterol: less than 200 mg/dLBorderline High Cholesterol: 200-239 mg/dLHigh Cholesterol: greater than 239 mg/dL LDL Cholesterol Calculated <100 mg/dL 71 68 R, CM Comment: Desirable LDL: less than 100 mg/dLNear Optimal/Above Optimal LDL: 110-129 mg/dLBorderline High LDL: 130-159 mg/dLHigh LDL: 160-189 mg/dLVery High LDL: greater than or equal to 190 mg/dL HDL Cholesterol >40 mg/dL 46 44 R, CM 46 Low R Currently on a regimen of: Lipitor [...] Lipid profile Hypertension 11/24/2011 Assessment & Plan (09/03/2024 11:41 AM EDT): Patient with Hypertension currently controlled on a regimen of: Metoprolol 50 mg. BID and Amlodipine 5 mg po daily Unable to tolerate ACEs due to hyperkalemia Most recent electrolytes, Bun and Creatinine done on: Lab Results Component Value Date NA 143 08/25/2024 NA 144 07/25/2024 K 4.8 08/25/2024 K 4.4 07/25/2024 CL 106 08/25/2024 CL 111 (H) 07/25/2024 BUN 36 (H) 08/25/2024 BUN 34 (H) 07/25/2024 CREATININE 1.52 (H) 08/25/2024 CREATININE 1.47 (H) 07/25/2024 Plan: Continue current regimen Pt followed by Nephrology, although she has not been seen in a while, will schedule a follow up patient advised to adhere to a low sodium diet, encouraged about medication compliance, counseled about weight loss 4 month f/u Assessment & Plan (05/30/2024 9:24 AM EDT): [...] vessel disease. Dr Melchor Weber put a ESTEPHAINE. she was under the care of Dr Dhaliwal, last seen on: 03/25/2015 His impression was that pt had CAD with 3 vessel disease and negative nuclear stress test at [facility] . Due to her Hx of [...] disease and negative nuclear stress test at [facility] . Due to her recent CVA [...] disease and negative nuclear stress test at [facility] . Due to her recent CVA [...] Encounters Date Type Department Care Team Description 11/13/2024 Orders Only GENERIC EXTERNAL DATA DEPARTMENT Provider, Generic External Data 11/01/2024 Results Follow-Up [facility] [address] [place] [id number] Ruchi Ayala MD XR Foot 3+ Views Left 10/31/2024 Orders Only GENERIC EXTERNAL DATA DEPARTMENT Provider, Generic External Data 10/30/2024 6:00 PM EDT Office Visit [facility] [address] [place] [id number] Ruchi Ayala MD Pain of toe of left foot (Primary Dx); Acute left-sided low back pain without sciatica 10/30/2024 Travel 10/16/[address] [address] James Flores MD Durable Medical Equipment 10/07/[address] [address] James Flores MD Durable Medical Equipment 10/02/[address] [address] James Flores MD Med Refill 09/20/[address] [address] James Flores MD Chronic anemia 09/11/2024 Orders Only GENERIC EXTERNAL DATA DEPARTMENT Provider, Generic External Data 09/06/[address] [address] James Flores MD Durable Medical Equipment 09/03/2024 11:15 AM EDT Office Visit [address] [address] James Flores MD Type 2 diabetes mellitus with stage 3a chronic kidney disease, with long-term current use of insulin (CMS/HCC) (Primary Dx); Temporal arteritis (CMS/HCC); Primary osteoarthritis of left knee; Acute pain of both knees; Breast cancer screening by mammogram; Hypertension, unspecified type; CKD stage 3 secondary to diabetes ([facility]); Urinary incontinence, unspecified type 09/03/2024 Travel 09/03/2024 Telephone [facility] [address] [place] [phone] James Flores MD Paperwork/Forms 09/03/[address] [address] James Flores MD Referral 09/02/[address] [phone] James Flores MD chart prep 08/25/2024 Orders Only GENERIC EXTERNAL DATA DEPARTMENT Provider, Generic External Data 08/22/2024 Refill [facility] [address] [place] [address] James Flores MD Mixed hyperlipidemia from Last 3 Months Immunizations Immunization Administration [...] Sign Reading Time Taken Comments Blood Pressure 138/62 10/30/2024 5:49 PM EDT Pulse 81 10/30/2024 5:49 PM EDT Temperature 36.6 C (97.9 F) 10/30/2024 5:49 PM EDT Respiratory Rate 16 10/30/2024 5:49 PM EDT Oxygen Saturation 100% 09/03/2024 11:29 AM EDT Inhaled Oxygen Concentration - - Weight 79.6 kg (175 lb 6.4 oz) 10/30/2024 5:49 P M EDT Height 147.3 cm (4' 10 ) 09/03/2024 11:29 AM EDT Body Mass Index 36.66 09/03/2024 11:29 AM EDT Plan of Treatment Upcoming Encounters Date Type Department Care Team (Late st Contact Info) Description 12/10/2024 9:15 AM EDT Office Visit [facility] [address] [place], [place] [phone] James Flores MD [address] [place] [address] Health Maintenance Due Date Last Done Comments CT Colonography 1955 FIT DNA/Cologuard 1955 FIT 1955 FOBT 1955 Sigmoidoscopy 1955 Hepatitis C Screening 05/18/1973 Pneumococcal Vaccine: 50+ Years (1 of 2 - PCV) 05/18/1974 RSV Patients and Patients Aged 60 years or older (1 - Risk 60-74 years 1-dose series) 2015 Zoster Vaccines (3 of 3) 09/14/2021 07/20/2021, 08/0 11/2015 COVID-19 Vaccine (3 - season) 2024 08/31/2020, 08/01/2020 Influenza Vaccine (#1) 2024 , 11/23/2022, 11/23/2022, Additional history exists Alcohol/Substance Use Screening 01/29/2025 01/30/2024 Depression Screening 01/29/2025 01/30/2024, 01/30/20 24 Diabetes: Hemoglobin A1C 01/31/2025 08/2 025, 09/03/2024, 03/21/2024, Additional history exists SDOH Screening 05/30/2025 05/30/2024 Colonoscopy 07/11/2025 07/11/2022 Colorectal Cancer Screening 07/11/2025 Tobacco Screening 09/03/2025 09/03/2024 Diabetes: Foot Exam 10/30/2025 10/30/2024, 02/07/2024, 02/07/2024, Additional history exists Lipid Panel 10/31/2025 10/31/2024, 01/12, 01/19/2023, Additional history exists Eye Exam 06/20/2026 06/20/2024 Mammogram 11/04/2026 11/04/2024, 02/10, 01/29/2021, Additional history exists HPV/Cotest 01/17/2027 01/17/2022, 09/2021, 11/24/2016 Pap Smear 06/21/2028 06/22/2023, 01/17/2022 DTaP/Tdap/Td Vaccines (3 - Td or Tdap) 05/30/2034 05/30/2024, 05/31/2013, 11/27/2002, Additional history exists HIB Vaccines Aged Out [...] Associated Diagnosis Comments GLUCOSE, WHOLE BLOOD Routine 11/13/2024 9:56 AM EDT BI MAMMOGRAM SCREENING TOMOSYNTHESIS BILATERAL Routine 11/04/2024 11:10 AM EDT Breast cancer screening by mammogram PHOSPHOLIPASE A2 RECEPTOR (PLA2R) AB PANEL Routine 10/31/2024 10:27 AM EDT IMMUNOFIXATION, URINE Routine 10/31/2024 10:27 AM EDT IMMUNOFIXATION, SERUM Routine 10/31/2024 10:27 AM EDT PROTEINASE-3 ANTIBODY Routine 10/31/2024 10:27 AM EDT MYELOPEROXIDASE ANTIBODY (MPO) Routine 10/31/2024 10:27 AM EDT GLOMERULAR BASEMENT MEMBRANE ANTIBODY (IGG) Routine 10/31/2024 10:27 AM EDT DNA (DS) ANTIBODY Routine 10/31/2024 10: 27 AM EDT COMPLEMENT COMPONENT C4C Routine 10/31/2024 10:27 AM EDT COMPLEMENT COMPONENT C3C Routine 10/31/2024 10:27 AM EDT HEPATITIS B SURFACE ANTIGEN, EIA Routine 10/31/2024 10:27 AM EDT HEPATITIS B CORE AB TOTAL Routine 10/31/2024 10:27 AM EDT PROTEIN CREATININE RATIO, URINE Routine 10/31/2024 10:27 AM EDT LIPID PANEL, STANDARD Routine 10/31/2024 10:27 AM EDT COMPREHENSIVE METABOLIC PANEL Routine 10/31/2024 10:27 AM EDT HEMOGLOBIN A1C Routine 10/31/2024 10:27 AM EDT C-REACTIVE PROTEIN Routine 10/31/2024 10 :27 AM EDT Acute intractable headache, unspecified headache type XR FOOT 3+ VIEWS LEFT Routine 10/31/2024 10:14 AM EDT Pain of toe of left foot GLUCOSE, WHOLE BLOOD Routine 09/11/2024 9:39 AM EDT POCT GLYCATED HEMOGLOBIN, TOTAL Routine 09/03/2024 11:40 AM EDT Type 2 diabetes mellitus with stage 3a chronic kidney disease, with long-term current use of insulin ([facility]) POCT GLUCOSE Routine 09/03/2024 11:38 AM EDT Type 2 diabetes mellitus with stage 3a chronic kidney disease, with long-term current use of insulin ([facility]) COMPREHENSIVE METABOLIC PANEL Routine 08/25/2024 11:00 PM EDT URINALYSIS, COMPLETE, WITH REFLEX TO CULTURE Routine 08/25/2024 11:00 PM EDT CBC Routine 08/25/2024 11:00 PM EDT CULTURE, URINE, ROUTINE Routine 08/26/19 11:00 PM EDT AMB REFERRAL TO OPHTHALMOLOGY Urgent 06/20/2024 Giant cell arteritis ([facility]) PAP SMEAR Routine 06/22/2023 3:20 PM EDT HM COLONOSCOPY Routine 07/11/2022 3:53 PM EDT ZZZ HISTORICAL HPV E6/E7 RFLX DANIAL 16 18/45 Routine 01/17/2022 4:22 PM EST from Last 3 Months or Most Recently Relevant to Health Maintenance Results * Glucose, Whole Blood (11/13/2024 9:56 AM EDT) Only the most recent of2 resultswithin the time period is included. Glucose, Whole Blood 102 60 - 115 mg/dL [facility] Comment:METER #: [id number] 0Testing performed in the Endocrinology Department [address] , [address], [facility]. 11/13/2024 9:56 AM EDT 11/13/2024 10:00 AM EDT us Generic External Data Provider LAB BLOOD ORDERAB LES Final Result [facility] [address] [place] [address] [phone] * BI Mammogram Screening Tomosynthesis Bilateral (11/04/2024 11:10 AM EDT) Anatomical Region Laterality Modality Breast Bilateral Mammography 11/04/2024 11:1 0 AM EDT Narrative 11/08/2024 5:49 PM EDT [facility] [address] [place] [address] Mammography Report Signed Patient: Jayne Lane MR#: [id number] : 1955 Acct:[id number] Age/Sex: 69 / F ADM Date: 11/04/24 Loc: HO.MAMMO Attending Dr: James Trimble MD Ordering Physician: James Trimble MD Resu lts: 1Negative Date of Service: 11/04/24 Follow Up: 1 Year From [facility] Mammogram Procedure(s): MM tomosynthesis screening BI Accession Number(s): [id number] cc: James Trimble MD EXAMINATION: MM SCREENING DIGITAL BREAST TOMOSYNTHESIS, BILATERAL CLINICAL INFORMATION: Screening. Asymptomatic. COMPARISON: Comparison made to multiple prior, most recent February 22, 2023, and most remote January 08, 2019. TECHNIQUE: Digital breast tomosynthesis is performed in both the craniocaudal and mediolateral oblique views along with computer-aided detection (CAD). Synthesized 2D images are generated from the tomosynthesis. FINDINGS: BREAST COMPOSITION: There are scattered areas of fibroglandular density (ACR BI-RADS breast composition Category b). BILATERAL BREASTS: No significant masses, suspicious calcifications or other abnormalities are seen in either breast. MM/MM tomosynthesis screening BI IMPRESSION: BILATERAL BREASTS: Negative, no mammographic evidence of malignancy. Normal interval follow-up is recommended in 12 months. ASSESSMENT: BI-RADS 1 - Negative RECOMMENDATION: Routine annual mammography screening. FOLLOW-UP: 1 year F/U This examination should not preclude the clinical evaluation of a suspicious palpable abnormality. This patient's information was entered into a reminder system with a target due date for their next mammogram. Electronically signed by: Tahir Ortiz MD 11/08/2024 05:46 PM EDT Dictated By: Tahir Ortiz MD Signed By: <Electronically signed by Tahir Ortiz MD in OV> 11/08/24 1746 DD/ 1110 TD/TT: 11/04/24 1133 Glove Cutter: Procedure Note Donotuseinterpreter, Image - 11/08/2024 [facility] [address] [place] [address] Mammography Report Signed Patient: Jayne LaneMR#: [id number] : 6Acct:[id number] Age/Sex: 69 / FADM Date: 11/04/24 Loc: HO.MAMMO Attending Dr: James Trimble MD Ordering Physician: James Trimble MDResu lts: 1Negative Date of Service: 11/04/24Follow Up: 1 Year From Orig inal Mammogram Procedure(s): MM tomosynthesis screening BI Accession Number(s): [id number] cc: James Trimble MD EXAMINATION: MM SCREENING DIGITAL BREAST TOMOSYNTHESIS, BILATERAL CLINICAL INFORMATION: Screening. Asymptomatic. COMPARISON: Comparison made to multiple prior, most recent February 22, 2023, and most remote January 08, 2019. TECHNIQUE: Digital breast tomosynthesis is performed in both the craniocaudal and mediolateral oblique views along with computer-aided detection (CAD). Synthesized 2D images are generated from the tomosynthesis. FINDINGS: BREAST COMPOSITION: There are scattered areas of fibroglandular density (ACR BI-RADS breast composition Category b). BILATERAL BREASTS: No significant masses, suspicious calcifications or other abnormalities are seen in either breast. MM/MM tomosynthesis screening BI IMPRESSION: BILATERAL BREASTS: Negative, no mammographic evidence of malignancy. Normal interval follow-up is recommended in 12 months. ASSESSMENT: BI-RADS 1 - Negative RECOMMENDATION: Routine annual mammography screening. FOLLOW-UP: 1 year F/U This examination should not preclude the clinical evaluation of a suspicious palpable abnormality. This patient's information was entered into a reminder system with a target due date for their next mammogram. Electronically signed by: Tahir Ortiz MD 11/08/2024 05:46 PM EDT RP Workstation: [id number] Dictated By: Tahir Ortiz MD Signed By: <Electronically signed by Tahir Ortiz MD in OV> 11/08/24 1746 DD/ 1110 TD/TT: 11/04/24 1133 Glove Cutter: us James Ashraf MD IMG BI PROCEDURES Fin al Result * Proteinase-3 Antibody (10/31/2024 10:27 AM EDT) Proteinase-3 Antibody <1.0 [facility] Comment:Value Interpretation ----- <1.0 No Antibody Detected > or = 1.0 Antibody DetectedAutoantibodies to proteinase-3 (ME-3) are accepted ascharacteristic for granulomatosis with polyangiitis(GPA, Cresenico's), and are detectable in 95% of thehistologically proven cases. The cytoplasmic IFApattern, (c-ANCA), is based largely on autoantibody toPR-3 which serves as the primary antigen.These autoantibodies are present in active disease.THIS TEST WAS PERFORMED AT:[facility] [place] [id number] CHAND MD 10/31/2024 10:2 7 AM EDT 10/31/2024 11:25 AM EDT us Generic External Data Provider LAB BLOOD ORDERAB LES Final Result Performing Organization Address [facility] Co de Phone Number [facility] [address] [place] [address] [phone] * Myeloperoxidase Antibody (MPO) (10/31/2024 10:27 AM EDT) Myeloperoxidase Antibody <1.0 AI [facility] Comment:Value Interpretation ----- <1.0 No Antibody Detected > or = 1.0 Antibody DetectedAutoantibodies to myeloperoxidase (MPO) are commonlyassociated with the following small-vesselvasculitides: microscopic polyangiitis,polyarteritis nodosa, Churg-Kelton syndrome,necrotizing and crescentic glomerulonephritis andoccasionally granulomatosis with polyangiitis(GPA, Cresencio's). The perinuclear IFA pattern,(p-ANCA) is based largely on autoantibody tomyeloperoxidase which serves as the primary antigen.These autoantibodies are present in active disease.THIS TEST WAS PERFORMED AT:[facility] [place] [phone] CHAND MD 10/31/2024 10:2 7 AM EDT 10/31/2024 11:25 AM EDT Generic External Data Provider LAB BLOOD ORDERAB LES Final Result Performing Organization Address [facility] Co de Phone Number [facility] [address] [place] [phone] * (ABNORMAL) Protein Creatinine Ratio, Urine (10/31/2024 10:27 AM EDT) Creatinine, Urine 133.81 mg/dL [facility] Protein, Total, Random Urine 58(H) <12 mg/dL [facility] Protein/Creati nine Ratio, Ur 0.43(H) <0.2 [facility] Comment:The spot urine prote in:creatinine ratio may increase to 0.3during normal . 10/31/2024 10:2 7 AM EDT 10/31/2024 11:10 AM EDT us Generic External Data Provider LAB URINE ORDERAB LES Final Result Performing Organization Address [facility] Co de Phone Number [facility] [address] [place] [address] [phone] * Phospholipase A2 Receptor (PLA2R) Antibody Panel (10/31/2024 10:27 AM EDT) Pathologist [facility] [place] Phospholipase A2 Receptor (PLA2R) Ab, ABHIJEET <4 RU/mL [facility] Comment:Reference Range: <14 : NEGATIVE 14-19: BORDERLINE >19: POSITIVE Phospholipase A2 Receptor (PLA2R) Ab, IFA NEGATIVE NEGATIVE [facility] Comment:THIS TEST WAS PERFOR MED AT:[facility]/[employer] [id number] [place] [address]AQYWTOLEG DELATORRE MD,PHD,SHU 10/31/2024 10:2 7 AM EDT 10/31/2024 11:25 AM EDT Generic External Data Provider LAB BLOOD ORDERAB LES Final Result Performing Organization Address [facility] de Phone Number [facility] [address] [place] [address] [phone] * Immunofixation (SONIA), Urine (10/31/2024 10:27 AM EDT) Pathologist [facility] [place] SONIA Interpretation [facility] Comment:No monoclonal protei ns detected.THIS TEST WAS PERFORMED AT:[facility] [address] [address]TQZMHKEVEN CHAND MD 10/31/2024 10:2 7 AM EDT 10/31/2024 11:10 AM EDT us Generic External Data Provider LAB URINE ORDERAB LES Final Result Performing Organization Address [facility] Co de Phone Number [facility] [address] [place] [phone] * Glomerular Basement Membrane Antibody (IgG) (10/31/2024 10:27 AM EDT) Glomerular Basement Memebrane Antibody (IgG) <1.0 AI [facility] Comment:Value Interpretatio n ----- <1.0 No Antibody Detected > or = 1.0 Antibody DetectedTHIS TEST WAS PERFORMED AT:[facility] [address] [address]NRSJWKEVEN CHAND MD 10/31/2024 10:2 7 AM EDT 10/31/2024 11:25 AM EDT Generic External Data Provider LAB BLOOD ORDERAB LES Final Result Performing Organization Address [facility]/ZIP Co de Phone Number [facility] [address] [place] [phone] * DNA (ds) Antibody (10/31/2024 10:27 AM EDT) Anti DNA DS Antibody 1 IU/mL [facility] Comment:IU/mL Interpretation < or = 4 Negative 5-9 Indeterminate > or = 10 PositiveTHIS TEST WAS PERFORMED AT:[facility] [address] [address]KMSVEKEVEN CHAND MD 10/31/2024 10:2 7 AM EDT 10/31/2024 11:25 AM EDT Generic External Data Provider LAB BLOOD ORDERAB LES Final Result Performing Organization Address City/[facility]/ZIP Co de Phone Number [facility] [address] [place] [phone] * Hepatitis B surface antigen, EIA (10/31/2024 10:27 AM EDT) Hepatitis B Surface Ag Negative Negative [facility] 10/31/2024 10:2 7 AM EDT 10/31/2024 11:25 AM EDT us Generic External Data Provider LAB BLOOD ORDERAB LES Final Result Performing Organization Address [facility] de Phone Number [facility] [address] [place] [phone] * Hepatitis B Core Antibody, Total (10/31/2024 10:27 AM EDT) Pathologist [facility] [place] Hepatitis B Core Antibody Nonreactive Nonreactive [facility] 10/31/2024 10:2 7 AM EDT 10/31/2024 11:25 AM EDT Generic External Data Provider LAB BLOOD ORDERAB LES Final Result Performing Organization Address [facility] Number [facility] [address] [place] [phone] * Immunofixation, Serum (10/31/2024 10:27 AM EDT) Pathologist [facility] [place] IMMUNOGLOBULIN G 885 600 - 1540 mg/dL [facility] IMMUNOGLOBULIN A 199 70 - 320 mg/dL [facility] Immunoglobulin M 74 50 - 300 mg/dL [facility] Comment:THIS TEST WAS PERFOR MED AT:[facility] [place] [phone] CHAND MD Immunofixation Result SEE NOTE [facility] Comment:Normal pattern. No m onoclonal proteins detected. 10/31/2024 10:2 7 AM EDT 10/31/2024 11:25 AM EDT Generic External Data Provider LAB BLOOD ORDERAB LES Final Result Performing Organization Address [facility] de Phone Number [facility] [address] [place] [phone] * Complement Component C3c (10/31/2024 10:27 AM EDT) Pathologist [facility] [place] Complement C3 171 83 - 193 mg/dL [facility] Comment:THIS TEST WAS PERFOR MED AT:[facility] [address] [address]GQMQUXAVIER CHAND MD 10/31/2024 10:2 7 AM EDT 10/31/2024 11:21 AM EDT Generic External Data Provider LAB BLOOD ORDERAB LES Final Result Performing Organization Address City/[facility]/ZIP Co de Phone Number [facility] [address] [place] [phone] * Complement Component C4c (10/31/2024 10:27 AM EDT) Complement C4 37 15 - 57 mg/dL [facility] Comment:THIS TEST WAS PERFOR MED AT:[facility] [address] [address]VCSCLXAVIER CHAND MD 10/31/2024 10:2 7 AM EDT 10/31/2024 11:21 AM EDT [facility] External Data Provider LAB BLOOD ORDERAB LES Final Result Performing Organization Address [facility] Co de Phone Number [facility] [address] [place] [phone] * C-reactive Protein (10/31/2024 10:27 AM EDT) C Reactive Protein <0.10 < or = 0.50 mg/dL [facility] Blood Venous blood specimen / Unknown 10/31/2024 10:27 AM EDT 10/31/2024 11:25 AM EDT Ludwin Sylvester MD LAB BLOOD ORDERABLES Final Resul t Performing Organization Address City/[facility] Co de Phone Number [facility] [address] [place] [phone] * (ABNORMAL) Hemoglobin A1c (10/31/2024 10:27 AM EDT) Hemoglobin A1c 7.7(H) <6.0 % [facility] Comment:Hemoglobin A1C Refer ence Range Adults: 4.8 - 6.0 % Non diabetic: < 6.0 % Goal: < 7.0 %Additional Action Suggested: > 8.0 %Note: Hemoglobin A1c results are invalid for patients with abnormal amounts of HbF. Blood transfusions may impact the HbA1c concentration in the patient sample. Estimated Average Glucose 174 mg/dL [facility] Comment:eAG = Estimated ave rage glucose which is %A1C expressed asaverage glucose, using the formula of the J4O-OgpqgcuDiieoju Glucose study (ADAG), Diabetes Care, Vol.31,#8,Oct. 2007 10/31/2024 10:2 7 AM EDT 10/31/2024 11:25 AM EDT us Generic External Data Provider LAB BLOOD ORDERAB LES Final Result Performing Organization Address City/State/[facility] Co de Phone Number [facility] [address] [place] [address] [phone] * Lipid Panel, Standard (10/31/2024 10:27 AM EDT) Triglycerides 126 <150 mg/dL [facility] Comment:Desirable Triglyceri de: less than 150 mg/dLBorderline High Triglyceride 150-199 mg/dLHigh Triglyceride: 200-499 mg/dLVery High Triglyceride: greater than or equal to 5OO mg/dL Cholesterol 139 <200 mg/dL [facility] Comment:Desirable Cholestero l: less than 200 mg/dLBorderline High Cholesterol: 200-239 mg/dLHigh Cholesterol: greater than 239 mg/dL LDL Cholesterol Calculated 71 <100 mg/dL [facility] Comment:Desirable LDL: less than 100 mg/dLNear Optimal/Above Optimal LDL: 110- 129 mg/dLBorderline High LDL: 130-159 mg/dLHigh LDL: 160-189 mg/dLVery High LDL: greater than or equal to 190 mg/dL HDL Cholesterol 43 >40 mg/dL [facility] Comment:Desirable HDL: great er than 40 mg/dL Note: This HDL assay may give artificially low results in patients with liver disease. 10/31/2024 10:2 7 AM EDT 10/31/2024 11:25 AM EDT us Generic External Data Provider LAB BLOOD ORDERAB LES Final Result [facility] [address] [place] [phone] * (ABNORMAL) Comprehensive Metabolic Panel (10/31/2024 10:27 AM EDT) Only the most recent of2 resultswithin the time period is included. Sodium 143 135 - 145 mmol/L [facility] Potassium 4.2 3.3 - 5.1 mmol/L [facility] Chloride 106 96 - 108 mmol/L [facility] Carbon Dioxide 29 22 - 29 mmol/L [facility] Anion Gap 12 12 - 20 [facility] Urea Nitrogen (BUN) 26(H) 9 - 16 mg/dL [facility] Creatinine, Serum 1.38 0.5 - 1.4 mg/dL [facility] Estimated Glomerular Filt Rate 38 [facility] Comment:Chronic Kidney Disea se: Estimated GFR < 60 mL/min/1.83u5Gpsedb Kidney Disease: Estimated GFR < 15 mL/min/1.73m2 Glucose 141(H) 60 - 115 mg/dL [facility] Calcium 10.0 8.4 - 10.2 mg/dL [facility] Bilirubin, Total 0.3 0.0 - 1.0 mg/dL [facility] Aspartate Amino Transferase 29 5 - 31 U/L [facility] Alanine Aminotransferase 17 0 - 31 U/L [facility] Total Protein 7.1 6.5 - 8.0 g/dL [facility] Albumin Level 4.4 3.5 - 5.0 g/dL [facility] Alkaline Phosphatase 57 39 - 117 U/L [facility] 10/31/2024 10:2 7 AM EDT 10/31/2024 11:25 AM EDT us Generic External Data Provider LAB BLOOD ORDERAB LES Final Result Performing Organization Address City/State/[facility] Co de Phone Number [facility] [address] [place] [phone] * XR Foot 3+ Views Left (10/31/2024 10:14 AM EDT) Anatomical Region Laterality Modality Lower Extremities, Foot Left Radiogra phic Imaging 10/31/2024 10:1 4 AM EDT Narrative 10/31/2024 10:28 AM EDT [address] [address] XRay Report Signed Patient: Jayne Lane MR#: [id number] : 1955 Acct:[id number] Age/Sex: 69 / F ADM Date: 10/31/24 Loc: HO.HHCX Attending Dr: Ruchi Osman MD Ordering Physician: Ruchi Ayala MD Date of Service: 10/31/24 Procedure(s): XR foot LT min 3V Accession Number(s): [id number] cc: Ruchi Ayala MD; James Trimble MD EXAMINATION: XR FOOT, LEFT CLINICAL INFORMATION: pain after near fall COMPARISON: None available. TECHNIQUE: AP, lateral, and oblique views of the left foot. FINDINGS: There is osteopenia. There is hallux valgus deformity. There are marginal sites along the lateral first MTP joint. The joint spaces preserved. There is a cortical step-off involving the lateral metadiaphysis of the fifth proximal phalanx. There is soft tissue swelling in the same region. There are moderate enthesophytes involving the plantar fascia and Achilles attachment onto calcaneus. Atherosclerotic calcifications are present. XR/XR foot LT min 3V IMPRESSION: Hallux valgus deformity with mild osteoarthritis of the first MTP joint. Age-indeterminate fracture of the central diaphysis of the fifth proximal phalanx. Calcaneal spurs. Electronically signed by: Carlos Macias MD 10/31/2024 10:25 AM EDT RP Dictated By: Carlos Macias MD Signed By: <Electronically signed by Carlos Macias MD in OV> 10/31/24 1025 DD/ 1014 TD/TT: 10/31/24 1018 Glove Cutter: Procedure Note Donotuseinterpreter, Image - 10/31/2024 [facility] [address] [place] [address] XRay Report Signed Patient: Jayne LaneMR#: [id number] : 1955cct:[id number] Age/Sex: 69 / FADM Date: 10/31/24 Loc: HO.HHCX Attending Dr: Ruchi Osman MD Ordering Physician: Ruchi Ayala MD Date of Service: 10/31/24 Procedure(s): XR foot LT min 3V Accession Number(s): [id number] cc: Ruchi Ayala MD; James Trimble MD EXAMINATION: XR FOOT, LEFT CLINICAL INFORMATION: pain after near fall COMPARISON: None available. TECHNIQUE: AP, lateral, and oblique views of the left foot. FINDINGS: There is osteopenia. There is hallux valgus deformity. There are marginal sites along the lateral first MTP joint. The joint spaces preserved. There is a cortical step-off involving the lateral metadiaphysis of the fifth proximal phalanx. There is soft tissue swelling in the same region. There are moderate enthesophytes involving the plantar fascia and Achilles attachment onto calcaneus. Atherosclerotic calcifications are present. XR/XR foot LT min 3V IMPRESSION: Hallux valgus deformity with mild osteoarthritis of the first MTP joint. Age-indeterminate fracture of the central diaphysis of the fifth proximal phalanx. Calcaneal spurs. Electronically signed by: Carlos Macias MD 10/31/2024 10:25 AM EDT RP Dictated By: Carlos Macias MD Signed By: <Electronically signed by Carlos Macias MD in OV> 10/31/24 1025 DD/ 1014 TD/TT: 10/31/24 1018 Glove Cutter: Ruchi Osman MD IMG XR PROCEDURES Fin al Result * (ABNORMAL) POCT HGB A1C (09/03/2024 11:40 AM EDT) Hemoglobin A1C 8.2(A) 4.0 - 6.0 % QC Media Lot # [id number] Lot# Expiration Date , Blood 09/03/2024 11:4 0 AM EDT James Ashraf MD POINT OF CARE TEST EN TER/EDIT ORDERABLES Final Result * (ABNORMAL) POCT Glucose (09/03/2024 11:38 AM EDT) Glucose Blood, POC 266(A) 60 - 200 mg/dL QC Media Lot # [id number] Lot# Expiration Date Blood Capillary blood specimen / Unknown 09/03/2024 11:38 AM EDT Result [facility] James Ashraf MD POINT OF CARE TEST EN TER/EDIT ORDERABLES Final Result * (ABNORMAL) Urinalysis, Complete, with Reflex to Culture (08/25/2024 11:00 PM EDT) Color Urine Red(A) [facility] Appearance Urine Cloudy [facility] PH 6.0 5.0 - 9.0 [facility] Glucose Urine UA Negative Negative mg/dL [facility] Urine Blood Large (3+)(A) Negative [facility] Specific Meta - Urine 1.015 1.005 - 1.025 [facility] Urine Protein 100 (2+)(A) Neg-Trace mg/dL [facility] Urine Ketones Trace Negative mg/dL [facility] Nitrite Urine Negative Negative [facility] Leukocyte Esterase Urine Large (3+)(A) Negative [facility] RBC Urine >20(A) 0 - 2 /HPF [facility] Urine WBC >50(A) 0 - 5 /HPF [facility] Urine Squamous Epithelial Cell 0-2 0 - 2 /HPF [facility] Urine Bacteria 1+ None Seen [facility] Hyaline Casts, Urine 0-2 0 - 2 /LPF [facility] 08/25/2024 11:0 0 PM EDT 08/25/2024 11:05 PM EDT Narrative [facility] - 08/25/2024 11:28 PM EDT [id number], Clean C[employer] us Generic External Data Provider LAB URINE ORDERAB LES Final Result [facility] [address] [place] [address] [phone] * (ABNORMAL) CBC (08/25/2024 11:00 PM EDT) White Blood Count 7.6 4.8 - 10.8 X10*3/uL [facility] Red Blood Count 3.56(L) 4.20 - 5.50 X10*6/uL [facility] Hemoglobin 11.0(L) 12.0 - 16.0 g/dl [facility] Hematocrit 33.6(L) 37.0 - 47.0 % [facility] Mean Corpuscular Volume 94.4 80.0 - 98.0 fL [facility] Mean Corpuscular Hemoglobin 30.9 27.0 - 33.0 pg [facility] Mean Corpuscular HGB Conc 32.7 31.0 - 35.0 g/dl [facility] Red Cell Distribution Width 13.2 11.0 - 16.0 % [facility] Platelet Count 197 160 - 400 X10*3/uL [facility] Mean Platelet Volume 10.2 9.4 - 12.3 fL [facility] NRBC Pct Auto 0.0 0.0 - 0.2 /100WBC [facility] NRBC Abs Auto 0.000 0.0 - 0.012 X10*3/uL [facility] 08/25/2024 11:0 0 PM EDT 08/25/2024 11:05 PM EDT Generic External Data Provider LAB BLOOD ORDERAB LES Final Result Performing Organization Address City/[facility]/ZIP Co de Phone Number [facility] [address] [place] [address] [phone] * Culture, Urine, Routine (08/25/2024 11:00 PM EDT) Urine Urine specimen obtained by clean catch procedure / Unknown 08/25/2024 11:00 PM EDT 08/25/2024 11:34 PM EDT Comment:UACC Narrative [facility] - 08/28/2024 7:43 AM EDT Escherichia coli Quant 50,000 to 100,000 cfu/mL Corynebacterium species Quant 50,000 to 100,000 cfu/mL Escherichia coli: Ampicillin >=32(R) Escherichia coli: Cefazolin (Urine) 4(S) Escherichia coli: Cefepime <=0.12(S) Escherichia coli: Ceftriaxone <=0.25(S) Escherichia coli: Ciprofloxacin <=0.06(S) Escherichia coli: Gentamicin >=16(R) Escherichia coli: Nitrofurantoin <=16(S) Escherichia coli: Trimethoprim/Sulfamethoxazole >=320(R) Specimen Source: Urine clean catch us Generic External Data Provider LAB MICROBIOLOGY - GENERAL ORDERABLES Final Result Performing Organization Address [facility]/ZIP Co de Phone Number [facility] [address] [place] [phone] * Referral to Ophthalmology (06/20/2024) Ludwin Sylvester MD OUTPATIENT REFERRAL ORDERABLES F inal Result * Pap Smear (06/22/2023 3:20 PM EDT) 06/22/2023 3:20 PM EDT 06/27/2023 11:15 AM EDT [facility] - 07/11/2023 2:16 PM EDT ----- ------- Name: Jayne Lane Age/Sex: 68/F : 1955 Unit#: [id number] Attend Dr: Opal Carranza CNM Re06/22/23 Status: DEP [facility] Disch: ----- ------- SPEC : [id number] RECD: 06/27/23-1115 STATUS: DERRELL RICCO NUM: [id number] CYRUS: 06/22/23-1520 [facility] DR: Opal Carranza CNM ENTERED: 06/27/23-1232 SP TYPE: Pap Smr [facility] DR: James Trimble MD ORDERED: Pap Smear, PAP path review Interpretation General Category: Negative for intraepithelial lesion/malignancy. Adequacy: Endocervical component present. Interpretation: Inflammation, atrophy and reactive cellular changes. HPV mRNA E6/E7: Not Detected This assay detects E6/E7 viral messenger RNA (mRNA) from 14 high-risk HPV types (16, 18, 31, 33, 35, 39, 45, 51, 52, 56, 58, 59, 66, 68) HPV testing performed by [facility], [place], [place]. See reference laboratory portion of the EMR for entire report. Clinical Information LMP: Menopause Previous PAP test: 02/01, Abnormal Other surgery:03/30 colpo DELPHINE I Other history: 2015 +HPV ACUS, 07/29 +HPV Material Received ThinPrep-Cervical Copies To: James Trimble MD [address] [place] [address] Opal Carranza [address] [place] [address] ----- ------- Signed (signature on file) Ev Dale 07/11/23 1416 ----- ------- END OF REPORT Generic External Data Provider LAB CYTOLOGY RELL SALAZAR Final Result [facility] [address] [place] [phone] * Colonoscopy (07/11/2022 3:53 PM EDT) Pathologist [facility] [place] Colonoscopy Normal Normal Comment:Tubular adenoma Historical Provider HEALTH MAINTENANCE Final Result * HPV E6/E7 RFLX DANIAL 16 18/45 (01/17/2022 4:22 PM EST) Pathologist [facility] [place] HPV 16 RNA TNP [facility] HPV 18/45 RNA TNP [facility] HPV E6 E7 ADD TNP [facility] [employer] HPV mRNA E6/E7 rflx Not Detected Not Detected [facility] Comment: Methodology: [employer]-Mediated Amplification This assay detects E6/E7 viral messenger RNA (mRNA) from 14 high-risk HPV types (16,18,31,33,35,39,45,51,52,56,58,59,66,68). Cervical sources are required for HPV testing. If a vaginal source from a patient who has had a total hysterectomy with removal of cervix was submitted, please contact the testing laboratory for alternative testing options. For additional information, please refer to http://education.Physician Referral Network (PRN)/faq/JRP117y3 (This link if provided for information/ educational purposes only.) THIS TEST WAS PERFORMED AT: [facility] [address] [place] [address],[place] [address] KEVEN CHAND MD 01/17/2022 4:22 PM EST Opal Carranza HISTORICAL/NON ORDERABLE LABS Fi nal Result [facility] from Last 3 Months or Most Recently Relevant to Health Maintenance Insurance [facility] STANDARD [facility] RETIREMENT OPTIONS (HMO D-SNP) [place] [id number] Care Teams Wig Stylist Relationship Specialty Start Date End Date James Flores MD [address] [place] [phone] PCP - General Internal Medicine 02/04/14
--- OUTSIDE RECORDS SUMMARY | 2024-11-13 10:54 | XMS_ITS | Encounter Summary ---
Author Organization [facility] Address [address] [facility] [address] [place] [address] Phone Care Team Providers Care Long Distance Billing Operator Name Role Phone James Trimble MD Primary Care Provide r Encounter Details Date Type Department Care Team (Late st Contact Info) Description 12/21/2020 Procedure Pass Non-Invasive Cardiology [address] [place] [address] Social History Tobacco Use Types Packs/Day Years [...] AM EDT Trey Cardona i, RN * [place] Suicide Severity Rating Scale (Screener/Recent Self-Report) Question Answer Date of Assessment Author 1. Wish to be (Past 1 Month) No 12/21/2020 5:00 AM EDT Trey Alonos RN 2. Non-Specific Active Suicidal Thoughts (Past [...] documented as of this encounter Care Teams Long Distance Billing Operator Relationship Specialty Start Date End Date James Trimble MD [address] [place] [address] [address] [place] [phone] [email or web address] PCP - General 03/16/17 documented as of this encounter Additional Source Comments The information contained in this document represents components of the legal health record. It is not the complete legal health record.[facility]
--- OUTSIDE RECORDS SUMMARY | 2024-11-13 10:54 | XMS_ITS | Encounter Summary ---
Author Organization [employer] Address [address] [facility] 7t [place] [address] Care Team Providers Care Ticket Speculator Name Role Phone James Flores MD Primary Care Provide r Encounter Details Date Type Department Care Team ([facility] st Contact Info) Description 03/14/2023 Telephone [facility] [address] [place] [address] Adriana Odell MA Social History Tobacco Use [...] Description 12/10/2024 9:15 AM EDT Office Visit [facility] MED[facility]INE [address] [place] [address] James Flores MD 230 [place] [address] documented as of this encounter Visit Diagnoses Not on filedocumented in this encounter Care Teams Ticket Speculator Relationship Specialty Start Date End Date James Flores MD 230 [place] [address] PCP - General Internal Medicine 02/04/14 documented as of this encounter
--- OUTSIDE RECORDS SUMMARY | 2024-11-13 10:54 | XMS_ITS | Encounter Summary ---
Author Organization [facility] Address [address] [place] [address] Phone Care Team Providers Care Geographic Analyst Name Role Phone James Grant MD Primary Care Provider Unav ailable Reason for Visit * Reason Comments Med Refill Encounter Details Date Type Department Care Team (Late st Contact Info) Description 12/14/2022 Refill [facility] [address] [place] [address] Osmany Leung MD Social History [...] on filedocumented in this encounter Care Teams Geographic Analyst Relationship Specialty Start Date End Date James Grant MD PCP - General 03/23/20 documented as of this encounter
--- OUTSIDE RECORDS SUMMARY | 2024-11-13 10:54 | XMS_ITS | Encounter Summary ---
Author Organization [facility] [facility] Address [address] [facility] 7t [place] [address] Care Team Providers Care Vending Machine Operator Name Role Phone James Flores MD Primary Care Provide r Encounter Details Date Type Department Care Team (Late st Contact Info) Description 05/11/2022 Telephone [facility] [address] [place] [address] [phone] James Flores MD [address] [place] [address] [phone] Social History Tobacco Use Types Packs/Day Years [...] Description 12/10/2024 9:15 AM EDT Office Visit [facility] [address] [place] [address] [phone] James Flores MD [address] [place] [address] [phone] documented as of this encounter Visit Diagnoses Not on filedocumented in this encounter Care Teams Vending Machine Operator Relationship Specialty Start Date End Date James Flores MD 230 [place] [address] PCP - General Internal Medicine 02/04/14 documented as of this encounter
--- OUTSIDE RECORDS SUMMARY | 2024-11-13 10:54 | XMS_ITS | Encounter Summary ---
Author Organization [employer] Address [address] [facility] 7t [place] [address] Care Team Providers Care Grants Assistant Name Role Phone James Flores MD Primary Care Provide r Encounter Details Date Type Department Care Team ([facility] Contact Info) Description 03/17/[address] [facility]S [address] [place], [place] [phone] Jaja Hammond LPN Social History Tobacco Use [...] Upcoming Encounters Date Type Department Care Team ([facility] Contact Info) Description 12/10/2024 9:15 AM EDT Office Visit [facility]INE 230 [place], [place] [phone] James Flores MD 230 [place], [place] [phone] documented as of this encounter Visit Diagnoses Not on filedocumented in this encounter Care Teams Grants Assistant Relationship Specialty Start Date End Date James Flores MD [address] [place] [address] PCP - General Internal Medicine 02/04/14 documented as of this encounter
--- OUTSIDE RECORDS SUMMARY | 2024-11-13 10:54 | XMS_ITS | Encounter Summary ---
Author Organization [facility] Address [address] [facility] [address] [place] [address] Phone Care Team Providers Care Engine Assembler Name Role Phone James Trimble MD Primary Care Provide r Encounter Details Date Type Department Care Team (Late st Contact Info) Description 12/21/2020 Procedure Pass [facility] [address] [place] [address] Social History Tobacco Use Types Packs/Day Years [...] AM EDT Trey Cardona i, RN * [place] Suicide Severity Rating Scale (Screener/Recent Self-Report) Question [...] documented as of this encounter Care Teams Engine Assembler Relationship Specialty Start Date End Date James Trimble MD [address] [place] [address] [address] [place] [address] [email or web address] PCP - General 03/16/17 documented as of this encounter Additional Source Comments The information contained in this document represents components of the legal health record. It is not the complete legal health record.[facility]
--- OUTSIDE RECORDS SUMMARY | 2024-11-13 10:54 | XMS_ITS | Encounter Summary ---
Author Organization [employer] Address [address] [facility] 7t [place] [address] Care Team Providers Care Social Media Analyst Name Role Phone James Flores MD Primary Care Provide r Reason for Visit * Reason Onset Date Comments Nurse Triage 03/18/2024 Encounter Details Date Type Department Care Team (Late st Contact Info) Description 03/18/2024 Telephone [facility] MEDICINE [address] [place] [address] James Flores MD 230 [place] [address] Nurse Triage Social History Tobacco Use Types [...] EST Triage call with [facility] [place] [id number]. Pt reports continual coughing with cold symptoms. Pt was seen in [facility] 02/29/24 for cough and exacerbation of asthma. [...] Description 12/10/2024 9:15 AM EDT Office Visit [facility] MEDICINE [address] [place] [address] James Flores MD [address] [place] [phone] documented as of this encounter Visit Diagnoses Not on filedocumented in this encounter Additional Health Concerns Assessment Noted Time PHQ-9 Depression Total Score: 0 01/30/20 24 10:37 AM EST documented as of this encounter Care Teams Social Media Analyst Relationship Specialty Start Date End Date James Flores MD [address] [place] [address] PCP - General Internal Medicine 02/04/14 documented as of this encounter
--- OUTSIDE RECORDS SUMMARY | 2024-11-13 10:54 | XMS_ITS | Encounter Summary ---
Author Organization [employer] Address [address] [facility] 7t [place] [address] Care Team Providers Care Retirement Plan Counselor Name Role Phone Jmaes Flores MD Primary Care Provide r Reason for Visit * Reason Onset Date Comments Call Back Request 08/07/2024 Appointment Request 08/07/2024 Encounter Details Date Type Department Care Team ([facility] st Contact Info) Description 08/07/2024 Telephone [facility] 230 [place] [address] James Flores MD 230 [place] [address] Call Back Request; Appointment Request Social History Tobacco Use Types [...] encounter Miscellaneous Notes * Telephone Encounter - Yolie Bo - 08/07/2024 1:24 PM EDT Tc from [place] requesting a callback in regards mom DME request for telehealth visit Please return call [phone] documented in this encounter Plan of Treatment Upcoming Encounters Date Type Department Care Team (Late st Contact Info) Description 12/10/2024 9:15 AM EDT Office Visit [facility] [address] [place] [address] James Flores MD 230 [place] [address] documented as of this encounter Visit Diagnoses Not on filedocumented in this encounter Additional Health Concerns Assessment Noted Time PHQ-9 Depression Total Score: 0 01/30/20 10:37 AM EST documented as of this encounter Care Teams Retirement Plan Counselor Relationship Specialty Start Date End Date James Flores MD 230 [place] [address] PCP - General Internal Medicine 02/04/14 documented as of this encounter
--- OUTSIDE RECORDS SUMMARY | 2024-11-13 10:54 | XMS_ITS | Encounter Summary ---
Author Organization [employer] Address [address] [facility] 7t [place] [address] Care Team Providers Care Textile Broker Name Role Phone James Flores MD Primary Care Provide r Reason for Visit * Reason Comments Med Refill Encounter Details Date Type Department Care Team ([facility] st Contact Info) Description 03/12/2023 Refill [facility]INE 230 [place] [address] James Flores MD 230 [place] [address] Chronic anemia Social History Tobacco Use Types [...] t he electric, gas, oil or water [employer] threatened to shut off services in your [...] Description 12/10/2024 9:15 AM EDT Office Visit [facility] [address] [place] [address] James Flores MD [address] [place] [address] documented as of this encounter Visit Diagnoses Diagnosis Chronic anemia Unspecified anemia documented in this encounter Care Teams Textile Broker Relationship Specialty Start Date End Date James Flores MD [address] [place] [address] PCP - General Internal Medicine 02/04/14 documented as of this encounter
--- OUTSIDE RECORDS SUMMARY | 2024-11-13 10:54 | XMS_ITS | Encounter Summary ---
Author Organization [employer] Address [address] [facility] 7t [place] [address] Care Team Providers Care Nursing Project Coordinator Name Role Phone James Flores MD Primary Care Provide r Encounter Details Date Type Department Care Team ([facility] st Contact Info) Description 02/21/2022 Abstract [facility] MEDICINE [address] [place] [address] James Flores MD [address] [place] [address] Social History Tobacco Use Types Packs/Day Years [...] Description 12/10/2024 9:15 AM EDT Office Visit [facility]INE [address] [place] [address] James Flores MD [address] [place] [address] documented as of this encounter Procedures Procedure [...] on filedocumented in this encounter Care Teams Nursing Project Coordinator Relationship Specialty Start Date End Date James Flores MD [address] [place] [address] PCP - General Internal Medicine 02/04/14 documented as of this encounter
--- OUTSIDE RECORDS SUMMARY | 2024-11-13 10:54 | XMS_ITS | Encounter Summary ---
Author Organization [employer] Address [address] [facility] 7t [place] [address] Care Team Providers Care Director Telecommunications Name Role Phone James Flores MD Primary Care Provide r Encounter Details Date Type Department Care Team (Late st Contact Info) Description 11/13/2024 Orders Only GENERIC EXTERNAL DATA [...] Description 12/10/2024 9:15 AM EDT Office Visit [facility] MEDICINE [address] [place] [address] James Flores MD 230 [place] [address] documented as of this encounter Procedures Procedure Name Priority Date/Time Associated Diagnosis Comments GLUCOSE, WHOLE BLOOD Routine 11/13/2024 9:56 AM EDT documented in this encounter Results * Glucose, Whole Blood (11/13/2024 9:56 AM EDT) Glucose, Whole Blood 102 60 - 115 mg/dL [facility] Comment:METER #: [id number] 0Testing performed in the Endocrinology Department [address] , [address], [facility]. 11/13/2024 9:56 AM EDT 11/13/2024 10:00 AM EDT us Generic External Data Provider LAB BLOOD ORDERAB LES Final Result [facility] [address] [place] [address] [phone] documented in this encounter Visit Diagnoses Not on filedocumented in this encounter Additional Health Concerns Assessment Noted Time PHQ-9 Depression Total Score: 0 01/30/20 24 10:37 AM EST documented as of this encounter Care Teams Director Telecommunications Relationship Specialty Start Date End Date James Flores MD [address] [place] [address] PCP - General Internal Medicine 02/04/14 documented as of this encounter
--- OUTSIDE RECORDS SUMMARY | 2024-11-13 10:54 | XMS_ITS | Encounter Summary ---
Author Organization [facility] Address [address] [facility] [address] [place] [address] Phone Care Team Providers Care Internet Ecommerce Specialist Name Role Phone James Trimble MD Primary Care Provide r Encounter Details Date Type Department Care Team (Late st Contact Info) Description 12/20/2020 Procedure Pass , [address] [address] Social History Tobacco Use Types Packs/Day Years [...] AM EDT Trey Cardona i, RN * [place] Suicide Severity Rating Scale (Screener/Recent Self-Report) Question [...] documented as of this encounter Care Teams Internet Ecommerce Specialist Relationship Specialty Start Date End Date James Trimble MD [address] [place] [address] [address] [place] [address] [email or web address] PCP - General 03/16/17 documented as of this encounter Additional Source Comments The information contained in this document represents components of the legal health record. It is not the complete legal health record.[facility]
--- OUTSIDE RECORDS SUMMARY | 2024-11-13 10:54 | XMS_ITS | Encounter Summary ---
Author Organization [employer] Address [address] [facility] 7t [place] [address] Care Team Providers Care Office Technician Name Role Phone James Flores MD Primary Care Provide r Encounter Details Date Type Department Care Team ([facility] st Contact Info) Description 01/11/2024 Telephone [facility] 230 [place], [place] [phone] James Flores MD [address] [place], [place] [phone] Social History Tobacco Use Types Packs/Day Years [...] Description 12/10/2024 9:15 AM EDT Office Visit [facility] [address] [place] [address] James Flores MD 230 [place] [address] documented as of this encounter Visit Diagnoses Not on filedocumented in this encounter Care Teams Office Technician Relationship Specialty Start Date End Date James Flores MD [address] [place] [address] PCP - General Internal Medicine 02/04/14 documented as of this encounter
--- OUTSIDE RECORDS SUMMARY | 2024-11-13 10:54 | XMS_ITS | Clinical Summary ---
Author Organization [facility] Address [address] [place] [address] Phone Care Team Providers Care Hard Tile Setter Name Role Phone Ruchi Ayala MD Primary Care Provide r Allergies Active Allergy Reactions Criticality Noted Date Comments Acetaminophen 04/12/2013 Amoxicillin 05/10/2012 Chlorothiazide 05/10/2012 Ciprofloxacin 05/10/2012 Codeine 05/10/2012 Diphenhydramine 05/10/2012 Morphine Other,Palpitations Low 04/12/2013 Nitrofurantoin 05/10/2012 Other 11/08/2024 Oxycodone Palpitations Low 04/12/2013 Listed previously as Percocet allergy but takes Tylenol regularly Oxycodone-Acetaminophen Other 07/09/2017 Sulfa (Sulfonamide Antibiotics) 05/10/2012 Vancomycin 05/10/2012 Encounters Date Type Department Care Team Description 11/08/2024 9:45 AM EDT Consult [facility] [address] [phone] Nii Frias DPM Nondisplaced fracture of proximal phalanx of left lesser toe(s), initial encounter for closed fracture from Last 3 Months Social History Tobacco Use Types Packs/Day Years Used Date Smoking Tobacco: Never Assessed Comments Unknown Sex and Gender Information Value Date Recorded Sex Assigned at Not on file Legal Sex Female 12:51 PM EST Gender Identity Not on file Sexual Orientation Not on file Plan of Treatment Upcoming Encounters Date Type Department Care Team ([facility] Contact Info) Description 12/24/2024 9:30 AM EDT Office Visit [facility] [address] [phone] Nii Frias DPM [address] [address] Health Maintenance Due Date Last Done Comments Breast Cancer Screening 1955 Diabetes: Annual Foot Exam 05/18/1965 Diabetes: Annual Retina Eye Exam 05/18/1965 Pneumococcal Vaccine: 50+ Years (1 of 2 - PCV) 05/18/1974 RSV Immunization Adult Patients (1 - Risk 60-74 years 1-dose series) 2015 Zoster Vaccines (3 of 3) 09/14/2021 07/20/2021, 0811/2015 COVID-19 Vaccine ( - season) 2023 08/31/2020, 08/01/2020 Depression Screening 03/13/2024 Colorectal Cancer Screening: Colonoscopy 11/05/2024 Falls Risk Assessment 11/05/2024 Hepatitis C Screening 11/05/2024 Medicare Annual Wellness Visit 11/05/2024 Osteoporosis Screening (Bone Density Screening) 11/05/2024 Social Influencers of Health Screening 11/05/2024 Diabetes: Annual Urine Albumin-Creatinine Ratio (uACR) 11/08/2024 Influenza Vaccine (#1) 2024 , 11/23/2022, 12/09/2021, Additional history exists Diabetes: Blood Sugar Control Test (HGBA1C) 05/03/2025 10/31/2024, 09/03/2024 Diabetes: Annual GFR (Glomerular Filtration Rate) 10/31/2025 10/31/2024, 08/25/2024 Hypertension/CHF/CAD Annual BMP Blood Test 10/31/2025 10/31/2024, 08/25/2024 Cholesterol Screening (Lipid Panel) 10/31/2029 10/31/2024, 12/21/2020 DTaP,Tdap,and Td Vaccines (4 - Td or Tdap) 05/30/2034 05/30/2024, 05/31/2013, 11/27/2002 HIB Vaccines Aged Out No longer eligi [...] on patient's age to complete this topic MMR Vaccines Aged Out No longer eligi ble based on patient's age to complete this topic Meningococcal ACWY Vaccine Aged Out N o longer eligible based on patient's age to complete this topic Meningococcal B Vaccine Aged Out No l onger eligible based on patient's age to complete this topic RSV Immunization Patients Under 20 months Aged Out No longer eligible based on patient's age to complete this topic Varicella Vaccines Aged Out No longer eligible based on patient's age to complete this topic Procedures Procedure Name Priority Date/Time Associated Diagnosis Comments XR FOOT 3+ VIEWS LEFT Routine 11/08/2024 9:55 AM EDT Pain from Last 3 Months Results * XR Foot 3+ Views Left (11/08/2024 9:55 AM EDT) Anatomical Region Laterality Modality Lower Extremities, Foot Left Computed Radiography Narrative 11/08/2024 11:45 AM EDT Left foot 3 views weightbearing:Notable fracture with slight displacement of the proximal phalanx of the left fifth toe. Notable osteoporosis throughout the foot. Rectus alignment of the digit within normal limits Nii Frias DPTwan IMG XR PROCEDURES Edited Re sult - Final from Last 3 Months Insurance [facility] MEDICARE Member Subscriber Plan / Payer (Ef fective 2022-Present) Name:Jayne Lane Relation to Subscriber:Self Name:Jayne Lane Payer ID:[id number] Group ID:[id number] Type:Not on file Address: [place] [address] [address] [address] Care Teams Hard Tile Setter Relationship Specialty Start Date End Date Ruchi Ayala MD [address] [phone] PCP - General Internal Medicine 11/05/24
--- OUTSIDE RECORDS SUMMARY | 2024-11-13 10:54 | XMS_ITS | Clinical Summary ---
Author Organization [facility] Address [address] [facility] [address] [place] [address] Phone Care Team Providers Care Service Desk Manager Name Role Phone James Trimble MD [...] Active ferrous sulfate 325 mg (65 mg [place] iron) tablet Take 325 mg by mouth [...] nebulizer at home does not see a motor vehicle emissions inspector. Considering home neb. ? Having difficulty using [...] INITIAL (ONE-TIME) 05/18/2020 MAMMOGRAM 01/09/2021 01/09/2019, 12/27/2017 INFLUENZA VACCINE (#1) 2024 , 12/04/2019, 12/19/2017, Additional history exists COVID-19 VACCINE (3 - season) 2024 08/31/2020, 08/01/2020 LIPID PANEL 02/04/2025 02/05/2024, 12/21/2020 [...] (12/21/2020 6:13 AM EDT) HDL 49 mg/dL [facility] Comment: Interpretation <40 mg/dL: Low HDL cholesterol (major risk factor for CHD) Greater than or equal to 60 mg/dL: High HDL cholesterol ( negative risk factor for CHD) HDL - cholesterol is affected by a number of factors, e.g. smoking, excerise, hormones, sex and age. CHOLESTEROL 160 0 - 240 mg/dL [facility] TRIGLYCERIDES 109 30 - 160 mg/dL [facility] LDL 89 50 - 129 mg/dL [facility] Comment: LDL levels in terms of risk for coronary heart disease: <100 mg/dL: Optimal 100-129 mg/dL: Near or above optimal 130-159 mg/dL: Borderline high 160-189 mg/dL: High >190 mg/dL: Very High CARDIAC RISK RATIO 3.3 3.3 - 4.4 [facility] Blood 12/21/2020 6:13 AM EDT 12/21/2020 6:36 AM EDT us Avni Bernard MD LAB BLOOD ORDERABLES Fin al Result [facility] [address] [place] [address] from Last 3 Months or Most Recently Relevant to Health Maintenance Insurance MEDICARE REPLACEMENT [place] [id number] MEDICARE REPLACEMENT MEDICARE REPLACEMENT MEDICARE REPLACEMENT MEDICARE REPLACEMENT MEDICARE REPLACEMENT Advance Directives For more information, please contact: [phone] (9AM - 5PM [facility], Monday-Monday) * Full Code (Latest Code Status on File) Date Activated Date Inactivated Comments 06/26/2021 2:17 PM Question Answer Comments Code Status Confirmed With: Patient * Full Code Date Activated Date Inactivated Comments 12/20/2020 7:48 PM 06/26/2021 2:17 PM Question Answer Comments Code Status Confirmed With: Patient Care Teams Service Desk Manager Relationship Specialty Start Date End Date James Trimble MD [address] [place] [address] [address] [place] [address] [email or web address] PCP - General 03/16/17 Additional Source Comments The information contained in this document represents components of the legal health record. It is not the complete legal health record.[facility]
--- OUTSIDE RECORDS SUMMARY | 2024-11-13 10:54 | XMS_ITS | Encounter Summary ---
Author Organization [facility] Address [address] [facility] [address] [place] [address] Phone Care Team Providers Care High School Academic Coach Name Role Phone James Trimble MD Primary Care Provide r Encounter Details Date Type Department Care Team (Late st Contact Info) Description 12/20/2020 Procedure Pass [facility], Ct Scan - [address] [address] Social History Tobacco Use Types Packs/Day Years [...] AM EDT Trey Cardona i, RN * [place] Suicide Severity Rating Scale (Screener/Recent Self-Report) Question [...] documented as of this encounter Care Teams High School Academic Coach Relationship Specialty Start Date End Date James Trimble MD [address] [place] [address] [address] [place] [address] [email or web address] PCP - General 03/16/17 documented as of this encounter Additional Source Comments The information contained in this document represents components of the legal health record. It is not the complete legal health record.[facility]
--- OUTSIDE RECORDS SUMMARY | 2024-11-13 10:54 | XMS_ITS | Encounter Summary ---
Author Organization [employer] Address [address] [facility] [address] 7t [place] [address] Care Team Providers Care Last Model Department Supervisor Name Role Phone James Flores MD Primary Care Provide r Encounter Details Date Type Department Care Team (Late st Contact Info) Description 01/09/2023 Orders Only [facility] MED [facility] PEDS [address] [place] [address] Jaja Hammond LPN Social History Tobacco Use [...] Description 12/10/2024 9:15 AM EDT Office Visit [facility] MEDICINE [address] [place] [address] James Flores MD 230 [place] [address] documented as of this encounter Visit Diagnoses Not on filedocumented in this encounter Care Teams Last Model Department Supervisor Relationship Specialty Start Date End Date James Flores MD 230 [place], [place] [phone] PCP - General Internal Medicine 02/04/14 documented as of this encounter
--- OUTSIDE RECORDS SUMMARY | 2024-11-13 10:54 | XMS_ITS | Encounter Summary ---
Author Organization [employer] Address [address] [facility] 7t [place] [address] Care Team Providers Care Twitchell Operator Name Role Phone James Flores MD Primary Care Provide r Reason for Visit * Reason Comments Med Refill Encounter Details Date Type Department Care Team (Late st Contact Info) Description 08/27/2023 Refill [facility] MEDICINE [address] [place] [address] Name, MD Loki [address] [place] [address] Gastroesophageal reflux disease without esophagitis Social History [...] t he electric, gas, oil or water [employer] threatened to shut off services in your [...] 9:15 AM EDT Office Visit [facility] MED[facility]INE [address] [place] [address] James Flores MD 230 [place] [address] documented as of this encounter Visit Diagnoses Diagnosis Gastroesophageal reflux disease without esophagitis Esophageal reflux documented in this encounter Care Teams Twitchell Operator Relationship Specialty Start Date End Date James Flores MD [address] [place] [address] PCP - General Internal Medicine 02/04/14 documented as of this encounter
--- OUTSIDE RECORDS SUMMARY | 2024-11-13 10:54 | XMS_ITS | Encounter Summary ---
Author Organization [employer] Address [address] [facility] 7t [place] [address] Care Team Providers Care Second Baller Name Role Phone James Flores MD Primary Care Provide r Reason for Visit * Reason Onset Date Comments Durable Medical Equipment 07/30/2024 Encounter Details Date Type Department Care Team (Late st Contact Info) Description 07/30/2024 Telephone [facility] MED[facility]INE [address] [place] [address] James Flores MD 230 [place] [address] Durable Medical Equipment Social History Tobacco Use [...] 9:15 AM EDT Office Visit [facility] [address] [place] [address] James Flores MD [address] [place] [address] documented as of this encounter Visit Diagnoses Not on filedocumented in this encounter Additional Health Concerns Assessment Noted Time PHQ-9 Depression Total Score: 0 01/30/20 24 10:37 AM EST documented as of this encounter Care Teams Second Baller Relationship Specialty Start Date End Date James Flores MD [address] [place] [id number] PCP - General Internal Medicine 02/04/14 documented as of this encounter
--- OUTSIDE RECORDS SUMMARY | 2024-11-13 10:54 | XMS_ITS | Encounter Summary ---
Author Organization [employer] Address [address] [facility] 7t [place] [address] Care Team Providers Care Color Straining Bag Washer Name Role Phone James Flores MD Primary Care Provide r Reason for Visit * Reason Onset Date Comments Durable Medical Equipment 09/27/2023 Encounter Details Date Type Department Care Team (Late st Contact Info) Description 09/27/2023 Telephone [facility] MEDICINE [address] [place] [address] James Flores MD [address] [place], [place] [phone] Durable Medical Equipment Social History Tobacco Use [...] 1 flip pillow DME Please contact at [phone] * Telephone Encounter - Fernando Christie - 09/27/2023 2:40 PM EDT Tc from pt 10 in 1 flip pillow due to issues sleeping. Pt would like script to be faxed to [facility]. If any questions you can contact pt at [phone]. documented in this encounter Plan of Treatment Upcoming Encounters Date Type Department Care Team (Late st Contact Info) Description 12/10/2024 9:15 AM EDT Office Visit [facility] MEDICINE [address] [place] [address] James Flores MD [address] [place] [address] documented as of this encounter Visit Diagnoses Not on filedocumented in this encounter Care Teams Color Straining Bag Washer Relationship Specialty Start Date End Date James Flores MD [address] [place] [id number] PCP - General Internal Medicine 02/04/14 documented as of this encounter
--- OUTSIDE RECORDS SUMMARY | 2024-11-13 10:54 | XMS_ITS | Clinical Summary ---
Author Organization [facility] Address [address] [place] [address] Phone Care Team Providers Care Splunk Consultant Name Role Phone James Grant MD Primary [...] patient's age to complete this topic Insurance [employer] Care Teams Splunk Consultant Relationship Specialty Start Date End Date James Grant MD PCP - General 03/23/20
--- OUTSIDE RECORDS SUMMARY | 2024-11-13 10:54 | XMS_ITS ---
Author Name Mr. Arlen Márquez Address [address] [place] [address] Phone [phone] [facility] Care Team Providers Care Orderly Name Role Phone Micah Judge Unavailable [phone] Reason for Referral Not Available Allergies, adverse [...] 2021-11-04 No Data Available OneTouch Delica Plus [id number] Miscellaneous TEST BLOOD SUGAR THREE OR FOUR [...] of Service Diagnosis/Co mplaint No Data Available [facility] [place] 07/12/2022 Type 2 diabetes mellitus wit h diabetic chronic kidney diseaseChronic kidney disease, stage 3bLong term (current) use of insulinMorbid (severe) obesity due to excess caloriesBody mass index (BMI) 40.0-44.9, adultOther specified health statusConstipation, unspecifiedProblems related to health literacyPrsnl hx of TIA (TIA), and cereb infrc w/o resid deficits No Data Available [facility] 07/12/2022 No Data Available [facility] 07/[place]2022 No Data Available [facility]2022 No Data Available [facility] 07/[place]2022 No Data Available [facility] 07/[place]2022 No Data Available [facility] 07/22/2022 Morbid (severe) obesity due to excess caloriesBody mass index (BMI) 40.0-44.9, adultType 2 diabetes mellitus with diabetic chronic kidney diseaseChronic kidney disease, stage 3bPrsnl hx of TIA (TIA), and cereb infrc w/o resid deficitsOther specified health status No Data Available [facility] 07/22/2022 Vital Signs Date of Collection Vitals 2022-07-12 11:38:39 Height - 147.32 cmWe ight - 87.09 kgBody Mass Index (BMI) - 40.13 kg/m2 Social History Sex Female History of Procedures Procedures Service Procedure code Service date Servicing provider Phone# No Data Available [id number] 2022-07-12 No Data Available No Data Available [...] le No Data Available No Data Available [id number] 2022-07-22 No Data Available No Data Available [...]
--- OUTSIDE RECORDS SUMMARY | 2024-11-13 10:54 | XMS_ITS | Encounter Summary ---
Author Organization [employer] Address [address] [facility] 7t [place] [address] Care Team Providers Care Oracle Reports Developer Name Role Phone James Flores MD Primary Care Provide r Reason for Visit * Reason Comments Med Refill Encounter Details Date Type Department Care Team (Late st Contact Info) Description 09/04/2023 Refill [facility] MEDICINE [address] [place] [address] Name, MD Loki [address] [place] [address] Gastroesophageal reflux disease without esophagitis Social History [...] t he electric, gas, oil or water [employer] threatened to shut off services in your [...] Description 12/10/2024 9:15 AM EDT Office Visit [facility] [address] [place] [address] James Flores MD [address] [place] [address] documented as of this encounter Visit Diagnoses Diagnosis Gastroesophageal reflux disease without esophagitis Esophageal reflux documented in this encounter Care Teams Oracle Reports Developer Relationship Specialty Start Date End Date James Flores MD [address] [place] [address] PCP - General Internal Medicine 02/04/14 documented as of this encounter
--- OUTSIDE RECORDS SUMMARY | 2024-11-13 10:54 | XMS_ITS | Encounter Summary ---
Author Organization [employer] Address [address] [facility] 7t [place] [address] Care Team Providers Care Beach Expert Name Role Phone James Flores MD Primary Care Provide r Encounter Details Date Type Department Care Team (Late Contact Info) Description 04/13/2022 Orders Only [facility] MEDICINE [address] [place] [phone] April Olsen LPN Social History Tobacco Use [...] 12/10/2024 9:15 AM EDT Office Visit [facility] MEDICINE 230 [place], [place] [phone] James Flores MD 230 [place], [place] [phone] documented as of this encounter Visit Diagnoses Not on filedocumented in this encounter Care Teams Beach Expert Relationship Specialty Start Date End Date James Flores MD [address] [place] [address] PCP - General Internal Medicine 02/04/14 documented as of this encounter
== END 2024-11-13 10:26 | disposition home or self-care (01) ==
LOC: HO.ENCR 09:48
PROVIDERS: PCP Internal Medicine; Visit Provider Internal Medicine
DX: E11.65 Type 2 diabetes mellitus with hyperglycemia (principal); Z79.4 Long term (current) use of insulin

== ENCOUNTER → 2024-11-13 09:47 | Outpatient (BNVA) | payer OTHER, SELFPAY | PROVIDERS: PCP Internal Medicine; Visit Provider Internal Medicine | DX: E11.65 Type 2 diabetes mellitus with hyperglycemia (principal); Z79.4 Long term (current) use of insulin | CPT/HCPCS: 82947; 99212 ==

== ENCOUNTER 2024-11-20 10:06 | Outpatient (AMB) | payer MEDICARE, SELFPAY ==
--- NOTE | 2024-11-20 10:10 | MHC.OFFVIS ---
Vital Signs 11/20/24 10:11 Height 5 ft 1 in Weight 167 lb 8.821 oz BMI 31.7 BP 138/78 Blood Pressure Location Lt brachial Position Sitting Pulse 74 Pulse Source Pulse Oximeter Intake Visit Reasons: 6 mth f/up Heat And Frost Insulator Required: Yes Heat And Frost Insulator Services: Heat And Frost Insulator Offered & Declined Accompanied by: Daughter Allergies morphine (Morphine) Allergy (Intermediate, Verified 11/13/24 09:55) TACHYCARDIA, ANXIETY oxycodone (Percocet) Allergy (Intermediate, Verified 11/13/24 09:55) Palpitations acetaminophen (From Percocet) Allergy (Verified 11/13/24 09:55) Palpitations prednisone (PREDNISONE) Adverse Reaction (Intermediate, Verified 11/13/24 09:55) ANXIETY Medication List - Last Reconciled 11/20/24 by Rohan Singh MD acetaminophen ER (Tylenol Arthritis Pain) 650 mg PO Q12H PRN albuterol sulfate 90 mcg/actuation (Ventolin HFA) 2 puffs inhalation Q4-6H PRN amlodipine 5 mg PO DAILY blood-glucose,server cashier,cont (FreeStyle Collin 3 [place]) As directed calcium citrate-vitamin D3 200 mg-6.25 mcg (250 unit) 2 tabs PO DAILY calcium polycarbophil (Fiber-Lax) 1,250 mg (2 x 625 mg) PO QAM celecoxib (Celebrex) 200 mg PO BID 30 days cholecalciferol (vitamin D3) (Vitamin D3) 25 mcg PO QAM clopidogrel 75 mg PO DAILY docusate sodium (Stool Softener) 200 mg (2 x 100 mg) PO BEDTIME ezetimibe 10 mg PO QAM ferrous sulfate 325 mg PO TID FreeStyle Collin 3 Plus Sensor (blood-glucose sensor) every 15 days NS FreeStyle Collin 3 Plus Sensor (blood-glucose sensor) every 15 days NS insulin glargine (Lantus Solostar U-100 Insulin) 38 units subcut BEDTIME insulin lispro (Humalog KwikPen (U-100) Insulin) Sliding Scale 6-16 subcutaneously with breakfast and lunch 150-200 take 6 units 201-250 take 10 units 251-300 take 12 units 301-350 take 14 units >350 take 16 units Take 2-10 units subcutaneous sliding scale with dinner 150-200 take 2 units 201-250 take 4 units 251-300 take 6 units 301-350 take 8 units >350 take 10 units lancets As directed lancets (TRUEplus Lancets) As directed to test blood sugar 3-4 times a day loratadine 10 mg PO QAM metoprolol tartrate 50 mg PO BID OneTouch Verio Flex meter (blood-glucose meter) As directed NS OneTouch Verio test strips (blood sugar diagnostic) TEST BLOOD SUGAR FOUR TIMES DAILY NS Ozempic (semaglutide) 1 mg (0.75 mL) subcut QWEEK NS pen needle, diabetic As directed pioglitazone 30 mg PO QAM HPI Comments Details: Jayne returns for follow up regarding coronary artery disease. Previously going to [place]. She had PTCA/stenting of the mid LAD in 2005. At that time, she had 90% stenosis of small OM and otherwise noncritical diffuse disease of large OM; 60-70% stenosis in the mid right coronary artery. Subsequently, had a nuclear stress test in 2010 which was apparently unremarkable. Multiple cardiovascular risk factors including diabetes, hypertension, dyslipidemia, among others. If said she is doing well. No new concerns. No cardiac symptoms. [facility] Medical History Primary osteoarthritis of left knee Acute pain of both knees Tinea corporis Tubular adenoma Non-rheumatic aortic stenosis Hemorrhoids Diverticulosis of colon History of CVA (cerebrovascular accident) Hyperkalemia Cobalamin deficiency CKD (chronic kidney disease) Iron deficiency anemia Temporal arteritis Idiopathic peripheral neuropathy Arthritis ELLIE (obstructive sleep apnea) Obesity Abnormal Pap smear of cervix Osteoporosis Goiter Hyperparathyroidism Hypercalcemia Vitamin D deficiency HLD (hyperlipidemia) HTN (hypertension) T2DM (type 2 diabetes mellitus) On beta anurag at home Chronic constipation Diabetes Anemia GERD (gastroesophageal reflux disease) Sleep apnea Asthma CAD (coronary artery disease) Angina pectoris HTN (hypertension) Surgical History Hx of heart artery stent Hx of cholecystectomy History of esophagogastroduodenoscopy (EGD) H/O colonoscopy Family History Father Liver problem Mother Diabetes Obesity Social History Household Members Other:: With Housing: House Alcohol intake: never Patient Tobacco Use Status: Never used Tobacco Current occupational status: disabled Sexual orientation: Straight/Heterosexual Gender identity: Female Review of Systems Const Denies weakness ENT Denies dizziness Card Denies chest pain, Denies chest pain with activity, Denies syncope, Denies rapid heart rate, Denies pedal edema, Denies edema, Denies leg edema, Denies lightheadedness, Denies palpitations, Denies dyspnea, Denies dyspnea on exertion and Denies orthopnea Resp Denies cough, Denies dyspnea and Denies dyspnea on exertion GI Denies hematochezia and Denies change in stool character Musc Denies abnormal gait, Denies muscle cramps, Denies muscle weakness, Denies numbness, Denies radiating pain into limb and Denies tingling Neuro Denies abnormal gait, Denies dizziness, Denies syncope, Denies numbness, Denies tingling and Denies weakness Endo Denies palpitations Physical Exam Vital Signs: Last Vital Signs Pulse 74 11/20/24 10:11 BP 138/78 11/20/24 10:11 BMI result Body Mass Index 31.7 Const General: comfortable and no acute distress Orientation/consciousness: patient oriented x3 HEENT Other: Unremarkable Head: Yes normal to inspection Neck Neck: Yes normal visual inspection Chest Chest palpation & inspection: normal inspection of the chest Resp Auscultation: clear to auscultation bilaterally Cardio Palpation: normal PMI Heart sounds: S1 normal heart sound present, S2 normal heart sound present, no gallops, no murmurs and no rubs GI Palpation (GI): Soft to palpation Back/Spine/Pelvis Other: unremarkable Skin General skin exam: no rashes or lesions noted Neuro General: patient oriented x3 Extrem General: Yes normal to inspection Psych Mental Status: mental status grossly normal Assessment & Plan Assessment & Plan (1) Atherosclerotic cardiovascular disease: Code(s): I25.10 - Atherosclerotic heart disease of [place] coronary artery without angina pectoris Category: Medical Plan: Based on review of prior records, PTCA/stenting mid LAD 2005; other findings at that time include 90% stenosis of small OM branch and noncritical diffuse disease in the large OM; intermediate grade disease in mid RCA. Nuclear stress from 2011 unremarkable. Due to the extensive risk factor profile, we will plan on a repeat perfusion imaging study. Clinically however, he has got no symptoms and continue optimal medical therapy. (2) Non-rheumatic aortic stenosis: Code(s): I35.0 - Nonrheumatic aortic (valve) stenosis Category: Medical Plan: Echocardiogram with moderate aortic valve calcification and mild stenosis. Can be followed periodically. (3) HTN (hypertension): Code(s): I10 - Essential (primary) hypertension Category: Medical Qualifiers: Hypertension type: unspecified Qualified Code(s): I10 - Essential (primary) hypertension Plan: Stable. (4) T2DM (type 2 diabetes mellitus): Code(s): E11.9 - Type 2 diabetes mellitus without complications Category: Medical Qualifiers: Diabetes mellitus complication status: with hyperglycemia Diabetes mellitus local company intermodal truck driver insulin use: with fdc use Qualified Code(s): E11.65 - Type 2 diabetes mellitus with hyperglycemia; Z79.4 - FDC (current) use of insulin Plan: Last hemoglobin A1c is 7.7 %. On insulin, pioglitazone, Ozempic. Plan Discussed with daughter who came for appointment. Orders: Orders [place] lexiscan stress w mata Today I25.10 - Atherosclerotic heart disease of [place] coronary artery without angina pectoris NM cardiolite stress test Today I25.10 - Atherosclerotic heart disease of [place] coronary artery without angina pectoris, R07.2 - Precordial pain Coding Level of Care Code Est Pt Level 4 (49462) Complex EM visit Add On G2211 Diagnoses Atherosclerotic cardiovascular disease I25.10 Non-rheumatic aortic stenosis I35.0 Hypertension, unspecified type I10 Hypertension type: unspecified Type 2 diabetes mellitus with hyperglycemia, with long-term current use of insulin E11.65; Z79.4 Diabetes mellitus complication status: with hyperglycemia Diabetes mellitus local company intermodal truck driver insulin use: with local company intermodal truck driver use
[2024-11-20 10:11] VITALS: BP 138/78; PULSE 74; BMI 31.7
--- OUTSIDE RECORDS SUMMARY | 2024-11-20 12:17 | XMS_ITS | Encounter Summary ---
Author Organization [facility] Address [address] [facility] [address] [place] [address] Phone Care Team Providers Care Hydraulic Blocker Name Role Phone James Trimble MD Primary Care Provide r Encounter Details Date Type Department Care Team (Late st Contact Info) Description 12/21/2020 Procedure Pass [facility] [address] [place] [address] Social History Tobacco Use Types Packs/Day Years [...] AM EDT Trey Cardona i, RN * [place] Suicide Severity Rating Scale (Screener/Recent Self-Report) Question [...] documented as of this encounter Care Teams Hydraulic Blocker Relationship Specialty Start Date End Date James Trimble MD [address] [place] [address] [address] [place] [address] [email or web address] PCP - General 03/16/17 documented as of this encounter Additional Source Comments The information contained in this document represents components of the legal health record. It is not the complete legal health record.[facility]
--- OUTSIDE RECORDS SUMMARY | 2024-11-20 12:17 | XMS_ITS | Encounter Summary ---
Author Organization [employer] Address [address] [facility] 7t [place] [address] Care Team Providers Care Netting Weaver Name Role Phone James Flores MD Primary Care Provide r Reason for Visit * Reason Comments Med Refill Encounter Details Date Type Department Care Team (Late st Contact Info) Description 11/20/2024 Refill [facility] MEDICINE [address] [place] [address] James Flores MD [address] [place] [address] Type 2 diabetes mellitus without complication, with long-term current use of insulin ([facility]) Social History Tobacco Use Types [...] Description 12/10/2024 9:15 AM EDT Office Visit [facility] MEDICINE [address] [place] [address] James Flores MD [address] [place] [address] documented as of this encounter Visit Diagnoses Diagnosis Type 2 diabetes mellitus without complication, with long-term current use of insulin ([facility]) documented in this encounter Additional Health Concerns Assessment Noted Time PHQ-9 Depression Total Score: 0 01/30/20 24 10:37 AM EST documented as of this encounter Care Teams Netting Weaver Relationship Specialty Start Date End Date James Flores MD [address] [place] [address] PCP - General Internal Medicine 02/04/14 documented as of this encounter
--- OUTSIDE RECORDS SUMMARY | 2024-11-20 12:17 | XMS_ITS ---
Author Name Mr. Arlen Márquez Address [address] [place] [address] Phone [phone] [facility] Care Team Providers Care Advanced Registered Nurse Name Role Phone Micah Judge Unavailable [phone] Reason for Referral Not Available Allergies, adverse [...] 2021-11-04 No Data Available OneTouch Delica Plus [id number] Miscellaneous TEST BLOOD SUGAR THREE OR FOUR [...] No Data Available [facility] 07/12/2022 Type 2 diabetes mellitus wit h diabetic chronic kidney diseaseChronic kidney disease, stage 3bLong term (current) use of insulinMorbid (severe) obesity due to excess caloriesBody mass index (BMI) 40.0-44.9, adultOther specified health statusConstipation, unspecifiedProblems related to health literacyPrsnl hx of TIA (TIA), and cereb infrc w/o resid deficits No Data Available [facility] 07/[place]/2022 No Data Available [facility] [place] 07/[place]20[place] No Data Available [facility] 07/[place]/2022 No Data Available [facility] 07/[place]/2022 No Data Available [facility] [place] 07/[place]/2022 No Data Available [facility] [place] 07/[place]/2022 Morbid (severe) obesity due to excess caloriesBody mass index (BMI) 40.0-44.9, adultType 2 diabetes mellitus with diabetic chronic kidney diseaseChronic kidney disease, stage 3bPrsnl hx of TIA (TIA), and cereb infrc w/o resid deficitsOther specified health status No Data Available [facility] 07/22/2022 Vital Signs Date of Collection Vitals 2022-07-12 11:38:39 Height - 147.32 cmWe ight - 87.09 kgBody Mass Index (BMI) - 40.13 kg/m2 Social History Sex Female History of Procedures Procedures Service Procedure code Service date Servicing provider Phone# No Data Available [id number] 2022-07-12 No Data Available No Data Available [...] le No Data Available No Data Available [id number] 2022-07-22 No Data Available No Data Available [...]
--- OUTSIDE RECORDS SUMMARY | 2024-11-20 12:17 | XMS_ITS | Encounter Summary ---
Author Organization [employer] Address [address] [facility] 7t [place] [address] Care Team Providers Care Clerical Grader Name Role Phone James Flores MD Primary Care Provide r Reason for Visit * Reason Comments Med Refill Encounter Details Date Type Department Care Team (Late st Contact Info) Description 11/19/2024 Refill [facility] MEDICINE [address] [place] [address] James Flores MD [address] [place] [address] Social History Tobacco Use Types Packs/Day Years [...] Description 12/10/2024 9:15 AM EDT Office Visit [facility] MEDICINE [address] [place] [address] James Flores MD [address] [place] [address] documented as of this encounter Visit Diagnoses Not on filedocumented in this encounter Additional Health Concerns Assessment Noted Time PHQ-9 Depression Total Score: 0 01/30/20 24 10:37 AM EST documented as of this encounter Care Teams Clerical Grader Relationship Specialty Start Date End Date James Flores MD [address] [place] [address] PCP - General Internal Medicine 02/04/14 documented as of this encounter
--- OUTSIDE RECORDS SUMMARY | 2024-11-20 12:17 | XMS_ITS | Encounter Summary ---
Author Organization [facility] Address [address] [facility] [address] [place] [address] Phone Care Team Providers Care Golf Club Head Inspector And Adjuster Name Role Phone James Trimble MD Primary Care Provide r Encounter Details Date Type Department Care Team (Late st Contact Info) Description 12/20/2020 Procedure Pass [facility], [address] [address] Social History Tobacco Use Types Packs/Day Years [...] AM EDT Trey Cardona i, RN * [place] Suicide Severity Rating Scale (Screener/Recent Self-Report) Question [...] documented as of this encounter Care Teams Golf Club Head Inspector And Adjuster Relationship Specialty Start Date End Date James Trimble MD [address] [place] [address] [address] [place] [address] [email or web address] PCP - General 03/16/17 documented as of this encounter Additional Source Comments The information contained in this document represents components of the legal health record. It is not the complete legal health record.[facility]
--- OUTSIDE RECORDS SUMMARY | 2024-11-20 12:17 | XMS_ITS | Encounter Summary ---
Author Organization [employer] Address [address] [facility] 7t [place] [address] Care Team Providers Care Health Data Analyst Name Role Phone James Flores MD Primary Care Provide r Reason for Visit * Reason Comments Med Refill Encounter Details Date Type Department Care Team ([facility] st Contact Info) Description 03/12/2023 Refill [facility] [address] [place] [address] James Flores MD 230 [place] [address] Chronic anemia Social History Tobacco Use Types [...] t he electric, gas, oil or water [employer] threatened to shut off services in your [...] Description 12/10/2024 9:15 AM EDT Office Visit [facility] [address] [place] [address] James Flores MD [address] [place] [address] documented as of this encounter Visit Diagnoses Diagnosis Chronic anemia Unspecified anemia documented in this encounter Care Teams Health Data Analyst Relationship Specialty Start Date End Date James Flores MD [address] [place] [address] PCP - General Internal Medicine 02/04/14 documented as of this encounter
--- OUTSIDE RECORDS SUMMARY | 2024-11-20 12:17 | XMS_ITS | Patient Health Record ---
Author Organization [facility] Address [address] [place] [address] Care Team Providers Care Wafer Polishing Worker Name Role Phone Rudy Ashraf MD, James Primary Care Provide r Unavailable Moris Duron Jr Unavailable Reason For Referral No Information Plan Of Treatment No Information Insurance Providers Payer Name Payer Address Payer Phone Subscriber Number Group Number Insured Name Patient Relationship to Insured Coverage Start Date Coverage End Date MEDICARE OF [place] [address] RADHA BLOUNT [id number] [id number] STEPHANI JOE Self - patient is the insured MEDICAID OF [facility] [address] [place] [address] [id number] STEPHANI JOE Self - patient is the insured
--- OUTSIDE RECORDS SUMMARY | 2024-11-20 12:17 | XMS_ITS | Encounter Summary ---
Author Organization [employer] Address [address] [facility] [address] 7t [place] [address] Care Team Providers Care Medical Office Professional Instructor Name Role Phone James Flores MD Primary Care Provide r Encounter Details Date Type Department Care Team (Late st Contact Info) Description 01/09/2023 Orders Only [facility] MED & PEDS [address] [place] [address] Jaja Hammond LPN Social History Tobacco Use [...] Description 12/10/2024 9:15 AM EDT Office Visit [facility] 230 [place] [address] James Flores MD 230 [place] [address] documented as of this encounter Visit Diagnoses Not on filedocumented in this encounter Care Teams Medical Office Professional Instructor Relationship Specialty Start Date End Date James Flores MD [address] [place], [place] [phone] PCP - General Internal Medicine 02/04/14 documented as of this encounter
--- OUTSIDE RECORDS SUMMARY | 2024-11-20 12:17 | XMS_ITS | Encounter Summary ---
Author Organization [employer] Address [address] [facility] 7t [place] [address] Care Team Providers Care Linen Room Houseperson Name Role Phone James Flores MD Primary Care Provide r Encounter Details Date Type Department Care Team ([facility] st Contact Info) Description 03/14/2023 Telephone [facility] 230 [place] [address] Adriana Odell MA Social History Tobacco Use [...] Visit [facility] 230 [place] [address] James Flores MD 230 [place] [address] documented as of this encounter Visit Diagnoses Not on filedocumented in this encounter Care Teams Linen Room Houseperson Relationship Specialty Start Date End Date James Flores MD 230 [place] [address] PCP - General Internal Medicine 02/04/14 documented as of this encounter
--- OUTSIDE RECORDS SUMMARY | 2024-11-20 12:17 | XMS_ITS | Clinical Summary ---
Author Organization [facility] Address [address] [facility] [address] [place] [address] Phone Care Team Providers Care Newspaper Correspondent Name Role Phone James Trimble MD Primary [...] Active ferrous sulfate 325 mg (65 mg keweenaw iron) tablet Take 325 mg by mouth [...] nebulizer at home does not see a metal trim erector. Considering home neb. ? Having difficulty using [...] (12/21/2020 6:13 AM EDT) HDL 49 mg/dL [facility] Comment: Interpretation <40 mg/dL: Low HDL cholesterol (major risk factor for CHD) Greater than or equal to 60 mg/dL: High HDL cholesterol ( negative risk factor for CHD) HDL - cholesterol is affected by a number of factors, e.g. smoking, excerise, hormones, sex and age. CHOLESTEROL 160 0 - 240 mg/dL [facility] TRIGLYCERIDES 109 30 - 160 mg/dL [facility] LDL 89 50 - 129 mg/dL [facility] Comment: LDL levels in terms of risk for coronary heart disease: <100 mg/dL: Optimal 100-129 mg/dL: Near or above optimal 130-159 mg/dL: Borderline high 160-189 mg/dL: High >190 mg/dL: Very High CARDIAC RISK RATIO 3.3 3.3 - 4.4 [facility] Blood 12/21/2020 6:13 AM EDT 12/21/2020 6:36 AM EDT us Avni Bernard MD LAB BLOOD ORDERABLES Fin al Result [facility] [address] [place] [address] from Last 3 Months or Most Recently Relevant to Health Maintenance Insurance MEDICARE REPLACEMENT [place]OR [address] MEDICARE REPLACEMENT MEDICARE REPLACEMENT MEDICARE REPLACEMENT MEDICARE REPLACEMENT MEDICARE REPLACEMENT Advance Directives For more information, please contact: [phone] (9AM - 5PM [facility], Monday-Monday) * Full Code (Latest Code Status on File) Date Activated Date Inactivated Comments 06/26/2021 2:17 PM Question Answer Comments Code Status Confirmed With: Patient * Full Code Date Activated Date Inactivated Comments 12/20/2020 7:48 PM 06/26/2021 2:17 PM Question Answer Comments Code Status Confirmed With: Patient Care Teams Newspaper Correspondent Relationship Specialty Start Date End Date James Trimble MD [address] [place] [address] [address] [place] [address] [email or web address] PCP - General 03/16/17 Additional Source Comments The information contained in this document represents components of the legal health record. It is not the complete legal health record.[facility]
--- OUTSIDE RECORDS SUMMARY | 2024-11-20 12:17 | XMS_ITS | Encounter Summary ---
Author Organization [employer] Address [address] [facility] 7t [place] [address] Care Team Providers Care Laborer Aquatic Life Name Role Phone James Flores MD Primary Care Provide r Encounter Details Date Type Department Care Team (Late st Contact Info) Description 08/22/[address] [facility] MED & PEDS [address] [place], [place] [phone] Jaja Hammond LPN Social History Tobacco Use [...] Office Visit [facility] 230 [place], [place] [phone] James Flores MD 230 [place] [address] documented as of this encounter Visit Diagnoses Not on filedocumented in this encounter Care Teams Laborer Aquatic Life Relationship Specialty Start Date End Date James Flores MD [address] [place] [address] PCP - General Internal Medicine 02/04/14 documented as of this encounter
--- OUTSIDE RECORDS SUMMARY | 2024-11-20 12:17 | XMS_ITS | Encounter Summary ---
Author Organization [employer] Address [address] [facility] 7t [place] [address] Care Team Providers Care Answering Service Agent Name Role Phone James Flores MD Primary Care Provide r Reason for Visit * Reason Onset Date Comments Call Back Request 08/07/2024 Appointment Request 08/07/2024 Encounter Details Date Type Department Care Team ([facility] st Contact Info) Description 08/07/2024 Telephone [facility] 230 [place] [address] Jamse Flores MD [address] [place] [address] Call Back Request; Appointment Request Social History [...] request for telehealth visit Please return call [phone] documented in this encounter Plan of Treatment Upcoming Encounters Date Type Department Care Team (Late st Contact Info) Description 12/10/2024 9:15 AM EDT Office Visit [facility] [address] [place] [address] James Flores MD [address] [place] [address] documented as of this encounter Visit Diagnoses Not on filedocumented in this encounter Additional Health Concerns Assessment Noted Time PHQ-9 Depression Total Score: 0 01/30/20 10:37 AM EST documented as of this encounter Care Teams Answering Service Agent Relationship Specialty Start Date End Date James Flores MD [address] [place] [address] PCP - General Internal Medicine 02/04/14 documented as of this encounter
--- OUTSIDE RECORDS SUMMARY | 2024-11-20 12:17 | XMS_ITS | Encounter Summary ---
Author Organization [employer] Address [address] [facility] [facility] [address] 7t [place] [address] Care Team Providers Care Cupola Tapper Helper Name Role Phone James Flores MD Primary Care Provide r Reason for Visit * Reason Comments Med Refill Encounter Details Date Type Department Care Team (Late st Contact Info) Description 05/10/2024 Refill [facility] 230 [place] [address] Coco Montiel NP 230 [place] [address] Mild intermittent asthma without complication Social History [...] Description 12/10/2024 9:15 AM EDT Office Visit [facility]INE [address] [place] [address] James Flores MD 230 [place] [address] documented as of this encounter Visit Diagnoses Diagnosis Mild intermittent asthma without complication documented in this encounter Additional Health Concerns Assessment Noted Time PHQ-9 Depression Total Score: 0 01/30/20 24 10:37 AM EST documented as of this encounter Care Teams Cupola Tapper Helper Relationship Specialty Start Date End Date James Flores MD 230 [place] [address] PCP - General Internal Medicine 02/04/14 documented as of this encounter
--- OUTSIDE RECORDS SUMMARY | 2024-11-20 12:17 | XMS_ITS | Encounter Summary ---
Author Organization [facility] Address [address] [facility] 7[address] [place] [address] Care Team Providers Care Home Energy Consultant Name Role Phone James Flores MD Primary Care Provide r Reason for Visit * Reason Comments Med Refill Encounter Details Date Type Department Care Team (Late st Contact Info) Description 08/21/2022 Refill [facility] 230 [place] [address] James Flores MD 230 [place], [place] [phone] Social History Tobacco Use Types Packs/Day Years [...] 12/10/2024 9:15 AM EDT Office Visit [facility] 230 [place], [place] [phone] James Flores MD 230 [place], [place] [phone] documented as of this encounter Visit Diagnoses Not on filedocumented in this encounter Care Teams Home Energy Consultant Relationship Specialty Start Date End Date James Flores MD [address] [place] [address] PCP - General Internal Medicine 02/04/14 documented as of this encounter
--- OUTSIDE RECORDS SUMMARY | 2024-11-20 12:17 | XMS_ITS | Encounter Summary ---
Author Organization [facility] Address [address] [facility] [address] [place] [address] Phone Care Team Providers Care Local Delivery Truck Driver Name Role Phone James Trimble MD Primary Care Provide r Encounter Details Date Type Department Care Team (Late st Contact Info) Description 01/25/2021 Procedure Pass [facility], Ct Scan - [address] [address] Social History Tobacco Use Types Packs/Day Years [...] 01/25/2021 12:53 PM Corinne Rodriguez, LISA * [place] Suicide Severity Rating Scale (Screener/Recent Self-Report) Question [...] documented as of this encounter Care Teams Local Delivery Truck Driver Relationship Specialty Start Date End Date James Trimble MD [address] [place] [address] [place] [phone] PCP - General 03/16/17 documented as of this encounter Additional Source Comments The information contained in this document represents components of the legal health record. It is not the complete legal health record.[facility]
--- OUTSIDE RECORDS SUMMARY | 2024-11-20 12:17 | XMS_ITS | Encounter Summary ---
Author Organization [facility] Address [address] [facility] [address] [place] [address] Phone Care Team Providers Care Cleaning Staff Supervisor Name Role Phone James Trimble MD Primary Care Provide r Encounter Details Date Type Department Care Team (Late st Contact Info) Description 12/20/2020 Procedure Pass [facility], Ct Scan - [address] [address] Social History Tobacco Use Types Packs/Day Years [...] AM EDT Trey Cardona i, RN * [place] Suicide Severity Rating Scale (Screener/Recent Self-Report) Question [...] documented as of this encounter Care Teams Cleaning Staff Supervisor Relationship Specialty Start Date End Date James Trimble MD [address] [place] [address] [address] [place] [address] [email or web address] PCP - General 03/16/17 documented as of this encounter Additional Source Comments The information contained in this document represents components of the legal health record. It is not the complete legal health record.[facility]
--- OUTSIDE RECORDS SUMMARY | 2024-11-20 12:17 | XMS_ITS | Encounter Summary ---
Author Organization [employer] Address [address] [facility] 7t [place] [address] Care Team Providers Care Pump And Still Operator Name Role Phone James Flores MD Primary Care Provide r Encounter Details Date Type Department Care Team (Late st Contact Info) Description 06/14/2022 Orders Only [facility] CHC MED & PEDS 505 [place], [place] [phone] Jaja Hammond LPN Social History Tobacco Use [...] Description 12/10/2024 9:15 AM EDT Office Visit [facility] MEDICINE 230 [place], [place] [phone] James Flores MD 230 [place] [address] documented as of this encounter Visit Diagnoses Not on filedocumented in this encounter Care Teams Pump And Still Operator Relationship Specialty Start Date End Date James Flores MD [address] [place] [address] PCP - General Internal Medicine 02/04/14 documented as of this encounter
--- OUTSIDE RECORDS SUMMARY | 2024-11-20 12:18 | XMS_ITS | Encounter Summary ---
Author Organization [facility] Address [address] [facility] [address] [place] [address] Phone Care Team Providers Care Ice Platform Supervisor Name Role Phone James Trimble MD Primary Care Provide r Encounter Details Date Type Department Care Team (Late st Contact Info) Description 12/21/2020 Procedure Pass [facility] 30 [place] [address] Social History Tobacco Use Types Packs/Day Years [...] AM EDT Trey Cardona i, RN * [place] Suicide Severity Rating Scale (Screener/Recent Self-Report) Question Answer Date of Assessment Author 1. Wish to be (Past 1 Month) No 12/21/2020 5:00 AM EDT Trey Alonso RN 2. Non-Specific Active Suicidal Thoughts (Past 1 Month) No 12/21/2020 5:00 AM EDT Trey Alnoso RN 6. Suicidal Behavior (Lifetime) No 12/21/2020 [...] documented as of this encounter Care Teams Ice Platform Supervisor Relationship Specialty Start Date End Date James Trimble MD [address] [place] [address] [address] [place] [address] [email or web address] PCP - General 03/16/17 documented as of this encounter Additional Source Comments The information contained in this document represents components of the legal health record. It is not the complete legal health record.[facility]
--- OUTSIDE RECORDS SUMMARY | 2024-11-20 12:18 | XMS_ITS | Encounter Summary ---
Author Organization [employer] Address [address] [facility] 7t [place] [address] Care Team Providers Care Robotics Technologist Name Role Phone James Flores MD Primary Care Provide r Reason for Visit * Reason Comments Med Refill Encounter Details Date Type Department Care Team (Late st Contact Info) Description 09/04/2023 Refill [facility] 230 [place] [address] Name, MD Loki [address] [place] [address] Gastroesophageal reflux disease without esophagitis Social History [...] t he electric, gas, oil or water [employer] threatened to shut off services in your [...] Description 12/10/2024 9:15 AM EDT Office Visit [facility] [address] [place] [address] James Flores MD [address] [place] [address] documented as of this encounter Visit Diagnoses Diagnosis Gastroesophageal reflux disease without esophagitis Esophageal reflux documented in this encounter Care Teams Robotics Technologist Relationship Specialty Start Date End Date James Flores MD [address] [place] [address] PCP - General Internal Medicine 02/04/14 documented as of this encounter
--- OUTSIDE RECORDS SUMMARY | 2024-11-20 12:18 | XMS_ITS | Encounter Summary ---
Author Organization [employer] Address [address] [facility] 7t [place] [address] Care Team Providers Care Computer Applications Instructor Name Role Phone James Flores MD Primary Care Provide r Encounter Details Date Type Department Care Team (Late Contact Info) Description 04/13/2022 Orders Only [facility] MEDICINE [address] [place] [phone] April Olsen LPN Social History Tobacco Use [...] Description 12/10/2024 9:15 AM EDT Office Visit [facility] MEDICINE 230 [place], [place] [phone] James Flores MD [address] [place], [place] [phone] documented as of this encounter Visit Diagnoses Not on filedocumented in this encounter Care Teams Computer Applications Instructor Relationship Specialty Start Date End Date James Flores MD 230 [place] [address] PCP - General Internal Medicine 02/04/14 documented as of this encounter
--- OUTSIDE RECORDS SUMMARY | 2024-11-20 12:18 | XMS_ITS | Encounter Summary ---
Author Organization [employer] Address [address] [facility] 7t [place] [address] Care Team Providers Care Centrifugal Separator Name Role Phone James Flores MD Primary Care Provide r Reason for Visit * Reason Onset Date Comments Durable Medical Equipment 09/27/2023 Encounter Details Date Type Department Care Team (Late st Contact Info) Description 09/27/2023 Telephone [facility] MEDICINE 230 [place] [address] James Flores MD [address] [place], [place] [phone] Durable Medical Equipment Social History Tobacco Use [...] 1 flip pillow DME Please contact at [phone] * Telephone Encounter - Fernando Christie - 09/27/2023 2:40 PM EDT Tc from pt 10 in 1 flip pillow due to issues sleeping. Pt would like script to be faxed to [facility]. If any questions you can contact pt at [phone]. documented in this encounter Plan of Treatment Upcoming Encounters Date Type Department Care Team (Late st Contact Info) Description 12/10/2024 9:15 AM EDT Office Visit [facility] MEDICINE [address] [place] [address] James Flores MD 230 [place] [address] documented as of this encounter Visit Diagnoses Not on filedocumented in this encounter Care Teams Centrifugal Separator Relationship Specialty Start Date End Date James Flores MD [address] [place] [address] PCP - General Internal Medicine 02/04/14 documented as of this encounter
--- OUTSIDE RECORDS SUMMARY | 2024-11-20 12:18 | XMS_ITS | Encounter Summary ---
Author Organization [facility] Address [address] [place] [address] Phone Care Team Providers Care Home Care Consultant Name Role Phone James Grant MD Primary Care Provider Unav ailable Reason for Visit * Reason Comments Med Refill Encounter Details Date Type Department Care Team (Late st Contact Info) Description 12/14/2022 Refill [facility] [address] [place] [address] Osmany Leung MD Social History [...] filedocumented in this encounter Care Teams Home Care Consultant Relationship Specialty Start Date End Date James Grant MD PCP - General 03/23/20 documented as of this encounter
--- OUTSIDE RECORDS SUMMARY | 2024-11-20 12:18 | XMS_ITS | Encounter Summary ---
Author Organization [employer] Address [address] [facility] 7t [place] [address] Care Team Providers Care Opera Singer Name Role Phone James Flores MD Primary Care Provide r Reason for Visit * Reason Onset Date Comments Nurse Triage 03/18/2024 Encounter Details Date Type Department Care Team (Late st Contact Info) Description 03/18/2024 Telephone [facility] 230 [place] [address] James Flores MD 230 [place] [address] Nurse Triage Social History Tobacco Use Types [...] 03/18/2024 11:50 AM EST Triage call with [facility] [place] [id number]. Pt reports continual coughing with cold symptoms. Pt was seen in [facility] 02/29/24 for cough and exacerbation of asthma. Pt reports has been using inhaler and nebulizer as prescribed though not every day.Pt denies having difficulty breathing. Pt requests to see provider again due to continuation of cough and cold symptoms neg for fever. Pt is advised to return to [facility] today open till 8pm and Pt agreeswith this disposition. Pt is requesting what medication could be taken for cough , Pt is taking BP medications and is advised to ask provider when seen in [facility] and Pt agrees. Insurance is verified [...] Description 12/10/2024 9:15 AM EDT Office Visit [facility] [address] [place] [address] James Flores MD [address] [place] [address] documented as of this encounter Visit Diagnoses Not on filedocumented in this encounter Additional Health Concerns Assessment Noted Time PHQ-9 Depression Total Score: 0 01/30/20 24 10:37 AM EST documented as of this encounter Care Teams Opera Singer Relationship Specialty Start Date End Date James Flores MD [address] [place] [id number] PCP - General Internal Medicine 02/04/14 documented as of this encounter
--- OUTSIDE RECORDS SUMMARY | 2024-11-20 12:18 | XMS_ITS | Clinical Summary ---
Author Organization [facility] Address [address] [facility] [address] [place] [address] Phone Care Team Providers Care Forest Aide Name Role Phone James Grant MD Primary [...] patient's age to complete this topic Insurance [employer] Care Teams Forest Aide Relationship Specialty Start Date End Date Jaems Grant MD PCP - General 03/23/20
--- OUTSIDE RECORDS SUMMARY | 2024-11-20 12:18 | XMS_ITS | Encounter Summary ---
Author Organization [employer] Address [address] [facility] 7t [place] [address] Care Team Providers Care Treatment Technician Name Role Phone James Flores MD Primary Care Provide r Reason for Visit * Reason Onset Date Comments Durable Medical Equipment 07/30/2024 Encounter Details Date Type Department Care Team (Late st Contact Info) Description 07/30/2024 Telephone [facility] [address] [place] [address] James Flores MD [address] [place] [address] Durable Medical Equipment Social History Tobacco Use [...] Description 12/10/2024 9:15 AM EDT Office Visit [facility] [address] [place] [address] James Flores MD [address] [place] [address] documented as of this encounter Visit Diagnoses Not on filedocumented in this encounter Additional Health Concerns Assessment Noted Time PHQ-9 Depression Total Score: 0 01/30/20 24 10:37 AM EST documented as of this encounter Care Teams Treatment Technician Relationship Specialty Start Date End Date James Flores MD [address] [place] [address] PCP - General Internal Medicine 02/04/14 documented as of this encounter
--- OUTSIDE RECORDS SUMMARY | 2024-11-20 12:18 | XMS_ITS | Encounter Summary ---
Author Organization [employer] Address [address] [facility] [address] [place] [address] Care Team Providers Care Direct Support Worker Name Role Phone James Flores MD Primary Care Provide r Encounter Details Date Type Department Care Team ([facility] st Contact Info) Description 01/11/2024 Telephone [facility] [address], [place] [phone] James Flores MD [address] [place], [place] [phone] Social History Tobacco Use Types Packs/Day Years [...] Description 12/10/2024 9:15 AM EDT Office Visit [facility] [address] [place] [phone] James Flores MD [address] [place] [address] documented as of this encounter Visit Diagnoses Not on filedocumented in this encounter Care Teams Direct Support Worker Relationship Specialty Start Date End Date James Flores MD [address] [place] [id number] PCP - General Internal Medicine 02/04/14 documented as of this encounter
--- OUTSIDE RECORDS SUMMARY | 2024-11-20 12:18 | XMS_ITS | Clinical Summary ---
Author Organization [employer] Address [address] [place] [address] Care Team Providers Care Multimedia Assistant Name Role Phone James Flores MD [...] the morning. 023 Active Calcium Citrate-Vitamin D ([place] Calcium/Vitamin D) 200-6.25 MG-MCG tablet TAKE 2 [...] CHANGE EVERY 14 DAYS Active Continuous Glucose Knee Bolter (FreeStyle Collin 3 [place]) device USE DIRECTED Active bisacodyl (Dulcolax) 10 MG suppository INSERT 1 SUPPOSITORY RECTALLY ONCE DAILY NEEDED FOR CONSTIPATION Active Albuterol Sulfate 108 (90 Base) MCG/ACT aerosol powderIndications :Mild intermittent asthma without complication Inhale 2 puffs by mouth every 4 to 6 hours as needed 8.5 each 3 Active albuterol (2.5 MG/3ML) 0.083% nebulizer solutionIndicatio ns:Mild intermittent asthma without complication Take 3 mL by nebulization if needed in the morning, at noon, in the evening, and at bedtime (use 4-6 times a day as needed). 90 mL 3 Active nystatin (Mycostatin) 288306 UNIT/GM powderIndications :Tinea corporis Apply topically 2 times daily. 30 g 3 025 2025 Active Diclofenac Sodium 1 % gel Apply [...] 2025 Active hydrOXYzine HCl (Atarax) 25 MG tabletIndications :Anxiety Take 0.5 tablets (12.5 mg) by mouth every 8 (eight) hours if needed for anxiety. May take 1/2 to 1 tablet every 8 hours prn 30 tablet 025 Active amLODIPine (Norvasc) 5 MG tablet TAKE 1 TABLET BY MOUTH EVERY EVENING 30 tablet 5 025 Active loratadine (Claritin) 10 MG tabletIndications :Seasonal allergies TAKE 1 TABLET BY MOUTH EVERY MORNING 30 tablet 5 025 Active BD Pen Needle Nneka U/F 32G X 4 MM miscIndications:T ype 2 diabetes mellitus without complication, with long-term current use of insulin ([facility]) USE DIRECTED FOUR TIMES DAILY 100 each 6 025 Active HumaLOG KWIKPEN 100 UNIT/ML injectionIndicati ons:Type 2 diabetes mellitus without complication, with long-term current use of insulin ([facility]) INJECT 6 TO 16 UNITS SUBCUTANEOUSLY DIRECTED PER SLIDING SCALE BLOOD SUGAR 150-200 = 6 UNITS, 201-250 = 10U, 251-300 = 12U, 301-350 = 14U, > 351 = 16U 15 mL 3 025 Active meloxicam (Mobic) 15 MG tablet Take 1 tablet p.o./day x 2 weeks then 1 tablet/day as needed pain thereafter 30 tablet 025 Active acetaminophen (Tylenol) 500 MG tablet 31-2 tablets p.o. 3 times daily as needed pain- 60 tablet 025 Active clopidogrel (Plavix) 75 MG tablet TAKE 1 TABLET BY MOUTH EVERY EVENING 90 tablet 3 025 Active insulin glargine (Lantus SoloStar) 100 UNIT/ML penIndications:Ty pe 2 diabetes mellitus without complication, with long-term current use of insulin ([facility]) INJECT 35 UNITS SUBCUTANEOUSLY EVERY DAY 15 mL 2 025 Active atorvastatin (Lipitor) 80 MG tabletIndications :Mixed hyperlipidemia TAKE 1 TABLET BY MOUTH AT BEDTIME 30 tablet 5 025 Active Ferrous Sulfate (iron) 325 (65 Fe) MG tabletIndications :Chronic anemia TAKE 1 TABLET BY MOUTH THREE TIMES DAILY IN THE MORNING, AT NOON, AND IN THE EVENING 90 tablet 1 Active lidocaine (Lidoderm) 5 % patchIndications: Acute left-sided low back pain without sciatica Apply 1 patch topically Once per day. Remove & discard patch within 12 hours or as directed by MD. 30 patch Active metoprolol tartrate (Lopressor) 50 MG tablet TAKE 1 TABLET BY MOUTH TWICE DAILY IN THE MORNING AND IN THE EVENING WITH FOOD 180 tablet 1 Active metoprolol tartrate (Lopressor) 50 MG tablet TAKE 1 TABLET BY MOUTH TWICE DAILY IN THE MORNING AND IN THE EVENING WITH FOOD 180 tablet 1 025 2024 Discontinued acetaminophen (Tylenol Extra Strength) 500 MG tabletIndications :Pain of toe of left foot,Acute left-sided low back pain without sciatica Take 2 tablets (1,000 mg) by mouth every 8 (eight) hours if needed for moderate pain for up to 10 days. 30 tablet 025 2024 cyclobenzaprine (Flexeril) 5 MG tabletIndications :Acute left-sided low back pain without sciatica Take 1 tablet (5 mg) by mouth at bedtime for 10 days. 10 tablet 2024 Active Problems Problem Noted Date Diagnosed [...] to far out. Pt did see an Doctor Of Dental Medicine that did not see any abnormalitites and [...] to far out. Pt did see an Doctor Of Dental Medicine that did not see any abnormalitites and [...] acute injury to the right knee. 2. Lrlj-vi-kwvxiwny lateral compartment degenerative changes. Left: IMPRESSION: 1. [...] acute injury to the right knee. 2. Yhcx-ak-ulxgsamc lateral compartment degenerative changes. Left: IMPRESSION: 1. [...] of colon 02/07/2024 GERD (gastroesophageal reflux disease) 4 Goiter 02/07/2024 Assessment & Plan (07/23/2024 11:13 [...] underwent Colpo with biopsies & ECC per [facility] notes from 04/2017 Colonoscopy: 07/2022 Tubular adenoma repeat 3 years Vaccines: Flu shot: tdap: 05/31/2013 Dexa scan:. 04/28/2015 showed osteopenia Assessment & Plan (01/30/2024 11:02 AM EST): Routine physical exam today: within normal limits Mammogram: NL : 02/22/2023 Pap Smear: 06/27/2023: Normal In 11/24/2016 ASCUS with positive HPV. Pt underwent Colpo with biopsies & ECC per [facility] notes from 04/2017 Colonoscopy: 07/2022 Tubular adenoma repeat 3-5 years Vaccines: Flu shot: tdap: 05/31/2013 Dexa scan:. 04/28/2015 showed osteopenia Assessment & Plan (01/19/2023 1:43 PM EST): Mammogram: NL : 01/29/2021 Pap Smear: 11/24/2016 ASCUS with positive HPV. Pt underwent Colpo with biopsies & ECC per [facility] notes from 04/2017 she was supposed to have a repeat with co test 04/2018 and if both neg then would f/u in 3 years records requested Colonoscopy: 07/2022 Tubular adenoma repeat 3-5 years Vaccines: Flu shot: tdap: 05/31/2013 Dexa scan:. 04/28/2015 showed osteopenia History of CVA (cerebrovascular accident) 2021 Assessment & Plan (05/30/2024 9:07 AM EDT): Hx of this Pt was admitted to [facility] from 10:12/31-12/22/2020 Patient presented to [...] Hx of this Pt was admitted to [facility] from :12/31-12/22/2020 Patient presented to ED [...] Plan (01/31/2023 11:27 AM EST): Seen at [facility] 01/28/2023 with an asthma exacerbation [...] disease and negative nuclear stress test at [facility] . Due to her Hx of [...] disease and negative nuclear stress test at [facility] . Due to her recent CVA [...] disease and negative nuclear stress test at [facility] . Due to her recent CVA [...] Encounters Date Type Department Care Team Description 11/20/2024 Refill [facility] [address] [facility] [place] [address] James Flores MD Type 2 diabetes mellitus without complication, with long-term current use of insulin ([facility]) 11/19/2024 Refill [facility] [address] [place] [address] James Flores MD 11/14/[address] [address] Yazmin Ashraf [place] 11/13/2024 Orders Only GENERIC EXTERNAL DATA DEPARTMENT Provider, Generic External Data 11/01/2024 Results Follow-Up [address] [address] Ruchi Ayala MD XR Foot 3+ Views Left 10/31/2024 Orders Only GENERIC EXTERNAL DATA DEPARTMENT Provider, Generic External Data 10/30/2024 6:00 PM EDT Office Visit [facility] [address] [place] [phone] Ruchi Ayala MD Pain of toe of left foot (Primary Dx); Acute left-sided low back pain without sciatica 10/30/2024 Travel 10/16/2024 Telephone [facility] [address] [place] [phone] James Flores MD Durable Medical Equipment 10/07/2024 Telephone [facility] [address] [place] [phone] James Flores MD Durable Medical Equipment 10/02/[address] [address] James Flores MD Med Refill 09/20/[address] [address] James Flores MD Chronic anemia 09/11/2024 Orders Only GENERIC EXTERNAL DATA DEPARTMENT Provider, Generic External Data 09/06/[address] [address] James Flores MD Durable Medical Equipment 09/03/2024 11:15 AM EDT Office Visit [address] [address] James Flores MD Type 2 diabetes mellitus with stage 3a chronic kidney disease, with long-term current use of insulin (CMS/HCC) (Primary Dx); Temporal arteritis ([facility]); Primary osteoarthritis of left knee; Acute pain of both knees; Breast cancer screening by mammogram; Hypertension, unspecified type; CKD stage 3 secondary to diabetes ([facility]); Urinary incontinence, unspecified type 09/03/2024 Travel 09/03/[address] [address] James Flores MD Paperwork/Forms 09/03/[address] [address] James Flores MD Referral 09/02/[address] [address] James Flores MD chart prep 08/25/2024 Orders Only GENERIC EXTERNAL DATA DEPARTMENT Provider, Generic External Data 08/22/2024 Refill [facility] [address] [place] [address] James Flores MD Mixed hyperlipidemia from Last [...] 12/10/2024 9:15 AM EDT Office Visit [facility] [address] [place] [phone] James Flores MD [address] [place] [address] Health Maintenance Due Date Last Done Comments CT Colonography 1955 FIT DNA/Cologuard 1955 FIT 1955 FOBT 1955 Sigmoidoscopy 1955 Hepatitis C Screening 05/18/1973 Pneumococcal Vaccine: 50+ Years (1 of 2 - PCV) 05/18/1974 RSV Patients and Patients Aged 60 years or older (1 - Risk 60-74 years 1-dose series) 2015 Zoster Vaccines (3 of 3) 09/14/2021 07/20/2021, 08/0 11/2015 COVID-19 Vaccine ( season) 2024 08/31/2020, 08/01/2020 Influenza Vaccine (#1) 2024 , 11/23/2022, 11/23/2022, Additional history exists Alcohol/Substance Use Screening 01/29/2025 01/30/2024 Depression Screening 01/29/2025 01/30/2024, 01/30/20 Diabetes: Hemoglobin A1C 01/31/2025 025, 09/03/2024, 03/21/2024, Additional history exists SDOH Screening 05/30/2025 05/30/2024 Colonoscopy 07/11/2025 07/11/2022 Colorectal Cancer Screening 07/11/2025 Tobacco Screening 09/03/2025 09/03/2024 Diabetes: Foot Exam 10/30/2025 10/30/2024, 02/07/2024, 02/07/2024, Additional history exists Lipid Panel 10/31/2025 10/31/2024, 01/12, 01/19/2023, Additional history exists Eye Exam 06/20/2026 06/20/2024 Mammogram 11/14/2026 11/14/2024, 10/12, 02/22/2023, Additional history exists HPV/Cotest 01/17/2027 01/17/2022, 110 09/2021, 11/24/2016 Pap [...] Procedure Name Priority Date/Time Associated Diagnosis Comments HM MAMMOGRAPHY Routine 11/14/2024 10:06 AM EDT GLUCOSE, WHOLE BLOOD Routine 11/13/2024 9:56 AM [...] use of insulin (CMS/HCC) POCT GLUCOSE Routine 09/03/2024 11:38 AM EDT Type 2 diabetes mellitus with stage 3a chronic kidney disease, with long-term current use of insulin (CMS/HCC) COMPREHENSIVE METABOLIC PANEL Routine 08/25/2024 11:00 PM EDT URINALYSIS, COMPLETE, WITH REFLEX TO CULTURE Routine 08/25/2024 11:00 PM EDT CBC Routine 08/25/2024 11:00 PM EDT CULTURE, URINE, ROUTINE Routine 08/26/19 11:00 PM EDT AMB REFERRAL TO OPHTHALMOLOGY Urgent 06/20/2024 Giant cell arteritis (CMS/HCC) PAP SMEAR Routine 06/22/2023 3:20 PM EDT HM COLONOSCOPY Routine 07/11/2022 3:53 PM EDT ZZZ HISTORICAL HPV E6/E7 RFLX DANIAL 16 18/45 Routine 01/17/2022 4:22 PM EST from Last 3 Months or Most Recently Relevant to Health Maintenance Results * Mammography (11/14/2024 10:06 AM EDT) Mammogram BIRADS 1 Normal, Abnormal, BIRADS 1 , BIRADS 2 Comment:follow up 1 year Anatomical Region Laterality Modality Other us Historical Provider MD HEALTH MAINTENANCE Final Result * Glucose, Whole Blood (11/13/2024 9:56 AM EDT) Only the most recent of2 resultswithin the time period is included. Glucose, Whole Blood 102 60 - 115 mg/dL [facility] Comment:METER #: [id number] 0Testing performed in the Endocrinology Department [address] , [address], [place]. 11/13/2024 9:56 AM EDT 11/13/2024 10:00 AM EDT Generic External Data Provider LAB BLOOD ORDERAB LES Final Result [facility] [address] [facility] [place] [address] [phone] * BI Mammogram Screening Tomosynthesis Bilateral (11/04/2024 11:10 AM EDT) Anatomical Region Laterality Modality Breast Bilateral Mammography 11/04/2024 11:1 0 AM EDT Narrative 11/08/2024 5:49 PM EDT [facility] [address] [place] [address] Mammography Report Signed Patient: Jayne Lane MR#: [id number] : 1955 Acct:[id number] Age/Sex: 69 / F ADM Date: 11/04/24 Loc: HO.MAMMO Attending Dr: James Trimble MD Ordering Physician: James Trimble MD Resu lts: 1Negative Date of Service: 11/04/24 Follow Up: 1 Year From Orig ina Mammogram Procedure(s): MM tomosynthesis screening BI Accession Number(s): [id number] cc: James Trimble MD EXAMINATION: MM SCREENING [...] 11/08/24 1746 DD/ 1110 TD/TT: 11/04/24 1133 Small Animal Veterinarian: Procedure Note Donotuseinterpreter, Image - 11/08/[facility] [address] [place] [address] Mammography Report Signed Patient: Jayne LaneMR#: [id number] : 6Acct:[id number] Age/Sex: 69 / FADM Date: 11/04/24 Loc: HO.MAMMO Attending Dr: James Trimble MD Ordering Physician: James Trimble MDResu lts: 1Negative Date of Service: 11/04/24Follow Up: 1 Year From Orig inal Mammogram Procedure(s): MM tomosynthesis screening BI Accession Number(s): [id number] cc: James Trimble MD EXAMINATION: MM SCREENING [...] 11/08/24 1746 DD/ 1110 TD/TT: 11/04/24 1133 Small Animal Veterinarian: us James Ashraf MD IMG BI PROCEDURES Fin al Result * Proteinase-3 Antibody (10/31/2024 10:27 AM EDT) Proteinase-3 Antibody <1.0 [facility] Comment:Value Interpretation ----- <1.0 No Antibody Detected > or = 1.0 Antibody DetectedAutoantibodies to proteinase-3 (NY-3) are accepted ascharacteristic for granulomatosis with polyangiitis(GPA, Cresencio's), and are detectable in 95% of thehistologically proven cases. The cytoplasmic IFApattern, (c-ANCA), is based largely on autoantibody toPR-3 which serves as the primary antigen.These autoantibodies are present in active disease.THIS TEST WAS PERFORMED AT:[facility] [place] [phone] CHAND MD 10/31/2024 10:2 7 AM EDT 10/31/2024 11:25 AM EDT Generic External Data Provider LAB BLOOD ORDERAB LES Final Result [facility] [address] [place] [phone] * Myeloperoxidase Antibody (MPO) (10/31/2024 10:27 AM EDT) Myeloperoxidase Antibody <1.0 [facility] Comment:Value Interpretation ----- <1.0 No Antibody Detected > or = 1.0 Antibody DetectedAutoantibodies to myeloperoxidase (MPO) are commonlyassociated with the following small-vesselvasculitides: microscopic polyangiitis,polyarteritis nodosa, Churg-Kelton syndrome,necrotizing and crescentic glomerulonephritis andoccasionally granulomatosis with polyangiitis(GPA, Cresencio's). The perinuclear IFA pattern,(p-ANCA) is based largely on autoantibody tomyeloperoxidase which serves as the primary antigen.These autoantibodies are present in active disease.THIS TEST WAS PERFORMED AT:[facility] [place] [phone] CHAND MD 10/31/2024 10:2 7 AM EDT 10/31/2024 11:25 AM EDT Generic External Data Provider LAB BLOOD ORDERAB LES Final Result Performing Organization Address [facility] Phone Number [facility] [address] [place] [phone] * (ABNORMAL) Protein Creatinine Ratio, Urine (10/31/2024 10:27 AM EDT) Creatinine, Urine 133.81 mg/dL [facility] Protein, Total, Random Urine 58(H) <12 mg/dL [facility] Protein/Creati nine Ratio, Ur 0.43(H) <0.2 [facility] Comment:The spot urine prote in:creatinine ratio may increase to 0.3during normal . 10/31/2024 10:2 7 AM EDT 10/31/2024 11:10 AM EDT [facility] External Data Provider LAB URINE ORDERAB LES Final Result Performing Organization Address [facility] Number [facility] [address] [place] [phone] * Phospholipase A2 Receptor (PLA2R) Antibody Panel (10/31/2024 10:27 AM EDT) Phospholipase A2 Receptor (PLA2R) Ab, ABHIJEET <4 RU/mL [facility] Comment:Reference Range: <14 : NEGATIVE 14-19: BORDERLINE >19: POSITIVE Phospholipase A2 Receptor (PLA2R) Ab, IFA NEGATIVE NEGATIVE [facility] Comment:THIS TEST WAS PERFOR MED AT:[id number] [place] [phone] DELATORRE MD,PHD,SHU 10/31/2024 10:2 7 AM EDT 10/31/2024 11:25 AM EDT Generic External Data Provider LAB BLOOD ORDERAB LES Final Result Performing Organization Address City/[facility]/ZIP Co de Phone Number [facility] [address] [place] [phone] * Immunofixation (SONIA), Urine (10/31/2024 10:27 AM EDT) SONIA Interpretation [facility] Comment:No monoclonal protei ns detected.THIS TEST WAS PERFORMED AT:[facility] [place] [phone] CHAND MD 10/31/2024 10:2 7 AM EDT 10/31/2024 11:10 AM EDT Generic External Data Provider LAB URINE ORDERAB LES Final Result Performing Organization Address [facility] Co de Phone Number [facility] [address] [place] [phone] * Glomerular Basement Membrane Antibody (IgG) (10/31/2024 10:27 AM EDT) Pathologist [facility] Glomerular Basement Memebrane Antibody (IgG) <1.0 [facility] Comment:Value Interpretation ----- <1.0 No Antibody Detected > or = 1.0 Antibody DetectedTHIS TEST WAS PERFORMED AT:[facility] [place] [phone] CHAND MD 10/31/2024 10:2 7 AM EDT 10/31/2024 11:25 AM EDT Generic External Data Provider LAB BLOOD ORDERAB LES Final Result Performing Organization Address [facility] Co de Phone Number [facility] [address] [place] [phone] * DNA (ds) Antibody (10/31/2024 10:27 AM EDT) Anti DNA DS Antibody 1 IU/mL [facility] Comment:IU/mL Interpretation < or = 4 Negative 5-9 Indeterminate > or = 10 PositiveTHIS TEST WAS PERFORMED AT:[facility] [place] [phone] CHAND MD 10/31/2024 10:2 7 AM EDT 10/31/2024 11:25 AM EDT us Generic External Data Provider LAB BLOOD ORDERAB LES Final Result Performing Organization Address [facility]/ZIP Co de Phone Number [facility] [address] [place] [phone] * Hepatitis B surface antigen, EIA (10/31/2024 10:27 AM EDT) Hepatitis B Surface Ag Negative Negative [facility] 10/31/2024 10:2 7 AM EDT 10/31/2024 11:25 AM EDT us Generic External Data Provider LAB BLOOD ORDERAB LES Final Result Performing Organization Address [facility] Co de Phone Number [facility] [address] [place] [phone] * Hepatitis B Core Antibody, Total (10/31/2024 10:27 AM EDT) Hepatitis B Core Antibody Nonreactive Nonreactive [facility] 10/31/2024 10:2 7 AM EDT 10/31/2024 11:25 AM EDT us Generic External Data Provider LAB BLOOD ORDERAB LES Final Result Performing Organization Address [facility]/ZIP Co de Phone Number [facility] [address] [place] [phone] * Immunofixation, Serum (10/31/2024 10:27 AM EDT) IMMUNOGLOBULIN G 885 600 - 1540 mg/dL [facility] IMMUNOGLOBULIN A 199 70 - 320 mg/dL [facility] Immunoglobulin M 74 50 - 300 mg/dL [facility] Comment:THIS TEST WAS PERFOR MED AT:[facility] [address] [phone] CHAND MD Immunofixation Result SEE NOTE [facility] Comment:Normal pattern. No m onoclonal proteins detected. 10/31/2024 10:2 7 AM EDT 10/31/2024 11:25 AM EDT Generic External Data Provider LAB BLOOD ORDERAB LES Final Result Performing Organization Address [facility]/ZIP Co de Phone Number [facility] [address] [place] [phone] * Complement Component C3c (10/31/2024 10:27 AM EDT) Complement C3 171 83 - 193 mg/dL [facility] Comment:THIS TEST WAS PERFOR MED AT:[facility] [address] [phone] CHAND MD 10/31/2024 10:2 7 AM EDT 10/31/2024 11:21 AM EDT us Generic External Data Provider LAB BLOOD ORDERAB LES Final Result Performing Organization Address [facility]/ZIP Co de Phone Number [facility] [address] [place] [phone] * Complement Component C4c (10/31/2024 10:27 AM EDT) Complement C4 37 15 - 57 mg/dL [facility] Comment:THIS TEST WAS PERFOR MED AT:[facility] [address] [phone] CHAND MD 10/31/2024 10:2 7 AM EDT 10/31/2024 11:21 AM EDT us Generic External Data Provider LAB BLOOD ORDERAB LES Final Result Performing Organization Address [facility]/ZIP Co de Phone Number [facility] [address] [place] [phone] * C-reactive Protein (10/31/2024 10:27 AM EDT) C Reactive Protein <0.10 < or = 0.50 mg/dL [facility] Blood Venous blood specimen / Unknown 10/31/2024 10:27 AM EDT 10/31/2024 11:25 AM EDT Ludwin Sylvester MD LAB BLOOD ORDERABLES Final Resul t Performing Organization Address [facility] Co de Phone Number [facility] [address] [place] [phone] * (ABNORMAL) Hemoglobin A1c (10/31/2024 10:27 AM EDT) Hemoglobin A1c 7.7(H) <6.0 % [facility] Comment:Hemoglobin A1C Refer ence Range Adults: 4.8 - 6.0 % Non diabetic: < 6.0 % Goal: < 7.0 %Additional Action Suggested: > 8.0 %Note: Hemoglobin A1c results are invalid for patients with abnormal amounts of HbF. Blood transfusions may impact the HbA1c concentration in the patient sample. Estimated Average Glucose 174 mg/dL [facility] Comment:eAG = Estimated ave rage glucose which is %A1C expressed asaverage glucose, using the formula of the P1Q-GdxethpElngbtg Glucose study (ADAG), Diabetes Care, Vol.31,#8,Oct. 2007 10/31/2024 10:2 7 AM EDT 10/31/2024 11:25 AM EDT us Generic External Data Provider LAB BLOOD ORDERAB LES Final Result Performing Organization Address [facility] Co de Phone Number [facility] [address] [place] [phone] * Lipid Panel, Standard (10/31/2024 10:27 AM EDT) Triglycerides 126 <150 mg/dL [facility] Comment:Desirable Triglyceri de: less than 150 mg/dLBorderline High Triglyceride 150-199 mg/dLHigh Triglyceride: 200-499 mg/dLVery High Triglyceride: greater than or equal to 5OO mg/dL Cholesterol 139 <200 mg/dL [facility] Comment:Desirable Cholestero l: less than 200 mg/dLBorderline High Cholesterol: 200-239 mg/dLHigh Cholesterol: greater than 239 mg/dL LDL Cholesterol Calculated 71 <100 mg/dL [facility] Comment:Desirable LDL: less than 100 mg/dLNear Optimal/Above Optimal LDL: 110- 129 mg/dLBorderline High LDL: 130-159 mg/dLHigh LDL: 160-189 mg/dLVery High LDL: greater than or equal to 190 mg/dL HDL Cholesterol 43 >40 mg/dL [facility] Comment:Desirable HDL: great er than 40 mg/dL Note: This HDL assay may give artificially low results in patients with liver disease. 10/31/2024 10:2 7 AM EDT 10/31/2024 11:25 AM EDT Generic External Data Provider LAB BLOOD ORDERAB LES Final Result Performing Organization Address [facility] Co de Phone Number [facility] [address] [place] [phone] * (ABNORMAL) Comprehensive Metabolic Panel (10/31/2024 10:27 AM EDT) Only the most recent of2 resultswithin the time period is included. Sodium 143 135 - 145 mmol/L [facility] Potassium 4.2 3.3 - 5.1 mmol/L [facility] Chloride 106 96 - 108 mmol/L [facility] Carbon Dioxide 29 22 - 29 mmol/L [facility] Anion Gap 12 12 - 20 [facility] Urea Nitrogen (BUN) 26(H) 9 - 16 mg/dL [facility] Creatinine, Serum 1.38 0.5 - 1.4 mg/dL [facility] Estimated Glomerular Filt Rate 38 [facility] Comment:Chronic Kidney Disea se: Estimated GFR < 60 mL/min/[id number] Kidney Disease: Estimated GFR < 15 mL/min/1.73m2 Glucose 141(H) 60 - 115 mg/dL [facility] Calcium 10.0 8.4 - 10.2 mg/dL [facility] Bilirubin, Total 0.3 0.0 - 1.0 mg/dL [facility] Aspartate Amino Transferase 29 5 - 31 U/L [facility] Alanine Aminotransferase 17 0 - 31 U/L [facility] Total Protein 7.1 6.5 - 8.0 g/dL [facility] Albumin Level 4.4 3.5 - 5.0 g/dL [facility] Alkaline Phosphatase 57 39 - 117 U/L [facility] 10/31/2024 10:2 7 AM EDT 10/31/2024 11:25 AM EDT us Generic External Data Provider LAB BLOOD ORDERAB LES Final Result Performing Organization Address City/State/[facility] Co de Phone Number [facility] [address] [place] [phone] * XR Foot 3+ Views Left (10/31/2024 10:14 AM EDT) Anatomical Region Laterality Modality Lower Extremities, Foot Left Radiogra phic Imaging 10/31/2024 10:1 4 AM EDT Narrative 10/31/2024 10:28 AM EDT [facility] [address] [place] [address] XRay Report Signed Patient: Jayne Lane MR#: [id number] : 1955 Acct:[id number] Age/Sex: 69 / F ADM Date: 10/31/24 Loc: HO.CX Attending Dr: Ruchi Osman MD Ordering Physician: Ruchi Ayala MD Date of Service: 10/31/24 Procedure(s): XR foot LT min 3V Accession Number(s): [id number] cc: Ruchi Ayala MD; James Trimble MD [...] Carlos Macias MD 10/31/2024 10:25 AM EDT Dictated By: Carlos Macias MD Signed By: <Electronically signed by Carlos Macias MD in OV> 10/31/24 1025 DD/ 1014 TD/TT: 10/31/24 1018 Small Animal Veterinarian: Procedure Note Donotuseinterpreter, Image - 10/31/[address] [address] XRay Report Signed Patient: Jayne LaneMR#: [id number] : 1955cct:[id number] Age/Sex: 69 / FADM Date: 10/31/24 Loc: HO.CX Attending Dr: Ruchi Osman MD Ordering Physician: Ruchi Ayala MD Date of Service: 10/31/24 Procedure(s): XR foot LT min 3V Accession Number(s): [id number] cc: Ruchi Ayala MD; James Trimble MD [...] Carlos Macias MD 10/31/2024 10:25 AM EDT Dictated By: Carlos Macias MD Signed By: <Electronically signed by Carlos Macias MD in OV> 10/31/24 1025 DD/ 1014 TD/TT: 10/31/24 1018 Small Animal Veterinarian: Result [facility] Ruchi Osman MD IMG XR PROCEDURES Fin al Result * (ABNORMAL) POCT HGB A1C (09/03/2024 11:40 AM EDT) Pathologist [facility] Hemoglobin A1C 8.2(A) 4.0 - 6.0 % QC Media Lot # [id number] Lot# Expiration Date ,678,060 Blood 09/03/2024 11:4 0 AM EDT James Ashraf MD POINT OF CARE TEST EN TER/EDIT ORDERABLES Final Result * (ABNORMAL) POCT Glucose (09/03/2024 11:38 AM EDT) Glucose Blood, POC 266(A) 60 - 200 mg/dL QC Media Lot # [id number] Lot# Expiration Date Blood Capillary blood specimen / Unknown 09/03/2024 11:38 AM EDT us James Ashraf MD POINT OF CARE TEST EN TER/EDIT ORDERABLES Final Result * (ABNORMAL) Urinalysis, Complete, with Reflex to Culture (08/25/2024 11:00 PM EDT) [facility] Color Urine Red(A) [facility] Appearance Urine Cloudy [facility] PH 6.0 5.0 - 9.0 [facility] Glucose Urine UA Negative Negative mg/dL [facility] Urine Blood Large (3+)(A) Negative [facility] Specific Guild - Urine 1.015 1.005 - 1.025 [facility] Urine Protein 100 (2+)(A) Neg-Trace mg/dL [facility] Urine Ketones Trace Negative mg/dL [facility] Nitrite Urine Negative Negative [facility] Leukocyte Esterase Urine Large (3+)(A) Negative [facility] RBC Urine >20(A) 0 - 2 /HPF [facility] Urine WBC >50(A) 0 - 5 /HPF [facility] Urine Squamous Epithelial Cell 0-2 0 - 2 /HPF [facility] Urine Bacteria 1+ None Seen [facility] Hyaline Casts, Urine 0-2 0 - 2 /LPF [facility] 08/25/2024 11:0 0 PM EDT 08/25/2024 11:05 PM EDT Narrative [facility] - 08/25/2024 11:28 PM EDT [id number], Clean Catch us Generic External Data Provider LAB URINE ORDERAB LES Final Result [facility] [address] [place] [phone] * (ABNORMAL) CBC (08/25/2024 11:00 PM EDT) White Blood Count 7.6 4.8 - 10.8 X10*3/uL [facility] Red Blood Count 3.56(L) 4.20 - 5.50 X10*6/uL [facility] Hemoglobin 11.0(L) 12.0 - 16.0 g/dl [facility] Hematocrit 33.6(L) 37.0 - 47.0 % [facility] Mean Corpuscular Volume 94.4 80.0 - 98.0 fL [facility] Mean Corpuscular Hemoglobin 30.9 27.0 - 33.0 pg [facility] Mean Corpuscular HGB Conc 32.7 31.0 - 35.0 g/dl [facility] Red Cell Distribution Width 13.2 11.0 - 16.0 % [facility] Platelet Count 197 160 - 400 X10*3/uL [facility] Mean Platelet Volume 10.2 9.4 - 12.3 fL [facility] NRBC Pct Auto 0.0 0.0 - 0.2 /100WBC [facility] NRBC Abs Auto 0.000 0.0 - 0.012 X10*3/uL [facility] 08/25/2024 11:0 0 PM EDT 08/25/2024 11:05 PM EDT us Generic External Data Provider LAB BLOOD ORDERAB LES Final Result [facility] [address] [place] [phone] * Culture, Urine, Routine (08/25/2024 11:00 PM EDT) Urine Urine specimen obtained by clean catch procedure / Unknown 08/25/2024 11:00 PM EDT 08/25/2024 11:34 PM EDT Comment:UACC Narrative [facility] - 08/28/2024 7:43 AM EDT Escherichia coli Quant 50,000 to 100,000 cfu/mL Corynebacterium species Quant 50,000 to 100,000 cfu/mL Escherichia coli: Ampicillin >=32(R) Escherichia coli: Cefazolin (Urine) 4(S) Escherichia coli: Cefepime <=0.12(S) Escherichia coli: Ceftriaxone <=0.25(S) Escherichia coli: Ciprofloxacin <=0.06(S) Escherichia coli: Gentamicin >=16(R) Escherichia coli: Nitrofurantoin <=16(S) Escherichia coli: Trimethoprim/Sulfamethoxazole >=320(R) Specimen Source: Urine clean catch Generic External Data Provider LAB MICROBIOLOGY - GENERAL ORDERABLES Final Result [facility] [address] [place] [phone] * Referral to Ophthalmology (06/20/2024) Ludwin Sylvester MD OUTPATIENT REFERRAL ORDERABLES F inal Result * Pap Smear (06/22/2023 3:20 PM EDT) 06/22/2023 3:20 PM EDT 06/27/2023 11:15 AM EDT Narrative [facility] - 07/11/2023 2:16 PM EDT ----- ------- Name: Jayne Lane Age/Sex: 68/F : 1955 Unit#: [id number] Attend Dr: Opal Carranza CNM Re06/22/23 Status: DEP REF Location: [facility] Disch: ----- ------- SPEC : [id number] RECD: 06/27/23 STATUS: DERRELL CHACKO NUM: [id number] CYRUS: 06/22/23-[address] [facility] [address]: Opal Carranza [facility] ENTERED: 06/27/23-1232 SP TYPE: Pap Smr OTHR DR: James Trimble MD ORDERED: Pap Smear, [...] 59, 66, 68) HPV testing performed by [employer], [place], [place]. See reference laboratory portion of the EMR for entire report. Clinical Information LMP: Menopause Previous PAP test: 02/01, Abnormal Other surgery:03/30 colpo DELPHINE I Other history: 2015 +HPV ACUS, 07/29 +HPV Material Received ThinPrep-Cervical Copies To: James Trimble MD [address] [place] [address] Opal Carranza [address] [address] ----- ------- Signed (signature on file) Ev Ilana 07/11/23 1416 ----- ------- END OF REPORT us Generic External Data Provider LAB CYTOLOGY ORDE RABMONICA Final Result [facility] [address] [place] [phone] * Colonoscopy (07/11/2022 3:53 PM EDT) Pathologist [facility] Colonoscopy Normal Normal Comment:Tubular adenoma Historical Provider HEALTH MAINTENANCE Final Result * HPV E6/E7 RFLX DANIAL 16 18/45 (01/17/2022 4:22 PM EST) [facility] HPV 16 RNA TNP CONVERTED [employer] HPV 18/45 RNA TNP CONVER [employer] HPV E6 E7 ADD TNP CONVER [employer] HPV mRNA E6/E7 rflx Not Detected Not Detected CONVERTED [employer] Comment: Methodology: Magnetic Tape Typewriter Operator-Mediated Amplification This assay detects E6/E7 viral messenger RNA (mRNA) from 14 high-risk HPV types (16,18,31,33,35,39,45,51,52,56,58,59,66,68). Cervical sources are required for HPV testing. If a vaginal source from a patient who has had a total hysterectomy with removal of cervix was submitted, please contact the testing laboratory for alternative testing options. For additional information, please refer to http://education.[employer]/faq/TBR966y4 (This link if provided for information/ educational purposes only.) THIS TEST WAS PERFORMED AT: [facility] [address] [place] [address],[place] [address] KEVEN CHAND MD 01/17/2022 4:22 PM EST Opal Carranza HISTORICAL/NON ORDERABLE LABS Fi nal Result CONVERTED LEGACY LABS from Last 3 Months or Most Recently Relevant to Health Maintenance Insurance [facility] OPT[employer] (HMO D-SNP) Care Teams Multimedia Assistant Relationship Specialty Start Date End Date James Flores MD [address] [place] [address] PCP - General Internal Medicine 02/04/14
--- OUTSIDE RECORDS SUMMARY | 2024-11-20 12:18 | XMS_ITS | Encounter Summary ---
Author Organization [employer] Address [address] [facility] 7t [place] [address] Care Team Providers Care Senior Technical Project Manager Name Role Phone James Flores MD Primary Care Provide r Reason for Visit * Reason Comments Med Refill Encounter Details Date Type Department Care Team (Late st Contact Info) Description 08/27/2023 Refill [facility] [address] [place] [address] Name, MD Loki [address] [place] [address] Gastroesophageal reflux disease without esophagitis Social History [...] t he electric, gas, oil or water [employer] threatened to shut off services in your [...] Description 12/10/2024 9:15 AM EDT Office Visit [facility] [address] [place] [address] James Flores MD [address] [place] [address] documented as of this encounter Visit Diagnoses Diagnosis Gastroesophageal reflux disease without esophagitis Esophageal reflux documented in this encounter Care Teams Senior Technical Project Manager Relationship Specialty Start Date End Date James Flores MD [address] [place] [phone] PCP - General Internal Medicine 02/04/14 documented as of this encounter
--- OUTSIDE RECORDS SUMMARY | 2024-11-20 12:18 | XMS_ITS | Encounter Summary ---
Author Organization [employer] [facility] Address [address] [facility] [address]t [place] [address] Care Team Providers Care Cloth Colorer Name Role Phone James Flores MD Primary Care Provide r Encounter Details Date Type Department Care Team (Late st Contact Info) Description 05/11/[address] [facility] [address] [place] [address] [phone] James Flores MD [address] [place] [address] [phone] Social History Tobacco Use Types Packs/Day Years [...] 12/10/2024 9:15 AM EDT Office Visit [facility] [address] [place] [address] [phone] James Flores MD [address] [place] [address] [phone] documented as of this encounter Visit Diagnoses Not on filedocumented in this encounter Care Teams Cloth Colorer Relationship Specialty Start Date End Date James Flores MD [address] [place] [address] PCP - General Internal Medicine 02/04/14 documented as of this encounter
--- OUTSIDE RECORDS SUMMARY | 2024-11-20 12:18 | XMS_ITS | Encounter Summary ---
Author Organization [employer] Address [address] [facility] 7t [place] [address] Care Team Providers Care Developer Trading Systems Name Role Phone James lFores MD Primary Care Provide r Encounter Details Date Type Department Care Team ([facility] Contact Info) Description 03/17/2022 Orders Only [facility] [address] [place], [place] [phone] Jaja Hammond LPN Social History Tobacco Use [...] Upcoming Encounters Date Type Department Care Team ([facility] Contact Info) Description 12/10/2024 9:15 AM EDT Office Visit [facility] [address] [place], [place] [phone] James Flores MD [address] [place], [place] [phone] documented as of this encounter Visit Diagnoses Not on filedocumented in this encounter Care Teams Developer Trading Systems Relationship Specialty Start Date End Date James Flores MD [address] [place] [phone] PCP - General Internal Medicine 02/04/14 documented as of this encounter
--- OUTSIDE RECORDS SUMMARY | 2024-11-20 12:18 | XMS_ITS | Encounter Summary ---
Author Organization [employer] Address [address] [facility] [address] [place] [address] Care Team Providers Care Painting Supervisor Name Role Phone James Flores MD Primary Care Provide r Encounter Details Date Type Department Care Team ([facility] st Contact Info) Description 02/21/2022 Abstract [facility] [address] [place] [address] James Flores MD [address] [place] [address] Social History Tobacco Use Types Packs/Day Years [...] Description 12/10/2024 9:15 AM EDT Office Visit [facility] [address] [place] [address] James Flores MD [address] [place] [address] documented as of this encounter Procedures Procedure [...] on filedocumented in this encounter Care Teams Painting Supervisor Relationship Specialty Start Date End Date James Flores MD [address] [place] [phone] PCP - General Internal Medicine 02/04/14 documented as of this encounter
== END 2024-11-20 10:36 | disposition home or self-care (01) ==
LOC: HO.HCS 10:07
PROVIDERS: PCP Internal Medicine; Visit Provider Internal Medicine
DX: I25.10 Atherosclerotic heart disease of native coronary artery without angina pectoris (principal); I35.0 Nonrheumatic aortic (valve) stenosis; I10 Essential (primary) hypertension; E11.65 Type 2 diabetes mellitus with hyperglycemia; Z79.4 Long term (current) use of insulin
CPT/HCPCS: 99214; G2211

== ENCOUNTER 2024-11-20 10:06 | Outpatient (REF) | payer OTHER, SELFPAY ==
[2024-11-20 13:14] LABS: Anion Gap 12 (12-20); Blood Urea Nitrogen 37 mg/dL (9-16); Calcium 10.5 mg/dL (8.4-10.2); Carbon Dioxide 31 mmol/L (22-29); Chloride 107 mmol/L (96-108); Estimated Glomerular Filt Rate 33; Potassium 5.2 mmol/L (3.3-5.1); Sodium 145 mmol/L (135-145)
== END 2024-11-20 10:07 | disposition home or self-care (01) ==
LOC: HO.LAB 10:06
PROVIDERS: Absent Provider Internal Medicine Nephrology; PCP Internal Medicine; Visit Provider Internal Medicine
DX: I12.9 Hypertensive chronic kidney disease with stage 1 through stage 4 chronic kidney disease, or unspecified chronic kidney disease (principal); N18.31 Chronic kidney disease, stage 3a; E11.21 Type 2 diabetes mellitus with diabetic nephropathy; E11.65 Type 2 diabetes mellitus with hyperglycemia; I25.10 Atherosclerotic heart disease of native coronary artery without angina pectoris; I35.0 Nonrheumatic aortic (valve) stenosis; R07.2 Precordial pain; Z79.4 Long term (current) use of insulin
CPT/HCPCS: 36415; 80051; 82310; 82565; 84520; 99212

== ENCOUNTER 2024-11-27 10:12 | Outpatient (AMB) | payer OTHER, SELFPAY ==
--- NOTE | 2024-11-27 10:19 | HO.NEPHOV ---
Vital Signs 11/27/24 10:22 Height 5 ft 1 in Weight 167 lb 2 oz BMI 31.6 BP 110/60 Blood Pressure Location Rt brachial Position Sitting Pulse 77 Pulse Source Pulse Oximeter Pulse Oximetry (%) 98 Oxygen Delivery Method Room Air Intake Visit Reasons: 6 weeks fu-LVM Space And Storage Clerk Required: Yes Space And Storage Clerk Language: Winch Stripper Services: Space And Storage Clerk Offered & Declined ([facility] Space And Storage Clerk services refused. ) Accompanied by: Daughter Allergies morphine (Morphine) Allergy (Intermediate, Verified 11/27/24 10:21) TACHYCARDIA, ANXIETY oxycodone (Percocet) Allergy (Intermediate, Verified 11/27/24 10:21) Palpitations acetaminophen (From Percocet) Allergy (Verified 11/27/24 10:21) Palpitations prednisone (PREDNISONE) Adverse Reaction (Intermediate, Verified 11/27/24 10:21) ANXIETY HPI Comments Details: I had the privilege of seeing Jayne in follow up for CKD and hypertension. She is 69 years of age who has longstanding diabetes mellitus with neuropathy, hypertension who also had CAD needing PCI and CVA. She is known to have aortic stenosis. She denies any chest pain, shortness of breath or pedal edema. Her hemoglobin A1c has been on the high side. Her BMI is high. She denies any hepatitis, drug use, excessive nonsteroidal anti-inflammatory medication intake, renal calculus, new bone or back pain. Her recent serum creatinine has been 1.57 [facility] Medical History Primary osteoarthritis of left knee Acute pain of both knees Tinea corporis Tubular adenoma Non-rheumatic aortic stenosis Hemorrhoids Diverticulosis of colon History of CVA (cerebrovascular accident) Hyperkalemia Cobalamin deficiency CKD (chronic kidney disease) Iron deficiency anemia Temporal arteritis Idiopathic peripheral neuropathy Arthritis ELLIE (obstructive sleep apnea) Obesity Abnormal Pap smear of cervix Osteoporosis Goiter Hyperparathyroidism Hypercalcemia Vitamin D deficiency HLD (hyperlipidemia) HTN (hypertension) T2DM (type 2 diabetes mellitus) On beta anurag at home Chronic constipation Diabetes Anemia GERD (gastroesophageal reflux disease) Sleep apnea Asthma CAD (coronary artery disease) Angina pectoris HTN (hypertension) Surgical History Hx of heart artery stent Hx of cholecystectomy History of esophagogastroduodenoscopy (EGD) H/O colonoscopy Family History Father Liver problem Mother Diabetes Obesity Social History Household Members Other:: With Housing: House Alcohol intake: never Patient Tobacco Use Status: Never used Tobacco Current occupational status: disabled Sexual orientation: Straight/Heterosexual Gender identity: Female Review of Systems Const All systems reviewed & are unremarkable except as noted in HPI and below Physical Exam Vital Signs: Last Vital Signs Pulse 77 11/27/24 10:22 BP 110/60 11/27/24 10:22 Pulse Ox 98 11/27/24 10:22 Oxygen Delivery Method Room Air 11/27/24 10:22 BMI result Body Mass Index 31.6 Const General: comfortable and no acute distress Orientation/consciousness: patient oriented x3 HEENT Head: Yes normocephalic Mouth: Normal oral and palatal mucosa present Eyes EOM: EOMs intact bilaterally Neck Neck: Yes supple Resp Auscultation: clear to auscultation bilaterally Cardio Jugular venous distension: no JVD Rate: regular rate GI Palpation (GI): Soft to palpation Auscultation: normal bowel sounds General: Yes no CVA tenderness Back/Spine/Pelvis Back: no CVA tenderness Skin General skin exam: no rashes or lesions noted Neuro General: patient oriented x3 and moves all extremities Extrem General: Yes no pedal edema Results Reviewed Nephrology Results: Sodium, (135-145) 145 mmol/L 11/20/24 Potassium, (3.3-5.1) 5.2 mmol/L H Δ 11/20/24 Chloride, (96-108) 107 mmol/L 11/20/24 Carbon Dioxide, (22-29) 31 mmol/L H 11/20/24 BUN, (9-16) 37 mg/dL H 11/20/24 Creatinine, (0.5-1.4) 1.57 mg/dL H 11/20/24 Calcium, (8.4-10.2) 10.5 mg/dL H 11/20/24 Urine Creatinine 133.81 mg/dL 10/31/24 Protein/Creatinin Ratio, (<0.2) 0.43 H 10/31/24 Renal US 06/16/23 Assessment & Plan Assessment & Plan (1) HTN (hypertension): Code(s): I10 - Essential (primary) hypertension Category: Medical Qualifiers: Hypertension type: unspecified Qualified Code(s): I10 - Essential (primary) hypertension (2) CKD stage 3a, GFR 45-59 ml/min: Code(s): N18.31 - Chronic kidney disease, stage 3a Category: Medical (3) Diabetic nephropathy: Code(s): E11.21 - Type 2 diabetes mellitus with diabetic nephropathy Category: Medical Qualifiers: Diabetes mellitus type: type 2 Qualified Code(s): E11.21 - Type 2 diabetes mellitus with diabetic nephropathy (4) Hypercalcemia: Code(s): E83.52 - Hypercalcemia Category: Medical Plan Jayne has CKD 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 She has high BMI. She has proteinuria. Her blood sugar needs to be better controlled. Her blood pressure needs to be maintained at less than 130/80 mmHg. she may need a renal biopsy. I plan to add SGLT2 inhibitor and maximize the dose of it along with introduction of ROMI inhibitor. She should avoid nonsteroidal anti-inflammatories and maintain good hydration. She is on Ozempic. She needs to lose more weight. Further management is pending evolving data. Answered all questions and follow-up was given. Orders: Orders Calcium 3 Weeks E11.21 - Type 2 diabetes mellitus with diabetic nephropathy, E83.52 - Hypercalcemia, I10 - Essential (primary) hypertension, N18.31 - Chronic kidney disease, stage 3a Parathyroid Hormone Intact 3 Weeks E11.21 - Type 2 diabetes mellitus with diabetic nephropathy, E83.52 - Hypercalcemia, I10 - Essential (primary) hypertension, N18.31 - Chronic kidney disease, stage 3a Vitamin D 25-OH Total 3 Weeks E11.21 - Type 2 diabetes mellitus with diabetic nephropathy, E83.52 - Hypercalcemia, I10 - Essential (primary) hypertension, N18.31 - Chronic kidney disease, stage 3a Creatinine 3 Weeks E11.21 - Type 2 diabetes mellitus with diabetic nephropathy, E83.52 - Hypercalcemia, I10 - Essential (primary) hypertension, N18.31 - Chronic kidney disease, stage 3a Blood Urea Nitrogen 3 Weeks E11.21 - Type 2 diabetes mellitus with diabetic nephropathy, E83.52 - Hypercalcemia, I10 - Essential (primary) hypertension, N18.31 - Chronic kidney disease, stage 3a Electrolytes 3 Weeks E11.21 - Type 2 diabetes mellitus with diabetic nephropathy, E83.52 - Hypercalcemia, I10 - Essential (primary) hypertension, N18.31 - Chronic kidney disease, stage 3a Immunofixation, Random Urine 3 Weeks E11.21 - Type 2 diabetes mellitus with diabetic nephropathy, E83.52 - Hypercalcemia, I10 - Essential (primary) hypertension, N18.31 - Chronic kidney disease, stage 3a Immunofixation Pnl, Serum 3 Weeks E11.21 - Type 2 diabetes mellitus with diabetic nephropathy, E83.52 - Hypercalcemia, I10 - Essential (primary) hypertension, N18.31 - Chronic kidney disease, stage 3a Coding Level of Care Code Est Pt Level 4 (94406) Diagnoses Hypertension, unspecified type I10 Hypertension type: unspecified CKD stage 3a, GFR 45-59 ml/min N18.31 Diabetic nephropathy associated with type 2 diabetes mellitus E11. Diabetes mellitus type: type 2 Hypercalcemia E83.52
[2024-11-27 10:22] VITALS: BP 110/60; PULSE 77; O2SAT 98; BMI 31.6
--- OUTSIDE RECORDS SUMMARY | 2024-11-27 12:25 | XMS_ITS ---
Author Name Mr. Arlen Márquez Address [address] [place] [address] Phone [phone] [facility] Care Team Providers Care Industrial Servicer Name Role Phone Micah Judge Unavailable [phone] Reason for Referral Not Available Allergies, adverse [...] 2021-11-04 No Data Available [id number] Miscellaneous TEST BLOOD SUGAR THREE OR FOUR [...] of Service Diagnosis/Co mplaint No Data Available [facility] [place]12[place]2022 Type 2 diabetes mellitus wit h diabetic chronic kidney diseaseChronic kidney disease, stage 3bLong term (current) use of insulinMorbid (severe) obesity due to excess caloriesBody mass index (BMI) 40.0-44.9, adultOther specified health statusConstipation, unspecifiedProblems related to health literacyPrsnl hx of TIA (TIA), and cereb infrc w/o resid deficits No Data Available [facility] [place] 07[place]12/2022 No Data Available [facility] [place]/12/2022 No Data Available [facility] [place]12[place]2022 No Data Available [facility] [place] 07[place]12/2022 No Data Available [facility] [place] 07/12/2022 No Data Available [facility] [place] 07/22/2022 Morbid (severe) obesity due to excess caloriesBody mass index (BMI) 40.0-44.9, adultType 2 diabetes mellitus with diabetic chronic kidney diseaseChronic kidney disease, stage 3bPrsnl hx of TIA (TIA), and cereb infrc w/o resid deficitsOther specified health status No Data Available [facility] [place] 07/22/2022 Vital Signs Date of Collection Vitals 2022-07-12 11:38:39 Height - 147.32 cmWe ight - 87.09 kgBody Mass Index (BMI) - 40.13 kg/m2 Social History Sex Female History of Procedures Procedures Service Procedure code Service date Servicing provider Phone# No Data Available [id number] 2022-07-12 No Data Available No Data Available [...] le No Data Available No Data Available [id number] 2022-07-22 No Data Available No Data Available [...]
--- OUTSIDE RECORDS SUMMARY | 2024-11-27 12:25 | XMS_ITS | Encounter Summary ---
Author Organization [facility] Address [address] [place] [address] Phone Care Team Providers Care Counter Professional Name Role Phone James Trimble MD Primary Care Provide r Encounter Details Date Type Department Care Team (Late st Contact Info) Description 01/25/2021 Procedure Pass [facility], Ct Scan - [address] [address] Social History Tobacco Use Types Packs/Day Years [...] 01/25/2021 12:53 PM Corinne Rodriguez, LISA * [place] Suicide Severity Rating Scale (Screener/Recent Self-Report) Question [...] documented as of this encounter Care Teams Counter Professional Relationship Specialty Start Date End Date James Trimble MD [address] [place] [address] [place] [phone] PCP - General 03/16/17 documented as of this encounter Additional Source Comments The information contained in this document represents components of the legal health record. It is not the complete legal health record.[facility]
--- OUTSIDE RECORDS SUMMARY | 2024-11-27 12:25 | XMS_ITS | Encounter Summary ---
Author Organization [employer] Address [address] [facility] 7t [place] [address] Care Team Providers Care Cultured Marble Products Maker Name Role Phone James Flores MD Primary Care Provide r Reason for Visit * Reason Onset Date Comments Call Back Request 08/07/2024 Appointment Request 08/07/2024 Encounter Details Date Type Department Care Team ([facility] st Contact Info) Description 08/07/2024 Telephone [facility] MEDICINE [address] [place] [address] James Flores MD 230 [place] [address] Call Back Request; Appointment Request Social History [...] request for telehealth visit Please return call [phone] documented in this encounter Plan of Treatment Upcoming Encounters Date Type Department Care Team (Late st Contact Info) Description 12/10/2024 9:15 AM EDT Office Visit [facility] MEDICINE [address] [place] [address] James Flores MD [address] [place] [address] documented as of this encounter Visit Diagnoses Not on filedocumented in this encounter Additional Health Concerns Assessment Noted Time PHQ-9 Depression Total Score: 0 01/30/20 10:37 AM EST documented as of this encounter Care Teams Cultured Marble Products Maker Relationship Specialty Start Date End Date James Flores MD [address] [place] [address] PCP - General Internal Medicine 02/04/14 documented as of this encounter
--- OUTSIDE RECORDS SUMMARY | 2024-11-27 12:25 | XMS_ITS | Clinical Summary ---
Author Organization [facility] Address [address] [place] [address] Phone Care Team Providers Care Returns Supervisor Name Role Phone James Trimble MD [...] Active ferrous sulfate 325 mg (65 mg flandreau iron) tablet Take 325 mg by mouth [...] nebulizer at home does not see a emt i/85. Considering home neb. ? Having difficulty using [...] (12/21/2020 6:13 AM EDT) HDL 49 mg/dL [facility] Comment: Interpretation <40 mg/dL: Low HDL cholesterol (major risk factor for CHD) Greater than or equal to 60 mg/dL: High HDL cholesterol ( negative risk factor for CHD) HDL - cholesterol is affected by a number of factors, e.g. smoking, excerise, hormones, sex and age. CHOLESTEROL 160 0 - 240 mg/dL [facility] TRIGLYCERIDES 109 30 - 160 mg/dL [facility] LDL 89 50 - 129 mg/dL [facility] Comment: LDL levels in terms of risk for coronary heart disease: <100 mg/dL: Optimal 100-129 mg/dL: Near or above optimal 130-159 mg/dL: Borderline high 160-189 mg/dL: High >190 mg/dL: Very High CARDIAC RISK RATIO 3.3 3.3 - 4.4 [facility] Blood 12/21/2020 6:13 AM EDT 12/21/2020 6:36 AM EDT us Avni Bernard MD LAB BLOOD ORDERABLES Fin al Result [facility] [address] [place] [address] from Last 3 Months or Most Recently Relevant to Health Maintenance Insurance MEDICARE REPLACEMENT [place] [id number] MEDICARE REPLACEMENT MEDICARE REPLACEMENT MEDICARE REPLACEMENT MEDICARE REPLACEMENT MEDICARE REPLACEMENT Advance Directives For more information, please contact: [phone] (9AM - 5PM [facility], Monday-Monday) * Full Code (Latest Code Status on File) Date Activated Date Inactivated Comments 06/26/2021 2:17 PM Question Answer Comments Code Status Confirmed With: Patient * Full Code Date Activated Date Inactivated Comments 12/20/2020 7:48 PM 06/26/2021 2:17 PM Question Answer Comments Code Status Confirmed With: Patient Care Teams Returns Supervisor Relationship Specialty Start Date End Date James Trimble MD [address] [place] [address] [address] [place] [address] [email or web address] PCP - General 03/16/17 Additional Source Comments The information contained in this document represents components of the legal health record. It is not the complete legal health record.[facility]
--- OUTSIDE RECORDS SUMMARY | 2024-11-27 12:25 | XMS_ITS | Encounter Summary ---
Author Organization [employer] Address [address] [facility] 7t [place] [address] Care Team Providers Care Layer Out Plate Glass Name Role Phone James Flores MD Primary Care Provide r Reason for Visit * Reason Comments Med Refill Encounter Details Date Type Department Care Team ([facility] st Contact Info) Description 03/12/2023 Refill [facility]INE [address] [place] [address] James Flores MD 230 [place] [address] Chronic anemia Social History Tobacco Use Types [...] t he electric, gas, oil or water [employer] threatened to shut off services in your [...] Description 12/10/2024 9:15 AM EDT Office Visit [facility] [address] [place] [address] James Flores MD [address] [place] [address] documented as of this encounter Visit Diagnoses Diagnosis Chronic anemia Unspecified anemia documented in this encounter Care Teams Layer Out Plate Glass Relationship Specialty Start Date End Date James Flores MD [address] [place] [address] PCP - General Internal Medicine 02/04/14 documented as of this encounter
--- OUTSIDE RECORDS SUMMARY | 2024-11-27 12:25 | XMS_ITS | Encounter Summary ---
Author Organization [employer] Address [address] [facility] 7t [place] [address] Care Team Providers Care Principal Examiner Name Role Phone James Flores MD Primary Care Provide r Encounter Details Date Type Department Care Team (Late st Contact Info) Description 06/14/2022 Orders Only [facility] MED & PEDS [address] [place], [place] [phone] Jaja Hammond LPN Social History Tobacco Use [...] Visit [facility] MEDICINE [address] [place], [place] [phone] James Flores MD [address] [place] [address] documented as of this encounter Visit Diagnoses Not on filedocumented in this encounter Care Teams Principal Examiner Relationship Specialty Start Date End Date James Flores MD [address] [place] [address] PCP - General Internal Medicine 02/04/14 documented as of this encounter
--- OUTSIDE RECORDS SUMMARY | 2024-11-27 12:25 | XMS_ITS | Patient Health Record ---
Author Organization [facility] Address [address] [place] [address] Care Team Providers Care Assembler Watch Train Name Role Phone Rudy Ashraf MD, James Primary Care Provide r Unavailable Moris Duron Jr Unavailable Reason For Referral No Information Plan Of Treatment No Information Insurance Providers Payer Name Payer Address Payer Phone Subscriber Number Group Number Insured Name Patient Relationship to Insured Coverage Start Date Coverage End Date MEDICARE OF [place] [address] [place] [id number] STEPHANI JOE Self - patient is the insured MEDICAID OF [facility] [address] [place] [address] [id number] STEPHANI JOE Self - patient is the insured
--- OUTSIDE RECORDS SUMMARY | 2024-11-27 12:25 | XMS_ITS | Encounter Summary ---
Author Organization [employer] Address [address] [facility] 7t [place] [address] Care Team Providers Care Vice President Quality Improvement Name Role Phone James Flores MD Primary Care Provide r Encounter Details Date Type Department Care Team (Late st Contact Info) Description 08/22/[address] [facility] CHC MED & PEDS [address] [place], [place] [phone] Jaja Hammond LPN Social History Tobacco Use [...] 12/10/2024 9:15 AM EDT Office Visit [facility] MEDICINE 230 [place], [place] [phone] James Flores MD [address] [place] [address] documented as of this encounter Visit Diagnoses Not on filedocumented in this encounter Care Teams Vice President Quality Improvement Relationship Specialty Start Date End Date James Flores MD [address] [place] [address] PCP - General Internal Medicine 02/04/14 documented as of this encounter
--- OUTSIDE RECORDS SUMMARY | 2024-11-27 12:25 | XMS_ITS | Encounter Summary ---
Author Organization [facility] Address [address] [facility] [address] [place] [address] Phone Care Team Providers Care Horse Racer Name Role Phone James Trimble MD Primary Care Provide r Encounter Details Date Type Department Care Team (Late st Contact Info) Description 12/20/2020 Procedure Pass [facility], [address] [address] Social History Tobacco Use Types Packs/Day Years [...] AM EDT Trey Cardona i, RN * [place] Suicide Severity Rating Scale (Screener/Recent Self-Report) Question [...] documented as of this encounter Care Teams Horse Racer Relationship Specialty Start Date End Date James Trimble MD [address] [place] [address] [address] [place] [address] [email or web address] PCP - General 03/16/17 documented as of this encounter Additional Source Comments The information contained in this document represents components of the legal health record. It is not the complete legal health record.[facility]
--- OUTSIDE RECORDS SUMMARY | 2024-11-27 12:25 | XMS_ITS | Encounter Summary ---
Author Organization [employer] Address [address] 7t [place] [address] Care Team Providers Care Ct Tech Name Role Phone James Flores MD Primary Care Provide r Encounter Details Date Type Department Care Team (Late st Contact Info) Description 01/09/2023 Orders Only [facility] CHC MED & PEDS [address] [place] [address] Jaja Hammond LPN Social History Tobacco Use [...] Description 12/10/2024 9:15 AM EDT Office Visit [facility] MEDICINE 230 [place] [address] James Flores MD [address] [place] [address] documented as of this encounter Visit Diagnoses Not on filedocumented in this encounter Care Teams Ct Tech Relationship Specialty Start Date End Date James Flores MD [address] [place], [place] [phone] PCP - General Internal Medicine 02/04/14 documented as of this encounter
--- OUTSIDE RECORDS SUMMARY | 2024-11-27 12:25 | XMS_ITS | Encounter Summary ---
Author Organization [employer] Address [address] [facility] 7t [place] [address] Care Team Providers Care Roofer Gypsum Name Role Phone James Flores MD Primary Care Provide r Encounter Details Date Type Department Care Team ([facility] st Contact Info) Description 03/14/2023 Telephone [facility] [address] [place] [address] Adriana Odell [place] Social History Tobacco Use [...] Description 12/10/2024 9:15 AM EDT Office Visit [facility] MEDICINE 230 [place] [address] aJmes Flores MD 230 [place] [address] documented as of this encounter Visit Diagnoses Not on filedocumented in this encounter Care Teams Roofer Gypsum Relationship Specialty Start Date End Date James Flores MD 230 [place] [address] PCP - General Internal Medicine 02/04/14 documented as of this encounter
--- OUTSIDE RECORDS SUMMARY | 2024-11-27 12:25 | XMS_ITS | Encounter Summary ---
Author Organization [employer] [facility] Address [address] [facility] 7[address] [place] [address] Care Team Providers Care Elevator Supervisor Name Role Phone James Flores MD Primary Care Provide r Reason for Visit * Reason Comments Med Refill Encounter Details Date Type Department Care Team (Late st Contact Info) Description 08/21/2022 Refill [facility] MEDICINE [address] [place] [address] James Flores MD 230 [place], [place] [phone] Social History Tobacco Use Types Packs/Day Years [...] Office Visit [facility] MEDICINE [address] [place], [place] [phone] James Flores MD [address] [place] [address] [phone] documented as of this encounter Visit Diagnoses Not on filedocumented in this encounter Care Teams Elevator Supervisor Relationship Specialty Start Date End Date James Flores MD [address] [place] [address] PCP - General Internal Medicine 02/04/14 documented as of this encounter
--- OUTSIDE RECORDS SUMMARY | 2024-11-27 12:25 | XMS_ITS | Encounter Summary ---
Author Organization [facility] Address [address] [facility] [address] [place] [address] Phone Care Team Providers Care Supervisor Solder Making Name Role Phone James Trimble MD Primary Care Provide r Encounter Details Date Type Department Care Team (Late st Contact Info) Description 12/20/2020 Procedure Pass [facility], Ct Scan - [address] [address] Social History Tobacco Use Types Packs/Day Years [...] AM EDT Trey Cardona i, RN * [place] Suicide Severity Rating Scale (Screener/Recent Self-Report) Question [...] as of this encounter Care Teams Supervisor Solder Making Relationship Specialty Start Date End Date James Trimble MD [address] [place] [address] [address] [place] [address] [email or web address] PCP - General 03/16/17 documented as of this encounter Additional Source Comments The information contained in this document represents components of the legal health record. It is not the complete legal health record.[facility]
--- OUTSIDE RECORDS SUMMARY | 2024-11-27 12:26 | XMS_ITS | Encounter Summary ---
Author Organization [employer] Address [address] [address] 7t [place] [address] Care Team Providers Care Plant Operations Worker Name Role Phone James Flores MD Primary Care Provide r Reason for Visit * Reason Comments Med Refill Encounter Details Date Type Department Care Team (Late st Contact Info) Description 05/10/2024 Refill [facility] 230 [place] [address] Coco Montiel NP 230 [place] [address] Mild intermittent asthma without complication Social History [...] Office Visit [facility] MEDICINE 230 [place] [address] James Flores MD [address] [place] [address] documented as of this encounter Visit Diagnoses Diagnosis Mild intermittent asthma without complication documented in this encounter Additional Health Concerns Assessment Noted Time PHQ-9 Depression Total Score: 0 01/30/20 24 10:37 AM EST documented as of this encounter Care Teams Plant Operations Worker Relationship Specialty Start Date End Date James Flores MD [address] [place] [address] PCP - General Internal Medicine 02/04/14 documented as of this encounter
--- OUTSIDE RECORDS SUMMARY | 2024-11-27 12:26 | XMS_ITS | Clinical Summary ---
Author Organization [address] [facility] Address [address] [place] [address] Phone Care Team Providers Care Wheel Worker Name Role Phone Ruchi Ayala MD Primary [...] Description 11/08/2024 9:45 AM EDT Consult Orthopedic [facility] [address] [phone] Nii Frias DPM Nondisplaced fracture of proximal [...] Upcoming Encounters Date Type Department Care Team ([facility] Contact Info) Description 12/24/2024 9:30 AM EDT Office Visit Orthopedic [facility] [address] [phone] Nii Frias DPM [address] [address] Health Maintenance Due Date Last Done Comments Breast Cancer Screening 1955 Diabetes: Annual Foot Exam 05/18/1965 Diabetes: Annual Retina Eye Exam 05/18/1965 Pneumococcal Vaccine: 50+ Years (1 of 2 - PCV) 05/18/1974 RSV Immunization Adult Patients (1 - Risk 60-74 years 1-dose series) 2015 Zoster Vaccines (3 of 3) 09/14/2021 07/20/2021, 08/11/2015 Depression Screening 03/13/2024 Colorectal Cancer Screening: Colonoscopy 11/05/2024 Falls Risk Assessment 11/05/2024 Hepatitis C Screening 11/05/2024 Medicare Annual Wellness Visit 11/05/2024 Osteoporosis Screening (Bone Density Screening) 11/05/2024 Social Influencers of Health Screening 11/05/2024 Diabetes: Annual Urine Albumin-Creatinine Ratio (uACR) 11/08/2024 COVID-19 Vaccine ( - season) 2024 08/31/2020, 08/01/2020 Influenza Vaccine (#1) 2024 , 11/23/2022, 12/09/2021, [...] ID:[id number] Group ID:[id number] Type:Not on file Address: [place] [address] [place] [address] Care Teams Wheel Worker Relationship Specialty Start Date End Date Ruchi Ayala MD [address] [phone] PCP - General Internal Medicine 11/05/24
--- OUTSIDE RECORDS SUMMARY | 2024-11-27 12:26 | XMS_ITS | Encounter Summary ---
Author Organization [facility] Address [address] [facility] 7t [place] [address] Care Team Providers Care Sign Wirer Name Role Phone James Flores MD Primary Care Provide r Encounter Details Date Type Department Care Team (Late st Contact Info) Description 05/11/[address] [facility] MEDICINE [address] [place] [address] [phone] James Flores MD [address] [place] [address] [phone] Social History Tobacco Use Types Packs/Day Years [...] EDT Office Visit [facility] MEDICINE [address] [place] [address] [phone] James Flores MD [address] [place] [address] [phone] documented as of this encounter Visit Diagnoses Not on filedocumented in this encounter Care Teams Sign Wirer Relationship Specialty Start Date End Date James Flores MD 230 [place] [address] PCP - General Internal Medicine 02/04/14 documented as of this encounter
--- OUTSIDE RECORDS SUMMARY | 2024-11-27 12:26 | XMS_ITS | Encounter Summary ---
Author Organization [employer] Address [address] [facility] 7t [place] [address] Care Team Providers Care Stoker Installer Name Role Phone James Flores MD Primary Care Provide r Reason for Visit * Reason Onset Date Comments Nurse Triage 03/18/2024 Encounter Details Date Type Department Care Team (Late st Contact Info) Description 03/18/2024 Telephone [facility] MEDICINE [address] [place] [address] James Flores MD [address] [place] [address] Nurse Triage Social History Tobacco Use Types [...] 03/18/2024 11:50 AM EST Triage call with [facility] [place] [id number]. Pt reports continual coughing with cold symptoms. Pt was seen in [facility] 02/29/24 for cough and exacerbation [...] 12/10/2024 9:15 AM EDT Office Visit [facility] MEDICINE 230 [place] [address] James Flores MD [address] [place] [address] documented as of this encounter Visit Diagnoses Not on filedocumented in this encounter Additional Health Concerns Assessment Noted Time PHQ-9 Depression Total Score: 0 01/30/20 24 10:37 AM EST documented as of this encounter Care Teams Stoker Installer Relationship Specialty Start Date End Date James Flores MD [address] [place] [address] PCP - General Internal Medicine 02/04/14 documented as of this encounter
--- OUTSIDE RECORDS SUMMARY | 2024-11-27 12:26 | XMS_ITS | Encounter Summary ---
Author Organization [employer] Address [address] [facility] 7t [place] [address] Care Team Providers Care Paediatric Thoracic Physician Name Role Phone James Flores MD Primary Care Provide r Reason for Visit * Reason Onset Date Comments Durable Medical Equipment 09/27/2023 Encounter Details Date Type Department Care Team (Late st Contact Info) Description 09/27/2023 Telephone [facility] MEDICINE [address] [place] [address] James Flores MD [address] [place], [place] [phone] Durable Medical Equipment Social History Tobacco Use [...] 1 flip pillow DME Please contact at [phone] * Telephone Encounter - Fernando Christie - 09/27/2023 2:40 PM EDT Tc from pt 10 in 1 flip pillow due to issues sleeping. Pt would like script to be faxed to [facility] If any questions you can contact pt at [phone]. documented in this encounter Plan of Treatment Upcoming Encounters Date Type Department Care Team (Late st Contact Info) Description 12/10/2024 9:15 AM EDT Office Visit [facility] MEDICINE [address] [place] [address] James Flores MD [address] [place] [address] documented as of this encounter Visit Diagnoses Not on filedocumented in this encounter Care Teams Paediatric Thoracic Physician Relationship Specialty Start Date End Date James Flores MD [address] [place] [address] PCP - General Internal Medicine 02/04/14 documented as of this encounter"
--- OUTSIDE RECORDS SUMMARY | 2024-11-27 12:26 | XMS_ITS | Encounter Summary ---
Author Organization [employer] Address [address] [facility] 7t [place] [address] Care Team Providers Care Grove Worker Name Role Phone James Flores MD Primary Care Provide r Encounter Details Date Type Department Care Team ([facility] Contact Info) Description 03/17/2022 Orders Only [facility] CHC MED & PEDS [address] [place], [place] [phone] Jaja Hammond LPN Social History Tobacco Use [...] Upcoming Encounters Date Type Department Care Team ([facility] Contact Info) Description 12/10/2024 9:15 AM EDT Office Visit [facility] MEDICINE 230 [place], [place] [phone] James Flores MD 230 [place], [place] [phone] documented as of this encounter Visit Diagnoses Not on filedocumented in this encounter Care Teams Grove Worker Relationship Specialty Start Date End Date James Flores MD [address] [place] [address] PCP - General Internal Medicine 02/04/14 documented as of this encounter
--- OUTSIDE RECORDS SUMMARY | 2024-11-27 12:26 | XMS_ITS | Clinical Summary ---
Author Organization [facility] Address [address] [place] [address] Phone Care Team Providers Care Clinical Applications Manager Name Role Phone James Grant MD Primary [...] patient's age to complete this topic Insurance [employer] Care Teams Clinical Applications Manager Relationship Specialty Start Date End Date James Grant MD PCP - General 03/23/20
--- OUTSIDE RECORDS SUMMARY | 2024-11-27 12:26 | XMS_ITS | Encounter Summary ---
Author Organization [employer] Address [address] [facility] 7t [place] [address] Care Team Providers Care Steam Crane Operator Name Role Phone James Flores MD Primary Care Provide r Encounter Details Date Type Department Care Team ([facility] st Contact Info) Description 02/21/2022 Abstract [facility] MEDICINE 230 [place] [address] James Flores MD 230 [place] [address] Social History Tobacco Use Types Packs/Day Years [...] 9:15 AM EDT Office Visit [facility] MEDICINE 230 [place] [address] James Flores MD [address] [place] [address] documented as of this encounter Procedures Procedure [...] on filedocumented in this encounter Care Teams Steam Crane Operator Relationship Specialty Start Date End Date James Flores MD [address] [place] [address] PCP - General Internal Medicine 02/04/14 documented as of this encounter
--- OUTSIDE RECORDS SUMMARY | 2024-11-27 12:26 | XMS_ITS | Clinical Summary ---
Author Organization [employer] Address [address] [facility] [address] [place] [address] Care Team Providers Care City Director Name Role Phone James Flores MD [...] the morning. 023 Active Calcium Citrate-Vitamin D (Morton Calcium/Vitamin D) 200-6.25 MG-MCG tablet TAKE 2 [...] CHANGE EVERY 14 DAYS Active Continuous Glucose Enamel Machine Operator (FreeStyle Collin 3 [place]) device USE DIRECTED Active bisacodyl (Dulcolax) 10 [...] needed). 90 mL 3 Active nystatin (Mycostatin) 975957 UNIT/GM powderIndications :Tinea corporis Apply topically 2 [...] complication, with long-term current use of insulin ([facility]) USE DIRECTED FOUR TIMES DAILY 100 each 6 025 Active meloxicam (Mobic) 15 MG tablet [...] complication, with long-term current use of insulin ([facility]) INJECT 35 UNITS SUBCUTANEOUSLY EVERY DAY 15 mL 2 025 Active atorvastatin (Lipitor) 80 MG tabletIndications :Mixed hyperlipidemia TAKE 1 TABLET BY MOUTH AT BEDTIME 30 tablet 5 025 Active lidocaine (Lidoderm) 5 % patchIndications: Acute left-sided low back pain without sciatica Apply 1 patch topically Once per day. Remove & discard patch within 12 hours or as directed by . 30 patch 025 Active metoprolol tartrate (Lopressor) 50 MG tablet TAKE 1 TABLET BY MOUTH TWICE DAILY IN THE MORNING AND IN THE EVENING WITH FOOD 180 tablet 1 025 Active HumaLOG KWIKPEN 100 UNIT/ML injectionIndicati ons:Type 2 diabetes mellitus without complication, with long-term current use of insulin (CMS/HCC) INJECT 6 TO 16 UNITS SUBCUTANEOUSLY DIRECTED PER SLIDING SCALE: BLOOD SUGAR 150-200 = 6 UNITS, 201-250 = 10 UNITS, 251-300 = 12 UNITS, 301-350 = 14 UNITS > 351 = 16 UNITS 15 mL 3 025 Active Ferrous Sulfate (iron) 325 (65 Fe) MG tabletIndications :Chronic anemia TAKE 1 TABLET BY MOUTH THREE TIMES DAILY IN THE MORNING, AT NOON, AND IN THE EVENING 90 tablet 1 Active metoprolol tartrate (Lopressor) 50 MG tablet TAKE 1 TABLET BY MOUTH TWICE DAILY IN THE MORNING AND IN THE EVENING WITH FOOD 180 tablet 1 025 2024 Discontinued HumaLOG KWIKPEN 100 UNIT/ML injectionIndicati ons:Type 2 [...] at bedtime for 10 days. 10 tablet 025 2024 Active Problems Problem Noted [...] to far out. Pt did see an Manager Business Process that did not see any abnormalitites and [...] to far out. Pt did see an Manager Business Process that did not see any abnormalitites and [...] acute injury to the right knee. 2. Xlbn-di-edtyimgw lateral compartment degenerative changes. Left: IMPRESSION: 1. [...] acute injury to the right knee. 2. Meig-dv-tofmilpu lateral compartment degenerative changes. Left: IMPRESSION: 1. [...] evaluation Last colonoscopy 07/2022 showed tubular adenomas [facility] health care 06/21/2022 Assessment & Plan (03/21/2024 9:20 AM EST): Routine physical exam today: within normal limits Mammogram: NL : 02/22/2023 Pap Smear: 06/27/2023: Normal In 11/24/2016 ASCUS with positive HPV. Pt underwent Colpo with biopsies & ECC per DIRECTOR OF MARKET INTELLIGENCE notes from 04/2017 Colonoscopy: 07/2022 Tubular adenoma repeat 3 years Vaccines: Flu shot: tdap: 05/31/2013 Dexa scan:. 04/28/2015 showed osteopenia Assessment & Plan (01/30/2024 11:02 AM EST): Routine physical exam today: within normal limits Mammogram: NL : 02/22/2023 Pap Smear: 06/27/2023: Normal In 11/24/2016 ASCUS with positive HPV. Pt underwent Colpo with biopsies & ECC per DIRECTOR OF MARKET INTELLIGENCE notes from 04/2017 Colonoscopy: 07/2022 Tubular adenoma repeat 3-5 years Vaccines: Flu shot: tdap: 05/31/2013 Dexa scan:. 04/28/2015 showed osteopenia Assessment & Plan (01/19/2023 1:43 PM EST): Mammogram: NL : 01/29/2021 Pap Smear: 11/24/2016 ASCUS with positive HPV. Pt underwent Colpo with biopsies & ECC per DIRECTOR OF MARKET INTELLIGENCE notes from 04/2017 she was supposed to have a repeat with co test 04/2018 and if both neg then would f/u in 3 years records requested Colonoscopy: 07/2022 Tubular adenoma repeat 3-5 years Vaccines: Flu shot: tdap: 05/31/2013 Dexa scan:. 04/28/2015 showed osteopenia History of CVA (cerebrovascular accident) 2021 Assessment & Plan (05/30/2024 9:07 AM EDT): Hx of this Pt was admitted to [facility] from 10:12/31-12/22/2020 Patient presented to ED [...] Hx of this Pt was admitted to [facility] from 10:12/31-12/22/2020 Patient presented to ED [...] Plan (01/31/2023 11:27 AM EST): Seen at [facility] 01/28/2023 with an asthma exacerbation [...] disease and negative nuclear stress test at [facility] . Due to her Hx of [...] disease and negative nuclear stress test at [facility] . Due to her recent CVA [...] disease and negative nuclear stress test at [facility] . Due to her recent CVA [...] Encounters Date Type Department Care Team Description 11/27/2024 Refill [facility] [address] [place] [address] James Flores MD 11/22/2024 Refill [facility] [address] [place] [address] James Flores MD Chronic anemia 11/20/2024 Orders Only GENERIC EXTERNAL DATA DEPARTMENT Provider, Generic External Data 11/20/2024 Refill [facility] [address] [place] [address] James Flores MD Type 2 diabetes mellitus without complication, with long-term current use of insulin ([facility]) 11/19/2024 Refill [facility] [address] [facility] [place] [address] James Flores MD 11/14/2024 Abstract [facility] [address] [facility] [place] [address] Yazmin Ashraf [place] 11/13/2024 Orders Only GENERIC EXTERNAL DATA DEPARTMENT Provider, Generic External Data 11/01/2024 Results Follow-Up [facility] [address] [place] [address] Ruchi Ayala MD XR Foot 3+ Views Left 10/31/2024 Orders Only GENERIC EXTERNAL DATA DEPARTMENT Provider, Generic External Data 10/30/2024 6:00 PM EDT Office Visit [facility] [address] [place] [phone] Ruchi Ayala MD Pain of toe of left foot (Primary Dx); Acute left-sided low back pain without sciatica 10/30/2024 Travel 10/16/[address] [address] James Flores MD Durable Medical Equipment 10/07/[address] [address] James Flores MD Durable Medical Equipment 10/02/[address] [address] James Flores MD Med Refill 09/20/[address] [address] James Flores MD Chronic anemia 09/11/2024 Orders Only GENERIC EXTERNAL DATA DEPARTMENT Provider, Generic External Data 09/06/[address] [address] James Flores MD Durable Medical Equipment 09/03/2024 11:15 AM EDT Office Visit [address] [address] James Flores MD Type 2 diabetes mellitus with stage 3a chronic kidney disease, with long-term current use of insulin ([facility]) (Primary Dx); Temporal arteritis (CMS/[facility]); Primary osteoarthritis of left knee; Acute pain of both knees; Breast cancer screening by mammogram; Hypertension, unspecified type; CKD stage 3 secondary to diabetes (CMS/HCC); Urinary incontinence, unspecified type 09/03/2024 Travel 09/03/[address] [address] James Flores MD Paperwork/Forms 09/03/2024 Telephone [facility] [address] [place] [address] James Flores MD Referral 09/02/2024 Telephone [facility] [address] [place] [address] James Flores MD chart prep from Last 3 Months Immunizations Immunization Administration [...] Description 12/10/2024 9:15 AM EDT Office Visit [facility] [address] [facility] [place] [address] James Flores MD [address] [facility] [place] [address] Health Maintenance Due Date Last Done Comments CT Colonography 1955 FIT DNA/Cologuard 1955 FIT 1955 FOBT 1955 Sigmoidoscopy 1955 Hepatitis C Screening 05/18/1973 Pneumococcal Vaccine: 50+ Years (1 of 2 - PCV) 05/18/1974 RSV Patients and Patients Aged 60 years or older (1 - Risk 60-74 years 1-dose series) 2015 Zoster Vaccines (3 of 3) 09/14/2021 07/20/2021, 0811/2015 COVID-19 Vaccine (3 - season) 2024 08/31/2020, [...] 02/22/2023, Additional history exists HPV/Cotest 01/17/2027 01/17/2022, 11/0 09/2021, 11/24/2016 Pap [...] Procedure Name Priority Date/Time Associated Diagnosis Comments CALCIUM Routine 11/20/2024 11:16 AM EDT CREATININE, SERUM Routine 11/20/2024 11: 16 AM EDT UREA NITROGEN (BUN) Routine 11/20/2024 1 1:16 AM EDT ELECTROLYTE PANEL Routine 11/20/2024 11: 16 AM EDT HM MAMMOGRAPHY Routine 11/14/2024 10:06 AM EDT [...] disease, with long-term current use of insulin ([facility]) POCT GLUCOSE Routine 09/03/2024 11:38 AM EDT Type 2 diabetes mellitus with stage 3a chronic kidney disease, with long-term current use of insulin ([facility]) AMB REFERRAL TO OPHTHALMOLOGY Urgent 06/20/2024 Giant cell arteritis ([facility]) PAP SMEAR Routine 06/22/2023 3:20 PM EDT HM COLONOSCOPY Routine 07/11/2022 3:53 PM EDT ZZZ HISTORICAL HPV E6/E7 RFLX DANIAL 16 1845 Routine 01/17/2022 4:22 PM EST from Last 3 Months or Most Recently Relevant to Health Maintenance Results * (ABNORMAL) Creatinine, Serum (11/20/2024 11:16 AM EDT) Creatinine, Serum 1.57(H) 0.5 - 1.4 mg/dL [facility] Estimated Glomerular Filt Rate 33 [facility] Comment:Chronic Kidney Disea se: Estimated GFR < 60 mL/min/1.82x3Sbmmcm Kidney Disease: Estimated GFR < 15 mL/min/1.73m2 11/20/2024 11:1 6 AM EDT 11/20/2024 11:16 AM EDT us Generic External Data Provider LAB BLOOD ORDERAB LES Final Result [facility] [address] [place] [phone] [phone] * (ABNORMAL) BUN (Blood Urea Nitrogen) (11/20/2024 11:16 AM EDT) Urea Nitrogen (BUN) 37(H) 9 - 16 mg/dL [facility] 11/20/2024 11:1 6 AM EDT 11/20/2024 11:16 AM EDT us Generic External Data Provider LAB BLOOD ORDERAB LES Final Result Performing Organization Address [facility] Co de Phone Number [facility] [address] [place] [phone] * (ABNORMAL) Calcium (11/20/2024 11:16 AM EDT) Calcium 10.5(H) 8.4 - 10.2 mg/dL [facility] 11/20/2024 11:1 6 AM EDT 11/20/2024 11:16 AM EDT us Generic External Data Provider LAB BLOOD ORDERAB LES Final Result Performing Organization Address [facility] de Phone Number [facility] [address] [place] [phone] * (ABNORMAL) Electrolyte Panel (11/20/2024 11:16 AM EDT) Sodium 145 135 - 145 mmol/L [facility] Potassium 5.2(H) 3.3 - 5.1 mmol/L [facility] Chloride 107 96 - 108 mmol/L [facility] Carbon Dioxide 31(H) 22 - 29 mmol/L [facility] Anion Gap 12 12 - 20 [facility] 11/20/2024 11:1 6 AM EDT 11/20/2024 11:16 AM EDT us Generic External Data Provider LAB BLOOD ORDERAB LES Final Result Performing Organization Address [facility] Co de Phone Number [facility] [address] [place] [phone] * Hm Mammography (11/14/2024 10:06 AM EDT) HM Mammogram BIRADS 1 Normal, Abnormal, BIRADS 1 , BIRADS 2 Comment:follow up 1 year Anatomical Region Laterality Modality Other us Historical Provider MD HEALTH MAINTENANCE Final Result * Glucose, Whole Blood (11/13/2024 9:56 AM EDT) Only the most recent of2 resultswithin the time period is included. Glucose, Whole Blood 102 60 - 115 mg/dL [facility] Comment:METER #: [id number] 0Testing performed in the Endocrinology Department [address], [place]. 11/13/2024 9:56 AM EDT 11/13/2024 10:00 AM EDT Generic External Data Provider LAB BLOOD ORDERAB LES Final Result [facility] [address] [place] [address] [phone] * BI Mammogram Screening Tomosynthesis Bilateral (11/04/2024 11:10 AM EDT) Anatomical Region Laterality Modality Breast Bilateral Mammography 11/04/2024 11:1 0 AM EDT Narrative 11/08/2024 5:49 PM EDT [facility] [address] [place] [address] Mammography Report Signed Patient: Jayne Lane MR#: [id number] : 1955 Acct:[id number] Age/Sex: 69 / F ADM Date: 11/04/24 Loc: [facility] Attending Dr: James Trimble MD Ordering Physician: James Trimble MD Resu lts: 1Negative Date of Service: 11/04/24 Follow Up: 1 Year From Orig inal Mammogram Procedure(s): MM tomosynthesis screening BI Accession Number(s): [id number] cc: James Trimble MD EXAMINATION: MM SCREENING [...] 11/08/24 1746 DD/ 1110 TD/TT: 11/04/24 1133 Color Dipper: Procedure Note Donotuseinterpreter, Image - 11/08/2024 [facility] [address] [place], [place] [address] Mammography Report Signed Patient: Olivia Lane#: [id number] : 1955cct:[id number] Age/Sex: 69 / FADM Date: 11/04/24 Loc: HO.MAMMO Attending Dr: James Trimble MD Ordering Physician: James Trimble MDResu lts: 1Negative Date of Service: 11/04/24Follow Up: 1 Year From Orig inal Mammogram Procedure(s): MM tomosynthesis screening BI Accession Number(s): [id number] cc: James Trimble MD EXAMINATION: MM SCREENING [...] 11/08/24 1746 DD/ 1110 TD/TT: 11/04/24 1133 Color Dipper: us James Ashraf MD IM BI PROCEDURES Fin al Result * Proteinase-3 Antibody (10/31/2024 10:27 AM EDT) Proteinase-3 Antibody <1.0 [facility] Comment:Value Interpretation ----- <1.0 No Antibody Detected > or = 1.0 Antibody DetectedAutoantibodies to proteinase-3 (WY-3) are accepted ascharacteristic for granulomatosis with polyangiitis(GPA, Cresencio's), and are detectable in 95% of thehistologically proven cases. The cytoplasmic IFApattern, (c-ANCA), is based largely on autoantibody toPR-3 which serves as the primary antigen.These autoantibodies are present in active disease.THIS TEST WAS PERFORMED AT:[employer] [place] [phone] CHAND MD 10/31/2024 10:2 7 AM EDT 10/31/2024 11:25 AM EDT us Generic External Data Provider LAB BLOOD ORDERAB LES Final Result [facility] [address] [place] [phone] * Myeloperoxidase Antibody (MPO) (10/31/2024 10:27 AM EDT) Myeloperoxidase Antibody <1.0 [facility] Comment:Value Interpretation ----- <1.0 No Antibody Detected > or = 1.0 Antibody DetectedAutoantibodies to myeloperoxidase (MPO) are commonlyassociated with the following small-vesselvasculitides: microscopic polyangiitis,polyarteritis nodosa, Churg-Kelton syndrome,necrotizing and crescentic glomerulonephritis andoccasionally granulomatosis with polyangiitis(GPA, Cresencio's). The perinuclear IFA pattern,(p-ANCA) is based largely on autoantibody tomyeloperoxidase which serves as the primary antigen.These autoantibodies are present in active disease.THIS TEST WAS PERFORMED AT:[facility] [place] [phone] CHAND MD 10/31/2024 10:2 7 AM EDT 10/31/2024 11:25 AM EDT us Generic External Data Provider LAB BLOOD ORDERAB LES Final Result Performing Organization Address [facility] Co de Phone Number [facility] [address] [place] [phone] * (ABNORMAL) Protein Creatinine Ratio, Urine (10/31/2024 10:27 AM EDT) Creatinine, Urine 133.81 mg/dL [facility] Protein, Total, Random Urine 58(H) <12 mg/dL [facility] Protein/Creati nine Ratio, Ur 0.43(H) <0.2 [facility] Comment:The spot urine prote in:creatinine ratio may increase to 0.3during normal . 10/31/2024 10:2 7 AM EDT 10/31/2024 11:10 AM EDT Generic External Data Provider LAB URINE ORDERAB LES Final Result Performing Organization Address [facility] de Phone Number [facility] [address] [place] [phone] * Phospholipase A2 Receptor (PLA2R) Antibody Panel (10/31/2024 10:27 AM EDT) Phospholipase A2 Receptor (PLA2R) Ab, ABHIJEET <4 RU/mL [facility] Comment:Reference Range: <14 : NEGATIVE 14-19: BORDERLINE >19: POSITIVE Phospholipase A2 Receptor (PLA2R) Ab, IFA NEGATIVE NEGATIVE [facility] Comment:THIS TEST WAS PERFOR MED AT:[employer]/[id number] [place] [address]KBUJNOLEG DELATORRE MD,PHD,SHU 10/31/2024 10:2 7 AM EDT 10/31/2024 11:25 AM EDT Generic External Data Provider LAB BLOOD ORDERAB LES Final Result Performing Organization Address [facility] Co de Phone Number [facility] [address] [place] [phone] * Immunofixation (SONIA), Urine (10/31/2024 10:27 AM EDT) SONIA Interpretation [facility] Comment:No monoclonal protei ns detected.THIS TEST WAS PERFORMED AT:[employer] [address] [id number] CHAND MD 10/31/2024 10:2 7 AM EDT 10/31/2024 11:10 AM EDT Generic External Data Provider LAB URINE ORDERAB LES Final Result Performing Organization Address [facility] Co de Phone Number [facility] [address] [place] [phone] * Glomerular Basement Membrane Antibody (IgG) (10/31/2024 10:27 AM EDT) Glomerular Basement Memebrane Antibody (IgG) <1.0 AI [facility] Comment:Value Interpretation ----- <1.0 No Antibody Detected > or = 1.0 Antibody DetectedTHIS TEST WAS PERFORMED AT:[employer] [address] [phone] CHAND MD 10/31/2024 10:2 7 AM EDT 10/31/2024 11:25 AM EDT Generic External Data Provider LAB BLOOD ORDERAB LES Final Result Performing Organization Address [facility] de Phone Number [facility] [address] [place] [phone] * DNA (ds) Antibody (10/31/2024 10:27 AM EDT) Anti DNA DS Antibody 1 IU/mL [facility] Comment:IU/mL Interpretation < or = 4 Negative 5-9 Indeterminate > or = 10 PositiveTHIS TEST WAS PERFORMED AT:[facility] [address] [phone] CHAND MD 10/31/2024 10:2 7 AM EDT 10/31/2024 11:25 AM EDT us Generic External Data Provider LAB BLOOD ORDERAB LES Final Result Performing Organization Address [facility] Co de Phone Number [facility] [address] [place] [phone] * Hepatitis B surface antigen, EIA (10/31/2024 10:27 AM EDT) Pathologist [facility] Hepatitis B Surface Ag Negative Negative [facility] 10/31/2024 10:2 7 AM EDT 10/31/2024 11:25 AM EDT Generic External Data Provider LAB BLOOD ORDERAB LES Final Result Performing Organization Address [facility] Co de Phone Number [facility] [address] [place] [phone] * Hepatitis B Core Antibody, Total (10/31/2024 10:27 AM EDT) Pathologist [facility] Hepatitis B Core Antibody Nonreactive Nonreactive [facility] 10/31/2024 10:2 7 AM EDT 10/31/2024 11:25 AM EDT Generic External Data Provider LAB BLOOD ORDERAB LES Final Result Performing Organization Address [facility] de Phone Number [facility] [address] [place] [phone] * Immunofixation, Serum (10/31/2024 10:27 AM EDT) Pathologist [facility] IMMUNOGLOBULIN G 885 600 - 1540 mg/dL [facility] IMMUNOGLOBULIN A 199 70 - 320 mg/dL [facility] Immunoglobulin M 74 50 - 300 mg/dL [facility] Comment:THIS TEST WAS PERFOR MED AT:[employer] [address] [phone] CHAND MD Immunofixation Result SEE NOTE [facility] Comment:Normal pattern. No m onoclonal proteins detected. 10/31/2024 10:2 7 AM EDT 10/31/2024 11:25 AM EDT us Generic External Data Provider LAB BLOOD ORDERAB LES Final Result Performing Organization Address [facility] Co de Phone Number [facility] [address] [place] [phone] * Complement Component C3c (10/31/2024 10:27 AM EDT) Complement C3 171 83 - 193 mg/dL [facility] Comment:THIS TEST WAS PERFOR MED AT:[employer] [address] [phone] CHAND MD 10/31/2024 10:2 7 AM EDT 10/31/2024 11:21 AM EDT us Generic External Data Provider LAB BLOOD ORDERAB LES Final Result Performing Organization Address [facility] de Phone Number [facility] [address] [place] [phone] * Complement Component C4c (10/31/2024 10:27 AM EDT) Complement C4 37 15 - 57 mg/dL [facility] Comment:THIS TEST WAS PERFOR MED AT:[employer] [address] [phone] CHAND MD 10/31/2024 10:2 7 AM EDT 10/31/2024 11:21 AM EDT us Generic External Data Provider LAB BLOOD ORDERAB LES Final Result Performing Organization Address [facility] Co de Phone Number [facility] [address] [place] [address] [place] [phone] * C-reactive Protein (10/31/2024 10:27 AM EDT) C Reactive Protein <0.10 < or = 0.50 mg/dL [facility] Blood Venous blood specimen / Unknown 10/31/2024 10:27 AM EDT 10/31/2024 11:25 AM EDT Ludwin Sylvester MD LAB BLOOD ORDERABLES Final Resul t Performing Organization Address [facility]/ZIP Co de Phone Number [facility] [address] [place] [phone] * (ABNORMAL) Hemoglobin A1c (10/31/2024 10:27 AM EDT) Hemoglobin A1c 7.7(H) <6.0 % [facility] Comment:Hemoglobin A1C Refer ence Range Adults: 4.8 - 6.0 % Non diabetic: < 6.0 % Goal: < 7.0 %Additional Action Suggested: > 8.0 %Note: Hemoglobin A1c results are invalid for patients with abnormal amounts of HbF. Blood transfusions may impact the HbA1c concentration in the patient sample. Estimated Average Glucose 174 mg/dL [facility] Comment:eAG = Estimated ave rage glucose which is %A1C expressed asaverage glucose, using the formula of the [id number] Glucose study (ADAG), Diabetes Care, Vol.31,#8,Oct. 2007 10/31/2024 10:2 7 AM EDT 10/31/2024 11:25 AM EDT us Generic External Data Provider LAB BLOOD ORDERAB LES Final Result Performing Organization Address City/[facility]/ZIP Co de Phone Number [facility] [address] [place] [phone] * Lipid Panel, Standard (10/31/2024 10:27 AM EDT) Triglycerides 126 <150 mg/dL [facility] Comment:Desirable Triglyceri de: less than 150 mg/dLBorderline High Triglyceride 150-199 mg/dLHigh Triglyceride: 200-499 mg/dLVery High Triglyceride: greater than or equal to 5OO mg/dL Cholesterol 139 <200 mg/dL [facility] Comment:Desirable Cholestero l: less than 200 mg/dLBorderline High Cholesterol: 200-239 mg/dLHigh Cholesterol: greater than 239 mg/dL LDL Cholesterol Calculated 71 <100 mg/dL [facility] Comment:Desirable LDL: less than 100 mg/dLNear Optimal/Above Optimal LDL: 110- 129 mg/dLBorderline High LDL: 130-159 mg/dLHigh LDL: 160-189 mg/dLVery High LDL: greater than or equal to 190 mg/dL HDL Cholesterol 43 >40 mg/dL [facility] Comment:Desirable HDL: great er than 40 mg/dL Note: This HDL assay may give artificially low results in patients with liver disease. 10/31/2024 10:2 7 AM EDT 10/31/2024 11:25 AM EDT us Generic External Data Provider LAB BLOOD ORDERAB LES Final Result [facility] [address] [place] [phone] * (ABNORMAL) Comprehensive Metabolic Panel (10/31/2024 10:27 AM EDT) Sodium 143 135 - 145 mmol/L [facility] Potassium 4.2 3.3 - 5.1 mmol/L [facility] Chloride 106 96 - 108 mmol/L [facility] Carbon Dioxide 29 22 - 29 mmol/L [facility] Anion Gap 12 12 - 20 [facility] Urea Nitrogen (BUN) 26(H) 9 - 16 mg/dL [facility] Creatinine, Serum 1.38 0.5 - 1.4 mg/dL [facility] Estimated Glomerular Filt Rate 38 [facility] Comment:Chronic Kidney Disea se: Estimated GFR < 60 mL/min/1.85b9Yguhsy Kidney Disease: Estimated GFR < 15 mL/min/1.73m2 Glucose 141(H) 60 - 115 mg/dL [facility] Calcium 10.0 8.4 - 10.2 mg/dL [facility] Bilirubin, Total 0.3 0.0 - 1.0 mg/dL [facility] Aspartate Amino Transferase 29 5 - 31 U/L [facility] Alanine Aminotransferase 17 0 - 31 U/L [facility] Total Protein 7.1 6.5 - 8.0 g/dL [facility] Albumin Level 4.4 3.5 - 5.0 g/dL [facility] Alkaline Phosphatase 57 39 - 117 U/L [facility] 10/31/2024 10:2 7 AM EDT 10/31/2024 11:25 AM EDT us Generic External Data Provider LAB BLOOD ORDERAB LES Final Result Performing Organization Address City/State/[facility] de Phone Number [facility] [address] [place] [phone] * XR Foot 3+ Views Left (10/31/2024 10:14 AM EDT) Anatomical Region Laterality Modality Lower Extremities, Foot Left Radiogra phic Imaging 10/31/2024 10:1 4 AM EDT Narrative 10/31/2024 10:28 AM EDT [address] [address] XRay Report Signed Patient: Jayne Lane MR#: [id number] : 1955 Acct:[id number] Age/Sex: 69 / F ADM Date: 10/31/24 Loc: HO.HHCX Attending Dr: Ruchi Osman MD Ordering Physician: Ruchi Ayala MD Date of Service: 10/31/24 Procedure(s): XR foot LT min 3V Accession Number(s): [id number] cc: Ruchi Ayala MD; James Trimble MD [...] 10/31/24 1025 DD/ 1014 TD/TT: 10/31/24 1018 Color Dipper: Procedure Note Donotuseinterpreter, Image - 10/31/[address] [address] XRay Report Signed Patient: Jayne LaneMR#: [id number] : 6Acct:[id number] Age/Sex: 69 / FADM Date: 10/31/24 Loc: HO.HHCX Attending Dr: Ruchi Osman MD Ordering Physician: Ruchi Ayala MD Date of Service: 10/31/24 Procedure(s): XR foot LT min 3V Accession Number(s): [id number] cc: Ruchi Ayala MD; James Trimble MD [...] 10/31/24 1025 DD/ 1014 TD/TT: 10/31/24 1018 Color Dipper: Ruchi Osman MD IMG XR PROCEDURES Fin al Result * (ABNORMAL) POCT HGB A1C (09/03/2024 11:40 AM EDT) Hemoglobin A1C 8.2(A) 4.0 - 6.0 % QC Media Lot # [id number] Lot# Expiration Date Blood 09/03/2024 11:4 0 AM EDT James Ashraf MD POINT OF CARE TEST EN TER/EDIT ORDERABLES Final Result * (ABNORMAL) POCT Glucose (09/03/2024 11:38 AM EDT) Glucose Blood, POC 266(A) 60 - 200 mg/dL QC Media Lot # [id number] Lot# Expiration Date Blood Capillary blood specimen / Unknown 09/03/2024 11:38 AM EDT James Ashraf MD POINT OF CARE TEST EN TER/EDIT ORDERABLES Final Result * Referral to Ophthalmology (06/20/2024) us Ludwin Sylvester MD OUTPATIENT REFERRAL ORDERABLES F inal Result * Pap Smear (06/22/2023 3:20 PM EDT) 06/22/2023 3:20 PM EDT 06/27/2023 11:15 AM EDT Narrative [facility] - 07/11/2023 2:16 PM EDT ----- ------- Name: Jayne Lane Age/Sex: 68/F : 1955 Unit#: [id number] Attend Dr: Opal Carranza CNM Re06/22/23 Status: DEP REF Location: [facility] Disch: ----- ------- SPEC : [id number] RECD: 06/27/23-1115 STATUS: DERRELL RE NUM: [id number] CYRUS: 06/22/23-[address] [facility] [address]: Opal Carranza CNM ENTERED: 06/27/23-1232 SP TYPE: Pap Smr OT DR: James Trimble MD ORDERED: Pap Smear, [...] 59, 66, 68) HPV testing performed by [email or web address], [place], [place]. See reference laboratory portion of the EMR for entire report. Clinical Information LMP: Menopause Previous PAP test: 02/01, Abnormal Other surgery:03/30 colpo DELPHINE I Other history: 2015 +HPV ACUS, 07/29 +HPV Material Received ThinPrep-Cervical Copies To: James Trimble MD [address] [place] [address] Opla Carranza [address] Rodriguez [address] [place] [phone] ----- ------- Signed (signature on file) Ev Preciado 07/11/23 1416 ----- ------- END OF REPORT us Generic External Data Provider LAB CYTOLOGY RELL SALAZAR Final Result [facility] [address] [place] [phone] [phone] * Colonoscopy (07/11/2022 3:53 PM EDT) Colonoscopy [...] Not Detected [facility] Comment: Methodology: Sports Statistician-Mediated Amplification This assay detects E6/E7 viral messenger RNA (mRNA) from 14 high-risk HPV types (16,18,31,33,35,39,45,51,52,56,58,59,66,68). Cervical sources are required for HPV testing. If a vaginal source from a patient who has had a total hysterectomy with removal of cervix was submitted, please contact the testing laboratory for alternative testing options. For additional information, please refer to http://education.[employer]/faq/RSW639z7 (This link if provided for information/ educational purposes only.) THIS TEST WAS PERFORMED AT: [facility] [address] [place] [address],[place] [address] KEVEN CHAND MD 01/17/2022 4:22 PM EST Opal Carranza HISTORICAL/NON ORDERABLE LABS Fi nal Result [facility] from Last 3 Months or Most Recently Relevant to Health Maintenance Insurance [facility] [employer] [facility] RETIREMENT OPT[employer] (HMO D-SNP) Care Teams City Director Relationship Specialty Start Date End Date James Flores MD [address] [place] [phone] PCP - General Internal Medicine 02/04/14
--- OUTSIDE RECORDS SUMMARY | 2024-11-27 12:26 | XMS_ITS | Encounter Summary ---
Author Organization [employer] Address [address] [facility] 7t [place] [address] Care Team Providers Care Turn Down Attendant Name Role Phone James Flores MD Primary Care Provide r Encounter Details Date Type Department Care Team (Late Contact Info) Description 04/13/2022 Orders Only [facility] [address] [place] [phone] April Olsen LPN Social History Tobacco Use [...] 12/10/2024 9:15 AM EDT Office Visit [facility] [address] [place], [place] [phone] James Flores MD [address] [place], [place] [phone] documented as of this encounter Visit Diagnoses Not on filedocumented in this encounter Care Teams Turn Down Attendant Relationship Specialty Start Date End Date James Flores MD [address] [place] [address] PCP - General Internal Medicine 02/04/14 documented as of this encounter
--- OUTSIDE RECORDS SUMMARY | 2024-11-27 12:26 | XMS_ITS | Encounter Summary ---
Author Organization [employer] Address [address] [facility] 7t [place] [address] Care Team Providers Care Printing Assistant Name Role Phone James Flores MD Primary Care Provide r Reason for Visit * Reason Comments Med Refill Encounter Details Date Type Department Care Team (Late st Contact Info) Description 11/22/2024 Refill [facility] [address] [place] [address] James Flores MD [address] [place] [address] Chronic anemia Social History Tobacco Use Types [...] Description 12/10/2024 9:15 AM EDT Office Visit [facility] [address] [place] [address] James Flores MD [address] [place] [address] documented as of this encounter Visit Diagnoses Diagnosis Chronic anemia Unspecified anemia documented in this encounter Additional Health Concerns Assessment Noted Time PHQ-9 Depression Total Score: 0 01/30/20 24 10:37 AM EST documented as of this encounter Care Teams Printing Assistant Relationship Specialty Start Date End Date James Flores MD [address] [place] [address] PCP - General Internal Medicine 02/04/14 documented as of this encounter
--- OUTSIDE RECORDS SUMMARY | 2024-11-27 12:26 | XMS_ITS | Encounter Summary ---
Author Organization [employer] Address [address] [place] [address] Care Team Providers Care Car Detailer Name Role Phone James Flores MD Primary Care Provide r Reason for Visit * Reason Comments Med Refill Encounter Details Date Type Department Care Team (Late st Contact Info) Description 11/27/2024 Refill [facility] [address] [place] [address] James Flores MD [address] [place], [place] [phone] Social History Tobacco Use Types Packs/Day Years [...] Office Visit [facility] [address] [place] [address] James Flores MD [address] [place] [address] documented as of this encounter Visit Diagnoses Not on filedocumented in this encounter Additional Health Concerns Assessment Noted Time PHQ-9 Depression Total Score: 0 01/30/20 24 10:37 AM EST documented as of this encounter Care Teams Car Detailer Relationship Specialty Start Date End Date James Flores MD [address] [place] [address] PCP - General Internal Medicine 02/04/14 documented as of this encounter
--- OUTSIDE RECORDS SUMMARY | 2024-11-27 12:26 | XMS_ITS | Encounter Summary ---
Author Organization [employer] Address [address] [facility] 7t [place] [address] Care Team Providers Care Field Artillery Targeting Technician Name Role Phone James Flores MD Primary Care Provide r Encounter Details Date Type Department Care Team ([facility] st Contact Info) Description 01/11/2024 Telephone [facility] MED[facility]INE [address] [place], [place] [phone] James Flores MD [address] [place], [place] [phone] Social History Tobacco Use Types Packs/Day Years [...] 12/10/2024 9:15 AM EDT Office Visit [facility] [address] [place] [address] James Flores MD [address] [place] [address] documented as of this encounter Visit Diagnoses Not on filedocumented in this encounter Care Teams Field Artillery Targeting Technician Relationship Specialty Start Date End Date James Flores MD [address] [place] [address] PCP - General Internal Medicine 02/04/14 documented as of this encounter
--- OUTSIDE RECORDS SUMMARY | 2024-11-27 12:26 | XMS_ITS | Encounter Summary ---
Author Organization [employer] Address [address] [facility] 7t [place] [address] Care Team Providers Care Molder Sweep Name Role Phone James Flores MD Primary Care Provide r Reason for Visit * Reason Comments Med Refill Encounter Details Date Type Department Care Team (Late st Contact Info) Description 09/04/2023 Refill [facility]INE [address] [place] [address] Name, MD Loki [address] [place] [address] Gastroesophageal reflux disease without esophagitis Social History [...] t he electric, gas, oil or water [employer] threatened to shut off services in your [...] Description 12/10/2024 9:15 AM EDT Office Visit [facility] [address] [place] [address] James Flores MD [address] [place] [address] documented as of this encounter Visit Diagnoses Diagnosis Gastroesophageal reflux disease without esophagitis Esophageal reflux documented in this encounter Care Teams Molder Sweep Relationship Specialty Start Date End Date James Flores MD [address] [place] [address] PCP - General Internal Medicine 02/04/14 documented as of this encounter
--- OUTSIDE RECORDS SUMMARY | 2024-11-27 12:26 | XMS_ITS | Encounter Summary ---
Author Organization [employer] Address [address] [facility] 7t [place] [address] Care Team Providers Care Rubber Tubing Splicer Name Role Phone James Flores MD Primary Care Provide r Reason for Visit * Reason Onset Date Comments Durable Medical Equipment 07/30/2024 Encounter Details Date Type Department Care Team (Late st Contact Info) Description 07/30/2024 Telephone [facility] [address] [place] [address] James Flores MD [address] [place] [address] Durable Medical Equipment Social History Tobacco Use [...] Description 12/10/2024 9:15 AM EDT Office Visit [facility] [address] [place] [address] James Flores MD [address] [place] [address] documented as of this encounter Visit Diagnoses Not on filedocumented in this encounter Additional Health Concerns Assessment Noted Time PHQ-9 Depression Total Score: 0 01/30/20 24 10:37 AM EST documented as of this encounter Care Teams Rubber Tubing Splicer Relationship Specialty Start Date End Date James Flores MD [address] [place] [address] PCP - General Internal Medicine 02/04/14 documented as of this encounter
--- OUTSIDE RECORDS SUMMARY | 2024-11-27 12:26 | XMS_ITS | Encounter Summary ---
Author Organization [facility] Address [address] [facility] [address] [place] [address] Phone Care Team Providers Care Director Digital Marketing Name Role Phone James Trimble MD Primary Care Provide r Encounter Details Date Type Department Care Team (Late st Contact Info) Description 12/21/2020 Procedure Pass [facility] [address] [place] [address] Social History Tobacco Use Types Packs/Day Years [...] AM EDT Trey Cardona i, RN * [place] Suicide Severity Rating Scale (Screener/Recent Self-Report) Question [...] as of this encounter Care Teams Director Digital Marketing Relationship Specialty Start Date End Date James Trimble MD [address] [place] [address] [address] [place] [address] [email or web address] PCP - General 03/16/17 documented as of this encounter Additional Source Comments The information contained in this document represents components of the legal health record. It is not the complete legal health record.[facility]
--- OUTSIDE RECORDS SUMMARY | 2024-11-27 12:26 | XMS_ITS | Encounter Summary ---
Author Organization [facility] Address [address] [facility] [address] [place] [address] Phone Care Team Providers Care Sterile Process Coordinator Name Role Phone James Trimble MD Primary Care Provide r Encounter Details Date Type Department Care Team (Late st Contact Info) Description 12/21/2020 Procedure Pass [facility]In[facility]iology [address] [place] [address] Social History Tobacco Use Types Packs/Day Years [...] AM EDT Trey Cardona i, RN * [place] Suicide Severity Rating Scale (Screener/Recent Self-Report) Question [...] documented as of this encounter Care Teams Sterile Process Coordinator Relationship Specialty Start Date End Date James Trimble MD [address] [place] [address] [address] [place] [phone] [email or web address] PCP - General 03/16/17 documented as of this encounter Additional Source Comments The information contained in this document represents components of the legal health record. It is not the complete legal health record.[facility]
--- OUTSIDE RECORDS SUMMARY | 2024-11-27 12:26 | XMS_ITS | Encounter Summary ---
Author Organization [facility] Address [address] [place] [address] Phone Care Team Providers Care Tool Grinder Set Up Operator Gear Name Role Phone James Grant MD Primary Care Provider Unav ailable Reason for Visit * Reason Comments Med Refill Encounter Details Date Type Department Care Team (Late st Contact Info) Description 12/14/2022 Refill [facility] [address] [place] [address] Osmany Leung MD Social History [...] filedocumented in this encounter Care Teams Tool Grinder Set Up Operator Gear Relationship Specialty Start Date End Date James Grant MD PCP - General 03/23/20 documented as of this encounter
--- OUTSIDE RECORDS SUMMARY | 2024-11-27 12:26 | XMS_ITS | Encounter Summary ---
Author Organization [employer] Address [address] [facility] 7t [place] [address] Care Team Providers Care Online Affiliate Marketing Manager Name Role Phone James Flores MD Primary Care Provide r Reason for Visit * Reason Comments Med Refill Encounter Details Date Type Department Care Team (Late st Contact Info) Description 08/27/2023 Refill [facility] [address] [place] [address] Name, MD Loki [address] [place] [address] Gastroesophageal reflux disease without esophagitis Social History [...] t he electric, gas, oil or water [employer] threatened to shut off services in your [...] Description 12/10/2024 9:15 AM EDT Office Visit [facility] [address] [place] [address] James Flores MD [address] [place] [address] documented as of this encounter Visit Diagnoses Diagnosis Gastroesophageal reflux disease without esophagitis Esophageal reflux documented in this encounter Care Teams Online Affiliate Marketing Manager Relationship Specialty Start Date End Date James Flores MD [address] [place] [address] PCP - General Internal Medicine 02/04/14 documented as of this encounter
== END 2024-11-27 10:49 | disposition home or self-care (01) ==
LOC: HO.HKA 10:13
PROVIDERS: PCP Internal Medicine; Visit Provider Internal Medicine Nephrology
DX: I10 Essential (primary) hypertension (principal); N18.31 Chronic kidney disease, stage 3a; E11.21 Type 2 diabetes mellitus with diabetic nephropathy; E83.52 Hypercalcemia
CPT/HCPCS: 99214

== ENCOUNTER → 2024-11-27 10:12 | Outpatient (BNVA) | payer OTHER, SELFPAY | PROVIDERS: PCP Internal Medicine; Visit Provider Internal Medicine Nephrology | DX: E11.22 Type 2 diabetes mellitus with diabetic chronic kidney disease (principal); I12.9 Hypertensive chronic kidney disease with stage 1 through stage 4 chronic kidney disease, or unspecified chronic kidney disease; N18.31 Chronic kidney disease, stage 3a; E83.52 Hypercalcemia; E11.21 Type 2 diabetes mellitus with diabetic nephropathy | CPT/HCPCS: 99212 ==

== ENCOUNTER 2024-12-10 09:45 | Outpatient (REF) | payer OTHER, SELFPAY ==
--- OUTSIDE RECORDS SUMMARY | 2024-12-10 10:36 | XMS_ITS | Clinical Summary ---
Author Organization [facility] Address [address] [facility] [address] [place] [address] Phone Care Team Providers Care Corporate Legal Intern Name Role Phone James Trimble MD [...] Active ferrous sulfate 325 mg (65 mg [place] iron) tablet Take 325 mg by mouth [...] nebulizer at home does not see a sign shop supervisor. Considering home neb. ? Having difficulty using [...] (12/21/2020 6:13 AM EDT) HDL 49 mg/dL [facility] Comment: Interpretation <40 mg/dL: Low HDL cholesterol (major risk factor for CHD) Greater than or equal to 60 mg/dL: High HDL cholesterol ( negative risk factor for CHD) HDL - cholesterol is affected by a number of factors, e.g. smoking, excerise, hormones, sex and age. CHOLESTEROL 160 0 - 240 mg/dL [facility] TRIGLYCERIDES 109 30 - 160 mg/dL [facility] LDL 89 50 - 129 mg/dL [facility] Comment: LDL levels in terms of risk for coronary heart disease: <100 mg/dL: Optimal 100-129 mg/dL: Near or above optimal 130-159 mg/dL: Borderline high 160-189 mg/dL: High >190 mg/dL: Very High CARDIAC RISK RATIO 3.3 3.3 - 4.4 [facility] Blood 12/21/2020 6:13 AM EDT 12/21/2020 6:36 AM EDT us Avni Bernard MD LAB BLOOD ORDERABLES Fin al Result [facility] [address] [place] [address] from Last 3 Months or Most Recently Relevant to Health Maintenance Insurance MEDICARE REPLACEMENT [place] [address] MEDICARE REPLACEMENT MEDICARE REPLACEMENT MEDICARE REPLACEMENT MEDICARE REPLACEMENT MEDICARE REPLACEMENT Advance Directives For more information, please contact: [phone] (9AM - 5PM [facility], Monday-Monday) * Full Code (Latest Code Status on File) Date Activated Date Inactivated Comments 06/26/2021 2:17 PM Question Answer Comments Code Status Confirmed With: Patient * Full Code Date Activated Date Inactivated Comments 12/20/2020 7:48 PM 06/26/2021 2:17 PM Question Answer Comments Code Status Confirmed With: Patient Care Teams Corporate Legal Intern Relationship Specialty Start Date End Date James Trimble MD [address] [place] [address] [address] [place] [address] [email or web address] PCP - General 03/16/17 Additional Source Comments The information contained in this document represents components of the legal health record. It is not the complete legal health record.[facility]
--- OUTSIDE RECORDS SUMMARY | 2024-12-10 10:36 | XMS_ITS | Encounter Summary ---
Author Organization [facility] Address [address] [facility] [address] [place] [address] Phone Care Team Providers Care Internal Revenue Agent Name Role Phone James Trimble MD Primary Care Provide r Encounter Details Date Type Department Care Team (Late st Contact Info) Description 12/20/2020 Procedure Pass [facility], [address] [address] Social History Tobacco Use Types Packs/Day Years [...] AM EDT Trey Cardona i, RN * [place] Suicide Severity Rating Scale (Screener/Recent Self-Report) Question [...] documented as of this encounter Care Teams Internal Revenue Agent Relationship Specialty Start Date End Date James Trimble MD [address] [place] [address] [address] [place] [address] [email or web address] PCP - General 03/16/17 documented as of this encounter Additional Source Comments The information contained in this document represents components of the legal health record. It is not the complete legal health record.[facility]
--- OUTSIDE RECORDS SUMMARY | 2024-12-10 10:36 | XMS_ITS | Encounter Summary ---
Author Organization [facility] Address [address] [facility] [address] [place] [address] Phone Care Team Providers Care Grip Wrapper Name Role Phone James Trimble MD Primary Care Provide r Encounter Details Date Type Department Care Team (Late st Contact Info) Description 12/21/2020 Procedure Pass [facility] [address] [place] [address] Social History Tobacco Use Types Packs/Day Years [...] AM EDT Trey Cardona i, RN * [place] Suicide Severity Rating Scale (Screener/Recent Self-Report) Question [...] documented as of this encounter Care Teams Grip Wrapper Relationship Specialty Start Date End Date James Trimble MD [address] [place] [address] [address] [place] [address] [email or web address] PCP - General 03/16/17 documented as of this encounter Additional Source Comments The information contained in this document represents components of the legal health record. It is not the complete legal health record.[facility]
--- OUTSIDE RECORDS SUMMARY | 2024-12-10 10:36 | XMS_ITS | Encounter Summary ---
Author Organization [facility] Address [address] [facility] [address] [place] [address] Phone Care Team Providers Care Cloth Baler Name Role Phone James Trimble MD Primary Care Provide r Encounter Details Date Type Department Care Team (Late st Contact Info) Description 12/21/2020 Procedure Pass Non-Invasive Cardiology [address] [place] [address] Social History Tobacco Use Types Packs/Day Years [...] AM EDT Trey Cardona i, RN * [place] Suicide Severity Rating Scale (Screener/Recent Self-Report) Question [...] documented as of this encounter Care Teams Cloth Baler Relationship Specialty Start Date End Date James Trimble MD [address] [place] [address] [address] [place] [address] [email or web address] PCP - General 03/16/17 documented as of this encounter Additional Source Comments The information contained in this document represents components of the legal health record. It is not the complete legal health record.[facility]
--- OUTSIDE RECORDS SUMMARY | 2024-12-10 10:36 | XMS_ITS | Encounter Summary ---
Author Organization [facility] Address [address] [facility] [address] [place] [address] Phone Care Team Providers Care Research Editor Name Role Phone James Trimble MD Primary Care Provide r Encounter Details Date Type Department Care Team (Late st Contact Info) Description 01/25/2021 Procedure Pass [facility], Ct Scan - [address] [address] Social History Tobacco Use Types Packs/Day Years [...] 01/25/2021 12:53 PM Corinne Rodriguez, LISA * [place] Suicide Severity Rating Scale (Screener/Recent Self-Report) Question [...] as of this encounter Care Teams Research Editor Relationship Specialty Start Date End Date James Trimble MD [address] [place] [address] [place] [phone] PCP - General 03/16/17 documented as of this encounter Additional Source Comments The information contained in this document represents components of the legal health record. It is not the complete legal health record.[facility]
--- OUTSIDE RECORDS SUMMARY | 2024-12-10 10:36 | XMS_ITS | Encounter Summary ---
Author Organization [facility] Address [address] [place] [address] Phone Care Team Providers Care Trailer Truck Driver Name Role Phone James Grant MD Primary Care Provider Unav ailable Reason for Visit * Reason Comments Med Refill Encounter Details Date Type Department Care Team (Late st Contact Info) Description 12/14/2022 Refill [facility] [address] [place] [address] Osmany Leung MD Social History [...] on filedocumented in this encounter Care Teams Trailer Truck Driver Relationship Specialty Start Date End Date James Grant MD PCP - General 03/23/20 documented as of this encounter
--- OUTSIDE RECORDS SUMMARY | 2024-12-10 10:36 | XMS_ITS | Patient Health Record ---
Author Organization [facility] Address [address] [place] [address] Care Team Providers Care Chemist Proteins Name Role Phone Rudy Ashraf MD, James Primary Care Provide r Unavailable Moris Duron Jr Unavailable [phone] Reason For Referral No Information Plan Of Treatment No Information Insurance Providers Payer Name Payer Address Payer Phone Subscriber Number Group Number Insured Name Patient Relationship to Insured Coverage Start Date Coverage End Date MEDICARE OF [place] [address] [place] [id number] STEPHANI JOE Self - patient is the insured MEDICAID OF [facility] [address] [place] [address] [id number] STEPHANI JOE Self - patient is the insured
--- OUTSIDE RECORDS SUMMARY | 2024-12-10 10:36 | XMS_ITS | Clinical Summary ---
Author Organization [facility] Address 175 [place] [address] Phone Care Team Providers Care Dope Dry House Operator Name Role Phone Ruchi Ayala MD Primary [...] Description 11/08/2024 9:45 AM EDT Consult Orthopedic [facility] [address] [phone] Nii Frias DPM Nondisplaced fracture of proximal [...] Upcoming Encounters Date Type Department Care Team ([facility] Contact Info) Description 12/24/2024 9:30 AM EDT Office Visit [facility]opedic [facility] [address] [phone] Nii Frias DPM [address] [address] Health Maintenance Due Date Last Done Comments Breast Cancer Screening 1955 Colorectal Cancer Screening: Colonoscopy 1955 Diabetes: Annual Foot Exam 05/18/1965 Diabetes: Annual Retina Eye Exam 05/18/1965 Pneumococcal Vaccine: 50+ Years (1 of 2 - PCV) 05/18/1974 RSV Immunization Adult Patients (1 - Risk 60-74 years 1-dose series) 2015 Zoster Vaccines (3 of 3) 09/14/2021 07/20/2021, 08/11/2015 Depression Screening 03/13/2024 Falls Risk Assessment 11/05/2024 Hepatitis C Screening 11/05/2024 Medicare Annual Wellness Visit 11/05/2024 Osteoporosis Screening (Bone Density Screening) 11/05/2024 Social Influencers of Health Screening 11/05/2024 Diabetes: Annual Urine Albumin-Creatinine Ratio (uACR) 11/08/2024 COVID-19 Vaccine (3 - season) 2024 08/31/2020, [...] - Final from Last [address] [facility] MEDICARE Member Subscriber Plan / Payer (Ef fective 2022-Present) Name:Jayne Lane Relation to Subscriber:Self Name:Jayne Lane Payer ID:[id number] Group ID:[id number] Type:Not on file Address: [place] [address] [address] [address] Care Teams Dope Dry House Operator Relationship Specialty Start Date End Date Ruchi Ayala MD [address] [phone] PCP - General Internal Medicine 11/05/24
--- OUTSIDE RECORDS SUMMARY | 2024-12-10 10:36 | XMS_ITS | Encounter Summary ---
Author Organization [facility] Address [address] [facility] [address] [place] [address] Phone Care Team Providers Care Bottom Precipitator Operator Name Role Phone James Trimble MD Primary Care Provide r Encounter Details Date Type Department Care Team (Late st Contact Info) Description 12/20/2020 Procedure Pass [facility], Ct Scan - [address] [address] Social History Tobacco Use Types Packs/Day Years [...] AM EDT Trey Cardona i, RN * [place] Suicide Severity Rating Scale (Screener/Recent Self-Report) Question [...] documented as of this encounter Care Teams Bottom Precipitator Operator Relationship Specialty Start Date End Date James Trimble MD [address] [place] [address] [address] [place] [address] [email or web address] PCP - General 03/16/17 documented as of this encounter Additional Source Comments The information contained in this document represents components of the legal health record. It is not the complete legal health record.[facility]
--- OUTSIDE RECORDS SUMMARY | 2024-12-10 10:36 | XMS_ITS ---
Author Name Mr. Arlen Márquez Address [address] [place] [address] Phone [phone] [facility] Care Team Providers Care Sheet Rock Taper Name Role Phone Micah Judge Unavailable [phone] Reason for Referral Not Available Allergies, adverse [...] 2021-11-04 No Data Available OneTouch Delica Plus [id number] Miscellaneous TEST BLOOD SUGAR THREE OR FOUR [...] of Service Diagnosis/Co mplaint No Data Available [facility]2022 Type 2 diabetes mellitus wit h diabetic chronic kidney diseaseChronic kidney disease, stage 3bLong term (current) use of insulinMorbid (severe) obesity due to excess caloriesBody mass index (BMI) 40.0-44.9, adultOther specified health statusConstipation, unspecifiedProblems related to health literacyPrsnl hx of TIA (TIA), and cereb infrc w/o resid deficits No Data Available [facility] 07[place]2022 No Data Available [facility]20[place] No Data Available [facility] No Data Available [facility] No Data Available [facility] No Data Available [facility]2022 Morbid (severe) obesity due to excess caloriesBody mass index (BMI) 40.0-44.9, adultType 2 diabetes mellitus with diabetic chronic kidney diseaseChronic kidney disease, stage 3bPrsnl hx of TIA (TIA), and cereb infrc w/o resid deficitsOther specified health status No Data Available [facility] 07/[place]/2022 Vital Signs Date of Collection Vitals 2022-07-12 11:38:39 Height - 147.32 cmWe ight - 87.09 kgBody Mass Index (BMI) - 40.13 kg/m2 Social History Sex Female History of Procedures Procedures Service Procedure code Service date Servicing provider Phone# No Data Available [id number] 2022-07-12 No Data Available No Data Available [...] le No Data Available No Data Available [id number] 2022-07-22 No Data Available No Data Available [...]
--- OUTSIDE RECORDS SUMMARY | 2024-12-10 10:36 | XMS_ITS | Clinical Summary ---
Author Organization [facility] Address [address] [place] [address] Phone Care Team Providers Care Smart Energy Specialist Name Role Phone James Grant MD [...] patient's age to complete this topic Insurance [employer] Care Teams Smart Energy Specialist Relationship Specialty Start Date End Date James Grant MD PCP - General 03/23/20
[2024-12-10 12:35] LABS: Parathyroid Hormone Intact 71.3 pg/mL (8.7-77.1)
[2024-12-10 12:49] LABS: Anion Gap 11 (12-20); Blood Urea Nitrogen 25 mg/dL (9-16); Calcium 9.5 mg/dL (8.4-10.2); Carbon Dioxide 29 mmol/L (22-29); Chloride 109 mmol/L (96-108); Estimated Glomerular Filt Rate 35; Potassium 4.9 mmol/L (3.3-5.1); Sodium 144 mmol/L (135-145)
== END 2024-12-10 09:46 | disposition home or self-care (01) ==
LOC: HO.HHCL 09:45
PROVIDERS: PCP Internal Medicine; Referring Provider Internal Medicine Nephrology; Visit Provider Internal Medicine
DX: I12.9 Hypertensive chronic kidney disease with stage 1 through stage 4 chronic kidney disease, or unspecified chronic kidney disease (principal); E11.22 Type 2 diabetes mellitus with diabetic chronic kidney disease; N18.31 Chronic kidney disease, stage 3a; E83.52 Hypercalcemia; L65.9 Nonscarring hair loss, unspecified
CPT/HCPCS: 36415; 80051; 82306; 82310; 82565; 82784; 83970; 84443; 84520; 86334; 86335

== ENCOUNTER 2024-12-25 10:04 | Outpatient (AMB) | payer OTHER, SELFPAY ==
--- OUTSIDE RECORDS SUMMARY | 2024-12-24 09:30 | XMS_ITS | Encounter Summary ---
Author Organization [facility] Address [address] [place] [address] Care Team Providers Care Mapper Name Role Phone Ruchi Ayala MD Primary Care Provide r Reason for Visit * Reason Comments Foot/ankle Fracture Nondisplaced fractur e of proximal phalanx of left lesser toe(s), initial encounter for closed fracture * Consultation (Urgent) - Closed Specialty Diagnoses / Procedures Referred By Miguel t Referred To Contact Podiatry / Orthopaedic Surgery Diagnoses Nondisplaced fracture of proximal phalanx of left lesser toe(s), initial encounter for closed fracture Ruchi Ayala MD [address] [address] Phone: tel: fax: Nii Frias DPM [address] [address] Phone: tel: fax: Referral ID Status Reason Start Date Expiration Date V isits Requested Visits Authorized [id number] Closed Specialty Services Required 11/05/2024 11/05/2025 1 1 Encounter Details Date Type Department Care Team (Latest Contact Info) Description 12/24/2024 9:30 AM EDT Office Visit Orthopedic [facility] - [place] [address] [address] Nii Frias DPM [address] [address] Pain (Primary Dx); Closed nondisplaced fracture of proximal phalanx of lesser toe of left foot with delayed healing, subsequent encounter Social History Tobacco Use Types Packs/Day Years Used Date Smoking Tobacco: Never Assessed Comments Unknown Sex and Gender Information Value Date Recorded Sex Assigned at Not on file Legal Sex Female 12:51 PM EST Gender Identity Not on file Sexual Orientation Not on file documented as of this encounter Progress Notes * Nii Frias DPM - 12/24/2024 9:30 AM EDT Referring MD: Ruchi Ayala * Last PCP visit: 10/30/2024 IDENTIFIER: Ariana is a 69 y.o. year old female who presents for consultation. CC: Left foot pain HPI: 69-year-old female returns office with left foot 2nd and 5th toe pain. Patient had recent x-rays and suffered with previous fracture is nondisplaced. Patient been using her surgical shoe as directed.Patient continues to deal with swelling to the area. ROS: GENERAL: Pt denies nausea, fever, vomiting, [...] have been marked as taking for the 12/24/24 encounter (Office Visit) withNii Frias DPM. ALLERGIES: Acetaminophen, Amoxicillin, Chlorothiazide, Ciprofloxacin, [...] WNL. No muscle atrophy. Pain and swelling over the fifth digit and second digit to the left foot with pain on palpation DERMATOLOGICAL:.No masses or skin lesions noted. Normal skin temperature, normal skin turgor. BIOMECHANICS: STJ ROM wnl, MTJ ROM wnl, 1st MPJ ROM wnl. IMAGING: Continued fracture of the proximal phalanx of the fifth digit and the second proximal phalanx. No change in position or gapping. IMPRESSION: 1. Pain 2. Closed nondisplaced fracture of proximal phalanx of lesser toe of left foot with delayed healing, subsequent encounter PLAN: Pt was seen and examined, history reviewed. Patient continues to suffer with pain and swelling to the left 2nd and 5th toe and x-rays show continued radiolucency. Patient instructed to continue with the surgical shoe for another 6 weeks and return at that time for new x-rays and reevaluation of pain. If patient has decreased pain she may be converted to a wide set sneaker Nii Frias DPM documented in this encounter Plan of Treatment Upcoming Encounters Date Type Department Care Team (Late st Contact Info) Description 02/03/2025 10:45 AM EST Office Visit Orthopedic Surgery - [place] [address] [phone] Nii Frias DPM [address] [address] Pending Results Name Type Priority Associated Diagnoses Date /Time XR Foot 3+ Views Left Imaging Routine Pain Nondisplaced fracture of proximal phalanx of left lesser toe(s), initial encounter for closed fracture 12/24/2024 9:46 AM EDT Scheduled Orders Name Type Priority Associated Diagnoses Orde r Schedule XR Foot 3+ Views Left Imaging Routine Pain Closed nondisplaced fracture of proximal phalanx of lesser toe of left foot with delayed healing, subsequent encounter Expected: 12/24/2024, Expires: 12/24/2025 documented as of this encounter Visit Diagnoses Diagnosis Pain- Primary Generalized pain Closed nondisplaced fracture of proximal phalanx of lesser toe of left foot with delayed healing, subsequent encounter documented in this encounter Care Teams Mapper Relationship Specialty Start Date End Date Ruchi Ayala MD [address] [place] [phone] PCP - General Internal Medicine 11/05/24 documented as of this encounter
--- NOTE | 2024-12-25 10:13 | HO.NEPHOV ---
Vital Signs 12/25/24 10:20 Height 5 ft 1 in Weight 170 lb 2 oz BMI 32.1 BP 132/70 Blood Pressure Location Lt brachial Position Sitting Pulse 76 Pulse Source Pulse Oximeter Pulse Oximetry (%) 96 Oxygen Delivery Method Room Air Intake Visit Reasons: 1mon f/u w/labs-LVM Pharmaceutical Salesperson Required: Yes Pharmaceutical Salesperson Language: Rack Pusher Services: Pharmaceutical Salesperson Offered & Declined ([facility] Pharmaceutical Salesperson services refused ) Accompanied by: Daughter Allergies morphine (Morphine) Allergy (Intermediate, Verified 12/25/24 10:20) TACHYCARDIA, ANXIETY oxycodone (Percocet) Allergy (Intermediate, Verified 12/25/24 10:20) Palpitations acetaminophen (From Percocet) Allergy (Verified 12/25/24 10:20) Palpitations prednisone (PREDNISONE) Adverse Reaction (Intermediate, Verified 12/25/24 10:20) ANXIETY HPI Comments Details: Jayne was seen in follow up for CKD and hypertension. She is 69 years of age who has longstanding diabetes mellitus with neuropathy, hypertension who also had CAD needing PCI and CVA. She is known to have aortic stenosis. She denies any chest pain, shortness of breath or pedal edema. Her hemoglobin A1c has been on the high side. Her BMI is high. She denies any hepatitis, drug use, excessive nonsteroidal anti-inflammatory medication intake, renal calculus, new bone or back pain. Her recent serum creatinine was marginally better than before. [facility] Medical History Primary osteoarthritis of left knee Acute pain of both knees Tinea corporis Tubular adenoma Non-rheumatic aortic stenosis Hemorrhoids Diverticulosis of colon History of CVA (cerebrovascular accident) Hyperkalemia Cobalamin deficiency CKD (chronic kidney disease) Iron deficiency anemia Temporal arteritis Idiopathic peripheral neuropathy Arthritis ELLIE (obstructive sleep apnea) Obesity Abnormal Pap smear of cervix Osteoporosis Goiter Hyperparathyroidism Hypercalcemia Vitamin D deficiency HLD (hyperlipidemia) HTN (hypertension) T2DM (type 2 diabetes mellitus) On beta anurag at home Chronic constipation Diabetes Anemia GERD (gastroesophageal reflux disease) Sleep apnea Asthma CAD (coronary artery disease) Angina pectoris HTN (hypertension) Surgical History Hx of heart artery stent Hx of cholecystectomy History of esophagogastroduodenoscopy (EGD) H/O colonoscopy Family History Father Liver problem Mother Diabetes Obesity Social History Household Members Other:: With Housing: House Alcohol intake: never Patient Tobacco Use Status: Never used Tobacco Current occupational status: disabled Sexual orientation: Straight/Heterosexual Gender identity: Female Review of Systems Const All systems reviewed & are unremarkable except as noted in HPI and below Physical Exam Vital Signs: Last Vital Signs Pulse 76 12/25/24 10:20 BP 132/70 12/25/24 10:20 Pulse Ox 96 12/25/24 10:20 Oxygen Delivery Method Room Air 12/25/24 10:20 BMI result Body Mass Index 32.1 Const General: comfortable and no acute distress Orientation/consciousness: patient oriented x3 HEENT Head: Yes normocephalic Mouth: Normal oral and palatal mucosa present Eyes EOM: EOMs intact bilaterally Neck Neck: Yes supple Resp Auscultation: clear to auscultation bilaterally Cardio Jugular venous distension: no JVD Rate: regular rate GI Palpation (GI): Soft to palpation Auscultation: normal bowel sounds General: Yes no CVA tenderness Back/Spine/Pelvis Back: no CVA tenderness Skin General skin exam: no rashes or lesions noted Neuro General: patient oriented x3 and moves all extremities Extrem General: Yes no pedal edema Results Reviewed Nephrology Results: Sodium, (135-145) 144 mmol/L 12/10/24 Potassium, (3.3-5.1) 4.9 mmol/L 12/10/24 Chloride, (96-108) 109 mmol/L H 12/10/24 Carbon Dioxide, (22-29) 29 mmol/L 12/10/24 BUN, (9-16) 25 mg/dL H 12/10/24 Creatinine, (0.5-1.4) 1.48 mg/dL H 12/10/24 Calcium, (8.4-10.2) 9.5 mg/dL Δ 12/10/24 PTH Intact, (8.7-77.1) 71.3 pg/mL 12/10/24 Renal US 06/16/23 Assessment & Plan Assessment & Plan (1) CKD stage 3a, GFR 45-59 ml/min: Code(s): N18.31 - Chronic kidney disease, stage 3a Category: Medical (2) Diabetic nephropathy: Code(s): E11.21 - Type 2 diabetes mellitus with diabetic nephropathy Category: Medical Qualifiers: Diabetes mellitus type: type 2 Qualified Code(s): E11.21 - Type 2 diabetes mellitus with diabetic nephropathy (3) HTN (hypertension): Code(s): I10 - Essential (primary) hypertension Category: Medical Qualifiers: Hypertension type: unspecified Qualified Code(s): I10 - Essential (primary) hypertension Plan Jayne has CKD 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 She has high BMI. She has proteinuria. Her blood sugar needs to be better controlled. Her blood pressure needs to be maintained at less than 130/80 mmHg. she may need a renal biopsy. I plan to add SGLT2 inhibitor and maximize the dose of it along with introduction of ROMI inhibitor. She should avoid nonsteroidal anti-inflammatories and maintain good hydration. She is on Ozempic. She needs to lose more weight. Further management is pending evolving data. Answered all questions and follow-up was given. Orders: Orders Creatinine 3 Months E11.21 - Type 2 diabetes mellitus with diabetic nephropathy, N18.31 - Chronic kidney disease, stage 3a Blood Urea Nitrogen 3 Months E11.21 - Type 2 diabetes mellitus with diabetic nephropathy, N18.31 - Chronic kidney disease, stage 3a Electrolytes 3 Months E11.21 - Type 2 diabetes mellitus with diabetic nephropathy, N18.31 - Chronic kidney disease, stage 3a Coding Level of Care Code Est Pt Level 4 (38639) Diagnoses CKD stage 3a, GFR 45-59 ml/min N18.31 Diabetic nephropathy associated with type 2 diabetes mellitus E11.21 Diabetes mellitus type: type 2 Hypertension, unspecified type I10 Hypertension type: unspecified
[2024-12-25 10:20] VITALS: BP 132/70; PULSE 76; O2SAT 96; BMI 32.1
--- OUTSIDE RECORDS SUMMARY | 2024-12-25 11:47 | XMS_ITS | Encounter Summary ---
Author Organization [employer] Address [address] [facility] [address] [place] [address] Care Team Providers Care Subsea Engineer Name Role Phone James Flores MD Primary Care Provide r Encounter Details Date Type Department Care Team (Late st Contact Info) Description 08/22/2022 Orders Only [facility] MED & PEDS [address] [place] [address] Jaja Hammond LPN Social History Tobacco Use [...] on filedocumented in this encounter Care Teams Subsea Engineer Relationship Specialty Start Date End Date James Flores MD [address] [place] [address] PCP - General Internal Medicine 02/04/14 documented as of this encounter
--- OUTSIDE RECORDS SUMMARY | 2024-12-25 11:47 | XMS_ITS | Encounter Summary ---
Author Organization [employer] [facility] Address [address] [facility] [address] [place] [address] Care Team Providers Care Ophthalmic Medical Technician Name Role Phone James Flores MD Primary Care Provide r Encounter Details Date Type Department Care Team (Late st Contact Info) Description 06/14/2022 Orders Only [facility] MED & PEDS [address] [place] [address] Jaja Hammond LPN Social History Tobacco Use [...] filedocumented in this encounter Care Teams Ophthalmic Medical Technician Relationship Specialty Start Date End Date James Flores MD [address] [place] [address] PCP - General Internal Medicine 02/04/14 documented as of this encounter
--- OUTSIDE RECORDS SUMMARY | 2024-12-25 11:48 | XMS_ITS | Patient Health Record ---
Author Organization [facility] Address [address] [place] [address] Care Team Providers Care Sports Book Writer Name Role Phone Rudy Ashraf MD, James Primary Care Provide r Unavailable Moris Duron Jr Unavailable Reason For Referral No Information Plan Of Treatment No Information Insurance Providers Payer Name Payer Address Payer Phone Subscriber Number Group Number Insured Name Patient Relationship to Insured Coverage Start Date Coverage End Date MEDICARE OF [place] [address] [place] [id number] [phone] [id number] STEPHANI JOE Self - patient is the insured MEDICAID OF [facility] [address] [place] [address] [id number] STEPHANI JOE Self - patient is the insured
--- OUTSIDE RECORDS SUMMARY | 2024-12-25 11:48 | XMS_ITS | Encounter Summary ---
Author Organization [employer] Address [address] [facility] 7t [place] [address] Care Team Providers Care Cyber Transport Systems Specialist Name Role Phone James Flores MD Primary Care Provide r Reason for Visit * Reason Comments Med Refill Encounter Details Date Type Department Care Team ([facility] st Contact Info) Description 03/12/2023 Refill [facility] MEDICINE [address] [place] [address] James Flores MD 230 [place] [address] Chronic anemia Social History Tobacco Use Types [...] t he electric, gas, oil or water [employer] threatened to shut off services in your [...] anemia documented in this encounter Care Teams Cyber Transport Systems Specialist Relationship Specialty Start Date End Date James Flores MD [address] [place] [address] PCP - General Internal Medicine 02/04/14 documented as of this encounter
--- OUTSIDE RECORDS SUMMARY | 2024-12-25 11:48 | XMS_ITS | Clinical Summary ---
Author Organization [facility] Address [address] [facility] [address] [place] [address] Phone Care Team Providers Care Coil Shaper Name Role Phone James Trimble MD Primary [...] Active ferrous sulfate 325 mg (65 mg [place] iron) tablet Take 325 mg by mouth [...] nebulizer at home does not see a cardiothoracic surgeon. Considering home neb. ? Having difficulty using [...] COLONOSCOPY 05/18/2000 RSV VACCINE (1 - Risk 50-74 years 1-dose series) 05/18/2005 ZOSTER VACCINES (2 of 3) 12/15/2015 10/20/2015 [...] (12/21/2020 6:13 AM EDT) HDL 49 mg/dL [facility] Comment: Interpretation <40 mg/dL: Low HDL cholesterol (major risk factor for CHD) Greater than or equal to 60 mg/dL: High HDL cholesterol ( negative risk factor for CHD) HDL - cholesterol is affected by a number of factors, e.g. smoking, excerise, hormones, sex and age. CHOLESTEROL 160 0 - 240 mg/dL [facility] TRIGLYCERIDES 109 30 - 160 mg/dL [facility] LDL 89 50 - 129 mg/dL [facility] Comment: LDL levels in terms of risk for coronary heart disease: <100 mg/dL: Optimal 100-129 mg/dL: Near or above optimal 130-159 mg/dL: Borderline high 160-189 mg/dL: High >190 mg/dL: Very High CARDIAC RISK RATIO 3.3 3.3 - 4.4 [facility] Blood 12/21/2020 6:13 AM EDT 12/21/2020 6:36 AM EDT us Avni Bernard MD LAB BLOOD ORDERABLES Fin al Result [facility] [address] [place] [address] from Last 3 Months or Most Recently Relevant to Health Maintenance Insurance MEDICARE REPLACEMENT [place] [id number] MEDICARE REPLACEMENT MEDICARE REPLACEMENT MEDICARE REPLACEMENT MEDICARE REPLACEMENT MEDICARE REPLACEMENT Advance Directives For more information, please contact: [phone] (9AM - 5PM [facility], Monday-Monday) * Full Code (Latest Code Status on File) Date Activated Date Inactivated Comments 06/26/2021 2:17 PM Question Answer Comments Code Status Confirmed With: Patient * Full Code Date Activated Date Inactivated Comments 12/20/2020 7:48 PM 06/26/2021 2:17 PM Question Answer Comments Code Status Confirmed With: Patient Care Teams Coil Shaper Relationship Specialty Start Date End Date James Trimble MD [address] [place] [address] [address] [place] [address] [email or web address] PCP - General 03/16/17 Additional Source Comments The information contained in this document represents components of the legal health record. It is not the complete legal health record.[facility]
--- OUTSIDE RECORDS SUMMARY | 2024-12-25 11:48 | XMS_ITS ---
Author Name Mr. Arlen Márquez Address [address] [place] [address] Phone [phone] [facility] Care Team Providers Care Shower Doors And Panels Fabricator Name Role Phone Micah Judge Unavailable [phone] Reason for Referral Not Available Allergies, adverse [...] 2021-11-04 No Data Available OneTouch Delica Plus [id number] Miscellaneous TEST BLOOD SUGAR THREE OR FOUR [...] of Service Diagnosis/Co mplaint No Data Available [facility] 07[place]12[place]2022 Type 2 diabetes mellitus wit h diabetic chronic kidney diseaseChronic kidney disease, stage 3bLong term (current) use of insulinMorbid (severe) obesity due to excess caloriesBody mass index (BMI) 40.0-44.9, adultOther specified health statusConstipation, unspecifiedProblems related to health literacyPrsnl hx of TIA (TIA), and cereb infrc w/o resid deficits No Data Available [facility] [place] 07/12/2022 No Data Available [facility] [place] 07/12/2022 No Data Available [facility] [place] 07/12/2022 No Data Available [facility] [place] 07/12/2022 No Data Available [facility] [place] 07/12/2022 No Data Available [facility] [place] 07/22/2022 Morbid (severe) obesity due to excess caloriesBody mass index (BMI) 40.0-44.9, adultType 2 diabetes mellitus with diabetic chronic kidney diseaseChronic kidney disease, stage 3bPrsnl hx of TIA (TIA), and cereb infrc w/o resid deficitsOther specified health status No Data Available [facility] [place] 07/22/2022 Vital Signs Date of Collection Vitals 2022-07-12 11:38:39 Height - 147.32 cmWe ight - 87.09 kgBody Mass Index (BMI) - 40.13 kg/m2 Social History Sex Female History of Procedures Procedures Service Procedure code Service date Servicing provider Phone# No Data Available [id number] 2022-07-12 No Data Available No Data Available [...] le No Data Available No Data Available [id number] 2022-07-22 No Data Available No Data Available [...]
--- OUTSIDE RECORDS SUMMARY | 2024-12-25 11:48 | XMS_ITS | Encounter Summary ---
Author Organization [facility] Address [address] [facility] [address] [place] [address] Phone Care Team Providers Care Senior Production Planner Name Role Phone James Trimble MD Primary Care Provide r Encounter Details Date Type Department Care Team (Late st Contact Info) Description 12/21/2020 Procedure Pass [facility]-Invasive Cardiology [address] [place] [address] Social History Tobacco Use Types Packs/Day Years [...] AM EDT Trey Cardona i, RN * [place] Suicide Severity Rating Scale (Screener/Recent Self-Report) Question Answer Date of Assessment Author 1. Wish to be (Past 1 Month) No 12/21/2020 5:00 AM EDT Trey Alonso RN 2. Non-Specific Active Suicidal Thoughts (Past 1 Month) No 12/21/2020 5:00 AM EDT Trey Alonso RN 6. Suicidal Behavior (Lifetime) No 12/21/2020 5:00 AM EDT Kacey Alonso RN documented as of this encounter [...] as of this encounter Care Teams Senior Production Planner Relationship Specialty Start Date End Date James Trimble MD [address] [place] [address] [address] [place] [address] [email or web address] PCP - General 03/16/17 documented as of this encounter Additional Source Comments The information contained in this document represents components of the legal health record. It is not the complete legal health record.[facility]
--- OUTSIDE RECORDS SUMMARY | 2024-12-25 11:48 | XMS_ITS | Encounter Summary ---
Author Organization [employer] Address [address] [facility] [address] 7t [place] [address] Care Team Providers Care Spinner Hand Name Role Phone James Flores MD Primary Care Provide r Encounter Details Date Type Department Care Team (Late st Contact Info) Description 01/09/2023 Orders Only [facility] P[facility]S [address] [place] [address] Jaja Hammond LPN Social History Tobacco Use [...] on filedocumented in this encounter Care Teams Spinner Hand Relationship Specialty Start Date End Date James Flores MD [address] [place] [address] PCP - General Internal Medicine 02/04/14 documented as of this encounter
--- OUTSIDE RECORDS SUMMARY | 2024-12-25 11:48 | XMS_ITS | Clinical Summary ---
Author Organization [address] [facility] Address [address] [place] [address] Phone Care Team Providers Care Radiology Manager Name Role Phone Ruchi Ayala MD Primary Care Provide r Allergies Active Allergy Reactions Criticality Noted Date Comments Acetaminophen 04/12/2013 Amoxicillin 05/10/2012 Chlorothiazide 05/10/2012 Ciprofloxacin 05/10/2012 Codeine 05/10/2012 Diphenhydramine 05/10/2012 Morphine Other,Palpitations Low 04/12/2013 Nitrofurantoin 05/10/2012 Other 11/08/2024 Oxycodone Palpitations Low 04/12/2013 Listed previously as Percocet allergy but takes Tylenol regularly Oxycodone-Acetaminophen Other 07/09/2017 Sulfa (Sulfonamide Antibiotics) 05/10/2012 Vancomycin 05/10/2012 Medications No known medications Encounters Date Type Department Care Team Description 12/24/2024 9:30 AM EDT Office Visit Orthopedic Surgery [facility] [address] [phone] Nii Frias DPM Pain (Primary Dx); Closed nondisplaced fracture of proximal phalanx of lesser toe of left foot with delayed healing, subsequent encounter 11/08/2024 9:45 AM EDT Consult Orthopedic [facility] [address] [phone] Nii Frias DPM Nondisplaced fracture of proximal [...] AM EST Office Visit Orthopedic Surgery - [place] [address] [facility] 250 [place] [phone] Nii Frias, DPTwan [address] [facility] 250 [place] [address] Health Maintenance Due Date Last Done Comments Breast Cancer Screening 1955 Colorectal Cancer Screening: Colonoscopy 1955 Diabetes: Annual Foot Exam 05/18/1965 Diabetes: Annual Retina Eye Exam 05/18/1965 Pneumococcal Vaccine: 50+ Years (1 of 2 - PCV) 05/18/1974 RSV Immunization Adult Patients (1 - Risk 50-74 years 1-dose series) 05/18/2005 Zoster Vaccines (3 of 3) 09/14/2021 07/20/2021, 0811/2015 Depression Screening 03/13/2024 Falls Risk Assessment 11/05/2024 Hepatitis C Screening 11/05/2024 Medicare Annual Wellness Visit 11/05/2024 Osteoporosis Screening (Bone Density Screening) 11/05/2024 Social Influencers of Health Screening 11/05/2024 Diabetes: Annual Urine Albumin-Creatinine Ratio (uACR) 11/08/2024 COVID-19 Vaccine ( - season) 2024 08/31/2020, 08/01/2020 Influenza Vaccine (#1) 2024 , 11/23/2022, 12/09/2021, Additional history exists Diabetes: Blood Sugar Control Test (HGBA1C) 06/09/2025 12/10/2024, 10/31/2024, 09/03/2024 Diabetes: Annual GFR (Glomerular Filtration [...] alignment of the digit within normal limits us Nii Frias DPTwan IMG XR PROCEDURES Edited Re sult - Final from Last 3 Months Insurance [facility] MEDICARE Member Subscriber Plan / Payer (Ef fective 2022-Present) Name:Jayne Lane Relation to Subscriber:Self Name:Jayne Lane Payer ID:[id number] Group ID:[id number] Type:Not on file Address: [place] [address] [address] [phone] Care Teams Radiology Manager Relationship Specialty Start Date End Date Ruchi Ayala MD [address] [place] [phone] PCP - General Internal Medicine 11/05/24
--- OUTSIDE RECORDS SUMMARY | 2024-12-25 11:48 | XMS_ITS | Encounter Summary ---
Author Organization [employer] Address [address] [facility] 7t [place] [address] Care Team Providers Care Phlebotomy Services Representative Name Role Phone James Flores MD Primary Care Provide r Reason for Visit * Reason Comments Med Refill Encounter Details Date Type Department Care Team (Late st Contact Info) Description 09/04/2023 Refill [facility] MEDICINE [address] [place] [address] Name, MD Loki [address] [place] [address] Gastroesophageal reflux disease without esophagitis Social History [...] t he electric, gas, oil or water [employer] threatened to shut off services in your [...] reflux documented in this encounter Care Teams Phlebotomy Services Representative Relationship Specialty Start Date End Date James Flores MD [address] [place] [id number] PCP - General Internal Medicine 02/04/14 documented as of this encounter
--- OUTSIDE RECORDS SUMMARY | 2024-12-25 11:48 | XMS_ITS | Encounter Summary ---
Author Organization [facility] Address [address] [facility] [address] [place] [address] Phone Care Team Providers Care Director Hardware Name Role Phone James Trimble MD Primary Care Provide r Encounter Details Date Type Department Care Team (Late st Contact Info) Description 12/20/2020 Procedure Pass [facility], [address] [address] Social History Tobacco Use Types Packs/Day Years [...] AM EDT Trey Cardona i, RN * [place] Suicide Severity Rating Scale (Screener/Recent Self-Report) Question [...] as of this encounter Care Teams Director Hardware Relationship Specialty Start Date End Date James Trimble MD [address] [place] [address] [address] [place] [address] [email or web address] PCP - General 03/16/17 documented as of this encounter Additional Source Comments The information contained in this document represents components of the legal health record. It is not the complete legal health record.[facility]
--- OUTSIDE RECORDS SUMMARY | 2024-12-25 11:48 | XMS_ITS | Encounter Summary ---
Author Organization [employer] Address [address] [facility] 7[address] [place] [address] Care Team Providers Care Assistant Sales Center Manager Name Role Phone James Flores MD Primary Care Provide r Reason for Visit * Reason Comments Med Refill Encounter Details Date Type Department Care Team (Late st Contact Info) Description 08/21/2022 Refill [facility] 230 [place], [place] [phone] James Flores MD 230 [place], [place] [phone] Social History Tobacco Use Types Packs/Day Years [...] filedocumented in this encounter Care Teams Assistant Sales Center Manager Relationship Specialty Start Date End Date James Flores MD [address] [place], [place] [phone] PCP - General Internal Medicine 02/04/14 documented as of this encounter
--- OUTSIDE RECORDS SUMMARY | 2024-12-25 11:48 | XMS_ITS | Encounter Summary ---
Author Organization [facility] Address [address] [facility] [address] [place] [address] Phone Care Team Providers Care Housing Inspectors Name Role Phone James Trimble MD Primary Care Provide r Encounter Details Date Type Department Care Team (Late st Contact Info) Description 01/25/2021 Procedure Pass [facility] [place], Ct Scan - [address] [address] Social History Tobacco Use Types Packs/Day Years [...] 01/25/2021 12:53 PM Corinne Rodriguez, LISA * [place] Suicide Severity Rating Scale (Screener/Recent Self-Report) Question [...] documented as of this encounter Care Teams Housing Inspectors Relationship Specialty Start Date End Date James Trimble MD [address] [place] [address] [place] [phone] PCP - General 03/16/17 documented as of this encounter Additional Source Comments The information contained in this document represents components of the legal health record. It is not the complete legal health record.[facility]
--- OUTSIDE RECORDS SUMMARY | 2024-12-25 11:48 | XMS_ITS | Encounter Summary ---
Author Organization [employer] Address [address] [facility] 7t [place] [address] Care Team Providers Care Power Digger Operator Name Role Phone James Flores MD Primary Care Provide r Reason for Visit * Reason Comments Med Refill Encounter Details Date Type Department Care Team (Late st Contact Info) Description 08/27/2023 Refill [facility] MEDICINE [address] [place] [address] Name, MD Loki [address] [place] [address] Gastroesophageal reflux disease without esophagitis Social History [...] t he electric, gas, oil or water [employer] threatened to shut off services in your [...] reflux documented in this encounter Care Teams Power Digger Operator Relationship Specialty Start Date End Date James Flores MD [address] [place] [address] PCP - General Internal Medicine 02/04/14 documented as of this encounter
--- OUTSIDE RECORDS SUMMARY | 2024-12-25 11:48 | XMS_ITS | Encounter Summary ---
Author Organization [employer] Address [address] [facility] 7t [place] [address] Care Team Providers Care Venetian Blind Installer Name Role Phone James Flores MD Primary Care Provide r Encounter Details Date Type Department Care Team ([facility] st Contact Info) Description 01/11/2024 Telephone [facility] MEDICINE [address] [place], [place] [phone] James Flores MD 230 [place], [place] [phone] Social History Tobacco Use Types Packs/Day Years [...] on filedocumented in this encounter Care Teams Venetian Blind Installer Relationship Specialty Start Date End Date James Flores MD [address] [place] [address] PCP - General Internal Medicine 02/04/14 documented as of this encounter
--- OUTSIDE RECORDS SUMMARY | 2024-12-25 11:48 | XMS_ITS | Encounter Summary ---
Author Organization [employer] Address [address] [facility] 7t [place] [address] Care Team Providers Care Steamer Blocker Name Role Phone James Flores MD Primary Care Provide r Reason for Visit * Reason Onset Date Comments Durable Medical Equipment 09/27/2023 Encounter Details Date Type Department Care Team (Late st Contact Info) Description 09/27/2023 Telephone [facility] MEDICINE 230 [place] [address] James Flores MD 230 [place], [place] [phone] Durable Medical Equipment Social History Tobacco Use [...] 1 flip pillow DME Please contact at [phone] * Telephone Encounter - Fernando Christie - 09/27/2023 2:40 PM EDT Tc from pt 10 in 1 flip pillow due to issues sleeping. Pt would like script to be faxed to [facility] If any questions you can contact pt at [phone]. documented in this encounter Plan of Treatment Not on file documented as of this encounter Visit Diagnoses Not on filedocumented in this encounter Care Teams Steamer Blocker Relationship Specialty Start Date End Date James Flores MD [address] [place] [address] PCP - General Internal Medicine 02/04/14 documented as of this encounter
--- OUTSIDE RECORDS SUMMARY | 2024-12-25 11:48 | XMS_ITS | Encounter Summary ---
Author Organization [employer] Address [address] [facility] [address] 7t [place] [address] Care Team Providers Care Dipper Fish Name Role Phone James Flores MD Primary Care Provide r Reason for Visit * Reason Comments Med Refill Encounter Details Date Type Department Care Team (Late st Contact Info) Description 05/10/2024 Refill [facility] 230 [place] [address] Coco Montiel NP 230 [place] [address] Mild intermittent asthma without complication Social History [...] documented as of this encounter Care Teams Dipper Fish Relationship Specialty Start Date End Date James Flores MD 230 [place] [address] PCP - General Internal Medicine 02/04/14 documented as of this encounter
--- OUTSIDE RECORDS SUMMARY | 2024-12-25 11:48 | XMS_ITS | Encounter Summary ---
Author Organization [employer] Address [address] [facility] 7t [place] [address] Care Team Providers Care Game Programer Name Role Phone James Flores MD Primary Care Provide r Encounter Details Date Type Department Care Team ([facility] st Contact Info) Description 03/14/2023 Telephone [facility] [address] [place] [address] Adriana [place] Social History Tobacco Use [...] on filedocumented in this encounter Care Teams Game Programer Relationship Specialty Start Date End Date James Flores MD [address] [place] [address] PCP - General Internal Medicine 02/04/14 documented as of this encounter
--- OUTSIDE RECORDS SUMMARY | 2024-12-25 11:48 | XMS_ITS | Encounter Summary ---
Author Organization [employer] Address [address] [facility] 7t [place] [address] Care Team Providers Care Flea Market Seller Name Role Phone James Flores MD Primary Care Provide r Reason for Visit * Reason Onset Date Comments Call Back Request 08/07/2024 Appointment Request 08/07/2024 Encounter Details Date Type Department Care Team ([facility] st Contact Info) Description 08/07/2024 Telephone [facility] MEDICINE 230 [place] [address] James Flores MD 230 [place] [address] Call Back Request; Appointment Request Social History [...] request for telehealth visit Please return call [phone] documented in this encounter Plan of Treatment Not on file documented as of this encounter Visit Diagnoses Not on filedocumented in this encounter Additional Health Concerns Assessment Noted Time PHQ-9 Depression Total Score: 0 01/30/20 24 10:37 AM EST documented as of this encounter Care Teams Flea Market Seller Relationship Specialty Start Date End Date James Flores MD 230 [place] [address] PCP - General Internal Medicine 02/04/14 documented as of this encounter
--- OUTSIDE RECORDS SUMMARY | 2024-12-25 11:48 | XMS_ITS | Encounter Summary ---
Author Organization [facility] Address [address] [facility] [address] [place] [address] Phone Care Team Providers Care Satellite Technician Name Role Phone James Trimble MD Primary Care Provide r Encounter Details Date Type Department Care Team (Late st Contact Info) Description 12/20/2020 Procedure Pass [facility], Ct Scan - [address] [address] Social History Tobacco Use Types Packs/Day Years [...] AM EDT Trey Cardona i, RN * [place] Suicide Severity Rating Scale (Screener/Recent Self-Report) Question [...] documented as of this encounter Care Teams Satellite Technician Relationship Specialty Start Date End Date James Trimble MD [address] [place] [address] [address] [place] [address] [email or web address] PCP - General 03/16/17 documented as of this encounter Additional Source Comments The information contained in this document represents components of the legal health record. It is not the complete legal health record.[facility]
--- OUTSIDE RECORDS SUMMARY | 2024-12-25 11:49 | XMS_ITS | Encounter Summary ---
Author Organization [employer] Address [address] [facility] 7t [place] [address] Care Team Providers Care Coil Winder Name Role Phone James Flores MD Primary Care Provide r Reason for Visit * Reason Onset Date Comments Nurse Triage 03/18/2024 Encounter Details Date Type Department Care Team (Late st Contact Info) Description 03/18/2024 Telephone [facility] MEDICINE 230 [place] [address] James Flores MD 230 [place] [address] Nurse Triage Social History Tobacco Use Types [...] 03/18/2024 11:50 AM EST Triage call with [facility] [place] [id number]. Pt reports continual coughing with cold symptoms. Pt was seen in [facility] 02/29/24 for cough and exacerbation of asthma. Pt reports has been using inhaler and nebulizer as prescribed though not every day.Pt denies having difficulty breathing. Pt requests to see provider again due to continuation of cough and cold symptoms neg for fever. Pt is advised to return to [facility] today open till 8pm and Pt agreeswith this disposition. Pt is requesting what medication could be taken for cough , Pt is taking BP medications and is advised to ask provider when seen in [facility] and Pt agrees. Insurance is verified as [...] as of this encounter Care Teams Coil Winder Relationship Specialty Start Date End Date James Flores MD 230 [place] [address] PCP - General Internal Medicine 02/04/14 documented as of this encounter
--- OUTSIDE RECORDS SUMMARY | 2024-12-25 11:49 | XMS_ITS | Encounter Summary ---
Author Organization [employer] Address [address] [facility] 7t [place] [address] Care Team Providers Care Water/Wastewater Engineer Name Role Phone James Flores MD Primary Care Provide r Encounter Details Date Type Department Care Team ([facility] st Contact Info) Description 02/21/2022 Abstract [facility] MEDICINE [address] [place] [address] James Flores MD [address] [place] [address] Social History Tobacco Use Types Packs/Day Years [...] at all 02/21/2022 11:08 AM EST Yazmin Asharf M A Feeling down, depressed, or hopeless Not at all 02/21/2022 11:08 AM Yazmin Whaley M A Patient Health Questionnaire -2 Score 0 02/21/2022 11:08 AM Yazmin Whaley M A documented as of this encounter Plan of Treatment Not on file documented as of this encounter Procedures Procedure [...] on filedocumented in this encounter Care Teams Water/Wastewater Engineer Relationship Specialty Start Date End Date James Flores MD [address] [place] [id number] PCP - General Internal Medicine 02/04/14 documented as of this encounter
--- OUTSIDE RECORDS SUMMARY | 2024-12-25 11:49 | XMS_ITS | Encounter Summary ---
Author Organization [employer] Address [address] [facility] [address] [place] [address] Care Team Providers Care Finishing Wire Sawyer Name Role Phone James Flores MD Primary Care Provide r Encounter Details Date Type Department Care Team (Late st Contact Info) Description 04/13/2022 Orders Only [facility] MEDICINE [address] [place], [place] [phone] April Olsen LPN Social History Tobacco Use [...] on filedocumented in this encounter Care Teams Finishing Wire Sawyer Relationship Specialty Start Date End Date James Flores MD [address] [place] [address] PCP - General Internal Medicine 02/04/14 documented as of this encounter
--- OUTSIDE RECORDS SUMMARY | 2024-12-25 11:49 | XMS_ITS | Clinical Summary ---
Author Organization [facility] Address [address] [place] [address] Phone Care Team Providers Care Cable Respooler Name Role Phone James Grant MD Primary [...] patient's age to complete this topic Insurance [employer] Care Teams Cable Respooler Relationship Specialty Start Date End Date James Grant MD PCP - General 03/23/20
--- OUTSIDE RECORDS SUMMARY | 2024-12-25 11:49 | XMS_ITS | Encounter Summary ---
Author Organization [employer] Address [address] [facility] 7t [place] [address] Care Team Providers Care Back Office Medical Assistant Name Role Phone James Flores MD Primary Care Provide r Reason for Visit * Reason Onset Date Comments Durable Medical Equipment 07/30/2024 Encounter Details Date Type Department Care Team (Late st Contact Info) Description 07/30/2024 Telephone [facility] MEDICINE [address] [place] [address] James Flores MD [address] [place] [address] Durable Medical Equipment Social History Tobacco Use [...] enough money to get more: Never True 03/ Transportation Answer Date Recorded In the past [...] documented as of this encounter Care Teams Back Office Medical Assistant Relationship Specialty Start Date End Date James Flores MD [address] [place] [id number] PCP - General Internal Medicine 02/04/14 documented as of this encounter
--- OUTSIDE RECORDS SUMMARY | 2024-12-25 11:49 | XMS_ITS | Encounter Summary ---
Author Organization [employer] Address [address] [facility] 7[address] [place] [address] Care Team Providers Care Solar Installation Helper Name Role Phone James Flores MD Primary Care Provide r Encounter Details Date Type Department Care Team (Late st Contact Info) Description 05/11/2022 Telephone [facility] MEDICINE [address] [place], [place] [phone] James Flores MD [address] [place] [address] Social History Tobacco Use Types Packs/Day Years [...] on filedocumented in this encounter Care Teams Solar Installation Helper Relationship Specialty Start Date End Date James Flores MD [address] [place], [place] [phone] PCP - General Internal Medicine 02/04/14 documented as of this encounter
--- OUTSIDE RECORDS SUMMARY | 2024-12-25 11:49 | XMS_ITS | Encounter Summary ---
Author Organization [employer] Address [address] [facility] 7[address] [place] [address] Care Team Providers Care Circulation Representative Name Role Phone James Flores MD Primary Care Provide r Reason for Visit * Reason Comments Med Refill Encounter Details Date Type Department Care Team ([facility] st Contact Info) Description 12/22/2024 Refill [facility] [address] [place] [address] James Flores MD [address] [place] [address] Social History Tobacco Use Types Packs/Day Years [...] documented as of this encounter Care Teams Circulation Representative Relationship Specialty Start Date End Date James Flores MD [address] [place] [phone] PCP - General Internal Medicine 02/04/14 documented as of this encounter
--- OUTSIDE RECORDS SUMMARY | 2024-12-25 11:49 | XMS_ITS | Clinical Summary ---
Author Organization [employer] Address [address] [facility] [address] [place] [address] Care Team Providers Care Airborne Operations Superintendent Name Role Phone James Flores MD Primary Care Provide r Allergies Active Allergy Reactions Criticality Noted Date Comments Amoxicillin 05/10/2012 Chlorothiazide 05/10/2012 Ciprofloxacin 05/10/2012 Codeine 05/10/2012 Diphenhydramine 05/10/2012 Fosinopril Other reaction(s): elevated potassium Morphine Palpitations Low 04/12/2013 Nitrofurantoin 05/10/2012 Oxycodone 04/12/2013 Oxycodone-Acetaminophen 02/07/2024 Sulfa Antibiotics 05/10/2012 Vancomycin 05/10/2012 Medications Lancets misc Active OneTouch Verio test strip USE DIRECTED 023 Active ezetimibe (Zetia) 10 MG tablet Take 10 mg by mouth in the morning. 023 Active docusate sodium (Colace) 100 MG capsule TAKE 2 CAPSULES BY MOUTH EVERY DAY AT BEDTIME 023 Active Vitamin D High Potency 25 MCG (1000 UT) capsule Take 25 mcg by mouth in the morning. 023 Active Calcium Citrate-Vitamin D (Hubbell Calcium/Vitamin D) 200-6.25 MG-MCG tablet TAKE 2 TABLETS BY MOUTH TWICE DAILY IN THE MORNING AND EVENING 023 Active polycarbophil (Fiber-Lax) 625 MG tablet Take 1,250 mg by mouth. 024 Active pioglitazone (Actos) 30 MG tablet Take 30 mg by mouth in the morning. Active sodium zirconium cyclosilicate (Lokelma) 5 g packet MIX 1 PACKET WITH WATER AND DRINK TWICE A WEEK DIRECTED Active polyethylene glycol, PEG, 3350 (Glycolax) 17 [...] CHANGE EVERY 14 DAYS Active Continuous Glucose Powerhouse Mechanic (FreeStyle Collin 3 [place]) device USE DIRECTED Active bisacodyl (Dulcolax) 10 [...] needed). 90 mL 3 Active nystatin (Mycostatin) 711733 UNIT/GM powderIndication s:Tinea corporis Apply topically 2 times daily. 30 g 3 025 2025 Active Diclofenac Sodium 1 % gel Apply 4 g topically if needed in the morning, at noon, in the evening, and at bedtime (pain). 100 g Active senna (Senokot) 8.6 MG tablet Take 1 tablet (8.6 mg) by mouth if needed at bedtime for constipation. 120 tablet Active Blood Pressure kit 1 each 2 times daily. 1 kit 025 2025 Active amLODIPine (Norvasc) 5 MG tablet TAKE 1 TABLET BY MOUTH EVERY EVENING 30 tablet 5 025 Active loratadine (Claritin) 10 MG tabletIndication s:Seasonal allergies TAKE 1 TABLET BY MOUTH EVERY MORNING 30 tablet 5 025 Active BD Pen Needle Nneka U/F 32G X 4 MM miscIndications: Type 2 diabetes mellitus without complication, with long-term current use of insulin (HCC) USE DIRECTED FOUR TIMES DAILY 100 each 6 025 Active clopidogrel (Plavix) 75 MG tablet TAKE 1 TABLET BY MOUTH EVERY EVENING 90 tablet 3 025 Active atorvastatin (Lipitor) 80 MG tabletIndication s:Mixed hyperlipidemia TAKE 1 TABLET BY MOUTH AT BEDTIME 30 tablet 5 025 Active lidocaine (Lidoderm) 5 % patchIndications :Acute left-sided low back pain without sciatica Apply 1 patch topically Once per day. Remove & discard patch within 12 hours or as directed by MD. 30 patch 025 Active metoprolol tartrate (Lopressor) 50 MG tablet TAKE 1 TABLET BY MOUTH TWICE DAILY IN THE MORNING AND IN THE EVENING WITH FOOD 180 tablet 1 025 Active HumaLOG KWIKPEN 100 UNIT/ML injectionIndicat ions:Type 2 diabetes mellitus without complication, with long-term current use of insulin ([facility]) INJECT 6 TO 16 UNITS SUBCUTANEOUSLY DIRECTED [...] THE EVENING 90 tablet 1 025 Active Acetaminophen Extra Strength 500 MG tablet TAKE 1 TO 2 TABLETS BY MOUTH THREE TIMES DAILY NEEDED FOR PAIN 60 tablet 025 Active predniSONE (Deltasone) 1 MG tablet Take 1 mg by mouth 1 (one) time each day. Take 1 tablet by mouth every day with food or milk 025 Active Ozempic, 1 MG/DOSE, 4 MG/3ML solution pen-injector Inject 1 mg under the skin 1 (one) time per week. 09/24/2 025 Active Lantus SoloStar 100 UNIT/ML penIndications:T ype 2 diabetes mellitus without complication, with long-term current use of insulin (HCC) INJECT 35 UNITS SUBCUTANEOUSLY EVERY DAY 15 mL 2 Active Alcohol Swabs (Alcohol Prep) 70 % pads USE DIRECTED 100 each 11 025 Active Ozempic, 0.25 or 0.5 MG/DOSE, 2 MG/3ML solution pen-injector INJECT 0.25 MG SUBCUTANEOUSLY ONCE PER WEEK FOR 28 DAYS 023 2024 Discontinued(D ose adjustment) Alcohol Swabs (Alcohol Prep) 70 % pads USE DIRECTED 100 each 11 024 2024 Discontinued predniSONE (Deltasone) 20 MG tablet Take 40 mg by mouth at bedtime. 024 2024 Discontinued(T herapy completed) hydrOXYzine HCl (Atarax) 25 MG tabletIndication s:Anxiety Take 0.5 tablets (12.5 mg) by mouth every 8 (eight) hours if needed for anxiety. May take 1/2 to 1 tablet every 8 hours prn 30 tablet 025 2024 Discontinued(T herapy completed) meloxicam (Mobic) 15 MG tablet Take 1 tablet p.o./day x 2 weeks then 1 tablet/day as needed pain thereafter 30 tablet 025 2024 Discontinued(T herapy completed) acetaminophen (Tylenol) 500 MG tablet 31-2 tablets p.o. 3 times daily as needed pain- 60 tablet 025 2024 Discontinued insulin glargine (Lantus SoloStar) 100 UNIT/ML penIndications:T ype 2 diabetes mellitus without complication, with long-term current use of insulin (HCC) INJECT 35 UNITS SUBCUTANEOUSLY EVERY DAY 15 mL 2 025 2024 Discontinued Ferrous Sulfate (iron) 325 (65 Fe) MG tabletIndication s:Chronic anemia TAKE 1 TABLET BY MOUTH THREE TIMES DAILY IN THE MORNING, AT NOON, AND IN THE EVENING 90 tablet 1 025 2024 Discontinued Active Problems Problem Noted Date Diagnosed Date Hair loss 12/10/2024 Assessment & Plan (12/10/2024 9:34 AM EDT): Patient with c/o new onset of hair loss Plan: Obtain TSH Referral to Derm Closed fracture of phalanx o f left fifth toe with routine healing 10/30/2024 Assessment & Plan (12/10/2024 8:56 AM EDT): Pt with Hallux valgus deformity with mild osteoarthritis of the first MTP joint. Age-indeterminate fracture of the central diaphysis of the fifth proximal phalanx. Seen by Ortho who recommended a surgical show and immobilization 6 weeks Assessment & Plan (10/30/2024 7:47 PM EDT): X-ray ordered patient will be contacted with results Acute left-sided low back pain without sciatica 10/30/2024 Urinary incontinence 09/03/2024 Assessment & Plan (12/10/2024 8:58 AM EDT): Seen by Urology 11/05/2024 They recommended PRN follow up Assessment & Plan (09/03/2024 3:07 PM EDT): [...] x-rays of the right knee Temporal arteritis ([facility]) 07/23/2024 Assessment & Plan (12/10/2024 9:35 AM EDT): Patient seen by Dr Tyree sylvester on: C/o intractable headache, TA was in his differential, Pt's ESR came back high at: Pt was treated with Prednisone and referred for a TA biopsy that patient declined and Rheumatology ( pt has not been seen due to appointments being to far out. Pt did see an Medical Office Specialist that did not see any abnormalitites and Neurology Dr. Sandoval who's assessment was temporal arteritis.She is now on Prednisone 1 mg po daily Assessment & Plan (09/03/2024 11:37 AM EDT): Patient seen by Dr Tyree sylvester on: C/o intractable headache, TA was in his differential, Pt's ESR came back high at: Pt was treated with Prednisone and referred for a TA biopsy that patient declined and Rheumatology ( pt has not been seen due to appointments being to far out. Pt did see an Medical Office Specialist that did not see any abnormalitites and [...] to far out. Pt did see an Medical Office Specialist that did not see any abnormalitites and [...] acute injury to the right knee. 2. [id number] lateral compartment degenerative changes. Left: IMPRESSION: 1. [...] acute injury to the right knee. 2. [id number] lateral compartment degenerative changes. Left: IMPRESSION: 1. [...] 02/07/2024 Hypercalcemia 02/07/2024 Non-rheumatic aortic stenosis 02/07/2024 Age-related osteoporosis wit hout current pathological fracture 02/07/2024 Assessment & Plan (12/10/2024 9:37 AM EDT): DEXA appendicular skeleton 05/17/2024 IMPRESSION: Based on bone mineral density, and according to World Health Organization (WHO) criteria, the diagnosis is consistent with osteoporosis. Being followed by Endocrinology Assessment & Plan (05/30/2024 9:11 AM EDT): [...] Preventative health care 06/21/2022 Assessment & Plan (12/10/2024 9:36 AM EDT): Mammogram: NL : 11/04/2024 Pap Smear: 06/27/2023: Normal In 11/24/2016 ASCUS with positive HPV. Pt underwent Colpo with biopsies & ECC per COMPLIANCE PROGRAM MANAGER notes from 04/2017 Colonoscopy: 07/2022 Tubular adenoma repeat 3 years Vaccines: Flu shot: declines tdap: 05/31/2013 Dexa scan:. 04/28/2015 showed osteopenia Assessment & Plan (03/21/2024 9:20 AM EST): Routine physical exam today: within normal limits Mammogram: NL : 02/22/2023 Pap Smear: 06/27/2023: Normal In 11/24/2016 ASCUS with positive HPV. Pt underwent Colpo with biopsies & ECC per COMPLIANCE PROGRAM MANAGER notes from 04/2017 Colonoscopy: 07/2022 Tubular adenoma repeat 3 years Vaccines: Flu shot: tdap: 05/31/2013 Dexa scan:. 04/28/2015 showed osteopenia Assessment & Plan (01/30/2024 11:02 AM EST): Routine physical exam today: within normal limits Mammogram: NL : 02/22/2023 Pap Smear: 06/27/2023: Normal In 11/24/2016 ASCUS with positive HPV. Pt underwent Colpo with biopsies & ECC per COMPLIANCE PROGRAM MANAGER notes from 04/2017 Colonoscopy: 07/2022 Tubular adenoma repeat 3-5 years Vaccines: Flu shot: tdap: 05/31/2013 Dexa scan:. 04/28/2015 showed osteopenia Assessment & Plan (01/19/2023 1:43 PM EST): Mammogram: NL : 01/29/2021 Pap Smear: 11/24/2016 ASCUS with positive HPV. Pt underwent Colpo with biopsies & ECC per COMPLIANCE PROGRAM MANAGER notes from 04/2017 she was supposed to have a repeat with co test 04/2018 and if both neg then would f/u in 3 years records requested Colonoscopy: 07/2022 Tubular adenoma repeat 3-5 years Vaccines: Flu shot: tdap: 05/31/2013 Dexa scan:. 04/28/2015 showed osteopenia History of CVA (cerebrovascular accident) 2021 Assessment & Plan (05/30/2024 9:07 AM EDT): Hx of this Pt was admitted to [facility] from 10:12/31-12/22/2020 Patient presented to ED [...] Hx of this Pt was admitted to [facility] from 10:12/31-12/22/2020 Patient presented to ED [...] chronic kidney disease 01/31/2017 Assessment & Plan (12/10/2024 9:32 AM EDT): Pt here for follow up in terms of her Diabetes DM improving Under the care of endocrinology, last seen 11/13/2024 She is on a regimen of: Lantus 38 units sc q pm, Humalog Kwik pen, and Ozempic 1 mg q week She is back on Actos ( restarted by Endocrinology) Previously this was discontinued due to interaction with medications and off Victoza. Pt off Metformin due to CKD. A1c 12/10/2024 : 8.5 Eye exam per Endocrinology Note: 10/2023, Pt has cataracts, pending surgery Microalbumin checked on:06/21/2023 was: 216 Pt's trade clerk is thinking about reintroducing an ROMI inhibitor ( In the past she was off due to Hx of hyperkalemia associated with ROMI inhibitors.) Plan: continue to follow with Endocrinology. Foot check risk of zero Pt reports compliance with Plavix 4 months f/u with me Pt advised to: adhere to diabetic diet check your blood sugars regularly check your feet on a daily basis Assessment & Plan (09/03/2024 11:43 AM EDT): [...] on:06/21/2023 was: 216 Pt not on an ROIM inhibitor due to Hx of hyperkalemia associated [...] 11:27 AM EST): Seen at [facility] 01/28/2023 with an asthma exacerbation Doing better now CKD stage 3 secondary to diabetes 11/26/2015 Assessment & Plan (12/10/2024 9:07 AM EDT): Under the care of Nephrology, last seen 11/27/2024 per his note he recommended: blood pressure needs to be maintained at less than 130/80 mmHg. He mentioned she may need a renal biopsy. He planned to add SGLT2 inhibitor and maximize the dose of it along with introduction of ROMI inhibitor. I contacted Pharmacy who confirmed he has not done those 2 things yet. Assessment & Plan (09/03/2024 11:41 AM EDT): [...] Lipid profile Hypertension 11/24/2011 Assessment & Plan (12/10/2024 9:05 AM EDT): Patient with Hypertension currently controlled on a regimen of: Metoprolol 50 mg. BID and Amlodipine 5 mg po daily Unable to tolerate ACEs due to hyperkalemia Most recent electrolytes, Bun and Creatinine done on: Lab Results Component Value Date NA 145 11/20/2024 NA 143 10/31/2024 K 5.2 (H) 11/20/2024 K 4.2 10/31/2024 CL 107 11/20/2024 CL 106 10/31/2024 BUN 37 (H) 11/20/2024 BUN 26 (H) 10/31/2024 CREATININE 1.57 (H) 11/20/2024 CREATININE 1.38 10/31/2024 Plan: Continue current regimen Pt followed by Nephrology, although she has not been seen in a while, will schedule a follow up patient advised to adhere to a low sodium diet, encouraged about medication compliance, counseled about weight loss 4 month f/u Assessment & Plan (09/03/2024 11:41 AM EDT): [...] weight loss 4 month f/u Severe obesity (CMS/HCC) 11/24/2011 Assessment & Plan (05/30/2024 9:04 AM [...] as stent placement 2005 Assessment & Plan (12/10/2024 8:49 AM EDT): Pt is here for a f/u Known Hx of CAD s/p cardiac cath 02/21/2006 E.F 60 % [address] Melchor Weber put a ESTEPHANIE. she was under the care of Dr Dhaliwal, last seen on: 03/25/2015 His impression was that pt had CAD with 3 vessel disease and negative nuclear stress test at [facility] . Due to her Hx of CVA she is back on Plavix. Followed by Cardiology Dr Singh last seen 11/20/2024. He recommended to: repeat perfusion imaging study. Assessment & Plan (05/30/2024 9:01 AM EDT): Pt is here for a f/u Known Hx of CAD s/p cardiac cath 02/21/2006 E.F 60 % [address] Melchor Weber put a ESTEPHANIE. she was under the care of Dr Dhaliwal, last seen on: 03/25/2015 His impression was that pt had CAD with 3 vessel disease and negative nuclear stress test at [facility] . Due to her Hx of [...] disease and negative nuclear stress test at [facility] . Due to her recent CVA [...] disease and negative nuclear stress test at [facility] . Due to her recent CVA [...] Encounters Date Type Department Care Team Description 12/22/2024 Refill [facility] [address] [place] [address] James Flores MD 12/16/2024 Refill [facility] [address] [place] [address] James Flores MD Type 2 diabetes mellitus without complication, with long-term current use of insulin (HCC) 12/10/2024 9:15 AM EDT Office Visit [facility] [address] [place] [address] James Flores MD Type 2 diabetes mellitus with stage 3a chronic kidney disease, with long-term current use of insulin (CMS/HCC) (Primary Dx); Hypertension, unspecified type; CKD stage 3 secondary to diabetes (CMS/HCC); Coronary artery disease involving [place] coronary artery of [place] heart without angina pectoris; Closed fracture of phalanx of left fifth toe with routine healing; Urinary incontinence, unspecified type; Hair loss; Temporal arteritis (CMS/HCC); Age-related osteoporosis without current pathological fracture; Preventative health care 12/10/2024 Orders Only GENERIC EXTERNAL DATA DEPARTMENT Provider, Generic External Data 12/10/2024 Travel 12/09/2024 Telephone [facility] [address] [place] [address] James Flores MD chart prep 11/27/2024 Refill [facility] [address] [place] [address] James Flores MD 11/22/2024 Refill [facility] [address] [place] [address] James Flores MD Chronic anemia 11/20/2024 Orders Only GENERIC EXTERNAL DATA DEPARTMENT Provider, Generic External Data 11/20/2024 Refill [facility] [address] [place] [address] James Flores MD Type 2 diabetes mellitus without complication, with long-term current use of insulin (CMS/HCC) 11/19/2024 Refill [facility] [address] [place] [address] James Flores MD 11/14/2024 Abstract [facility] [address] [place] [address] Yazmin Ashraf [place] 11/13/2024 Orders Only GENERIC EXTERNAL DATA DEPARTMENT Provider, Generic External Data 11/01/2024 Results Follow-Up [facility] [address] [place] [address] Ruchi Ayala MD XR Foot 3+ Views Left 10/31/2024 Orders Only GENERIC EXTERNAL DATA DEPARTMENT Provider, Generic External Data 10/30/2024 6:00 PM EDT Office Visit [facility] [address] [place] [address] Ruchi Ayala MD Pain of toe of left foot (Primary Dx); Acute left-sided low back pain without sciatica 10/30/2024 Travel 10/16/[address] [address] James Flores MD Durable Medical Equipment 10/07/[address] [address] James Flores MD Durable Medical Equipment 10/02/[address] [address] James Flores MD Med Refill from Last 3 Months Immunizations Immunization Administration [...] Reading Time Taken Comments Blood Pressure 138/82 12/10/2024 9:32 AM EDT Pulse 97 12/10/2024 9:23 AM EDT Temperature 34.9 C (94.8 F) 12/10/2024 9:23 AM EDT Respiratory Rate 20 12/10/2024 9:23 AM EDT Oxygen Saturation 98% 12/10/2024 9:23 AM EDT Inhaled Oxygen Concentration - - Weight 77.7 kg (171 lb 3.2 oz) 12/10/2024 9:23 A M EDT Height 147.3 cm (4' 10 ) 12/10/2024 9:23 AM EDT Body Mass Index 35.78 12/10/2024 9:23 AM EDT Plan of Treatment Health Maintenance Due [...] Screening 01/29/2025 01/30/2024, 01/30/20 Diabetes: Hemoglobin A1C 03/11/2025 025, 10/31/2024, 09/03/2024, Additional history exists SDOH Screening 05/30/2025 05/30/2024 Colonoscopy 07/11/2025 07/11/2022 Colorectal Cancer Screening 07/11/2025 Diabetes: Foot Exam 10/30/2025 10/30/2024, 02/07/2024, 02/07/2024, Additional history exists Lipid Panel 10/31/2025 10/31/2024, 01/12, 01/19/2023, Additional history exists Tobacco Screening 12/10/2025 12/10/2024 Eye Exam 06/20/2026 06/20/2024 Mammogram 11/14/2026 11/14/2024, [...] Procedure Name Priority Date/Time Associated Diagnosis Comments IMMUNOFIXATION, URINE Routine 12/10/2024 2:42 PM EDT IMMUNOFIXATION, SERUM Routine 12/10/2024 9:50 AM EDT VITAMIN D,25-OH,TOTAL,IA Routine 12/10/2024 9:50 AM EDT CALCIUM Routine 12/10/2024 9:50 AM EDT CREATININE, SERUM Routine 12/10/2024 9:5 0 AM EDT UREA NITROGEN (BUN) Routine 12/10/2024 9 :50 AM EDT ELECTROLYTE PANEL Routine 12/10/2024 9:5 0 AM EDT PTH, INTACT WITHOUT CALCIUM Routine 12/10/2024 9:50 AM EDT TSH W/REFLEX TO FT4 Routine 12/10/2024 9 :50 AM EDT Hair loss POCT GLUCOSE Routine 12/10/2024 9:27 AM EDT Type 2 diabetes mellitus with stage 3a chronic kidney disease, with long-term current use of insulin ([facility]) POCT GLYCOSYLATED HEMOGLOBIN (HGB A1C) Routine 12/10/2024 9:26 AM EDT Type 2 diabetes mellitus with stage 3a chronic kidney disease, with long-term current use of insulin ([facility]) CALCIUM Routine 11/20/2024 11:16 AM EDT CREATININE, [...] EDT Pain of toe of left foot AMB REFERRAL TO OPHTHALMOLOGY Urgent 06/20/2024 Giant cell arteritis (CMS/HCC) PAP SMEAR Routine 06/22/2023 3:20 PM EDT HM COLONOSCOPY Routine 07/11/2022 3:53 PM EDT ZZZ HISTORICAL HPV E6/E7 RFLX DANIAL 16 18/45 Routine 01/17/2022 4:22 PM EST from Last 3 Months or Most Recently Relevant to Health Maintenance Results * Immunofixation (SONIA), Urine (12/10/2024 2:42 PM EDT) Only the most recent of2 resultswithin the time period is included. SONIA Interpretation [facility] Comment:No monoclonal protei ns detected.THIS TEST WAS PERFORMED AT:[facility] [employer] [place] [phone] CHAND MD 12/10/2024 2:42 PM EDT 12/10/2024 4:05 PM EDT us Generic External Data Provider LAB URINE ORDERAB LES Final Result [facility] [address] [place] [phone] * Vitamin D, 25-Hydroxy, Total, Immunoassay (12/10/2024 9:50 AM EDT) Vitamin D 25-OH Total 47.1 >30 ng/mL [facility] Comment: Health Based Reference Values*< 20 ng/mL [id number] ng/mL Insufficient> 30 ng/mL Sufficient*Altagracia GOODWIN. N Engl J Med. 2007;357:266-280There is [...] Vitamin D results fromdifferent laboratories and methodologies. Published datademonstrated that results from patients undergoinghemodialysis may show a negative bias when tested withvarious automated 25-OH vitamin D assays when compared toLC-MS/MS.When testing samples from patients whose predominant form ofVitamin D is Vitamin D2, such as patients receiving VitaminD2 supplementation, results that are subtherapeutic shouldbe confirmed with another method such as LC-MS/MS. 12/10/2024 9:50 AM EDT 12/10/2024 11:50 AM EDT us Generic External Data Provider LAB BLOOD ORDERAB LES Final Result Performing Organization Address [facility] Co de Phone Number [facility] [address] [place] [phone] * TSH with Reflex to Free T4 (12/10/2024 9:50 AM EDT) TSH reflex Free T4 1.76 0.32 - 4.0 uIU/mL [facility] Blood Venous blood specimen / Unknown 12/10/2024 9:50 AM EDT 12/10/2024 11:50 AM EDT us James Ashraf MD LAB BLOOD ORDERABLES Final Result Performing Organization Address [facility]/ZIP Co de Phone Number [facility] [address] [place] [phone] * (ABNORMAL) Creatinine, Serum (12/10/2024 9:50 AM EDT) Only the most recent of2 resultswithin the time period is included. Creatinine, Serum 1.48(H) 0.5 - 1.4 mg/dL [facility] Estimated Glomerular Filt Rate 35 [facility] Comment:Chronic Kidney Disea se: Estimated GFR < 60 mL/min/[id number] Kidney Disease: Estimated GFR < 15 mL/min/1.73m2 12/10/2024 9:50 AM EDT 12/10/2024 11:50 AM EDT us Generic External Data Provider LAB BLOOD ORDERAB LES Final Result Performing Organization Address [facility] Co de Phone Number [facility] [address] [place] [phone] * Immunofixation, Serum (12/10/2024 9:50 AM EDT) Only the most recent of2 resultswithin the time period is included. IMMUNOGLOBULIN G 851 600 - 1540 mg/dL [facility] IMMUNOGLOBULIN A 196 70 - 320 mg/dL [facility] Immunoglobulin M 75 50 - 300 mg/dL [facility] Comment:THIS TEST WAS PERFOR MED AT:[facility] [place] [id number] CHAND MD Immunofixation Result SEE NOTE [facility] Comment:Normal pattern. No m onoclonal proteins detected. 12/10/2024 9:50 AM EDT 12/10/2024 11:50 AM EDT us Generic External Data Provider LAB BLOOD ORDERAB LES Final Result Performing Organization Address [facility] de Phone Number [facility] [address] [place] [phone] * (ABNORMAL) BUN (Blood Urea Nitrogen) (12/10/2024 9:50 AM EDT) Only the most recent of2 resultswithin the time period is included. Urea Nitrogen (BUN) 25(H) 9 - 16 mg/dL [facility] 12/10/2024 9:50 AM EDT 12/10/2024 11:50 AM EDT us Generic External Data Provider LAB BLOOD ORDERAB LES Final Result Performing Organization Address City/[facility]/ZIP Co de Phone Number [facility] [address] [place] [phone] * PTH, Intact Without Calcium (12/10/2024 9:50 AM EDT) Parathyroid Hormone, Intact 71.3 8.7 - 77.1 pg/mL [facility] 12/10/2024 9:50 AM EDT 12/10/2024 11:50 AM EDT Generic External Data Provider LAB BLOOD ORDERAB LES Final Result Performing Organization Address [facility] Co de Phone Number [facility] [address] [place] [phone] * Calcium (12/10/2024 9:50 AM EDT) Only the most recent of2 resultswithin the time period is included. Calcium 9.5 8.4 - 10.2 mg/dL [facility] 12/10/2024 9:50 AM EDT 12/10/2024 11:50 AM EDT Generic External Data Provider LAB BLOOD ORDERAB LES Final Result Performing Organization Address [facility] Co de Phone Number [facility] [address] [place] [phone] * (ABNORMAL) Electrolyte Panel (12/10/2024 9:50 AM EDT) Only the most recent of2 resultswithin the time period is included. Sodium 144 135 - 145 mmol/L [facility] [facility] Potassium 4.9 3.3 - 5.1 mmol/L [facility] Chloride 109(H) 96 - 108 mmol/L [facility] Carbon Dioxide 29 22 - 29 mmol/L [facility] Anion Gap 11(L) 12 - 20 [facility] 12/10/2024 9:50 AM EDT 12/10/2024 11:50 AM EDT Generic External Data Provider LAB BLOOD ORDERAB LES Final Result [facility] [address] [place] [address] [phone] * (ABNORMAL) POCT glucose manually resulted (12/10/2024 9:27 AM EDT) Glucose Blood, POC 8.5(A) 60 - 200 mg/dL QC Media Lot # [id number] Lot# Expiration Date [id number] Blood Capillary blood specimen / Unknown 12/10/2024 9:27 AM EDT James Ashraf MD POINT OF CARE TEST ENTER/EDIT ORDERABLES Edited Result - Final * (ABNORMAL) POCT glycosylated hemoglobin (Hgb A1c) (12/10/2024 9:26 AM EDT) Hemoglobin A1C 255.0(A) 4.0 - 5.7 % QC Media Lot # [id number] Lot# Expiration Date [id number] Blood Capillary blood specimen / Unknown 12/10/2024 9:26 AM EDT James Ashraf MD POINT OF CARE TEST EN TER/EDIT ORDERABLES Final Result * Hm Mammography (11/14/2024 10:06 AM EDT) HM Mammogram BIRADS 1 Normal, Abnormal, BIRADS 1 , BIRADS 2 Comment:follow up 1 year Anatomical Region Laterality Modality Other Historical Provider HEALTH MAINTENANCE Final Result * Glucose, Whole Blood (11/13/2024 9:56 AM EDT) Glucose, Whole Blood 102 60 - 115 mg/dL [facility] Comment:METER #: [id number] 0Testing performed in the Endocrinology Department [address], [facility]. 11/13/2024 9:56 AM EDT 11/13/2024 10:00 AM EDT us Generic External Data Provider LAB BLOOD ORDERAB LES Final Result [facility] [address] [place] [address] [phone] * BI Mammogram Screening Tomosynthesis Bilateral (11/04/2024 11:10 AM EDT) Anatomical Region Laterality Modality Breast Bilateral Mammography 11/04/2024 11:1 0 AM EDT Narrative 11/08/2024 5:49 PM EDT [facility] [address] [place] [address] Mammography Report Signed Patient: Jayne Lane MR#: [id number] : 1955 Acct:[id number] Age/Sex: 69 / F ADM Date: 11/04/24 Loc: HO.MAMMO Attending Dr: James Trimble MD Ordering Physician: James Trimble MD Resu lts: 1Negative Date of Service: 11/04/24 Follow Up: 1 Year From [facility] Mammogram Procedure(s): MM tomosynthesis screening BI Accession Number(s): [id number] cc: James Trimble MD EXAMINATION: MM SCREENING [...] 11/08/24 1746 DD/ 1110 TD/TT: 11/04/24 1133 Solar [employer] Installation Manager: Procedure Note Donotuseinterpreter, Image - [facility]08[facility] [address] [place] [address] Mammography Report Signed Patient: Jayne LaneMR#: [id number] : 6Acct:[id number] Age/Sex: 69 / FADM Date: 11/04/24 Loc: HO.MAMMO Attending Dr: James Trimble MD Ordering Physician: James Trimble MDResu lts: 1Negative Date of Service: 11/04/24Follow Up: 1 Year From Orig ina Mammogram Procedure(s): MM tomosynthesis screening BI Accession Number(s): [id number] cc: James Trimble MD EXAMINATION: MM SCREENING [...] MD 11/08/2024 05:46 PM EDT RP Workstation: [employer] Dictated By: Tahir Ortiz MD Signed By: <Electronically signed by Tahir Ortiz MD in OV> 11/08/24 1746 DD/ 1110 TD/TT: 11/04/24 1133 [employer] Installation Manager: us James Ashraf MD IMG BI PROCEDURES Fin al Result * Proteinase-3 Antibody (10/31/2024 10:27 AM EDT) Proteinase-3 Antibody <1.0 [facility] Comment:Value Interpretation ----- <1.0 No Antibody Detected > or = 1.0 Antibody DetectedAutoantibodies to proteinase-3 (UT-3) are accepted ascharacteristic for granulomatosis with polyangiitis(GPA, Cresencio's), and are detectable in 95% of thehistologically proven cases. The cytoplasmic IFApattern, (c-ANCA), is based largely on autoantibody toPR-3 which serves as the primary antigen.These autoantibodies are present in active disease.THIS TEST WAS PERFORMED AT:[facility] [place] [phone] CHAND MD 10/31/2024 10:2 7 AM EDT 10/31/2024 11:25 AM EDT us Generic External Data Provider LAB BLOOD ORDERAB LES Final Result Performing Organization Address [facility] Co de Phone Number [facility] [address] [place] [phone] * Myeloperoxidase Antibody (MPO) (10/31/2024 10:27 AM EDT) Myeloperoxidase Antibody <1.0 AI [facility] Comment:Value Interpretation ----- <1.0 No Antibody Detected > or = 1.0 Antibody DetectedAutoantibodies to myeloperoxidase (MPO) are commonlyassociated with the following small-vesselvasculitides: microscopic polyangiitis,polyarteritis nodosa, Churg-Kelton syndrome,necrotizing and crescentic glomerulonephritis andoccasionally granulomatosis with polyangiitis(GPA, Cresencio's). The perinuclear IFA pattern,(p-ANCA) is based largely on autoantibody tomyeloperoxidase which serves as the primary antigen.These autoantibodies are present in active disease.THIS TEST WAS PERFORMED AT:[facility] [place] [phone] CHAND MD 10/31/2024 10:2 7 AM EDT 10/31/2024 11:25 AM EDT Generic External Data Provider LAB BLOOD ORDERAB LES Final Result Performing Organization Address [facility] Co de Phone Number [facility] [address] [place] [phone] * (ABNORMAL) Protein Creatinine Ratio, Urine (10/31/2024 10:27 AM EDT) Creatinine, Urine 133.81 mg/dL [facility] Protein, Total, Random Urine 58(H) <12 mg/dL [facility] Protein/Creati nine Ratio, Ur 0.43(H) <0.2 [facility] Comment:The spot urine prote in:creatinine ratio may increase to 0.3during normal . 10/31/2024 10:2 7 AM EDT 10/31/2024 11:10 AM EDT Generic External Data Provider LAB URINE ORDERAB LES Final Result Performing Organization Address [facility] de Phone Number [facility] [address] [place] [phone] * Phospholipase A2 Receptor (PLA2R) Antibody Panel (10/31/2024 10:27 AM EDT) Phospholipase A2 Receptor (PLA2R) Ab, ABHIJEET <4 RU/mL [facility] Comment:Reference Range: <14 : NEGATIVE 14-19: BORDERLINE >19: POSITIVE Phospholipase A2 Receptor (PLA2R) Ab, IFA NEGATIVE NEGATIVE [facility] Comment:THIS TEST WAS PERFOR MED AT:[employer] [id number] [place] [phone] DELATORRE MD,PHD,SHU 10/31/2024 10:2 7 AM EDT 10/31/2024 11:25 AM EDT Generic External Data Provider LAB BLOOD ORDERAB LES Final Result Performing Organization Address [facility] Co de Phone Number [facility] [address] [place] [phone] * Glomerular Basement Membrane Antibody (IgG) (10/31/2024 10:27 AM EDT) Glomerular Basement Memebrane Antibody (IgG) <1.0 AI [facility] Comment:Value Interpretation ----- <1.0 No Antibody Detected > or = 1.0 Antibody DetectedTHIS TEST WAS PERFORMED AT:[employer] [address] [phone] CHAND MD 10/31/2024 10:2 7 AM EDT 10/31/2024 11:25 AM EDT us Generic External Data Provider LAB BLOOD ORDERAB LES Final Result Performing Organization Address [facility] de Phone Number [facility] [address] [place] [phone] * DNA (ds) Antibody (10/31/2024 10:27 AM EDT) Anti DNA DS Antibody 1 IU/mL [facility] Comment:IU/mL Interpretation < or = 4 Negative 5-9 Indeterminate > or = 10 PositiveTHIS TEST WAS PERFORMED AT:[facility] [place] [phone] CHAND MD 10/31/2024 10:2 7 AM EDT 10/31/2024 11:25 AM EDT us Generic External Data Provider LAB BLOOD ORDERAB LES Final Result Performing Organization Address [facility] de Phone Number [facility] [address] [place] [phone] * Hepatitis B surface antigen, EIA (10/31/2024 10:27 AM EDT) Hepatitis B Surface Ag Negative Negative [facility] 10/31/2024 10:2 7 AM EDT 10/31/2024 11:25 AM EDT us Generic External Data Provider LAB BLOOD ORDERAB LES Final Result Performing Organization Address [facility] de Phone Number [facility] [address] [place] [phone] * Hepatitis B Core Antibody, Total (10/31/2024 10:27 AM EDT) Hepatitis B Core Antibody Nonreactive Nonreactive [facility] 10/31/2024 10:2 7 AM EDT 10/31/2024 11:25 AM EDT us Generic External Data Provider LAB BLOOD ORDERAB LES Final Result Performing Organization Address [facility] Co de Phone Number [facility] [address] [place] [phone] * Complement Component C3c (10/31/2024 10:27 AM EDT) Complement C3 171 83 - 193 mg/dL [facility] Comment:THIS TEST WAS PERFOR MED AT:[employer] [address] [phone] CHAND MD 10/31/2024 10:2 7 AM EDT 10/31/2024 11:21 AM EDT Generic External Data Provider LAB BLOOD ORDERAB LES Final Result Performing Organization Address [facility] de [facility] Number [facility] [address] [place] [phone] * Complement Component C4c (10/31/2024 10:27 AM EDT) Complement C4 37 15 - 57 mg/dL [facility] Comment:THIS TEST WAS PERFOR MED AT:[employer] [address] [phone] CHAND MD 10/31/2024 10:2 7 AM EDT 10/31/2024 11:21 AM EDT Generic External Data Provider LAB BLOOD ORDERAB LES Final Result Performing Organization Address [facility] Co de Phone Number [facility] [address] [place] [phone] * C-reactive Protein (10/31/2024 10:27 AM EDT) C Reactive Protein <0.10 < or = 0.50 mg/dL [facility] Blood Venous blood specimen / Unknown 10/31/2024 10:27 AM EDT 10/31/2024 11:25 AM EDT us Ludwin Sylvester MD LAB BLOOD ORDERABLES Final Resul t Performing Organization Address [facility] Co de Phone Number [facility] [address] [place] [phone] * (ABNORMAL) Hemoglobin A1c (10/31/2024 10:27 AM EDT) Hemoglobin A1c 7.7(H) <6.0 % [facility] Comment:Hemoglobin A1C Refer ence Range Adults: 4.8 - 6.0 % Non diabetic: < 6.0 % Goal: < 7.0 %Additional Action Suggested: > 8.0 %Note: Hemoglobin A1c results are invalid for patients with abnormal amounts of HbF. Blood transfusions may impact the HbA1c concentration in the patient sample. Estimated Average Glucose 174 mg/dL [facility] Comment:eAG = Estimated ave rage glucose which is %A1C expressed asaverage glucose, using the formula of the P0Y-NgsdiatDfaiogn Glucose study (ADAG), Diabetes Care, Vol.31,#8,Oct. 2007 10/31/2024 10:2 7 AM EDT 10/31/2024 11:25 AM EDT us Generic External Data Provider LAB BLOOD ORDERAB LES Final Result Performing Organization Address [facility] Co de Phone Number [facility] [address] [place] [phone] * Lipid Panel, Standard (10/31/2024 10:27 AM EDT) Triglycerides 126 <150 mg/dL [facility] Comment:Desirable Triglyceri de: less than 150 mg/dLBorderline High Triglyceride 150-199 mg/dLHigh Triglyceride: 200-499 mg/dLVery High Triglyceride: greater than or equal to 5OO mg/dL Cholesterol 139 <200 mg/dL [facility] Comment:Desirable Cholestero l: less than 200 mg/dLBorderline High Cholesterol: 200-239 mg/dLHigh Cholesterol: greater than 239 mg/dL LDL Cholesterol Calculated 71 <100 mg/dL [facility] Comment:Desirable LDL: less than 100 mg/dLNear Optimal/Above Optimal LDL: 110- 129 mg/dLBorderline High LDL: 130-159 mg/dLHigh LDL: 160-189 mg/dLVery High LDL: greater than or equal to 190 mg/dL HDL Cholesterol 43 >40 mg/dL [facility] Comment:Desirable HDL: great er than 40 mg/dL Note: This HDL assay may give artificially low results in patients with liver disease. 10/31/2024 10:2 7 AM EDT 10/31/2024 11:25 AM EDT us Generic External Data Provider LAB BLOOD ORDERAB LES Final Result [facility] [address] [place] [phone] * (ABNORMAL) Comprehensive Metabolic Panel (10/31/2024 10:27 AM EDT) Sodium 143 135 - 145 mmol/L [facility] Potassium 4.2 3.3 - 5.1 mmol/L [facility] Chloride 106 96 - 108 mmol/L [facility] Carbon Dioxide 29 22 - 29 mmol/L [facility] Anion Gap 12 12 - 20 [facility] Urea Nitrogen (BUN) 26(H) 9 - 16 mg/dL [facility] Creatinine, Serum 1.38 0.5 - 1.4 mg/dL [facility] Estimated Glomerular Filt Rate 38 [facility] Comment:Chronic Kidney Disea se: Estimated GFR < 60 mL/min/1.91a4Uutlot Kidney Disease: Estimated GFR < 15 mL/min/1.73m2 Glucose 141(H) 60 - 115 mg/dL [facility] Calcium 10.0 8.4 - 10.2 mg/dL [facility] Bilirubin, Total 0.3 0.0 - 1.0 mg/dL [facility] Aspartate Amino Transferase 29 5 - 31 U/L [facility] Alanine Aminotransferase 17 0 - 31 U/L [facility] Total Protein 7.1 6.5 - 8.0 g/dL [facility] Albumin Level 4.4 3.5 - 5.0 g/dL [facility] Alkaline Phosphatase 57 39 - 117 U/L [facility] 10/31/2024 10:2 7 AM EDT 10/31/2024 11:25 AM EDT us Generic External Data Provider LAB BLOOD ORDERAB LES Final Result Performing Organization Address City/State/[facility] Co de Phone Number [facility] [address] [place] [phone] * XR Foot 3+ Views Left (10/31/2024 10:14 AM EDT) Anatomical Region Laterality Modality Lower Extremities, Foot Left Radiogra phic Imaging 10/31/2024 10:1 4 AM EDT Narrative 10/31/2024 10:28 AM EDT [address] [address] XRay Report Signed Patient: Jayne Lane MR#: [id number] : 1955 Acct:[id number] Age/Sex: 69 / F ADM Date: 10/31/24 Loc: HO.HHCX Attending Dr: Ruchi Osman MD Ordering Physician: Ruchi Ayala MD Date of Service: 10/31/24 Procedure(s): XR foot LT min 3V Accession Number(s): [id number] cc: Ruchi Ayala MD; James Trimble MD [...] 10/31/24 1025 DD/ 1014 TD/TT: 10/31/24 1018 Solar Energy Installation Manager: Procedure Note Donotuseinterpreter, Image - 10/31/[address] [address] XRay Report Signed Patient: Jayne LaneMR#: [id number] : 1955cct:[id number] Age/Sex: 69 / FADM Date: 10/31/24 Loc: HO.HHCX Attending Dr: Ruchi Osman MD Ordering Physician: Ruchi Ayala MD Date of Service: 10/31/24 Procedure(s): XR foot LT min 3V Accession Number(s): [id number] cc: Ruchi Ayala MD; James Trimble MD [...] 10/31/24 1025 DD/ 1014 TD/TT: 10/31/24 1018 [employer] Installation Manager: us Ruchi Osman MD IMG XR PROCEDURES Fin al Result * Referral to Ophthalmology (06/20/2024) us Ludwin Sylvester MD OUTPATIENT REFERRAL ORDERABLES F inal Result * Pap Smear (06/22/2023 3:20 PM EDT) 06/22/2023 3:20 PM EDT 06/27/2023 11:15 AM EDT Narrative [facility] - 07/11/2023 2:16 PM EDT ----- ------- Name: Jayne Lane Age/Sex: 68/F : 1955 Unit#: [id number] Attend Dr: Opal Carranza CNM Re06/22/23 Status: DEP REF Location: HO.LNP Disch: ----- ------- SPEC : [id number] RECD: 06/27/23-1114 STATUS: DERRELL CHACKO NUM: [id number] CYRUS: 06/22/23-[address] [facility] [address]: Opal Carranza [facility] ENTERED: 06/27/23-1232 SP TYPE: Pap Smr [...] 59, 66, 68) HPV testing performed by [facility], [place], [place]. See reference laboratory portion of the EMR for entire report. Clinical Information LMP: Menopause Previous PAP test: 02/01, Abnormal Other surgery:03/30 colpo DELPHINE I Other history: 2015 +HPV ACUS, 07/29 +HPV Material Received ThinPrep-Cervical Copies To: James Trimble MD [address] [place] [address] Opal Carranza CNM [address] [place] [address] [address] ----- ------- Signed (signature on file) Ev Preciado 07/11/23 1416 ----- ------- END OF REPORT Generic External Data Provider LAB CYTOLOGY ORDE RABMONICA Final Result [facility] [address] [place] [phone] * Colonoscopy (07/11/2022 3:53 PM EDT) Colonoscopy Normal Normal Comment:Tubular adenoma Historical Provider MD HEALTH MAINTENANCE Final Result * HPV E6/E7 RFLX DANIAL 16 18/45 (01/17/2022 4:22 PM EST) Pathologist [facility] HPV 16 RNA TNP CONVERTED [facility] HPV 18/45 RNA TNP [facility] HPV E6 E7 ADD TNP [facility] HPV mRNA E6/E7 rflx Not Detected Not Detected [facility] Comment: Methodology: Wire [employer] Cloth-Mediated Amplification This assay detects E6/E7 viral messenger RNA (mRNA) from 14 high-risk HPV types (16,18,31,33,35,39,45,51,52,56,58,59,66,68). Cervical sources are required for HPV testing. If a vaginal source from a patient who has had a total hysterectomy with removal of cervix was submitted, please contact the testing laboratory for alternative testing options. For additional information, please refer to http://education.Semetric.O2 Medtech/faq/AVX348b0 (This link if provided for information/ educational purposes only.) THIS TEST WAS PERFORMED AT: [facility] [address] [place] [address],[place] [address] KEVEN CHAND MD 01/17/2022 4:22 PM EST Opal Carranza HISTORICAL/NON ORDERABLE LABS Fi nal Result Performing Organization Address [facility]/ZIP Co de Phone Number [facility] from Last 3 Months or Most Recently Relevant to Health Maintenance [facility] [employer] OPT[employer] (HMO D-SNP) Care Teams Airborne Operations Superintendent Relationship Specialty Start Date End Date James Flores MD [address] [place] [phone] PCP - General Internal Medicine 02/04/14
--- OUTSIDE RECORDS SUMMARY | 2024-12-25 11:49 | XMS_ITS | Encounter Summary ---
Author Organization [facility] Address [address] [place] [address] Phone Care Team Providers Care Chicken Handler Name Role Phone James Grant MD Primary Care Provider Unav ailable Reason for Visit * Reason Comments Med Refill Encounter Details Date Type Department Care Team (Late st Contact Info) Description 12/14/2022 Refill [facility] [address] [place] [phone] Osmany Leung MD Social History [...] filedocumented in this encounter Care Teams Chicken Handler Relationship Specialty Start Date End Date James Grant MD PCP - General 03/23/20 documented as of this encounter
--- OUTSIDE RECORDS SUMMARY | 2024-12-25 11:49 | XMS_ITS | Encounter Summary ---
Author Organization [facility] Address [address] [facility] [address] [place] [address] Care Team Providers Care Administration Physician Name Role Phone James Flores MD Primary Care Provide r Encounter Details Date Type Department Care Team (Late st Contact Info) Description 03/17/2022 Orders Only [facility] [address] [place], [place] [phone] Jaja Hammond LPN Social History Tobacco Use [...] on filedocumented in this encounter Care Teams Administration Physician Relationship Specialty Start Date End Date James Flores MD [address] [place] [address] PCP - General Internal Medicine 02/04/14 documented as of this encounter
--- OUTSIDE RECORDS SUMMARY | 2024-12-25 11:49 | XMS_ITS | Encounter Summary ---
Author Organization [facility] Address [address] [facility] [address] [place] [address] Phone Care Team Providers Care Laborer/Grade Check Name Role Phone James Trimble MD Primary Care Provide r Encounter Details Date Type Department Care Team (Late st Contact Info) Description 12/21/2020 Procedure Pass [facility] [address] [place] [address] Social History Tobacco Use Types Packs/Day Years [...] AM EDT Trey Cardona i, RN * [place] Suicide Severity Rating Scale (Screener/Recent Self-Report) Question [...] documented as of this encounter Care Teams Laborer/Grade Check Relationship Specialty Start Date End Date James Trimble MD [address] [place] [address] [address] [place] [phone] [email or web address] PCP - General 03/16/17 documented as of this encounter Additional Source Comments The information contained in this document represents components of the legal health record. It is not the complete legal health record.[facility]
== END 2024-12-25 10:45 | disposition home or self-care (01) ==
LOC: HO.HKA 10:04
PROVIDERS: PCP Internal Medicine; Visit Provider Internal Medicine Nephrology
DX: N18.31 Chronic kidney disease, stage 3a (principal); E11.21 Type 2 diabetes mellitus with diabetic nephropathy; I10 Essential (primary) hypertension
CPT/HCPCS: 99214

== ENCOUNTER → 2024-12-25 10:04 | Outpatient (BNVA) | payer OTHER, SELFPAY | PROVIDERS: PCP Internal Medicine; Visit Provider Internal Medicine Nephrology | DX: E11.21 Type 2 diabetes mellitus with diabetic nephropathy (principal); I12.9 Hypertensive chronic kidney disease with stage 1 through stage 4 chronic kidney disease, or unspecified chronic kidney disease; N18.31 Chronic kidney disease, stage 3a | CPT/HCPCS: 99212 ==

== ENCOUNTER 2024-12-31 15:17 | Emergency (ER) | payer OTHER, SELFPAY ==
--- NOTE | ~2024-12-31 | XR_ITS ---
EXAMINATION: XR SHOULDER, LEFT CLINICAL INFORMATION: pain COMPARISON: Previous x-ray July 2024 TECHNIQUE: 3 axillary views of the left shoulder. FINDINGS: Bone alignment is normal. No fracture or dislocation. Mild osteoarthritis at the acromioclavicular joint with joint space narrowing and osteophyte formation. There is also mild joint space narrowing at the glenohumeral joint. There are soft tissue calcifications or ossifications adjacent to the acromion similar to previous exam. XR/XR shoulder LT min 2V IMPRESSION: Degenerative changes similar to July 2024. No fracture seen. Electronically signed by: Karina Yanez MD 12/31/2024 04:31 PM EDT
--- NOTE | ~2024-12-31 | XR_ITS ---
EXAMINATION: XR LUMBOSACRAL SPINE CLINICAL INFORMATION: pain COMPARISON: None available. TECHNIQUE: Three views of the lumbosacral spine. FINDINGS: Mild curvature of the lumbar spine to the right. Bone alignment is otherwise normal. No fracture or dislocation. Mild degenerative spondylosis at L3-4 and L5-S1. Mild disc space narrowing at L5-S1. Lower lumbar spine facet arthritis. Atherosclerotic disease. XR/XR lumbar spine 2-3V IMPRESSION: Degenerative changes and mild scoliosis. Electronically signed by: Karina Yanez MD 12/31/2024 04:33 PM EDT
[2024-12-31 15:36] VITALS: BP 139/63; PULSE 87; RESP 12; TEMP 36.1; O2SAT 96; BMI 32.2
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
[2024-12-31 19:39] VITALS: BP 139/63; PULSE 87; RESP 12; TEMP 36.1; O2SAT 96
--- OUTSIDE RECORDS SUMMARY | 2024-12-31 21:34 | XMS_ITS | Encounter Summary ---
Author Organization [employer] Address [address] [facility] 7t [place] [address] Care Team Providers Care Waxer Operator Name Role Phone James Flores MD Primary Care Provide r Encounter Details Date Type Department Care Team (Late st Contact Info) Description 06/14/2022 Orders Only [facility] CHC MED & PEDS [address] [place] [address] Jaja Hammond LPN Social History Tobacco Use [...] on filedocumented in this encounter Care Teams Waxer Operator Relationship Specialty Start Date End Date James Flores MD [address] [place] [address] PCP - General Internal Medicine 02/04/14 documented as of this encounter
--- OUTSIDE RECORDS SUMMARY | 2024-12-31 21:34 | XMS_ITS | Encounter Summary ---
Author Organization [employer] Address [address] [facility] 7t [place] [address] Care Team Providers Care Crown Assembly Machine Set Up Mechanic Name Role Phone James Flores MD Primary Care Provide r Encounter Details Date Type Department Care Team (Late st Contact Info) Description 08/22/2022 Orders Only [facility] CHC MED & PEDS [address] [place] [address] Jaja Hammond LPN Social History Tobacco Use [...] on filedocumented in this encounter Care Teams Crown Assembly Machine Set Up Mechanic Relationship Specialty Start Date End Date James Flores MD [address] [place] [address] PCP - General Internal Medicine 02/04/14 documented as of this encounter
--- OUTSIDE RECORDS SUMMARY | 2024-12-31 21:34 | XMS_ITS | Encounter Summary ---
Author Organization [facility] Address [address] [facility] [address] [place] [address] Phone Care Team Providers Care Consolidator Name Role Phone James Trimble MD Primary Care Provide r Encounter Details Date Type Department Care Team (Late st Contact Info) Description 01/25/2021 Procedure Pass [facility], Ct Scan - [address] [address] Social History Tobacco Use Types Packs/Day Years [...] 01/25/2021 12:53 PM Corinne Rodriguez, LISA * [place] Suicide Severity Rating Scale (Screener/Recent Self-Report) Question [...] documented as of this encounter Care Teams Consolidator Relationship Specialty Start Date End Date James Trimble MD [address] [place] [address] [place] [phone] PCP - General 03/16/17 documented as of this encounter Additional Source Comments The information contained in this document represents components of the legal health record. It is not the complete legal health record.[facility]
--- OUTSIDE RECORDS SUMMARY | 2024-12-31 21:35 | XMS_ITS | Encounter Summary ---
Author Organization [employer] Address [address] [facility] 7t [place] [address] Care Team Providers Care Management Internship Name Role Phone James Flores MD Primary Care Provide r Reason for Visit * Reason Comments Med Refill Encounter Details Date Type Department Care Team (Late st Contact Info) Description 12/27/2024 Refill [facility] MEDICINE [address] [place] [address] James Flores MD [address] [place] [address] Seasonal allergies Social History Tobacco Use Types [...] documented as of this encounter Care Teams Management Internship Relationship Specialty Start Date End Date James Flores MD [address] [place] [phone] PCP - General Internal Medicine 02/04/14 documented as of this encounter
--- OUTSIDE RECORDS SUMMARY | 2024-12-31 21:35 | XMS_ITS | Encounter Summary ---
Author Organization [employer] Address [address] 7[address] [place] [address] Care Team Providers Care Environmental Conflict Manager Name Role Phone James Flores MD Primary Care Provide r Encounter Details Date Type Department Care Team (Late st Contact Info) Description 01/09/2023 Orders Only [facility] CHC MED & PEDS [address] [place] [address] Jaja Hammond LPN Social History Tobacco Use [...] filedocumented in this encounter Care Teams Environmental Conflict Manager Relationship Specialty Start Date End Date James Flores MD [address] [place] [phone] PCP - General Internal Medicine 02/04/14 documented as of this encounter
--- OUTSIDE RECORDS SUMMARY | 2024-12-31 21:35 | XMS_ITS | Encounter Summary ---
Author Organization [employer] Address [address] [facility] 7t [place] [address] Care Team Providers Care Rail Car Unloader Name Role Phone James Flores MD Primary Care Provide r Reason for Visit * Reason Onset Date Comments Durable Medical Equipment 09/27/2023 Encounter Details Date Type Department Care Team (Late st Contact Info) Description 09/27/2023 Telephone [facility] MEDICINE [address] [place] [address] James Flores MD [address] [place], [place] [phone] Durable Medical Equipment Social History Tobacco Use [...] 1 flip pillow DME Please contact at [phone] * Telephone Encounter - Fernando Christie - 09/27/2023 2:40 PM EDT Tc from pt 10 in 1 flip pillow due to issues sleeping. Pt would like script to be faxed to [facility]. If any questions you can contact pt at [phone]. documented in this encounter Plan of Treatment Not on file documented as of this encounter Visit Diagnoses Not on filedocumented in this encounter Care Teams Rail Car Unloader Relationship Specialty Start Date End Date James Flores MD [address] [place] [phone] PCP - General Internal Medicine 02/04/14 documented as of this encounter
--- OUTSIDE RECORDS SUMMARY | 2024-12-31 21:35 | XMS_ITS | Encounter Summary ---
Author Organization [employer] Address [address] [facility] 7t [place] [address] Care Team Providers Care Car Rental Clerk Name Role Phone James Flores MD Primary Care Provide r Reason for Visit * Reason Comments Med Refill Encounter Details Date Type Department Care Team ([facility] st Contact Info) Description 03/12/2023 Refill [facility] MEDICINE [address] [place] [address] James Flores MD [address] [place] [address] Chronic anemia Social History Tobacco Use Types [...] t he electric, gas, oil or water [email or web address] threatened to shut off services in your [...] anemia documented in this encounter Care Teams Car Rental Clerk Relationship Specialty Start Date End Date James Flores MD [address] [place] [phone] PCP - General Internal Medicine 02/04/14 documented as of this encounter
--- OUTSIDE RECORDS SUMMARY | 2024-12-31 21:35 | XMS_ITS | Patient Health Record ---
Author Organization [facility] Address [address] [place] [address] Care Team Providers Care Health Sciences Dean Name Role Phone Rudy Ashraf MD, James Primary Care Provide r Unavailable Moris Duron Jr Unavailable Reason For Referral No Information Plan Of Treatment No Information Insurance Providers Payer Name Payer Address Payer Phone Subscriber Number Group Number Insured Name Patient Relationship to Insured Coverage Start Date Coverage End Date MEDICARE OF [place] [address] [place] [id number] STEPHANI JOE Self - patient is the insured MEDICAID OF [facility] [address] [place] [address] [id number] STEPHANI JOE Self - patient is the insured
--- OUTSIDE RECORDS SUMMARY | 2024-12-31 21:35 | XMS_ITS | Clinical Summary ---
Author Organization [facility] Address [address] [place] [address] Phone Care Team Providers Care School Janitor Name Role Phone Ruchi Ayala MD Primary [...] 9:30 AM EDT Office Visit Orthopedic Surgery [facility] [address] [phone] Nii Frias DPM Pain (Primary Dx); Closed nondisplaced fracture of proximal phalanx of lesser toe of left foot with delayed healing, subsequent encounter 11/08/2024 9:45 AM EDT Consult Orthopedic [facility] [address] [phone] Nii Frias DPM Nondisplaced fracture of proximal [...] AM EST Office Visit Orthopedic Surgery - [place] 250 175 [facility] 250 [place] [phone] Nii Frias, DPTwan 175 [facility] [address] [place] [address] Health Maintenance Due Date Last Done Comments [...] - Final from Last 3 Months Insurance [facility] MEDICARE Member Subscriber Plan / Payer (Ef fective 2022-Present) Name:Jayne Lane Relation to Subscriber:Self Name:Jayne Lane Payer ID:[id number] Group ID:[id number] Type:Not on file Address: [place] [address] [address] [id number] Care Teams School Janitor Relationship Specialty Start Date End Date Ruchi Ayala MD [address] [place] [phone] PCP - General Internal Medicine 11/05/24
--- OUTSIDE RECORDS SUMMARY | 2024-12-31 21:35 | XMS_ITS | Encounter Summary ---
Author Organization [employer] Address [address] [facility] 7t [place] [address] Care Team Providers Care Algorithm Design Engineer Name Role Phone James Flores MD Primary Care Provide r Reason for Visit * Reason Onset Date Comments Call Back Request 08/07/2024 Appointment Request 08/07/2024 Encounter Details Date Type Department Care Team ([facility] st Contact Info) Description 08/07/2024 Telephone [facility] MEDICINE [address] [place] [address] James Flores MD [address] [place] [address] Call Back Request; Appointment Request Social History [...] request for telehealth visit Please return call [phone] documented in this encounter Plan of Treatment Not on file documented as of this encounter Visit Diagnoses Not on filedocumented in this encounter Additional Health Concerns Assessment Noted Time PHQ-9 Depression Total Score: 0 01/30/20 24 10:37 AM EST documented as of this encounter Care Teams Algorithm Design Engineer Relationship Specialty Start Date End Date James Flores MD [address] [place] [address] PCP - General Internal Medicine 02/04/14 documented as of this encounter
--- OUTSIDE RECORDS SUMMARY | 2024-12-31 21:35 | XMS_ITS | Encounter Summary ---
Author Organization [employer] Address [address] [facility] [address] 7[address] [place] [address] Care Team Providers Care Room Attendant Name Role Phone James Flores MD Primary Care Provide r Reason for Visit * Reason Comments Med Refill Encounter Details Date Type Department Care Team (Late st Contact Info) Description 05/10/2024 Refill [facility] WALK-IN CENTER [address] [place] [address] Coco Montiel NP [address] [place] [address] Mild intermittent asthma without complication Social History [...] documented as of this encounter Care Teams Room Attendant Relationship Specialty Start Date End Date James Flores MD [address] [place] [address] PCP - General Internal Medicine 02/04/14 documented as of this encounter
--- OUTSIDE RECORDS SUMMARY | 2024-12-31 21:35 | XMS_ITS | Encounter Summary ---
Author Organization [facility] Address [address] [facility] [address] [place] [address] Phone Care Team Providers Care Staple Side Laster Name Role Phone James Trimble MD Primary Care Provide r Encounter Details Date Type Department Care Team (Late st Contact Info) Description 12/20/2020 Procedure Pass [facility], [address] [address] Social History Tobacco Use Types Packs/Day Years [...] AM EDT Trey Cardona i, RN * [place] Suicide Severity Rating Scale (Screener/Recent Self-Report) Question [...] documented as of this encounter Care Teams Staple Side Laster Relationship Specialty Start Date End Date James Trimble MD [address] [place] [address] [address] [place] [phone] [email or web address] PCP - General 03/16/17 documented as of this encounter Additional Source Comments The information contained in this document represents components of the legal health record. It is not the complete legal health record.[facility]
--- OUTSIDE RECORDS SUMMARY | 2024-12-31 21:35 | XMS_ITS | Encounter Summary ---
Author Organization [employer] Address [address] [facility] 7t [place] [address] Care Team Providers Care Emergency Medicine Name Role Phone James Flores MD Primary Care Provide r Reason for Visit * Reason Comments Med Refill Encounter Details Date Type Department Care Team (Late st Contact Info) Description 08/27/2023 Refill [facility] MEDICINE [address] [place] [address] Name, MD Loki [address] [place] [address] Gastroesophageal reflux disease without esophagitis Social History Tobacco Use Types Packs/Day Years Used Date Smoking Tobacco: Never Passive Smoke Exposure: Never Smokeless Tobacco: Never Housing Stability Answer Date Recorded What is your housing situation today? I have maría norieag 01/19/[address] you li [...] t he electric, gas, oil or water [employer] threatened to shut off services in your [...] reflux documented in this encounter Care Teams Emergency Medicine Relationship Specialty Start Date End Date James Flores MD [address] [place] [id number] PCP - General Internal Medicine 02/04/14 documented as of this encounter
--- OUTSIDE RECORDS SUMMARY | 2024-12-31 21:35 | XMS_ITS | Encounter Summary ---
Author Organization [employer] Address [address] [facility] [address] [place] [address] Care Team Providers Care Online Content Coordinator Name Role Phone James Flores MD Primary Care Provide r Reason for Visit * Reason Comments Med Refill Encounter Details Date Type Department Care Team (Late st Contact Info) Description 08/21/[address] [facility] MEDICINE [address] [place], [place] [phone] James Folres MD [address] [place], [place] [phone] Social History Tobacco Use Types Packs/Day Years [...] on filedocumented in this encounter Care Teams Online Content Coordinator Relationship Specialty Start Date End Date James Flores MD [address] [place], [place] [phone] PCP - General Internal Medicine 02/04/14 documented as of this encounter
--- OUTSIDE RECORDS SUMMARY | 2024-12-31 21:35 | XMS_ITS | Encounter Summary ---
Author Organization [employer] Address [address] [facility] 7t [place] [address] Care Team Providers Care Government Relations Analyst Name Role Phone James Flores MD Primary Care Provide r Reason for Visit * Reason Onset Date Comments Nurse Triage 03/18/2024 Encounter Details Date Type Department Care Team (Late st Contact Info) Description 03/18/2024 Telephone [facility] MEDICINE 230 [place] [address] James Flores MD [address] [place] [address] Nurse Triage Social History Tobacco Use Types [...] AM EST Triage call with [facility] [place] [id number]. Pt reports continual coughing with cold symptoms. Pt was seen in [facility] 02/29/24 for cough and exacerbation of asthma. Pt reports has been using inhaler and nebulizer as prescribed though not every day.Pt denies having difficulty breathing. Pt requests to see provider again due to continuation of cough and cold symptoms neg for fever. Pt is advised to return to [facility] today open till 8pm and Pt agreeswith this disposition. Pt is requesting what medication could be taken for cough , Pt is taking BP medications and is advised to ask provider when seen in [facility] and Pt agrees. Insurance is verified [...] documented as of this encounter Care Teams Government Relations Analyst Relationship Specialty Start Date End Date James Flores MD [address] [place] [address] PCP - General Internal Medicine 02/04/14 documented as of this encounter
--- OUTSIDE RECORDS SUMMARY | 2024-12-31 21:35 | XMS_ITS | Encounter Summary ---
Author Organization [facility] Address [address] [facility] [address] [place] [address] Phone Care Team Providers Care Inventory Control Analyst Name Role Phone James Trimble MD Primary Care Provide r Encounter Details Date Type Department Care Team (Late st Contact Info) Description 12/21/2020 Procedure Pass Non-Invasive Cardiology [address] [place] [address] Social History Tobacco Use Types Packs/Day Years [...] AM EDT Trey Cardona i, RN * [place] Suicide Severity Rating Scale (Screener/Recent Self-Report) Question [...] documented as of this encounter Care Teams Inventory Control Analyst Relationship Specialty Start Date End Date James Trimble MD [address] [place] [address] [address] [place] [address] [email or web address] PCP - General 03/16/17 documented as of this encounter Additional Source Comments The information contained in this document represents components of the legal health record. It is not the complete legal health record.[facility]
--- OUTSIDE RECORDS SUMMARY | 2024-12-31 21:35 | XMS_ITS | Encounter Summary ---
Author Organization [employer] Address [address] [facility] 7t [place] [address] Care Team Providers Care Wastewater Manager Name Role Phone James Flores MD Primary Care Provide r Encounter Details Date Type Department Care Team ([facility] st Contact Info) Description 01/11/2024 Telephone [facility] MEDICINE [address] [place], [place] [phone] James Flores MD 230 [place], [place] [phone] Social History Tobacco Use Types Packs/Day Years [...] on filedocumented in this encounter Care Teams Wastewater Manager Relationship Specialty Start Date End Date James Flores MD [address] [place] [address] PCP - General Internal Medicine 02/04/14 documented as of this encounter
--- OUTSIDE RECORDS SUMMARY | 2024-12-31 21:35 | XMS_ITS | Clinical Summary ---
Author Organization [facility] Address [address] [facility] [address] [place] [address] Phone Care Team Providers Care Vp Strategy Name Role Phone James Trimble MD Primary [...] Active ferrous sulfate 325 mg (65 mg tatitlek iron) tablet Take 325 mg by mouth [...] nebulizer at home does not see a police dispatcher. Considering home neb. ? Having difficulty using [...] (12/21/2020 6:13 AM EDT) HDL 49 mg/dL [facility] Comment: Interpretation <40 mg/dL: Low HDL cholesterol (major risk factor for CHD) Greater than or equal to 60 mg/dL: High HDL cholesterol ( negative risk factor for CHD) HDL - cholesterol is affected by a number of factors, e.g. smoking, excerise, hormones, sex and age. CHOLESTEROL 160 0 - 240 mg/dL [facility] TRIGLYCERIDES 109 30 - 160 mg/dL [facility] LDL 89 50 - 129 mg/dL [facility] Comment: LDL levels in terms of risk for coronary heart disease: <100 mg/dL: Optimal 100-129 mg/dL: Near or above optimal 130-159 mg/dL: Borderline high 160-189 mg/dL: High >190 mg/dL: Very High CARDIAC RISK RATIO 3.3 3.3 - 4.4 [facility] Blood 12/21/2020 6:13 AM EDT 12/21/2020 6:36 AM EDT us Avni Bernard MD LAB BLOOD ORDERABLES Fin al Result [facility] [address] [place] [address] from Last 3 Months or Most Recently Relevant to Health Maintenance Insurance MEDICARE REPLACEMENT [place] AMADOR [id number] MEDICARE REPLACEMENT MEDICARE REPLACEMENT MEDICARE REPLACEMENT MEDICARE REPLACEMENT MEDICARE REPLACEMENT Advance Directives For more information, please contact: [phone] (9AM - 5PM [facility], Monday-Monday) * Full Code (Latest Code Status on File) Date Activated Date Inactivated Comments 06/26/2021 2:17 PM Question Answer Comments Code Status Confirmed With: Patient * Full Code Date Activated Date Inactivated Comments 12/20/2020 7:48 PM 06/26/2021 2:17 PM Question Answer Comments Code Status Confirmed With: Patient Care Teams Vp Strategy Relationship Specialty Start Date End Date James Trimble MD [address] [place] [address] [address] [place] [address] [email or web address] PCP - General 03/16/17 Additional Source Comments The information contained in this document represents components of the legal health record. It is not the complete legal health record.[facility]
--- OUTSIDE RECORDS SUMMARY | 2024-12-31 21:35 | XMS_ITS ---
Author Name Mr. Arlen Márquez Address [address] [place] [address] Phone [phone] [facility] Care Team Providers Care Interventional Radiology Tech Name Role Phone Micah Judge Unavailable [phone] Reason for Referral Not Available Allergies, adverse [...] 2021-11-04 No Data Available OneTouch [employer] Plus Lixmsd50H Miscellaneous TEST BLOOD SUGAR THREE OR FOUR [...] of Service Diagnosis/Co mplaint No Data Available [facility] [place] 07/12/2022 Type 2 diabetes mellitus wit h diabetic chronic kidney diseaseChronic kidney disease, stage 3bLong term (current) use of insulinMorbid (severe) obesity due to excess caloriesBody mass index (BMI) 40.0-44.9, adultOther specified health statusConstipation, unspecifiedProblems related to health literacyPrsnl hx of TIA (TIA), and cereb infrc w/o resid deficits No Data Available [facility] [place] 07/12/2022 No Data Available [facility] [place] 07/12/2022 No Data Available [facility] [place] 07/12/2022 No Data Available [facility] [place] 07/12/2022 No Data Available [facility] [place] 07/12/2022 No Data Available [facility] [place] 07/22/2022 Morbid (severe) obesity due to excess caloriesBody mass index (BMI) 40.0-44.9, adultType 2 diabetes mellitus with diabetic chronic kidney diseaseChronic kidney disease, stage 3bPrsnl hx of TIA (TIA), and cereb infrc w/o resid deficitsOther specified health status No Data Available [facility] [place] 07/22/2022 Vital Signs Date of Collection Vitals 2022-07-12 11:38:39 Height - 147.32 cmWe ight - 87.09 kgBody Mass Index (BMI) - 40.13 kg/m2 Social History Sex Female History of Procedures Procedures Service Procedure code Service date Servicing provider Phone# No Data Available [id number] 2022-07-12 No Data Available No Data Available [...] le No Data Available No Data Available [id number] 2022-07-22 No Data Available No Data Available [...]
--- OUTSIDE RECORDS SUMMARY | 2024-12-31 21:35 | XMS_ITS | Encounter Summary ---
Author Organization [employer] Address [address] [facility] 7t [place] [address] Care Team Providers Care Oracle Etl Developer Name Role Phone James Flores MD Primary Care Provide r Encounter Details Date Type Department Care Team ([facility] st Contact Info) Description 03/14/2023 Telephone [facility] [address] [place] [address] Adriana Odell [place] Social History Tobacco Use [...] on filedocumented in this encounter Care Teams Oracle Etl Developer Relationship Specialty Start Date End Date James Flores MD [address] [place] [address] PCP - General Internal Medicine 02/04/14 documented as of this encounter
--- OUTSIDE RECORDS SUMMARY | 2024-12-31 21:35 | XMS_ITS | Encounter Summary ---
Author Organization [employer] Address [address] [facility] 7t [place] [address] Care Team Providers Care Accelerator Operator Name Role Phone James Flores MD Primary Care Provide r Reason for Visit * Reason Comments Med Refill Encounter Details Date Type Department Care Team (Late st Contact Info) Description 09/04/[address] [facility] MEDICINE [address] [place] [address] Name, MD Loki [address] [place] [address] Gastroesophageal reflux disease without esophagitis Social History [...] t he electric, gas, oil or water [employer] threatened to shut off services in your [...] reflux documented in this encounter Care Teams Accelerator Operator Relationship Specialty Start Date End Date James Flores MD [address] [place] [address] PCP - General Internal Medicine 02/04/14 documented as of this encounter
--- OUTSIDE RECORDS SUMMARY | 2024-12-31 21:35 | XMS_ITS | Encounter Summary ---
Author Organization [facility] Address [address] [facility] [address] [place] [address] Phone Care Team Providers Care Casino Slot Supervisor Name Role Phone James Trimble MD Primary Care Provide r Encounter Details Date Type Department Care Team (Late st Contact Info) Description 12/20/2020 Procedure Pass [facility], Ct Scan - [address] [address] Social History Tobacco Use Types Packs/Day Years [...] AM EDT Trey Cardona i, RN * [place] Suicide Severity Rating Scale (Screener/Recent Self-Report) Question [...] documented as of this encounter Care Teams Casino Slot Supervisor Relationship Specialty Start Date End Date James Trimble MD [address] [place] [address] [address] [place] [address] [email or web address] PCP - General 03/16/17 documented as of this encounter Additional Source Comments The information contained in this document represents components of the legal health record. It is not the complete legal health record.[facility]
--- OUTSIDE RECORDS SUMMARY | 2024-12-31 21:36 | XMS_ITS | Encounter Summary ---
Author Organization [employer] Address [address] [facility] 7t [place] [address] Care Team Providers Care Property Valuer Name Role Phone James Flores MD Primary Care Provide r Encounter Details Date Type Department Care Team ([facility] st Contact Info) Description 02/21/2022 Abstract [facility] MEDICINE [address] [place] [address] James Flores MD [address] [place] [address] Social History Tobacco Use Types Packs/Day Years [...] on filedocumented in this encounter Care Teams Property Valuer Relationship Specialty Start Date End Date James Flores MD [address] [place] [address] PCP - General Internal Medicine 02/04/14 documented as of this encounter
--- OUTSIDE RECORDS SUMMARY | 2024-12-31 21:36 | XMS_ITS | Encounter Summary ---
Author Organization [employer] Address [address] [facility] 7t [place] [address] Care Team Providers Care Java Designer Name Role Phone James Folres MD Primary Care Provide r Encounter Details Date Type Department Care Team (Late st Contact Info) Description 05/11/2022 Telephone [facility] MEDICINE 230 [place], [place] [phone] James Flores MD [address] [place] [address] Social History Tobacco Use Types Packs/Day Years [...] on filedocumented in this encounter Care Teams Java Designer Relationship Specialty Start Date End Date James Flores MD [address] [place], [place] [phone] PCP - General Internal Medicine 02/04/14 documented as of this encounter
--- OUTSIDE RECORDS SUMMARY | 2024-12-31 21:36 | XMS_ITS | Encounter Summary ---
Author Organization [facility] Address [address] [facility] [address] [place] [address] Phone Care Team Providers Care Special Education Aide Name Role Phone James Trimble MD Primary Care Provide r Encounter Details Date Type Department Care Team (Late st Contact Info) Description 12/21/2020 Procedure Pass [facility] [address] [place] [address] Social History Tobacco Use Types Packs/Day Years [...] AM EDT Trey Cardona i, RN * [place] Suicide Severity Rating Scale (Screener/Recent Self-Report) Question [...] documented as of this encounter Care Teams Special Education Aide Relationship Specialty Start Date End Date James Trimble MD [address] [place] [address] [address] [place] [address] [email or web address] PCP - General 03/16/17 documented as of this encounter Additional Source Comments The information contained in this document represents components of the legal health record. It is not the complete legal health record.[facility]
--- OUTSIDE RECORDS SUMMARY | 2024-12-31 21:36 | XMS_ITS | Encounter Summary ---
Author Organization [employer] Address [address] [facility] 7t [place] [address] Care Team Providers Care Sane Nurse Name Role Phone James Flores MD Primary Care Provide r Reason for Visit * Reason Onset Date Comments Durable Medical Equipment 07/30/2024 Encounter Details Date Type Department Care Team (Late st Contact Info) Description 07/30/[address] [facility] MEDICINE [address] [place] [address] James Flores MD [address] [place] [address] Durable Medical Equipment Social History Tobacco Use [...] documented as of this encounter Care Teams Sane Nurse Relationship Specialty Start Date End Date James Flores MD [address] [place] [phone] PCP - General Internal Medicine 02/04/14 documented as of this encounter
--- OUTSIDE RECORDS SUMMARY | 2024-12-31 21:36 | XMS_ITS | Encounter Summary ---
Author Organization [employer] Address [address] [facility] 7t [place] [address] Care Team Providers Care Gas Or Petroleum Operator Name Role Phone James Flores MD Primary Care Provide r Encounter Details Date Type Department Care Team (Late st Contact Info) Description 04/13/2022 Orders Only [facility] MEDICINE 230 [place], [place] [phone] April Olsen LPN Social History Tobacco Use [...] on filedocumented in this encounter Care Teams Gas Or Petroleum Operator Relationship Specialty Start Date End Date James Flores MD [address] [place] [address] PCP - General Internal Medicine 02/04/14 documented as of this encounter
--- OUTSIDE RECORDS SUMMARY | 2024-12-31 21:36 | XMS_ITS | Encounter Summary ---
Author Organization [employer] Address [address] [facility] 7t [place] [address] Care Team Providers Care Electric Gas Appliances Demonstrator Name Role Phone James Flores MD Primary Care Provide r Encounter Details Date Type Department Care Team (Late st Contact Info) Description 03/17/2022 Orders Only [facility] [address] [place], [place] [phone] Jaja Hammond LPN Social History Tobacco Use [...] on filedocumented in this encounter Care Teams Electric Gas Appliances Demonstrator Relationship Specialty Start Date End Date James Flores MD 230 [place] [address] PCP - General Internal Medicine 02/04/14 documented as of this encounter
--- OUTSIDE RECORDS SUMMARY | 2024-12-31 21:36 | XMS_ITS | Clinical Summary ---
Author Organization [employer] Address [address] [facility] 7[address] [place] [address] Care Team Providers Care Tagman Name Role Phone James Flores MD Primary [...] the morning. 023 Active Calcium Citrate-Vitamin D ([place] Calcium/Vitamin D) 200-6.25 MG-MCG tablet TAKE 2 [...] CHANGE EVERY 14 DAYS Active Continuous Glucose Seafood Process Worker (FreeStyle [place] 3 [place]) device USE DIRECTED Active bisacodyl (Dulcolax) 10 [...] needed). 90 mL 3 Active nystatin (Mycostatin) 839892 UNIT/GM powderIndication s:Tinea corporis Apply topically 2 [...] times daily. 1 kit 025 2025 Active BD Pen Needle Nneka U/F 32G X 4 MM miscIndications: Type 2 diabetes mellitus without complication, with long-term current use of insulin ([facility]) USE DIRECTED FOUR TIMES DAILY 100 [...] complication, with long-term current use of insulin ([facility]) INJECT 6 TO 16 UNITS SUBCUTANEOUSLY [...] the skin 1 (one) time per week. 025 Active Lantus SoloStar 100 UNIT/ML penIndications:T ype 2 diabetes mellitus without complication, with long-term current use of insulin ([facility]) INJECT 35 UNITS SUBCUTANEOUSLY EVERY DAY 15 mL 2 025 Active Alcohol Swabs (Alcohol Prep) 70 % pads USE DIRECTED 100 each 11 025 Active amLODIPine (Norvasc) 5 MG tablet TAKE 1 TABLET BY MOUTH EVERY EVENING 30 tablet 5 Active loratadine (Claritin) 10 MG tabletIndication s:Seasonal allergies TAKE 1 TABLET BY MOUTH EVERY MORNING 30 tablet 5 Active Ozempic, 0.25 or 0.5 MG/DOSE, 2 [...] 30 tablet 025 2024 Discontinued(T herapy completed) amLODIPine (Norvasc) 5 MG tablet TAKE 1 TABLET BY MOUTH EVERY EVENING 30 tablet 5 025 2024 Discontinued loratadine (Claritin) 10 MG tabletIndication s:Seasonal allergies TAKE 1 TABLET BY MOUTH EVERY MORNING 30 tablet 5 025 2024 Discontinued meloxicam (Mobic) 15 MG tablet Take 1 tablet p.o./day x 2 weeks then 1 tablet/day as needed pain thereafter 30 tablet 025 2024 Discontinued(T herapy completed) insulin glargine (Lantus SoloStar) 100 UNIT/ML penIndications:T ype 2 diabetes mellitus without complication, with long-term current use of insulin (HCC) INJECT 35 UNITS SUBCUTANEOUSLY EVERY DAY 15 mL 2 025 2024 Discontinued Active Problems Problem Noted [...] x-rays of the right knee Temporal arteritis (CMS/HCC) 07/23/2024 Assessment & Plan (12/10/2024 9:35 AM EDT): Patient seen by Dr Tyree sylvester on: C/o intractable headache, TA was in his differential, Pt's ESR came back high at: Pt was treated with Prednisone and referred for a TA biopsy that patient declined and Rheumatology ( pt has not been seen due to appointments being to far out. Pt did see an Reciprocating Drill Operator that did not see any abnormalitites and [...] to far out. Pt did see an Reciprocating Drill Operator that did not see any abnormalitites and [...] to far out. Pt did see an Reciprocating Drill Operator that did not see any abnormalitites and [...] acute injury to the right knee. 2. Qpuy-rv-vcoxtmzw lateral compartment degenerative changes. Left: IMPRESSION: 1. [...] acute injury to the right knee. 2. Emhj-qt-bzyrkjwf lateral compartment degenerative changes. Left: IMPRESSION: 1. [...] underwent Colpo with biopsies & ECC per WEATHER FORCASTER notes from 04/2017 Colonoscopy: 07/2022 Tubular adenoma repeat 3 years Vaccines: Flu shot: declines tdap: 05/31/2013 Dexa scan:. 04/28/2015 showed osteopenia Assessment & Plan (03/21/2024 9:20 AM EST): Routine physical exam today: within normal limits Mammogram: NL : 02/22/2023 Pap Smear: 06/27/2023: Normal In 11/24/2016 ASCUS with positive HPV. Pt underwent Colpo with biopsies & ECC per WEATHER FORCASTER notes from 04/2017 Colonoscopy: 07/2022 Tubular adenoma repeat 3 years Vaccines: Flu shot: tdap: 05/31/2013 Dexa scan:. 04/28/2015 showed osteopenia Assessment & Plan (01/30/2024 11:02 AM EST): Routine physical exam today: within normal limits Mammogram: NL : 02/22/2023 Pap Smear: 06/27/2023: Normal In 11/24/2016 ASCUS with positive HPV. Pt underwent Colpo with biopsies & ECC per WEATHER FORCASTER notes from 04/2017 Colonoscopy: 07/2022 Tubular adenoma repeat 3-5 years Vaccines: Flu shot: tdap: 05/31/2013 Dexa scan:. 04/28/2015 showed osteopenia Assessment & Plan (01/19/2023 1:43 PM EST): Mammogram: NL : 01/29/2021 Pap Smear: 11/24/2016 ASCUS with positive HPV. 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 Melchro Weber put a ESTEPHANIE. she was under the care of Dr Dhaliwal, last seen on: 03/25/2015 His impression was that pt had CAD with 3 vessel disease and negative nuclear stress test at [facility] . Due to her Hx [...] disease and negative nuclear stress test at [facility] . Due to her Hx [...] disease and negative nuclear stress test at [facility] . Due to her recent [...] disease and negative nuclear stress test at [facility] . Due to her recent [...] Encounters Date Type Department Care Team Description 12/27/2024 Refill [facility] [address] [place] [address] James Flores MD Seasonal allergies 12/22/2024 Refill [facility] [address] [place], [place] [phone] James Flores MD 12/16/2024 Refill [facility] [address] [place] [address] James Flores MD Type 2 diabetes mellitus without complication, with long-term current use of insulin (HCC) 12/10/2024 9:15 AM EDT Office Visit [facility] [address] [place] [phone] James Flores MD Type 2 diabetes mellitus with stage 3a chronic kidney disease, with long-term current use of insulin (CMS/HCC) (Primary Dx); Hypertension, unspecified type; CKD stage 3 secondary to diabetes (CMS/HCC); Coronary artery disease involving [place] coronary artery of [place] heart without angina pectoris; Closed fracture of phalanx of left fifth toe with routine healing; Urinary incontinence, unspecified type; Hair loss; Temporal arteritis (CMS/HCC); Age-related osteoporosis without current pathological fracture; Preventative health care 12/10/2024 Orders Only GENERIC EXTERNAL DATA DEPARTMENT Provider, Generic External Data 12/10/2024 Travel 12/09/2024 Telephone [facility] [address] [place] [address] James Flores MD chart prep 11/27/2024 Refill [facility] [address] [place] [address] James Flores MD 11/22/2024 Refill [facility] [address] [place] [address] James Flores MD Chronic anemia 11/20/2024 Orders Only GENERIC EXTERNAL DATA DEPARTMENT Provider, Generic External Data 11/20/2024 Refill [facility] [address] [place] [address] James Flores MD Type 2 diabetes mellitus without complication, with long-term current use of insulin (CMS/HCC) 11/19/2024 Refill [facility] [address] [place] [address] James Flores MD 11/14/2024 Abstract [facility] [address] [place] [address] Yazmin Ashraf [place] 11/13/2024 Orders Only GENERIC EXTERNAL DATA DEPARTMENT Provider, Generic External Data 11/01/2024 Results Follow-Up [facility] [address] [place] [phone] Ruchi Ayala MD XR Foot 3+ Views Left 10/31/2024 Orders Only GENERIC EXTERNAL DATA DEPARTMENT Provider, Generic External Data 10/30/2024 6:00 PM EDT Office Visit [facility] [address] [place] [phone] Ruchi Ayala MD Pain of toe of left foot (Primary Dx); Acute left-sided low back pain without sciatica 10/30/2024 Travel 10/16/2024 Telephone [facility] [address] [place] [phone] James Flores MD Durable Medical Equipment 10/07/[address] [address] James Flores MD Durable Medical Equipment 10/02/[address] [address] James Flores MD Med Refill from Last [...] 01/29/2025 01/30/2024, 01/30/20 24 Diabetes: Hemoglobin A1C 03/11/2025 025, 10/31/2024, 09/03/2024, [...] Name Priority Date/Time Associated Diagnosis Comments XR SHOULDER 2+ VIEWS LEFT Routine 12/31/2024 4:24 PM EDT XR LUMBAR SPINE 2-3 VIEWS Routine 12/31/2024 4:15 PM EDT IMMUNOFIXATION, URINE Routine 12/10/2024 2:42 PM EDT [...] disease, with long-term current use of insulin ([facility]) POCT GLYCOSYLATED HEMOGLOBIN (HGB A1C) Routine 12/10/2024 9:26 AM EDT Type 2 diabetes mellitus with stage 3a chronic kidney disease, with long-term current use of insulin ([facility]) CALCIUM Routine 11/20/2024 11:16 AM EDT CREATININE, [...] Relevant to Health Maintenance Results * XR Shoulder 2+ Views Left (12/31/2024 4:24 PM EDT) Anatomical Region Laterality Modality Upper Extremities, Shoulder Left Radi ographic Imaging 12/31/2024 4:24 PM EDT Narrative 12/31/2024 4:33 PM EDT [place] [address] XRay Report Signed Patient: Jayne Lane MR#: [id number] : 1955 Acct:[id number] Age/Sex: 69 / F ADM Date: 12/31/24 Loc: HO.ED Attending Dr: Ordering Physician: Patrick Borrego Date of Service: 12/31/24 Procedure(s): XR shoulder LT min 2V Accession Number(s): [id number] cc: James Trimble MD; Patrick Borrego Reason for Exam: pain EXAMINATION: XR SHOULDER, LEFT CLINICAL INFORMATION: pain COMPARISON: Previous x-ray July 2024 TECHNIQUE: 3 axillary views of the left shoulder. FINDINGS: Bone alignment is normal. No fracture or dislocation. Mild osteoarthritis at the acromioclavicular joint with joint space narrowing and osteophyte formation. There is also mild joint space narrowing at the glenohumeral joint. There are soft tissue calcifications or ossifications adjacent to the acromion similar to previous exam. XR/XR shoulder LT min 2V IMPRESSION: Degenerative changes similar to July 2024. No fracture seen. Electronically signed by: Karina Yanez MD 12/31/2024 04:31 PM EDT RP Dictated By: Karina Yanez MD Signed By: <Electronically signed by Karina Yanez MD in OV> 12/31/24 1631 DD/ 1624 TD/TT: 12/31/24 1625 Construction Safety Consultant: BHANU Procedure Note Donotuseinterpreter, Image - 12/31/[address] [address] XRay Report Signed Patient: Jayne LaneMR#: [id number] : 1955cct:[id number] Age/Sex: 69 / FADM Date: 12/31/24 Loc: .ED Attending Dr: Ordering Physician: Patrick Borrego Date of Service: 12/31/24 Procedure(s): XR shoulder LT min 2V Accession Number(s): [id number] cc: James Trimble MD; Patrick Borrego Reason for Exam: pain EXAMINATION: XR SHOULDER, LEFT CLINICAL INFORMATION: pain COMPARISON: Previous x-ray July 2024 TECHNIQUE: 3 axillary views of the left shoulder. FINDINGS: Bone alignment is normal. No fracture or dislocation. Mild osteoarthritis at the acromioclavicular joint with joint space narrowing and osteophyte formation. There is also mild joint space narrowing at the glenohumeral joint. There are soft tissue calcifications or ossifications adjacent to the acromion similar to previous exam. XR/XR shoulder LT min 2V IMPRESSION: Degenerative changes similar to July 2024. No fracture seen. Electronically signed by: Karina Yanez MD 12/31/2024 04:31 PM EDT RP Dictated By: Karina Yanez MD Signed By: <Electronically signed by Karina Yanez MD in OV> 12/31/24 1631 DD/ 1624 TD/TT: 12/31/241624 Construction Safety Consultant: BHANU us [facility] External Provider IMG XR PROCEDURES Final Result * XR Lumbar Spine 2-3 Views (12/31/2024 4:15 PM EDT) Anatomical Region Laterality Modality Spine, L-spine Radiographic Rena ging 12/31/2024 4:15 PM EDT Narrative 12/31/2024 4:35 PM EDT [address] [address] XRay Report Signed Patient: Jayne Lane MR#: [id number] : 1955 Acct:[id number] Age/Sex: 69 / F ADM Date: 12/31/24 Loc: HO.ED Attending Dr: Ordering Physician: Patrick Borrego Date of Service: 12/31/24 Procedure(s): XR lumbar spine 2-3V Accession Number(s): [id number] cc: James Trimble MD; Patrick Borrego Reason for Exam: pain EXAMINATION: XR LUMBOSACRAL SPINE CLINICAL INFORMATION: pain COMPARISON: None available. TECHNIQUE: Three views of the lumbosacral spine. FINDINGS: Mild curvature of the lumbar spine to the right. Bone alignment is otherwise normal. No fracture or dislocation. Mild degenerative spondylosis at L3-4 and L5-S1. Mild disc space narrowing at L5-S1. Lower lumbar spine facet arthritis. Atherosclerotic disease. XR/XR lumbar spine 2-3V IMPRESSION: Degenerative changes and mild scoliosis. Electronically signed by: Karina Yanez MD 12/31/2024 04:33 PM EDT Dictated By: Karina Yanez MD Signed By: <Electronically signed by Karina Yanez MD in OV> 12/31/24 1633 DD/ 1615 TD/TT: 12/31/245 Construction Safety Consultant: BHANU Procedure Note Donotuseinterpreter, Image - 12/31/[address] [address] XRay Report Signed Patient: Jayne LaneMR#: [id number] : 6Acct:[id number] Age/Sex: 69 / FADM Date: 12/31/24 Loc: HO.ED Attending Dr: Ordering Physician: Patrick Borrego Date of Service: 12/31/24 Procedure(s): XR lumbar spine 2-3V Accession Number(s): [id number] cc: James Trimble MD; Patrick Borrego Reason for Exam: pain EXAMINATION: XR LUMBOSACRAL SPINE CLINICAL INFORMATION: pain COMPARISON: None available. TECHNIQUE: Three views of the lumbosacral spine. FINDINGS: Mild curvature of the lumbar spine to the right. Bone alignment is otherwise normal. No fracture or dislocation. Mild degenerative spondylosis at L3-4 and L5-S1. Mild disc space narrowing at L5-S1. Lower lumbar spine facet arthritis. Atherosclerotic disease. XR/XR lumbar spine 2-3V IMPRESSION: Degenerative changes and mild scoliosis. Electronically signed by: Karina Yanez MD 12/31/2024 04:33 PM EDT Dictated By: Karina Yanez MD Signed By: <Electronically signed by Karina Yanez MD in OV> 12/31/24 1633 DD/ 1615 TD/TT: 12/31/24 1625 Construction Safety Consultant: HBANU [facility] External Provider IMG XR PROCEDURES Final Result * Immunofixation (SONIA), Urine (12/10/2024 2:42 PM EDT) Only the most recent of2 resultswithin the time period is included. SONIA Interpretation [facility] Comment:No monoclonal protei ns detected.THIS TEST WAS PERFORMED AT:[facility] [place] [phone] CHAND MD 12/10/2024 2:42 PM EDT 12/10/2024 4:05 PM EDT us Generic External Data Provider LAB URINE ORDERAB LES Final Result Performing Organization Address City/[facility]/ZIP Co de Phone Number [facility] [address] [place] [phone] * Vitamin D, 25-Hydroxy, Total, Immunoassay (12/10/2024 9:50 AM EDT) Vitamin D 25-OH Total 47.1 >30 ng/mL [facility] Comment: Health Based Reference Values*< 20 ng/mL Exetabtzv99-20 ng/mL Insufficient> 30 ng/mL Sufficient*Altagracia GOODWIN. N [...] ORDERAB LES Final Result Performing Organization Address City/[facility]/ZIP Co de Phone Number [facility] [address] [place] [phone] * TSH with Reflex to Free T4 (12/10/2024 9:50 AM EDT) TSH reflex Free T4 1.76 0.32 - 4.0 uIU/mL [facility] Blood Venous blood specimen / Unknown 12/10/2024 9:50 AM EDT 12/10/2024 11:50 AM EDT us James Ashraf MD LAB BLOOD ORDERABLES Final Result Performing Organization Address [facility] Co de Phone Number [facility] [address] [place] [phone] * (ABNORMAL) Creatinine, Serum (12/10/2024 9:50 AM EDT) Only the most recent of2 resultswithin the time period is included. Creatinine, Serum 1.48(H) 0.5 - 1.4 mg/dL [facility] Estimated Glomerular Filt Rate 35 [facility] Comment:Chronic Kidney Disea se: Estimated GFR < 60 mL/min/1.98q3Qfyvzh Kidney Disease: Estimated GFR < 15 mL/min/1.73m2 12/10/2024 9:50 AM EDT 12/10/2024 11:50 AM EDT us Generic External Data Provider LAB BLOOD ORDERAB LES Final Result Performing Organization Address [facility] Co de Phone Number [facility] [address] [place] [phone] * Immunofixation, Serum (12/10/2024 9:50 AM EDT) Only the most recent of2 resultswithin the time period is included. IMMUNOGLOBULIN G 851 600 - 1540 mg/dL [facility] IMMUNOGLOBULIN A 196 70 - 320 mg/dL [facility] Immunoglobulin M 75 50 - 300 mg/dL [facility] Comment:THIS TEST WAS PERFOR MED AT:[facility] [place] [phone] CHAND MD Immunofixation Result SEE NOTE [facility] Comment:Normal pattern. No m onoclonal proteins detected. 12/10/2024 9:50 AM EDT 12/10/2024 11:50 AM EDT Generic External Data Provider LAB BLOOD ORDERAB LES Final Result Performing Organization Address City/[facility]/ZIP Co de Phone Number [facility] [address] [place] [phone] * (ABNORMAL) BUN (Blood Urea Nitrogen) (12/10/2024 9:50 AM EDT) Only the most recent of2 resultswithin the time period is included. Urea Nitrogen (BUN) 25(H) 9 - 16 mg/dL [facility] 12/10/2024 9:50 AM EDT 12/10/2024 11:50 AM EDT Generic External Data Provider LAB BLOOD ORDERAB LES Final Result Performing Organization Address [facility] Co de Phone Number [facility] [address] [place] [phone] * PTH, Intact Without Calcium (12/10/2024 9:50 AM EDT) Parathyroid Hormone, Intact 71.3 8.7 - 77.1 pg/mL [facility] 12/10/2024 9:50 AM EDT 12/10/2024 11:50 AM EDT Generic External Data Provider LAB BLOOD ORDERAB LES Final Result Performing Organization Address [facility] Co de Phone Number [facility] [address] [place] [phone] * Calcium (12/10/2024 9:50 AM EDT) Only the most recent of2 resultswithin the time period is included. Calcium 9.5 8.4 - 10.2 mg/dL [facility] 12/10/2024 9:50 AM EDT 12/10/2024 11:50 AM EDT Generic External Data Provider LAB BLOOD ORDERAB LES Final Result Performing Organization Address [facility]/RUST de Phone Number [facility] [address] [place] [phone] * (ABNORMAL) Electrolyte Panel (12/10/2024 9:50 AM EDT) Only the most recent of2 resultswithin the time period is included. Sodium 144 135 - 145 mmol/L [facility] Potassium 4.9 3.3 - 5.1 mmol/L [facility] Chloride 109(H) 96 - 108 mmol/L [facility] Carbon Dioxide 29 22 - 29 mmol/L [facility] Anion Gap 11(L) 12 - 20 [facility] 12/10/2024 9:50 AM EDT 12/10/2024 11:50 AM EDT Generic External Data Provider LAB BLOOD ORDERAB LES Final Result Performing Organization Address [facility] Co de Phone Number [facility] [address] [place] [phone] * (ABNORMAL) POCT glucose manually resulted (12/10/2024 9:27 AM EDT) Glucose Blood, POC 8.5(A) 60 - 200 mg/dL [employer] Media Lot # [id number] Lot# Expiration Date [id number] Blood Capillary blood specimen / Unknown 12/10/2024 9:27 AM EDT James Ashraf MD POINT OF CARE TEST ENTER/EDIT ORDERABLES Edited Result - Final * (ABNORMAL) POCT glycosylated hemoglobin (Hgb A1c) (12/10/2024 9:26 AM EDT) Hemoglobin A1C 255.0(A) 4.0 - 5.7 % QC Media Lot # [id number] Lot# Expiration Date ,[id number] Blood Capillary blood specimen / Unknown 12/10/2024 [...] Whole Blood 102 60 - 115 mg/dL [facility] Comment:METER #: [id number] 0Testing performed in the Endocrinology Department [address] , [address], [place]. 11/13/2024 9:56 AM EDT 11/13/2024 10:00 AM EDT Generic External Data Provider LAB BLOOD ORDERAB LES Final Result [facility] [address] [place] [phone] * BI Mammogram Screening Tomosynthesis Bilateral (11/04/2024 11:10 AM EDT) Anatomical Region Laterality Modality Breast Bilateral Mammography 11/04/2024 11:1 0 AM EDT Narrative 11/08/2024 5:49 PM EDT [facility] [address] [place] [address] Mammography Report Signed Patient: Jayne Lane MR#: [id number] : 1955 Acct:[id number] Age/Sex: 69 / F ADM Date: 11/04/24 Loc: HO.MAMMO Attending Dr: James Trimble MD Ordering Physician: James Trimble MD Resu lts: 1Negative Date of Service: 11/04/24 Follow Up: 1 Year From Orig ina Mammogram Procedure(s): MM tomosynthesis screening BI Accession Number(s): [id number] cc: James Trimble MD EXAMINATION: MM SCREENING [...] 11/08/24 1746 DD/ 1110 TD/TT: 11/04/24 1133 Construction Safety Consultant: Procedure Note Donotuseinterpreter, Image - 11/08/2024 [place] [facility] [address] [place], [place] [address] Mammography Report Signed Patient: Jayne LaneMR#: [id number] : 6Acct:[id number] Age/Sex: 69 / FADM Date: 11/04/24 Loc: HO.MAMMO Attending Dr: James Trimble MD Ordering Physician: James Trimble MDResu lts: 1Negative Date of Service: 11/04/24Follow Up: 1 Year From Orig inal Mammogram Procedure(s): MM tomosynthesis screening BI Accession Number(s): [id number] cc: James Trimble MD EXAMINATION: MM SCREENING [...] 11/08/24 1746 DD/ 1110 TD/TT: 11/04/24 1133 Construction Safety Consultant: us James Ashraf MD IMG BI PROCEDURES Fin al Result * Proteinase-3 Antibody (10/31/2024 10:27 AM EDT) Proteinase-3 Antibody <1.0 [facility] Comment:Value Interpretation ----- <1.0 No Antibody Detected > or = 1.0 Antibody DetectedAutoantibodies to proteinase-3 (UT-3) are accepted ascharacteristic for granulomatosis with polyangiitis(GPA, Cresencio's), and are detectable in 95% of thehistologically proven cases. The cytoplasmic IFApattern, (c-ANCA), is based largely on autoantibody toPR-3 which serves as the primary antigen.These autoantibodies are present in active disease.THIS TEST WAS PERFORMED AT:[facility] [place] [phone] CHAND MD 10/31/2024 10:2 7 AM EDT 10/31/2024 11:25 AM EDT us Generic External Data Provider LAB BLOOD ORDERAB LES Final Result [facility] [address] [place] [phone] * Myeloperoxidase Antibody (MPO) (10/31/2024 10:27 AM EDT) Myeloperoxidase Antibody <1.0 [facility] Comment:Value Interpretation ----- <1.0 No Antibody Detected > or = 1.0 Antibody DetectedAutoantibodies to myeloperoxidase (MPO) are commonlyassociated with the following small-vesselvasculitides: microscopic polyangiitis,polyarteritis nodosa, Churg-Kelton syndrome,necrotizing and crescentic glomerulonephritis andoccasionally granulomatosis with polyangiitis(GPA, Cresencio's). The perinuclear IFA pattern,(p-ANCA) is based largely on autoantibody tomyeloperoxidase which serves as the primary antigen.These autoantibodies are present in active disease.THIS TEST WAS PERFORMED AT:[facility] [place] [phone] CHAND MD 10/31/2024 10:2 7 AM EDT 10/31/2024 11:25 AM EDT Generic External Data Provider LAB BLOOD ORDERAB LES Final Result Performing Organization Address [facility]/RUST de Phone Number [facility] [address] [place] [phone] * (ABNORMAL) Protein Creatinine Ratio, Urine (10/31/2024 10:27 AM EDT) Creatinine, Urine 133.81 mg/dL [facility] Protein, Total, Random Urine 58(H) <12 mg/dL [facility] Protein/Creati nine Ratio, Ur 0.43(H) <0.2 [facility] Comment:The spot urine prote in:creatinine ratio may increase to 0.3during normal . 10/31/2024 10:2 7 AM EDT 10/31/2024 11:10 AM EDT Generic External Data Provider LAB URINE ORDERAB LES Final Result Performing Organization Address [facility] de Phone Number [facility] [address] [place] [phone] * Phospholipase A2 Receptor (PLA2R) Antibody Panel (10/31/2024 10:27 AM EDT) Phospholipase A2 Receptor (PLA2R) Ab, ABHIJEET <4 RU/mL [facility] Comment:Reference Range: <14 : NEGATIVE 14-19: BORDERLINE >19: POSITIVE Phospholipase A2 Receptor (PLA2R) Ab, IFA NEGATIVE NEGATIVE [facility] Comment:THIS TEST WAS PERFOR MED AT:[facility]/[id number] [place] [address]EHWKHOLEG DELATORRE MD,PHD,SHU 10/31/2024 10:2 7 AM EDT 10/31/2024 11:25 AM EDT us Generic External Data Provider LAB BLOOD ORDERAB LES Final Result Performing Organization Address [facility] Co de Phone Number [facility] [address] [place] [phone] * Glomerular Basement Membrane Antibody (IgG) (10/31/2024 10:27 AM EDT) Glomerular Basement Memebrane Antibody (IgG) <1.0 AI [facility] Comment:Value Interpretation ----- <1.0 No Antibody Detected > or = 1.0 Antibody DetectedTHIS TEST WAS PERFORMED AT:[facility] [address] [phone] CHAND MD 10/31/2024 10:2 7 AM EDT 10/31/2024 11:25 AM EDT us Generic External Data Provider LAB BLOOD ORDERAB LES Final Result Performing Organization Address [facility] Co de Phone Number [facility] [address] [place] [phone] * DNA (ds) Antibody (10/31/2024 10:27 AM EDT) Anti DNA DS Antibody 1 IU/mL [facility] Comment:IU/mL Interpretation < or = 4 Negative 5-9 Indeterminate > or = 10 PositiveTHIS TEST WAS PERFORMED AT:[facility] [address] [phone] CHAND MD 10/31/2024 10:2 7 AM EDT 10/31/2024 11:25 AM EDT us Generic External Data Provider LAB BLOOD ORDERAB LES Final Result Performing Organization Address City/[facility] Co de Phone Number [facility] [address] [place] [phone] * Hepatitis B surface antigen, EIA (10/31/2024 10:27 AM EDT) Hepatitis B Surface Ag Negative Negative [facility] 10/31/2024 10:2 7 AM EDT 10/31/2024 11:25 AM EDT Generic External Data Provider LAB BLOOD ORDERAB LES Final Result Performing Organization Address City/[facility]/ZIP Co de Phone Number [facility] [address] [place] [address] [phone] * Hepatitis B Core Antibody, Total (10/31/2024 10:27 AM EDT) Hepatitis B Core Antibody Nonreactive Nonreactive [facility] 10/31/2024 10:2 7 AM EDT 10/31/2024 11:25 AM EDT Generic External Data Provider LAB BLOOD ORDERAB LES Final Result Performing Organization Address [facility] de Phone Number [facility] [address] [place] [phone] * Complement Component C3c (10/31/2024 10:27 AM EDT) Complement C3 171 83 - 193 mg/dL [facility] Comment:THIS TEST WAS PERFOR MED AT:[facility] [address] [phone] CHAND MD 10/31/2024 10:2 7 AM EDT 10/31/2024 11:21 AM EDT Generic External Data Provider LAB BLOOD ORDERAB LES Final Result Performing Organization Address [facility] Co de Phone Number [facility] [address] [place] [phone] * Complement Component C4c (10/31/2024 10:27 AM EDT) Complement C4 37 15 - 57 mg/dL [facility] Comment:THIS TEST WAS PERFOR MED AT:[facility] [place] [phone] CHAND MD 10/31/2024 10:2 7 AM EDT 10/31/2024 11:21 AM EDT Generic External Data Provider LAB BLOOD ORDERAB LES Final Result Performing Organization Address [facility]/ZIP Co de Phone Number [facility] [address] [place] [phone] * C-reactive Protein (10/31/2024 10:27 AM EDT) Pathologist [facility] C Reactive Protein <0.10 < or = 0.50 mg/dL [facility] Blood Venous blood specimen / Unknown 10/31/2024 10:27 AM EDT 10/31/2024 11:25 AM EDT Ludwin Sylvester MD LAB BLOOD ORDERABLES Final Resul t Performing Organization Address [facility] de Phone Number [facility] [address] [place] [phone] * (ABNORMAL) Hemoglobin A1c (10/31/2024 10:27 AM EDT) Hemoglobin A1c 7.7(H) <6.0 % [facility] Comment:Hemoglobin A1C Refer ence Range Adults: 4.8 - 6.0 % Non diabetic: < 6.0 % Goal: < 7.0 %Additional Action Suggested: > 8.0 %Note: Hemoglobin A1c results are invalid for patients with abnormal amounts of HbF. Blood transfusions may impact the HbA1c concentration in the patient sample. Estimated Average Glucose 174 mg/dL [facility] Comment:eAG = Estimated ave rage glucose which is %A1C expressed asaverage glucose, using the formula of the L1N-SpwesikFbwvblo Glucose study (ADAG), Diabetes Care, Vol.31,#8,Oct. 2007 10/31/2024 10:2 7 AM EDT 10/31/2024 11:25 AM EDT Generic External Data Provider LAB BLOOD ORDERAB LES Final Result Performing Organization Address City/[facility]/ZIP Co de Phone Number [facility] [address] [place] [phone] * Lipid Panel, Standard (10/31/2024 10:27 AM EDT) Triglycerides 126 <150 mg/dL [facility] Comment:Desirable Triglyceri de: less than 150 mg/dLBorderline High Triglyceride 150-199 mg/dLHigh Triglyceride: 200-499 mg/dLVery High Triglyceride: greater than or equal to 5OO mg/dL Cholesterol 139 <200 mg/dL [facility] Comment:Desirable Cholestero l: less than 200 mg/dLBorderline High Cholesterol: 200-239 mg/dLHigh Cholesterol: greater than 239 mg/dL LDL Cholesterol Calculated 71 <100 mg/dL [facility] Comment:Desirable LDL: less than 100 [...] ORDERAB LES Final Result Performing Organization Address City/[facility]/ZIP Co de Phone Number [facility] [address] [place] [phone] [phone] * (ABNORMAL) Comprehensive Metabolic Panel (10/31/2024 10:27 AM EDT) Sodium 143 135 - 145 mmol/L [facility] Potassium 4.2 3.3 - 5.1 mmol/L [facility] Chloride 106 96 - 108 mmol/L [facility] Carbon Dioxide 29 22 - 29 mmol/L [facility] Anion Gap 12 12 - 20 [facility] Urea Nitrogen (BUN) 26(H) 9 - 16 mg/dL [facility] Creatinine, Serum 1.38 0.5 - 1.4 mg/dL [facility] Estimated Glomerular Filt Rate 38 [facility] Comment:Chronic Kidney Disea se: Estimated GFR < 60 mL/min/1.24z7Ouccro Kidney Disease: Estimated GFR < 15 mL/min/1.73m2 Glucose 141(H) 60 - 115 mg/dL [facility] Calcium 10.0 8.4 - 10.2 mg/dL [facility] Bilirubin, Total 0.3 0.0 - 1.0 mg/dL [facility] Aspartate Amino Transferase 29 5 - 31 U/L [facility] Alanine Aminotransferase 17 0 - 31 U/L [facility] Total Protein 7.1 6.5 - 8.0 g/dL [facility] Albumin Level 4.4 3.5 - 5.0 g/dL [facility] Alkaline Phosphatase 57 39 - 117 U/L [facility] 10/31/2024 10:2 7 AM EDT 10/31/2024 11:25 AM EDT us Generic External Data Provider LAB BLOOD ORDERAB LES Final Result Performing Organization Address City/State/[facility] Co de Phone Number [facility] [address] [place] [phone] * XR Foot 3+ Views Left (10/31/2024 10:14 AM EDT) Anatomical Region Laterality Modality Lower Extremities, Foot Left Radiogra phic Imaging 10/31/2024 10:1 4 AM EDT Narrative 10/31/2024 10:28 AM EDT [facility] [address] [place] [address] XRay Report Signed Patient: Jayne Lane MR#: [id number] : 1955 Acct:[id number] Age/Sex: 69 / F ADM Date: 10/31/24 [facility]: Ruchi Osman MD Ordering Physician: Ruchi Ayala MD Date of Service: 10/31/24 Procedure(s): XR foot LT min 3V Accession Number(s): [id number] cc: Ruchi Ayala MD; James Trimble MD [...] 10/31/24 1025 DD/ 1014 TD/TT: 10/31/24 1018 Construction Safety Consultant: Procedure Note Donotuseinterpreter, Image - 10/31/[address] [address] XRay Report Signed Patient: Jayne LaneMR#: [id number] : 1955cct:[id number] Age/Sex: 69 / FADM Date: 10/31/24 [facility]: Ruchi Osman MD Ordering Physician: Ruchi Ayala MD Date of Service: 10/31/24 Procedure(s): XR foot LT min 3V Accession Number(s): [id number] cc: Ruchi Ayala MD; James Trimble MD [...] 10/31/24 1025 DD/ 1014 TD/TT: 10/31/24 1018 Construction Safety Consultant: us Ruchi Osman MD IMG XR PROCEDURES Fin al Result * Referral to Ophthalmology (06/20/2024) us Ludwin Sylvester MD OUTPATIENT REFERRAL ORDERABLES F inal Result * Pap Smear (06/22/2023 3:20 PM EDT) 06/22/2023 3:20 PM EDT 06/27/2023 11:15 AM EDT Narrative [facility] - 07/11/2023 2:16 PM EDT ----- ------- Name: Jayne Lane Age/Sex: 68/F : 1955 Unit#: [id number] Attend Dr: Opal Carranza CNM Re06/22/23 Status: DEP REF Location: [facility] Disch: ----- ------- SPEC : [id number] RECD: 06/27/23-1115 STATUS: DERRELL CHACKO NUM: [id number] CYRUS: 06/22/23-[address] [facility] [address]: Opal Carranza CNM ENTERED: 06/27/23-1232 SP TYPE: Pap Smr OTHR [...] 59, 66, 68) HPV testing performed by [facility] P[employer] Tabat[facility]ai, Bro[employer], [place], [place]. See reference laboratory portion of the EMR for entire report. Clinical Information LMP: Menopause Previous PAP test: 02/01, Abnormal Other surgery:03/30 colpo DELPHINE I Other history: 2015 +HPV ACUS, 07/29 +HPV Material Received ThinPrep-Cervical Copies To: James Trimble MD [address] [place] [address] Opal Carranza [address] [place] [address] ----- ------- Signed (signature on file) Ev Woronoco 07/11/23 1416 ----- ------- END OF REPORT Generic External Data Provider LAB CYTOLOGY RAINERE RABLES Final Result [facility] [address] [place] [phone] * Colonoscopy (07/11/2022 3:53 PM EDT) [facility] Colonoscopy Normal Normal Comment:Tubular adenoma Historical Provider HEALTH MAINTENANCE Final Result * HPV E6/E7 RFLX DANIAL 16 18/45 (01/17/2022 4:22 PM EST) [facility] HPV 16 RNA TNP [employer]ED [employer] HPV 18/45 RNA TNP [employer] HPV E6 E7 ADD TNP [employer] HPV mRNA E6/E7 rflx Not Detected Not Detected [facility] Comment: Methodology: Back Hoe Machine Operator-Mediated Amplification This assay detects E6/E7 viral messenger RNA (mRNA) from 14 high-risk HPV types (16,18,31,33,35,39,45,51,52,56,58,59,66,68). Cervical sources are required for HPV testing. If a vaginal source from a patient who has had a total hysterectomy with removal of cervix was submitted, please contact the testing laboratory for alternative testing options. For additional information, please refer to http://education.[employer]/faq/NML104l6 (This link if provided for information/ educational purposes only.) THIS TEST WAS PERFORMED AT: [facility] [address] [place] [address],[place] [address] KEVEN CHAND MD 01/17/2022 4:22 PM EST Opal Carranza HISTORICAL/NON ORDERABLE LABS Fi nal Result CONVERTED LEGACY LABS from Last 3 Months or Most Recently Relevant to Health Maintenance Insurance [facility] FDC OPTIONS (HMO D-SNP) Care Teams Tagman Relationship Specialty Start Date End Date James Flores MD [address] [place] [address] PCP - General Internal Medicine 02/04/14
== END 2024-12-31 19:41 | disposition home or self-care (01) ==
PROVIDERS: Emergency Provider Emergency Medicine; PCP Internal Medicine
DX: S13.4XXA Sprain of ligaments of cervical spine, initial encounter (principal); V49.59XA Passenger injured in collision with other motor vehicles in traffic accident, initial encounter; Y93.9 Activity, unspecified; Y92.9 Unspecified place or not applicable; M54.50 Low back pain, unspecified; M25.512 Pain in left shoulder
CPT/HCPCS: 72100; 73030; 99282; 99283

== ENCOUNTER → 2024-12-31 16:04 | Outpatient (BNV) | payer OTHER, SELFPAY | PROVIDERS: PCP Internal Medicine; Visit Provider Radiology Diagnostic Radiology | DX: M51.360 Other intervertebral disc degeneration, lumbar region with discogenic back pain only (principal); M41.86 Other forms of scoliosis, lumbar region; M19.012 Primary osteoarthritis, left shoulder | CPT/HCPCS: 72100; 73030 ==

== ENCOUNTER → 2025-01-22 09:52 | Outpatient (REF) | payer OTHER, SELFPAY ==
--- NOTE | ~2025-01-22 | NM_ITS ---
Lexiscan Myocardial perfusion study Indication: Precordial chest pain to evaluate for myocardial ischemia Technique: The patient was brought in for a Lexiscan perfusion study on 01/22/2025 and was injected 0.4 mg of Lexiscan intravenously. Within a minute of this injection 25 mCi of sestamibi was given intravenously. Images were obtained using the SPECT gamma camera interlaced with the gating device. Images were obtained in supine position. Resting perfusion study was performed on 01/23/2025. Patient was administered 25 mCi of sestamibi intravenously at rest. Images were then obtained in supine position. Images were processed with the software and compared side to side in short axis, horizontal long axis and vertical long axis views. Images obtained without without CT attenuation. Total DLP 160 mGy-cm. Findings: The stress perfusion study showed nonattenuated images show normal uptake of radiotracer in all segments of the LV myocardium. Attenuated corrected images show mildly reduced uptake in the apex of the LV myocardium. There is suggestion of left ventricular hypertrophy present. The gated study shows normal LV systolic function with calculated LVEF of greater than 60%. LV cavity is normal in size. The gated study shows normal systolic wall thickening and contraction of segments. Resting study shows no change in perfusion pattern compared to stress perfusion study. Gating at rest reveals normal systolic wall motion with ejection fraction at 66%. The findings are consistent with normal myocardial perfusion. NM/NM mata perf SPECT rest & str Impression: 1. Myocardial perfusion imaging study shows normal myocardial perfusion 2. Gated LVEF is 66% 3. Transient ischemic dilatation not present Nondiagnostic changes on EKG. Electronically signed by: Ger Anderson MD 01/23/2025 03:55 PM [facility]
--- NOTE | 2025-01-22 09:54 | CA_ITS ---
Acquisition Time: 2025-01-22 10:34:57 Total Exercise Time: 00:02:00 Test Indications: CP Medications: SEE H&P Protocol: LEXISCAN Max HR: 89 BPM 58% of Pred: 151 BPM Max BP: 124/68 mmHG Max Work Load: 1.0 METS Pharmacological stress test with Lexiscan while pt moves her legs in chair, with reports of SOB, without any arrythmias, with normotensive response to injection. Nondiagnostic EKG for ischemia. In recovery, pt treated with IVP Aminophylline 75 mg to reverse Lexiscan after which pt feeling back to baseline. Nuclear images pending. Test reviewed with Dr. Anderson. Referred By: Rohan Singh Electronically Signed By: Nick Albright
--- OUTSIDE RECORDS SUMMARY | 2025-01-22 11:19 | XMS_ITS | Encounter Summary ---
Author Organization [employer] Address [address] [facility] [address] [place] [address] Care Team Providers Care Bird Trapper Name Role Phone James Flores MD Primary Care Provide r Encounter Details Date Type Department Care Team (Late st Contact Info) Description 01/09/2023 Orders Only [facility] CHC MED & PEDS [address] [place] [address] Jaja Hammond LPN Social History Tobacco Use [...] on filedocumented in this encounter Care Teams Bird Trapper Relationship Specialty Start Date End Date James Flores MD [address] [place] [phone] PCP - General Internal Medicine 02/04/14 documented as of this encounter
--- OUTSIDE RECORDS SUMMARY | 2025-01-22 11:19 | XMS_ITS | Encounter Summary ---
Author Organization [employer] Address [address] [facility] 7t [place] [address] Care Team Providers Care Manager Ship Name Role Phone James Flores MD Primary Care Provide r Reason for Visit * Reason Onset Date Comments Call Back Request 08/07/2024 Appointment Request 08/07/2024 Encounter Details Date Type Department Care Team ([facility] st Contact Info) Description 08/07/2024 Telephone [facility] [address] [place] [address] James Flores MD [address] [place] [address] Call Back Request; Appointment Request Social History [...] request for telehealth visit Please return call [phone] documented in this encounter Plan of Treatment Not on file documented as of this encounter Visit Diagnoses Not on filedocumented in this encounter Additional Health Concerns Assessment Noted Time PHQ-9 Depression Total Score: 0 01/30/20 24 10:37 AM EST documented as of this encounter Care Teams Manager Ship Relationship Specialty Start Date End Date James Flores MD [address] [place] [address] PCP - General Internal Medicine 02/04/14 documented as of this encounter
--- OUTSIDE RECORDS SUMMARY | 2025-01-22 11:19 | XMS_ITS | Clinical Summary ---
Author Organization [address] [facility] Address [address] [place] [address] Phone Care Team Providers Care Food Handler Name Role Phone Ruchi Ayala MD Primary [...] 9:30 AM EDT Office Visit Orthopedic Surgery [facility] [address] [phone] Nii Frias DPM Pain (Primary Dx); Closed nondisplaced fracture of proximal phalanx of lesser toe of left foot with delayed healing, subsequent encounter 11/08/2024 9:45 AM EDT Consult Orthopedic [facility] [address] [phone] Nii Frias DPM Nondisplaced fracture of proximal [...] AM EST Office Visit Orthopedic Surgery - [place] 250 175 [facility] [address] [place] [phone] Nii Frias, DPTwan 175 [facility] [address] [place] [address] Health Maintenance Due Date Last Done Comments [...] Comments XR FOOT 3+ VIEWS LEFT Routine 12/24/2024 9:46 AM EDT Pain Nondisplaced fracture of proximal phalanx of left lesser toe(s), initial encounter for closed fracture XR FOOT 3+ VIEWS LEFT Routine 11/08/2024 9:55 AM EDT Pain from Last 3 Months Results * XR Foot 3+ Views Left (12/24/2024 9:46 AM EDT) Only the most recent of2 resultswithin the time period is included. Anatomical Region Laterality Modality Lower Extremities, Foot Left Computed Radiography Narrative 01/20/2025 9:09 PM EST Left foot 3 views weightbearing: Enlarged retrocalcaneal spur. Slight osteoporosis of the bones. Notable joint space narrowing of the talonavicular joint midtarsal joints and a plantar heel spur. us Nii Frias DPM IMG XR PROCEDURES Final Res ult from Last 3 Months Insurance [employer] MEDICARE Member Subscriber Plan / Payer (Ef fective 2022-Present) Name:Jayne Lane Relation to Subscriber:Self Name:ArianaGuruet Payer ID:[id number] Group ID:[id number] Type:Not on file Address: [place] [address] [address] [phone] Care Teams Food Handler Relationship Specialty Start Date End Date Ruchi Ayala MD [address] [phone] PCP - General Internal Medicine 11/05/24
--- OUTSIDE RECORDS SUMMARY | 2025-01-22 11:19 | XMS_ITS | Encounter Summary ---
Author Organization [employer] Address [address] [facility] 7t [place] [address] Care Team Providers Care Photoengraving Finisher Name Role Phone James Flores MD Primary Care Provide r Reason for Visit * Reason Comments Med Refill Encounter Details Date Type Department Care Team (Late st Contact Info) Description 08/27/2023 Refill [facility] MEDICINE [address] [place] [address] Name, MD Loki [address] [place] [address] Gastroesophageal reflux disease without esophagitis Social History [...] t he electric, gas, oil or water [employer] threatened to shut off services in your [...] reflux documented in this encounter Care Teams Photoengraving Finisher Relationship Specialty Start Date End Date James Flores MD [address] [place] [phone] PCP - General Internal Medicine 02/04/14 documented as of this encounter
--- OUTSIDE RECORDS SUMMARY | 2025-01-22 11:19 | XMS_ITS | Encounter Summary ---
Author Organization [employer] Address [address] [facility] 7t [place] [address] Care Team Providers Care Caseworker Protective Services Name Role Phone James Flores MD Primary Care Provide r Reason for Visit * Reason Onset Date Comments Nurse Triage 03/18/2024 Encounter Details Date Type Department Care Team (Late st Contact Info) Description 03/18/2024 Telephone [facility] MEDICINE [address] [place] [address] James Flores MD [address] [place] [address] Nurse Triage Social History Tobacco Use Types [...] EST Triage call with [facility] [place] [id number]. Pt reports continual coughing with cold symptoms. Pt was seen in [facility] 02/29/24 for cough and exacerbation of asthma. Pt reports has been using inhaler and nebulizer as prescribed though not every day. Pt denies having difficulty breathing. Pt requests to see provider again due to continuation of cough and cold symptoms neg for fever. Pt is advised to return to [facility] today open till 8pm and Pt agrees with this disposition. Pt is requesting what medication could be taken for cough , Pt is taking BPmedications and is advised to ask provider when seen in [facility] and Pt agrees. Insurance is verified asactive. Protocol Used: Cough (Adult) Protocol-Based Disposition: See [...] documented as of this encounter Care Teams Caseworker Protective Services Relationship Specialty Start Date End Date James Flores MD [address] [place] [address] PCP - General Internal Medicine 02/04/14 documented as of this encounter
--- OUTSIDE RECORDS SUMMARY | 2025-01-22 11:19 | XMS_ITS | Encounter Summary ---
Author Organization [employer] Address [address] [facility] 7t [place] [address] Care Team Providers Care Ripsaw Matcher Name Role Phone James Flores MD Primary Care Provide r Encounter Details Date Type Department Care Team (Late st Contact Info) Description 06/14/2022 Orders Only [facility] CHC MED & PEDS [address] [place] [address] Jaja Hammond LPN Social History Tobacco Use [...] on filedocumented in this encounter Care Teams Ripsaw Matcher Relationship Specialty Start Date End Date James Flores MD [address] [place] [address] PCP - General Internal Medicine 02/04/14 documented as of this encounter
--- OUTSIDE RECORDS SUMMARY | 2025-01-22 11:19 | XMS_ITS ---
Author Name Mr. Arlen Márquez Address [address] [place] [address] Phone [phone] [facility] Care Team Providers Care Machine Hand Name Role Phone Micah Judge Unavailable [phone] Reason for Referral Not Available Allergies, adverse [...] 2021-11-04 No Data Available [employer] [facility] [id number] Miscellaneous TEST BLOOD SUGAR THREE OR FOUR [...] of Service Diagnosis/Co mplaint No Data Available [facility], ([place] 07/12/2022 Type 2 diabetes mellitus wit h diabetic chronic kidney diseaseChronic kidney disease, stage 3bLong term (current) use of insulinMorbid (severe) obesity due to excess caloriesBody mass index (BMI) 40.0-44.9, adultOther specified health statusConstipation, unspecifiedProblems related to health literacyPrsnl hx of TIA (TIA), and cereb infrc w/o resid deficits No Data Available [facility] [place] 07/12/2022 No Data Available [facility] 07/12/2022 No Data Available [facility] [place] 07/12/2022 No Data Available [facility] 07/12/2022 No Data Available [facility] [place] 07/12/2022 No Data Available [facility] 07/22/2022 Morbid (severe) obesity due to excess caloriesBody mass index (BMI) 40.0-44.9, adultType 2 diabetes mellitus with diabetic chronic kidney diseaseChronic kidney disease, stage 3bPrsnl hx of TIA (TIA), and cereb infrc w/o resid deficitsOther specified health status No Data Available [facility] ([place] 07/22/2022 Vital Signs Date of Collection Vitals 2022-07-12 11:38:39 Height - 147.32 cmWe ight - 87.09 kgBody Mass Index (BMI) - 40.13 kg/m2 Social History Sex Female History of Procedures Procedures Service Procedure code Service date Servicing provider Phone# No Data Available [id number] 2022-07-12 No Data Available No Data Available [...] le No Data Available No Data Available [id number] 2022-07-22 No Data Available No Data Available [...]
--- OUTSIDE RECORDS SUMMARY | 2025-01-22 11:19 | XMS_ITS | Encounter Summary ---
Author Organization [employer] Address [address] [facility] 7t [place] [address] Care Team Providers Care Barber Apprentice Name Role Phone James Flores MD Primary Care Provide r Reason for Visit * Reason Onset Date Comments Durable Medical Equipment 09/27/2023 Encounter Details Date Type Department Care Team (Late st Contact Info) Description 09/27/2023 Telephone [facility] MEDICINE [address] [place] [address] James Flores MD [address] [place], [place] [phone] Durable Medical Equipment Social History Tobacco Use [...] 1 flip pillow DME Please contact at [phone] * Telephone Encounter - Fernando Christie - 09/27/2023 2:40 PM EDT Tc from pt 10 in 1 flip pillow due to issues sleeping. Pt would like script to be faxed to [facility]. If any questions you can contact pt at [phone]. documented in this encounter Plan of Treatment Not on file documented as of this encounter Visit Diagnoses Not on filedocumented in this encounter Care Teams Barber Apprentice Relationship Specialty Start Date End Date James Flores MD [address] [place] [id number] PCP - General Internal Medicine 02/04/14 documented as of this encounter
--- OUTSIDE RECORDS SUMMARY | 2025-01-22 11:19 | XMS_ITS | Encounter Summary ---
Author Organization [employer] Address [address] [facility] [address] 7t [place] [address] Care Team Providers Care Official Court Reporter Name Role Phone James Flores MD Primary Care Provide r Reason for Visit * Reason Comments Med Refill Encounter Details Date Type Department Care Team (Late st Contact Info) Description 05/10/2024 Refill [facility] 230 [place] [address] Coco Montiel NP [address] [place] [address] Mild intermittent asthma without complication Social History [...] documented as of this encounter Care Teams Official Court Reporter Relationship Specialty Start Date End Date James Flores MD 230 [place] [address] PCP - General Internal Medicine 02/04/14 documented as of this encounter
--- OUTSIDE RECORDS SUMMARY | 2025-01-22 11:19 | XMS_ITS | Encounter Summary ---
Author Organization [employer] Address [address] [facility] 7t [place] [address] Care Team Providers Care Executive Chef Name Role Phone James Flores MD Primary Care Provide r Reason for Visit * Reason Comments Med Refill Encounter Details Date Type Department Care Team ([facility] st Contact Info) Description 03/12/2023 Refill [facility] MEDICINE 230 [place] [address] James Flores MD [address] [place] [address] Chronic anemia Social History Tobacco Use Types [...] t he electric, gas, oil or water [employer] threatened to shut off services in your [...] anemia documented in this encounter Care Teams Executive Chef Relationship Specialty Start Date End Date James Flores MD [address] [place] [id number] PCP - General Internal Medicine 02/04/14 documented as of this encounter
--- OUTSIDE RECORDS SUMMARY | 2025-01-22 11:19 | XMS_ITS | Patient Health Record ---
Author Organization [facility] Address [address] [place] [address] Care Team Providers Care Burner Operator Name Role Phone Rudy Ashraf MD, James Primary Care Provide r Unavailable Moris Duron Jr Unavailable Reason For Referral No Information Plan Of Treatment No Information Insurance Providers Payer Name Payer Address Payer Phone Subscriber Number Group Number Insured Name Patient Relationship to Insured Coverage Start Date Coverage End Date MEDICARE OF [place] [address] [place] [id number] STEPHANI JOE Self - patient is the insured MEDICAID OF [facility] [address] [place] [address] [id number] STEPHANI JOE Self - patient is the insured
--- OUTSIDE RECORDS SUMMARY | 2025-01-22 11:19 | XMS_ITS | Encounter Summary ---
Author Organization [employer] Address [address] [facility] [address] [place] [address] Care Team Providers Care High School Assistant Football Coach Name Role Phone James Flores MD Primary Care Provide r Reason for Visit * Reason Comments Med Refill Encounter Details Date Type Department Care Team (Late st Contact Info) Description 08/21/2022 Refill [facility] MEDICINE 230 [place], [place] [phone] James Flores MD 230 [place], [place] [phone] Social History Tobacco Use Types Packs/Day Years [...] on filedocumented in this encounter Care Teams High School Assistant Football Coach Relationship Specialty Start Date End Date James Flores MD [address] [place], [place] [phone] PCP - General Internal Medicine 02/04/14 documented as of this encounter
--- OUTSIDE RECORDS SUMMARY | 2025-01-22 11:19 | XMS_ITS | Encounter Summary ---
Author Organization [employer] Address [address] [facility] 7t [place] [address] Care Team Providers Care Certified Green Building Engineer Name Role Phone James Flores MD Primary Care Provide r Encounter Details Date Type Department Care Team (Late st Contact Info) Description 08/22/2022 Orders Only [facility] [address] [place] [address] Jaja Hammond LPN Social History Tobacco Use [...] filedocumented in this encounter Care Teams Certified Green Building Engineer Relationship Specialty Start Date End Date James Flores MD [address] [place] [address] PCP - General Internal Medicine 02/04/14 documented as of this encounter
--- OUTSIDE RECORDS SUMMARY | 2025-01-22 11:19 | XMS_ITS | Encounter Summary ---
Author Organization [employer] Address [address] [facility] 7t [place] [address] Care Team Providers Care Bulk Plant Operator Name Role Phone James Flores MD Primary Care Provide r Encounter Details Date Type Department Care Team ([facility] st Contact Info) Description 03/14/2023 Telephone [facility] [address] [place] [address] Adriana Odell [place] Social History Tobacco Use [...] on filedocumented in this encounter Care Teams Bulk Plant Operator Relationship Specialty Start Date End Date James Flores MD [address] [place] [id number] PCP - General Internal Medicine 02/04/14 documented as of this encounter
--- OUTSIDE RECORDS SUMMARY | 2025-01-22 11:19 | XMS_ITS | Encounter Summary ---
Author Organization [employer] Address [address] [facility] 7t [place] [address] Care Team Providers Care Equipment Processor Name Role Phone James Flores MD Primary Care Provide r Reason for Visit * Reason Comments Med Refill Encounter Details Date Type Department Care Team (Late st Contact Info) Description 09/04/2023 Refill [facility] MED[facility] [address] [place] [address] Name, MD Loki [address] [place] [address] Gastroesophageal reflux disease without esophagitis Social History [...] t he electric, gas, oil or water [employer] threatened to shut off services in your [...] reflux documented in this encounter Care Teams Equipment Processor Relationship Specialty Start Date End Date James Flores MD [address] [place] [phone] PCP - General Internal Medicine 02/04/14 documented as of this encounter
--- OUTSIDE RECORDS SUMMARY | 2025-01-22 11:19 | XMS_ITS | Encounter Summary ---
Author Organization [employer] Address [address] [facility] 7t [place] [address] Care Team Providers Care Sales Contractor Name Role Phone James Flores MD Primary Care Provide r Encounter Details Date Type Department Care Team ([facility] st Contact Info) Description 01/11/2024 Telephone [facility] MEDICINE [address] [place], [place] [phone] James Flores MD 230 [place], [place] [phone] Social History Tobacco Use Types Packs/Day Years Used Date Smoking Tobacco: Never Passive Smoke Exposure: Never Smokeless Tobacco: Never Housing Stability Answer Date Recorded What is your housing situation today? I have maría nroiega 01/19/[address] you li [...] on filedocumented in this encounter Care Teams Sales Contractor Relationship Specialty Start Date End Date James Flores MD [address] [place] [id number] PCP - General Internal Medicine 02/04/14 documented as of this encounter
--- OUTSIDE RECORDS SUMMARY | 2025-01-22 11:20 | XMS_ITS | Encounter Summary ---
Author Organization [employer] Address [address] [facility] 7t [place] [address] Care Team Providers Care Collections Technician Name Role Phone James Flores MD Primary Care Provide r Encounter Details Date Type Department Care Team (Late st Contact Info) Description 05/11/2022 Telephone [facility] MEDICINE [address] [place], [place] [phone] James Flores MD 230 [place] [address] Social History Tobacco Use Types Packs/Day Years [...] on filedocumented in this encounter Care Teams Collections Technician Relationship Specialty Start Date End Date James Flores MD 230 [place], [place] [phone] PCP - General Internal Medicine 02/04/14 documented as of this encounter
--- OUTSIDE RECORDS SUMMARY | 2025-01-22 11:20 | XMS_ITS | Encounter Summary ---
Author Organization [employer] Address [address] [facility] 7t [place] [address] Care Team Providers Care Stretcher Leveler Operator Name Role Phone James Flores MD Primary Care Provide r Encounter Details Date Type Department Care Team (Late st Contact Info) Description 04/13/2022 Orders Only [facility] MEDICINE [address] [place], [place] [phone] April Olsen LPN Social History Tobacco Use [...] on filedocumented in this encounter Care Teams Stretcher Leveler Operator Relationship Specialty Start Date End Date James Flores MD [address] [place] [address] PCP - General Internal Medicine 02/04/14 documented as of this encounter
--- OUTSIDE RECORDS SUMMARY | 2025-01-22 11:20 | XMS_ITS | Encounter Summary ---
Author Organization [employer] Address [address] [facility] 7t [place] [address] Care Team Providers Care Sleep Manager Name Role Phone James Flores MD Primary Care Provide r Reason for Visit * Reason Onset Date Comments Durable Medical Equipment 07/30/2024 Encounter Details Date Type Department Care Team (Late st Contact Info) Description 07/30/2024 Telephone [facility] MEDICINE [address] [place] [address] James Flores MD [address] [place] [address] Durable Medical Equipment Social History Tobacco Use [...] documented as of this encounter Care Teams Sleep Manager Relationship Specialty Start Date End Date James Flores MD [address] [place] [phone] PCP - General Internal Medicine 02/04/14 documented as of this encounter
--- OUTSIDE RECORDS SUMMARY | 2025-01-22 11:20 | XMS_ITS | Clinical Summary ---
Author Organization [employer] Address [address] [facility] [address] [place] [address] Care Team Providers Care Warehouse Person Name Role Phone James Flores MD Primary [...] the morning. 023 Active Calcium Citrate-Vitamin D ([place] Calcium/Vitamin D) 200-6.25 MG-MCG tablet TAKE 2 [...] CHANGE EVERY 14 DAYS Active Continuous Glucose Rn Mental Health (FreeStyle [place] 3 [place]) device USE DIRECTED Active bisacodyl (Dulcolax) 10 [...] needed). 90 mL 3 Active nystatin (Mycostatin) 812160 UNIT/GM powderIndications :Tinea corporis Apply topically 2 [...] complication, with long-term current use of insulin ([facility]) USE DIRECTED FOUR TIMES DAILY 100 each 6 025 Active clopidogrel (Plavix) 75 MG tablet TAKE 1 TABLET BY MOUTH EVERY EVENING 90 tablet 3 025 Active atorvastatin (Lipitor) 80 MG tabletIndications [...] complication, with long-term current use of insulin ([facility]) INJECT 6 TO 16 UNITS [...] week. 025 Active Lantus SoloStar 100 UNIT/ML penIndications:Ty pe 2 diabetes mellitus without complication, with long-term current use of insulin ([facility]) INJECT 35 UNITS SUBCUTANEOUSLY EVERY DAY 15 mL 2 025 Active Alcohol Swabs (Alcohol Prep) 70 % pads USE DIRECTED 100 each 11 10/13/2 025 Active amLODIPine (Norvasc) 5 MG tablet TAKE 1 TABLET BY MOUTH EVERY EVENING 30 tablet 5 Active loratadine (Claritin) 10 MG tabletIndications :Seasonal allergies TAKE 1 TABLET BY MOUTH EVERY MORNING 30 tablet 5 025 Active amLODIPine (Norvasc) 5 MG tablet TAKE 1 TABLET BY MOUTH EVERY EVENING 30 tablet 5 025 2024 Discontinued loratadine (Claritin) 10 MG tabletIndications :Seasonal allergies TAKE 1 TABLET BY MOUTH EVERY MORNING 30 tablet 5 025 2024 Discontinued Active Problems Problem Noted [...] x-rays of the right knee Temporal arteritis ([facility]) 07/23/2024 Assessment & Plan (12/10/2024 9:35 AM EDT): Patient seen by Dr Tyree sylvester on: C/o intractable headache, TA was in his differential, Pt's ESR came back high at: Pt was treated with Prednisone and referred for a TA biopsy that patient declined and Rheumatology ( pt has not been seen due to appointments being to far out. Pt did see an Healthcare Manager that did not see any abnormalitites [...] to far out. Pt did see an Healthcare Manager that did not see any abnormalitites [...] to far out. Pt did see an Healthcare Manager that did not see any abnormalitites [...] acute injury to the right knee. 2. Lmuu-gs-idtuoqvc lateral compartment degenerative changes. Left: IMPRESSION: 1. [...] acute injury to the right knee. 2. Irsr-ib-cerfebjl lateral compartment degenerative changes. Left: IMPRESSION: 1. [...] evaluation Last colonoscopy 07/2022 showed tubular adenomas [facility] care 06/21/2022 Assessment & Plan (12/10/2024 9:36 AM EDT): Mammogram: NL : 11/04/2024 Pap Smear: 06/27/2023: Normal In 11/24/2016 ASCUS with positive HPV. Pt underwent Colpo with biopsies & ECC per [employer] notes from 04/2017 Colonoscopy: 07/2022 Tubular adenoma repeat 3 years Vaccines: Flu shot: declines tdap: 05/31/2013 Dexa scan:. 04/28/2015 showed osteopenia Assessment & Plan (03/21/2024 9:20 AM EST): Routine physical exam today: within normal limits Mammogram: NL : 02/22/2023 Pap Smear: 06/27/2023: Normal In 11/24/2016 ASCUS with positive HPV. Pt underwent Colpo with biopsies & ECC per [employer] notes from 04/2017 Colonoscopy: 07/2022 Tubular adenoma repeat 3 years Vaccines: Flu shot: tdap: 05/31/2013 Dexa scan:. 04/28/2015 showed osteopenia Assessment & Plan (01/30/2024 11:02 AM EST): Routine physical exam today: within normal limits Mammogram: NL : 02/22/2023 Pap Smear: 06/27/2023: Normal In 11/24/2016 ASCUS with positive HPV. Pt underwent Colpo with biopsies & ECC per [employer] notes from 04/2017 Colonoscopy: 07/2022 Tubular adenoma repeat 3-5 years Vaccines: Flu shot: tdap: 05/31/2013 Dexa scan:. 04/28/2015 showed osteopenia Assessment & Plan (01/19/2023 1:43 PM EST): Mammogram: NL : 01/29/2021 Pap Smear: 11/24/2016 ASCUS with positive HPV. Pt underwent Colpo with biopsies & ECC per [employer] notes from 04/2017 she was supposed to have a repeat with co test 04/2018 and if both neg then would f/u in 3 years records requested Colonoscopy: 07/2022 Tubular adenoma repeat 3-5 years Vaccines: Flu shot: tdap: 05/31/2013 Dexa scan:. 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 Due to her Hx [...] disease and negative nuclear stress test at [facility] . Due to her Hx [...] disease and negative nuclear stress test at [facility] . Due to her recent [...] disease and negative nuclear stress test at [facility] . Due to her recent [...] Type Department Care Team Description 12/27/2024 Refill [facility] [address] [place] [address] James Flores MD Seasonal allergies 12/22/2024 Refill [facility] [address] [place] [address] James Flores MD 12/16/2024 Refill [facility] [address] [place] [address] James Flores MD Type 2 diabetes mellitus without complication, with long-term current use of insulin ([facility]) 12/10/2024 9:15 AM EDT Office Visit [facility] [address] [place] [phone] James Flores MD Type 2 diabetes mellitus with stage 3a chronic kidney disease, with long-term current use of insulin (CMS/HCC) (Primary Dx); Hypertension, unspecified type; CKD stage 3 secondary to diabetes (CMS/HCC); 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; Closed fracture of phalanx of left fifth toe with routine healing; Urinary incontinence, unspecified type; Hair loss; Temporal arteritis (CMS/HCC); Age-related osteoporosis without current pathological fracture; Preventative health care 12/10/2024 Orders Only GENERIC EXTERNAL DATA DEPARTMENT Provider, Generic External Data 12/10/2024 Travel 12/09/2024 Telephone [facility] [address] [place] [phone] James Flores MD chart prep 11/27/2024 Refill [facility] [address] [place], [place] [phone] James Flores MD 11/22/2024 Refill [facility] [address] [facility] [place] [address] James Flores MD Chronic anemia 11/20/2024 Orders Only GENERIC EXTERNAL DATA DEPARTMENT Provider, Generic External Data 11/20/2024 Refill [facility] [address] [facility] [place] [address] James Flores MD Type 2 diabetes mellitus without complication, with long-term current use of insulin ([facility]) 11/19/2024 Refill [facility] [address] [facility] [place] [address] James Flores MD 11/14/2024 Abstract [facility] [address] [place] [address] Yazmin Ashraf [place] 11/13/2024 Orders Only GENERIC EXTERNAL DATA DEPARTMENT Provider, Generic External Data 11/01/2024 Results Follow-Up [facility] [address] [facility] [place] [address] Ruchi Ayala MD XR Foot 3+ Views Left 10/31/2024 Orders Only GENERIC EXTERNAL DATA DEPARTMENT Provider, Generic External Data 10/30/2024 6:00 PM EDT Office Visit [facility] [address] [facility] [place] [address] Ruchi Ayala MD Pain of toe of left foot (Primary Dx); Acute left-sided low back pain without sciatica 10/30/2024 Travel from Last 3 Months Immunizations Immunization Administration [...] Answer Date Recorded Internet Access Q1 Yes 01/21/2025 Internet Access Q2 Not on file 01/21/2025 Comments Unknown Sex and Gender Information Value [...] disease, with long-term current use of insulin ([facility]) POCT GLYCOSYLATED HEMOGLOBIN (HGB A1C) Routine 12/10/2024 9:26 AM EDT Type 2 diabetes mellitus with stage 3a chronic kidney disease, with long-term current use of insulin ([facility]) CALCIUM Routine 11/20/2024 11:16 AM EDT CREATININE, [...] PM EDT Narrative 12/31/2024 4:33 PM EDT [place] [address] XRay Report Signed Patient: Jayne Lane MR#: [id number] : 1955 Acct:[id number] Age/Sex: 69 / F ADM Date: 12/31/24 Loc: HO.ED Attending Dr: Ordering Physician: Patrick Borrego Date of Service: 12/31/24 Procedure(s): XR shoulder LT min 2V Accession Number(s): [id number] cc: James Trimble MD; Patrick Borrego Reason [...] 12/31/24 1631 DD/ 1624 TD/TT: 12/31/24 1625 Marketing Liaison: BHANU Procedure Note Donotuseinterpreter, Image - 12/31/[address] [address] XRay Report Signed Patient: Jayne LaneMR#: [id number] : 1955cct:[id number] Age/Sex: 69 / FADM Date: 12/31/24 Loc: .ED Attending Dr: Ordering Physician: Patrick Borrego Date of Service: 12/31/24 Procedure(s): XR shoulder LT min 2V Accession Number(s): [id number] cc: James Trimble MD; Patrick Borrego Reason [...] 12/31/24 1631 DD/ 1624 TD/TT: 12/31/24 1625 Marketing Liaison: BHANU [facility] External Provider IMG XR PROCEDURES Final Result * XR Lumbar Spine 2-3 Views (12/31/2024 4:15 PM EDT) Anatomical Region Laterality Modality Spine, L-spine Radiographic Rena ging 12/31/2024 4:15 PM EDT Narrative 12/31/2024 4:35 PM EDT [place] [address] XRay Report Signed Patient: Jayne Lane MR#: [id number] : 1955 Acct:[id number] Age/Sex: 69 / F ADM Date: 12/31/24 Loc: HO.ED Attending Dr: Ordering Physician: Patrick Borrego Date of Service: 12/31/24 Procedure(s): XR lumbar spine 2-3V Accession Number(s): [id number] cc: James Trimble MD; Patrick Borrego Reason [...] Karina Yanez MD 12/31/2024 04:33 PM EDT RP Dictated By: Karina Yanez MD Signed By: <Electronically signed by Karina Yanez MD in OV> 12/31/24 1633 DD/ 1615 TD/TT: 12/31/241624 Marketing Liaison: BHANU Procedure Note Donotuseinterpreter, Image - 12/31/[address] [address] XRay Report Signed Patient: Jayne LaneMR#: [id number] : 6Acct:[id number] Age/Sex: 69 / FADM Date: 12/31/24 Loc: HO.ED Attending Dr: Ordering Physician: Patrick Borrego Date of Service: 12/31/24 Procedure(s): XR lumbar spine 2-3V Accession Number(s): [id number] cc: James Trimble MD; Patrick Borrego Reason [...] OV> 12/31/24 1633 DD/ 1615 TD/TT: 12/31/24 162 Marketing Liaison: BHANU [facility] External Provider IMG XR PROCEDURES Final Result * Immunofixation (SONIA), Urine (12/10/2024 2:42 PM EDT) Only the most recent of2 resultswithin the time period is included. SONIA Interpretation [facility] Comment:No monoclonal protei ns detected.THIS TEST WAS PERFORMED AT:[facility] [place] [phone] CHAND MD 12/10/2024 2:42 PM EDT 12/10/2024 4:05 PM EDT us Generic External Data Provider LAB URINE ORDERAB LES Final Result Performing Organization Address City/[facility]/ZIP Co de Phone Number [facility] [address] [place] [phone] * Vitamin D, 25-Hydroxy, Total, Immunoassay (12/10/2024 9:50 AM EDT) Vitamin D 25-OH Total 47.1 >30 ng/mL [facility] Comment: Health Based Reference Values*< 20 ng/mL Xkgwevecj75-58 ng/mL Insufficient> 30 ng/mL Sufficient*Altagracia GOODWIN. N [...] Provider LAB BLOOD ORDERAB LES Final Result [facility] [address] [place] [phone] * TSH with Reflex to Free T4 (12/10/2024 9:50 AM EDT) [facility] TSH reflex Free T4 1.76 0.32 - 4.0 uIU/mL [facility] Blood Venous blood specimen / Unknown 12/10/2024 9:50 AM EDT 12/10/2024 11:50 AM EDT us James Ashraf MD LAB BLOOD ORDERABLES Final Result Performing Organization Address [facility]/ZIP Co de Phone Number [facility] [address] [place] [phone] * (ABNORMAL) Creatinine, Serum (12/10/2024 9:50 AM EDT) Only the most recent of2 resultswithin the time period is included. [facility] Creatinine, Serum 1.48(H) 0.5 - 1.4 mg/dL [facility] Estimated Glomerular Filt Rate 35 [facility] Comment:Chronic Kidney Disea se: Estimated GFR < 60 mL/min/1.26q6Qmeyer Kidney Disease: Estimated GFR < 15 mL/min/1.73m2 12/10/2024 9:50 AM EDT 12/10/2024 11:50 AM EDT us Generic External Data Provider LAB BLOOD ORDERAB LES Final Result [facility] [address] [place] [phone] * Immunofixation, Serum (12/10/2024 9:50 AM EDT) Only the most recent of2 resultswithin the time period is included. [facility] IMMUNOGLOBULIN G 851 600 - 1540 mg/dL [facility] IMMUNOGLOBULIN A 196 70 - 320 mg/dL [facility] Immunoglobulin M 75 50 - 300 mg/dL [facility] Comment:THIS TEST WAS PERFOR MED AT:[facility] [place] [phone] CHAND MD Immunofixation Result SEE NOTE [facility] Comment:Normal pattern. No m onoclonal proteins detected. 12/10/2024 9:50 AM EDT 12/10/2024 11:50 AM EDT us Generic External Data Provider LAB BLOOD ORDERAB LES Final Result Performing Organization Address [facility] Co de Phone Number [facility] [address] [place] [phone] * (ABNORMAL) BUN (Blood Urea Nitrogen) (12/10/2024 9:50 AM EDT) Only the most recent of2 resultswithin the time period is included. Urea Nitrogen (BUN) 25(H) 9 - 16 mg/dL [facility] 12/10/2024 9:50 AM EDT 12/10/2024 11:50 AM EDT us Generic External Data Provider LAB BLOOD ORDERAB LES Final Result Performing Organization Address [facility] de Phone Number [facility] [address] [place] [phone] * PTH, Intact Without Calcium (12/10/2024 9:50 AM EDT) Parathyroid Hormone, Intact 71.3 8.7 - 77.1 pg/mL [facility] 12/10/2024 9:50 AM EDT 12/10/2024 11:50 AM EDT us Generic External Data Provider LAB BLOOD ORDERAB LES Final Result Performing Organization Address [facility] Co de Phone Number [facility] [address] [place] [phone] * Calcium (12/10/2024 9:50 AM EDT) Only the most recent of2 resultswithin the time period is included. Calcium 9.5 8.4 - 10.2 mg/dL [facility] 12/10/2024 9:50 AM EDT 12/10/2024 11:50 AM EDT Generic External Data Provider LAB BLOOD ORDERAB LES Final Result Performing Organization Address [facility] de Phone Number [facility] [address] [place] [phone] * (ABNORMAL) Electrolyte Panel (12/10/2024 9:50 AM EDT) Only the most recent of2 resultswithin the time period is included. Sodium 144 135 - 145 mmol/L [facility] Potassium 4.9 3.3 - 5.1 mmol/L [facility] Chloride 109(H) 96 - 108 mmol/L [facility] Carbon Dioxide 29 22 - 29 mmol/L [facility] Anion Gap 11(L) 12 - 20 [facility] 12/10/2024 9:50 AM EDT 12/10/2024 11:50 AM EDT [employer] External Data Provider LAB BLOOD ORDERAB LES Final Result Performing Organization Address [facility] de Phone Number [facility] [address] [place] [phone] * (ABNORMAL) POCT glucose manually resulted (12/10/2024 9:27 AM EDT) Glucose Blood, POC 8.5(A) 60 - 200 mg/dL [employer] Lot # [id number] Lot# Expiration Date [id number] Blood Capillary blood specimen / Unknown 12/10/2024 9:27 AM EDT James Ashraf MD POINT OF CARE TEST ENTER/EDIT ORDERABLES Edited Result - Final * (ABNORMAL) POCT glycosylated hemoglobin (Hgb A1c) (12/10/2024 9:26 AM EDT) Hemoglobin A1C 255.0(A) 4.0 - 5.7 % QC Media Lot # [id number] Lot# Expiration Date ,[id number] Blood Capillary blood specimen / Unknown 12/10/2024 9:26 AM EDT James Ashraf MD POINT OF CARE TEST EN TER/EDIT ORDERABLES Final Result * Mammography (11/14/2024 10:06 AM EDT) Pathologist [facility] HM Mammogram BIRADS 1 Normal, Abnormal, BIRADS 1 , BIRADS 2 Comment:follow up 1 year Anatomical Region Laterality Modality Other Historical Provider HEALTH MAINTENANCE Final Result * Glucose, Whole Blood (11/13/2024 9:56 AM EDT) Pathologist [facility] Glucose, Whole Blood 102 60 - 115 mg/dL [facility] Comment:METER #: [id number] 0Testing performed in the Endocrinology Department [address] , [address], [place]. 11/13/2024 9:56 AM EDT 11/13/2024 10:00 AM EDT Generic External Data Provider LAB BLOOD ORDERAB LES Final Result [facility] [address] [facility] [address] [phone] * BI Mammogram Screening Tomosynthesis Bilateral (11/04/2024 11:10 AM EDT) Anatomical Region Laterality Modality Breast Bilateral Mammography 11/04/2024 11:1 0 AM EDT Narrative 11/08/2024 5:49 PM EDT [facility] [address] [place] [address] Mammography Report Signed Patient: Jayne Lane MR#: [id number] : 1955 Acct:[id number] Age/Sex: 69 / F ADM Date: 11/04/24 Loc: HO.MAMMO Attending Dr: Jmaes Trimble MD Ordering Physician: James Trimble MD Resu lts: 1Negative Date of Service: 11/04/24 Follow Up: 1 Year From Orig ina Mammogram Procedure(s): MM tomosynthesis screening BI Accession Number(s): [id number] cc: James Trimble MD EXAMINATION: MM SCREENING [...] 11/08/24 1746 DD/ 1110 TD/TT: 11/04/24 1133 Marketing Liaison: Procedure Note Donotuseinterpreter, Image - 11/08/2024 [place] [facility] [address] [place] [address] Mammography Report Signed Patient: Jayne LaneMR#: [id number] : 6Acct:[id number] Age/Sex: 69 / FADM Date: 11/04/24 Loc: HO.MAMMO Attending Dr: James Trimble MD Ordering Physician: James Trimble MDResu lts: 1Negative Date of Service: 11/04/24Follow Up: 1 Year From Orig inal Mammogram Procedure(s): MM tomosynthesis screening BI Accession Number(s): [id number] cc: James Trimble MD EXAMINATION: MM SCREENING [...] by Tahir Ortiz MD in OV> 11/08/24 9303 DD/ 1110 TD/TT: 11/04/24 1133 Marketing Liaison: James Ashraf MD IMG BI PROCEDURES Fin al Result * Proteinase-3 Antibody (10/31/2024 10:27 AM EDT) Proteinase-3 Antibody <1.0 [facility] Comment:Value Interpretation ----- <1.0 No Antibody Detected > or = 1.0 Antibody DetectedAutoantibodies to proteinase-3 (SD-3) are accepted ascharacteristic for granulomatosis with polyangiitis(GPA, Cresencio's), and are detectable in 95% of thehistologically proven cases. The cytoplasmic IFApattern, (c-ANCA), is based largely on autoantibody toPR-3 which serves as the primary antigen.These autoantibodies are present in active disease.THIS TEST WAS PERFORMED AT:[facility] [place] [phone] CHAND MD 10/31/2024 10:2 7 AM EDT 10/31/2024 11:25 AM EDT Generic External Data Provider LAB BLOOD ORDERAB LES Final Result [facility] [address] [place] [phone] * Myeloperoxidase Antibody (MPO) (10/31/2024 10:27 AM EDT) Myeloperoxidase Antibody <1.0 [facility] Comment:Value Interpretation ----- <1.0 No Antibody Detected > or = 1.0 Antibody DetectedAutoantibodies to myeloperoxidase (MPO) are commonlyassociated with the following small-vesselvasculitides: microscopic polyangiitis,polyarteritis nodosa, Churg-Kelton syndrome,necrotizing and crescentic glomerulonephritis andoccasionally granulomatosis with polyangiitis(GPA, Cresencio's). The perinuclear IFA pattern,(p-ANCA) is based largely on autoantibody tomyeloperoxidase which serves as the primary antigen.These autoantibodies are present in active disease.THIS TEST WAS PERFORMED AT:[facility] [place] [phone] CHAND MD 10/31/2024 10:2 7 AM EDT 10/31/2024 11:25 AM EDT Generic External Data Provider LAB BLOOD ORDERAB LES Final Result Performing Organization Address [facility] de Phone Number [facility] [address] [place] [phone] * (ABNORMAL) Protein Creatinine Ratio, Urine (10/31/2024 10:27 AM EDT) Creatinine, Urine 133.81 mg/dL [facility] Protein, Total, Random Urine 58(H) <12 mg/dL [facility] Protein/Creati nine Ratio, Ur 0.43(H) <0.2 [facility] Comment:The spot urine prote in:creatinine ratio may increase to 0.3during normal . 10/31/2024 10:2 7 AM EDT 10/31/2024 11:10 AM EDT Generic External Data Provider LAB URINE ORDERAB LES Final Result Performing Organization Address [facility] de Phone Number [facility] [address] [place] [phone] * Phospholipase A2 Receptor (PLA2R) Antibody Panel (10/31/2024 10:27 AM EDT) Phospholipase A2 Receptor (PLA2R) Ab, ABHIJEET <4 RU/mL [facility] Comment:Reference Range: <14 : NEGATIVE 14-19: BORDERLINE >19: POSITIVE Phospholipase A2 Receptor (PLA2R) Ab, IFA NEGATIVE NEGATIVE [facility] Comment:THIS TEST WAS PERFOR MED AT:[facility] [place] [phone] DELATORRE MD,PHD,SHU 10/31/2024 10:2 7 AM EDT 10/31/2024 11:25 AM EDT Generic External Data Provider LAB BLOOD ORDERAB LES Final Result Performing Organization Address [facility] de Phone Number [facility] [address] [place] [phone] * Glomerular Basement Membrane Antibody (IgG) (10/31/2024 10:27 AM EDT) Glomerular Basement Memebrane Antibody (IgG) <1.0 AI [facility] Comment:Value Interpretation ----- <1.0 No Antibody Detected > or = 1.0 Antibody DetectedTHIS TEST WAS PERFORMED AT:[facility] [place] [phone] CHAND MD 10/31/2024 10:2 7 AM EDT 10/31/2024 11:25 AM EDT Generic External Data Provider LAB BLOOD ORDERAB LES Final Result Performing Organization Address [facility] de Phone Number [facility] [address] [place] [phone] * DNA (ds) Antibody (10/31/2024 10:27 AM EDT) Anti DNA DS Antibody 1 IU/mL [facility] Comment:IU/mL Interpretation < or = 4 Negative 5-9 Indeterminate > or = 10 PositiveTHIS TEST WAS PERFORMED AT:[facility] [address] [phone] CHAND MD 10/31/2024 10:2 7 AM EDT 10/31/2024 11:25 AM EDT us Generic External Data Provider LAB BLOOD ORDERAB LES Final Result Performing Organization Address [facility] Co de Phone Number [facility] [address] [place] [phone] * Hepatitis B surface antigen, EIA (10/31/2024 10:27 AM EDT) Hepatitis B Surface Ag Negative Negative [facility] 10/31/2024 10:2 7 AM EDT 10/31/2024 11:25 AM EDT Generic External Data Provider LAB BLOOD ORDERAB LES Final Result Performing Organization Address [facility] Co de Phone Number [facility] [address] [place] [phone] * Hepatitis B Core Antibody, Total (10/31/2024 10:27 AM EDT) Hepatitis B Core Antibody Nonreactive Nonreactive [facility] 10/31/2024 10:2 7 AM EDT 10/31/2024 11:25 AM EDT Generic External Data Provider LAB BLOOD ORDERAB LES Final Result Performing Organization Address [facility] de Phone Number [facility] [address] [place] [phone] * Complement Component C3c (10/31/2024 10:27 AM EDT) Complement C3 171 83 - 193 mg/dL [facility] Comment:THIS TEST WAS PERFOR MED AT:[facility] [address] [phone] CHAND MD 10/31/2024 10:2 7 AM EDT 10/31/2024 11:21 AM EDT us Generic External Data Provider LAB BLOOD ORDERAB LES Final Result Performing Organization Address City/[facility]/ZIP Co de Phone Number [facility] [address] [place] [address] [phone] * Complement Component C4c (10/31/2024 10:27 AM EDT) Complement C4 37 15 - 57 mg/dL [facility] Comment:THIS TEST WAS PERFOR MED AT:[facility] [place] [phone] CHAND MD 10/31/2024 10:2 7 AM EDT 10/31/2024 11:21 AM EDT Generic External Data Provider LAB BLOOD ORDERAB LES Final Result Performing Organization Address [facility] Co de Phone Number [facility] [address] [place] [phone] * C-reactive Protein (10/31/2024 10:27 AM EDT) C Reactive Protein <0.10 < or = 0.50 mg/dL [facility] Blood Venous blood specimen / Unknown 10/31/2024 10:27 AM EDT 10/31/2024 11:25 AM EDT Ludwin Sylvester MD LAB BLOOD ORDERABLES Final Resul t Performing Organization Address [facility] Co de Phone Number [facility] [address] [place] [phone] * (ABNORMAL) Hemoglobin A1c (10/31/2024 10:27 AM EDT) Hemoglobin A1c 7.7(H) <6.0 % [facility] Comment:Hemoglobin A1C Refer ence Range Adults: 4.8 - 6.0 % Non diabetic: < 6.0 % Goal: < 7.0 %Additional Action Suggested: > 8.0 %Note: Hemoglobin A1c results are invalid for patients with abnormal amounts of HbF. Blood transfusions may impact the HbA1c concentration in the patient sample. Estimated Average Glucose 174 mg/dL [facility] Comment:eAG = Estimated ave rage glucose which is %A1C expressed asaverage glucose, using the formula of the H9A-CbzuxilVzrvabr Glucose study (ADAG), Diabetes Care, Vol.31,#8,Oct. 2007 10/31/2024 10:2 7 AM EDT 10/31/2024 11:25 AM EDT us Generic External Data Provider LAB BLOOD ORDERAB LES Final Result Performing Organization Address [facility] Co de Phone Number [facility] [address] [place] [phone] * Lipid Panel, Standard (10/31/2024 10:27 AM EDT) Triglycerides 126 <150 mg/dL [facility] Comment:Desirable Triglyceri de: less than 150 mg/dLBorderline High Triglyceride 150-199 mg/dLHigh Triglyceride: 200-499 mg/dLVery High Triglyceride: greater than or equal to 5OO mg/dL Cholesterol 139 <200 mg/dL [facility] Comment:Desirable Cholestero l: less than 200 mg/dLBorderline High Cholesterol: 200-239 mg/dLHigh Cholesterol: greater than 239 mg/dL LDL Cholesterol Calculated 71 <100 mg/dL [facility] Comment:Desirable LDL: less than 100 mg/dLNear Optimal/Above Optimal LDL: 110- 129 mg/dLBorderline High LDL: 130-159 mg/dLHigh LDL: 160-189 mg/dLVery High LDL: greater than or equal to 190 mg/dL HDL Cholesterol 43 >40 mg/dL [facility] Comment:Desirable HDL: great er than 40 mg/dL Note: This HDL assay may give artificially low results in patients with liver disease. 10/31/2024 10:2 7 AM EDT 10/31/2024 11:25 AM EDT us Generic External Data Provider LAB BLOOD ORDERAB LES Final Result Performing Organization Address [facility]/ZIP Co de Phone Number [facility] [address] [place] [phone] * (ABNORMAL) Comprehensive Metabolic Panel (10/31/2024 10:27 AM EDT) Sodium 143 135 - 145 mmol/L [facility] Potassium 4.2 3.3 - 5.1 mmol/L [facility] Chloride 106 96 - 108 mmol/L [facility] Carbon Dioxide 29 22 - 29 mmol/L [facility] Anion Gap 12 12 - 20 [facility] Urea Nitrogen (BUN) 26(H) 9 - 16 mg/dL [facility] Creatinine, Serum 1.38 0.5 - 1.4 mg/dL [facility] Estimated Glomerular Filt Rate 38 [facility] Comment:Chronic Kidney Disea se: Estimated GFR < 60 mL/min/1.98f7Vxrfme Kidney Disease: Estimated GFR < 15 mL/min/1.73m2 Glucose 141(H) 60 - 115 mg/dL [facility] Calcium 10.0 8.4 - 10.2 mg/dL [facility] Bilirubin, Total 0.3 0.0 - 1.0 mg/dL [facility] Aspartate Amino Transferase 29 5 - 31 U/L [facility] Alanine Aminotransferase 17 0 - 31 U/L [facility] Total Protein 7.1 6.5 - 8.0 g/dL [facility] Albumin Level 4.4 3.5 - 5.0 g/dL [facility] Alkaline Phosphatase 57 39 - 117 U/L [facility] 10/31/2024 10:2 7 AM EDT 10/31/2024 11:25 AM EDT us Generic External Data Provider LAB BLOOD ORDERAB LES Final Result [facility] [address] [place] [phone] * XR Foot 3+ Views Left (10/31/2024 10:14 AM EDT) Anatomical Region Laterality Modality Lower Extremities, Foot Left Radiogra phic Imaging 10/31/2024 10:1 4 AM EDT Narrative 10/31/2024 10:28 AM EDT [address] [address] XRay Report Signed Patient: Jayne Lane MR#: [id number] : 1955 Acct:[id number] Age/Sex: 69 / F ADM Date: 10/31/24 Loc: HO.HHCX Attending Dr: Ruchi Osman MD Ordering Physician: Ruchi Ayala MD Date of Service: 10/31/24 Procedure(s): XR foot LT min 3V Accession Number(s): [id number] cc: Ruchi Ayala MD; James Trimlbe MD EXAMINATION: XR FOOT, LEFT CLINICAL INFORMATION: [...] 10/31/24 1025 DD/ 1014 TD/TT: 10/31/24 1018 Marketing Liaison: Procedure Note Donotuseinterpreter, Image - 10/31/[address] [address] XRay Report Signed Patient: Jayne LaneMR#: [id number] : 6Acct:[id number] Age/Sex: 69 / FADM Date: 10/31/24 Loc: HO.HHCX Attending Dr: Ruchi Osman MD Ordering Physician: Ruchi Ayala MD Date of Service: 10/31/24 Procedure(s): XR foot LT min 3V Accession Number(s): [id number] cc: Ruchi Ayala MD; James Trimble MD [...] 10/31/24 1025 DD/ 1014 TD/TT: 10/31/24 1018 Marketing Liaison: us Ruchi Osman MD IMG XR PROCEDURES Fin al Result * Referral to Ophthalmology (06/20/2024) us Ludwin Sylvester MD OUTPATIENT REFERRAL ORDERABLES F inal Result * Pap Smear (06/22/2023 3:20 PM EDT) 06/22/2023 3:20 PM EDT 06/27/2023 11:15 AM EDT [facility] - 07/11/2023 2:16 PM EDT ----- ------- Name: Jayne Lane Age/Sex: 68/F : 1955 Unit#: [id number] Attend Dr: Opal Carranza CNM Re06/22/23 Status: [facility] REF Location: [facility] Disch: ----- ------- SPEC : [id number] RECD: 06/27/23-1115 STATUS: DERRELL RICCO NUM: [id number] CYRUS: 06/22/23-[address] [facility] [address]: Opal Carranza CNM ENTERED: 06/27/23-1232 SP TYPE: Pap Smr [facility] DR: James Trimble MD ORDERED: Pap Smear, [...] 59, 66, 68) HPV testing performed by [facility], [place], [place]. See reference laboratory portion of the EMR for entire report. Clinical Information LMP: Menopause Previous PAP test: 02/01, Abnormal Other surgery:03/30 colpo DELPHINE I Other history: 2015 +HPV ACUS, 07/29 +HPV Material Received ThinPrep-Cervical Copies To: James Trimble MD [address] [place] [address] Opal Carranza [address] Rodriguez [address] [place] [phone] ----- ------- Signed (signature on file) Ev [place] 07/11/23 1416 ----- ------- END OF REPORT Generic External Data Provider LAB CYTOLOGY RELL SALAZAR Final Result [facility] [address] [place] [phone] * Colonoscopy (07/11/2022 3:53 PM EDT) Pathologist [facility] Colonoscopy Normal Normal Comment:Tubular adenoma Historical Provider HEALTH MAINTENANCE Final Result * HPV E6/E7 RFLX DANIAL 16 18/45 (01/17/2022 4:22 PM EST) Pathologist [facility] HPV 16 RNA TNP [facility] HPV 18/45 RNA TNP [facility] HPV E6 E7 ADD TNP [facility] HPV mRNA E6/E7 rflx Not Detected Not Detected [facility] Comment: Methodology: Motor Vehicle Technician-Mediated Amplification This assay detects E6/E7 viral messenger RNA (mRNA) from 14 high-risk HPV types (16,18,31,33,35,39,45,51,52,56,58,59,66,68). Cervical sources are required for HPV testing. If a vaginal source from a patient who has had a total hysterectomy with removal of cervix was submitted, please contact the testing laboratory for alternative testing options. For additional information, please refer to http://education.Playboox/faq/VPT892o8 (This link if provided for information/ educational purposes only.) THIS TEST WAS PERFORMED AT: [facility] [address] [place] [address],[place] [phone] KEVEN CHAND MD 01/17/2022 4:22 PM EST Opal Carranza HISTORICAL/NON ORDERABLE LABS Fi nal Result [facility] from Last 3 Months or Most Recently Relevant to Health Maintenance Insurance [facility] STANDARD [facility] JAIL OPTIONS (HMO D-SNP) [place] [id number] Care Teams Warehouse Person Relationship Specialty Start Date End Date James Flores MD [address] [place] [phone] PCP - General Internal Medicine 02/04/14
--- OUTSIDE RECORDS SUMMARY | 2025-01-22 11:20 | XMS_ITS | Clinical Summary ---
Author Organization [facility] Address [address] [place] [address] Phone Care Team Providers Care Customer Support Manager Name Role Phone James Grant MD [...] patient's age to complete this topic Insurance [employer] Care Teams Customer Support Manager Relationship Specialty Start Date End Date James Grant MD PCP - General 03/23/20
--- OUTSIDE RECORDS SUMMARY | 2025-01-22 11:20 | XMS_ITS | Encounter Summary ---
Author Organization [employer] Address [address] [facility] 7t [place] [address] Care Team Providers Care Central Supply Supervisor Name Role Phone James Flores MD Primary Care Provide r Encounter Details Date Type Department Care Team ([facility] st Contact Info) Description 02/21/2022 Abstract [facility] MEDICINE [address] [place] [address] James Flores MD [address] [place] [address] Social History Tobacco Use Types Packs/Day Years [...] filedocumented in this encounter Care Teams Central Supply Supervisor Relationship Specialty Start Date End Date James Flores MD [address] [place] [phone] PCP - General Internal Medicine 02/04/14 documented as of this encounter
--- OUTSIDE RECORDS SUMMARY | 2025-01-22 11:20 | XMS_ITS | Encounter Summary ---
Author Organization [facility] Address [address] [place] [address] Phone Care Team Providers Care Regrinder Operator Name Role Phone James Grant MD Primary Care Provider Unav ailable Reason for Visit * Reason Comments Med Refill Encounter Details Date Type Department Care Team (Late st Contact Info) Description 12/14/2022 Refill [facility] [address] [place] [address] Osmany Leung MD Social History [...] on filedocumented in this encounter Care Teams Regrinder Operator Relationship Specialty Start Date End Date James Grant MD PCP - General 03/23/20 documented as of this encounter
--- OUTSIDE RECORDS SUMMARY | 2025-01-22 11:20 | XMS_ITS | Encounter Summary ---
Author Organization [employer] Address [address] [facility] 7t [place] [address] Care Team Providers Care Furnace Installer Name Role Phone James Flores MD Primary Care Provide r Encounter Details Date Type Department Care Team (Late st Contact Info) Description 03/17/2022 Orders Only [facility] [address] [place], [place] [phone] Jaja Hammond LPN Social History Tobacco Use [...] on filedocumented in this encounter Care Teams Furnace Installer Relationship Specialty Start Date End Date James Flores MD [address] [place] [address] PCP - General Internal Medicine 02/04/14 documented as of this encounter
== END ==
LOC: HO.CARD 09:52
PROVIDERS: PCP Internal Medicine; Visit Provider Internal Medicine
DX: I25.10 Atherosclerotic heart disease of native coronary artery without angina pectoris (principal); R07.2 Precordial pain
CPT/HCPCS: 78452; 93017; A9500; J0280; J2785

== ENCOUNTER → 2025-01-22 09:54 | Outpatient (BNV) | payer OTHER, SELFPAY | PROVIDERS: PCP Internal Medicine | DX: R06.02 Shortness of breath (principal) | CPT/HCPCS: 78452; 93016; 93018 ==

== ENCOUNTER 2025-02-12 10:06 | Outpatient (AMB) | payer MEDICARE, SELFPAY ==
--- NOTE | 2025-02-12 10:09 | A.OFFVIS_ITS ---
Vital Signs 02/12/25 10:12 Height 5 ft Weight 164 lb 14.492 oz BMI 32.2 BP 116/64 Blood Pressure Location Rt brachial Position Sitting Pulse 80 Pulse Source Pulse Oximeter Pulse Oximetry (%) 98 Oxygen Delivery Method Room Air Intake Visit Reasons: DM Intake Note: Patient presents today for a follow-up for Type 2 Diabetes Mellitus: Last Diabetic Eye exam: [facility] the [facility]. Pt had cataracts surgery January 2024 and February 2024. Last Podiatry Exam: Does not see a Body Service Team Member Most recent HbA1c: 7.6% 02/12/2025 Random Glucose- 163 mg/dL, Today ; Cloth Hauler Required: Yes Cloth Hauler Language: Setup Operator Services: Cloth Hauler Offered & Declined Cloth Hauler Name: Daughter will interpret Accompanied by: Daughter Allergies morphine (Morphine) Allergy (Intermediate, Verified 02/12/25 10:13) TACHYCARDIA, ANXIETY oxycodone (Percocet) Allergy (Intermediate, Verified 02/12/25 10:13) Palpitations acetaminophen (From Percocet) Allergy (Verified 02/12/25 10:13) Palpitations prednisone (PREDNISONE) Adverse Reaction (Intermediate, Verified 02/12/25 10:13) ANXIETY HPI Comments Details: 68 year old female presenting for diabetic follow up Medical history: HTN, HLD, Vitamin D deficiency, hypercalcemia T2DM: Initially diagnosed with T2DM in 1999 Was initially started on treatment with orals, and has been requiring insulin since 2014. Current regimen Lantus 38 units qHS-she has erroneously been taking this following the dinner sliding scale below since her last visit Humalog 6-16 SS bkfast and lunch, 2-12 units with dinner Actos 30 mg PO daily Ozempic 1mg Meter download -0% low, 68% target, 32% high, --previously 3% low, 71% target 16% high 10% very high POC A1C 7.6 % from 7.7% from 8.5% from 9.1. She had been on daily prednisone for concern for GCA. Family history of T2DM in her mother, daughter and her siblings. Last eye exam 10/2023, cataracts Denies neuropathy, does not see podiatry. Has nephropathy, CKD-follows with renal Has HLD, on Atorvastatin 80 mg PO daily and Zetia 10 mg PO daily. Has CAD-follows with cardiology 2) Hypercalcemia: Following with Dr Sylvester [facility] CONSTITUTIONAL: Denies weight loss, fever and chills. HEENT: Denies changes in vision and hearing. RESPIRATORY: Denies SOB and cough. CV: Denies palpitations and CP GI: Denies abdominal pain, nausea, vomiting and diarrhea. : Denies dysuria and urinary frequency. MSK: Denies new myalgia and joint pain. SKIN: Denies rash and pruritus. NEUROLOGICAL: Denies headache PSYCHIATRIC: Denies recent changes in mood. PHYSICAL EXAM: GENERAL: Alert and oriented x 3. NAD EYES: EOMI. Anicteric. HENT: Moist mucous membranes. No scleral icterus. No cervical lymphadenopathy. LUNGS: Clear to auscultation bilaterally. CARDIOVASCULAR: Regular rate and rhythm. Systolic murmur. No JVD. ABDOMEN: Soft, non-tender +bs EXTREMITIES: No edema. Non-tender. SKIN: No rashes or lesions. Warm. NEUROLOGIC: No focal neurological deficits. CN II-XII grossly intact PSYCHIATRIC: Cooperative. Appropriate mood and affect [facility] Medical History (Updated 01/01/25 @ 00:00 by Derick Bartlett) Primary osteoarthritis of left knee Acute pain of both knees Tinea corporis Tubular adenoma Non-rheumatic aortic stenosis Hemorrhoids Diverticulosis of colon History of CVA (cerebrovascular accident) Hyperkalemia Cobalamin deficiency CKD (chronic kidney disease) Iron deficiency anemia Temporal arteritis Idiopathic peripheral neuropathy Arthritis ELLIE (obstructive sleep apnea) Obesity Abnormal Pap smear of cervix Osteoporosis Goiter Hyperparathyroidism Hypercalcemia Vitamin D deficiency HLD (hyperlipidemia) HTN (hypertension) T2DM (type 2 diabetes mellitus) On beta anurag at home Chronic constipation Diabetes Anemia GERD (gastroesophageal reflux disease) Sleep apnea Asthma CAD (coronary artery disease) Angina pectoris HTN (hypertension) Surgical History (Updated 02/12/25 @ 10:15 by Charley Bates Tay) Hx of cataract surgery Hx of heart artery stent Hx of cholecystectomy History of esophagogastroduodenoscopy (EGD) H/O colonoscopy Family History Father Liver problem Mother Diabetes Obesity Social History Household Members Other:: With Housing: House Alcohol intake: never Patient Tobacco Use Status: Never used Tobacco Current occupational status: disabled Sexual orientation: Straight/Heterosexual Gender identity: Female Physical Exam Vital Signs: Last Vital Signs Pulse 80 02/12/25 10:12 BP 116/64 02/12/25 10:12 Pulse Ox 98 02/12/25 10:12 Oxygen Delivery Method Room Air 02/12/25 10:12 BMI result Body Mass Index 32.2 Results AMB Hemoglobin A1c AMB Hemoglobin A1c 7.6 % Last Edit by SHAHEED Bains on 02/12/25 10:28 Results Reviewed Results Reviewed: Laboratory Last Values Glucose (Clinic) 163 mg/dL (60-115) H 02/12/25 10:19 Assessment & Plan Assessment & Plan (1) Insulin use (long-term) in type 2 diabetes: Code(s): E11.9 - Type 2 diabetes mellitus without complications; Z79.4 - middle or intermediate school principal (current) use of insulin Category: Medical Qualifiers: Diabetes mellitus complication status: with hyperglycemia Qualified Code(s): E11.65 - Type 2 diabetes mellitus with hyperglycemia; Z79.4 - middle or intermediate school principal (current) use of insulin Plan Patient A1C is improving but not at goal She will continue the humalog dosing as is. Discussed the lantus should never be taken on a sliding scale, that it is long acting. Will have her take 16 units nightly as she has been doing lower than that recently. She previously was at 35 units daily She can treat hypoglycemia by rules of 15s She will return in 3-4 weeks so I can check her readiings or sooner as needed Orders: Orders AMB Hemoglobin A1c Today E11.65 - Type 2 diabetes mellitus with hyperglycemia, Z79.4 - middle or intermediate school principal (current) use of insulin Coding Level of Care Code Est Pt Level 4 (03024) Diagnoses Type 2 diabetes mellitus with hyperglycemia, with long-term current use of insulin E11.65; Z79.4 Diabetes mellitus complication status: with hyperglycemia
[2025-02-12 10:12] VITALS: BP 116/64; PULSE 80; O2SAT 98; BMI 32.2
[2025-02-12 10:23] LABS: Glucose, Whole Blood 163 mg/dL (60-115)
--- OUTSIDE RECORDS SUMMARY | 2025-02-12 11:31 | XMS_ITS | Encounter Summary ---
Author Organization [facility] Address [address] [place] [address] Phone Care Team Providers Care Wholesale Buyer Name Role Phone James Trimble MD Primary Care Provide r Encounter Details Date Type Department Care Team (Late st Contact Info) Description 01/25/2021 Procedure [facility], Ct Scan - [address] [address] Social History Tobacco Use Types Packs/Day Years [...] 01/25/2021 12:53 PM Corinne Rodriguez, LISA * [place] Suicide Severity Rating Scale (Screener/Recent Self-Report) Question Answer Date of Assessment Author 1. Wish to be (Past 1 Month) No 021 12:53 PM Corinne Rodriguez, RN 2. Non-Specific Active Suici taylor Thoughts (Past 1 Month) No 01/25/2021 12:53 PM EST Malathi Rodas, RN 6. Suicidal Behavior (Lifetime) No 12:53 PM EST Corinne Rodas, RN documented as of this encounter Plan of Treatment Upcoming Encounters Date Type Department Care Team (Late st Contact Info) Description 03/11/2025 1:00 PM EST Office Visit [facility] Rheumatology [address] [place] [address] Irina Looney, [address] [facility], [address] [place] [address] documented as of this encounter Visit Diagnoses [...] documented as of this encounter Care Teams Wholesale Buyer Relationship Specialty Start Date End Date James Trimble MD [address] [facility] [place] [phone] PCP - General 03/16/17 documented as of this encounter Additional Source Comments The information contained in this document represents components of the legal health record. It is not the complete legal health record.[facility]
--- OUTSIDE RECORDS SUMMARY | 2025-02-12 11:31 | XMS_ITS | Encounter Summary ---
Author Organization [employer] Address [address] [facility] 7t [place] [address] Care Team Providers Care Senior Supply Chain Analyst Name Role Phone James Flores MD Primary Care Provide r Reason for Visit * Reason Onset Date Comments Call Back Request 08/07/2024 Appointment Request 08/07/2024 Encounter Details Date Type Department Care Team ([facility] st Contact Info) Description 08/07/2024 Telephone [facility] MEDICINE [address] [place] [address] James Flores MD [address] [place] [address] Call Back Request; Appointment Request Social History [...] request for telehealth visit Please return call [phone] documented in this encounter Plan of Treatment Not on file documented as of this encounter Visit Diagnoses Not on filedocumented in this encounter Additional Health Concerns Assessment Noted Time PHQ-9 Depression Total Score: 0 01/30/20 24 10:37 AM EST documented as of this encounter Care Teams Senior Supply Chain Analyst Relationship Specialty Start Date End Date James Flores MD [address] [place] [address] PCP - General Internal Medicine 02/04/14 documented as of this encounter
--- OUTSIDE RECORDS SUMMARY | 2025-02-12 11:31 | XMS_ITS | Encounter Summary ---
Author Organization [facility] Address [address] [facility] [address] [place] [address] Phone Care Team Providers Care Applied Research Director Name Role Phone James Trimble MD Primary Care Provide r Encounter Details Date Type Department Care Team (Late st Contact Info) Description 12/20/2020 Procedure Pass [facility], Ct Scan - [address] [address] Social History Tobacco Use Types Packs/Day Years [...] AM EDT Trey Cardona i, RN * [place] Suicide Severity Rating Scale (Screener/Recent Self-Report) Question [...] Description 03/11/2025 1:00 PM EST Office Visit [facility] Rheumatology [address] [place] [address] Irina Looney, DO [address] [facility], [address] [place] [address] [email or web address] documented as of this encounter Visit Diagnoses [...] documented as of this encounter Care Teams Applied Research Director Relationship Specialty Start Date End Date James Trimble MD [address] [place] [address] [address] [place] [address] PCP - General 03/16/17 documented as of this encounter Additional Source Comments The information contained in this document represents components of the legal health record. It is not the complete legal health record.[facility]
--- OUTSIDE RECORDS SUMMARY | 2025-02-12 11:31 | XMS_ITS | Encounter Summary ---
Author Organization [facility] Address [address] [facility] [address] [place] [address] Phone Care Team Providers Care Cupola Tapper Name Role Phone James Trimble MD Primary Care Provide r Encounter Details Date Type Department Care Team (Late st Contact Info) Description 12/20/2020 Procedure Pass [facility], [address] [address] Social History Tobacco Use Types Packs/Day Years [...] AM EDT Trey Cardona i, RN * [place] Suicide Severity Rating Scale (Screener/Recent Self-Report) Question [...] Description 03/11/2025 1:00 PM EST Office Visit [facility] Rheumatology [address] [place] [address] Irina Looney, DO [address] [facility], [address] [place] [address] [email or web address] documented as of this encounter Visit Diagnoses [...] of this encounter Care Teams Cupola Tapper Relationship Specialty Start Date End Date James Trimble MD [address] [facility] [address] [place] [phone] PCP - General 03/16/17 documented as of this encounter Additional Source Comments The information contained in this document represents components of the legal health record. It is not the complete legal health record.[facility]
--- OUTSIDE RECORDS SUMMARY | 2025-02-12 11:31 | XMS_ITS | Encounter Summary ---
Author Organization [employer] Address [address] [facility] 7t [place] [address] Care Team Providers Care Pattern Stamper Name Role Phone James Flores MD Primary Care Provide r Encounter Details Date Type Department Care Team (Late st Contact Info) Description 06/14/2022 Orders Only [facility] CHC MED & PEDS [address] [place] [address] Jaja Hammond LPN Social History Tobacco Use [...] on filedocumented in this encounter Care Teams Pattern Stamper Relationship Specialty Start Date End Date James Flores MD [address] [place] [address] PCP - General Internal Medicine 02/04/14 documented as of this encounter
--- OUTSIDE RECORDS SUMMARY | 2025-02-12 11:31 | XMS_ITS | Clinical Summary ---
Author Organization [facility] Address [address] [facility] [address] [place] [address] Phone Care Team Providers Care Inserter Promotional Item Name Role Phone James Trimble MD Primary [...] Active ferrous sulfate 325 mg (65 mg ugashik iron) tablet Take 325 mg by mouth [...] nebulizer at home does not see a beater and pulper feeder. Considering home neb. ? Having difficulty using [...] 07/03/2023 8:03 PM EDT Plan of Treatment Upcoming Encounters Date Type Department Care Team (Late st Contact Info) Description 03/11/2025 1:00 PM EST Office Visit [facility] Rheumatology [address] [place] [address] Irina Looney DO [address] [facility], [address] [place] [address] Health Maintenance Due Date Last Done Comments [...] 12/04/2019, 12/19/2017, Additional history exists COVID-19 VACCINE (2024- season) 2024 08/31/2020, 08/01/2020 LIPID PANEL 02/04/2025 [...] (12/21/2020 6:13 AM EDT) HDL 49 mg/dL [facility] Comment: Interpretation <40 mg/dL: Low HDL cholesterol (major risk factor for CHD) Greater than or equal to 60 mg/dL: High HDL cholesterol ( negative risk factor for CHD) HDL - cholesterol is affected by a number of factors, e.g. smoking, excerise, hormones, sex and age. CHOLESTEROL 160 0 - 240 mg/dL [facility] TRIGLYCERIDES 109 30 - 160 mg/dL [facility] LDL 89 50 - 129 mg/dL [facility] Comment: LDL levels in terms of risk for coronary heart disease: <100 mg/dL: Optimal 100-129 mg/dL: Near or above optimal 130-159 mg/dL: Borderline high 160-189 mg/dL: High >190 mg/dL: Very High CARDIAC RISK RATIO 3.3 3.3 - 4.4 C [facility] Blood 12/21/2020 6:13 AM EDT 12/21/2020 6:36 AM EDT us Avni Bernard MD LAB BLOOD BKR ORDERABLES Final Result [facility] [address] [place] [address] from Last 3 Months or Most Recently Relevant to Health Maintenance Insurance MEDICARE REPLACEMENT [place] [id number] MEDICARE REPLACEMENT MEDICARE REPLACEMENT [employer] MEDICARE REPLACEMENT [place] [id number] Advance Directives For more information, please contact: [phone] (9AM - 5PM [facility], Monday-Monday) * Full Code (Latest Code Status on File) Date Activated Date Inactivated Comments 06/26/2021 2:17 PM Question Answer Comments Code Status Confirmed With: Patient * Full Code Date Activated Date Inactivated Comments 12/20/2020 7:48 PM 06/26/2021 2:17 PM Question Answer Comments Code Status Confirmed With: Patient Care Teams Inserter Promotional Item Relationship Specialty Start Date End Date James Trimble MD [address] [place] [address]. [address] [place] [phone] PCP - General 03/16/17 Additional Source Comments The information contained in this document represents components of the legal health record. It is not the complete legal health record.[facility]
--- OUTSIDE RECORDS SUMMARY | 2025-02-12 11:31 | XMS_ITS | Encounter Summary ---
Author Organization [employer] Address [address] [facility] [address] 7t [place] [address] Care Team Providers Care Banking Specialist Name Role Phone James Flores MD Primary Care Provide r Encounter Details Date Type Department Care Team (Late st Contact Info) Description 01/09/2023 Orders Only [facility] CHC MED & PEDS [address] [place] [address] Jaja Hammond LPN Social History Tobacco Use [...] on filedocumented in this encounter Care Teams Banking Specialist Relationship Specialty Start Date End Date James Flores MD [address] [place] [id number] PCP - General Internal Medicine 02/04/14 documented as of this encounter
--- OUTSIDE RECORDS SUMMARY | 2025-02-12 11:31 | XMS_ITS | Encounter Summary ---
Author Organization [employer] [facility] Address [address] [facility] 7[address] [place] [address] Care Team Providers Care Senior Safety Support Manager Name Role Phone James Flores MD Primary Care Provide r Reason for Visit * Reason Comments Med Refill Encounter Details Date Type Department Care Team (Late st Contact Info) Description 08/21/2022 Refill [facility] MEDICINE [address] [place], [place] [phone] James Flores MD [address] [place], [place] [phone] Social History Tobacco Use Types Packs/Day Years [...] filedocumented in this encounter Care Teams Senior Safety Support Manager Relationship Specialty Start Date End Date James Flores MD [address] [place], [place] [phone] PCP - General Internal Medicine 02/04/14 documented as of this encounter
--- OUTSIDE RECORDS SUMMARY | 2025-02-12 11:31 | XMS_ITS | Encounter Summary ---
Author Organization [employer] Address [address] [facility] 7t [place] [address] Care Team Providers Care Metallurgical Or Materials Technician Name Role Phone James Flores MD Primary Care Provide r Encounter Details Date Type Department Care Team (Late st Contact Info) Description 08/22/2022 Orders Only [facility] CHC MED & PEDS [address] [place] [address] Jaja Hammond LPN Social History Tobacco Use [...] on filedocumented in this encounter Care Teams Metallurgical Or Materials Technician Relationship Specialty Start Date End Date James Flores MD [address] [place] [address] PCP - General Internal Medicine 02/04/14 documented as of this encounter
--- OUTSIDE RECORDS SUMMARY | 2025-02-12 11:31 | XMS_ITS | Encounter Summary ---
Author Organization [employer] Address [address] [facility] 7t [place] [address] Care Team Providers Care Small Wind Energy Installer Name Role Phone James Flores MD Primary Care Provide r Encounter Details Date Type Department Care Team (Late st Contact Info) Description 02/12/2025 Orders Only GENERIC EXTERNAL DATA DEPARTMENT Provider, [...] Associated Diagnosis Comments GLUCOSE, WHOLE BLOOD Routine 02/12/2025 10:19 AM EST documented in this encounter Results * (ABNORMAL) Glucose, Whole Blood (02/12/2025 10:19 AM EST) Glucose, Whole Blood 163(H) 60 - 115 mg/dL [facility] Comment:METER #: [id number] 0Testing performed in the Endocrinology Department [address], [address], [facility]. 02/12/2025 10:1 9 AM EST 02/12/2025 10:23 AM EST us Generic External Data Provider LAB BLOOD ORDERAB LES Final Result [facility] [address] [place] [address] [phone] documented in this encounter Visit Diagnoses Not on filedocumented in this encounter Additional Health Concerns Assessment Noted Time PHQ-9 Depression Total Score: 0 01/30/20 24 10:37 AM EST documented as of this encounter Care Teams Small Wind Energy Installer Relationship Specialty Start Date End Date James Flores MD [address] [place] [address] PCP - General Internal Medicine 02/04/14 documented as of this encounter
--- OUTSIDE RECORDS SUMMARY | 2025-02-12 11:32 | XMS_ITS | Encounter Summary ---
Author Organization [employer] Address [address] [facility] 7t [place] [address] Care Team Providers Care College Or University Department Head Name Role Phone James Flores MD Primary Care Provide r Reason for Visit * Reason Onset Date Comments Durable Medical Equipment 07/30/2024 Encounter Details Date Type Department Care Team (Late st Contact Info) Description 07/30/2024 Telephone [facility] MEDICINE [address] [place] [address] James Flores MD [address] [place] [address] Durable Medical Equipment Social History Tobacco Use [...] as of this encounter Care Teams College Or University Department Head Relationship Specialty Start Date End Date James Flores MD [address] [place] [address] PCP - General Internal Medicine 02/04/14 documented as of this encounter
--- OUTSIDE RECORDS SUMMARY | 2025-02-12 11:32 | XMS_ITS | Encounter Summary ---
Author Organization [employer] Address [address] [facility] 7t [place] [address] Care Team Providers Care Custom Miller Name Role Phone James Flores MD Primary Care Provide r Encounter Details Date Type Department Care Team (Late st Contact Info) Description 04/13/2022 Orders Only [facility] MEDICINE [address] [place], [place] [phone] April Olsen LPN Social History Tobacco Use [...] on filedocumented in this encounter Care Teams Custom Miller Relationship Specialty Start Date End Date James Flores MD [address] [place] [address] PCP - General Internal Medicine 02/04/14 documented as of this encounter
--- OUTSIDE RECORDS SUMMARY | 2025-02-12 11:32 | XMS_ITS | Encounter Summary ---
Author Organization [employer] Address [address] [facility] 7t [place] [address] Care Team Providers Care Billet Heater Name Role Phone James Flores MD Primary Care Provide r Reason for Visit * Reason Comments Med Refill Encounter Details Date Type Department Care Team (Late st Contact Info) Description 09/04/2023 Refill [facility] MEDICINE [address] [place] [address] Name, MD Loki [address] [place] [address] Gastroesophageal reflux disease without esophagitis Social History [...] t he electric, gas, oil or water [employer] threatened to shut off services in your [...] reflux documented in this encounter Care Teams Billet Heater Relationship Specialty Start Date End Date James Flores MD [address] [place] [address] PCP - General Internal Medicine 02/04/14 documented as of this encounter
--- OUTSIDE RECORDS SUMMARY | 2025-02-12 11:32 | XMS_ITS | Encounter Summary ---
Author Organization [employer] Address [address] [facility] [address] 7t [place] [address] Care Team Providers Care Drawing Operator Name Role Phone James Flores MD Primary Care Provide r Reason for Visit * Reason Comments Med Refill Encounter Details Date Type Department Care Team (Late st Contact Info) Description 05/10/2024 Refill [facility] [address] [place] [address] Coco Montiel NP [address] [place] [address] Mild intermittent asthma without complication Social History [...] documented as of this encounter Care Teams Drawing Operator Relationship Specialty Start Date End Date James Flores MD [address] [place] [address] PCP - General Internal Medicine 02/04/14 documented as of this encounter
--- OUTSIDE RECORDS SUMMARY | 2025-02-12 11:32 | XMS_ITS | Encounter Summary ---
Author Organization [employer] Address [address] [facility] 7t [place] [address] Care Team Providers Care Electrical Prospector Name Role Phone James Flores MD Primary Care Provide r Reason for Visit * Reason Comments Med Refill Encounter Details Date Type Department Care Team (Late st Contact Info) Description 08/27/2023 Refill [facility] MEDICINE [address] [place] [address] Name, MD Loki [address] [place] [address] Gastroesophageal reflux disease without esophagitis Social History [...] t he electric, gas, oil or water [employer] threatened to shut off services in your [...] reflux documented in this encounter Care Teams Electrical Prospector Relationship Specialty Start Date End Date James Flores MD [address] [place] [address] PCP - General Internal Medicine 02/04/14 documented as of this encounter
--- OUTSIDE RECORDS SUMMARY | 2025-02-12 11:32 | XMS_ITS | Encounter Summary ---
Author Organization [employer] Address [address] [facility] 7t [place] [address] Care Team Providers Care Motor Vehicle Examiner Name Role Phone James Flores MD Primary Care Provide r Encounter Details Date Type Department Care Team ([facility] st Contact Info) Description 03/14/2023 Telephone [facility] [address] [place] [address] Adriana Odell [place] Social History Tobacco Use [...] on filedocumented in this encounter Care Teams Motor Vehicle Examiner Relationship Specialty Start Date End Date James Flores MD [address] [place] [address] PCP - General Internal Medicine 02/04/14 documented as of this encounter
--- OUTSIDE RECORDS SUMMARY | 2025-02-12 11:32 | XMS_ITS | Encounter Summary ---
Author Organization [employer] Address [address] [facility] 7t [place] [address] Care Team Providers Care Litigation Docket Manager Name Role Phone James Flores MD Primary Care Provide r Encounter Details Date Type Department Care Team (Late st Contact Info) Description 05/11/2022 Telephone [facility] MEDICINE [address] [place], [place] [phone] James Flores MD [address] [place] [address] Social History Tobacco Use Types Packs/Day Years [...] on filedocumented in this encounter Care Teams Litigation Docket Manager Relationship Specialty Start Date End Date James Flores MD [address] [place], [place] [phone] PCP - General Internal Medicine 02/04/14 documented as of this encounter
--- OUTSIDE RECORDS SUMMARY | 2025-02-12 11:32 | XMS_ITS | Encounter Summary ---
Author Organization [employer] Address [address] [facility] 7t [place] [address] Care Team Providers Care Lubricating Specialist Name Role Phone James Flores MD Primary Care Provide r Encounter Details Date Type Department Care Team ([facility] st Contact Info) Description 02/21/2022 Abstract [facility] MEDICINE [address] [place] [address] James Flores MD [address] [place] [address] Social History Tobacco Use Types Packs/Day Years [...] on filedocumented in this encounter Care Teams Lubricating Specialist Relationship Specialty Start Date End Date James Flores MD [address] [place] [address] PCP - General Internal Medicine 02/04/14 documented as of this encounter
--- OUTSIDE RECORDS SUMMARY | 2025-02-12 11:32 | XMS_ITS | Encounter Summary ---
Author Organization [employer] Address [address] [facility] 7t [place] [address] Care Team Providers Care Tongue Stitcher Name Role Phone James Flores MD Primary Care Provide r Encounter Details Date Type Department Care Team ([facility] st Contact Info) Description 01/11/2024 Telephone [facility] MEDICINE [address] [place], [place] [phone] James Flores MD [address] [place], [place] [phone] Social History Tobacco Use Types Packs/Day Years [...] on filedocumented in this encounter Care Teams Tongue Stitcher Relationship Specialty Start Date End Date James Flores MD [address] [place] [address] PCP - General Internal Medicine 02/04/14 documented as of this encounter
--- OUTSIDE RECORDS SUMMARY | 2025-02-12 11:32 | XMS_ITS | Encounter Summary ---
Author Organization [facility] Address [address] [facility] [address] [place] [address] Phone Care Team Providers Care Telecom Manager Name Role Phone James Trimble MD Primary Care Provide r Encounter Details Date Type Department Care Team (Late st Contact Info) Description 12/21/2020 Procedure Pass [facility]iology [address] [place] [address] Social History Tobacco Use Types Packs/Day Years [...] AM EDT Trey Cardona i, RN * [place] Suicide Severity Rating Scale (Screener/Recent Self-Report) Question [...] Description 03/11/2025 1:00 PM EST Office Visit [facility] Rheumatology [address] [place] [address] Irina Looney, DO [address] [facility], [address] [place] [address] documented as of this encounter Visit Diagnoses [...] documented as of this encounter Care Teams Telecom Manager Relationship Specialty Start Date End Date James Trimble MD [address] [place] [address]. [address] [place] [phone] PCP - General 03/16/17 documented as of this encounter Additional Source Comments The information contained in this document represents components of the legal health record. It is not the complete legal health record.[facility]
--- OUTSIDE RECORDS SUMMARY | 2025-02-12 11:32 | XMS_ITS | Encounter Summary ---
Author Organization [employer] Address [address] [facility] 7t [place] [address] Care Team Providers Care Lime Mixer Tender Name Role Phone James Flores MD Primary Care Provide r Reason for Visit * Reason Onset Date Comments Nurse Triage 03/18/2024 Encounter Details Date Type Department Care Team (Late st Contact Info) Description 03/18/2024 Telephone [facility] MEDICINE [address] [place] [address] James Flores MD 230 [place], [place] [phone] Nurse Triage Social History Tobacco Use Types [...] [facility] [place] [id number]. Pt reports continual coughing with cold symptoms. Pt was seen in [facility] 02/29/24 for cough and exacerbation of asthma. Pt reports has been using inhaler and nebulizer as prescribed though not every day. Pt denies having difficulty breathing. Pt requests to see provider again due to continuation of cough and cold symptoms neg for fever. Pt is advised to return to [facility] today open till 8pm and Pt agrees with this disposition. Pt is requesting what medication could be taken for cough , Pt is taking BPmedications and is advised to ask provider when seen in [facility] and Pt agrees. Insurance is verified asactive. [...] documented as of this encounter Care Teams Lime Mixer Tender Relationship Specialty Start Date End Date James Flores MD [address] [place] [address] PCP - General Internal Medicine 02/04/14 documented as of this encounter
--- OUTSIDE RECORDS SUMMARY | 2025-02-12 11:32 | XMS_ITS | Clinical Summary ---
Author Organization [employer] Address [address] [facility] [address] [place] [address] Care Team Providers Care Spindle Sander Name Role Phone James Flores MD Primary [...] the morning. 023 Active Calcium Citrate-Vitamin D ([place] Calcium/Vitamin D) 200-6.25 MG-MCG tablet TAKE 2 [...] CHANGE EVERY 14 DAYS Active Continuous Glucose Rock Lather (FreeStyle Collin 3 [place]) device USE DIRECTED Active bisacodyl (Dulcolax) 10 [...] needed). 90 mL 3 Active nystatin (Mycostatin) 114470 UNIT/GM powderIndications :Tinea corporis Apply topically 2 [...] DIRECTED FOUR TIMES DAILY 100 each 6 01/31/20 25 5:29 PM EST 025 Active clopidogrel (Plavix) 75 MG tablet [...] EVENING WITH FOOD 180 tablet 1 Active HumaLOG KWIKPEN 100 UNIT/ML injectionIndicati ons:Type 2 diabetes mellitus without complication, with long-term current use of insulin ([facility]) INJECT 6 TO 16 UNITS SUBCUTANEOUSLY DIRECTED PER SLIDING SCALE: BLOOD SUGAR 150-200 = 6 UNITS, 201-250 = 10 UNITS, 251-300 = 12 UNITS, 301-350 = 14 UNITS > 351 = 16 UNITS 15 mL 3 01/31/20 25 5:29 PM EST 025 Active Acetaminophen Extra Strength 500 MG [...] % pads USE DIRECTED 100 each 11 01/31/20 25 5:29 PM EST 025 Active amLODIPine (Norvasc) 5 MG tablet TAKE 1 TABLET BY MOUTH EVERY EVENING 30 tablet 5 025 Active loratadine (Claritin) 10 MG tabletIndications :Seasonal allergies TAKE 1 TABLET BY MOUTH EVERY MORNING 30 tablet 5 025 Active Ferrous Sulfate (iron) 325 (65 Fe) MG tabletIndications :Chronic anemia TAKE 1 TABLET BY MOUTH THREE TIMES DAILY IN THE MORNING, AT NOON, AND IN THE EVENING 90 tablet 1 025 Active Ferrous Sulfate (iron) [...] to far out. Pt did see an Credit Cashier that did not see any abnormalitites and [...] to far out. Pt did see an Credit Cashier that did not see any abnormalitites and [...] to far out. Pt did see an Credit Cashier that did not see any abnormalitites and [...] acute injury to the right knee. 2. Edds-sy-igomkvvb lateral compartment degenerative changes. Left: IMPRESSION: 1. [...] acute injury to the right knee. 2. Qnqt-fz-iruhvzjc lateral compartment degenerative changes. Left: IMPRESSION: 1. [...] evaluation Last colonoscopy 07/2022 showed tubular adenomas [facility] care 06/21/2022 Assessment & Plan (12/10/2024 9:36 AM EDT): Mammogram: NL : 11/04/2024 Pap Smear: 06/27/2023: Normal In 11/24/2016 ASCUS with positive HPV. Pt underwent Colpo with biopsies & ECC per [employer] notes from 04/2017 Colonoscopy: 07/2022 Tubular adenoma repeat 3 years Vaccines: Flu shot: declines tdap: 05/31/2013 Dexa scan:. 04/28/2015 showed osteopenia Assessment & Plan (03/21/2024 9:20 AM EST): Routine physical exam today: within normal limits Mammogram: NL : 02/22/2023 Pap Smear: 06/27/2023: Normal In 11/24/2016 ASCUS with positive HPV. Pt underwent Colpo with biopsies & ECC per [employer] notes from 04/2017 Colonoscopy: 07/2022 Tubular adenoma repeat 3 years Vaccines: Flu shot: tdap: 05/31/2013 Dexa scan:. 04/28/2015 showed osteopenia Assessment & Plan (01/30/2024 11:02 AM EST): Routine physical exam today: within normal limits Mammogram: NL : 02/22/2023 Pap Smear: 06/27/2023: Normal In 11/24/2016 ASCUS with positive HPV. Pt underwent Colpo with biopsies & ECC per [employer] notes from 04/2017 Colonoscopy: 07/2022 Tubular adenoma repeat 3-5 years Vaccines: Flu shot: tdap: 05/31/2013 Dexa scan:. 04/28/2015 showed osteopenia Assessment & Plan (01/19/2023 1:43 PM EST): Mammogram: NL : 01/29/2021 Pap Smear: 11/24/2016 ASCUS with positive HPV. Pt underwent Colpo with biopsies & ECC per [employer] notes from 04/2017 she was supposed to have a repeat with co test 04/2018 and if both neg then would f/u in 3 years records requested Colonoscopy: 07/2022 Tubular adenoma repeat 3-5 years Vaccines: Flu shot: tdap: 05/31/2013 Dexa scan:. 04/28/2015 showed osteopenia History of CVA (cerebrovascular accident) 2021 Assessment & Plan (05/30/2024 9:07 AM EDT): Hx of this Pt was admitted to [facility] from 10:12/31-12/22/2020 Patient presented to ED [...] Hx of this Pt was admitted to [facility] from 10:12/31-12/22/2020 Patient presented to ED [...] surgery Microalbumin checked on:06/21/2023 was: 216 Pt's equity manager is thinking about reintroducing an ROMI inhibitor [...] Plan: continue to follow with Endocrinology, Dr. Phna I stressed the need to adhere to [...] 11:27 AM EST): Seen at [facility] 01/28/2023 with an asthma exacerbation Doing [...] disease and negative nuclear stress test at [facility] . Due to her Hx of [...] disease and negative nuclear stress test at [facility] . Due to her Hx of [...] disease and negative nuclear stress test at [facility] . Due to her recent CVA [...] disease and negative nuclear stress test at [facility] . Due to her recent CVA [...] Encounters Date Type Department Care Team Description 02/12/2025 Orders Only GENERIC EXTERNAL DATA DEPARTMENT Provider, Generic External Data 01/24/2025 Refill [facility] [address] [place] [address] James Flores MD Chronic anemia 01/22/2025 Orders Only [facility] External Provider, [facility] 12/27/2024 Refill [facility] [address] [place] [address] James Flores MD Seasonal allergies 12/22/2024 Refill [facility] [address] [place] [address] James Flores MD 12/16/2024 Refill [facility] [address] [place] [address] James Flores MD Type 2 diabetes mellitus without complication, with long-term current use of insulin ([facility]) 12/10/2024 9:15 AM EDT Office Visit [facility] [address] [place] [address] James Flores MD Type 2 diabetes mellitus with stage 3a chronic kidney disease, with long-term current use of insulin (CMS/[facility]) (Primary Dx); Hypertension, unspecified type; CKD stage 3 secondary to diabetes (CMS/HCC); Coronary artery disease involving zuni coronary artery of zuni heart without angina pectoris; Closed fracture of phalanx of left fifth toe with routine healing; Urinary incontinence, unspecified type; Hair loss; Temporal arteritis (CMS/HCC); Age-related osteoporosis without current pathological fracture; Preventative health care 12/10/2024 Orders Only GENERIC EXTERNAL DATA DEPARTMENT Provider, Generic External Data 12/10/2024 Travel 12/09/2024 Telephone [facility] [address] [place] [address] James Flores MD chart prep 11/27/2024 Refill [facility] [address] [place] [address] James Flores MD 11/22/2024 Refill [facility] [address] [place] [address] James Flores MD Chronic anemia 11/20/2024 Orders Only GENERIC EXTERNAL DATA DEPARTMENT Provider, Generic External Data 11/20/2024 Refill [facility] [address] [place] [address] James Flores MD Type 2 diabetes mellitus without complication, with long-term current use of insulin ([facility]) 11/19/2024 Refill [facility] [address] [place] [address] James Flores MD 11/14/2024 Abstract [facility] [address] [facility] [place] [address] Yazmin Ashraf [place] 11/13/2024 Orders Only GENERIC [...] 1955 FIT 1955 FOBT 1955 Sigmoidoscopy 1955 Alcohol/Substance Use Screening 1967 Hepatitis C Screening 05/18/1973 Pneumococcal Vaccine: 50+ Years (1 of 2 - PCV) 05/18/1974 RSV Patients and Patients Aged 60 years or older (1 - Risk 50-74 years 1-dose series) 05/18/2005 Zoster Vaccines (3 of 3) 09/14/2021 07/20/2021, 08/0 11/2015 COVID-19 Vaccine (3 - season) 2024 08/31/2020, 08/01/2020 Influenza Vaccine (#1) 2024 , 11/23/2022, 11/23/2022, Additional history exists Depression Screening 01/29/2025 01/30/2024, 01/30/20 24 Diabetes: Hemoglobin A1C 03/11/202512/10/ 025, 10/31/2024, 09/03/2024, Additional history exists SDOH Screening 05/30/2025 05/30/2024 Colonoscopy 07/11/2025 07/11/2022 Colorectal Cancer Screening 07/11/2025 Diabetes: Foot Exam 10/30/2025 10/30/2024, 02/07/2024, 02/07/2024, Additional history exists Lipid Panel 10/31/2025 10/31/2024, 01/12, 01/19/2023, Additional history exists Tobacco Screening 12/10/2025 12/10/2024 Eye Exam 06/20/2026 06/20/2024 Mammogram 11/14/2026 11/14/2024, 10/12, 02/22/2023, Additional history exists HPV/Cotest 01/17/2027 01/17/2022, 09/2021, [...] WHOLE BLOOD Routine 02/12/2025 10:19 AM EST NM HEART PERFUSION SPECT STRESS AND REST Routine 01/22/2025 11:53 AM EST XR SHOULDER 2+ VIEWS LEFT Routine 12/31/2024 4:24 PM EDT XR LUMBAR SPINE 2-3 VIEWS Routine 12/31/2024 4:15 PM EDT IMMUNOFIXATION, URINE Routine 12/10/2024 2:42 PM EDT IMMUNOFIXATION, SERUM Routine 12/10/2024 9:50 AM EDT VITAMIN D,25-OH,TOTAL,IA Routine 12/10/2024 9:50 AM EDT CALCIUM Routine 12/10/2024 9:50 AM EDT CREATININE, SERUM Routine 12/10/2024 9: 50 AM EDT UREA NITROGEN (BUN) Routine 12/10/2024 9 :50 AM EDT ELECTROLYTE PANEL Routine 12/10/2024 9:5 0 AM EDT PTH, INTACT WITHOUT CALCIUM Routine 12/10/2024 9:50 AM EDT TSH W/REFLEX TO FT4 Routine 12/10/2024 9 :50 AM EDT Hair loss POCT GLUCOSE Routine 12/10/2024 9:27 AM EDT Type 2 diabetes mellitus with stage 3a chronic kidney disease, with long-term current use of insulin ([facility]) POCT GLYCOSYLATED HEMOGLOBIN (HGB A1C) Routine 12/10/2024 9:26 AM EDT Type 2 diabetes mellitus with stage 3a chronic kidney disease, with long-term current use of insulin ([facility]) CALCIUM Routine 11/20/2024 11:16 AM EDT CREATININE, SERUM Routine 11/20/2024 11: 16 AM EDT UREA NITROGEN (BUN) Routine 11/20/2024 1 1:16 AM EDT ELECTROLYTE PANEL Routine 11/20/2024 11: 16 AM EDT HM MAMMOGRAPHY Routine 11/14/2024 10:06 AM EDT GLUCOSE, WHOLE BLOOD Routine 11/13/2024 9:56 AM EDT LIPID PANEL, STANDARD Routine 10/31/2024 10:27 AM EDT AMB REFERRAL TO OPHTHALMOLOGY Urgent 06/20/2024 Giant cell arteritis (CMS/HCC) PAP SMEAR Routine 06/22/2023 3:20 PM EDT HM COLONOSCOPY Routine 07/11/2022 3:53 PM EDT ZZZ HISTORICAL HPV E6/E7 RFLX DANIAL 16 18/45 Routine 01/17/2022 4:22 PM EST from Last 3 Months or Most Recently Relevant to Health Maintenance Results * (ABNORMAL) Glucose, Whole Blood (02/12/2025 10:19 AM EST) Only the most recent of2 resultswithin the time period is included. Glucose, Whole Blood 163(H) 60 - 115 mg/dL [facility] Comment:METER #: [id number] 0Testing performed in the Endocrinology Department [address] , [address], [facility]. 02/12/2025 10:1 9 AM EST 02/12/2025 10:23 AM EST us Generic External Data Provider LAB BLOOD ORDERAB LES Final Result [facility] [address] [place] [phone] * NM heart perfusion SPECT stress and rest (01/22/2025 11:53 AM EST) Anatomical Region Laterality Modality Body Nuclear Medicine 01/22/2025 11:5 3 AM EST Narrative 01/23/2025 3:58 PM EST [place] [address] Nuclear Medicine Report Signed Patient: Jayne Lane MR#: [id number] : 1955 Acct:[id number] Age/Sex: 69 / F ADM Date: 01/22/25 Loc: .[facility] Attending Dr: Rohan Singh MD Ordering Physician: Rohan Singh MD Date of Service: 01/22/25 Procedure(s): NM mata perf SPECT rest str Accession Number(s): [id number] cc: James Trimble MD; Rohan Singh MD Reason for Exam: R07.2 - Precordial pain Lexiscan Myocardial perfusion study Indication: Precordial chest pain to evaluate for myocardial ischemia Technique: The patient was brought in for a Lexiscan perfusion study on 01/22/2025 and was injected 0.4 mg of Lexiscan intravenously. Within a minute of this injection 25 mCi of sestamibi was given intravenously. Images were obtained using the SPECT gamma camera interlaced with the gating device. Images were obtained in supine position. Resting perfusion study was performed on 01/23/2025. Patient was administered 25 mCi of sestamibi intravenously at rest. Images were then obtained in supine position. Images were processed with the software and compared side to side in short axis, horizontal long axis and vertical long axis views. Images obtained without without CT attenuation. Total DLP 160 mGy-cm. Findings: The stress perfusion study showed nonattenuated images show normal uptake of radiotracer in all segments of the LV myocardium. Attenuated corrected images show mildly reduced uptake in the apex of the LV myocardium. There is suggestion of left ventricular hypertrophy present. The gated study shows normal LV systolic function with calculated LVEF of greater than 60%. LV cavity is normal in size. The gated study shows normal systolic wall thickening and contraction of segments. Resting study shows no change in perfusion pattern compared to stress perfusion study. Gating at rest reveals normal systolic wall motion with ejection fraction at 66%. The findings are consistent with normal myocardial perfusion. NM/NM mata perf SPECT rest str Impression: 1. Myocardial perfusion imaging study shows normal myocardial perfusion 2. Gated LVEF is 66% 3. Transient ischemic dilatation not present Nondiagnostic changes on EKG. Electronically signed by: Ger Anderson MD 01/23/2025 03:55 PM EST Dictated By: Ger Anderson MD Signed By: <Electronically signed by Ger Anderson MD in OV> 01/23/25 1555 DD/ 1153 TD/TT: 01/23/25 1435 Aerospace Stress Engineer: Procedure Note Donotuseinterpreter, Image - 01/23/[address] [address] Nuclear Medicine Report Signed Patient: Jayne LaneMR#: [id number] : 6Acct:[id number] Age/Sex: 69 / FADM Date: 01/22/25 Loc: .[facility] Attending Dr: Rohan Singh MD Ordering Physician: Rohan Singh MD Date of Service: 01/22/25 Procedure(s): NM mata perf SPECT rest str Accession Number(s): [id number] cc: James Trimble MD; Rohan Singh MD Reason for Exam: R07.2 - Precordial pain Lexiscan Myocardial perfusion study Indication: Precordial chest pain to evaluate for myocardial ischemia Technique: The patient was brought in for a Lexiscan perfusion study on 01/22/2025 and was injected 0.4 mg of Lexiscan intravenously. Within a minute of this injection 25 mCi of sestamibi was given intravenously. Images were obtained using the SPECT gamma camera interlaced with the gating device. Images were obtained in supine position. Resting perfusion study was performed on 01/23/2025. Patient was administered 25 mCi of sestamibi intravenously at rest. Images were then obtained in supine position. Images were processed with the software and compared side to side in short axis, horizontal long axis and vertical long axis views. Images obtained without without CT attenuation. Total DLP 160 mGy-cm. Findings: The stress perfusion study showed nonattenuated images show normal uptake of radiotracer in all segments of the LV myocardium. Attenuated corrected images show mildly reduced uptake in the apex of the LV myocardium. There is suggestion of left ventricular hypertrophy present. The gated study shows normal LV systolic function with calculated LVEF of greater than 60%. LV cavity is normal in size. The gated study shows normal systolic wall thickening and contraction of segments. Resting study shows no change in perfusion pattern compared to stress perfusion study. Gating at rest reveals normal systolic wall motion with ejection fraction at 66%. The findings are consistent with normal myocardial perfusion. NM/NM mata perf SPECT rest str Impression: 1. Myocardial perfusion imaging study shows normal myocardial perfusion 2. Gated LVEF is 66% 3. Transient ischemic dilatation not present Nondiagnostic changes on EKG. Electronically signed by: Ger Anderson MD 01/23/2025 03:55 PM EST Dictated By: Ger Anderson MD Signed By: <Electronically signed by Ger Anderson MD in OV> 01/23/25 1555 DD/ 1153 TD/TT: 01/23/25 1435 Aerospace Stress Engineer: [facility] External Provider IMG NM PROCEDURES Final Result * XR Shoulder 2+ Views Left (12/31/2024 4:24 PM EDT) Anatomical Region Laterality Modality Upper Extremities, Shoulder Left Radi ographic Imaging 12/31/2024 4:24 PM EDT Narrative 12/31/2024 4:33 PM EDT [place] [address] XRay Report Signed Patient: Jayne Lane MR#: [id number] : 1955 Acct:[id number] Age/Sex: 69 / F ADM Date: 12/31/24 Loc: HO.ED Attending Dr: Ordering Physician: Patrick Borrego Date of Service: 12/31/24 Procedure(s): XR shoulder LT min 2V Accession Number(s): [id number] cc: James Trimble MD; Patrick Borrego Reason [...] 12/31/24 1631 DD/ 1624 TD/TT: 12/31/24 1625 Aerospace Stress Engineer: BHANU Procedure Note Donotuseinterpreter, Image - 12/31/2024 [place] [address] XRay Report Signed Patient: Jayne LaneMR#: [id number] : 1955cct:[id number] Age/Sex: 69 / FADM Date: 12/31/24 Loc: .ED Attending Dr: Ordering Physician: Patrick Borrego Date of Service: 12/31/24 Procedure(s): XR shoulder LT min 2V Accession Number(s): [id number] cc: James Trimble MD; Patrick Borrego Reason [...] 12/31/24 1631 DD/ 1624 TD/TT: 12/31/24 1625 Aerospace Stress Engineer: BHANU us [facility] External Provider IMG XR PROCEDURES Final Result * XR Lumbar Spine 2-3 Views (12/31/2024 4:15 PM EDT) Anatomical Region Laterality Modality Spine, L-spine Radiographic Rena ging 12/31/2024 4:15 PM EDT Narrative 12/31/2024 4:35 PM EDT [address] [address] XRay Report Signed Patient: Jayne Lane MR#: [id number] : 1955 Acct:[id number] Age/Sex: 69 / F ADM Date: 12/31/24 Loc: .ED Attending Dr: Ordering Physician: Patrick Borrego Date of Service: 12/31/24 Procedure(s): XR lumbar spine 2-3V Accession Number(s): [id number] cc: James Trimble MD; Patrick Borrego Reason [...] 12/31/24 1633 DD/ 1615 TD/TT: 12/31/24 162 Aerospace Stress Engineer: BHANU Procedure Note Donotuseinterpreter, Image - 12/31/[address] [address] XRay Report Signed Patient: Jayne LaneMR#: [id number] : 6Acct:[id number] Age/Sex: 69 / FADM Date: 12/31/24 Loc: HO.ED Attending Dr: Ordering Physician: Patrick Borrego Date of Service: 12/31/24 Procedure(s): XR lumbar spine 2-3V Accession Number(s): [id number] cc: James Trimble MD; Patrick Borrego Reason [...] 12/31/24 1633 DD/ 1615 TD/TT: 12/31/24 162 Aerospace Stress Engineer: BHANU us [facility] External Provider IMG XR PROCEDURES Final Result * Immunofixation (SONIA), Urine (12/10/2024 2:42 PM EDT) SONIA Interpretation [facility] Comment:No monoclonal protei ns detected.THIS TEST WAS PERFORMED AT:[facility] [place] [id number] CHAND MD 12/10/2024 2:42 PM EDT 12/10/2024 4:05 PM EDT us Generic External Data Provider LAB URINE ORDERAB LES Final Result Performing Organization Address City/[facility]/ZIP Co de Phone Number [facility] [address] [place] [phone] * Vitamin D, 25-Hydroxy, Total, Immunoassay (12/10/2024 9:50 AM EDT) Vitamin D 25-OH Total 47.1 >30 ng/mL [facility] Comment: Health Based Reference Values*< 20 ng/mL Nhqsdhwtw15-83 ng/mL Insufficient> 30 ng/mL Sufficient*Altagracia GOODWIN. N [...] Provider LAB BLOOD ORDERAB LES Final Result [facility] [address] [place] [phone] * TSH with Reflex to Free T4 (12/10/2024 9:50 AM EDT) TSH reflex Free T4 1.76 0.32 - 4.0 uIU/mL [facility] Blood Venous blood specimen / Unknown 12/10/2024 9:50 AM EDT 12/10/2024 11:50 AM EDT us James Ashraf MD LAB BLOOD ORDERABLES Final Result Performing Organization Address [facility] Co de Phone Number [facility] [address] [place] [phone] * (ABNORMAL) Creatinine, Serum (12/10/2024 9:50 AM EDT) Only the most recent of2 resultswithin the time period is included. Creatinine, Serum 1.48(H) 0.5 - 1.4 mg/dL [facility] Estimated Glomerular Filt Rate 35 [facility] Comment:Chronic Kidney Disea se: Estimated GFR < 60 mL/min/1.85a1Gzopvg Kidney Disease: Estimated GFR < 15 mL/min/1.73m2 12/10/2024 9:50 AM EDT 12/10/2024 11:50 AM EDT us Generic External Data Provider LAB BLOOD ORDERAB LES Final Result Performing Organization Address [facility] Co de Phone Number [facility] [address] [place] [phone] * Immunofixation, Serum (12/10/2024 9:50 AM EDT) IMMUNOGLOBULIN G 851 600 - 1540 mg/dL [facility] IMMUNOGLOBULIN A 196 70 - 320 mg/dL [facility] Immunoglobulin M 75 50 - 300 mg/dL [facility] Comment:THIS TEST WAS PERFOR MED AT:[facility] [place] [phone] CHAND MD Immunofixation Result SEE NOTE [facility] Comment:Normal pattern. No m onoclonal proteins detected. 12/10/2024 9:50 AM EDT 12/10/2024 11:50 AM EDT us Generic External Data Provider LAB BLOOD ORDERAB LES Final Result Performing Organization Address [facility] Co de Phone Number [facility] [address] [place] [phone] * (ABNORMAL) BUN (Blood Urea Nitrogen) (12/10/2024 9:50 AM EDT) Only the most recent of2 resultswithin the time period is included. Urea Nitrogen (BUN) 25(H) 9 - 16 mg/dL [facility] 12/10/2024 9:50 AM EDT 12/10/2024 11:50 AM EDT us Generic External Data Provider LAB BLOOD ORDERAB LES Final Result Performing Organization Address [facility] de Phone Number [facility] [address] [place] [phone] * PTH, Intact Without Calcium (12/10/2024 9:50 AM EDT) Parathyroid Hormone, Intact 71.3 8.7 - 77.1 pg/mL [facility] 12/10/2024 9:50 AM EDT 12/10/2024 11:50 AM EDT Generic External Data Provider LAB BLOOD ORDERAB LES Final Result Performing Organization Address [facility] de Phone Number [facility] [address] [place] [phone] * Calcium (12/10/2024 9:50 AM EDT) Only the most recent of2 resultswithin the time period is included. Calcium 9.5 8.4 - 10.2 mg/dL [facility] 12/10/2024 9:50 AM EDT 12/10/2024 11:50 AM EDT us Generic External Data Provider LAB BLOOD ORDERAB LES Final Result Performing Organization Address [facility] de Phone Number [facility] [address] [place] [phone] * (ABNORMAL) Electrolyte Panel (12/10/2024 9:50 AM EDT) Only the most recent of2 resultswithin the time period is included. [facility] Sodium 144 135 - 145 mmol/L [facility] Potassium 4.9 3.3 - 5.1 mmol/L [facility] Chloride 109(H) 96 - 108 mmol/L [facility] Carbon Dioxide 29 22 - 29 mmol/L [facility] Anion Gap 11(L) 12 - 20 [facility] 12/10/2024 9:50 AM EDT 12/10/2024 11:50 AM EDT us Generic External Data Provider LAB BLOOD ORDERAB LES Final Result Performing Organization Address [facility] de Phone Number [facility] [facility] [address] [place] [phone] * (ABNORMAL) POCT glucose manually resulted (12/10/2024 9:27 AM EDT) Pathologist [facility] Glucose Blood, POC 8.5(A) 60 - 200 mg/dL QC Media Lot # [id number] Lot# Expiration Date [id number] Blood Capillary blood specimen / Unknown 12/10/2024 9:27 AM EDT James Ashraf MD POINT OF CARE TEST ENTER/EDIT ORDERABLES Edited Result - Final * (ABNORMAL) POCT glycosylated hemoglobin (Hgb A1c) (12/10/2024 9:26 AM EDT) Hemoglobin A1C 255.0(A) 4.0 - 5.7 % QC Media Lot # [id number] Lot# Expiration Date [id number] Blood Capillary blood specimen / Unknown 12/10/2024 9:26 AM EDT James Ashraf MD POINT OF CARE TEST EN TER/EDIT ORDERABLES Final Result * Mammography (11/14/2024 10:06 AM EDT) Mammogram BIRADS 1 Normal, Abnormal, BIRADS 1 , BIRADS 2 Comment:follow up 1 year Anatomical Region Laterality Modality Other Historical Provider HEALTH MAINTENANCE Final Result * Lipid Panel, Standard (10/31/2024 10:27 AM EDT) Pathologist [facility] Triglycerides 126 <150 mg/dL [facility] Comment:Desirable Triglyceri de: less than 150 mg/dLBorderline High Triglyceride 150-199 mg/dLHigh Triglyceride: 200-499 mg/dLVery High Triglyceride: greater than or equal to 5OO mg/dL Cholesterol 139 <200 mg/dL [facility] Comment:Desirable Cholestero l: less than 200 mg/dLBorderline High Cholesterol: 200-239 mg/dLHigh Cholesterol: greater than 239 mg/dL LDL Cholesterol Calculated 71 <100 mg/dL [facility] Comment:Desirable LDL: less than 100 mg/dLNear Optimal/Above Optimal LDL: 110- 129 mg/dLBorderline High LDL: 130-159 mg/dLHigh LDL: 160-189 mg/dLVery High LDL: greater than or equal to 190 mg/dL HDL Cholesterol 43 >40 mg/dL [facility] Comment:Desirable HDL: great er than 40 mg/dL Note: This HDL assay may give artificially low results in patients with liver disease. 10/31/2024 10:2 7 AM EDT 10/31/2024 11:25 AM EDT Generic External Data Provider LAB BLOOD ORDERAB LES Final Result [facility] [address] [place] [phone] * Referral to Ophthalmology (06/20/2024) us Ludwin Sylvester MD OUTPATIENT REFERRAL ORDERABLES F inal Result * Pap Smear (06/22/2023 3:20 PM EDT) 06/22/2023 3:20 PM EDT 06/27/2023 11:15 AM EDT Narrative [facility] - 07/11/2023 2:16 PM EDT ----- ------- Name: Jayne Lane Age/Sex: 68/F : 1955 Unit#: [id number] Attend Dr: Opal Carranza CNM Re06/22/23 Status: DEP REF Location: HO.LNP Disch: ----- ------- SPEC : [id number] RECD: 06/27/23-1115 STATUS: DERRELL CHACKO NUM: [id number] CYRUS: 06/22/23-1520 [facility] DR: Opal Carranza CNM ENTERED: 06/27/23-1232 SP [...] 59, 66, 68) HPV testing performed by [facility], [place], [place]. See reference laboratory portion of the EMR for entire report. Clinical Information LMP: Menopause Previous PAP test: 02/01, Abnormal Other surgery:03/30 colpo DELPHINE I Other history: 2015 +HPV ACUS, 07/29 +HPV Material Received ThinPrep-Cervical Copies To: James Trimble MD [address] [place] [address] Opal Carranza [address] Rodriguez [address] [place] [phone] ----- ------- Signed (signature on file) Ev Phenix 07/11/23 1416 ----- ------- END OF REPORT us Generic External Data Provider LAB CYTOLOGY RELL SALAZAR Final Result [facility] [address] [place] [address] [phone] * Colonoscopy (07/11/2022 3:53 PM EDT) [...] Not Detected [facility] Comment: Methodology: Cobol Programmer-Mediated Amplification This assay detects E6/E7 viral messenger RNA (mRNA) from 14 high-risk HPV types (16,18,31,33,35,39,45,51,52,56,58,59,66,68). Cervical sources are required for HPV testing. If a vaginal source from a patient who has had a total hysterectomy with removal of cervix was submitted, please contact the testing laboratory for alternative testing options. For additional information, please refer to http://education.[employer]/faq/ZTO329d8 (This link if provided for information/ educational purposes only.) THIS TEST WAS PERFORMED AT: [facility] [address] [place] [address] [address]OR,[place] [phone] KEVEN CHAND MD 01/17/2022 4:22 PM EST Opal Carranza HISTORICAL/NON ORDERABLE LABS Fi nal Result [facility] from Last 3 Months or Most Recently Relevant to Health Maintenance Insurance [facility] LONG-TERM OPTIONS (HMO D-SNP) Care Teams Spindle Sander Relationship Specialty Start Date End Date James Flores MD [address] [place] [phone] PCP - General Internal Medicine 02/04/14
--- OUTSIDE RECORDS SUMMARY | 2025-02-12 11:32 | XMS_ITS | Encounter Summary ---
Author Organization [employer] Address [address] [facility] [address] [place] [address] Care Team Providers Care Independent Living Instructor Name Role Phone James Flores MD Primary Care Provide r Reason for Visit * Reason Onset Date Comments Durable Medical Equipment 09/27/2023 Encounter Details Date Type Department Care Team (Late st Contact Info) Description 09/27/2023 Telephone [facility] [address] [place] [address] James Flores MD [address] [place], [place] [phone] Durable Medical Equipment Social History Tobacco Use [...] 1 flip pillow DME Please contact at [phone] * Telephone Encounter - Fernando Christie - 09/27/2023 2:40 PM EDT Tc from pt 10 in 1 flip pillow due to issues sleeping. Pt would like script to be faxed to [facility]. If any questions you can contact pt at [phone]. documented in this encounter Plan of Treatment Not on file documented as of this encounter Visit Diagnoses Not on filedocumented in this encounter Care Teams Independent Living Instructor Relationship Specialty Start Date End Date James lFores MD [address] [place] [phone] PCP - General Internal Medicine 02/04/14 documented as of this encounter
--- OUTSIDE RECORDS SUMMARY | 2025-02-12 11:32 | XMS_ITS | Encounter Summary ---
Author Organization [employer] Address [address] [facility] [address]t [place] [address] Care Team Providers Care Department Head College Or [employer] Name Role Phone James Flores MD Primary Care Provide r Encounter Details Date Type Department Care Team (Late st Contact Info) Description 03/17/[address] [facility] [address] [place], [place] [phone] Jaja Hammond LPN Social History Tobacco Use [...] on filedocumented in this encounter Care Teams Department Head College Or University Relationship Specialty Start Date End Date James Flores MD [address] [place] [address] PCP - General Internal Medicine 02/04/14 documented as of this encounter
--- OUTSIDE RECORDS SUMMARY | 2025-02-12 11:32 | XMS_ITS | Encounter Summary ---
Author Organization [facility] Address [address] [facility] [address] [place] [address] Phone Care Team Providers Care Patient Care Name Role Phone James Trimble MD Primary Care Provide r Encounter Details Date Type Department Care Team (Late st Contact Info) Description 12/21/2020 Procedure [facility] [address] [place] [address] Social History Tobacco Use Types Packs/Day Years [...] AM EDT Trey Cardona i, RN * Kidder Suicide Severity Rating Scale (Screener/Recent Self-Report) Question [...] Description 03/11/2025 1:00 PM EST Office Visit [facility] Rheumatology [address] [place] [address] Irina Looney, DO [address] [facility], [address] [place] [address] documented as of this encounter Visit Diagnoses [...] documented as of this encounter Care Teams Patient Care Relationship Specialty Start Date End Date James Trimble MD [address] [place] [address] [address] [place] [phone] PCP - General 03/16/17 documented as of this encounter Additional Source Comments The information contained in this document represents components of the legal health record. It is not the complete legal health record.[facility]
--- OUTSIDE RECORDS SUMMARY | 2025-02-12 11:32 | XMS_ITS | Encounter Summary ---
Author Organization [employer] Address [address] [facility] [address] [place] [address] Care Team Providers Care Manager Ent Name Role Phone James Flores MD Primary Care Provide r Reason for Visit * Reason Comments Med Refill Encounter Details Date Type Department Care Team ([facility] st Contact Info) Description 03/12/2023 Refill [facility] [address] [place] [address] James Flores MD [address] [place] [address] Chronic anemia Social History Tobacco Use Types [...] t he electric, gas, oil or water [employer] threatened to shut off services in your [...] anemia documented in this encounter Care Teams Manager Ent Relationship Specialty Start Date End Date James Flores MD [address] [place] [phone] PCP - General Internal Medicine 02/04/14 documented as of this encounter
--- OUTSIDE RECORDS SUMMARY | 2025-02-12 11:32 | XMS_ITS | Clinical Summary ---
Author Organization [address] [facility] Address [address] [place] [phone] Phone Care Team Providers Care Master Automotive Glass Technician Name Role Phone Ruchi Ayala MD Primary [...] AM EDT Office Visit Orthopedic Surgery - [place] [address] [facility] [address] [place] [phone] Nii Frias DPM Pain (Primary Dx); Closed nondisplaced fracture of proximal phalanx of lesser toe of left foot with delayed healing, subsequent encounter from Last 3 Months Social History Tobacco Use Types Packs/Day Years Used Date Smoking Tobacco: Never Assessed Comments Unknown Sex and Gender Information Value Date Recorded Sex Assigned at Not on file Legal Sex Female 12:51 PM EST Gender Identity Not on file Sexual Orientation Not on file Plan of Treatment Health Maintenance Due Date [...] for closed fracture from Last 3 Months Results * XR Foot 3+ Views Left (12/24/2024 9:46 AM EDT) Anatomical Region Laterality Modality Lower [...] ID:[id number] Group ID:[id number] Type:Not on file Address: [facility] [place] [phone] Care Teams Master Automotive Glass Technician Relationship Specialty Start Date End Date Ruchi Ayala MD [address] [phone] PCP - General Internal Medicine 11/05/24
== END 2025-02-12 10:53 | disposition home or self-care (01) ==
LOC: HO.ENCR 10:07
PROVIDERS: PCP Internal Medicine; Visit Provider Internal Medicine
DX: E11.65 Type 2 diabetes mellitus with hyperglycemia (principal); Z79.4 Long term (current) use of insulin

== ENCOUNTER → 2025-02-12 10:06 | Outpatient (BNVA) | payer MEDICARE, SELFPAY | PROVIDERS: PCP Internal Medicine; Visit Provider Internal Medicine | DX: E11.65 Type 2 diabetes mellitus with hyperglycemia (principal); Z79.4 Long term (current) use of insulin | CPT/HCPCS: 82947; 83036; 99212 ==

== ENCOUNTER 2025-02-14 08:17 | Emergency (ER) | payer OTHER, SELFPAY ==
[2025-02-14 08:22] VITALS: BP 152/67; PULSE 80; RESP 18; TEMP 36.1; O2SAT 98; BMI 34.4
--- NOTE | 2025-02-14 08:38 | ED.GENADULT ---
HPI - General Adult General Chief complaint: Back Pain/Injury Stated complaint: leg issues Time Seen by Provider: 02/14/25 08:31 Source: patient Mode of arrival: ambulatory Limitations: no limitations History of Present Illness ED Provider: ESTIVEN Neil HPI narrative: Chief Complaint: ?My lower back hurts and the pain shoots down my left leg.? History of Present Illness: 69-year-old female with a history of diabetic nephropathy, chronic kidney disease, diabetes, tubular adenoma, GERD, non-rheumatic aortic stenosis, hyperlipidemia, hypertension, and chronic constipation presents with left lower back pain radiating to the lateral aspect and anterior valente of the left lower extremity. Pain began a few weeks ago, initially intermittent, but has been constant for the past three days and is rated 10/10. Symptoms are worsened by ambulation; range of motion and ambulation are difficult, and back pain intensifies with lower-extremity movement. The patient believes symptoms began after starting physical therapy for her back. She took acetaminophen this morning with minimal relief. She denies saddle anesthesia, fevers, chills, changes in urinary or bowel habits, falls or trauma, chest pain, shortness of breath, and leg swelling. Related Data Home Medications ?Medication ?Instructions ?Recorded ?Confirmed albuterol sulfate 90 mcg/actuation 2 puff inhalation Q4-6H PRN 12/24/19 11/20/24 aerosol inhaler (Ventolin HFA) Shortness Of Breath loratadine 10 mg tablet 10 mg PO QAM 07/09/20 11/20/24 pen needle, diabetic 32 gauge x #50 ea 07/09/20 11/20/24 clopidogrel 75 mg tablet 75 mg PO DAILY 01/27/21 11/20/24 amlodipine 5 mg tablet 5 mg PO DAILY 11/03/21 11/20/24 metoprolol tartrate 50 mg tablet 50 mg PO BID 11/03/21 11/20/24 ferrous sulfate 325 mg (65 mg 325 mg PO TID 01/28/22 11/20/24 iron) tablet atorvastatin 80 mg tablet 80 mg PO BEDTIME 12/25/24 insulin glargine 100 unit/mL (3 16 unit subcut BEDTIME 02/12/25 02/12/25 mL) subcutaneous pen (Lantus Solostar U-100 Insulin) Previous Rx's ?Medication ?Instructions ?Recorded lancets #200 ea 08/28/23 cholecalciferol (vitamin D3) 25 25 mcg PO QAM #90 caps 05/23/24 mcg (1,000 unit) capsule (Vitamin D3) acetaminophen 650 mg 650 mg PO Q12H PRN pain (scale 06/08/24 tablet,extended release (Tylenol score 1-3) #20 tabs Arthritis Pain) FreeStyle Collin 3 Plus Sensor #6 ea 08/01/24 (blood-glucose sensor) FreeStyle Collin 3 Plus Sensor #6 ea 08/07/24 (blood-glucose sensor) blood-glucose,drill press operator helper,cont #1 ea 08/07/24 (FreeStyle [place]lin 3 [place]) docusate sodium 100 mg capsule 200 mg (2 x 100 mg) PO BEDTIME #60 09/20/24 (Stool Softener) caps calcium 200 mg (as 2 tab PO DAILY #120 tabs 09/23/24 citrate)-vitamin D3 6.25 mcg (250 unit) tablet OneTouch Verio Flex meter #1 ea 10/07/24 (blood-glucose meter) OneTouch Verio test strips (blood #400 ea 10/07/24 sugar diagnostic) pioglitazone 30 mg tablet 30 mg PO QAM #90 tabs 10/21/24 insulin lispro 100 unit/mL See Rx Instructions subcut TID #15 11/13/24 subcutaneous pen (Humalog KwikPen mL (U-100) Insulin) Ozempic 1 mg/dose (4 mg/3 mL) 1 mg (0.75 mL) subcut QWEEK #3 mL 12/25/24 subcutaneous pen injector (semaglutide) diclofenac sodium 1 % topical gel 4 g topical QID PRN pain (scale 12/31/24 (Voltaren Arthritis Pain) score 4-6) #100 grams ezetimibe 10 mg tablet 10 mg PO QAM #90 tabs 01/01/25 calcium polycarbophil 625 mg 1,250 mg (2 x 625 mg) PO QAM #60 01/29/25 tablet (Fiber-Lax) tabs lancets 33 gauge (TRUEplus Lancets) #100 ea 02/01/25 cefuroxime axetil 250 mg tablet 250 mg PO BID 7 days #14 tabs 02/14/25 gabapentin 100 mg capsule 200 mg (2 x 100 mg) PO BEDTIME #30 02/14/25 caps tramadol 25 mg tablet 25 mg PO Q6H PRN pain #14 tabs 02/14/25 Allergies Allergy/AdvReac Type Severity Reaction Status Date / Time morphine (Morphine) Allergy Intermediate TACHYCARDIA, Verified 02/14/25 08:25 ANXIETY oxycodone (Percocet) Allergy Intermediate Palpitation Verified 02/14/25 08:25 s acetaminophen (From Percocet) Allergy Palpitation Verified 02/14/25 08:25 s prednisone (PREDNISONE) AdvReac Intermediate ANXIETY Verified 02/14/25 08:25 Review of Systems Review of Systems: Review of Systems: ? Constitutional: Denies fevers or chills. ? Musculoskeletal/Neurologic: Reports severe left lower back pain radiating to LLE; denies saddle anesthesia. ? Genitourinary: Denies changes in urinary habits. ? Gastrointestinal: Denies bowel habit changes. ? Cardiovascular/Respiratory: Denies chest pain or shortness of breath. ? Peripheral Vascular: Denies leg swelling. Yes all other systems are reviewed and are negative PMFSH Past Medical History Attestation statement: The following information was validated with the patient. Source: old records reviewed and nursing notes reviewed Medical History (Updated 02/14/25 @ 11:43 by ESTIVEN Murillo) Primary osteoarthritis of left knee Acute pain of both knees Tinea corporis Tubular adenoma Non-rheumatic aortic stenosis Hemorrhoids Diverticulosis of colon History of CVA (cerebrovascular accident) Hyperkalemia Cobalamin deficiency CKD (chronic kidney disease) Iron deficiency anemia Temporal arteritis Idiopathic peripheral neuropathy Arthritis ELLIE (obstructive sleep apnea) Obesity Abnormal Pap smear of cervix Osteoporosis Goiter Hyperparathyroidism Hypercalcemia Vitamin D deficiency HLD (hyperlipidemia) HTN (hypertension) T2DM (type 2 diabetes mellitus) On beta anurag at home Chronic constipation Diabetes Anemia GERD (gastroesophageal reflux disease) Sleep apnea Asthma CAD (coronary artery disease) Angina pectoris HTN (hypertension) Surgical History (Updated 02/12/25 @ 10:15 by SHAHEED Bains) Hx of cataract surgery Hx of heart artery stent Hx of cholecystectomy History of esophagogastroduodenoscopy (EGD) H/O colonoscopy Family History Family History Father Liver problem Mother Diabetes Obesity Social History Social History Household Members Other:: With Housing: House Alcohol intake: never Patient Tobacco Use Status: Never used Tobacco Advance Directives: No Advance Directives Information Provided: No Do you have a plan to hurt others: No Plan Current occupational status: disabled Sexual orientation: Straight/Heterosexual Gender identity: Female Physical Exam ED Exam Exam: Appearance: Alert.? Oriented X3.? No acute distress.? Head: Normocephalic, atraumatic, no step-offs or deformities Eyes: Pupils equal, round and reactive to light.? ENT: Pharynx normal.??External ears normal, TMs normal bilaterally and EAC's normal. No pain with manipulation of external ears bilaterally. No mastoid tenderness. Neck: Normal inspection.? Neck supple.? CVS: Normal heart rate and rhythm.? Pulses normal.? Respiratory: No respiratory distress.? Breath sounds normal.? Abdomen: Soft and nontender.? Skin: Skin warm and dry.? Normal skin color.? Normal skin turgor.? Extremities: No lower extremity edema.? No calf ttp. 5/5 strength to bilateral upper and lower extremities Back: No midline tenderness, no C-spine tenderness,+ limited ROM in all directions secondary to pain, + straight leg raise b/l. No saddle anesthesias. Issues w/ ambulation due to pain. No foot drop. Normal distal sensation, no CVA tenderness bilaterally. Neuro: Oriented X 3.? No motor deficit.? No sensory deficit. CN 2-12 intact Vital Signs: Vital Signs - 24 hr 02/14/25 08:22 02/14/25 09:47 02/14/25 11:21 Temperature 97 F Pulse Rate 80 78 72 Respiratory Rate 18 18 18 Blood Pressure 152/67 H 152/70 H 157/70 H Pulse Oximetry 98 96 98 Oxygen Delivery Method Room Air Room Air Room Air BMI result Body Mass Index 34.4 vss Course Reevaluation(s) Reevaluation #1: Patient reports pain still present after tramadol. P.o. gabapentin will be given and another dose of tramadol Time: 10:08 Reevaluation #2: Patient feeling a lot better. Is ambulatory. I will discharge her with 25 mg of tramadol q.6 hours PRN and will also start her on gabapentin 200 mg q.h.s. for radicular back pain. I do suspect that this is an L4-L5 radiculopathy. Based off of distribution of symptoms. Patient appears much better now. Educated patient on diagnosis and treatment plan, answered all question, patient verbalizes understanding. At this time patient will be discharged home, advised to return with new or worsening symptoms. Educated on worrisome signs and symptoms and when to return. At this time I feel comfortable discharge home. Time: 11:11 Reevaluation #3: Patient's UA reviewed there is 4+ bacteria and leukocyte esterases. No nitrates. Will start her on Ceftin 250 p.o. b.i.d. x7 days. Patient aware of this. Educated patient on diagnosis and treatment plan, answered all question, patient verbalizes understanding. At this time patient will be discharged home, advised to return with new or worsening symptoms. Educated on worrisome signs and symptoms and when to return. At this time I feel comfortable discharge home. Medications Administered Discontinued Medications Generic Name Dose Route Start Last Admin Trade Name Freq PRN Reason Stop Dose Admin Gabapentin 300 mg 02/14/25 10:06 02/14/25 10:14 Gabapentin 300 Mg Capsule PO 02/14/25 10:07 300 mg ONCE ONE Administration Lidocaine 1 patch 02/14/25 10:08 02/14/25 10:14 Lidocaine 4 % Patch Adh..Patch TRANSDERMA 02/14/25 10:09 1 patch ONCE ONE Administration Protocol Tramadol HCl 25 mg 02/14/25 08:32 02/14/25 08:39 Tramadol Hcl 50 Mg Tablet PO 02/14/25 08:33 25 mg ONCE ONE Administration Tramadol HCl 25 mg 02/14/25 10:07 02/14/25 10:14 Tramadol Hcl 50 Mg Tablet PO 02/14/25 10:08 25 mg ONCE ONE Administration Medical Decision Making Medical Decision Making MDM Narrative: 69-year-old female with acute exacerbation of left lower back pain with radicular symptoms, likely L4/L5 radiculopathy, following recent physical therapy. No red-flag findings for cauda equina or systemic illness. Problem #1: Left lower back pain with L4/L5 radiculopathy Assessment: Severe (10/10) atraumatic low back pain radiating to left lower extremity; exam and history most consistent with lumbar radiculopathy. No neurologic deficits suggestive of cord compression. Plan: Administer tramadol for pain control. No immediate imaging indicated given atraumatic presentation and absence of red-flag findings. Reassess clinical status after analgesia. Problem #2: Rule out urinary tract infection Assessment: Patient requests evaluation; currently asymptomatic for UTI but urinalysis ordered for completeness. Plan: Obtain urine sample for urinalysis. Address results when available and treat if indicated. Differential Diagnosis Differential Diagnoses: The differential diagnosis associated with the presentation includes Differential Diagnosis: Lumbar radiculopathy (most likely, as supported by history and exam) Lumbar disc herniation Lumbar spinal stenosis Musculoskeletal strain or sprain Vertebral compression fracture (less likely given atraumatic history) Diabetic neuropathy (considering history) Referred pain from hip pathology Infectious causes (e.g., epidural abscess, osteomyelitis?unlikely given lack of systemic symptoms) Malignancy (metastatic disease?less likely but should be considered in older adults) Vascular causes (e.g., spinal vascular insufficiency?rare) No signs of cord compression or cauda equina Admission/Observation Consideration of admission/observation: Escalation of care including admission/observation considered (luis carlosley ) Lab Data Labs: Lab Results 02/14/25 Range/Units 11:19 Urine Color Yellow Urine Appearance Clear Urine pH 5.5 (5.0-9.0) Ur Specific [place] 1.015 (1.005-1.025) Urine Protein 30 (1+) H (Neg-Trace) mg/dL Urine Glucose (UA) Negative (Negative) mg/dL Urine Ketones Negative (Negative) mg/dL Urine Blood Negative (Negative) Urine Nitrite Negative (Negative) Ur Leukocyte Esterase Small (1+) H (Negative) Urine RBC 0-2 (0-2) /HPF Urine WBC 11-20 H (0-5) /HPF Ur Squamous Epith Cells 3-5 (0-2) /HPF Urine Bacteria 4+ (None Seen) Hyaline Casts 0-2 (0-2) /LPF Tests considered The following testing was considered but not selected: I did consider obtaining an x-ray of the low back however atraumatic in nature no indication no red flag symptoms no indication for MRI Prescription Management I considered prescription management with: Pain Medication Discharge Plan Discharge Clinical Impression: Left lumbar radiculopathy, UTI (urinary tract infection) Patient Disposition: Home, Self-Care Instructions: Acute Low Back Pain (ED) Additional Instructions: Take your medications as prescribed. If you were prescribed antibiotics today, it is important that you take your medication to their entirety, do not skip any doses, do not finish them early. Follow-up with your primary care provider this week. Return to the emergency department with new or worsening symptoms. Such as fevers, chills, chest pain, shortness of breath, nausea, vomiting, dizziness, headache, vision changes, lethargy In case of emergency call 911 Prescriptions: New tramadol 25 mg tablet 25 mg PO Q6H PRN (Reason: pain) Qty: 14 0RF Rx Instructions: Partial fill upon request gabapentin 100 mg capsule 200 mg PO BEDTIME Qty: 30 0RF cefuroxime axetil 250 mg tablet 250 mg PO BID 7 Days Qty: 14 0RF No Action ferrous sulfate 325 mg (65 mg iron) tablet 325 mg PO TID (DME) lancets Misc See Rx Instructions .Route Qty: 200 5RF Rx Instructions: As directed cholecalciferol (vitamin D3) [Vitamin D3] 25 mcg (1,000 unit) capsule 25 mcg PO QAM Qty: 90 3RF (DME) FreeStyle Collin 3 Plus Sensor Device See Rx Instructions .Route Qty: 6 3RF Rx Instructions: every 15 days (DME) FreeStyle Collin 3 Plus Sensor Device See Rx Instructions .Route Qty: 6 3RF Rx Instructions: every 15 days (DME) FreeStyle Collin 3 [place] Misc See Rx Instructions .Route Qty: 1 0RF Rx Instructions: As directed docusate sodium [Stool Softener] 100 mg capsule 200 mg PO BEDTIME Qty: 60 5RF calcium citrate-vitamin D3 200 mg-6.25 mcg (250 unit) tablet 2 tab PO DAILY Qty: 120 3RF (DME) OneTouch Verio test strips Strip See Rx Instructions .ROUTE .COMPLEX Qty: 400 3RF Dose Instruction: TEST BLOOD SUGAR THREE OR FOUR TIMES DAILY Rx Instructions: TEST BLOOD SUGAR FOUR TIMES DAILY (DME) blood-glucose meter [OneTouch Verio Flex meter] [facility] See Rx Instructions .Route Qty: 1 0RF Rx Instructions: As directed pioglitazone 30 mg tablet 30 mg PO QAM Qty: 90 3RF Ozempic 1 mg/dose (4 mg/3 mL) pen injector 1 mg subcut QWEEK Qty: 3 3RF ezetimibe 10 mg tablet 10 mg PO QAM Qty: 90 3RF Fiber-Lax 625 mg tablet 1,250 mg PO QAM Qty: 60 3RF (DME) lancets [TRUEplus Lancets] 33 gauge misc See Rx Instructions .Route Qty: 100 11RF Rx Instructions: As directed to test blood sugar 3-4 times a day albuterol sulfate [Ventolin HFA] 90 mcg/actuation Hfa Aerosol Inhaler 2 puff INHALATION Q4-6H PRN (Reason: Shortness Of Breath) acetaminophen [Tylenol Arthritis Pain] 650 mg tablet extended release 650 mg PO Q12H PRN (Reason: pain (scale score 1-3)) Qty: 20 0RF diclofenac sodium [Voltaren Arthritis Pain] 1 % gel 4 g topical QID PRN (Reason: pain (scale score 4-6)) Qty: 100 0RF Rx Instructions: apply to single knee, ankle, foot; for foot includes sole/toes/top of foot (DME) pen needle, diabetic 32 gauge x 5/32 needle See Rx Instructions .ROUTE QID Qty: 50 Rx Instructions: As directed loratadine 10 mg tablet 10 mg PO QAM clopidogrel 75 mg tablet 75 mg PO DAILY metoprolol tartrate 50 mg tablet 50 mg PO BID amlodipine 5 mg tablet 5 mg PO DAILY Lantus Solostar U-100 Insulin 100 unit/mL (3 mL) insulin pen 16 unit subcut BEDTIME insulin lispro [Humalog KwikPen Insulin] 100 unit/mL insulin pen See Rx Instructions subcut TID Qty: 15 3RF Rx Instructions: Sliding Scale 6-16 subcutaneously with breakfast and lunch 150-200 take 6 units 201-250 take 10 units 251-300 take 12 units 301-350 take 14 units >350 take 16 units Take 2-10 units subcutaneous sliding scale with dinner 150-200 take 2 units 201-250 take 4 units 251-300 take 6 units 301-350 take 8 units >350 take 10 units atorvastatin 80 mg tablet 80 mg PO BEDTIME Referrals: Physician,Unknown J [Primary Care Provider, Medical] Print Language: Dominican
[2025-02-14 09:47] VITALS: BP 152/70; PULSE 78; RESP 18; O2SAT 96
[2025-02-14] MEDS: Lidocaine 4 % Patch ADH..PATCH 1 PATCH TRANSDERMA (10:14)
--- NOTE | 2025-02-14 11:15 | PC.NURSE ---
Patient ambulated with cane to bathroom.
[2025-02-14 11:21] VITALS: BP 157/70; PULSE 72; RESP 18; O2SAT 98
[2025-02-14 11:34] LABS: Appearance Urine Clear; Glucose Urine UA Negative (Negative); PH 5.5 (5.0-9.0); Specific Gravity - Urine 1.015 (1.005-1.025); UMIC TRIGGER UACC YES
[2025-02-14 11:36] LABS: UACC Culture Trigger YES
[2025-02-14 11:50] VITALS: BP 157/70; PULSE 72; RESP 18; TEMP 36.1; O2SAT 98
== END 2025-02-14 11:51 | disposition home or self-care (01) ==
PROVIDERS: Physician Assistant; Emergency Provider Emergency Medicine
DX: N39.0 Urinary tract infection, site not specified (principal); M54.50 Low back pain, unspecified; M54.16 Radiculopathy, lumbar region; M79.662 Pain in left lower leg; E11.9 Type 2 diabetes mellitus without complications; Z79.4 Long term (current) use of insulin; Z79.899 Other long term (current) drug therapy
CPT/HCPCS: 81001; 87086; 87088; 87186; 99283

== ENCOUNTER 2025-02-17 08:29 | Outpatient (REF) | payer OTHER, SELFPAY ==
--- NOTE | ~2025-02-17 | US_ITS ---
US RENAL DOPPLER HISTORY: Chronic kidney disease, stage 3A. Rule out renal artery stenosis. COMPARISON: US abdomen Doppler 06/28/2024. US kidney 06/16/2023. TECHNIQUE: Grayscale and color Doppler as well as spectral Doppler ultrasound examination of the kidneys was performed. Spectral Doppler examination of the aorta was also performed. RENAL MEASUREMENTS: Right: 9.4 x 3.4 x 4.5 cm (Sag x AP x TV); lobulated contour. Previously seen cysts are not well seen on today's exam. Left: 10.1 x 4.7 x 4.1 cm (Sag x AP x TV); lobulated contour. Normal sonographic appearance otherwise. No hydronephrosis. No suspicious masses. Spectral Doppler analysis: Right Kidney: -Peak systolic velocity in the proximal right renal artery = 73.1 cm/s. Normal waveforms. -Peak systolic velocity in the mid right renal artery = 120 cm/s. Normal waveforms. -Peak systolic velocity in the distal right renal artery = 115 cm/s. Normal waveforms. -Patent right renal vein. -Upper pole interlobar artery resistive index of 0.75. -Midpole interlobar artery resistive index of 0.65. -Lower pole interlobar artery resistive index of 0.61. RAR right = cannot be calculated. Left Kidney: -Peak systolic velocity in the proximal left renal artery = could not be well seen. -Peak systolic velocity in the mid left renal artery = 88.4 cm/s. Normal waveforms. -Peak systolic velocity in the distal left renal artery = 71.9 cm/s. Normal waveforms. -Patent left renal vein. -Upper pole interlobar artery resistive index of 0.66. -Mid pole interlobar artery resistive index of 0.78. -lower pole interlobar artery resistive index of 0.64. RAR left = cannot be calculated. Aorta: -Peak systolic velocity = 118 cm/s. US/US renal doppler IMPRESSION: 1. No evidence of renal artery stenosis or abnormal waveforms bilaterally on color/spectral Doppler examination (based on peak systolic velocities and resistive indices). 2. Renal artery to aorta ratios could not be calculated, as the systolic velocity of the aorta was 118 cm/s. 3. Renal parenchyma is sonographically normal. Previously seen right renal cysts are not well seen on today's exam. Electronically signed by: Terry Ray MD 02/17/2025 09:30 AM BRENNA ZUNIGA
== END 2025-02-17 08:30 | disposition home or self-care (01) ==
LOC: HO.US 08:29
PROVIDERS: PCP Internal Medicine; Visit Provider Internal Medicine Nephrology
DX: I12.9 Hypertensive chronic kidney disease with stage 1 through stage 4 chronic kidney disease, or unspecified chronic kidney disease (principal); N18.31 Chronic kidney disease, stage 3a; E11.21 Type 2 diabetes mellitus with diabetic nephropathy; E11.22 Type 2 diabetes mellitus with diabetic chronic kidney disease
CPT/HCPCS: 76775; 93975

== ENCOUNTER → 2025-02-17 08:31 | Outpatient (BNV) | payer OTHER, SELFPAY | PROVIDERS: PCP Internal Medicine; Visit Provider Radiology Diagnostic Radiology | DX: N18.31 Chronic kidney disease, stage 3a (principal) | CPT/HCPCS: 76775; 93975 ==

== ENCOUNTER 2025-02-25 14:54 | Emergency (ER) | payer OTHER, SELFPAY ==
--- NOTE | ~2025-02-25 | XR_ITS ---
EXAMINATION: XR LUMBOSACRAL SPINE CLINICAL INFORMATION: back pain COMPARISON: Previous x-ray most recent December 2024 TECHNIQUE: Three views of the lumbosacral spine. FINDINGS: Curvature of the lumbar spine to the right. Bone alignment otherwise normal. No fracture or dislocation. Degenerative disc disease and spondylosis at L5-S1. Mild degenerative spondylosis at L3-4. Lower lumbar spine facet arthritis. Mild atherosclerotic disease. XR/XR lumbar spine 2-3V IMPRESSION: Degenerative changes similar to December 2024 exam. Electronically signed by: Karina Yanez MD 02/25/2025 05:15 PM BRENNA
[2025-02-25 16:32] VITALS: BP 157/70; PULSE 73; RESP 18; TEMP 36.6; O2SAT 98; BMI 35.1
--- NOTE | 2025-02-25 16:37 | ED.GENADULT ---
HPI - General Adult General Chief complaint: Back Pain/Injury Stated complaint: leg pain Time Seen by Provider: 02/25/25 17:57 Source: patient Mode of arrival: ambulatory Limitations: no limitations History of Present Illness ED Provider: Dr. Megan Vora HPI narrative: Patient comes to the emergency room complaining of sciatica pain. Patient states that the pain radiates from her back down her left leg with sharp shooting pain. Patient denies any injuries. Denies any urinary incontinence or retention. States that she has had this issue in the past before. Related Data Home Medications ?Medication ?Instructions ?Recorded ?Confirmed albuterol sulfate 90 mcg/actuation 2 puff inhalation Q4-6H PRN 12/24/19 11/20/24 aerosol inhaler (Ventolin HFA) Shortness Of Breath loratadine 10 mg tablet 10 mg PO QAM 07/09/20 11/20/24 pen needle, diabetic 32 gauge x #50 ea 07/09/20 11/20/24 clopidogrel 75 mg tablet 75 mg PO DAILY 01/27/21 11/20/24 amlodipine 5 mg tablet 5 mg PO DAILY 11/03/21 11/20/24 metoprolol tartrate 50 mg tablet 50 mg PO BID 11/03/21 11/20/24 ferrous sulfate 325 mg (65 mg 325 mg PO TID 01/28/22 11/20/24 iron) tablet atorvastatin 80 mg tablet 80 mg PO BEDTIME 12/25/24 insulin glargine 100 unit/mL (3 16 unit subcut BEDTIME 02/12/25 02/12/25 mL) subcutaneous pen (Lantus Solostar U-100 Insulin) Previous Rx's ?Medication ?Instructions ?Recorded lancets #200 ea 08/28/23 cholecalciferol (vitamin D3) 25 25 mcg PO QAM #90 caps 05/23/24 mcg (1,000 unit) capsule (Vitamin D3) acetaminophen 650 mg 650 mg PO Q12H PRN pain (scale 06/08/24 tablet,extended release (Tylenol score 1-3) #20 tabs Arthritis Pain) FreeStyle Collin 3 Plus Sensor #6 ea 08/01/24 (blood-glucose sensor) FreeStyle Collin 3 Plus Sensor #6 ea 08/07/24 (blood-glucose sensor) blood-glucose,fire chief's aide,cont #1 ea 08/07/24 (FreeStyle Collin 3 [place]) docusate sodium 100 mg capsule 200 mg (2 x 100 mg) PO BEDTIME #60 09/20/24 (Stool Softener) caps calcium 200 mg (as 2 tab PO DAILY #120 tabs 09/23/24 citrate)-vitamin D3 6.25 mcg (250 unit) tablet OneTouch Verio Flex meter #1 ea 10/07/24 (blood-glucose meter) OneTouch Verio test strips (blood #400 ea 10/07/24 sugar diagnostic) pioglitazone 30 mg tablet 30 mg PO QAM #90 tabs 10/21/24 insulin lispro 100 unit/mL See Rx Instructions subcut TID #15 11/13/24 subcutaneous pen (Humalog KwikPen mL (U-100) Insulin) Ozempic 1 mg/dose (4 mg/3 mL) 1 mg (0.75 mL) subcut QWEEK #3 mL 12/25/24 subcutaneous pen injector (semaglutide) diclofenac sodium 1 % topical gel 4 g topical QID PRN pain (scale 12/31/24 (Voltaren Arthritis Pain) score 4-6) #100 grams ezetimibe 10 mg tablet 10 mg PO QAM #90 tabs 01/01/25 calcium polycarbophil 625 mg 1,250 mg (2 x 625 mg) PO QAM #60 01/29/25 tablet (Fiber-Lax) tabs lancets 33 gauge (TRUEplus Lancets) #100 ea 02/01/25 cefuroxime axetil 250 mg tablet 250 mg PO BID 7 days #14 tabs 02/14/25 gabapentin 100 mg capsule 200 mg (2 x 100 mg) PO BEDTIME #30 02/14/25 caps tramadol 25 mg tablet 25 mg PO Q6H PRN pain #14 tabs 02/14/25 gabapentin 300 mg capsule 300 mg PO BID #60 caps 02/25/25 Allergies Allergy/AdvReac Type Severity Reaction Status Date / Time morphine (Morphine) Allergy Intermediate TACHYCARDIA, Verified 02/25/25 16:34 ANXIETY oxycodone (Percocet) Allergy Intermediate Palpitation Verified 02/25/25 16:34 s acetaminophen (From Percocet) Allergy Palpitation Verified 02/25/25 16:34 s prednisone (PREDNISONE) AdvReac Intermediate ANXIETY Verified 02/25/25 16:34 Review of Systems Review of Systems: Constitutional : No Weight loss, No Fever, No Chills, No Night Sweats, No Fatigue, No Malaise ENT/Mouth : No Hearing loss, No Ear Pain, No Nasal Congestion, No Sinus Pain, No Hoarseness, No sore throat, No Rhinorrhea, No Swallowing Difficulty Eyes: No Eye Pain, No Swelling, No Redness, No Foreign Body, No Discharge, No Vision Changes Cardiovascular : No Chest Pain, No SOB, No Dyspnea on Exertion, No Orthopnea, No Edema, No Palpitations Respiratory : No Cough, No Sputum, No Wheezing, No Smoke Exposure, No Dyspnea Gastrointestinal : No Nausea, No Vomiting, No Diarrhea, No Constipation, No abdominal Pain, No Hematochezia, No Melena Genitourinary : no irregular bleeding, No Dysuria, No Urinary Frequency, No Hematuria, No Urinary Incontinence, No Urgency, No Flank Pain, No Urinary Flow Changes, No Hesitancy Musculoskeletal : Complaining of sharp shooting pain from the lower back down the left leg, No joint pain, No Myalgias, No Joint Swelling Skin : No Skin Lesions, No rash Neuro : No Weakness, No Numbness, No Paresthesias, No Loss of Consciousness, No Dizziness, No Headache Psych : No Anxiety/Panic, No Depression, No SI/HI/AH/VH, No Social Issues, Heme/Lymph: No Bruising, No Bleeding,No Lymphadenopathy Endocrine : No Polyuria, No Polydipsia, No Temperature Intolerance [facility] Past Medical History Medical History Primary osteoarthritis of left knee Acute pain of both knees Tinea corporis Tubular adenoma Non-rheumatic aortic stenosis Hemorrhoids Diverticulosis of colon History of CVA (cerebrovascular accident) Hyperkalemia Cobalamin deficiency CKD (chronic kidney disease) Iron deficiency anemia Temporal arteritis Idiopathic peripheral neuropathy Arthritis ELLIE (obstructive sleep apnea) Obesity Abnormal Pap smear of cervix Osteoporosis Goiter Hyperparathyroidism Hypercalcemia Vitamin D deficiency HLD (hyperlipidemia) HTN (hypertension) T2DM (type 2 diabetes mellitus) On beta anurag at home Chronic constipation Diabetes Anemia GERD (gastroesophageal reflux disease) Sleep apnea Asthma CAD (coronary artery disease) Angina pectoris HTN (hypertension) Surgical History (Updated 02/12/25 @ 10:15 by SHAHEED Bains) Hx of cataract surgery Hx of heart artery stent Hx of cholecystectomy History of esophagogastroduodenoscopy (EGD) H/O colonoscopy Family History Family History Father Liver problem Mother Diabetes Obesity Social History Social History Household Members Other:: With Housing: House Alcohol intake: never Patient Tobacco Use Status: Never used Tobacco Advance Directives: No Advance Directives Information Provided: No Do you have a plan to hurt others: No Plan Current occupational status: disabled Sexual orientation: Straight/Heterosexual Gender identity: Female Physical Exam ED Exam Exam: Appearance: Alert. Oriented X3. No acute distress. Eyes: Pupils equal, round and reactive to light. ENT: Pharynx normal. Neck: Normal inspection. Neck supple. No lymph nodes noted. No crepitus CVS: Normal heart rate and rhythm. Pulses normal. Normal S1 and S2 Respiratory: No respiratory distress. Breath sounds normal. No Wheezing. No rales Abdomen: Soft and nontender. No rigidity. No distention. Skin: Skin warm and dry. Normal skin color. Normal skin turgor. Extremities: No lower extremity edema. No Lacerations. No Rash back: No pain to palpation in the thoracic or lumbar spine. reproducible pain with hip flexion on the left side Neuro: Oriented X 3. No motor deficit. No sensory deficit. Moving all extremities. No slurred speech. CN 2 through 12 grossly intact Psych: calm, cooperative, normal affect Vital Signs: Vital Signs - 24 hr 02/25/25 16:32 02/25/25 18:43 02/25/25 18:44 Temperature 98 F 97.9 F 97.9 F Pulse Rate 73 74 74 Respiratory Rate 18 18 18 Blood Pressure 157/70 H 164/72 H 164/72 H Pulse Oximetry 98 99 99 Oxygen Delivery Method Room Air Room Air Room Air BMI result Body Mass Index 35.1 Course Course Course Narrative: SHARON: 69-year-old female presents in his back pain radiating down left leg without any trauma. Patient denies any urinary/bowel incontinence. Patient denies any nausea vomiting abdominal pain lumbar spine x-ray ordered Medications Administered Discontinued Medications Generic Name Dose Route Start Last Admin Trade Name Freq PRN Reason Stop Dose Admin Dexamethasone Sodium Phosphate 4 mg 02/25/25 18:17 02/25/25 18:37 Dexamethasone Sod Phosphate 4 Mg/Ml Vial IM 02/25/25 18:18 4 mg ONCE ONE Administration Hydromorphone HCl 0.5 mg 02/25/25 18:17 02/25/25 18:37 Hydromorphone Hcl 0.5 Mg/0.5 Ml Syringe IM 02/25/25 18:18 0.5 mg ONCE ONE Administration Protocol Medical Decision Making Medical Decision Making MDM Narrative: x-rays of the back did not show any acute abnormality, only chronic changes. I discussed with the patient that she may eventually need physical therapy. Also, if physical therapy is not beneficial for her, she may need an MRI and a referral to neurosurgery. For symptomatic treatment, patient was given IM Decadron and Dilaudid patient agrees with plan Discharge Plan Discharge Clinical Impression: Back pain with sciatica Patient Disposition: Home, Self-Care Instructions: Sciatica (ED) Additional Instructions: increase gabapentin to 300 mg twice a day. Please follow-up with your primary care physician tomorrow. If you have any worsening or new symptoms, please return to the emergency room or call 911 Prescriptions: New gabapentin 300 mg capsule 300 mg PO BID Qty: 60 0RF No Action ferrous sulfate 325 mg (65 mg iron) tablet 325 mg PO TID (DME) lancets Misc See Rx Instructions .Route Qty: 200 5RF Rx Instructions: As directed cholecalciferol (vitamin D3) [Vitamin D3] 25 mcg (1,000 unit) capsule 25 mcg PO QAM Qty: 90 3RF (DME) FreeStyle Collin 3 Plus Sensor Device See Rx Instructions .Route Qty: 6 3RF Rx Instructions: every 15 days (DME) FreeStyle Collin 3 Plus Sensor Device See Rx Instructions .Route Qty: 6 3RF Rx Instructions: every 15 days (DME) FreeStyle Collin 3 [place] Misc See Rx Instructions .Route Qty: 1 0RF Rx Instructions: As directed docusate sodium [Stool Softener] 100 mg capsule 200 mg PO BEDTIME Qty: 60 5RF calcium citrate-vitamin D3 200 mg-6.25 mcg (250 unit) tablet 2 tab PO DAILY Qty: 120 3RF (DME) OneTouch Verio test strips Strip See Rx Instructions .ROUTE .COMPLEX Qty: 400 3RF Dose Instruction: TEST BLOOD SUGAR THREE OR FOUR TIMES DAILY Rx Instructions: TEST BLOOD SUGAR FOUR TIMES DAILY (DME) blood-glucose meter [OneTouch Verio Flex meter] Misc See Rx Instructions .Route Qty: 1 0RF Rx Instructions: As directed pioglitazone 30 mg tablet 30 mg PO QAM Qty: 90 3RF Ozempic 1 mg/dose (4 mg/3 mL) pen injector 1 mg subcut QWEEK Qty: 3 3RF ezetimibe 10 mg tablet 10 mg PO QAM Qty: 90 3RF Fiber-Lax 625 mg tablet 1,250 mg PO QAM Qty: 60 3RF (DME) lancets [TRUEplus Lancets] 33 gauge misc See Rx Instructions .Route Qty: 100 11RF Rx Instructions: As directed to test blood sugar 3-4 times a day albuterol sulfate [Ventolin HFA] 90 mcg/actuation Hfa Aerosol Inhaler 2 puff INHALATION Q4-6H PRN (Reason: Shortness Of Breath) acetaminophen [Tylenol Arthritis Pain] 650 mg tablet extended release 650 mg PO Q12H PRN (Reason: pain (scale score 1-3)) Qty: 20 0RF diclofenac sodium [Voltaren Arthritis Pain] 1 % gel 4 g topical QID PRN (Reason: pain (scale score 4-6)) Qty: 100 0RF Rx Instructions: apply to single knee, ankle, foot; for foot includes sole/toes/top of foot tramadol 25 mg tablet 25 mg PO Q6H PRN (Reason: pain) Qty: 14 0RF Rx Instructions: Partial fill upon request gabapentin 100 mg capsule 200 mg PO BEDTIME Qty: 30 0RF cefuroxime axetil 250 mg tablet 250 mg PO BID 7 Days Qty: 14 0RF (DME) pen needle, diabetic 32 gauge x 5/32 needle See Rx Instructions .ROUTE QID Qty: 50 Rx Instructions: As directed loratadine 10 mg tablet 10 mg PO QAM clopidogrel 75 mg tablet 75 mg PO DAILY metoprolol tartrate 50 mg tablet 50 mg PO BID amlodipine 5 mg tablet 5 mg PO DAILY Lantus Solostar U-100 Insulin 100 unit/mL (3 mL) insulin pen 16 unit subcut BEDTIME insulin lispro [Humalog KwikPen Insulin] 100 unit/mL insulin pen See Rx Instructions subcut TID Qty: 15 3RF Rx Instructions: Sliding Scale 6-16 subcutaneously with breakfast and lunch 150-200 take 6 units 201-250 take 10 units 251-300 take 12 units 301-350 take 14 units >350 take 16 units Take 2-10 units subcutaneous sliding scale with dinner 150-200 take 2 units 201-250 take 4 units 251-300 take 6 units 301-350 take 8 units >350 take 10 units atorvastatin 80 mg tablet 80 mg PO BEDTIME Interventions: ED Discharge Assessment Last Done: 02/25/25 18:44 Discharge Date/Time: 02/25/25 18:48 Print Language: Sinhala
[2025-02-25 18:43] VITALS: BP 164/72; PULSE 74; RESP 18; TEMP 36.6; O2SAT 99
[2025-02-25 18:44] VITALS: BP 164/72; PULSE 74; RESP 18; TEMP 36.6; O2SAT 99
--- OUTSIDE RECORDS SUMMARY | 2025-02-25 20:23 | XMS_ITS | Encounter Summary ---
Author Organization [employer] Address [address] [facility] [address] [place] [address] Care Team Providers Care Nerve Specialist Name Role Phone James Flores MD Primary Care Provide r Encounter Details Date Type Department Care Team (Late st Contact Info) Description 06/14/[address] [facility] [address] [place] [address] Jaja Hammond LPN Social History Tobacco Use [...] on filedocumented in this encounter Care Teams Nerve Specialist Relationship Specialty Start Date End Date James Flores MD [address] [place] [address] PCP - General Internal Medicine 02/04/14 documented as of this encounter
--- OUTSIDE RECORDS SUMMARY | 2025-02-25 20:23 | XMS_ITS | Encounter Summary ---
Author Organization [facility] Address [address] [facility] [address] [place] [address] Phone Care Team Providers Care Hospice Administrator Name Role Phone James Trimble MD Primary Care Provide r Encounter Details Date Type Department Care Team (Late st Contact Info) Description 12/20/2020 Procedure Pass [facility], [address] [address] Social History Tobacco Use Types Packs/Day Years [...] AM EDT Trey Cardona i, RN * [place] Suicide Severity Rating Scale (Screener/Recent Self-Report) Question [...] Description 03/11/2025 1:00 PM EST Office Visit [facility] [address] [place] [address] Irina Looney, DO [address] [facility], [address] [place] [address] [email or web address] [email or web address] Nelson [address] [place] [address] [email or web address] documented as of this encounter Visit Diagnoses [...] documented as of this encounter Care Teams Hospice Administrator Relationship Specialty Start Date End Date James Trimble MD [address] [place] [address] [address] [place] [id number] PCP - General 03/16/17 documented as of this encounter Additional Source Comments The information contained in this document represents components of the legal health record. It is not the complete legal health record.[facility]
--- OUTSIDE RECORDS SUMMARY | 2025-02-25 20:23 | XMS_ITS | Encounter Summary ---
Author Organization [employer] Address [address] [facility] [address] [place] [address] Care Team Providers Care Tar Heater Operator Name Role Phone James Flores MD Primary Care Provide r Reason for Visit * Reason Comments Med Refill Encounter Details Date Type Department Care Team ([facility] st Contact Info) Description 03/12/2023 Refill [facility] MED[facility] [address] [place] [address] James Flores MD [address] [place] [address] Chronic anemia Social History Tobacco Use Types [...] t he electric, gas, oil or water [employer] threatened to shut off services in [...] anemia documented in this encounter Care Teams Tar Heater Operator Relationship Specialty Start Date End Date James Flores MD [address] [place] [id number] PCP - General Internal Medicine 02/04/14 documented as of this encounter
--- OUTSIDE RECORDS SUMMARY | 2025-02-25 20:23 | XMS_ITS | Encounter Summary ---
Author Organization [employer] Address [address] [facility] 7t [place] [address] Care Team Providers Care Social Welfare Research Worker Name Role Phone James Flores MD Primary Care Provide r Encounter Details Date Type Department Care Team ([facility] st Contact Info) Description 03/14/2023 Telephone [facility] [address] [place] [address] Adriana Odell MA Social History Tobacco Use [...] on filedocumented in this encounter Care Teams Social Welfare Research Worker Relationship Specialty Start Date End Date James Flores MD [address] [place] [id number] PCP - General Internal Medicine 02/04/14 documented as of this encounter
--- OUTSIDE RECORDS SUMMARY | 2025-02-25 20:23 | XMS_ITS | Patient Health Record ---
Author Organization [facility] Address [address] [place] [address] Care Team Providers Care Lieutenant Fire Fighter Name Role Phone Rudy Ashraf MD, James Primary Care Provide r Unavailable Moris Duron Jr Unavailable Reason For Referral No Information Plan Of Treatment No Information Insurance Providers Payer Name Payer Address Payer Phone Subscriber Number Group Number Insured Name Patient Relationship to Insured Coverage Start Date Coverage End Date MEDICARE OF [place] [address] [place] [id number] STEPHANI JOE Self - patient is the insured MEDICAID OF [facility] [address] [place] [address] [id number] STEPHANI JOE Self - patient is the insured
--- OUTSIDE RECORDS SUMMARY | 2025-02-25 20:23 | XMS_ITS | Encounter Summary ---
Author Organization [facility] Address [address] [facility] [address] [place] [address] Phone Care Team Providers Care Roadway Technician Name Role Phone James Trimble MD Primary Care Provide r Encounter Details Date Type Department Care Team (Late st Contact Info) Description 01/25/2021 Procedure Pass [facility], Ct Scan - [address] [address] Social History Tobacco Use Types Packs/Day Years [...] 01/25/2021 12:53 PM Corinne Rodriguez, LISA * [place] Suicide Severity Rating Scale (Screener/Recent Self-Report) Question [...] Description 03/11/2025 1:00 PM EST Office Visit [facility] [address] [place] [address] Irina Looney, [address] [facility], [address] [place] [address] [email or web address] [address] [place] [address] [email or web address] documented as of this encounter Visit Diagnoses [...] documented as of this encounter Care Teams Roadway Technician Relationship Specialty Start Date End Date James Trimble MD [address] [facility] [address] [place] [address] PCP - General 03/16/17 documented as of this encounter Additional Source Comments The information contained in this document represents components of the legal health record. It is not the complete legal health record.[facility]
--- OUTSIDE RECORDS SUMMARY | 2025-02-25 20:23 | XMS_ITS | Encounter Summary ---
Author Organization [facility] Address [address] [facility] [address] [place] [address] Phone Care Team Providers Care Back Shoe Worker Name Role Phone James Trimble MD Primary Care Provide r Encounter Details Date Type Department Care Team (Late st Contact Info) Description 12/20/2020 Procedure Pass [facility], Ct Scan - [address] [address] Social History Tobacco Use Types Packs/Day Years [...] AM EDT Trey Cardona i, RN * [place] Suicide Severity Rating Scale (Screener/Recent Self-Report) Question [...] Description 03/11/2025 1:00 PM EST Office Visit [facility] [address] [place] [address] Irina Looney, DO [address] [facility], [address] [place] [address] [email or web address] [email or web address] Nelson [address] [place] [address] documented as of this encounter Visit Diagnoses [...] as of this encounter Care Teams Back Shoe Worker Relationship Specialty Start Date End Date James Trimble MD [address] [place] [address] [place] [address] PCP - General 03/16/17 documented as of this encounter Additional Source Comments The information contained in this document represents components of the legal health record. It is not the complete legal health record.[facility]
--- OUTSIDE RECORDS SUMMARY | 2025-02-25 20:23 | XMS_ITS | Encounter Summary ---
Author Organization [employer] Address [address] [facility] [address] [place] [address] Care Team Providers Care Coal Pipeline Operator Name Role Phone James Flores MD Primary Care Provide r Reason for Visit * Reason Onset Date Comments Derm appointment 02/20/2025 Encounter Details Date Type Department Care Team (Late st Contact Info) Description 02/20/2025 Telephone [facility] [address] [place] [address] James Flores MD [address] [place] [address] Derm appointment Social History Tobacco Use Types Packs/Day Years [...] encounter Miscellaneous Notes * Telephone Encounter - Spring Preciado [place] - 02/20/2025 1:29 PM EST Esthela luna called pt to schedule a derm appointment . Richard will also send a letter. documented in this encounter Plan of Treatment Not on file documented as of this encounter Goals Goal Patient Goal Type Associated Problems Recent Progress Patient-Stated? Author Help patients manage their type 2 diabetes Care Plan Help patients manage their type 2 diabetes Spring Owens [place] Weekly blood pressure task Care Plan Weekly blood pressure task No Spring Preciado [place] Help patients manage their type 2 diabetes Care Plan Help patients manage their type 2 diabetes Spring Owens [place] Patient has chronic kidney disease Care Plan Patient has chronic kidney disease Spring Owens [place] Weekly blood pressure task Care Plan Weekly blood pressure task Spring Owens [place] Patient has chronic kidney disease Care Plan Patient has chronic kidney disease Spring Owens [place] documented as of this encounter Visit Diagnoses Not on filedocumented in this encounter Additional Health Concerns Active Problems Noted Date Diagnosed Date Help patients manage their type 2 diabetes 02/20 Weekly blood pressure task 02/20/2025 Help patients manage their type 2 diabetes 02/20 Patient has chronic kidney disease 02/20/2025 Weekly blood pressure task 02/20/2025 Patient has chronic kidney disease 02/20/2025 Assessment Noted Time PHQ-9 Depression Total Score: 0 01/30/20 24 10:37 AM EST documented as of this encounter Care Teams Coal Pipeline Operator Relationship Specialty Start Date End Date James Flores MD [address] [place] [address] PCP - General Internal Medicine 02/04/14 documented as of this encounter
--- OUTSIDE RECORDS SUMMARY | 2025-02-25 20:23 | XMS_ITS | Encounter Summary ---
Author Organization [email or web address] Address [address] 7t [place] [address] Care Team Providers Care Online Advertising Director Name Role Phone James Flores MD Primary Care Provide r Encounter Details Date Type Department Care Team (Late st Contact Info) Description 02/25/2025 Orders Only [facility] External Provider, [facility] Social History Tobacco Use Types Packs/Day Years [...] task Care Plan Weekly blood pressure task pSring Owens [place] Help patients manage their type 2 diabetes Care Plan Help patients manage their type 2 diabetes Spring Owens [place] Patient has chronic kidney disease Care Plan Patient has chronic kidney disease Spring Owens [place] Weekly blood pressure task Care Plan Weekly blood pressure task Spring Owens [place] Patient has chronic kidney disease Care Plan Patient has chronic kidney disease No Spring Preciado [place] documented as of this encounter Procedures Procedure Name Priority Date/Time Associated Diagnosis Comments XR LUMBAR SPINE 2-3 VIEWS Routine 02/25/2025 4:55 PM EST documented in this encounter Results * XR Lumbar Spine 2-3 Views (02/25/2025 4:55 PM EST) Anatomical Region Laterality Modality Spine, L-spine Radiographic Rena ging 02/25/2025 4:55 PM EST Narrative 02/25/2025 5:17 PM EST [address] [address] XRay Report Signed Patient: Jayne Lane MR#: [id number] : 1955 Acct:[id number] Age/Sex: 69 / F ADM Date: 02/25/25 Loc: HO.ED Attending Dr: Ordering Physician: Domingo Elkins Date of Service: 02/25/25 Procedure(s): XR lumbar spine 2-3V Accession Number(s): [id number] cc: Domingo Elkins; James Trimble MD Reason for Exam: back pain EXAMINATION: XR LUMBOSACRAL SPINE CLINICAL INFORMATION: back pain COMPARISON: Previous x-ray most recent December 2024 TECHNIQUE: Three views of the lumbosacral spine. FINDINGS: Curvature of the lumbar spine to the right. Bone alignment otherwise normal. No fracture or dislocation. Degenerative disc disease and spondylosis at L5-S1. Mild degenerative spondylosis at L3-4. Lower lumbar spine facet arthritis. Mild atherosclerotic disease. XR/XR lumbar spine 2-3V IMPRESSION: Degenerative changes similar to December 2024 exam. Electronically signed by: Karina Yanez MD 02/25/2025 05:15 PM [facility] Dictated By: Karina Yanez MD Signed By: <Electronically signed by Karina Yanez MD in OV> 02/25/25 1715 DD/ 1655 TD/TT: 02/25/25 1700 Tree Trimmer Helper: BHANU Procedure Note Donotuseinterpreter, Image - 02/25/2025 [place] [address] XRay Report Signed Patient: Olivia Lane#: [id number] : 6Acct:[id number] Age/Sex: 69 / FADM Date: 02/25/25 Loc: HO.ED Attending Dr: Ordering Physician: Domingo Elkins Date of Service: 02/25/25 Procedure(s): XR lumbar spine 2-3V Accession Number(s): [id number] cc: Domingo Elkins; James Trimble MD Reason for Exam: back pain EXAMINATION: XR LUMBOSACRAL SPINE CLINICAL INFORMATION: back pain COMPARISON: Previous x-ray most recent December 2024 TECHNIQUE: Three views of the lumbosacral spine. FINDINGS: Curvature of the lumbar spine to the right. Bone alignment otherwise normal. No fracture or dislocation. Degenerative disc disease and spondylosis at L5-S1. Mild degenerative spondylosis at L3-4. Lower lumbar spine facet arthritis. Mild atherosclerotic disease. XR/XR lumbar spine 2-3V IMPRESSION: Degenerative changes similar to December 2024 exam. Electronically signed by: Karina Yanez MD 02/25/2025 05:15 PM EST RP Dictated By: Karina Yanez MD Signed By: <Electronically signed by Karina Yanez MD in OV> 02/25/25 1715 DD/ 54 TD/TT: 02/25/25 170 Tree Trimmer Helper: BHANU [facility] External Provider IMG XR PROCEDURES Edited [...] documented as of this encounter Care Teams Online Advertising Director Relationship Specialty Start Date End Date James Flores MD [address] [place] [address] PCP - General Internal Medicine 02/04/14 documented as of this encounter
--- OUTSIDE RECORDS SUMMARY | 2025-02-25 20:23 | XMS_ITS | Encounter Summary ---
Author Organization [facility] Address [address] [place] [address] Phone Care Team Providers Care R&D Lab Technician Name Role Phone James Trimble MD Primary Care Provide r Encounter Details Date Type Department Care Team (Late st Contact Info) Description 12/21/2020 Procedure [facility] [address] [place] [address] Social History Tobacco Use Types Packs/Day Years [...] AM EDT Trey Cardona i, RN * [place] Suicide Severity Rating Scale (Screener/Recent Self-Report) Question [...] Description 03/11/2025 1:00 PM EST Office Visit [facility] [address] [place] [address] Irina Looney, DO [address] [facility], [address] [place] [address] [email or web address] Nelson [address] [place] [address] [email or web address] documented as of this encounter Visit Diagnoses [...] documented as of this encounter Care Teams R&D Lab Technician Relationship Specialty Start Date End Date James Trimble MD [address] [facility] [address] [place] [phone] PCP - General 03/16/17 documented as of this encounter Additional Source Comments The information contained in this document represents components of the legal health record. It is not the complete legal health record.[facility]
--- OUTSIDE RECORDS SUMMARY | 2025-02-25 20:23 | XMS_ITS | Encounter Summary ---
Author Organization [employer] Address [address] [facility] 7[address] [place] [address] Care Team Providers Care Building Manager Name Role Phone James Flores MD Primary Care Provide r Reason for Visit * Reason Comments Med Refill Encounter Details Date Type Department Care Team (Late st Contact Info) Description 08/21/2022 Refill [facility] [address] [place], [place] [phone] James Flores MD [address] [place], [place] [phone] Social History Tobacco Use Types Packs/Day Years [...] on filedocumented in this encounter Care Teams Building Manager Relationship Specialty Start Date End Date James Flores MD [address] [place], [place] [phone] PCP - General Internal Medicine 02/04/14 documented as of this encounter
--- OUTSIDE RECORDS SUMMARY | 2025-02-25 20:23 | XMS_ITS | Encounter Summary ---
Author Organization [employer] Address [address] [facility] 7t [place] [address] Care Team Providers Care Tack Cutter Name Role Phone James Flores MD Primary Care Provide r Reason for Visit * Reason Onset Date Comments Call Back Request 08/07/2024 Appointment Request 08/07/2024 Encounter Details Date Type Department Care Team ([facility] st Contact Info) Description 08/07/2024 Telephone [facility] MED[facility]INE [address] [place] [address] James Flores MD [address] [place] [address] Call Back Request; Appointment Request Social History [...] request for telehealth visit Please return call [phone] documented in this encounter Plan of Treatment Not on file documented as of this encounter Visit Diagnoses Not on filedocumented in this encounter Additional Health Concerns Assessment Noted Time PHQ-9 Depression Total Score: 0 01/30/20 24 10:37 AM EST documented as of this encounter Care Teams Tack Cutter Relationship Specialty Start Date End Date James Flores MD [address] [place] [address] PCP - General Internal Medicine 02/04/14 documented as of this encounter
--- OUTSIDE RECORDS SUMMARY | 2025-02-25 20:23 | XMS_ITS | Clinical Summary ---
Author Organization [facility] Address [address] [place] [address] Phone Care Team Providers Care Depositing Machine Operator Name Role Phone James Trimble MD [...] Active ferrous sulfate 325 mg (65 mg yurok iron) tablet Take 325 mg by mouth [...] nebulizer at home does not see a student ministries director. Considering home neb. ? Having difficulty using [...] Description 03/11/2025 1:00 PM EST Office Visit [facility] [address] [place] [address] Irina Looney DO [address] [facility], [address] [place] [address] [email or web address] [email or web address] Nelson [address] [place] [address] Health Maintenance Due Date Last Done Comments [...] 01/09/2021 01/09/2019, 12/27/2017 INFLUENZA VACCINE (#1) 2024 1, 12/04/2019, 12/19/2017, Additional history exists COVID-19 VACCINE ( - 2024- season) 2024 08/31/2020, 08/01/2020 LIPID PANEL 02/04/2025 [...] (12/21/2020 6:13 AM EDT) HDL 49 mg/dL [facility] Comment: Interpretation <40 mg/dL: Low HDL cholesterol (major risk factor for CHD) Greater than or equal to 60 mg/dL: High HDL cholesterol ( negative risk factor for CHD) HDL - cholesterol is affected by a number of factors, e.g. smoking, excerise, hormones, sex and age. CHOLESTEROL 160 0 - 240 mg/dL [facility] TRIGLYCERIDES 109 30 - 160 mg/dL [facility] LDL 89 50 - 129 mg/dL [facility] Comment: LDL levels in terms of risk for coronary heart disease: <100 mg/dL: Optimal 100-129 mg/dL: Near or above optimal 130-159 mg/dL: Borderline high 160-189 mg/dL: High >190 mg/dL: Very High CARDIAC RISK RATIO 3.3 3.3 - 4.4 C [facility] Blood 12/21/2020 6:13 AM EDT 12/21/2020 6:36 AM EDT us Avni Bernard MD LAB BLOOD BKR ORDERABLES Final Result [facility] [address] [place] [address] from Last 3 Months or Most Recently Relevant to Health Maintenance Insurance [facility] MEDICARE REPLACEMENT MEDICARE REPLACEMENT MEDICARE REPLACEMENT MEDICARE REPLACEMENT [facility] MEDICARE REPLACEMENT [place] [id number] Advance Directives For more information, please contact: [phone] (9AM - 5PM [facility], Monday-Monday) * Full Code (Latest Code Status on File) Date Activated Date Inactivated Comments 06/26/2021 2:17 PM Question Answer Comments Code Status Confirmed With: Patient * Full Code Date Activated Date Inactivated Comments 12/20/2020 7:48 PM 06/26/2021 2:17 PM Question Answer Comments Code Status Confirmed With: Patient Care Teams Depositing Machine Operator Relationship Specialty Start Date End Date James Trimble MD [address] [place] [address] [address] [place] [address] PCP - General 03/16/17 Additional Source Comments The information contained in this document represents components of the legal health record. It is not the complete legal health record.[facility]
--- OUTSIDE RECORDS SUMMARY | 2025-02-25 20:23 | XMS_ITS | Encounter Summary ---
Author Organization [employer] Address [address] [facility] 7t [place] [address] Care Team Providers Care Community Development Officer Name Role Phone James Flores MD Primary Care Provide r Encounter Details Date Type Department Care Team (Late st Contact Info) Description 08/22/2022 Orders Only [facility] MED & PEDS [address] [place] [address] Jaja Hammond LPN Social History Tobacco Use [...] on filedocumented in this encounter Care Teams Community Development Officer Relationship Specialty Start Date End Date James Flores MD [address] [place] [address] PCP - General Internal Medicine 02/04/14 documented as of this encounter
--- OUTSIDE RECORDS SUMMARY | 2025-02-25 20:23 | XMS_ITS | Encounter Summary ---
Author Organization [employer] Address [address] 7[address] [place] [address] Care Team Providers Care Behavioral Health Specialist Name Role Phone James Flores MD Primary Care Provide r Reason for Visit * Reason Comments Med Refill Encounter Details Date Type Department Care Team ([facility] st Contact Info) Description 02/19/2025 Refill [facility] CHC MED & PEDS [address] [place] [address] James Flores MD [address] [place] [address] Mixed hyperlipidemia Social History Tobacco Use Types Packs/Day Years [...] as of this encounter Visit Diagnoses Diagnosis Mixed hyperlipidemia documented in this encounter Additional Health Concerns Assessment Noted Time PHQ-9 Depression Total Score: 0 01/30/20 24 10:37 AM EST documented as of this encounter Care Teams Behavioral Health Specialist Relationship Specialty Start Date End Date James lFores MD [address] [place] [address] PCP - General Internal Medicine 02/04/14 documented as of this encounter
--- OUTSIDE RECORDS SUMMARY | 2025-02-25 20:23 | XMS_ITS | Encounter Summary ---
Author Organization [employer] Address [address] 7t [place] [address] Care Team Providers Care Movie Shot Camera Operator Name Role Phone James Flores MD Primary Care Provide r Encounter Details Date Type Department Care Team (Late st Contact Info) Description 01/09/2023 Orders Only [facility] CHC MED & PEDS [address] [place] [address] Jaja Hammond LPN Social History Tobacco Use [...] on filedocumented in this encounter Care Teams Movie Shot Camera Operator Relationship Specialty Start Date End Date James Flores MD [address] [place] [address] PCP - General Internal Medicine 02/04/14 documented as of this encounter
--- OUTSIDE RECORDS SUMMARY | 2025-02-25 20:24 | XMS_ITS | Encounter Summary ---
Author Organization [employer] Address [address] [facility] 7t [place] [address] Care Team Providers Care Wooden Box Maker Name Role Phone James Flores MD Primary Care Provide r Reason for Visit * Reason Comments Med Refill Encounter Details Date Type Department Care Team (Late st Contact Info) Description 09/04/2023 Refill [facility] MED[facility]INE [address] [place] [address] Name, MD Loki [address] [place] [address] Gastroesophageal reflux disease without esophagitis Social History [...] t he electric, gas, oil or water [employer] threatened to shut off services in your [...] reflux documented in this encounter Care Teams Wooden Box Maker Relationship Specialty Start Date End Date James Flores MD [address] [place] [address] PCP - General Internal Medicine 02/04/14 documented as of this encounter
--- OUTSIDE RECORDS SUMMARY | 2025-02-25 20:24 | XMS_ITS | Encounter Summary ---
Author Organization [employer] Address [address] [facility] 7t [place] [address] Care Team Providers Care Farmworkers Name Role Phone James Flores MD Primary Care Provide r Reason for Visit * Reason Onset Date Comments Nurse Triage 03/18/2024 Encounter Details Date Type Department Care Team (Late st Contact Info) Description 03/18/2024 Telephone [facility] MEDICINE [address] [place] [address] James Flores MD [address] [place], [place] [phone] Nurse Triage Social History Tobacco Use Types [...] call with [facility] [place] [id number]. Pt reports continual coughing with cold symptoms. Pt was seen in [facility] 02/29/24 for cough and exacerbation of asthma. Pt reports has been using inhaler and nebulizer as prescribed though not every day. Pt denies having difficulty breathing. Pt requests to see provider again due to continuation of cough and cold symptoms neg for fever. Pt is advised to return to [facility] today open till 8pm and Pt agrees with this disposition. Pt is requesting what medication could be taken for cough , Pt is taking BPmedications and is advised to ask provider when seen in [facility] and Pt agrees. Insurance is verified asactive. [...] documented as of this encounter Care Teams Farmworkers Relationship Specialty Start Date End Date James Flores MD [address] [place] [address] PCP - General Internal Medicine 02/04/14 documented as of this encounter
--- OUTSIDE RECORDS SUMMARY | 2025-02-25 20:24 | XMS_ITS | Encounter Summary ---
Author Organization [employer] Address [address] 7[address] [place] [address] Care Team Providers Care Building Official Name Role Phone James Flores MD Primary Care Provide r Reason for Visit * Reason Comments Med Refill Encounter Details Date Type Department Care Team (Late st Contact Info) Description 05/10/2024 Refill [facility] [address] [place] [address] Coco Montiel NP [address] [place] [address] Mild intermittent asthma without complication Social History [...] documented as of this encounter Care Teams Building Official Relationship Specialty Start Date End Date James Flores MD [address] [place] [address] PCP - General Internal Medicine 02/04/14 documented as of this encounter
--- OUTSIDE RECORDS SUMMARY | 2025-02-25 20:24 | XMS_ITS | Encounter Summary ---
Author Organization [employer] Address [address] [facility] 7t [place] [address] Care Team Providers Care Naumkeag Operator Name Role Phone James Flores MD Primary Care Provide r Reason for Visit * Reason Onset Date Comments Durable Medical Equipment 09/27/2023 Encounter Details Date Type Department Care Team (Late st Contact Info) Description 09/27/2023 Telephone [facility] MEDICINE [address] [place] [address] James Flores MD 230 [place], [place] [phone] Durable Medical Equipment Social History Tobacco Use [...] 1 flip pillow DME Please contact at [phone] * Telephone Encounter - Fernando Christie - 09/27/2023 2:40 PM EDT Tc from pt 10 in 1 flip pillow due to issues sleeping. Pt would like script to be faxed to [facility]. If any questions you can contact pt at [phone]. documented in this encounter Plan of Treatment Not on file documented as of this encounter Visit Diagnoses Not on filedocumented in this encounter Care Teams Naumkeag Operator Relationship Specialty Start Date End Date James Flores MD [address] [place] [address] PCP - General Internal Medicine 02/04/14 documented as of this encounter
--- OUTSIDE RECORDS SUMMARY | 2025-02-25 20:24 | XMS_ITS | Clinical Summary ---
Author Organization [address] [facility] Address [address] [place] [address] Phone Care Team Providers Care Rn Operating Room Name Role Phone Ruchi Ayala MD Primary [...] AM EDT Office Visit [facility] [place] [address] [place] [phone] Nii Frias DPM Pain (Primary Dx); Closed [...] Group ID:[id number] Type:Not on file Address: [facility] [place] [id number] Care Teams Rn Operating Room Relationship Specialty Start Date End Date Ruchi Ayala MD [address] [phone] PCP - General Internal Medicine 11/05/24
--- OUTSIDE RECORDS SUMMARY | 2025-02-25 20:24 | XMS_ITS | Encounter Summary ---
Author Organization [employer] Address [address] [facility] 7t [place] [address] Care Team Providers Care Strip Mine Supervisor Name Role Phone James Flores MD Primary Care Provide r Encounter Details Date Type Department Care Team ([facility] st Contact Info) Description 02/21/2022 Abstract [facility] MEDICINE [address] [place] [address] James Flores MD [address] [place] [address] Social History Tobacco Use Types Packs/Day Years [...] on filedocumented in this encounter Care Teams Strip Mine Supervisor Relationship Specialty Start Date End Date James Flores MD [address] [place] [address] PCP - General Internal Medicine 02/04/14 documented as of this encounter
--- OUTSIDE RECORDS SUMMARY | 2025-02-25 20:24 | XMS_ITS | Encounter Summary ---
Author Organization [employer] Address [address] [facility] 7t [place] [address] Care Team Providers Care Maintenance Advisor Name Role Phone James Flores MD Primary Care Provide r Encounter Details Date Type Department Care Team (Late st Contact Info) Description 04/13/2022 Orders Only [facility] MEDICINE [address] [place], [place] [phone] April Olsen LPN Social History Tobacco Use [...] on filedocumented in this encounter Care Teams Maintenance Advisor Relationship Specialty Start Date End Date James Flores MD [address] [place] [address] PCP - General Internal Medicine 02/04/14 documented as of this encounter
--- OUTSIDE RECORDS SUMMARY | 2025-02-25 20:24 | XMS_ITS | Clinical Summary ---
Author Organization [employer] Address [address] [place] [address] Care Team Providers Care Silk Screen Repairer Name Role Phone James Flores MD Primary [...] the morning. 023 Active Calcium Citrate-Vitamin D ([place] Calcium/Vitamin D) 200-6.25 MG-MCG tablet TAKE 2 [...] CHANGE EVERY 14 DAYS Active Continuous Glucose Regulatory Attorney (FreeStyle [place]) device USE DIRECTED Active bisacodyl (Dulcolax) 10 [...] needed). 90 mL 3 Active nystatin (Mycostatin) 529584 UNIT/GM powderIndications :Tinea corporis Apply topically 2 [...] times daily. 1 kit 025 2025 Active clopidogrel (Plavix) 75 MG tablet TAKE 1 TABLET BY MOUTH EVERY EVENING 90 tablet 3 025 Active lidocaine (Lidoderm) 5 % patchIndications: [...] long-term current use of insulin (HCC) INJECT 6 TO 16 UNITS SUBCUTANEOUSLY DIRECTED [...] THE EVENING 90 tablet 1 025 Active Embecta Pen Needle Nneka 32G X 4 MM miscIndications:T ype 2 diabetes mellitus without complication, with long-term current use of insulin (HCC) USE DIRECTED FOUR TIMES DAILY 100 each 6 025 Active atorvastatin (Lipitor) 80 MG tabletIndications :Mixed hyperlipidemia TAKE 1 TABLET BY MOUTH AT BEDTIME 30 tablet 5 Active BD Pen Needle Nneka U/F 32G X 4 MM miscIndications:T ype 2 diabetes mellitus without complication, with long-term current use of insulin (HCC) USE DIRECTED FOUR TIMES DAILY 100 each 6 01/31/20 25 5:29 PM EST 025 2024 Discontinued atorvastatin (Lipitor) 80 MG tabletIndications :Mixed hyperlipidemia TAKE 1 TABLET BY MOUTH AT BEDTIME 30 tablet 5 025 2024 Discontinued Ferrous Sulfate (iron) 325 [...] to far out. Pt did see an Rotary Shear Operator that did not see any abnormalitites [...] to far out. Pt did see an Rotary Shear Operator that did not see any abnormalitites [...] to far out. Pt did see an Rotary Shear Operator that did not see any abnormalitites [...] acute injury to the right knee. 2. Mqyp-fr-zhggqfdn lateral compartment degenerative changes. Left: IMPRESSION: 1. [...] acute injury to the right knee. 2. Xirt-fd-iaqcruwr lateral compartment degenerative changes. Left: IMPRESSION: 1. [...] underwent Colpo with biopsies & ECC per GROUP MANAGER notes from 04/2017 Colonoscopy: 07/2022 Tubular adenoma repeat 3 years Vaccines: Flu shot: declines tdap: 05/31/2013 Dexa scan:. 04/28/2015 showed osteopenia Assessment & Plan (03/21/2024 9:20 AM EST): Routine physical exam today: within normal limits Mammogram: NL : 02/22/2023 Pap Smear: 06/27/2023: Normal In 11/24/2016 ASCUS with positive HPV. Pt underwent Colpo with biopsies & ECC per GROUP MANAGER notes from 04/2017 Colonoscopy: 07/2022 Tubular adenoma repeat 3 years Vaccines: Flu shot: tdap: 05/31/2013 Dexa scan:. 04/28/2015 showed osteopenia Assessment & Plan (01/30/2024 11:02 AM EST): Routine physical exam today: within normal limits Mammogram: NL : 02/22/2023 Pap Smear: 06/27/2023: Normal In 11/24/2016 ASCUS with positive HPV. Pt underwent Colpo with biopsies & ECC per GROUP MANAGER notes from 04/2017 Colonoscopy: 07/2022 Tubular adenoma repeat 3-5 years Vaccines: Flu shot: tdap: 05/31/2013 Dexa scan:. 04/28/2015 showed osteopenia Assessment & Plan (01/19/2023 1:43 PM EST): Mammogram: NL : 01/29/2021 Pap Smear: 11/24/2016 ASCUS with positive HPV. Pt underwent Colpo with biopsies & ECC per GROUP MANAGER notes from 04/2017 she was supposed [...] Hx of this Pt was admitted to [facility] from :12/31-12/22/2020 Patient presented to ED [...] Hx of this Pt was admitted to [facility] from :12/31-12/22/2020 Patient presented to ED [...] surgery Microalbumin checked on:06/21/2023 was: 216 Pt's operations specialist is thinking about reintroducing an ROMI inhibitor [...] Plan (01/31/2023 11:27 AM EST): Seen at [facility] 01/28/2023 with an asthma exacerbation Doing [...] disease and negative nuclear stress test at [facility] . Due to her Hx of [...] disease and negative nuclear stress test at [facility] . Due to her Hx of [...] disease and negative nuclear stress test at [facility] . Due to her recent CVA [...] disease and negative nuclear stress test at [facility] . Due to her recent CVA [...] Encounters Date Type Department Care Team Description 02/25/2025 Orders Only [facility] External Provider, [facility] 02/20/2025 Telephone [facility] [address] [place] [address] James Flores MD Derm appointment 02/19/2025 Refill [facility] [address] [place] [address] James Flores MD Mixed hyperlipidemia 02/17/2025 Orders Only [facility] External Provider, [facility] 02/14/2025 Refill [facility] [address] [place] [address] James Flores MD Type 2 diabetes mellitus without complication, with long-term current use of insulin (HCC) 02/12/2025 Orders Only [facility] DATA DEPARTMENT Provider, Generic External Data 01/24/2025 Refill [facility] [address] [place] [address] James Flores MD Chronic anemia 01/22/2025 Orders Only [facility] External Provider, [facility] 12/27/2024 Refill [facility] [address] [place] [address] James Flores MD Seasonal allergies 12/22/2024 Refill [facility] [address] [place] [address] James Flores MD 12/16/2024 Refill [facility] [address] [place] [address] James Flores MD Type 2 diabetes mellitus without complication, with long-term current use of insulin (HCC) 12/10/2024 9:15 AM EDT Office Visit [facility] [address] [place] [address] James Flores MD Type 2 diabetes mellitus with stage 3a chronic kidney disease, with long-term current use of insulin (CMS/HCC) (Primary Dx); Hypertension, unspecified type; CKD stage 3 secondary to diabetes (CMS/HCC); Coronary artery disease involving sun'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; Closed fracture of phalanx of left fifth toe with routine healing; Urinary incontinence, unspecified type; Hair loss; Temporal arteritis (CMS/HCC); Age-related osteoporosis without current pathological fracture; Preventative health care 12/10/2024 Orders Only GENERIC EXTERNAL DATA DEPARTMENT Provider, Generic External Data 12/10/2024 Travel 12/09/2024 Telephone [facility] [address] [place] [address] James Flores MD chart prep 11/27/2024 Refill [facility] [address] [place] [address] James Flores MD from Last 3 Months Immunizations Immunization Administration [...] history exists Depression Screening 01/29/2025 01/30/2024, 01/30/20 Diabetes: Hemoglobin [...] on patient's age to complete this topic Goals Goal Patient Goal Type Associated Problems Recent Progress Patient-Stated? Author Help patients manage their type 2 diabetes Care Plan Help patients manage their type 2 diabetes No Spring Preciado [place] Weekly blood pressure task Care Plan Weekly blood pressure task No Spring Preciado [place] Help patients manage their type 2 diabetes Care Plan Help patients manage their type 2 diabetes No Spring Preciado [place] Patient has chronic kidney disease Care Plan Patient has chronic kidney disease No Spring Preciado [place] Weekly blood pressure task Care Plan Weekly blood pressure task No Spring Preicado [place] Patient has chronic kidney disease Care Plan Patient has chronic kidney disease No Spring Preciado [place] Procedures Procedure Name Priority Date/Time Associated Diagnosis Comments XR LUMBAR SPINE 2-3 VIEWS Routine 02/25/2025 4:55 PM EST US RENAL COMPLETE Routine 02/17/2025 8:4 7 AM EST US RENAL DOPPLER Routine 02/17/2025 8:46 AM EST GLUCOSE, WHOLE BLOOD Routine 02/12/2025 10:19 AM [...] with long-term current use of insulin ([facility]) POCT GLYCOSYLATED HEMOGLOBIN (HGB A1C) Routine 12/10/2024 9:26 AM EDT Type 2 diabetes mellitus with stage 3a chronic kidney disease, with long-term current use of insulin ([facility]) HM MAMMOGRAPHY Routine 11/14/2024 10:06 AM EDT LIPID PANEL, STANDARD Routine 10/31/2024 10:27 AM EDT AMB REFERRAL TO OPHTHALMOLOGY Urgent 06/20/2024 Giant cell arteritis ([facility]/HCC) PAP SMEAR Routine 06/22/2023 3:20 PM EDT HM COLONOSCOPY Routine 07/11/2022 3:53 PM EDT ZZZ HISTORICAL HPV E6/E7 RFLX DANIAL 16 18/45 Routine 01/17/2022 4:22 PM EST from Last 3 Months or Most Recently Relevant to Health Maintenance Results * XR Lumbar Spine 2-3 Views (02/25/2025 4:55 PM EST) Only the most recent of2 resultswithin the time period is included. Anatomical Region Laterality Modality Spine, L-spine Radiographic Rena ging 02/25/2025 4:55 PM EST Narrative 02/25/2025 5:17 PM EST [address] [place] [address] XRay Report Signed Patient: Jayne Lane MR#: [id number] : 1955 Acct:[id number] Age/Sex: 69 / F ADM Date: 02/25/25 Loc: HO.ED Attending Dr: Ordering Physician: Domingo Elkins Date of Service: 02/25/25 Procedure(s): XR lumbar spine 2-3V Accession Number(s): [id number] cc: Domingo Elkins; James Trimble MD Reason [...] by: Karina Yanez MD 02/25/2025 05:15 PM [facility] Dictated By: Karina Yanez MD Signed By: <Electronically signed by Karina Yanez MD in OV> 02/25/25 1715 DD/ 1655 TD/TT: 02/25/25 1700 Tube Bender Hand: BHANU Procedure Note Donotuseinterpreter, Image - 02/25/[address] [address] XRay Report Signed Patient: Jayne LaneMR#: [id number] : 1955cct:[id number] Age/Sex: 69 / FADM Date: 02/25/25 Loc: HO.ED Attending Dr: Ordering Physician: Domingo Elkins Date of Service: 02/25/25 Procedure(s): XR lumbar spine 2-3V Accession Number(s): [id number] cc: Domingo Elkins; James Trimble MD Reason [...] signed by Karina Yanez MD in OV> 02/25/251714 DD/ 54 TD/TT: 02/25/25 1700 Tube Bender Hand: BHANU [facility] External Provider IMG XR PROCEDURES Edited Result - Final * US Renal Complete (02/17/2025 8:47 AM EST) Anatomical Region Laterality Modality Kidney Ultrasound 02/17/2025 8:47 AM EST Narrative 02/17/2025 9:33 AM EST [place] [address] Ultrasound Report Signed Patient: Jayne Lane MR#: [id number] : 1955 Acct:[id number] Age/Sex: 69 / F ADM Date: 02/17/25 Loc: HO.US Attending Dr: Matthias Nguyen MD Ordering Physician: Matthias Nguyen MD Date of Service: 02/17/25 Procedure(s): US renal BI Accession Number(s): [id number] cc: Matthias Nguyen MD; James Trimble MD Reason for Exam: N18.31 - Chronic kidney disease, stage 3a US RENAL DOPPLER HISTORY: Chronic kidney disease, stage 3A. Rule out renal artery stenosis. COMPARISON: US abdomen Doppler 06/28/2024. US kidney 06/16/2023. TECHNIQUE: Grayscale and color Doppler as well as spectral Doppler ultrasound examination of the kidneys was performed. Spectral Doppler examination of the aorta was also performed. RENAL MEASUREMENTS: Right: 9.4 x 3.4 x 4.5 cm (Sag x AP x TV); lobulated contour. Previously seen cysts are not well seen on today's exam. Left: 10.1 x 4.7 x 4.1 cm (Sag x AP x TV); lobulated contour. Normal sonographic appearance otherwise. No hydronephrosis. No suspicious masses. Spectral Doppler analysis: Right Kidney: -Peak systolic velocity in the proximal right renal artery = 73.1 cm/s. Normal waveforms. -Peak systolic velocity in the mid right renal artery = 120 cm/s. Normal waveforms. -Peak systolic velocity in the distal right renal artery = 115 cm/s. Normal waveforms. -Patent right renal vein. -Upper pole interlobar artery resistive index of 0.75. -Midpole interlobar artery resistive index of 0.65. -Lower pole interlobar artery resistive index of 0.61. RAR right = cannot be calculated. Left Kidney: -Peak systolic velocity in the proximal left renal artery = could not be well seen. -Peak systolic velocity in the mid left renal artery = 88.4 cm/s. Normal waveforms. -Peak systolic velocity in the distal left renal artery = 71.9 cm/s. Normal waveforms. -Patent left renal vein. -Upper pole interlobar artery resistive index of 0.66. -Mid pole interlobar artery resistive index of 0.78. -lower pole interlobar artery resistive index of 0.64. RAR left = cannot be calculated. Aorta: -Peak systolic velocity = 118 cm/s. US/US renal BI IMPRESSION: 1. No evidence of renal artery stenosis or abnormal waveforms bilaterally on color/spectral Doppler examination (based on peak systolic velocities and resistive indices). 2. Renal artery to aorta ratios could not be calculated, as the systolic velocity of the aorta was 118 cm/s. 3. Renal parenchyma is sonographically normal. Previously seen right renal cysts are not well seen on today's exam. Electronically signed by: Terry Ray MD 02/17/2025 09:30 AM [facility] Dictated By: Terry Ray MD Signed By: <Electronically signed by Terry Ray MD in OV> 02/17/2530 DD/ TD/TT: 02/17/2510 Tube Bender Hand: Procedure Note Donotcoleinterpreter, Image - 02/17/2025 [place] [address] Ultrasound Report Signed Patient: Jayne LaneMR#: [id number] : 6Acct:[id number] Age/Sex: 69 / FADM Date: 02/17/25 Loc: HO.US Attending Dr: Matthias Nguyen MD Ordering Physician: Matthias Nguyen MD Date of Service: 02/17/25 Procedure(s): US renal BI Accession Number(s): [id number] cc: Matthias Nguyen MD; James Trimble MD Reason for Exam: N18.31 - Chronic kidney disease, stage 3a US RENAL DOPPLER HISTORY: Chronic kidney disease, stage 3A. Rule out renal artery stenosis. COMPARISON: US abdomen Doppler 06/28/2024. US kidney 06/16/2023. TECHNIQUE: Grayscale and color Doppler as well as spectral Doppler ultrasound examination of the kidneys was performed. Spectral Doppler examination of the aorta was also performed. RENAL MEASUREMENTS: Right: 9.4 x 3.4 x 4.5 cm (Sag x AP x TV); lobulated contour. Previously seen cysts are not well seen on today's exam. Left: 10.1 x 4.7 x 4.1 cm (Sag x AP x TV); lobulated contour. Normal sonographic appearance otherwise. No hydronephrosis. No suspicious masses. Spectral Doppler analysis: Right Kidney: -Peak systolic velocity in the proximal right renal artery = 73.1 cm/s. Normal waveforms. -Peak systolic velocity in the mid right renal artery = 120 cm/s. Normal waveforms. -Peak systolic velocity in the distal right renal artery = 115 cm/s. Normal waveforms. -Patent right renal vein. -Upper pole interlobar artery resistive index of 0.75. -Midpole interlobar artery resistive index of 0.65. -Lower pole interlobar artery resistive index of 0.61. RAR right = cannot be calculated. Left Kidney: -Peak systolic velocity in the proximal left renal artery = could not be well seen. -Peak systolic velocity in the mid left renal artery = 88.4 cm/s. Normal waveforms. -Peak systolic velocity in the distal left renal artery = 71.9 cm/s. Normal waveforms. -Patent left renal vein. -Upper pole interlobar artery resistive index of 0.66. -Mid pole interlobar artery resistive index of 0.78. -lower pole interlobar artery resistive index of 0.64. RAR left = cannot be calculated. Aorta: -Peak systolic velocity = 118 cm/s. US/US renal BI IMPRESSION: 1. No evidence of renal artery stenosis or abnormal waveforms bilaterally on color/spectral Doppler examination (based on peak systolic velocities and resistive indices). 2. Renal artery to aorta ratios could not be calculated, as the systolic velocity of the aorta was 118 cm/s. 3. Renal parenchyma is sonographically normal. Previously seen right renal cysts are not well seen on today's exam. Electronically signed by: Terry Ray MD 02/17/2025 09:30 AM EST Dictated By: Terry Ray MD Signed By: <Electronically signed by Terry Ray MD in OV> 02/17/2530 DD/ TD/TT: 02/17/25 0910 Tube Bender Hand: us [facility] External Provider IMG US PROCEDURES Edited Result - Final * US RENAL DOPPLER (02/17/2025 8:46 AM EST) Anatomical Region Laterality Modality Abdomen Ultrasound 02/17/2025 8:46 AM EST Narrative 02/17/2025 9:33 AM EST [address] [address] Ultrasound Report Signed Patient: Jayne Lane MR#: [id number] : 1955 Acct:[id number] Age/Sex: 69 / F ADM Date: 02/17/25 Loc: HO.US Attending Dr: Matthias Nguyen MD Ordering Physician: Matthias Nguyen MD Date of Service: 02/17/25 Procedure(s): US renal doppler Accession Number(s): [id number] cc: Matthias Nguyen MD; James Trimble MD Reason for Exam: N18.31 - Chronic kidney disease, stage 3a US RENAL DOPPLER HISTORY: Chronic kidney disease, stage 3A. Rule out renal artery stenosis. COMPARISON: US abdomen Doppler 06/28/2024. US kidney 06/16/2023. TECHNIQUE: Grayscale and color Doppler as well as spectral Doppler ultrasound examination of the kidneys was performed. Spectral Doppler examination of the aorta was also performed. RENAL MEASUREMENTS: Right: 9.4 x 3.4 x 4.5 cm (Sag x AP x TV); lobulated contour. Previously seen cysts are not well seen on today's exam. Left: 10.1 x 4.7 x 4.1 cm (Sag x AP x TV); lobulated contour. Normal sonographic appearance otherwise. No hydronephrosis. No suspicious masses. Spectral Doppler analysis: Right Kidney: -Peak systolic velocity in the proximal right renal artery = 73.1 cm/s. Normal waveforms. -Peak systolic velocity in the mid right renal artery = 120 cm/s. Normal waveforms. -Peak systolic velocity in the distal right renal artery = 115 cm/s. Normal waveforms. -Patent right renal vein. -Upper pole interlobar artery resistive index of 0.75. -Midpole interlobar artery resistive index of 0.65. -Lower pole interlobar artery resistive index of 0.61. RAR right = cannot be calculated. Left Kidney: -Peak systolic velocity in the proximal left renal artery = could not be well seen. -Peak systolic velocity in the mid left renal artery = 88.4 cm/s. Normal waveforms. -Peak systolic velocity in the distal left renal artery = 71.9 cm/s. Normal waveforms. -Patent left renal vein. -Upper pole interlobar artery resistive index of 0.66. -Mid pole interlobar artery resistive index of 0.78. -lower pole interlobar artery resistive index of 0.64. RAR left = cannot be calculated. Aorta: -Peak systolic velocity = 118 cm/s. US/US renal doppler IMPRESSION: 1. No evidence of renal artery stenosis or abnormal waveforms bilaterally on color/spectral Doppler examination (based on peak systolic velocities and resistive indices). 2. Renal artery to aorta ratios could not be calculated, as the systolic velocity of the aorta was 118 cm/s. 3. Renal parenchyma is sonographically normal. Previously seen right renal cysts are not well seen on today's exam. Electronically signed by: Terry Ray MD 02/17/2025 09:30 AM EST Dictated By: Terry Ray MD Signed By: <Electronically signed by Terry Ray MD in OV> 02/17/25929 DD/ 5 TD/TT: 02/17/2510 Tube Bender Hand: Procedure Note Donotuseinterpreter, Image - 02/17/[address] [address] Ultrasound Report Signed Patient: Jayne LaneMR#: [id number] : 6Acct:[id number] Age/Sex: 69 / FADM Date: 02/17/25 Loc: HO.US Attending Dr: Matthias Nguyen MD Ordering Physician: Matthias Nguyen MD Date of Service: 02/17/25 Procedure(s): US renal doppler Accession Number(s): [id number] cc: Matthias Nguyen MD; James Trimble MD Reason for Exam: N18.31 - Chronic kidney disease, stage 3a US RENAL DOPPLER HISTORY: Chronic kidney disease, stage 3A. Rule out renal artery stenosis. COMPARISON: US abdomen Doppler 06/28/2024. US kidney 06/16/2023. TECHNIQUE: Grayscale and color Doppler as well as spectral Doppler ultrasound examination of the kidneys was performed. Spectral Doppler examination of the aorta was also performed. RENAL MEASUREMENTS: Right: 9.4 x 3.4 x 4.5 cm (Sag x AP x TV); lobulated contour. Previously seen cysts are not well seen on today's exam. Left: 10.1 x 4.7 x 4.1 cm (Sag x AP x TV); lobulated contour. Normal sonographic appearance otherwise. No hydronephrosis. No suspicious masses. Spectral Doppler analysis: Right Kidney: -Peak systolic velocity in the proximal right renal artery = 73.1 cm/s. Normal waveforms. -Peak systolic velocity in the mid right renal artery = 120 cm/s. Normal waveforms. -Peak systolic velocity in the distal right renal artery = 115 cm/s. Normal waveforms. -Patent right renal vein. -Upper pole interlobar artery resistive index of 0.75. -Midpole interlobar artery resistive index of 0.65. -Lower pole interlobar artery resistive index of 0.61. RAR right = cannot be calculated. Left Kidney: -Peak systolic velocity in the proximal left renal artery = could not be well seen. -Peak systolic velocity in the mid left renal artery = 88.4 cm/s. Normal waveforms. -Peak systolic velocity in the distal left renal artery = 71.9 cm/s. Normal waveforms. -Patent left renal vein. -Upper pole interlobar artery resistive index of 0.66. -Mid pole interlobar artery resistive index of 0.78. -lower pole interlobar artery resistive index of 0.64. RAR left = cannot be calculated. Aorta: -Peak systolic velocity = 118 cm/s. US/US renal doppler IMPRESSION: 1. No evidence of renal artery stenosis or abnormal waveforms bilaterally on color/spectral Doppler examination (based on peak systolic velocities and resistive indices). 2. Renal artery to aorta ratios could not be calculated, as the systolic velocity of the aorta was 118 cm/s. 3. Renal parenchyma is sonographically normal. Previously seen right renal cysts are not well seen on today's exam. Electronically signed by: Terry Ray MD 02/17/2025 09:30 AM EST Dictated By: Terry Ray MD Signed By: <Electronically signed by Terry Ray MD in OV> 02/17/25929 DD/ 0846 TD/TT: 02/17/25 0910 Tube Bender Hand: us [facility] External Provider IMG US PROCEDURES Edited Result - Final * (ABNORMAL) Glucose, Whole Blood (02/12/2025 10:19 AM EST) Glucose, Whole Blood 163(H) 60 - 115 mg/dL [facility] Comment:METER #: [id number] 0Testing performed in the Endocrinology Department [address] , [address], [facility]. 02/12/2025 10:1 9 AM EST 02/12/2025 10:23 AM EST us Generic External Data Provider LAB BLOOD ORDERAB LES Final Result Performing Organization Address City/State/[facility] Co de Phone Number [facility] [address] [place] [phone] * NM heart perfusion SPECT stress and rest (01/22/2025 11:53 AM EST) Anatomical Region Laterality Modality Body Nuclear Medicine 01/22/2025 11:5 3 AM EST Narrative 01/23/2025 3:58 PM EST [address] [address] Nuclear Medicine Report Signed Patient: Jayne aLne MR#: [id number] : 1955 Acct:[id number] Age/Sex: 69 / F ADM Date: 01/22/25 Loc: HO.CARD Attending Dr: Rohan Singh MD Ordering Physician: Rohan Singh MD Date of Service: 01/22/25 Procedure(s): NM mata perf SPECT rest str Accession Number(s): [id number] cc: James Trimble MD; Rohan Singh MD [...] by: Ger Anderson MD 01/23/2025 03:55 PM [facility] Dictated By: Ger Anderson MD Signed By: <Electronically signed by Ger Anderson MD in OV> 01/23/25 1555 DD/ 1153 TD/TT: 01/23/25 1435 Tube Bender Hand: Procedure Note Donotuseinterpreter, Image - 01/23/2025 [place] [address] Nuclear Medicine Report Signed Patient: Jayne LaneMR#: [id number] : 6Acct:[id number] Age/Sex: 69 / FADM Date: 01/22/25 Loc: .[facility] Attending Dr: Rohan Singh MD Ordering Physician: Rohan Singh MD Date of Service: 01/22/25 Procedure(s): NM mata perf SPECT rest str Accession Number(s): [id number] cc: James Trimble MD; Rohan Singh MD [...] by: Ger Anderson MD 01/23/2025 03:55 PM [facility] Dictated By: Ger Anderson MD Signed By: <Electronically signed by Ger Anderson MD in OV> 01/23/25 1555 DD/ 1153 TD/TT: 01/23/25 1435 Tube Bender Hand: [facility] External Provider IMG NM PROCEDURES Final Result * XR Shoulder 2+ Views Left (12/31/2024 4:24 PM EDT) Anatomical Region Laterality Modality Upper Extremities, Shoulder Left Radi ographic Imaging 12/31/2024 4:24 PM EDT Narrative 12/31/2024 4:33 PM EDT [address] [address] XRay Report Signed Patient: Jayne Lane MR#: [id number] : 1955 Acct:[id number] Age/Sex: 69 / F ADM Date: 12/31/24 Loc: HO.ED Attending Dr: Ordering Physician: Patrick Borrego Date of Service: 12/31/24 Procedure(s): XR shoulder LT min 2V Accession Number(s): [id number] cc: James Trimble MD; Patrick oBrrego Reason for Exam: pain EXAMINATION: XR SHOULDER, [...] Karina Yanez MD 12/31/2024 04:31 PM EDT Dictated By: Karina Yanez MD Signed By: <Electronically signed by Karina Yanez MD in OV> 12/31/24 1631 DD/ 1624 TD/TT: 12/31/24 1625 Tube Bender Hand: BHANU Procedure Note Donotuseinterpreter, Image - 12/31/[address] [address] XRay Report Signed Patient: Jayne LaneMR#: [id number] : 1955cct:[id number] Age/Sex: 69 / FADM Date: 12/31/24 Loc: HO.ED Attending Dr: Ordering Physician: Patrick Borrego Date of Service: 12/31/24 Procedure(s): XR shoulder LT min 2V Accession Number(s): [id number] cc: James Trimble MD; Patrick Borrego Reason [...] 12/31/24 1631 DD/ 1624 TD/TT: 12/31/24 1625 Tube Bender Hand: BHANU [facility] External Provider IMG XR PROCEDURES Final Result * Immunofixation (SONIA), Urine (12/10/2024 2:42 PM EDT) SONIA Interpretation [facility] Comment:No monoclonal protei ns detected.THIS TEST WAS PERFORMED AT:[email or web address] [place] [phone] CHAND MD 12/10/2024 2:42 PM EDT 12/10/2024 4:05 PM EDT Generic External Data Provider LAB URINE ORDERAB LES Final Result [facility] [address] [place] [phone] * Vitamin D, 25-Hydroxy, Total, Immunoassay (12/10/2024 9:50 AM EDT) Vitamin D 25-OH Total 47.1 >30 ng/mL [facility] Comment: Health Based Reference Values*< 20 ng/mL Ltjsjyycb28-35 ng/mL Insufficient> 30 ng/mL Sufficient*Altagracia GOODWIN. N [...] LES Final Result [facility] [address] [place] [phone] * TSH with Reflex to Free T4 (12/10/2024 9:50 AM EDT) TSH reflex Free T4 1.76 0.32 - 4.0 uIU/mL [facility] Blood Venous blood specimen / Unknown 12/10/2024 9:50 AM EDT 12/10/2024 11:50 AM EDT us James Ashraf MD LAB BLOOD ORDERABLES Final Result [facility] [address] [place] [phone] * (ABNORMAL) Creatinine, Serum (12/10/2024 9:50 AM EDT) Creatinine, Serum 1.48(H) 0.5 - 1.4 mg/dL [facility] Estimated Glomerular Filt Rate 35 [facility] Comment:Chronic Kidney Disea se: Estimated GFR < 60 mL/min/1.55x7Xicmft Kidney Disease: Estimated GFR < 15 mL/min/1.73m2 12/10/2024 9:50 AM EDT 12/10/2024 11:50 AM EDT Generic External Data Provider LAB BLOOD ORDERAB LES Final Result Performing Organization Address [facility] Phone Number [facility] [address] [place] [phone] * Immunofixation, Serum (12/10/2024 9:50 AM EDT) IMMUNOGLOBULIN G 851 600 - 1540 mg/dL [facility] IMMUNOGLOBULIN A 196 70 - 320 mg/dL [facility] Immunoglobulin M 75 50 - 300 mg/dL [facility] Comment:THIS TEST WAS PERFOR MED AT:[email or web address] [place] [phone] CHAND MD Immunofixation Result SEE NOTE [facility] Comment:Normal pattern. No m onoclonal proteins detected. 12/10/2024 9:50 AM EDT 12/10/2024 11:50 AM EDT us Generic External Data Provider LAB BLOOD ORDERAB LES Final Result Performing Organization Address [facility] Phone Number [facility] [address] [place] [phone] * (ABNORMAL) BUN (Blood Urea Nitrogen) (12/10/2024 9:50 AM EDT) Urea Nitrogen (BUN) 25(H) 9 - 16 mg/dL [facility] 12/10/2024 9:50 AM EDT 12/10/2024 11:50 AM EDT us Generic External Data Provider LAB BLOOD ORDERAB LES Final Result Performing Organization Address [facility] Phone Number [facility] [address] [place] [phone] * PTH, Intact Without Calcium (12/10/2024 9:50 AM EDT) Parathyroid Hormone, Intact 71.3 8.7 - 77.1 pg/mL [facility] 12/10/2024 9:50 AM EDT 12/10/2024 11:50 AM EDT us Generic External Data Provider LAB BLOOD ORDERAB LES Final Result Performing Organization Address [facility] de Phone Number [facility] [address] [place] [phone] * Calcium (12/10/2024 9:50 AM EDT) Calcium 9.5 8.4 - 10.2 mg/dL [facility] 12/10/2024 9:50 AM EDT 12/10/2024 11:50 AM EDT Generic External Data Provider LAB BLOOD ORDERAB LES Final Result Performing Organization Address [facility] de Phone Number [facility] [address] [place] [phone] * (ABNORMAL) Electrolyte Panel (12/10/2024 9:50 AM EDT) Sodium 144 135 - 145 mmol/L [facility] Potassium 4.9 3.3 - 5.1 mmol/L [facility] Chloride 109(H) 96 - 108 mmol/L [facility] Carbon Dioxide 29 22 - 29 mmol/L [facility] Anion Gap 11(L) 12 - 20 [facility] 12/10/2024 9:50 AM EDT 12/10/2024 11:50 AM EDT Generic External Data Provider LAB BLOOD ORDERAB LES Final Result [facility] [address] [place] [phone] * (ABNORMAL) POCT glucose manually resulted (12/10/2024 9:27 AM EDT) Glucose Blood, POC 8.5(A) 60 - 200 mg/dL [employer] Lot # [id number] Lot# Expiration Date 2, Blood Capillary blood specimen / Unknown 12/10/2024 9:27 AM EDT James Ashraf MD POINT OF CARE TEST ENTER/EDIT ORDERABLES Edited Result - Final * (ABNORMAL) POCT glycosylated hemoglobin (Hgb A1c) (12/10/2024 9:26 AM EDT) Hemoglobin A1C 255.0(A) 4.0 - 5.7 % [employer] Lot # [id number] Lot# Expiration Date ,[id number] Blood Capillary blood specimen / Unknown 12/10/2024 9:26 AM EDT James Ashraf MD POINT OF CARE TEST EN TER/EDIT ORDERABLES Final Result * Mammography (11/14/2024 10:06 AM EDT) HM Mammogram BIRADS 1 Normal, Abnormal, BIRADS 1 , BIRADS 2 Comment:follow up 1 year Anatomical Region Laterality Modality Other Historical Provider HEALTH MAINTENANCE Final Result * Lipid Panel, Standard (10/31/2024 10:27 AM EDT) Triglycerides 126 <150 mg/dL [facility] Comment:Desirable Triglyceri de: less than 150 mg/dLBorderline High Triglyceride 150-199 mg/dLHigh Triglyceride: 200-499 mg/dLVery High Triglyceride: greater than or equal to 5OO mg/dL Cholesterol 139 <200 mg/dL [facility] Comment:Desirable Cholestero l: less than 200 mg/dLBorderline High Cholesterol: 200-239 mg/dLHigh Cholesterol: greater than 239 mg/dL LDL Cholesterol Calculated 71 <100 mg/dL [facility] Comment:Desirable LDL: less than 100 mg/dLNear Optimal/Above Optimal LDL: 110- 129 mg/dLBorderline High LDL: 130-159 mg/dLHigh LDL: 160-189 mg/dLVery High LDL: greater than or equal to 190 mg/dL HDL Cholesterol 43 >40 mg/dL [facility] Comment:Desirable HDL: great er than 40 mg/dL Note: This HDL assay may give artificially low results in patients with liver disease. 10/31/2024 10:2 7 AM EDT 10/31/2024 11:25 AM EDT Generic External Data Provider LAB BLOOD ORDERAB LES Final Result [facility] [address] [place] [phone] * Referral to Ophthalmology (06/20/2024) Ludwin Sylvester MD OUTPATIENT REFERRAL ORDERABLES F inal Result * Pap Smear (06/22/2023 3:20 PM EDT) 06/22/2023 3:20 PM EDT 06/27/2023 11:15 AM EDT Narrative [facility] - 07/11/2023 2:16 PM EDT ----- ------- Name: Jayne Lane Age/Sex: 68/F : 1955 Unit#: [id number] Attend Dr: Opal Carranza CNM Re06/22/23 Status: DEP REF Location: [facility] Disch: ----- ------- SPEC : [id number] RECD: 06/27/23-1115 STATUS: RAMANJustin RICCO NUM: [id number] CYRUS: 06/22/23-[address] [facility] DR: Opal Carranza CNM ENTERED: [...] 59, 66, 68) HPV testing performed by [facility], [place], [place]. See reference laboratory portion of the EMR for entire report. Clinical Information LMP: Menopause Previous PAP test: 02/01, Abnormal Other surgery:03/30 colpo DELPHINE I Other history: 2015 +HPV ACUS, 07/29 +HPV Material Received ThinPrep-Cervical Copies To: James Trimble MD [address] [place] [address] [phone] Opal Carranza CNM [address] [place] [address] ----- ------- Signed (signature on file) Ev [place] 07/11/23 1416 ----- ------- END OF REPORT us Generic External Data Provider LAB CYTOLOGY RAINERE RABLES Final Result [facility] [address] [place] [phone] * Colonoscopy (07/11/2022 3:53 PM EDT) Pathologist [facility] Colonoscopy Normal Normal Comment:Tubular adenoma Historical Provider HEALTH MAINTENANCE Final Result * HPV E6/E7 RFLX DANIAL 16 18/45 (01/17/2022 4:22 PM EST) Pathologist [facility] HPV 16 RNA TNP CONVERTED [employer] HPV 18/45 RNA TNP CONVER [employer] HPV E6 E7 ADD TNP CONVER [employer] HPV mRNA E6/E7 rflx Not Detected Not Detected CONVERTED [employer] Comment: Methodology: Consumer Loan Specialist-Mediated Amplification This assay detects E6/E7 viral messenger RNA (mRNA) from 14 high-risk HPV types (16,18,31,33,35,39,45,51,52,56,58,59,66,68). Cervical sources are required for HPV testing. If a vaginal source from a patient who has had a total hysterectomy with removal of cervix was submitted, please contact the testing laboratory for alternative testing options. For additional information, please refer to http://education.[employer]/faq/LEH961z8 (This link if provided for information/ educational purposes only.) THIS TEST WAS PERFORMED AT: [email or web address] [address] [place] [address] [address],[place] [phone] KEVEN CHAND MD 01/17/2022 4:22 PM EST us Opal Carranza HISTORICAL/NON ORDERABLE LABS Fi nal Result CONVERTED [facility]GACY LABS from Last 3 Months or Most Recently Relevant to Health Maintenance Additional Health Concerns Active Problems Noted Date Diagnosed Date Help patients manage their type 2 diabetes 02/20 Weekly blood pressure task 02/20/2025 Help patients manage their type 2 diabetes 02/20 Patient has chronic kidney disease 02/20/2025 Weekly blood pressure task 02/20/2025 Patient has chronic kidney disease 02/20/2025 Insurance [facility] (HMO D-SNP) [place] [id number] Care Teams Silk Screen Repairer Relationship Specialty Start Date End Date James Flores MD [address] [place] [phone] PCP - General Internal Medicine 02/04/14
--- OUTSIDE RECORDS SUMMARY | 2025-02-25 20:24 | XMS_ITS | Encounter Summary ---
Author Organization [employer] Address [address] [facility] 7t [place] [address] Care Team Providers Care Counter Supervisor Name Role Phone James Flores MD Primary Care Provide r Encounter Details Date Type Department Care Team ([facility] st Contact Info) Description 01/11/2024 Telephone [facility] [address] [place], [place] [phone] James Flores MD [address] [place], [place] [phone] Social History Tobacco Use Types Packs/Day Years [...] filedocumented in this encounter Care Teams Counter Supervisor Relationship Specialty Start Date End Date James Flores MD [address] [place] [phone] PCP - General Internal Medicine 02/04/14 documented as of this encounter
--- OUTSIDE RECORDS SUMMARY | 2025-02-25 20:24 | XMS_ITS | Encounter Summary ---
Author Organization [employer] Address [address] [facility] 7t [place] [address] Care Team Providers Care Stock Broker Name Role Phone James Flores MD Primary Care Provide r Encounter Details Date Type Department Care Team (Late st Contact Info) Description 05/11/2022 Telephone [facility] [address] [place], [place] [phone] James Flores MD [address] [place] [address] Social History Tobacco Use Types Packs/Day Years [...] on filedocumented in this encounter Care Teams Stock Broker Relationship Specialty Start Date End Date James Flores MD [address] [place], [place] [phone] PCP - General Internal Medicine 02/04/14 documented as of this encounter
--- OUTSIDE RECORDS SUMMARY | 2025-02-25 20:24 | XMS_ITS | Encounter Summary ---
Author Organization [employer] Address [address] [facility] 7t [place] [address] Care Team Providers Care Manager Secondary Name Role Phone James Flores MD Primary Care Provide r Encounter Details Date Type Department Care Team (Late st Contact Info) Description 03/17/2022 Orders Only [facility] [address] [place], [place] [phone] Jaja Hammond LPN Social History Tobacco Use [...] filedocumented in this encounter Care Teams Manager Secondary Relationship Specialty Start Date End Date James Flores MD [address] [place] [address] PCP - General Internal Medicine 02/04/14 documented as of this encounter
--- OUTSIDE RECORDS SUMMARY | 2025-02-25 20:24 | XMS_ITS | Encounter Summary ---
Author Organization [facility] Address [address] [facility] [address] [place] [address] Phone Care Team Providers Care Tram Inspector Name Role Phone James Trimble MD Primary Care Provide r Encounter Details Date Type Department Care Team (Late st Contact Info) Description 12/21/2020 Procedure [facility] [address] [place] [address] Social History Tobacco Use Types Packs/Day Years [...] AM EDT Trey Cardona i, RN * Barnes Suicide Severity Rating Scale (Screener/Recent Self-Report) Question [...] Description 03/11/2025 1:00 PM EST Office Visit [facility] [address] [place] [address] Irina Looney, DO [address] [facility], [address] [place] [address] [email or web address] Cristi Nelson [address] [place] [address] [email or web address] documented as of this encounter Visit Diagnoses [...] documented as of this encounter Care Teams Tram Inspector Relationship Specialty Start Date End Date James Trimble MD [address] [place] [address] [place] [phone] PCP - General 03/16/17 documented as of this encounter Additional Source Comments The information contained in this document represents components of the legal health record. It is not the complete legal health record.[facility]
--- OUTSIDE RECORDS SUMMARY | 2025-02-25 20:24 | XMS_ITS | Encounter Summary ---
Author Organization [employer] Address [address] [facility] 7t [place] [address] Care Team Providers Care Master Steam Yacht Name Role Phone James Flores MD Primary Care Provide r Reason for Visit * Reason Onset Date Comments Durable Medical Equipment 07/30/2024 Encounter Details Date Type Department Care Team (Late st Contact Info) Description 07/30/2024 Telephone [facility] [address] [place] [phone] James Flores MD [address] [place] [address] Durable Medical Equipment Social History Tobacco Use [...] documented as of this encounter Care Teams Master Steam Yacht Relationship Specialty Start Date End Date James Flores MD [address] [place] [phone] PCP - General Internal Medicine 02/04/14 documented as of this encounter
--- OUTSIDE RECORDS SUMMARY | 2025-02-25 20:24 | XMS_ITS ---
Author Name Mr. Arlen Márquez Address [address] [place] [address] Phone [phone] [facility] Care Team Providers Care Manager Analysis Name Role Phone Micah Judge Unavailable [phone] Reason for Referral Not Available Allergies, adverse [...] 2021-11-04 No Data Available [employer] [id number] Miscellaneous TEST BLOOD SUGAR THREE OR FOUR [...] of Service Diagnosis/Co mplaint No Data Available [facility] 07/12/2022 Type 2 diabetes mellitus wit h diabetic chronic kidney diseaseChronic kidney disease, stage 3bLong term (current) use of insulinMorbid (severe) obesity due to excess caloriesBody mass index (BMI) 40.0-44.9, adultOther specified health statusConstipation, unspecifiedProblems related to health literacyPrsnl hx of TIA (TIA), and cereb infrc w/o resid deficits No Data Available [facility] 07/12/2022 No Data Available [facility] 07/12/2022 No Data Available [facility] 07/12/2022 No Data Available [facility] 07/12/2022 No Data Available [facility] 07/12/2022 No Data Available [facility] 07/22/2022 Morbid (severe) obesity due to excess caloriesBody mass index (BMI) 40.0-44.9, adultType 2 diabetes mellitus with diabetic chronic kidney diseaseChronic kidney disease, stage 3bPrsnl hx of TIA (TIA), and cereb infrc w/o resid deficitsOther specified health status No Data Available [facility] 07/22/2022 Vital Signs Date of Collection Vitals 2022-07-12 11:38:39 Height - 147.32 cmWe ight - 87.09 kgBody Mass Index (BMI) - 40.13 kg/m2 Social History Sex Female History of Procedures Procedures Service Procedure code Service date Servicing provider Phone# No Data Available [id number] 2022-07-12 No Data Available No Data Available [...] le No Data Available No Data Available [id number] 2022-07-22 No Data Available No Data Available [...]
--- OUTSIDE RECORDS SUMMARY | 2025-02-25 20:24 | XMS_ITS | Encounter Summary ---
Author Organization [employer] Address [address] [facility] 7t [place] [address] Care Team Providers Care Cook Helper Pastry Name Role Phone James Flores MD Primary Care Provide r Reason for Visit * Reason Comments Med Refill Encounter Details Date Type Department Care Team (Late st Contact Info) Description 08/27/2023 Refill [facility] [address] [place] [address] Name, MD Loki [address] [place] [address] Gastroesophageal reflux disease without esophagitis Social History [...] t he electric, gas, oil or water [employer] threatened to shut off services in your [...] reflux documented in this encounter Care Teams Cook Helper Pastry Relationship Specialty Start Date End Date James Flores MD [address] [place] [phone] PCP - General Internal Medicine 02/04/14 documented as of this encounter
== END 2025-02-25 18:48 | disposition home or self-care (01) ==
PROVIDERS: Emergency Provider Emergency Medicine; PCP Internal Medicine
DX: M54.30 Sciatica, unspecified side (principal); M54.9 Dorsalgia, unspecified; I12.9 Hypertensive chronic kidney disease with stage 1 through stage 4 chronic kidney disease, or unspecified chronic kidney disease; E11.22 Type 2 diabetes mellitus with diabetic chronic kidney disease; N18.9 Chronic kidney disease, unspecified; D64.9 Anemia, unspecified; Z86.73 Personal history of transient ischemic attack (TIA), and cerebral infarction without residual deficits; Z79.899 Other long term (current) drug therapy
CPT/HCPCS: 72100; 96372; 99282; 99284; J1100; J1171

== ENCOUNTER → 2025-02-25 16:36 | Outpatient (BNV) | payer OTHER, SELFPAY | PROVIDERS: Emergency Provider Emergency Medicine; PCP Internal Medicine; Visit Provider Radiology Diagnostic Radiology | DX: M51.360 Other intervertebral disc degeneration, lumbar region with discogenic back pain only (principal) | CPT/HCPCS: 72100 ==